=== PATIENT | male | born 1960 | race Hispanic/Latino ===

== ENCOUNTER 2018-06-17 16:48 | Inpatient (IN) | payer OTHER ==
[~2018-06-17] VITALS: Ht 172.7 cm; Wt 66.2 kg
--- OUTSIDE RECORDS SUMMARY | 2018-06-17 16:51 | XMS REPORT | Encounter Summary ---
Author Organization Unknown Address [address] [place] [address] Phone [phone] Care Team Providers Care Playground Director Name Role Phone Dr. Kiran Hernandez 3 [phone] Reason for Visit fatigue; shortness of breath; swelling/edema; sleep problems Instructions 1. Acute exacerbation of chronic congestive heart failure 2. Anasarca 3. Type II diabetes mellitus uncontrolled 4. Hypertensive disorder Discussion Note: None recorded. Patient educational handouts: No information available. Plan of Care Reminders Provider Appointments None recorded. Lab None recorded. Referral None recorded. Procedures None recorded. Surgeries None recorded. Imaging None recorded. Medications Name Start Date amlodipine 10 mg tablet Take 1 tablet every day by oral route. lisinopril 10 mg tablet Take 1 tablet every day by oral route. lisinopril 20 mg-hydrochlorothiazide 25 mg tablet Take 1 tablet every day by oral route. metoprolol succinate ER 25 mg tablet,extended release 24 hr Take 1 tablet every day by oral route. Medications Administered None recorded. Vitals Height Weight BMI Blood Pressure 5 ft 8.3 in 160.8 lbs 24.2 kg/m2 (1) 170/94 mm[Hg] (2) 186/104 mm[Hg] Lab Results None recorded. Allergies Code Code System Name Reaction Severity Status Onset NKDA Problems Name Status Onset Date Source Type II Diabetes Mellitus Uncontrolled Active 06/17/2018 Hypertensive Disorder Active 06/17/2018 Congestive Heart Failure Active 06/17/2018 History of Alcohol Abuse Active 06/17/2018 Procedures Date Name Performed by Amputation of Toe Information not available Vaccine List None recorded. Social History Smoking Status Former Smoker Past Encounters 06/17/2018 Acute Exacerbation of Chronic Congestive Heart Failure; Anasarca; Type II Diabetes Mellitus Uncontrolled; Hypertensive Disorder Kiran Garduno MD: [address] [place] [address], Ph. History of Present Illness Note:Coming to establish care. Hx of HTN, not taking meds since 1 year ago. Complaining of SOB sitting, with activity and lying down. Concomitantly, nocturnal cough, fatigue, LE edema, abdominal distention and lightheadedness. Hx of dm, not taking meds. Review of Systems Comprehensive General Adult ROS Reported By: Patient Constitutional: Constitutional: no fever Eyes: Eyes: no vision change Cardiovascular: Cardiovascular: no chest pain, no arm pain on exertion, no palpitations, shortness of breath when walking, shortness of breath when lying down, lightheadedness Respiratory: Respiratory: no wheezing, cough Gastrointestinal: Gastrointestinal: no abdominal pain, no nausea, no vomiting, no constipation, no diarrhea Musculoskeletal: Musculoskeletal: swelling in the extremities Neurologic: Neurologic: no loss of consciousness, no headaches Endocrine: Endocrine: fatigue Physical Exam General Adult Exam (male) Reported By: Patient Constitutional: General Appearance: ; Generalized pallor. Level of Distress: mild distress. Ambulation: ambulating normally Eyes: Lids and Conjunctivae: non-injected, no discharge. EOM: EOMI ENMT: Nose: no sinus tenderness. Lips, Teeth, and Gums: no mouth or lip ulcers. Oropharynx: moist mucous membranes Neck: Neck: supple, trachea midline. Thyroid: no enlargement, non-tender Lungs: Auscultation: decreased breath sounds Cardiovascular: Heart Auscultation: RRR, normal S1, normal S2, no murmurs, gallop. Neck vessels: no carotid bruits. Pulses including femoral / pedal: diminished Abdomen: Inspection and Palpation: soft, no tenderness, no guarding, distended Musculoskeletal:: Extremities: edema Neurologic: Gait and Station: normal gait
--- OUTSIDE RECORDS SUMMARY | 2018-06-17 16:51 | XMS REPORT | Clinical Summary ---
Author Author [facility] Organization [facility] Address Unknown Phone Unavailable Care Team Providers Care Psychiatric Technician Assistant Name Role Phone Eber Bryant MD PCP Allergies Comments Active Allergy Reactions Severity Noted Date No Known Drug Allergies 11/10/2015 Medications No known medications Active Problems Problem Noted Date Diabetic foot ulcer 09/24/2015 Chronic osteomyelitis of right foot 09/24/2015 Diabetes mellitus type II, controlled 09/24/2015 Cellulitis of foot without toes, right 09/24/2015 Immunizations Name Dates Previously Given Next Due Pneumococcal Conjugate 10/03/2015 13-Valent Family History Medical History Relation Name Comments Diabetes type II Brother Hypertension Brother Diabetes type II Mother Relation Name Status Comments Brother Mother Social History Date Tobacco Use Types Packs/Day Years Used Never Smoker Alcohol Use Drinks/Week oz/Week Comments Yes 3-4 Cans of 1.8 - 2.4 beer Sex Assigned at Date Recorded Not on file Industry Job Start Date Occupation Not on file Not on file Not on file Travel End Travel History Travel Start No recent travel history available. Last Filed Vital Signs Not on file Plan of Treatment Health Maintenance Due Date Last Done Comments DIABETIC RETINAL EYE EXAM 1960 DIABETIC FOOT EXAM 12/04/1969 COLON CANCER SCREENING 12/04/2009 SHINGLES VACCINES (1 of 12/04/2009 2) INFLUENZA VACCINE 11/28/2017 Results Not on fileafter 06/16/2017 Insurance Payer Benefit Subscriber ID Type Phone Address Plan / Group BCBS EXCHANGE BLUE xxxxxxxxxxxx Exchange ADVANTAGE HMO EXCH Liability Advance Directives Patient has advance care planning documents, and code status on file. For more i nformation, please contact: Keith Arteaga [address] [place] [address] Date Inactivated Comments Code Status Date Activated 10/03/2015 5:05 PM Full Code 09/24/2015 11:04 PM Code Status decision reached by: Patient
--- OUTSIDE RECORDS SUMMARY | 2018-06-17 16:51 | XMS REPORT | Clinical Summary ---
Author Author [facility] Organization [facility] Address Unknown Phone Unavailable Care Team Providers Care Electric Brain Wave Equipment Mechanic Name Role Phone Eber Bryant PCP Unavailable Allergies Not on File Medications Not on file Active Problems Not on file Social History Date Tobacco Use Types Packs/Day Years Used Never Assessed Sex Assigned at Date Recorded Not on file Industry Job Start Date Occupation Not on file Not on file Not on file Travel End Travel History Travel Start No recent travel history available. Last Filed Vital Signs Not on file Plan of Treatment Not on file Results Not on fileafter 06/16/2017 Insurance Payer Benefit Subscriber ID Type Phone Address Plan / Group BLUE CROSS/BLUE SHIELD BCBS ADV xxxxxxxxxxxx [phone] [address] [place] [address] EXCHANGE
[2018-06-17 19:12] LABS: BILIRUBIN,URINE NEGATIVE (NEGATIVE); CLARITY,URINE SL CLOUDY (CLEAR); COLOR,URINE YELLOW (YELLOW); KETONES,URINE NEGATIVE (NEGATIVE); LEUKOCYTE ESTERASE ,URINE NEGATIVE (NEGATIVE); NITRITE,URINE NEGATIVE (NEGATIVE); PROTEIN,URINE DIPSTICK 2+ (NEGATIVE); URINE UROBILINOGEN 0.2 mg/dL (0.2 - 1)
[2018-06-17 19:29] LABS: BACTERIA,URINE MODERATE /HPF; EPITHELIAL CELLS,URINE MODERATE /LPF
[2018-06-17 19:30] LABS: AMORPHOUS SEDIMENT,URINE MANY (FEW)
--- NOTE | 2018-06-17 20:44 | Diagnostic Imaging Report ---
EXAMINATION: CHEST SINGLE (PORTABLE) INDICATION: High blood sugar. COMPARISON: None FINDINGS: AP view TUBES and LINES: None. LUNGS: Lungs are moderately inflated. Bibasilar atelectasis and/or consolidation. There is perihilar interstitial opacities, consistent with interstitial edema. PLEURA: Moderate right and small left pleural effusion. HEART AND MEDIASTINUM: The cardiomediastinal silhouette is unremarkable. BONES AND SOFT TISSUES: No acute osseous lesion. Soft tissues are unremarkable. UPPER ABDOMEN: No free air under the diaphragm. IMPRESSION: Fluid overload with central pulmonary venous congestion and small bilateral pleural effusions, right greater than left. Bibasilar atelectasis and/or consolidation. Signed by: Dr. Alon Anderson M.D. on 06/17/2018 8:40 PM
[2018-06-17] MEDS ORDERED: FUROSEMIDE INJ 10 MG/ML 4 ML VIAL IV ONE (21:45)
[2018-06-17 22:08] LABS: BASOPHILS # (AUTO) 0.1 (0.0-0.1); EOSINOPHILS # (AUTO) 0.1 (0.0-0.4); EOSINOPHILS % 2.5 % (0.0-6.0); HEMATOCRIT 29.8 % (38.2-49.6); HEMOGLOBIN 9.6 g/dL (14.0-18.0); LYMPHOCYTES # (AUTO) 0.9 (1.0-3.2); MEAN CORPUSCULAR HEMOGLOBIN 28.8 pg (28-32); MEAN CORPUSCULAR HGB CONC 32.2 g/dL (31-35); MEAN CORPUSCULAR VOLUME 89.5 fL (81-99); MONOCYTES # (AUTO) 0.4 (0.2-0.8); MONOCYTES % 7.4 % (4.4-11.3); NEUTROPHILS # (AUTO) 3.7 (2.1-6.9); NEUTROPHILS % 71.7 % (38.7-80.0); PLATELET COUNT 174 x10e3/uL (140-360); RED BLOOD COUNT 3.33 x10e6/uL (4.3-5.7); RED CELL DISTRIBUTION WIDTH 14.8 % (11.7-14.4)
[2018-06-17 22:16] LABS: INR 0.96; PROTHROMBIN TIME 13.7 seconds (11.9-14.5)
[2018-06-17 22:17] LABS: PARTIAL THROMBOPLASTIN TIME 35.6 seconds (23.8-35.5)
[2018-06-17 22:24] LABS: ALBUMIN 2.8 g/dL (3.5-5.0); ALBUMIN/GLOBULIN RATIO 0.8 (0.8-2.0); ANION GAP 21.3 mmol/L (8-16); CREATININE, SERUM 9.78 mg/dL (0.72-1.25); POTASSIUM 4.3 mmol/L (3.5-5.1)
[2018-06-17 22:28] LABS: CALCIUM 6.8 mg/dL (8.4-10.2)
[2018-06-17] MEDS ORDERED: HYDRALAZINE HCL 20 MG/ML VIAL IV STA (22:29)
[2018-06-17 22:30] LABS: CREATINE KINASE MB 7.3 ng/mL (0-5.0)
[2018-06-17] MEDS ORDERED: FUROSEMIDE INJ 100 MG in SODIUM CHLORIDE 0.9% 100 ML 90 ML IV SCH (23:00)
[2018-06-17] MEDS ORDERED: ONDANSETRON HCL INJ 2MG/ML 2ML 2 MG/ML VIAL IV PRN (23:00)
[2018-06-17] MEDS ORDERED: DEXTROSE 50% SYRINGE 50 ML IV PRN (23:00)
--- OUTSIDE RECORDS SUMMARY | 2018-06-17 23:02 | XMS REPORT | Clinical Summary ---
Author Author [facility] Organization [facility] Address Unknown Phone Unavailable Care Team Providers Care Data Systems Analyst Name Role Phone Eber Bryant MD PCP [...] more i nformation, please contact: Keith Arteaga [address] [place] [address] Date Inactivated Comments Code Status Date Activated 10/03/2015 5:05 PM Full Code 09/24/2015 11:04 PM Code Status decision reached by: Patient
--- OUTSIDE RECORDS SUMMARY | 2018-06-17 23:02 | XMS REPORT | Clinical Summary ---
Author Author [facility] Organization [facility] Address Unknown Phone Unavailable Care Team Providers Care Youth Officer Name Role Phone Eber Bryant PCP Unavailable [...] Group BLUE CROSS/BLUE SHIELD BCBS ADV xxxxxxxxxxxx [phone] [address] [place] [address] EXCHANGE
--- OUTSIDE RECORDS SUMMARY | 2018-06-17 23:02 | XMS REPORT ---
Author Author [facility] Address Unknown Phone Unavailable Care Team Providers Care General Office Clerk Name Role Phone [place] FRIEND Unavailable Unavailable Problems This patient has no known problems. Allergies, Adverse Reactions, Alerts This patient has no known allergies or adverse reactions. Medications This patient has no known medications. Results Test Description Test Time Test Comments Text Results Atomic Results Result Comments CHEST SINGLE (PORTABLE) 2018-06-17 20:40:00 [facility] [address] [address] Patient Name: JOSHUA CACERES MR #: [id number] : 1960 Age/Sex: 57/M Req #: [id number] Adm Physician: Ordered by: DANYELLE ALVAREZ SEMICONDUCTOR PACKAGE SYMBOL STAMPER Report #: [id number] Location: ER Room/Bed: Procedure: [id number] DX/CHEST SINGLE (PORTABLE) Exam Date: 06/17/18 Exam Time: 2022 REPORT STATUS: Signed EXAMINATION: CHEST SINGLE (PORTABLE) INDICATI ON: High blood sugar. COMPARISON: None FINDINGS: AP view TUBES and LINES: None. LUNGS: Lungs are moderately inflated. Bibasilar atelectasis and/or consolidation. There is perihilar interstitial opacities, consistent with interstitial edema. PLEURA: Moderate right and small left pleural effusion. HEART AND MEDIASTINUM: The cardiomediastinal silhouette is unremarkable. BONES AND SOFT TISSUES: No acute osseous lesion. Soft tissues are unremarkable. UPPER ABDOMEN: No free air under the diaphragm. IMPRESSION: Fluid overload with central pulmonary venous congestion and small bilateral pleural effusions, right greater than left. Bibasilar atelectasis and/or consolidation. Signed by: Dr. Catrina Anderson M.D. on 06/17/2018 8:40 PM Dictated By: CATRINA ANDERSON MD 39 Transcribed By: LOREE on 06/17/182039 COPY TO: DANYELLE ALVAREZ SEMICONDUCTOR PACKAGE SYMBOL STAMPER
[2018-06-17] MEDS ORDERED: FUROSEMIDE INJ 10 MG/ML 2 ML VIAL ONE (23:12)
[2018-06-17] MEDS ORDERED: FUROSEMIDE INJ 10 MG/ML 4 ML VIAL ONE (23:12)
[2018-06-17] MEDS ORDERED: SODIUM CHLORIDE 0.9% 100 ML ONE (23:12)
[2018-06-18] MEDS ORDERED: no home meds (02:23)
[2018-06-18] MEDS: HYDRALAZINE HCL 20 MG/ML VIAL IV PRN ×2 (02:30→12:52)
[2018-06-18] MEDS ORDERED: FUROSEMIDE INJ 10 MG/ML 4 ML VIAL ONE (02:34)
[2018-06-18] MEDS ORDERED: SODIUM CHLORIDE 0.9% 100 ML ONE (02:34)
[2018-06-18] MEDS ORDERED: FUROSEMIDE INJ 10 MG/ML 2 ML VIAL ONE (02:34)
[2018-06-18 05:14] LABS: BASOPHILS % 0.7 % (0.0-1.0); EOSINOPHILS # (AUTO) 0.1 (0.0-0.4); HEMATOCRIT 26.9 % (38.2-49.6); HEMOGLOBIN 8.8 g/dL (14.0-18.0); LYMPHOCYTES # (AUTO) 0.5 (1.0-3.2); LYMPHOCYTES % 12.1 % (18.0-39.1); MEAN CORPUSCULAR HGB CONC 32.7 g/dL (31-35); MEAN CORPUSCULAR VOLUME 88.8 fL (81-99); MONOCYTES # (AUTO) 0.3 (0.2-0.8); MONOCYTES % 7.6 % (4.4-11.3); NEUTROPHILS # (AUTO) 3.5 (2.1-6.9); NEUTROPHILS % 77.4 % (38.7-80.0); PLATELET COUNT 161 x10e3/uL (140-360); RED BLOOD COUNT 3.03 x10e6/uL (4.3-5.7); RED CELL DISTRIBUTION WIDTH 14.4 % (11.7-14.4)
[2018-06-18 05:29] LABS: CALCIUM IONIZED 0.9 mmol/L (1.09-1.30)
[2018-06-18 05:47] LABS: ALBUMIN 2.5 g/dL (3.5-5.0); ALBUMIN/GLOBULIN RATIO 0.9 (0.8-2.0); ANION GAP 19.3 mmol/L (8-16); CREATININE, SERUM 9.75 mg/dL (0.72-1.25); POTASSIUM 4.3 mmol/L (3.5-5.1)
[2018-06-18 05:49] LABS: CALCIUM 6.6 mg/dL (8.4-10.2)
--- NOTE | 2018-06-18 06:48 | NUR ---
RECEIVED REPORT FROM OFF GOING NURSE. PATIENT IN ROOM IN BED, RESTING QUIETLY WITH EYES CLOSED. EASILY ARROUSED TO NAME. ESCALANTE IN PLACE DRAINING TO BEDSIDE CONTAINER. IV FLUIDS ORDERED. NO S/S OF ACUTE DISTRESS. NO C/O PAIN. PENDING ROOM ASSIGNEMNT. WILL CONTINUE TO MONITOR.
[2018-06-18] MEDS: INSULIN REGULAR, HUMAN 100 UNIT/1 ML 3ML VIAL SQ SCH ×4 (07:42→21:35)
[2018-06-18] MEDS: CLONIDINE HCL 0.1 MG TAB PO SCH ×3 (08:21→21:35)
--- NOTE | 2018-06-18 10:21 | NUR ---
consent for tunneled dialysis catheter signed and placed in chart. report called to receiving nurse for room 112. spoke with labor arbitrator hearing office nurse, they will be here to last picker patient for dialysis cath placement then transport to room 112.
[2018-06-18] MEDS: FUROSEMIDE INJ 100 MG in SODIUM CHLORIDE 0.9% 100 ML 90 ML IV SCH ×2 (10:39→15:34)
[2018-06-18] MEDS ORDERED: HEPARIN SOD (PORCINE) 1000 UNIT/ML 30ML ONE (11:16)
[2018-06-18] MEDS ORDERED: IOPAMIDOL 300MG/ML 50ML INFUS..BTL IV ONE (11:17)
[2018-06-18] MEDS ORDERED: SODIUM CHLORIDE 0.9% 500ML 500 ML ONE (11:17)
[2018-06-18] MEDS ORDERED: MIDAZOLAM HCL 2 MG/2 ML VIAL ONE (11:22)
[2018-06-18] MEDS ORDERED: FENTANYL CITRATE/PF 100MCG/2 ML INJ ONE (11:22)
--- NOTE | 2018-06-18 12:45 | NUR ---
Received patient from optical laboratory manager. Patient A/O X3, ukrainian speaking. Even respirations on RA. Bowel sounds active, skin intact. 2+ Pitting edema BLE. Echavarria in place with pale yellow urine. Right AC 20 gauge IV with Lasix drip 20 mls/hr. Patient is ambulatory with standby assist. Call light in reach, will continue to monitor.
[2018-06-18 12:57] VITALS: BP 167/85
[2018-06-18 12:59] VITALS: BP 167/85
[2018-06-18 13:04] VITALS: BP 167/85
--- NOTE | 2018-06-18 14:43 | Diagnostic Imaging Report ---
PROCEDURE: PLACEMENT OF RIGHT IJ TUNNELED HEMODIALYSIS CATHETER WITH ULTRASOUND AND FLUOROSCOPIC GUIDANCE INDICATION: Need for dialysis access. OPERATORS: Amber Mitchell MD RADIATION EXPOSURE: Fluoroscopy Time: 0.6 minutes Dose area product (DAP): 66.5 cGycm2 CONSENT: The patient was informed of the nature of the proposed procedure. The purposes, alternatives, risks, and benefits were explained and discussed. All questions were answered and written consent was obtained. ANESTHESIA: Moderate sedation. Continuous hemodynamic monitoring was performing by interventional nursing MEDICATIONS: 15 cc of 1% subcutaneous lidocaine 50 mcg IV Fentanyl and 1 mg IV Versed per nursing administration records. TECHNIQUE: The patient was brought to the angiography suite, and the right neck and upper chest were prepped and draped in standard sterile fashion. All elements of maximal sterile barrier technique were followed including cap and mask, sterile gown, sterile gloves, large sterile sheet, hand hygiene and 2% chlorhexidine for cutaneous antisepsis. Pre-procedure time-out confirmed the patient identity and the procedure to be performed. Ultrasound demonstrated that the right internal jugular was patent and compressible. Using standard sterile technique, 1 % lidocaine was administered subcutaneously for local anesthesia. Under continuous sonographic guidance, the right internal jugular vein was accessed using a 21 G micropuncture needle. Permanent ultrasound image was stored. The access needle was exchanged for a 5 Fr micropuncture sheath. An 0.035'' Amplatz wire was advanced into the IVC to secure access. The venotomy site was dilated. Appropriate measurements were made using the 7 Fr dilator. Attention was then turned towards the subcutaneous tunnel. After administration of 1% lidocaine subcutaneously for local anesthesia, a 16 Fr x 23 cm Hemosplit hemodialysis catheter was tunneled in an antegrade direction from skin exit site to venotomy site. The dilator was exchanged for the peel-away sheath under direct fluoroscopic visualization. The catheter was then advanced through the peel-away sheath into the superior vena cava. After confirming appropriate position with fluoroscopy the catheter tip in the proximal right atrium, the peel-away sheath was removed, and both lumens aspirated, check flushed, and terminally flushed with 2 cc each of heparin solution (1000 units/cc of heparin). The catheter was secured using 3-0 Ethilon pursestring suture at the catheter exit site and also 3-0 Ethilon sutures at the catheter hub. The venotomy site was closed with subcutaneous Vicryl suture, Dermabond, and steri-strips. Sterile dressings were applied. The patient tolerated the procedure well. FINDINGS: 1. Patent and compressible right IJV accessed with continuous ultrasound guidance. 2. Placement of 16 Fr x 23 cm tunneled right IJV hemodialysis catheter. 3. Post-procedure intraprocedural chest radiograph showed the catheter tip in the proximal right atrium, no kinks along course of catheter, and no pneumothorax. Catheter is ready for use. IMPRESSION: Placement of right IJ tunneled hemodialysis catheter. Catheter is ready for immediate use. Signed by: Dr. Amber Mitchell MD on 06/18/2018 2:40 PM
[2018-06-18 16:00] VITALS: BP 150/79
[2018-06-18 16:52] LABS: % IRON SATURATION 6 % (15-50); IRON 17 ug/dL (65-175); TOTAL IRON BINDING CAPACITY 309 ug/dL (261-478); TRANSFERRIN 221 mg/dL (174-364)
--- NOTE | 2018-06-18 17:46 | NUR ---
Patient left for CT.
[2018-06-18] MEDS: SODIUM BICARBONATE 650 MG TAB PO SCH (18:28)
[2018-06-18] MEDS: FUROSEMIDE 40 MG TAB PO SCH (18:28)
--- NOTE | 2018-06-18 18:28 | Diagnostic Imaging Report ---
EXAM: CT Chest WITHOUT contrast INDICATION: ^SOB/PLEURAL EFFUSION COMPARISON: Chest x-ray 06/17/2018. Tunneled dialysis catheter replacement 06/18/2018. TECHNIQUE: Chest was scanned utilizing a multidetector helical scanner from the lung apex through the level of the adrenal glands without administration of IV contrast. Absence of intravenous contrast decreases sensitivity for detection of lymphadenopathy and vascular pathology. Coronal and sagittal reformations were obtained. Routine protocol was performed. IV CONTRAST: None COMPLICATIONS: None RADIATION DOSE: Total DLP: 644.97 mGy*cm Estimated effective dose: (DLP x 0.014 x size factor) mSv CTDIvol has been reviewed. It is below the limits set by the Radiation Protocol Committee (RPC). FINDINGS: LINES/ TUBES: Right IJ dialysis catheter. LUNGS AND AIRWAYS: Bilateral lower lobe atelectasis. Mild involvement of the lingula and right middle lobe. Airways are normal. PLEURA: A large right and moderate left simple pleural effusions. HEART AND MEDIASTINUM: The thyroid gland is normal. No mediastinal, hilar or axillary lymphadenopathy. The heart is normal in size. There is no pericardial effusion. There are mild atherosclerotic calcifications in the aorta and coronary arteries. Mild air in the right atrium. UPPER ABDOMEN: The esophagus and stomach is distended with food products. Questionable gallstones. Otherwise, upper abdomen is unremarkable. BONES: The visualized bony thorax is within normal limits. SOFT TISSUES: Unremarkable. IMPRESSION: 1. Large right and moderate left pleural effusions with associated atelectasis. 2. Esophagus and stomach are distended with food products. 3. Mild air in the right atrium, likely related to recent line placement. Signed by: Dr. Alon Anderson M.D. on 06/18/2018 6:25 PM
[2018-06-18] MEDS: CEFTRIAXONE SOD 1 GM/NS 50 ML 50 ML IV SCH (18:51)
[2018-06-18 20:00] VITALS: BP 149/81
[2018-06-18 21:35] VITALS: BP 149/81
[2018-06-19] VITALS (7 sets, daily range): BP systolic 142–191; BP diastolic 70–92
--- NOTE | 2018-06-19 00:27 | Consultation ---
DATE OF CONSULTATION: 06/18/2018 HISTORY OF PRESENT ILLNESS: This is a 57-year-old gentleman who recently started seeing Dr. Hancock, sent in here because of worsening lower extremity swelling and abnormal kidney function. The patient has diabetes for at least 10 years or more. According to him, has a history of hypertension. Denies any history of BPH or kidney stone disease. He denies any drug allergies. Denies taking any regular pain medications. 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 He does not smoke or drink. He has a strong family history of diabetes. Here, laboratory test shows evidence of anemia, hemoglobin 8.8, potassium 4.3, bicarbonate 12, calcium 6.6, BNP more than 5000 with a bicarbonate of 12. Urinalysis shows dip stick positive protein, 11-20 rbc, 0 wbc. CURRENT MEDICATIONS: The patient is on ceftriaxone 1 g q.24 hours. He received Lasix injection, on clonidine 0.1 mg p.o. t.i.d. He is on hydralazine p.r.n. PHYSICAL EXAMINATION: GENERAL: Awake, alert, lying supine, in no apparent distress. VITAL SIGNS: Blood pressure 165/79, pulse rate 80, respiratory rate 14, and afebrile. HEAD AND NECK: Cornea clear. Mucosa moist. LUNGS: Decreased air entry in both bases with impaired percussion notes and scattered rales. HEART: S1 and S2 audible. Soft 2-3/6 ejection systolic murmur heard over left sternal border. EXTREMITIES: Lower extremity examination shows 2+ edema. IMPRESSION AND PLAN: Advance kidney failure, now end-stage renal disease, evidence of congestive heart failure, underlying diabetic hypertensive nephropathy status post tunneled dialysis catheter placement. Renal replacement therapy discussed with the patient. He agrees to start dialysis. Son is present at bedside. He agrees as well. Bedside nurse present at bedside. We will have a case management consult. We will start p.o. bicarbonate and Lasix. We will ultrafilter on dialysis. He has had severe hypocalcemia, we will obtain intact PTH levels, start Tums and Rocaltrol. The patient's blood test shows all the stigmata of chronic kidney disease. We will also obtain iron profile, hepatitis B, phosphorus level. Further recommendations to follow. MD MICAH Graff/BRIT /[id number]
--- NOTE | 2018-06-19 01:12 | History and Physical ---
CHIEF COMPLAINT: Pulmonary edema, end-stage renal disease, required dialysis and initiation of dialysis. HISTORY: This is a 57-year-old male with diabetes, chronic kidney disease now end stage, hypertension, and the patient also has peripheral vascular disease with a right fifth toe amputation previously, came in with pulmonary edema. Apparently, he stopped all his medications for quite sometime and now came in with increasing shortness of breath. The patient workup done in emergency room preliminarily, found that he has fluid overload with central venous pulmonary congestion and small bilateral effusion as well. The patient is admitted for further evaluation and consultation with Dr. Gerson Rivas for initiation of dialysis. His BUN and creatinine were 71 and 9.8 respectively. The patient also has low calcium level. His BNP is greater than 5000. PAST MEDICAL HISTORY: Diabetes type 2, hypertension, chronic kidney disease now end stage, and peripheral vascular disease. The patient is noncompliant. PAST SURGICAL HISTORY: As above. SOCIAL HISTORY: The patient does not smoke or use alcohol. No recreational drugs. ALLERGIES: NO KNOWN ALLERGIES. HOME MEDICATIONS: None. PHYSICAL EXAMINATION: VITAL SIGNS: Temperature is 98, blood pressure 167/85, pulse rate 73, and respirations 22. GENERAL: The patient HEENT: Normocephalic and atraumatic. Anicteric. NECK: Supple grossly. PULMONARY: Diminished breath sounds bilaterally with rales at the bases. CARDIOVASCULAR: S1 and S2. Regular rate and rhythm. ABDOMEN: Soft, nontender, and nondistended. EXTREMITIES: There is 1+ edema. NEUROLOGIC: No focal deficit. LABORATORY DATA: Sodium is 137, potassium 4.3, chloride 107, bicarb 13, BUN is 71, creatinine , glucose is 94, and calcium is 6.8. AST 10, ALT 13, and alkaline phosphatase 105. Troponin 0.065. BNP is greater than 5000. Albumin is 2.8. WBC is 5.1, hemoglobin is 8.8, hematocrit 26.9, and platelets are 161. Urinalysis, wbc's none, moderate bacteria, 2+ protein, 1+ blood, and negative leukocyte esterase. Coagulation, INR and PTT is 35.6. Chest x-ray, pulmonary edema, bilateral pleural effusion. IMPRESSION: 1. Bilateral pleural effusion with pulmonary edema and fluid overload secondary to end-stage renal disease. 2. End-stage renal disease with BUN and creatinine of 71 and respectively. The patient is also anemic. The patient will need dialysis. PLAN: Consultation with Dr. Gerson Rivas. Echocardiogram. We will consult for pleural effusion. The patient will require dialysis on this admission. We will also subsequently consult pillowcase turner for dialysis placement. MD HOWARD Silva/HAIL /[id number]
[2018-06-19 06:05] LABS: BASOPHILS % 0.7 % (0.0-1.0); EOSINOPHILS # (AUTO) 0.2 (0.0-0.4); EOSINOPHILS % 4.1 % (0.0-6.0); HEMOGLOBIN 7.7 g/dL (14.0-18.0); LYMPHOCYTES # (AUTO) 0.7 (1.0-3.2); LYMPHOCYTES % 15.6 % (18.0-39.1); MEAN CORPUSCULAR HEMOGLOBIN 28.8 pg (28-32); MEAN CORPUSCULAR HGB CONC 32.1 g/dL (31-35); MEAN CORPUSCULAR VOLUME 89.9 fL (81-99); MONOCYTES # (AUTO) 0.4 (0.2-0.8); MONOCYTES % 8.8 % (4.4-11.3); NEUTROPHILS # (AUTO) 3.1 (2.1-6.9); NEUTROPHILS % 70.3 % (38.7-80.0); PLATELET COUNT 144 x10e3/uL (140-360); RED BLOOD COUNT 2.67 x10e6/uL (4.3-5.7); RED CELL DISTRIBUTION WIDTH 14.8 % (11.7-14.4)
[2018-06-19] MEDS: FUROSEMIDE 40 MG TAB PO SCH ×2 (06:22→17:11)
[2018-06-19 06:30] LABS: INR 1.06; PROTHROMBIN TIME 14.8 seconds (11.9-14.5)
[2018-06-19 06:42] LABS: ALBUMIN 2.2 g/dL (3.5-5.0); ALBUMIN/GLOBULIN RATIO 0.9 (0.8-2.0); ANION GAP 17.6 mmol/L (8-16); CREATININE, SERUM 9.67 mg/dL (0.72-1.25); POTASSIUM 4.6 mmol/L (3.5-5.1)
[2018-06-19 06:57] LABS: CALCIUM 6.7 mg/dL (8.4-10.2)
--- NOTE | 2018-06-19 07:12 | Diagnostic Imaging Report ---
EXAMINATION: PA and lateral views of the chest. COMPARISON: CT chest 06/18/2018 CLINICAL HISTORY: Evaluate pleural effusions DISCUSSION: Interval decrease in now moderate right and small left pleural effusions relative to 06/18/2018. Stable position of right IJ tunneled hemodialysis catheter with the tip projecting over the upper right atrium. No new consolidations. No pneumothorax. Cardiomediastinal contour and pulmonary venous congestion are unchanged. No acute osseous abnormalities. IMPRESSION: Decreased pleural effusions relative to CT chest 06/18/2018. Persistent pulmonary venous congestion. Signed by: Dr. John Berrios M.D. on 06/19/2018 7:09 AM
--- NOTE | 2018-06-19 07:25 | NUR ---
CALLED [phone] VAHID ORTIZ, REPORTED PATIENT'S LOW CALCIUM, ANSWERING SERVICE STATED, "IF DOES CALL BACK IN 30 MINUTES TO CALL BACK."
[2018-06-19] MEDS: INSULIN REGULAR, HUMAN 100 UNIT/1 ML 3ML VIAL SQ SCH ×4 (07:30→21:13)
[2018-06-19] MEDS ORDERED: SODIUM CHLORIDE 0.9% 1000ML 2,000 ML ONE (07:32)
[2018-06-19] MEDS ORDERED: HEPARIN SOD (PORCINE) 1000 UNIT/ML SDV IV PRN (07:45)
[2018-06-19] MEDS ORDERED: SODIUM CHLORIDE 0.9% 1000ML 2,000 ML IV PRN (07:45)
[2018-06-19] MEDS ORDERED: MANNITOL 25% 12.5GM/50 ML VIAL IV PRN (08:15)
[2018-06-19] MEDS: CLONIDINE HCL 0.1 MG TAB PO SCH ×3 (10:06→21:12)
[2018-06-19] MEDS: SODIUM BICARBONATE 650 MG TAB PO SCH ×2 (10:06→17:11)
--- NOTE | 2018-06-19 12:36 | NUR ---
CASE MANAGEMENT ASSESSMENT Air Battle Manager to bedside to discuss plan of care with patient/family. CM/SW role and care transitions discussed. Anticipated discharge plan discussed along with duration of care. CM/SW discussed patients right to make decisions in care. CM/SW work hours given. Patient lives: alone Admit/Transfer: thru ED; sent from his PCP office Hospital/ER visits since last admit: states was last hospitalized 2 years ago POA/Emergency contact: Billie Portillo [phone] Current/Previous Home Health: none PCP/Follow-up Care: Dr. Kiran Hernandez - PCP; advised pt to follow up with MD within 7 days of discharge Current/Previous DME: none Medications (referring to index hospitalization or the first time you were in the hospital) a. Were changes made in your medications when you were in the hospital on [index hospitalization]? n/a b. Did you understand the changes? n/a c. Were you able to obtain your new medications right away? n/a d. Were you able to take your medications like the doctor wanted you to? n/a e. Did the hospital give you an accurate, easy to understand list of medications when you left? 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 Name and number was also written on the patients whiteboard. Patient verbalized understanding of discussion. CM will follow-up with ongoing discharge and transition of care needs.
--- NOTE | 2018-06-19 13:12 | NUR ---
PT SIGNED CHOICE FOR [facility] FILED IN CHART AND FAXING TO ADMISSION LINE.
--- NOTE | 2018-06-19 13:17 | NUR ---
NOTIFIED DR. FAUSTIN THAT PT HAS A PRELIMINARY ECHOCARDIOGRAM OF 35%, AND ASKED IF HE WANTED TO CONSULT ANYONE, HE STATED "NO".
--- NOTE | 2018-06-19 13:26 | NUR ---
SPOKE WITH ROXIE AT [facility], SHE IS HOLDING A CHAIR FOR PT. WILL SEND CONFIRMATION WHEN RUN BENEFITS.
--- NOTE | 2018-06-19 16:17 | Diagnostic Imaging Report ---
PROCEDURE: CHEST XRAY POST PROCEDURE COMPARISON: [facility], DX, CHEST 2 VIEWS, 06/19/2018, 6:29. INDICATIONS: POST THORACENTESIS FINDINGS: LUNGS: Bibasilar opacities likely secondary to atelectasis. PLEURA: Tiny right-sided apical pneumothorax. Significant decrease in the size of the right pleural effusion. There is a mild-moderate left pleural effusion. HEART & MEDIASTINUM: The heart is within normal size-limits. Acceptable position of the tunneled hemodialysis catheter. BONES & SOFT TISSUES: No acute findings. The patient's nurse, Tray Boyd was informed of these findings at the time of interpretation. CONCLUSION: 1. Significant decrease in size of the right pleural effusion; status post thoracentesis. 2. Tiny right apical pneumothorax; followup chest x-ray in 4 hours recommended. 3. Bibasilar opacities likely due to atelectasis. Mirza Foreman D.O. Dictated by: Mirza Foreman D.O. on 06/19/2018 at 16:29 Electronically approved by: Mirza Foreman D.O. on 06/19/2018 at 16:29
--- NOTE | 2018-06-19 16:28 | Diagnostic Imaging Report ---
PROCEDURE: ULTRASOUND GUIDED THORACENTESIS COMPARISON: None. INDICATIONS: Bilateral pleural effusions FINDINGS: After informed consent was obtained, the patient was placed in the sitting position and preliminary ultrasound of the posterior chest identified a safe route into the right pleural effusion. The overlying skin was prepped and draped in usual sterile fashion. Lidocaine 1% was used for local anesthesia. Under ultrasound guidance, a 5 Fr centesis needle was advanced into the pleural fluid and 1750 cc were aspirated. The patient tolerated the procedure well and there were no immediate post-procedural complications. A post-thoracentesis chest radiograph will be obtained. CONCLUSION: 1. Ultrasound-guided right thoracentesis with removal of 1750 cc of fluid. 2. Post thoracentesis chest x-ray has been ordered. 3. Specimen was sent to the laboratory for analysis. Mirza Foreman D.O. Dictated by: Mirza Foreman D.O. on 06/19/2018 at 16:40 Electronically approved by: Mirza Foreman D.O. on 06/19/2018 at 16:40
--- NOTE | 2018-06-19 16:46 | Diagnostic Imaging Report ---
Renal ultrasound dated 06/19/2018 at 3:57 PM History: Renal failure Discussion: Transverse and longitudinal images of the kidneys were obtained. There is no evidence of hydronephrosis, mass or renal calculus. The right kidney measures 9.2 x 4.1 x 4.2 cm. The right renal cortex measures 1.5 cm. The left kidney measures 9.4 x 4.9 x 4.2 cm. The left renal cortex measures 1.6 cm. There is normal renal echogenicity. The urinary bladder shows a Echavarria catheter in place. There is no evidence of free fluid. IMPRESSION: Small bilateral kidneys without evidence of hydronephrosis. Signed by: Dr. Mirza Foreman DO on 06/19/2018 4:42 PM
[2018-06-19] MEDS: CEFTRIAXONE SOD 1 GM/NS 50 ML 50 ML IV SCH (17:11)
--- NOTE | 2018-06-19 18:54 | Consultation ---
DATE OF CONSULTATION: 06/19/2018 Pulmonary consultation. REASON FOR CONSULTATION: Pleural effusion. HISTORY OF PRESENT ILLNESS: Mr. Hull is a 57-year-old male with a chronic kidney disease. Apparently, he has recently been diagnosed with end stage, had a line placed and has had his first dialysis today. He came in with increasing shortness of breath. He has some cough. He did have some problems originally lying supine, but no fevers or chills. He did have increasing lower extremity edema. Evaluation showed large right and mkeja-gi-mumtinwm left pleural effusions with pulmonary edema. He has had his first dialysis and feels okay. PAST MEDICAL HISTORY: Includes diabetes, hypertension, CKD 5/ESRD, peripheral vascular disease, and a history of noncompliance. PAST SURGICAL HISTORY: Includes right foot toe amputation. SOCIAL HISTORY: He does not smoke. He used to drink in the past. No drug use. ALLERGIES: NONE. MEDICATIONS: Apparently, he was not taking any medications at home. Current medications include sodium bicarbonate, clonidine, Lasix, Rocephin, hydralazine, insulin, and heparin. PHYSICAL EXAMINATION: VITAL SIGNS: He has been afebrile since he has been here. Pulse is in the 70s, oxygen saturation 95% with room air, blood pressure has been as high as 190/92, others have been in the 140s. GENERAL: This is a very pleasant man, awake, alert. HEENT: Head is normocephalic, atraumatic. Pupils are round and reactive. Mucous membranes are moist. NECK: Supple. CHEST: He has a right-sided dialysis catheter in the chest. It is clean, dry, and intact, not palpated. His chest has decreased breath sounds and dullness at the right base. No rales. HEART: Regular rate and rhythm. No murmurs, rubs, or gallops. ABDOMEN: Soft, nontender. EXTREMITIES: No cyanosis or clubbing. He does have 2 to 3+ edema. DATA: I reviewed his imaging. Original chest x-ray in the emergency department shows bilateral effusions and atelectasis, right greater than left. He had a CT of the chest also done, which showed bilateral pleural effusions, moderate to large on the right and moderate on the left. They are layering. I do not see any loculations. He has atelectasis. He has no pericardial effusion. The upper abdomen does not show any ascites. LABS: White count 5, hemoglobin and hematocrit of 9.6 and 29 with 174,000 platelets. His creatinine was 9.7 with a BUN of 77. Calcium 6.7, albumin is 2.2, phosphorus was 7.2. Coags are unremarkable. ASSESSMENT: 1. Pleural effusions. 2. Pulmonary edema, likely noncardiac. 3. Newly diagnosed end-stage renal disease, starting on dialysis. RECOMMENDATIONS AND PLAN: We will set him up for right-sided therapeutic thoracentesis. This will help basically speed up getting the fluid off his chest and relieve the atelectasis. If he does not spike fever, we can probably discontinue the antibiotics in 24-48 hours. MD KELY Chew/MODL /[id number]
--- NOTE | 2018-06-19 19:33 | NUR ---
ESCALANTE CATHETER REMOVED, PATIENT DENIED PAIN AFTER REMOVAL, NO SIGNS OF ACUTE DISTRESS.
[2018-06-19] MEDS ORDERED: LOSARTAN POTASSIUM 100 MG TAB PO SCH (21:00)
--- NOTE | 2018-06-19 21:16 | Diagnostic Imaging Report ---
EXAMINATION: CHEST XRAY POST PROCEDURE INDICATION: ^small pneumo apical; follow-up ^Y COMPARISON: 06/19/2018 FINDINGS: Stable right internal jugular dialysis catheter. TUBES and LINES: None. LUNGS: Lungs are well inflated. Central vascular congestion and mild interstitial edema. PLEURA: Small left pleural effusion, decreased from prior exam. No definite right apical pneumothorax. Mild right apical scarring. HEART AND MEDIASTINUM: The cardiac silhouette is borderline enlarged. BONES AND SOFT TISSUES: No acute osseous lesion. Soft tissues are unremarkable. UPPER ABDOMEN: No free air under the diaphragm. IMPRESSION: Central vascular congestion and mild interstitial edema. Small left pleural effusion, decreased from prior exam. No definite right apical pneumothorax visualized on current exam. Mild right apical scarring. Signed by: Dr. Bryant Wright MD on 06/19/2018 9:13 PM
--- NOTE | 2018-06-19 22:00 | NUR ---
PATIENT WAS ABLE TO VOID WITH 150ML OF PALE YELLOW URINE
[2018-06-20] VITALS (9 sets, daily range): BP systolic 166–195; BP diastolic 84–93
[2018-06-20] MEDS: FUROSEMIDE 40 MG TAB PO SCH ×2 (06:43→17:22)
[2018-06-20] MEDS ORDERED: DEXTROSE 50% SYRINGE 50 ML IV PRN (08:30)
--- NOTE | 2018-06-20 09:24 | NUR ---
[place] [facility] [place] THEY DO NOT ACCEPT THIS PT INSURANCE. CALLED [facility] [phone] AND SPOKE WITH TRISTEN. SHE STATES THEY [facility] IS SHOWING UP AN ACCEPTING PROVIDER. REFERENCE [id number]. CALLED AND SPOKE WITH ROXIE AT [facility] AND GAVE HER THIS INFORMATION, SHE WILL FOLLOW UP WITH HER COMPANY TO SEE WHAT CAN BE DONE TO ASSIST THE PT. UPDATED DR LAMAS.
[2018-06-20] MEDS: CLONIDINE HCL 0.1 MG TAB PO SCH ×2 (09:28→21:36)
[2018-06-20] MEDS: SODIUM BICARBONATE 650 MG TAB PO SCH ×2 (09:28→16:55)
[2018-06-20 09:52] LABS: BASOPHILS % 0.6 % (0.0-1.0); EOSINOPHILS # (AUTO) 0.2 (0.0-0.4); EOSINOPHILS % 3.2 % (0.0-6.0); HEMATOCRIT 24.6 % (38.2-49.6); HEMOGLOBIN 7.9 g/dL (14.0-18.0); LYMPHOCYTES # (AUTO) 0.8 (1.0-3.2); LYMPHOCYTES % 15.5 % (18.0-39.1); MEAN CORPUSCULAR HEMOGLOBIN 28.8 pg (28-32); MEAN CORPUSCULAR HGB CONC 32.1 g/dL (31-35); MEAN CORPUSCULAR VOLUME 89.8 fL (81-99); MONOCYTES # (AUTO) 0.4 (0.2-0.8); MONOCYTES % 8.8 % (4.4-11.3); NEUTROPHILS # (AUTO) 3.6 (2.1-6.9); NEUTROPHILS % 71.7 % (38.7-80.0); PLATELET COUNT 137 x10e3/uL (140-360); RED BLOOD COUNT 2.74 x10e6/uL (4.3-5.7); RED CELL DISTRIBUTION WIDTH 14.6 % (11.7-14.4)
[2018-06-20 10:12] LABS: ALBUMIN 2.2 g/dL (3.5-5.0); ALBUMIN/GLOBULIN RATIO 0.8 (0.8-2.0); CREATININE, SERUM 8.14 mg/dL (0.72-1.25)
[2018-06-20 10:13] LABS: CALCIUM 6.4 mg/dL (8.4-10.2)
--- NOTE | 2018-06-20 10:22 | NUR ---
CALLED [phone], SPOKE WITH MARK PÉREZ CRITICAL CALCIUM RESULT, REQUESTED ORDERS FROM DR. LAMAS. MARK STATED THAT SHE WOULD LET THE DOCTOR KNOW
[2018-06-20] MEDS ORDERED: SODIUM CHLORIDE 0.9% 250ML 500 ML IV PRN (10:30)
[2018-06-20] MEDS: INSULIN LISPRO 100 UNIT/1 ML 3ML VIAL SQ SCH ×3 (11:30→21:36)
[2018-06-20] MEDS ORDERED: CLONIDINE HCL 0.1 MG TAB PO SCH (15:00)
--- NOTE | 2018-06-20 15:30 | NUR ---
Nutrition Screen Note RD Recommendation for Physician: -Continue current diet as ordered -RD provided diet education related to ESRD on 06/20. Plan of Care: RD following, monitoring for tolerance and adequacy, diet education Nutrition reason for involvement: Diagnosis Primary Diagnose(s): 1. Pleural effusions. 2. Pulmonary edema, likely noncardiac. 3. Newly diagnosed end-stage renal disease, starting on dialysis. PMH: diabetes, hypertension, CKD 5/ESRD, peripheral vascular disease, and a history of noncompliance. Ht: 68in Wt: 169lb BMI: 25.7kg/m2 IBW: 154lb RD Assessment: (06/20) Chart reviewed. Labs and meds reviewed. 57yo M, who was admitted for SOB. Pt was newly diagnosed with ESRD and was receiving HD during my visit. Pt reported good appetite with 100% recorded meal intake. Pt denied any nausea or vomiting. LBM 06/19. No chewing or swallowing difficulty reported. 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 Will continue to monitor and follow. Current Diet: renal/ ADA diet Malnutrition Evaluation (06/20/2018) The patient does not meet criteria for a specified degree of malnutrition at this time. Will re-evaluate at follow-up as appropriate. Diet Education Needs Assessment: Diet education indicated, pt was agreeable with plan. Learner(s): pt Time spent: 30mins Barriers: No barriers identified. Cultural/Language Modifications: Pt speaks some Maldivian. Explained the handouts with simple Maldivian. Ukrainian version of handouts was given. Readiness: Pt eager to learn. Method: Handouts, explanation Topics: Renal diet (Na, K, Phos limitations) Understanding/Compliance: Expect good understanding/compliance from pt. Will benefit from reinforcement. All questions have been answered. Nutrition Care Level: low Signed: Melba Liz, MS, RD, LD
[2018-06-20] MEDS: IRON SUCROSE 100 MG in SODIUM CHLORIDE 0.9% 100 ML 100 ML IV SCH (15:36)
[2018-06-20] MEDS: EPOETIN ALFA 10000 UNIT/ML VIAL SC SCH (15:40)
[2018-06-20] MEDS: CEFTRIAXONE SOD 1 GM/NS 50 ML 50 ML IV SCH (16:54)
[2018-06-20] MEDS: LOSARTAN POTASSIUM 100 MG TAB PO SCH (21:36)
[2018-06-20] MEDS: CARVEDILOL 12.5 MG TAB PO SCH (21:36)
[2018-06-21] VITALS (7 sets, daily range): BP systolic 151–188; BP diastolic 72–99
--- NOTE | 2018-06-21 02:35 | Consultation ---
DATE OF CONSULTATION: 06/20/2018 Cardiology Consultation CONSULTING PHYSICIAN: Ankur Reyna MD, Interventional Cardiology. HISTORY OF PRESENT ILLNESS: Mr. Hull is a pleasant 57-year-old man with history of hypertension, diabetes mellitus, and peripheral vascular disease, who presents with a course of 2-3 weeks of progressive worsening shortness of breath, dyspnea on exertion, orthopnea, and leg edema bilaterally. He was found to have pulmonary edema and renal failure, and was declared end-stage renal disease, initiated on scheduled dialysis. His echocardiogram was significant for ventricular systolic dysfunction with LVEF 40%. He has reported improvement in symptoms since initiating his dialysis. We have been asked to evaluate for new diagnosis of heart failure. He denies any chest discomfort or syncope. Denies any palpitations. PAST MEDICAL HISTORY: Significant for diabetes mellitus, hypertension, ESRD, PVD, and prior history of noncompliance. PAST SURGICAL HISTORY: Right toe amputation. SOCIAL HISTORY: Former smoker. No alcohol. No drugs. ALLERGIES: NONE PER EMR. MEDICATIONS: Please see medication reconciliation form. FAMILY HISTORY: Noncontributory. PHYSICAL EXAMINATION: VITAL SIGNS: Temperature 96.3, heart rate 89, respiratory rate 18, blood pressure 195/93, and O2 sat 97% on room air. GENERAL: No acute distress, alert. NECK: JVD into lower third of neck. CHEST: With decreased breath sounds in bilateral bases. CARDIOVASCULAR: Regular rate and rhythm. Normal S1 and S2. Systolic ejection murmur 1/6. No S3, no S4. ABDOMEN: Soft and nontender. EXTREMITIES: Trace edema. MEDICATIONS: Cardiovascular medications were reviewed. 1. Clonidine 0.2 mg t.i.d. 2. Furosemide 40 mg p.o. b.i.d. 3. Cozaar mg at bedtime. 4. Hydralazine 20 mg q.4 hours p.r.n. LABORATORY STUDIES: White blood cells 4.9, hemoglobin 7.9, platelets 137. INR 1. Sodium 137, potassium 4, chloride 103, bicarbonate 21, BUN 59, creatinine 8.1, glucose 147, calcium 6.4. AST 10, ALT 7, troponin I 0.065, BNP more than 5000, total protein 5.1, albumin 2.2. Carotid doppler with no hemodynamically significant stenosis, mild plaque on 2D images, and antegrade vertebral flow. Chest CT with large right and moderate left pleural effusions associated with atelectasis, esophagus and stomach distended with food products in the right atrium associated possibly to recent catheter placement. Telemetry in sinus rhythm. EKG, sinus rhythm with left atrial enlargement, left axis deviation, nonspecific repolarization abnormalities, and prolonged QT. ASSESSMENT: 1. Acute on chronic systolic heart failure, new diagnosis. 2. Left ventricular hypertrophy. 3. End-stage renal disease. 4. Diabetes mellitus. 5. Hypertension. 6. Abnormal pedal pulses concerning for . RECOMMENDATIONS: 1. Continue volume optimization per nephrology's expertise. 2. Optimize antihypertensives with particular use of Carvedilol and losartan while weaning clonidine, given new diagnosis of heart failure. 3. I have discussed with Eber angiography and possible intravascular intervention as part of his workup and management for new diagnosis of heart failure. I thank Dr. Sen for the opportunity to participate in the care of Eber. Please feel free to call with any questions. We will follow closely. Ankur Reyna MD AFEscobar/MODL /[id number]
[2018-06-21] MEDS: FUROSEMIDE 40 MG TAB PO SCH ×2 (05:42→17:11)
[2018-06-21] MEDS: INSULIN LISPRO 100 UNIT/1 ML 3ML VIAL SQ SCH ×4 (07:30→21:00)
[2018-06-21] MEDS: CLONIDINE HCL 0.1 MG TAB PO SCH ×3 (09:00→21:38)
[2018-06-21] MEDS: SODIUM BICARBONATE 650 MG TAB PO SCH ×2 (09:00→17:11)
--- NOTE | 2018-06-21 09:00 | NUR ---
Holding some BP meds due to starting dialysis at this time and will monitor.
--- NOTE | 2018-06-21 09:42 | NUR ---
Patient alert and responsive, denies any pains and no resp distress, CTAB, no BLE edema, BP slightly elevated but starting dialysis at this time, also able to urinate and will monitor.
[2018-06-21] MEDS: CARVEDILOL 12.5 MG TAB PO SCH ×2 (12:12→21:37)
[2018-06-21] MEDS: HYDRALAZINE HCL 20 MG/ML VIAL IV PRN (12:12)
[2018-06-21] MEDS: LOSARTAN POTASSIUM 100 MG TAB PO SCH ×2 (12:13→21:37)
--- NOTE | 2018-06-21 12:14 | NUR ---
Patient alert and responsive, BP elevated with dialysis and medicated at this time with hydralazine PRN as ordered, will monitor
[2018-06-21] MEDS: IRON SUCROSE 100 MG in SODIUM CHLORIDE 0.9% 100 ML 100 ML IV SCH (14:30)
--- NOTE | 2018-06-21 14:33 | NUR ---
Patient completed dialysis at this time and extracted 3.1L and post BP 156/67, denies any pains, will monitor.
--- NOTE | 2018-06-21 16:26 | NUR ---
CALLED JOSE AND SPOKE WITH SAROJ ABOUT THIS REFERRAL, RESUBMITTED CLINICALS AGAIN AND LET KNOW THAT I GAVE THE INFORMATION FOR THE REFERENCE NUMBER FROM THE INSURANCE. SHE WILL CHECK INTO IT AND TRY TO EXPEDITE THIS PLACEMENT.
[2018-06-21] MEDS: CEFTRIAXONE SOD 1 GM/NS 50 ML 50 ML IV SCH (17:11)
--- NOTE | 2018-06-21 20:10 | NUR ---
PATIENT RESTING QUIETLY IN BED, NO ACUTE DISTRESS OBSERVED AND HE DENIES PAIN. ASSISTED WITH ADLS, URINAL AND CALL LIGHT WITHIN EASY REACH, INSTRUCTED TO CALL FOR ASSISTANCE NEEDED.
[2018-06-22] VITALS (7 sets, daily range): BP systolic 145–179; BP diastolic 66–90
--- NOTE | 2018-06-22 00:35 | NUR ---
PATIENT IS ASLEEP, HE'S EASY TO AROUSE. NO RESPIRATORY DISTRESS OBSERVED, HE DENIES PAIN. CALL LIGHT WITHIN EASY REACH, INSTRUCTED TO CALL FOR ASSISTANCE NEEDED.
--- NOTE | 2018-06-22 04:27 | NUR ---
PATIENT CONDITION STABLE WITHOUT RESPIRATORY DISTRESS, HE DENIES PAIN. CALL LIGHT WITHIN EASY REACH, INSTRUCTED TO CALL FOR ASSISTANCE NEEDED.
[2018-06-22] MEDS: FUROSEMIDE 40 MG TAB PO SCH ×2 (06:26→19:08)
[2018-06-22] MEDS: INSULIN LISPRO 100 UNIT/1 ML 3ML VIAL SQ SCH ×4 (07:30→20:59)
[2018-06-22] MEDS: SODIUM BICARBONATE 650 MG TAB PO SCH ×2 (08:15→17:07)
[2018-06-22] MEDS: LOSARTAN POTASSIUM 100 MG TAB PO SCH ×2 (08:15→21:04)
[2018-06-22] MEDS: CARVEDILOL 12.5 MG TAB PO SCH ×2 (08:15→17:07)
[2018-06-22] MEDS: HYDRALAZINE HCL 20 MG/ML VIAL IV PRN (08:16)
[2018-06-22] MEDS: CLONIDINE HCL 0.1 MG TAB PO SCH ×3 (08:16→21:04)
--- NOTE | 2018-06-22 08:37 | NUR ---
Received patient and alert and responsive, no resp distress, VSS, denies any pains lungs CTAB, no BLE edema, OOB and ambulates, tunneled cath in place and will monitor at this time, call light within reach.
--- NOTE | 2018-06-22 13:07 | Progress Note ---
DATE: 06/21/2018 Cardiology Progress Note SUBJECTIVE: Denies chest pain. Shortness of breath, improving. Undergoing dialysis today. OBJECTIVE: VITAL SIGNS: Temperature 97.2, heart rate 74, blood pressure 169/90, respiratory rate 16, and O2 saturation 98%. GENERAL: No acute distress. Alert and active. NECK: No JVD. CHEST: Clear to auscultation. CARDIOVASCULAR: Regular rate and rhythm. Normal S1 and S2. Systolic ejection murmur. ABDOMEN: Soft. EXTREMITIES: Trace edema. CARDIOVASCULAR MEDICATIONS: Carvedilol 12.5 mg every 12 hours, hydralazine 20 mg every 4 hours, clonidine 0.1 mg t.i.d., and losartan 50 mg every 12 hours. LABORATORY DATA: Studies reviewed. Potassium 4, bicarbonate 21, and sodium 137. White blood cells 4.9, hemoglobin 7.9, and platelets 137. Normal transaminases. ASSESSMENT: 1. [id number] systolic heart failure. 2. End-stage renal disease. 3. Uncontrolled hypertension. 4. Anemia. RECOMMENDATIONS: 1. Continue to adjust beta-vasquez and ARB as tolerated by blood pressure 2. I have discussed with the patient my recomendation for coronary invasive evaluation. The patient agrees to consider this possibly while in-house if still in-house next week, otherwise to arrange as outpatient. MD JOSE Jones/BRIT /[id number] MTDD
[2018-06-22] MEDS: IRON SUCROSE 100 MG in SODIUM CHLORIDE 0.9% 100 ML 100 ML IV SCH (14:30)
--- NOTE | 2018-06-22 14:58 | Progress Note ---
DATE: 06/22/2018 PULMONARY PROGRESS NOTE This is on behalf of Dr. Domínguez. SUBJECTIVE: The patient is a 57-year-old male, who was seen in the beginning due to shortness of breath secondary to pulmonary edema. He has a history of end-stage renal disease, diabetes, chronic kidney disease, hypertension, peripheral vascular disease, and right 5th toe amputation previously. Patient before coming in stopped the medications and got pulmonary edema. Currently feeling much better without any significant complaint. OBJECTIVE: GENERAL: He is alert and cooperative. VITAL SIGNS: He is afebrile. Pulse 895, respiratory rate 22, blood pressure 149/69, and pulse oximetry 96. HEENT: Normocephalic, atraumatic. He has color of the skin of pupil with chronic kidney problems. NECK: No tenderness. LUNGS: Decreased breath sounds and rales in the bases. HEART: No murmurs. ABDOMEN: Soft. EXTREMITIES: Pedal edema. LABS: In terms of the labs, the last lab that is reported is on the . The white cell count was 4.98, hemoglobin was 7.9, and platelets were normal. BUN on the was 71 and creatinine 9.8. IMPRESSION 1. Shortness of breath due to pulmonary edema. 2. Bilateral pleural effusion. 3. End-stage renal disease. 4. Diabetes mellitus. 5. Hypertension. RECOMMENDATIONS: Patient is on Rocephin 500 mg q.24 hours. Besides that, he is getting 3 times a week hemodialysis. Lung fiore, he looks more stable and he has improved since the time that he was admitted. Job#: [id number] TOLU VO
[2018-06-22] MEDS: EPOETIN ALFA 10000 UNIT/ML VIAL SC SCH ×2 (15:00→19:09)
--- NOTE | 2018-06-22 15:56 | NUR ---
Call from export freight manager and orders to increase carvedilol to 25mg BID, orders in place.
--- NOTE | 2018-06-22 19:00 | NUR ---
Report received and rounds completed, no complaints or concerns at this time. Lying in bed watching TV.
[2018-06-22] MEDS: CEFTRIAXONE SOD 1 GM/NS 50 ML 50 ML IV SCH (19:08)
--- NOTE | 2018-06-22 20:40 | NUR ---
PATIENT CONDITION STABLE WITHOUT RESPIRATORY DISTRESS, HE DENIES PAIN. CALL LIGHT WITHIN EASY REACH, INSTRUCTED TO CALL FOR ASSISTANCE IF NEEDED.
--- NOTE | 2018-06-22 20:41 | Progress Note ---
DATE: 06/22/2018 Cardiology Progress Note SUBJECTIVE: Continues to complain of some orthopnea, however, feeling better. Denies any chest pain or shortness of breath at rest. Status post dialysis yesterday. OBJECTIVE: VITAL SIGNS: Revealed temperature 98.5, heart rate 81, blood pressure 179/89, respiratory rate 16, O2 saturation 96%. GENERAL: In no acute distress. Alert. NECK: No JVD. CHEST: Clear to auscultation. CARDIOVASCULAR: Regular rate and rhythm. Normal S1 and S2. No S3 and no S4. ABDOMEN: Soft, nontender. EXTREMITIES: No edema. MEDICATIONS: Cardiovascular medications reviewed: 1. Carvedilol 12.5 mg every 12 hours. 2. Hydralazine 20 mg every 4 hours. 3. Clonidine 0.1 mg t.i.d. 4. Losartan 50 mg every 12 hours. LABORATORY DATA: Studies reviewed. Sodium 137, potassium 4, chloride 103, bicarbonate 21, BUN 59, creatinine 8.14, glucose 175. White blood cells 4.9, hemoglobin 7.9, and platelets 137. INR 1.06. AST 10, total bilirubin 0.4, ALT 7, alkaline phosphatase 89. ASSESSMENT: 1. Acute systolic heart failure, new diagnosis and angina pectoris. 2. End-stage renal disease. 3. Diabetes mellitus. 4. Hypertension. 5. Anemia. RECOMMENDATIONS: 1. Continue gradual up-titration of antihypertensives, particularly beta-vasquez and ARB to highest tolerated dose as part of optimal medical therapy management for his heart failure. 2. Anemia workup undergoing and advised. 3. Angiography and possible endovascular coronary intervention have been discussed with the patient and family members. If in-house early next week, we will arrange prior to hospital discharge. Otherwise, the patient has been advised to follow up in office to schedule as outpatient. Ankur Reyna MD AFEscobar/MODVik /[id number]
[2018-06-23] VITALS (9 sets, daily range): BP systolic 135–186; BP diastolic 70–91
--- NOTE | 2018-06-23 | NUR ---
Resting eyes closed, resp even and unlabored. Call light within reach.
[2018-06-23] MEDS: HYDRALAZINE HCL 20 MG/ML VIAL IV PRN (05:39)
[2018-06-23] MEDS: FUROSEMIDE 40 MG TAB PO SCH ×2 (05:39→17:18)
--- NOTE | 2018-06-23 07:05 | NUR ---
Walking rounds done and report received. Patient is resting in bed in NAD, denies any pain or discomfort at this time. Patient instructed to call for assistance as needed and verbalized understanding.
[2018-06-23] MEDS: INSULIN LISPRO 100 UNIT/1 ML 3ML VIAL SQ SCH ×4 (07:30→22:04)
[2018-06-23] MEDS: CLONIDINE HCL 0.1 MG TAB PO SCH ×3 (08:54→22:02)
[2018-06-23] MEDS: SODIUM BICARBONATE 650 MG TAB PO SCH ×2 (08:55→17:18)
[2018-06-23] MEDS: LOSARTAN POTASSIUM 100 MG TAB PO SCH ×2 (08:55→22:02)
[2018-06-23] MEDS: CARVEDILOL 12.5 MG TAB PO SCH ×2 (08:55→17:17)
[2018-06-23] MEDS: IRON SUCROSE 100 MG in SODIUM CHLORIDE 0.9% 100 ML 100 ML IV SCH (14:30)
--- NOTE | 2018-06-23 15:05 | NUR ---
Visit made by the Spiritual Care Department Pastoral Visitor, Jose Martin. PV provided pastoral presence, hospitality, and supportive listening. Pastoral Visitor informed pt/family of the scope of [employer] and availability. KAITY NIELSON P[facility] Spiritual Care Department O: [phone] Pager: [phone] ([phone] number calling from)
--- NOTE | 2018-06-23 15:56 | Progress Note ---
DATE: 06/23/2018 COVERING FOR: Dr. Domínguez. SUBJECTIVE: Patient is a 57-year-old male. Today, he is complaining of some shortness of breath and chest pain. PHYSICAL EXAMINATION VITAL SIGNS: He is afebrile, pulse 76, blood pressure 167/75, respiratory rate 18, oxygen saturation 98. HEENT: Atraumatic. NECK: No tenderness. LUNGS: There are rhonchi in the bases. HEART: No murmurs. ABDOMEN: Soft. EXTREMITIES: Bilateral pedal edema. LABS: BUN 59, creatinine 8.14, sugar 175. Hemoglobin 7.9. Rest of the labs unremarkable. IMPRESSION 1. Pulmonary edema. 2. Congestive heart failure 3. End-stage renal disease, on chronic hemodialysis. 4. Pleural effusion, status post right thoracentesis. 5. Hypertension. 6. Diabetes mellitus. RECOMMENDATION: To continue with the same medications. He is on Rocephin q.24 hours IV. He is on Coreg 25 mg b.i.d. and hydralazine 20 mg q.4. He is on clonidine 0.1 t.i.d., insulin lispro, and losartan 50 mg q.12. Job#: [id number] ARNOLD VO
[2018-06-23] MEDS: CEFTRIAXONE SOD 1 GM/NS 50 ML 50 ML IV SCH (17:17)
--- NOTE | 2018-06-23 20:40 | NUR ---
PATIENT IS STABLE WITHOUT RESPIRATORY DISTRESS, HE DENIES PAIN. DR DEUTSCH SAW THE PATIENT, HE DISCUSSED WITH HIM IN [place] THE PLAN FOR HEART CATHETERIZATION TOMORROW.
[2018-06-24] VITALS (7 sets, daily range): BP systolic 138–181; BP diastolic 67–90
--- NOTE | 2018-06-24 01:12 | NUR ---
WALKING ROUNDS MADE, PATIENT IS ASLEEP AND HE'S EASY TO AROUSE. NO RESPIRATORY DISTRESS OBSERVE, HE DENIES PAIN. CALL LIGHT WITHIN EASY REACH, HE'S REMINDER TO STAY NPO FOR HEART CATH IN THE MORNING.
[2018-06-24] MEDS: HYDRALAZINE HCL 20 MG/ML VIAL IV PRN (04:28)
--- NOTE | 2018-06-24 04:28 | NUR ---
PATIENT'S BLOOD PRESSURE IS 181/82, HEART RATE 79. HYDRALAZINE 20MG ADMINISTERED PER PROTOCOL, NO RESPIRATORY DISTRESS OBSERVED AND PATIENT DENIES PAIN.
[2018-06-24] MEDS: FUROSEMIDE 40 MG TAB PO SCH ×2 (06:00→17:27)
[2018-06-24 07:01] LABS: BASOPHILS % 0.8 % (0.0-1.0); EOSINOPHILS # (AUTO) 0.3 (0.0-0.4); EOSINOPHILS % 5.3 % (0.0-6.0); HEMOGLOBIN 8.1 g/dL (14.0-18.0); LYMPHOCYTES # (AUTO) 1.1 (1.0-3.2); LYMPHOCYTES % 21.1 % (18.0-39.1); MEAN CORPUSCULAR HEMOGLOBIN 28.7 pg (28-32); MEAN CORPUSCULAR HGB CONC 31.2 g/dL (31-35); MEAN CORPUSCULAR VOLUME 92.2 fL (81-99); MONOCYTES # (AUTO) 0.5 (0.2-0.8); MONOCYTES % 9.5 % (4.4-11.3); NEUTROPHILS # (AUTO) 3.3 (2.1-6.9); NEUTROPHILS % 63.1 % (38.7-80.0); PLATELET COUNT 155 x10e3/uL (140-360); RED BLOOD COUNT 2.82 x10e6/uL (4.3-5.7); RED CELL DISTRIBUTION WIDTH 14.2 % (11.7-14.4)
[2018-06-24 07:11] LABS: INR 0.95; PROTHROMBIN TIME 13.6 seconds (11.9-14.5)
[2018-06-24 07:12] LABS: PARTIAL THROMBOPLASTIN TIME 39.4 seconds (23.8-35.5)
--- NOTE | 2018-06-24 07:12 | Progress Note ---
DATE: 06/23/2018 Cardiology Progress Note SUBJECTIVE: No complaints other than orthopnea. OBJECTIVE: VITAL SIGNS: Temperature 96.4, heart rate 78, blood pressure 155/73, respiratory rate 18, O2 saturation 98%. GENERAL: No acute distress. Alert. NECK: No JVD. CHEST: Clear to auscultation. CARDIOVASCULAR: Regular rate and rhythm. Normal S1, S2. ABDOMEN: Soft. EXTREMITIES: Trace edema. CARDIOVASCULAR MEDICATIONS: 1. Carvedilol 25 mg every 12 hours. 2. Clonidine 0.1 mg t.i.d. 3. Furosemide 40 mg b.i.d. 4. Losartan 50 mg every 12 hours. LABORATORY DATA: Studies reviewed. Creatinine 8.1. Hemoglobin 7.9, white blood cells 4.9, platelets 133. ASSESSMENT: 1. Acute systolic heart failure. 2. Angina pectoris. 3. Hypertension. 4. End-stage renal disease. RECOMMENDATIONS: 1. Continue current cardiovascular medications. 2. Coronary angiography and possible revascularization advised early next week. MD JOSE Jones/BRIT /[id number]
[2018-06-24 07:20] LABS: ANION GAP 17.6 mmol/L (8-16); CREATININE, SERUM 6.68 mg/dL (0.72-1.25); POTASSIUM 4.6 mmol/L (3.5-5.1)
[2018-06-24 07:22] LABS: CALCIUM 6.9 mg/dL (8.4-10.2)
[2018-06-24] MEDS: INSULIN LISPRO 100 UNIT/1 ML 3ML VIAL SQ SCH ×4 (07:30→22:29)
--- NOTE | 2018-06-24 07:32 | NUR ---
CALLED AND SPOKE TO DR. FAUSTIN REGARDING CRITICAL CALCIUM LEVEL. STATES DO NOT CALL WITH CALCIUM LEVELS, PT IS DIALYSIS PT. NO NEW ORDERS RECEIVED.
[2018-06-24] MEDS ORDERED: LIDOCAINE HCL 1% LOCAL INJ 20 ML VIAL ONE (07:50)
[2018-06-24] MEDS ORDERED: HEPARIN SOD/SOD CHLORIDE 2,000 ML ONE (07:50)
[2018-06-24] MEDS ORDERED: IOPAMIDOL 370 MG/ML 200 ML INFUS..BTL INJ ONE (07:50)
[2018-06-24] MEDS: CLONIDINE HCL 0.1 MG TAB PO SCH ×3 (07:54→22:30)
[2018-06-24] MEDS: CARVEDILOL 12.5 MG TAB PO SCH ×2 (07:54→17:27)
[2018-06-24] MEDS: SODIUM BICARBONATE 650 MG TAB PO SCH ×2 (07:54→17:27)
[2018-06-24] MEDS: LOSARTAN POTASSIUM 100 MG TAB PO SCH ×2 (07:54→22:29)
--- NOTE | 2018-06-24 09:16 | NUR ---
PT TO FINAL EXPENSE AGENT AT THIS TIME VIA BED.
[2018-06-24] MEDS ORDERED: MIDAZOLAM HCL 2 MG/2 ML VIAL ONE (09:22)
[2018-06-24] MEDS ORDERED: FENTANYL CITRATE/PF 100MCG/2 ML INJ ONE (09:23)
[2018-06-24] MEDS ORDERED: SODIUM CHLORIDE 0.9% 1000ML 1,000 ML ONE (09:23)
--- NOTE | 2018-06-24 09:58 | NUR ---
SPOKE WITH JAMES AT [facility] DUE TO CONFLICTING INFORMATION ABOUT COVERAGE. HE STATES THEY HAVE RUN THE INCORRECT PLAN AND I WAS ABLE TO FAX HIM A COPY OF INSURANCE CARD TO [phone] HE STATES HE RECEIVED IT AND IS RUNNING THE INFORMATION AND WILL GET BACK WITH ME.
--- NOTE | 2018-06-24 10:37 | NUR ---
PT RETURNED FROM DATA PROCESSING OPERATOR VIA BED. AAOX3 NO COMPLAINTS. RIGHT GROIN SITE C/D/I SOFT TO TOUCH. INSTRUCTED PT HE WILL NEED TO REMAIN FLAT FOR 4 HOURS PER DATA PROCESSING OPERATOR NURSE. PT VERBALIZED UNDERSTANDING. CALL LIGHT WITHIN REACH. BED LOCKED AND IN LOWEST POSITION. BED ALARM ON. WILL CONTINUE TO MONITOR.
--- NOTE | 2018-06-24 12:58 | Progress Note ---
DATE: 06/24/2018 Cardiology Progress Note SUBJECTIVE: No complaints today. OBJECTIVE: VITAL SIGNS: Temperature 96.9, heart rate 81, respiratory rate 14, blood pressure 154/76, and O2 saturation 97%. GENERAL: No acute distress. Alert. NECK: JVD. CHEST: Clear to auscultation. CARDIOVASCULAR: Regular rate and rhythm. Normal S1, S2. No S3 or S4. ABDOMEN: Soft. EXTREMITIES: Trace edema. MEDICATIONS: Cardiovascular medications were reviewed: Hydralazine 20 mg q.4 hours IV p.r.n., carvedilol 25 mg b.i.d., losartan 50 mg b.i.d., Catapres 0.1 mg t.i.d., and furosemide 40 mg b.i.d. LABORATORY DATA: White blood cells 5.2, hemoglobin 8.1, platelets 155. INR 0.9. Sodium 138, potassium 4.6, chloride 98, bicarbonate 27, BUN 53, creatinine 6.6, glucose 99, calcium 6.9. Telemetry, in sinus rhythm. ASSESSMENT: 1. Acute systolic heart failure. 2. Unstable angina. 3. Hypertension. 4. End-stage renal disease. RECOMMENDATIONS: 1. Cardiac catheterization and possible endovascular intervention as scheduled for today. 2. Continue current cardiovascular medications. 3. Volume management per Nephrology. MD JOSE Jones/BRIT /[id number]
[2018-06-24] MEDS ORDERED: SODIUM CHLORIDE 0.9% 250ML 500 ML IV PRN (15:15)
[2018-06-24] MEDS ORDERED: ALBUMIN 25% 12.5GM 0.25 GM/ML BTL IV PRN (15:15)
[2018-06-24] MEDS ORDERED: HEPARIN SOD (PORCINE) 1000 UNIT/ML SDV IV PRN (15:15)
[2018-06-24] MEDS ORDERED: SODIUM CHLORIDE 0.9% 1000ML 2,000 ML IV PRN (15:15)
--- NOTE | 2018-06-24 15:37 | NUR ---
SPOKE WITH JOSE AND ALSO SPOKE WITH [facility] TO FIND FACILITIES IN NETWORK FOR DIALYSIS FOR THIS PATIENT DUE TO HIM HAVING A POLICY THAT [facility] DOES NOT ACCEPT. CHOICES ARE [facility], [facility] AND [facility]. ASKED DR ORTIZ TO DETERMINE BETTER REFERRAL FOR MD TO TAKE OVER CARE. HE WILL LET KNOW WHERE TO SEND CLINICALS. ALSO GAVE CHOICE LIST TO NURSE TO PROVIDE TO DOCTOR WHEN ARRIVES HERE FOR SELECTION CHOICES.
[2018-06-24] MEDS: IRON SUCROSE 100 MG in SODIUM CHLORIDE 0.9% 100 ML 100 ML IV SCH (17:27)
--- NOTE | 2018-06-24 17:27 | NUR ---
PT DIALYSIS COMPLETE 3L REMOVED. SCHEDULED VENOFER STARTED AT THIS TIME ORDERED.
--- NOTE | 2018-06-24 18:05 | Operative Report ---
DATE OF PROCEDURE: 06/24/2018 SURGEON: Ankur Reyna MD PROCEDURE INDICATION: Acute systolic heart failure and unstable angina on presentation, new diagnosis for heart failure. PROCEDURES PERFORMED: 1. Left heart catheterization. 2. Selective coronary angiography. 3. Right common femoral artery, 6-Serbian Angio-Seal closure. PROCEDURE COMPLICATIONS: None. ESTIMATED BLOOD LOSS: Less than 15 mL. PROCEDURE SUMMARY: After consent was obtained, the patient was prepped and draped in a sterile fashion. The right femoral site was locally infiltrated with 2% lidocaine. Access was obtained with micropuncture and a 6-Serbian sheath was placed. All catheters were railed into the proximal ascending aorta over a leading wire. After initial angiography performed with a JL4 6-Serbian and JR4 6-Serbian for selective engagement of the left main and the right coronary artery respectively as well as to cross the aortic valve for hemodynamic measurements, the following findings were noted: 1. Aortic pressure was 168/54. 2. LV pressure was 117/5 with end-diastolic pressure of 14. 3. No left ventriculogram was performed. 4. Left main is large in caliber with luminal irregularities giving an LAD and circumflex. 5. The LAD has luminal irregularities throughout giving 3 diagonals and multiple septal perforators. 6. Circumflex was dominant, giving 3 obtuse marginals and 4 left posterolateral branches and an LPDA. It has luminal irregularities in circumflex and branches. 7. The right coronary artery is nondominant with 2 RV marginals were small in caliber and terminates after the second RV marginal. Has luminal irregularities. CONCLUSION: 1. No evidence of obstructive coronary artery disease noted. 2. Luminal irregularities noted throughout the coronary tree. 3. Acute systolic heart failure and nonischemic cardiomyopathy. RECOMMENDATIONS: Continue medical aggressive therapy for CHF. Ankur Reyna MD AFV/MODL /[id number]
[2018-06-24] MEDS: CEFTRIAXONE SOD 1 GM/NS 50 ML 50 ML IV SCH (18:27)
--- NOTE | 2018-06-24 20:11 | NUR ---
PRESSURE DRESSING DRY AND INTACT TO THE RIGHT GROIN WITHOUT HEMATOMA OR BLEEDING, PATIENT DENIES PAIN, NO RESPIRATORY DISTRESS OBSERVED. CALL LIGHT WITHIN EASY REACH, INSTRUCTED TO CALL FOR ASSISTANCE NEEDED.
[2018-06-25] VITALS (7 sets, daily range): BP systolic 125–185; BP diastolic 61–95
--- NOTE | 2018-06-25 00:15 | NUR ---
PRESSURE DRESSING REMAINS DRY AND INTACT TO THE RIGHT GROIN WITHOUT BLEEDING OR HEMATOMA. PATIENT DENIES PAIN, NO RESPIRATORY DISTRESS OBSERVED.
--- NOTE | 2018-06-25 04:10 | NUR ---
PATIENT IS SOUNDLY ASLEEP, NO RESPIRATORY DISTRESS OBSERVED. BED ALARM ON, CALL LIGHT WITHIN EASY REACH.
[2018-06-25] MEDS: FUROSEMIDE 40 MG TAB PO SCH ×2 (06:16→17:08)
[2018-06-25] MEDS: INSULIN LISPRO 100 UNIT/1 ML 3ML VIAL SQ SCH ×4 (07:30→21:00)
[2018-06-25] MEDS: CLONIDINE HCL 0.1 MG TAB PO SCH (09:20)
[2018-06-25] MEDS: CARVEDILOL 12.5 MG TAB PO SCH ×2 (09:20→17:08)
[2018-06-25] MEDS: SODIUM BICARBONATE 650 MG TAB PO SCH ×2 (09:20→17:08)
[2018-06-25] MEDS: LOSARTAN POTASSIUM 100 MG TAB PO SCH ×2 (09:20→21:01)
[2018-06-25] MEDS: HYDRALAZINE HCL 20 MG/ML VIAL IV PRN (10:29)
[2018-06-25] MEDS: CLONIDINE HCL 0.2 MG TAB PO SCH ×2 (14:19→21:01)
[2018-06-25] MEDS: IRON SUCROSE 100 MG in SODIUM CHLORIDE 0.9% 100 ML 100 ML IV SCH (14:19)
[2018-06-25] MEDS: EPOETIN ALFA 10000 UNIT/ML VIAL SC SCH (14:19)
[2018-06-25] MEDS ORDERED: CLONIDINE HCL 0.1 MG TAB PO SCH (15:00)
[2018-06-25] MEDS: CEFTRIAXONE SOD 1 GM/NS 50 ML 50 ML IV SCH (17:08)
--- NOTE | 2018-06-25 19:07 | NUR ---
WALKING ROUNDS PERFORMED, RECEIVED PT LAYING SEMI FOWLERS IN BED, AAOX3, RR EVEN AND NON-LABORED, ON RA. NO S/SX OF DISTRESS NOTED. LEFT PT LAYING SEMI FOWLERS IN BED, BED IN LOW LOCKED POSITION, SIDE RAILS UPX2, CALL LIGHT AND PHONE WITHIN REACH.
--- NOTE | 2018-06-25 21:54 | Progress Note ---
DATE: 06/25/2018 SUBJECTIVE: Feels better today, orthopnea improving. No chest pain or shortness of breath. OBJECTIVE: VITAL SIGNS: Temperature 96.9, heart rate 68, blood pressure 125/61, respiratory rate 18, and O2 saturation 98%. GENERAL: No acute distress. Alert. NECK: No JVD. CHEST: Clear to auscultation. CARDIOVASCULAR: Regular rate and rhythm. Normal S1, S2. No S3 or S4. ABDOMEN: Soft. EXTREMITIES: No edema. MEDICATIONS: Cardiovascular medications reviewed: Ceftriaxone, iron sucrose, Carvedilol 25 mg b.i.d., losartan 50 mg t.i.d., hydralazine 10 mg q.4 hours p.r.n., clonidine 0.2 mg t.i.d., furosemide 40 mg b.i.d. LABORATORY DATA: Studies reviewed. Potassium 4.6, bicarbonate 27, creatinine 6.6, white blood cells 5.2, hemoglobin 8.1 and platelets 105. INR 0.9. AST 10, ALT 7. ASSESSMENT: 1. Nonischemic cardiomyopathy. 2. Acute systolic heart failure. 3. Hypertension. 4. Dyslipidemia. 5. End stage renal disease. 6. Anemia. RECOMMENDATIONS: 1. Continue current cardiovascular medications. 2. Outpatient followup in 4-6 weeks post discharge. MD JOSE Jones/BRIT /[id number]
[2018-06-26] VITALS (7 sets, daily range): BP systolic 135–181; BP diastolic 64–94
[2018-06-26] MEDS: FUROSEMIDE 40 MG TAB PO SCH ×2 (05:32→17:04)
[2018-06-26] MEDS: INSULIN LISPRO 100 UNIT/1 ML 3ML VIAL SQ SCH ×4 (07:30→21:00)
[2018-06-26 08:22] LABS: BASOPHILS % 0.7 % (0.0-1.0); EOSINOPHILS # (AUTO) 0.2 (0.0-0.4); EOSINOPHILS % 5.9 % (0.0-6.0); HEMOGLOBIN 7.5 g/dL (14.0-18.0); LYMPHOCYTES # (AUTO) 0.8 (1.0-3.2); LYMPHOCYTES % 26.2 % (18.0-39.1); MEAN CORPUSCULAR HEMOGLOBIN 29.1 pg (28-32); MEAN CORPUSCULAR HGB CONC 31.3 g/dL (31-35); MONOCYTES # (AUTO) 0.2 (0.2-0.8); MONOCYTES % 6.6 % (4.4-11.3); NEUTROPHILS # (AUTO) 1.7 (2.1-6.9); NEUTROPHILS % 60.3 % (38.7-80.0); PLATELET COUNT 132 x10e3/uL (140-360); RED BLOOD COUNT 2.58 x10e6/uL (4.3-5.7); RED CELL DISTRIBUTION WIDTH 14.8 % (11.7-14.4)
[2018-06-26 09:09] LABS: ALBUMIN 2.5 g/dL (3.5-5.0); ALBUMIN/GLOBULIN RATIO 0.8 (0.8-2.0); ANION GAP 15.5 mmol/L (8-16); CALCIUM 7.3 mg/dL (8.4-10.2); CREATININE, SERUM 5.24 mg/dL (0.72-1.25); POTASSIUM 4.5 mmol/L (3.5-5.1)
[2018-06-26] MEDS ORDERED: SODIUM CHLORIDE 0.9% 250ML 250 ML IV ONE (09:45)
--- NOTE | 2018-06-26 09:46 | NUR ---
SPOKE WITH MD ORTIZ REGARDING LOW BLOOD COUNT. NEW ORDERS RECEIVED TO GIVE ONE UNIT.
[2018-06-26] MEDS: LOSARTAN POTASSIUM 100 MG TAB PO SCH ×2 (12:02→23:05)
[2018-06-26] MEDS: CARVEDILOL 12.5 MG TAB PO SCH ×2 (12:02→17:04)
[2018-06-26] MEDS: CLONIDINE HCL 0.2 MG TAB PO SCH ×3 (12:02→22:00)
[2018-06-26] MEDS: SODIUM BICARBONATE 650 MG TAB PO SCH ×2 (12:02→17:04)
--- NOTE | 2018-06-26 12:03 | NUR ---
HD COMPLETE. REMOVE WERE 3.3 L. PT V..S READ 186/103 HR OF 78 GIVEN MORNING BP MEDS AT THIS TIME CONSENT FOR BLOOD SIGNED
--- NOTE | 2018-06-26 12:30 | NUR ---
unit of blood started, pt v/s taken . verified blood bag with rn pineda hassan at bedside. will monitor pt closely
--- NOTE | 2018-06-26 14:55 | NUR ---
UNIT OF BAG COMPLETE .PT IS AA0X3 IN NO S.S OF DISTRESS .WILL REDRAW CBC IN 4 HOURS PER PROTOCOL.
--- NOTE | 2018-06-26 15:18 | Progress Note ---
DATE: 06/26/2018 Cardiology Progress Note SUBJECTIVE: No new complaints. Denies chest pain or shortness of breath. OBJECTIVE: VITAL SIGNS: Temperature 96.6, heart rate 73, respiratory rate is 20, blood pressure 181/94, O2 saturation 98% on room air. GENERAL: No acute distress, alert. NECK: No JVD. CHEST: Clear to auscultation. CARDIOVASCULAR: Regular rate and rhythm. Normal S1 and S2. ABDOMEN: Soft. EXTREMITIES: Trace edema. MEDICATIONS: Cardiovascular medications reviewed. Clonidine 0.2 mg t.i.d., carvedilol 25 mg b.i.d., losartan 50 mg every 12 hours, furosemide 40 mg b.i.d., hydralazine p.r.n. STUDIES: White blood cells 2.8, hemoglobin 7.5, platelets 132. Sodium 138, potassium 4.5, chloride 100, bicarbonate 27, BUN 40, creatinine 5.2, glucose 117, calcium 7.3, AST 16, ALT 9, alkaline phosphatase 103, total bilirubin 0.4, total protein 5.6, albumin 2.5. Telemetry, in sinus rhythm. ASSESSMENT: 1. Nonischemic cardiomyopathy. 2. Acute systolic heart failure. 3. Hypertension. 4. Dyslipidemia. 5. End-stage renal disease. 6. Anemia. RECOMMENDATIONS: 1. Continue current cardiovascular medications. 2. Outpatient followup in 4 to 6 weeks upon discharge. 3. Dispo planning ongoing. The patient waiting for dialysis chair. 4. Dialysis planned for today. Volume management per Nephrology. MD JOSE Jones/BRIT /[id number]
[2018-06-26] MEDS: IRON SUCROSE 100 MG in SODIUM CHLORIDE 0.9% 100 ML 100 ML IV SCH (17:03)
[2018-06-26] MEDS: CEFTRIAXONE SOD 1 GM/NS 50 ML 50 ML IV SCH (18:20)
[2018-06-26 22:42] LABS: HEMATOCRIT 27.5 % (38.2-49.6); HEMOGLOBIN 8.8 g/dL (14.0-18.0)
[2018-06-27] VITALS (7 sets, daily range): BP systolic 143–189; BP diastolic 71–93
[2018-06-27] MEDS: HYDRALAZINE HCL 20 MG/ML VIAL IV PRN ×2 (00:45→12:41)
[2018-06-27] MEDS: FUROSEMIDE 40 MG TAB PO SCH ×2 (06:00→18:12)
[2018-06-27] MEDS: INSULIN LISPRO 100 UNIT/1 ML 3ML VIAL SQ SCH ×5 (07:30→20:58)
[2018-06-27] MEDS: CLONIDINE HCL 0.2 MG TAB PO SCH ×3 (09:10→21:30)
[2018-06-27] MEDS: LOSARTAN POTASSIUM 100 MG TAB PO SCH ×2 (09:16→20:58)
[2018-06-27] MEDS: CARVEDILOL 12.5 MG TAB PO SCH ×2 (09:16→18:12)
[2018-06-27] MEDS: SODIUM BICARBONATE 650 MG TAB PO SCH ×2 (09:16→18:12)
--- NOTE | 2018-06-27 13:11 | NUR ---
PT STATES HE CANNOT MAKE IT TO HIS DIALYSIS CHAIR AT 1400 . FAMILY CANNOT MAKE IT UNTIL 1600. PT HAS A DC ORDER PLACE BY MD FAUSTIN. NOTIFIED MD FAUSTIN REGARDING THIS AND CASE MANAGEMENT NURIA STATING IF PT CANNOT MAKE IT TO HIS APPOINTMENT TODAY HE WONT BE ABLE TO GET OUTPT HD UNTIL NEXT SUNDAY. MD FAUSTIN AWARE. DC HELD UNTIL SAT AFTER PT TREATMENT
[2018-06-27] MEDS: IRON SUCROSE 100 MG in SODIUM CHLORIDE 0.9% 100 ML 100 ML IV SCH (15:36)
--- NOTE | 2018-06-27 17:56 | NUR ---
Follow up Note RD Recommendation for Physician: - Continue current diet as ordered - RD provided diet education related to ESRD on 06/20. Plan of Care: RD following, monitoring for tolerance and adequacy, diet education Nutrition reason for involvement: Follow up Primary Diagnose(s): 1. Pleural effusions. 2. Pulmonary edema, likely noncardiac. 3. Newly diagnosed end-stage renal disease, starting on dialysis. PMH: diabetes, hypertension, CKD 5/ESRD, peripheral vascular disease, and a history of noncompliance. Ht: 68in Wt: 169lb; 152.56lb BMI: 25.7kg/m2 IBW: 154lb RD Assessment: (06/27) Pt was discussed during AM rounds. Last HD was on 06/26. Visited pt in the room. Pt reported good appetite with ~100% meal intake. No GI complains noted. Will continue to monitor and follow. (06/20) Chart reviewed. Labs and meds reviewed. 57yo M, who was admitted for SOB. Pt was newly diagnosed with ESRD and was receiving HD during my visit. Pt reported good appetite with 100% recorded meal intake. Pt denied any nausea or vomiting. LBM 06/19. No chewing or swallowing difficulty reported. Pt denied any weight loss DELINEATOR. Will continue to monitor and follow. Current Diet: renal/ ADA diet Malnutrition Evaluation (06/20/2018) The patient does not meet criteria for a specified degree of malnutrition at this time. Will re-evaluate at follow-up as appropriate. Diet Education Needs Assessment: Diet education indicated, pt was agreeable with plan. Learner(s): pt Time spent: 30mins Barriers: No barriers identified. Cultural/Language Modifications: Pt speaks some Sammarinese. Explained the handouts with simple Sammarinese. Tajik version of handouts was given. Readiness: Pt eager to learn. Method: Handouts, explanation Topics: Renal diet (Na, K, Phos limitations) Understanding/Compliance: Expect good understanding/compliance from pt. Will benefit from reinforcement. All questions have been answered. Nutrition Care Level: low Signed: Melba Liz, MS, RD, LD
[2018-06-28] VITALS (8 sets, daily range): BP systolic 145–194; BP diastolic 65–91
[2018-06-28] MEDS: FUROSEMIDE 40 MG TAB PO SCH ×2 (05:16→17:52)
--- NOTE | 2018-06-28 05:16 | Progress Note ---
DATE: 06/27/2018 Cardiology Progress Note SUBJECTIVE: Orthopnea, improving. Shortness of breath, improving. No chest pain. OBJECTIVE: VITAL SIGNS: Temperature 96 degrees, heart rate 68, blood pressure 143/73, respiratory rate 20, and O2 saturation 96%. GENERAL: In no acute distress. Alert. NECK: No JVD. No carotid bruit. CHEST: Clear to auscultation. CARDIOVASCULAR: Regular rate and rhythm. Normal S1, S2. ABDOMEN: Soft and nontender. EXTREMITIES: Trace edema. MEDICATIONS: Cardiovascular medications reviewed. Hydralazine 20 mg q.4 hours, carvedilol 25 mg every 12 hours, furosemide 40 mg b.i.d., heparin 5000 units p.r.n., losartan 50 mg every 12 hours, clonidine 0.2 mg t.i.d. LABORATORY DATA: Studies reviewed. Potassium 4.5, creatinine is 5.2, hemoglobin 8.8, white blood cells 2.8, and platelets 132. AST 16, ALT is 9. ASSESSMENT: 1. Acute systolic heart failure. 2. End-stage renal disease. 3. Anemia. 4. Hypertension. 5. Diabetes mellitus. RECOMMENDATIONS: 1. Nonischemic cardiomyopathy. Continue current cardiovascular medications. 2. Outpatient followup in 2 to 4 weeks post discharge. Ankur Reyna MD AFEscobar/HAIL /[id number]
[2018-06-28] MEDS: HYDRALAZINE HCL 20 MG/ML VIAL IV PRN ×2 (05:34→15:55)
[2018-06-28] MEDS: INSULIN LISPRO 100 UNIT/1 ML 3ML VIAL SQ SCH ×4 (08:20→21:00)
[2018-06-28] MEDS ORDERED: EPOETIN ALFA 10000 UNIT/ML VIAL SC ONE (09:15)
[2018-06-28] MEDS: LOSARTAN POTASSIUM 100 MG TAB PO SCH ×2 (09:15→21:05)
[2018-06-28] MEDS: SODIUM BICARBONATE 650 MG TAB PO SCH ×2 (09:15→17:52)
[2018-06-28] MEDS: CARVEDILOL 12.5 MG TAB PO SCH ×2 (09:20→17:52)
[2018-06-28] MEDS: CLONIDINE HCL 0.2 MG TAB PO SCH ×3 (10:50→21:05)
[2018-06-28] MEDS: IRON SUCROSE 100 MG in SODIUM CHLORIDE 0.9% 100 ML 100 ML IV SCH (14:30)
[2018-06-28] MEDS ORDERED: SODIUM CHLORIDE 0.9% 1000ML 2,000 ML IV PRN (15:15)
[2018-06-28] MEDS ORDERED: ALBUMIN 25% 12.5GM 0.25 GM/ML BTL IV PRN (15:15)
[2018-06-28] MEDS ORDERED: HEPARIN SOD (PORCINE) 1000 UNIT/ML SDV IV PRN (15:15)
[2018-06-28] MEDS ORDERED: SODIUM CHLORIDE 0.9% 250ML 500 ML IV PRN (15:15)
[2018-06-28] MEDS ORDERED: MANNITOL 25% 12.5GM/50 ML VIAL IV PRN (15:15)
[2018-06-28] MEDS ORDERED: HEPARIN SOD (PORCINE) 1000 UNIT/ML SDV IV ONE (15:45)
[2018-06-28] MEDS: CALCIUM ACETATE 667 MG GELCAP PO SCH ×2 (16:49→21:05)
--- NOTE | 2018-06-28 16:50 | NUR ---
Visit made by the Spiritual Care Department Pastoral Visitor, Jose Martin. PV provided pastoral presence, hospitality, and supportive listening. Pastoral Visitor informed pt/family of the scope of [employer] and availability. KAITY NIELSON Cheesemaker Helper Spiritual Care Department O: [phone] Pager: [phone] ([phone] number calling from)
--- NOTE | 2018-06-28 18:19 | Diagnostic Imaging Report ---
EXAMINATION: CHEST 2 VIEWS INDICATION: ^f/u pleural effusion ^[id number] ^[id number] COMPARISON: Chest radiograph 06/19/2018 FINDINGS: PA and lateral views TUBES and LINES: Right IJ central venous catheter with tips overlying the right atrium and unchanged. LUNGS: Lungs are well inflated. Subsegmental atelectasis in both lung bases are increased. Mild bilateral central pulmonary vascular congestion has decreased. PLEURA: Moderate right and a small left pleural effusion, increased. No pneumothorax. Small amount of fluid along the minor fissure. HEART AND MEDIASTINUM: The cardiomediastinal silhouette is unremarkable. BONES AND SOFT TISSUES: No acute osseous lesion. Soft tissues are unremarkable. UPPER ABDOMEN: No free air under the diaphragm. IMPRESSION: Worsening bilateral pleural effusions, moderate on the right and small on the left with increasing bibasilar atelectasis. Signed by: Dr. Erika Stark M.D. on 06/28/2018 6:16 PM
--- NOTE | 2018-06-28 18:49 | Progress Note ---
DATE: 06/28/2018 Cardiology Progress Note SUBJECTIVE: No complaints today. OBJECTIVE: VITAL SIGNS: Temperature 97 degrees, heart rate 73, blood pressure 145/65, respiratory rate 14, O2 saturation 93%. GENERAL: In no acute distress. Alert. NECK: No JVD. CHEST: Clear to auscultation. CARDIOVASCULAR: Regular rate and rhythm. Normal S1 and S2. No S3 or S4. ABDOMEN: Soft, nontender. EXTREMITIES: Trace edema. MEDICATIONS: Cardiovascular medications reviewed. Carvedilol 25 mg b.i.d., hydralazine p.r.n., furosemide 40 mg b.i.d., losartan 50 mg every 12 hours, and clonidine 0.2 mg t.i.d. LABORATORY DATA: Studies reviewed. Potassium 4.5, bicarbonate 27, BUN 40, creatinine 5.2. Hemoglobin 8.8, white blood cells 2.8, and platelets are 132. ASSESSMENT: 1. Anemia. 2. End-stage renal disease. 3. Hypertension. 4. Dyslipidemia. 5. Diabetes mellitus. RECOMMENDATIONS: Continue current cardiovascular medications. The patient is awaiting dialysis chair at this point. He has acute systolic heart failure related to nonischemic cardiomyopathy. Continue beta-vasquez and ARB. MD JOSE Jones/BRIT /[id number]
[2018-06-29] VITALS (8 sets, daily range): BP systolic 141–198; BP diastolic 65–92
[2018-06-29] MEDS: FUROSEMIDE 40 MG TAB PO SCH ×2 (05:51→18:00)
[2018-06-29] MEDS: INSULIN LISPRO 100 UNIT/1 ML 3ML VIAL SQ SCH ×4 (07:30→21:29)
[2018-06-29] MEDS: HYDRALAZINE HCL 20 MG/ML VIAL IV PRN ×3 (08:44→21:30)
[2018-06-29] MEDS: LOSARTAN POTASSIUM 100 MG TAB PO SCH ×2 (08:45→21:29)
[2018-06-29] MEDS: CALCIUM ACETATE 667 MG GELCAP PO SCH ×3 (08:45→21:29)
[2018-06-29] MEDS: CARVEDILOL 12.5 MG TAB PO SCH ×2 (08:45→17:00)
[2018-06-29] MEDS: CLONIDINE HCL 0.2 MG TAB PO SCH ×3 (08:45→21:29)
[2018-06-29] MEDS: SODIUM BICARBONATE 650 MG TAB PO SCH ×2 (08:45→17:00)
--- NOTE | 2018-06-29 09:37 | NUR ---
Rounds by attending and patient to discharge on Sunday after dialysis and also complete dialysis on Sunday and newly set up dialysis center , BP elevated and medicated as per orders, denies chest pains, will monitor
[2018-06-29] MEDS: IRON SUCROSE 100 MG in SODIUM CHLORIDE 0.9% 100 ML 100 ML IV SCH (14:30)
--- NOTE | 2018-06-29 22:30 | NUR ---
Received patient. Patient laying in bed with HOB slightly elevated. Patient denies of pain. No acute distress noted. Patient in stable condition, will continue to monitor.
[2018-06-30] VITALS (8 sets, daily range): BP systolic 125–185; BP diastolic 58–86
--- NOTE | 2018-06-30 01:55 | Progress Note ---
DATE: 06/29/2018 Cardiology Progress Note SUBJECTIVE: Noncompliance. PHYSICAL EXAMINATION: VITAL SIGNS: Temperature 96.2, heart rate 72, blood pressure 144/65, respiratory rate 18, O2 saturation 94%. GENERAL: No acute distress, alert. NECK: No JVD. CHEST: Clear to auscultation. CARDIOVASCULAR: Regular rate and rhythm. Normal S1 and S2. ABDOMEN: Soft, nontender. EXTREMITIES: Trace edema. MEDICATIONS: Cardiovascular medications were reviewed. Hydralazine, clonidine, furosemide, losartan, Carvedilol. LABORATORY DATA: Creatinine elevated (ESRD). Hemoglobin 8.8, platelets 132. ASSESSMENT: 1. Acute on chronic systolic heart failure. 2. End-stage renal disease. 3. Nonischemic cardiomyopathy. 4. Atherosclerotic vascular disease (ASCVD). 5. Hypertension. RECOMMENDATIONS: 1. Continue current cardiovascular medication. 2. Outpatient followup in 4-6 weeks upon discharge. MD JOSE Jones/BRIT /[id number]
[2018-06-30] MEDS: FUROSEMIDE 40 MG TAB PO SCH ×2 (06:04→08:52)
[2018-06-30] MEDS: HYDRALAZINE HCL 20 MG/ML VIAL IV PRN ×2 (06:07→12:22)
[2018-06-30] MEDS: INSULIN LISPRO 100 UNIT/1 ML 3ML VIAL SQ SCH ×4 (08:30→20:55)
[2018-06-30] MEDS ORDERED: NIFEDIPINE CR 30 MG TAB PO ONE (08:45)
[2018-06-30] MEDS ORDERED: LISINOPRIL 10 MG TAB PO ONE (08:45)
--- NOTE | 2018-06-30 08:52 | NUR ---
MD FAUSTIN INTO SEE PT, AWARE OF ELEVATED BP , ORDERS NOTED, MD FAUSTIN AWARE THAT PT HAD 6AM DOSE OF LASIX, ORDERS NOTED TO START NEW DAILY DOSE ON 07/01/18
[2018-06-30] MEDS: SODIUM BICARBONATE 650 MG TAB PO SCH ×2 (09:00→17:00)
[2018-06-30] MEDS: CALCIUM ACETATE 667 MG GELCAP PO SCH ×3 (09:00→20:44)
[2018-06-30] MEDS: METOPROLOL TARTRATE 50 MG TAB PO SCH ×2 (09:00→20:43)
--- NOTE | 2018-06-30 13:50 | NUR ---
Visit made by the Spiritual Care Department Pastoral Visitor, Litzy Martinez. PV provided pastoral presence, hospitality, and supportive listening. Pastoral Visitor informed pt/family of the scope of [employer] and availability. KAITY NIELSON Grants Officer Spiritual Care Department O: [phone] Pager: [phone] ([phone] number calling from)
[2018-07-01] VITALS: BP 141/65
[2018-07-01 04:00] VITALS: BP 137/65
[2018-07-01] MEDS ORDERED: NIFEDIPINE CR 30 MG TAB PO SCH (06:00)
[2018-07-01] MEDS ORDERED: LISINOPRIL 10 MG TAB PO SCH (06:00)
--- NOTE | 2018-07-01 07:15 | NUR ---
Received patient and walking rounds complete. Patient awake in bed at this time, no signs of distress. Call light in reach, will continue to monitor.
[2018-07-01] MEDS: INSULIN LISPRO 100 UNIT/1 ML 3ML VIAL SQ SCH ×3 (07:30→17:15)
[2018-07-01 07:45] VITALS: BP 133/61
[2018-07-01] MEDS: CALCIUM ACETATE 667 MG GELCAP PO SCH ×2 (08:40→14:57)
[2018-07-01] MEDS: METOPROLOL TARTRATE 50 MG TAB PO SCH (08:40)
[2018-07-01] MEDS: FUROSEMIDE 40 MG TAB PO SCH (08:40)
[2018-07-01] MEDS: SODIUM BICARBONATE 650 MG TAB PO SCH ×2 (08:40→17:15)
[2018-07-01 09:14] VITALS: BP 133/61
[2018-07-01] MEDS ORDERED: LASIX40 MG PO (09:28)
[2018-07-01] MEDS ORDERED: LISINOPRIL10 MG PO (09:28)
[2018-07-01] MEDS ORDERED: LOPRESSOR25 MG PO (09:29)
[2018-07-01] MEDS ORDERED: CALCIUM ACETAT667 M1 PO (09:31)
[2018-07-01] MEDS ORDERED: PROCARDIA XL60 MG PO (09:32)
--- NOTE | 2018-07-01 10:15 | NUR ---
Patient A/O X3, even respirations on RA. Bowel sounds active, skin intact, 2+ pitting edema BLE. Right 20 gauge IV in upper arm, SL. Patient voids in urinal. Ambulatory with assistance. Call light in reach, will continue to monitor.
[2018-07-01 12:09] VITALS: BP 114/56
--- NOTE | 2018-07-01 13:19 | Progress Note ---
DATE: 07/01/2018 Cardiology Progress Note SUBJECTIVE: No complaints today. Awaiting dialysis. OBJECTIVE: VITAL SIGNS: Temperature 96.9, heart rate 70, blood pressure 133/61, respiratory rate 16, O2 saturation 95%. BMI is 22.1. GENERAL: In no acute distress, alert. NECK: No JVD. CHEST: Clear to auscultation. CARDIOVASCULAR: Regular rate and rhythm. Normal S1 and S2. ABDOMEN: Soft, nontender. EXTREMITIES: No edema. MEDICATIONS: Cardiovascular medications reviewed. Furosemide 40 mg daily, lisinopril 10 mg daily, nifedipine 60 mg daily, and metoprolol tartrate 100 mg every 12 hours. LABORATORY DATA: Studies reviewed. Sodium 138, potassium 4.5, chloride 100, bicarbonate 27, BUN 45, creatinine 5.2, glucose 105. White blood cells 2.8, hemoglobin 8.8, platelets are 132. INR 0.9. AST 16, ALT 9, alkaline phosphatase 103, total bilirubin 0.4. ASSESSMENT: 1. End-stage renal disease. 2. Acute on chronic systolic heart failure. 3. Diabetes mellitus. 4. Hypertension. 5. Dyslipidemia. 6. Anemia. 7. Nonischemic cardiomyopathy status post coronary angiogram. RECOMMENDATIONS: 1. Continue current cardiovascular medications. 2. Upon discharge, follow up in the office in four weeks. MD JOSE Jones/BRIT /[id number]
--- NOTE | 2018-07-01 15:53 | NUR ---
SPOKE WITH ISIDRO AT [facility] AND LET HER KNOW PT IS GETTING DIALYSIS TODAY, SHE STATES HE CAN STILL GO TOMORROW FOR PAPERWORK AND WIRING TECHNICIAN FOR NEXT TREATMENT ON SUNDAY AT 2PM. PT READY TO DISCHARGE FROM CASE MANAGEMENT PERSPECTIVE.
[2018-07-01 16:10] VITALS: BP 143/69
[2018-07-01] MEDS ORDERED: SODIUM BICARBO650 MG PO (16:27)
--- NOTE | 2018-07-01 16:49 | Progress Note ---
DATE: 07/01/2018 SUBJECTIVE: Mr. Hull denies any complaints of shortness of breath, chest pain, or pleurisy. He is currently receiving dialysis. He is planned to discharge chair time for tomorrow. OBJECTIVE: VITAL SIGNS: He is afebrile. His blood pressure was 114/56, heart rate in the 60s. He is 95% on room air. He is breathing 16 to 18 times a minute. GENERAL APPEARANCE: This is a very pleasant male, on dialysis, not in any distress. HEENT: Head is normocephalic, atraumatic. Pupils are round and reactive. Mucous membranes are moist. CHEST: He has a tunneled dialysis catheter in his chest. His chest has mildly decreased breath sounds at the right base. A few crackles here and there. HEART: Regular rate and rhythm. No murmurs, rubs, or gallops. ABDOMEN: Soft and nontender. EXTREMITIES: Without cyanosis or clubbing. He does have some trace to 1+ edema. LABORATORY DATA: Glucose is 176 today and most recently hemoglobin and hematocrit were 8.8 and 27 on the . Last chest x-ray done on the showed some reaccumulation of the pleural fluids, right greater than left. ASSESSMENT: 1. Pleural effusions, transudative with some mild reaccumulation. 2. Newly diagnosed systolic heart failure. 3. New dialysis start for end-stage renal disease. RECOMMENDATIONS AND PLAN: I agree that he is stable for discharge. I have asked that he follow up in the office in the next few weeks. We will check his pleural effusion and if need be, we will repeat thoracentesis. If he gets short of breath acutely in the interim, it is recommended to him that he return to the hospital for evaluation. He expressed understanding. I gave him my card and directions to the office. MD KELY Chew/BRIT /[id number]
--- NOTE | 2018-07-01 18:46 | NUR ---
Removed patients IV. Catheter tip intact and pressure dressing applied. Patient discharged from facility. No signs of distress when leaving facility.
== END 2018-07-01 18:43 | disposition home or self-care (01) | DRG 286 ==
LOC: ER 16:48 → ERHOLD 22:58 → MED/SURG 06-18 11:55
PROVIDERS: ADMIT Internal Medicine; ATTEND Internal Medicine
PROC: 0JH63XZ Insertion of Tunneled Vascular Access Device into Chest Subcutaneous Tissue and Fascia, Percutaneous Approach (ICD-10-PCS; 2018-06-18)
PROC: 02HV33Z Insertion of Infusion Device into Superior Vena Cava, Percutaneous Approach (ICD-10-PCS; 2018-06-18)
PROC: 0W993ZX Drainage of Right Pleural Cavity, Percutaneous Approach, Diagnostic (ICD-10-PCS; 2018-06-19)
PROC: 5A1D70Z Performance of Urinary Filtration, Intermittent, Less than 6 Hours Per Day (ICD-10-PCS; 2018-06-19)
PROC: 5A1D70Z Performance of Urinary Filtration, Intermittent, Less than 6 Hours Per Day (ICD-10-PCS; 2018-06-20)
PROC: 5A1D70Z Performance of Urinary Filtration, Intermittent, Less than 6 Hours Per Day (ICD-10-PCS; 2018-06-21)
PROC: 4A023N7 Measurement of Cardiac Sampling and Pressure, Left Heart, Percutaneous Approach (ICD-10-PCS; principal; 2018-06-24)
PROC: B2111ZZ Fluoroscopy of Multiple Coronary Arteries using Low Osmolar Contrast (ICD-10-PCS; 2018-06-24)
PROC: B2151ZZ Fluoroscopy of Left Heart using Low Osmolar Contrast (ICD-10-PCS; 2018-06-24)
PROC: B3101ZZ Fluoroscopy of Thoracic Aorta using Low Osmolar Contrast (ICD-10-PCS; 2018-06-24)
PROC: 5A1D70Z Performance of Urinary Filtration, Intermittent, Less than 6 Hours Per Day (ICD-10-PCS; 2018-06-24)
PROC: 5A1D70Z Performance of Urinary Filtration, Intermittent, Less than 6 Hours Per Day (ICD-10-PCS; 2018-06-26)
PROC: 30243N1 Transfusion of Nonautologous Red Blood Cells into Central Vein, Percutaneous Approach (ICD-10-PCS; 2018-06-26)
PROC: 5A1D70Z Performance of Urinary Filtration, Intermittent, Less than 6 Hours Per Day (ICD-10-PCS; 2018-06-28)
DX: I13.2 Hypertensive heart and chronic kidney disease with heart failure and with stage 5 chronic kidney disease, or end stage renal disease (principal); N18.6 End stage renal disease; I50.23 Acute on chronic systolic (congestive) heart failure; J91.8 Pleural effusion in other conditions classified elsewhere; E11.22 Type 2 diabetes mellitus with diabetic chronic kidney disease; Z99.2 Dependence on renal dialysis; Z79.4 Long term (current) use of insulin; E11.51 Type 2 diabetes mellitus with diabetic peripheral angiopathy without gangrene; I25.10 Atherosclerotic heart disease of native coronary artery without angina pectoris; D63.1 Anemia in chronic kidney disease; Z91.14 Patient's other noncompliance with medication regimen; I25.119 Atherosclerotic heart disease of native coronary artery with unspecified angina pectoris; I42.9 Cardiomyopathy, unspecified; E78.5 Hyperlipidemia, unspecified; E83.51 Hypocalcemia; Z87.891 Personal history of nicotine dependence
CPT/HCPCS: 32555; 36415; 36558; 51700; 71045; 71046; 71250; 74470; 76770; 76942; 80048; 80053; 81001; 82330; 82550; 82553; 82728; 82945; 82948; 83540; 83615; 83880; 83986; 84100; 84157; 84466; 84484; 85014; 85018; 85025; 85610; 85730; 86704; 86705; 86706; 86803; 86850; 86900; 86920; 87070; 87205; 87340; 88112; 88305; 90962; 93005; 93306; 93458; 93880; 96365; 96372; 96376; 99285; C1769; J0360; J0696; J1644; J1756; J1940; J2001; J2150; J2250; J7030; J7040; J7050; P9016; Q4081; Q9967

== ENCOUNTER 2018-07-08 09:17 | Inpatient (IN) | payer OTHER ==
[~2018-07-08] VITALS: Ht 172.7 cm; Wt 64.0 kg
[~2018-07-08 09:17] MED LIST: CALCIUM ACETAT667 M1 PO; LASIX40 MG PO; LISINOPRIL10 MG PO; LOPRESSOR25 MG PO; PROCARDIA XL60 MG PO; SODIUM BICARBO650 MG PO; no home meds
--- OUTSIDE RECORDS SUMMARY | 2018-07-08 09:20 | XMS REPORT | Clinical Summary ---
Author Author INDIRA [facility] Organization [facility] Address Unknown Phone Unavailable Care Team Providers Care Commercial Relief Driver Name Role Phone Eber Bryant PCP Unavailable [...] Not on file Results Not on fileafter 07/07/2017 Insurance Payer Benefit Subscriber ID Type Phone Address Plan / Group BLUE CROSS/BLUE SHIELD BCBS ADV xxxxxxxxxxxx [phone] [id number] [place] [address] EXCHANGE
--- OUTSIDE RECORDS SUMMARY | 2018-07-08 09:20 | XMS REPORT | Clinical Summary ---
Author Author [facility] Organization [facility] Address Unknown Phone Unavailable Care Team Providers Care Solid Waste Facility Supervisor Name Role Phone Eber Bryant MD PCP [...] 12/04/1969 COLON CANCER SCREENING 12/04/2009 SHINGLES VACCINES (#1) 12/04/2009 INFLUENZA VACCINE 11/28/2017 Results Not on fileafter 07/07/2017 Insurance Payer Benefit Subscriber ID Type Phone Address Plan / Group BCBS EXCHANGE BLUE xxxxxxxxxxxx Exchange ADVANTAGE HMO EXCH Liability Advance Directives Patient has advance care planning documents, and code status on file. For more i nformation, please contact: Keith Arteaga [address] [place] [address] Date Inactivated Comments Code Status Date Activated 10/03/2015 5:05 PM Full Code 09/24/2015 11:04 PM Code Status decision reached by: Patient
[2018-07-08] MEDS ORDERED: SODIUM CHLORIDE 0.9% 500ML 500 ML IV ONE ×2 (09:45→11:45)
--- NOTE | 2018-07-08 09:45 | NUR ---
ОЛЕГ MD TO BEDSIDE AT THIS TIME.
--- NOTE | 2018-07-08 09:55 | NUR ---
RADIOLOGY AT BEDSIDE FOR CXR AT THIS TIME.
--- NOTE | 2018-07-08 10:15 | Diagnostic Imaging Report ---
EXAM: CHEST SINGLE (PORTABLE), AP Portable DATE: 07/08/2018 Time stamp on exam: 9:40 AM INDICATION: Shortness of breath with dizziness COMPARISON: 06/28/2018 FINDINGS: LINES/TUBES: Tunneled right IJ hemodialysis catheter in appropriate position. LUNGS: Mild pulmonary vascular congestion. PLEURA: Improvement in the left pleural effusion. Persistent right pleural effusion present. HEART AND MEDIASTINUM: Normal size and contour. BONES AND SOFT TISSUES: No acute findings. IMPRESSION: Mild pulmonary vascular congestion with persistent right pleural effusion and improved left pleural effusion Signed by: Dr. Mirza Foreman DO on 07/08/2018 10:11 AM
[2018-07-08 10:22] LABS: BASOPHILS # (AUTO) 0.1 (0.0-0.1); EOSINOPHILS # (AUTO) 0.3 (0.0-0.4); EOSINOPHILS % 5.9 % (0.0-6.0); LYMPHOCYTES # (AUTO) 1.2 (1.0-3.2); LYMPHOCYTES % 23.8 % (18.0-39.1); MEAN CORPUSCULAR HEMOGLOBIN 29.3 pg (28-32); MEAN CORPUSCULAR VOLUME 94.5 fL (81-99); MONOCYTES # (AUTO) 0.7 (0.2-0.8); MONOCYTES % 13.6 % (4.4-11.3); NEUTROPHILS # (AUTO) 2.8 (2.1-6.9); NEUTROPHILS % 54.5 % (38.7-80.0); PLATELET COUNT 119 x10e3/uL (140-360); RED BLOOD COUNT 3.07 x10e6/uL (4.3-5.7); RED CELL DISTRIBUTION WIDTH 16.2 % (11.7-14.4)
[2018-07-08 10:35] LABS: ALBUMIN 2.9 g/dL (3.5-5.0); ALBUMIN/GLOBULIN RATIO 0.8 (0.8-2.0); CALCIUM 7.9 mg/dL (8.4-10.2); CREATININE, SERUM 7.31 mg/dL (0.72-1.25)
[2018-07-08 10:41] LABS: CREATINE KINASE MB 1.1 ng/mL (0-5.0)
[2018-07-08] MEDS ORDERED: ASPIRIN 325 MG TAB PO ONE (12:00)
--- OUTSIDE RECORDS SUMMARY | 2018-07-08 12:01 | XMS REPORT | Clinical Summary ---
Author Author [facility] Organization [facility] Address Unknown Phone Unavailable Care Team Providers Care Night Shift Name Role Phone Eber Bryant PCP Unavailable [...] Group BLUE CROSS/BLUE SHIELD BCBS ADV xxxxxxxxxxxx [phone] [id number] [place] [address] EXCHANGE
--- OUTSIDE RECORDS SUMMARY | 2018-07-08 12:01 | XMS REPORT | Clinical Summary ---
Author Author [facility] Organization [facility] Address Unknown Phone Unavailable Care Team Providers Care Animal Husbandry Worker Name Role Phone Eber Bryant MD PCP [...] more i nformation, please contact: Keith Arteaga [address] [place] [address] Date Inactivated Comments Code Status Date Activated 10/03/2015 5:05 PM Full Code 09/24/2015 11:04 PM Code Status decision reached by: Patient
--- NOTE | 2018-07-08 16:00 | NUR ---
PARVEZ RIGGS PROVIDED FOR PATIENT AT THIS TIME FOR COMFORT.
--- NOTE | 2018-07-08 17:05 | NUR ---
Recvd patient from ER, AA0x3, denies any chestpain or SOB, not in any distress,
[2018-07-08 17:58] VITALS: BP 151/79
[2018-07-08] MEDS ORDERED: DEXTROSE 50% SYRINGE 50 ML IV PRN (18:00)
--- NOTE | 2018-07-08 18:24 | NUR ---
called [facility] dialysis to schedule tomorrow, spoke with person Mrs Barraza
[2018-07-08 18:26] VITALS: BP 151/79
--- NOTE | 2018-07-08 19:00 | NUR ---
received report from day nurse. patient is resting comfortably in bed. bed is in lowest position and call lundberg is within reach. will continue to help patient.
[2018-07-08 19:19] LABS: CREATINE KINASE MB 1.7 ng/mL (0-5.0)
[2018-07-08 20:00] VITALS: BP 154/81
[2018-07-08] MEDS: INSULIN REGULAR, HUMAN 100 UNIT/1 ML 3ML VIAL SQ SCH (21:00)
[2018-07-09] VITALS (7 sets, daily range): BP systolic 180–221; BP diastolic 80–105
[2018-07-09] MEDS: CALCIUM ACETATE 667 MG GELCAP PO SCH ×4 (00:45→21:52)
--- NOTE | 2018-07-09 01:00 | NUR ---
patients blood pressure is 184/88. TELEVISION NEWS REPORTER notified. received new order for hydralazine 10mg IV q3h for systolic pressure greater than 150. will continue to monitor patient.
[2018-07-09] MEDS ORDERED: HYDRALAZINE HCL 20 MG/ML VIAL IV PRN (01:12)
[2018-07-09] MEDS: HYDRALAZINE HCL 20 MG/ML VIAL IV PRN ×5 (01:28→19:53)
--- NOTE | 2018-07-09 04:15 | NUR ---
patient's blood pressure is 199/95. patient is agitated that he has not been able to sleep due to the noise of the air conditioning unit. will medicate with as needed blood pressure medication. will continue to monitor patient.
--- NOTE | 2018-07-09 04:38 | Consultation ---
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 There were some people, who helped him get back and currently in the hospital. Currently, awake, alert, asymptomatic. Due for dialysis tomorrow. Laboratory tests show hemoglobin of 9. Chemistry shows a potassium of 4, bicarb 28, creatinine 7.3. BNP level is more than 5000, but the patient appears to be in no respiratory distress. ALLERGIES: NO APPARENT DRUG ALLERGIES. SOCIAL HISTORY: The patient does not smoke or drink. FAMILY HISTORY: Significant for type 2 diabetes. PAST MEDICAL HISTORY: End-stage renal disease, type 2 diabetes, hypertension. CURRENT MEDICATIONS: Lisinopril 10 mg daily, calcium acetate with meals, nifedipine 60 mg daily, pantoprazole, insulin, sodium bicarbonate tablets. PHYSICAL EXAMINATION: GENERAL: Awake, alert, lying supine, in no apparent distress. VITAL SIGNS: Blood pressure 151/79, pulse rate 57, afebrile. HEAD AND NECK: Cornea clear. Oral mucosa moist. Neck veins flat. LUNGS: Decreased air entry, right base more than left. HEART: S1 and S2 audible. ABDOMEN: Otherwise soft and nontender. EXTREMITIES: Lower extremity examination shows no edema. IMPRESSION AND PLAN: Hypotensive episode, most likely orthostatic. I am going to hold his blood pressure pills. He has evidence of sinus bradycardia with prolonged QT interval. Cardiology has been consulted. The patient is not on beta blockers. I will arrange for dialysis. His dry weight will have to be adjusted. There may be volume removal component with his hypotensive episode. Please see orders. Discussed with the patient. Discussed with RN. MD MICAH Graff/MODL /[id number]
[2018-07-09 05:18] LABS: BASOPHILS # (AUTO) 0.1 (0.0-0.1); BASOPHILS % 1.1 % (0.0-1.0); EOSINOPHILS # (AUTO) 0.2 (0.0-0.4); EOSINOPHILS % 4.9 % (0.0-6.0); HEMOGLOBIN 8.6 g/dL (14.0-18.0); LYMPHOCYTES # (AUTO) 1.1 (1.0-3.2); LYMPHOCYTES % 23.7 % (18.0-39.1); MEAN CORPUSCULAR HEMOGLOBIN 29.6 pg (28-32); MEAN CORPUSCULAR HGB CONC 31.9 g/dL (31-35); MEAN CORPUSCULAR VOLUME 92.8 fL (81-99); MONOCYTES # (AUTO) 0.5 (0.2-0.8); MONOCYTES % 11.9 % (4.4-11.3); NEUTROPHILS # (AUTO) 2.6 (2.1-6.9); NEUTROPHILS % 58.2 % (38.7-80.0); PLATELET COUNT 116 x10e3/uL (140-360); RED BLOOD COUNT 2.91 x10e6/uL (4.3-5.7); RED CELL DISTRIBUTION WIDTH 16.1 % (11.7-14.4)
[2018-07-09 05:49] LABS: CREATINE KINASE MB 0.9 ng/mL (0-5.0)
[2018-07-09 06:16] LABS: FOLATE 6.9 ng/mL (7.0-15.4)
[2018-07-09 06:34] LABS: ANION GAP 16.4 mmol/L (8-16); CREATININE, SERUM 7.99 mg/dL (0.72-1.25); MAGNESIUM 1.9 MG/DL (1.3-2.1); PHOSPHORUS 5.3 MG/DL (2.3-4.7); POTASSIUM 4.4 mmol/L (3.5-5.1)
[2018-07-09 06:45] LABS: CALCIUM 6.9 mg/dL (8.4-10.2)
[2018-07-09 06:49] LABS: THYROID STIMULATING HORMONE 1.555 uIU/mL (0.350-4.940)
--- NOTE | 2018-07-09 07:02 | NUR ---
lab called with a critical value, patients calcium is 6.9. MD's answering service notified. awaiting call back from .
[2018-07-09] MEDS ORDERED: OMEPRAZOLE 20 MG CAP PO SCH (07:30)
[2018-07-09] MEDS: INSULIN REGULAR, HUMAN 100 UNIT/1 ML 3ML VIAL SQ SCH ×4 (07:30→22:19)
[2018-07-09] MEDS ORDERED: SODIUM CHLORIDE 0.9% 250ML 500 ML IV PRN (08:30)
[2018-07-09] MEDS ORDERED: HEPARIN SOD (PORCINE) 1000 UNIT/ML SDV IV PRN (08:30)
[2018-07-09] MEDS ORDERED: SODIUM CHLORIDE 0.9% 1000ML 2,000 ML IV PRN (08:30)
[2018-07-09] MEDS: SODIUM BICARBONATE 650 MG TAB PO SCH ×2 (09:00→17:22)
[2018-07-09] MEDS ORDERED: LISINOPRIL 10 MG TAB PO SCH (09:00)
[2018-07-09] MEDS ORDERED: NON-FORMULARY MEDICATION (Nifedipine (Procardia Xl) 60 MG) PO SCH (09:00)
[2018-07-09] MEDS ORDERED: NIFEDIPINE CR 30 MG TAB PO SCH (09:00)
--- NOTE | 2018-07-09 10:20 | NUR ---
patient is in dialysis, stable, elevation in BP, Yaneli TIE PULLER aware of it
[2018-07-09] MEDS: FOLIC ACID 1 MG TAB PO SCH (10:30)
[2018-07-09] MEDS ORDERED: ONDANSETRON HCL INJ 2MG/ML 2ML 2 MG/ML VIAL IV PRN (10:45)
[2018-07-09] MEDS ORDERED: ACETAMINOPHEN 325 MG TAB PO PRN (10:45)
[2018-07-09] MEDS: PANTOPRAZOLE SOD 40 MG TABEC PO SCH (14:46)
[2018-07-09] MEDS: LISINOPRIL 10 MG TAB PO SCH (14:52)
[2018-07-09] MEDS: METOPROLOL TARTRATE 25 MG TAB PO SCH (14:52)
--- NOTE | 2018-07-09 15:35 | Consultation ---
DATE OF CONSULTATION: 07/09/2018 Cardiology Consultation CONSULTING PHYSICIAN: Ankur Reyna M.D., Interventional Cardiology. REASON FOR CONSULTATION: Presyncope. HISTORY OF PRESENT ILLNESS: Mr. 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 He denies any associated chest pain, shortness of breath, headaches, or palpitations. He feels better currently, dialysis being initiated this morning. He has no other complaints at this time. ALLERGIES: NO KNOWN DRUG ALLERGIES. PAST MEDICAL HISTORY: As per HPI. SOCIAL HISTORY: No smoking, alcohol, or drugs. FAMILY HISTORY: Diabetes mellitus. REVIEW OF SYSTEMS: A 12 system review negative except for as noted above. HOME MEDICATIONS: Furosemide 40 mg daily, lisinopril 10 mg daily, metoprolol tartrate 100 mg b.i.d., nifedipine extended release 60 mg daily. PHYSICAL EXAMINATION: VITAL SIGNS: Temperature 96.7, heart rate 82, respiratory rate 18, blood pressure 193/96, O2 saturation 98%. On admission, initial blood pressure was 96/53, antihypertensives have been mostly held since. GENERAL: No acute distress, alert. NECK: No JVD. CHEST: Clear to auscultation. CARDIOVASCULAR: Regular rate and rhythm. Normal S1, S2. No S3, no S4. ABDOMEN: Soft, nontender. EXTREMITIES: Trace edema. CARDIOVASCULAR MEDICATIONS: Reviewed. CURRENT MEDICATIONS: Include hydralazine p.r.n. 10 mg IV 3 hours, lisinopril 10 mg daily, heparin 4000 p.r.n. STUDIES: Reviewed. White blood cells 12.4, hemoglobin 8.6, platelets 116. INR 0.9. Sodium 137, potassium 4.4, chloride 102, bicarbonate 23, BUN 51, creatinine 7.9, glucose 97. Troponin I -0.077, TSH 1.5. Telemetry, in sinus rhythm. ASSESSMENT: 1. Presyncope, hypotension related. 2. Chronic systolic heart failure. 3. End-stage renal disease. 4. Nonischemic cardiomyopathy. 5. Hypertension. 6. Diabetes mellitus. 7. Dyslipidemia. 8. Anemia. RECOMMENDATIONS: 1. Monitor H and H. Hemoglobin has remained stable when compared to lab values from previous visit. Either this is bleeding related. 2. Hypotension. I suspect this related to medications. We will gradually resume antihypertensives at lower dose and assess response. Follow management per Nephrology. MD JOSE Jones/MODVik /[id number]
--- NOTE | 2018-07-09 15:50 | NUR ---
rechecked BP manually 190/85, PRN BP med given
--- NOTE | 2018-07-09 19:00 | NUR ---
received report from day nurse. patient is resting in bed. bed is in lowest position and call lundberg is within reach. will continue to monitor patient.
--- NOTE | 2018-07-09 19:50 | NUR ---
patient's blood pressure is elevated, consulting physician has ordered new blood pressure medication for patient. will medicate patient and continue to monitor patient's blood pressure.
[2018-07-09] MEDS: NIFEDIPINE CR 30 MG TAB PO SCH (19:53)
--- NOTE | 2018-07-09 22:17 | NUR ---
patients blood pressure has been rechecked and found to be 199/80. will continue to monitor patients blood pressure.
[2018-07-10] VITALS (7 sets, daily range): BP systolic 116–171; BP diastolic 57–86
--- NOTE | 2018-07-10 | NUR ---
PATIENTS BLOOD PRESSURE HAS BEEN REASSESSED AND FOUND TO BE 155/72. WILL CONTINUE TO MONITOR PATIENT'S BLOOD PRESSURE.
--- NOTE | 2018-07-10 01:16 | NUR ---
PATIENT WAS NOTED TO BE EXTREMELY SWEATY AND LETHARGIC. BLOOD SUGAR WAS CHECKED AND FOUND TO BE 39. PATIENT WAS GIVEN 3 CUPS OF ORANGE JUICE, WELL MEDICATED WITH DEXTROSE 50%. WILL REASSESS SUGAR IN 15MINUTES.
--- NOTE | 2018-07-10 01:33 | NUR ---
PATIENT'S SUGAR HAS BEEN REASSESSED AND FOUND TO BE 147. PATIENT IS AWAKE AND TALKING. PATIENT HAS BEEN OFFERED A SANDWICH BUT IS DECLINING IT AT THIS TIME. WILL CONTINUE TO MONITOR PATIENT'S BLOOD SUGAR.
[2018-07-10 05:29] LABS: BASOPHILS # (AUTO) 0.1 (0.0-0.1); BASOPHILS % 1.7 % (0.0-1.0); EOSINOPHILS # (AUTO) 0.1 (0.0-0.4); EOSINOPHILS % 1.7 % (0.0-6.0); HEMATOCRIT 32.2 % (38.2-49.6); HEMOGLOBIN 10.2 g/dL (14.0-18.0); LYMPHOCYTES # (AUTO) 0.9 (1.0-3.2); LYMPHOCYTES % 17.3 % (18.0-39.1); MEAN CORPUSCULAR HEMOGLOBIN 29.9 pg (28-32); MEAN CORPUSCULAR HGB CONC 31.7 g/dL (31-35); MEAN CORPUSCULAR VOLUME 94.4 fL (81-99); MONOCYTES # (AUTO) 0.6 (0.2-0.8); MONOCYTES % 11.4 % (4.4-11.3); NEUTROPHILS # (AUTO) 3.5 (2.1-6.9); NEUTROPHILS % 67.5 % (38.7-80.0); PLATELET COUNT 127 x10e3/uL (140-360); RED BLOOD COUNT 3.41 x10e6/uL (4.3-5.7); RED CELL DISTRIBUTION WIDTH 16.3 % (11.7-14.4)
[2018-07-10 05:55] LABS: ANION GAP 14.3 mmol/L (8-16); CALCIUM 7.7 mg/dL (8.4-10.2); CREATININE, SERUM 5.41 mg/dL (0.72-1.25); POTASSIUM 4.3 mmol/L (3.5-5.1)
--- NOTE | 2018-07-10 07:15 | NUR ---
Walking rounds done. Patient is awake and alert x3 in NAD. He denies any pain at this time. Tele#[phone], SR@61. POC discussed. Patient was instructed to call for assistance and verbalized understanding. Bed in lowest position, locked, and call lundberg within reach.
--- NOTE | 2018-07-10 07:18 | NUR ---
report given to day nurse. patient is resting comfortably in bed. bed is in lowest position and call lundberg is within reach.
[2018-07-10] MEDS: INSULIN REGULAR, HUMAN 100 UNIT/1 ML 3ML VIAL SQ SCH ×4 (08:00→20:34)
[2018-07-10] MEDS: LOSARTAN POTASSIUM 100 MG TAB PO SCH ×2 (08:54→17:14)
[2018-07-10] MEDS: FOLIC ACID 1 MG TAB PO SCH (08:54)
[2018-07-10] MEDS: PANTOPRAZOLE SOD 40 MG TABEC PO SCH (08:54)
[2018-07-10] MEDS: LISINOPRIL 10 MG TAB PO SCH (08:55)
[2018-07-10] MEDS: SODIUM BICARBONATE 650 MG TAB PO SCH ×2 (08:55→17:14)
[2018-07-10] MEDS: CALCIUM ACETATE 667 MG GELCAP PO SCH ×3 (09:04→20:36)
[2018-07-10] MEDS: METOPROLOL TARTRATE 25 MG TAB PO SCH (12:59)
--- NOTE | 2018-07-10 16:53 | NUR ---
Dr. Rivas making rounds. Lilliam, Dialysis nurse notified of treatment needed for tomorrow.
[2018-07-10] MEDS: NIFEDIPINE CR 30 MG TAB PO SCH (20:36)
[2018-07-11] VITALS (10 sets, daily range): BP systolic 149–195; BP diastolic 70–97
[2018-07-11] MEDS: HYDRALAZINE HCL 20 MG/ML VIAL IV PRN (00:19)
--- NOTE | 2018-07-11 00:57 | Progress Note ---
DATE: 07/10/2018 Cardiology Progress Note SUBJECTIVE: No complaints today. Had lightheaded spells earlier this morning, however, no complaints. Otherwise, chest pain and shortness of breath free. OBJECTIVE: VITAL SIGNS: Temperature 97.4, heart rate 67, respiratory rate 16, blood pressure 169/82, O2 saturation 97% on room air. GENERAL: In no acute distress, alert. NECK: No JVD. CHEST: Clear to auscultation. CARDIOVASCULAR: Regular rate and rhythm. Normal S1, S2. Systolic ejection murmur. No S3. No S4. ABDOMEN: Soft, nontender. EXTREMITIES: No edema. CARDIOVASCULAR MEDICATIONS: Reviewed. Losartan 50 mg b.i.d., sodium bicarbonate 650 mg b.i.d., metoprolol tartrate 25 mg every 12 hours, lisinopril 10 mg daily, we will discontinue given the patient being on losartan too. Nifedipine extended release 60 mg daily. LABS: Studies reviewed. White blood cells 5.1, hemoglobin 10.2, platelets 127. Sodium 136, potassium 4.3, chloride 100, bicarbonate 26, BUN 33, creatinine 5.4, glucose 152, magnesium 2. BNP more than 5000. Telemetry so far has remained sinus rhythm with sinus bradycardia, episodes in the 50s. ASSESSMENT AND PLAN: 1. Syncope in the setting of hypotension, possibly orthostatic. 2. Sinus bradycardia with prolonged QT, suspect it is associated to the patient's home beta-vasquez use. 3. Continue telemetry while in-house. 4. Chronic systolic heart failure in the setting of nonischemic cardiomyopathy and recent coronary angiogram. Adjust dose of beta-vasquez and ARB or PRADEEP inhibitor upon discharge. 5. Further recommendations to follow upon discharge. The patient advised to follow up for outpatient telemetry monitoring. MD JOSE Jones/BRIT /[id number]
[2018-07-11 01:01] LABS: BASOPHILS # (AUTO) 0.1 (0.0-0.1); BASOPHILS % 1.7 % (0.0-1.0); EOSINOPHILS # (AUTO) 0.2 (0.0-0.4); EOSINOPHILS % 3.3 % (0.0-6.0); HEMATOCRIT 30.1 % (38.2-49.6); HEMOGLOBIN 9.6 g/dL (14.0-18.0); LYMPHOCYTES # (AUTO) 1.1 (1.0-3.2); LYMPHOCYTES % 19.6 % (18.0-39.1); MEAN CORPUSCULAR HEMOGLOBIN 29.9 pg (28-32); MEAN CORPUSCULAR HGB CONC 31.9 g/dL (31-35); MEAN CORPUSCULAR VOLUME 93.8 fL (81-99); MONOCYTES # (AUTO) 0.7 (0.2-0.8); MONOCYTES % 11.6 % (4.4-11.3); NEUTROPHILS # (AUTO) 3.7 (2.1-6.9); NEUTROPHILS % 63.6 % (38.7-80.0); PLATELET COUNT 134 x10e3/uL (140-360); RED BLOOD COUNT 3.21 x10e6/uL (4.3-5.7); RED CELL DISTRIBUTION WIDTH 16.5 % (11.7-14.4)
[2018-07-11 01:21] LABS: ANION GAP 18.1 mmol/L (8-16); CALCIUM 8.1 mg/dL (8.4-10.2); CREATININE, SERUM 6.35 mg/dL (0.72-1.25); POTASSIUM 5.1 mmol/L (3.5-5.1)
--- NOTE | 2018-07-11 07:00 | NUR ---
Walking rounds done and report given. Patient is awake and alertx3 without any complaints voiced. Tele#23, SR@71 POC discussed. Bed in lowest position, locked and call lundberg within reach.
[2018-07-11] MEDS: INSULIN REGULAR, HUMAN 100 UNIT/1 ML 3ML VIAL SQ SCH (07:30)
[2018-07-11] MEDS: PANTOPRAZOLE SOD 40 MG TABEC PO SCH (08:32)
[2018-07-11] MEDS: CALCIUM ACETATE 667 MG GELCAP PO SCH ×3 (09:00→21:24)
[2018-07-11] MEDS ORDERED: HYDRALAZINE HCL 25 MG TAB PO SCH (09:30)
--- NOTE | 2018-07-11 09:30 | NUR ---
Dialysis nurse in room starting dialysis treatment. POWER STATION OPERATORYaneli rounding and discussed plan to go home after dialysis if BP is controlled. New orders for Hydralazine and Lasix to be started after dialysis along with other AM meds that were held for treatment.
[2018-07-11] MEDS ORDERED: COZAAR100 MG PO (09:31)
[2018-07-11] MEDS ORDERED: LOPRESSOR25 MG PO (09:31)
[2018-07-11] MEDS ORDERED: FOLIC ACID1 MG PO (09:31)
[2018-07-11] MEDS ORDERED: NIFEDIPINE ER30 M1 PO (09:31)
[2018-07-11] MEDS ORDERED: HYDRALAZINE HCL25 MG PO (09:31)
--- NOTE | 2018-07-11 13:20 | NUR ---
Dialysis nurse completed treatment. Patient without any complaints. Call lundberg within reach.
[2018-07-11] MEDS: FUROSEMIDE INJ 10 MG/ML 4 ML VIAL IV SCH (13:45)
[2018-07-11] MEDS: SODIUM BICARBONATE 650 MG TAB PO SCH ×2 (13:45→16:41)
[2018-07-11] MEDS: LOSARTAN POTASSIUM 100 MG TAB PO SCH ×2 (13:45→16:41)
[2018-07-11] MEDS: FOLIC ACID 1 MG TAB PO SCH (13:45)
[2018-07-11] MEDS: HYDRALAZINE HCL 25 MG TAB PO SCH ×2 (14:00→21:24)
--- NOTE | 2018-07-11 15:43 | NUR ---
SOCIAL WORK INITIAL ASSESSMENT Rainbow Trout Farm Manager to bedside to discuss plan of care with patient/family. CM/SW role and care transitions discussed. Anticipated discharge plan discussed along with duration of care. CM/SW discussed patients right to make decisions in care. CM/SW work hours given. 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 Name and number was also written on the patients whiteboard. Patient verbalized understanding of discussion. CM will follow-up with ongoing discharge and transition of care needs.
[2018-07-11] MEDS: METOPROLOL TARTRATE 25 MG TAB PO SCH (16:43)
--- NOTE | 2018-07-11 17:55 | NUR ---
Notified Yaneli Borrego NP of elevated BP, received orders to give bedtime Nifedipine dose now, start Cardura 4mg PO daily tomorrow, and no discharge for today
[2018-07-11] MEDS: NIFEDIPINE CR 30 MG TAB PO SCH (18:02)
--- NOTE | 2018-07-11 20:20 | NUR ---
RECEIVED PATIENT AAOX3, BREATHING EVEN AND UNLABORED ON RA. DENIES ANY PAIN. UPDATED PATIENT TO PLAN OF CARE. NO NEEDS VOICED AT THIS TIME. BED LOCKED, AND IN LOWEST POSITION, CALL LIGHT WITHIN EASY REACH. WILL CONTINUE TO MONITOR THE PATIENT CLOSELY.
--- NOTE | 2018-07-11 20:30 | NUR ---
Gave face to face report to Lilliam VASQUEZ and transferred patient to room 110. Bedside report given.
[2018-07-12] VITALS (10 sets, daily range): BP systolic 117–190; BP diastolic 58–93
[2018-07-12] MEDS: HYDRALAZINE HCL 20 MG/ML VIAL IV PRN ×2 (00:47→16:55)
--- NOTE | 2018-07-12 03:04 | Progress Note ---
DATE: 07/11/2018 Cardiology Progress Note SUBJECTIVE: No complaints today. Denies recurrent lightheadedness. No chest pain or shortness of breath. OBJECTIVE: VITAL SIGNS: Temperature 96.7, heart rate 74, blood pressure 175/79, respiratory rate 18, and O2 saturation 96%. GENERAL: In no acute distress. Alert. NECK: No JVD. CHEST: Clear to auscultation. CARDIOVASCULAR: Regular rate and rhythm. Normal S1 and S2. ABDOMEN: Soft. EXTREMITIES: Trace edema. CARDIOVASCULAR MEDICATIONS: Reviewed. Losartan 50 mg b.i.d., nifedipine 60 mg at bedtime, furosemide 40 mg daily, metoprolol tartrate 25 mg every 12 hours, and hydralazine 25 mg b.i.d. being uptitrated to q.8 hours. LABORATORY DATA: Studies reviewed. Creatinine 6.3, potassium 5.1, bicarbonate 25, hemoglobin 9.6, white blood cells 5.7, platelets 134, AST 21, ALT 20, total bilirubin 0.5, alk phos 149. ASSESSMENT: 1. Syncope. 2. Prolonged QT. 3. End-stage renal disease. 4. Hypertension. 5. Chronic systolic heart failure. 6. Anemia. RECOMMENDATIONS: 1. Continue CV meds. 2. Followup as outpatient for aviation consultant, so far has remained in sinus rhythm and episodes of mild sinus bradycardia, asymptomatic throughout the hospital stay. MD JOSE Jones/HAIL /[id number]
[2018-07-12] MEDS: HYDRALAZINE HCL 25 MG TAB PO SCH ×3 (06:49→22:09)
[2018-07-12] MEDS: PANTOPRAZOLE SOD 40 MG TABEC PO SCH (08:30)
[2018-07-12] MEDS: DOXAZOSIN MESYLATE 2 MG TAB PO SCH ×2 (09:00→13:00)
[2018-07-12] MEDS ORDERED: CARDURA2 MG PO (10:04)
[2018-07-12] MEDS: FUROSEMIDE INJ 10 MG/ML 4 ML VIAL IV SCH (10:08)
[2018-07-12] MEDS: LOSARTAN POTASSIUM 100 MG TAB PO SCH ×2 (10:08→16:52)
[2018-07-12] MEDS: FOLIC ACID 1 MG TAB PO SCH (10:08)
[2018-07-12] MEDS: CALCIUM ACETATE 667 MG GELCAP PO SCH ×3 (10:08→22:09)
[2018-07-12] MEDS: SODIUM BICARBONATE 650 MG TAB PO SCH ×2 (10:08→16:52)
[2018-07-12] MEDS: METOPROLOL TARTRATE 25 MG TAB PO SCH (13:00)
--- NOTE | 2018-07-12 15:00 | Progress Note ---
DATE: Cardiology Progress Note SUBJECTIVE: No complaints today. Denies lightheadedness or shortness of breath. Denies chest pain or palpitations. OBJECTIVE: VITAL SIGNS: Temperature 96.9, heart rate 76, blood pressure 117/58, respiratory rate 18, O2 saturation 99%. GENERAL: In no acute distress, alert. NECK: No JVD. CHEST: Clear to auscultation. CARDIOVASCULAR: Regular rate and rhythm. Normal S1 and S2. Systolic ejection murmur 05/05. No S3, no S4. ABDOMEN: Soft, nontender. EXTREMITIES: No edema. Warm distal extremities. CARDIOVASCULAR MEDICATIONS: Reviewed. Losartan 50 mg b.i.d., nifedipine 60 mg at bedtime, furosemide 40 mg daily, metoprolol tartrate 25 mg every 12 hours, and hydralazine 25 mg every 8 hours. LABORATORY DATA: Studies reviewed. Sodium 139, potassium 5.1, chloride 101, bicarbonate 25, BUN 47, creatinine 6.3, glucose 109. White blood cells 5.7, hemoglobin 9.6, platelets 134. AST 21, ALT 20. ASSESSMENT: 1. A 57-year-old man presenting with syncope in the setting of hypotension, now with no recurrent symptoms after adjustment of medications. 2. Sinus bradycardia in the setting of beta-vasquez use, improved after decrease in dose. 3. Chronic systolic heart failure in the setting of nonischemic cardiomyopathy, status post recent coronary angiography at this institution. 4. Hypertension. 5. Anemia. 6. Dyslipidemia. RECOMMENDATIONS: 1. Continue current cardiovascular medications. 2. Discharge home okay from cardiac standpoint with outpatient followup for consideration of outpatient telemetry monitoring. MD JOSE Jones/BRIT /[id number]
--- NOTE | 2018-07-12 15:03 | NUR ---
SPOKE WITH KEVIN HYDROGRAPHICAL TECHNICAL OFFICER WITH MD HUFF, MADE AWARE OF CURRENT BP, ORDERS NOTED TO NOTIFY REFUGIO WHENEVER HE ROUNDS THAT BP IS NOT GOING DOWN, 1008 139/65, HR 76BPM 1200 153/78 HR 75BPM 1400 163/77 HR 77BPM
--- NOTE | 2018-07-12 16:52 | NUR ---
SPOKE WITH KEVIN SEO INTERN WITH MD HUFF, MADE AWARE OF CURRENT BP, MEDS GIVEN PER ORDER, PT SITTING IN BED, CALL LIGHT WITHIN REACH Addendum: 07/12/18 at 1653 by Obdulia Cali RN WILL NOTIFY MD HUFF UPON ROUNDING
--- NOTE | 2018-07-12 18:30 | NUR ---
VOICES NO NEEDS, NO CHANGE IN CONDITION, 168/79, 77HR, 97%, 20 RR, 96.9F
[2018-07-12] MEDS ORDERED: SOD POLYSTYRENE SULFONATE SUSP 15 GM/60 ML BTL PO ONE (19:00)
--- NOTE | 2018-07-12 19:15 | NUR ---
MD ORTIZ INTO SEE PT, DISCUSSED POC, FREIGHT CLAIM INVESTIGATOR TELEPHONED DIALYSIS , NOTIFIED OF NEED FOR DIALYSIS FOR AM PER DR ORTIZ
[2018-07-12] MEDS: NIFEDIPINE CR 30 MG TAB PO SCH (22:09)
[2018-07-13] VITALS (8 sets, daily range): BP systolic 130–185; BP diastolic 60–91
[2018-07-13] MEDS: HYDRALAZINE HCL 20 MG/ML VIAL IV PRN (00:55)
[2018-07-13 06:35] LABS: ANION GAP 14.8 mmol/L (8-16); CALCIUM 7.7 mg/dL (8.4-10.2); POTASSIUM 4.8 mmol/L (3.5-5.1)
[2018-07-13] MEDS: HYDRALAZINE HCL 25 MG TAB PO SCH ×3 (06:43→21:34)
[2018-07-13] MEDS: PANTOPRAZOLE SOD 40 MG TABEC PO SCH (07:30)
[2018-07-13] MEDS: DOXAZOSIN MESYLATE 2 MG TAB PO SCH ×2 (09:00→21:34)
[2018-07-13] MEDS: FUROSEMIDE INJ 10 MG/ML 4 ML VIAL IV SCH (09:00)
[2018-07-13] MEDS: CALCIUM ACETATE 667 MG GELCAP PO SCH ×3 (09:00→21:34)
[2018-07-13] MEDS: FOLIC ACID 1 MG TAB PO SCH (09:00)
[2018-07-13] MEDS: SODIUM BICARBONATE 650 MG TAB PO SCH ×2 (09:00→17:40)
[2018-07-13] MEDS: LOSARTAN POTASSIUM 100 MG TAB PO SCH ×2 (10:25→17:40)
--- NOTE | 2018-07-13 11:05 | NUR ---
Patient alert and responsive, no resp distress, LS diminished with upper lobe rales, VSS this morning and starting dialysis at this time, call light within reach, will monitor.
[2018-07-13] MEDS: METOPROLOL TARTRATE 25 MG TAB PO SCH (12:45)
--- NOTE | 2018-07-13 15:59 | NUR ---
Patient completed dialysis at this time and 2L extracted, BP elevated at 170/65 and PUBLIC HOUSING MANAGER for attending notified.
--- NOTE | 2018-07-13 18:52 | NUR ---
Call from BLANKET WASHER and orders to increase Cardura to BID, orders in place.
[2018-07-13] MEDS: NIFEDIPINE CR 30 MG TAB PO SCH (21:34)
[2018-07-14] VITALS: BP 187/88
--- NOTE | 2018-07-14 01:03 | Progress Note ---
DATE: 07/13/2018 Cardiology Progress Note SUBJECTIVE: No complaints today. Denies chest pain, lightheadedness, syncope, palpitations, or shortness of breath. OBJECTIVE: VITAL SIGNS: Temperature 96.8, heart rate 78, blood pressure 167/68, respiratory rate 20, O2 saturation 97%. GENERAL: In no acute distress, alert. NECK: No JVD. CHEST: Clear to auscultation. CARDIOVASCULAR: Regular rate and rhythm. Normal S1 and S2. ABDOMEN: Soft. EXTREMITIES: Trace edema. MEDICATIONS: Cardiovascular medications reviewed. Losartan 50 mg b.i.d., doxazosin 4 mg daily, nifedipine 60 mg at bedtime, hydralazine 10 mg q.3 hours p.r.n., furosemide 40 mg daily, metoprolol tartrate 25 mg every 12 hours, hydralazine 25 mg every 8 hours p.o. LABORATORY DATA: Studies reviewed. Potassium 4.8, bicarbonate 28, creatinine 6, hemoglobin 9.6, white blood cells 5.7, platelets of 134, AST 21, ALT 20. ASSESSMENT: 1. Presyncope in the setting of hypotension. 2. End-stage renal disease. 3. Nonischemic cardiomyopathy. 4. Chronic systolic heart failure. 5. Hypertension. RECOMMENDATIONS: 1. Monitor H and H. 2. Outpatient followup for consideration of telemetry monitoring, so far no events while in-house. 3. Undergoing hemodialysis today. Monitor blood pressure following completion of dialysis, holding parameters for antihypertensives advised. Ankur Reyna MD AFEscobar/MODL /[id number]
[2018-07-14 04:00] VITALS: BP 131/62
[2018-07-14] MEDS: HYDRALAZINE HCL 25 MG TAB PO SCH ×2 (05:58→14:00)
[2018-07-14] MEDS: PANTOPRAZOLE SOD 40 MG TABEC PO SCH (07:30)
[2018-07-14] MEDS ORDERED: CARDURA8 MG PO (07:31)
[2018-07-14 07:34] VITALS: BP 141/70
--- NOTE | 2018-07-14 07:59 | NUR ---
Received patient this morning and alert and responsive, BP 141/70, no resp distress, in bed and call light within reach, denies any pains, will monitor BP and possible discharge to home today if BP remains stable.
[2018-07-14] MEDS: FUROSEMIDE INJ 10 MG/ML 4 ML VIAL IV SCH (08:22)
[2018-07-14] MEDS: DOXAZOSIN MESYLATE 2 MG TAB PO SCH ×2 (08:24→16:32)
[2018-07-14] MEDS: SODIUM BICARBONATE 650 MG TAB PO SCH ×2 (08:24→16:33)
[2018-07-14] MEDS: LOSARTAN POTASSIUM 100 MG TAB PO SCH ×2 (08:24→16:33)
[2018-07-14] MEDS: FOLIC ACID 1 MG TAB PO SCH (08:24)
[2018-07-14] MEDS: CALCIUM ACETATE 667 MG GELCAP PO SCH ×2 (08:24→15:00)
[2018-07-14] MEDS: METOPROLOL TARTRATE 25 MG TAB PO SCH (12:45)
[2018-07-14 12:59] VITALS: BP 148/70
--- NOTE | 2018-07-14 14:30 | NUR ---
Visit made by the Spiritual Care Department Pastoral Visitor, Litzy Martinez. PV provided pastoral presence, hospitality, and supportive listening. Pastoral Visitor informed pt/family of the scope of Fitting Room Attendant Services and availability. KAITY NIELSON Filler Wiper Spiritual Care Department O: [phone] Pager: [phone] ([phone] number calling from)
[2018-07-14 16:30] VITALS: BP 161/75
--- NOTE | 2018-07-14 17:38 | NUR ---
Patient cleared by three knife trimmer and customs examiner for discharge and BP better, orders per attending practitioner to discharge patient. BP meds adjusted by attending, education provided on administration of medications at different times to avoid low BP and dizziness, to f/u with PCP and continue on dialysis outpatient on Tuesdays, , Sun. Provided prescriptions to patient and discharge summary. IV line removed and cath tip in place,dressing applied, right subclavian cath in place and no bleeding.
--- NOTE | 2018-07-14 18:00 | NUR ---
Patient waiting for his ride for home
--- NOTE | 2018-07-14 22:41 | Progress Note ---
DATE: Cardiology Progress Note SUBJECTIVE: No complaints today. The patient possibly being discharged later this afternoon. OBJECTIVE: VITAL SIGNS: Temperature 98.6, heart rate 70, blood pressure 161/75, respiratory rate 20, O2 saturation 96%. GENERAL: In no acute distress. Alert. NECK: No JVD. CHEST: Clear to auscultation. CARDIOVASCULAR: Regular rate and rhythm. Normal S1 and S2. No S3. No S4. ABDOMEN: Soft, nontender. EXTREMITIES: Trace edema. CARDIOVASCULAR MEDICATIONS: Reviewed: 1. Losartan 50 mg b.i.d. 2. Doxazosin 8 mg b.i.d. 3. Nifedipine 60 mg at bedtime. 4. Hydralazine p.r.n. 10 mg every 3 hours. 5. Metoprolol tartrate 25 mg every 12 hours. 6. Hydralazine 25 mg p.o. q.8 hours. LABORATORY DATA: Sodium 138, potassium 4.8, bicarbonate 28, creatinine 6, glucose 104. White blood cells 5.7, hemoglobin 9.6, platelets 134, AST 21, ALT 20. ASSESSMENT: 1. A 57-year-old man presenting with presyncopal symptoms in the setting of hypotension. 2. End-stage renal disease. 3. Hypertension. 4. Nonischemic cardiomyopathy. 5. Chronic systolic heart failure. 6. Diabetes mellitus. 7. Dyslipidemia. RECOMMENDATIONS: 1. Continue current cardiovascular medications. 2. Monitor H and H. 3. Outpatient followup for telemetry monitoring advised. MD JOSE Jones/BRIT /[id number]
--- NOTE | 2018-07-15 18:37 | Discharge Summary ---
ADMISSION DIAGNOSES: 1. Near syncope. 2. Hypertension with end-stage renal disease. 3. Type 2 diabetes with end-stage renal disease. 4. Anemia due to chronic kidney disease. 5. Chronic kidney disease. 6. Peripheral artery disease. 7. New end-stage renal disease. DISCHARGE DIAGNOSES: 1. Near syncope. 2. Hypertension with end-stage renal disease. 3. Type 2 diabetes with end-stage renal disease. 4. Anemia due to chronic kidney disease. 5. Chronic kidney disease. 6. Peripheral artery disease. 7. New end-stage renal disease. 8. Hyperkalemia. 9. Hypocalcemia. HISTORY: The patient has a history of hypertension, type 2 diabetes, end-stage renal disease, on dialysis Sunday, , and Sunday . PAST SURGICAL HISTORY: Amputation of left pinky toe, AV fistula access. FAMILY HISTORY: Diabetes and hypertension. SOCIAL HISTORY: The patient admits to occasional alcohol use and history of tobacco use. HOSPITAL COURSE: A 57-year-old male with end-stage renal, on dialysis x2 weeks, had his last dialysis 2 days ago, got in the car and was walking across the parking lot at the social security office when he nearly passed out. On admission, the patient had a chest x-ray that showed mild pulmonary vascular congestion with persistent right pleural effusion and improved left pleural effusion. Bilateral carotid Doppler negative. Echo with EF of 45% to 50%. Bilateral lower extremity arterial Doppler shows possible significant arterial stenosis on the left. The patient was resumed on dialysis per Nephrology. Cardiology was consulted due to a prolonged QT, so his beta-vasquez was changed per Cardiology recommendation. The patient was ready to discharge home, but his hypertension was uncontrolled after many days of changing the medications. The patient was discharged home with Cardura 8 mg b.i.d., folic acid, hydralazine 25 mg b.i.d., losartan 50 mg b.i.d., metoprolol 25 mg q.12h., and nifedipine 60 mg at bedtime. He will follow up with primary care in 1 to 2 weeks and Nephrology for dialysis as scheduled. Vital signs stable, the patient is afebrile. The patient understands discharge instructions and agrees to plan. SAIGE Armstrong/MODL /[id number]
== END 2018-07-14 18:21 | disposition home or self-care (01) | DRG 314 ==
LOC: ER 09:17 → ERHOLD 11:26 → IMCU 17:12 → OBSVTOIN 07-11 18:26 → MED/SURG 07-11 20:20
PROVIDERS: ADMIT Internal Medicine; ATTEND Internal Medicine
PROC: 5A1D70Z Performance of Urinary Filtration, Intermittent, Less than 6 Hours Per Day (ICD-10-PCS; principal; 2018-07-11)
PROC: 5A1D70Z Performance of Urinary Filtration, Intermittent, Less than 6 Hours Per Day (ICD-10-PCS; 2018-07-13)
DX: I95.9 Hypotension, unspecified (principal); N18.6 End stage renal disease; I13.2 Hypertensive heart and chronic kidney disease with heart failure and with stage 5 chronic kidney disease, or end stage renal disease; I42.9 Cardiomyopathy, unspecified; I50.22 Chronic systolic (congestive) heart failure; E11.22 Type 2 diabetes mellitus with diabetic chronic kidney disease; E11.65 Type 2 diabetes mellitus with hyperglycemia; Z99.2 Dependence on renal dialysis; Z79.4 Long term (current) use of insulin; D63.1 Anemia in chronic kidney disease; E11.51 Type 2 diabetes mellitus with diabetic peripheral angiopathy without gangrene; E83.39 Other disorders of phosphorus metabolism; I45.81 Long QT syndrome; R00.1 Bradycardia, unspecified; T46.1X5A Adverse effect of calcium-channel blockers, initial encounter; E87.5 Hyperkalemia; E83.51 Hypocalcemia
CPT/HCPCS: 36415; 71045; 80048; 80053; 82550; 82553; 82607; 82746; 82948; 83036; 83540; 83735; 83880; 84100; 84443; 84466; 84484; 85025; 86704; 86705; 86706; 87350; 93005; 93306; 93880; 93925; 97139; 99285; G0378; J0360; J1644; J1940; J7030; J7040; J7799

== ENCOUNTER 2018-09-27 14:25 | Inpatient (IN) | payer OTHER ==
[~2018-09-27] VITALS: Ht 182.9 cm; Wt 63.0 kg
[~2018-09-27 14:25] MED LIST changes: +CARDURA2 MG PO; +CARDURA8 MG PO; +COZAAR100 MG PO; +FOLIC ACID1 MG PO; +HYDRALAZINE HCL25 MG PO; +NIFEDIPINE ER30 M1 PO
[2018-09-27 15:59] LABS: BASOPHILS # (AUTO) 0.1 (0.0-0.1); BASOPHILS % 0.8 % (0.0-1.0); EOSINOPHILS # (AUTO) 0.3 (0.0-0.4); EOSINOPHILS % 4.5 % (0.0-6.0); HEMATOCRIT 37.2 % (38.2-49.6); HEMOGLOBIN 11.9 g/dL (14.0-18.0); LYMPHOCYTES # (AUTO) 1.1 (1.0-3.2); LYMPHOCYTES % 16.8 % (18.0-39.1); MEAN CORPUSCULAR HEMOGLOBIN 30.5 pg (28-32); MEAN CORPUSCULAR VOLUME 95.4 fL (81-99); MONOCYTES # (AUTO) 0.6 (0.2-0.8); MONOCYTES % 8.7 % (4.4-11.3); NEUTROPHILS # (AUTO) 4.6 (2.1-6.9); NEUTROPHILS % 68.7 % (38.7-80.0); PLATELET COUNT 123 x10e3/uL (140-360)
[2018-09-27 16:16] LABS: ALBUMIN 3.2 g/dL (3.5-5.0); ALBUMIN/GLOBULIN RATIO 0.9 (0.8-2.0); ANION GAP 18.5 mmol/L (8-16); CALCIUM 8.8 mg/dL (8.4-10.2); CREATININE, SERUM 9.18 mg/dL (0.72-1.25); POTASSIUM 4.5 mmol/L (3.5-5.1)
--- NOTE | 2018-09-27 16:29 | Diagnostic Imaging Report ---
EXAMINATION: PA and lateral views of the chest. COMPARISON: 07/08/2018 CLINICAL HISTORY: Sepsis DISCUSSION: Moderate right pleural effusion with right lower and middle lobe airspace disease likely atelectasis. Left lung is clear with a trace pleural effusion. Stable cardiomediastinal contour. Pulmonary vascular congestion described on the comparison study has resolved. No acute osseous abnormality. Right internal jugular tunneled hemodialysis catheter is stable. IMPRESSION: Moderate right and trace left pleural effusions. Right lower and middle lobe opacities likely passive atelectasis. Pulmonary venous congestion described on the prior has resolved. Signed by: Dr. John Berrios M.D. on 09/27/2018 4:26 PM
[2018-09-27] MEDS ORDERED: VANCOMYCIN 1GM/NS 250 ML 250 ML IV ONE (18:45)
[2018-09-27] MEDS ORDERED: SODIUM CHLORIDE FLUSH 10 ML SYR INJ PRN (18:45)
[2018-09-27] MEDS ORDERED: ONDANSETRON HCL INJ 2MG/ML 2ML 2 MG/ML VIAL IV PRN (18:45)
[2018-09-27] MEDS ORDERED: GENTAMICIN 120MG/NS 100ML 100 ML IV ONE (18:45)
[2018-09-27 19:16] LABS: CREATINE KINASE MB 2.6 ng/mL (0-5.0)
[2018-09-27] MEDS ORDERED: MINOXIDIL10 MG PO (20:09)
[2018-09-27] MEDS ORDERED: CRESTOR5 MG PO (20:12)
[2018-09-27] MEDS ORDERED: DEXTROSE 50% SYRINGE 50 ML IV PRN (20:30)
--- NOTE | 2018-09-27 20:30 | NUR ---
PT ARRIVED ON THE UNIT AT 2029. PT IS A&OX3. RESPIRATION IS EVEN AND UNLABORED, NO DISTRESS NOTED. PT ORIENTED TO THE ROOM, BED IN LOWEST POSITION, LOCKED, AND CALL LIGHT WITHIN REACH. ADMISSION AND ASSESSMENT COMPLETE. WILL CONTINUE TO MONITOR.
[2018-09-27 20:44] LABS: BILIRUBIN,URINE NEGATIVE (NEGATIVE); CLARITY,URINE CLEAR (CLEAR); COLOR,URINE YELLOW (YELLOW); KETONES,URINE NEGATIVE (NEGATIVE); LEUKOCYTE ESTERASE ,URINE NEGATIVE (NEGATIVE); NITRITE,URINE NEGATIVE (NEGATIVE); PROTEIN,URINE DIPSTICK NEGATIVE (NEGATIVE); URINE UROBILINOGEN 0.2 mg/dL (0.2 - 1)
[2018-09-27 20:53] VITALS: BP 134/74
[2018-09-27] MEDS: INSULIN REGULAR, HUMAN 100 UNIT/1 ML 3ML VIAL SQ SCH (22:34)
[2018-09-27 23:49] VITALS: BP 134/74
[2018-09-27 23:53] VITALS: BP 134/74
[2018-09-28] VITALS (8 sets, daily range): BP systolic 124–197; BP diastolic 65–103
[2018-09-28 03:12] LABS: CREATINE KINASE MB 1.8 ng/mL (0-5.0)
[2018-09-28 06:37] LABS: BASOPHILS # (AUTO) 0.1 (0.0-0.1); BASOPHILS % 0.9 % (0.0-1.0); EOSINOPHILS # (AUTO) 0.5 (0.0-0.4); HEMATOCRIT 31.8 % (38.2-49.6); HEMOGLOBIN 10.8 g/dL (14.0-18.0); LYMPHOCYTES # (AUTO) 1.7 (1.0-3.2); LYMPHOCYTES % 24.6 % (18.0-39.1); MEAN CORPUSCULAR HEMOGLOBIN 31.6 pg (28-32); MONOCYTES # (AUTO) 0.8 (0.2-0.8); MONOCYTES % 11.4 % (4.4-11.3); NEUTROPHILS # (AUTO) 3.8 (2.1-6.9); NEUTROPHILS % 55.5 % (38.7-80.0); PLATELET COUNT 121 x10e3/uL (140-360); RED BLOOD COUNT 3.42 x10e6/uL (4.3-5.7); RED CELL DISTRIBUTION WIDTH 14.3 % (11.7-14.4)
--- NOTE | 2018-09-28 06:45 | Diagnostic Imaging Report ---
EXAMINATION: CHEST SINGLE (PORTABLE) COMPARISON: Chest x-ray 09/27/2018 INDICATION: Weakness ^WEAKNESS DISCUSSION: Frontal view of the chest obtained at 0558 hours. HEART AND MEDIASTINUM: Stable mild cardiomegaly LINES: Dual lumen central venous catheter remains at the cavoatrial junction LUNGS: Increasing right basilar airspace opacities. Left lung is clear. Pulmonary venous prominence has developed PLEURA: Stable right pleural effusion. Tiny left pleural effusion. No pneumothorax BONES AND SOFT TISSUES: No focal osseous lesion. The soft tissues are normal. IMPRESSION: Mild vascular congestion. Increasing right basilar airspace opacity suggestive of pneumonia or atelectasis. Stable pleural effusions, right larger than left. Signed by: Dr. Wes Cruz MD on 09/28/2018 6:42 AM
[2018-09-28 06:51] LABS: ANION GAP 19.3 mmol/L (8-16); CALCIUM 8.1 mg/dL (8.4-10.2); CREATININE, SERUM 10.42 mg/dL (0.72-1.25); POTASSIUM 4.3 mmol/L (3.5-5.1)
--- NOTE | 2018-09-28 07:17 | NUR ---
PATIENT IN BED RESTING WITH NO S/S OF DISTRESS. RIGHT UPPER CHEST DIALYSIS CATHETER INTACT, HEALING WOUND TO RIGHT DORSAL PEDIS. BED IN LOWER POSITION, CALL LIGHT AT REACH.
[2018-09-28] MEDS: INSULIN REGULAR, HUMAN 100 UNIT/1 ML 3ML VIAL SQ SCH ×4 (07:30→21:35)
--- NOTE | 2018-09-28 08:13 | Consultation ---
DATE OF CONSULTATION: 09/28/2018 HISTORY OF PRESENT ILLNESS: Mr. Kurtis Velázquez is well known to me, 57-year-old gentleman with difficult to control hypertension, diabetes, diabetic kidney disease, and end-stage renal disease, who was found to have gram-negative rods growing in blood cultures subsequently read out adhered to the emergency room, received a gram of ceftriaxone yesterday. The patient did not get dialysis yesterday. Stated that he felt weak and fell. He is currently awake, alert, and oriented x3. Following commands. Denies shortness of breath, nausea, vomiting, or abdominal pain. Also denies any chills. ALLERGIES: NO APPARENT DRUG ALLERGIES. CURRENT MEDICATIONS: The patient received one dose of gentamicin, one dose of vancomycin, and is on insulin protocol. SOCIAL HISTORY: Does not smoke or drink. FAMILY HISTORY: Significant for hypertension and diabetes. LABORATORY DATA: Current labs; white count 6.8, hemoglobin 10.8, potassium 4.3 with a creatinine 10.4. Blood cultures have been drawn. Urine culture has not been sent. Infectious Disease has been consulted. PHYSICAL EXAMINATION: GENERAL: Awake, alert, lying supine, and in no apparent distress. VITAL SIGNS: Blood pressure 130/67, pulse rate 85, and afebrile. HEAD AND NECK: Cornea clear. Oral mucosa moist. Neck veins flat. LUNGS: Relatively clear. No rales. HEART: S1, S2 audible. ABDOMEN: Otherwise soft and nontender. EXTREMITIES: Lower extremity, no edema. Right IJ tunneled dialysis catheter exit site appears satisfactory. IMPRESSION: Bacteremia, source unclear. Possible urinary tract infection, possible catheter related. Apparently, Dr. Monroy was not consulted yesterday. I am going to write for a consult. I have spoken to him on the phone. Continue with antibiotics, underlying end-stage renal disease, hypertension, mild fluid overload, arrange for dialysis. Dialysis nurse called. Please see orders. MD MICAH Graff/BRIT /[id number]
[2018-09-28 08:34] LABS: CREATINE KINASE MB 1.7 ng/mL (0-5.0)
--- NOTE | 2018-09-28 09:48 | NUR ---
DR ORTIZ IN TO SEE PATIENT. NEW ORDER RECEIVED TO CALL JOSE TO SCHEDULE DIALYSIS TODAY. RUBINSENIUS CALLED AND MESSAGE LEFT TO ANSWERING STAFF.
--- NOTE | 2018-09-28 11:13 | NUR ---
PATIENT AMBULATED TO THE RESTROOM AND BACK TO BED, NO COMPLAIN VOICED. CALL LIGHT AT REACH.
--- NOTE | 2018-09-28 13:39 | NUR ---
Nutrition Screen Note RD Recommendation for Physician: Continue diet as ordered Plan of Care: RD following, monitoring for tolerance and adequacy Nutrition reason for involvement: Nutrition Risk Trigger - MST Primary Diagnose(s):weakness, dialysis line needs to be changed PMH: CKD stage 5 on HD, T2DM, HTN Ht:72 in Wt:141lb BMI:19.1 kg/m2 IBW:178lb RD Assessment: (09/28/2018) Chart reviewed. Labs and meds reviewed. Initial encounter with patient. Diet Hx: pt has no known food allergies. 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 Pt denies any difficulty chewing or swallowing nor has any nausea, vomiting, or diarrhea. Pt can feed himself. Current Diet: Renal diet Malnutrition Evaluation () The patient does not meet criteria for a specified degree of malnutrition at this time. Will re-evaluate at follow-up as appropriate. Diet Education Needs Assessment: Diet education not indicated. Nutrition Care Level: Low Signed: Arnoldo Ayala RD, LD, CNSC
--- NOTE | 2018-09-28 15:52 | NUR ---
PATIENT NOTED WITH BLOOD SUGAR OF 44. NO S/S OF HYPOGLYCEMIA NOTED. PATIENT ALERT AND VERBALLY RESPONSIVE, DENIED PAIN OR DISCOMFORT. ORANGE JUICE AND CRACKERS OFFERED AND WELL TOLERATED. BLOOD SUGAR RECHECKED AFTER 30 MINUTES WITH THE READING OF 65; THEN BLOOD SUGAR RECHECKED AFTER 1 HOUR WITH THE READING OF 127. WILL CLOSELY MONITOR.
--- NOTE | 2018-09-28 16:17 | NUR ---
H&P cc: bacteremia HPI: 57yoM, PCP , developed GNR bacteremia, sent to hospital. Pt does get dialysis. PMH: HTN, ESRD on HD, HLD, DM2 PSHx: HD access catheter Allergies; see emr Fh/SH; single; no cigs; occ etoh meds; see MAR ROS: no f/CP/sob/skin rash/headache/diarrhea/N/V/dizziness v/s; revd PE: tired appearing anicteric ns1s2 mod bs soft nt nd no e/t right chest HD catheter- nontender at site; no erythema presently skin dry A&Ox3; jacobsen n. mood labs/meds; revd' A/P: 57yoM Enterococcal cloacae Bacteremia Enterococcal infection Right PNA B/L pleural effusions- small ESRD - HD per nephro HTN HLD Mod Anemia PLAN IV abx HD per nephro f/u labs resume home meds Wilner Jaime MD, PhD.
[2018-09-28] MEDS: SODIUM BICARBONATE 650 MG TAB PO SCH (17:00)
[2018-09-28] MEDS: SIMVASTATIN 20 MG TAB PO SCH (17:00)
[2018-09-28] MEDS: HYDRALAZINE HCL 25 MG TAB PO SCH ×2 (17:00→18:26)
[2018-09-28] MEDS: LOSARTAN POTASSIUM 100 MG TAB PO SCH (17:00)
[2018-09-28 17:05] LABS: CHOL/HDL RATIO 3.4 (3.9-4.7)
[2018-09-28] MEDS ORDERED: SODIUM CHLORIDE 0.9% 1000ML 1,000 ML ONE (17:06)
[2018-09-28] MEDS ORDERED: LEVOFLOXACIN 500MG/D5W 100ML 100 ML IV SCH (17:15)
[2018-09-28] MEDS ORDERED: CEFEPIME 1GM/NS 0.9% 50 ML 50 ML IV SCH (17:15)
--- NOTE | 2018-09-28 18:27 | NUR ---
BED SIDE HEMODIALYSIS STARTED, PATIENT NOTED WITH B/P OF 196/101. SCHEDULE HYDRALAZINE GIVEN WILL CONTINUE TO MONITOR.
--- NOTE | 2018-09-28 18:58 | NUR ---
PT IS BED RECEIVING DIALYSIS. NO RESPIRATORY DISTRESS NOTED. BED IN THE LOWEST POSITION, LOCKED, AND CALL LIGHT WITHIN REACH. WILL CONTINUE TO MONITOR.
[2018-09-28] MEDS: CLONIDINE HCL 0.1 MG TAB PO PRN (19:37)
[2018-09-28] MEDS ORDERED: HEPARIN SOD (PORCINE) 1000 UNIT/ML SDV IV PRN (19:45)
--- NOTE | 2018-09-28 19:52 | NUR ---
PER DR Amrit ORTIZ GIVE PT LABETALOL 20MG IV ONE TIME DOSE DUE TO PT BP 201/100 HR84 DURING DIALYSIS. WILL CONTINUE TO MONITOR.
[2018-09-28] MEDS ORDERED: LABETALOL HCL 5 MG/ML 20ML VIAL IV NR (20:00)
[2018-09-28] MEDS ORDERED: SODIUM CHLORIDE 0.9% 250ML 250 ML ONE (21:19)
[2018-09-28] MEDS: CEFEPIME 1GM/NS 0.9% 50 ML 50 ML IV SCH (21:33)
[2018-09-28] MEDS: METOPROLOL TARTRATE 25 MG TAB PO SCH (21:33)
[2018-09-28] MEDS: NIFEDIPINE CR 30 MG TAB PO SCH (21:34)
[2018-09-28] MEDS: LEVOFLOXACIN 500MG/D5W 100ML 100 ML IV SCH (22:12)
[2018-09-29] VITALS (8 sets, daily range): BP systolic 114–175; BP diastolic 57–77
--- NOTE | 2018-09-29 00:26 | Consultation ---
DATE OF CONSULTATION: 09/28/2018 REASON FOR CONSULTATION: Sepsis. HISTORY OF PRESENT ILLNESS: This patient who is a 57-year-old [place] male, who has history of end-stage renal disease, on hemodialysis. The patient apparently went to his dialysis, where he had been having fever and chills. Blood cultures obtained and is growing gram-negative rods, so patient was called in to come to the hospital. The patient received a dose of gentamicin at dialysis. I was asked to see him, started on IV antibiotic. The patient is telling me since he came here he is feeling better, no complaints. The patient has history of diabetes mellitus, end-stage renal disease on hemodialysis, neuropathy. PAST SURGICAL HISTORY: IV access for dialysis. ALLERGIES: NKA. SOCIAL HISTORY: There is no smoking, drug abuse, or alcohol abuse. FAMILY HISTORY: Noncontributory. REVIEW OF SYSTEMS: GENERAL: He is feeling better now. HEENT: There is no headache, visual changes, hearing changes. GI: He has no nausea, no vomiting, no diarrhea. : There is no urgency or frequency. SKIN: There is no other rash. JOINTS: There is no erythema or edema. NEURO: There is no seizure activity or local weakness. PSYCH: There is no depression. A 14-point system reviewed, all negative. LABORATORY DATA: White count 6.6, hemoglobin 11. His sodium 140, potassium 4.3, creatinine 10.42. Liver enzyme within normal limit. Alkaline phosphatase is 185. His LDH 226. His blood cultures here are still pending. PHYSICAL EXAMINATION: GENERAL: He is currently alert and oriented, does not seem to be in acute distress. VITAL SIGNS: Stable, currently afebrile. HEENT: Normocephalic, not icteric. NECK: Supple. No JVD. No lymphadenopathy. No thyromegaly. CHEST: Clear bilateral. HEART: S1, S2. No S3, S4, or murmur. ABDOMEN: Soft. Bowel sounds present. No tenderness. No hepatosplenomegaly. EXTREMITIES: No edema. SKIN: There is no rash. JOINTS: There is no erythema or edema. IMPRESSION: 1. Gram-negative sepsis, source is unclear. It could be a line infection from his dialysis. It could be urinary tract infection or other. The patient at present time denies any other complaints. We will put him on cefepime and Levaquin. Recheck blood cultures. We will get cultures from the dialysis unit. We will obtain urine culture and sensitivity. Further recommendations to followup. 2. End-stage renal disease. 3. Other medical problems as above. Discussed with Dr. Reynoso. Discussed with the patient. Discussed with the nursing team. We will follow with you. Thank you for asking us to see this patient. MD DARIO Hernandez/BRIT /[id number]
--- NOTE | 2018-09-29 07:10 | NUR ---
PATIENT IN BED RESTING WITH EYES CLOSED, NO RESPIRATORY DISTRESS OBSERVED. RIGHT CHEST DIALYSIS CATHETER WITH DRESSING DRY AND INTACT. BED IN LOWER POSITION, CALL LIGHT AT REACH.
[2018-09-29] MEDS: INSULIN REGULAR, HUMAN 100 UNIT/1 ML 3ML VIAL SQ SCH ×4 (07:30→20:31)
[2018-09-29] MEDS: SODIUM BICARBONATE 650 MG TAB PO SCH ×2 (09:00→17:00)
[2018-09-29] MEDS: FUROSEMIDE 40 MG TAB PO SCH (09:00)
[2018-09-29] MEDS: HYDRALAZINE HCL 25 MG TAB PO SCH ×2 (09:00→17:00)
[2018-09-29] MEDS: LOSARTAN POTASSIUM 100 MG TAB PO SCH ×2 (09:00→17:00)
[2018-09-29] MEDS: SIMVASTATIN 20 MG TAB PO SCH ×2 (09:00→17:00)
[2018-09-29] MEDS: METOPROLOL TARTRATE 25 MG TAB PO SCH ×2 (09:00→20:28)
--- NOTE | 2018-09-29 11:10 | NUR ---
IM- progress note O/N no events ROS: no f/CP/sob/skin rash/headache/diarrhea/N/V/dizziness v/s; revd PE: tired appearing anicteric ns1s2 mod bs soft nt nd no e/t right chest HD catheter- nontender at site; no erythema presently skin dry A&Ox3; jacobsen n. mood labs/meds; revd' A/P: 57yoM Enterococcal cloacae Bacteremia Enterococcal infection Right PNA B/L pleural effusions- small ESRD - HD per nephro HTN HLD Mod Anemia PLAN IV abx HD per nephro f/u labs resume home meds 6/2 cont abx; Hba1c/LDL 6.0/52 Controlled; d/c planning Wilner Jaime MD, PhD.
--- NOTE | 2018-09-29 16:05 | NUR ---
PATIENT OUT OF BED TO CHAIR TALKING TO FAMILY MEMBER VISITING. DENIED PAIN OR DISCOMFORT. CALL LIGHT AT REACH.
--- NOTE | 2018-09-29 19:09 | NUR ---
PT IS RESTING IN BED. NO RESPIRATORY DISTRESS NOTED. BED IN THE LOWEST POSITION, LOCKED, AND CALL LIGHT WITHIN REACH. WILL CONTINUE TO MONITOR.
[2018-09-29] MEDS: CEFEPIME 1GM/NS 0.9% 50 ML 50 ML IV SCH (20:28)
[2018-09-29] MEDS: NIFEDIPINE CR 30 MG TAB PO SCH (20:29)
[2018-09-30] VITALS (8 sets, daily range): BP systolic 124–177; BP diastolic 61–80
--- NOTE | 2018-09-30 06:57 | NUR ---
IM- progress note O/N no events ROS: no f/CP/sob/skin rash/headache/diarrhea/N/V/dizziness v/s; revd PE: tired appearing anicteric ns1s2 mod bs soft nt nd no e/t right chest HD catheter- nontender at site; no erythema presently skin dry A&Ox3; jacobsen n. mood labs/meds; revd' A/P: 57yoM Enterococcal cloacae Bacteremia Enterococcal infection Right PNA B/L pleural effusions- small ESRD - HD per nephro HTN HLD Mod Anemia PLAN IV abx HD per nephro f/u labs resume home meds / cont abx; Hba1c/LDL 6.0/52 Controlled; d/c planning 09/30 BP improving? Wilner Jaime MD, PhD.
[2018-09-30] MEDS: INSULIN REGULAR, HUMAN 100 UNIT/1 ML 3ML VIAL SQ SCH ×4 (07:30→20:39)
[2018-09-30] MEDS: LOSARTAN POTASSIUM 100 MG TAB PO SCH ×2 (08:45→17:46)
[2018-09-30] MEDS: FUROSEMIDE 40 MG TAB PO SCH (08:45)
[2018-09-30] MEDS: METOPROLOL TARTRATE 25 MG TAB PO SCH ×2 (08:46→20:38)
[2018-09-30] MEDS: SODIUM BICARBONATE 650 MG TAB PO SCH ×2 (08:46→17:46)
[2018-09-30] MEDS: SIMVASTATIN 20 MG TAB PO SCH ×2 (08:46→17:46)
[2018-09-30] MEDS: HYDRALAZINE HCL 25 MG TAB PO SCH ×2 (09:00→17:57)
--- NOTE | 2018-09-30 19:00 | NUR ---
patient received awake, alert, lying quietly in bed. no c/o pain noted at this time. pm assessment complete. family noted at the bedside. patient/family instructed to call for assistance when needed.
--- NOTE | 2018-09-30 19:23 | NUR ---
Bedside change of shift report given to CHRISTINA Stiles. Pt is lying in bed in no acute distress noted. Hemodialysis completed per CHRISTINA Carroll he removed 3L of fluid today. HD site clean, dry, and intact. Pt is resting comfortably in bed, denies pain at this time.
[2018-09-30] MEDS: LEVOFLOXACIN 500MG/D5W 100ML 100 ML IV SCH (20:37)
[2018-09-30] MEDS: CEFEPIME 1GM/NS 0.9% 50 ML 50 ML IV SCH (20:38)
[2018-09-30] MEDS: NIFEDIPINE CR 30 MG TAB PO SCH (20:38)
[2018-10-01] VITALS (7 sets, daily range): BP systolic 138–180; BP diastolic 66–85
[2018-10-01] MEDS: LABETALOL HCL 5 MG/ML 20ML VIAL IV PRN (01:09)
--- NOTE | 2018-10-01 01:09 | NUR ---
patient medicated with labetalol 5mg ivp for bp 180/85 at this time.
[2018-10-01] MEDS: INSULIN REGULAR, HUMAN 100 UNIT/1 ML 3ML VIAL SQ SCH ×4 (07:30→20:56)
--- NOTE | 2018-10-01 07:30 | NUR ---
Received pt. AAOx3, no s/s of distress, on room air, IV wrist 18 gauge that is clean and intact. Side rails up x2, bed in lowest position, and call lundberg within reach.
[2018-10-01] MEDS ORDERED: HEPARIN SOD (PORCINE) 5,000 UNIT/ML VIAL ONE ×2 (08:06→08:11)
[2018-10-01] MEDS ORDERED: SODIUM CHLORIDE 0.9% 0 ML ONE (08:06)
--- NOTE | 2018-10-01 08:08 | NUR ---
IM- progress note O/N no events ROS: no f/CP/sob/skin rash/headache/diarrhea/N/V/dizziness v/s; revd PE: tired appearing anicteric ns1s2 mod bs soft nt nd no e/t right chest HD catheter- nontender at site; no erythema presently skin dry A&Ox3; jacobsen n. mood labs/meds; revd' A/P: 57yoM Enterococcal cloacae Bacteremia Enterococcal infection Right PNA B/L pleural effusions- small ESRD - HD per nephro HTN HLD Mod Anemia PLAN IV abx HD per nephro f/u labs resume home meds 09/29 cont abx; Hba1c/LDL 6.0/52 Controlled; d/c planning 09/30 BP improving? 10/01 f/u labs; adjust BP meds Wilner Jaime MD, PhD.
[2018-10-01 08:17] LABS: ALBUMIN/GLOBULIN RATIO 0.8 (0.8-2.0); ANION GAP 17.6 mmol/L (8-16); CALCIUM 8.1 mg/dL (8.4-10.2); CREATININE, SERUM 6.95 mg/dL (0.72-1.25)
[2018-10-01 08:19] LABS: POTASSIUM 5.6 mmol/L (3.5-5.1)
--- NOTE | 2018-10-01 08:30 | NUR ---
Anesthesiologist, Dr. Boyd, called for concern of K+level of 5.6. Dr. Boyd gave order to re-check K+ level stat. Dr. Boyd asked for Dr. Rivas's number to notify him.
--- NOTE | 2018-10-01 08:48 | NUR ---
Blood was drawn to re-check K+ level.
[2018-10-01] MEDS: METOPROLOL TARTRATE 50 MG TAB PO SCH ×2 (09:00→21:00)
[2018-10-01] MEDS: HYDRALAZINE HCL 25 MG TAB PO SCH ×2 (09:00→17:10)
[2018-10-01] MEDS: SIMVASTATIN 20 MG TAB PO SCH ×2 (09:00→17:10)
[2018-10-01] MEDS: SODIUM BICARBONATE 650 MG TAB PO SCH ×2 (09:00→17:10)
[2018-10-01] MEDS: LOSARTAN POTASSIUM 100 MG TAB PO SCH ×2 (09:00→17:10)
[2018-10-01] MEDS ORDERED: METOPROLOL TARTRATE 25 MG TAB PO SCH (09:00)
[2018-10-01] MEDS: FUROSEMIDE 40 MG TAB PO SCH (09:00)
--- NOTE | 2018-10-01 09:00 | NUR ---
Patient was taken down for fistula procedure. Consent has been signed by patient.
[2018-10-01] MEDS ORDERED: SODIUM CHLORIDE 0.9% 500ML 500 ML ONE (09:28)
[2018-10-01] MEDS ORDERED: SODIUM CHLORIDE 0.9% 100 ML ONE (10:01)
[2018-10-01] MEDS ORDERED: HYDROCODONE/APAP 5MG-325MG TAB PO PRN (10:45)
--- NOTE | 2018-10-01 11:31 | NUR ---
Vital signs are 143/78, 75 HR, 15 respirations, and o2 95 via room air.
--- NOTE | 2018-10-01 11:31 | NUR ---
Patient returned from OR from getting left fistula. Received report from Hector. [place] the thrill with finger and heard the bruit via auscultation over the left fistula. Dressing over fistula and clean and intact. Limb alert bracelet to left wrist. No s/s of distress and patient on room air. Left arm elevated on pillow. Bed in lowest position, side rails up x2, and call lundberg within reach. Notified patient to call for any assistance.
--- NOTE | 2018-10-01 13:20 | NUR ---
Patient is resting with eyes opened with no s/s of distress. Left arm is elevated with pillow. Side rails up x2, call lundberg within reach, and bed in lowest position.
[2018-10-01] MEDS ORDERED: SOD POLYSTYRENE SULFONATE SUSP 15 GM/60 ML BTL PO ONE (13:30)
--- NOTE | 2018-10-01 17:44 | Operative Report ---
DATE OF PROCEDURE: 10/01/2018 SURGEON: John Pires MD PREOPERATIVE DIAGNOSIS: End-stage renal disease. POSTOPERATIVE DIAGNOSIS: End-stage renal disease. PROCEDURE: Creation of left forearm primary arteriovenous fistula. LOCUM TENENS: None. ANESTHESIA: General. INDICATIONS AND FINDINGS: The patient is a 57-year-old male with end-stage renal disease, needs access for long-term hemodialysis. At surgery, there was adequate vein in the forearm, which was about 3 mm in diameter and good pulse in the radial artery. At the end of the procedure, there was palpable thrill over the fistula, palpable pulse in the radial artery distal to the fistula. TECHNIQUE: After adequate general anesthesia, the patient in supine position, the left arm was prepped and draped in sterile fashion with ChloraPrep solution. Transverse incision was made proximal and radial head over the area of cephalic vein and radial artery. Cephalic vein was dissected free proximally and distally. Side branches ligated with hemoclips. There was adequate caliber for fistula. More medially, incision was carried deep and the radial artery dissected free and controlled with vessel loop. The artery was adequate for fistula with a palpable pulse. The cephalic vein was divided distally, possible distal portion ligated. Hemoclips #3 Harman catheter was passed through the vein and passed easily without resistance. The vein was fashioned appropriately for fistula and the patient was given 5000 units of intravenous heparin. The radial artery was clamped proximally and distally. Arteriotomy was made. Anastomosis was made between the end of the vein and side of the artery. The running suture of 7-0 Prolene. Once flow was allowed through the fistula, there is a palpable pulse in the radial artery distal to the fistula, palpable thrill over the fistula. Hemostasis was seen to be adequate. The wound was then closed with 3-0 Vicryl subcutaneous tissue and wood for the skin. Sterile dressing was applied. The patient tolerated the procedure well. ESTIMATED BLOOD LOSS: 10 mL. There were no complications. All counts were correct. The patient was taken to the recovery room in satisfactory condition. There is a palpable thrill over the fistula. MD MEENA MazariegosG/HAIL /[id number]
[2018-10-01] MEDS ORDERED: ONDANSETRON HCL INJ 2MG/ML 2ML 2 MG/ML VIAL ONE (17:53)
[2018-10-01] MEDS ORDERED: PROPOFOL IV EMULSION 10 MG/ML 20 ML VIAL ONE (17:53)
[2018-10-01] MEDS ORDERED: GLYCOPYRROLATE INJ 1MG/ 5 ML SYR ONE (17:53)
[2018-10-01] MEDS ORDERED: SEVOFLURANE INHAL SOLN 250 ML PEN BTL ONE (17:53)
[2018-10-01] MEDS ORDERED: LIDOCAINE HCL 2% LOCAL INJ 5 ML SDV VIAL INJ ONE (17:53)
[2018-10-01] MEDS ORDERED: DEXAMETHASONE SOD PHOS INJ 4 MG/ML VIAL ONE (17:53)
[2018-10-01] MEDS ORDERED: PHENYLEPHRINE HCL 1% 10 MG/ML VIAL ONE (17:53)
--- NOTE | 2018-10-01 18:50 | NUR ---
Patient is resting with eyes opened with no s/s of distress. Left arm placed on top of pillow. Side rails up x2, call lundberg within reach, and bed in lowest position.
--- NOTE | 2018-10-01 19:00 | NUR ---
patient received awake, alert, lying quietly in bed. no c/o pain noted. dressing to left arm av fistula site c,d,i. pm assessment complete. patient instructed to call for assistance when needed.
[2018-10-01] MEDS ORDERED: FENTANYL CITRATE/PF 100MCG/2 ML INJ ONE (19:49)
--- NOTE | 2018-10-01 19:50 | Progress Note ---
DATE: 10/01/2018 SUBJECTIVE: Kurtis Borjas is doing well. There are no complaints. REVIEW OF SYSTEMS: HEENT: Negative. PULMONARY: Negative. CARDIAC: Negative. : Negative. GI: Negative. SKIN: There is no rash. All symptoms within normal limits. PHYSICAL EXAMINATION: GENERAL: He is currently alert, oriented, does not seem to be in acute distress. VITAL SIGNS: Stable, currently afebrile. HEENT: Normocephalic, not icteric. NECK: Supple. No JVD. No carotid. No thyromegaly. CHEST: Clear bilateral. HEART: S1, S2. No S3, S4, or murmur. ABDOMEN: Soft. Bowel sounds present. No tenderness. No hepatosplenomegaly. EXTREMITIES: No edema. SKIN: There is no rash. The case was discussed with Dr. Rivas, his surgery aide. IMPRESSION: This patient who had gram-negative sepsis present on admission. The patient cultures were reviewed from the [facility] facility and from his dialysis unit, the patient fortunately grew a enterobacter cloacae, which was sensitive to Cipro. The patient is doing well, overall his bacteremia has resolved. There is no complaint. The patient was treated with IV antibiotic here and did well. The patient had an echocardiogram, which is still pending. AV fistula was placed today. The patient can be discharged home. Cipro 250 mg p.o. b.i.d. for two more weeks. The patient here has been on cefepime and levofloxacin. Discussed with Dr. Rivas, discharge planning for tomorrow. MD DARIO Hernandez/BRIT /[id number]
[2018-10-01] MEDS: NIFEDIPINE CR 30 MG TAB PO SCH (21:00)
[2018-10-01] MEDS: CEFEPIME 1GM/NS 0.9% 50 ML 50 ML IV SCH (21:00)
[2018-10-02] VITALS (8 sets, daily range): BP systolic 125–194; BP diastolic 65–93
[2018-10-02] MEDS: CLONIDINE HCL 0.1 MG TAB PO PRN (01:30)
--- NOTE | 2018-10-02 01:30 | NUR ---
patient medicated with clonidine 0.1mg po for bp 175/84 at this time.
[2018-10-02] MEDS: LABETALOL HCL 5 MG/ML 20ML VIAL IV PRN (04:30)
--- NOTE | 2018-10-02 04:30 | NUR ---
bp 194/93 patient medicated with labetalol 5mg ivp at this time.
--- NOTE | 2018-10-02 06:52 | NUR ---
RECEIVED PATIENT RESTING IN BED. NO ACUTE DISTRESS NOTED, DENIES PAIN OR DISCOMFORT AT THIS TIME. CALL LIGHT WITHIN REACH. BED IN THE LOWEST POSITION.
[2018-10-02] MEDS: INSULIN REGULAR, HUMAN 100 UNIT/1 ML 3ML VIAL SQ SCH ×4 (08:30→20:24)
[2018-10-02] MEDS: METOPROLOL TARTRATE 50 MG TAB PO SCH ×2 (08:36→20:58)
[2018-10-02] MEDS: SIMVASTATIN 20 MG TAB PO SCH ×2 (08:36→16:31)
[2018-10-02] MEDS: FUROSEMIDE 40 MG TAB PO SCH (08:36)
[2018-10-02] MEDS: LOSARTAN POTASSIUM 100 MG TAB PO SCH ×2 (08:36→16:31)
[2018-10-02] MEDS: HYDRALAZINE HCL 25 MG TAB PO SCH ×2 (08:36→16:31)
[2018-10-02] MEDS: SODIUM BICARBONATE 650 MG TAB PO SCH ×2 (08:36→16:31)
[2018-10-02 08:38] LABS: BASOPHILS # (AUTO) 0.1 (0.0-0.1); BASOPHILS % 0.6 % (0.0-1.0); EOSINOPHILS # (AUTO) 0.3 (0.0-0.4); EOSINOPHILS % 2.9 % (0.0-6.0); HEMATOCRIT 35.1 % (38.2-49.6); HEMOGLOBIN 11.5 g/dL (14.0-18.0); LYMPHOCYTES # (AUTO) 1.8 (1.0-3.2); LYMPHOCYTES % 19.4 % (18.0-39.1); MEAN CORPUSCULAR HEMOGLOBIN 30.7 pg (28-32); MEAN CORPUSCULAR HGB CONC 32.8 g/dL (31-35); MEAN CORPUSCULAR VOLUME 93.9 fL (81-99); MONOCYTES # (AUTO) 0.8 (0.2-0.8); MONOCYTES % 8.9 % (4.4-11.3); NEUTROPHILS # (AUTO) 6.1 (2.1-6.9); NEUTROPHILS % 67.6 % (38.7-80.0); PLATELET COUNT 159 x10e3/uL (140-360); RED BLOOD COUNT 3.74 x10e6/uL (4.3-5.7); RED CELL DISTRIBUTION WIDTH 14.2 % (11.7-14.4)
[2018-10-02 09:01] LABS: ANION GAP 18.3 mmol/L (8-16); CALCIUM 7.9 mg/dL (8.4-10.2); CREATININE, SERUM 9.22 mg/dL (0.72-1.25); POTASSIUM 4.3 mmol/L (3.5-5.1)
[2018-10-02] MEDS ORDERED: SODIUM CHLORIDE 0.9% 1000ML 1,000 ML ONE (11:52)
--- NOTE | 2018-10-02 13:27 | NUR ---
DIALYSIS COMPLETED, PER DIALYSIS NURSE 2.5L OUT.
[2018-10-02] MEDS ORDERED: ONDANSETRON HCL 4 MG ORAL DISINTEGRATING TAB PO PRN (15:30)
--- NOTE | 2018-10-02 18:59 | NUR ---
REPORT GIVEN TO ONCOMING NURSE, WALKING ROUNDS DONE. PATIENT IS IN STABLE CONDITION, NO ACUTE DISTRESS NOTED. DENIES PAIN OR DISCOMFORT. CALL LIGHT WITHIN REACH. BED IN THE LOWEST POSITION.
--- NOTE | 2018-10-02 19:00 | NUR ---
patient received awake, alert, lying quietly in bed. no c/o pain noted. pm assessment complete. patient instructed to call for assistance when needed.
[2018-10-02] MEDS: LEVOFLOXACIN 500MG/D5W 100ML 100 ML IV SCH (20:57)
[2018-10-02] MEDS: NIFEDIPINE CR 30 MG TAB PO SCH (20:58)
[2018-10-02] MEDS: CEFEPIME 1GM/NS 0.9% 50 ML 50 ML IV SCH (20:58)
--- NOTE | 2018-10-02 22:00 | NUR ---
Dr. Jaime called with order to discharge patient tonight if patient agrees and if not he may discharge in am. patient refuses to discharge tonight. patient states, " tomorrow will be better. " Dr. Jaime and Jenny Waters supervisor pumping station made aware of this at this time.
--- NOTE | 2018-10-02 22:03 | NUR ---
IM- progress note O/N no events ROS: no f/CP/sob/skin rash/headache/diarrhea/N/V/dizziness v/s; revd PE: tired appearing anicteric ns1s2 mod bs soft nt nd no e/t right chest HD catheter- nontender at site; no erythema presently skin dry A&Ox3; jacobsen n. mood labs/meds; revd' A/P: 57yoM Enterococcal cloacae Bacteremia Enterococcal infection Right PNA B/L pleural effusions- small ESRD - HD per nephro HTN HLD Mod Anemia PLAN IV abx HD per nephro f/u labs resume home meds 09/29 cont abx; Hba1c/LDL 6.0/52 Controlled; d/c planning 09/30 BP improving? 10/01 f/u labs; adjust BP meds 10/02 check labs; control BP; s/p fistula placement; ADDENDUM: Echo Mild MR; LVEF normal; home on cipro 250 PO BID for 14 days; Wilner Jaime MD, PhD.
[2018-10-02] MEDS ORDERED: CIPRO500 MG PO (22:06)
[2018-10-03] VITALS: BP 193/88
[2018-10-03] MEDS: LABETALOL HCL 5 MG/ML 20ML VIAL IV PRN (00:30)
--- NOTE | 2018-10-03 00:30 | NUR ---
PATIENT MEDICATED WITH LABETALOL 5MG IVP FOR BP 193/88 AT THIS TIME.
[2018-10-03 04:00] VITALS: BP 158/75
[2018-10-03] MEDS: INSULIN REGULAR, HUMAN 100 UNIT/1 ML 3ML VIAL SQ SCH (07:30)
[2018-10-03 07:48] VITALS: BP 138/65
[2018-10-03 07:53] VITALS: BP 138/65
[2018-10-03] MEDS: METOPROLOL TARTRATE 50 MG TAB PO SCH (08:44)
[2018-10-03] MEDS: HYDRALAZINE HCL 25 MG TAB PO SCH (08:44)
[2018-10-03] MEDS: SIMVASTATIN 20 MG TAB PO SCH (08:44)
[2018-10-03] MEDS: LOSARTAN POTASSIUM 100 MG TAB PO SCH (08:44)
[2018-10-03] MEDS: FUROSEMIDE 40 MG TAB PO SCH (08:44)
[2018-10-03] MEDS: SODIUM BICARBONATE 650 MG TAB PO SCH (08:44)
--- NOTE | 2018-10-03 09:49 | NUR ---
RECEIVED DC ORDER FROM MD. PATIENT IS IN STABLE CONDITION. IV LINE TO RIGHT FA DCD WITH TIP INTACT, PRESSURE APPLIED TO SITE, NO BLEEDING NOTED. PATIENT DENIES PAIN OR DISCOMFORT. DISCHARGE TEACHING PROVIDED TO PATIENT, HE VERBALIZED UNDERSTANDING. DISCHARGE FOLDER WHICH INCLUDES DISCHARGE PAPERWORK/PRESCRIPTIONS AND PERSONAL ITEMS ON HAND. PATIENT ACCOMPANIED TO TAXI VIA WHEELCHAIR BY STAFF.
--- NOTE | 2018-10-03 11:05 | NUR ---
D/C summary: Enterococcal cloacae Bacteremia Enterococcal infection Right PNA B/L pleural effusions- small ESRD - HD per nephro HTN HLD Mod Anemia PLAN IV abx HD per nephro f/u labs resume home meds 09/29 cont abx; Hba1c/LDL 6.0/52 Controlled; d/c planning 09/30 BP improving? 10/01 f/u labs; adjust BP meds 10/02 check labs; control BP; s/p fistula placement; ADDENDUM: Echo Mild MR; LVEF normal; home on cipro 250 PO BID for 14 days; d/c home f/u pcp 1 week and nephrology and ID as directed stable d/c>35mins; Wilner Jaime MD, PhD.
--- NOTE | 2018-10-18 09:57 | Consultation ---
DATE OF CONSULTATION: 09/30/2018 HISTORY OF PRESENT ILLNESS: The patient is a 57-year-old male, admitted to the hospital, found to have end-stage renal disease. He has been started on hemodialysis, but will need long-term access for hemodialysis. Request is made for arteriovenous fistula. PAST MEDICAL HISTORY: Significant for end-stage renal disease, diabetes, not had previous surgery. FAMILY HISTORY: Noncontributory. SOCIAL HISTORY: The patient does not smoke cigarettes or drink alcohol. REVIEW OF SYSTEMS: As stated above, otherwise was negative. PHYSICAL EXAMINATION: GENERAL: The patient is awake and alert, in no distress. VITAL SIGNS: Normal. HEENT: Sclera is nonicteric. NECK: Supple with no masses. LUNGS: Equal breath sounds are clear bilaterally. CARDIAC: Regular rate and rhythm. ABDOMEN: Soft without tenderness. EXTREMITIES: There is an adequate cephalic vein in the left arm for fistula and radial pulses palpable. NEUROLOGIC: Grossly intact. ASSESSMENT: A 57-year-old male with end-stage renal disease, needs access for long-term hemodialysis and left arm arteriovenous fistula. Proposed surgery was explained to the patient including risks, benefits, and alternatives. He understands. He has had the opportunity to ask questions. Thank you for asking me to see Mr. Kurtis Borjas. MD LONG Mazariegos/BRIT /[id number]
== END 2018-10-03 09:49 | disposition home or self-care (01) | DRG 853 ==
LOC: ER 14:25 → ERHOLD 18:35 → MED/SURG3 20:41 → OBSVTOIN 09-28 06:57
PROVIDERS: ADMIT Internal Medicine; ATTEND Internal Medicine
PROC: 05BF0ZZ Excision of Left Cephalic Vein, Open Approach (ICD-10-PCS; 2018-10-01)
PROC: 031C09F Bypass Left Radial Artery to Lower Arm Vein with Autologous Venous Tissue, Open Approach (ICD-10-PCS; principal; 2018-10-01 09:39)
DX: A41.50 Gram-negative sepsis, unspecified (principal); N18.6 End stage renal disease; J18.9 Pneumonia, unspecified organism; I12.0 Hypertensive chronic kidney disease with stage 5 chronic kidney disease or end stage renal disease; E11.22 Type 2 diabetes mellitus with diabetic chronic kidney disease; Z99.2 Dependence on renal dialysis; Z79.4 Long term (current) use of insulin; E78.5 Hyperlipidemia, unspecified; D64.9 Anemia, unspecified
CPT/HCPCS: 36415; 71045; 71046; 80048; 80053; 80061; 81001; 82550; 82553; 82948; 83036; 84132; 84484; 85025; 86704; 86706; 87040; 87086; 87340; 90962; 93005; 93306; 99284; G0378; J0692; J1100; J1644; J1817; J1956; J2001; J2370; J2405; J3010; J7030; J7040; J7050

== ENCOUNTER 2019-03-24 15:49 | Emergency (ER) | payer MEDICARE, OTHER ==
[~2019-03-24] VITALS: Ht 203.2 cm; Wt 63.0 kg
[~2019-03-24 15:49] MED LIST changes: +CIPRO500 MG PO; +CRESTOR5 MG PO; +MINOXIDIL10 MG PO
--- OUTSIDE RECORDS SUMMARY | 2019-03-24 15:52 | XMS REPORT | Encounter Summary ---
Author Organization Unknown Address [address] [place] [address] Phone [phone] Care Team Providers Care Alternative Dispute Resolution Mediator Name Role Phone Dr. Kiran Hernandez 3 [phone] Harsh Christianson MD 111 [phone] Reason for Visit Hypertensive disorder; Bilateral foot pain Instructions 1. Fatigue 2. Hypertensive disorder losartan 100 mg tablet minoxidil 10 mg tablet 3. Type II diabetes mellitus uncontrolled diabetes tipo 2: instrucciones de cuidado - [type 2 diabetes: care instructions] rosuvastatin 5 mg tablet 4. Diabetic peripheral neuropathy gabapentin 100 mg capsule 5. Tinea pedis clotrimazole-betamethasone 1 %-0.05 % topical cream 6. End-stage renal disease calcium acetate 667 mg capsule Discussion Note: None recorded. Plan of Care Reminders Provider Appointments Est Patient 02/20/2019 10:00AM Kiran Garduno MD Lab None recorded. Referral None recorded. Procedures None recorded. Surgeries None recorded. Imaging None recorded. Medications Name Start Date Danielle Bates U-100 Insulin 100 unit/mL (3 mL) subcutaneous Inject 2 units every day by subcutaneous route as directed for 30 days. calcium acetate 667 mg capsule Take one capsule by mouth three times a day clotrimazole-betamethasone 1 %-0.05 % topical cream APPLY TO THE AFFECTED AND SURROUNDING AREAS OF SKIN BY TOPICAL ROUTE 2 TIMES PER DAY IN THE MORNING AND EVENING FOR 2 WEEKS folic acid 1 mg tablet Take 1 tablet every day by oral route for 90 days. gabapentin 100 mg capsule Take 1 capsule every day by oral route at bedtime for 30 days. losartan 100 mg tablet Take 0.5 tablets every day by oral route for 90 days. minoxidil 10 mg tablet Take 0.5 tablets every day by oral route as directed for 90 days. rosuvastatin 5 mg tablet Take 0.5 tablets every day by oral route as directed for 90 days. Medications Administered None recorded. Vitals Height Weight BMI Blood Pressure 5 ft 8.3 in 144.6 lbs 21.8 kg/m2 130/50 mm[Hg] Lab Results Date Name Specimen Result Interpretation Description Value Range Status Address 10/24/2018 CBC W/ Auto Diff Wbc 4.78 x10*3/L 4.23-9.07 x10*3/L Final [facility] Laboratory: [address] [place] Low Rbc 3.05 10*12/L 4.63-6.08 10*12/L Final [facility] Laboratory: [address] [place] Low Hemoglobin 9.40 g/dL 13.70-17.50 g/dL Final [facility] Laboratory: [address] [place] Low Hematocrit 29.8 % 40.1-51.0 % Final [facility] Laboratory: [address] [place] Mcv 97.7 fL 80.0-100.0 fL Final [facility] Laboratory: [address] [place] Mch 30.8 pg 25.7-32.2 pg Final [facility] Laboratory: [address] [facility] Mchc 31.5 g/dL 32.3-36.5 g/dL Final [facility] Laboratory: [address] [place] High RDW-SD 50.1 fL 35.1-43.9 fL Final [facility] Laboratory: [address] [place] Low Platelet Count 126.0 k/uL 163.0-337.0 k/uL Final [facility] Laboratory: [address] [facility] Mpv 13.4 fL 7.5-11.5 fL Final [facility] Laboratory: [address] [place] Neut% 58.9 % 34.0-67.9 % Final [facility] Laboratory: [address] [place] Low Lymph% 21.3 % 21.8-53.1 % Final [facility] [address] [facility]% 11.7 % 5.3-12.2 % Final [facility] [address] [facility] Eos% 7.5 % 0.8-7.0 % Final [facility] Laboratory: [address] Baso% 0.6 % 0.2-1.2 % Final [facility]: [address] Neut# 2.8 x10*3/L 1.8-5.4 x10*3/L Final [facility] Laboratory: [address] [place] Low Lymph# 1.0 x10*3/L 1.3-3.6 x10*3/L Final [facility] Laboratory: [address] [place] Mon# 0.6 x10*3/L 0.3-0.8 x10*3/L Final [facility] Laboratory: [address] Eos# 0.36 x10*3/L 0.04-0.54 x10*3/L Final [facility]: [address] [place] Baso# 0.03 x10*3/L 0.01-0.08 x10*3/L Final [facility]: [address] [place] 10/24/2018 TSH, Serum or Plasma Tsh 2.759 uIU/mL 0.350-4.940 uIU/mL Final [facility] Laboratory: [address] [place] Allergies Code Code System Name Reaction Severity Status Onset NKDA Problems Name Status Onset Date Source Type II Diabetes Mellitus Uncontrolled Active 06/17/2018 Hypertensive Disorder Active 06/17/2018 Congestive Heart Failure Active 06/17/2018 History of Alcohol Abuse Active 06/17/2018 Chronic Kidney Disease Active 07/31/2018 Dependence on Hemodialysis Active 07/31/2018 Pulmonary Edema Active End-stage Renal Disease Active Procedures Date Name Performed by 04/30/2018 Fistula Cannulation Set, Ea Information not available Amputation of Toe Information not available Vaccine List Vaccine Type pneumococcal polysaccharide PPV23 06/28/2018 Social History Tobacco Smoking Status Former Smoker Past Encounters 11/21/2018 Fatigue; Hypertensive Disorder; Type II Diabetes Mellitus Uncontrolled; Diabetic Peripheral Neuropathy; Tinea Pedis; End-stage Renal Disease Kiran Garduno MD: [address] [place] [address], Ph. 11/07/2018 Fatigue; Chronic Hypotension; Type II Diabetes Mellitus Uncontrolled; End-stage Renal Disease Kiran Garduno MD: [address] [place] [address], Ph. 10/24/2018 Fatigue; Hypertensive Disorder; Hyperlipidemia; Thrombocytopenic Disorder; Dependence on Hemodialysis; Decreased Thyroid Stimulating Hormone Level; End- stage Renal Disease Kiran Garduno MD: [address] [place] [address], Ph. History of Present Illness Note:F/u on fatigue/f/u on htn and dm. Feeling better. Generalized fatigue has improved progressively. However, he is complaining of weakness in the legs and sharp pains in the feet.<div>BPs at home 163/73, 179/70, 171/78, 163/73, 157/65, 168/63, 178/86.
<div>Glucose readings at home 60-178 fasting. 141-189, 2 hrs postprandial.</div><div><div></div></div></div> Review of Systems Comprehensive General Adult ROS Reported By: Patient Eyes: Eyes: no vision change Cardiovascular: Cardiovascular: no chest pain, no arm pain on exertion, no shortness of breath when walking, no shortness of breath when lying down, no palpitations, no lightheadedness Respiratory: Respiratory: no cough, no wheezing Gastrointestinal: Gastrointestinal: no abdominal pain, no nausea, no vomiting, no constipation, no diarrhea Musculoskeletal: Musculoskeletal: no swelling in the extremities Neurologic: Neurologic: no loss of consciousness, no headaches Physical Exam General Adult Exam (male) Reported By: Patient Constitutional: General Appearance: ; Generalized pallor. Level of Distress: NAD. Ambulation: ambulating normally Psychiatric: Insight: good judgement. Mental Status: active and alert, normal mood, normal affect. Orientation: to time, to place, to person. Memory: recent memory normal, remote memory normal Eyes: Lids and Conjunctivae: non-injected, no discharge Neck: Neck: supple, trachea midline Lungs: Respiratory effort: no dyspnea. Auscultation: breath sounds normal Cardiovascular: Heart Auscultation: RRR, normal S1, normal S2, no murmurs. Neck vessels: no carotid bruits Musculoskeletal:: Motor Strength and Tone: normal, normal tone Neurologic: Gait and Station: normal gait Skin: Inspection and palpation: ; HD catheter in R subclavian vein.AV fistula in L forearmErythematous, scaly/flaking lesions in the feet
--- OUTSIDE RECORDS SUMMARY | 2019-03-24 15:52 | XMS REPORT | Encounter Summary ---
Author Organization Unknown Address [address] [place] [address] Phone [phone] Care Team Providers Care Magnetic Tape Composer Operator Name Role Phone Dr. Kiran Hernandez 3 [phone] Reason for Visit diabetic foot exam; URI; lab follow-up Instructions 1. Type II diabetes mellitus uncontrolled diabetic ophthalmology referral - [facility] PLEASE CALL PATIENT AND SCHEDULE HER AN APPOINTMENT. PLEASE FAX NOTES TO [phone]. diabetes tipo 2: instrucciones de cuidado - [type 2 diabetes: care instructions] Basaglar KwikPen U-100 Insulin 100 unit/mL (3 mL) subcutaneous 2. Hyperlipidemia colesterol alto: instrucciones de cuidado - [high cholesterol: care instructions] rosuvastatin 5 mg tablet 3. Body mass index less than 20 4. Screening for disorder hepatitis C virus RNA, quant, PCR, serum or plasma 5. Screening for malignant neoplasm of colon fecal occult blood, stool 6. Dependence on hemodialysis due to end stage renal disease 7. Thrombocytopenic disorder hematology referral - [facility] PLEASE CALL PATIENT AND SCHEDULE HIM AN APPOINTMENT. PLEASE FAX NOTES TO [phone]. 8. Decreased thyroid stimulating hormone level T3, free, serum or plasma T4, free, serum thyroid peroxidase (tpo) Ab, serum 9. Upper respiratory infection Discussion Note: None recorded. Plan of Care Reminders Provider Appointments Est Patient 08/14/2018 2:30PM Kiran Garduno MD Lab Hepatitis C Virus RNA, Quant, PCR, Serum or Plasma 08/07/[address] [facility] Fecal Occult Blood, Stool 08/07/[address] [facility] T3, Free, Serum or Plasma 08/07/[address] [facility] T4, Free, Serum 08/07/[address] [facility] Thyroid Peroxidase (Tpo) Ab, Serum 08/07/[address] [facility] Referral Diabetic Ophthalmology Referral 08/07/2018 [facility] Hematology Referral 08/07/2018 Nikunj Ceballos III, MD Procedures None recorded. Surgeries None recorded. Imaging None recorded. Medications Name Start Date Danielle Bates U-100 Insulin 100 unit/mL (3 mL) subcutaneous Inject 10 units every day by subcutaneous route as directed for 30 days. calcium acetate 667 mg capsule Take one capsule by mouth three times a day folic acid 1 mg tablet Take 1 tablet every day by oral route. furosemide 40 mg tablet Take 1 tablet every day by oral route. hydralazine 25 mg tablet Take 1 tablet twice a day by oral route. losartan 100 mg tablet Take 1/2 tablet by mouth twice a day metoprolol tartrate 25 mg tablet Take 1 tablet twice a day by oral route. rosuvastatin 5 mg tablet Take 1 tablet every day by oral route as directed for 30 days. Medications Administered None recorded. Vitals Height Weight BMI Blood Pressure 5 ft 8.3 in 127 lbs 19.1 kg/m2 110/60 mm[Hg] Lab Results Date Name Specimen Result Interpretation Description Value Range Status Address 07/31/2018 CMP, Serum or Plasma High Glucose 196 mg/dL 65-99 mg/dL Final [facility] Laboratory: [address] High Urea Nitrogen (BUN) 45 mg/dL 7-25 mg/dL Final [facility] Laboratory: [address] High Creatinine 6.16 mg/dL 0.70-1.33 mg/dL Final [facility] Laboratory: [address] Low eGFR Non-afr. Beninese 9 mL/min/1.73m2 > or=60 mL/min/1.73m2 [address] [facility] Laboratory: [address] Low eGFR 11 mL/min/1.73m2 > or=60 mL/min/1.73m[address] [facility]: [address] Normal BUN/creatinine Ratio 7 (calc) 6-22 (calc) Final [facility] Laboratory: [address] Normal Sodium 141 mmol/L 135-146 mmol/L Final [facility] Laboratory: [address] Normal Potassium 4.7 mmol/L 3.5-5.3 mmol/L Final [facility] Laboratory: [address] Normal Chloride 98 mmol/L 98-110 mmol/L Final [facility] [address] [facility] Carbon Dioxide 29 mmol/L 20-32 mmol/L Final [facility] [address] [facility] [facility] Calcium 8.6 mg/dL 8.6-10.3 mg/dL Final [facility] Laboratory: [address] Normal Protein, Total 7.0 g/dL 6.1-8.1 g/dL Final [facility] Laboratory: [address] Normal Albumin 4.1 g/dL 3.6-5.1 g/dL Final [facility]: [address] Normal Globulin 2.9 g/dL (calc) 1.9-3.7 g/dL (calc) Final [facility]: [address] Normal Albumin/globulin Ratio 1.4 (calc) 1.0-2.5 (calc) Final [facility]: [address] Normal Bilirubin, Total 0.6 mg/dL 0.2-1.2 mg/dL Final [facility]: [address] High Alkaline Phosphatase 131 U/L 40-115 U/L Final [facility]: [address] Normal Ast 23 U/L 10-35 U/L Final [facility]: [address] Normal Alt 24 U/L 9-46 U/L Final [facility] [address] [facility] [facility] 07/[facility]/2018 Lipid Panel, Serum Normal Cholesterol, Total 183 mg/dL <200 mg/dL Final [facility]: [address] Normal HDL Cholesterol 51 mg/dL >40 mg/dL Final [facility]: [address] Normal Triglycerides 141 mg/dL <150 mg/dL Final [facility]: [address] High LDL-cholesterol 107 mg/dL (calc) Final [facility]: [address] Normal Chol/hdlc Ratio 3.6 (calc) <5.0 (calc) Final [facility]: [address] [place] High Non HDL Cholesterol 132 mg/dL (calc) <130 mg/dL (calc) Final [facility]: [address] [place] 07/31/2018 HbA1C (Hemoglobin a1C), Blood High Hemoglobin a1C 5.7 % of total HGB <5.7 % of total HGB Final [facility]: [address] [place] EAG (mg/dL) 117 (calc) Final [facility]: [address] [place] EAG (mmol/L) 6.5 (calc) Final [facility]: [address] [place] 07/31/2018 CBC W/ Auto Diff Normal White Blood Cell Count 6.8 thousand/uL 3.8-10.8 thousand/uL Final [facility]: [address] [place] Low Red Blood Cell Count 4.00 million/uL 4.20-5.80 million/uL Final [facility]: [address] [place] Low Hemoglobin 12.4 g/dL 13.2-17.1 g/dL Final [facility]: [address] [place] Low Hematocrit 37.6 % 38.5-50.0 % Final [facility]: [address] [place] Normal Mcv 94.0 fL 80.0-100.[address] [facility]: [address] [place] Normal Mch 31.0 pg 27.0-33.[address] [facility]: [address] [place] Normal Mchc 33.0 g/dL 32.0-36.0 g/dL Final [facility]: [address] [place] High Rdw 17.5 % 11.0-15.0 % Final [facility]: [address] [place] Low Platelet Count 88 thousand/uL 140-400 thousand/uL Final [facility]: [address] [place] High Mpv 13.2 fL 7.5-12.[address] [facility]: [address] [place] Normal Absolute Neutrophils 4556 cells/uL 4141-3164 cells/uL Final [facility]: [address], [place] Normal Absolute Lymphocytes 1027 cells/uL 850-3900 cells/uL Final [facility]: [address], [place] Normal Absolute Monocytes 707 cells/uL 200-950 cells/uL Final [facility]: [address] [place] Normal Absolute Eosinophils 428 cells/uL 15-500 cells/uL Final [facility]: [address], [place] Normal Absolute Basophils 82 cells/uL 0-200 cells/uL Final [facility]: [address] Normal Neutrophils 67 % Final [facility]: [address], [place] Normal Lymphocytes 15.1 % Final [facility]: [address], [place] Normal Monocytes 10.4 % Final [facility]: [address] [place] Normal Eosinophils 6.3 % Final [facility]: [address] [place] Normal Basophils 1.2 % Final [facility]: [address] [place] 07/31/2018 TSH, Serum or Plasma Low Tsh 0.16 mIU/L 0.40-4.50 mIU/L Final [facility]: [address], [place] Allergies Code Code System Name Reaction Severity Status Onset NKDA Problems Name Status Onset Date Source Type II Diabetes Mellitus Uncontrolled Active 06/17/2018 Hypertensive Disorder Active 06/17/2018 Congestive Heart Failure Active 06/17/2018 History of Alcohol Abuse Active 06/17/2018 Chronic Kidney Disease Active 07/31/2018 Dependence on Hemodialysis Active 07/31/2018 Procedures Date Name Performed by Amputation of Toe Information not available Vaccine List Vaccine Type pneumococcal polysaccharide PPV23 06/28/2018 Social History Smoking Status Former Smoker Past Encounters 08/07/2018 Type II Diabetes Mellitus Uncontrolled; Hyperlipidemia; Body Mass Index Less than 20; Screening for Disorder; Screening for Malignant Neoplasm of Colon; Dependence on Hemodialysis Due to End Stage Renal Disease; Thrombocytopenic Disorder; Decreased Thyroid Stimulating Hormone Level; Upper Respiratory Infection Kiran Garduno MD: [address] [place] [address], Ph. 07/31/2018 Upper Respiratory Infection; Type II Diabetes Mellitus Uncontrolled; Hypertensive Disorder; Chronic Kidney Disease; Dependence on Hemodialysis; Body Mass Index Less than 20 Kiran Garduno MD: [address] [place] [address], Ph. History of Present Illness Note:<div>F/u on URI. Pt completed a z a[place]. Dry cough and sore throat have decreased progressively. Denies fever, SOB, wheezing or chest pain.</div> Review of Systems:ROS as noted in the HPI Review of Systems None recorded. Physical Exam General Adult Exam (male) Reported By: Patient Constitutional: General Appearance: ; Generalized pallor. Level of Distress: NAD. Ambulation: ambulating normally Eyes: Lids and Conjunctivae: non-injected, no discharge ENMT: Ears: TMs clear. Nose: nares patent, no sinus tenderness, no nasal discharge. Lips, Teeth, and Gums: no mouth or lip ulcers. Oropharynx: moist mucous membranes, no erythema, no exudates, tonsils not enlarged Neck: Neck: supple, trachea midline. Lymph Nodes: no cervical LAD Lungs: Respiratory effort: no dyspnea. Auscultation: breath sounds normal Cardiovascular: Heart Auscultation: RRR, normal S1, normal S2, no murmurs. Neck vessels: no carotid bruits Musculoskeletal:: Motor Strength and Tone: normal, normal tone Neurologic: Gait and Station: normal gait
--- OUTSIDE RECORDS SUMMARY | 2019-03-24 15:52 | XMS REPORT | Encounter Summary ---
Author Organization Unknown Address [address] [place] [address] Phone [phone] Care Team Providers Care Court Usher Name Role Phone Dr. Kiran Hernandez 3 [phone] Reason for Visit cough Instructions 1. Upper respiratory infection Zithromax Z-Jose 250 mg tablet Tessalon Perles 100 mg capsule 2. Type II diabetes mellitus uncontrolled diabetes tipo 2: instrucciones de cuidado - [type 2 diabetes: care instructions] HbA1c (hemoglobin A1c), blood TSH, serum or plasma 3. Hypertensive disorder CMP, serum or plasma lipid panel, serum 4. Chronic kidney disease CBC w/ auto diff 5. Dependence on hemodialysis 6. Body mass index less than 20 Discussion Note: None recorded. Plan of Care Reminders Provider Appointments Est Patient 08/07/2018 11:15AM Kiran Garduno MD Return to Office on or around 08/07/2018 Kiran Garduno MD Lab HbA1C (Hemoglobin a1C), Blood 07/31/2018 [facility] CMP, Serum or Plasma 07/31/2018 [facility] Lipid Panel, Serum 07/31/2018 [facility] CBC W/ Auto Diff 07/31/2018 [facility] TSH, Serum or Plasma 07/31/2018 [facility] Referral None recorded. Procedures None recorded. Surgeries None recorded. Imaging None recorded. Medications Name Start Date calcium acetate 667 mg capsule Take one [...] tablet twice a day by oral route. Tessalon Perles 100 mg capsule Take 1 capsule 3 times a day by oral route as needed for 10 days. Zithromax Z-Jose 250 mg tablet TAKE 2 TABLETS (500 MG) BY ORAL ROUTE ONCE DAILY FOR 1 DAY THEN 1 TABLET (250 MG) BY ORAL ROUTE ONCE DAILY FOR 4 DAYS Medications Administered None recorded. Vitals Height Weight BMI Blood Pressure 5 ft 8.3 in 128.4 lbs 19.4 kg/m2 (1) 154/80 mm[Hg] (2) 150/72 mm[Hg] Lab Results None recorded. Allergies Code [...] History Smoking Status Former Smoker Past Encounters 07/31/2018 Upper Respiratory Infection; Type II Diabetes Mellitus Uncontrolled; Hypertensive Disorder; Chronic Kidney Disease; Dependence on Hemodialysis; Body Mass Index Less than 20 Kiran Garduno MD: [address] [place] [address], Ph. History of Present Illness Note:Complaining of dry cough since 4 days ago. Concomitantly, sore throat. Denies fever, SOB, wheezing or chest pain. Review of Systems:ROS as noted in the HPI Review of Systems None recorded. Physical Exam General Adult Exam (male) Reported By: Patient Constitutional: General Appearance: ; Generalized pallor. Level of Distress: NAD. Ambulation: ambulating normally Eyes: Lids and Conjunctivae: non-injected, no discharge. EOM: EOMI ENMT: Ears: TMs clear. Nose: no sinus tenderness, nares non-patent, nasal discharge--rhinorrhea, post nasal drip. Lips, Teeth, and Gums: no mouth or lip ulcers. Oropharynx: moist mucous membranes, no exudates, tonsils not enlarged, erythema Neck: Neck: supple, trachea midline. Lymph Nodes: cervical LAD. Thyroid: no enlargement, non-tender Lungs: Respiratory effort: no dyspnea. Auscultation: breath sounds normal Cardiovascular: Heart Auscultation: RRR, normal S1, normal S2, no murmurs. Neck vessels: no carotid bruits Musculoskeletal:: Motor Strength and Tone: normal, normal tone Neurologic: Gait and Station: normal gait
--- OUTSIDE RECORDS SUMMARY | 2019-03-24 15:52 | XMS REPORT | Encounter Summary ---
Author Organization Unknown Address [address] [place] [address] Phone [phone] Care Team Providers Care Endless Belt Finisher Name Role Phone Dr. Kiran Hernandez 3 [phone] Reason for Visit End-stage renal disease; lab follow-up Instructions 1. Fatigue 2. Chronic hypotension 3. Type II diabetes mellitus uncontrolled diabetes tipo 2: instrucciones de cuidado - [type 2 diabetes: care instructions] 4. End-stage renal disease calcium acetate 667 mg capsule Discussion Note: None recorded. Plan of Care Reminders Provider Appointments Est Patient 11/21/2018 11:00AM Kiran Garduno MD Lab None recorded. Referral None recorded. Procedures None recorded. Surgeries None recorded. Imaging None recorded. Medications Name Start Date Danielle Bates U-100 Insulin 100 unit/mL (3 mL) subcutaneous Inject 6 units every day by subcutaneous route as directed for 30 days. calcium acetate 667 mg capsule Take one capsule by mouth three times a day doxazosin 8 mg tablet Take 1 tablet every day by oral route for 90 days. folic acid 1 mg tablet Take 1 tablet every day by oral route for 90 days. losartan 100 mg tablet Take 0.5 tablets every day by oral route for 90 days. minoxidil 10 mg tablet Take 0.5 tablets twice a day by oral route for 90 days. nifedipine ER 90 mg tablet,extended release 24 hr Take 1 tablet every day by oral route for 90 days. rosuvastatin 5 mg tablet Take 0.5 tablets every day by oral route. True Metrix Glucose Test Strip Medications Administered None recorded. Vitals Height Weight BMI Blood Pressure 5 ft 8.3 in 147.2 lbs 22.2 kg/m2 (1) 96/48 mm[Hg] (2) 100/52 mm[Hg] Lab Results Date Name Specimen Result Interpretation Description Value Range Status Address 10/24/2018 CBC W/ Auto Diff Wbc 4.78 x10*3/L 4.23-9.07 x10*3/L Final [facility] Laboratory: [address] [place] Low Rbc 3.05 10*12/L 4.63-6.08 10*12/L Final [facility] Laboratory: [address] [place] Low Hemoglobin 9.40 g/dL 13.70-17.50 g/dL Final [facility] Laboratory: [address] [place] Low Hematocrit 29.8 % 40.1-51.0 % Final [facility] [address] [facility] Mcv 97.7 fL 80.0-100.0 fL Final [facility]: [address] [facility] Mch 30.8 pg 25.7-32.2 pg Final [facility] Laboratory: [address] [facility] Mchc 31.5 g/dL 32.3-36.5 g/dL Final [facility]: [address] [facility] RDW-SD 50.1 fL 35.1-43.9 fL Final [facility] [address] [facility] Count 126.0 k/uL 163.0-337.0 k/uL Final [facility] Laboratory: [address] [facility] Mpv 13.4 fL 7.5-11.5 fL Final [facility] [address] [facility] Neut% 58.9 % 34.0-67.9 % Final [facility]: [address] [place] Low Lymph% 21.3 % 21.8-53.1 % Final [facility] [address] [facility] Mon% 11.7 % 5.3-12.2 % Final [facility]: [address] [place] High Eos% 7.5 % 0.8-7.0 % Final [facility] [address] [facility] Baso% 0.6 % 0.2-1.2 % Final [facility]: [address] [facility] Neut# 2.8 x10*3/L 1.8-5.4 x10*3/L Final [facility]: [address] [place] Lymph# 1.0 x10*3/L 1.3-3.6 x10*3/L Final [facility]: [address] [place] Mon# 0.6 x10*3/L 0.3-0.8 x10*3/L Final [facility]: [address] [place] Eos# 0.36 x10*3/L 0.04-0.54 x10*3/L Final [facility]: [address] [place] Baso# 0.03 x10*3/L 0.01-0.08 x10*3/L Final [facility] Laboratory: [address] [place] 10/24/2018 TSH, Serum or Plasma Tsh 2.759 uIU/mL 0.350-4.940 uIU/mL Final [facility] Laboratory: [address] [place] Allergies Code Code System Name Reaction Severity [...] History Smoking Status Former Smoker Past Encounters 11/07/2018 Fatigue; Chronic Hypotension; Type II Diabetes Mellitus Uncontrolled; End-stage Renal Disease Kiran Garduno MD: [address] [place] [address], Ph. 10/24/2018 Fatigue; Hypertensive Disorder; Hyperlipidemia; Thrombocytopenic Disorder; Dependence on Hemodialysis; Decreased Thyroid Stimulating Hormone Level; End- stage Renal Disease Kiran Garduno MD: [address] [place] [address], Ph. 10/15/2018 Hypertensive Disorder; Fatigue; Type 2 Diabetes Mellitus Kiran Larissa Garduno MD: [address] [place] [address], Ph. History of Present Illness Note:F/u on fatigue and chills. Chills and sweating in the middle of the night resolved.<div>However, he is still feeling very fatigued. Pt has been applying insulin basaglar 6 units daily (decreased on last visit). Glucose readings at home 60-111. </div><div>BPs at dialysis center running very low. (doesn't remember the readings).</div><div></div> Review of Systems Comprehensive General Adult ROS Reported By: Patient Eyes: Eyes: no vision change Cardiovascular: Cardiovascular: no chest pain, no arm pain on exertion, no shortness of breath when walking, no shortness of breath when lying down, no palpitations Respiratory: Respiratory: no cough, no wheezing Gastrointestinal: [...] in R subclavian vein.AV fistula in L forearm
--- OUTSIDE RECORDS SUMMARY | 2019-03-24 15:52 | XMS REPORT | Encounter Summary ---
Author Organization Unknown Address [address] [place] [address] Phone [phone] Care Team Providers Care Construction Equipment Overhauler Name Role Phone Dr. Kiran Hernandez 3 [phone] Reason for Visit Hypertensive disorder Instructions 1. Hypertensive disorder losartan 100 mg tablet 2. Fatigue 3. Type 2 diabetes mellitus diabetic ophthalmology referral - [place] Speaking Please call patient and schedule him an appointment. Discussion Note: None recorded. Patient educational handouts: No information available. Plan of Care Reminders Provider Appointments Est Patient 10/22/2018 10:15AM Kiran Garduno MD Lab None recorded. Referral Diabetic Ophthalmology Referral 10/15/2018 [facility] Procedures None recorded. Surgeries None recorded. Imaging None recorded. Medications Name Start Date Danielle Bates U-100 Insulin 100 unit/mL (3 mL) subcutaneous Inject 10 units every day by subcutaneous route as directed for 30 days. calcium acetate 667 mg capsule Take one capsule by mouth three times a day ciprofloxacin 250 mg tablet Take 1 tablet every day by oral route for 14 days. doxazosin 8 mg tablet Take 1 tablet twice a day by oral route for 90 days. folic acid 1 mg tablet Take 1 tablet every day by oral route for 90 days. losartan 100 mg tablet Take 0.5 tablets every day by oral route for 90 days. minoxidil 10 mg tablet Take 0.5 tablets twice a day by oral route for 90 days. nifedipine ER 60 mg tablet,extended release Take 1 tablet every day by oral route for 90 days. nifedipine ER 90 mg tablet,extended release 24 hr Take 1 tablet every day by oral route for 90 days. rosuvastatin 5 mg tablet TAKE 1 TABLET BY MOUTH EVERY DAY Medications Administered None recorded. Vitals Height Weight BMI Blood Pressure 5 ft 8.3 in 151 lbs 22.8 kg/m2 118/58 mm[Hg] Lab Results None recorded. Allergies Code Code System Name Reaction Severity Status Onset NKDA Problems Name Status Onset Date Source Type II Diabetes Mellitus Uncontrolled Active 06/17/2018 Hypertensive Disorder Active 06/17/2018 Congestive Heart Failure Active 06/17/2018 History of Alcohol Abuse Active 06/17/2018 Chronic Kidney Disease Active 07/31/2018 Dependence on Hemodialysis Active 07/31/2018 Pulmonary Edema Active External End-stage Renal Disease Active External Procedures Date Name Performed by 04/30/2018 Fistula Cannulation Set, Ea Information not available Amputation of Toe Information not available Vaccine List Vaccine Type pneumococcal polysaccharide PPV23 06/28/2018 Social History Smoking Status Former Smoker Past Encounters 10/15/2018 Hypertensive Disorder; Fatigue; Type 2 Diabetes Mellitus Kiran Garduno MD: [address] [place] [address], Ph. History of Present Illness Note:F/u on chronic conditions. Hx of CKD on HD complaining of worsening fatigue, dizzy spells and numbness in the arms since 2 months ago approximately. Pt has been at the ER 3 times since last visit. Denies chest pain, sob, LE edema, palpitations. At the ER he was diagnosed with an infection in the HD catheter. Pt was d/c home with cipro. Review of Systems Comprehensive General Adult ROS [...] loss of consciousness, no headaches Endocrine: Endocrine: no fatigue Physical Exam General Adult Exam (male) Reported By: Patient Constitutional: General Appearance: ; Generalized pallor. Level of Distress: NAD. Ambulation: ambulating normally Eyes: Lids and Conjunctivae: non-injected, no discharge Neck: Neck: supple, trachea midline. Lymph Nodes: no cervical LAD. Thyroid: no enlargement, non-tender Lungs: [...]
--- OUTSIDE RECORDS SUMMARY | 2019-03-24 15:52 | XMS REPORT | Encounter Summary ---
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 Kiran Hernandez 3 [phone] Reason for Visit Hypertensive disorder Instructions 1. Hypertensive disorder losartan 100 mg tablet 2. Fatigue 3. Type 2 diabetes mellitus diabetic ophthalmology referral - [place] Speaking Please call patient and schedule him an appointment. Discussion Note: None recorded. Patient educational handouts: No information available. Plan of Care Reminders Provider Appointments Est Patient 10/22/2018 10:15AM Kiran Garduno MD Lab None recorded. Referral Diabetic Ophthalmology Referral 10/15/2018 [facility] Procedures None recorded. Surgeries None [...] 2 Diabetes Mellitus Kiran Garduno MD: [address] [place] [address], Ph. History of Present Illness Note:F/u on [...]
--- OUTSIDE RECORDS SUMMARY | 2019-03-24 15:52 | XMS REPORT | Encounter Summary ---
Author Organization Unknown Address [address] [place] [address] Phone [phone] Care Team Providers Care Bolt Sorter Name Role Phone Dr. Kiran Hernandez 3 [phone] Reason for Visit Hypertensive disorder; Type II diabetes mellitus uncontrolled; other - see typed reason Instructions 1. Fatigue 2. Hypertensive disorder losartan 100 mg tablet 3. Hyperlipidemia colesterol alto: instrucciones de cuidado - [high cholesterol: care instructions] 4. Thrombocytopenic disorder CBC w/ auto diff 5. Dependence on hemodialysis 6. Decreased thyroid stimulating hormone level TSH, serum or plasma 7. End-stage renal disease calcium acetate 667 mg capsule Discussion Note: None recorded. Plan of Care Reminders Provider Appointments Est Patient 11/07/2018 10:15AM Kiran Garduno MD Lab CBC W/ Auto Diff 10/24/2018 [facility] TSH, Serum or Plasma 10/24/2018 [facility] Referral None recorded. Procedures None recorded. [...] ft 8.3 in 151 lbs 22.8 kg/m2 124/54 mm[Hg] Lab Results None recorded. Allergies Code [...] History Smoking Status Former Smoker Past Encounters 10/24/2018 Fatigue; Hypertensive Disorder; Hyperlipidemia; Thrombocytopenic Disorder; Dependence on Hemodialysis; Decreased Thyroid Stimulating Hormone Level; End- stage Renal Disease Kiran Garduno MD: [address] [place] [address], Ph. 10/15/2018 Hypertensive Disorder; Fatigue; Type 2 Diabetes Mellitus Kiran Garduno MD: [address] [place] [address], Ph. History of Present Illness Note:F/u on chronic conditions. Still complaining of fatigue and dizzy spells. Wakes up in the middle of the night with chills and sweating, that gets better with a coke. Denies chest pain, sob or palpitations.<div>Hx of dm using basaglar 10 units daily. Not checking glucose readings at home.</div> Review of Systems Comprehensive General Adult ROS [...]
--- OUTSIDE RECORDS SUMMARY | 2019-03-24 15:52 | XMS REPORT | Encounter Summary ---
Author Organization Unknown Address [address] [place] [address] Phone [phone] Care Team Providers Care Office Clerk Routine Name Role Phone Dr. Kirna Hernandez 3 [phone] Reason for Visit lab follow-up Instructions 1. Hypertensive disorder losartan 100 mg tablet doxazosin 8 mg tablet hydralazine 25 mg tablet 2. Congestive heart failure furosemide 40 mg tablet 3. Anemia folic acid 1 mg tablet Discussion Note: None recorded. Patient educational handouts: No information available. Plan of Care Reminders Provider Appointments Est Patient 11/13/2018 9:00AM Kiran Garduno MD Lab None recorded. Referral [...] day by oral route for 90 days. furosemide 40 mg tablet Take 1 tablet every day by oral route for 90 days. hydralazine 25 mg tablet Take 1 tablet twice a day by oral route for 90 days. losartan 100 mg tablet Take 0.5 tablets every day by oral route for 90 days. metoprolol tartrate 25 mg tablet Take 1 tablet twice a day by oral route. rosuvastatin 5 mg tablet TAKE 1 TABLET BY MOUTH EVERY DAY Medications Administered None recorded. Vitals Height Weight BMI Blood Pressure 5 ft 8.3 in 132 lbs 19.9 kg/m2 134/64 mm[Hg] Lab Results Date Name Specimen Result Interpretation Description Value Range Status Address 08/07/2018 T3, Free, Serum or Plasma Normal T3, Free 2.8 pg/mL 2.3- 4.2 pg/mL [facility] Laboratory: [address] [place] [address] 08/07/2018 Hepatitis C Virus RNA, Quant, PCR, Serum or Plasma Normal Hepatitis C Antibody non-reactive non-reactive Final [facility]: [address] [place] [address] Normal Signal to Cut-off 0.04 <1.00 Final [facility]: [address] [place] [address] 08/07/2018 Thyroid Peroxidase (Tpo) Ab, Serum Normal Thyroid Peroxidase Antibodies <1 IU/mL <9 IU/mL Final [facility]: [address] [place] [address] 08/07/2018 T4, Free, Serum Normal T4, Free 1.7 NG/dL 0.8-1.8 NG/dL Final [facility] Laboratory: [address] [place] [address] 07/31/2018 CMP, Serum or Plasma High Glucose 196 mg/dL 65-99 mg/dL Final [facility]: [address] [place] [address] High Urea Nitrogen (BUN) 45 mg/dL 7-25 mg/dL Final [facility]: [address] [place] [address] High Creatinine 6.16 mg/dL 0.70-1.33 mg/dL Final [facility] Laboratory: [address] Low eGFR Non-afr. Danish 9 mL/min/1.73m2 > or=60 mL/min/1.73m2 Final [facility]: [address] Low eGFR 11 mL/min/1.73m2 > or=60 mL/min/1.73m2 Final [facility]: [address] Normal BUN/creatinine Ratio 7 (calc) 6-22 (calc) Final [facility]: [address] Normal Sodium 141 mmol/L 135-146 mmol/L Final [facility]: [address] Normal Potassium 4.7 mmol/L 3.5-5.3 mmol/L Final [facility]: [address] Normal Chloride 98 mmol/L 98-110 mmol/L Final [facility]: [address] Normal Carbon Dioxide 29 mmol/L 20-32 mmol/L Final [facility]: [address] Normal Calcium 8.6 mg/dL 8.6-10.3 mg/dL Final [facility]: [address] [place] Normal Protein, Total 7.0 g/dL 6.1-8.1 g/dL Final [facility]: [address] Normal Albumin 4.1 g/dL 3.6-5.1 g/dL Final [facility]: [address] Normal Globulin 2.9 g/dL (calc) 1.9-3.7 g/dL (calc) Final [facility]: [address] Normal Albumin/globulin Ratio 1.4 (calc) 1.0-2.5 (calc) Final [facility]: [address] Normal Bilirubin, Total 0.6 mg/dL 0.2-1.2 mg/dL Final [facility]: [address] High Alkaline Phosphatase 131 U/L 40-115 U/L Final [facility]: [address] Normal Ast 23 U/L 10-35 U/L Final [facility]: [address] Normal Alt 24 U/L 9-46 U/L Final [facility]: [address] 07/31/2018 Lipid Panel, Serum Normal Cholesterol, Total 183 mg/dL <200 mg/dL Final [facility]: [address] Normal HDL Cholesterol 51 mg/dL >40 mg/dL Final [facility]: [address] Normal Triglycerides 141 mg/dL <150 mg/dL Final [facility]: [address] High LDL-cholesterol 107 mg/dL (calc) Final [facility]: [address] Normal Chol/hdlc Ratio 3.6 (calc) <5.0 (calc) Final [facility]: [address] High Non HDL Cholesterol 132 mg/dL (calc) <130 mg/dL (calc) Final [facility]: [address] 07/31/2018 HbA1C (Hemoglobin a1C), Blood High Hemoglobin a1C 5.7 % of total HGB <5.7 % of total HGB Final [facility]: [address] EAG (mg/dL) 117 (calc) Final [facility]: [address] EAG (mmol/L) 6.5 (calc) Final [facility]: [address] [place] 07/31/2018 CBC W/ Auto Diff Normal White Blood Cell Count 6.8 thousand/uL 3.8-10.8 thousand/uL Final [facility]: [address] [place] Low Red Blood Cell Count 4.00 million/uL 4.20-5.80 million/uL Final [facility]: [address] [place] Low Hemoglobin 12.4 g/dL 13.2-17.1 g/dL Final [facility]: [address] [place] Low Hematocrit 37.6 % 38.5-50.0 % Final [facility]: [address] [place] Normal Mcv 94.0 fL 80.0-100.0 fL Final [facility]: [address] [place] Normal Mch 31.0 pg 27.0-33.0 pg Final [facility]: [address] [place] Normal Mchc 33.0 g/dL 32.0-36.0 g/dL Final [facility]: [address] [place] [address] 17.5 % 11.0-15.0 % Final [facility]: [address] [place] Low Platelet Count 88 thousand/uL 140-400 thousand/uL Final [facility]: [address] [place] High Mpv 13.2 fL 7.5-12.5 fL Final [facility]: [address] [place] Normal Absolute Neutrophils 4556 cells/uL 4925-9962 cells/uL Final [facility]: [address] [place] Normal Absolute Lymphocytes 1027 cells/uL 850-3900 cells/uL Final [facility]: [address] [place] Normal Absolute Monocytes 707 cells/uL 200-950 cells/uL Final [facility]: [address], [place] Normal Absolute Eosinophils 428 cells/uL 15-500 cells/uL Final [facility]: [address], [place] Normal Absolute Basophils 82 cells/uL 0-200 cells/uL Final [facility]: [address] Normal Neutrophils 67 % Final [facility]: [address] Normal Lymphocytes 15.1 % Final [facility]: [address] [place] Normal Monocytes 10.4 % Final [facility]: [address] Normal Eosinophils 6.3 % Final [facility]: [address] [place] Normal Basophils 1.2 % Final [facility]: [address] 07/31/2018 TSH, Serum or Plasma Low Tsh 0.16 mIU/L 0.40-4.50 mIU/L Final [facility]: [address] Allergies Code Code System Name Reaction Severity Status Onset NKDA Problems Name Status Onset Date Source Type II Diabetes Mellitus Uncontrolled Active 06/17/2018 Hypertensive Disorder Active 06/17/2018 Congestive Heart Failure Active 06/17/2018 History of Alcohol Abuse Active 06/17/2018 Chronic Kidney Disease Active 07/31/2018 Dependence on Hemodialysis Active 07/31/2018 Pulmonary Edema Active External End-stage Renal Disease Active External Procedures Date Name Performed by Amputation of Toe Information not available Vaccine List Vaccine Type pneumococcal polysaccharide PPV23 06/28/2018 Social History Smoking Status Former Smoker Past Encounters 08/14/2018 Hypertensive Disorder; Congestive Heart Failure; Anemia Kiran Garduno MD: [address] [place] [address], Ph. 08/07/2018 Type II Diabetes Mellitus Uncontrolled; Hyperlipidemia; Body Mass Index Less than 20; Screening for Disorder; Screening for Malignant Neoplasm of Colon; Dependence on Hemodialysis Due to End Stage Renal Disease; Thrombocytopenic Disorder; Decreased Thyroid Stimulating Hormone Level; Upper Respiratory Infection Kiran Garduno MD: [address] [place] [address], Ph. 07/31/2018 Upper Respiratory Infection; Type II Diabetes Mellitus Uncontrolled; Hypertensive Disorder; Chronic Kidney Disease; Dependence on Hemodialysis; Body Mass Index Less than 20 Kiran Garduno MD: [address] [place] [address], Ph. History of Present Illness Note:F/u on chronic conditions. Needs refills. Non compliant with meds (pt hasn't started using insulin or taking rosuvastatin yet.). Non compliant with diet or exercise. Not checking BPs at home. No side effects with meds. No new concerns. Review of Systems Comprehensive General Adult ROS [...] and Conjunctivae: non-injected, no discharge. EOM: EOMI Neck: Neck: supple, trachea midline. Lymph Nodes: no cervical LAD. Thyroid: no enlargement, non-tender Lungs: Respiratory effort: no dyspnea. Auscultation: breath sounds normal Cardiovascular: Heart Auscultation: RRR, normal S1, normal S2, no murmurs. Neck vessels: no carotid bruits Musculoskeletal:: Motor Strength and Tone: normal, normal tone Neurologic: Gait and Station: normal gait
--- OUTSIDE RECORDS SUMMARY | 2019-03-24 15:53 | XMS REPORT | Encounter Summary ---
Author Organization Unknown Address [address] [place] [id number] Phone [phone] Care Team Providers Care Layout Inspector Name Role Phone Dr. Kiran Hernandez 3 [phone] Harsh Christianson MD 111 [phone] Reason for Visit pre-op evaluation Instructions 1. Hypertensive disorder losartan 50 mg tablet 2. Pre-surgery evaluation CBC w/ auto diff electrocardiogram CMP, serum or plasma 3. Type II diabetes mellitus uncontrolled diabetes tipo 2: instrucciones de cuidado - [type 2 diabetes: care instructions] HbA1c (hemoglobin A1c), blood 4. Hyperlipidemia colesterol alto: instrucciones de cuidado - [high cholesterol: care instructions] lipid panel, serum Discussion Note: None recorded. Plan of Care Reminders Provider Appointments Est Patient 02/20/2019 10:00AM Kiran Garduno MD Lab CBC W/ Auto Diff 12/26/2018 [facility] CMP, Serum or Plasma 12/26/2018 [facility] Lipid Panel, Serum 12/26/2018 [facility] HbA1C (Hemoglobin a1C), Blood 12/26/2018 [facility] Referral None recorded. Procedures None recorded. Surgeries None recorded. Imaging Electrocardiogram 12/26/2018 [facility] ([facility] [place] Medications Name Start Date Danielle Bates U-100 [...] THE MORNING AND EVENING FOR 2 WEEKS doxazosin 8 mg tablet Take 1 tablet twice a day by oral route. folic acid 1 mg tablet Take 1 tablet every day by oral route for 90 days. furosemide 40 mg tablet lancets 33 gauge losartan 100 mg tablet Take 0.5 tablets every day by oral route for 90 days. losartan 50 mg tablet Take 1 tablet every day by oral route as directed for 90 days. minoxidil 10 mg tablet Take 0.5 tablets every day by oral route as directed for 30 days. rosuvastatin 5 mg tablet Take 0.5 tablets every day by oral route as directed for 90 days. True Metrix Glucose Test Strip use once daily in the morning Medications Administered None recorded. Vitals Height Weight BMI Blood Pressure 5 ft 8.3 in 147.4 lbs 22.2 kg/m2 124/54 mm[Hg] Lab Results Date Name Specimen Result Interpretation Description Value Range Status Address Electrocardiogram No observation recorded. [facility] ([facility]) [place]: [address] [place] [address] Allergies Code Code System Name Reaction Severity Status Onset NKDA Problems Name Status Onset Date Source Type II Diabetes Mellitus Uncontrolled Active 06/17/2018 Hypertensive Disorder Active 06/17/2018 Congestive Heart Failure Active 06/17/2018 History of Alcohol Abuse Active 06/17/2018 Chronic Kidney Disease Active 07/31/2018 Dependence on Hemodialysis Active 07/31/2018 Hyperlipidemia Active 12/26/2018 Pulmonary Edema Active End-stage Renal Disease Active Procedures Date Name Performed by 04/30/2018 Fistula Cannulation Set, Ea Information not available Amputation of Toe Information not available 12/26/2018 Electrocardiogram [facility] ([facility]) [address] [id number] (Work Place) Vaccine List Vaccine Type pneumococcal polysaccharide PPV23 06/28/2018 Social History Tobacco Smoking Status Former Smoker Past Encounters 12/26/2018 Hypertensive Disorder; Pre-surgery Evaluation; Type II Diabetes Mellitus Uncontrolled; Hyperlipidemia Kiran Garduno MD: [address] [place] [address], Ph. History of Present Illness Note:F/u on dm: glucose readings at home 100s.<div>F/u on htn: pt was still taking doxazosin. BPs at home: 116s/50s.</div><div>Needs clearance for cataract surgery.</div> Review of Systems Comprehensive General Adult ROS [...]
--- OUTSIDE RECORDS SUMMARY | 2019-03-24 15:53 | XMS REPORT | Encounter Summary ---
Author Organization Unknown Address [address] [place] [address] Phone [phone] Care Team Providers Care Freight Dispatcher Name Role Phone Dr. Kiran Hernandez 3 [phone] Harsh Christianson MD 111 [phone] Reason for Visit loss of appetite Instructions 1. Abnormal weight loss 2. Decrease in appetite 3. Type 2 diabetes mellitus 4. Benign essential hypertension 5. Thrombocytopenic disorder hematology referral - *Please call the patient and make an appointment* PLEASE SEND BACK CONSULT NOTES TO [phone] 6. Screening for malignant neoplasm of colon Discussion Note: None recorded. Patient educational handouts: No information available. Plan of Care Reminders Provider Appointments Return to Office on or around 05/31/2019 Kiran Garduno MD Lab None recorded. Referral Hematology Referral 02/25/2019 Tarik Aly MD Procedures None recorded. Surgeries None recorded. [...] for 90 days. furosemide 40 mg tablet gabapentin 100 mg capsule lancets 33 gauge losartan 50 mg tablet Take 1 tablet every day by oral route as directed for 90 days. minoxidil 10 mg tablet Take 1 tablet every day by oral route as directed for 30 days. moxifloxacin 0.5 % eye drops NOT USING RX YET nifedipine ER 60 mg tablet,extended release Take 1 tablet every day by oral route. prednisolone acetate 1 % eye drops,suspension NOT USING RX YET rosuvastatin 5 mg tablet Take 1 tablet every day by oral route as directed. True Metrix Glucose Test Strip use once daily in the morning Medications Administered None recorded. Vitals Height Weight BMI Blood Pressure 5 ft 8.3 in 136 lbs 20.5 kg/m2 130/60 mm[Hg] Results Lab Results None recorded. Allergies Code Code [...] Information not available Vaccine List Vaccine Type influenza, injectable, quadrivalent 02/11/2019 pneumococcal polysaccharide PPV23 06/28/2018 Social History Tobacco Smoking Status Former Smoker Past Encounters 02/25/2019 Abnormal Weight Loss; Decrease in Appetite; Type 2 Diabetes Mellitus; Benign Essential Hypertension; Thrombocytopenic Disorder; Screening for Malignant Neoplasm of Colon Kiran Garduno MD: [place] [address], Ph. History of Present Illness Note:Complaining of poor appetite and weight loss of 11 lbs since last visit. < div>Poor compliant with meds. Still applying insulin basaglar (he was instructed not to use it in 12/31/18). Glucose readings at home 99, 104, 138.</div><div>Pt re-started taking nifedipine (medication was d/c a few months ago).</div><div> BPs at home 108/49, 153/66, 136/57.</div><div>Hx of thrombocytopenia. Pt was referred to hematology. He hasn't scheduled an appointment yet.</div> Review of Systems Comprehensive General Adult ROS Reported By: Patient Constitutional: Constitutional: weight loss (11 lbs) Eyes: Eyes: no vision change Cardiovascular: Cardiovascular: [...] no murmurs. Neck vessels: no carotid bruits Abdomen: Inspection and Palpation: soft, non-distended, no tenderness, no guarding, no rebound tenderness, no masses. Liver: no hepatomegaly. Spleen: no splenomegaly Musculoskeletal:: Motor Strength and Tone: normal, normal tone. Joints, Bones, and Muscles: normal movement of all extremities. Extremities: no edema Neurologic: Gait and Station: normal gait. Cranial Nerves: grossly intact. Coordination and Cerebellum: no tremor
[2019-03-24 17:48] LABS: BASOPHILS # (AUTO) 0.1 (0.0-0.1); EOSINOPHILS # (AUTO) 0.2 (0.0-0.4); HEMATOCRIT 29.4 % (38.2-49.6); HEMOGLOBIN 9.7 g/dL (14.0-18.0); LYMPHOCYTES % 20.4 % (18.0-39.1); MEAN CORPUSCULAR HEMOGLOBIN 29.4 pg (28-32); MEAN CORPUSCULAR VOLUME 89.1 fL (81-99); MONOCYTES # (AUTO) 0.7 (0.2-0.8); MONOCYTES % 13.3 % (4.4-11.3); NEUTROPHILS # (AUTO) 3.1 (2.1-6.9); NEUTROPHILS % 61.1 % (38.7-80.0); PLATELET COUNT 241 x10e3/uL (140-360); RED CELL DISTRIBUTION WIDTH 13.4 % (11.7-14.4)
[2019-03-24 18:07] LABS: INR 0.92; PROTHROMBIN TIME 12.9 seconds (11.9-14.5)
[2019-03-24 18:09] LABS: ALBUMIN/GLOBULIN RATIO 0.6 (0.8-2.0); ANION GAP 14.3 mmol/L (8-16); CALCIUM 9.1 mg/dL (8.4-10.2); CREATININE, SERUM 3.34 mg/dL (0.72-1.25); POTASSIUM 3.3 mmol/L (3.5-5.1)
[2019-03-24 18:18] LABS: CREATINE KINASE MB 1.1 ng/mL (0-5.0)
[2019-03-24] MEDS ORDERED: HYDRALAZINE HCL 20 MG/ML VIAL IV ONE (18:41)
--- NOTE | 2019-03-24 18:48 | Diagnostic Imaging Report ---
EXAMINATION: CHEST SINGLE (NOT PORTABLE) INDICATION: ^ERMD ORDER ^[id number] ^[id number] ^Y COMPARISON: Chest radiograph 09/28/2018 FINDINGS: AP view TUBES and LINES: Interval removal of the right IJ hemodialysis catheter. LUNGS: Lungs are well inflated. Subsegmental atelectasis in the right lower lobe, increased. Mild bilateral interstitial edema, decreased. PLEURA: Moderate right-sided pleural effusion, new. No left pleural effusion. No pneumothorax. HEART AND MEDIASTINUM: Prominent cardiac silhouette but decreased since prior exam. BONES AND SOFT TISSUES: No acute osseous lesion. Soft tissues are unremarkable. UPPER ABDOMEN: No free air under the diaphragm. IMPRESSION: New moderate right pleural effusion with increased subsegmental atelectasis in the right lower lobe. Cannot exclude underlying pneumonia. Decreased size of the cardiac silhouette with a near resolution of the bilateral pulmonary edema. Signed by: Dr. Erika Stark M.D. on 03/24/2019 6:45 PM
--- NOTE | 2019-03-24 18:51 | NUR ---
hydralazine given for bp of 228/98
[2019-03-24 19:13] VITALS: BP 153/62
== END 2019-03-24 19:20 | disposition home or self-care (01) ==
LOC: ER 15:49
DX: R11.0 Nausea (principal); I12.0 Hypertensive chronic kidney disease with stage 5 chronic kidney disease or end stage renal disease; E11.22 Type 2 diabetes mellitus with diabetic chronic kidney disease; N18.6 End stage renal disease; Z99.2 Dependence on renal dialysis; E78.5 Hyperlipidemia, unspecified
CPT/HCPCS: 36415; 71045; 80053; 82550; 82553; 83880; 84484; 85025; 85610; 93005; 99284; J0360

== ENCOUNTER 2019-05-07 14:44 | Inpatient (IN) | payer MEDICARE, OTHER ==
[~2019-05-07] VITALS: Ht 167.6 cm; Wt 56.2 kg
[2019-05-07] MEDS: AZITHROMYCIN 500MG/NS 250 ML 250 ML IV SCH (04:00)
[2019-05-07 16:35] LABS: BASOPHILS % 0.6 % (0.0-1.0); EOSINOPHILS # (AUTO) 0.1 (0.0-0.4); EOSINOPHILS % 2.5 % (0.0-6.0); HEMATOCRIT 21.2 % (38.2-49.6); LYMPHOCYTES % 18.6 % (18.0-39.1); MEAN CORPUSCULAR HEMOGLOBIN 28.9 pg (28-32); MEAN CORPUSCULAR HGB CONC 32.1 g/dL (31-35); MEAN CORPUSCULAR VOLUME 90.2 fL (81-99); MONOCYTES # (AUTO) 0.5 (0.2-0.8); MONOCYTES % 10.2 % (4.4-11.3); NEUTROPHILS # (AUTO) 3.5 (2.1-6.9); NEUTROPHILS % 67.7 % (38.7-80.0); PLATELET COUNT 248 x10e3/uL (140-360); RED BLOOD COUNT 2.35 x10e6/uL (4.3-5.7); RED CELL DISTRIBUTION WIDTH 13.7 % (11.7-14.4)
[2019-05-07 16:40] LABS: HEMOGLOBIN 6.8 g/dL (14.0-18.0)
[2019-05-07 16:45] LABS: INR 0.91; PROTHROMBIN TIME 12.7 seconds (11.9-14.5)
[2019-05-07 16:46] LABS: PARTIAL THROMBOPLASTIN TIME 42.4 seconds (23.8-35.5)
[2019-05-07 16:55] LABS: ALBUMIN 2.7 g/dL (3.5-5.0); ALBUMIN/GLOBULIN RATIO 0.6 (0.8-2.0); ALKALINE PHOSPHATASE 93 IU/L (40-150); ANION GAP 14.1 mmol/L (8-16); BLOOD UREA NITROGEN 7 mg/dL (7-26); BUN/CREATININE RATIO 3 (6-25); CARBON DIOXIDE 32 mmol/L (22-29); CHLORIDE 97 mmol/L (98-107); CREATINE KINASE 61 IU/L (30-200); CREATININE, SERUM 2.14 mg/dL (0.72-1.25); EST GLOMERULAR FILTRATION RATE 32 ML/MIN (60-); GLUCOSE 72 mg/dL (74-118); POTASSIUM 3.1 mmol/L (3.5-5.1); SODIUM 140 mmol/L (136-145)
[2019-05-07 16:58] LABS: ALANINE AMINOTRANSFERASE < 6 IU/L (0-55)
--- NOTE | 2019-05-07 17:06 | NUR ---
blood drawn/verified and sent to lab for type and screen
[2019-05-07] MEDS ORDERED: HYDRALAZINE HCL 20 MG/ML VIAL IV ONE ×2 (17:23→18:33)
--- NOTE | 2019-05-07 17:45 | Diagnostic Imaging Report ---
Chest, PA and lateral. History: Cough, unresponsive to outpatient antibiotics. Comparison: 05/24/2018, 09/27/2018. Discussion: The heart is unchanged in size and configuration. There is a moderate to large right pleural effusion with associated compressive atelectasis of the right lower lung. There is no left pleural effusion. There is no pneumothorax. No acute osseous abnormalities. IMPRESSION: Moderate to large right pleural effusion which has slightly increased in size from prior examination. Signed by: Ricardo Addison MD on 05/07/2019 5:42 PM
--- NOTE | 2019-05-07 17:53 | NUR ---
blood consent completed and signed with patient
[2019-05-07] MEDS ORDERED: ONDANSETRON HCL INJ 2MG/ML 2ML 2 MG/ML VIAL IV PRN (18:30)
[2019-05-07] MEDS ORDERED: FUROSEMIDE INJ 10 MG/ML 4 ML VIAL IV ONE (18:45)
[2019-05-07] MEDS: CEFTRIAXONE SOD 1 GM/NS 50 ML 50 ML IV SCH (18:47)
--- NOTE | 2019-05-07 19:12 | NUR ---
report given to Vania PENA
[2019-05-07 21:10] VITALS: BP 191/65
[2019-05-07 23:00] VITALS: BP 192/83
--- NOTE | 2019-05-07 23:13 | NUR ---
Blood specimen sent to lab for analysis of cardiac enzymes.
--- NOTE | 2019-05-07 23:30 | NUR ---
Patient received via stretcher from ER. AAO x 3. Patient had no complaints of pain. Respirations even and non-labored. Admission history obtained. Initial physical assessment performed. Patient oriented to room, call light and plan of care. Fall precautions implemented. Patient instructed to call for assistance when needed. Call light within reach.
[2019-05-08] VITALS (8 sets, daily range): BP systolic 130–197; BP diastolic 63–86
--- NOTE | 2019-05-08 00:15 | NUR ---
Patient signed "Disclosure and Consent " form for upcoming blood transfusion.
[2019-05-08 00:28] LABS: CREATINE KINASE MB 0.7 ng/mL (0-5.0)
--- NOTE | 2019-05-08 00:36 | NUR ---
Dr. Sow paged to notify MD about patient's elevated blood pressure (192/83) with a HR of 84 and to obtain insulin sliding scale for patient. A message was left on his voice mail. Awaiting call back.
--- NOTE | 2019-05-08 00:55 | NUR ---
Dr. Sow called back with new orders: Hydralazine 10 mg Q3H PRN, low-dose Humalog and PT lab.
--- NOTE | 2019-05-08 01:00 | NUR ---
Patient informed about upcoming "Thoracentesis" procedure and NPO status after midnight. Patient verbalized understanding and voluntarily signed "Disclosure and Consent" form.
[2019-05-08] MEDS: HYDRALAZINE HCL 20 MG/ML VIAL IV PRN ×2 (01:37→05:52)
--- NOTE | 2019-05-08 02:35 | NUR ---
Dr. Lockhart here to see patient. New order received for "Stool for occult blood, and EGD procedure tomorrow after the patient undergoes Thoracentesis. Patient should be kept NPO for EGD procedure.
--- NOTE | 2019-05-08 03:48 | NUR ---
Patient signed "Disclosure and Consent" form for EGD procedure.
[2019-05-08] MEDS: AZITHROMYCIN 500MG/NS 250 ML 250 ML IV SCH (04:00)
[2019-05-08] MEDS ORDERED: SODIUM CHLORIDE 0.9% 250ML 250 ML ONE ×2 (04:01→20:14)
--- NOTE | 2019-05-08 05:47 | NUR ---
Dr. Rivas paged for "Routine Consult". Reason: ESRD. Awaiting call back.
[2019-05-08 05:57] LABS: ALBUMIN 2.4 g/dL (3.5-5.0); ALBUMIN/GLOBULIN RATIO 0.6 (0.8-2.0); ALKALINE PHOSPHATASE 88 IU/L (40-150); BUN/CREATININE RATIO 5 (6-25); CALCIUM 8.6 mg/dL (8.4-10.2); CARBON DIOXIDE 30 mmol/L (22-29); CHLORIDE 96 mmol/L (98-107); CHOL/HDL RATIO 4.9 (3.9-4.7); CHOLESTEROL 127 MD/DL (0-199); EST GLOMERULAR FILTRATION RATE 19 ML/MIN (60-); GLUCOSE 120 mg/dL (74-118); HDL CHOLESTEROL 26 MG/DL (40-60); LDL CHOLESTEROL 82 MG/DL (60-130); SODIUM 136 mmol/L (136-145); TRIGLYCERIDES 95 MG/DL (0-149)
--- NOTE | 2019-05-08 06:03 | History and Physical ---
PRIMARY CARE PHYSICIAN: Dr. Walter. BOTTLED BEVERAGE INSPECTOR: Dr. Rivas. CHIEF COMPLAINT: Generalized weakness and increased shortness of breath. HISTORY OF PRESENT ILLNESS: This is a 58-year-old male with past medical history of hypertension, ESRD on dialysis, diabetes, PVD with right 5th toe amputation, presented to the ER with complaints of generalized weakness, shortness of breath, and nonproductive cough that has progressively worsened over the past few days. He reports going to dialysis today and was instructed to come to the ER for further evaluation of his acute symptoms. PAST MEDICAL HISTORY: 1. Hypertension. 2. High cholesterol. 3. End-stage renal disease on dialysis. 4. Anemia of chronic disease. PAST SURGICAL HISTORY: Right 5th toe amputation. FAMILY MEDICAL HISTORY: Mother has diabetes. Father has heart disease. SOCIAL HISTORY: He denies any tobacco, alcohol, or illicit drug use. ALLERGIES: NO KNOWN DRUG ALLERGIES. REVIEW OF SYSTEMS: GENERAL: Shortness of breath and fatigue. HEENT: No head trauma. LUNGS: Shortness of breath and nonproductive cough. CARDIOVASCULAR: No chest pain. GI: No nausea or vomiting. NEURO: No dizziness. SKIN: Dry and intact. PHYSICAL EXAMINATION: VITAL SIGNS: Temperature 98.3, pulse 79, respirations 17, blood pressure 154/64, pulse ox 98% on room air. GENERAL: Fatigue. HEENT: Normocephalic, atraumatic. NECK: Supple. LUNGS: Decreased breath sounds and mild wheezing. CARDIOVASCULAR: Regular rate and rhythm. GI: Soft and nontender. NEUROLOGIC: Alert, awake, and oriented x3. MUSCULOSKELETAL: Moves all extremities. SKIN: Dry. PSYCH: Calm. LABORATORY DATA: WBC 5.11, hemoglobin 6.8, hematocrit 21.2, platelets 248. Sodium 140, potassium 3.1, chloride 97, CO2 32, creatinine 2.14, estimated GFR 32, glucose 72, AST 16, ALT less than 6, CK 61, troponin 0.037, albumin 2.7. PT 12.7, INR 0.91, APTT 42.4. Influenza negative. Blood cultures pending. IMAGING: Chest x-ray shows moderate to large right pleural effusion, which has slightly increased in size from prior examination. IMPRESSION: 1. Acute anemia. Hemoglobin 6.8. We will transfuse 2 units of blood. Repeat labs in the a.m. 2. Dyspnea due to moderate to large pleural effusion. IR has been consulted for therapeutic thoracentesis. Blood cultures have been sent. He started on Rocephin and azithromycin in the ER. We will continue. 3. Hypertension. We will continue home medication and hydralazine as needed. 4. End-stage renal disease. Dialysis per Nephrology. 5. High cholesterol. On statin. 6. Hypokalemia. Potassium 3.1. We will replace. 7. Deep vein thrombosis prophylaxis. No chemical anticoagulation due to anemia. PLAN: Transfuse 2 units of blood and IR for thoracentesis. Dictated by HIGINIO Dunn Heather Sow MD MY/MODL /[id number]
[2019-05-08 06:10] LABS: ALANINE AMINOTRANSFERASE < 6 IU/L (0-55)
[2019-05-08 06:11] LABS: BLOOD UREA NITROGEN 15 mg/dL (7-26); CREATININE, SERUM 3.28 mg/dL (0.72-1.25)
[2019-05-08 06:12] LABS: INR 0.92; PROTHROMBIN TIME 12.9 seconds (11.9-14.5)
[2019-05-08 06:24] LABS: CREATINE KINASE MB 0.5 ng/mL (0-5.0)
[2019-05-08 06:39] LABS: BASOPHILS % 0.7 % (0.0-1.0); EOSINOPHILS # (AUTO) 0.1 (0.0-0.4); EOSINOPHILS % 2.9 % (0.0-6.0); HEMATOCRIT 21.7 % (38.2-49.6); LYMPHOCYTES # (AUTO) 0.9 (1.0-3.2); LYMPHOCYTES % 22.1 % (18.0-39.1); MEAN CORPUSCULAR HEMOGLOBIN 28.8 pg (28-32); MEAN CORPUSCULAR HGB CONC 31.8 g/dL (31-35); MEAN CORPUSCULAR VOLUME 90.4 fL (81-99); MONOCYTES # (AUTO) 0.6 (0.2-0.8); MONOCYTES % 13.7 % (4.4-11.3); NEUTROPHILS # (AUTO) 2.5 (2.1-6.9); NEUTROPHILS % 60.4 % (38.7-80.0); PLATELET COUNT 228 x10e3/uL (140-360); RED CELL DISTRIBUTION WIDTH 13.5 % (11.7-14.4)
[2019-05-08 06:48] LABS: HEMOGLOBIN 6.9 g/dL (14.0-18.0)
[2019-05-08 07:05] LABS: % IRON SATURATION 24 % (15-50); IRON 35 ug/dL (65-175); TOTAL IRON BINDING CAPACITY 147 ug/dL (261-478); TRANSFERRIN 105 mg/dL (174-364)
--- NOTE | 2019-05-08 07:15 | NUR ---
Patient resting comfortably. Shift report given to oncoming nurse.
[2019-05-08] MEDS: INSULIN LISPRO 100 UNIT/1 ML 3ML VIAL SQ SCH ×4 (07:30→21:00)
[2019-05-08 07:31] LABS: FERRITIN > 2000.00 ng/mL (21.81-274.66)
--- NOTE | 2019-05-08 08:21 | NUR ---
spoke with [facility], for pt to receive dialysis.
[2019-05-08] MEDS ORDERED: CALCIUM ACETATE 667 MG GELCAP PO SCH (09:00)
[2019-05-08] MEDS: FUROSEMIDE 40 MG TAB PO SCH (09:00)
[2019-05-08] MEDS: HYDRALAZINE HCL 25 MG TAB PO SCH ×2 (09:00→20:39)
[2019-05-08] MEDS ORDERED: LOSARTAN POTASSIUM 100 MG TAB PO SCH (09:00)
[2019-05-08] MEDS ORDERED: SIMVASTATIN 20 MG TAB PO SCH (09:00)
[2019-05-08] MEDS: LOSARTAN POTASSIUM 25 MG TAB PO SCH ×2 (09:00→20:39)
[2019-05-08] MEDS: FOLIC ACID 1 MG TAB PO SCH (09:00)
[2019-05-08] MEDS: METOPROLOL TARTRATE 25 MG TAB PO SCH ×2 (09:00→22:00)
[2019-05-08] MEDS ORDERED: SODIUM BICARBONATE 650 MG TAB PO SCH (09:00)
--- NOTE | 2019-05-08 10:30 | NUR ---
PT TO RECEIVE BLOOD WITH DIALYSIS, PER DR ORTIZ
--- NOTE | 2019-05-08 10:37 | NUR ---
CONSENT SIGNED FOR HEMODIALYSIS AND TO RECEIVE BLOOD TRANSFUSION.
[2019-05-08] MEDS: SEVELAMER CARBONATE 800 MG TAB PO SCH ×2 (12:00→20:39)
[2019-05-08] MEDS ORDERED: SODIUM CHLORIDE 0.9% 1000ML 2,000 ML ONE (12:14)
[2019-05-08 16:30] LABS: CREATINE KINASE MB 0.3 ng/mL (0-5.0)
--- NOTE | 2019-05-08 17:30 | NUR ---
PT 1 ST UNIT OF BLOOD STARTED WITH DIALYSIS. PT TOLERATING WELL
[2019-05-08] MEDS ORDERED: SODIUM CHLORIDE 0.9% 500ML 500 ML ONE (18:05)
--- NOTE | 2019-05-08 18:30 | NUR ---
2ND UNIT OF BLOOD GIVEN. PT TOLERATED WELL.
--- NOTE | 2019-05-08 18:42 | Consultation ---
DATE OF CONSULTATION: 05/08/2019 HISTORY OF PRESENT ILLNESS: A 58-year-old gentleman, underlying history of end-stage renal disease, history of anemia, multiple comorbidities, who had progressive anemia and worsening shortness of breath, failure to thrive, poor appetite, as an outpatient recently had upper respiratory infection, was treated with Levaquin. The patient claims that has not completely resolved. He feels weak with poor appetite, nausea. He states his stools are dark, but denies any hematemesis or melena. He denies any fever or chills. He has worsening dyspnea on exertion. He has developed significant edema of his eyelids as well as has a puffy face on observation. ALLERGIES: HE HAS NO DRUG ALLERGIES. PAST MEDICAL HISTORY: As above plus history of diabetes and hypertension, history of congestive heart failure. CURRENT MEDICATIONS: Metoprolol 25 mg p.o. q.12, nifedipine 60 mg at bedtime, losartan 50 mg p.o. b.i.d., hydralazine 25 mg p.o. b.i.d. He is on folic acid 1 mg daily. He is on calcium acetate, PhosLo 1 one tablet p.o. t.i.d. with meals, which I am going to stop. He is on furosemide 40 mg daily. He is on Humalog insulin. SOCIAL HISTORY: Does not smoke or drink. FAMILY HISTORY: Significant for diabetes. PHYSICAL EXAMINATION: GENERAL: The patient is awake, alert, sitting up. VITAL SIGNS: Blood pressure 130/63, pulse rate 78, afebrile, oxygen saturation 97% on nasal cannula. HEAD AND NECK: Eyelids appear puffy. Neck veins are distended. JVD noted. LUNGS: Right-sided basilar rales with left impaired percussion note all the way up to mid lung field. HEART: S1, S2 audible. S3 gallop. ABDOMEN: Otherwise soft, nontender. No apparent visceromegaly. EXTREMITIES: Lower extremity examination, 1+ ankle edema. LABORATORY TESTS: Shows white count 4.1, hemoglobin 6.9, potassium 3, bicarb 30, serum creatinine 3.28. INR 0.92. LFTs noted. IMPRESSION AND PLAN: Anemia must rule out GI bleed. Iron deficiency anemia. His ferritin remains high, but last transferrin sats were low at the dialysis facility had significant left-sided pleural effusion, hypokalemic, hypertensive, fluid overload. GI is consulted. I will consult Pulmonary. Order thoracentesis, order dialysis, transfuse 2 units of packed RBC, fluid restriction, phosphorus binders. Discontinue bicarbonate tablets. Please see orders. MD MICAH Graff/HAIL /[id number]
--- NOTE | 2019-05-08 19:02 | Progress Note ---
DATE: 05/08/2019 ORACLE BUSINESS INTELLIGENCE DEVELOPER: Dr. Rivas with Nephrology. CHIEF COMPLAINT: Generalized weakness and increased shortness of breath. SUBJECTIVE: The patient was seen in the room, preparing to have hemodialysis. He denies any chest pain or cough. He is pending for 2 units of PRBC transfusion during dialysis. PHYSICAL EXAMINATION: VITAL SIGNS: Temperature 98.6, pulse is 81, respirations 16, blood pressure 174/82, pulse ox 97% on room air. GENERAL: No acute distress. HEENT: Normocephalic, atraumatic. NECK: Supple. LUNGS: Decreased breath sounds with mild wheezing. CARDIOVASCULAR: Regular rate and rhythm. GI: Soft and nontender. NEUROLOGIC: Alert, awake and oriented x3. MUSCULOSKELETAL: Moves all extremities. SKIN: Dry. PSYCH: Calm. LABORATORY DATA: WBC 4.17, hemoglobin 6.9, hematocrit 21.7, platelets 228. Sodium 136, potassium 3.0, creatinine 3.28, BUN is 15. Iron 35, ferritin greater than 2000. AST and ALT within normal limits. CK 45. Troponin x3 negative. Triglycerides 95, LDL 82, HDL 26. Vitamin B12 326. Influenza A and B negative. IMAGING DATA: As of yesterday showed moderate to large right pleural effusion, which has slightly increased since the last examination. IMPRESSION: 1. Acute anemia. Hemoglobin 6.9. We will transfuse 2 units of packed red blood cell with dialysis today. 2. Dyspnea due to [id number] pleural effusion. IR has been consulted for therapeutic thoracentesis. Due to dialysis, it is rescheduled for tomorrow. We will continue on Rocephin and azithromycin. 3. Low-grade fever. Blood culture is pending. We will continue on IV antibiotics. We will await on final blood culture results. 4. Hypertension. We will continue home medications and hydralazine as needed. 5. End-stage renal disease on dialysis. Defer to Nephrology. 6. Hypokalemia, hemodialysis today. 7. Iron deficiency anemia. 8. High cholesterol. Continue on statin. 9. Deep vein thrombosis prophylaxis. No chemical anticoagulation due to anemia and thoracentesis tomorrow. PLAN: Plan is HD today with transfusion of 2 units of PRBC. IR for thoracentesis tomorrow. Dictated by HIGINIO Dunn Yiching MD RENEE Tam/BRTI /[id number]
--- NOTE | 2019-05-08 19:37 | NUR ---
BLOOD FINISHED PT ALERT RESP EVEN AND UNLABORED, CALL LIGHT IN REACH
--- NOTE | 2019-05-08 19:38 | NUR ---
Patient received undergoing hemodialysis. AAO x 3. No acute distress noted. Call light within reach.
[2019-05-08] MEDS: CEFTRIAXONE SOD 1 GM/NS 50 ML 50 ML IV SCH (20:39)
[2019-05-08] MEDS: NIFEDIPINE CR 30 MG TAB PO SCH (22:00)
[2019-05-09] VITALS (8 sets, daily range): BP systolic 127–183; BP diastolic 56–83
[2019-05-09] MEDS: HYDRALAZINE HCL 20 MG/ML VIAL IV PRN ×2 (01:45→20:25)
--- NOTE | 2019-05-09 02:35 | NUR ---
Patient complained of pain to lower back (12/07). Dr. Sow notified and made aware of patient's NPO status. New order received for Tylenol 650 mg PO Q6H PRN. stated it was OK despite NPO status.
--- NOTE | 2019-05-09 03:00 | Consultation ---
DATE OF CONSULTATION: Pulmonary Consultation REASON FOR CONSULT: Pleural effusion. HISTORY OF PRESENT ILLNESS: Mr. Kurtis Borjas is a 58-year-old male, who was admitted under Dr. Sow's service with complaints of shortness of breath, fluid overload. The patient is getting hemodialysis. Mr. Kurtis Borjas is a 58-year-old male, who presented to the emergency room with shortness of breath, increasing weakness. He has history of end-stage renal disease, on hemodialysis, diabetes, peripheral arterial disease. He reports that shortness of breath and cough was progressively getting worse. He reports going to dialysis today, but he was instructed to come to the emergency room. He reports the shortness of breath was constant. He is getting hemodialysis. REVIEW OF SYSTEMS: GENERAL: Denies any fever or chills. HEAD: Denies any head trauma. ENT: Denies any earaches. CVS: Denies any chest pain. RESPIRATORY: Shortness of breath. The rest of the review of systems are negative except as in HPI. PAST MEDICAL HISTORY: Hypertension, hyperlipidemia, end-stage renal disease. PAST SURGICAL HISTORY: Right 5th toe amputation. FAMILY AND SOCIAL HISTORY: He does not smoke, does not drink. PHYSICAL EXAMINATION: VITAL SIGNS: Temperature 98.6, pulse of 81, blood pressure 174/82. CHEST: Clear. Decreased air entry on the right side. HEART: S1, S2 audible. ABDOMEN: Soft. EXTREMITIES: No pedal edema. NEUROLOGIC: Awake, alert. LABORATORY DATA: Reviewed. Hemoglobin 6.9. Chemistry, reviewed. Chest x-ray, reviewed. ASSESSMENT: Mr. Kurtis Borjas is a 58-year-old male with end-stage renal disease with large effusion. Current problem: 1. Large pleural effusion. 2. End-stage renal disease. 3. Hypertension. 4. Anemia. 5. Possibility of pneumonia. PLAN: 1. Agree with IV antibiotics. 2. Thoracentesis by IR. 3. Oxygen as needed to keep the O2 saturation more than or equal to 92%. 4. Hemodialysis per Nephrology recommendation. Thank you for this consult. MD SHAMAR Carrillo/BRIT /[id number]
[2019-05-09] MEDS: ACETAMINOPHEN 325 MG TAB PO PRN ×2 (03:01→14:30)
[2019-05-09] MEDS: AZITHROMYCIN 500MG/NS 250 ML 250 ML IV SCH (04:07)
[2019-05-09 05:53] LABS: BASOPHILS % 0.6 % (0.0-1.0); EOSINOPHILS # (AUTO) 0.2 (0.0-0.4); EOSINOPHILS % 3.2 % (0.0-6.0); HEMATOCRIT 25.9 % (38.2-49.6); HEMOGLOBIN 8.4 g/dL (14.0-18.0); LYMPHOCYTES % 19.4 % (18.0-39.1); MEAN CORPUSCULAR HEMOGLOBIN 29.2 pg (28-32); MEAN CORPUSCULAR HGB CONC 32.4 g/dL (31-35); MEAN CORPUSCULAR VOLUME 89.9 fL (81-99); MONOCYTES # (AUTO) 0.6 (0.2-0.8); NEUTROPHILS # (AUTO) 3.4 (2.1-6.9); NEUTROPHILS % 64.6 % (38.7-80.0); PLATELET COUNT 199 x10e3/uL (140-360); RED BLOOD COUNT 2.88 x10e6/uL (4.3-5.7); RED CELL DISTRIBUTION WIDTH 14.2 % (11.7-14.4)
[2019-05-09 06:15] LABS: ANION GAP 15.9 mmol/L (8-16); CALCIUM 8.3 mg/dL (8.4-10.2); CREATININE, SERUM 3.47 mg/dL (0.72-1.25)
[2019-05-09 06:21] LABS: POTASSIUM 2.9 mmol/L (3.5-5.1)
--- NOTE | 2019-05-09 06:25 | NUR ---
Dr. Ashli Sow notified of critical potassium level of 2.9. Dr. Sow stated that Dr. Rivas prefers to give orders for potassium replacement. Will page Dr. Rivas.
--- NOTE | 2019-05-09 06:26 | NUR ---
Lamination Machine Operator reported critical potassium level of 2.9. Dr. Amrit Rivas paged. Awaiting call back.
--- NOTE | 2019-05-09 07:00 | NUR ---
Walking rounds done. Patient resting comfortably. Shift report given to oncoming nurse regarding patient's status.
[2019-05-09] MEDS: INSULIN LISPRO 100 UNIT/1 ML 3ML VIAL SQ SCH ×4 (07:30→21:00)
[2019-05-09] MEDS ORDERED: POTASSIUM CHLORIDE 20MEQ/100ML 100 ML IV ONE (08:00)
[2019-05-09] MEDS: IRON SUCROSE 100 MG in SODIUM CHLORIDE 0.9% 100 ML 100 ML IV SCH (08:00)
[2019-05-09] MEDS: SEVELAMER CARBONATE 800 MG TAB PO SCH ×3 (08:00→17:00)
[2019-05-09] MEDS: CYANOCOBALAMIN INJ 1,000 MCG/ML VIAL IM SCH (08:00)
[2019-05-09] MEDS ORDERED: SODIUM CHLORIDE 0.9% 250ML 250 ML ONE (08:20)
[2019-05-09] MEDS: LOSARTAN POTASSIUM 25 MG TAB PO SCH ×2 (09:00→17:00)
[2019-05-09] MEDS: METOPROLOL TARTRATE 25 MG TAB PO SCH ×2 (09:00→21:00)
[2019-05-09] MEDS: HYDRALAZINE HCL 25 MG TAB PO SCH ×2 (09:00→17:00)
--- NOTE | 2019-05-09 09:37 | NUR ---
Per HD to be done on 05/10/19 instead of today. Spoke with Mary with [facility].
--- NOTE | 2019-05-09 13:32 | Diagnostic Imaging Report ---
EXAMINATION: CHEST SINGLE (NOT PORTABLE) INDICATION: Postoperative COMPARISON: Chest radiograph 05/07/2019 FINDINGS: LINES/TUBES:EKG leads overlie the chest. LUNGS:The left lung is well inflated. The right lung is moderately inflated. Patchy opacities at the right lung base silhouetting the right hemidiaphragm. PLEURA:Moderate right pleural effusion. No pneumothorax status post thoracentesis. MEDIASTINUM:The cardiomediastinal silhouette appears unchanged in size and shape. BONES/SOFT TISSUES:No acute osseous injury. ABDOMEN:No free air under the diaphragm. IMPRESSION: No pneumothorax status post right or centesis. Residual moderate right pleural effusion. Patchy opacity at the right lung base, likely associated subsegmental atelectasis. Signed by: Chandrakant Leija MD on 05/09/2019 1:29 PM
[2019-05-09 15:05] LABS: LYMPHOCYTES,BODY FLUID 87 %; MONO/MACROPHG,BODY FLUID 5 %; NEUTROPHILS,BODY FLUID 4 %
[2019-05-09 15:10] LABS: RBC,BODY FLUID 66825 cells/uL; WBC,BODY FLUID 1210 cells/uL
[2019-05-09 15:11] LABS: BODY FLUID APPEARANCE CLOUDY; BODY FLUID COLOR RED; BODY FLUID TYPE P; OTHER CELLS,BODY FLUID 4 %
--- NOTE | 2019-05-09 15:58 | Diagnostic Imaging Report ---
PROCEDURE: Ultrasound-guided thoracentesis Procedural Personnel Attending physician(s): Chandrakant Leija MD Fellow physician(s): None Resident physician(s): None Advanced practice provider(s): None Pre-procedure diagnosis: Pleural effusion Post-procedure diagnosis: Same Indication: Pleural effusion with pain or pressure symptoms Additional clinical history: None Complications: No immediate complications. IMPRESSION: Ultrasound-guided thoracentesis with drainage of 1200 mL of dark warren fluid. Plan: Resume care by clinical team. PROCEDURE SUMMARY: - Limited thoracic ultrasound - Ultrasound-guided thoracentesis - Additional procedure(s): None PROCEDURE DETAILS: Pre-procedure Consent: Informed consent for the procedure including risks, benefits and alternatives was obtained and time-out was performed prior to the procedure. Preparation: The site was prepared and draped using maximal sterile barrier technique including cutaneous antisepsis. Anesthesia/sedation Level of anesthesia/sedation: No sedation Limited thoracic ultrasound Limited thoracic ultrasound was performed using a curved transducer. A safe window for thoracentesis was identified. Left hemithorax findings: Trace pleural effusion, insufficient for safe thoracentesis Right hemithorax findings: Moderate pleural effusion Thoracentesis Local anesthesia was administered. The pleural space was accessed under real-time ultrasound guidance and fluid return confirmed position. The fluid was drained. The catheter was removed, and a sterile bandage was applied. Catheter placed: 5F Yueh Post-drainage hemithorax findings: Small pleural effusion Additional Details Additional description of procedure: None Equipment details: None Specimens removed: Pleural fluid Estimated blood loss (mL): Less than 10 Standardized report: [id number] Attestation Signer name: Chandrakant Leija MD I attest that I was present for the entire procedure. I reviewed the stored images and agree with the report as written. Signed by: Chandrakant Leija MD on 05/09/2019 3:54 PM
[2019-05-09] MEDS ORDERED: PANTOPRAZOLE 40 MG 10ML VIAL ONE (16:14)
[2019-05-09] MEDS ORDERED: PANTOPRAZOLE 40 MG 10ML VIAL IV NR (16:15)
--- NOTE | 2019-05-09 16:37 | NUR ---
Nutrition Intervention Note RD Recommendation(s) for Physician: -Recommend advancing to renal diet when medically appropriate -When diet advances, recommend providing pt with Nepro for added nutrition Plan of Care: RD following, monitoring for tolerance and adequacy Nutrition reason for involvement: Nutrition Risk Trigger MST 2 RD Assessment (05/09/2019) Chart reviewed. Labs and meds reviewed. Pt is a 58 year old male admitted with anemia, ESRD, pleural effusion, and pneumonia. Pt is currently NPO. Pt was unable to quantify PO intake amount prior to admission at time of visit. Pt mentioned he had lost weight and used to weigh 150 lbs 2 months ago. Pt currently has a weight of 139 lbs in chart. If accurate, this would be a 7% wt loss in 2 months significant weight loss. No N/V or chewing/swallowing issues noted. Recommend Nepro for added nutrition when diet advances. Will continue to monitor. Principal Problems/Diagnoses: anemia, ESRD, pleural effusion, and pneumonia PMH: HTN, high cholesterol, ESRD, anemia of chronic disease GI: flat, soft, non-tender Skin: no pressure ulcers noted Labs: (05/09/19) K 2.9, Creat 3.47, iron 35 Meds: (05/09/19) vitamin b12, IV iron, azithromycin, renvela, insulin, losartan, metroprolol, lasix, folic acid, zofran Ht: 72 in (per pt) Wt:139 lb BMI: 18.8 kg/m2 IBW: 178 lb Malnutrition Evaluation (05/09/2019) The patient does not meet criteria for a specified degree of malnutrition at this time. Will re-evaluate at follow-up as appropriate. Energy intake: Unknown Weight loss: 7% weight loss in 2 months Fat loss: no loss identified Muscle loss: Moderate lower extremities Supporting Evidence: Fluid accumulation: no accumulation identified per MD note Functional Status: unable to evaluate Nutrition Prescription (Diet Order): NPO Estimated Nutritional Needs: 2634-3616 calories/day (30-35 kcal/kg CBW) 76-95 g protein/day (1.2-1.5 g pro/kg CBW) Diet Adequacy: Pt is NPO Tolerance: N/A. Pt is NPO Diet Education Needs Assessment: Diet education not indicated, patient on temporary/transition diet. Nutrition Care Level: moderate Nutrition Diagnosis: Unintended weight loss related to predicted h/o inadequate energy intake related to 7% weight loss in 2 months. Goal: Patient will meet 75-100% of estimated needs by follow up Progress: N/A Interventions: -mineral (Phos, K, Na) modified diet, Commercial beverage Monitoring/Evaluation: -Total energy intake, Total protein intake, Modified diet, Liquid supplement, Weight change Signed: Carmella Christopher RD, LD
[2019-05-09] MEDS: FUROSEMIDE 40 MG TAB PO SCH (16:59)
[2019-05-09] MEDS: FOLIC ACID 1 MG TAB PO SCH (16:59)
[2019-05-09] MEDS: CEFTRIAXONE SOD 1 GM/NS 50 ML 50 ML IV SCH (17:00)
[2019-05-09] MEDS ORDERED: PROPOFOL IV EMULSION 10 MG/ML 50 ML VIAL ONE (17:13)
--- NOTE | 2019-05-09 19:23 | NUR ---
Walking rounds done. No s/s of acute distress noted.
[2019-05-09] MEDS: PANTOPRAZOLE 40 MG 10ML VIAL IV SCH (20:35)
[2019-05-09] MEDS: NIFEDIPINE CR 30 MG TAB PO SCH (21:00)
[2019-05-09] MEDS ORDERED: CRESTOR 10MG PO SCH (21:00)
[2019-05-09] MEDS: CRESTOR 10MG PO SCH (21:51)
--- NOTE | 2019-05-09 23:13 | Operative Report ---
DATE OF PROCEDURE: 05/09/2019 SURGEON: Dennis Lockhart MD PROCEDURE: EGD with biopsies. INDICATION FOR PROCEDURE: Iron deficiency anemia, early satiety, weight loss. MEDICATIONS: The patient was done under MAC, please see anesthesiologist's note. PROCEDURE IN DETAIL: With the patient in left lateral decubitus position, a flexible fiberoptic Olympus gastroscope was introduced into the esophagus under direct visualization without any difficulty. The esophagus appeared to be within normal limits. The scope was then advanced with ease into the stomach and the mucosa overlying the body was somewhat raised and nodular and the rugal folds were generous. Multiple random biopsies were obtained. The antrum revealed some patchy erythema, [id number] edema, biopsies were obtained and sent to stain for H pylori. Pylorus was of normal contour and shape, was intubated with ease and the scope was advanced all the way to the second portion of the duodenum. Biopsies were obtained from the proximal second portion and duodenal bulb to rule out sprue. The scope was then withdrawn back into the stomach and retroflexed mucosa overlying the fundus and cardia grossly appeared to be within normal limits. The scope was then straightened out, it was subsequently withdrawn, patient tolerated procedure well. IMPRESSION: 1. Normal esophagus. 2. Gastric body, mucosa raised somewhat nodular with prominent, friable rugal fold, multiple biopsies obtained. 3. Gastritis, antrum, biopsied. Biopsies sent to stain for H pylori. 4. Rule out sprue. PLAN: Follow up histology. Start Protonix 40 mg IV b.i.d. The patient might benefit from a CT scan of the abdomen, attention stomach to rule out linitis plastica. Dennis Lockhart MD [facility]/MODL /[id number] cc: MD Gerson Trevizo MD Atilio A Serrano, MD
--- NOTE | 2019-05-09 23:13 | Progress Note ---
DATE: SUBJECTIVE: The patient is breathing well, scheduled for thoracentesis. He is denying any complaints of chest pain. PHYSICAL EXAMINATION: VITAL SIGNS: Temperature 97.5, pulse of 73, blood pressure 134/56, respiratory rate of 18. CHEST: Clear to auscultation bilaterally. Decreased air entry on the right side. HEART: S1 and S2 audible. ABDOMEN: Soft. EXTREMITIES: No pedal edema. NEUROLOGIC: Awake and alert. LABORATORY DATA: Sodium 137, potassium 2.9, white count of 5.2. ASSESSMENT/PLAN: Mr. Kurtis Borjas is a 58-year-old male with pleural effusion. He has a thoracentesis scheduled. We will review the pleural fluid analysis. Continue IV antibiotics for possibility of pneumonia. Oxygen as needed to keep the O2 saturation more than or equal to 92%. Hemodialysis per Nephrology recommendation. MD SHAMAR Carrillo/BRIT /[id number]
--- NOTE | 2019-05-09 23:44 | Progress Note ---
DATE: 05/09/2019 CONSULTANTS: 1. Dr. Rivas with Nephrology. 2. Dr. Fraire with Pulmonary. 3. Dr. Lockhart with GI. CHIEF COMPLAINT: Generalized weakness, shortness of breath and fluid overload. SUBJECTIVE: The patient was seen status post thoracentesis this morning. He reports feeling better. He reports pain at thoracentesis site. Otherwise no chest pain, shortness of breath. PHYSICAL EXAMINATION: VITAL SIGNS: Temperature 98.0, pulse is 76, respirations 16, blood pressure 177/80, pulse ox 97% on room air. GENERAL: No acute distress. HEENT: Normocephalic, atraumatic. NECK: Supple. LUNGS: Decreased breath sounds. CARDIOVASCULAR: Regular rate and rhythm. GI: Soft and nontender. NEUROLOGIC: Alert, awake, and oriented x3. MUSCULOSKELETAL: Moves all extremities. SKIN: Dry. PSYCH: Calm. LABORATORY DATA: WBC 5.26, RBC 2.88, hemoglobin 8.4, hematocrit 25.9, and platelets 199. Sodium 137, potassium 2.9, creatinine 3.47, estimated GFR 18, blood glucose is 93, calcium is 8.3, iron 35. IMAGING: Chest x-ray shows no pneumothorax, status post thoracentesis, residual moderate right pleural effusion and patchy opacity at the right lung base, likely associated with subsegmental atelectasis. ASSESSMENT: 1. Anemia. Status post 2 units of PRBCs. Hemoglobin is stable at 8. We will continue to monitor and transfuse if less than 7. GI has also been consulted. 2. Dyspnea due to moderate to large pleural effusion. Status post ultrasound-guided thoracentesis per IR today. Removed 1200 mL. We will continue with empiric antibiotics and dialysis. Pulmonary on the case. 3. Low-grade fever. Blood cultures negative so far. We will continue with IV antibiotics. 4. Hypertension. We will resume home medication and hydralazine as needed. 5. End-stage renal disease on dialysis Sunday, Sunday, Sunday. Defer to Nephrology. 6. Hypokalemia. Replace and recheck. 7. Iron deficiency anemia. 8. High cholesterol, on statin. 9. Deep vein thrombosis prophylaxis. No chemical anticoagulation due to anemia. PLAN: Continue with current treatment, status post thoracentesis today, repeat chest x-ray, no pneumothorax. GI has been consulted for further anemia workup. Dictated by Ambar Moise, ANP MD RENEE Trevizo/BRIT /[id number]
[2019-05-10] VITALS (9 sets, daily range): BP systolic 117–193; BP diastolic 55–83
[2019-05-10] MEDS: HYDRALAZINE HCL 20 MG/ML VIAL IV PRN (00:51)
[2019-05-10] MEDS: AZITHROMYCIN 500MG/NS 250 ML 250 ML IV SCH (04:17)
[2019-05-10] MEDS: IRON SUCROSE 100 MG in SODIUM CHLORIDE 0.9% 100 ML 100 ML IV SCH (05:20)
[2019-05-10 05:55] LABS: BASOPHILS # (AUTO) 0.1 (0.0-0.1); BASOPHILS % 0.9 % (0.0-1.0); EOSINOPHILS # (AUTO) 0.2 (0.0-0.4); EOSINOPHILS % 3.2 % (0.0-6.0); HEMATOCRIT 25.8 % (38.2-49.6); HEMOGLOBIN 8.3 g/dL (14.0-18.0); LYMPHOCYTES # (AUTO) 0.9 (1.0-3.2); LYMPHOCYTES % 15.5 % (18.0-39.1); MEAN CORPUSCULAR HEMOGLOBIN 28.9 pg (28-32); MEAN CORPUSCULAR HGB CONC 32.2 g/dL (31-35); MEAN CORPUSCULAR VOLUME 89.9 fL (81-99); MONOCYTES # (AUTO) 0.6 (0.2-0.8); MONOCYTES % 11.1 % (4.4-11.3); NEUTROPHILS # (AUTO) 3.9 (2.1-6.9); NEUTROPHILS % 69.1 % (38.7-80.0); PLATELET COUNT 197 x10e3/uL (140-360); RED BLOOD COUNT 2.87 x10e6/uL (4.3-5.7); RED CELL DISTRIBUTION WIDTH 13.9 % (11.7-14.4)
[2019-05-10 06:13] LABS: ANION GAP 16.1 mmol/L (8-16); CALCIUM 7.9 mg/dL (8.4-10.2); CREATININE, SERUM 5.14 mg/dL (0.72-1.25); POTASSIUM 3.1 mmol/L (3.5-5.1)
[2019-05-10] MEDS: INSULIN LISPRO 100 UNIT/1 ML 3ML VIAL SQ SCH ×4 (07:30→21:00)
[2019-05-10] MEDS: CRESTOR 10MG PO SCH ×2 (08:00→21:24)
[2019-05-10] MEDS: SEVELAMER CARBONATE 800 MG TAB PO SCH ×3 (08:00→17:59)
[2019-05-10] MEDS: FUROSEMIDE 40 MG TAB PO SCH (08:00)
[2019-05-10] MEDS: FOLIC ACID 1 MG TAB PO SCH (08:00)
[2019-05-10] MEDS: CYANOCOBALAMIN INJ 1,000 MCG/ML VIAL IM SCH (08:00)
[2019-05-10] MEDS: PANTOPRAZOLE 40 MG 10ML VIAL IV SCH ×2 (08:00→21:24)
[2019-05-10] MEDS: METOPROLOL TARTRATE 25 MG TAB PO SCH ×2 (08:41→21:24)
[2019-05-10] MEDS: HYDRALAZINE HCL 25 MG TAB PO SCH ×2 (08:41→17:58)
[2019-05-10] MEDS: LOSARTAN POTASSIUM 25 MG TAB PO SCH ×2 (08:41→17:59)
--- NOTE | 2019-05-10 13:56 | Progress Note ---
DATE: 05/10/2019 SUBJECTIVE: Had his pleural tap. Dyspnea is better. There is still some discomfort from there. Additionally, noted that gastric body was nodular and has been biopsied. His appetite continues to be depressed. There is concern for malignancy due to recent weight loss also as well as TB now that the thoracentesis fluid is predominantly lymphocytic. PHYSICAL EXAMINATION: GENERAL: Sitting up, no distress, but does appear thinly built. VITAL SIGNS: Temperature 97.7, pulse 80, blood pressure 146/55. CHEST: Diminished breath sounds in the right base. EXTREMITIES: No edema. Access is patent. ASSESSMENT: 1. End-stage renal disease, fluid overload, unexplained weight loss at this time. 2. Hypertension. PLAN: Hemodialysis today. Please see my orders for details. We will try to remove 2 to 3 L of fluid due to his tendency to retain it and hopefully his blood pressure will tolerate the said UF. Await full results of the biopsies as well as pleural fluid cytologies and cultures. MD CE MezaK/MODL /[id number]
--- NOTE | 2019-05-10 14:56 | Progress Note ---
DATE: 05/10/2019 CONSULTANTS: 1. Dr. Rivas with Nephrology. 2. Dr. Fraire with Pulmonary. 3. Dr. Lockhart with GI. CHIEF COMPLAINT: Generalized weakness and shortness of breath with fluid overload. SUBJECTIVE: The patient was seen, getting ready for bedside dialysis. He reports feeling and breathing better post thoracentesis. He reports still with poor appetite and unable to eat much. He denies any chest pain or shortness of breath. PHYSICAL EXAMINATION: VITAL SIGNS: Temperature 97.7, pulse is 73, respirations 18, blood pressure 146/55, and pulse ox is 94% on room air. GENERAL: No acute distress. HEENT: Normocephalic and atraumatic. NECK: Supple. LUNGS: Decreased breath sounds. CARDIOVASCULAR: Regular rate and rhythm. GI: Soft and nontender. NEUROLOGIC: Alert, awake, and oriented x3. MUSCULOSKELETAL: Moves all extremities. SKIN: Dry. PSYCH: Calm. LABORATORY DATA: WBC 5.66, hemoglobin 8.3, and hematocrit 25.8. Sodium 140, potassium 3.1, anion gap is 16.1, creatinine is 5.14, estimated GFR is 12, and calcium is 7.9. MICROBIOLOGY: Negative so far. IMPRESSION: 1. Dyspnea due to fluid overload and moderate to large pleural effusion. Status post thoracentesis, removed 1200 mL. Shortness of breath improved. Continue empiric antibiotics and dialysis. Pulmonary has been consulted. 2. Anemia, likely of chronic disease. Status post 2 units of PRBC. Hemoglobin is stable at 8.3. We will continue to monitor closely. 3. Low-grade fever. Blood culture is negative so far. Pleural fluid is pending. We will continue with IV antibiotics. 4. Poor appetite and dysphagia. GI has been consulted. 5. Hypertension. We will continue with home medication and add hydralazine as needed. 6. End-stage renal disease, on dialysis. Defer to Nephrology. 7. Hypokalemia. Replace and recheck. 8. Iron deficiency anemia. Continue with iron supplements. 9. High cholesterol. Continue statin. 10. Deep vein thrombosis prophylaxis. No chemical anticoagulation due to anemia. Dictated by Ambar Moise, HIGINIO Heather Sow MD MY/MODL /[id number]
[2019-05-10] MEDS: CEFTRIAXONE SOD 1 GM/NS 50 ML 50 ML IV SCH (17:59)
--- NOTE | 2019-05-10 19:10 | NUR ---
Patient received lying in bed. AAO x 3. No complaints of pain. Respirations even and non-labored . Bed locked and in lowest position. Bed rails up x 2. Patient instructed to call for assistance when needed. Call light within reach.
[2019-05-10] MEDS: NIFEDIPINE CR 30 MG TAB PO SCH (21:25)
[2019-05-11] VITALS (8 sets, daily range): BP systolic 146–191; BP diastolic 65–91
--- NOTE | 2019-05-11 01:14 | NUR ---
Dr. Faheem Lockhart here to see patient. New order received for CT of the abdomen with oral contrast.
[2019-05-11] MEDS: AZITHROMYCIN 500MG/NS 250 ML 250 ML IV SCH (04:30)
[2019-05-11] MEDS: IRON SUCROSE 100 MG in SODIUM CHLORIDE 0.9% 100 ML 100 ML IV SCH (05:00)
--- NOTE | 2019-05-11 06:55 | NUR ---
Walking rounds done. Shift report given to oncoming nurse.
[2019-05-11] MEDS ORDERED: DIATRIZOATE MEGL/DIATRIZOA SOD 30 ML BTL PO ONE (07:03)
[2019-05-11] MEDS: INSULIN LISPRO 100 UNIT/1 ML 3ML VIAL SQ SCH ×4 (07:30→21:00)
--- NOTE | 2019-05-11 09:33 | Diagnostic Imaging Report ---
CT Abdomen And Pelvis Without IV Contrast INDICATION: Weight loss TECHNIQUE: 5 mm collimation axial images obtained from the diaphragm to the level of the pubic symphysis without nonionic intravenous contrast. Oral contrast was administered. RADIATION DOSE: Total DLP: 201.1 mGy*cm Estimated effective dose: (DLP x 0.015 x size factor) mSv CTDIvol has been reviewed. It is below the limits set by the Radiation Protocol Committee (RPC). Dose reduction techniques used: Automated exposure control, adjustment of the mAs and/or kVp according to patient size, standardized low-dose protocol, and/or iterative reconstruction technique. COMPARISON: CT chest 06/18/2018. ABDOMEN FINDINGS: Lung Bases: Loculated right pleural effusion is redemonstrated measuring 5 cm in transverse dimension and extending anteriorly. Rounded atelectasis of the lower lobe and possibly middle lobe are present. Posterior layering left pleural effusion measures 3.4 cm. The heart is enlarged. The esophagus is collapsed.. Liver: Normal in attenuation without mass. Intrahepatic veins are prominent suggestive of right heart failure. Gallbladder: Present and mildly contracted. No gallstones. No ductal dilatation. Pancreas: Normal attenuation without mass. Spleen: Normal in attenuation and size without mass . Adrenal Glands: No evidence for mass. Kidneys: Right Kidney: Diminutive. No cortical mass or hydronephrosis. Left Kidney: Diminutive. No cortical mass or hydronephrosis. Lymph Nodes: No enlarged abdominal or periaortic lymph nodes. Aorta: Normal in diameter. Diffuse arterial calcifications. PELVIS FINDINGS: Bowel: Stomach: Collapsed but otherwise normal. Small Bowel: Enteric contrast throughout. No mural thickening or dilatation. Large Bowel: Unopacified. Mild to moderate stool burden. No mural thickening or pericolonic inflammation. A few scattered diverticula are present. Appendix: Normal. Bladder: Underdistended. Lymph Nodes: No enlarged mesenteric, pelvic, or internal lymph nodes. Peritoneum/retroperitoneum: Mild peritoneal edema. No loculated fluid collection. Bones: No focal osseous lesions. Soft tissues: Mild subcutaneous edema. IMPRESSION: 1. Loculated right pleural effusion with round atelectasis of the adjacent lung. Posterior layering left pleural effusion. 2. Findings of end-stage renal disease. Cardiomegaly and right heart failure. 3. No evidence for bowel obstruction or inflammation. 4. No mass or lymphadenopathy in the abdomen or pelvis to explain weight loss. 5. Mild peritoneal edema and subcutaneous edema. Signed by: Dr. Wes Cruz MD on 05/11/2019 9:30 AM
[2019-05-11] MEDS: METOPROLOL TARTRATE 25 MG TAB PO SCH ×2 (09:54→21:03)
[2019-05-11] MEDS: FUROSEMIDE 40 MG TAB PO SCH (09:54)
[2019-05-11] MEDS: SEVELAMER CARBONATE 800 MG TAB PO SCH ×3 (09:54→16:58)
[2019-05-11] MEDS: LOSARTAN POTASSIUM 25 MG TAB PO SCH ×2 (09:54→16:58)
[2019-05-11] MEDS: CYANOCOBALAMIN INJ 1,000 MCG/ML VIAL IM SCH (09:54)
[2019-05-11] MEDS: CRESTOR 10MG PO SCH ×2 (09:54→21:02)
[2019-05-11] MEDS: HYDRALAZINE HCL 25 MG TAB PO SCH ×2 (09:54→16:58)
[2019-05-11] MEDS: PANTOPRAZOLE 40 MG 10ML VIAL IV SCH ×2 (09:54→21:02)
[2019-05-11] MEDS: FOLIC ACID 1 MG TAB PO SCH (09:54)
--- NOTE | 2019-05-11 16:05 | NUR ---
Visit made by the Spiritual Care Department Pastoral Visitor, Jose Martin. PV provided pastoral presence, communion, hospitality, and supportive listening. Pastoral Visitor informed pt/family of the scope of [employer] and availability. [facility] O: [phone] Pager: [phone] ([phone] number calling from) Addendum: 05/12/19 at 0921 by Nas Perea CHAP CORRECTION: Pt stated he did not want communion so pastoral visitor did not provide. [facility] O: [phone] Pager: [phone] ([phone] number calling from)
--- NOTE | 2019-05-11 16:41 | Progress Note ---
DATE: 05/11/2019 CONSULTANTS: 1. Dr. Rivas with Nephrology. 2. Dr. Fraire with Pulmonary. 3. Dr. Lockhart with GI. CHIEF COMPLAINT: Generalized weakness and shortness of breath with fluid overload. SUBJECTIVE: The patient is seen resting in bed with no acute distress. Still complaining of poor appetite. Shortness of breath is improved. He denies any chest pain, shortness of breath, fever, chills. PHYSICAL EXAMINATION: VITAL SIGNS: Temperature 97.4, pulse is 79, respirations 18, blood pressure 152/72, pulse ox is 96% on room air. GENERAL: No acute distress. HEENT: Normocephalic, atraumatic. NECK: Supple. LUNGS: With decreased breath sounds. CARDIOVASCULAR: Regular rate and rhythm. GI: Soft and nontender. NEUROLOGIC: Alert, awake, and oriented x2. MUSCULOSKELETAL: Moves all extremities. SKIN: Dry. PSYCH: Calm. LABORATORY DATA: CT abdomen and pelvis shows loculated right pleural effusion with round atelectasis of the chest and lungs. No evidence of bowel obstruction or inflammation. No mass or lymphadenopathy. Mild peritoneal edema and subcutaneous edema noted. IMPRESSION AND PLAN: 1. Dyspnea due to fluid overload and moderate to large pleural effusion, but improved status post thoracentesis removed 1200 mL. Continue with empiric antibiotics and dialysis. Pulmonary has been consulted. 2. Anemia likely of chronic disease. Status post 2 units of PRBC. Hemoglobin is stable. We will continue to monitor and transfuse as needed. 3. Low-grade fever. Blood cultures negative so far. We will continue to monitor closely. 4. Poor appetite and dysphagia. GI has been consulted. CT abdomen noted. 5. Hypertension. We will continue with home medication and hydralazine as needed. 6. End-stage renal disease. On dialysis. We will defer to Nephrology. 7. Hypokalemia. Replace. 8. Iron deficiency anemia. Continue with iron supplement. 9. High cholesterol. Continue statin. 10. Deep vein thrombosis prophylaxis. No chemical anticoagulation due to anemia. Disposition and discharge home once cleared by all consultants. Dictated by HIGINIO Dunn Belenching Naseem Sow MD MY/MODL /[id number]
[2019-05-11] MEDS: CEFTRIAXONE SOD 1 GM/NS 50 ML 50 ML IV SCH (17:10)
--- NOTE | 2019-05-11 20:21 | NUR ---
RCD PT IN BED AOX3 PT IS ALERT AND ORIENTED X3 RT FOOT 5 THE DISTAL TOE IS AMPUTATED .TELE #26 SR .LEFT FA AV FISTULA FOR DIALYSIS . ON BED BED LOW AND LOCKED CALL LIGHT IN REACH.CALL LIGHT WITH IN REACH .CONTINUE TO MONITOR
[2019-05-11] MEDS: NIFEDIPINE CR 30 MG TAB PO SCH (21:03)
[2019-05-12] VITALS (8 sets, daily range): BP systolic 108–192; BP diastolic 53–86
[2019-05-12] MEDS: HYDRALAZINE HCL 20 MG/ML VIAL IV PRN (01:54)
[2019-05-12] MEDS: AZITHROMYCIN 500MG/NS 250 ML 250 ML IV SCH (04:00)
[2019-05-12] MEDS: IRON SUCROSE 100 MG in SODIUM CHLORIDE 0.9% 100 ML 100 ML IV SCH (05:00)
[2019-05-12 05:34] LABS: BASOPHILS # (AUTO) 0.1 (0.0-0.1); BASOPHILS % 1.1 % (0.0-1.0); EOSINOPHILS # (AUTO) 0.2 (0.0-0.4); EOSINOPHILS % 2.9 % (0.0-6.0); HEMATOCRIT 30.3 % (38.2-49.6); HEMOGLOBIN 9.7 g/dL (14.0-18.0); LYMPHOCYTES # (AUTO) 1.3 (1.0-3.2); LYMPHOCYTES % 17.8 % (18.0-39.1); MEAN CORPUSCULAR HEMOGLOBIN 28.5 pg (28-32); MEAN CORPUSCULAR VOLUME 89.1 fL (81-99); MONOCYTES # (AUTO) 0.8 (0.2-0.8); MONOCYTES % 10.9 % (4.4-11.3); NEUTROPHILS # (AUTO) 5.1 (2.1-6.9); PLATELET COUNT 242 x10e3/uL (140-360); RED CELL DISTRIBUTION WIDTH 13.4 % (11.7-14.4)
--- NOTE | 2019-05-12 05:52 | NUR ---
PT DENIES PAIN AND B/P HIGH GIVEN HYDRALAZINE IV X2 .CONTINUE TO MONITOR .CALL LIGHT WITH IN REACH
[2019-05-12 05:57] LABS: ANION GAP 16.5 mmol/L (8-16); CREATININE, SERUM 5.15 mg/dL (0.72-1.25); POTASSIUM 3.5 mmol/L (3.5-5.1)
[2019-05-12] MEDS ORDERED: SODIUM CHLORIDE 0.9% 250ML 250 ML ONE (07:08)
[2019-05-12] MEDS: INSULIN LISPRO 100 UNIT/1 ML 3ML VIAL SQ SCH ×4 (07:30→21:00)
--- NOTE | 2019-05-12 07:33 | NUR ---
BEDSIDE REPORT GIVEN TO THE ONCOMING NURSE
[2019-05-12] MEDS: SEVELAMER CARBONATE 800 MG TAB PO SCH ×3 (08:00→18:11)
[2019-05-12] MEDS ORDERED: SODIUM CHLORIDE 0.9% 1000ML 2,000 ML ONE (08:49)
[2019-05-12] MEDS: PANTOPRAZOLE 40 MG 10ML VIAL IV SCH ×2 (09:00→18:11)
[2019-05-12] MEDS: CRESTOR 10MG PO SCH ×2 (09:00→21:59)
[2019-05-12] MEDS: HYDRALAZINE HCL 25 MG TAB PO SCH ×2 (09:00→18:11)
[2019-05-12] MEDS: LOSARTAN POTASSIUM 25 MG TAB PO SCH ×2 (09:00→18:11)
[2019-05-12] MEDS: METOPROLOL TARTRATE 25 MG TAB PO SCH ×2 (09:00→22:00)
[2019-05-12 09:53] LABS: BASOPHILS # (AUTO) 0.1 (0.0-0.1); BASOPHILS % 0.8 % (0.0-1.0); EOSINOPHILS # (AUTO) 0.1 (0.0-0.4); EOSINOPHILS % 1.8 % (0.0-6.0); HEMATOCRIT 27.2 % (38.2-49.6); LYMPHOCYTES # (AUTO) 1.1 (1.0-3.2); MEAN CORPUSCULAR HEMOGLOBIN 28.8 pg (28-32); MEAN CORPUSCULAR HGB CONC 33.1 g/dL (31-35); MEAN CORPUSCULAR VOLUME 87.2 fL (81-99); MONOCYTES # (AUTO) 0.7 (0.2-0.8); MONOCYTES % 10.4 % (4.4-11.3); NEUTROPHILS # (AUTO) 4.6 (2.1-6.9); NEUTROPHILS % 69.8 % (38.7-80.0); PLATELET COUNT 230 x10e3/uL (140-360); RED BLOOD COUNT 3.12 x10e6/uL (4.3-5.7); RED CELL DISTRIBUTION WIDTH 13.3 % (11.7-14.4)
[2019-05-12 10:15] LABS: ANION GAP 16.3 mmol/L (8-16); CALCIUM 7.9 mg/dL (8.4-10.2); CREATININE, SERUM 5.23 mg/dL (0.72-1.25); POTASSIUM 3.3 mmol/L (3.5-5.1)
[2019-05-12] MEDS ORDERED: ALBUMIN 25% 12.5GM 0.25 GM/ML BTL IV PRN (13:15)
[2019-05-12] MEDS ORDERED: SODIUM CHLORIDE 0.9% 1000ML 2,000 ML IV PRN (13:15)
[2019-05-12] MEDS ORDERED: SODIUM CHLORIDE 0.9% 250ML 500 ML IV PRN (13:15)
--- NOTE | 2019-05-12 13:50 | NUR ---
Dialysis nurse reported 2 liters removed.
--- NOTE | 2019-05-12 14:06 | NUR ---
Patient left the floor to have Hida scan and thoracentesis.
[2019-05-12] MEDS ORDERED: MORPHINE SULFATE 2 MG/ML SYR 1ML IV STA (15:24)
[2019-05-12] MEDS ORDERED: MORPHINE SULFATE 2 MG/ML SYR 1ML IV ONE (15:30)
--- NOTE | 2019-05-12 15:39 | NUR ---
Radiologist Ivy Arenas called and gave orders for pt to receive Morphine 2mg IVP x1 dose to use during HIDA scan.
--- NOTE | 2019-05-12 16:13 | NUR ---
[facility] is at bedside doing left thoracentesis.
--- NOTE | 2019-05-12 17:18 | Diagnostic Imaging Report ---
PROCEDURE: Ultrasound-guided thoracentesis Procedural Personnel Attending physician(s): Chandrakant Leija MD Fellow physician(s): None Resident physician(s): None Advanced practice provider(s): None Pre-procedure diagnosis: Pleural effusion Post-procedure diagnosis: Same Indication: Pleural effusion with pain or pressure symptoms Additional clinical history: None Complications: No immediate complications. IMPRESSION: Ultrasound-guided thoracentesis with drainage of 700 mL of dark warren fluid. Plan: Resume care by clinical team. PROCEDURE SUMMARY: - Limited thoracic ultrasound - Ultrasound-guided thoracentesis - Additional procedure(s): None PROCEDURE DETAILS: Pre-procedure Consent: Informed consent for the procedure including risks, benefits and alternatives was obtained and time-out was performed prior to the procedure. Preparation: The site was prepared and draped using maximal sterile barrier technique including cutaneous antisepsis. Anesthesia/sedation Level of anesthesia/sedation: No sedation Limited thoracic ultrasound Limited thoracic ultrasound was performed using a curved transducer. A safe window for thoracentesis was identified. Left hemithorax findings: Trace pleural effusion, insufficient for safe thoracentesis Right hemithorax findings: Moderate pleural effusion with multiple loculations and pleural thickening. Thoracentesis Local anesthesia was administered. The pleural space was accessed under real-time ultrasound guidance and fluid return confirmed position. The fluid was drained. The catheter was removed, and a sterile bandage was applied. Catheter placed: 5F Kwaku Post-drainage hemithorax findings: No visible pleural effusion, remnant loculations and pleural thickening. Additional Details Additional description of procedure: None Equipment details: None Specimens removed: Pleural fluid Estimated blood loss (mL): Less than 10 Standardized report: [email or web address]_v3 Attestation Signer name: Chandrakant Leija MD I attest that I was present for the entire procedure. I reviewed the stored images and agree with the report as written. Signed by: Chandrakant Leija MD on 05/12/2019 5:15 PM
[2019-05-12] MEDS: CEFTRIAXONE SOD 1 GM/NS 50 ML 50 ML IV SCH (18:11)
[2019-05-12] MEDS: FUROSEMIDE 40 MG TAB PO SCH (18:11)
[2019-05-12] MEDS: CYANOCOBALAMIN INJ 1,000 MCG/ML VIAL IM SCH (18:11)
[2019-05-12] MEDS: FOLIC ACID 1 MG TAB PO SCH (18:11)
--- NOTE | 2019-05-12 18:39 | Diagnostic Imaging Report ---
EXAMINATION: CHEST SINGLE (PORTABLE) INDICATION: Anemia. Postthoracentesis ^s/p thoracentesis COMPARISON: CT scan May 11, 2019 FINDINGS: TUBES and LINES: None. LUNGS: Moderate size right pleural effusion with associated atelectasis. Left lung clear. PLEURA: No pneumothorax. HEART AND MEDIASTINUM: The cardiomediastinal silhouette is unremarkable. BONES AND SOFT TISSUES: No acute osseous lesion. Soft tissues are unremarkable. UPPER ABDOMEN: No free air under the diaphragm. IMPRESSION: Moderate size right pleural effusion with associated atelectasis. Left lung clear Signed by: Dr. Oscar Silva M.D. on 05/12/2019 6:33 PM
--- NOTE | 2019-05-12 19:48 | NUR ---
Verified that the lab still has fluid from thoracentesis from 05/09/2019. Dr Fraire wants cytology done on this fluid. Notified car shifter nurse. hourly shift to fill out appropriate order and take to lab
--- NOTE | 2019-05-12 20:40 | NUR ---
SPOKE TO SOUNDSCRIBER MECHANIC ADALBERTO. FLUID FROM THORACENTESIS ON 05/09/2019 WAS SENT OUT FOR CYTOLOGY. AWAITING FOR RESULT TO COME BACK
[2019-05-12] MEDS: NIFEDIPINE CR 30 MG TAB PO SCH (22:00)
--- NOTE | 2019-05-12 23:57 | Progress Note ---
DATE: 05/12/2019 A 58-year-old male. CONSULTANTS: 1. Dr. Rivas with Nephrology. 2. Dr. Lockhart with GI. CHIEF COMPLAINT: Anemia and shortness of breath due to fluid overload. SUBJECTIVE: The patient with improved shortness of breath and edema. Going for HIDA scan and thoracentesis. No chest pain, shortness of breath, fever, or chills. OBJECTIVE: GENERAL: No acute distress. HEENT: Normocephalic, atraumatic. LUNGS: Decreased breath sounds. CARDIOVASCULAR: Regular rate and rhythm. ABDOMEN: Soft and nontender. NEURO: Alert, awake, oriented x3. MUSCULOSKELETAL: Moves all extremities. No edema noted. PSYCH: Calm. SKIN: Dry and intact. LABORATORY DATA: Sodium 135, potassium 3.3, creatinine 5.23. IMAGING: HIDA scan pending. IMPRESSION: 1. Fluid overload with pleural effusion. Status post thoracentesis removed 1200 mL. Going for another thoracentesis to the right side. 2. Anemia, status post transfusion of 2 units of PRBC with dialysis. Hemoglobin is stable. We will continue to monitor. 3. End-stage renal disease, on dialysis. Nephrology on case. 4. Hypertension. Resume home medication. 5. High cholesterol. Resume statin. 6. Abdominal pain with poor p.o. intake. CT abdomen noted. GI on the case. HIDA scan pending. 7. Hypokalemia and hyponatremia. We will replace. 8. Deep venous thrombosis prophylaxis. SCDs. No anticoagulation due to anemia. Dictated by HIGINIO Dunn Heather Sow MD MY/MODL /[id number]
[2019-05-13] VITALS (8 sets, daily range): BP systolic 144–190; BP diastolic 66–84
[2019-05-13] MEDS: HYDRALAZINE HCL 20 MG/ML VIAL IV PRN (00:32)
[2019-05-13] MEDS: AZITHROMYCIN 500MG/NS 250 ML 250 ML IV SCH (04:34)
[2019-05-13] MEDS: IRON SUCROSE 100 MG in SODIUM CHLORIDE 0.9% 100 ML 100 ML IV SCH (06:15)
[2019-05-13] MEDS: INSULIN LISPRO 100 UNIT/1 ML 3ML VIAL SQ SCH ×4 (07:30→20:58)
[2019-05-13] MEDS: CRESTOR 10MG PO SCH ×2 (09:06→20:37)
[2019-05-13] MEDS: CYANOCOBALAMIN INJ 1,000 MCG/ML VIAL IM SCH (09:06)
[2019-05-13] MEDS: SEVELAMER CARBONATE 800 MG TAB PO SCH ×3 (09:06→16:53)
[2019-05-13] MEDS: FUROSEMIDE 40 MG TAB PO SCH (09:06)
[2019-05-13] MEDS: PANTOPRAZOLE 40 MG 10ML VIAL IV SCH ×2 (09:06→20:37)
[2019-05-13] MEDS: SUCRALFATE 1 GM TAB PO SCH ×4 (09:07→20:37)
[2019-05-13] MEDS: FOLIC ACID 1 MG TAB PO SCH (09:07)
[2019-05-13] MEDS: LOSARTAN POTASSIUM 25 MG TAB PO SCH ×2 (09:19→16:53)
[2019-05-13] MEDS: METOPROLOL TARTRATE 25 MG TAB PO SCH ×2 (09:19→20:38)
[2019-05-13] MEDS: HYDRALAZINE HCL 25 MG TAB PO SCH ×2 (09:19→16:53)
--- NOTE | 2019-05-13 09:26 | Diagnostic Imaging Report ---
EXAM: CT Chest WITHOUT intravenous contrast 05/12/2019 7:42 PM INDICATION: Common gated pleural effusion COMPARISON: Chest radiograph 05/12/2019, thoracentesis 05/12/2019 TECHNIQUE: Chest was scanned utilizing a multidetector helical scanner from the lung apex through the level of the adrenal glands without administration of IV contrast. Coronal and sagittal reformations were obtained. Routine protocol was performed. IV CONTRAST: None RADIATION DOSE: Total DLP: 446.2 mGy*cm. Dose modulation, iterative reconstruction, and/or weight based adjustment of the mA/kV was utilized to reduce the radiation dose to as low as reasonably achievable. COMPLICATIONS: None FINDINGS: LINES/ TUBES: None. LUNGS AND AIRWAYS: The central airways are patent. Mild biapical pleural parenchymal thickening/scarring. Right middle lobe, right lower lobe, and posterior left lower lobe subsegmental atelectasis. Ovoid consolidation at the posterior right lower lobe adjacent to the thickened right pleura more likely represents round atelectasis than focal pneumonia. No suspicious pulmonary nodule. PLEURA: Partially loculated moderate right pleural effusion with associated right pleural thickening. Scattered small foci of air within the pleural cavity may be postprocedural related to recent thoracentesis. However, some of this air is not antidependent, thus suggesting the complex and loculated nature of the pleural effusion. Trace simple appearing left pleural effusion without significant associated pleural thickening. HEART AND MEDIASTINUM: No supraclavicular, mediastinal, or hilar lymphadenopathy. No axillary, subpectoral, or internal mammary lymphadenopathy. Mild multichamber cardiomegaly. No pericardial effusion. Scattered atherosclerotic calcifications involve the coronary arteries, aorta, and proximal great vessels. There is dilation of the entirety of the esophagus which is filled with ingested material and contains an air-fluid level at the level of the aortic arch. UPPER ABDOMEN: Limited non-contrast views of the upper abdomen show no abnormality within the partially visualized liver, spleen, pancreas, or left adrenal and upper kidney. BONES: No acute osseous injury. No suspicious lytic or blastic lesions. SOFT TISSUES: Unremarkable. IMPRESSION: Partially loculated moderate right pleural effusion with associated right pleural thickening. Small scattered foci of air may be postprocedural. Trace simple appearing left pleural effusion without significant associated pleural thickening. Consolidation at the posterior right lower lobe adjacent to the abnormal pleura more likely represents round atelectasis than focal pneumonia. Dilation of the entire esophagus which is filled with ingested material distally and contains an air-fluid level more proximally at the level of the aortic arch. This may predispose the patient for aspiration. Signed by: Chandrakant Leija MD on 05/13/2019 9:23 AM
--- NOTE | 2019-05-13 14:06 | Diagnostic Imaging Report ---
EXAM: HIDA Scan with Morphine Challenge INDICATION: Abdominal pain Report: Following the administration of 5.4 mCi of Tc-99m mebrofenin, dynamic images of the abdomen in the anterior projection were obtained through 60 minutes. Morphine sulfate 2 mg was administered intravenously and additional images were obtained through 30 minutes. Perfusion of the liver is normal. Extraction of tracer from the blood pool by the liver parenchyma is normal. Tracer appears promptly with in the biliary tract. Tracer is seen in the small bowel by 18 minutes post injection of the tracer. The gallbladder does not fill during the initial 60 minutes of imaging but does fill promptly following administration of morphine. Impression: 1. Filling of the gallbladder excludes acute cystic duct obstruction/acute cholecystitis. 2. Delayed filling of the gallbladder beyond 60 minutes post injection of the tracer may indicate chronic cholecystitis. Signed by: Dr. Ivy Arenas M.D. on 05/13/2019 2:03 PM
[2019-05-13] MEDS: CEFTRIAXONE SOD 1 GM/NS 50 ML 50 ML IV SCH (17:15)
--- NOTE | 2019-05-13 17:21 | Progress Note ---
DATE: 05/13/2019 A 58-year-old male. CONSULTANTS: 1. Dr. Rivas with Nephrology. 2. Dr. Fraire with Pulmonary. 3. Dr. Lockhart with GI. 4. Dr. Freeman with CV surgeon. CHIEF COMPLAINT: Generalized weakness and shortness of breath with fluid overload. SUBJECTIVE: The patient is seen in bed with no acute distress. Reports feeling better overall, but appetite remains poor. He denies any chest pain, shortness of breath, or fever or chills. PHYSICAL EXAMINATION: VITAL SIGNS: Temperature 99.1, pulse is 72, respirations 15, blood pressure 150/73, pulse ox 98% on room air. GENERAL: No acute distress. HEENT: Normocephalic, atraumatic. NECK: Supple. LUNGS: With decreased breath sounds. CARDIOVASCULAR: Regular rate and rhythm. GI: Soft and nontender. NEUROLOGIC: Alert, awake, and oriented x3. MUSCULOSKELETAL: Moves all extremities. SKIN: Dry. PSYCH: Calm. IMAGING: HIDA scan showed filling of the gallbladder, acute cystic duct obstruction/cholecystitis, delayed injection time which indicate chronic cholecystitis. Chest x-ray shows moderate-size right pleural effusion with associated atelectasis. CT chest shows partial loculated moderate right pleural effusion with associated pleural thickening, consolidation at the posterior right lower lobe adjacent to the abnormal pleural more likely round atelectasis and focal pneumonia. IMPRESSION AND PLAN: 1. Dyspnea due to fluid overload and pleural effusion. Thoracentesis on the left side removed, 1200 mL. Still with right pleural effusion present per imaging. Continue empiric antibiotics and dialysis. Pulmonary has been consulted. CT noted. CV surgeon consulted for VATS. 2. Anemia of likely chronic diseases. Status post 2 units of PRBCs. Hemoglobin is stable. We will continue to monitor. 3. Low-grade fever. Blood cultures negative so far. We will continue to monitor closely on antibiotics. 4. Poor appetite and dysphagia. HIDA scan shows chronic cholecystitis. GI has been consulted. 5. Hypertension. We will continue on home medication and hydralazine as needed. 6. End-stage renal disease. On dialysis. We will defer to Nephrology. 7. Hypokalemia. Replace. 8. Iron deficiency anemia. Continue iron supplements. 9. High cholesterol. Continue on statin. 10. Deep venous thrombosis prophylaxis. No chemical anticoagulation due to anemia. PLAN: Plan is to continue with current medication, CV surgeon has been consulted for possible VATS. Dictated by HIGINIO Dunn MD RENEE Trevizo/MODL /[id number]
[2019-05-13] MEDS: NIFEDIPINE CR 30 MG TAB PO SCH (20:38)
[2019-05-13] MEDS ORDERED: METOCLOPRAMIDE HCL 10 MG/2ML VIAL IV ONE (22:15)
[2019-05-14] VITALS (8 sets, daily range): BP systolic 119–184; BP diastolic 56–90
--- NOTE | 2019-05-14 03:53 | Consultation ---
DATE OF CONSULTATION: 05/13/2019 REASON FOR CONSULT: Loculated right pleural effusion, end-stage renal failure; requested by Dr. Gerson Rivas. C Java Developer is Dr. Naseem Sow. Feather Renovator is Dr. Faheem Fraire. HISTORY: I saw and evaluated the patient on May 13, 2019. He is a 58-year-old man with end-stage renal failure on dialysis, who was admitted with worsening dyspnea, failure to thrive and poor appetite. He has been on dialysis for many years. Evaluation has revealed a substantial loculated right pleural effusion. Thoracentesis was performed, but pleural effusion persists. His subjective malaise continues. He has been tolerating dialysis. Surgical drainage of the pleural effusion is now recommended. No fevers or chills. No clear history of any myocardial infarction or stroke. PAST MEDICAL HISTORY: Positive diabetes, hypertension, history of CHF, end-stage renal failure, dialysis, anemia. MEDICATIONS: Include: 1. Metoprolol. 2. Nifedipine. 3. Losartan. 4. Hydralazine. 5. PhosLo. 6. Lasix. SOCIAL HISTORY: Negative for smoking or alcohol. FAMILY HISTORY: Positive for diabetes. Negative for early coronary artery disease. ALLERGIES: NONE KNOWN. REVIEW OF SYSTEMS: GENERAL: Positive for fatigue and malaise. NEUROLOGIC: Negative for focal weakness in extremities or dysarthria. HEENT: Negative for decreased vision or decreased hearing. CARDIAC: Negative for chest pain, palpitations. PULMONARY: Positive for shortness of breath and wheezing. Positive for productive cough as above. GI: Negative for change in bowel habits, diarrhea, or constipation. : Negative for hematuria or dysuria. ENDOCRINE: Negative for polyuria, polydipsia. VASCULAR: Negative for claudication. SKIN: Negative for rashes or itching. HEMATOLOGIC: Negative for clotting or bleeding. Positive for anemia. INFECTIOUS: Negative for fevers or chills. PSYCHIATRIC: Negative for depression. PHYSICAL EXAMINATION: GENERAL: Thin man sitting up in bed, in no apparent distress. VITAL SIGNS: Blood pressure 130/65, pulse 75 and regular, respirations 16 and unlabored, temperature 99.1. NECK: Supple, nontender. No JVD. CARDIAC: Shows a regular rate and rhythm. There is normal S1, S2. There is no S3, S4, rub, or murmur. LUNGS: Decreased breath sounds on the right without rhonchi. The left lung is clear to auscultation and percussion. ABDOMEN: Scaphoid, benign. Good bowel sounds. No hepatosplenomegaly. BACK: No CVA tenderness. No muscular spasm. EXTREMITIES: No cyanosis, clubbing or edema. VASCULAR: Carotids, radials, femorals 2+/2+ bilaterally. No carotid bruits. SKIN: No rashes or nonhealing ulcers. MUSCULOSKELETAL: Full range of motion at all joints. No joint swelling. NEUROLOGIC: Cranial nerves II through XII intact. Sensation intact to light touch and pinprick bilaterally. Strength 5/5 in all extremities. LYMPHATICS: Negative for cervical, clavicular, femoral adenopathy. LABORATORY: CT scan and chest x-ray are reviewed. Both show a loculated right pleural effusion, which is mostly at the right base, but there is also some loculated fluid at the apex of the right lung. Sodium was 135, potassium 3.3, BUN 33, creatinine 5.23. INR is 0.92 with PT 12.9 and PTT 43.9. White count 6.52 with hemoglobin 9.0, hematocrit 27.2, platelet count 230,000. IMPRESSION: Recalcitrant right pleural effusion in a patient with end-stage renal failure and a history of heart failure. I agree with surgical drainage. Thoracoscopy or open drainage will be arranged. I described the operation and its risks including , bleeding, infection, heart attack, stroke, pneumonia, prolonged ICU stay, mechanical ventilation, persistent chest tube drainage, recurrence of the infection, amputation, etc. with the patient. He stated that he understood, no further question, wanted to proceed. I will discuss timing of the surgery with the patient's other physicians. Thank you very much for asking me to see this nice man. MD MELVIN Estrada/BRIT /[id number]
[2019-05-14] MEDS: AZITHROMYCIN 500MG/NS 250 ML 250 ML IV SCH (03:55)
[2019-05-14] MEDS: IRON SUCROSE 100 MG in SODIUM CHLORIDE 0.9% 100 ML 100 ML IV SCH (05:20)
[2019-05-14] MEDS: METOCLOPRAMIDE HCL 10 MG/2ML VIAL IV SCH ×3 (05:20→18:05)
[2019-05-14] MEDS: SEVELAMER CARBONATE 800 MG TAB PO SCH ×3 (07:27→16:44)
[2019-05-14] MEDS: SUCRALFATE 1 GM TAB PO SCH ×4 (07:27→21:00)
[2019-05-14] MEDS: INSULIN LISPRO 100 UNIT/1 ML 3ML VIAL SQ SCH ×4 (07:30→21:00)
[2019-05-14] MEDS: PANTOPRAZOLE 40 MG 10ML VIAL IV SCH ×2 (09:26→21:00)
[2019-05-14] MEDS: LOSARTAN POTASSIUM 25 MG TAB PO SCH ×2 (09:26→16:44)
[2019-05-14] MEDS: CYANOCOBALAMIN INJ 1,000 MCG/ML VIAL IM SCH (09:26)
[2019-05-14] MEDS: HYDRALAZINE HCL 25 MG TAB PO SCH ×2 (09:26→16:44)
[2019-05-14] MEDS: FUROSEMIDE 40 MG TAB PO SCH (09:27)
[2019-05-14] MEDS: METOPROLOL TARTRATE 25 MG TAB PO SCH ×2 (09:27→21:00)
[2019-05-14] MEDS: FOLIC ACID 1 MG TAB PO SCH (09:27)
[2019-05-14] MEDS: CRESTOR 10MG PO SCH ×2 (09:27→21:00)
--- NOTE | 2019-05-14 12:34 | NUR ---
Nutrition Intervention Note RD Recommendation(s) for Physician: -Continue current diet per MD. -Nepro supplement 6 x per day per MD. Plan of Care: RD following, monitoring for tolerance and adequacy. Nepro 6 x per day Nutrition reason for involvement: follow up/consult RD Assessment 05/14: Follow up/consult: Pt was seen finishing his breakfast, he consumed 100% of his breakfast and stated that he could even eat some more. Received consult from MD, MD wanted the pt to consume Nepro supplement twice at each meal, this order was placed within [employer]. Pt denied N/V/C/D/ chewing or swallowing issues at this time. Thoracoscopy or open drainage will be arranged per MD. Will continue to monitor. (05/09/2019) Chart reviewed. Labs and meds reviewed. Pt is a 58 year old male admitted with anemia, ESRD, pleural effusion, and pneumonia. Pt is currently NPO. Pt was unable to quantify PO intake amount prior to admission at time of visit. Pt mentioned he had lost weight and used to weigh 150 lbs 2 months ago. Pt currently has a weight of 139 lbs in chart. If accurate, this would be a 7% wt loss in 2 months significant weight loss. No N/V or chewing/swallowing issues noted. Recommend Nepro for added nutrition when diet advances. Will continue to monitor. Principal Problems/Diagnoses: anemia, ESRD, pleural effusion, and pneumonia PMH: HTN, high cholesterol, ESRD, anemia of chronic disease GI: flat, soft, non-tender Skin: no pressure ulcers noted Labs: 05/14: POC GM: 127 (05/09/19) K 2.9, Creat 3.47, iron 35 Meds: (05/09/19) vitamin b12, IV iron, azithromycin, renvela, insulin, losartan, metroprolol, lasix, folic acid, zofran Ht: 72 in (per pt) Wt:139 lb 05/14: 137 lbs BMI: 18.8 kg/m2 IBW: 178 lb Malnutrition Evaluation (05/09/2019) The patient does not meet criteria for a specified degree of malnutrition at this time. Will re-evaluate at follow-up as appropriate. Energy intake: Unknown Weight loss: 7% weight loss in 2 months Fat loss: no loss identified Muscle loss: Moderate lower extremities Supporting Evidence: Fluid accumulation: no accumulation identified per MD note Functional Status: unable to evaluate Nutrition Prescription (Diet Order): NPO Estimated Nutritional Needs: 5531-1689 calories/day (30-35 kcal/kg CBW) 76-95 g protein/day (1.2-1.5 g pro/kg CBW) Diet Adequacy: Renal diet Tolerance: tolerating diet Diet Education Needs Assessment: Diet education not indicated, patient on temporary/transition diet. Nutrition Care Level: moderate Nutrition Diagnosis: Unintended weight loss related to predicted h/o inadequate energy intake related to 7% weight loss in 2 months. Goal: Patient will meet 75-100% of estimated needs by follow up Progress: progressing Interventions: -mineral (Phos, K, Na) modified diet, Commercial beverage Monitoring/Evaluation: -Total energy intake, Total protein intake, Modified diet, Liquid supplement, Weight change Signed: Lilliam Hess RD, LD
[2019-05-14] MEDS: CEFTRIAXONE SOD 1 GM/NS 50 ML 50 ML IV SCH (18:06)
--- NOTE | 2019-05-14 18:11 | Progress Note ---
DATE: 05/14/2019 CONSULTANTS: 1. Dr. Rivas with Nephrology. 2. Dr. Fraire with Pulmonary. 3. Dr. Lockhart with GI. 4. Dr. Freeman with CV surgeon. CHIEF COMPLAINT: Generalized weakness and shortness of breath with fluid overload. SUBJECTIVE: Resting in bed with no acute distress. Reports still with poor appetite, we will change diet to GI soft as he is unable to chew on the meat. He denies any chest pain, shortness of breath, fever, or chills. PHYSICAL EXAMINATION: VITAL SIGNS: Temperature 98.6, pulse is 59, blood pressure 119/56, pulse ox 98% on room air. GENERAL: No acute distress. HEENT: Normocephalic, atraumatic. NECK: Supple. LUNGS: With decreased breath sounds. CARDIOVASCULAR: Regular rate and rhythm. GI: Soft and nontender. NEUROLOGIC: Alert, awake, and oriented x3. MUSCULOSKELETAL: Moves all extremities. SKIN: Dry. IMPRESSION AND PLAN: 1. Dyspnea due to fluid overload and pleural effusion. Status post thoracentesis in the left side, removed 1200 mL. Pulmonary has been consulted and CT noted. CV surgeon consulted for VATS, possibly tomorrow. 2. Anemia of chronic diseases. Status post 2 units of PRBCs. Hemoglobin is stable. We will continue to monitor. 3. Poor appetite and dysphagia. HIDA scan shows chronic cholecystitis. GI has been consulted. Reglan is started. 4. Hypertension. We will continue on home medications and add hydralazine as needed. 5. End-stage renal disease. On dialysis Sunday, Sunday, Sunday. Nephrology on the case. 6. Hypokalemia. Replace. 7. Iron deficiency anemia. Continue with Venofer. 8. High cholesterol. On statin. 9. Deep vein thrombosis prophylaxis. No chemical anticoagulation due to anemia. Plan is for a VATS, possibly tomorrow. Dictated by HIGINIO Dunn Heather Sow MD MY/MODL /[id number] Seen and examined on 05/14/2019. Agree with the findings and plan as documented by HIGINIO Moise. GILDA
[2019-05-14] MEDS: NIFEDIPINE CR 30 MG TAB PO SCH (21:00)
[2019-05-15] VITALS (8 sets, daily range): BP systolic 151–188; BP diastolic 78–93
[2019-05-15] MEDS: AZITHROMYCIN 500MG/NS 250 ML 250 ML IV SCH (04:12)
[2019-05-15] MEDS: ACETAMINOPHEN 325 MG TAB PO PRN (04:42)
[2019-05-15 05:42] LABS: BASOPHILS # (AUTO) 0.1 (0.0-0.1); BASOPHILS % 1.3 % (0.0-1.0); EOSINOPHILS # (AUTO) 0.3 (0.0-0.4); EOSINOPHILS % 5.4 % (0.0-6.0); HEMOGLOBIN 9.1 g/dL (14.0-18.0); LYMPHOCYTES # (AUTO) 1.2 (1.0-3.2); LYMPHOCYTES % 25.7 % (18.0-39.1); MEAN CORPUSCULAR HEMOGLOBIN 28.5 pg (28-32); MEAN CORPUSCULAR HGB CONC 32.5 g/dL (31-35); MEAN CORPUSCULAR VOLUME 87.8 fL (81-99); MONOCYTES # (AUTO) 0.6 (0.2-0.8); MONOCYTES % 13.2 % (4.4-11.3); NEUTROPHILS # (AUTO) 2.5 (2.1-6.9); NEUTROPHILS % 54.2 % (38.7-80.0); PLATELET COUNT 220 x10e3/uL (140-360); RED BLOOD COUNT 3.19 x10e6/uL (4.3-5.7); RED CELL DISTRIBUTION WIDTH 13.1 % (11.7-14.4)
[2019-05-15 05:48] LABS: INR 0.92; PROTHROMBIN TIME 12.8 seconds (11.9-14.5)
[2019-05-15 05:49] LABS: PARTIAL THROMBOPLASTIN TIME 41.9 seconds (23.8-35.5)
--- NOTE | 2019-05-15 05:52 | Diagnostic Imaging Report ---
Examination: Single AP view of the chest. COMPARISON: CT chest 05/12/2019 INDICATION: Pleural effusion IMPRESSION: 1. Lines and Tubes: None 2. Lungs are well-inflated. No significant interval change in right-sided pleural effusion which is partly loculated, as well as right lower lobe consolidation likely representing round atelectasis or pneumonia. Left lung is grossly clear. 3. Cardiomediastinal silhouette is normal. Pulmonary vasculature is normal. 4. No acute bony abnormalities. Signed by: Dr. Tod Prasad M.D. on 05/15/2019 5:50 AM
[2019-05-15 05:53] LABS: CALCIUM 8.3 mg/dL (8.4-10.2); CREATININE, SERUM 3.6 mg/dL (0.72-1.25)
[2019-05-15] MEDS: METOCLOPRAMIDE HCL 10 MG/2ML VIAL IV SCH ×4 (06:20→21:10)
[2019-05-15] MEDS: IRON SUCROSE 100 MG in SODIUM CHLORIDE 0.9% 100 ML 100 ML IV SCH (06:20)
[2019-05-15] MEDS: SUCRALFATE 1 GM TAB PO SCH ×4 (07:19→21:00)
[2019-05-15] MEDS: SEVELAMER CARBONATE 800 MG TAB PO SCH ×3 (07:20→16:26)
[2019-05-15] MEDS: INSULIN LISPRO 100 UNIT/1 ML 3ML VIAL SQ SCH ×4 (07:30→21:00)
[2019-05-15] MEDS: CYANOCOBALAMIN INJ 1,000 MCG/ML VIAL IM SCH (08:30)
[2019-05-15] MEDS: PANTOPRAZOLE 40 MG 10ML VIAL IV SCH ×2 (08:30→21:10)
[2019-05-15] MEDS: HYDRALAZINE HCL 25 MG TAB PO SCH ×2 (08:31→16:25)
[2019-05-15] MEDS: LOSARTAN POTASSIUM 25 MG TAB PO SCH ×2 (08:31→16:25)
[2019-05-15] MEDS: METOPROLOL TARTRATE 25 MG TAB PO SCH ×2 (08:31→21:00)
[2019-05-15] MEDS: CRESTOR 10MG PO SCH ×2 (08:31→21:00)
[2019-05-15] MEDS: FUROSEMIDE 40 MG TAB PO SCH (08:31)
[2019-05-15] MEDS: FOLIC ACID 1 MG TAB PO SCH (08:31)
[2019-05-15] MEDS ORDERED: HEPARIN SOD/SOD CHLORIDE 1,000 ML ONE (10:23)
--- NOTE | 2019-05-15 14:00 | NUR ---
patient to OR at this time. shower provided prior to departure.
[2019-05-15] MEDS ORDERED: CEFTRIAXONE SOD 1 GM VIAL ONE (14:10)
[2019-05-15] MEDS ORDERED: DEXAMETHASONE SOD PHOS INJ 4 MG/ML VIAL ONE (14:10)
[2019-05-15] MEDS ORDERED: ROCURONIUM BROMIDE 10 MG/ML 5ML VIAL ONE (14:10)
[2019-05-15] MEDS ORDERED: PROPOFOL IV EMULSION 10 MG/ML 20 ML VIAL ONE (14:10)
[2019-05-15] MEDS ORDERED: ONDANSETRON HCL INJ 2MG/ML 2ML 2 MG/ML VIAL ONE (14:10)
[2019-05-15] MEDS ORDERED: NEOSTIGMINE 1 MG/ML 10ML VIAL ONE (14:10)
[2019-05-15] MEDS ORDERED: SEVOFLURANE INHAL SOLN 250 ML PEN BTL ONE (14:10)
[2019-05-15] MEDS ORDERED: GLYCOPYRROLATE INJ 0.2 MG/ML VIAL ONE (14:10)
[2019-05-15] MEDS ORDERED: LIDOCAINE HCL 2% LOCAL INJ 5 ML SDV VIAL INJ ONE (14:10)
--- NOTE | 2019-05-15 14:41 | Progress Note ---
DATE: 05/15/2019 CONSULTANTS: 1. Dr. Rivas with Nephrology. 2. Dr. Fraire with Pulmonary. 3. Dr. Lockhart with GI. 4. Dr. Freeman with CV surgeon. CHIEF COMPLAINT: Generalized weakness and shortness of breath due to fluid overload. SUBJECTIVE: Resting in bed with no acute distress. He denies any chest pain, shortness of breath, fever, chills, or cough. He is n.p.o. for VATS later today. PHYSICAL EXAMINATION: VITAL SIGNS: Temperature 96.7, pulse is 56, respirations 20, blood pressure 187/93, and pulse ox is 99% on room air. GENERAL: No acute distress. HEENT: Normocephalic and atraumatic. NECK: Supple. LUNGS: With decreased breath sounds. CARDIOVASCULAR: Regular rate and rhythm. GI: Soft and nontender. NEUROLOGIC: Alert, awake, and oriented x3. MUSCULOSKELETAL: Moves all extremities. SKIN: Dry. LABORATORY DATA: WBC 4.63, hemoglobin is 9.1, hematocrit 28.0, and platelets 220. Sodium 138, potassium 4.0, BUN is 15, creatinine 3.60, estimated GFR is 17, and calcium is 8.3. PT 12.8, INR 0.92, and APTT 41.9. IMPRESSION: 1. Dyspnea due to fluid overload and pleural effusion. Status post thoracentesis in the left side removing 1200 mL. Pulmonary and CV surgeon consulted for VATS later today. 2. Anemia of chronic diseases. Status post 2 units of PRBC. Hemoglobin is stable at 9. We will continue to monitor closely. 3. Hypertension. We will continue with home medication and add hydralazine IV as needed. 4. End-stage renal disease. On dialysis Sunday, Sunday, Fridays per Nephrology. 5. Hypokalemia, replaced. 6. Iron deficiency anemia. Continue with supplements. 7. High cholesterol. On statin. 8. Poor appetite and dysphagia. HIDA scan showed chronic cholecystitis. GI has been consulted. Reglan started. 9. Deep vein thrombosis prophylaxis. No chemical anticoagulation due to anemia and surgical procedures. 10. Right foot callus. We will consult Podiatry for evaluation. Dictated by HIGINIO Dunn Yiching MD RENEE Tam/BRIT /[id number]
[2019-05-15] MEDS ORDERED: BACITRACIN 50,000 UNIT VIAL ONE (15:07)
[2019-05-15] MEDS ORDERED: BUPIVACAINE HCL 0.5% INJ 30 ML VIAL INJ ONE (15:07)
[2019-05-15] MEDS ORDERED: FENTANYL CITRATE/PF 100MCG/2 ML INJ ONE ×2 (16:21→19:39)
[2019-05-15] MEDS: CEFTRIAXONE SOD 1 GM/NS 50 ML 50 ML IV SCH (18:15)
--- NOTE | 2019-05-15 19:49 | Diagnostic Imaging Report ---
EXAMINATION: CHEST SINGLE (PORTABLE) INDICATION: Shortness of breath ^CHEST TUBE AND CENTRAL LINE PLACEMENT ^[id number] ^[id number] ^Y COMPARISON: 05/15/2019 at 5:26 AM FINDINGS: TUBES and LINES: Right chest tube with distal tip over the right upper central thorax. Right-sided internal jugular central venous catheter with distal tip over the right atrial/vena cava junction. LUNGS: Likely scarring/atelectasis at the lung bases. PLEURA: Resolution of the previously seen right pleural effusion. There is a small right pneumothorax. Small left pleural effusion. HEART AND MEDIASTINUM: The cardiomediastinal silhouette is unremarkable. BONES AND SOFT TISSUES: No acute osseous lesion. Soft tissues are unremarkable. UPPER ABDOMEN: No free air under the diaphragm. IMPRESSION: Resolution of the previously seen right pleural effusion. There is a small right pneumothorax. Small left pleural effusion. Right chest tube with distal tip over the right upper central thorax. Right-sided internal jugular central venous catheter with distal tip over the right atrial/vena cava junction. Signed by: Dr. Oscar Silva M.D. on 05/15/2019 7:48 PM
[2019-05-15] MEDS ORDERED: DEXTROSE 5%/0.45% SOD CHL 1,000 ML IV ONE (20:15)
--- NOTE | 2019-05-15 20:15 | NUR ---
Report received from Pablo, INFORMATION TECHNOLOGY ASSISTANT. Pt resting at this time, no complaints. Verified with INFORMATION TECHNOLOGY ASSISTANT that chest tube had continuous bubbling, RN stated yes and that Dr. Freeman was aware.
--- NOTE | 2019-05-15 20:15 | NUR ---
Chest tube output documented was present upon arrival to ICU. Addendum: 05/16/19 at 0250 by Mino Jett RN Amended: Links added.
[2019-05-15] MEDS: HYDRALAZINE HCL 20 MG/ML VIAL IV PRN (20:55)
[2019-05-15] MEDS: NIFEDIPINE CR 30 MG TAB PO SCH (21:00)
[2019-05-15] MEDS: DOCUSATE SODIUM 100 MG CAP PO SCH (21:00)
[2019-05-15 21:06] LABS: BASOPHILS # (AUTO) 0.1 (0.0-0.1); EOSINOPHILS # (AUTO) 0.1 (0.0-0.4); EOSINOPHILS % 2.1 % (0.0-6.0); HEMATOCRIT 27.9 % (38.2-49.6); HEMOGLOBIN 9.1 g/dL (14.0-18.0); LYMPHOCYTES # (AUTO) 0.7 (1.0-3.2); LYMPHOCYTES % 13.5 % (18.0-39.1); MEAN CORPUSCULAR HEMOGLOBIN 28.7 pg (28-32); MEAN CORPUSCULAR HGB CONC 32.6 g/dL (31-35); MONOCYTES # (AUTO) 0.3 (0.2-0.8); MONOCYTES % 5.4 % (4.4-11.3); NEUTROPHILS # (AUTO) 4.1 (2.1-6.9); NEUTROPHILS % 77.8 % (38.7-80.0); PLATELET COUNT 222 x10e3/uL (140-360); RED BLOOD COUNT 3.17 x10e6/uL (4.3-5.7); RED CELL DISTRIBUTION WIDTH 13.2 % (11.7-14.4)
[2019-05-15 21:19] LABS: BODY FLUID APPEARANCE CLOUDY; BODY FLUID COLOR RED; BODY FLUID TYPE PLEURAL
[2019-05-15 21:27] LABS: CALCIUM 7.9 mg/dL (8.4-10.2); CREATININE, SERUM 4.33 mg/dL (0.72-1.25)
[2019-05-15] MEDS: MORPHINE SULFATE 2 MG/ML SYR 1ML IV PRN (21:50)
[2019-05-15 21:56] LABS: RBC,BODY FLUID 24420 cells/uL; WBC,BODY FLUID 385 cells/uL
[2019-05-15 22:04] LABS: LYMPHOCYTES,BODY FLUID 63 %; MONO/MACROPHG,BODY FLUID 35 %; NEUTROPHILS,BODY FLUID 1 %
[2019-05-15 22:05] LABS: OTHER CELLS,BODY FLUID 1 %
[2019-05-16] VITALS (21 sets, daily range): BP systolic 116–168; BP diastolic 60–81
[2019-05-16] MEDS: METOCLOPRAMIDE HCL 10 MG/2ML VIAL IV SCH ×4 (00:20→18:33)
[2019-05-16] MEDS: MORPHINE SULFATE 2 MG/ML SYR 1ML IV PRN ×4 (00:45→18:30)
--- NOTE | 2019-05-16 01:19 | Operative Report ---
DATE OF PROCEDURE: 05/15/2019 SURGEON: Kameron Freeman MD PREOPERATIVE DIAGNOSES: End-stage renal failure, loculated right pleural effusion. POSTOPERATIVE DIAGNOSES: End-stage renal failure, loculated right pleural effusion. OPERATIVE PROCEDURES: 1. Flexible bronchoscopy with cultures. 2. Right thoracoscopy. 3. Thoracoscopic drainage of loculated right pleural effusion. 4. Right thoracotomy. 5. Full decortication of right lung. 6. Right pleural biopsy. 7. Multilevel intercostal nerve block. BATTERY CONTAINER INSPECTOR: Nursing staff. ANESTHESIA: General endotracheal with a double-lumen endotracheal tube. INDICATIONS: This is a 58-year-old man, who has end-stage renal failure and was admitted with dyspnea. He has a large loculated right pleural effusion. Thoracentesis did not result in resolution. Surgical drainage was recommended. Prior to the procedure, I tried and the nursing staff tried multiple occasions to reach his , Billie Portillo. The number listed on the chart [phone] went to an answering machine. Two other numbers he gave us went to other people, who were not Ms. Portillo. Prior to surgery, I described the operation to the patient. I told him that the risks of surgery would include , bleeding, infection, heart attack, stroke, pneumonia, prolonged ICU stay, mechanical ventilation, tracheostomy, prolonged intubation, recurrence of the effusion, recurrence of the infection, the possibility of malignancy, etc. The patient stated that he understood, no further questions, and wanted to proceed. FINDINGS: Large right loculated pleural effusion that was drained completely. Cultures sent for anaerobic, aerobic, fungal, and AFB cultures. Pleural biopsy was sent for the same cultures as well as pathology. Pleural effusion was also sent for cytologic analysis. Lung decortication was uneventful. Lung expanded nicely. Multilevel intercostal nerve block was performed as well. DESCRIPTION OF PROCEDURE: The patient was taken to operative room on May 15, 2019, and placed supine upon the operating room table. General endotracheal anesthesia was smoothly induced with a double-lumen endotracheal tube. Flexible bronchoscopic examination was carried out through the tracheal and bronchial lumens of the tube. There were some secretions in the right tracheobronchial tree that were irrigated and sent for multiple cultures as above. No endobronchial lesions were identified. The patient was placed with the right side up. The right chest was sterilely prepped and draped in the usual fashion using alcohol prewash and Betadine scrub and solution. Time-out had been performed before the flexible bronchoscopic examination. A Thoracoport was inserted along the line of a right lateral thoracotomy. The cavity of the pleural effusion was entered. The pleural effusion was drained and sent for analysis as above. Decortication was initiated, but the cortical peel was quite thick and not amenable to a thoracoscopic procedure. Right lateral thoracotomy was performed. Chest was entered. Full decortication of the right lung was carried out. The pleural cavity was decorticated in the area of the loculated effusion debrided. There was good hemostasis. A telephone service representative section of the thickened pleura was sent for pathologic analysis and cultures as noted above. Multilevel intercostal nerve block was then carried out for four ribs above and below the incision. Local anesthesia was also infiltrated into the wound. The lung inflated well after decortication. There was good hemostasis and minimal air leak. Two chest tubes were inserted through separate stab wound incision. The chest was closed using #2 pericostal sutures and absorbable sutures for muscle layers and skin. Sterile dressings were applied. Sponge, instrument, and needle counts were correct prior to and after wound closure. Independent search of the operative field by both operating surgeon and nurse revealed no retained instruments or sponges. The patient tolerated the procedure well and was taken to the recovery area in stable condition. MD MONTSE EstradaL/MODL /[id number]
[2019-05-16] MEDS: HYDRALAZINE HCL 20 MG/ML VIAL IV PRN (01:53)
[2019-05-16] MEDS: METOPROLOL TARTRATE 25 MG TAB PO SCH ×3 (03:00→21:38)
[2019-05-16] MEDS: NIFEDIPINE CR 30 MG TAB PO SCH ×2 (03:00→21:38)
[2019-05-16] MEDS: HYDRALAZINE HCL 25 MG TAB PO SCH ×2 (03:00→18:33)
[2019-05-16] MEDS: AZITHROMYCIN 500MG/NS 250 ML 250 ML IV SCH (03:35)
[2019-05-16] MEDS: IRON SUCROSE 100 MG in SODIUM CHLORIDE 0.9% 100 ML 100 ML IV SCH (05:06)
[2019-05-16 05:07] LABS: BASOPHILS % 0.1 % (0.0-1.0); EOSINOPHILS # (AUTO) 0.1 (0.0-0.4); EOSINOPHILS % 1.7 % (0.0-6.0); HEMATOCRIT 25.7 % (38.2-49.6); HEMOGLOBIN 8.3 g/dL (14.0-18.0); LYMPHOCYTES # (AUTO) 0.5 (1.0-3.2); LYMPHOCYTES % 6.6 % (18.0-39.1); MEAN CORPUSCULAR HEMOGLOBIN 28.2 pg (28-32); MEAN CORPUSCULAR HGB CONC 32.3 g/dL (31-35); MEAN CORPUSCULAR VOLUME 87.4 fL (81-99); MONOCYTES # (AUTO) 0.4 (0.2-0.8); NEUTROPHILS # (AUTO) 6.1 (2.1-6.9); NEUTROPHILS % 85.2 % (38.7-80.0); PLATELET COUNT 196 x10e3/uL (140-360); RED BLOOD COUNT 2.94 x10e6/uL (4.3-5.7); RED CELL DISTRIBUTION WIDTH 13.2 % (11.7-14.4)
[2019-05-16 05:34] LABS: ANION GAP 16.5 mmol/L (8-16); CALCIUM 7.9 mg/dL (8.4-10.2); CREATININE, SERUM 4.84 mg/dL (0.72-1.25); POTASSIUM 4.5 mmol/L (3.5-5.1)
--- NOTE | 2019-05-16 07:12 | Diagnostic Imaging Report ---
Examination: Single AP view of the chest. COMPARISON: AP chest 05/15/2019 INDICATION: Anemia, chest tube IMPRESSION: 1. Lines and Tubes: Stable right chest tube with distal tip projecting over the right medial apex. Stable right IJ central venous line with distal tip projecting in the proximal SVC. 2. Interval worsening of right pneumothorax, with maximal air gap of 19 mm (previously 9 mm). Unable to assess left pleural effusion as the left costophrenic angle is not included in the image. 3. Stable cardiomediastinal silhouette. Pulmonary vasculature is normal. 4. No acute bony abnormalities. Signed by: Dr. Tod Prasad M.D. on 05/16/2019 7:11 AM
[2019-05-16] MEDS: SUCRALFATE 1 GM TAB PO SCH ×4 (07:30→21:38)
[2019-05-16] MEDS: INSULIN LISPRO 100 UNIT/1 ML 3ML VIAL SQ SCH ×4 (07:30→21:00)
[2019-05-16] MEDS: SEVELAMER CARBONATE 800 MG TAB PO SCH ×3 (08:00→18:33)
[2019-05-16] MEDS: LOSARTAN POTASSIUM 25 MG TAB PO SCH ×2 (09:00→18:33)
[2019-05-16] MEDS: FOLIC ACID 1 MG TAB PO SCH (09:00)
[2019-05-16] MEDS: FUROSEMIDE 40 MG TAB PO SCH (09:00)
[2019-05-16] MEDS: CRESTOR 10MG PO SCH ×2 (09:00→21:38)
[2019-05-16] MEDS: DOCUSATE SODIUM 100 MG CAP PO SCH ×3 (09:00→21:38)
[2019-05-16 09:13] LABS: EOSINOPHILS % (MANUAL) 3 % (0-7); LYMPHOCYTES % (MANUAL) 4 % (19-48); MONOCYTES % (MANUAL) 5 % (3.4-9.0); NEUTROPHILS % (MANUAL) 88 % (40-74)
[2019-05-16 09:14] LABS: PLATELET ESTIMATE ADEQUATE; PLATELET MORPHOLOGY COMMENT NORMAL; RBC MORPHOLOGY COMMENT NORMAL
[2019-05-16] MEDS: PANTOPRAZOLE 40 MG 10ML VIAL IV SCH ×2 (10:00→21:38)
[2019-05-16] MEDS: CYANOCOBALAMIN INJ 1,000 MCG/ML VIAL IM SCH (10:00)
--- NOTE | 2019-05-16 12:56 | NUR ---
Nutrition Intervention Note RD Recommendation(s) for Physician: -ADAT to renal per MD. -Nepro supplement 6 x per day per MD when diet is advanced. Plan of Care: RD following, monitoring for tolerance and adequacy. Nepro 6 x per day when diet is advanced. Nutrition reason for involvement: follow up RD Assessment 05/16: Follow up: Pt was seen resting within the ICU. The pt had surgery performed yesterday, currently on clears. Spoke about pt in rounds, pt will receive dialysis today and wound debridement tmrw. Will continue to monitor. 05/14: Follow up/consult: Pt was seen finishing his breakfast, he consumed 100% of his breakfast and stated that he could even eat some more. Received consult from MD, wanted the pt to consume Nepro supplement twice at each meal, this order was placed within Personally. Pt denied N/V/C/D/ chewing or swallowing issues at this time. Thoracoscopy or open drainage will be arranged per MD. Will continue to monitor. (05/09/2019) Chart reviewed. Labs and meds reviewed. Pt is a 58 year old male admitted with anemia, ESRD, pleural effusion, and pneumonia. Pt is currently NPO. Pt was unable to quantify PO intake amount prior to admission at time of visit. Pt mentioned he had lost weight and used to weigh 150 lbs 2 months ago. Pt currently has a weight of 139 lbs in chart. If accurate, this would be a 7% wt loss in 2 months significant weight loss. No N/V or chewing/swallowing issues noted. Recommend Nepro for added nutrition when diet advances. Will continue to monitor. Principal Problems/Diagnoses: anemia, ESRD, pleural effusion, and pneumonia PMH: HTN, high cholesterol, ESRD, anemia of chronic disease GI: flat,round, non-tender LBM: 05/12 Skin: wound on chest and foot Labs: 05/16: Creat 4.84, Gluc 132, Ca 7.9 05/14: POC GM: 127 (05/09/19) K 2.9, Creat 3.47, iron 35 Meds: vitamin b12, IV iron, azithromycin, renvela, insulin, losartan, metroprolol, lasix, folic acid, zofran Ht: 72 in (per pt) Wt:139 lb 05/14: 137 lbs BMI: 18.8 kg/m2 IBW: 178 lb Malnutrition Evaluation (05/09/2019) The patient does not meet criteria for a specified degree of malnutrition at this time. Will re-evaluate at follow-up as appropriate. Energy intake: Unknown Weight loss: 7% weight loss in 2 months Fat loss: no loss identified Muscle loss: Moderate lower extremities Supporting Evidence: Fluid accumulation: no accumulation identified per MD note Functional Status: unable to evaluate Nutrition Prescription (Diet Order): NPO Estimated Nutritional Needs: 6915-6495 calories/day (30-35 kcal/kg CBW) 76-95 g protein/day (1.2-1.5 g pro/kg CBW) Diet Adequacy: clear liquids Tolerance: tolerating diet Diet Education Needs Assessment: Diet education not indicated, patient on temporary/transition diet. Nutrition Care Level: moderate Nutrition Diagnosis: Unintended weight loss related to predicted h/o inadequate energy intake related to 7% weight loss in 2 months. Goal: Patient will meet 75-100% of estimated needs by follow up Progress: progressing Interventions: -mineral (Phos, K, Na) modified diet, Commercial beverage Monitoring/Evaluation: -Total energy intake, Total protein intake, Modified diet, Liquid supplement, Weight change Signed: Lilliam Hess RD, LD
--- NOTE | 2019-05-16 13:21 | Consultation ---
DATE OF CONSULTATION: REASON FOR CONSULTATION: Grade 2 ulceration to the plantar aspect right foot, causing pain upon ambulation. HISTORY OF PRESENT ILLNESS: This is a 58-year-old male, who was seen at ICU after the patient having a couple chest tubes put in secondary to pleural effusion, who has a history of diabetes, hypertension, congestive heart failure, and end-stage renal disease, who relates he has had this lesion for several months now. He is not able to walk comfortably. He is denying any history of fever, chills, nausea, or vomiting at this time. PAST MEDICAL HISTORY: As described above. SOCIAL HISTORY: Denies any smoking, drinking, or recreational drug use. Lives alone. Has one kid. 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 CURRENT MEDICATIONS: Note listed in chart. FAMILY HISTORY: Remarkable for diabetes. ALLERGIES: THE PATIENT DENIES. REVIEW OF SYSTEMS: CARDIAC: Denies any palpitations or arrhythmias. RESPIRATORY: Does relate some shortness of breath. GASTROINTESTINAL: Denies any abdominal pain. PHYSICAL EXAMINATION: VITAL SIGNS: Afebrile, pulse rate 78, respiration 20, blood pressure 155/73, and O2 saturation 100%. Podiatric physical examination reveals the following: VASCULATURE: Pedal pulses of both the DP and PT are palpable. CFT to all toes less than 3 seconds. NEUROLOGICAL: Reveals some decreased and protective sensation when utilizing [place] 5.07 monofilament wire. MUSCULOSKELETAL: Reveals muscle mass to be symmetrical. Muscle strength to be 4/5 to all muscle groups. DERMATOLOGICAL: Reveals a grade 2 ulceration measuring 2 to 2.5 cm in diameter plantar aspect right foot, painful with hyperkeratotic lesion noted down to subcutaneous tissue. LABORATORY DATA: Labs noted; has a white blood cell count of 7.12, hemoglobin 8.3, hematocrit 25.7 with a platelet count of 196. Has an INR of 0.92. ASSESSMENT: Grade 2 ulceration with diabetic neuropathy. PLAN: We will start applying Bactroban ointment to the ulceration site. Ulceration will be debrided sometime this weekend. Continue offloading. We will continue to follow. YULI Sutton/BRIT /[id number]
--- NOTE | 2019-05-16 18:25 | Progress Note ---
DATE: 05/16/2019 CONSULTANTS: 1. Dr. Rivas with Nephrology. 2. Dr. Fraire with pulmonary.. 3. Dr. Lockhart with GI. 4. Dr. Freeman with CV surgeon. 5. Dr. Amin with Podiatry. CHIEF COMPLAINT: Generalized weakness and shortness of breath due to recurrent fluid overload and pulmonary effusion. SUBJECTIVE: Resting in bed with no acute distress. Admitted to the ICU post VATS yesterday. Chest tube to the right side x2, draining serosanguineous. He reports pain at the site. He denies any chest pain, shortness of breath, fever, or chills. PHYSICAL EXAMINATION: VITAL SIGNS: Temperature 97.8, pulse is 66, respirations 12, blood pressure 154/72, and pulse ox is 100% on nasal cannula. GENERAL: No acute distress. HEENT: Normocephalic and atraumatic. NECK: Supple. LUNGS: With decreased breath sounds. CARDIOVASCULAR: Regular rate and rhythm. GI: Soft and nontender. NEUROLOGIC: Alert, awake, and oriented x3. MUSCULOSKELETAL: Moves all extremities. SKIN: Dry. LABORATORY DATA: WBC 7.12, hemoglobin is 8.3, hematocrit is 25.7, and platelet is 196. Sodium 138, potassium 4.5, BUN is 24, creatinine is 4.84, estimated GFR is 12 , glucose 132, and calcium is 7.9. IMPRESSION: 1. Dyspnea due to fluid overload and pleural effusion. Status post thoracentesis to the left lung and video-assisted thoracoscopic surgery to the right lung per CV surgeon. Continue to monitor in ICU with chest tube x2 to the right side. 2. Anemia of chronic diseases. Status post 2 units of PRBCs. Hemoglobin is stable at 8. We will continue to monitor closely. 3. Hypertension. Continue on home medication and hydralazine. 4. End-stage renal disease. On dialysis per Nephrology. 5. Hypokalemia, replaced. 6. Iron deficiency anemia. Continue with supplement. 7. High cholesterol, on statin. 8. Poor appetite and dysphagia. HIDA showed chronic cholecystitis. GI has been consulted. Reglan for motility. 9. Right foot diabetic foot ulcer. Podiatry has been consulted. Plans debridement at bedside soon. 10. Deep vein thrombosis prophylaxis. No chemical anticoagulation due to anemia and surgical procedures. Dictated by Ambar Moise, HIGINIO Heather Sow MD MY/MODL /[id number] Seen and examined on 05/16/2019. Agree with the findings and plan as documented by HIGINIO Moise. RONNIED
[2019-05-16] MEDS: CEFTRIAXONE SOD 1 GM/NS 50 ML 50 ML IV SCH (18:33)
--- NOTE | 2019-05-16 19:31 | NUR ---
Touched base with Dr. Freeman regarding constant bubbling in one chest tube and worsening right pneumothorax on the right lung per radiology. Said that was ok and ordered to keep chest tubes to suction and have chest xray in AM.
[2019-05-17] VITALS (18 sets, daily range): BP systolic 119–179; BP diastolic 64–77
[2019-05-17] MEDS: METOCLOPRAMIDE HCL 10 MG/2ML VIAL IV SCH ×4 (00:04→17:07)
[2019-05-17] MEDS: AZITHROMYCIN 500MG/NS 250 ML 250 ML IV SCH (04:04)
[2019-05-17] MEDS: MORPHINE SULFATE 2 MG/ML SYR 1ML IV PRN (04:21)
[2019-05-17] MEDS: IRON SUCROSE 100 MG in SODIUM CHLORIDE 0.9% 100 ML 100 ML IV SCH (05:02)
[2019-05-17 05:32] LABS: BASOPHILS % 0.6 % (0.0-1.0); EOSINOPHILS # (AUTO) 0.1 (0.0-0.4); EOSINOPHILS % 0.9 % (0.0-6.0); HEMATOCRIT 24.6 % (38.2-49.6); HEMOGLOBIN 7.9 g/dL (14.0-18.0); LYMPHOCYTES # (AUTO) 0.8 (1.0-3.2); LYMPHOCYTES % 11.7 % (18.0-39.1); MEAN CORPUSCULAR HEMOGLOBIN 28.5 pg (28-32); MEAN CORPUSCULAR HGB CONC 32.1 g/dL (31-35); MEAN CORPUSCULAR VOLUME 88.8 fL (81-99); MONOCYTES # (AUTO) 0.8 (0.2-0.8); MONOCYTES % 12.5 % (4.4-11.3); NEUTROPHILS # (AUTO) 4.7 (2.1-6.9); NEUTROPHILS % 73.8 % (38.7-80.0); PLATELET COUNT 211 x10e3/uL (140-360); RED BLOOD COUNT 2.77 x10e6/uL (4.3-5.7); RED CELL DISTRIBUTION WIDTH 13.5 % (11.7-14.4)
[2019-05-17 06:05] LABS: ANION GAP 15.1 mmol/L (8-16); CALCIUM 8.6 mg/dL (8.4-10.2); CREATININE, SERUM 3.25 mg/dL (0.72-1.25); MAGNESIUM 1.8 MG/DL (1.3-2.1); PHOSPHORUS 3.4 MG/DL (2.3-4.7); POTASSIUM 4.1 mmol/L (3.5-5.1)
--- NOTE | 2019-05-17 06:41 | Diagnostic Imaging Report ---
EXAMINATION: CHEST SINGLE (PORTABLE) INDICATION: ^two chest tubes ^[id number] ^0520 COMPARISON: 05/16/2019 FINDINGS: AP view TUBES and LINES: Stable right IJ central line and right chest tubes. LUNGS: Lungs are well inflated. Right lung airspace opacities, slightly decreased from prior exam. PLEURA: Right apical pneumothorax. Small bilateral pleural effusions, left greater than right. HEART AND MEDIASTINUM: The cardiomediastinal silhouette is unremarkable. BONES AND SOFT TISSUES: No acute osseous lesion. Soft tissues are unremarkable. UPPER ABDOMEN: No free air under the diaphragm. IMPRESSION: Unchanged right apical pneumothorax. Right lung airspace opacities, mildly decreased from prior exam. Small bilateral pleural effusions, left greater than right. Underlying pneumonia cannot be excluded. Signed by: Dr. Bryant Wright MD on 05/17/2019 6:38 AM
[2019-05-17] MEDS: INSULIN LISPRO 100 UNIT/1 ML 3ML VIAL SQ SCH ×4 (07:30→21:00)
[2019-05-17] MEDS: SUCRALFATE 1 GM TAB PO SCH ×4 (08:13→21:17)
[2019-05-17] MEDS: SEVELAMER CARBONATE 800 MG TAB PO SCH ×3 (08:14→16:46)
[2019-05-17] MEDS: PANTOPRAZOLE 40 MG 10ML VIAL IV SCH ×2 (09:30→21:17)
[2019-05-17] MEDS: CYANOCOBALAMIN INJ 1,000 MCG/ML VIAL IM SCH (09:30)
[2019-05-17] MEDS: HYDRALAZINE HCL 25 MG TAB PO SCH ×2 (09:30→17:02)
[2019-05-17] MEDS: DOCUSATE SODIUM 100 MG CAP PO SCH ×3 (09:30→21:17)
[2019-05-17] MEDS: LOSARTAN POTASSIUM 25 MG TAB PO SCH ×2 (09:31→17:07)
[2019-05-17] MEDS: CRESTOR 10MG PO SCH ×2 (09:31→21:17)
[2019-05-17] MEDS: FOLIC ACID 1 MG TAB PO SCH (09:31)
[2019-05-17] MEDS: MUPIROCIN 2% OINT 22 GM TUBE TOP SCH ×2 (09:32→17:07)
[2019-05-17] MEDS: METOPROLOL TARTRATE 25 MG TAB PO SCH ×2 (09:32→21:17)
[2019-05-17] MEDS: FUROSEMIDE 40 MG TAB PO SCH (09:32)
--- NOTE | 2019-05-17 14:09 | Progress Note ---
DATE: 05/17/2019 Internal Medicine Progress Note This is covering for Dr. Naseem Sow. SUBJECTIVE: Mr. uKrtis Borjas is on room air FiO2. He has two chest tubes in place in the right hemithorax. No significant air leak noted. He is eating well per nursing. Admitted into the ICU at this time. REVIEW OF SYSTEMS: No headaches, no bleeding. OBJECTIVE: VITAL SIGNS: Afebrile, vital signs noted, reviewed per the chart record. GENERAL: In no acute distress, alert, calm, but weak. HEENT: Normocephalic, atraumatic. NECK: Supple, throat midline. LUNGS: Bilateral air entry, decreased breath sounds at bases, decreased effort. CARDIOVASCULAR: S1, S2. No murmurs, rubs, or gallops. ABDOMINAL: Soft, nontender. EXTREMITIES: No clubbing. No cyanosis. There is only ankle foot edema. INTEGUMENT: No rash. No purpura. LABORATORY DATA: 6 white count, 25 hematocrit, 211 platelets. 4.1 potassium, 28 bicarbonate, 15 BUN, creatinine 3.3. IMPRESSION AND PLAN: 1. Right foot ulcer. 2. Diabetic neuropathy. 3. Fluid overload. 4. Pleural effusions. 5. Anemia of chronic disease. 6. Hypertension. 7. End-stage renal disease. 8. Hyperlipidemia. Maintain chest tubes in postoperative care per surgeon. Antibiotics, continue for short term. Continue to get negative fluid balance as tolerated by Nephrology. Continue maximizing diet. We will follow along closely. DVT prophylaxis MD AMPARO Babb/MODL /[id number]
--- NOTE | 2019-05-17 15:12 | NUR ---
Report called to Anabell VASQUEZ. Transferred to room 103. No current complications noted.
--- NOTE | 2019-05-17 16:44 | Progress Note ---
DATE: SUBJECTIVE: The patient is feeling better, who relates he is breathing better and decreased discomfort and burning to both lower extremities. Denies any history of fever, chills, nausea, or vomiting. OBJECTIVE: VITAL SIGNS: Afebrile. Pulse rate 79, respirations 20, blood pressure 161/77, and O2 saturation at 100%. LABORATORY DATA: Noted. He has a white blood cell count of 6.39, hemoglobin 7.9. Ulceration to the right foot is stable for now. Positive periwound cellulitis with the ulcer measuring 2-2.5 cm in diameter plantar aspect right foot. Pedal pulses are palpable. ASSESSMENT: Grade 2 ulcer with diabetic neuropathy. PLAN: We will continue Bactroban ointment. Ulceration will be debrided tomorrow at bedside. Continue offloading. We will continue to follow. YULI Sutton/BRIT /[id number]
[2019-05-17] MEDS: CEFTRIAXONE SOD 1 GM/NS 50 ML 50 ML IV SCH (17:09)
--- NOTE | 2019-05-17 19:00 | NUR ---
Report received from Ashley Franks RN. Care plan reviewed, no family present. Pt reports no pain or discomfort at this time.
--- NOTE | 2019-05-17 21:00 | NUR ---
Report given to Karyn Perez RN.
[2019-05-17] MEDS: NIFEDIPINE CR 30 MG TAB PO SCH (21:17)
--- NOTE | 2019-05-17 21:25 | NUR ---
patient took scheduled meds , tolerated well, no distress noted, denied any discomfort. patient made 30 cc urine output.
--- NOTE | 2019-05-17 23:10 | Progress Note ---
DATE: 05/17/2019 SUBJECTIVE: Doing well after drainage loculated pleural effusion and decortication. Minimal air leak in chest tube. Wound is clean and dry. Sinus rhythm. Chest x-ray shows fully expanded lung and appropriately placed chest tubes. Tolerating p.o. Tolerating dialysis. IMPRESSION: Doing well. PLAN: Continue chest tube drainage over the next 24-48 hours. MD MELVIN Estrada/BRIT /[id number]
[2019-05-18] VITALS (12 sets, daily range): BP systolic 97–169; BP diastolic 52–70
[2019-05-18] MEDS: MORPHINE SULFATE 2 MG/ML SYR 1ML IV PRN (00:18)
[2019-05-18] MEDS: METOCLOPRAMIDE HCL 10 MG/2ML VIAL IV SCH ×5 (00:18→23:43)
[2019-05-18] MEDS: IRON SUCROSE 100 MG in SODIUM CHLORIDE 0.9% 100 ML 100 ML IV SCH (04:18)
[2019-05-18] MEDS: AZITHROMYCIN 500MG/NS 250 ML 250 ML IV SCH (04:23)
[2019-05-18] MEDS: INSULIN LISPRO 100 UNIT/1 ML 3ML VIAL SQ SCH ×4 (07:30→20:04)
[2019-05-18] MEDS: SUCRALFATE 1 GM TAB PO SCH ×4 (08:05→20:00)
[2019-05-18] MEDS: SEVELAMER CARBONATE 800 MG TAB PO SCH ×3 (08:06→18:40)
[2019-05-18] MEDS: HYDRALAZINE HCL 25 MG TAB PO SCH ×2 (09:00→17:00)
[2019-05-18] MEDS: FUROSEMIDE 40 MG TAB PO SCH (09:00)
[2019-05-18] MEDS: LOSARTAN POTASSIUM 25 MG TAB PO SCH ×2 (09:00→17:00)
[2019-05-18] MEDS: METOPROLOL TARTRATE 25 MG TAB PO SCH ×2 (09:00→20:04)
[2019-05-18] MEDS: PANTOPRAZOLE 40 MG 10ML VIAL IV SCH ×2 (09:38→20:00)
[2019-05-18] MEDS: CYANOCOBALAMIN INJ 1,000 MCG/ML VIAL IM SCH (09:38)
[2019-05-18] MEDS: DOCUSATE SODIUM 100 MG CAP PO SCH ×3 (09:39→20:01)
[2019-05-18] MEDS: CRESTOR 10MG PO SCH ×2 (09:39→20:01)
[2019-05-18] MEDS: FOLIC ACID 1 MG TAB PO SCH (09:39)
[2019-05-18] MEDS: MUPIROCIN 2% OINT 22 GM TUBE TOP SCH ×2 (09:39→18:40)
--- NOTE | 2019-05-18 13:19 | NUR ---
Internal Medicine Progress Note This is covering for Dr. Naseem Sow. DATE: 05/18/2019 SUBJECTIVE: RA Fio2 CHEST tubes x [address] (+) air leak in bed REVIEW OF SYSTEMS: No headaches, no bleeding. OBJECTIVE: VITAL SIGNS: vital signs noted, reviewed per the chart record. GENERAL: no acute distress, alert, calm, but weak. HEENT: Normocephalic, atraumatic. NECK: Supple, throat midline. LUNGS: Bilateral air entry, decreased breath sounds at bases, decreased effort. CARDIOVASCULAR: S1, S2. No murmurs, rubs, or gallops. ABDOMINAL: Soft, nontender. EXTREMITIES: No clubbing. No cyanosis. small ankle/foot edema. INTEGUMENT: No rash. No purpura. LABORATORY DATA: no new updates IMPRESSION AND PLAN: 1. Right foot ulcer. 2. Diabetic neuropathy. 3. Fluid overload. 4. Pleural effusions. 5. Anemia of chronic disease. 6. Hypertension. 7. End-stage renal disease. 8. Hyperlipidemia. Maintain chest tubes in postoperative care per surgeon. +air leak noted 05/18/19 Antibiotics Negative fluid balance as tolerated by Nephrology. Maximizing diet, not eating a lot so far DVT prophylaxis
--- NOTE | 2019-05-18 14:30 | NUR ---
Visit made by the Spiritual Care Department Pastoral Visitor, Jose Martin. PV provided pastoral presence, prayer, communion, and supportive listening. Pastoral Visitor informed pt/family of the scope of [employer] and availability. KAITY NIELSON Hay Baler Spiritual Care Department O: [phone] Pager: [phone] ([phone] calling from)
--- NOTE | 2019-05-18 14:32 | Progress Note ---
DATE: 05/18/2019 SUBJECTIVE: The patient seen at bedside, doing better, denying any history of fever, chills, nausea, or vomiting. OBJECTIVE: VITAL SIGNS: Afebrile, pulse rate 69, respirations 16, blood pressure 110/58, O2 saturation 100%. LABORATORY DATA: Noted with a white blood cell count of 6.3, hemoglobin 7.9. Ulceration of right foot 2 to 2.5 cm in diameter with necrosis noted down the subcutaneous tissue, hyperkeratotic lesion more than half a cm in width. Pedal pulses are palpable, but diminished. ASSESSMENT: Diabetic neuropathy with a grade 2 ulceration, cellulitis, right foot. PLAN: Under no anesthesia secondary to his peripheral neuropathy, sharp excisional debridement of the ulcer was carried down to subcu devitalized tissue, sharply excised until good viable bleeding tissue was achieved. Sterile dressing was applied. We will continue to apply Bactroban ointment followed by diluted wet-to-dry Betadine. Continue offloading. We will continue to follow. YULI Sutton/BRIT /[id number]
[2019-05-18 15:25] LABS: % IRON SATURATION 67 % (15-50); IRON 83 ug/dL (65-175); TOTAL IRON BINDING CAPACITY 123 ug/dL (261-478); TRANSFERRIN 88 mg/dL (174-364)
--- NOTE | 2019-05-18 18:30 | NUR ---
Transfer to room 290. Report called to Lisa VASQUEZ. No complications noted.
[2019-05-18] MEDS: NIFEDIPINE CR 30 MG TAB PO SCH (20:04)
--- NOTE | 2019-05-18 20:16 | NUR ---
PATIENT IN BED, NO DISTRESS NOTED AT THIS TIME, DENIED ANY PAIN OR DISCOMFORT. RIGHT CHEST TUBES INTACT, MEDICINES SCHEDULED GIVEN PATIENT TOLERATED WELL. WILL CONTINUE TO MONITOR.
[2019-05-19] VITALS (7 sets, daily range): BP systolic 114–167; BP diastolic 58–75
[2019-05-19] MEDS: IRON SUCROSE 100 MG in SODIUM CHLORIDE 0.9% 100 ML 100 ML IV SCH (04:49)
[2019-05-19] MEDS: METOCLOPRAMIDE HCL 10 MG/2ML VIAL IV SCH ×4 (05:43→23:37)
[2019-05-19 05:48] LABS: INR 0.99; PROTHROMBIN TIME 13.6 seconds (11.9-14.5)
[2019-05-19 05:54] LABS: ANION GAP 14.3 mmol/L (8-16); CALCIUM 8.3 mg/dL (8.4-10.2); CREATININE, SERUM 6.37 mg/dL (0.72-1.25); POTASSIUM 4.3 mmol/L (3.5-5.1)
[2019-05-19 06:07] LABS: BASOPHILS # (AUTO) 0.1 (0.0-0.1); EOSINOPHILS # (AUTO) 0.3 (0.0-0.4); EOSINOPHILS % 4.7 % (0.0-6.0); HEMATOCRIT 22.1 % (38.2-49.6); LYMPHOCYTES # (AUTO) 1.1 (1.0-3.2); MEAN CORPUSCULAR HEMOGLOBIN 28.5 pg (28-32); MEAN CORPUSCULAR HGB CONC 32.1 g/dL (31-35); MEAN CORPUSCULAR VOLUME 88.8 fL (81-99); MONOCYTES # (AUTO) 0.5 (0.2-0.8); MONOCYTES % 9.4 % (4.4-11.3); NEUTROPHILS # (AUTO) 3.8 (2.1-6.9); NEUTROPHILS % 65.6 % (38.7-80.0); PLATELET COUNT 196 x10e3/uL (140-360); RED BLOOD COUNT 2.49 x10e6/uL (4.3-5.7); RED CELL DISTRIBUTION WIDTH 13.2 % (11.7-14.4)
[2019-05-19 06:10] LABS: HEMOGLOBIN 7.1 g/dL (14.0-18.0)
[2019-05-19] MEDS: INSULIN LISPRO 100 UNIT/1 ML 3ML VIAL SQ SCH ×4 (07:30→20:20)
--- NOTE | 2019-05-19 07:59 | Diagnostic Imaging Report ---
EXAMINATION: CHEST SINGLE (PORTABLE) INDICATION: Intubated. COMPARISON: 05/17/2019 FINDINGS: AP view TUBES and LINES: Stable right IJ central line and right chest tubes. LUNGS: Lungs are well inflated. Right middle lobe collapse. PLEURA: Small right-sided pneumothorax has increased, particularly in the lung base. Small bilateral pleural effusions, left greater than right. HEART AND MEDIASTINUM: The cardiomediastinal silhouette is mildly enlarged. BONES AND SOFT TISSUES: No acute osseous lesion. Soft tissues are unremarkable. UPPER ABDOMEN: No free air under the diaphragm. IMPRESSION: Mild interval increase in volume of right pneumothorax. Signed by: Dr. Lui Vidal M.D. on 05/19/2019 7:57 AM
[2019-05-19] MEDS: METOPROLOL TARTRATE 25 MG TAB PO SCH ×2 (09:50→20:14)
[2019-05-19] MEDS: HYDRALAZINE HCL 25 MG TAB PO SCH ×2 (09:50→16:33)
[2019-05-19] MEDS: FUROSEMIDE 40 MG TAB PO SCH (09:50)
[2019-05-19] MEDS: DOCUSATE SODIUM 100 MG CAP PO SCH ×3 (09:50→20:13)
[2019-05-19] MEDS: SEVELAMER CARBONATE 800 MG TAB PO SCH ×3 (09:50→16:33)
[2019-05-19] MEDS: FOLIC ACID 1 MG TAB PO SCH (09:50)
[2019-05-19] MEDS: MUPIROCIN 2% OINT 22 GM TUBE TOP SCH ×2 (09:50→16:33)
[2019-05-19] MEDS: LOSARTAN POTASSIUM 25 MG TAB PO SCH ×2 (09:50→16:33)
[2019-05-19] MEDS: PANTOPRAZOLE 40 MG 10ML VIAL IV SCH ×2 (09:50→20:13)
[2019-05-19] MEDS: SUCRALFATE 1 GM TAB PO SCH ×4 (09:50→20:13)
[2019-05-19] MEDS: CRESTOR 10MG PO SCH ×2 (09:50→20:13)
[2019-05-19] MEDS: CYANOCOBALAMIN INJ 1,000 MCG/ML VIAL IM SCH (09:50)
[2019-05-19] MEDS ORDERED: ACETYLCYSTEINE 20% INHAL SOLN 30 ML VIAL PO SCH (10:30)
--- NOTE | 2019-05-19 11:59 | Diagnostic Imaging Report ---
EXAMINATION: CHEST SINGLE (PORTABLE) INDICATION: Chest tube placement COMPARISON: Chest radiograph 05/19/2019 FINDINGS: LINES/TUBES:Right apical and basilar chest tubes unchanged. Right IJ central venous catheter unchanged. EKG leads overlie the chest. LUNGS/PLEURA:The left lung is well inflated. The right lung volumes are low. Unchanged right basilar opacities. Slightly decreased size of right basilar pneumothorax, now measuring up to 3.7 cm compared to 4.6 cm previously. MEDIASTINUM:The cardiomediastinal silhouette appears unchanged in size and shape. BONES/SOFT TISSUES:No acute osseous injury. ABDOMEN:No free air under the diaphragm. IMPRESSION: Slight interval decrease in size of right basilar pneumothorax, now measuring up to 3.7 cm. Otherwise, no significant interval change. Signed by: Chandrakant Leija MD on 05/19/2019 11:57 AM
[2019-05-19] MEDS: ACETYLCYSTEINE 20% INHAL SOLN 30 ML VIAL INH SCH ×2 (13:26→19:35)
[2019-05-19] MEDS: ALBUTEROL SULF 0.083% NEB SOLN 3 ML NEB NEB SCH ×2 (13:26→19:35)
[2019-05-19] MEDS: NIFEDIPINE CR 30 MG TAB PO SCH (20:14)
[2019-05-20] VITALS (8 sets, daily range): BP systolic 128–166; BP diastolic 60–68
[2019-05-20] MEDS: ALBUTEROL SULF 0.083% NEB SOLN 3 ML NEB NEB SCH ×4 (01:02→19:23)
--- NOTE | 2019-05-20 01:31 | Progress Note ---
DATE: 05/19/2019 SUBJECTIVE: The patient at bedside, doing somewhat better. Decreased pain to the right lower extremity. Denies any history of fever, chills, nausea, or vomiting. OBJECTIVE: VITAL SIGNS: Afebrile. Pulse rate 76, respirations 12, blood pressure 120/61, O2 saturation 100%. LABORATORY DATA: Labs show white blood cell count of 5.74, hemoglobin 7.1, hematocrit 22.1 with a platelet count of 196. Ulceration, plantar aspect right foot looking better, less than 1.5 cm in diameter with necrosis noted down the subcutaneous tissue, healing with some granulation tissue noted present. Pedal pulses are diminished. ASSESSMENT: Diabetic neuropathy with a grade 2 ulcer healing with periwound cellulitis. PLAN: We will continue Bactroban ointment to the affected area. Continue offloading. We will continue to follow. YULI Sutton/BRIT /[id number]
--- NOTE | 2019-05-20 01:38 | NUR ---
Internal Medicine Progress Note This is covering for Dr. Naseem Sow. DATE: 05/19/2019 SUBJECTIVE: RA Fio2, 100% sat CHEST tubes x 2 (+) air leak continued patient ate well REVIEW OF SYSTEMS: No headaches, no bleeding. OBJECTIVE: VITAL SIGNS: vital signs noted, reviewed per the chart record. GENERAL: no acute distress, alert, calm, but weak. HEENT: Normocephalic, atraumatic. NECK: Supple, throat midline. LUNGS: Bilateral air entry, decreased breath sounds at bases, decreased effort. CARDIOVASCULAR: S1, S2. No murmurs, rubs, or gallops. ABDOMINAL: Soft, nontender. EXTREMITIES: No clubbing. No cyanosis. small ankle/foot edema. INTEGUMENT: No rash. No purpura. LABORATORY DATA: no new updates IMPRESSION AND PLAN: 1. Right foot ulcer. 2. Diabetic neuropathy. 3. Fluid overload. 4. Pleural effusions. 5. Anemia of chronic disease. 6. Hypertension. 7. End-stage renal disease. 8. Hyperlipidemia. Maintain chest tubes in postoperative care per surgeon. +air leak noted 05/19/19 Antibiotics Negative fluid balance as tolerated by Nephrology. Maximizing diet, better
[2019-05-20] MEDS: METOCLOPRAMIDE HCL 10 MG/2ML VIAL IV SCH ×3 (05:16→18:34)
[2019-05-20 06:15] LABS: BASOPHILS % 0.6 % (0.0-1.0); EOSINOPHILS # (AUTO) 0.1 (0.0-0.4); EOSINOPHILS % 2.2 % (0.0-6.0); LYMPHOCYTES # (AUTO) 0.9 (1.0-3.2); LYMPHOCYTES % 13.9 % (18.0-39.1); MEAN CORPUSCULAR HEMOGLOBIN 29.1 pg (28-32); MEAN CORPUSCULAR HGB CONC 32.8 g/dL (31-35); MEAN CORPUSCULAR VOLUME 88.7 fL (81-99); MONOCYTES # (AUTO) 0.7 (0.2-0.8); MONOCYTES % 11.8 % (4.4-11.3); NEUTROPHILS # (AUTO) 4.5 (2.1-6.9); NEUTROPHILS % 71.2 % (38.7-80.0); PLATELET COUNT 190 x10e3/uL (140-360); RED CELL DISTRIBUTION WIDTH 13.4 % (11.7-14.4)
[2019-05-20 06:18] LABS: HEMATOCRIT 20.4 % (38.2-49.6); HEMOGLOBIN 6.7 g/dL (14.0-18.0)
[2019-05-20 06:37] LABS: ANION GAP 16.3 mmol/L (8-16); CALCIUM 8.3 mg/dL (8.4-10.2); CREATININE, SERUM 8.08 mg/dL (0.72-1.25); POTASSIUM 4.3 mmol/L (3.5-5.1)
[2019-05-20] MEDS: ACETYLCYSTEINE 20% INHAL SOLN 30 ML VIAL INH SCH ×2 (07:05→19:23)
[2019-05-20] MEDS ORDERED: SODIUM CHLORIDE 0.9% 250ML 250 ML IV ONE (07:30)
[2019-05-20] MEDS: INSULIN LISPRO 100 UNIT/1 ML 3ML VIAL SQ SCH ×4 (07:30→21:00)
[2019-05-20] MEDS: FUROSEMIDE 40 MG TAB PO SCH (09:00)
[2019-05-20] MEDS: CRESTOR 10MG PO SCH (09:00)
[2019-05-20] MEDS: METOPROLOL TARTRATE 25 MG TAB PO SCH (09:00)
[2019-05-20] MEDS: LOSARTAN POTASSIUM 25 MG TAB PO SCH ×2 (09:00→17:00)
[2019-05-20] MEDS: HYDRALAZINE HCL 25 MG TAB PO SCH ×2 (09:00→17:00)
[2019-05-20] MEDS: SUCRALFATE 1 GM TAB PO SCH ×3 (09:12→18:34)
[2019-05-20] MEDS: SEVELAMER CARBONATE 800 MG TAB PO SCH ×3 (09:12→18:34)
[2019-05-20] MEDS: DOCUSATE SODIUM 100 MG CAP PO SCH ×3 (09:12→21:00)
[2019-05-20] MEDS: PANTOPRAZOLE 40 MG 10ML VIAL IV SCH (09:12)
[2019-05-20] MEDS: CYANOCOBALAMIN INJ 1,000 MCG/ML VIAL IM SCH (09:12)
[2019-05-20] MEDS: MUPIROCIN 2% OINT 22 GM TUBE TOP SCH ×2 (09:13→18:30)
[2019-05-20] MEDS: FOLIC ACID 1 MG TAB PO SCH (09:13)
--- NOTE | 2019-05-20 10:57 | NUR ---
Visit made by [employer]. [employer] provided pastoral presence, hospitality, and supportive listening. [employer] informed pt/family of the scope of [employer] and availability. [facility] O: [phone]
--- NOTE | 2019-05-20 11:03 | Progress Note ---
DATE: 05/20/2019 SUBJECTIVE: The patient is seen at bedside, doing better, eating with no distress. Denies any history of fever, chills, nausea, or vomiting. Decreased pain to the right lower extremity. OBJECTIVE: VITAL SIGNS: Afebrile, pulse rate 88, respirations 18, blood pressure 156/60, and O2 saturation 100%. EXTREMITIES: Ulceration to right lower extremity continues to improve. Periwound cellulitis present, less than 1.5 cm in diameter with granulation tissue noted. No bone or tendon exposed. LABORATORY DATA: Labs noted. Hemoglobin low at 6.7 with a white blood cell count of 6.26. ASSESSMENT: Grade 2 ulcer healing with peripheral neuropathy, metatarsalgia with periwound cellulitis. PLAN: Continue Bactroban ointment. Continue offloading. Okay for physical therapy with the surgical shoe. We will continue to follow. YULI Sutton/BRIT /[id number]
--- NOTE | 2019-05-20 11:45 | NUR ---
CHRISTINA Foley HS here dispensing surgical shoe to patient.
--- NOTE | 2019-05-20 12:23 | NUR ---
pt starting dialysis. will recvd 2 units PRBC
--- NOTE | 2019-05-20 12:39 | NUR ---
Reached out to Dr. Pruitt about DC plan, PT recommending SNF vs Inpt rehab, asked him if he would look at it tmrw. states the patient is not ready for dc too soon, his lungs are still healing.
[2019-05-20] MEDS ORDERED: LIDOCAINE HCL 1% LOCAL INJ 20 ML VIAL ONE (16:53)
[2019-05-20] MEDS ORDERED: HEPARIN SOD (PORCINE) 1000 UNIT/ML SDV IV NR (17:45)
--- NOTE | 2019-05-20 18:09 | Diagnostic Imaging Report ---
PROCEDURE: Non-tunneled central venous catheter placement Procedural Personnel Attending physician(s): Chandrakant Leija MD Fellow physician(s): None Resident physician(s): None Advanced practice provider(s): None Pre-procedure diagnosis: Chronic kidney disease Post-procedure diagnosis: Same Indication: Performance of hemodialysis Additional clinical history: LUE fistula clotted, needs dialysis access Complications: No immediate complications. IMPRESSION: Insertion of left-sided non-tunneled triple-lumen temporary dialysis catheter. Plan: Chest radiograph prior to use. PROCEDURE SUMMARY: - Venous access with ultrasound guidance - Non-tunneled central venous catheter insertion with fluoroscopic guidance - Additional procedure(s): None PROCEDURE DETAILS: Pre-procedure Consent: Informed consent for the procedure including risks, benefits and alternatives was obtained and time-out was performed prior to the procedure. Preparation (MIPS): The site was prepared and draped using all elements of maximal sterile barrier technique including sterile gloves, sterile gown, cap, mask, large sterile sheet, sterile ultrasound probe cover, hand hygiene and cutaneous antisepsis with 2% chlorhexidine. Medical reason for site preparation exception (MIPS): Not applicable Anesthesia/sedation Level of anesthesia/sedation: No sedation Access Local anesthesia was administered. The vessel was sonographically evaluated and determined to be patent. Real time ultrasound was used to visualize needle entry into the vessel and a permanent image was stored. Vein accessed: Internal jugular vein Access technique: Micropuncture set with 21 gauge needle Catheter placement The access site was dilated and the catheter was placed into the vein over a wire. A sterile dressing was applied. Catheter placed: Bard Trialysis Catheter size ([place]): 13 Catheter length (cm): 20 Catheter flush: Heparin (1000 units/mL) Catheter securement technique: Non-absorbable suture Contrast Contrast agent: None Radiation Dose None. Ultrasound only. Additional Details Additional description of procedure: None Equipment details: None Specimens removed: None Estimated blood loss (mL): Less than 10 Standardized report: [email or web address] Attestation Signer name: Chandrakant Leija MD I attest that I was present for the entire procedure. I reviewed the stored images and agree with the report as written. Signed by: Chandrakant Leija MD on 05/20/2019 6:06 PM
--- NOTE | 2019-05-20 18:29 | Diagnostic Imaging Report ---
EXAMINATION: CHEST 2 VIEWS INDICATION: Pneumothorax ^ptx ^[id number] ^[id number] COMPARISON: Chest x-ray 05/19/2019 FINDINGS: PA and lateral views TUBES and LINES: Right IJ catheter terminates in the SVC. Dual lumen central venous catheter terminates at the cavoatrial junction. Right chest tube is stable in position in the medial upper chest. Right basilar chest tube is stable in position. LUNGS/PLEURA: Right basilar pneumothorax measures 7 cm in craniocaudal dimension (previously, 3.7 cm). Medial pneumothorax in the upper right chest is stable. Patchy airspace opacities in the right lung are stable. The lungs are diffusely hyperinflated at baseline. There are small bilateral pleural effusions. HEART AND MEDIASTINUM: Stable. BONES AND SOFT TISSUES: Stable UPPER ABDOMEN: Unremarkable. IMPRESSION: Stable support devices. Enlarging right basilar pneumothorax. Medial pneumothorax in the upper chest is similar. Stable airspace opacities in the right lung. Small bilateral pleural effusions are similar. Signed by: Dr. Wes Cruz MD on 05/20/2019 6:26 PM
--- NOTE | 2019-05-20 18:40 | NUR ---
dialysis was unable to access graft. pt had temp tri catheter placed and will go to IR tomorrow to possibly removed clotting. pt is to recv the 2 units with dialysis and has iron at end pending also. should begin dialysis shortly.
[2019-05-20] MEDS: IRON SUCROSE 100 MG in SODIUM CHLORIDE 0.9% 100 ML 100 ML IV SCH (23:16)
[2019-05-20] MEDS ORDERED: HEPARIN SOD (PORCINE) 1000 UNIT/ML SDV IV ONE (23:45)
[2019-05-21] VITALS (8 sets, daily range): BP systolic 138–161; BP diastolic 65–75
[2019-05-21] MEDS: ALBUTEROL SULF 0.083% NEB SOLN 3 ML NEB NEB SCH ×4 (01:15→20:00)
[2019-05-21] MEDS: CRESTOR 10MG PO SCH ×3 (01:21→21:14)
[2019-05-21] MEDS: METOPROLOL TARTRATE 25 MG TAB PO SCH ×3 (01:23→21:15)
[2019-05-21] MEDS: NIFEDIPINE CR 30 MG TAB PO SCH ×2 (01:23→21:15)
[2019-05-21] MEDS: SUCRALFATE 1 GM TAB PO SCH ×6 (01:24→21:14)
[2019-05-21] MEDS: METOCLOPRAMIDE HCL 10 MG/2ML VIAL IV SCH ×5 (01:24→23:29)
[2019-05-21] MEDS: PANTOPRAZOLE 40 MG 10ML VIAL IV SCH ×2 (01:24→09:00)
--- NOTE | 2019-05-21 05:01 | NUR ---
Internal Medicine Progress Note This is covering for Dr. Naseem Sow. DATE: 05/20/2019 SUBJECTIVE: RA Fio2, 100% sat CHEST tubes x 2 (+) air leak continued CXR with increasing PTX REVIEW OF SYSTEMS: No headaches, no bleeding. OBJECTIVE: VITAL SIGNS: vital signs noted, reviewed per the chart record. GENERAL: no acute distress, alert, calm, but weak. HEENT: Normocephalic, atraumatic. NECK: Supple, throat midline. LUNGS: Bilateral air entry, decreased breath sounds at bases, decreased effort. CARDIOVASCULAR: S1, S2. No murmurs, rubs, or gallops. ABDOMINAL: Soft, nontender. EXTREMITIES: No clubbing. No cyanosis. small ankle/foot edema. INTEGUMENT: No rash. No purpura. LABORATORY DATA: no new updates IMPRESSION AND PLAN: 1. Right foot ulcer. 2. Diabetic neuropathy. 3. Fluid overload. 4. Pleural effusions. 5. Anemia of chronic disease. 6. Hypertension. 7. End-stage renal disease. 8. Hyperlipidemia. Maintain chest tubes in, postoperative care per surgeon. +air leak noted 05/20/19 Pneumothorax care per designated Antibiotics Negative fluid balance as tolerated by Nephrology. Anemia noted, for treatment Maximizing diet, better
[2019-05-21] MEDS: IRON SUCROSE 100 MG in SODIUM CHLORIDE 0.9% 100 ML 100 ML IV SCH (06:26)
[2019-05-21] MEDS: ACETYLCYSTEINE 20% INHAL SOLN 30 ML VIAL INH SCH ×2 (07:05→20:00)
[2019-05-21] MEDS: INSULIN LISPRO 100 UNIT/1 ML 3ML VIAL SQ SCH ×5 (07:30→21:00)
[2019-05-21] MEDS: SEVELAMER CARBONATE 800 MG TAB PO SCH ×3 (08:00→17:00)
[2019-05-21 08:12] LABS: BASOPHILS % 0.6 % (0.0-1.0); EOSINOPHILS # (AUTO) 0.2 (0.0-0.4); EOSINOPHILS % 3.5 % (0.0-6.0); HEMATOCRIT 28.5 % (38.2-49.6); HEMOGLOBIN 9.5 g/dL (14.0-18.0); LYMPHOCYTES # (AUTO) 1.1 (1.0-3.2); LYMPHOCYTES % 16.1 % (18.0-39.1); MEAN CORPUSCULAR HEMOGLOBIN 28.4 pg (28-32); MEAN CORPUSCULAR HGB CONC 33.3 g/dL (31-35); MONOCYTES # (AUTO) 0.9 (0.2-0.8); MONOCYTES % 13.2 % (4.4-11.3); NEUTROPHILS # (AUTO) 4.4 (2.1-6.9); NEUTROPHILS % 66.4 % (38.7-80.0); PLATELET COUNT 170 x10e3/uL (140-360); RED BLOOD COUNT 3.34 x10e6/uL (4.3-5.7); RED CELL DISTRIBUTION WIDTH 14.6 % (11.7-14.4)
[2019-05-21 08:26] LABS: MEAN CORPUSCULAR VOLUME 85.3 fL (81-99)
[2019-05-21] MEDS ORDERED: AMOXICILLIN 250 MG CAP PO ONE ×2 (08:30→13:15)
[2019-05-21 08:32] LABS: ANION GAP 15.8 mmol/L (8-16); CALCIUM 8.6 mg/dL (8.4-10.2); CREATININE, SERUM 3.84 mg/dL (0.72-1.25); POTASSIUM 3.8 mmol/L (3.5-5.1)
[2019-05-21] MEDS: HYDRALAZINE HCL 25 MG TAB PO SCH ×2 (09:00→17:13)
[2019-05-21] MEDS: DOCUSATE SODIUM 100 MG CAP PO SCH ×3 (09:00→21:00)
[2019-05-21] MEDS: LOSARTAN POTASSIUM 25 MG TAB PO SCH ×2 (09:00→17:13)
[2019-05-21] MEDS: MUPIROCIN 2% OINT 22 GM TUBE TOP SCH ×2 (09:00→19:41)
[2019-05-21] MEDS ORDERED: HEPARIN SOD (PORCINE) 1000 UNIT/ML SDV IV PRN (12:00)
[2019-05-21] MEDS ORDERED: PANTOPRAZOLE SOD 40 MG TABEC PO ONE (13:15)
[2019-05-21] MEDS ORDERED: CLARITHROMYCIN 500 MG TAB PO ONE (13:15)
--- NOTE | 2019-05-21 14:01 | Progress Note ---
DATE: 05/21/2019 SUBJECTIVE: The patient is seen at bedside, getting dialyzed, having minimal appetite. Denies any history of fever or chills. OBJECTIVE: VITAL SIGNS: Afebrile, pulse rate 92, respirations 16, blood pressure 151/71, and O2 saturation 99%. EXTREMITIES: Ulceration right lower extremity continues to improve, now down to dermis. Some granulation tissue noted. Periwound cellulitis present, less than 1.5 cm in diameter. LABORATORY DATA: Labs show a white blood cell count of 6.5, hemoglobin going up to 9.5, hematocrit 28.5 with a platelet count of 170. ASSESSMENT: Grade 2/1 ulceration, right foot with cellulitis. PLAN: Continue Bactroban ointment to affected area. Continue physical therapy. Continue offloading. We will continue to follow. YULI Sutton/BRIT /[id number]
--- NOTE | 2019-05-21 14:28 | Diagnostic Imaging Report ---
Chest, 1 view, 05/21/2019. History: The thorax. Comparison: 05/19/2019. Findings: The cardiomediastinal silhouette and pulmonary vasculature are within normal limits for a portable exam. 2 right-sided chest tubes are present. Right pneumothorax visualized at the apex and lung base is unchanged in appearance. There are opacities are present lung bases. Right IJ central line and left IJ dialysis catheter are present terminating near the cavoatrial junction. There are no acute osseous or soft tissue abnormalities. Impression: Stable right pneumothorax. Interval placement of left IJ nontunneled dialysis catheter. Signed by: Alex Garcia on 05/21/2019 2:25 PM
[2019-05-21] MEDS: FUROSEMIDE 40 MG TAB PO SCH (17:13)
[2019-05-21] MEDS: CYANOCOBALAMIN INJ 1,000 MCG/ML VIAL IM SCH (17:14)
[2019-05-21] MEDS: FOLIC ACID 1 MG TAB PO SCH (17:14)
--- NOTE | 2019-05-21 17:23 | NUR ---
Nutrition Intervention Note RD Recommendation(s) for Physician: -Continue current diet per MD -Nepro supplement 6 x per day per MD- mixed hernandez flavor when available -Consider an appetite stimulant Pt meets criteria for severe protein calorie malnutrition Plan of Care: RD following, monitoring for tolerance and adequacy. ONS. Nutrition reason for involvement: follow up RD Assessment 05/21: Pt seen for follow up. Pt s/p HD tx today, has chest tube in place 2/2 post operative pneumothorax. Pt with fair intake and poor appetite, 50-75% of meals per FS. Pt with 0% intake of lunch tray at time of visit, states he did not like the meal today and that he does not like vanilla flavored Nepro. Spoke with prepared foods production team member, plan to obtain mixed hernandez Nepro per pt preference. Encouraged po intake of meals and supplements, pt verbalized understanding. Pt denies GI distress. Pt discussed during am rounds and discussed with RN. Chart reviewed. Will continue to monitor. 05/16: Follow up: Pt was seen resting within the ICU. The pt had surgery performed yesterday, currently on clears. Spoke about pt in rounds, pt will receive dialysis today and wound debridement tmrw. Will continue to monitor. 05/14: Follow up/consult: Pt was seen finishing his breakfast, he consumed 100% of his breakfast and stated that he could even eat some more. Received consult from MD, wanted the pt to consume Nepro supplement twice at each meal, this order was placed within [employer]. Pt denied N/V/C/D/ chewing or swallowing issues at this time. Thoracoscopy or open drainage will be arranged per MD. Will continue to monitor. (05/09/2019) Chart reviewed. Labs and meds reviewed. Pt is a 58 year old male admitted with anemia, ESRD, pleural effusion, and pneumonia. Pt is currently NPO. Pt was unable to quantify PO intake amount prior to admission at time of visit. Pt mentioned he had lost weight and used to weigh 150 lbs 2 months ago. Pt currently has a weight of 139 lbs in chart. If accurate, this would be a 7% wt loss in 2 months significant weight loss. No N/V or chewing/swallowing issues noted. Recommend Nepro for added nutrition when diet advances. Will continue to monitor. Principal Problems/Diagnoses: anemia, ESRD, pleural effusion, and pneumonia PMH: HTN, high cholesterol, ESRD, anemia of chronic disease GI: flat,round, non-tender LBM: 05/21 Skin: wound on chest and foot Labs: 05/21: Cr 3.84 Meds: vitamin B12, folic acid, lasix, carafate, reglan, morphine, colace, zofran Ht: 72 in (per pt) Wt:139 lb 05/14: 137 lbs BMI: 18.8 kg/m2 IBW: 178 lb Malnutrition Evaluation (05/19/2019) Patient meets criteria for moderate protein calorie malnutrition. Energy intake: <75% for > 7 days Weight loss: 7% weight loss in 2 months Fat loss: moderate, hollowing of eyes Muscle loss: Moderate lower extremities Supporting Evidence: Fluid accumulation: no accumulation identified per MD note Functional Status: unable to evaluate Nutrition Prescription (Diet Order): 1800 ADA, Renal Estimated Nutritional Needs: 2047-1225 calories/day (30-35 kcal/kg CBW) 76-95 g protein/day (1.2-1.5 g pro/kg CBW) Diet Adequacy: not meeting kcal needs, not meeting protein needs Tolerance: tolerating diet Diet Education Needs Assessment: Diet education not indicated, patient on temporary/transition diet. Nutrition Care Level: moderate Nutrition Diagnosis: Unintended weight loss related to predicted h/o inadequate energy intake related to 7% weight loss in 2 months. Goal: Patient will meet 75-100% of estimated needs by follow up Progress: progressing Interventions: -mineral (Phos, K, Na) modified diet, Commercial beverage Monitoring/Evaluation: -Total energy intake, Total protein intake, Modified diet, Liquid supplement, Weight change Signed: Nancy Tellez RD, LD, [facility]
[2019-05-21] MEDS: HYDRALAZINE HCL 20 MG/ML VIAL IV PRN (18:44)
--- NOTE | 2019-05-21 19:46 | NUR ---
DAY SHIFT RN MIKA MISTAKENLY CHARTED SEPSIS SCREENING @ 2170 UNDER FELIZ DOZIER'S LOGIN ID.
[2019-05-21] MEDS: DEXTROSE 50% SYRINGE 50 ML IV PRN (21:02)
--- NOTE | 2019-05-21 21:04 | NUR ---
called and left a message to dr Sow, patient blood sugar eariler was 30, and lethargic, gave dex 50% IV and re check blood sugar and its 220. awaiting MD to call back if any further order.
[2019-05-21] MEDS: AMOXICILLIN 250 MG CAP PO SCH (21:13)
[2019-05-21] MEDS: PANTOPRAZOLE SOD 40 MG TABEC PO SCH (21:15)
[2019-05-21] MEDS: CLARITHROMYCIN 500 MG TAB PO SCH (21:39)
--- NOTE | 2019-05-21 22:52 | NUR ---
dr Pruitt covering dr Sow, and he is aware about patient was having episode of low blood sugar. no order obtained. patient is stable now.
[2019-05-21] MEDS: MORPHINE SULFATE 2 MG/ML SYR 1ML IV PRN (23:29)
[2019-05-22] VITALS (11 sets, daily range): BP systolic 114–133; BP diastolic 53–70
--- NOTE | 2019-05-22 00:45 | NUR ---
Internal Medicine Progress Note PCP: [facility]: covering for Dr. Naseem Sow. DATE: 05/21/2019 SUBJECTIVE: CHEST tubes x 2 (+) air leak continued not eating much glucose levels to 30, s/p D50 iv REVIEW OF SYSTEMS: No headaches, no bleeding. OBJECTIVE: VITAL SIGNS: vital signs noted, reviewed per the chart record. GENERAL: no acute distress, alert, calm, but weak. HEENT: Normocephalic, atraumatic. NECK: Supple, throat midline. LUNGS: Bilateral air entry, decreased breath sounds at bases, decreased effort. CARDIOVASCULAR: S1, S2. No murmurs, rubs, or gallops. ABDOMINAL: Soft, nontender. EXTREMITIES: No clubbing. No cyanosis. small ankle/foot edema. INTEGUMENT: No rash. No purpura. LABORATORY DATA: k 3.8, cr 3.84, 7 wbc, hct 29, plt 170 IMPRESSION AND PLAN: 1. Right foot ulcer. 2. Diabetic neuropathy. 3. Fluid overload. 4. Pleural effusions. 5. Anemia of chronic disease. 6. Hypertension. 7. End-stage renal disease. 8. Hyperlipidemia. Maintain chest tubes in, postoperative care per surgeon. +air leak noted Pneumothorax care per designated Antibiotics ongoing Negative fluid balance as tolerated by Nephrology. Anemia noted, for treatment Maximizing diet, better
[2019-05-22] MEDS: ALBUTEROL SULF 0.083% NEB SOLN 3 ML NEB NEB SCH ×4 (01:00→20:15)
[2019-05-22] MEDS: IRON SUCROSE 100 MG in SODIUM CHLORIDE 0.9% 100 ML 100 ML IV SCH (04:58)
[2019-05-22] MEDS: METOCLOPRAMIDE HCL 10 MG/2ML VIAL IV SCH ×3 (06:00→17:57)
[2019-05-22] MEDS: MORPHINE SULFATE 2 MG/ML SYR 1ML IV PRN (06:34)
[2019-05-22] MEDS: SUCRALFATE 1 GM TAB PO SCH ×4 (07:30→20:41)
[2019-05-22] MEDS: INSULIN LISPRO 100 UNIT/1 ML 3ML VIAL SQ SCH ×4 (07:30→20:18)
[2019-05-22] MEDS: SEVELAMER CARBONATE 800 MG TAB PO SCH ×3 (08:00→17:57)
[2019-05-22] MEDS: FUROSEMIDE 40 MG TAB PO SCH (09:00)
[2019-05-22] MEDS: DOCUSATE SODIUM 100 MG CAP PO SCH ×3 (09:00→20:43)
[2019-05-22] MEDS: CRESTOR 10MG PO SCH ×2 (09:00→20:42)
[2019-05-22] MEDS: FOLIC ACID 1 MG TAB PO SCH (09:00)
[2019-05-22] MEDS: METOPROLOL TARTRATE 25 MG TAB PO SCH ×2 (09:00→20:42)
[2019-05-22] MEDS: HYDRALAZINE HCL 25 MG TAB PO SCH ×2 (09:00→17:52)
[2019-05-22] MEDS: LOSARTAN POTASSIUM 25 MG TAB PO SCH ×2 (09:00→17:00)
[2019-05-22] MEDS ORDERED: SODIUM CHLORIDE 0.9% 500ML 500 ML ONE (09:37)
[2019-05-22] MEDS ORDERED: LIDOCAINE HCL 1% LOCAL INJ 20 ML VIAL ONE (09:37)
[2019-05-22] MEDS ORDERED: IOPAMIDOL 300MG/ML 100 ML INFUS..BTL IV ONE (09:39)
[2019-05-22] MEDS: MUPIROCIN 2% OINT 22 GM TUBE TOP SCH ×2 (09:51→17:53)
[2019-05-22] MEDS: CYANOCOBALAMIN INJ 1,000 MCG/ML VIAL IM SCH (09:51)
[2019-05-22] MEDS: PANTOPRAZOLE SOD 40 MG TABEC PO SCH ×2 (09:51→20:42)
--- NOTE | 2019-05-22 11:00 | NUR ---
Chest tubes to water seal per Dr Freeman. Slight bubbling is remaining intermittent.
[2019-05-22] MEDS ORDERED: MIDAZOLAM HCL 2 MG/2 ML VIAL ONE (11:42)
[2019-05-22] MEDS ORDERED: FENTANYL CITRATE/PF 100MCG/2 ML INJ ONE (11:42)
--- NOTE | 2019-05-22 12:10 | NUR ---
Consult for Dr Urrutia called to Dr Urrutia's office, message left. Addendum: 05/22/19 at 1855 by Miroslava Yates RN Consult was not called to Dr Urrutia, this document was entered on wrong patient.
[2019-05-22] MEDS ORDERED: HEPARIN SOD (PORCINE) 1000 UNIT/ML 30ML ONE (12:18)
[2019-05-22] MEDS ORDERED: ALTEPLASE RECOMBINANT 2 MG/2 ML VIAL ONE (12:47)
[2019-05-22] MEDS: ACETYLCYSTEINE 20% INHAL SOLN 30 ML VIAL INH SCH ×2 (13:23→20:15)
--- NOTE | 2019-05-22 13:43 | Diagnostic Imaging Report ---
Chest, 2 views. Clinical history: Evaluate prior to removal of chest tube. Comparison study: May 20, 2019. Findings: The cardiacs foot is unremarkable. 2 right-sided chest tubes are seen in place with some cystic lucency in the right lung base, possibly large blebs versus air within a hydropneumothorax. No apical pneumothorax is seen. The left lung is clear. The support lines and tubes remain in place. Degenerative changes are seen. Impression: Cystic lucency in the right lung base, either blebs within the lung or gas within a hydropneumothorax. The appearance is stable from previous. Signed by: Boom Valderrama MD on 05/22/2019 1:41 PM
[2019-05-22] MEDS: AMOXICILLIN 250 MG CAP PO SCH ×2 (14:32→20:41)
[2019-05-22] MEDS: CLARITHROMYCIN 500 MG TAB PO SCH ×2 (14:32→22:10)
--- NOTE | 2019-05-22 15:26 | Progress Note ---
DATE: 05/22/2019 SUBJECTIVE: The patient is seen at bedside, doing somewhat better. Decreased discomfort to the right lower extremity. Denies any history of fever or chills. OBJECTIVE: VITAL SIGNS: Afebrile, pulse rate 84, respirations 20, blood pressure 117/61, and O2 saturation 99%. EXTREMITIES: Ulceration to the right foot continues to improve down to dermis, less than 1.5 cm in diameter. Periwound cellulitis present, a lot less pain. Pedal pulses palpable, but diminished. LABORATORY DATA: Labs noted. ASSESSMENT: Peripheral neuropathy, grade 1 ulceration, healing with cellulitis. PLAN: Continue Bactroban ointment. Continue offloading. Okay to start weightbearing with the aid of a surgical shoe. We will continue to follow. YULI Sutton/BRIT /[id number]
--- NOTE | 2019-05-22 15:30 | NUR ---
Dr Freeman in with pt. Orders to resume suction to chest tubes at neg 20 cm and chest xray QAM.
--- NOTE | 2019-05-22 15:51 | NUR ---
CALL TO [facility] WITH DR CAZARES TO ASK FOR LTAC EVAL
--- NOTE | 2019-05-22 17:16 | Diagnostic Imaging Report ---
AV fistula declot, 05/22/2019. History: ESRD, clotted AV fistula. Comparison: None available. [employer] Operations Engineer: Dr. Garcia. Medication: 5 cc of 1% lidocaine without epinephrine. Conscious sedation: None. EBL: <5 cc. Fluoro time: 9.2 min. Fluoroscopy dose (DAP): 155.5 cGy-cm2. Specimen: None. Technique: After informed consent and timeout procedure, the access site was prepped and draped with the standard maximal sterile barrier technique. The skin was anesthetized with lidocaine. The left forearm fistula was accessed using a micropuncture set towards the venous outflow. A 4 Moldovan sheath was placed for multiple contrast runs of the left arm and central venous system. A 0.035-in. wire was advanced through the micropuncture sheath into the vein. A 6 Moldovan sheath was placed. The patient was given 5000 units of heparin intravenously. A Trerotola device was used for mechanical thrombectomy with simultaneous infusion within the fistula of 2 mg of TPA. Second access was obtained within the fistula towards the arterial venous anastomosis, with a second 6 Moldovan sheath placed. The anastomosis was crossed with a Kumpe catheter and Glidewire. The anastomosis was then angioplastied using a 6 mm x 4 cm balloon. Follow-up DSA run was performed. Both sheaths were removed and hemostasis was obtained with resorbable pursestring suture. Dressing was applied. The patient tolerated the procedure well without evidence of complication. Findings: 1. Thrombus was present within the fistula from the anastomosis to the mid forearm. No outflow or central venous stenosis was identified. Left IJ temporary dialysis catheter is noted. Clot was successfully cleared from the fistula using combination of mechanical and chemical thrombolysis as described above. 2. Focal 60 % stenosis of the arterial venous anastomosis was identified and treated with angioplasty, with good angiographic result. IMPRESSION: Successful left forearm AV fistula declot using fluoroscopic guidance guidance. Signed by: Alex Garcia on 05/22/2019 5:13 PM
--- NOTE | 2019-05-22 17:35 | Progress Note ---
DATE: 05/22/2019 CONSULTANTS: 1. Dr. Rivas with Nephrology. 2. Dr. Fraire with Pulmonary. 3. Dr. Lockhart with GI. 4. Dr. Freeman with CV surgeon. 5. Dr. Amin with Podiatry. CHIEF COMPLAINT: Generalized weakness and shortness of breath due to recurrent fluid overload and pulmonary effusion. SUBJECTIVE: The patient was seen in the room, status post AV fistula revision/declotting per CV surgeon. He denies any chest pain, no bleeding noted from the AV fistula site. He denies any shortness of breath, chest pain, or fever. PHYSICAL EXAMINATION: VITAL SIGNS: Temperature 98.7, pulse is 85, respirations 20, blood pressure 114/55, and pulse ox is 99% on room air. GENERAL: No acute distress. HEENT: Normocephalic and atraumatic. NECK: Supple. LUNGS: With decreased breath sounds. CARDIOVASCULAR: Regular rate and rhythm. GI: Soft and nontender. NEUROLOGIC: Alert, awake, and oriented x3. MUSCULOSKELETAL: Moves all extremities. SKIN: Dry. IMAGING: Chest x-ray shows cystic lucency in the right lung base, either blebs within the lung or gas within the hydropneumothorax. The appearance is stable from previous. IMPRESSION: 1. Dyspnea due to recurrent pleural effusion. Status post thoracentesis and VATS per CV surgeon. Chest tube in place. 2. Anemia of chronic diseases. Status post 4 units of PRBCs. Hemoglobin is stable. 3. Hypertension. Continue on home medication. Hydralazine as needed. 4. End stage renal disease. On dialysis on Sunday, Sunday, and Sunday per Nephrology. 5. Hypokalemia, replaced. 6. Iron deficiency anemia. Continue with supplements. 7. High cholesterol. On statin. 8. Poor appetite and dysphagia. Defer to GI. 9. Right foot diabetic ulcer. Status post bedside debridement. Offloading and wound care at bedside. 10. Deep vein thrombosis prophylaxis. No chemical anticoagulation due to anemia and surgical procedures. PLAN: To continue current treatment. Chest tube is still in place. Further recommendations per Pulmonary and CV surgeon. Dictated by HIGINIO Dunn Heather Sow MD MY/MODL /[id number] Seen and examined on 05/22/2019. Agree with the findings and plan as documented by HIGINIO Moise. GILDA
[2019-05-22] MEDS: NIFEDIPINE CR 30 MG TAB PO SCH (20:42)
[2019-05-22] MEDS: ACETAMINOPHEN 325 MG TAB PO PRN (20:43)
--- NOTE | 2019-05-22 22:23 | Progress Note ---
DATE: CONSULT REASON: Loculated pleural effusion, now status post decortication. SUBJECTIVE: Feeling well. Ambulating. PHYSICAL EXAMINATION: CARDIAC: Shows regular rate and rhythm. LUNGS: Breath sounds are full on the left, but somewhat diminished on the right. The Pleur-Evac has a small air leak. It is on water-seal at present. ABDOMEN: Benign. LABORATORY DATA: Chest x-ray, PA and lateral, reviewed with Radiology. There may be a loculated pneumothorax at the right base. IMPRESSION: Possible loculated pneumothorax at the right base, which is not symptomatic. PLAN: We will continue suction for now with daily chest x-ray. MD MELVIN Estrada/BRIT /[id number]
[2019-05-23] VITALS (9 sets, daily range): BP systolic 85–131; BP diastolic 47–59
[2019-05-23] MEDS: METOCLOPRAMIDE HCL 10 MG/2ML VIAL IV SCH ×4 (00:05→16:37)
[2019-05-23] MEDS: ALBUTEROL SULF 0.083% NEB SOLN 3 ML NEB NEB SCH ×4 (01:15→20:00)
[2019-05-23] MEDS: ACETAMINOPHEN 325 MG TAB PO PRN ×4 (05:20→23:05)
[2019-05-23] MEDS: IRON SUCROSE 100 MG in SODIUM CHLORIDE 0.9% 100 ML 100 ML IV SCH (05:20)
[2019-05-23 05:56] LABS: ANION GAP 13.7 mmol/L (8-16); CALCIUM 8.3 mg/dL (8.4-10.2); CREATININE, SERUM 4.56 mg/dL (0.72-1.25); PHOSPHORUS 1.7 MG/DL (2.3-4.7); POTASSIUM 4.7 mmol/L (3.5-5.1)
[2019-05-23] MEDS: ACETYLCYSTEINE 20% INHAL SOLN 30 ML VIAL INH SCH ×2 (06:56→20:00)
[2019-05-23] MEDS: INSULIN LISPRO 100 UNIT/1 ML 3ML VIAL SQ SCH ×4 (07:30→21:00)
[2019-05-23] MEDS: SEVELAMER CARBONATE 800 MG TAB PO SCH ×3 (07:35→16:27)
[2019-05-23] MEDS: SUCRALFATE 1 GM TAB PO SCH ×4 (07:35→21:00)
[2019-05-23] MEDS ORDERED: ONDANSETRON HCL 4 MG ORAL DISINTEGRATING TAB PO PRN (08:15)
[2019-05-23] MEDS: CYANOCOBALAMIN INJ 1,000 MCG/ML VIAL IM SCH (08:49)
[2019-05-23] MEDS: DOCUSATE SODIUM 100 MG CAP PO SCH ×3 (08:49→21:00)
[2019-05-23] MEDS: AMOXICILLIN 250 MG CAP PO SCH ×2 (08:49→21:00)
[2019-05-23] MEDS: CLARITHROMYCIN 500 MG TAB PO SCH ×2 (08:49→21:00)
--- NOTE | 2019-05-23 08:49 | Diagnostic Imaging Report ---
Chest, 1 view, 05/23/2019. History: Chest tube, pneumothorax. Comparison: 05/22/2019. Findings: The cardiomediastinal silhouette and pulmonary vasculature are within normal limits for a portable exam. 2 right-sided chest tubes remain in place with pneumothorax visible at the right apex and lung base laterally, unchanged in appearance. Bibasilar opacities are noted. Bilateral IJ catheters are unchanged in position. There are no acute osseous or soft tissue abnormalities. Impression: No significant change in right pneumothorax. Signed by: Alex Garcia on 05/23/2019 8:46 AM
[2019-05-23] MEDS: FUROSEMIDE 40 MG TAB PO SCH (08:50)
[2019-05-23] MEDS: CRESTOR 10MG PO SCH ×2 (08:50→21:00)
[2019-05-23] MEDS: PANTOPRAZOLE SOD 40 MG TABEC PO SCH ×2 (08:50→21:00)
[2019-05-23] MEDS: MUPIROCIN 2% OINT 22 GM TUBE TOP SCH ×2 (08:50→17:35)
[2019-05-23] MEDS: FOLIC ACID 1 MG TAB PO SCH (08:50)
[2019-05-23] MEDS: LOSARTAN POTASSIUM 25 MG TAB PO SCH ×2 (09:00→16:25)
[2019-05-23] MEDS: METOPROLOL TARTRATE 25 MG TAB PO SCH ×2 (09:00→21:00)
[2019-05-23] MEDS: HYDRALAZINE HCL 25 MG TAB PO SCH ×2 (09:00→16:25)
--- NOTE | 2019-05-23 11:59 | Progress Note ---
DATE: 05/23/2019 CONSULTANTS: 1. Dr. Rivas with Nephrology. 2. Dr. Fraire with Pulmonary. 3. Dr. Lockhart with GI. 4. Dr. Freeman with CV surgeon. 5. Dr. Amin with Podiatry. CHIEF COMPLAINT: Generalized weakness and shortness of breath due to recurrent fluid overload/pulmonary effusion. SUBJECTIVE: The patient was seen in his room while HD in progress. He is resting with no acute distress. Denies any shortness of breath, chest pain, fever. Chest tube still in place with suction. PHYSICAL EXAMINATION: VITAL SIGNS: Temperature is 99.1, pulse is 87, respirations 20, blood pressure 85/54, pulse ox is 99% on room air. GENERAL: No acute distress, fatigue and malnourished. HEENT: Normocephalic and atraumatic. NECK: Supple. LUNGS: With decreased breath sounds. CARDIOVASCULAR: Regular rate and rhythm. GI: Soft and nontender. NEUROLOGIC: Alert, awake, and oriented x3. MUSCULOSKELETAL: Moves all extremities. SKIN: Dry. LABORATORY DATA: Sodium 132, potassium 4.7, BUN is 26, creatinine is 4.56, GFR is 13, calcium is 8.3, phosphorus is 1.7. IMAGING DATA: Chest x-ray shows nonsignificant change in the right pneumothorax. IMPRESSION: 1. Dyspnea due to recurrent pleural effusion. Status post thoracentesis to the left lung and VATS per CV surgeon. Chest tube still in place, draining. 2. Anemia of chronic diseases. Status post 4 units of PRBCs transfusion. Hemoglobin is stable. We will continue to monitor closely. 3. Hypertension. Continue home medication. Hydralazine as needed. 4. End-stage renal disease. On dialysis Sunday, Sunday, Sunday per other Nephrology. 5. Hypokalemia. Replaced. 6. Iron deficiency anemia. Continue supplements. 7. High cholesterol. On statin. 8. Poor appetite and dysphagia. Defer to GI, status post esophagogastroduodenoscopy. HIDA scan shows chronic cholecystitis. 9. Right foot diabetic ulcer. Status post bedside debridement. Offloading and wound care at bedside. 10. Low protein malnutrition. Increase p.o. protein intake. Nutrition on the case. 11. Deep vein thrombosis prophylaxis. No chemical anticoagulation due to anemia. PLAN: Continue current treatment. Chest tube is still draining and in place. We will discuss with consultants regarding plan of care. Dictated by Ambar Moise, HIGINIO MD RENEE Trevizo/HAIL /[id number]
--- NOTE | 2019-05-23 14:42 | NUR ---
PATIENT OUT OF BED TO CHAIR.
--- NOTE | 2019-05-23 15:01 | Progress Note ---
DATE: 05/23/2019 SUBJECTIVE: The patient is seen at bedside, doing somewhat better. Still not able to stand on his own secondary to the muscle weakness. He is denying any history of fever, chills, nausea, or vomiting. OBJECTIVE: VITAL SIGNS: Afebrile, pulse rate 87, respirations 20, blood pressure 185/54, and O2 saturation 99%. EXTREMITIES: Ulceration to the right foot continues to improve down to dermis. Periwound cellulitis present, less than 1.5 cm in diameter. Pedal pulses palpable. Skin temperature warm to touch. Pulses are little bit diminished. ASSESSMENT: Grade 1/2 ulceration, right foot with diabetic neuropathy and end-stage renal disease. PLAN: We will continue Bactroban ointment. Continue range of motion exercises. Can start weightbearing with the aid of surgical shoe. He is feeling better. YULI Sutton/BRIT /[id number]
--- NOTE | 2019-05-23 17:41 | NUR ---
Nutrition Intervention Note RD Recommendation(s) for Physician: -Continue current diet per MD -Encourage PO intake and provide Glucerna nutrition supplements with meals Pt meets criteria for severe protein calorie malnutrition Plan of Care: RD following, monitoring for tolerance and adequacy. Nutrition Supplement Nutrition reason for involvement: MD consult, follow up RD Assessment 05/23: RD received consult for nutrition assessment. Per RN, pt is eating well today and consumed 100% of his breakfast and lunch with nutrition supplements. No N/V per RN. Pt has various weights in chart. On 05/17, pt weighed 136 lbs, 121 lbs on 05/18 and 110 lbs on 05/22. Of note, pt is receiving lasix per medications in chart. Will continue to monitor. 05/21: Pt seen for follow up. Pt s/p HD tx today, has chest tube in place 2/2 post operative pneumothorax. Pt with fair intake and poor appetite, 50-75% of meals per FS. Pt with 0% intake of lunch tray at time of visit, states he did not like the meal today and that he does not like vanilla flavored Nepro. Spoke with natural foods clerk, plan to obtain mixed hernandez Nepro per pt preference. Encouraged po intake of meals and supplements, pt verbalized understanding. Pt denies GI distress. Pt discussed during am rounds and discussed with RN. Chart reviewed. Will continue to monitor. 05/16: Follow up: Pt was seen resting within the ICU. The pt had surgery performed yesterday, currently on clears. Spoke about pt in rounds, pt will receive dialysis today and wound debridement tmrw. Will continue to monitor. 05/14: Follow up/consult: Pt was seen finishing his breakfast, he consumed 100% of his breakfast and stated that he could even eat some more. Received consult from MD, wanted the pt to consume Nepro supplement twice at each meal, this order was placed within [facility]. Pt denied N/V/C/D/ chewing or swallowing issues at this time. Thoracoscopy or open drainage will be arranged per MD. Will continue to monitor. (05/09/2019) Chart reviewed. Labs and meds reviewed. Pt is a 58 year old male admitted with anemia, ESRD, pleural effusion, and pneumonia. Pt is currently NPO. Pt was unable to quantify PO intake amount prior to admission at time of visit. Pt mentioned he had lost weight and used to weigh 150 lbs 2 months ago. Pt currently has a weight of 139 lbs in chart. If accurate, this would be a 7% wt loss in 2 months significant weight loss. No N/V or chewing/swallowing issues noted. Recommend Nepro for added nutrition when diet advances. Will continue to monitor. Principal Problems/Diagnoses: anemia, ESRD, pleural effusion, and pneumonia PMH: HTN, high cholesterol, ESRD, anemia of chronic disease GI: flat,round, non-tender last recorded BM 05/23 Skin: wound on chest and foot Labs: 05/23: Na 132, Creat 4.56, Ca 8.3, Phos 1.7 05/21: Cr 3.84 Meds: reglan, insulin, renvela, colace, protonix, lasix, folic acid, vitamin B12, IV iron, metroprolol, zofran, NaCl Ht: 72 in (per pt) Wt: 110 lbs (05/22) 121 lbs (05/18) 136 lbs (05/17), 137 lbs (05/14) 139 lbs (05/07) Of note, pt is receiving lasix per medications in chart BMI: 14.9 kg/m2 IBW: 178 lb Malnutrition Evaluation (05/23/2019) Patient meets criteria for severe protein calorie malnutrition. Energy intake: Adequate PO intake reported today. Pt was previously consuming <75% of meals for > 7 days Weight loss: 7% weight loss in 2 months Fat loss: moderate, hollowing of eyes Muscle loss: Moderate lower extremities Supporting Evidence: Fluid accumulation: no accumulation identified per MD note Functional Status: unable to evaluate Nutrition Prescription (Diet Order): 1800 ADA, Renal Estimated Nutritional Needs: 9075-2683 calories/day (30-35 kcal/kg CBW) 60-75 g protein/day (1.2-1.5 g pro/kg CBW) Diet Adequacy: Pt ate 100% of breakfast and lunch today per RN Tolerance: tolerating diet Diet Education Needs Assessment: Diet education not indicated Nutrition Care Level: moderate Nutrition Diagnosis: Severe protein kcal malnutrition related to chronic illness as evidenced by 7% weight loss in 2 months, moderate muscle and fat depletion, and pt previously consuming <75% of meals of > 7 days. Goal: Patient will meet 75-100% of estimated needs by follow up Progress: progressing (pt consumed 100% of meals today per RN) Interventions: -mineral (Phos, K, Na), carbohydrate - modified diet, Commercial beverage Monitoring/Evaluation: -Total energy intake, Total protein intake, Modified diet, Liquid supplement, Weight change Signed: Carmella Christopher RD, LD
--- NOTE | 2019-05-23 19:30 | NUR ---
patient received awake, alert, lying quietly in bed. vss. no c/o pain noted. right chest tubes remain to 20 cm suction per orders. lrg loose/brown bm noted at this time. skin care provided. pm assessment complete. pm assessment complete. patient instructed to call for assistance when needed.
[2019-05-23] MEDS: NIFEDIPINE CR 30 MG TAB PO SCH (21:00)
[2019-05-24] VITALS (8 sets, daily range): BP systolic 112–165; BP diastolic 41–72
[2019-05-24] MEDS: ALBUTEROL SULF 0.083% NEB SOLN 3 ML NEB NEB SCH ×4 (01:00→19:12)
--- NOTE | 2019-05-24 03:59 | NUR ---
lrg loose bm noted. bath and skin care provided. no further c/o pain noted throughout the night. respirations even and unlabored. right chest tubes remain to 20 cm suction with minimal output noted.
[2019-05-24] MEDS: IRON SUCROSE 100 MG in SODIUM CHLORIDE 0.9% 100 ML 100 ML IV SCH (04:06)
[2019-05-24] MEDS: METOCLOPRAMIDE HCL 10 MG/2ML VIAL IV SCH ×4 (05:20→17:17)
--- NOTE | 2019-05-24 07:00 | NUR ---
RECEIVED BEDSIDE REPORT FROM MOWER SHARPENER RN FARHAT. PT DENIES NEEDS AT THIS TIME.
[2019-05-24] MEDS: INSULIN LISPRO 100 UNIT/1 ML 3ML VIAL SQ SCH ×4 (07:30→21:08)
[2019-05-24] MEDS: ACETYLCYSTEINE 20% INHAL SOLN 30 ML VIAL INH SCH ×2 (08:07→19:27)
[2019-05-24] MEDS: CYANOCOBALAMIN INJ 1,000 MCG/ML VIAL IM SCH (08:42)
[2019-05-24] MEDS: SUCRALFATE 1 GM TAB PO SCH ×4 (08:42→20:41)
[2019-05-24] MEDS: SEVELAMER CARBONATE 800 MG TAB PO SCH ×3 (08:42→17:17)
[2019-05-24] MEDS: CRESTOR 10MG PO SCH ×2 (08:44→20:41)
[2019-05-24] MEDS: LOSARTAN POTASSIUM 25 MG TAB PO SCH ×2 (08:44→17:17)
[2019-05-24] MEDS: HYDRALAZINE HCL 25 MG TAB PO SCH ×2 (08:44→17:16)
[2019-05-24] MEDS: DOCUSATE SODIUM 100 MG CAP PO SCH ×3 (08:44→20:41)
[2019-05-24] MEDS: CLARITHROMYCIN 500 MG TAB PO SCH ×2 (08:44→20:41)
[2019-05-24] MEDS: FOLIC ACID 1 MG TAB PO SCH (08:44)
[2019-05-24] MEDS: FUROSEMIDE 40 MG TAB PO SCH (08:45)
[2019-05-24] MEDS: METOPROLOL TARTRATE 25 MG TAB PO SCH ×2 (08:45→20:41)
[2019-05-24] MEDS: PANTOPRAZOLE SOD 40 MG TABEC PO SCH ×2 (08:45→20:41)
[2019-05-24] MEDS: AMOXICILLIN 250 MG CAP PO SCH ×2 (08:46→20:41)
--- NOTE | 2019-05-24 08:49 | Diagnostic Imaging Report ---
Chest, 1 view, 05/24/2019. History: Follow-up status post decortication. Chest tubes. Comparison: 05/22/2019. Findings: The cardiomediastinal silhouette and pulmonary vasculature are within normal limits for a portable exam. 2 right-sided chest tubes remain in place with pneumothorax visible at the right lung base, apparently loculated, with pleural line less conspicuous in the right apex unchanged in appearance. Increased patchy density in the right lower lobe. Bilateral IJ catheters are unchanged in position. There are no acute osseous or soft tissue abnormalities. Impression: Allowing for technical differences, significant change in a left for technical differences, right apical pneumothorax appears decreased but not resolved. No change in loculated right lower hemithorax. Increased density in the right lower lobe may represent developing superimposed infection, or evolving pulmonary contusion/atelectasis. Signed by: Dr. Lui Vidal M.D. on 05/24/2019 8:46 AM
--- NOTE | 2019-05-24 15:30 | Progress Note ---
DATE: 05/24/2019 CONSULTANTS: 1. Dr. Rivas with Nephrology. 2. Dr. Fraire with Pulmonary. 3. Dr. Lockhart with GI. 4. Dr. Freeman with CV surgeon. 5. Dr. Amin with Podiatry. CHIEF COMPLAINT: Generalized weakness and recurrent shortness of breath due to fluid overload. SUBJECTIVE: The patient is seen in the room with no acute distress. Chest tube still in place to let wall suction. He denies any chest pain, shortness of breath, fever, chills, cough. PHYSICAL EXAMINATION: VITAL SIGNS: Temperature 97.8, pulse is 86, respirations 20, blood pressure 112/58, pulse ox is 100% on room air. GENERAL: Fatigue and well nourished. HEENT: Normocephalic, atraumatic. NECK: Supple. LUNGS: With decreased breath sounds. Chest tube x2 to the right side. CARDIOVASCULAR: Regular rate and rhythm. GI: Soft and nontender. NEUROLOGIC: Alert, awake, and oriented x3. MUSCULOSKELETAL: Moves all extremities. SKIN: Dry. LABORATORY DATA: Sodium 132, potassium 4.7, creatinine 4.56, estimated GFR is 13, phosphorus is 1.7. Chest x-ray shows right apical pneumothorax appears decreased but not resolved. No change in loculated right lower hemithorax. Increased density in the right lower lobe may represent developing superimposed infection or evolving pulmonary contusion or atelectasis. IMPRESSION: 1. Dyspnea due to recurrent pleural effusion. Status post thoracentesis to the left lung and VATS to the right. CV surgeon with chest tube in place, draining. Pulmonary has been consulted. 2. Anemia of chronic disease. Status post 4 units of PRBCs transfusion. Hemoglobin is stable. We will continue to monitor closely and transfuse as needed. 3. Hypertension. Continue home medication. 4. End-stage renal disease. Dialysis Sunday, Sunday, Sunday per Nephrology. 5. Hypokalemia replaced. 6. Iron deficiency. Continue supplements. 7. High cholesterol on statin. 8. Poor appetite and dysphagia. Defer to GI. HIDA scan showed chronic cholecystitis. On Reglan. 9. Right foot ulcer status post bedside debridement. Wound care daily. 10. Low protein malnutrition. Increase p.o. protein intake. Nutrition is on the case. 11. Debility. We will consult PT to evaluate and treat. 12. Deep vein thrombosis prophylaxis. No chemical anticoagulation due to anemia. PLAN: Continue current treatment. He is on amoxicillin and Biaxin. CT to evaluate. CT planned in 1 to 2 days. Dictated by HIGINIO Dunn Heather Sow MD MY/MODL /[id number]
[2019-05-24] MEDS: ACETAMINOPHEN 325 MG TAB PO PRN (20:41)
[2019-05-24] MEDS: NIFEDIPINE CR 30 MG TAB PO SCH (20:41)
[2019-05-25] VITALS (8 sets, daily range): BP systolic 98–127; BP diastolic 50–58
[2019-05-25] MEDS: METOCLOPRAMIDE HCL 10 MG/2ML VIAL IV SCH ×5 (00:03→23:53)
[2019-05-25 05:14] LABS: BASOPHILS # (AUTO) 0.1 (0.0-0.1); BASOPHILS % 0.8 % (0.0-1.0); EOSINOPHILS # (AUTO) 0.3 (0.0-0.4); EOSINOPHILS % 3.3 % (0.0-6.0); HEMATOCRIT 24.4 % (38.2-49.6); LYMPHOCYTES # (AUTO) 1.5 (1.0-3.2); LYMPHOCYTES % 14.7 % (18.0-39.1); MEAN CORPUSCULAR HEMOGLOBIN 28.4 pg (28-32); MEAN CORPUSCULAR HGB CONC 32.8 g/dL (31-35); MEAN CORPUSCULAR VOLUME 86.5 fL (81-99); MONOCYTES # (AUTO) 1.1 (0.2-0.8); MONOCYTES % 10.4 % (4.4-11.3); NEUTROPHILS # (AUTO) 7.1 (2.1-6.9); NEUTROPHILS % 70.3 % (38.7-80.0); PLATELET COUNT 132 x10e3/uL (140-360); RED BLOOD COUNT 2.82 x10e6/uL (4.3-5.7); RED CELL DISTRIBUTION WIDTH 14.3 % (11.7-14.4)
[2019-05-25 05:42] LABS: ANION GAP 17.2 mmol/L (8-16); CALCIUM 7.9 mg/dL (8.4-10.2); CREATININE, SERUM 4.92 mg/dL (0.72-1.25); POTASSIUM 4.2 mmol/L (3.5-5.1)
[2019-05-25] MEDS: IRON SUCROSE 100 MG in SODIUM CHLORIDE 0.9% 100 ML 100 ML IV SCH (06:00)
[2019-05-25] MEDS: INSULIN LISPRO 100 UNIT/1 ML 3ML VIAL SQ SCH ×4 (07:10→20:49)
[2019-05-25] MEDS: ACETYLCYSTEINE 20% INHAL SOLN 30 ML VIAL INH SCH ×2 (07:17→19:10)
[2019-05-25] MEDS: ALBUTEROL SULF 0.083% NEB SOLN 3 ML NEB NEB SCH ×4 (07:17→19:00)
[2019-05-25] MEDS: SUCRALFATE 1 GM TAB PO SCH ×4 (07:43→20:47)
[2019-05-25] MEDS: SEVELAMER CARBONATE 800 MG TAB PO SCH ×3 (07:43→16:25)
[2019-05-25] MEDS: CYANOCOBALAMIN INJ 1,000 MCG/ML VIAL IM SCH (08:14)
[2019-05-25] MEDS: AMOXICILLIN 250 MG CAP PO SCH ×2 (08:14→20:46)
[2019-05-25] MEDS: LOSARTAN POTASSIUM 25 MG TAB PO SCH ×2 (08:15→16:22)
[2019-05-25] MEDS: METOPROLOL TARTRATE 25 MG TAB PO SCH ×2 (08:15→20:47)
[2019-05-25] MEDS: CLARITHROMYCIN 500 MG TAB PO SCH ×2 (08:15→20:47)
[2019-05-25] MEDS: FOLIC ACID 1 MG TAB PO SCH (08:15)
[2019-05-25] MEDS: HYDRALAZINE HCL 25 MG TAB PO SCH ×2 (08:15→16:22)
[2019-05-25] MEDS: CRESTOR 10MG PO SCH ×2 (08:15→20:47)
[2019-05-25] MEDS: PANTOPRAZOLE SOD 40 MG TABEC PO SCH ×2 (08:15→20:47)
[2019-05-25] MEDS: FUROSEMIDE 40 MG TAB PO SCH (08:15)
--- NOTE | 2019-05-25 09:35 | NUR ---
Dr. Fraire spoke to Dr. Freeman by phone while on unit to address patients current chest tubes and to notify Dr. Freeman right medial chest tube still with a current leak, Dr. Fraire states "per Dr. Freeman that patient to have a CT chest in AM and MD to reevaluate for possible removal of chest tubes". Will continue to monitor
--- NOTE | 2019-05-25 09:44 | Diagnostic Imaging Report ---
EXAMINATION: CHEST SINGLE (PORTABLE) INDICATION: Follow up s/p decortication, chest tubes COMPARISON: Chest radiograph 05/24/2019. FINDINGS: TUBES and LINES: Unchanged right upper and lower chest tubes. Left IJ hemodialysis catheter and right IJ central venous catheter terminate at the cavoatrial junction. LUNGS: Mild interstitial opacities, right greater than left. Patchy opacities in the right lower lung. No new consolidation. PLEURA: Slightly increased moderate right apical pneumothorax, measuring up to 1.8 cm and unchanged loculated right basilar pneumothorax. HEART AND MEDIASTINUM: The cardiomediastinal silhouette is unremarkable. BONES AND SOFT TISSUES: No acute osseous abnormality. UPPER ABDOMEN: No free air under the diaphragm. IMPRESSION: Right-sided chest tubes with moderate right pneumothorax, unchanged at the base, and slightly increased at the apex. Opacities in the right lower lung, which may represent atelectasis, contusion, or pneumonia in the appropriate clinical setting. Signed by: Dr. Amber Mitchell MD on 05/25/2019 9:42 AM
[2019-05-25 12:43] LABS: PLATELET MORPHOLOGY COMMENT FEW LARGE
--- NOTE | 2019-05-25 12:49 | Progress Note ---
DATE: 05/25/2019 CONSULTANTS: 1. Dr. Rivas with Nephrology. 2. Dr. Fraire with Pulmonary. 3. Dr. Lockhart with GI. 4. Dr. Freeman with CV surgeon. 5. Dr. Amin with Podiatry. CHIEF COMPLAINT: Generalized weakness and recurrent shortness of breath due to fluid overload. SUBJECTIVE: The patient is resting in bed with no acute distress. Chest tube draining some, continues to wall suction. He denies any chest pain, shortness of breath, fever, chills, or cough. PHYSICAL EXAMINATION: VITAL SIGNS: Temperature 98.0, pulse is 83, respirations 14, blood pressure 116/58, and pulse ox is 100% on room air. GENERAL: Fatigue and malnourished. HEENT: Normocephalic and atraumatic. NECK: Supple. LUNGS: Decreased breath sounds. Chest tube x2 to the right side. CARDIOVASCULAR: Regular rate and rhythm. GI: Soft and nontender. NEUROLOGIC: Alert, awake, and oriented x3. MUSCULOSKELETAL: Moves all extremities. SKIN: Dry. LABORATORY DATA: WBC 10.14, hemoglobin 8.0, hematocrit . Sodium 134, potassium 4.2, BUN is 30, creatinine 4.92, and calcium 7.9. Chest x-ray with no changes. IMPRESSION: 1. Dyspnea due to recurrent pleural effusion. Status post thoracentesis to the left lung and VATS to the right side. CV surgeon has been consulted. Chest tube in place to the right side, draining. Pulmonary on the case. 2. Anemia of chronic disease. Status post 4 units of PRBC transfusion. Hemoglobin is stable at 8. We will continue to monitor. 3. Hypertension. Continue home medication. 4. End-stage renal disease. On dialysis, Sunday, Sunday, and Sunday per Nephrology. 5. Iron deficiency anemia. Continue supplements. 6. High cholesterol. On statin. 7. Poor appetite and dysphagia. Defer to GI. HIDA scan showed chronic cholecystitis, on Reglan. 8. Right foot diabetic ulcer. Status post bedside debridement. Wound care per Podiatry. 9. Low protein malnutrition. Increase p.o. protein intake. Nutrition on the case. 10. Debility. PT/OT to evaluate and treat. 11. Deep vein thrombosis prophylaxis. No chemical anticoagulation due to anemia. PLAN: To continue current treatment. CT chest plan tomorrow for evaluation of his pneumothorax/pleural effusion. Continue amoxicillin, Biaxin, and chest tube evaluation. Dictated by HIGINIO Dunn Heather Sow MD MY/MODL /[id number]
--- NOTE | 2019-05-25 14:05 | NUR ---
patient diaphoretic and clammy, blood sugar checked was 69, offered apple juice, will recheck blood sugar and continue to monitor.
[2019-05-25] MEDS: DEXTROSE 50% SYRINGE 50 ML IV PRN (14:24)
--- NOTE | 2019-05-25 14:25 | NUR ---
patients blood sugar did not improve and sugar again rechecked and was 50, 1 amp D 50 given, will recheck blood sugar and continue to monitor
--- NOTE | 2019-05-25 14:50 | NUR ---
blood sugar rechecked was 164. will continue to monitor
--- NOTE | 2019-05-25 15:05 | NUR ---
Visit made by the Spiritual Care Department Pastoral Visitor, Jose Martin. PV provided pastoral presence, prayer, communion, hospitality, and supportive listening. Pastoral Visitor informed pt/family of the scope of [employer] and availability. [employer] Instructor Spiritual Care Department O: [phone] Pager: [phone] ([phone] number calling from)
--- NOTE | 2019-05-25 18:49 | Progress Note ---
DATE: 05/24/2019 SUBJECTIVE: The patient is seen at bedside, resting in no distress. Denying any history of fever, chills, nausea, or vomiting. OBJECTIVE: VITAL SIGNS: Afebrile. Vital signs stable. EXTREMITIES: Ulceration to the right foot continues to improve, less than 1.5 cm in diameter. Some superficial necrosis noted down the dermis. Periwound cellulitis present with decreased circulatory status in both the DP and PT. The CFT to all toes less than 5 seconds. ASSESSMENT: Diabetic neuropathy with a grade 2 ulceration with periwound cellulitis. PLAN: Continue Bactroban ointment. Continue offloading. Weightbearing strictly with the aid of the surgical shoe. We will continue to follow. YULI Sutton/HAIL /[id number]
--- NOTE | 2019-05-25 18:54 | Consultation ---
DATE OF CONSULTATION: 05/25/2019 SUBJECTIVE: The patient at bedside, sleeping, in no distress. OBJECTIVE: VITAL SIGNS: Afebrile. Vital signs are stable with a pulse rate of 76, respirations 23, blood pressure 99/50, and O2 saturation 100%. EXTREMITIES: Ulceration of right foot, improving. Positive edema noted on the state. Positive eczema with pedal pulses diminished. LABORATORY DATA: Labs show a white blood cell count of 10.14, hemoglobin 8.0, hematocrit 24.4 with a platelet count of 132. ASSESSMENT: Peripheral arterial disease, diabetic neuropathy with a grade 2 ulceration with neuropathy. PLAN: Continue applying Bactroban ointment. Continue offloading. Strictly surgical shoe upon weightbearing. We will continue to follow. Continue IV antibiotics. YULI Sutton/BRIT /[id number]
[2019-05-25] MEDS: NIFEDIPINE CR 30 MG TAB PO SCH (21:00)
[2019-05-25] MEDS: ACETAMINOPHEN 325 MG TAB PO PRN (23:53)
[2019-05-26] MEDS: ALBUTEROL SULF 0.083% NEB SOLN 3 ML NEB NEB SCH ×4 (00:32→19:51)
[2019-05-26 03:27] VITALS: BP 118/77
[2019-05-26] MEDS: METOCLOPRAMIDE HCL 10 MG/2ML VIAL IV SCH ×3 (05:15→17:27)
[2019-05-26] MEDS: IRON SUCROSE 100 MG in SODIUM CHLORIDE 0.9% 100 ML 100 ML IV SCH (05:15)
[2019-05-26] MEDS: ACETYLCYSTEINE 20% INHAL SOLN 30 ML VIAL INH SCH ×2 (07:10→19:51)
[2019-05-26] MEDS: INSULIN LISPRO 100 UNIT/1 ML 3ML VIAL SQ SCH ×4 (07:30→19:40)
[2019-05-26 08:00] VITALS: BP 141/57
[2019-05-26] MEDS: LOSARTAN POTASSIUM 25 MG TAB PO SCH ×2 (09:00→17:27)
[2019-05-26] MEDS: METOPROLOL TARTRATE 25 MG TAB PO SCH ×2 (09:00→20:46)
[2019-05-26] MEDS: CRESTOR 10MG PO SCH ×2 (09:00→20:46)
[2019-05-26] MEDS: HYDRALAZINE HCL 25 MG TAB PO SCH ×2 (09:00→14:54)
[2019-05-26] MEDS: SUCRALFATE 1 GM TAB PO SCH ×4 (09:11→20:46)
--- NOTE | 2019-05-26 09:16 | Diagnostic Imaging Report ---
EXAMINATION: CHEST SINGLE (PORTABLE) INDICATION: Pneumothorax COMPARISON: Chest radiograph 05/25/2019 FINDINGS: LINES/TUBES:Right chest tubes, right and left IJ central venous catheters appear unchanged. EKG leads overlie the chest. LUNGS:No new focal consolidation or pulmonary edema. PLEURA:Slight interval decrease in size of right apical pneumothorax, measuring up to 18 mm maximal thickness. MEDIASTINUM:The cardiomediastinal silhouette appears unchanged in size and shape. BONES/SOFT TISSUES:No acute osseous injury. ABDOMEN:No free air under the diaphragm. IMPRESSION: Slight interval decrease of right apical pneumothorax. Support lines and tubes unchanged. No new focal consolidation. Signed by: Chandrakant Leija MD on 05/26/2019 9:14 AM
[2019-05-26 09:26] VITALS: BP 141/57
[2019-05-26] MEDS: SEVELAMER CARBONATE 800 MG TAB PO SCH ×3 (09:54→17:27)
[2019-05-26] MEDS: CYANOCOBALAMIN INJ 1,000 MCG/ML VIAL IM SCH (09:54)
--- NOTE | 2019-05-26 09:55 | Diagnostic Imaging Report ---
EXAM: CT Chest WITHOUT intravenous contrast 05/26/2019 7:00 AM INDICATION: Pneumothorax COMPARISON: Chest radiograph 05/15/2019 TECHNIQUE: Chest was scanned utilizing a multidetector helical scanner from the lung apex through the level of the adrenal glands without administration of IV contrast. Coronal and sagittal reformations were obtained. Routine protocol was performed. IV CONTRAST: None RADIATION DOSE: Total DLP: 481.4 mGy*cm. Dose modulation, iterative reconstruction, and/or weight based adjustment of the mA/kV was utilized to reduce the radiation dose to as low as reasonably achievable. COMPLICATIONS: None FINDINGS: LINES/ TUBES: Right IJ central venous catheter terminates at the superior vena cava. Right basilar and right apical chest tubes in place. LUNGS AND AIRWAYS: The central airways are patent. Bilateral dependent lower lobe subsegmental atelectasis right greater than left. No new focal consolidation. Lower lobe predominant smooth interlobular septal thickening consistent with interstitial pulmonary edema. PLEURA: Moderate right hydropneumothorax with multiple foci of loculated anterior dependent air within the basilar pleural fluid. Small left pleural effusion. HEART AND MEDIASTINUM: The thyroid gland is normal. No supraclavicular lymphadenopathy. Scattered prominent axillary and mediastinal lymph nodes not meeting size criteria for lymphadenopathy. No definite hilar lymphadenopathy, difficult to assess in the absence of IV contrast. The heart is enlarged. No pericardial effusion. Atherosclerotic calcifications involve the aorta, coronary arteries, and proximal great vessels. UPPER ABDOMEN: Limited non-contrast views of the upper abdomen show no acute abnormality. BONES: Acute minimally displaced anterolateral right third rib fracture, mildly displaced acute lateral right sixth rib fracture, and nondisplaced lateral right seventh rib fracture. SOFT TISSUES: Diffuse subcutaneous soft tissue edema. IMPRESSION: Moderate right hydropneumothorax. Right apical and basilar chest tubes in place. Acute fractures involving the right third, sixth, and seventh ribs. Pulmonary interstitial edema. No new consolidation. The above findings were discussed with Gali VASQUEZ on 05/26/2019 9:39 AM, who responded indicating that the communication was understood. Signed by: Chandrakant Leija MD on 05/26/2019 9:53 AM
[2019-05-26] MEDS: PANTOPRAZOLE SOD 40 MG TABEC PO SCH ×2 (09:57→20:47)
[2019-05-26] MEDS: CLARITHROMYCIN 500 MG TAB PO SCH ×2 (09:57→20:46)
[2019-05-26] MEDS: FOLIC ACID 1 MG TAB PO SCH (09:58)
[2019-05-26] MEDS: AMOXICILLIN 250 MG CAP PO SCH ×2 (10:12→20:46)
[2019-05-26 11:00] VITALS: BP 150/75
--- NOTE | 2019-05-26 11:37 | Progress Note ---
DATE: 05/26/2019 CONSULTANTS: 1. Dr. Rivas with Nephrology. 2. Dr. Fraire with Pulmonary. 3. Dr. Lockhart with GI. 4. Dr. Freeman with CV surgeon. 5. Dr. Amin with Podiatry. CHIEF COMPLAINT: Generalized weakness and recurrent shortness of breath due to fluid overload. SUBJECTIVE: The patient was seen resting in bed while HD in progress. Chest tube still in place and draining. Chest x-ray this morning done. He denies any chest pain, shortness breath, fever, chills, or cough. PHYSICAL EXAMINATION: VITAL SIGNS: Temperature 98.2, pulse is 91, respirations 17, blood pressure 141/57, and pulse ox 100% on room air. GENERAL: Fatigued, malnourished. HEENT: Normocephalic and atraumatic. NECK: Supple. LUNGS: Decreased breath sounds. Chest tube in place to the right side. CARDIOVASCULAR: Regular rate and rhythm. GI: Soft and nontender. NEUROLOGIC: Alert, awake, and oriented x3. MUSCULOSKELETAL: Moves all extremities. IMAGING: Chest x-ray shows slight interval decrease at the right apical pneumothorax. Support lines and tubes unchanged. No new focal consolidation. CT chest is pending. IMPRESSION: 1. Dyspnea due to recurrent pleural effusion. Status post thoracentesis to the left lung and VATS to the right side. CV surgeon has been consulted. Chest tube in place and draining. Pulmonary on the case. Chest x-ray with slight interval change in pneumothorax. CT chest is pending. 2. Anemia of chronic disease. Status post 4 units of PRBC transfusion. Hemoglobin is stable at 8. We will continue to monitor. 3. Hypertension. Continue home medications. 4. End-stage renal disease. On dialysis, Sunday, Sunday, and Sunday per Nephrology. 5. Iron deficiency anemia. Continue supplement. 6. High cholesterol. On statin. 7. Poor appetite and dysphagia. Defer to GI. HIDA scan shows chronic cholecystitis. On Reglan, also on amoxicillin and Biaxin. 8. Right foot diabetic ulcer. Status post bedside debridement. Podiatry on the case. 9. Low protein malnutrition. Increase p.o. protein intake. 10. Debility. PT/OT to evaluate and treat. 11. Deep vein thrombosis prophylaxis. No chemical anticoagulation due to anemia. PLAN: To continue current treatment. CT chest pending. Further recommendations per CV surgeon and Pulmonary. Dictated by HIGINIO Dunn Heather Sow MD MY/MODL /[id number]
[2019-05-26] MEDS: FUROSEMIDE 40 MG TAB PO SCH (14:51)
--- NOTE | 2019-05-26 16:23 | Progress Note ---
DATE: 05/26/2019 SUBJECTIVE: The patient at bedside, getting dialyzed, doing better. Decreased discomfort to the right extremity. Denying history of fever, chills, nausea, or vomiting. OBJECTIVE: VITAL SIGNS: Afebrile, pulse rate 87, respirations 17, blood pressure 118/77, O2 saturation 100%. EXTREMITIES: Ulceration to the right lower extremity continues to improve, less than 1.5 cm diameter. Positive periwound cellulitis present. No drainage. Ulceration down to dermis. No tendon or bone exposed. ASSESSMENT: Grade 2 ulcer, right foot, diabetic neuropathy with decreased circulatory status. PLAN: Continue applying Bactroban ointment. Continue offloading. The patient when feeling smarter can weightbear with the aid of a surgical shoe. We will continue to follow. YULI Sutton/BRIT /[id number]
[2019-05-26 17:30] VITALS: BP 151/72
[2019-05-26 19:34] VITALS: BP 142/63
--- NOTE | 2019-05-26 19:41 | NUR ---
called dr Sow phone, spoke to Ita( covering dr Sow) pt blood sugar was 29, gave dex 50% IV, and re checked blood sugar again, its 157 now. no farther order from Ita.
[2019-05-26] MEDS: NIFEDIPINE CR 30 MG TAB PO SCH (20:46)
--- NOTE | 2019-05-26 21:05 | NUR ---
dr perez came and saw patient in the room, ordered to reinforce tape to right chest tube also CXR in am.
[2019-05-26] MEDS: ACETAMINOPHEN 325 MG TAB PO PRN (21:51)
[2019-05-27] VITALS (11 sets, daily range): BP systolic 82–152; BP diastolic 47–64
[2019-05-27] MEDS: METOCLOPRAMIDE HCL 10 MG/2ML VIAL IV SCH ×5 (00:04→23:15)
[2019-05-27] MEDS: ALBUTEROL SULF 0.083% NEB SOLN 3 ML NEB NEB SCH ×4 (00:12→19:40)
--- NOTE | 2019-05-27 03:03 | NUR ---
dr Brayan Lockhart came and saw patient in room. he ordered labs in AM . patient stable, bed alarm is on. will continue to monitor.
--- NOTE | 2019-05-27 03:25 | Progress Note ---
DATE: 05/26/2019 CONSULT REASON: Loculated pleural effusion, now status post decortication with chest tube placement. SUBJECTIVE: Feeling well. Ambulating. PHYSICAL EXAMINATION: CARDIAC: Regular rate and rhythm. Normal S1 and S2. LUNGS: Breath sounds are full on the left, but diminished on the right with some wheezes. Chest tube suction is audible. There is no visible air leak in the Pleur-evac today. Presently, it is on suction. ABDOMEN: Benign. EXTREMITIES: No cyanosis, clubbing, or edema. NEUROLOGICAL: Alert and oriented x3. LABORATORY DATA: Chest x-ray and CT scan are reviewed. Chest tubes are well positioned in a mild to moderate hydropneumothorax. There does not appear to be any intrinsic pulmonary lesion. There are several fractured ribs compatible with his surgical operation. IMPRESSION: Loculated hydropneumothorax of the right lung with appropriately positioned chest tube. The Pleur-Evac no longer has any air leak. Tomorrow, we will attempt a trial of water-seal drainage and check a chest x-ray. Kameron Freeman MD GVL/MODL /[id number]
[2019-05-27] MEDS: IRON SUCROSE 100 MG in SODIUM CHLORIDE 0.9% 100 ML 100 ML IV SCH (04:25)
[2019-05-27] MEDS: ACETAMINOPHEN 325 MG TAB PO PRN ×2 (05:14→20:48)
[2019-05-27 05:40] LABS: BASOPHILS # (AUTO) 0.1 (0.0-0.1); BASOPHILS % 0.8 % (0.0-1.0); EOSINOPHILS # (AUTO) 0.3 (0.0-0.4); EOSINOPHILS % 3.1 % (0.0-6.0); HEMATOCRIT 22.9 % (38.2-49.6); HEMOGLOBIN 7.5 g/dL (14.0-18.0); LYMPHOCYTES # (AUTO) 1.1 (1.0-3.2); LYMPHOCYTES % 11.9 % (18.0-39.1); MEAN CORPUSCULAR HEMOGLOBIN 28.5 pg (28-32); MEAN CORPUSCULAR HGB CONC 32.8 g/dL (31-35); MEAN CORPUSCULAR VOLUME 87.1 fL (81-99); MONOCYTES % 10.3 % (4.4-11.3); NEUTROPHILS # (AUTO) 6.8 (2.1-6.9); NEUTROPHILS % 73.6 % (38.7-80.0); PLATELET COUNT 130 x10e3/uL (140-360); RED BLOOD COUNT 2.63 x10e6/uL (4.3-5.7); RED CELL DISTRIBUTION WIDTH 14.4 % (11.7-14.4); RETICULOCYTE % 1.6 % (0.8-2.2)
--- NOTE | 2019-05-27 05:55 | Diagnostic Imaging Report ---
EXAMINATION: CHEST SINGLE (PORTABLE) COMPARISON: Chest x-ray and CT chest 05/26/2019 INDICATION: ^Follow up s/p decortication, chest tubes ^20190527 ^0500 ^Y DISCUSSION: Frontal view of the chest obtained at 0522 hours. HEART AND MEDIASTINUM: The heart is top normal in size, stable LINES: Right IJ catheter terminates in the SVC. Two right chest tubes are stable in position. Dual lumen central venous catheter has been removed. LUNGS/PLEURA: Right apical pneumothorax measures 2.5 cm (by CT, 2.4 cm). Lateral right pleural thickening is stable. Hydropneumothorax in the base of the right chest is stable. Trace left pleural effusion. BONES AND SOFT TISSUES: No focal osseous lesion. The soft tissues are normal. IMPRESSION: No change in right apical pneumothorax. Right basilar hydropneumothorax is stable. Trace left pleural effusion. No new findings in the left chest. Signed by: Dr. Wes Cruz MD on 05/27/2019 5:52 AM
[2019-05-27 05:58] LABS: ANION GAP 13.4 mmol/L (8-16); CREATININE, SERUM 3.95 mg/dL (0.72-1.25); POTASSIUM 4.4 mmol/L (3.5-5.1)
[2019-05-27] MEDS: ACETYLCYSTEINE 20% INHAL SOLN 30 ML VIAL INH SCH ×2 (06:59→19:40)
[2019-05-27] MEDS: INSULIN LISPRO 100 UNIT/1 ML 3ML VIAL SQ SCH ×3 (07:30→17:32)
[2019-05-27] MEDS: SUCRALFATE 1 GM TAB PO SCH ×5 (08:58→20:48)
[2019-05-27] MEDS: SEVELAMER CARBONATE 800 MG TAB PO SCH ×3 (08:58→17:15)
[2019-05-27] MEDS: CYANOCOBALAMIN INJ 1,000 MCG/ML VIAL IM SCH (09:05)
[2019-05-27] MEDS: AMOXICILLIN 250 MG CAP PO SCH ×2 (09:55→20:48)
[2019-05-27] MEDS: CLARITHROMYCIN 500 MG TAB PO SCH ×2 (09:55→20:48)
[2019-05-27] MEDS: PANTOPRAZOLE SOD 40 MG TABEC PO SCH ×2 (09:56→20:48)
[2019-05-27] MEDS: FUROSEMIDE 40 MG TAB PO SCH (09:56)
[2019-05-27] MEDS: CRESTOR 10MG PO SCH ×2 (09:56→20:48)
[2019-05-27] MEDS: HYDRALAZINE HCL 25 MG TAB PO SCH ×2 (09:57→17:00)
[2019-05-27] MEDS: METOPROLOL TARTRATE 25 MG TAB PO SCH ×2 (09:58→20:48)
[2019-05-27] MEDS: LOSARTAN POTASSIUM 25 MG TAB PO SCH ×2 (09:58→17:00)
[2019-05-27] MEDS: FOLIC ACID 1 MG TAB PO SCH (10:00)
--- NOTE | 2019-05-27 11:26 | Progress Note ---
DATE: 05/27/2019 SUBJECTIVE: The patient is seen at bedside, doing somewhat better. Still weak. He is not able to put any weight on his foot. OBJECTIVE: VITAL SIGNS: Afebrile, pulse rate is 96, respirations 24, blood pressure 152/63, and O2 saturation 100%. EXTREMITIES: Ulceration right lower extremity continues to improve. Some swelling noted. Decreased circulatory status. Skin temperature warm and cool to touch. Ulcer less than 1.5 cm in diameter. LABORATORY DATA: Labs show white blood cell count of 9.23. ASSESSMENT: Grade 2 ulcer right foot, diabetic neuropathy, decreased circulatory status with edema. PLAN: Continue current medications such as Bactroban followed by light dry dressing. Continue offloading. We will continue to follow. YULI Sutton/BRIT /[id number]
--- NOTE | 2019-05-27 12:48 | NUR ---
Nutrition Intervention Note RD Recommendation(s) for Physician: -Continue current diet per MD -Continue Glucerna Shake with meals - Recommend Renal MVI once daily for adequacy Pt meets criteria for severe protein calorie malnutrition Plan of Care: RD following, monitoring for tolerance and adequacy. Nutrition Supplement Nutrition reason for involvement: follow up RD Assessment 05/27: Pt seen for follow up. Pt appetite and intake have significantly improved, pt consistently eating 75-100% of meals currently. Pt reports that he is not drinking Glucerna Shake 2/2 causing loose stool or immediate BM after drinking. Pt decline any additional supplementation 2/2 flavor preference for strawberry only. Pt denies any GI distress. Pt with no questions or concerns at time of visit. Pt discussed during am rounds. Will continue to monitor. 05/23: RD received consult for nutrition assessment. Per RN, pt is eating well today and consumed 100% of his breakfast and lunch with nutrition supplements. No N/V per RN. Pt has various weights in chart. On 05/17, pt weighed 136 lbs, 121 lbs on 05/18 and 110 lbs on 05/22. Of note, pt is receiving lasix per medications in chart. Will continue to monitor. 05/21: Pt seen for follow up. Pt s/p HD tx today, has chest tube in place 2/2 post operative pneumothorax. Pt with fair intake and poor appetite, 50-75% of meals per FS. Pt with 0% intake of lunch tray at time of visit, states he did not like the meal today and that he does not like vanilla flavored Nepro. Spoke with fast food delivery driver, plan to obtain mixed hernandez Nepro per pt preference. Encouraged po intake of meals and supplements, pt verbalized understanding. Pt denies GI distress. Pt discussed during am rounds and discussed with RN. Chart reviewed. Will continue to monitor. 05/16: Follow up: Pt was seen resting within the ICU. The pt had surgery performed yesterday, currently on clears. Spoke about pt in rounds, pt will receive dialysis today and wound debridement tmrw. Will continue to monitor. 05/14: Follow up/consult: Pt was seen finishing his breakfast, he consumed 100% of his breakfast and stated that he could even eat some more. Received consult from , wanted the pt to consume Nepro supplement twice at each meal, this order was placed within [employer]. Pt denied N/V/C/D/ chewing or swallowing issues at this time. Thoracoscopy or open drainage will be arranged per MD. Will continue to monitor. (05/09/2019) Chart reviewed. Labs and meds reviewed. Pt is a 58 year old male admitted with anemia, ESRD, pleural effusion, and pneumonia. Pt is currently NPO. Pt was unable to quantify PO intake amount prior to admission at time of visit. Pt mentioned he had lost weight and used to weigh 150 lbs 2 months ago. Pt currently has a weight of 139 lbs in chart. If accurate, this would be a 7% wt loss in 2 months significant weight loss. No N/V or chewing/swallowing issues noted. Recommend Nepro for added nutrition when diet advances. Will continue to monitor. Principal Problems/Diagnoses: anemia, ESRD, pleural effusion, and pneumonia PMH: HTN, high cholesterol, ESRD, anemia of chronic disease GI: flat,round, non-tender last recorded BM 05/27 Skin: wound on chest and foot Labs: 05/27: Na 132, K 4.4, BUN 20, Cr 3.95, Gluc 82, POC Gluc 152-191 Meds: protonix, insulin, dilaudid, zofran IVF: NS at 100 ml/hr Ht: 72 in (per pt) Wt: 110 lbs (05/22) 121 lbs (05/18) 136 lbs (05/17), 137 lbs (05/14) 139 lbs (05/07) Of note, pt is receiving lasix per medications in chart (05/23) BMI: 14.9 kg/m2 IBW: 178 lb Malnutrition Evaluation (05/23/2019) Patient meets criteria for severe protein calorie malnutrition. Energy intake: Adequate PO intake reported today. Pt was previously consuming <75% of meals for > 7 days Weight loss: 7% weight loss in 2 months Fat loss: moderate, hollowing of eyes Muscle loss: Moderate lower extremities Supporting Evidence: Fluid accumulation: no accumulation identified per MD note Functional Status: unable to evaluate Nutrition Prescription (Diet Order): 1800 ADA, Renal Estimated Nutritional Needs: 0591-5655 calories/day (30-35 kcal/kg CBW) 60-75 g protein/day (1.2-1.5 g pro/kg CBW) Diet Adequacy: meeting kcal needs, meeting protein needs Tolerance: tolerating diet Diet Education Needs Assessment: Diet education not indicated Nutrition Care Level: moderate Nutrition Diagnosis: Severe protein kcal malnutrition related to chronic illness as evidenced by 7% weight loss in 2 months, moderate muscle and fat depletion, and pt previously consuming <75% of meals of > 7 days. Goal: Patient will meet 75-100% of estimated needs by follow up Progress: progressing- pt eating 75-100% of meals daily Interventions: -mineral (Phos, K, Na), carbohydrate - modified diet, Commercial beverage Monitoring/Evaluation: -Total energy intake, Total protein intake, Modified diet, Liquid supplement, Weight change Signed: Nancy Tellez RD, LD, [facility]
--- NOTE | 2019-05-27 19:00 | NUR ---
Rapid called at shift change patient reported he felt weak patient was diaphoretic was alert gave him Glucerna to drink, and called a rapid. Glucose was checked with accu-check was 32. Addendum: 05/27/19 at 2039 by Marla King RN Patient was given D50% during the rapid response, notified attending.
--- NOTE | 2019-05-27 19:05 | NUR ---
LEFT VM FOR REGARDING RAPID RESPONSE AWAITING CALL BACK
[2019-05-27] MEDS: DEXTROSE 50% SYRINGE 50 ML IV PRN (19:09)
--- NOTE | 2019-05-27 19:45 | NUR ---
Dr. Sow's TRANSIT SPECIALIST returned call received orders to discontinue the sliding scale, and continue with blood sugar checks q 4hours, and keep Dextrose 50% in the PRN orders.
[2019-05-27] MEDS: NIFEDIPINE CR 30 MG TAB PO SCH (20:50)
--- NOTE | 2019-05-27 22:34 | Progress Note ---
DATE: 05/27/2019 CONSULTANTS: 1. Dr. Rivas with nephrology. 2. Dr. Fraire with Pulmonary. 3. Dr. Lockhart with GI. 4. Dr. Freeman with CV surgeon. 5. Dr. Amin with Podiatry. CHIEF COMPLAINT: Generalized weakness and recurrent shortness of breath due to pleural effusion. SUBJECTIVE: The patient is seen sitting up in a chair with mild shortness of breath. He denies any chest pain, fever, chills, cough. Reports appetite a little bit better today. OBJECTIVE: VITAL SIGNS: Temperature 98.0, pulse is 70, respirations 23, blood pressure 86/47, pulse ox is 96% on room air. GENERAL: Chronically ill-appearing, fatigued, and malnourished. HEENT: Normocephalic, atraumatic. NECK: Supple. LUNGS: Decreased breath sounds. Chest tube still in place. CARDIOVASCULAR: Regular rate and rhythm. GI: Soft and nontender. NEUROLOGIC: Alert, awake, and oriented x3. MUSCULOSKELETAL: Moves all extremities. IMAGING: Chest x-ray shows no change in right apical pneumothorax. Right basilar hydropneumothorax is stable. Trace left pleural effusion. No new findings in the left chest. LABORATORY DATA: WBC 9.23, hemoglobin 7.5, hematocrit 22.9, platelet 130. Sodium 132, potassium 4.4, CO2 28, BUN is 20, creatinine 3.95, estimated GFR is 16, calcium 8.0. IMPRESSION: 1. Dyspnea due to recurrent pleural effusion. Status post thoracentesis and VATS. CV surgeon on the case. Chest tube in place and draining. Pulmonary also on the case. Chest x-ray with not much change. 2. Anemia of chronic diseases. Status post transfusion of 4 units of PRBCs. Hemoglobin is stable at 7.5. We will continue to monitor closely. 3. Hypertension. Continue home medication, now hypotensive. 4. End-stage renal disease. On dialysis Sunday, Sunday, Sunday per Nephrology. 5. Iron deficiency anemia. Continue supplements. 6. High cholesterol. On statin. 7. Poor appetite and dysphagia. Defer to GI. 8. Right foot diabetic ulcer. Status post bedside debridement of right foot. Tray Filler on the case. 9. Low protein malnutrition. Increase p.o. protein intake. Assistant Track Coach on the case. 10. Debility. PT, OT to evaluate and treat. 11. Deep vein thrombosis prophylaxis. No chemical anticoagulation due to anemia. PLAN: To continue current treatment. Further recommendations per CV surgeon and Pulmonary regarding discharge plans. Dictated by HIGINIO Dunn Belenching Naseem Sow MD MY/MODL /[id number]
--- NOTE | 2019-05-27 22:57 | NUR ---
patient resting in bed, eyes closed, no s/s of acute distress, skin warm to touch,bed alarm is on, will continue to monitor.
[2019-05-28] VITALS (8 sets, daily range): BP systolic 125–159; BP diastolic 54–76
[2019-05-28] MEDS: ALBUTEROL SULF 0.083% NEB SOLN 3 ML NEB NEB SCH ×4 (01:10→19:40)
--- NOTE | 2019-05-28 02:15 | NUR ---
patient called, he wanted to use urinal, he urinated 50cc. dressing to right chest reinforced, no distress noted, will continue to monitor.
[2019-05-28] MEDS: IRON SUCROSE 100 MG in SODIUM CHLORIDE 0.9% 100 ML 100 ML IV SCH (04:28)
[2019-05-28 06:01] LABS: MAGNESIUM 2.1 MG/DL (1.3-2.1); PHOSPHORUS 1.1 MG/DL (2.3-4.7)
--- NOTE | 2019-05-28 06:10 | Diagnostic Imaging Report ---
EXAMINATION: CHEST SINGLE (PORTABLE) COMPARISON: Chest x-ray 05/27/2019, chest x-ray 05/26/2019 INDICATION: ^Follow up s/p decortication, chest tubes ^Y DISCUSSION: Frontal view of the chest obtained at 0534 hours. HEART AND MEDIASTINUM: Stable cardiomegaly LINES: 2 chest tubes in the right hemithorax are stable in position. Right IJ catheter terminates in the SVC LUNGS/PLEURA: Right apical pneumothorax measures 2.4 cm (previously, 2.5 cm). Loculated hydropneumothorax in the right lung base is similar. Mild left basilar atelectasis. BONES AND SOFT TISSUES: Stable. IMPRESSION: No change in right apical pneumothorax or loculated right basilar hydropneumothorax. Stable line and tubes. No new findings. Signed by: Dr. Wes Cruz MD on 05/28/2019 6:06 AM
[2019-05-28 06:24] LABS: ANION GAP 13.8 mmol/L (8-16); CALCIUM 7.8 mg/dL (8.4-10.2); CREATININE, SERUM 5.21 mg/dL (0.72-1.25); POTASSIUM 4.8 mmol/L (3.5-5.1)
[2019-05-28] MEDS: METOCLOPRAMIDE HCL 10 MG/2ML VIAL IV SCH ×4 (06:37→23:30)
[2019-05-28] MEDS: ACETYLCYSTEINE 20% INHAL SOLN 30 ML VIAL INH SCH ×2 (06:40→19:40)
[2019-05-28] MEDS: CYANOCOBALAMIN INJ 1,000 MCG/ML VIAL IM SCH (08:21)
[2019-05-28] MEDS: AMOXICILLIN 250 MG CAP PO SCH (08:21)
[2019-05-28] MEDS: HYDRALAZINE HCL 25 MG TAB PO SCH ×2 (08:21→17:15)
[2019-05-28] MEDS: SUCRALFATE 1 GM TAB PO SCH ×4 (08:21→20:35)
[2019-05-28] MEDS: SEVELAMER CARBONATE 800 MG TAB PO SCH ×3 (08:21→17:15)
[2019-05-28] MEDS: CLARITHROMYCIN 500 MG TAB PO SCH ×2 (08:21→20:35)
[2019-05-28] MEDS: LOSARTAN POTASSIUM 25 MG TAB PO SCH ×2 (08:22→17:15)
[2019-05-28] MEDS: METOPROLOL TARTRATE 25 MG TAB PO SCH ×2 (08:22→20:35)
[2019-05-28] MEDS: CRESTOR 10MG PO SCH ×2 (08:22→20:35)
[2019-05-28] MEDS: FOLIC ACID 1 MG TAB PO SCH (08:22)
[2019-05-28] MEDS: FUROSEMIDE 40 MG TAB PO SCH (08:22)
[2019-05-28] MEDS: PANTOPRAZOLE SOD 40 MG TABEC PO SCH ×2 (08:22→20:35)
--- NOTE | 2019-05-28 10:19 | NUR ---
clarified with Dr. Freeman regarding water seal and orders received to place chest tubes on water seal drainage and repeat chest x ray in 4 hours
[2019-05-28] MEDS ORDERED: DEXTROSE 10% 1,000 ML IV ONE (14:00)
--- NOTE | 2019-05-28 14:03 | Progress Note ---
DATE: 05/28/2019 SUBJECTIVE: The patient is seen at bedside, doing better. Does relate he was feeling somewhat out of it last couple days secondary to a drop in his blood glucose. He still not able to get on his feet. OBJECTIVE: VITAL SIGNS: Afebrile, pulse rate 85, respirations 20, blood pressure 125/67, and O2 saturation 99%. EXTREMITIES: Ulceration to the right lower extremity is improving. There is decreased edema. Skin temperature warm and cool to touch. Ulcer less than 1.5 cm in diameter with no drainage. ASSESSMENT: Grade 2 ulcer diabetic neuropathy with periwound cellulitis. PLAN: Continue applying Bactroban ointment to the affected area. The patient is okay to stand and do physical therapy with the aid of the surgical shoe. We will continue to follow. YULI Sutton/BRIT /[id number]
--- NOTE | 2019-05-28 15:10 | Diagnostic Imaging Report ---
EXAMINATION: CHEST SINGLE (PORTABLE) COMPARISON: Chest radiograph 05/28/2019 at 9:[address] chest 05/26/2019. INDICATION: Chest tube. DISCUSSION: LINES: Two chest tubes in the right hemithorax are stable in position. Right IJ catheter terminates in the SVC LUNGS/PLEURA: Right apical pneumothorax measures 2.4 cm, unchanged. Loculated hydropneumothorax in the right lung base is similar. Unchanged small left pleural effusion. Mild left basilar opacity, likely atelectasis. No new consolidation. Central vascular congestion with mild interstitial opacities. HEART AND MEDIASTINUM: Stable cardiomegaly BONES AND SOFT TISSUES: Stable. IMPRESSION: Unchanged right apical pneumothorax and loculated right basilar hydropneumothorax with stable right-sided chest tubes. Small left pleural effusion with associated atelectasis. Central vascular congestion. Signed by: Dr. Amber Mitchell MD on 05/28/2019 3:08 PM
--- NOTE | 2019-05-28 16:13 | Progress Note ---
DATE: 05/28/2019 CONSULTANTS: 1. Dr. Rivas with Nephrology. 2. Dr. Fraire with Pulmonary. 3. Dr. Lockhart with GI. 4. Dr. Freeman with CV surgeon. 5. Dr. Amin with Podiatry. CHIEF COMPLAINT: Generalized weakness and shortness of breath due to fluid overload. SUBJECTIVE: The patient is seen resting in bed while HD in progress. He denies any chest pain, shortness of breath, fever, chills, or cough. He is reported to have episodes of hypoglycemia the day before the last night. Insulin coverage discontinued. We will continue to monitor blood sugars closely. OBJECTIVE: VITAL SIGNS: Temperature 97.9, pulse is 98, respirations 18, blood pressure 150/76, and pulse ox is 96% on 2 L of oxygen. GENERAL: Fatigued and malnourished with generalized weakness. HEENT: Normocephalic and atraumatic. NECK: Supple. LUNGS: Decreased breath sounds. Chest tube in place. CARDIOVASCULAR: Regular rate and rhythm. GI: Soft and nontender. NEUROLOGIC: Alert, awake, and oriented x3. MUSCULOSKELETAL: Moves all extremities. Very weak. PSYCH: Calm. LABORATORY DATA: Sodium 127, potassium 4.8, carbon dioxide 26, BUN 35, creatinine 5.21, estimated GFR 11, glucose 98, phosphorus 1.1, and magnesium 2.1. IMAGING: Chest x-ray shows no change in right apical pneumothorax or loculated right basilar hydropneumothorax no new findings. IMPRESSION: 1. Dyspnea due to recurrent pleural effusion. Status post thoracentesis and VATS per CV surgeon. Chest tube in place, draining changing to water-seal. Pulmonary also on the case. 2. Anemia of chronic diseases and iron deficiency. Status post transfusion of 4 units of PRBCs total. Hemoglobin is 7.5. We will continue to monitor. 3. Hypertension. Continue current medication. 4. End-stage renal disease. On dialysis Sunday, Sunday, Sunday per Nephrology. 5. High cholesterol. On statin. 6. Poor appetite and dysphagia. Defer to GI. 7. Episodes of hypoglycemia. Discontinued insulin coverage and checking blood sugar regularly and treating with D50 as needed. 8. Right foot diabetic ulcer. Status post bedside debridement, right foot per Podiatry. Wound care per Podiatry. 9. Low protein malnutrition. Increase p.o. protein intake and encourage p.o. 10. Debility. PT/OT to evaluate and treat. 11. Deep vein thrombosis. No chemical anticoagulation due to anemia. PLAN: Continue current treatment. Chest tube to water seal. Plan per CV surgeon. Dictated by HIGINIO Dunn Heather Sow MD MY/MODL /[id number]
[2019-05-28] MEDS: NIFEDIPINE CR 30 MG TAB PO SCH (20:35)
[2019-05-29] VITALS (10 sets, daily range): BP systolic 84–159; BP diastolic 46–72
[2019-05-29] MEDS: ALBUTEROL SULF 0.083% NEB SOLN 3 ML NEB NEB SCH ×4 (01:20→19:25)
[2019-05-29] MEDS: IRON SUCROSE 100 MG in SODIUM CHLORIDE 0.9% 100 ML 100 ML IV SCH (05:12)
--- NOTE | 2019-05-29 06:09 | Diagnostic Imaging Report ---
EXAMINATION: CHEST SINGLE (PORTABLE) COMPARISON: CTA chest 05/26/2019, chest x-ray 05/28/2019 INDICATION: ^Follow up s/p decortication, chest tubes ^20190529 ^15 ^Y DISCUSSION: Frontal view of the chest obtained at 0538 hours. HEART AND MEDIASTINUM: Stable cardiomegaly LINES: Right IJ catheter terminates in the SVC. Right apical and basilar chest tubes are stable. LUNGS: Right apical pleural thickening is increasing suggestive of hydropneumothorax. Loculated hydropneumothorax in the right lung base is similar.. Increasing retrocardiac airspace disease. PLEURA: Small left pleural effusion. BONES AND SOFT TISSUES: No focal osseous lesion. The soft tissues are normal. IMPRESSION: Increasing fluid in the right lung apex is suggestive of hydropneumothorax. Stable right basilar hydropneumothorax. Increasing retrocardiac airspace disease suggestive of atelectasis. Small left pleural effusion. Stable support devices. Signed by: Dr. Wes Cruz MD on 05/29/2019 6:06 AM
[2019-05-29] MEDS: METOCLOPRAMIDE HCL 10 MG/2ML VIAL IV SCH ×3 (06:23→17:34)
[2019-05-29 06:55] LABS: BASOPHILS # (AUTO) 0.1 (0.0-0.1); BASOPHILS % 0.7 % (0.0-1.0); EOSINOPHILS # (AUTO) 0.2 (0.0-0.4); EOSINOPHILS % 2.6 % (0.0-6.0); HEMATOCRIT 22.2 % (38.2-49.6); LYMPHOCYTES # (AUTO) 1.2 (1.0-3.2); LYMPHOCYTES % 12.6 % (18.0-39.1); MEAN CORPUSCULAR HGB CONC 31.5 g/dL (31-35); MEAN CORPUSCULAR VOLUME 88.8 fL (81-99); MONOCYTES # (AUTO) 1.3 (0.2-0.8); MONOCYTES % 13.7 % (4.4-11.3); NEUTROPHILS # (AUTO) 6.4 (2.1-6.9); PLATELET COUNT 160 x10e3/uL (140-360); RED CELL DISTRIBUTION WIDTH 14.7 % (11.7-14.4)
[2019-05-29] MEDS: ACETYLCYSTEINE 20% INHAL SOLN 30 ML VIAL INH SCH ×2 (07:13→19:25)
[2019-05-29 07:14] LABS: ANION GAP 12.6 mmol/L (8-16); CALCIUM 7.9 mg/dL (8.4-10.2); CREATININE, SERUM 3.45 mg/dL (0.72-1.25); MAGNESIUM 1.9 MG/DL (1.3-2.1); PHOSPHORUS 1.1 MG/DL (2.3-4.7); POTASSIUM 4.6 mmol/L (3.5-5.1)
[2019-05-29] MEDS: FOLIC ACID 1 MG TAB PO SCH (08:29)
[2019-05-29] MEDS: FUROSEMIDE 40 MG TAB PO SCH (08:29)
[2019-05-29] MEDS: SEVELAMER CARBONATE 800 MG TAB PO SCH ×3 (08:29→17:10)
[2019-05-29] MEDS: CLARITHROMYCIN 500 MG TAB PO SCH ×2 (08:29→21:36)
[2019-05-29] MEDS: PANTOPRAZOLE SOD 40 MG TABEC PO SCH ×2 (08:29→21:36)
[2019-05-29] MEDS: CYANOCOBALAMIN INJ 1,000 MCG/ML VIAL IM SCH (08:29)
[2019-05-29] MEDS: CRESTOR 10MG PO SCH ×2 (08:29→21:36)
[2019-05-29] MEDS: SUCRALFATE 1 GM TAB PO SCH ×4 (08:29→21:36)
[2019-05-29] MEDS: METOPROLOL TARTRATE 25 MG TAB PO SCH ×2 (08:30→21:00)
[2019-05-29] MEDS: LOSARTAN POTASSIUM 25 MG TAB PO SCH (09:00)
[2019-05-29] MEDS: HYDRALAZINE HCL 25 MG TAB PO SCH (09:00)
--- NOTE | 2019-05-29 13:30 | NUR ---
received call from Dr. Freeman, regarding chest x ray results and orders received to place Heimlich valve at bedside.
--- NOTE | 2019-05-29 14:55 | NUR ---
informed dr ontiveros regarding patients low bp, orders received and entered. will continue to monitor
--- NOTE | 2019-05-29 15:39 | Progress Note ---
DATE: 05/29/2019 SUBJECTIVE: The patient is doing somewhat better, feeling better. He has decreased anxiety. Having itching to both lower extremities. He has some burning sensation to the forefoot, aspect of both feet. Denies any history of fever, chills, nausea, or vomiting. OBJECTIVE: VITAL SIGNS: Afebrile, pulse rate 91, respirations 25, blood pressure 108/54, and O2 saturation 99%. EXTREMITIES: Ulceration right foot continues to improve. Has severe eczema to both lower extremities. Skin temperature warm and cool to touch with some burning sensation to the forefoot, aspect of both feet. LABORATORY DATA: Labs show white blood cell count of 9.18, hemoglobin 7.0, hematocrit 22.2 with a platelet count of 160. ASSESSMENT: Diabetic neuropathy, grade 2 ulcer healing, less than 1.5 cm in diameter with eczema, dermatitis. PLAN: We will start applying an AmLactin 12% lotion b.i.d. to both feet and legs. Continue Bactroban ointment to the right foot lesion. Proper diabetic management. We will continue to follow. Offloading. YULI Sutton/BRIT /[id number]
--- NOTE | 2019-05-29 15:49 | Progress Note ---
DATE: 05/29/2019 CHIEF COMPLAINT: Generalized weakness with shortness of breath due to pleural effusion, recurrent. SUBJECTIVE: The patient is resting in bed with no acute complaints overnight. No chest pain. He is reported to have low blood pressure today, we will hold BP medications for now. OBJECTIVE: VITAL SIGNS: Temperature is 97.3, pulse is 79, respirations 14, blood pressure 84/63, and pulse ox is 99% on 2 L oxygen. GENERAL: Chronically ill-appearing, well-nourished with generalized weakness. HEENT: Normocephalic and atraumatic. NECK: Supple. LUNGS: With decreased breath sounds. Chest tube in place to the right side x2. CARDIOVASCULAR: Regular rate and rhythm. GI: Soft and nontender. NEUROLOGIC: Alert, awake, and oriented x3. MUSCULOSKELETAL: Moves all extremities, very weak. PSYCH: Calm. LABORATORY DATA: WBC 9.18, hemoglobin 7.0, hematocrit 22.2, and platelet 160. Sodium 130, potassium 4.6, CO2 27, creatinine 3.45, estimated GFR 18, phosphorus 1.1, magnesium 1.9, and calcium 7.9. IMAGING: Chest x-ray shows increasing fluid in the right lung apex and is suggestive of hydropneumothorax, stable right basilar hydropneumothorax. IMPRESSION: 1. Dyspnea due to recurrent pleural effusions. Status post thoracentesis and VATS to the right per CV surgeon. Chest tube is in place. Chest x-ray this morning with increasing hydropneumothorax. Pulmonary on the case. 2. Anemia of chronic diseases and iron deficiency. Status post transfusion of 4 units of PRBC. Hemoglobin is 7.0 today. We may need further transfusion if hemoglobin is less than 7. 3. Hypertension, now hypotensive. We will put parameters for blood pressure medications. 4. End-stage renal disease. On dialysis, Sunday, Sunday, and Sunday per Nephrology. 5. Hyponatremia. Improving some. We will defer to Nephrology. 6. High cholesterol. On statin. 7. Poor appetite and dysphagia. Defer to GI. 8. Episodes of hypoglycemia. Likely due to poor p.o. intake. Discontinue sliding scale insulin coverage. Received 1 L of D10 IV fluid at 40 mL per Nephrology recommendations. 9. Right foot diabetic ulcer. Status post bedside debridement. Wound care per Podiatry. 10. Severe protein malnutrition. Increase p.o. protein intake and java j2ee architect on the case. 11. Increased debility. PT/OT to evaluate and treat. We will also require placement upon discharge. 12. Deep vein thrombosis prophylaxis. No chemical anticoagulation due to anemia. PLAN: To continue current treatment. CV surgeon will re-evaluate chest tube today. Dictated by HIGINIO Dunn Heather Sow MD MY/MODL /[id number]
[2019-05-29] MEDS: AMMONIUM LACTATE 12% LOTION 225GM BTL TOP SCH (17:10)
--- NOTE | 2019-05-29 19:26 | NUR ---
Dr. Freeman rounding at bedside. R lateral CT removed at bedside by Dr. Freeman, Lanceimlich drainage valve placed on right CT. Mild drainage seeping from under dressing, Dr. Freeman at bedside & aware. Pt states he is comfortable, reports mild pain while coughing. CXR okay according to Dr. Freeman. Dressing C/D/I, will continue to monitor drainage and repeat CXR.
--- NOTE | 2019-05-29 19:41 | Diagnostic Imaging Report ---
INDICATION: Chest tube replaced COMPARISON: CT on May 26, 2019 and chest x-ray on 05/29/2019 DISCUSSION: None IMPRESSION: 1. Right chest tube overlying the right upper lung and right IJ catheter with tip overlying the SVC. 2. Improved aeration of the lung. Opacity at the right lung base with lucency likely related to loculated hydropneumothorax. Signed by: Dr. Naseem Mckinley M.D. on 05/29/2019 7:38 PM
[2019-05-29] MEDS: NIFEDIPINE CR 30 MG TAB PO SCH (21:00)
[2019-05-30] MEDS: METOCLOPRAMIDE HCL 10 MG/2ML VIAL IV SCH ×4 (00:28→17:10)
[2019-05-30] MEDS: ALBUTEROL SULF 0.083% NEB SOLN 3 ML NEB NEB SCH ×5 (00:40→19:24)
--- NOTE | 2019-05-30 02:27 | Progress Note ---
DATE: 05/29/2019 CONSULT REASON: Loculated pleural effusion, now status post decortication with chest tube placement. SUBJECTIVE: Sitting up in bed. Feeling well. Chest tubes do not have any air leak. PHYSICAL EXAMINATION: CARDIAC: Regular rate and rhythm. Normal S1 and S2. No murmur. LUNGS: Breath sounds are full on the left, but diminished somewhat on the right. Pleur-Evac's are on water-seal. One of them does not have any variation with respiration. The other Pleur-Evac does have variation with respiration. The pleural effusion seems to be draining around one of the tubes. Drainage into the tubes is serous, but minimal. ABDOMEN: Benign. EXTREMITIES: No cyanosis, clubbing, or edema. NEUROLOGIC: Alert and oriented x3. LABORATORY DATA: Chest x-rays are reviewed. Right lung expansion is not complete, but has been fairly stable over the last several days. There is a report of increasing air pocket, but this does not appear marked on the serial films. PROCEDURE: Chest tube that did not have respiratory variation was removed. Other chest tube was placed to Heimlich tube drainage. Chest x-ray after these changes showed stable right lung. IMPRESSION: Loculated hydropneumothorax of the right lung. One chest tube removed and the other placed to a Heimlich valve. Postprocedure chest x-ray okay. We will repeat chest x-ray in a.m. MD MELVIN Estrada/HAIL /[id number]
[2019-05-30 04:06] VITALS: BP 128/60
[2019-05-30] MEDS: IRON SUCROSE 100 MG in SODIUM CHLORIDE 0.9% 100 ML 100 ML IV SCH (05:30)
[2019-05-30 05:47] LABS: BASOPHILS % 0.4 % (0.0-1.0); EOSINOPHILS # (AUTO) 0.2 (0.0-0.4); EOSINOPHILS % 3.1 % (0.0-6.0); LYMPHOCYTES # (AUTO) 0.9 (1.0-3.2); LYMPHOCYTES % 11.9 % (18.0-39.1); MEAN CORPUSCULAR HEMOGLOBIN 28.4 pg (28-32); MEAN CORPUSCULAR HGB CONC 32.2 g/dL (31-35); MEAN CORPUSCULAR VOLUME 88.4 fL (81-99); MONOCYTES % 13.2 % (4.4-11.3); NEUTROPHILS # (AUTO) 5.4 (2.1-6.9); NEUTROPHILS % 70.9 % (38.7-80.0); PLATELET COUNT 153 x10e3/uL (140-360); RED BLOOD COUNT 2.32 x10e6/uL (4.3-5.7); RED CELL DISTRIBUTION WIDTH 14.6 % (11.7-14.4)
[2019-05-30 05:52] LABS: HEMATOCRIT 20.5 % (38.2-49.6); HEMOGLOBIN 6.6 g/dL (14.0-18.0)
[2019-05-30 06:26] LABS: ANION GAP 13.5 mmol/L (8-16); CALCIUM 7.9 mg/dL (8.4-10.2); CREATININE, SERUM 4.78 mg/dL (0.72-1.25); POTASSIUM 4.5 mmol/L (3.5-5.1)
--- NOTE | 2019-05-30 06:49 | Diagnostic Imaging Report ---
EXAMINATION: CHEST SINGLE (PORTABLE) COMPARISON: Chest x-rayS 05/29/2019 INDICATION: Chest tube removal ^chest tube ^[id number] ^0510 DISCUSSION: Frontal view of the chest obtained at 0521 hours. HEART AND MEDIASTINUM: Stable cardiomegaly LINES: Right IJ catheter stable in position. Right basilar chest tube has been removed. Right apical chest tube is stable in position LUNGS/PLEURA: Right apical hydropneumothorax is stable. Loculated right basilar pneumothorax is increasing in the amount of fluid. Retrocardiac airspace opacity is similar. BONES AND SOFT TISSUES: No focal osseous lesion. The soft tissues are normal. IMPRESSION: No change in right apical hydropneumothorax. Increasing amount of fluid in loculated left hydropneumothorax. Stable retrocardiac opacity, likely atelectasis and small pleural effusion. Signed by: Dr. Wes Cruz MD on 05/30/2019 6:45 AM
[2019-05-30] MEDS: ACETYLCYSTEINE 20% INHAL SOLN 30 ML VIAL INH SCH ×2 (07:33→19:00)
[2019-05-30 08:00] VITALS: BP 144/64
[2019-05-30] MEDS: SUCRALFATE 1 GM TAB PO SCH ×4 (08:06→20:09)
[2019-05-30] MEDS: SEVELAMER CARBONATE 800 MG TAB PO SCH ×3 (08:06→16:40)
[2019-05-30] MEDS: FOLIC ACID 1 MG TAB PO SCH (08:06)
[2019-05-30] MEDS: METOPROLOL TARTRATE 25 MG TAB PO SCH ×2 (08:06→20:09)
[2019-05-30] MEDS: CLARITHROMYCIN 500 MG TAB PO SCH ×2 (08:06→20:09)
[2019-05-30] MEDS: CYANOCOBALAMIN INJ 1,000 MCG/ML VIAL IM SCH (08:06)
[2019-05-30] MEDS: CRESTOR 10MG PO SCH ×2 (08:06→20:09)
[2019-05-30] MEDS: AMMONIUM LACTATE 12% LOTION 225GM BTL TOP SCH ×2 (08:06→16:40)
[2019-05-30] MEDS: PANTOPRAZOLE SOD 40 MG TABEC PO SCH ×2 (08:06→20:09)
[2019-05-30] MEDS ORDERED: SODIUM CHLORIDE 0.9% 250ML 250 ML IV ONE (09:30)
[2019-05-30 12:00] VITALS: BP 155/70
--- NOTE | 2019-05-30 12:24 | Progress Note ---
DATE: 05/30/2019 SUBJECTIVE: The patient is seen at bedside, feeling a little bit stronger. Able to walk little bit with physical therapy. Decreased pain and burning to both lower extremities. Complaining of itching. OBJECTIVE: VITAL SIGNS: Afebrile. Vital signs stable with a pulse rate of 100, respiration rate 26, blood pressure 144/64, and O2 saturation 100%. EXTREMITIES: Ulceration healing slowly, but healing. Less than 1.5 cm in diameter with necrosis noted down to the dermis. Eczema, cellulitis, and excoriations noted to both feet with skin temperature between cold and warm to touch. LABORATORY DATA: Labs show a white blood cell count of 7.6 and hemoglobin 6.6. ASSESSMENT: Peripheral arterial disease, diabetic neuropathy with a grade 2 ulceration. PLAN: Continue Bactroban. Continue AmLactin 12%. Continue physical therapy with the aid of a surgical shoe. We will continue to follow. YULI Sutton/BRIT /[id number]
[2019-05-30 13:58] VITALS: BP 155/70
[2019-05-30 16:00] VITALS: BP 165/70
--- NOTE | 2019-05-30 16:45 | NUR ---
CENTRAL LINE DISCONTINUED AT THIS TIME TIP INTACT. PRESSURE DRESSING APPLIED WILL MONITOR CLOSELY
--- NOTE | 2019-05-30 19:41 | Progress Note ---
DATE: 05/30/2019 CHIEF COMPLAINT: Generalized weakness with shortness of breath and pleural effusion. SUBJECTIVE: Heimlich valve placed, status post dialysis this morning. Transfused 2 units of PRBCs for hemoglobin of 6.6. Generalized weakness, denies any chest pain or fever. OBJECTIVE: VITAL SIGNS: Temperature 98.6, pulse is 97, respirations 20, blood pressure is 155/70, pulse ox is 100% on room air. GENERAL: Chronically ill-appearing, mild nourished, and generalized weakness. HEENT: Normocephalic, atraumatic. NECK: Supple. LUNGS: With decreased breath sounds, right side. Heimlich valve in place. CARDIOVASCULAR: Regular rate and rhythm. GI: Soft and nontender. NEUROLOGIC: Alert, awake, oriented x3. MUSCULOSKELETAL: Moves all extremities, but very weak and fragile. PSYCH: Calm. LABORATORY DATA: WBC 7.65, hemoglobin 6.6, hematocrit 20.5, and platelets 153. Sodium 130, potassium 4.5, carbon dioxide 25. BUN is 32, creatinine 4.78. Estimated GFR is 13.5, calcium is 7.9, phosphorus is 1.0. IMAGING: Chest x-ray with no change and right apical hydropneumothorax, increasing amount of fluid, and loculated left hydropneumothorax. Stable cardiac opacity, likely atelectasis and small pleural effusion. IMPRESSION: 1. Dyspnea due to recurrent pleural effusions. Status post thoracentesis of the left lung and decortication to the right side per CV surgeon and chest tube changed without Heimlich valve. Chest x-ray stable. Pulmonary on the case. 2. Anemia of chronic diseases and iron deficiency anemia. Status post a total of 7 units of PRBCs. Hemoglobin this morning is 6.6. 3. Hypertension, now hypotensive. We will monitor blood pressure closely and treat as needed. 4. End-stage renal disease. On dialysis Sunday, Sunday, Sunday per Nephrology. 5. Hyponatremia. Improving some. Sodium is 130. Defer to Nephrology. 6. High cholesterol. On statin. 7. Poor appetite and dysphagia. Defer to GI. 8. Hypoglycemia. Now stable. Encourage p.o. intake. 9. Right foot diabetic ulcer. Status post debridement per Podiatry. 10. Severe protein nutrition. Increase p.o. protein intake. 11. Increased debility. PT, OT, and may need SNF placement. 12. Deep venous thrombosis prophylaxis. No chemical anticoagulation due to anemia. PLAN: To continue current treatment. Once cleared by consultants, may consider SNF versus LTAC. Dictated by HIGINIO Dunn Belenching Naseem Sow MD MY/MODL /[id number]
[2019-05-30 19:43] VITALS: BP 167/76
[2019-05-30] MEDS: NIFEDIPINE CR 30 MG TAB PO SCH (20:09)
[2019-05-30] MEDS: ACETAMINOPHEN 325 MG TAB PO PRN (20:10)
--- NOTE | 2019-05-30 20:31 | NUR ---
cleaned the patient, change the linens, he able to move to recliner without any difficulty. vitals signs checked, meds scheduled and PRN was given. patient is talking on the phone at this time, no distress noted , denied any discomfort, call light within reach, will continue to monitor.
--- NOTE | 2019-05-30 22:55 | NUR ---
patient back to bed from sitting in recliner, tolerated well, diaper changed, no distress noted denied any discomfort, will continue to monitor.
[2019-05-31] VITALS (9 sets, daily range): BP systolic 96–156; BP diastolic 51–73
[2019-05-31] MEDS: METOCLOPRAMIDE HCL 10 MG/2ML VIAL IV SCH ×5 (00:05→23:43)
[2019-05-31] MEDS: ALBUTEROL SULF 0.083% NEB SOLN 3 ML NEB NEB SCH ×4 (02:27→19:08)
--- NOTE | 2019-05-31 03:57 | NUR ---
dr Brayan Lockhart came and checked patient in the room, orders received and carried out.
[2019-05-31] MEDS ORDERED: DIPHENHYDRAMINE HCL 25 MG CAP PO ONE (04:00)
[2019-05-31] MEDS: IRON SUCROSE 100 MG in SODIUM CHLORIDE 0.9% 100 ML 100 ML IV SCH (04:26)
[2019-05-31 05:30] LABS: BASOPHILS # (AUTO) 0.1 (0.0-0.1); BASOPHILS % 1.1 % (0.0-1.0); EOSINOPHILS # (AUTO) 0.3 (0.0-0.4); EOSINOPHILS % 3.6 % (0.0-6.0); HEMATOCRIT 30.8 % (38.2-49.6); LYMPHOCYTES # (AUTO) 1.2 (1.0-3.2); LYMPHOCYTES % 14.3 % (18.0-39.1); MEAN CORPUSCULAR HEMOGLOBIN 28.4 pg (28-32); MEAN CORPUSCULAR HGB CONC 32.5 g/dL (31-35); MEAN CORPUSCULAR VOLUME 87.5 fL (81-99); MONOCYTES # (AUTO) 1.1 (0.2-0.8); MONOCYTES % 13.8 % (4.4-11.3); NEUTROPHILS # (AUTO) 5.5 (2.1-6.9); PLATELET COUNT 152 x10e3/uL (140-360); RED BLOOD COUNT 3.52 x10e6/uL (4.3-5.7); RED CELL DISTRIBUTION WIDTH 14.3 % (11.7-14.4)
[2019-05-31 06:00] LABS: ALBUMIN 2.3 g/dL (3.5-5.0); ALBUMIN/GLOBULIN RATIO 0.6 (0.8-2.0); ANION GAP 15.1 mmol/L (8-16); CALCIUM 8.2 mg/dL (8.4-10.2); CREATININE, SERUM 3.01 mg/dL (0.72-1.25); POTASSIUM 4.1 mmol/L (3.5-5.1)
[2019-05-31] MEDS: ACETYLCYSTEINE 20% INHAL SOLN 30 ML VIAL INH SCH ×2 (07:00→19:08)
--- NOTE | 2019-05-31 07:00 | NUR ---
Handoff report from overnight stocker nurse, in room patient is awake alert and oriented x3, denies pain, patient with thoracic tube drain in place draining scant serous sanguinous with dressing in place. Instructed to use call light when needing assistance.
[2019-05-31] MEDS: SEVELAMER CARBONATE 800 MG TAB PO SCH ×3 (08:06→18:21)
[2019-05-31] MEDS: SUCRALFATE 1 GM TAB PO SCH ×4 (08:06→20:54)
[2019-05-31] MEDS: CYANOCOBALAMIN INJ 1,000 MCG/ML VIAL IM SCH (08:24)
[2019-05-31] MEDS: CLARITHROMYCIN 500 MG TAB PO SCH ×2 (09:48→20:54)
[2019-05-31] MEDS: FOLIC ACID 1 MG TAB PO SCH (09:48)
[2019-05-31] MEDS: CRESTOR 10MG PO SCH ×2 (09:48→20:54)
[2019-05-31] MEDS: PANTOPRAZOLE SOD 40 MG TABEC PO SCH ×2 (09:48→20:54)
[2019-05-31] MEDS: AMMONIUM LACTATE 12% LOTION 225GM BTL TOP SCH ×2 (09:49→18:26)
--- NOTE | 2019-05-31 09:55 | NUR ---
Earnest held and returned to [facility]
[2019-05-31] MEDS: METOPROLOL TARTRATE 25 MG TAB PO SCH ×2 (09:57→20:58)
--- NOTE | 2019-05-31 15:34 | Progress Note ---
DATE: 05/31/2019 CHIEF COMPLAINT: Generalized weakness with shortness of breath due to pleural effusion. SUBJECTIVE: Heimlich valve in place, shortness of breath is improving. Appetite also improving. No fever, generalized weakness, was up to chair with nursing staff this morning. No chest pain, no fever, no nausea or vomiting. OBJECTIVE: VITAL SIGNS: Temperature 98.6, pulse is 81, respirations 19, blood pressure 104/65, pulse ox is 97% on room air. GENERAL: Chronically ill-appearing, with generalized weakness. HEENT: Normocephalic, atraumatic. NECK: Supple. LUNGS: With decreased breath sounds. Right side Heimlich valve in place. CARDIOVASCULAR: Regular rate and rhythm. GI: Soft and nontender. NEUROLOGIC: Alert, awake and oriented x3. MUSCULOSKELETAL: Moves all extremities, but very weak. PSYCH: Calm. LABORATORY DATA: WBC 8.26, hemoglobin 10.0, hematocrit 30.8. Sodium 135, potassium 4.1, CO2 27, creatinine 3.01, glucose 85, AST 25, ALT 20, total protein 6.3. IMPRESSION: 1. Dyspnea with recurrent pleural effusions. Status post thoracentesis to the left lung and decortication to the right per CV surgeon. Chest tube is removed and Heimlich valve in place. Chest x-ray stable. Pulmonary on the case. 2. Anemia of chronic diseases and iron deficiency anemia. Status post total of 7 units of PRBC. Hemoglobin is at 10. We will continue to monitor and transfuse if needed. 3. Hypertension, now hypotensive. Parameters in place for blood pressure medications. 4. End-stage renal disease. On dialysis Sunday, Sunday, Sunday per Nephrology. 5. Hyponatremia. Improving some. Defer to Nephrology. 6. High cholesterol. On statin. 7. Poor appetite and dysphagia. GI on the case. Improving appetite. 8. Hypoglycemia. Now stable. Encourage p.o. intake and DC sliding scale insulin. 9. Right foot diabetic ulcer. Status post debridement per Podiatry. Wound care per Podiatry. 10. Severe protein malnutrition. Increase p.o. protein intake. 11. Increased debility. PT, OT, and may need placement for further rehabilitation. 12. Deep vein thrombosis prophylaxis. No chemical anticoagulation due to anemia. PLAN: Continue current treatment. Recheck iron level. Once cleared by consultants, we will plan on discharge to SNF versus LTAC. Dictated by Ambar Moise, ANP MD RENEE Trevizo/HAIL /[id number]
--- NOTE | 2019-05-31 18:50 | Progress Note ---
DATE: 05/31/2019 CONSULT REASON: Loculated pleural effusion. SUBJECTIVE: Sitting up in bed. Feeling well. Remaining chest tube in place with Heimlich valve. PHYSICAL EXAMINATION: CARDIAC: Regular rate and rhythm. Normal S1, S2. No murmurs. LUNGS: Breath sounds are full on the left, but diminished somewhat on the right. One chest tube is still in place with Heimlich valve. No discernible air leak. Dressing on the old chest tube site is dry. ABDOMEN: Benign. No masses. EXTREMITIES: No cyanosis, clubbing, or edema. NEUROLOGIC: Alert and oriented x3. LABORATORIES AND IMAGING: Chest x-ray is reviewed. The lung is more expanded than previously with possible loculated pneumothorax at the apex and at the base on the right. IMPRESSION: Doing well with Heimlich valve. MD MELVIN Estrada/HAIL /[id number]
--- NOTE | 2019-05-31 18:55 | Progress Note ---
DATE: 05/31/2019 SUBJECTIVE: The patient at bedside, doing somewhat better, sitting out of his bed, able to put a little weight on his right foot. OBJECTIVE: VITAL SIGNS: Afebrile, pulse rate 81, respiration 19, blood pressure 104/65, and O2 saturation 97%. LABORATORY DATA: Labs show white blood cell count of 8.27. Ulceration continues to improved. Positive edema and eczema to both lower extremities. Pedal pulses palpable. Skin temperature being warm and cool to touch. ASSESSMENT: Diabetic neuropathy, grade 2 ulcer healing slowly with eczema, dermatitis. PLAN: Continue applying the AmLactin 12% lotion b.i.d. to both legs and feet. Continue Bactroban ointment. Continue surgical shoe when weightbearing. We will continue to follow. YULI Sutton/BRIT /[id number]
--- NOTE | 2019-05-31 20:02 | NUR ---
Patient is progressing well at CGA level and may go home with 24 hr supervision and home health PT services if functional ability is the sole basis for D/C planning. Addendum: 05/31/19 at 2004 by Rene Crowley PT Amended: Links added.
[2019-05-31] MEDS: NIFEDIPINE CR 30 MG TAB PO SCH (20:58)
[2019-06-01] VITALS (11 sets, daily range): BP systolic 81–113; BP diastolic 45–64
[2019-06-01] MEDS: ALBUTEROL SULF 0.083% NEB SOLN 3 ML NEB NEB SCH ×4 (00:06→20:10)
[2019-06-01] MEDS: ZOLPIDEM TARTRATE 5 MG TAB PO PRN ×2 (02:41→23:29)
[2019-06-01] MEDS: METOCLOPRAMIDE HCL 10 MG/2ML VIAL IV SCH ×3 (06:00→17:35)
[2019-06-01] MEDS: ACETYLCYSTEINE 20% INHAL SOLN 30 ML VIAL INH SCH ×2 (07:00→20:10)
--- NOTE | 2019-06-01 08:11 | Diagnostic Imaging Report ---
EXAMINATION: CHEST 2 VIEWS COMPARISON: Chest x-rayS 05/30/2019 INDICATION:f/u DISCUSSION: HEART AND MEDIASTINUM: Stable cardiomegaly LINES: Right IJ catheter has been removed. Right apical chest tube is stable in position LUNGS/PLEURA: Right apical hydropneumothorax is stable. Loculated right basilar pneumothorax is increasing in the amount of fluid. Left basilar opacity likely due to combination of effusion and atelectasis has increased. BONES AND SOFT TISSUES: No focal osseous lesion. The soft tissues are normal. IMPRESSION: 1. No change in right apical hydropneumothorax. 2. Increasing amount of fluid in loculated left hydropneumothorax. 3. Left basilar opacity has increased likely due to combination of effusion and atelectasis. Signed by: Reza Resendez MD on 06/01/2019 8:09 AM
[2019-06-01] MEDS: SEVELAMER CARBONATE 800 MG TAB PO SCH ×3 (08:42→17:35)
[2019-06-01] MEDS: SUCRALFATE 1 GM TAB PO SCH ×4 (08:42→20:55)
[2019-06-01] MEDS: CRESTOR 10MG PO SCH ×2 (08:42→20:55)
[2019-06-01] MEDS: FOLIC ACID 1 MG TAB PO SCH (08:42)
[2019-06-01] MEDS: CYANOCOBALAMIN INJ 1,000 MCG/ML VIAL IM SCH (08:42)
[2019-06-01] MEDS: CLARITHROMYCIN 500 MG TAB PO SCH ×2 (08:42→20:55)
[2019-06-01] MEDS: PANTOPRAZOLE SOD 40 MG TABEC PO SCH ×2 (08:43→20:56)
[2019-06-01] MEDS: AMMONIUM LACTATE 12% LOTION 225GM BTL TOP SCH ×2 (08:43→17:35)
[2019-06-01] MEDS: METOPROLOL TARTRATE 25 MG TAB PO SCH ×2 (08:43→20:02)
[2019-06-01] MEDS ORDERED: SODIUM CHLORIDE 0.9% 500ML 500 ML IV ONE (13:15)
--- NOTE | 2019-06-01 13:18 | NUR ---
Pt with low bp and not feeling good. BP 85/61 HR 68. Called and spoke with [facility] for Dr Sow, orders for IV fluids x1 and monitor.
--- NOTE | 2019-06-01 14:23 | Progress Note ---
DATE: 06/01/2019 SUBJECTIVE: The patient is seen at bedside, not in good spirits somewhat depressed on this date, feeling weak. OBJECTIVE: VITAL SIGNS: Afebrile, pulse rate 60, respiration 14, blood pressure 104/57, O2 saturation 100%. EXTREMITIES: Ulceration to the right lower extremity improving. Skin temperature warm and cool to touch on this date from the midtarsal joint distally. Ulceration less than 1.5 cm in diameter, superficial necrosis noted. Eczema to both lower extremities with dermatitis in both feet. ASSESSMENT: 1. Eczema. 2. Dermatitis. 3. Diabetic neuropathy with a grade 2 ulceration, healing slowly. PLAN: Continue Bactroban ointment. Continue AmLactin 12% lotion. Continue range of motion exercise weightbearing with the surgical shoe. We will continue to follow. YULI Sutton/BRIT /[id number]
--- NOTE | 2019-06-01 14:35 | NUR ---
Visit made by the Spiritual Care Department Pastoral Visitor, Jose Martin. PV provided pastoral presence, hospitality, communion, prayer, and supportive listening. Pastoral Visitor reminded pt/family of the scope of [facility] and availability. [facility] [employer] Spiritual Care Department O: [phone] Pager: [phone] ([phone] number calling from)
--- NOTE | 2019-06-01 16:00 | Diagnostic Imaging Report ---
EXAMINATION: CHEST SINGLE (PORTABLE) COMPARISON: Chest x-ray performed earlier same day INDICATION: ^sob ^[id number] ^1530 DISCUSSION: HEART AND MEDIASTINUM: Stable cardiomegaly LINES: Right apical chest tube is stable in position LUNGS/PLEURA: Right apical hydropneumothorax is stable. Loculated right basilar pneumothorax has improved. Increased right basilar opacity which could be due to increasing atelectasis. Left basilar opacity likely due to combination of effusion and atelectasis is unchanged. BONES AND SOFT TISSUES: No focal osseous lesion. The soft tissues are normal. IMPRESSION: 1. No change in right apical hydropneumothorax. 2. Improved loculated right pneumothorax. 3. Increased right basilar opacity likely due to worsening atelectasis. 4. Stable left basilar opacity has increased likely due to combination of effusion and atelectasis. Signed by: Reza Resendez MD on 06/01/2019 3:58 PM
--- NOTE | 2019-06-01 16:43 | Progress Note ---
DATE: 06/01/2019 CHIEF COMPLAINT: Generalized weakness associated with shortness of breath with recurrent pleural effusion. SUBJECTIVE: The patient was seen resting in bed, appears to be more weak. He reports feeling lightheaded and weak. Blood pressure was noted to be systolic 82/54. Getting IV fluids to help with blood pressure. Blood sugar is 117. He is afebrile, he denies any chest pain, nausea, or vomiting. OBJECTIVE: VITAL SIGNS: Temperature is 98.8, pulse is 60, respirations 14, blood pressure 87/54, and pulse ox is 100% on room air. GENERAL: Chronically ill-appearing, weak, fatigue. HEENT: Normocephalic and atraumatic. NECK: Supple. LUNGS: Decreased breath sound right side Heimlich valve in place. CARDIOVASCULAR: Regular rate and rhythm. GI: Soft and nontender. NEUROLOGIC: Alert, awake, and oriented x3. MUSCULOSKELETAL: Moves all extremities, but weak. PSYCH: Calm. ASSESSMENT: 1. Dyspnea with recurrent pleural effusions. Status post thoracentesis to the left side and decortication to the right per CV surgeon. Chest tube removed and Heimlich valve in place. Chest x-ray stable. Pulmonary and CV surgeon on the case. 2. Anemia of chronic disease and iron deficiency anemia. Status post transfusion. Hemoglobin is stable. We will continue to monitor H and P as needed. 3. Hypertension. Now hypotensive. Parameters in place. We will give half a liter of NS for extreme low blood pressure and feeling of dizziness. 4. End-stage renal disease. On dialysis Sunday, Sunday, Sunday per Nephrology. 5. Hyponatremia. Improving some. We will continue to monitor closely. 6. High cholesterol. On statin. 7. Poor appetite and dysphagia. GI on the case. Improving appetite. 8. Hypoglycemia. Now stable. We will continue to encourage p.o. intake and discontinue insulin sliding scale. 9. Right foot diabetic ulcer. Status post debridement per Podiatry. Wound care per Podiatry. 10. Severe protein malnutrition. Increase p.o. intake and encourage frequent meals. 11. Increased debility. Continue with PT, OT. We will consult Case Management for placement. 12. Deep vein thrombosis prophylaxis. No chemical anticoagulation due to anemia. PLAN: Continue current treatment, very weak today with hypotension. We will give half a liter of NS at 125 and monitor blood pressure closely. Once cleared by consultants, we can plan on placing the patient to SNF. Dictated by HIGINIO Dunn MD RENEE Trevizo/BRIT /[id number]
--- NOTE | 2019-06-01 19:00 | NUR ---
Report received from Ashley Yates RN. Pt received resting in bed with eyes open, AAOx4, pt reports no pain or discomfort at this time, pt on room air with no signs of distress noted SPO2 is 100%. Care plan reviewed.
[2019-06-01] MEDS: NIFEDIPINE CR 30 MG TAB PO SCH (20:02)
--- NOTE | 2019-06-01 20:55 | NUR ---
PM medication given at this time except BP/HR medications held (refer to [facility]) due to lower BP and this was explained to the pt. All medications given were named, explained purpose and desired effect, and side effects to the pt and his family member at the bedside.
[2019-06-02] VITALS (8 sets, daily range): BP systolic 114–158; BP diastolic 62–76
[2019-06-02] MEDS: METOCLOPRAMIDE HCL 10 MG/2ML VIAL IV SCH ×5 (00:01→23:49)
[2019-06-02] MEDS: ALBUTEROL SULF 0.083% NEB SOLN 3 ML NEB NEB SCH ×4 (00:04→20:20)
--- NOTE | 2019-06-02 01:26 | NUR ---
Dr. Faheem Lockhart present at this time and assessing the pt. Notified him of pts BM today, that BP meds where held tonight, and that the pt did received his Ambien before midnight (refer to [facility]).
--- NOTE | 2019-06-02 02:20 | NUR ---
Pt request sink light to be turned off at this time. Pt instructed to please use call light if he needs anything. Pt reports no pain or discomfort at this time. No signs of distress noted.
--- NOTE | 2019-06-02 05:33 | NUR ---
Morning dose of reglan administered at this time. Medication named and purpose with desired effects explained.
[2019-06-02 06:01] LABS: BASOPHILS # (AUTO) 0.1 (0.0-0.1); EOSINOPHILS # (AUTO) 0.3 (0.0-0.4); HEMATOCRIT 26.5 % (38.2-49.6); HEMOGLOBIN 8.9 g/dL (14.0-18.0); LYMPHOCYTES # (AUTO) 1.1 (1.0-3.2); LYMPHOCYTES % 15.7 % (18.0-39.1); MEAN CORPUSCULAR HEMOGLOBIN 28.6 pg (28-32); MEAN CORPUSCULAR HGB CONC 33.6 g/dL (31-35); MEAN CORPUSCULAR VOLUME 85.2 fL (81-99); MONOCYTES % 13.8 % (4.4-11.3); NEUTROPHILS # (AUTO) 4.6 (2.1-6.9); NEUTROPHILS % 65.1 % (38.7-80.0); PLATELET COUNT 150 x10e3/uL (140-360); RED BLOOD COUNT 3.11 x10e6/uL (4.3-5.7); RED CELL DISTRIBUTION WIDTH 14.1 % (11.7-14.4)
[2019-06-02 06:26] LABS: ANION GAP 16.9 mmol/L (8-16); CALCIUM 7.9 mg/dL (8.4-10.2); CREATININE, SERUM 5.56 mg/dL (0.72-1.25); POTASSIUM 4.9 mmol/L (3.5-5.1)
[2019-06-02 06:37] LABS: % IRON SATURATION 75 % (15-50); IRON 104 ug/dL (65-175); TOTAL IRON BINDING CAPACITY 139 ug/dL (261-478); TRANSFERRIN 99 mg/dL (174-364)
[2019-06-02] MEDS: ACETYLCYSTEINE 20% INHAL SOLN 30 ML VIAL INH SCH ×2 (06:47→19:00)
[2019-06-02] MEDS: SUCRALFATE 1 GM TAB PO SCH ×4 (07:46→20:38)
[2019-06-02] MEDS: SEVELAMER CARBONATE 800 MG TAB PO SCH ×3 (07:47→16:54)
[2019-06-02] MEDS: CLARITHROMYCIN 500 MG TAB PO SCH ×2 (08:01→20:38)
[2019-06-02] MEDS: CRESTOR 10MG PO SCH ×2 (08:01→20:38)
[2019-06-02] MEDS: METOPROLOL TARTRATE 25 MG TAB PO SCH ×2 (08:01→20:39)
[2019-06-02] MEDS: FOLIC ACID 1 MG TAB PO SCH (08:01)
[2019-06-02] MEDS: PANTOPRAZOLE SOD 40 MG TABEC PO SCH ×2 (08:01→20:40)
[2019-06-02] MEDS: AMMONIUM LACTATE 12% LOTION 225GM BTL TOP SCH ×2 (08:57→16:03)
[2019-06-02] MEDS: CYANOCOBALAMIN INJ 1,000 MCG/ML VIAL IM SCH (08:57)
--- NOTE | 2019-06-02 12:07 | Progress Note ---
DATE: 06/02/2019 CHIEF COMPLAINT: Generalized weakness associated with shortness of breath due to recurrent pleural effusion. SUBJECTIVE: The patient is resting with no acute distress. He reports feeling a little bit better today. Blood pressure is improved to 140s. We will continue to monitor. Reports no chest pain, nausea, or vomiting. He is tolerating diet. OBJECTIVE: VITAL SIGNS: Temperature is 98.1, pulse is 100, blood pressure 148/62, and pulse ox is 95% on room air. GENERAL: Chronically ill-appearing, weak. HEENT: Normocephalic and atraumatic. NECK: Supple. LUNGS: Decreased breath sounds, right side Heimlich valve in place. CARDIOVASCULAR: Regular rate and rhythm. GI: Soft and nontender. NEUROLOGIC: Alert, awake, and oriented x3. MUSCULOSKELETAL: Moves all extremities, but week. PSYCH: Calm. LABORATORY DATA: WBC 7.08, hemoglobin 8.9, hematocrit 26.5, and platelet 150. Sodium 129, potassium 4.9, BUN is 46, creatinine 5.56, iron 104. IMPRESSION: 1. Dyspnea with recurrent pleural effusions. Status post thoracentesis and decortication per CV surgeon. Chest tube changed to Heimlich valve. Chest x-ray stable. Pulmonary and CV on the case. 2. Anemia of chronic disease and iron deficiency anemia. Status post transfusion of PRBC total of 7. Hemoglobin is 8.9 today. We will continue to monitor. 3. Hypertension. We will decrease metoprolol to 12.5 mg and nifedipine to 30 mg at bedtime for episodes of hypotension. 4. End-stage renal disease. On dialysis, Sunday, Sunday, and Sunday per Nephrology. 5. Hyponatremia. Sodium is 129 today. We will defer to Nephrology. 6. High cholesterol. On statin. 7. Poor appetite and dysphagia. GI on the case. Appetite is much improved. 8. Hypoglycemia. Likely due to poor p.o. intake. Now stable. 9. Right foot diabetic ulcer. Status post debridement per Podiatry. Wound care per Podiatry. 10. Severe protein malnutrition. Increase p.o. intake and encourage frequent high-protein meals. 11. Increased debility. Continue with PT/OT. We will plan on discharge to SNF versus acute rehab. 12. Deep vein thrombosis prophylaxis. No chemical anticoagulation due to anemia. PLAN: To continue current treatment, PT/OT, once cleared by consultants. May proceed with placing to acute rehab unit. Dictated by Ambar Moise, ANP Heather Sow MD MY/MODL /[id number]
--- NOTE | 2019-06-02 12:33 | NUR ---
Nutrition Intervention Note RD Recommendation(s) for Physician: -Recommend removing Phos restriction from current diet 2/2 hypophosphatemia -Continue Glucerna Shake with meals -Recommend Renal MVI once daily for adequacy -Recommend discontinuing Phos binder for now 2/2 hypophosphatemia -Check Phos daily and replace as needed Pt meets criteria for severe protein calorie malnutrition Plan of Care: RD following, monitoring for tolerance and adequacy. Nutrition Supplement Nutrition reason for involvement: follow up RD Assessment 06/02: Pt seen for f/u, sleeping at time of visit. Pt currently eating 50-100% of meals and drinking Glucerna shakes. No GI distress per RN. Plan for HD today. Pt discussed during am rounds- plan for SNF evaluation, pt very deconditioned. Current diet and supplement remain appropriate. Hypophosphatemia noted, pt currently on PO4 binder. Will continue to monitor. 05/27: Pt seen for follow up. Pt appetite and intake have significantly improved, pt consistently eating 75-100% of meals currently. Pt reports that he is not drinking Glucerna Shake 2/2 causing loose stool or immediate BM after drinking. Pt decline any additional supplementation 2/2 flavor preference for strawberry only. Pt denies any GI distress. Pt with no questions or concerns at time of visit. Pt discussed during am rounds. Will continue to monitor. 05/23: RD received consult for nutrition assessment. Per RN, pt is eating well today and consumed 100% of his breakfast and lunch with nutrition supplements. No N/V per RN. Pt has various weights in chart. On 05/17, pt weighed 136 lbs, 121 lbs on 05/18 and 110 lbs on 05/22. Of note, pt is receiving lasix per medications in chart. Will continue to monitor. 05/21: Pt seen for follow up. Pt s/p HD tx today, has chest tube in place 2/2 post operative pneumothorax. Pt with fair intake and poor appetite, 50-75% of meals per FS. Pt with 0% intake of lunch tray at time of visit, states he did not like the meal today and that he does not like vanilla flavored Nepro. Spoke with seafood farmer, plan to obtain mixed hernandez Nepro per pt preference. Encouraged po intake of meals and supplements, pt verbalized understanding. Pt denies GI distress. Pt discussed during am rounds and discussed with RN. Chart reviewed. Will continue to monitor. 05/16: Follow up: Pt was seen resting within the ICU. The pt had surgery performed yesterday, currently on clears. Spoke about pt in rounds, pt will receive dialysis today and wound debridement tmrw. Will continue to monitor. 05/14: Follow up/consult: Pt was seen finishing his breakfast, he consumed 100% of his breakfast and stated that he could even eat some more. Received consult from MD, MD wanted the pt to consume Nepro supplement twice at each meal, this order was placed within [employer]. Pt denied N/V/C/D/ chewing or swallowing issues at this time. Thoracoscopy or open drainage will be arranged per MD. Will continue to monitor. (05/09/2019) Chart reviewed. Labs and meds reviewed. Pt is a 58 year old male admitted with anemia, ESRD, pleural effusion, and pneumonia. Pt is currently NPO. Pt was unable to quantify PO intake amount prior to admission at time of visit. Pt mentioned he had lost weight and used to weigh 150 lbs 2 months ago. Pt currently has a weight of 139 lbs in chart. If accurate, this would be a 7% wt loss in 2 months significant weight loss. No N/V or chewing/swallowing issues noted. Recommend Nepro for added nutrition when diet advances. Will continue to monitor. Principal Problems/Diagnoses: anemia, ESRD, pleural effusion, and pneumonia PMH: HTN, high cholesterol, ESRD, anemia of chronic disease GI: LBM / Skin: chest tube site and foot wound Labs: 06/02: Na 129, BUN 46, Cr 5.56 05/30: Phos 1 Meds: vitamin B12, protonix, crestor, folic acid, renvela, dilaudid, zofran Ht: 72 in (per pt) Wt: 110 lbs (05/22) 121 lbs (05/18) 136 lbs (05/17), 137 lbs (05/14) 139 lbs (05/07) Of note, pt is receiving lasix per medications in chart (05/23) BMI: 14.9 kg/m2 IBW: 178 lb Malnutrition Evaluation (05/23/2019) Patient meets criteria for severe protein calorie malnutrition. Energy intake: Adequate PO intake reported today. Pt was previously consuming <75% of meals for > 7 days Weight loss: 7% weight loss in 2 months Fat loss: moderate, hollowing of eyes Muscle loss: Moderate lower extremities Supporting Evidence: Fluid accumulation: no accumulation identified per MD note Functional Status: unable to evaluate Nutrition Prescription (Diet Order): 1800 ADA, Renal Estimated Nutritional Needs: 5209-7294 calories/day (30-35 kcal/kg CBW) 60-75 g protein/day (1.2-1.5 g pro/kg CBW) Diet Adequacy: meeting kcal needs, meeting protein needs Tolerance: tolerating diet Diet Education Needs Assessment: Diet education not indicated Nutrition Care Level: moderate Nutrition Diagnosis: Severe protein kcal malnutrition related to chronic illness as evidenced by 7% weight loss in 2 months, moderate muscle and fat depletion, and pt previously consuming <75% of meals of > 7 days. Goal: Patient will meet 75-100% of estimated needs by follow up Progress: progressing- pt eating 75-100% of meals daily Interventions: -mineral (Phos, K, Na), carbohydrate - modified diet, Commercial beverage Monitoring/Evaluation: -Total energy intake, Total protein intake, Modified diet, Liquid supplement, Weight change Signed: Nancy Tellez RD, LD, [facility]
--- NOTE | 2019-06-02 16:40 | NUR ---
ORDERS FOR DR MALIN [facility] SIGNED AND ON CHART CRYSTAL WITH [facility] NOTIFIED OF CONSULT CLINICALS FAXED TO [phone]; CONFIRMATION REC'D
--- NOTE | 2019-06-02 18:09 | NUR ---
Dr. Rivas paged with AM lab results. ordered consult for Dr. Doran. Pt ambulated in hallway with walker with physical therapy. Foam dressing changed to saccum. Dialysis at bedside, 1700 Meds held for dialysis. Will continue to monitor the patient.
[2019-06-02] MEDS: NIFEDIPINE CR 30 MG TAB PO SCH (20:40)
[2019-06-02] MEDS: ZOLPIDEM TARTRATE 5 MG TAB PO PRN (23:51)
[2019-06-03] VITALS (8 sets, daily range): BP systolic 92–161; BP diastolic 55–71
--- NOTE | 2019-06-03 00:01 | Progress Note ---
DATE: 06/02/2019 SUBJECTIVE: The patient is at bedside, getting dialyzed, in no distress. OBJECTIVE: VITAL SIGNS: Afebrile. Pulse rate 93, respirations 16, blood pressure 145/70, and O2 saturation 98%. EXTREMITIES: Ulceration plantar aspect right foot continues to improve. Positive eczema. Skin temperature cool to touch on this date with pedal pulses palpable, but somewhat diminished to both the DP and PT. Eczema noted from the knees distally with excoriations bilaterally. LABORATORY DATA: White blood cell count of 7.08. ASSESSMENT: Dermatitis, diabetic neuropathy grade 2 ulceration measuring 1.5 cm in diameter or less with some pain upon palpation. PLAN: Continue applying Bactroban ointment. Continue AmLactin 12%. Continue offloading. Continue physical therapy with surgical shoe. We will continue to follow. YULI Sutton/BRIT /[id number]
[2019-06-03] MEDS: ALBUTEROL SULF 0.083% NEB SOLN 3 ML NEB NEB SCH ×4 (00:39→19:35)
--- NOTE | 2019-06-03 00:51 | Consultation ---
DATE OF CONSULTATION: 06/02/2019 REASON FOR CONSULTATION: 1. Debility secondary to loculated right pleural effusion. 2. End-stage renal disease, on hemodialysis. 3. Debilitation overall. HISTORY: A 58-year-old Latin male, who has end-stage renal disease on hemodialysis, who came into the hospital with loculated right pleural effusion, underwent thoracocentesis, but the effusion persists, came in originally on 05/07/2019. He has had a very lian course and very ill. He underwent a further surgical drainage. He is now on a regular unit. I am being asked to evaluate for rehab needs. PAST MEDICAL HISTORY: Includes diabetes, hypertension, CHF, end-stage renal disease on hemodialysis, and anemia. SOCIAL HISTORY: Lives with a friend in a one-caio home. States he was fairly ambulatory though cannot quantify for me. FAMILY HISTORY: Positive for diabetes. ALLERGIES: NONE. HABITS: Nonsmoker, nondrinker. CONSTITUTIONAL REVIEW OF SYSTEMS: An 11-point review of systems as per the patient, except for fatigue and malaise. He denies. FAMILY HISTORY: Denies. Therapy fiore, he had only one therapy session that was two days ago and at that point, he was contact guard assist with gait transfers, even though he has somebody it would be able to help. LABORATORY STUDIES: White cell count 7.08, hemoglobin is 8.9, hematocrit 26.5, platelets of 150. His hemoglobin has been fluctuating. Sodium 129, potassium 4.9, BUN 46, creatinine 5.56. His most recent chest x-ray was two days ago, which showed . PHYSICAL EXAMINATION: GENERAL: Currently, he is receiving hemodialysis. EYES: Gaze is conjugate. He does look very weak, very tired. HEART: Regular. LUNGS: Diminished breath sounds. ABDOMEN: Nondistended. EXTREMITIES: Functional range of motion. Upper extremities did not test his left arm secondary to his line being placed for his hemodialysis. He had functional range of motion. 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 In the lower extremities, 4/5 strength. IMPRESSION: 1. Debilitation. 2. End-stage renal disease, on hemodialysis. 3. The patient with right pleural effusion, persistent. 4. Diabetic neuropathy. 5. Fluid overload. 6. Hypertension. 7. Anemia of chronic disease. 8. Hyperlipidemia. PLAN: Therapies have been initiated. We will check with the insurance about inpatient rehab. Overall, he is doing better, but not quite yet able to go home by himself. Thank you once again for allowing me to participate in the care of this very interesting patient. Sy Doran DO RPL/MODL /[id number]
[2019-06-03] MEDS: METOCLOPRAMIDE HCL 10 MG/2ML VIAL IV SCH ×4 (05:31→23:01)
[2019-06-03] MEDS: ACETYLCYSTEINE 20% INHAL SOLN 30 ML VIAL INH SCH ×2 (07:53→19:35)
[2019-06-03] MEDS: CYANOCOBALAMIN INJ 1,000 MCG/ML VIAL IM SCH (08:27)
[2019-06-03] MEDS: CLARITHROMYCIN 500 MG TAB PO SCH ×2 (08:27→20:10)
[2019-06-03] MEDS: SEVELAMER CARBONATE 800 MG TAB PO SCH ×3 (08:27→17:12)
[2019-06-03] MEDS: SUCRALFATE 1 GM TAB PO SCH ×4 (08:27→20:10)
[2019-06-03] MEDS: FOLIC ACID 1 MG TAB PO SCH (08:27)
[2019-06-03] MEDS: CRESTOR 10MG PO SCH ×2 (08:27→20:10)
[2019-06-03] MEDS: AMMONIUM LACTATE 12% LOTION 225GM BTL TOP SCH ×2 (08:27→17:12)
[2019-06-03] MEDS: PANTOPRAZOLE SOD 40 MG TABEC PO SCH ×2 (08:27→20:10)
[2019-06-03] MEDS: METOPROLOL TARTRATE 25 MG TAB PO SCH ×2 (08:28→20:10)
--- NOTE | 2019-06-03 11:22 | Progress Note ---
DATE: 06/03/2019 CHIEF COMPLAINT: Generalized weakness, shortness of breath due to recurrent pleural effusions. SUBJECTIVE: The patient is resting in bed, BP improved, much more alert and awake. He denies any nausea, vomiting, chest pain, shortness of breath. OBJECTIVE: VITAL SIGNS: Temperature 98.2, pulse is 90, blood pressure 123/55, pulse ox is 96% on room air. GENERAL: Chronically ill appearing, weak. HEENT: Normocephalic, atraumatic. NECK: Supple. LUNGS: Decreased breath sounds. Right side Heimlich valve placed. CARDIOVASCULAR: Regular rate and rhythm. GI: Soft and nontender. NEUROLOGIC: Alert, awake, and oriented x3. MUSCULOSKELETAL: Moves all extremities though weak. PSYCH: Calm. LABORATORY DATA: Sodium 129. IMPRESSION: 1. Dyspnea with recurrent pleural effusions. Status post thoracentesis and decortication. CV surgeon. Chest tube changed to Heimlich valve. Chest x-ray stable, CV surgeon and Pulmonary following. 2. Anemia of chronic disease and iron deficiency anemia. Status post transfusion of PRBCs. Hemoglobin is stable. We will continue to monitor closely. 3. Hypertension. We will continue with current dose of metoprolol and nifedipine at bedtime. Parameters in place for low BP. 4. End-stage renal disease. On dialysis Sunday, Sunday, Sunday per Nephrology. 5. Hyponatremia. Sodium is 129. We will defer to Nephrology. 6. High cholesterol. On statin. 7. Poor appetite and dysphagia. GI on the case. Appetite is improved. 8. Hypoglycemia. Likely due to poor p.o. intake. Now improved. 9. Right foot diabetic ulcer. Status post debridement by Podiatry. Wound care daily. 10. Severe protein malnutrition. Increase p.o. intake. Encourage frequent meals. 11. Increased debility. Continue with PT, OT. Acute rehab eval pending. 12. Deep vein thrombosis prophylaxis. No chemical anticoagulation due to anemia. PLAN: Continue current treatment, to acute rehab once approved. Dictated by HIGINIO Dunn Belenching Naseem Sow MD MY/MODL /[id number]
--- NOTE | 2019-06-03 11:49 | NUR ---
REC'D CALL FROM ALVARO AT [facility] STATING THEY HAVE DENIED PT FOR ACUTE REHAB HE IS TOO HIGH FUNCTIONING ORDERS FOR SNF GARRICK ROTH SPOKE WITH DR JUAN HE IS OK WITH PT TRANSFERING TO SNF/REHAB WITH F/U IN HIS OFFICE IN 2 WEEKS ADRIEN AWARE OF PLAN
--- NOTE | 2019-06-03 17:24 | NUR ---
CALLED AND SPOKE WITH EX KAI CAPPS, LET HER KNOW PT WAS DENIED FOR LTAC, AND THERE IS A SNF ORDER, SHE GAVE VERBAL CONSENT VIA PHONE FOR [facility], COMPLETED PASRR AND FAXED CLINICALS TO [facility] [phone]. PT WILL BE READY FOR TRANSFER TOMORROW, COMPLETED RTF AND EDUCATED ON IMM LETTER AND RIGHTS A MEDICARE PT, WILL FILE COPIES IN CHART
[2019-06-03] MEDS: ZOLPIDEM TARTRATE 5 MG TAB PO PRN (20:10)
[2019-06-03] MEDS: NIFEDIPINE CR 30 MG TAB PO SCH (20:10)
[2019-06-04] VITALS (8 sets, daily range): BP systolic 105–143; BP diastolic 55–65
[2019-06-04] MEDS: ALBUTEROL SULF 0.083% NEB SOLN 3 ML NEB NEB SCH ×3 (01:05→13:00)
[2019-06-04] MEDS: METOCLOPRAMIDE HCL 10 MG/2ML VIAL IV SCH ×3 (04:46→18:10)
[2019-06-04 05:32] LABS: BASOPHILS # (AUTO) 0.1 (0.0-0.1); BASOPHILS % 1.1 % (0.0-1.0); EOSINOPHILS # (AUTO) 0.3 (0.0-0.4); EOSINOPHILS % 3.6 % (0.0-6.0); HEMATOCRIT 27.8 % (38.2-49.6); HEMOGLOBIN 9.7 g/dL (14.0-18.0); LYMPHOCYTES # (AUTO) 0.9 (1.0-3.2); LYMPHOCYTES % 12.6 % (18.0-39.1); MEAN CORPUSCULAR HEMOGLOBIN 29.5 pg (28-32); MEAN CORPUSCULAR HGB CONC 34.9 g/dL (31-35); MEAN CORPUSCULAR VOLUME 84.5 fL (81-99); MONOCYTES # (AUTO) 1.1 (0.2-0.8); MONOCYTES % 14.2 % (4.4-11.3); NEUTROPHILS # (AUTO) 5.1 (2.1-6.9); NEUTROPHILS % 68.2 % (38.7-80.0); PLATELET COUNT 136 x10e3/uL (140-360); RED BLOOD COUNT 3.29 x10e6/uL (4.3-5.7); RED CELL DISTRIBUTION WIDTH 13.7 % (11.7-14.4)
[2019-06-04 05:54] LABS: ANION GAP 16.9 mmol/L (8-16); CALCIUM 7.8 mg/dL (8.4-10.2); CREATININE, SERUM 5.83 mg/dL (0.72-1.25); POTASSIUM 3.9 mmol/L (3.5-5.1)
[2019-06-04] MEDS: ACETYLCYSTEINE 20% INHAL SOLN 30 ML VIAL INH SCH (07:05)
[2019-06-04] MEDS: SUCRALFATE 1 GM TAB PO SCH ×4 (09:19→20:24)
[2019-06-04] MEDS: CYANOCOBALAMIN INJ 1,000 MCG/ML VIAL IM SCH (09:20)
[2019-06-04] MEDS: AMMONIUM LACTATE 12% LOTION 225GM BTL TOP SCH ×2 (09:20→18:10)
[2019-06-04] MEDS: FOLIC ACID 1 MG TAB PO SCH (09:20)
[2019-06-04] MEDS: SEVELAMER CARBONATE 800 MG TAB PO SCH ×3 (09:20→18:10)
[2019-06-04] MEDS: PANTOPRAZOLE SOD 40 MG TABEC PO SCH ×2 (09:20→20:24)
[2019-06-04] MEDS: CRESTOR 10MG PO SCH ×2 (09:20→20:24)
[2019-06-04] MEDS: CLARITHROMYCIN 500 MG TAB PO SCH ×2 (09:20→20:24)
[2019-06-04] MEDS: METOPROLOL TARTRATE 25 MG TAB PO SCH ×2 (09:20→20:24)
--- NOTE | 2019-06-04 13:24 | NUR ---
SHELTER FACILITY DISCHARGE INFORMATION PATIENT HAS BEEN ACCEPTED TO: NAME: [facility] ADDRESS:[id number] MD:GENNA ROOM:113 NURSE CALL REPORT TO: [phone] IMM SIGNED AND OBTAINED (if applicable): YES THE FOLLOWING DOCUMENTS MUST ACCOMPANY PATIENT FOR TRANSFER: COPIED CHART:PACKET
[2019-06-04] MEDS ORDERED: CARAFATE1 GM PO (14:25)
[2019-06-04] MEDS ORDERED: ALBUMIN IV (14:25)
[2019-06-04] MEDS ORDERED: NIFEDIPINE ER30 M1 PO (14:25)
--- NOTE | 2019-06-04 14:28 | Diagnostic Imaging Report ---
Chest, 1 view, 06/04/2019. History: Pleural effusion. Comparison: 06/01/2019. Findings: The cardiomediastinal silhouette and pulmonary vasculature are prominent. Right chest tube is unchanged in position. There is no visible pneumothorax. Bibasilar opacities are unchanged. There are no acute osseous or soft tissue abnormalities. Impression: Bibasilar opacities without significant change. Signed by: Alex Garcia on 06/04/2019 2:25 PM
--- NOTE | 2019-06-04 15:54 | NUR ---
Report called to [phone] to [facility] for room 113 [facility] [address] [place] Community Recreation Coordinator made aware.
--- NOTE | 2019-06-04 16:28 | NUR ---
WILL HAVE TO HOLD DISCHARGE UNTIL TOMORROW, FACILITY WAS TOLD HAS TO HAVE INHOUSE DIALYSIS BECAUSE OF TUBE BY NURSE CALLING REPORT. FACILITY WILL HAVE TO GET AUTH FOR THE IN HOUSE AND WE NEED TO HOLD DISCHARGE UNTIL MORNING WHEN CAN GET THE AUTH AND SEND OR VERIFY THAT PT CAN GO TO SN. PT WILL DISCHARGE IN AM.
--- NOTE | 2019-06-04 16:35 | NUR ---
CALLED ALVARO AT [facility] [place] [place] SHE STATES HE IS SET UP FOR [facility] AT 10AM M, W AND SUNDAY, DOES NOT NEED IN HOUSE DIALYSIS, FABIOLA NURSE NOTIFIED TO CONTINUE WITH THE DISCHARGE AFTER GETTING ALL PARTIES ON PHONE AT ONCE TO MAKE CERTAIN THERE IS NO CONFUSION WITH THIS DISCHARGE AND THEY ARE TO PROCEED AT THIS TIME.
[2019-06-04] MEDS ORDERED: MUPIROCIN 2% OINT 22 GM TUBE TOP SCH (17:00)
--- NOTE | 2019-06-04 19:00 | Progress Note ---
DATE: 06/03/2019 SUBJECTIVE: The patient is seen at bedside, no distress. OBJECTIVE: VITAL SIGNS: Stable. EXTREMITIES: The patient's right lower extremity continues to improve. Eczema to both lower extremities. Ulcerations healing nicely, less than 1 cm in diameter sub 1st and sub 5th metatarsophalangeal joints, right foot. Severe eczema excoriations noted to both lower extremities with pedal pulses diminished. ASSESSMENT: Diabetic neuropathy with grade 1 lesions x2 with eczema dermatitis. PLAN: Continue Bactroban ointment. Continue Lac-Hydrin 12% lotion. Continue offloading and physical therapy with the aid of the surgical shoe. We will continue to follow. YULI Sutton/BRIT /[id number]
--- NOTE | 2019-06-04 19:05 | Progress Note ---
DATE: 06/04/2019 SUBJECTIVE: The patient is seen at bedside, getting dialyzed, doing well. No distress. OBJECTIVE: VITAL SIGNS: Afebrile, pulse rate 75, respirations 19, blood pressure 105/55, and O2 saturation 100%. EXTREMITIES: Ulcerations healing down to dermis, measuring 1 cm in diameter. Positive eczema to both lower extremities. Skin temperature warm to touch on this date with pedal pulses diminished. LABORATORY DATA: Labs show a white blood cell count of 7.4, hemoglobin 9.7, hematocrit 27.8 with a platelet count of 136. ASSESSMENT: Diabetic neuropathy, multiple grade 1 ulcers with eczema and dermatitis. PLAN: Continue AmLactin 12% lotion. Continue Bactroban ointment. Continue offloading when in bed. Continue physical therapy with the aid of the surgical shoe. The patient will be transferred to [facility] on this date. YULI Sutton/BRIT /[id number]
--- NOTE | 2019-06-04 19:45 | NUR ---
patient is awake alert oriented, no distress noted, denied any discomfort. he is waiting for the ambulance, ready to be transferred to another facility.vitals checked,
[2019-06-04] MEDS: NIFEDIPINE CR 30 MG TAB PO SCH (20:24)
--- NOTE | 2019-06-04 20:55 | NUR ---
patient is discharged now to [facility], reports was given by day shift nurse letitia meraz to the facility.
--- NOTE | 2019-06-05 06:27 | Discharge Summary ---
PCP: Dr. Walter. API PRODUCT MANAGER: Dr. Rivas. FINAL DIAGNOSES: 1. Dyspnea with recurrent pleural effusion. 2. Anemia of chronic diseases and iron deficiency anemia. 3. Hypertension. 4. End-stage renal disease. 5. Hyponatremia. 6. High cholesterol. 7. Poor appetite with dysphagia. 8. Right foot diabetic ulcer. 9. Severe protein malnutrition. 10. Increased debility. 11. Positive Helicobacter pylori. CONSULTANTS: 1. Dr. Rivas with Nephrology. 2. Dr. Freeman with CV surgeon. 3. Dr. Fraire with Pulmonary. 4. Dr. Lockhart with GI. 5. Dr. Amin with Podiatry. PROCEDURES: 1. Left lung thoracentesis. 2. Decortication of the right lung with chest tube in place, then replaced with Heimlich valve. 3. Debridement of the right foot. HISTORY: Per HPI. HOSPITAL COURSE: This is a 58-year-old male with past medical history of hypertension, HLD, diabetes, and anemia and ESRD on dialysis Sunday, Sunday, Sunday, presented to the ER with complaints of increased shortness of breath. He was noted to have pleural effusion loculated on bilateral. IR was consulted and performed thoracentesis to the left lung. He continued to have dyspnea. CV surgeon was consulted and decortication was done to the right side with chest tube in place. Chest tube continue to drain significant amount with recurrent pleural effusion. Chest x-ray noted and CV surgeon recommended a change out to Heimlich valve for prolonged use. He has been noted to have anemia of chronic disease and requiring about 7 units of PRBCs during his stay. He also has diabetic foot ulcer, song plugger was consulted and performed a bedside debridement. He complained of nausea, vomiting, dysphagia with severe protein malnutrition. GI and Nutrition is consulted. He underwent EGD, which showed normal esophagus, showed gastritis and he was started on Protonix and for H pylori as well, biopsies taken for H pylori. It was positive for H pylori, so was started on Biaxin and amoxicillin. He continue to eat well. Today, he remains stable, will discharge to [facility] for further rehabilitation before returning home due to his increased debility. PHYSICAL EXAMINATION: VITAL SIGNS: Temperature 99.0, pulse is 75, respirations 19, blood pressure 105/55, pulse ox is 100% on room air. GENERAL: Fatigue, chronically ill appearing. HEENT: Normocephalic, atraumatic. NECK: Supple. LUNGS: Decreased breath sounds right side Heimlich valve in place. CARDIOVASCULAR: Regular rate and rhythm. GI: Soft and nontender. NEUROLOGIC: Alert, awake, and oriented x3. MUSCULOSKELETAL: Moves all extremities. PSYCH: Calm. CONDITION AT DISCHARGE: Stable and improved. DISCHARGE MEDICATIONS: Please see medication reconciliation list. Continued all current medications. FOLLOWUP: Follow up with PCP and Nephrology per appointment. TIME SPENT: Total discharge time is 35 minutes. Dictated by HIGINIO Dunn Heather Sow MD MY/MODL /[id number] cc: Dr. Walter
== END 2019-06-04 20:58 | DRG 163 ==
LOC: ER 14:44 → ERHOLD 18:27 → MED/SURG2 22:35 → ICU 05-15 19:39 → IMCU 05-19 07:03
PROVIDERS: ADMIT Internal Medicine; ATTEND Internal Medicine
PROC: 5A1D70Z Performance of Urinary Filtration, Intermittent, Less than 6 Hours Per Day (ICD-10-PCS; 2019-05-08)
PROC: 30233N1 Transfusion of Nonautologous Red Blood Cells into Peripheral Vein, Percutaneous Approach (ICD-10-PCS; 2019-05-08)
PROC: 0W9930Z Drainage of Right Pleural Cavity with Drainage Device, Percutaneous Approach (ICD-10-PCS; 2019-05-09)
PROC: 0DB68ZX Excision of Stomach, Via Natural or Artificial Opening Endoscopic, Diagnostic (ICD-10-PCS; 2019-05-09)
PROC: 0DB78ZX Excision of Stomach, Pylorus, Via Natural or Artificial Opening Endoscopic, Diagnostic (ICD-10-PCS; 2019-05-09)
PROC: 5A1D70Z Performance of Urinary Filtration, Intermittent, Less than 6 Hours Per Day (ICD-10-PCS; 2019-05-12)
PROC: 5A1D70Z Performance of Urinary Filtration, Intermittent, Less than 6 Hours Per Day (ICD-10-PCS; 2019-05-14)
PROC: 0BB Respiratory System, Excision (ICD-10-PCS; 2019-05-15)
PROC: 0B9 Respiratory System, Drainage (ICD-10-PCS; 2019-05-15)
PROC: 0BNK0ZZ Release Right Lung, Open Approach (ICD-10-PCS; 2019-05-15)
PROC: 0JBQ0ZZ Excision of Right Foot Subcutaneous Tissue and Fascia, Open Approach (ICD-10-PCS; 2019-05-18)
PROC: 02HV33Z Insertion of Infusion Device into Superior Vena Cava, Percutaneous Approach (ICD-10-PCS; 2019-05-20)
PROC: B548ZZA Ultrasonography of Superior Vena Cava, Guidance (ICD-10-PCS; 2019-05-20)
PROC: 5A1D70Z Performance of Urinary Filtration, Intermittent, Less than 6 Hours Per Day (ICD-10-PCS; 2019-05-20)
PROC: 5A1D70Z Performance of Urinary Filtration, Intermittent, Less than 6 Hours Per Day (ICD-10-PCS; 2019-05-21)
PROC: 5A1D70Z Performance of Urinary Filtration, Intermittent, Less than 6 Hours Per Day (ICD-10-PCS; 2019-05-23)
PROC: 5A1D70Z Performance of Urinary Filtration, Intermittent, Less than 6 Hours Per Day (ICD-10-PCS; 2019-05-26)
PROC: 5A1D70Z Performance of Urinary Filtration, Intermittent, Less than 6 Hours Per Day (ICD-10-PCS; 2019-05-28)
PROC: 5A1D70Z Performance of Urinary Filtration, Intermittent, Less than 6 Hours Per Day (ICD-10-PCS; 2019-05-30)
PROC: 5A1D70Z Performance of Urinary Filtration, Intermittent, Less than 6 Hours Per Day (ICD-10-PCS; 2019-06-02)
PROC: 5A1D70Z Performance of Urinary Filtration, Intermittent, Less than 6 Hours Per Day (ICD-10-PCS; principal; 2019-06-04)
DX: J15.9 Unspecified bacterial pneumonia (principal); N18.6 End stage renal disease; J96.90 Respiratory failure, unspecified, unspecified whether with hypoxia or hypercapnia; E43 Unspecified severe protein-calorie malnutrition; J91.8 Pleural effusion in other conditions classified elsewhere; E87.1 Hypo-osmolality and hyponatremia; I13.2 Hypertensive heart and chronic kidney disease with heart failure and with stage 5 chronic kidney disease, or end stage renal disease; Z68.1 Body mass index [BMI] 19.9 or less, adult; L97.412 Non-pressure chronic ulcer of right heel and midfoot with fat layer exposed; L03.115 Cellulitis of right lower limb; T82.510A Breakdown (mechanical) of surgically created arteriovenous fistula, initial encounter; J94.2 Hemothorax; Z99.2 Dependence on renal dialysis; E87.6 Hypokalemia; E11.22 Type 2 diabetes mellitus with diabetic chronic kidney disease; I50.9 Heart failure, unspecified; E78.5 Hyperlipidemia, unspecified; Z89.421 Acquired absence of other right toe(s); Z82.49 Family history of ischemic heart disease and other diseases of the circulatory system; D63.1 Anemia in chronic kidney disease; Z83.3 Family history of diabetes mellitus; K29.70 Gastritis, unspecified, without bleeding; K31.89 Other diseases of stomach and duodenum; D50.9 Iron deficiency anemia, unspecified; E11.42 Type 2 diabetes mellitus with diabetic polyneuropathy; E11.621 Type 2 diabetes mellitus with foot ulcer; R53.81 Other malaise; K81.1 Chronic cholecystitis; R13.10 Dysphagia, unspecified; L84 Corns and callosities; M77.41 Metatarsalgia, right foot; E11.649 Type 2 diabetes mellitus with hypoglycemia without coma; L30.8 Other specified dermatitis; B96.81 Helicobacter pylori [H. pylori] as the cause of diseases classified elsewhere
CPT/HCPCS: 32555; 36415; 36556; 36593; 43239; 71045; 71046; 71250; 74176; 74470; 76937; 77001; 77002; 78226; 80048; 80053; 80061; 82232; 82270; 82550; 82553; 82607; 82728; 82746; 82945; 82947; 82948; 83540; 83615; 83735; 84100; 84157; 84466; 84484; 85025; 85045; 85610; 85730; 86704; 86706; 86850; 86900; 86920; 87040; 87070; 87071; 87075; 87102; 87116; 87205; 87206; 87340; 87400; 88112; 88305; 88312; 88342; 89051; 90962; 93005; 93306; 94640; 94667; 94668; 96372; 97139; 99284; A9537; C1769; J0360; J0456; J0696; J1100; J1644; J1756; J2001; J2250; J2270; J2405; J2710; J2765; J2997; J3010; J3420; J3480; J7030; J7040; J7050; J7799; P9016; Q9967

== ENCOUNTER 2019-07-06 13:42 | Inpatient (IN) | payer MEDICARE, OTHER ==
[~2019-07-06] VITALS: Ht 182.9 cm; Wt 56.2 kg
[~2019-07-06 13:42] MED LIST changes: +ALBUMIN IV; +CARAFATE1 GM PO
[2019-07-06] MEDS ORDERED: HYDRALAZINE HCL 20 MG/ML VIAL IV ONE (14:32)
[2019-07-06 14:43] LABS: BASOPHILS # (AUTO) 0.1 (0.0-0.1); BASOPHILS % 1.1 % (0.0-1.0); EOSINOPHILS # (AUTO) 0.3 (0.0-0.4); HEMATOCRIT 22.4 % (38.2-49.6); HEMOGLOBIN 7.2 g/dL (14.0-18.0); LYMPHOCYTES # (AUTO) 0.9 (1.0-3.2); LYMPHOCYTES % 17.8 % (18.0-39.1); MEAN CORPUSCULAR HEMOGLOBIN 28.1 pg (28-32); MEAN CORPUSCULAR HGB CONC 32.1 g/dL (31-35); MEAN CORPUSCULAR VOLUME 87.5 fL (81-99); MONOCYTES # (AUTO) 0.5 (0.2-0.8); MONOCYTES % 8.7 % (4.4-11.3); NEUTROPHILS # (AUTO) 3.5 (2.1-6.9); PLATELET COUNT 265 x10e3/uL (140-360); RED BLOOD COUNT 2.56 x10e6/uL (4.3-5.7); RED CELL DISTRIBUTION WIDTH 17.3 % (11.7-14.4)
[2019-07-06 15:12] LABS: INR 1.05; PROTHROMBIN TIME 14.4 seconds (11.9-14.5)
[2019-07-06 15:13] LABS: ALBUMIN 1.9 g/dL (3.5-5.0); ALBUMIN/GLOBULIN RATIO 0.5 (0.8-2.0); ANION GAP 6.8 mmol/L (8-16); CALCIUM 8.5 mg/dL (8.4-10.2); CREATININE, SERUM 3.11 mg/dL (0.72-1.25)
[2019-07-06 15:17] LABS: POTASSIUM 2.8 mmol/L (3.5-5.1)
[2019-07-06] MEDS ORDERED: POTASSIUM CHLORIDE 20 MEQ TAB CR PO ONE (15:17)
[2019-07-06 15:21] LABS: CREATINE KINASE MB 1.4 ng/mL (0-5.0)
[2019-07-06 15:23] LABS: PARTIAL THROMBOPLASTIN TIME 49.7 seconds (23.8-35.5)
[2019-07-06] MEDS ORDERED: NICARDIPINE HCL SOLN 20 MG in SODIUM CHLORIDE 0.9% 250ML 200 ML IV ONE (15:49)
[2019-07-06] MEDS ORDERED: NICARDIPINE 20MG/200ML PREMIX 200 ML IV PRN (16:00)
--- NOTE | 2019-07-06 16:42 | Diagnostic Imaging Report ---
EXAMINATION: CHEST SINGLE (PORTABLE) INDICATION: Sick, weak. COMPARISON: Chest radiograph 06/04/2019. FINDINGS: TUBES and LINES: Interval removal of right-sided chest tube. LUNGS/PLEURA: There are moderate bilateral pleural effusions with consolidative opacities in the mid and lower lung zones. Perihilar and interstitial opacities. No large pneumothorax. Ill-defined lucencies at the right lung base, unchanged, may represent loculated hydropneumothorax. HEART AND MEDIASTINUM: The cardiomediastinal silhouette is unremarkable. BONES AND SOFT TISSUES: No acute osseous lesion. Soft tissues are unremarkable. UPPER ABDOMEN: No free air under the diaphragm. IMPRESSION: Findings of pulmonary edema, moderate bilateral pleural effusions and lower lung zone opacities, which may represent atelectasis or pneumonia in the appropriate clinical setting. Interval removal of right-sided chest tube. No large pneumothorax. Ill-defined lucencies at the right lung base, unchanged, may represent loculated hydropneumothorax. Signed by: Dr. Amber Mitchell MD on 07/06/2019 4:39 PM
[2019-07-06] MEDS ORDERED: NICARDIPINE 20MG/200ML PREMIX 200 ML IV ONE (16:45)
--- NOTE | 2019-07-06 17:18 | NUR ---
PER ER MD, CARDENE STOPPED AT THIS TIME DUE TO POSITIVE BP RESPONSE. BP CURRENTLY 151/68 AFTER 17 MINUTES OF BEING ON CARDENE GTT. WILL CONTINUE TO MONITOR CLOSELY.
[2019-07-06] MEDS ORDERED: NICARDIPINE HCL 20 MG PO ONE (18:26)
--- NOTE | 2019-07-06 18:40 | NUR ---
RECEIVED NOTIFICATION FROM PHARMACY THAT PHARMACY DOES NOT CARRYT CARDENE PO. NOTIFIED ER MD. PER ER MD, LOPRESSOR IVP WILL BE ORDERED TO MANAGE BP. PENDING MD ORDERS. WILL CONTINUE TO MONITOR CLOSELY.
[2019-07-06] MEDS: METOPROLOL TARTRATE INJ 1 MG/ML VIAL IV PRN (20:14)
[2019-07-06] MEDS ORDERED: POTASSIUM CHLORIDE 20 MEQ TAB CR PO STA (21:53)
--- NOTE | 2019-07-06 21:56 | NUR ---
dr watson spoken to on phone regarding hypertension, new orders obtained
[2019-07-06] MEDS ORDERED: CLONIDINE HCL 0.2 MG TAB PO PRN (22:00)
[2019-07-06] MEDS ORDERED: NIFEDIPINE CR 30 MG TAB PO SCH (22:00)
--- NOTE | 2019-07-07 00:47 | NUR ---
DR CAZARES AND THIS NURSE HAD A CONVERSATION REGARDING CONTINUED ELEVATED PRESSURE DESPITE INTERVENTIONS FROM EARLIER THIS SHIFT, THE DECISION WAS MADE TO START CARDENE DRIP AGAIN. CLOSE OBSERVATION WILL BE MADE
[2019-07-07] MEDS: NICARDIPINE 20MG/200ML PREMIX 200 ML IV PRN ×2 (00:56→07:27)
[2019-07-07 04:49] LABS: BASOPHILS # (AUTO) 0.1 (0.0-0.1); BASOPHILS % 0.9 % (0.0-1.0); EOSINOPHILS # (AUTO) 0.3 (0.0-0.4); EOSINOPHILS % 5.6 % (0.0-6.0); HEMATOCRIT 28.6 % (38.2-49.6); HEMOGLOBIN 9.2 g/dL (14.0-18.0); LYMPHOCYTES % 17.7 % (18.0-39.1); MEAN CORPUSCULAR HEMOGLOBIN 27.8 pg (28-32); MEAN CORPUSCULAR HGB CONC 32.2 g/dL (31-35); MEAN CORPUSCULAR VOLUME 86.4 fL (81-99); MONOCYTES # (AUTO) 0.5 (0.2-0.8); MONOCYTES % 8.1 % (4.4-11.3); NEUTROPHILS # (AUTO) 3.7 (2.1-6.9); NEUTROPHILS % 67.5 % (38.7-80.0); PLATELET COUNT 314 x10e3/uL (140-360); RED BLOOD COUNT 3.31 x10e6/uL (4.3-5.7); RED CELL DISTRIBUTION WIDTH 17.9 % (11.7-14.4)
[2019-07-07 05:09] LABS: ANION GAP 9.4 mmol/L (8-16); CALCIUM 8.6 mg/dL (8.4-10.2); CREATININE, SERUM 3.93 mg/dL (0.72-1.25); MAGNESIUM 1.9 MG/DL (1.3-2.1); POTASSIUM 3.4 mmol/L (3.5-5.1)
--- NOTE | 2019-07-07 07:05 | NUR ---
dr weston lacey- answering service for consult. nereida-phone rep took message
--- NOTE | 2019-07-07 07:09 | NUR ---
report given to jameson meraz
--- NOTE | 2019-07-07 07:15 | NUR ---
Nursing report received from Rubén VASQUEZ.
[2019-07-07 07:19] LABS: CREATINE KINASE MB 1.8 ng/mL (0-5.0)
[2019-07-07] MEDS ORDERED: METOPROLOL SUCCINATE 25 MG TAB XL PO SCH (09:00)
--- NOTE | 2019-07-07 09:34 | NUR ---
Patient awake, breakfast tray set up and patient now sitting supine and eating breakfast.
[2019-07-07] MEDS: NIFEDIPINE CR 30 MG TAB PO SCH ×2 (09:59→12:25)
--- NOTE | 2019-07-07 10:05 | NUR ---
Spoke with jeremiah Lozano to call [facility] for dialysis initiation for today. Dialysis days M,W,F
--- NOTE | 2019-07-07 11:01 | NUR ---
Patient transferred to inpatient bed, linens changed, diaper changed. Patient had small BM. No skin breakdown noted.
--- NOTE | 2019-07-07 11:49 | NUR ---
Cardene gtt stopped per Dr. Sow, will give po Nicardipene and monitor. analytics intern present.
[2019-07-07] MEDS ORDERED: SODIUM CHLORIDE 0.9% 1000ML 1,000 ML ONE (12:25)
--- NOTE | 2019-07-07 16:20 | NUR ---
Vital signs remain within normal parameters without cardene gtt at this time. Dialysis ongoing.
--- NOTE | 2019-07-07 18:47 | History and Physical ---
CHIEF COMPLAINT: Elevated blood pressure. HISTORY OF PRESENT ILLNESS: This is a patient who was discharged by me about a month ago to [facility]. At that time, the patient had recurrent pleural effusion, subsequently underwent VATS. Also during that hospitalization, EGD was done which showed gastritis with positive H pylori which was treated. The patient returned still complaining of abdominal pain and early satiety. He has lost a lot of weight. At the [facility], the patient takes nifedipine 30 mg at bedtime. The patient was sent over yesterday with persistent systolic blood pressure greater than 200s. The patient denies chest pain. No shortness of breath. No nausea or vomiting. He just feels weak. In emergency room, IV metoprolol, IV hydralazine, p.o. clonidine, and p.o. nifedipine were tried. Unfortunately, his blood pressure continued to be in the 200 range. Therefore, subsequently the patient was put on Cardene drip and finally that brought his blood pressure down. PAST MEDICAL AND SURGICAL HISTORY: 1. End-stage renal disease. 2. Hypertension. 3. Hypercholesterolemia. 4. Anemia of chronic disease. 5. Right 5th toe amputation. 6. Recent VATS for loculated pleural effusion. MEDICATIONS: Please see medication reconciliation form. ALLERGIES: NONE. SOCIAL HISTORY: Does not smoke. FAMILY HISTORY: Diabetes. REVIEW OF SYSTEMS: A 10-point review of system obtained and nothing else is significant other than what is stated in HPI. PHYSICAL EXAMINATION: VITAL SIGNS: On exam, initial systolic blood pressure in the 200s, currently 125/58, pulse 71, respiratory rate 24, temperature 97.9. GENERAL: No acute distress. SKIN: No rash. HEENT: Anicteric. Oropharynx is clear. NECK: Supple. LUNGS: Decreased breath sounds at the bases. HEART: Regular rate and rhythm. Normal S1, S2. GI: Abdomen is soft. Epigastric mild tenderness to palpation. No rebound. : Deferred. EXTREMITIES: No edema. NEUROLOGIC: Alert and oriented x3. Cranial nerves II through XII grossly intact. PSYCHIATRIC: No hallucination. MUSCULOSKELETAL: Painless range of motion. LABORATORY DATA: White count 5, hemoglobin on admission was 7.2, repeat was 9.2, and platelet count 265. Repeat 314. INR 1.05. PTT 49.7. BUN 44 and creatinine 3.93. Troponins are negative x2. Chest x-ray unchanged, moderate bilateral pleural effusion. ASSESSMENT AND PLAN: 1. Malignant hypertension. We will continue Cardene drip. The patient will go to the ICU. I will go ahead and start nifedipine 60 mg twice a day to try to wean him off Cardene drip. He will also have clonidine as needed. 2. Abdominal pain, early satiety, and weight loss. We will re-consult GI. We will start him on Protonix twice a day. 3. End-stage renal disease. We will consult Nephrology for dialysis. 4. Chronic bilateral pleural effusion. We will consult Pulmonary. We will also repeat a chest x-ray after dialysis. 5. Gastrointestinal and deep venous thrombosis prophylaxis. Protonix and no chemical deep venous thrombosis prophylaxis due to anemia. MD HOSEA Trevizo/BRIT /[id number]
[2019-07-07 19:45] LABS: CREATINE KINASE MB 2.3 ng/mL (0-5.0)
--- NOTE | 2019-07-07 20:02 | Consultation ---
DATE OF CONSULTATION: 07/07/2019 Pulmonary Consultation REASON FOR CONSULT: Shortness of breath. HISTORY OF PRESENT ILLNESS: Mr. Kurtis Borjas is a 58-year-old male, who was well known to me from previous admission. The patient was at [facility], where he was getting rehabilitation. He was discharged from the hospital last time with right-sided chest tube and Heimlich valve, as the patient had persistent air leak, which resolved and he said that [facility]. Freeman and underwent the chest tube removal. Now, the patient is doing well, breathing well, but he is very weak. I am unsure whether why he was sent to the hospital from [facility] [place] with the current documentation available. REVIEW OF SYSTEMS: GENERAL: Denies any fever or chills. HEAD: Denies any head trauma. ENT: Denies any earache. CVS: Denies any chest pain. RESPIRATORY: Shortness of breath. The rest of the review of systems are negative except as in HPI. PAST MEDICAL HISTORY: End-stage renal disease, hypertension, hyperlipidemia, previous history of loculated pleural effusion, status post decortication of the right lung during last admission early in May of 2019. SOCIAL HISTORY: He does not smoke, does not drink. PHYSICAL EXAMINATION: VITAL SIGNS: Temperature afebrile, T-max of 100.3, blood pressure 125/58, and respiratory rate of 18. His blood pressure was on the higher side. He has been started on Cardene drip. HEENT: Head is atraumatic and normocephalic. NECK: Supple. CHEST: Clear to auscultation bilaterally. Decreased in the bases. HEART: S1 and S2 audible. ABDOMEN: Soft and nontender. EXTREMITIES: No pedal edema. NEUROLOGICAL: He is awake and alert. LABORATORY DATA: Reviewed. Chest x-ray showing bilateral effusions, small effusion. Chest tube has been removed. He has a dressing on the right side of the chest. The lung is trapped and possibly has not opened completely. ASSESSMENT/PLAN: A 58-year-old male was sent for hypertensive emergency. The patient is getting IV nicardipine infusion. Current problems: 1. End-stage renal disease. 2. Uncontrolled hypertension. 3. Chest x-ray finding of hydropneumothorax. I think the patient's lungs trapped and is not going to open up and hence it is showing air in the chest cavity. PLAN: At this point, I do not think so that we need any intervention for the hydropneumothorax. He probably will have this small amount of fluid and air because of his trapped lung. Continue nicardipine infusion and management of blood pressure and end-stage renal disease per Nephrology. Continue plan per Nephrology. Oxygen as needed to keep the O2 saturation more than or equal to 92%. MD SHAMAR Carrillo/BRIT /[id number]
[2019-07-07] MEDS ORDERED: ATORVASTATIN 20 MG TAB PO SCH (21:00)
--- NOTE | 2019-07-07 22:37 | Consultation ---
DATE OF CONSULTATION: 07/07/2019 HISTORY OF PRESENT ILLNESS: A 58-year-old gentleman, who presented to the hospital with malignant hypertension, started on Cardene drip, was refractory to other measures. Currently lying supine, in no apparent distress. Renal was consulted for management of underlying kidney failure. LABORATORY TESTS: Hemoglobin 9.2. Has a potassium 3.4, creatinine 3.9. ALLERGIES: HE DENIES ANY DRUG ALLERGIES. REVIEW OF SYSTEMS: Currently denies any headache, blurred vision, chest pain, shortness of breath, nausea, vomiting. CURRENT MEDICATIONS: The patient was started on nicardipine drip, Atorvastatin 40 mg at bedtime, clonidine p.r.n., metoprolol IV p.r.n., nifedipine 60 mg IV q.12, received one time dose of potassium this morning along with pantoprazole. SOCIAL HISTORY: The patient does not smoke or drink. He is . FAMILY HISTORY: Significant for hypertension. PAST MEDICAL HISTORY: Recent video-assisted thoracotomy with chest tube insertion, status post removal about a week ago, history of hypertension, end-stage renal disease, poorly controlled hypertension, which is kind of very labile. It remains controlled for several days and then suddenly it will rise. Nevertheless, he is almost aneuric, does not make any urine. PHYSICAL EXAMINATION: GENERAL: Awake, alert, and oriented x3, lying supine, in no apparent distress. VITAL SIGNS: Blood pressure 116/64, pulse rate 71, afebrile. Oxygen saturation 100%. HEAD AND NECK: Cornea clear. Oral mucosa moist. Neck veins flat. LUNGS: Decreased air entry in both bases with impaired percussion noted. Occasional rales. HEART: S1, S2 audible. ABDOMEN: No rubs or gallop. Abdomen is otherwise soft, nontender. No apparent visceromegaly. EXTREMITY: Lower extremity, no edema. IMPRESSION AND PLAN: Hypokalemia, end-stage renal disease, accelerated hypertension. No evidence of any overt congestive heart failure. Plan on hemodialysis, fluid restriction, salt restriction. Agree with pulmonary evaluation. Chest x-ray noted. Please see orders. MD MICAH Graff/BRIT /[id number]
--- NOTE | 2019-07-07 23:30 | NUR ---
PT RESTING IN ROOM WITH EYES CLOSED AND NO S/S DISTRESS NOTED; REMAINS ATTACHED TO BS / [employer]GRAM [employer]OCIATE
--- NOTE | 2019-07-08 03:00 | NUR ---
PTS V/S/S, RESP ARE EVEN AND UNLABORED, O2 SAT RA 98%, PT DENIES ANY NEEDS OR CONCERNS AT THIS TIME
[2019-07-08 07:19] LABS: BASOPHILS % 0.7 % (0.0-1.0); EOSINOPHILS # (AUTO) 0.3 (0.0-0.4); EOSINOPHILS % 5.7 % (0.0-6.0); HEMATOCRIT 24.3 % (38.2-49.6); HEMOGLOBIN 7.9 g/dL (14.0-18.0); LYMPHOCYTES # (AUTO) 0.9 (1.0-3.2); LYMPHOCYTES % 16.2 % (18.0-39.1); MEAN CORPUSCULAR HEMOGLOBIN 28.1 pg (28-32); MEAN CORPUSCULAR HGB CONC 32.5 g/dL (31-35); MEAN CORPUSCULAR VOLUME 86.5 fL (81-99); MONOCYTES # (AUTO) 0.5 (0.2-0.8); MONOCYTES % 9.4 % (4.4-11.3); NEUTROPHILS # (AUTO) 3.7 (2.1-6.9); NEUTROPHILS % 67.8 % (38.7-80.0); PLATELET COUNT 257 x10e3/uL (140-360); RED BLOOD COUNT 2.81 x10e6/uL (4.3-5.7); RED CELL DISTRIBUTION WIDTH 18.5 % (11.7-14.4)
[2019-07-08 07:42] LABS: ANION GAP 11.5 mmol/L (8-16); CALCIUM 8.1 mg/dL (8.4-10.2); CREATININE, SERUM 2.86 mg/dL (0.72-1.25); POTASSIUM 3.5 mmol/L (3.5-5.1)
--- NOTE | 2019-07-08 07:47 | Diagnostic Imaging Report ---
EXAMINATION: CHEST SINGLE (PORTABLE) INDICATION: Pleural effusion. COMPARISON: Chest radiograph 07/06/2019. FINDINGS: TUBES and LINES: None. LUNGS/PLEURA: There are moderate bilateral pleural effusions with consolidative opacities in the mid and lower lung zones. Perihilar and interstitial opacities. No large pneumothorax. Ill-defined lucencies at the right lung base, unchanged, may represent loculated hydropneumothorax. HEART AND MEDIASTINUM: The cardiomediastinal silhouette is unremarkable. BONES AND SOFT TISSUES: No acute osseous lesion. Soft tissues are unremarkable. UPPER ABDOMEN: No free air under the diaphragm. IMPRESSION: Findings of pulmonary edema, moderate bilateral pleural effusions and lower lung zone opacities, which may represent atelectasis or pneumonia in the appropriate clinical setting. Unchanged lucencies at the right lung base may represent loculated hydropneumothorax. Signed by: Dr. Amber Mitchell MD on 07/08/2019 7:45 AM
--- NOTE | 2019-07-08 08:15 | NUR ---
Pt lying in bed comfortably. RR even and unlabored. NAD noted at the present time.Pt remains on NIBP, pulse ox, and cardiac monitoring. Bed locked in lowest position. Call light remains in reach. Will continue to monitor.
[2019-07-08] MEDS: PANTOPRAZOLE SOD 40 MG TABEC PO SCH ×3 (08:55→17:03)
[2019-07-08] MEDS: NIFEDIPINE CR 30 MG TAB PO SCH ×2 (08:56→22:09)
--- NOTE | 2019-07-08 09:00 | NUR ---
Pt urinated in diaper, incontinence care provided. No sacral wounds noted.
--- NOTE | 2019-07-08 10:36 | NUR ---
Report and care hand off given to CHRISTINA Dash. Pt updated on POC.
--- NOTE | 2019-07-08 14:15 | NUR ---
Pt received from ER at this time. Pt is aozx4 and able to verbalize needs, but mostly Finnish speaking. Pt denies any pain at this time. Breaths are even and unlabored. Left forearm fistula is positive for bruit and thrill. Pt has IVF to right upper ext and patent.
[2019-07-08 14:30] VITALS: BP 160/74
--- NOTE | 2019-07-08 14:37 | NUR ---
FAXED CLINICALS TO [facility] FOR POSSIBLE RETURN TOMORROW.
[2019-07-08 14:44] VITALS: BP 160/74
[2019-07-08 16:05] VITALS: BP 147/70
[2019-07-08 20:00] VITALS: BP 165/79
[2019-07-08 20:44] VITALS: BP 165/79
[2019-07-09] VITALS (10 sets, daily range): BP systolic 130–222; BP diastolic 60–109
[2019-07-09] MEDS: CLONIDINE HCL 0.3 MG TAB PO PRN (00:15)
[2019-07-09] MEDS: PANTOPRAZOLE SOD 40 MG TABEC PO SCH (07:30)
[2019-07-09] MEDS: METOPROLOL TARTRATE INJ 1 MG/ML VIAL IV PRN (08:53)
--- NOTE | 2019-07-09 09:45 | NUR ---
INFORMED DR. CAZARES OF SIRS ALERT ON PATIENT THIS MORNING- NO NEW ORDERS GIVEN AT THIS TIME. PATIENT ON IV FLUID AND REMAINS IN STABLE CONDITION WITH NO S/S RESPIRATORY DISTRESS. NO PAIN VOICED. CALL LIGHT IS WITHIN REACH, PATIENT INSTRUCTED TO CALL FOR ASSISTANCE NEEDED. Addendum: 07/09/19 at 1945 by Jennifer Casey RN CORRECTION: PATIENT NOT ON IV FLUID
--- NOTE | 2019-07-09 09:46 | NUR ---
DR. CAZARES ALSO INFORMED PATIENT IS NPO AND HIS BP IS ELEVATED AT THIS TIME 182/94- ORDER OKAY TO ADMINISTER 0900 PROCARDIA MEDICATION. PRN IV MED FOR BP WAS ALREADY ADMINISTERED TO PATIENT
[2019-07-09] MEDS: NIFEDIPINE CR 30 MG TAB PO SCH ×2 (10:06→21:00)
[2019-07-09] MEDS ORDERED: SODIUM CHLORIDE 0.9% 500ML 500 ML ONE (10:31)
[2019-07-09] MEDS ORDERED: PANTOPRAZOLE 40 MG 10ML VIAL IV ONE (12:00)
[2019-07-09] MEDS ORDERED: PANTOPRAZOL 40MG/SOD CHL 0.9% 50 ML IV SCH (12:00)
--- NOTE | 2019-07-09 12:12 | Operative Report ---
DATE OF PROCEDURE: 07/09/2019 SURGEON: Dennis Lockhart MD PROCEDURES: EGD with esophageal brushings and gastric biopsies. INDICATIONS FOR PROCEDURE: Early satiety, weight loss. MEDICATIONS: The patient was done under MAC, please see anesthesiologist's note. PROCEDURE IN DETAIL: With the patient in the left lateral decubitus position, a flexible fiberoptic Olympus gastroscope was introduced into the esophagus under direct visualization without any difficulty. There was some diffuse yellowish grayish plaques suspicious for Treva esophagitis pretty much throughout the esophagus and brushings were obtained. The scope was then advanced with ease into the stomach. Mucosa overlying the antrum and the body revealed some diffuse erythema and moderate to marked edema, and biopsies were obtained and sent to stain for H. pylori. Pylorus was of normal contour and shape, was intubated with ease and the scope was advanced all the way to the second portion of the duodenum. The scope was then withdrawn slowly and mucosa overlying the proximal second portion and duodenal bulb appeared to be within normal limits. The scope was then withdrawn back into the stomach and retroflexed, mucosa overlying the fundus and the cardia otherwise grossly appeared to be within normal limits. The scope was then straightened out, it was subsequently withdrawn, and the patient tolerated the procedure well. IMPRESSION: 1. Rule out Treva esophagitis. 2. Gastritis, biopsied, biopsies sent to stain for Helicobacter pylori. PLAN: Follow up histology. Follow up cytology. Initiate Diflucan 200 mg IV daily. Maximize current anti-PUD therapy. Dennis Lockhart MD [facility] CITYV[place] /[id number] cc: Heather Sow MD
[2019-07-09] MEDS: SUCRALFATE 1 GM TAB PO SCH ×3 (12:20→21:00)
[2019-07-09] MEDS: FLUCONAZOLE 200 MG/100 ML 100 ML IV SCH (12:20)
[2019-07-09] MEDS ORDERED: SODIUM CHLORIDE 0.9% 250ML 250 ML ONE (12:22)
[2019-07-09] MEDS ORDERED: PROPOFOL IV EMULSION 10 MG/ML 20 ML VIAL ONE (12:39)
[2019-07-09] MEDS ORDERED: CARVEDILOL 3.125 MG TAB PO SCH (12:45)
[2019-07-09] MEDS ORDERED: SODIUM CHLORIDE 0.9% 1000ML 2,000 ML ONE (13:11)
--- NOTE | 2019-07-09 13:21 | NUR ---
Nutrition Intervention Note RD Recommendation(s) for Physician: -Continue current diet per MD. -Recommend appetite stimulant per MD if medically feasible. -Recommend ONS BID to provide the pt with additional calories and protein. -Recommend checking phos level. -Pt meets criteria for MODERATE protein calorie malnutrition. Plan of Care: RD following, monitoring for tolerance and adequacy. Ensure Compact BID. Nutrition reason for involvement: (MST-4) RD Assessment 07/08: 58 YOM admitted for hypertensive urgency with PMH listed below. The pt was seen resting in the dark. Pt reported that his appetite was somewhat poor right now but he has denied any recent weight loss. The pt also denied N/V/C/D/chewing or swallowing issues as well as any food allergies. Recommended ONS d/t pts appetite being poor. Pt is from [facility]. Pt was recently d/c here in Apr, he was evaluated as severe protein calorie malnutrition at that time. Pt was 139 lbs on 05/07, pt is currently 124 lbs suggesting a 12 % weight loss within 2 months which is significant. Pt was 110 lbs in 05/22 which does suggest weight gain. Weight fluctuations could be related to fluid accumulation. Will continue to monitor. Principal Problems/Diagnoses: Hypertensive urgency, malignant PMH: 1. End-stage renal disease. 2. Hypertension. 3. Hypercholesterolemia. 4. Anemia of chronic disease. 5. Right 5th toe amputation. 6. Recent VATS for loculated pleural effusion. GI: LBM: 06/03 Skin: several wounds recorded per EMR, no pressure ulcers recorded Labs: 07/08: POC GM: 89-117 Meds: pantoprazole sodium, catapres, carafate Ht: 72 in Wt: 124 lbs BMI: 16.8 kg/m^2 IBW:178 lbs Malnutrition Evaluation (07/08) The patient meets criteria for unspecified MODERATE protein-calorie malnutrition. Energy intake: <50% of estimated energy requirements for >1 month (pt reports poor appetite) Weight loss: >7.5% in 3 months (Chronic) pt had a 12% weight loss within 2 months. Fat loss: Moderate-eyes Muscle loss: Moderate-scientologist Supporting Evidence: Fluid accumulation: unable to evaluate Functional Status:unable to evaluate Nutrition Prescription (Diet Order): cardiac diet Estimated Nutritional Needs: Calories: 1690-1968kcal/day (30-35 kcal/kg/day) Weight used : CBW Protein : 67-84protein/day (1.2-1.5 gram/kg/day ) Weight used: Diet Adequacy: (Not meeting calorie needs, Not meeting protein needs) Diet Education Needs Assessment: Diet education indicated, but patient not appropriate for education at this time. Nutrition Care Level: mod Nutrition Diagnosis: chronic protein calorie malnutrition related to medical condition as evidenced by the pt having a 12% weight loss within 2 months and reports of poor intake. Goal: Patient will meet 75-100% of estimated needs by follow up Progress: (N/A) Interventions: -( fat, cholesterol (mineral sodium, phos, K)-modified diet, Commercial beverage, Prescription medications, Survival information, Collaboration with other providers Monitoring/Evaluation: -Total energy intake, Total protein intake, Prescription medication, Modified diet, Liquid supplement, Weight change, Signed: Lilliam Hess RD, RADHAMES Addendum: 07/09/19 at 1633 by Lilliam Hess DIET Per past nutrition notes- pt likes to consume the Glucerna supplement (strawberry)- will recommend for the pt, if K and phos become high, will recommend to switch to nepro.
--- NOTE | 2019-07-09 14:02 | NUR ---
PATIENT CONTINUING TO RECEIVE DIALYSIS AT THIS TIME.
[2019-07-09] MEDS ORDERED: SODIUM CHLORIDE 0.9% 250ML 250 ML IV SCH (15:30)
[2019-07-09] MEDS: CARVEDILOL 3.125 MG TAB PO SCH (18:16)
[2019-07-09] MEDS: PANTOPRAZOL 40MG/SOD CHL 0.9% 50 ML IV SCH ×2 (19:08→23:30)
--- NOTE | 2019-07-09 19:33 | NUR ---
PATIENT IN STABLE CONDITION WITH NO S/S RESPIRATORY DISTRESS- NO PAIN VOICED. TELEMETRY APPLIED. PATIENT HAD 2 LITERS REMOVED FROM DIALYSIS TODAY. PLAN FROM DR. ORTIZ IS FOR PATIENT TO RECEIVE 1 UNIT OF PRBC ON SUNDAY WITH HIS DIALYSIS. CALL LIGHT IS WITHIN REACH, PATIENT INSTRUCTED TO CALL FOR ASSISTANCE NEEDED. BEDSIDE SHIFT REPORT GIVEN TO ONCOMING NURSE.
--- NOTE | 2019-07-09 19:52 | NUR ---
RECEIVED PT IN BED AOX3 EATING ,DENIES PAIN .EGD SHOWS HAIDER IN ESOPHAGUS ,AND GASTRITIS .CALL LIGHT WITH IN REACH .CONTINUE TO MONITOR
[2019-07-10] VITALS (8 sets, daily range): BP systolic 109–160; BP diastolic 59–75
[2019-07-10 05:57] LABS: BASOPHILS # (AUTO) 0.1 (0.0-0.1); BASOPHILS % 0.9 % (0.0-1.0); EOSINOPHILS # (AUTO) 0.2 (0.0-0.4); EOSINOPHILS % 3.9 % (0.0-6.0); HEMATOCRIT 21.7 % (38.2-49.6); LYMPHOCYTES # (AUTO) 0.9 (1.0-3.2); LYMPHOCYTES % 16.5 % (18.0-39.1); MEAN CORPUSCULAR HEMOGLOBIN 28.4 pg (28-32); MEAN CORPUSCULAR HGB CONC 31.8 g/dL (31-35); MEAN CORPUSCULAR VOLUME 89.3 fL (81-99); MONOCYTES # (AUTO) 0.5 (0.2-0.8); MONOCYTES % 8.4 % (4.4-11.3); NEUTROPHILS # (AUTO) 3.9 (2.1-6.9); NEUTROPHILS % 69.9 % (38.7-80.0); PLATELET COUNT 235 x10e3/uL (140-360); RED BLOOD COUNT 2.43 x10e6/uL (4.3-5.7); RED CELL DISTRIBUTION WIDTH 19.3 % (11.7-14.4)
[2019-07-10 06:15] LABS: CALCIUM 8.2 mg/dL (8.4-10.2); CREATININE, SERUM 2.46 mg/dL (0.72-1.25)
[2019-07-10 06:27] LABS: HEMOGLOBIN 6.9 g/dL (14.0-18.0)
--- NOTE | 2019-07-10 07:10 | NUR ---
PATIENT IN STABLE CONDITION WITH NO S/S RESPIRATORY DISTRESS. NO PAIN VOICED BY PATIENT. IV PROTONIX INFUSING. PATIENT NOTED WITH BM DURING SHIFT CHANGE- DIAPER CHANGED. BED ALARM APPLIED. CALL LIGHT IS WITHIN REACH, PATIENT INSTRUCTED TO CALL FOR ASSISTANCE NEEDED.
--- NOTE | 2019-07-10 07:14 | NUR ---
Hgb IS 6.[address] CAZARES AND TOLD DR ORTIZ ORDERED 1 UNIT OF BLOOD DURING THE DIALYSIS . DR CAZARES SAID OK NO ORDER GIVEN BY DR CAZARES BEDSIDE REPORT GIVEN TO THE ONCOMING NURSE
[2019-07-10] MEDS: PANTOPRAZOL 40MG/SOD CHL 0.9% 50 ML IV SCH ×4 (07:19→18:00)
[2019-07-10] MEDS: SUCRALFATE 1 GM TAB PO SCH ×4 (07:54→21:00)
[2019-07-10] MEDS: NIFEDIPINE CR 30 MG TAB PO SCH ×2 (07:54→21:00)
[2019-07-10] MEDS: CARVEDILOL 3.125 MG TAB PO SCH ×2 (07:54→17:52)
[2019-07-10] MEDS: FLUCONAZOLE 200 MG/100 ML 100 ML IV SCH (11:02)
--- NOTE | 2019-07-10 19:37 | NUR ---
PATIENT IN STABLE CONDITION WITH NO S/S RESPIRATORY DISTRESS. NO PAIN VOICED. IV PROTONIX INFUSING. VISITOR PRESENT IN ROOM. CALL LIGHT IS WITHIN REACH, PATIENT INSTRUCTED TO CALL FOR ASSISTANCE NEEDED. BEDSIDE SHIFT REPORT GIVEN TO ONCOMING NURSE.
--- NOTE | 2019-07-10 19:44 | NUR ---
RECEIVED PT IN BED AOX3.PROTONIX IV IS INFUSING .DENIES PAIN.CALL LIGHT WITH IN REACH .CONTINUE TO MONITOR
[2019-07-11] VITALS (8 sets, daily range): BP systolic 114–228; BP diastolic 56–109
[2019-07-11] MEDS: PANTOPRAZOL 40MG/SOD CHL 0.9% 50 ML IV SCH ×5 (01:28→20:17)
--- NOTE | 2019-07-11 06:15 | NUR ---
PT RESTING AND DENIES PAIN ,PROTONIX IS INFUSING ,CALL LIGHT WITH IN REACH .CONTINUE TO MONITOR
[2019-07-11 06:18] LABS: BASOPHILS % 0.6 % (0.0-1.0); EOSINOPHILS # (AUTO) 0.3 (0.0-0.4); EOSINOPHILS % 5.3 % (0.0-6.0); LYMPHOCYTES # (AUTO) 1.1 (1.0-3.2); LYMPHOCYTES % 18.2 % (18.0-39.1); MEAN CORPUSCULAR HEMOGLOBIN 28.7 pg (28-32); MEAN CORPUSCULAR HGB CONC 31.2 g/dL (31-35); MEAN CORPUSCULAR VOLUME 91.9 fL (81-99); MONOCYTES # (AUTO) 0.5 (0.2-0.8); MONOCYTES % 8.3 % (4.4-11.3); NEUTROPHILS # (AUTO) 4.2 (2.1-6.9); NEUTROPHILS % 67.4 % (38.7-80.0); PLATELET COUNT 193 x10e3/uL (140-360); RED BLOOD COUNT 2.23 x10e6/uL (4.3-5.7); RED CELL DISTRIBUTION WIDTH 19.1 % (11.7-14.4)
[2019-07-11 06:23] LABS: HEMOGLOBIN 6.4 g/dL (14.0-18.0)
[2019-07-11 06:24] LABS: HEMATOCRIT 20.5 % (38.2-49.6)
[2019-07-11 06:35] LABS: ANION GAP 12.1 mmol/L (8-16); CALCIUM 8.1 mg/dL (8.4-10.2); CREATININE, SERUM 3.71 mg/dL (0.72-1.25); POTASSIUM 4.1 mmol/L (3.5-5.1)
--- NOTE | 2019-07-11 07:05 | NUR ---
PATIENT IN STABLE CONDITION WITH NO S/S RESPIRATORY DISTRESS. TELEMETRY APPLIED. NO PAIN VOICED. DIAPER APPLIED. BED ALARM APPLIED. CALL LIGHT IS WITHIN REACH, PATIENT INSTRUCTED TO CALL FOR ASSISTANCE NEEDED.
--- NOTE | 2019-07-11 07:12 | NUR ---
BEDSIDE REPORT GIVEN TO THE ONCOMING NURSE
[2019-07-11] MEDS: SUCRALFATE 1 GM TAB PO SCH ×4 (07:54→20:17)
[2019-07-11] MEDS: NIFEDIPINE CR 30 MG TAB PO SCH ×2 (08:28→20:17)
[2019-07-11] MEDS: CARVEDILOL 3.125 MG TAB PO SCH ×2 (08:28→16:00)
[2019-07-11] MEDS ORDERED: MAGNESIUM HYDROXIDE 30 ML UDC PO PRN (09:15)
[2019-07-11] MEDS ORDERED: DOCUSATE SODIUM 100 MG CAP PO SCH (09:50)
--- NOTE | 2019-07-11 10:21 | NUR ---
PENITENTIARY FACILITY DISCHARGE INFORMATION PATIENT HAS BEEN ACCEPTED TO: [facility] NAME:[facility] ADDRESS:[id number] [facility] ACCEPTING FRONT OF HOUSE MANAGER:ROGERS MYERS MD:DILLAN Robles NURSE CALL REPORT TO: [phone] IMM SIGNED AND OBTAINED (if applicable): IMM THE FOLLOWING DOCUMENTS MUST ACCOMPANY PATIENT FOR TRANSFER: COPIED CHART:PACKET
--- NOTE | 2019-07-11 11:18 | NUR ---
CALL PLACED OUT TO DR. ORTIZ REGARDING TODAY'S HGB OF 6.4- AWAITING CALLBACK
--- NOTE | 2019-07-11 14:10 | Diagnostic Imaging Report ---
Exam: KUB - 2 views Indication: Constipation Comparison: <None.> Findings: Nonobstructive bowel gas pattern. Increased stool burden in the rectum and sigmoid colon, consistent with constipation. No free air. No acute osseous injury. Impression: Increased stool burden in the rectum and sigmoid colon, compatible with constipation. Signed by: Chandrakant Leija MD on 07/11/2019 2:07 PM
[2019-07-11] MEDS ORDERED: SODIUM CHLORIDE 0.9% 250ML 250 ML IV ONE (15:00)
[2019-07-11] MEDS ORDERED: SODIUM CHLORIDE 0.9% 250ML 250 ML ONE (17:08)
--- NOTE | 2019-07-11 17:19 | NUR ---
SECOND UNIT OF PRBC VERIFIED BY TWO RN'S AND WILL BE ADMINISTERED AGAIN DURING DIALYSIS.
--- NOTE | 2019-07-11 19:21 | NUR ---
PATIENT IN STABLE CONDITION WITH NO S/S RESPIRATORY DISTRESS. NO PAIN VOICED. PATIENT IS RECEIVING DIALYSIS AT THIS TIME. NIGHT NURSE INFORMED OF LACTULOSE ORDER, TO RESTART IV PROTONIX DRIP, ADMINISTER THE PATIENT'S ANTIBIOTIC POST DIALYSIS. PRESENT IN ROOM. CALL LIGHT IS WITHIN REACH, PATIENT INSTRUCTED TO CALL FOR ASSISTANCE NEEDED. BEDSIDE SHIFT REPORT GIVEN TO ONCOMING NURSE.
--- NOTE | 2019-07-11 19:45 | NUR ---
DIALYSIS COMPLETED.1.8 LITRE REMOVED.STABLE CONDITION.HAD DINNER.
[2019-07-11] MEDS ORDERED: LACTULOSE SYRUP 20 GM/30 ML UDC PO SCH (20:00)
[2019-07-11] MEDS: FLUCONAZOLE 200 MG/100 ML 100 ML IV SCH (20:16)
--- NOTE | 2019-07-11 22:00 | NUR ---
AAOX3.ASSESSMENT DONE.NO RESP.DISTRESS.BED LOCKED AND IN LOWEST POSITION.PHONE AND CALL LIGHT WITHIN REACH.INSTRUCTED TO CALL FOR ASSISTANCE NEEDED.BED ALARM ON.REPOSITIONED.STABLE CONDITION.NO PAIN VOICED.
[2019-07-12] VITALS (9 sets, daily range): BP systolic 114–198; BP diastolic 58–87
[2019-07-12] MEDS: CLONIDINE HCL 0.3 MG TAB PO PRN (00:22)
[2019-07-12] MEDS: PANTOPRAZOL 40MG/SOD CHL 0.9% 50 ML IV SCH ×5 (01:25→20:13)
[2019-07-12] MEDS: METOPROLOL TARTRATE INJ 1 MG/ML VIAL IV PRN (06:05)
--- NOTE | 2019-07-12 06:06 | NUR ---
BP NOTED 187/78 MMOF HG.METOPROLOL 5MG IV GIVEN.KEEP MONITOR THE PATIENT.
--- NOTE | 2019-07-12 06:39 | NUR ---
CHECKED BP AND NOTED 170/80 MMOF HG.
[2019-07-12 06:51] LABS: BASOPHILS # (AUTO) 0.1 (0.0-0.1); BASOPHILS % 1.3 % (0.0-1.0); EOSINOPHILS # (AUTO) 0.3 (0.0-0.4); EOSINOPHILS % 4.7 % (0.0-6.0); LYMPHOCYTES # (AUTO) 1.4 (1.0-3.2); LYMPHOCYTES % 23.6 % (18.0-39.1); MEAN CORPUSCULAR HEMOGLOBIN 28.4 pg (28-32); MEAN CORPUSCULAR HGB CONC 32.3 g/dL (31-35); MEAN CORPUSCULAR VOLUME 88.1 fL (81-99); MONOCYTES # (AUTO) 0.5 (0.2-0.8); MONOCYTES % 9.1 % (4.4-11.3); NEUTROPHILS # (AUTO) 3.6 (2.1-6.9); NEUTROPHILS % 61.1 % (38.7-80.0); PLATELET COUNT 237 x10e3/uL (140-360); RED BLOOD COUNT 3.52 x10e6/uL (4.3-5.7); RED CELL DISTRIBUTION WIDTH 18.6 % (11.7-14.4)
--- NOTE | 2019-07-12 07:00 | NUR ---
BED SIDE SHIFT REPORT GIVEN TO ONCOMING RN.STABLE CONDITION.
--- NOTE | 2019-07-12 07:00 | NUR ---
received bedside report. pt is alert resting in bed, no s/s of distress. call light within reach and instructed pt to call RN for help
[2019-07-12 07:16] LABS: ANION GAP 8.9 mmol/L (8-16); CALCIUM 8.8 mg/dL (8.4-10.2); CREATININE, SERUM 2.49 mg/dL (0.72-1.25); POTASSIUM 3.9 mmol/L (3.5-5.1)
[2019-07-12] MEDS: SUCRALFATE 1 GM TAB PO SCH ×4 (08:54→21:16)
[2019-07-12] MEDS: CARVEDILOL 3.125 MG TAB PO SCH (08:55)
[2019-07-12] MEDS: NIFEDIPINE CR 30 MG TAB PO SCH ×2 (08:55→21:16)
[2019-07-12] MEDS: FLUCONAZOLE 200 MG/100 ML 100 ML IV SCH (11:22)
[2019-07-12] MEDS: CARVEDILOL 12.5 MG TAB PO SCH (17:00)
[2019-07-13] VITALS (8 sets, daily range): BP systolic 127–162; BP diastolic 61–76
--- NOTE | 2019-07-13 00:45 | NUR ---
Resting comfortably in the bed.stable condition.no pain voiced v/s stable.
[2019-07-13] MEDS: PANTOPRAZOL 40MG/SOD CHL 0.9% 50 ML IV SCH ×5 (01:11→21:30)
--- NOTE | 2019-07-13 06:59 | NUR ---
BED SIDE SHIFT REPORT GIVEN TO ONCOMING RN.STABLE CONDITION.
--- NOTE | 2019-07-13 07:00 | NUR ---
received bedside report. pt is sleeping, no s/s of distress. call light within reach and bed safety in place
[2019-07-13] MEDS: NIFEDIPINE CR 30 MG TAB PO SCH ×2 (08:43→21:28)
[2019-07-13] MEDS: SUCRALFATE 1 GM TAB PO SCH ×4 (08:43→21:28)
[2019-07-13] MEDS: CARVEDILOL 12.5 MG TAB PO SCH ×2 (08:43→17:00)
[2019-07-13] MEDS: FLUCONAZOLE 200 MG/100 ML 100 ML IV SCH (11:00)
--- NOTE | 2019-07-13 19:05 | NUR ---
Patient visited in room during nursing rounds. Patient alert and oriented x3. No distress or discomfort noted. Monitoring BP closely. Pt on Protonix drip at 10ml/hr. EZIO fistula present. Call lundberg within reach. Will monitor pt closely.
[2019-07-14] VITALS (7 sets, daily range): BP systolic 139–179; BP diastolic 63–81
[2019-07-14] MEDS: PANTOPRAZOL 40MG/SOD CHL 0.9% 50 ML IV SCH ×3 (02:36→12:00)
--- NOTE | 2019-07-14 03:55 | NUR ---
Dr. Dennis Lockhart came and visited pt in room. MD talked to patient and aware of pt condition. MD ordered Dietary consult and x1 dose of Dulcolax 20mg PO.
[2019-07-14] MEDS ORDERED: BISACODYL 5 MG TAB EC PO ONE (04:15)
--- NOTE | 2019-07-14 07:10 | NUR ---
PATIENT IS ALERT AND IN STABLE CONDITION WITH NO S/S RESPIRATORY DISTRESS. NO PAIN VOICED. TELEMETRY APPLIED. BED ALARM APPLIED. PATIENT IS DUE TO HAVE DIALYSIS TODAY. CALL LIGHT IS WITHIN REACH, PATIENT INSTRUCTED TO CALL FOR ASSISTANCE NEEDED.
[2019-07-14] MEDS: CARVEDILOL 12.5 MG TAB PO SCH ×2 (08:00→16:52)
[2019-07-14] MEDS: SUCRALFATE 1 GM TAB PO SCH ×3 (08:24→16:51)
[2019-07-14] MEDS: NIFEDIPINE CR 30 MG TAB PO SCH (08:24)
--- NOTE | 2019-07-14 09:49 | NUR ---
SPOKE WITH FACILITY, PT AUTH IS STILL GOOD CAN RETURN TODAY
[2019-07-14] MEDS ORDERED: SODIUM CHLORIDE 0.9% 1000ML 1,000 ML ONE (10:16)
--- NOTE | 2019-07-14 11:42 | NUR ---
EDUCATED ABOUT IMM, SIGNED, FILED IN CHART, WITH COPY LEFT WITH FAMILY AT BEDSIDE.
--- NOTE | 2019-07-14 11:45 | NUR ---
Nutrition Intervention Note RD Recommendation(s) for Physician: -Continue current diet per MD, consider renal diet pending lab trends. -Recommend appetite stimulant per MD if medically feasible. -Recommend ONS BID to provide the pt with additional calories and protein. -Continue bowel regimen per MD. -Recommend checking phos level. -Pt meets criteria for MODERATE protein calorie malnutrition. Plan of Care: RD following, monitoring for tolerance and adequacy. Nepro BID. Nutrition reason for involvement: (follow up/ MD consult) RD Assessment 07/13: MD consult/follow up: Pt was seen resting in bed, getting ready to consume breakfast. Received consult from MD, reason is unknown (no text available in the consult), asked the nurse and she was not told why, could possibly be related to constipation. LBM: 07/13. Pt was given dulcolax. The pt reported a good appetite, he has been consuming 25-100% of his meals per FS. Pt reported he likes to consume the soups, but reported his meat is sometimes dry, will record this within HT. Pt was open to receiving nepro BID as well and open to receiving education regarding constipation and ESRD MNT. Per nurse, the pt has been eating well. Pt had no other questions or concerns. Possible d/c today. Will continue to monitor. 07/08: 58 YOM admitted for hypertensive urgency with PMH listed below. The pt was seen resting in the dark. Pt reported that his appetite was somewhat poor right now but he has denied any recent weight loss. The pt also denied N/V/C/D/chewing or swallowing issues as well as any food allergies. Recommended ONS d/t pts appetite being poor. Pt is from [facility]. Pt was recently d/c here in Apr, he was evaluated as severe protein calorie malnutrition at that time. Pt was 139 lbs on 05/07, pt is currently 124 lbs suggesting a 12 % weight loss within 2 months which is significant. Pt was 110 lbs in 05/22 which does suggest weight gain. Weight fluctuations could be related to fluid accumulation. Will continue to monitor. Principal Problems/Diagnoses: Hypertensive urgency, malignant PMH: 1. End-stage renal disease. 2. Hypertension. 3. Hypercholesterolemia. 4. Anemia of chronic disease. 5. Right 5th toe amputation. 6. Recent VATS for loculated pleural effusion. GI: LBM: 06/28, abd: soft, round Skin: several wounds recorded per EMR, no pressure ulcers recorded Labs: 07/13: reviewed 07/08: POC GM: 89-117 Meds: pantoprazole sodium, catapres, carafate, duloclax given Ht: 72 in Wt: 124 lbs BMI: 16.8 kg/m^2 IBW: 178 lbs Malnutrition Evaluation (07/08) The patient meets criteria for unspecified MODERATE protein-calorie malnutrition. Energy intake: <50% of estimated energy requirements for >1 month (pt reports poor appetite) Weight loss: >7.5% in 3 months (Chronic) pt had a 12% weight loss within 2 months. Fat loss: Moderate-eyes Muscle loss: Moderate-congregational Supporting Evidence: Fluid accumulation: unable to evaluate Functional Status:unable to evaluate Nutrition Prescription (Diet Order): cardiac diet Estimated Nutritional Needs: Calories: 3357-0999 kcal/day (30-35 kcal/kg/day) Weight used : CBW Protein : 67-84 protein/day (1.2-1.5 gram/kg/day ) Weight used: Diet Adequacy: meeting calorie needs, meeting protein needs Diet Education Needs Assessment: Diet education indicated, pt accepted. Nutrition Care Level: mod Nutrition Diagnosis: chronic protein calorie malnutrition related to medical condition as evidenced by the pt having a 12% weight loss within 2 months and reports of poor intake. Goal: Patient will meet 75-100% of estimated needs by follow up Progress: progressing Interventions: -( fat, cholesterol (mineral sodium, phos, K)-modified diet, Commercial beverage, Prescription medications, Survival information, Collaboration with other providers Monitoring/Evaluation: -Total energy intake, Total protein intake, Prescription medication, Modified diet, Liquid supplement, Weight change, Signed: Lilliam Hess RD, LD Nutrition Education Learner(s): pt Barriers: No barriers identified. Cultural/Language Modifications: No cultural/language modifications noted Readiness: acceptance Method: discussion, handout Topics: Renal MNT during dialysis, constipation tips Understanding/Compliance: Expect poor to fair understanding/compliance from pt.
[2019-07-14] MEDS: FLUCONAZOLE 200 MG/100 ML 100 ML IV SCH (14:32)
[2019-07-14] MEDS ORDERED: PANTOPRAZOLE SOD 40 MG TABEC PO SCH (16:30)
--- NOTE | 2019-07-14 17:25 | NUR ---
[facility] SPOKE WITH MICK RN AT 0829. PATIENT GOING TO ROOM 113
--- NOTE | 2019-07-14 18:11 | Discharge Summary ---
FINAL DIAGNOSIS: Hypertensive emergency. SECONDARY DIAGNOSES: 1. Treva esophagitis. 2. Severe gastritis. 3. Chronic blood loss anemia, status post 2 units of blood. 4. Chronic bilateral pleural effusion. CONSULTANTS: 1. Dr. Lockhart, GI. 2. Dr. Fraire, Pulmonary. 3. Dr. Rivas, Renal. PROCEDURES/STUDIES PERFORMED: EGD. HISTORY: Per H and P. HOSPITAL COURSE: Initially, the patient came in with hypertensive emergency. The patient was on Cardene drip after we restarted him on nifedipine XL 60 mg twice a day. We were able to wean him off the Cardene drip. The patient has been losing weight, not eating. Therefore, EGD was performed, which showed Treva esophagitis and severe gastritis. The patient was put on Protonix drip and also IV fluconazole. Now, it is finally getting better now. The patient is eating better. We will go ahead and switch fluconazole to oral and also switch his Protonix to oral b.i.d. As far as the bilateral pleural effusion, the patient had recent VATS. Since the patient is stable, nothing was done on this. The patient was evaluated by Pulmonology. The patient was seen and examined today. It took 32 minutes to discharge this patient. CONDITION ON DISCHARGE: Improved. DISCHARGE MEDICATIONS: Please see medication reconciliation form. MD HOSEA Trevizo/BRIT /[id number]
--- NOTE | 2019-07-14 19:06 | NUR ---
PATIENT TRANSFER TO [facility] RESORT ROOM 113. PATIENT OFF THE UNIT AT 1840 PER STRETCHER ACCOMPANIED BY 2-PERSON EMS SERVICE. PATIENT IN STABLE CONDITION WITH NO S/S RESPIRATORY DISTRESS. NO PAIN VOICED. IV REMOVED TO THE RIGHT UPPER ARM WITH TIP INTACT. TRANSFER PACKET GIVEN TO EMS SERVICE. ALL PERSONAL ITEMS WERE TAKEN WITH THE PATIENT AND EMS SERVICE.
[2019-07-15] MEDS ORDERED: FLUCONAZOLE 100 MG TAB PO SCH (09:00)
== END 2019-07-14 19:04 | DRG 304 ==
LOC: ER 13:42 → ERHOLD 15:53 → MED/SURG3 07-08 13:50
PROVIDERS: ADMIT Internal Medicine; ATTEND Internal Medicine
PROC: 5A1D70Z Performance of Urinary Filtration, Intermittent, Less than 6 Hours Per Day (ICD-10-PCS; 2019-07-07)
PROC: 0DB78ZX Excision of Stomach, Pylorus, Via Natural or Artificial Opening Endoscopic, Diagnostic (ICD-10-PCS; 2019-07-09)
PROC: 0DD58ZX Extraction of Esophagus, Via Natural or Artificial Opening Endoscopic, Diagnostic (ICD-10-PCS; 2019-07-09)
PROC: 30243N1 Transfusion of Nonautologous Red Blood Cells into Central Vein, Percutaneous Approach (ICD-10-PCS; principal; 2019-07-11)
DX: I16.1 Hypertensive emergency (principal); N18.6 End stage renal disease; J94.8 Other specified pleural conditions; Z68.1 Body mass index [BMI] 19.9 or less, adult; B37.81 Candidal esophagitis; J94.2 Hemothorax; E87.6 Hypokalemia; R63.6 Underweight; K29.70 Gastritis, unspecified, without bleeding; D50.0 Iron deficiency anemia secondary to blood loss (chronic); I12.0 Hypertensive chronic kidney disease with stage 5 chronic kidney disease or end stage renal disease; Z99.2 Dependence on renal dialysis; R62.7 Adult failure to thrive; D63.8 Anemia in other chronic diseases classified elsewhere; Z89.421 Acquired absence of other right toe(s)
CPT/HCPCS: 36415; 43235; 43239; 71045; 74018; 80048; 80053; 82550; 82553; 82948; 83540; 83735; 83921; 84132; 84466; 84484; 85025; 85610; 85730; 86850; 86900; 86920; 87106; 87205; 88104; 88112; 88305; 88312; 93005; 97139; 99284; J0360; J1450; J7030; J7040; J7050; P9016

== ENCOUNTER 2019-07-24 08:27 | Inpatient (IN) | payer MEDICARE, OTHER ==
[~2019-07-24] VITALS: Ht 162.6 cm; Wt 51.7 kg
[2019-07-24] MEDS ORDERED: SODIUM CHLORIDE 0.9% 1000ML 1,000 ML IV ONE (08:30)
[2019-07-24 09:09] LABS: BASOPHILS # (AUTO) 0.1 (0.0-0.1); BASOPHILS % 1.1 % (0.0-1.0); EOSINOPHILS # (AUTO) 0.3 (0.0-0.4); EOSINOPHILS % 5.1 % (0.0-6.0); HEMATOCRIT 29.8 % (38.2-49.6); HEMOGLOBIN 9.7 g/dL (14.0-18.0); LYMPHOCYTES # (AUTO) 1.3 (1.0-3.2); LYMPHOCYTES % 25.3 % (18.0-39.1); MEAN CORPUSCULAR HEMOGLOBIN 28.9 pg (28-32); MEAN CORPUSCULAR HGB CONC 32.6 g/dL (31-35); MEAN CORPUSCULAR VOLUME 88.7 fL (81-99); MONOCYTES # (AUTO) 0.5 (0.2-0.8); MONOCYTES % 9.9 % (4.4-11.3); NEUTROPHILS # (AUTO) 3.1 (2.1-6.9); NEUTROPHILS % 58.4 % (38.7-80.0); PLATELET COUNT 213 x10e3/uL (140-360); RED BLOOD COUNT 3.36 x10e6/uL (4.3-5.7); RED CELL DISTRIBUTION WIDTH 17.8 % (11.7-14.4)
[2019-07-24 09:30] LABS: ALBUMIN 2.2 g/dL (3.5-5.0); ALBUMIN/GLOBULIN RATIO 0.5 (0.8-2.0); ANION GAP 9.7 mmol/L (8-16); CALCIUM 8.1 mg/dL (8.4-10.2); CREATININE, SERUM 2.79 mg/dL (0.72-1.25); MAGNESIUM 1.8 MG/DL (1.3-2.1); PHOSPHORUS 1.2 MG/DL (2.3-4.7)
[2019-07-24 09:35] LABS: POTASSIUM 2.7 mmol/L (3.5-5.1)
[2019-07-24 09:36] LABS: CLARITY,URINE CLEAR (CLEAR); COLOR,URINE YELLOW (YELLOW); KETONES,URINE NEGATIVE (NEGATIVE); LEUKOCYTE ESTERASE ,URINE NEGATIVE (NEGATIVE); NITRITE,URINE NEGATIVE (NEGATIVE); PROTEIN,URINE DIPSTICK >=300 (NEGATIVE)
[2019-07-24 09:37] LABS: BILIRUBIN,URINE NEGATIVE (NEGATIVE); URINE UROBILINOGEN 0.2 mg/dL (0.2 - 1)
[2019-07-24 09:39] LABS: INFLUENZAE A&B ANTIGEN (RAPID) NEGATIVE (NEGATIVE)
[2019-07-24 09:47] LABS: BACTERIA,URINE MODERATE /HPF; CALCIUM OXALATE CRYSTALS,UR RARE (FEW); EPITHELIAL CELLS,URINE MODERATE /LPF
[2019-07-24 09:47] LABS: STREPTOCOCCUS GRP A ANTIGEN NEGATIVE (NEGATIVE)
--- NOTE | 2019-07-24 10:38 | Diagnostic Imaging Report ---
Chest, 1 view, 07/24/2019. History: Cough, fever. Comparison: 07/08/2019. Findings: The cardiomediastinal silhouette and pulmonary vasculature are prominent with hazy bilateral perihilar and bibasilar opacities. There is blunting of the costophrenic sulci bilaterally with widening of the right pleural margin. There are no acute osseous or soft tissue abnormalities. Impression: Findings suggestive of CHF with bibasilar atelectasis and effusions, right greater than left. Superimposed pneumonia cannot be excluded. Signed by: Alex Garcia on 07/24/2019 10:35 AM
[2019-07-24] MEDS ORDERED: POTASSIUM CHLORIDE 20MEQ/15ML UDC PO ONE (11:15)
--- NOTE | 2019-07-24 11:48 | NUR ---
Spoke with Perri from [facility] regarding patients dentures being that he is being admitted into the hospital. Patient states that he is unable to chew without his dentures. Was told by Perri that she would arrange to get patients dentures brought over to facility.
--- NOTE | 2019-07-24 11:50 | NUR ---
unable to verify home meds
--- NOTE | 2019-07-24 13:43 | NUR ---
unable to transport patient at the moment because Dr. Monroy has to see patient prior to transport to see if patient should go to inpatient or observation unit.
--- NOTE | 2019-07-24 14:00 | NUR ---
report given to Cherelle VASQUEZ
--- NOTE | 2019-07-24 15:27 | NUR ---
dictaed [id number]
[2019-07-24] MEDS ORDERED: SODIUM PHOSPHATE 3 MMOL/ML INJ IV ONE (15:30)
[2019-07-24] MEDS ORDERED: VANCOMYCIN 1GM/NS 250 ML 250 ML IV PRN (16:00)
[2019-07-24] MEDS ORDERED: SODIUM PHOSPHATE 10 MMOL in SODIUM CHLORIDE 0.9% 250ML 250 ML IV SCH (16:00)
[2019-07-24] MEDS ORDERED: VANCOMYCIN 1GM/NS 250 ML 250 ML IV SCH (16:00)
[2019-07-24] MEDS ORDERED: CEFEPIME HCL 1 GM VIAL IV SCH (17:00)
--- NOTE | 2019-07-24 18:15 | NUR ---
pt arrived to unit resp even and unlabored at this time no distress noted no shortness of breath indicated, pt on droplet isolation, pt oriented to room and call light, bed rail up x2 bed in lowest position, will cont to monitor.
[2019-07-24 19:00] VITALS: BP 185/98
--- NOTE | 2019-07-24 19:03 | NUR ---
BEDSIDE REPORT RECEIVED FROM DAY RN. PT IS ALERT AND ORIENTED X3. RESPIRATIONS EVEN AND UNLABORED. REMAINS ON RA. AFEBRILE. NO COUGH NOTED. ON TELE SR. LEFT AV FISTULA INTACT- THRILL AND BRUITT PRESENT. INCONTINENT OF BLADDER. PT REPORTS DIALYSIS SUN, SUN, SUNDAY. CALL LIGHT WITHIN REACH. BED IN LOW POSITION. PT DENIES PAIN. PT ON BEDREST- UNABLE TO WALK. PHONE AND DENTURES LEFT AT RESORT. FAMILY NOTIFIED OF PHONE AND DENTURES LEFT AT SNF.
--- NOTE | 2019-07-24 19:36 | Consultation ---
DATE OF CONSULTATION: REASON FOR CONSULTATION: Fever, chills, pneumonia. HISTORY OF PRESENT ILLNESS: This patient, who is from a halfway. He was transferred to us with fever. The patient apparently has been also having some shortness of breath. The patient was sent to the emergency room. I was contacted to see him. The patient, who does not really provide any meaningful information. History was taken mainly from the chart. This patient was recently in the hospital in June. He has history of hypertension, history of video-assisted thoracotomy with chest tube insertion, status post removal recently, hypertension, end-stage renal disease on hemodialysis, and congestive heart failure. The patient had as mentioned above, decortication of the right lung, was here in June and May. The patient was debilitated, not a good source of information, taken mainly from the chart. He was brought here because the halfway they noted he had fever and shortness of breath, so he was sent to the emergency room. In the emergency room, he was evaluated. Since he gets here, his vitals are stable. He is alert and comfortable, but does not have any complaints. There is no fever reported so far by the time I saw him in the emergency room. I was contacted to see him urgently. REVIEW OF SYSTEMS: Could not be obtained, but it seems that the patient is just weak and he had some shortness of breath and cough. LABORATORY DATA: His white count 5.26 and hemoglobin 9.7. Sodium 141, potassium 2.7, and creatinine 2.79. Influenza is negative. Marroquin PCR was sent since we are in the amid of COVID-19 outbreak. His chest x-ray was consistent with congestive heart failure and may be right effusion, possibility of pneumonia cannot be ruled out. PHYSICAL EXAMINATION: GENERAL: He is comfortable. Does not seem to be in acute distress. VITAL SIGNS: Stable, currently afebrile little bit. HEENT: He is not icteric. NECK: Supple. CHEST: Few crackles at the bases. COR: S1 and S2. No S3, S4, or murmur. ABDOMEN: Soft. IMPRESSION: 1. I think the patient have concerns about pneumonia aspiration/healthcare-associated with fqtwj-la-bjfhbey congestive heart failure, while he would benefit from diuresis and maximizing his fluid status. I would recommend the patient cefepime and vancomycin, swallow evaluation, adjust for his kidney function. 2. End-stage renal disease. 3. Debility. 4. We will follow with you. MD DARIO Hernandez/BRIT /[id number]
[2019-07-24 20:38] VITALS: BP 185/98
[2019-07-24 21:00] VITALS: BP 185/98
[2019-07-24] MEDS ORDERED: NIFEDIPINE CR 30 MG TAB PO SCH (21:00)
--- NOTE | 2019-07-24 22:52 | Consultation ---
DATE OF CONSULTATION: 07/24/2019 Pulmonary Medicine Consult REASON FOR REFERRAL: Coronavirus exposure. HISTORY OF PRESENT ILLNESS: Mr. Kurtis Borjas is a 58-year-old gentleman with concern for coronavirus exposure. The [facility] in [facility]. The patient gets dialysis 3 times a week. The patient denies any knowledge of any fevers. No known sick contacts and no known coronavirus contacts that he knows about. He states his custodial is locked out and there are no visitors on his behalf. The patient claims he does not know why he was sent to the emergency room, but he presents. The patient also has no fevers. He is submitted to coronavirus status and he is admitted. PAST MEDICAL HISTORY: Hypertension, VATS with chest tube insertion, hypertension, end-stage renal disease on dialysis, CHF with no echo on file. MEDICATIONS: Medication list reviewed per the chart record. ALLERGIES: NO KNOWN DRUG ALLERGIES. SOCIAL HISTORY: No smoking. No drinking. No drugs. FAMILY HISTORY: Noncontributory. REVIEW OF SYSTEMS: GENERAL: No weight changes. OPHTHALMOLOGIC: No double vision. ENT: No mouth ulcers. ENDOCRINE: No known thyroid disease. PULMONARY: No asthma. CARDIAC: No heart attack recent. GI: No constipation. : No blood in urine. DERMATOLOGIC: No rash. NEUROLOGIC: No seizures. PSYCHIATRIC: The patient denies any active dysthymia or depression. OBJECTIVE: VITAL SIGNS: Currently afebrile, vital signs noted, reviewed per the chart record. Blood pressure is slightly high in 170s to 180s. GENERAL: In no acute distress. Alert and calm. HEENT: Normocephalic, atraumatic. NECK: Supple. Throat midline. LUNGS: Bilateral air entry, decreased breath sounds. CARDIOVASCULAR: S1, S2. No murmurs, rubs, or gallops. ABDOMEN: Soft, nontender. EXTREMITIES: No clubbing. No cyanosis. There is no edema. His legs give way too. INTEGUMENT: No rash. No purpura. LABORATORY DATA: White count 5, 30 hematocrit, and 213 platelets. Potassium 2.7, 32 carbon oxide, 27 BUN, 2.8 creatinine. Albumin is 2.2, total protein 6.3. Chest x-ray with bilateral fluid overload appearance with suspected effusions. IMPRESSION AND PLAN: 1. Abnormal chest radiography, consistent with fluid overload. 2. Bilateral pleural effusions. 3. History of environmental exposures from nursing facility in dialysis and community presence of COVID-19 novel coronavirus. 4. History of end-stage renal disease, on dialysis. 5. Rvvew-ma-pycrccw congestive heart failure, ejection fraction unknown. 6. History of hypertension. 7. Debility, weakness. 8. History of video-assisted thoracoscopic surgery. Check ultrasound of chest. Consider thoracentesis as needed. Dialysis may be helpful. Coronavirus is just now checked and we will follow up the results. Influenza assay already came back negative. Thank you very much for this consult. Please call for questions. MD AMPARO Babb/MODL /[id number]
[2019-07-24] MEDS ORDERED: SODIUM CHLORIDE 0.9% 250ML 250 ML ONE (23:47)
[2019-07-25] VITALS (7 sets, daily range): BP systolic 156–220; BP diastolic 78–126
--- NOTE | 2019-07-25 00:13 | NUR ---
B/P ELEVATED 220/126. PROCARDIA GIVEN ORDERED. WILL MONITOR AND GIVE PRN B/P MED NEEDED.
[2019-07-25] MEDS: CEFEPIME 1GM/NS 0.9% 50 ML 50 ML IV SCH ×2 (02:04→17:24)
[2019-07-25] MEDS: HYDRALAZINE HCL 20 MG/ML VIAL IV PRN ×2 (02:26→22:00)
--- NOTE | 2019-07-25 02:26 | NUR ---
B/P ELEVATED 224/110. APRESOLINE GIVEN IV. WILL MONITOR FOR RESPONSE.
[2019-07-25] MEDS ORDERED: NIFEDIPINE CR 30 MG TAB PO ONE (04:30)
[2019-07-25] MEDS ORDERED: CLONIDINE HCL 0.1 MG TAB PO ONE (04:30)
--- NOTE | 2019-07-25 04:30 | NUR ---
B/P 220/[address] VAIL CALLED. NEW ORDERS RECEIVED. CLONIDINE 0.1 MG GIVEN AND PROCARDIA XL 30 MG GIVEN NOW. NEW B/P MED ORDERS RECEIVED.WILL MONITOR B/P. DR ORTIZ CONSULTED FOR DIALYSIS.
[2019-07-25] MEDS ORDERED: NIFEDIPINE CR 30 MG TAB ONE (04:35)
[2019-07-25] MEDS ORDERED: CLONIDINE HCL 0.1 MG TAB ONE (04:36)
[2019-07-25 05:30] LABS: BASOPHILS # (AUTO) 0.1 (0.0-0.1); BASOPHILS % 1.1 % (0.0-1.0); EOSINOPHILS # (AUTO) 0.3 (0.0-0.4); EOSINOPHILS % 4.8 % (0.0-6.0); HEMATOCRIT 31.6 % (38.2-49.6); HEMOGLOBIN 10.1 g/dL (14.0-18.0); LYMPHOCYTES # (AUTO) 1.5 (1.0-3.2); LYMPHOCYTES % 28.9 % (18.0-39.1); MEAN CORPUSCULAR HEMOGLOBIN 28.5 pg (28-32); MONOCYTES # (AUTO) 0.4 (0.2-0.8); MONOCYTES % 7.6 % (4.4-11.3); NEUTROPHILS % 57.2 % (38.7-80.0); PLATELET COUNT 211 x10e3/uL (140-360); RED BLOOD COUNT 3.55 x10e6/uL (4.3-5.7); RED CELL DISTRIBUTION WIDTH 17.7 % (11.7-14.4)
--- NOTE | 2019-07-25 05:30 | NUR ---
B/P 192/89 HR 88 AFTER NEW B/P MEDS GIVEN. WILL CONTINUE TO MONITOR VS .
[2019-07-25 05:55] LABS: ALBUMIN 2.1 g/dL (3.5-5.0); ALBUMIN/GLOBULIN RATIO 0.5 (0.8-2.0); ANION GAP 11.7 mmol/L (8-16); CALCIUM 8.2 mg/dL (8.4-10.2); CREATININE, SERUM 3.53 mg/dL (0.72-1.25); MAGNESIUM 1.8 MG/DL (1.3-2.1); PHOSPHORUS 1.9 MG/DL (2.3-4.7); POTASSIUM 3.7 mmol/L (3.5-5.1)
[2019-07-25] MEDS ORDERED: NIFEDIPINE CR 30 MG TAB PO SCH (09:00)
[2019-07-25] MEDS: CLONIDINE HCL 0.1 MG TAB PO SCH ×3 (09:00→21:45)
--- NOTE | 2019-07-25 09:03 | Consultation ---
DATE OF CONSULTATION: 07/25/2019 REQUESTING PHYSICIAN: Pro Lockhart MD REASON FOR CONSULTATION: ESRD. Thank for allowing us to participate in Mr. Hull's care. HISTORY OF PRESENT ILLNESS: This is a 58-year-old male, who was transferred from a halfway with fever. He has been there for deconditioning. Beyond that, he is unable to say much. He denies any dyspnea, although the chest x-ray admission was showing some fluid overload. He is status post recent video-assisted thoracotomy with chest tube insertion and subsequent removal due to a pleural effusion, which was lymphocytic. He remains weak. He says his appetite is somewhat better. Beyond that, no issues, but there was some concern that there may have been some coronavirus in the halfway, although he is not entirely certain. I am not sure if he is mixing that up with the news he is seeing on TV. At this point, there are no fevers per staff. He was not hypotensive. He was not dyspneic. He was not actively coughing. The coronavirus PCR is pending due to the COVID-19 pandemic in the year 2019. SOCIAL HISTORY: Lives at a halfway. There is prior history of smoking, currently none. FAMILY HISTORY: He is not sure of any kidney problems. PAST MEDICAL HISTORY: 1. ESRD. 2. Fluid overload. 3. Recent thoracotomy. 4. Prior history of hypertension, although more recently he has been running hypotensive. 5. Presumably, he has some malnutrition. 6. Debility. HOME MEDICATIONS: Please see list. REVIEW OF SYSTEMS: VITAL SIGNS: Reportedly fever, although last temperature here is 98.5, 3 times in a row. CONSTITUTIONAL: Generalized weakness. NEURO: Generalized weakness. MUSCULOSKELETAL: Occasional arthralgias. RESPIRATORY: He is denying dyspnea. Rest of review is negative. PHYSICAL EXAMINATION: VITAL SIGNS: 98.6, pulse 88, blood pressure is 220/111. HEENT: Atraumatic. NECK: Unable to see any distended neck veins. CHEST: Decreased sounds at the bases. EXTREMITIES: No definite edema. ABDOMEN: Benign. Liver palpable at the right costal margin. NEURO: Appears to be alert. He gently appropriate when he speaks, but also has trouble recollecting recent events. LABORATORY DATA: COVID-19 PCR is pending. Hemoglobin is 10, K is 3.7, creatinine 3.5, BUN 38, phosphorus is quite low at 1.9, calcium of 8.2. ASSESSMENT: 1. End-stage renal disease, hypophosphatemia, minimal hypocalcemia, but the albumin is also only 2.1, so the corrected I suspect is reasonable. 2. Hypokalemia is better. 3. End-stage renal disease with fluid overload. See chest x-ray finding. PLAN: Hemodialysis today per regular schedule. We will follow along. Keep salt and water restricted. Await full microbiological studies. Sincerely, Chapito Mitchell. MD CRICKET Meza/BRIT /[id number]
--- NOTE | 2019-07-25 09:50 | Diagnostic Imaging Report ---
EXAMINATION: CHEST SINGLE (PORTABLE) INDICATION: Pleural effusion COMPARISON: Numerous prior chest radiographs, most recently 07/24/2019 FINDINGS: LINES/TUBES:EKG leads overlie the chest. LUNGS:The lungs are moderately inflated. Patchy bibasilar opacities right greater than left. PLEURA: Bilateral pleural effusions, waxing and waning compared to most recent prior chest radiographs. No pneumothorax. MEDIASTINUM:The cardiomediastinal silhouette appears unchanged in size and shape. BONES/SOFT TISSUES:No acute osseous injury. ABDOMEN:No free air under the diaphragm. IMPRESSION: Waxing and waning right greater than left pleural effusion, not significant changed compared to multiple prior chest radiographs. Right greater than left bibasilar patchy opacities, more likely subsegmental atelectasis than superimposed aspiration or pneumonia. Signed by: Chandrakant Leija MD on 07/25/2019 9:47 AM
[2019-07-25] MEDS: LOSARTAN POTASSIUM 100 MG TAB PO SCH (09:56)
[2019-07-25] MEDS ORDERED: SODIUM CHLORIDE 0.9% 1000ML 2,000 ML ONE (11:46)
--- NOTE | 2019-07-25 13:26 | NUR ---
WOUND CARE SCREENING PUP CONSULTATION. 58 YO MALE ADMITTED TO [facility] WITH DX OF UNSPECIFIED FEVER JOAN 13 PUP MODERATE STATUS AND INTERVENTIONS AND MATTRESS LABS: WBC-5.21 HGB_10.1 GLUCOSE-94 MICRO: SUTTON VIRUS PCR-PENDING GROUP A STREP SCREEN- NEGATIVE INFLUENZA TYPES A, B, AG- NEGATIVE BLOOD CULTURE - PENDING IMAGING: CHEST X-RAY IMPRESSION REPORT; WAXING AND WANING RIGHT GREATER THAN LEFT PLEURAL EFFUSION NOT SIGNIFICANT CHANGE COMPARED TO MULTIPLE PRIOR CHEST RADIOGRAPHS. RIGHT GREATER THAN LEFT BIBASILAR PATCHY OPACITIES, MORE LIKELY SUBSEGMENTAL ATELECTASIS THAN SUPERIMPOSED ASPIRATION OR PNEUMONIA. SKIN ASSESSMENT COMPLETE, NO PRESSURE AREAS, ULCERS, WOUNDS OR SKIN DISRUPTION NOTED. RECOMMENDATIONS: NURSING TO CONTINUE TO MAINTAIN MODERATE PUP STATUS AND INTERVENTIONS AND REGULAR VISCO MATTRESS NURSING TO CONTINUE TO ASSIST PATIENT OUT OF BED FOR MEALS AND MUCH TOLERATED NURSING TO CONTINUE TO ASSIST PATIENT NEEDED WITH MEALS AND NUTRITIONAL SUPPLEMENTS TO ENSURE PROPER REQUIREMENTS FOR HEALING NURSING TO CONTINUE TO OFFLOAD FEET AND HEELS NEEDED WITH PILLOW SUSPENSION WHEN IN BED Addendum: 07/25/19 at 1338 by Estela Orellana RN Amended: Links added.
--- NOTE | 2019-07-25 14:40 | NUR ---
Pulmonary Medicine DATE 07/25/2019 SUBJECTIVE: No worsening cited Mostly denies dyspnea at rest US tech noted the chest US may not be necessary, deferred REVIEW OF SYSTEMS: no bleeding, no rash OBJECTIVE: VITAL SIGNS: vital signs noted, reviewed per the chart GENERAL: no acute distress. Alert and calm. HEENT: Normocephalic, atraumatic. NECK: Supple. Throat midline. LUNGS: Bilateral air entry, decreased breath sounds. CARDIOVASCULAR: S1, S2. No murmurs, rubs, or gallops. ABDOMEN: Soft, nontender. EXTREMITIES: No clubbing. No cyanosis. no edema. Legs emaciated INTEGUMENT: No rash. No purpura. LABORATORY DATA: k 3.7, bun 38, cr 3.53, wbc 5.3, plt 211, hct 32. IMPRESSION AND PLAN: 1. Abnormal chest radiography, consistent with fluid overload. 2. Bilateral pleural effusions. 3. Hx environmental exposures from [facility] + dialysis + community presence of COVID-19 4. History of end-stage renal disease, on dialysis. 5. Pegdu-eb-rpzenns congestive heart failure, ejection fraction unknown. 6. History of hypertension. 7. Debility, weakness. 8. History of video-assisted thoracoscopic surgery. Ultrasound of chest deferred, go straight to thoracentesis evaluation per designated Dialysis for negative fluid balance. Coronavirus assay follow up Influenza assay already came back negative. Dr Fraire will see patient tomorrow Thank you very much for this consult. Please call for questions.
[2019-07-25] MEDS: NIFEDIPINE CR 30 MG TAB PO SCH (17:24)
[2019-07-25] MEDS ORDERED: SODIUM CHLORIDE 0.9% 50ML 50 ML ONE (17:34)
--- NOTE | 2019-07-25 20:54 | NUR ---
SPOKE TO AL ABOUT VANC RANDOM. HE SAID TO GIVE ANOTHER DOSE OF VANCOMYCIN AFTER HD
[2019-07-26] VITALS (9 sets, daily range): BP systolic 175–199; BP diastolic 84–97
[2019-07-26] MEDS: HYDRALAZINE HCL 20 MG/ML VIAL IV PRN ×3 (05:22→21:50)
--- NOTE | 2019-07-26 08:16 | Consultation ---
DATE OF CONSULTATION: Pulmonary Consultation REASON FOR CONSULT: Shortness of breath. HISTORY OF PRESENT ILLNESS: Mr. Kurtis Borjas is a 58-year-old male, well known to me from previous visit. The patient was in the hospital in May and underwent VATS for chronic loculated pleural effusion, and that did not show any evidence of malignancy. The patient has end-stage renal disease, came in with shortness of breath and possibility of COVID exposure. The patient underwent chest x-ray, which showed right greater than left pleural effusion and these effusions have been chronic. He has end-stage renal disease and is on hemodialysis. Currently, he denies any complaints of chest pain or shortness of breath. He has been afebrile. Infectious Disease is following the patient and the patient is on antibiotics. REVIEW OF SYSTEMS: GENERAL: Denies any fever or chills. HEAD: Denies any head trauma. ENT: Denies any earaches. CVS: Denies any chest pain. RESPIRATORY: Denies any shortness of breath. The rest of the review of systems are negative except as in HPI. PAST MEDICAL HISTORY: End-stage renal disease, chronic loculated pleural effusions, and recent VATS and decortication, which was done on the right side. FAMILY AND SOCIAL HISTORY: He does not smoke and does not drink. PHYSICAL EXAMINATION: VITAL SIGNS: Temperature 97.8, pulse of 82, and blood pressure 183/89. CHEST: Clear to auscultation bilaterally. Decreased air entry on the right side. HEART: S1-S2 audible. ABDOMEN: Soft. EXTREMITIES: No pedal edema. NEUROLOGIC: Awake and alert. LABORATORY DATA: Reviewed. ASSESSMENT/PLAN: Chronic right-sided pleural effusion status post VATS. The patient has trapped lung and unlikely the appearance will change. Continue hemodialysis per Nephrology recommendations. At this point, I do not think so there is any need for thoracentesis. Thank you for this consult. MD SHAMAR Carrillo/BRIT /[id number]
[2019-07-26] MEDS: CLONIDINE HCL 0.1 MG TAB PO SCH ×3 (10:01→21:50)
[2019-07-26] MEDS: LOSARTAN POTASSIUM 100 MG TAB PO SCH (10:01)
[2019-07-26] MEDS: NIFEDIPINE CR 30 MG TAB PO SCH ×2 (10:01→16:40)
--- NOTE | 2019-07-26 12:21 | Progress Note ---
DATE: 07/26/2019 CHIEF COMPLAINT/HISTORY OF PRESENT ILLNESS: This is a 58-year-old man, whose primary treating diagnosis is bilateral pneumonia. During this hospitalization, the patient had an influenza type A and B antigen screen performed. It was negative. He also underwent a coronavirus PCR test which was also negative. The patient states he feels much better today. He underwent hemodialysis yesterday, which he tolerated quite well. REVIEW OF SYSTEMS: As per HPI. PHYSICAL EXAMINATION: GENERAL: He is awake, alert and fully oriented, in no obvious distress. He does appear to be chronically ill. VITAL SIGNS: Height 5 feet 4 inches, weight 100 pounds, BMI 17, blood pressure 178/88, pulse 84, temperature 98.7, and oxygen saturation 98% on room air. INTEGUMENT: Skin is warm and dry. Skin is obvious pallor as well as a dusky hue. No jaundice or diaphoresis appreciated. HEENT: Anicteric sclerae. Moist mucous membranes. NECK: Supple. CARDIOVASCULAR: Distant heart sounds. Regular rate and rhythm with a S3 gallop. LUNGS: Diminished breath sounds in the bases. ABDOMEN: Benign. EXTREMITIES: No edema, but he has obvious muscle wasting in his extremities NEUROLOGIC: Intact. DIAGNOSES: 1. Bilateral pneumonia. 2. End-stage renal disease. 3. Acute on chronic systolic/diastolic congestive heart failure. 4. Hypertensive heart disease. 5. Anemia secondary to chronic kidney disease/chronic disease. 6. Underweight, BMI 17. 7. Severe protein calorie malnutrition. PLAN: 1. Order chest x-ray for the morning. 2. Continue intravenous antibiotics for patient's pneumonia. 3. Hemodialysis as per Nephrology. 4. We will check a B-type natriuretic peptide level to assess for intravascular volume overload. 5. We will continue losartan and nifedipine for blood pressure control and for treatment of congestive heart failure. I spent 30 minutes in the care of this patient. MD CHRISTIANO Fernández/BRIT /[id number] MTDChuck
[2019-07-26] MEDS: CEFEPIME 1GM/NS 0.9% 50 ML 50 ML IV SCH (18:01)
--- NOTE | 2019-07-26 18:48 | Progress Note ---
DATE: 08/26/2019 HISTORY OF PRESENT ILLNESS: The patient is stable. No new complaints. REVIEW OF SYSTEMS: Otherwise, he is just weak. He has no fever since admission. His COVID-19 came back negative. PHYSICAL EXAMINATION: GENERAL: He is noncommunicative. VITAL SIGNS: Stable, currently afebrile. HEENT: Not icteric. NECK: Supple. CHEST: Clear. HEART: Soft. IMPRESSION: 1. Aspiration pneumonia, clinically stable, to be discharged home to skilled care facility. 2. End-stage renal disease. 3. Acute on chronic congestive heart failure. 4. Anemia of chronic disease, stable. 5. From infectious disease point of view, to finish 5 days of antibiotics and switch to oral Ceftin and Flagyl. MD DARIO Hernandez/BRIT /[id number]
[2019-07-27] VITALS (8 sets, daily range): BP systolic 149–228; BP diastolic 75–114
[2019-07-27] MEDS: HYDRALAZINE HCL 20 MG/ML VIAL IV PRN ×2 (01:55→06:05)
[2019-07-27 05:55] LABS: BASOPHILS # (AUTO) 0.1 (0.0-0.1); BASOPHILS % 1.3 % (0.0-1.0); EOSINOPHILS # (AUTO) 0.2 (0.0-0.4); EOSINOPHILS % 4.7 % (0.0-6.0); HEMATOCRIT 31.6 % (38.2-49.6); LYMPHOCYTES # (AUTO) 1.1 (1.0-3.2); LYMPHOCYTES % 28.5 % (18.0-39.1); MEAN CORPUSCULAR HEMOGLOBIN 28.3 pg (28-32); MEAN CORPUSCULAR HGB CONC 31.6 g/dL (31-35); MEAN CORPUSCULAR VOLUME 89.5 fL (81-99); MONOCYTES # (AUTO) 0.4 (0.2-0.8); MONOCYTES % 11.2 % (4.4-11.3); NEUTROPHILS # (AUTO) 2.1 (2.1-6.9); PLATELET COUNT 208 x10e3/uL (140-360); RED BLOOD COUNT 3.53 x10e6/uL (4.3-5.7); RED CELL DISTRIBUTION WIDTH 17.2 % (11.7-14.4)
[2019-07-27 06:16] LABS: ALBUMIN 2.1 g/dL (3.5-5.0); ALBUMIN/GLOBULIN RATIO 0.5 (0.8-2.0); ANION GAP 11.8 mmol/L (8-16); CALCIUM 8.6 mg/dL (8.4-10.2); CREATININE, SERUM 3.85 mg/dL (0.72-1.25); POTASSIUM 3.8 mmol/L (3.5-5.1)
--- NOTE | 2019-07-27 08:30 | NUR ---
Manual BP check 220/90. Dr. Mitchell notified. Will give AM scheduled BP meds and continue to monitor.
[2019-07-27] MEDS: CLONIDINE HCL 0.1 MG TAB PO SCH ×3 (08:37→21:00)
[2019-07-27] MEDS: LOSARTAN POTASSIUM 100 MG TAB PO SCH (08:37)
[2019-07-27] MEDS: NIFEDIPINE CR 30 MG TAB PO SCH ×2 (08:37→17:37)
--- NOTE | 2019-07-27 09:28 | Diagnostic Imaging Report ---
EXAMINATION: CHEST SINGLE (PORTABLE) INDICATION: Pleural effusion COMPARISON: Numerous prior chest radiographs, most recently 07/24/2019 FINDINGS: LINES/TUBES:EKG leads overlie the chest. LUNGS: Patchy bibasilar opacities right greater than left. Right apical opacity. Bilateral pulmonary venous congestion. PLEURA: Bilateral pleural effusions.No pneumothorax. MEDIASTINUM:The cardiomediastinal silhouette appears unchanged in size and shape. BONES/SOFT TISSUES:No acute osseous injury. ABDOMEN:No free air under the diaphragm. IMPRESSION: No interval change. Bilateral pulmonary venous congestion, bibasilar patchy density and bilateral pleural effusions. Signed by: Dr. Lui Vidal M.D. on 07/27/2019 9:23 AM
--- NOTE | 2019-07-27 10:35 | NUR ---
Manual BP recheck 220/90. Dr. Mitchell is here making rounds, he was notified of repeat bp check and BNP result from this am. New orders were received. renal paged as well. Waiting building components designer back.
[2019-07-27] MEDS: METOPROLOL SUCCINATE 25 MG TAB XL PO SCH (10:54)
[2019-07-27] MEDS ORDERED: CLONIDINE HCL 0.1 MG TAB PO ONE (11:30)
--- NOTE | 2019-07-27 11:40 | Progress Note ---
DATE: 07/27/2019 CHIEF COMPLAINT/HISTORY OF PRESENT ILLNESS: This is a 58-year-old man, whose primary treating diagnosis is bilateral pneumonia. He also has end-stage renal disease. Furthermore, he has been diagnosed with acute on chronic systolic/diastolic congestive heart failure. Blood work today revealed white blood cell count of 3800 with 54% segmenters. Hemoglobin is 10 g/dL. The patient's BUN and creatinine today are 35 and 3.85 respectively. The patient's B-type natriuretic peptide level is 9563. The patient had a chest x-ray done today that revealed bilateral pulmonary venous congestion as well as bibasilar patchy densities and bilateral pleural effusions. The patient denies any shortness of breath. REVIEW OF SYSTEMS: As per HPI. PHYSICAL EXAMINATION: GENERAL: He is awake, alert and fully oriented. He is in no distress. VITAL SIGNS: Blood pressure 220/90, heart rate 88, respiratory rate is 18, temperature is 96.3, and oxygen saturation 99% room air. Height 5 feet 4 inches, weight 100 pounds, BMI 17. INTEGUMENT: Skin is warm and dry. The patient has no skin breakdown or ulcerations. The patient has obvious pallor as well as a dusky hue. No jaundice or diaphoresis appreciated. HEENT: Anicteric sclerae with moist mucous membranes. NECK: Supple. CARDIOVASCULAR: Distant heart sounds. Regular rate and rhythm with an S3 gallop. LUNGS: Diminished breath sounds at the bases. ABDOMEN: Benign. EXTREMITIES: No edema or deformity, but he has obvious muscle wasting in his extremities. NEUROLOGIC: Intact. ]DIAGNOSES: 1. Acute on chronic systolic/diastolic congestive heart failure. 2. Hypertensive urgency. 3. Bilateral pneumonia. 4. End-stage renal disease. 5. Underweight, BMI 17. 6. Anemia secondary to chronic kidney disease/chronic disease. 7. Severe protein calorie malnutrition. PLAN: 1. We will increase losartan from 50 mg to 100 mg daily. 2. Add metoprolol succinate 25 mg daily to lower his blood pressure and treat his congestive heart failure. 3. Continue intravenous antibiotics for his pneumonia. 4. The patient may benefit from next hemodialysis session today. 5. We will continue nifedipine for blood pressure control. I spent 30 minutes in the care of this patient. MD CHRISTIANO Fernández/HAIL /[id number] GILDA
--- NOTE | 2019-07-27 15:07 | NUR ---
Dr. Urrutia notified of BP 220/105 after patient receiving several blood pressure medications. New orders received.
[2019-07-27] MEDS ORDERED: FUROSEMIDE INJ 10 MG/ML 4 ML VIAL IV ONE (15:15)
[2019-07-27] MEDS ORDERED: MINOXIDIL 2.5 MG TAB PO ONE (15:15)
[2019-07-27] MEDS: CEFEPIME 1GM/NS 0.9% 50 ML 50 ML IV SCH (17:37)
--- NOTE | 2019-07-27 19:20 | NUR ---
BS nursing shift report with morning nurse. Pt alert to name, lying in bed HOB 30 degrees. Denies pain at this time. Call light within reach. Bed low and locked.
[2019-07-28] VITALS (8 sets, daily range): BP systolic 142–222; BP diastolic 67–99
[2019-07-28] MEDS: HYDRALAZINE HCL 20 MG/ML VIAL IV PRN ×2 (05:06→16:54)
[2019-07-28 05:40] LABS: BASOPHILS % 1.1 % (0.0-1.0); EOSINOPHILS # (AUTO) 0.2 (0.0-0.4); EOSINOPHILS % 5.9 % (0.0-6.0); HEMATOCRIT 31.7 % (38.2-49.6); HEMOGLOBIN 10.1 g/dL (14.0-18.0); LYMPHOCYTES % 27.7 % (18.0-39.1); MEAN CORPUSCULAR HEMOGLOBIN 28.4 pg (28-32); MEAN CORPUSCULAR HGB CONC 31.9 g/dL (31-35); MONOCYTES # (AUTO) 0.5 (0.2-0.8); MONOCYTES % 12.6 % (4.4-11.3); NEUTROPHILS # (AUTO) 1.9 (2.1-6.9); NEUTROPHILS % 52.2 % (38.7-80.0); PLATELET COUNT 208 x10e3/uL (140-360); RED BLOOD COUNT 3.56 x10e6/uL (4.3-5.7); RED CELL DISTRIBUTION WIDTH 16.2 % (11.7-14.4)
[2019-07-28 06:05] LABS: ANION GAP 12.1 mmol/L (8-16); CALCIUM 8.4 mg/dL (8.4-10.2); CREATININE, SERUM 4.87 mg/dL (0.72-1.25); POTASSIUM 4.1 mmol/L (3.5-5.1)
--- NOTE | 2019-07-28 07:00 | NUR ---
BEDSIDE SHIFT REPORT RECEIVED FROM AIRPORT CLERK RN. PT DENIES NEEDS AT THIS TIME.
--- NOTE | 2019-07-28 07:00 | NUR ---
BEDSIDE SHIFT REPORT RECEIVED FROM TOBACCO CUTTER RN. PT DENIES NEEDS AT THIS TIME.
--- NOTE | 2019-07-28 07:08 | NUR ---
Nursing report given to morning nurse. Pt lying in bed, no acute distress noted.
[2019-07-28] MEDS: NIFEDIPINE CR 30 MG TAB PO SCH ×2 (09:00→16:54)
[2019-07-28] MEDS: CLONIDINE HCL 0.1 MG TAB PO SCH ×3 (09:00→20:51)
[2019-07-28] MEDS: LOSARTAN POTASSIUM 100 MG TAB PO SCH (09:00)
[2019-07-28] MEDS: METOPROLOL SUCCINATE 25 MG TAB XL PO SCH (09:00)
--- NOTE | 2019-07-28 12:58 | NUR ---
[id number] late ent 07/27/2019
--- NOTE | 2019-07-28 13:30 | Progress Note ---
DATE: 07/27/2019 SUBJECTIVE: Mr. Hull was seen, examined on July 26. He is doing well. REVIEW OF SYSTEMS: There is nothing new. This is a 58-year-old male, who [facility] with fever. He was found to have aspiration pneumonia. The patient has a history of end-stage renal disease, on hemodialysis, congestive heart failure. His review of systems otherwise unremarkable. PHYSICAL EXAMINATION: GENERAL: He is currently alert. VITAL STABLE: Currently afebrile. HEENT: Not icteric. NECK: Supple. CHEST: Few rhonchi, bilateral coarse. ABDOMEN: Soft. Bowel sounds present. No tenderness. EXTREMITIES: No edema. SKIN: No rash. IMPRESSION: 1. Aspiration pneumonia. 2. Finish five days of antibiotic. 3. Fever, resolved. 4. End-stage renal disease. 5. We will follow with you. MD DARIO Hernandez/BRIT /[id number]
--- NOTE | 2019-07-28 14:25 | NUR ---
PER REQUEST FAXED CLINICALS TO [facility] TO RETURN TO FACILITY WHEN READY FOR DISCHARGE. PUT COVID ASSESSMENT ON FORM FOR MD SIGNATURE. WILL FAX WHEN GET IT COMPLETED.
--- NOTE | 2019-07-28 14:28 | NUR ---
COMPLETED RTF AND PUT WITH PACKET
--- NOTE | 2019-07-28 15:31 | Diagnostic Imaging Report ---
EXAMINATION: CHEST XRAY POST PROCEDURE INDICATION: Post procedure COMPARISON: Chest radiograph 07/06/2019 FINDINGS: LINES/TUBES:None LUNGS:The left lung is well-inflated. The right lung is moderately inflated. Patchy right greater than left bibasilar opacities. PLEURA:Small left pleural effusion. Moderate circumferential right pleural effusion. No pneumothorax status post left thoracentesis. MEDIASTINUM:The cardiomediastinal silhouette appears unchanged in size and shape. BONES/SOFT TISSUES:No acute osseous injury. ABDOMEN:No free air under the diaphragm. IMPRESSION: No pneumothorax status post left thoracentesis. Small residual left pleural effusion. Moderate circumferential right pleural effusion. Right greater than left bibasilar opacities, most likely subsegmental atelectasis. Signed by: Chandrakant Leija MD on 07/28/2019 3:27 PM
[2019-07-28 16:09] LABS: BODY FLUID COLOR YELLOW
[2019-07-28 16:10] LABS: BODY FLUID APPEARANCE SL.CLOUDY; BODY FLUID TYPE PLEURAL
--- NOTE | 2019-07-28 16:20 | NUR ---
OBTAINED SIGNATURES FROM DR VAIL ON COVID ASSESSMENT FORM AND FAXED TO [facility].
--- NOTE | 2019-07-28 16:31 | Diagnostic Imaging Report ---
PROCEDURE: Ultrasound-guided thoracentesis Procedural Personnel Attending physician(s): Chandrakant Leija MD Fellow physician(s): None Resident physician(s): None Advanced practice provider(s): None Pre-procedure diagnosis: Pleural effusion Post-procedure diagnosis: Same Indication: Pleural effusion with compromised respiration Additional clinical history: None Complications: No immediate complications. IMPRESSION: Ultrasound-guided thoracentesis with drainage of 1200 mL of warren fluid. Plan: Resume care by clinical team. PROCEDURE SUMMARY: - Limited thoracic ultrasound - Ultrasound-guided thoracentesis - Additional procedure(s): None PROCEDURE DETAILS: Pre-procedure Consent: Informed consent for the procedure including risks, benefits and alternatives was obtained and time-out was performed prior to the procedure. Preparation: The site was prepared and draped using maximal sterile barrier technique including cutaneous antisepsis. Anesthesia/sedation Level of anesthesia/sedation: No sedation Limited thoracic ultrasound Limited thoracic ultrasound was performed using a curved transducer. A safe window for thoracentesis was identified. Left hemithorax findings: Large pleural effusion Right hemithorax findings: Not investigated. Thoracentesis Local anesthesia was administered. The pleural space was accessed under real-time ultrasound guidance and fluid return confirmed position. The fluid was drained. The catheter was removed, and a sterile bandage was applied. Catheter placed: 5F Diamondeh Post-drainage hemithorax findings: Trace effusion. Additional Details Additional description of procedure: None Equipment details: None Specimens removed: Pleural fluid Estimated blood loss (mL): Less than 10 Standardized report: SIR_Thoracentesis_v3 Attestation Signer name: Chandrakant Leija MD I attest that I was present for the entire procedure. I reviewed the stored images and agree with the report as written. Signed by: Chandrakant Leija MD on 07/28/2019 4:28 PM
[2019-07-28 16:58] LABS: RBC,BODY FLUID 8 cells/uL; WBC,BODY FLUID 45 cells/uL
[2019-07-28] MEDS ORDERED: CEFEPIME 1GM/NS 0.9% 50 ML 50 ML IV SCH (17:00)
[2019-07-28] MEDS ORDERED: VANCOMYCIN 1GM/NS 250 ML 250 ML IV SCH (18:00)
--- NOTE | 2019-07-28 19:00 | NUR ---
BEDSIDE REPORT RECEIVED FROM DAY RN. PT IS ALERT AND ORIENTED X3.22 G SL IN RT AC. LEFT AV FISTULA GOOD BRUIT AND THRILL PRESENT. PT RESTING IN SEMI- FOWLERS POSITION WATCHING TV AND USING HIS PHONE. RESPIRATIONS ARE EVEN AND UNLABORED. CALL LIGHT WITHIN REACH. BED IN LOW POSITION. PT TURNED. PT HAVING SNACKS FAMILY BROUGHT HIM FROM HOME. DENIES PAIN. WILL MONITOR B/P.
[2019-07-28 22:29] LABS: LYMPHOCYTES,BODY FLUID 72 %; MONO/MACROPHG,BODY FLUID 18 %; NEUTROPHILS,BODY FLUID 10 %
--- NOTE | 2019-07-28 22:32 | NUR ---
CATAPRESS GIVEN SCHEDULED. B/P REMAINS ELEVATED- 200/100. HYDRALAZINE GIVEN B/P DECREASE TO 190/90.WILL CONTINUE TO MONITOR.
[2019-07-29 01:34] VITALS: BP_SYST 148
--- NOTE | 2019-07-29 07:00 | NUR ---
BEDSIDE SHIFT REPORT RECEIVED FROM AFTER SCHOOL COORDINATOR RN. PT DENIES NEEDS AT THIS TIME.
[2019-07-29 07:18] VITALS: BP 167/72
[2019-07-29 08:02] VITALS: BP 168/79
[2019-07-29] MEDS: CLONIDINE HCL 0.1 MG TAB PO SCH (09:31)
[2019-07-29] MEDS: LOSARTAN POTASSIUM 100 MG TAB PO SCH (09:31)
[2019-07-29] MEDS: METOPROLOL SUCCINATE 25 MG TAB XL PO SCH (09:32)
[2019-07-29] MEDS: NIFEDIPINE CR 30 MG TAB PO SCH (09:32)
[2019-07-29 09:35] VITALS: BP 168/79
--- NOTE | 2019-07-29 10:34 | NUR ---
SNF FACILITY DISCHARGE INFORMATION PATIENT HAS BEEN ACCEPTED TO: [facility] NAME:[facility] ADDRESS:[id number] [facility] ACCEPTING STATISTICAL REPORTING ANALYST: ROGERS MYERS MD:GENNA ROOM:[id number] NURSE CALL REPORT TO: [phone] IMM SIGNED AND OBTAINED (if applicable): IMM THE FOLLOWING DOCUMENTS MUST ACCOMPANY PATIENT FOR TRANSFER: COPIED CHART: PACKET
--- NOTE | 2019-07-29 10:38 | NUR ---
GAVE NURSE IMM TO GET SIGNATURE AND LEAVE COPY IN ROOM.
--- NOTE | 2019-07-29 11:38 | NUR ---
REPORT CALLED TO MEDICAL GONZALO MONTES RN
[2019-07-29 12:25] VITALS: BP 195/85
--- NOTE | 2019-09-09 00:01 | Discharge Summary ---
CHIEF COMPLAINT: Persistent cough with fever. FINAL DIAGNOSES: 1. End-stage renal disease. 2. Aspiration pneumonia. 3. Pleural effusion. 4. Congestive heart failure. 5. Anemia. DISPOSITION: SNF placement [facility]. HOSPITAL COURSE: A 58-year-old male with known history of end-stage renal disease, diabetes type 2, hypertension, chronic systolic congestive heart failure. The patient was brought to the ER with a 1-day history of increased cough and having temp of a 100.8. No other complaints. We evaluated and reviewed in the emergency room and following review of data, admission was made regarding end-stage renal disease, diabetes type 2, short of breath, cough, fever, peripheral vascular disease, acute over chronic congestive heart failure. With admission, we will be addressing dialysis issues. snf medications will continue. Requesting Infectious Disease follow up and Nephrology follow up. With admission to the facility, Pulmonary was asked to follow. Due to issues of shortness of breath, the patient was being seen by Dr. Fraire. Following his evaluation, impression was made of chronic right-sided pleural effusion, status post VATS. The patient has trapped lung and unlikely the appearance will change. Continue dialysis per Nephrology. At this point, there is no need for thoracentesis. Seen by Dr. Mitchell in the followup regarding dialysis management. His impression of end-stage renal disease, hypophosphatemia, minimal hypocalcemia. Albumin is also only 2.1. Improvement is noted to the hypokalemia. End-stage renal disease with fluid overload. The patient will begin dialysis program, maintaining his current schedule for peak salt and water restriction. Also being seen by Infectious Disease, Dr. Monroy with issues of fever and chills, findings of pneumonia. His impression was concerns for pneumonia aspiration/healthcare associated with acute on chronic congestive heart failure. Recommend cefepime and vancomycin, swallow evaluation, and adjust antibiotics for kidney function. Also being seen by Dr. Pruitt in relation to coronavirus exposure possibility. With Dr. Pruitt's review, his impression was abnormal chest x-ray consistent with fluid overload, bilateral pleural effusions, history of environmental exposures from nursing facility, in the dialysis community where there is presence of COVID-19. History of end-stage renal disease on dialysis, acute on chronic diastolic heart failure, ejection fraction up now. History of hypertension, debility, weakness, consider thoracentesis as needed. We will run a coronavirus study, wait for results. Current influenza A and B studies returned, they were negative. In the emergency room, the patient was placed on the Med-Surg floor, was on a renal diet, was set up for his dialysis procedure, was started on vancomycin and cefepime as well as p.o. vancomycin. His medications from the SNF facility were continuing. He was being reviewed by consultants as the stay progressed. He was remaining afebrile. Further vital signs are being watched. Laboratory studies were being made accordingly. The patient's progress was stable. No distress. Cefepime is now being added to his antibiotic protocol along with Flagyl. This will be started once the IV antibiotics have completed the course. The patient was being directed to be transferred back to the [facility]. The patient recovered well and was able to be transferred back in stable condition. IMAGING: Initial chest x-ray shows findings suggestive of congestive heart failure, bibasilar atelectasis and effusions, right greater than left. Superimposed pneumonia cannot be excluded. Continued chest x-rays were monitored. The followup study shows waxing and waning right greater than left pleural effusion, not significant. Right greater than left bibasilar patchy opacity or likely subsegmental atelectasis than superimposed aspiration or pneumonia. With concern for the pleural effusions, chest x-rays were continued. Findings were still revealing bilateral pleural effusion, underwent a left thoracentesis. Post chest x-ray was showing no pneumothorax. Small residual left pleural effusion, moderate circumferential right pleural effusion. Laboratory studies were showing culture, which revealed negative blood, negative throat, negative fluid from the thoracentesis. LABORATORY STUDIES: CBC showing normal white blood cell count, H and H 9.7 and 29.8 with a white cell count trended down to a final study of 3700, final H and H was 10.1 and 31.7, platelets remained stable. SEROLOGY STUDIES: Showing negative influenza A and B. Negative coronavirus. Urinalysis shows 11-20 rbc's by high-power field, 11-20 wbc's by high-power field, moderate amount of bacteria. CHEMISTRY STUDIES: Initial panel reveals a potassium of 2.7, BUN 27, creatinine 2.79, glucose 100. Followup potassiums is at 3.7, glucose levels were high at 256. BNP was elevated at 9563.2. Final electrolytes were normal. Final BUN 44, creatinine 4.87. Final glucose 191. The patient was transferred back to the [facility] for continuation of care. I will be monitoring and managing the patient's condition at facility to be maintained at current diet. He will continue on p.o. antibiotics per Dr. Monroy's order. I will be evaluating the patient daily. Staff will be contacting me in my office as needed. Dictated by AIDE Lance Colt Lockhart MD CC/MODL /[id number]
== END 2019-07-29 14:01 | DRG 177 ==
LOC: ER 08:27 → ERHOLD 10:35 → MED/SURG2 17:57 → OBSVTOIN 07-26 11:58
PROC: 5A1D70Z Performance of Urinary Filtration, Intermittent, Less than 6 Hours Per Day (ICD-10-PCS; principal; 2019-07-25)
PROC: 0W9B3ZZ Drainage of Left Pleural Cavity, Percutaneous Approach (ICD-10-PCS; 2019-07-28)
DX: J69.0 Pneumonitis due to inhalation of food and vomit (principal); N18.6 End stage renal disease; E43 Unspecified severe protein-calorie malnutrition; I50.43 Acute on chronic combined systolic (congestive) and diastolic (congestive) heart failure; Z68.1 Body mass index [BMI] 19.9 or less, adult; J90 Pleural effusion, not elsewhere classified; I13.2 Hypertensive heart and chronic kidney disease with heart failure and with stage 5 chronic kidney disease, or end stage renal disease; Z99.2 Dependence on renal dialysis; Z20.828 Contact with and (suspected) exposure to other viral communicable diseases; D63.8 Anemia in other chronic diseases classified elsewhere; D63.1 Anemia in chronic kidney disease
CPT/HCPCS: 32555; 36415; 71045; 80048; 80053; 80202; 81001; 82948; 83518; 83735; 83880; 84100; 85025; 87040; 87070; 87205; 87400; 87635; 88305; 89051; 90962; 93306; 99251; 99285; G0378; J0360; J0692; J1940; J3370; J7030; J7050

== ENCOUNTER 2019-08-12 21:33 | Inpatient (IN) | payer MEDICARE, OTHER ==
[~2019-08-12] VITALS: Ht 160 cm; Wt 53.8 kg
[2019-08-12] MEDS ORDERED: HYDRALAZINE HCL 20 MG/ML VIAL IV STA (21:48)
[2019-08-12 21:51] LABS: BASOPHILS # (AUTO) 0.1 (0.0-0.1); BASOPHILS % 0.7 % (0.0-1.0); EOSINOPHILS # (AUTO) 0.1 (0.0-0.4); EOSINOPHILS % 1.8 % (0.0-6.0); HEMATOCRIT 32.4 % (38.2-49.6); HEMOGLOBIN 10.6 g/dL (14.0-18.0); LYMPHOCYTES # (AUTO) 1.4 (1.0-3.2); MEAN CORPUSCULAR HEMOGLOBIN 29.6 pg (28-32); MEAN CORPUSCULAR HGB CONC 32.7 g/dL (31-35); MEAN CORPUSCULAR VOLUME 90.5 fL (81-99); MONOCYTES # (AUTO) 0.6 (0.2-0.8); MONOCYTES % 7.8 % (4.4-11.3); NEUTROPHILS % 70.4 % (38.7-80.0); PLATELET COUNT 246 x10e3/uL (140-360); RED BLOOD COUNT 3.58 x10e6/uL (4.3-5.7)
[2019-08-12 22:10] LABS: ALBUMIN 2.4 g/dL (3.5-5.0); ALBUMIN/GLOBULIN RATIO 0.5 (0.8-2.0); ANION GAP 17.7 mmol/L (8-16); CALCIUM 8.7 mg/dL (8.4-10.2); CREATININE, SERUM 3.86 mg/dL (0.72-1.25); POTASSIUM 4.7 mmol/L (3.5-5.1)
[2019-08-12 22:16] LABS: CREATINE KINASE MB 2.1 ng/mL (0-5.0)
[2019-08-12] MEDS ORDERED: CLONIDINE HCL 0.2 MG TAB PO ONE (22:45)
--- NOTE | 2019-08-12 23:09 | Diagnostic Imaging Report ---
EXAMINATION: CHEST SINGLE (PORTABLE) INDICATION: Short of breath COMPARISON: Chest x-ray 07/28/2019 FINDINGS: TUBES and LINES: None. LUNGS: Normal lung volumes. Mid/lower lung haziness. Prominence of interstitial lung markings. PLEURA: Similar size and appearance of the air and fluid containing small right loculated pleural effusion. Small left pleural effusion. HEART AND MEDIASTINUM: Cardiac size is moderately enlarged. BONES AND SOFT TISSUES: No acute osseous lesion. Soft tissues are unremarkable. UPPER ABDOMEN: No free air under the diaphragm. IMPRESSION: Moderate cardiomegaly, pulmonary edema, and small bilateral pleural effusions. Similar size and appearance of the air and fluid containing small right loculated pleural effusion. Signed by: Elvis Wood DO on 08/12/2019 11:05 PM
[2019-08-12] MEDS ORDERED: FUROSEMIDE INJ 10 MG/ML 4 ML VIAL IV ONE (23:15)
[2019-08-12] MEDS ORDERED: LIDOCAINE PATCH TOP (23:41)
[2019-08-12] MEDS ORDERED: TYLENOL WITH C1 EACH PO (23:41)
[2019-08-12] MEDS ORDERED: LOSARTAN POTAS100 MG PO (23:41)
[2019-08-12] MEDS ORDERED: CLONIDINE HCL0.1 MG PO (23:41)
[2019-08-12] MEDS ORDERED: PROCARDIA XL30 MG PO (23:43)
[2019-08-12] MEDS ORDERED: MEGESTROL400 MG/10 PO (23:43)
[2019-08-12] MEDS ORDERED: METOPROLOL SUCC50 MG PO (23:43)
[2019-08-12] MEDS ORDERED: ULTRAM 50MG50 MG PO (23:43)
[2019-08-12] MEDS ORDERED: TIZANIDINE HCL4 MG PO (23:43)
[2019-08-12] MEDS ORDERED: NICARDIPINE HCL SOLN 20 MG in SODIUM CHLORIDE 0.9% 250ML 200 ML IV PRN (23:45)
[2019-08-12] MEDS ORDERED: NICARDIPINE 20MG/200ML PREMIX 200 ML ONE (23:55)
[2019-08-13] VITALS (19 sets, daily range): BP systolic 122–206; BP diastolic 47–99
[2019-08-13] MEDS ORDERED: ONDANSETRON HCL INJ 2MG/ML 2ML 2 MG/ML VIAL IV PRN (00:15)
[2019-08-13] MEDS ORDERED: SODIUM CHLORIDE FLUSH 10 ML SYR INJ PRN (00:15)
[2019-08-13] MEDS ORDERED: HYDROCODONE/APAP 7.5MG-325MG 1 EA TAB PO PRN (00:15)
[2019-08-13] MEDS ORDERED: NICARDIPINE 20MG/200ML PREMIX 200 ML IV PRN (00:15)
[2019-08-13] MEDS ORDERED: SODIUM CHLORIDE 0.9% 1000ML 2,000 ML IV PRN (01:30)
[2019-08-13] MEDS ORDERED: SODIUM CHLORIDE 0.9% 1000ML 2,000 ML ONE (04:09)
[2019-08-13] MEDS: INSULIN REGULAR, HUMAN 100 UNIT/1 ML 3ML VIAL SQ SCH ×4 (07:30→21:25)
[2019-08-13 15:00] LABS: CREATINE KINASE MB 2.3 ng/mL (0-5.0)
[2019-08-13] MEDS ORDERED: SODIUM CHLORIDE 0.9% 250ML 500 ML IV PRN (16:15)
[2019-08-13] MEDS ORDERED: ALBUMIN 25% 12.5GM 0.25 GM/ML BTL IV PRN (16:15)
[2019-08-13] MEDS ORDERED: TRAMADOL HCL 50 MG TAB PO PRN (20:15)
[2019-08-13] MEDS ORDERED: ACETAMINOPHEN/CODEINE 300MG - 30MG TAB PO PRN (20:15)
--- NOTE | 2019-08-13 20:35 | Consultation ---
DATE OF CONSULTATION: Critical Care Consultation REASON FOR CONSULT: Shortness of breath and fever. HISTORY OF PRESENT ILLNESS: Mr. Kurtis Borjas is a 58-year-old male well known to me from [facility]. The patient has history of end-stage renal disease and hypertension. He came in from the [facility] with complaints of shortness of breath and low oxygen saturation. It was gradual in onset. He was having fever as well, so they decided to transfer the patient to the emergency room. He reports that he is having some chest discomfort, rdep-ue-[id number] in intensity, not radiating anywhere, also associated with shortness of breath, which is mhyo-lm-bxdmcmbi. It is better now. In the emergency room, the patient received nicardipine infusion because of the high blood pressure and received hemodialysis. Blood pressure is now stable, still on the nicardipine infusion. REVIEW OF SYSTEMS: GENERAL: Denies any fever or chills. HEAD: Denies any head trauma. ENT: Denies any earaches. CVS: Chest discomfort and shortness of breath. RESPIRATORY: Shortness of breath. The rest of the review of systems are negative except as in HPI. PAST MEDICAL HISTORY: In May of 2019, the patient had decortication because of loculated pleural effusion. He had a chest tube for quite some time and then it was removed. The patient improved. Also, history of anemia of chronic disease, end-stage renal disease, protein-calorie malnutrition, and debility. SOCIAL HISTORY: He does not smoke. Does not drink. PHYSICAL EXAMINATION: VITAL SIGNS: Temperature 98, pulse of 74, blood pressure 135/76, respiratory rate of 18, and O2 saturation on 3 L nasal cannula 99%. HEENT: Head is atraumatic and normocephalic. NECK: Supple. CHEST: No wheezing. No crackles. HEART: S1 and S2 audible. ABDOMEN: Soft. EXTREMITIES: No pedal edema. NEUROLOGIC: Awake and alert. LABORATORY DATA: White count of 7000, hemoglobin 10.6, and platelets 246. Chemistry is reviewed. Chest x-ray appears to be unchanged. ASSESSMENT/PLAN: Mr. Kurtis Borjas is a 58-year-old male came in with hypertensive emergency, has end-stage renal disease, history of loculated pleural effusion. PLAN: Hemodialysis per Nephrology recommendation. Wean the nicardipine drip off. The patient can be transferred out of ICU. Can be transferred to [facility] once the patient's blood pressure is stable. Thank you for this consult. Critical care time spent 50 minutes. MD SHAMAR Carrillo/BRIT /[id number]
[2019-08-13] MEDS ORDERED: CLONIDINE HCL 0.1 MG TAB PO SCH (20:40)
[2019-08-13] MEDS: TIZANIDINE HCL 4 MG TAB PO SCH (21:29)
[2019-08-13] MEDS ORDERED: METOPROLOL TARTRATE INJ 1 MG/ML VIAL ONE (22:28)
[2019-08-13] MEDS ORDERED: METOPROLOL SUCCINATE 50 MG TAB XL PO ONE (22:30)
[2019-08-13] MEDS: NIFEDIPINE CR 30 MG TAB PO SCH (22:32)
[2019-08-13] MEDS ORDERED: LOSARTAN POTASSIUM 100 MG TAB PO ONE (23:45)
[2019-08-14] VITALS (30 sets, daily range): BP systolic 129–208; BP diastolic 60–146
[2019-08-14] MEDS: DEXTROSE 50% SYRINGE 50 ML IV PRN (00:03)
[2019-08-14] MEDS ORDERED: DILTIAZEM HCL 100 ML IV SCH (00:15)
[2019-08-14] MEDS: NICARDIPINE 20MG/200ML PREMIX 200 ML IV SCH ×2 (00:54→10:11)
--- NOTE | 2019-08-14 00:58 | Diagnostic Imaging Report ---
CT BRAIN WO HISTORY: Altered mental status COMPARISON: None. Technique: Noncontrast axial scans were obtained from skull base to the vertex. Coronal and sagittal reconstructions obtained from the axial data. One or more of the following dose reduction techniques were used: Automated exposure control, adjustment of the mA and/or kV according to patient size, and/or utilization of iterative reconstruction technique. Beam hardening artifacts obscure some details. DISCUSSION: Scalp/Skull: Unremarkable. Brain sulci: Mildly prominent. Ventricles: Compensatory dilatation. Extra-axial spaces: No masses or fluid collections. Carotid and vertebral artery calcifications are present. Parenchyma: Mild to moderate bilateral deep white matter hypodensity is likely chronic microvascular ischemic change. Old lacunar infarcts are seen in the medial left thalamus and left llanos radiata. Small focal hypodensities in the right striatocapsular region and medial right thalamus may be due to age indeterminate lacunar infarcts. Otherwise, no masses, hemorrhage, or large vascular territory acute infarct. Dural sinuses: No abnormal densities. Sellar/Suprasellar region: Intact. Skull base: Intact. Incidental findings: Trace left mastoid effusion. Bilateral ocular lens replacement. Minimal bilateral frontonasal recess mucosal thickening. IMPRESSION: 1. Small focal hypodensities in the right striatocapsular region and medial right thalamus may be due to age indeterminate lacunar infarcts. 2. Otherwise, no acute intracranial abnormalities. 3. Mild to moderate supratentorial chronic microvascular ischemic change. 4. Old left thalamic and left llanos radiata lacunar infarcts. 5. Mild generalized cerebral volume loss. Signed by: Dr. Robert Leblanc M.D. on 08/14/2019 12:55 AM
[2019-08-14 05:54] LABS: BASOPHILS # (AUTO) 0.1 (0.0-0.1); EOSINOPHILS # (AUTO) 0.1 (0.0-0.4); EOSINOPHILS % 1.9 % (0.0-6.0); HEMATOCRIT 33.4 % (38.2-49.6); HEMOGLOBIN 10.4 g/dL (14.0-18.0); LYMPHOCYTES % 16.3 % (18.0-39.1); MEAN CORPUSCULAR HEMOGLOBIN 28.6 pg (28-32); MEAN CORPUSCULAR HGB CONC 31.1 g/dL (31-35); MEAN CORPUSCULAR VOLUME 91.8 fL (81-99); MONOCYTES # (AUTO) 0.6 (0.2-0.8); MONOCYTES % 9.4 % (4.4-11.3); NEUTROPHILS # (AUTO) 4.4 (2.1-6.9); NEUTROPHILS % 71.1 % (38.7-80.0); PLATELET COUNT 253 x10e3/uL (140-360); RED BLOOD COUNT 3.64 x10e6/uL (4.3-5.7); RED CELL DISTRIBUTION WIDTH 14.7 % (11.7-14.4)
[2019-08-14 05:58] LABS: ALBUMIN 2.5 g/dL (3.5-5.0); ALBUMIN/GLOBULIN RATIO 0.5 (0.8-2.0); ANION GAP 15.6 mmol/L (8-16); CALCIUM 9.6 mg/dL (8.4-10.2); CREATININE, SERUM 3.35 mg/dL (0.72-1.25); POTASSIUM 4.6 mmol/L (3.5-5.1)
[2019-08-14] MEDS: INSULIN REGULAR, HUMAN 100 UNIT/1 ML 3ML VIAL SQ SCH ×4 (07:30→21:00)
[2019-08-14] MEDS: MEGACE 400MG/ 10ML CUP PO SCH (09:42)
[2019-08-14] MEDS: LIDOCAINE 4% PATCH TP SCH (09:42)
[2019-08-14] MEDS: CLONIDINE HCL 0.1 MG TAB PO SCH ×3 (09:42→21:30)
[2019-08-14] MEDS: LOSARTAN POTASSIUM 100 MG TAB PO SCH (09:47)
[2019-08-14] MEDS: NIFEDIPINE CR 30 MG TAB PO SCH ×2 (09:47→21:30)
[2019-08-14] MEDS: METOPROLOL SUCCINATE 50 MG TAB XL PO SCH (10:11)
[2019-08-14] MEDS: TIZANIDINE HCL 4 MG TAB PO SCH (21:30)
[2019-08-15] VITALS (21 sets, daily range): BP systolic 124–186; BP diastolic 59–84
[2019-08-15 05:53] LABS: ANION GAP 15.3 mmol/L (8-16); CALCIUM 9.1 mg/dL (8.4-10.2); CREATININE, SERUM 2.98 mg/dL (0.72-1.25); POTASSIUM 4.3 mmol/L (3.5-5.1)
[2019-08-15] MEDS: INSULIN REGULAR, HUMAN 100 UNIT/1 ML 3ML VIAL SQ SCH ×4 (07:30→21:00)
[2019-08-15] MEDS: LOSARTAN POTASSIUM 100 MG TAB PO SCH (08:22)
[2019-08-15] MEDS: CLONIDINE HCL 0.1 MG TAB PO SCH ×3 (08:22→21:44)
[2019-08-15] MEDS: NIFEDIPINE CR 30 MG TAB PO SCH ×2 (08:22→17:39)
[2019-08-15] MEDS: MEGACE 400MG/ 10ML CUP PO SCH (08:22)
[2019-08-15] MEDS: METOPROLOL SUCCINATE 50 MG TAB XL PO SCH (08:23)
[2019-08-15] MEDS: LIDOCAINE 4% PATCH TP SCH (08:23)
[2019-08-15] MEDS: TIZANIDINE HCL 4 MG TAB PO SCH (21:44)
[2019-08-15] MEDS ORDERED: INSULIN REGULAR, HUMAN 100 UNIT/1 ML 3ML VIAL SQ ONE (22:15)
[2019-08-16] VITALS (17 sets, daily range): BP systolic 139–212; BP diastolic 70–100
[2019-08-16] MEDS: DEXTROSE 50% SYRINGE 50 ML IV PRN (04:45)
[2019-08-16 05:24] LABS: BASOPHILS # (AUTO) 0.1 (0.0-0.1); BASOPHILS % 1.2 % (0.0-1.0); EOSINOPHILS # (AUTO) 0.2 (0.0-0.4); EOSINOPHILS % 3.2 % (0.0-6.0); HEMATOCRIT 30.6 % (38.2-49.6); HEMOGLOBIN 9.8 g/dL (14.0-18.0); LYMPHOCYTES % 16.2 % (18.0-39.1); MEAN CORPUSCULAR HEMOGLOBIN 29.2 pg (28-32); MEAN CORPUSCULAR VOLUME 91.1 fL (81-99); MONOCYTES # (AUTO) 0.7 (0.2-0.8); MONOCYTES % 12.1 % (4.4-11.3); PLATELET COUNT 209 x10e3/uL (140-360); RED BLOOD COUNT 3.36 x10e6/uL (4.3-5.7); RED CELL DISTRIBUTION WIDTH 14.4 % (11.7-14.4)
[2019-08-16 05:51] LABS: ALBUMIN 2.6 g/dL (3.5-5.0); ALBUMIN/GLOBULIN RATIO 0.5 (0.8-2.0); CALCIUM 9.5 mg/dL (8.4-10.2); CREATININE, SERUM 2.95 mg/dL (0.72-1.25); MAGNESIUM 2.1 MG/DL (1.3-2.1); PHOSPHORUS 3.6 MG/DL (2.3-4.7)
[2019-08-16] MEDS ORDERED: HYDRALAZINE HCL 20 MG/ML VIAL IV STA ×2 (06:26→08:00)
[2019-08-16] MEDS ORDERED: FUROSEMIDE INJ 10 MG/ML 4 ML VIAL IV ONE (06:45)
[2019-08-16] MEDS: INSULIN REGULAR, HUMAN 100 UNIT/1 ML 3ML VIAL SQ SCH ×3 (07:30→16:30)
[2019-08-16] MEDS ORDERED: DEXTROSE 50% SYRINGE 50 ML IV ONE (07:45)
--- NOTE | 2019-08-16 07:48 | Diagnostic Imaging Report ---
EXAMINATION: CHEST SINGLE (PORTABLE) INDICATION: Rapid response, altered mental status. COMPARISON: Chest radiograph 07/25/2019. FINDINGS: TUBES and LINES: Interval placement of left arm PICC which terminates at the cavoatrial junction. LUNGS: Normal lung volumes. There is perihilar fullness and indistinctness of the pulmonary vasculature, decreased from the prior study. There are hazy/patchy opacities in the bilateral mid and lower lungs, left greater than right; decreased on the right. PLEURA: Moderate left and small right pleural effusions. Loculated component at the right lung apex. No pneumothorax. HEART AND MEDIASTINUM: Cardiac size is moderately enlarged. BONES AND SOFT TISSUES: No acute osseous lesion. Soft tissues are unremarkable. UPPER ABDOMEN: No free air under the diaphragm. IMPRESSION: Moderate cardiomegaly and decreased pulmonary edema. Moderate left pleural effusion. Small loculated right pleural effusion. Lower lung zone opacities, likely atelectasis. Superimposed infection is possible appropriate clinical setting. Signed by: Dr. Amber Mitchell MD on 08/16/2019 7:44 AM
--- NOTE | 2019-08-16 07:57 | Diagnostic Imaging Report ---
Exam: Head CT without contrast History: Change in mental status. Comparison studies: Head CT 08/13/2017 Technique: Axial images were obtained from the skull base to the vertex. Coronal and sagittal images reconstructed from the axial data. Dose modulation, iterative reconstruction, and/or weight based adjustment of the mA/kV was utilized to reduce the radiation dose to as low as reasonably achievable. Radiation dose: Total DLP: 1302 mGy*cm. Estimated effective dose: DLP x 0.015 Intravenous contrast: None Findings: Exam is limited by artifacts related to patient motion. Scalp: No abnormalities. Bones: No fractures, blastic or lytic lesions. Brain sulci: Mildly prominent Ventricles: Mild compensatory dilatation. No hydrocephalus. Extra-axial spaces: No masses, no fluid collection. Parenchyma: A few scattered hypodensities in the supratentorial white matter are nonspecific but are most compatible with chronic microvascular ischemic changes. Chronic lacunar infarcts present in the bilateral thalami,, centered in the left llanos radiata extends to the body of the caudate nucleus and superior margin of the left lentiform nucleus and in near the junction of the right llanos radiata and anterior limb of the right internal capsule. No mass, acute hemorrhage or acute cortical insult. Sellar/suprasellar region: No abnormalities. Craniocervical junction: Patent foramen magnum. No Chiari one malformation. Incidental findings: Bilateral intraocular lens replacements. Atherosclerotic calcifications in the carotid siphons and intradural vertebral arteries. IMPRESSION: Exam limited by artifacts related to patient motion. No gross acute intracranial abnormalities. Chronic findings: 1. Mild generalized parenchymal volume loss. 2. Mild chronic microvascular ischemic changes and chronic lacunar infarcts as described. Signed by: Dr. John Padilla M.D. on 08/16/2019 7:54 AM
[2019-08-16] MEDS ORDERED: LORAZEPAM INJ 2 MG/ML VIAL ONE (08:05)
[2019-08-16] MEDS ORDERED: HYDRALAZINE HCL 20 MG/ML VIAL ONE (08:08)
[2019-08-16] MEDS ORDERED: LORAZEPAM INJ 2 MG/ML VIAL IV NR (08:15)
[2019-08-16] MEDS ORDERED: FUROSEMIDE INJ 10 MG/ML 4 ML VIAL IV NR (08:15)
[2019-08-16 08:17] LABS: BASOPHILS # (AUTO) 0.1 (0.0-0.1); BASOPHILS % 0.8 % (0.0-1.0); EOSINOPHILS # (AUTO) 0.1 (0.0-0.4); EOSINOPHILS % 0.9 % (0.0-6.0); HEMATOCRIT 33.4 % (38.2-49.6); HEMOGLOBIN 10.4 g/dL (14.0-18.0); LYMPHOCYTES % 10.2 % (18.0-39.1); MEAN CORPUSCULAR HEMOGLOBIN 28.7 pg (28-32); MEAN CORPUSCULAR HGB CONC 31.1 g/dL (31-35); MEAN CORPUSCULAR VOLUME 92.3 fL (81-99); MONOCYTES # (AUTO) 0.7 (0.2-0.8); MONOCYTES % 7.1 % (4.4-11.3); NEUTROPHILS # (AUTO) 8.3 (2.1-6.9); NEUTROPHILS % 80.7 % (38.7-80.0); PLATELET COUNT 245 x10e3/uL (140-360); RED BLOOD COUNT 3.62 x10e6/uL (4.3-5.7); RED CELL DISTRIBUTION WIDTH 14.3 % (11.7-14.4)
[2019-08-16] MEDS ORDERED: FUROSEMIDE INJ 10 MG/ML 4 ML VIAL ONE (08:25)
[2019-08-16] MEDS ORDERED: VANCOMYCIN 1GM/NS 250 ML 250 ML IV ONE ×2 (08:30→09:00)
[2019-08-16] MEDS ORDERED: MEROPENEM 500MG/ NS 50ML 50 ML IV SCH ×2 (08:30→10:00)
[2019-08-16 08:37] LABS: ALBUMIN 2.9 g/dL (3.5-5.0); ALBUMIN/GLOBULIN RATIO 0.5 (0.8-2.0); ANION GAP 19.1 mmol/L (8-16); CALCIUM 9.9 mg/dL (8.4-10.2); CREATININE, SERUM 3.13 mg/dL (0.72-1.25); POTASSIUM 5.1 mmol/L (3.5-5.1)
[2019-08-16 08:54] LABS: ABG HCO3 31 mmol/L (22-26); ABG PCO2 48 mmHg (35-45); ABG PH 7.42 (7.35-7.45)
[2019-08-16] MEDS: MEGACE 400MG/ 10ML CUP PO SCH (09:00)
[2019-08-16] MEDS: METOPROLOL SUCCINATE 50 MG TAB XL PO SCH (09:00)
[2019-08-16] MEDS: CLONIDINE HCL 0.1 MG TAB PO SCH ×3 (09:00→21:55)
[2019-08-16] MEDS: NIFEDIPINE CR 30 MG TAB PO SCH ×2 (09:00→17:00)
[2019-08-16] MEDS: LOSARTAN POTASSIUM 100 MG TAB PO SCH (09:00)
--- NOTE | 2019-08-16 09:05 | Progress Note ---
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 The patient apparently was dialyzed yesterday. The patient was transferred out of Intensive Care Unit yesterday, but overnight had altered mentation as well as elevated blood pressure. STAT CT of the head without contrast was unremarkable. The patient underwent a chest film this morning that did reveal moderate cardiomegaly as well as moderate left perfusion and bilateral lower lung zone opacities. Blood work today revealed white blood cell count 10,200 with 80% segmented neutrophils. Yesterday, his white blood cell count was 6200 with 71% segmented neutrophils. The patient's hemoglobin today is 10.4 g/dL. REVIEW OF SYSTEMS: As per HPI. PHYSICAL EXAMINATION: GENERAL: He is lethargic, nonverbal, and does not appear to be in any obvious respiratory distress. VITAL SIGNS: Blood pressure is 188/120, pulse 72, respiratory rate 18, temperature 98.5, and oxygen saturation is 99% on 3 L oxygen. BMI is 21. INTEGUMENT: Skin is warm and dry. No pallor. No jaundice or diaphoresis. HEENT: Anicteric sclerae. Moist mucous membranes. NECK: Supple. No evidence of jugular venous distention. CARDIOVASCULAR: Tachycardic rate. Regular rate and rhythm. The patient has an S3 and S4 gallop. LUNGS: The patient has rhonchi and crackles bilaterally. ABDOMEN: Benign. EXTREMITIES: No edema or deformity. NEUROLOGIC: Intact. DIAGNOSES: 1. Altered mentation likely secondary to metabolic encephalopathy. 2. Bilateral pneumonia, likely gram-negative edgar. 3. Deqmv-yl-zqghipl diastolic heart failure. 4. Hypertensive urgency. 5. End-stage renal disease. PLAN: 1. Transfer to Intensive Care Unit. 2. Blood cultures. 3. Check lactic acid level. 4. Start intravenous antibiotics. 5. Check B-type natriuretic peptide level. 6. I discussed the case with the cash processing specialist. He agreed with transferring to Intensive Care Unit. 7. The patient will likely benefit from repeat hemodialysis today. 8. I spent 35 minutes in the care of this patient. MD CHRISTIANO Fernández/BRIT /[id number] MTDChuck
[2019-08-16] MEDS: HYDRALAZINE HCL 20 MG/ML VIAL IV PRN (09:16)
[2019-08-16] MEDS ORDERED: SODIUM CHLORIDE 0.9% 250ML 250 ML ONE (09:33)
[2019-08-16] MEDS: LIDOCAINE 4% PATCH TP SCH (10:30)
[2019-08-16] MEDS ORDERED: DEXTROSE 10% 1,000 ML IV PRN (13:00)
[2019-08-16] MEDS: TIZANIDINE HCL 4 MG TAB PO SCH (21:00)
[2019-08-17] VITALS (32 sets, daily range): BP systolic 153–212; BP diastolic 53–110
[2019-08-17] MEDS: HYDRALAZINE HCL 20 MG/ML VIAL IV PRN ×4 (01:37→17:09)
[2019-08-17 06:15] LABS: BASOPHILS # (AUTO) 0.1 (0.0-0.1); BASOPHILS % 0.8 % (0.0-1.0); EOSINOPHILS # (AUTO) 0.1 (0.0-0.4); EOSINOPHILS % 1.3 % (0.0-6.0); HEMATOCRIT 28.3 % (38.2-49.6); LYMPHOCYTES # (AUTO) 1.3 (1.0-3.2); LYMPHOCYTES % 13.4 % (18.0-39.1); MEAN CORPUSCULAR HGB CONC 31.8 g/dL (31-35); MEAN CORPUSCULAR VOLUME 91.3 fL (81-99); MONOCYTES # (AUTO) 0.8 (0.2-0.8); MONOCYTES % 8.2 % (4.4-11.3); NEUTROPHILS # (AUTO) 7.3 (2.1-6.9); PLATELET COUNT 227 x10e3/uL (140-360)
[2019-08-17 06:42] LABS: ALBUMIN 2.5 g/dL (3.5-5.0); ALBUMIN/GLOBULIN RATIO 0.6 (0.8-2.0); ANION GAP 16.3 mmol/L (8-16); CALCIUM 9.4 mg/dL (8.4-10.2); CREATININE, SERUM 4.36 mg/dL (0.72-1.25); MAGNESIUM 2.2 MG/DL (1.3-2.1); PHOSPHORUS 5.4 MG/DL (2.3-4.7); POTASSIUM 5.3 mmol/L (3.5-5.1)
[2019-08-17] MEDS: MEROPENEM 500MG/ NS 50ML 50 ML IV SCH (07:00)
[2019-08-17] MEDS: INSULIN REGULAR, HUMAN 100 UNIT/1 ML 3ML VIAL SQ SCH ×3 (07:30→15:36)
[2019-08-17] MEDS ORDERED: SOD POLYSTYRENE SULFONATE SUSP 15 GM/60 ML BTL PO NR (08:15)
[2019-08-17] MEDS ORDERED: SOD POLYSTYRENE SULFONATE SUSP 15 GM/60 ML BTL ONE (08:33)
[2019-08-17] MEDS: MEGACE 400MG/ 10ML CUP PO SCH (08:36)
[2019-08-17] MEDS: NIFEDIPINE CR 30 MG TAB PO SCH ×2 (08:36→16:50)
[2019-08-17] MEDS: CLONIDINE HCL 0.1 MG TAB PO SCH ×3 (08:36→21:40)
[2019-08-17] MEDS: LOSARTAN POTASSIUM 100 MG TAB PO SCH (08:36)
[2019-08-17] MEDS: METOPROLOL SUCCINATE 50 MG TAB XL PO SCH ×2 (08:37→16:50)
[2019-08-17] MEDS: LIDOCAINE 4% PATCH TP SCH (08:37)
--- NOTE | 2019-08-17 08:48 | Diagnostic Imaging Report ---
EXAMINATION: CHEST SINGLE (PORTABLE) INDICATION: CHF. ESRD on dialysis. COMPARISON: Chest radiograph 08/16/2019. FINDINGS: TUBES and LINES: Interval placement of left arm PICC which terminates at the cavoatrial junction. LUNGS: Bilateral pulmonary venous congestion. There is patchy density in the bilateral mid and lower lungs, left greater than right; decreased on the right suggesting asymmetric edema, however superimposed infection cannot be excluded in the proper clinical setting. PLEURA: Moderate bilateral pleural effusions. Loculated component at the right lung apex. No pneumothorax. HEART AND MEDIASTINUM: Cardiac size is moderately enlarged. BONES AND SOFT TISSUES: No acute osseous lesion. UPPER ABDOMEN: No free air under the diaphragm. IMPRESSION: No significant interval change. Findings consistent with decompensated CHF associated with bilateral moderate pleural effusions. Signed by: Dr. Lui Vidal M.D. on 08/17/2019 8:44 AM
--- NOTE | 2019-08-17 09:59 | Progress Note ---
DATE: 08/17/2019 CHIEF COMPLAINT/HISTORY OF PRESENT ILLNESS: This is a 58-year-old man, whose primary treating diagnosis is mgtkn-uh-jdfkgtz diastolic congestive heart failure. The patient was transferred to the intensive care unit yesterday because of altered mentation. The patient also has history of end-stage renal disease. The patient states today he feels much better. He also states that he is a full resuscitation status. The patient underwent an echocardiogram in May 2018, which revealed a left ventricular ejection fraction of 40% to 45%, as well as diastolic filling pattern indicating impaired relaxation. The patient underwent a heart left heart catheterization on June 24, 2018, that did not reveal any evidence of obstructive coronary artery disease, but he was diagnosed with acute systolic heart failure, nonischemic cardiomyopathy. The patient underwent a chest x-ray today, August 17, 2019, which revealed findings consistent with decompensated congestive heart failure as well as bilateral moderate pleural effusions. Today's B-type natriuretic peptide level was elevated at 8540. The patient's BUN and creatinine today was 68 and 4.36 respectively. Potassium today is 5.3. The patient's white blood cell count today is 9600 with 76% segmenters. Hemoglobin 9 g/dL. REVIEW OF SYSTEMS: As per HPI. PHYSICAL EXAMINATION: GENERAL: He is awake, alert and fully oriented. No distress. VITAL SIGNS: Blood pressure is 170/90, pulse is 90, respiratory rate 22, oxygen saturation 100% on 2 L oxygen, temp 99.4. BMI is 21. INTEGUMENT: Skin is warm and dry. Slight pallor. No jaundice or diaphoresis. No wounds or ulcerations appreciated. HEENT: : Anicteric sclerae. Moist mucous membranes. NECK: Supple. CARDIOVASCULAR: Distant heart sounds. Regular rate and rhythm with an S3 and S4 gallop. LUNGS: The patient has crackles in the bilateral lungs angelo. ABDOMEN: Soft. EXTREMITIES: No edema or deformity. NEUROLOGIC: No focal deficits. DIAGNOSES: 1. Wygko-qi-vuilgwz systolic/diastolic congestive heart failure. 2. Nonischemic cardiomyopathy. 3. End-stage renal disease. 4. Hypertensive encephalopathy, resolved. 5. Anemia secondary to chronic kidney disease. 6. Bilateral pneumonia likely Gram-negative edgar. PLAN: 1. Continue intravenous meropenem and vancomycin for likely Gram-negative pneumonia. 2. Blood pressure control. 3. Increase metoprolol succinate 50 mg daily twice a day. 4. Agree with Kayexalate as ordered by Nephrology for the patient's hyperkalemia. 5. I spoke at length with the patient and he states he is a full code status. 6. The patient will likely benefit from repeat hemodialysis either today or tomorrow. 7. Follow blood cultures. 8. Continue supportive care. I spent 40 minutes in the care of this intensive care unit patient. MD CHRISTIANO Fernández/BRIT /[id number] MTDChuck
--- NOTE | 2019-08-17 18:51 | Consultation ---
DATE OF CONSULTATION: 08/17/2019 Cardiology Consultation CONSULTING PHYSICIAN: Ankur Reyna M.D., Interventional Cardiology REASON FOR CONSULTATION: Hypertensive emergency. HISTORY OF PRESENT ILLNESS: Mr. 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 He presents with worsening hypertension, abnormal chest x-ray, pleural effusions, cardiomegaly and diffuse pulmonary infiltrates concerning for underlying edema. His BNP was 8540. His serial troponins have been 0.13 and 0.12. Initially, severely hypotensive, now with partial improvement. Yesterday, he was reportedly had episode of hypoglycemia after seizure-like activity, resulting in benzodiazepine administration, for which the patient resulted in somnolence afterward. Today, he is awake. Denies any chest pain or active shortness of breath, however, does not recall significant events from yesterday. He is somewhat confused. REVIEW OF SYSTEMS: Twelve-system review negative except for as noted above. PAST MEDICAL HISTORY: As per HPI. SOCIAL HISTORY: Negative for smoking, alcohol, or drugs. FAMILY HISTORY: Noncontributory. PHYSICAL EXAMINATION: VITAL SIGNS: Temperature 99.4, heart rate 83, blood pressure 168/74, respiratory rate 18, and O2 saturation 100%. GENERAL: In no acute distress. Alert. Cachectic, emaciated, chronically ill appearing. NECK: JV distended. CHEST: Clear to auscultation. CARDIOVASCULAR: Regular rate and rhythm. Normal S1, S2. No S3 or S4. ABDOMEN: Soft. Bowel sounds present. EXTREMITIES: No edema. CARDIOVASCULAR MEDICATIONS: Reviewed, 1. Metoprolol succinate 50 mg b.i.d. 2. Clonidine 0.1 mg b.i.d. 3. Hydralazine 10 mg every 4 hours. 4. Nifedipine 30 mg b.i.d. STUDIES: Reviewed. Sodium 138, potassium 4.7, chloride 99, bicarbonate 28, BUN 68, creatinine 4.3, glucose 116. White blood cells 9.6, hemoglobin 9, and platelets 227. AST 15, ALT 14, alkaline phosphatase 105. ASSESSMENT: A 58-year-old man with ndjby-ep-vtagvnu mixed systolic and diastolic heart failure in the setting of hypertensive emergency, presents with pulmonary infiltrates and pulmonary edema. Differential includes gram-negative pneumonia. The patient has end-stage renal disease, anemic, diabetes, hypertension, cerebrovascular disease. RECOMMENDATIONS: The patient will be receiving Kayexalate today for high K, given the patient having end-stage renal disease. For now, beta-vasquez and ARBs regimen in addition to this additional antihypertensive, regimen includes nifedipine, clonidine, and p.r.n. hydralazine. Monitor response. Further optimization of medications according to clinical course. Thank you for the opportunity to participate in the care of this patient. MD ToddV/MODL /[id number] MTDD
[2019-08-17] MEDS: TIZANIDINE HCL 4 MG TAB PO SCH (21:40)
--- NOTE | 2019-08-17 21:55 | Progress Note ---
DATE: SUBJECTIVE: The patient is more awake and alert, was transferred to ICU for hypoglycemia. REVIEW OF SYSTEMS: Currently denying any complaints of chest pain. No shortness of breath. Review of systems negative except as in HPI. PHYSICAL EXAMINATION: VITAL SIGNS: Temperature 99.4, pulse of 87, and blood pressure 169/75. CHEST: Clear. Crackles on the bases. HEART: S1 and S2 audible. Generally cachectic weak male. ABDOMEN: Soft and nontender. EXTREMITIES: No pedal edema. LABORATORY DATA: Reviewed. ASSESSMENT AND PLAN: 1. Chronic history for decortication, chronic pleural effusion with scarring on the lung. 2. End-stage renal disease. 3. Recent hypoglycemia was transferred to ICU, now better possibility of seizure. PLAN: Continue the patient on current treatment antibiotic. The patient is currently stable, in no distress. Blood pressure, on antihypertensive medication per Nephrology recommendations. MD SHAMAR Carrillo/BRIT /[id number]
[2019-08-18] VITALS (26 sets, daily range): BP systolic 85–196; BP diastolic 42–148
[2019-08-18 05:06] LABS: BASOPHILS % 0.3 % (0.0-1.0); EOSINOPHILS # (AUTO) 0.2 (0.0-0.4); EOSINOPHILS % 3.2 % (0.0-6.0); HEMATOCRIT 27.8 % (38.2-49.6); HEMOGLOBIN 8.8 g/dL (14.0-18.0); LYMPHOCYTES # (AUTO) 0.7 (1.0-3.2); LYMPHOCYTES % 10.5 % (18.0-39.1); MEAN CORPUSCULAR HGB CONC 31.7 g/dL (31-35); MEAN CORPUSCULAR VOLUME 91.7 fL (81-99); MONOCYTES # (AUTO) 0.6 (0.2-0.8); MONOCYTES % 9.2 % (4.4-11.3); NEUTROPHILS # (AUTO) 5.2 (2.1-6.9); NEUTROPHILS % 76.5 % (38.7-80.0); PLATELET COUNT 213 x10e3/uL (140-360); RED BLOOD COUNT 3.03 x10e6/uL (4.3-5.7); RED CELL DISTRIBUTION WIDTH 14.9 % (11.7-14.4)
[2019-08-18 05:29] LABS: ALBUMIN 2.5 g/dL (3.5-5.0); ALBUMIN/GLOBULIN RATIO 0.6 (0.8-2.0); ANION GAP 18.7 mmol/L (8-16); CALCIUM 9.2 mg/dL (8.4-10.2); CREATININE, SERUM 5.56 mg/dL (0.72-1.25); MAGNESIUM 2.3 MG/DL (1.3-2.1); PHOSPHORUS 6.5 MG/DL (2.3-4.7); POTASSIUM 4.7 mmol/L (3.5-5.1)
[2019-08-18] MEDS: MEROPENEM 500MG/ NS 50ML 50 ML IV SCH (06:40)
[2019-08-18] MEDS: INSULIN REGULAR, HUMAN 100 UNIT/1 ML 3ML VIAL SQ SCH ×3 (07:30→16:30)
--- NOTE | 2019-08-18 08:48 | Diagnostic Imaging Report ---
History: Pneumonia, urinary tract infection, CHF Comparison: 08/17/2019 Findings: There are small bilateral pleural effusions. There is airspace consolidation at the right lung base which may just be compressive atelectasis although underlying pneumonia cannot be excluded. There is mild vascular congestion. These findings are all similar to the prior study. No pneumothorax is identified. The heart shadow is partially obscured. The thoracic aorta is mildly tortuous. Degenerative changes are present in the spine. Impression: 1. Findings suggestive of congestive heart failure, similar in appearance. 2. Right lower lobe atelectasis versus pneumonia, unchanged. Signed by: John Villeda MD on 08/18/2019 8:45 AM
[2019-08-18] MEDS: NIFEDIPINE CR 30 MG TAB PO SCH ×2 (09:00→17:41)
[2019-08-18] MEDS: CLONIDINE HCL 0.1 MG TAB PO SCH ×3 (09:00→20:51)
[2019-08-18] MEDS: LOSARTAN POTASSIUM 100 MG TAB PO SCH (09:00)
[2019-08-18] MEDS: METOPROLOL SUCCINATE 50 MG TAB XL PO SCH ×2 (09:00→17:41)
--- NOTE | 2019-08-18 12:12 | Progress Note ---
DATE: 08/18/2019 Cardiology Progress Note SUBJECTIVE: No complaints today. Denies chest pain or shortness of breath. Blood pressure better controlled. The patient is scheduled for dialysis later this morning. OBJECTIVE: VITAL SIGNS: Temperature 98 degrees, heart rate 84, blood pressure 140 to 170s/60s to 80s, respiratory rate 19, O2 saturation 100%. GENERAL: In no acute distress. Alert. NECK: No JVD. CHEST: Decreased breath sounds in bilateral bases. CARDIOVASCULAR: Regular rate and rhythm. Normal S1 and S2. ABDOMEN: Soft. Bowel sounds positive. EXTREMITIES: No edema. CARDIOVASCULAR MEDICATIONS: Reviewed. Metoprolol succinate 50 mg b.i.d., clonidine 0.1 mg t.i.d., hydralazine 10 mg every 4 hours, losartan 100 mg daily, nifedipine 30 mg b.i.d. LABORATORY STUDIES: Sodium 138, potassium 4.7, chloride 97, bicarbonate 27, BUN 94, creatinine 5.5, glucose 253. White blood cell 6.7, hemoglobin 8.8, platelets 213. ASSESSMENT AND PLAN: A 58-year-old man with acute on chronic mixed systolic and diastolic heart failure, hypertensive emergency, pulmonary edema, end-stage renal disease. RECOMMENDATIONS: Continue current cardiovascular medications. Await volume optimization with dialysis today. Further adjustments on antihypertensives following dialysis as needed. MD JOSE Jones/BRIT /[id number]
[2019-08-18] MEDS: MEGACE 400MG/ 10ML CUP PO SCH (14:02)
[2019-08-18] MEDS: LIDOCAINE 4% PATCH TP SCH (14:02)
[2019-08-18] MEDS: VANCOMYCIN 1GM/NS 250 ML 250 ML IV SCH (18:01)
[2019-08-18] MEDS: TIZANIDINE HCL 4 MG TAB PO SCH (20:51)
[2019-08-18] MEDS: HYDRALAZINE HCL 20 MG/ML VIAL IV PRN (23:19)
[2019-08-19] VITALS (21 sets, daily range): BP systolic 115–199; BP diastolic 58–98
[2019-08-19 05:17] LABS: BASOPHILS % 0.7 % (0.0-1.0); EOSINOPHILS # (AUTO) 0.4 (0.0-0.4); EOSINOPHILS % 7.2 % (0.0-6.0); HEMATOCRIT 28.7 % (38.2-49.6); HEMOGLOBIN 9.2 g/dL (14.0-18.0); LYMPHOCYTES % 16.4 % (18.0-39.1); MEAN CORPUSCULAR HEMOGLOBIN 28.9 pg (28-32); MEAN CORPUSCULAR HGB CONC 32.1 g/dL (31-35); MEAN CORPUSCULAR VOLUME 90.3 fL (81-99); MONOCYTES # (AUTO) 0.7 (0.2-0.8); MONOCYTES % 10.6 % (4.4-11.3); NEUTROPHILS % 64.8 % (38.7-80.0); PLATELET COUNT 205 x10e3/uL (140-360); RED BLOOD COUNT 3.18 x10e6/uL (4.3-5.7); RED CELL DISTRIBUTION WIDTH 14.6 % (11.7-14.4)
[2019-08-19 05:30] LABS: ALBUMIN 2.4 g/dL (3.5-5.0); ALBUMIN/GLOBULIN RATIO 0.5 (0.8-2.0); ANION GAP 11.5 mmol/L (8-16); CALCIUM 8.9 mg/dL (8.4-10.2); CREATININE, SERUM 3.92 mg/dL (0.72-1.25); PHOSPHORUS 4.9 MG/DL (2.3-4.7); POTASSIUM 4.5 mmol/L (3.5-5.1)
[2019-08-19] MEDS: MEROPENEM 500MG/ NS 50ML 50 ML IV SCH (05:30)
[2019-08-19] MEDS: HYDRALAZINE HCL 20 MG/ML VIAL IV PRN (05:31)
[2019-08-19] MEDS: INSULIN REGULAR, HUMAN 100 UNIT/1 ML 3ML VIAL SQ SCH ×3 (07:18→16:30)
[2019-08-19] MEDS: CLONIDINE HCL 0.1 MG TAB PO SCH ×3 (07:19→22:09)
[2019-08-19] MEDS: NIFEDIPINE CR 30 MG TAB PO SCH ×2 (08:15→16:54)
[2019-08-19] MEDS: METOPROLOL SUCCINATE 50 MG TAB XL PO SCH ×2 (08:15→21:30)
[2019-08-19] MEDS: LIDOCAINE 4% PATCH TP SCH (08:15)
[2019-08-19] MEDS: LOSARTAN POTASSIUM 100 MG TAB PO SCH (08:15)
[2019-08-19] MEDS: MEGACE 400MG/ 10ML CUP PO SCH (08:25)
[2019-08-19] MEDS ORDERED: OXAZEPAM 10 MG CAP PO PRN (09:00)
--- NOTE | 2019-08-19 12:52 | Progress Note ---
DATE: 08/19/2019 Cardiology Progress Note SUBJECTIVE: Denies any chest pain or shortness of breath. OBJECTIVE: VITAL SIGNS: Temperature 99.3, heart rate 75 on telemetry in sinus rhythm, blood pressure 151/61, respiratory rate 14, O2 saturation 100%. GENERAL: No acute distress, alert. NECK: No JVD. CHEST: Decreased breath sounds in bilateral bases. CARDIOVASCULAR: Regular rate and rhythm. Normal S1 and S2. No S3 or S4. ABDOMEN: Soft. Bowel sounds positive. EXTREMITIES: No edema. CARDIOVASCULAR MEDICATIONS: Reviewed. Metoprolol succinate 50 mg b.i.d., clonidine 0.1 mg t.i.d., hydralazine 20 mg every 4 hours p.r.n., losartan 100 mg daily, nifedipine 30 mg b.i.d. STUDIES: Reviewed. Sodium 137, potassium 4.5, bicarbonate 29, creatinine 3.9, glucose 143. White blood cell 6.1, hemoglobin 9.2, and platelets 205. ASSESSMENT AND PLAN: A 58-year-old man with hypertensive emergency, aiaxl-es-agfqmbo mixed systolic and diastolic heart failure, end-stage renal disease, and anemia. Recommend up titrate metoprolol to 100 mg b.i.d. Continue rest of cardiovascular medications. Ankur Reyan MD AFEscobar/MODL /[id number]
[2019-08-19] MEDS: TIZANIDINE HCL 4 MG TAB PO SCH (22:10)
[2019-08-20] VITALS: BP 158/75
[2019-08-20 04:00] VITALS: BP 148/67
[2019-08-20] MEDS: MEROPENEM 500MG/ NS 50ML 50 ML IV SCH (06:06)
[2019-08-20 07:53] VITALS: BP 168/81
[2019-08-20 08:21] VITALS: BP 168/81
[2019-08-20] MEDS: LOSARTAN POTASSIUM 100 MG TAB PO SCH (08:38)
[2019-08-20] MEDS: NIFEDIPINE CR 30 MG TAB PO SCH ×2 (08:38→16:42)
[2019-08-20] MEDS: CLONIDINE HCL 0.1 MG TAB PO SCH ×2 (08:38→14:55)
[2019-08-20] MEDS: LIDOCAINE 4% PATCH TP SCH (08:39)
[2019-08-20] MEDS: METOPROLOL SUCCINATE 50 MG TAB XL PO SCH (08:39)
[2019-08-20] MEDS: INSULIN REGULAR, HUMAN 100 UNIT/1 ML 3ML VIAL SQ SCH ×3 (11:14→16:47)
[2019-08-20] MEDS: MEGACE 400MG/ 10ML CUP PO SCH (11:16)
[2019-08-20 11:59] VITALS: BP 176/81
--- NOTE | 2019-08-20 12:00 | Progress Note ---
DATE: 08/20/2019 Cardiology Progress Note SUBJECTIVE: Denies any chest pain or shortness of breath. OBJECTIVE: VITAL SIGNS: Temperature 98.3, heart rate 86, blood pressure 168/81, respiratory rate 19, and O2 saturation 97%. GENERAL: In no acute distress, alert. NECK: No JVD. CHEST: Clear to auscultation. CARDIOVASCULAR: Regular rate and rhythm. Normal S1, S2. ABDOMEN: Soft. Bowel sounds positive. EXTREMITIES: No edema. Undergoing dialysis today. CARDIOVASCULAR MEDICATIONS: Reviewed, are: 1. Metoprolol succinate 100 mg every 12 hours. 2. Clonidine 0.1 mg b.i.d. 3. Nifedipine 30 mg b.i.d. 4. Losartan 100 mg daily. STUDIES: Reviewed. Sodium 137, potassium 4.5, chloride 101, bicarbonate 29, BUN 54, creatinine 3.9, and glucose 143. White blood cells 6.1, hemoglobin 9.2, and platelets 205. AST 31 and ALT 34. ASSESSMENT AND PLAN: A 58-year-old man with anemia, end-stage renal disease, gjfyj-xe-vwzndgi mixed systolic and diastolic heart failure, hypertension, diabetes. Recommend to continue current cardiovascular medications. Blood pressure optimization. Ankur Reyna MD AFEscobar/MODVik /[id number]
[2019-08-20] MEDS: VANCOMYCIN 1GM/NS 250 ML 250 ML IV SCH (14:55)
[2019-08-20 17:19] VITALS: BP 142/71
== END 2019-08-20 17:37 | DRG 291 ==
LOC: ER 21:33 → ERHOLD 08-13 00:11 → ICU 08-13 01:12 → MED/SURG 08-13 15:04 → ICU 08-14 00:44 → MED/SURG 08-15 21:21 → ICU 08-16 08:39 → MED/SURG2 08-19 15:17
PROC: 5A1D70Z Performance of Urinary Filtration, Intermittent, Less than 6 Hours Per Day (ICD-10-PCS; principal; 2019-08-13)
DX: I13.2 Hypertensive heart and chronic kidney disease with heart failure and with stage 5 chronic kidney disease, or end stage renal disease (principal); N18.6 End stage renal disease; I50.43 Acute on chronic combined systolic (congestive) and diastolic (congestive) heart failure; G93.41 Metabolic encephalopathy; J15.6 Pneumonia due to other Gram-negative bacteria; I16.1 Hypertensive emergency; E11.22 Type 2 diabetes mellitus with diabetic chronic kidney disease; Z99.2 Dependence on renal dialysis; Z79.4 Long term (current) use of insulin; I25.10 Atherosclerotic heart disease of native coronary artery without angina pectoris; Z86.73 Personal history of transient ischemic attack (TIA), and cerebral infarction without residual deficits; I95.9 Hypotension, unspecified; D64.9 Anemia, unspecified; E11.649 Type 2 diabetes mellitus with hypoglycemia without coma; I42.8 Other cardiomyopathies; D63.1 Anemia in chronic kidney disease
CPT/HCPCS: 36415; 36600; 70450; 71045; 80048; 80053; 82140; 82550; 82553; 82805; 82948; 83605; 83735; 83880; 84100; 84132; 84484; 85025; 86704; 86705; 86706; 87040; 87340; 87350; 90962; 93005; 96374; 97139; 99251; 99285; J0360; J1817; J1940; J2060; J3370; J7030; J7050; J7799

== ENCOUNTER 2019-09-24 00:58 | Inpatient (IN) | payer MEDICARE, OTHER ==
[~2019-09-24] VITALS: Ht 160 cm; Wt 53.5 kg
[~2019-09-24 00:58] MED LIST changes: +CLONIDINE HCL0.1 MG PO; +LIDOCAINE PATCH TOP; +LOSARTAN POTAS100 MG PO; +MEGESTROL400 MG/10 PO; +METOPROLOL SUCC50 MG PO; +PROCARDIA XL30 MG PO; +TIZANIDINE HCL4 MG PO; +TYLENOL WITH C1 EACH PO; +ULTRAM 50MG50 MG PO
--- OUTSIDE RECORDS SUMMARY | 2019-09-24 01:01 | XMS REPORT | Clinical Summary ---
Author Author [facility] Organization [facility] Address Unknown Phone Unavailable Care Team Providers Care Home Care Physical Therapist Name Role Phone Eber Bryant MD PCP Allergies Comments Active Allergy Reactions Severity Noted Date No Known Drug Allergies 11/10/2015 Medications No known medications Active Problems Problem Noted Date Diabetic foot ulcer 09/24/2015 Chronic osteomyelitis of right foot 09/24/2015 Diabetes mellitus type II, controlled 09/24/2015 Cellulitis of foot without toes, right 09/24/2015 Immunizations Name Administration Dates Next Due Pneumococcal Conjugate 10/03/2015 13-Valent Family History Medical History Relation Name Comments Diabetes type II Brother Hypertension Brother Diabetes type II Mother Relation Name Status Comments Brother Mother Social History Date Tobacco Use Types Packs/Day Years Used Never Smoker Drinks/Week oz/Week Comments Alcohol Use 3-4 Cans of beer 3.0 - 4.0 Yes Sex Assigned at Date Recorded Not on file Industry Job Start Date Occupation Not on file Not on file Not on file Travel End Travel History Travel Start No recent travel history available. Last Filed Vital Signs Not on file Plan of Treatment Health Maintenance Due Date Last Done Comments DIABETIC RETINAL EYE EXAM 1960 DIABETIC FOOT EXAM 12/04/1969 COLONOSCOPY SCREENING 12/04/2009 SHINGLES VACCINES (#1) 12/04/2009 INFLUENZA VACCINE 11/29/2019 Results Not on fileafter 09/23/2018 Insurance Type Payer Benefit Subscriber ID Effective Phone Address Plan / Dates Group Exchange BCBS EXCHANGE BLUE xxxxxxxxxxxx 2015-P ADVANTAGE resent HMO EXCH [id number] [place] (Home) [place] [id number] [address] Self 1960 [id number] Libert[employer] (Home) [place] [id number] Liability Advance Directives For more information, please contact: [phone] Patient Plant Facilities Technician Explanation Type Date Recorded Advance Directives, Living Will and Medical Power of Wool Broker Date Inactivated Comments Code Status Date Activated 10/03/2015 5:05 PM Full Code 09/24/2015 11:04 PM Code Status decision reached by: Patient
--- OUTSIDE RECORDS SUMMARY | 2019-09-24 01:01 | XMS REPORT | Clinical Summary ---
Author Author [facility] Address Unknown Phone Unavailable Care Team Providers Care Technical Services Coordinator Name Role Phone PCP Unavailable Allergies No Known Allergies Medications End Date Status Medication Sig Dispensed Refills Start Date Active losartan (COZAAR) 100 MG Take 100 mg 0 tabletIndications: 1/2 by mouth tab daily. Active rosuvastatin (CRESTOR) 5 Take 5 mg by 0 MG tabletIndications: Pt mouth daily. taking 1/2 tab daily Active calcium acetate (PHOSLO) Take 667 mg 0 667 mg capsule by mouth 3 (three) times daily with meals. Active minoxidil (LONITEN) 10 MG Take 10 mg by 0 tablet mouth daily. Active folic acid (FOLVITE) 1 MG Take 1 mg by 0 tablet mouth daily. Active doxazosin (CARDURA) 8 MG Take 8 mg by 0 tablet mouth nightly. Active furosemide (LASIX) 40 MG Take 40 mg by 0 tablet mouth 2 (two) times daily. Active gabapentin (NEURONTIN) Take 100 mg 0 100 MG capsule by mouth 3 (three) times daily. Active Problems Not on file Encounters Care Team Description Date Type Specialty Sim, Na Y 08/05/2019 Documentation Transplant Kameron Freeman MD Surgical follow-up care (Primary Dx) 07/01/2019 Office Visit Cardiology Kameron Freeman MD Surgical follow-up care 07/01/2019 Hospital Radiology Encounter Jeanne Mishra Pleural effusion 07/01/2019 Orders Only Radiology Ron Lamb PA Pleural effusion (Primary Dx) 07/01/2019 Orders Only Intensive Care Kameron Freeman MD Surgical follow-up care (Primary Dx) 06/25/2019 Office Visit Cardiology Mireille Timmons MD Yao, September, MD Pre-transplant evaluation for chronic ki dney disease (Primary Dx) 03/06/2019 Evaluation Transplant Mireille Timmons MD 03/06/2019 Follow-Up Transplant Mireille Timmons MD 03/06/2019 Evaluation Transplant Mireille Timmons MD 03/06/2019 Follow-Up Transplant Mireille Timmons MD Diabetes mellitus of other type with com plication, unspecified whether terminal superintendent insulin use; Anemia of renal disease; Hypertensive renal disease; Pre-transplant evaluation for chronic kidney disease 03/06/2019 Hospital Radiology Encounter Mireille Timmons MD Diabetes mellitus of other type with com plication, unspecified whether longterm insulin use; Anemia of renal disease; Hypertensive renal disease; Pre-transplant evaluation for chronic kidney disease 03/06/2019 Hospital Cardiology Encounter Mireille Timmons MD Diabetes mellitus of other type with com plication, unspecified whether longterm insulin use; Anemia of renal disease; Hypertensive renal disease; Pre-transplant evaluation for chronic kidney disease 03/06/2019 Hospital Cardiology Encounter Mireille Timmons MD Diabetes mellitus of other type with com plication, unspecified whether longterm insulin use; Anemia of renal disease; Hypertensive renal disease; Pre-transplant evaluation for chronic kidney disease 03/06/2019 Orders Only Mireille Harris MD 03/06/2019 Outside Orders Patti Huerta RN Anemia of renal disease (Primary Dx); Hypertensive renal disease; Pre-transplant evaluation for chronic kidney disease 03/05/2019 Orders Only Transplant Mireille Timmons MD Diabetes mellitus of other type with com plication, unspecified whether terminal superintendent insulin use (HCC); Anemia of renal disease; Hypertensive renal disease; Pre-transplant evaluation for chronic kidney disease 12/17/2018 Hospital Encounter Mireille Timmons MD Diabetes mellitus of other type with com plication, unspecified whether terminal superintendent insulin use (HCC); Anemia of renal disease; Hypertensive renal disease; Pre-transplant evaluation for chronic kidney disease 12/17/2018 Orders Only Mireille Harris MD Labrador, Florencia P, RN Diabetes mellitus of other type with com plication, unspecified whether terminal superintendent insulin use (HCC) (Primary Dx); Anemia of renal disease; Hypertensive renal disease; Pre-transplant evaluation for chronic kidney disease 12/17/2018 Office Visit Transplant Mireille Timmons MD 12/17/2018 Outside Orders Linsey Pryor 10/29/2018 Documentation Transplant Linsey Pryor Appointment (Called patient's to sc hedule 's day one renal txp eval appt. No answer. Left detailed voicemail msg and call back number. Vmail msg stated to leave a msg for Taras. May be wrong number) 10/29/2018 Telephone Transplant Linsey Pryor Appointment (Called patient's son to pas s on msg to father regarding scheduling dinesh his day one renal txp eval appt. Son not accepting calls at this time. No way to leave voicemail msg and call back number. ) 10/29/2018 Telephone Transplant Linsey Pryor Appointment (Called patient to schedule day one renal txp eval appt. No asnwer. Third attempt to reach. Left detailed voicemail message and call back number in Romanian.) 10/29/2018 Telephone Transplant Linsey Pryor 09/30/2018 Documentation Transplant Linsey Pryor 09/30/2018 Documentation Transplant after 09/23/2018 Social History Date Tobacco Use Types Packs/Day Years Used Never Smoker Sex Assigned at Date Recorded Not on file Industry Job Start Date Occupation Not on file Not on file Not on file Travel End Travel History Travel Start No recent travel history available. Last Filed Vital Signs Time Taken Vital Sign Reading 06/25/2019 4:25 PM EMERGENCY ROOM PHYSICIAN Blood Pressure 178/87 06/25/2019 4:25 PM EMERGENCY ROOM PHYSICIAN Pulse 75 03/06/2019 12:43 PM EMERGENCY ROOM PHYSICIAN Temperature 36.9 C (98.5 F) 03/06/2019 12:43 PM EMERGENCY ROOM PHYSICIAN Respiratory Rate 16 - Oxygen Saturation - - Inhaled Oxygen - Concentration 03/06/2019 12:43 PM EMERGENCY ROOM PHYSICIAN Weight 59.2 kg (130 lb 8 oz) 03/06/2019 12:43 PM EMERGENCY ROOM PHYSICIAN Height 174 cm (5' 8.5") 03/06/2019 12:43 PM EMERGENCY ROOM PHYSICIAN Body Mass Index 19.55 Plan of Treatment Health Maintenance Due Date Last Done Comments COLON CANCER SCREENING 1960 COLONOSCOPY DIABETIC EYE EXAM 12/04/1969 DIABETIC FOOT EXAM 12/04/1969 HEMOGLOBIN A1C 06/19/2019 12/17/2018 PNEUMOCOCCAL VACCINE 2-64 Completed 06/28/2018, 10/03/2015 YEARS AT RISK INFLUENZA VACCINE Completed 02/11/2019 Procedures Comments Procedure Name Priority Date/Time Associated Diag nosis XR CHEST 2 VIEWS Routine 07/01/2019 Pleural effus ion 1:23 PM EMERGENCY ROOM PHYSICIAN XR CHEST 2 VIEWS STAT 07/01/2019 Surgical foll ow-up care 11:56 AM EMERGENCY ROOM PHYSICIAN TRANSFUSION SERVICE 03/07/2019 REPORT - SCAN 5:54 PM EMERGENCY ROOM PHYSICIAN PERIPHERAL VASCULAR 03/06/2019 REPORT - SCAN 9:24 PM EMERGENCY ROOM PHYSICIAN US ABDOMEN COMPLETE Routine 03/06/2019 Diabetes m ellitus of 11:40 AM EMERGENCY ROOM PHYSICIAN other type with complication, unspecified whether terminal superintendent insulin use Anemia of renal disease Hypertensive renal disease Pre-transplant evaluation for chronic kidney disease STRESS ECHO WITH CONTRAST Routine 03/06/2019 Diab etes mellitus of & TRACING 8:58 AM EMERGENCY ROOM PHYSICIAN other type with complication, unspecified whether terminal superintendent insulin use Anemia of renal disease Hypertensive renal disease Pre-transplant evaluation for chronic kidney disease ECG 12-LEAD Routine 03/06/2019 Diabetes mellit us of 7:30 AM EMERGENCY ROOM PHYSICIAN other type with complication, unspecified whether terminal superintendent insulin use Anemia of renal disease Hypertensive renal disease Pre-transplant evaluation for chronic kidney disease BLOOD TYPING, AUTOMATED Routine 03/06/2019 Diabet es mellitus of 6:58 AM EMERGENCY ROOM PHYSICIAN other type with complication, unspecified whether longterm insulin use Anemia of renal disease Hypertensive renal disease Pre-transplant evaluation for chronic kidney disease PSA Routine 03/06/2019 Anemia of renal disease 6:58 AM EMERGENCY ROOM PHYSICIAN Hypertensive renal disease Pre-transplant evaluation for chronic kidney disease LIPID PANEL Routine 03/06/2019 Diabetes mellit us of 6:58 AM EMERGENCY ROOM PHYSICIAN other type with complication, unspecified whether terminal superintendent insulin use Anemia of renal disease Hypertensive renal disease Pre-transplant evaluation for chronic kidney disease TRANSFUSION SERVICE 12/18/2018 REPORT - SCAN 6:04 PM CDT XR CHEST 2 VIEWS Routine 12/17/2018 Diabetes paramjit itus of 12:09 PM CDT other type with complication, unspecified whether longterm insulin use (HCC) Anemia of renal disease Hypertensive renal disease Pre-transplant evaluation for chronic kidney disease T SPOT TB Routine 12/17/2018 Diabetes mellit us of 11:23 AM CDT other type with complication, unspecified whether longterm insulin use (HCC) Anemia of renal disease Hypertensive renal disease Pre-transplant evaluation for chronic kidney disease HLA TYPING CI Routine 12/17/2018 Diabetes mellit us of 11:23 AM CDT other type with complication, unspecified whether longterm insulin use (HCC) Anemia of renal disease Hypertensive renal disease Pre-transplant evaluation for chronic kidney disease HLA TYPING CII Routine 12/17/2018 Diabetes mellit us of 11:23 AM CDT other type with complication, unspecified whether longterm insulin use (HCC) Anemia of renal disease Hypertensive renal disease Pre-transplant evaluation for chronic kidney disease CBC W/PLT COUNT & AUTO Routine 12/17/2018 Diabete s mellitus of DIFFERENTIAL 11:22 AM CDT other type with complication, unspecified whether longterm insulin use (HCC) Anemia of renal disease Hypertensive renal disease Pre-transplant evaluation for chronic kidney disease DIRECT AHG (BETO)/DIRECT Routine 12/17/2018 Diabet es mellitus of ROBB 11:22 AM CDT other type with complication, unspecified whether longterm insulin use (HCC) Anemia of renal disease Hypertensive renal disease Pre-transplant evaluation for chronic kidney disease TYPE AND SCREEN, Routine 12/17/2018 Diabetes paramjit itus of AUTOMATED 11:22 AM CDT other type with complication, unspecified whether terminal superintendent insulin use (HCC) Anemia of renal disease Hypertensive renal disease Pre-transplant evaluation for chronic kidney disease AB SPECIFICITY CLASS II Routine 12/17/2018 Diabet es mellitus of 11:22 AM CDT other type with complication, unspecified whether longterm insulin use (HCC) Anemia of renal disease Hypertensive renal disease Pre-transplant evaluation for chronic kidney disease FLOW PRA CLASS II WITH Routine 12/17/2018 Diabete s mellitus of REFLEX TO ANTIBODY 11:22 AM CDT other type with SPECIFICITY complication, unspecified whether terminal superintendent insulin use (HCC) Anemia of renal disease Hypertensive renal disease Pre-transplant evaluation for chronic kidney disease HEMOGLOBIN A1C Routine 12/17/2018 Diabetes mellit us of 11:22 AM CDT other type with complication, unspecified whether terminal superintendent insulin use (HCC) Anemia of renal disease Hypertensive renal disease Pre-transplant evaluation for chronic kidney disease VARICELLA ZOSTER Routine 12/17/2018 Diabetes paramjit itus of ANTIBODY, IGG 11:22 AM CDT other type with complication, unspecified whether terminal superintendent insulin use (HCC) Anemia of renal disease Hypertensive renal disease Pre-transplant evaluation for chronic kidney disease URIC ACID Routine 12/17/2018 Diabetes mellit us of 11:22 AM CDT other type with complication, unspecified whether terminal superintendent insulin use (HCC) Anemia of renal disease Hypertensive renal disease Pre-transplant evaluation for chronic kidney disease RPR Routine 12/17/2018 Diabetes mellit us of 11:22 AM CDT other type with complication, unspecified whether longterm insulin use (HCC) Anemia of renal disease Hypertensive renal disease Pre-transplant evaluation for chronic kidney disease PT/APTT Routine 12/17/2018 Diabetes mellit us of 11:22 AM CDT other type with complication, unspecified whether longterm insulin use (HCC) Anemia of renal disease Hypertensive renal disease Pre-transplant evaluation for chronic kidney disease PTH, INTACT Routine 12/17/2018 Diabetes mellit us of 11:22 AM CDT other type with complication, unspecified whether longterm insulin use (HCC) Anemia of renal disease Hypertensive renal disease Pre-transplant evaluation for chronic kidney disease PHOSPHORUS Routine 12/17/2018 Diabetes mellit us of 11:22 AM CDT other type with complication, unspecified whether longterm insulin use (HCC) Anemia of renal disease Hypertensive renal disease Pre-transplant evaluation for chronic kidney disease LACTATE DEHYDROGENASE Routine 12/17/2018 Diabetes mellitus of (LDH) 11:22 AM CDT other type with complication, unspecified whether terminal superintendent insulin use (HCC) Anemia of renal disease Hypertensive renal disease Pre-transplant evaluation for chronic kidney disease HIV-1 ANTIGEN WITH Routine 12/17/2018 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 11:22 AM CDT other type with complication, unspecified whether longterm insulin use (HCC) Anemia of renal disease Hypertensive renal disease Pre-transplant evaluation for chronic kidney disease HEPATITIS C ANTIBODY Routine 12/17/2018 Diabetes mellitus of 11:22 AM CDT other type with complication, unspecified whether terminal superintendent insulin use (HCC) Anemia of renal disease Hypertensive renal disease Pre-transplant evaluation for chronic kidney disease HEPATITIS B CORE Routine 12/17/2018 Diabetes paramjit itus of ANTIBODY, IGM 11:22 AM CDT other type with complication, unspecified whether terminal superintendent insulin use (HCC) Anemia of renal disease Hypertensive renal disease Pre-transplant evaluation for chronic kidney disease HEPATITIS B SURFACE Routine 12/17/2018 Diabetes m ellitus of ANTIGEN 11:22 AM CDT other type with complication, unspecified whether terminal superintendent insulin use (HCC) Anemia of renal disease Hypertensive renal disease Pre-transplant evaluation for chronic kidney disease HEPATITIS B SURFACE Routine 12/17/2018 Diabetes m ellitus of ANTIBODY 11:22 AM CDT other type with complication, unspecified whether terminal superintendent insulin use (HCC) Anemia of renal disease Hypertensive renal disease Pre-transplant evaluation for chronic kidney disease GAMMA GLUTAMYL Routine 12/17/2018 Diabetes mellit us of TRANSFERASE (GGT) 11:22 AM CDT other type with complication, unspecified whether longterm insulin use (HCC) Anemia of renal disease Hypertensive renal disease Pre-transplant evaluation for chronic kidney disease EBV ANTIBODY, IGM Routine 12/17/2018 Diabetes tyler litus of 11:22 AM CDT other type with complication, unspecified whether longterm insulin use (HCC) Anemia of renal disease Hypertensive renal disease Pre-transplant evaluation for chronic kidney disease EBV ANTIBODY, IGG Routine 12/17/2018 Diabetes tyler litus of 11:22 AM CDT other type with complication, unspecified whether longterm insulin use (HCC) Anemia of renal disease Hypertensive renal disease Pre-transplant evaluation for chronic kidney disease COMPREHENSIVE METABOLIC Routine 12/17/2018 Diabet es mellitus of PANEL 11:22 AM CDT other type with complication, unspecified whether terminal superintendent insulin use (HCC) Anemia of renal disease Hypertensive renal disease Pre-transplant evaluation for chronic kidney disease CYTOMEGALOVIRUS ANTIBODY, Routine 12/17/2018 Diab etes mellitus of IGM 11:22 AM CDT other type with complication, unspecified whether longterm insulin use (HCC) Anemia of renal disease Hypertensive renal disease Pre-transplant evaluation for chronic kidney disease CYTOMEGALOVIRUS ANTIBODY, Routine 12/17/2018 Diab etes mellitus of IGG 11:22 AM CDT other type with complication, unspecified whether terminal superintendent insulin use (HCC) Anemia of renal disease Hypertensive renal disease Pre-transplant evaluation for chronic kidney disease CBC W/PLT COUNT & AUTO Routine 12/17/2018 Diabete s mellitus of DIFFERENTIAL 11:22 AM CDT other type with complication, unspecified whether terminal superintendent insulin use (HCC) Anemia of renal disease Hypertensive renal disease Pre-transplant evaluation for chronic kidney disease FLOW PRA CLASS I WITH Routine 12/17/2018 Diabetes mellitus of REFLEX TO ANTIBODY 11:22 AM CDT other type with SPECIFICITY complication, unspecified whether longterm insulin use (HCC) Anemia of renal disease Hypertensive renal disease Pre-transplant evaluation for chronic kidney disease URINE CULTURE Routine 12/17/2018 Diabetes mellit us of 11:15 AM CDT other type with complication, unspecified whether terminal superintendent insulin use (HCC) Anemia of renal disease Hypertensive renal disease Pre-transplant evaluation for chronic kidney disease after 09/23/2018 Results * XR chest 2 views (07/01/2019 1:23 PM EMERGENCY ROOM PHYSICIAN) Only the most recent of 3 results within the time period is included. Specimen Narrative Performed At FINAL REPORT [facility] INDICATION: removed chest tube COMPARISON: Earlier same day TECHNIQUE: Frontal and lateral views of the chest. FINDINGS: Lungs and pleura: Right greater than le ft effusion and adjacent compressive atelectasis, not significan tly changed Heart and mediastinum: Normal heart siz e. Unremarkable mediastinal contours. Osseous structures: No acute abnormalit y. Additional findings: None. Signed: Briana Black MD Report Verified Date/Time: 0 13:56:42 Reading Location: [facility] Radiolo gy Reading Room Procedure Note Interface, External Ris In - 07/01/2019 1:58 PM EMERGENCY ROOM PHYSICIAN FINAL REPORT INDICATION: removed chest tube COMPARISON: Earlier same day TECHNIQUE: Frontal and lateral views of the chest. FINDINGS: Lungs and pleura: Right greater than left effusion and adjacent compressive atelectasis, not significantly changed Heart and mediastinum: Normal heart size. Unremarkable mediastinal contours. Osseous structures: No acute abnormality. Additional findings: None. Signed: Briana Black MD Report Verified Date/Time: 07/01/2019 13:56:42 Reading Location: [facility] Radiology Reading Room Performing Organization Address City/State/Zipcode Ph one Number [employer] RIS * TRANSFUSION SERVICE REPORT - SCAN (03/07/2019 5:54 PM EMERGENCY ROOM PHYSICIAN) Only the most recent of 2 results within the time period is included. Narrative Performed At This result has an attachment that is n ot available. * PERIPHERAL VASCULAR REPORT - SCAN (03/06/2019 9:24 PM EMERGENCY ROOM PHYSICIAN) Narrative Performed At This result has an attachment that is n ot available. * US abdomen complete (03/06/2019 11:40 AM EMERGENCY ROOM PHYSICIAN) Specimen Narrative Performed At FINAL REPORT [employer] TECHNIQUE: Grayscale ultrasound of the abdomen. INDICATION: 58-year-old man for renal t ransplant evaluation. COMPARISON: None. FINDINGS: MIDLINE VASCULATURE: The visualized inf erior vena cava is patent. Portal vein is patent. The maximum visu alized aortic diameter is 1.8 cm. LIVER: The liver is normal in size and echogenicity with smooth contour. No focal lesions. BILIARY: Gallbladder: Shadowing stone in the gal lbladder. No gallbladder wall thickening, pericholecystic fluid, or d istention. Negative sonographic Ventura sign. Common bile duct measures 0.3 cm, withi n normal limits. No intrahepatic biliary ductal dilatation. PANCREAS: Visualized portions of the pa ncreas are unremarkable. SPLEEN: No splenomegaly. PERITONEUM: No free fluid. KIDNEYS: Both kidneys are mildly echoge clement. The right kidney measures 7.9 x 3.8 x 4.3 cm with cortical thickn ess of 1.1 cm. The left kidney measures 8.7 x 5.1 x 3.9 cm with cortic al thickness of 1.4 cm. No hydronephrosis. No sonographically evid ent renal mass or cyst. OTHER FINDINGS: Right pleural effusion. IMPRESSION: Mildly echogenic kidneys, suggestive of medical renal disease. No renal mass or cyst. Cholelithiasis. Signed: Fausto Eddy MD Report Verified Date/Time: 9 13:29:38 Reading Location: [address] Radiolo gy Reading Room Procedure Note Interface, External Ris In - 03/06/2019 1:31 PM EMERGENCY ROOM PHYSICIAN FINAL REPORT TECHNIQUE: Grayscale ultrasound of the abdomen. INDICATION: 58-year-old man for renal transplant evaluation. COMPARISON: None. FINDINGS: MIDLINE VASCULATURE: The visualized inferior vena cava is patent. Portal vein is patent. The maximum visualized aortic diameter is 1.8 cm. LIVER: The liver is normal in size and echogenicity with smooth contour. No focal lesions. BILIARY: Gallbladder: Shadowing stone in the gallbladder. No gallbladder wall thickening, pericholecystic fluid, or distention. Negative sonographic Ventura sign. Common bile duct measures 0.3 cm, within normal limits. No intrahepatic biliary ductal dilatation. PANCREAS: Visualized portions of the pancreas are unremarkable. SPLEEN: No splenomegaly. PERITONEUM: No free fluid. KIDNEYS: Both kidneys are mildly echogenic. The right kidney measures 7.9 x 3.8 x 4.3 cm with cortical thickne ss of 1.1 cm. The left kidney measures 8.7 x 5.1 x 3.9 cm with cortical thickness of 1.4 cm. No hydronephrosis. No sonographically evident renal mass or cyst. OTHER FINDINGS: Right pleural effusion. IMPRESSION: Mildly echogenic kidneys, suggestive of medical renal disease. No renal mass or cyst. Cholelithiasis. Signed: Fausto Eddy MD Report Verified Date/Time: 03/06/2019 13:29:38 Reading Location: [address] Radiology Reading Room Performing Organization Address City/State/Zipcode Ph one Number [employer] RIS * STRESS ECHO With Contrast & Tracing (03/06/2019 8:58 AM EMERGENCY ROOM PHYSICIAN) Ejection Fraction Est EF of >70% [facility] ECHO [facility]ART[facility] Specimen Narrative Performed At Stress Echocardiography Report [facility] Demographics [facility] Patient Name JOSHUA HULL Date of Study03/06/2019 [id number] Gender Male Visit Number [id number] Race Unknown [id number] Room NumberOP Number Date of Birth1960 Referring PhysicianTimbutch Marcus Age58 year(s) SonographConstantino Moreira RDCS Interpreting Kirby olson MD Physician Fellow Bryant Da Silva Procedure Type of Study Stress procedure:STRESS E CHO/TMT W/DOP&TRAC (Routine) Indications:Renal transplant evaluation . Clinical History CKD, DM Height: 72 inches Weight: 66.22 kg (146 lbs) BSA: 1.86 m^2 BMI: 19.8 kg/m^2 HR: 84 bpm BP: 179/81 mmHg Rest ECG NSR, normal axis, poor R wave progressi on, non-specific T wave changes. Stress Peak HR: 146 bpm HR BP Product: [id number] Peak BP: 210/93 mmHg Predicted HR: 161 bpm % of predicted HR: 91 Stress Interpretation Echocardiogram: Resting echocardiogram showed normal LV systolic function, estimated LVEF of 55%. Normal wall chico on. At peak stress, the echocardiogram showed appropriate LV au gmentation. Estimated LVEF of >70%. No wall motion abnormalities. Results Global LVEF (rest): Normal (LVEF >50%) Global LVEF (stress): Appears preserved ECG No significant ischemic changes. Arrhythmias None Symptoms None Summary Indications: pre surgical evaluation fo r organ transplantation Procedure done: Dobutamine stress echoc ardiogram. Complications: None Medications: Dobutamine infusion with p eak rate of 20 mcg/kg/min. ECG: The patient underwent dobutamine s tress echocardiogram. The resting heart rate was 81 bpm. Resting electroc ardiogram showed normal sinus rhythm with poor R wave progression and non-specific T wave changes. The heart rate increased to 146 bpm which c orresponded to 90% maximum predicted heart rate. There were no isc hemic ECG changes noted. There were no arrhythmias noted. The blood pressur e at baseline was 179/81 mm Hg and was 195/83 at peak stress. The patient did not develop any significant symptoms. Echocardiogram: Resting echocardiogram showed normal LV systolic function, estimated LVEF of 55%. Normal wall chico on. At peak stress, the echocardiogram showed appropriate LV au gmentation. Estimated LVEF of >70%. No wall motion abnormalities. Conclusion: Negative Dobutamine stress echocardiogram. No ischemic ECG or echocardiographic changes at a diagnost ic level of stress. Previous Study No previous study for comparison. Signature Findings Rhythm/BPRe gular sinus rhythm during the exam. Left Ventricle The LV e ndocardium is adequately visualized. The left ventricle is chamber size (by vol index) is normal (male - LVED vol - 34-74ml/m2). Mild concentric LV hypertrophy. All of the LV segments contract normally . LVEF by Garcia's method of disk assessment is normal (55-60%) . Grade 1 diastolic dysfunction (impaired relaxation and low-normal LA pressure). Left AtriumNorm al size left atrium. Right VentricleNormal r ight ventricle structure and function. Right Atrium Normal right atrium. Atrial SeptumNormal interatrial septum by available views. Aortic Valve Normal AoV structure and function by limited views and Doppler. Mitral Valve Normal MV structure and function by available views and Doppler. Tricuspid ValveTrace TR . Unable to estimate PA systolic pressure due to inadequacy of TR signal. Pulmonic Valve Normal P V structure and function by limited views and Doppler. Aorta Aortic root size (SInus of Valsalva diameter) is normal . The aortic sinotubular junction appears normal . PericardiumTrac e anterior pericardial effusion is present. IVC/SVC/PA/PV/PleuralAscites is pre sent. The estimated RA pressure by IVC dynamics 0-5mmHg . Chambers/Structures Left Atrium LA Volume: 64.1 ml LA Area: 19.31 cm^2 LA Vol. Index: 34 ml/m^2 Left Ventricle LVIDd: 4.56 cm LVIDs: 2.87 cm LV Septum Diastolic: 1.23 cm LV PW Diastolic: 1.17 cm LV FS: 37.1 % LVEDV Garcia's:95.85 ml LVESV Garcia's:37.77 ml LVEDVI: 52 ml/m^2 LVEF Garcia's: 60.6 % LVESVI: 20 ml/m^2 LVOT Diameter: 2.09 cm Aorta Ao Root S of Carey.: 3.17 cm Doppler/Quantitative Measurements Mitral Valve MV Peak E-Wave: 1.04 m/s MV Peak A-Wave: 0.99 m/s E/A Ratio: 1.04 Mean Velocity: 0.77 m/s Peak Gradient: 4.3 mmHg Mean Gradient: 2.57 mmHg Deceleration Time: 142.3 msec Area (continuity): 3.23 cm^2 MV VTI: 25.26 cm MV Chandler. Peak: 0.98 m/s Tissue Doppler E' Septal Velocity: 0.05 m/s A' Septal Velocity: 0.1 m/s E' Lateral Velocity: 0.08 m/s A' Lateral Velocity: 0.18 m/s E/E': 20.54 Aortic Valve Peak Velocity: 1.48 m/s Mean Velocity: 1.09 m/s Peak Gradient: 8.78 mmHg Mean Gradient: 5.07 mmHg AV Area (continuity): 2.51 cm^2 AV VTI: 32.42 cm AV DVI: 0.73 LVOT Peak Velocity: 1.02 m/s Peak Gradient: 4.18 mmHg Mean Velocity: 0.77 m/s Mean Gradient: 2.59 mmHg LVOT Diameter: 2.09 cm LVOT VTI: 23.77 cm LVOT Area: 3.43 cm^2 LVOT SV:81.51 ml LVOT CO: 6.85 l/min LVOT CI: 3.68 l/min/m^2 Procedure Note Interface, External Ris In - 03/06/2019 10:37 AM EMERGENCY ROOM PHYSICIAN Stress Echocardiography Report Demographics Patient Name JOSHUA HULL Date of Study 03/06/2019 Gender Male Visit Number [id number] Race Unknown Room Number OP Number Date of 1960 Referring Physician Iain Marcus Age 58 year(s) Hearing Screen Coordinator Andrew Moreira RDCS Interpreting Kirby Prakash MD Physician Fellow Bryant Da Silva Procedure Type of Study Stress procedure:STRESS ECHO/TMT W/DOP&TRAC (Routine) Indications:Renal transplant evaluation . Clinical History CKD, DM Height: 72 inches Weight: 66.22 kg (146 lbs) BSA: 1.86 m^2 BMI: 19.8 kg/m^2 HR: 84 bpm BP: 179/81 mmHg Rest ECG NSR, normal axis, poor R wave progression, non-specific T wave changes. Stress Peak HR: 146 bpm HR BP Product: [id number] Peak BP: 210/93 mmHg Predicted HR: 161 bpm % of predicted HR: 91 Stress Interpretation Echocardiogram: Resting echocardiogram showed normal LV systolic function, estimated LVEF of 55%. Normal wall motion. At peak stress, the echocardiogram showed appropriate LV augmentation. Estimated LVEF of >70%. No wall motion abnormalities. Results Global LVEF (rest): Normal (LVEF >50%) Global LVEF (stress): Appears preserved ECG No significant ischemic changes. Arrhythmias None Symptoms None Summary Indications: pre surgical evaluation for organ transplantation Procedure done: Dobutamine stress echocardiogram. Complications: None Medications: Dobutamine infusion with peak rate of 20 mcg/kg/min. ECG: The patient underwent dobutamine stress echocardiogram. The resting heart rate was 81 bpm. Resting electrocardiogram showed normal sinus rhythm with poor R wave progression and non-specific T wave changes. The heart rate increased to 146 bpm which corresponded to 90% maximum predicted heart rate. There were no ischemic ECG changes noted. There were no arrhythmias noted. The blood pressure at baseline was 179/81 mm Hg and was 195/83 at peak stress. The patient did not develop any significant symptoms. Echocardiogram: Resting echocardiogram showed normal LV systolic function, estimated LVEF of 55%. Normal wall motion. At peak stress, the echocardiogram showed appropriate LV augmentation. Estimated LVEF of >70%. No wall motion abnormalities. Conclusion: Negative Dobutamine stress echocardiogram. No ischemic ECG or echocardiographic changes at a diagnostic level of stress. Previous Study No previous study for comparison. Signature Findings Rhythm/BP Regular sinus rhythm during the exam. Left Ventricle The LV endocardium is adequately visualized. The left ventricle is chamber size (by vol index) is normal (male - LVED vol - 34-74ml/m2). Mild concentric LV hypertrophy. All of the LV segments contract normally . LVEF by Garcia's method of disk assessment is normal (55-60%) . Grade 1 diastolic dysfunction (impaired relaxation and low-normal LA pressure). Left Atrium Normal size left atrium. Right Ventricle Normal right ventricle structure and function. Right Atrium Normal right atrium. Atrial Septum Normal interatrial septum by available views. Aortic Valve Normal AoV structure and function by limited views and Doppler. Mitral Valve Normal MV structure and function by available views and Doppler. Tricuspid Valve Trace TR. Unable to estimate PA systolic pressure due to inadequacy of TR signal. Pulmonic Valve Normal PV structure and function by limited views and Doppler. Aorta Aortic root size (SInus of Valsalva diameter) is normal . The aortic sinotubular junction appears normal . Pericardium Trace anterior pericardial effusion is present. IVC/SVC/PA/PV/Pleural Ascites is present. The estimated RA pressure by IVC dynamics 0-5mmHg . Chambers/Structures Left Atrium LA Volume: 64.1 ml LA Area: 19.31 cm^2 LA Vol. Index: 34 ml/m^2 Left Ventricle LVIDd: 4.56 cm LVIDs: 2.87 cm LV Septum Diastolic: 1.23 cm LV PW Diastolic: 1.17 cm LV FS: 37.1 % LVEDV Garcia's:95.85 ml LVESV Garcia's:37.77 ml LVEDVI: 52 ml/m^2 LVEF Garcia's: 60.6 % LVESVI: 20 ml/m^2 LVOT Diameter: 2.09 cm Aorta Ao Root S of Carey.: 3.17 cm Doppler/Quantitative Measurements Mitral Valve MV Peak E-Wave: 1.04 m/s MV Peak A-Wave: 0.99 m/s E/A Ratio: 1.04 Mean Velocity: 0.77 m/s Peak Gradient: 4.3 mmHg Mean Gradient: 2.57 mmHg Deceleration Time: 142.3 msec Area (continuity): 3.23 cm^2 MV VTI: 25.26 cm MV Chandler. Peak: 0.98 m/s Tissue Doppler E' Septal Velocity: 0.05 m/s A' Septal Velocity: 0.1 m/s E' Lateral Velocity: 0.08 m/s A' Lateral Velocity: 0.18 m/s E/E': 20.54 Aortic Valve Peak Velocity: 1.48 m/s Mean Velocity: 1.09 m/s Peak Gradient: 8.78 mmHg Mean Gradient: 5.07 mmHg AV Area (continuity): 2.51 cm^2 AV VTI: 32.42 cm AV DVI: 0.73 LVOT Peak Velocity: 1.02 m/s Peak Gradient: 4.18 mmHg Mean Velocity: 0.77 m/s Mean Gradient: 2.59 mmHg LVOT Diameter: 2.09 cm LVOT VTI: 23.77 cm LVOT Area: 3.43 cm^2 LVOT SV:81.51 ml LVOT CO: 6.85 l/min LVOT CI: 3.68 l/min/m^2 Performing Organization Address City/State/Zipcode Ph one Number [facility] MKCKESSON CPA * ECG 12 lead (03/06/2019 7:30 AM EMERGENCY ROOM PHYSICIAN) Specimen Narrative Performed At Ventricular Rate 88 BPM [place] Atrial Rate 88 BPM P-R Interval 188 ms QRS Duration 90 ms Q-T Interval 400 ms QTC Calculation(Bazett) 484 ms P Kimball 80 degrees R Kimball 81 degrees T Kimball 103 degrees Normal sinus rhythm Nonspecific T wave abnormality Prolonged QT Abnormal ECG No previous ECGs available Confirmed by MD Millan Roberto ([id number]) on 03/06/2019 2:35:16 PM Procedure Note Interface, External Ris In - 03/06/2019 2:35 PM EMERGENCY ROOM PHYSICIAN Ventricular Rate 88 BPM Atrial Rate 88 BPM P-R Interval 188 ms QRS Duration 90 ms Q-T Interval 400 ms QTC Calculation(Bazett) 484 ms P Kimball 80 degrees R Kimball 81 degrees T Kimball 103 degrees Normal sinus rhythm Nonspecific T wave abnormality Prolonged QT Abnormal ECG No previous ECGs available Confirmed by MD Millan Roberto ([id number]) on 03/06/2019 2:35:16 PM Performing Organization Address City/[facility] Ph one Number [facility] * Blood typing, automated (03/06/2019 6:58 AM EMERGENCY ROOM PHYSICIAN) ABO/RH AUTOMATED (BEAKER) O POSITIVE [facility] Specimen Blood Performing Organization Address [facility] Ph one Number [address] [address] [facility] C[facility] * PSA (03/06/2019 6:58 AM EMERGENCY ROOM PHYSICIAN) PSA 0.6 0.0 - 4.0 ng/mL [facility] Specimen Blood Performing Organization Address [facility] Ph one Number [address] [address] MEDICAL CENTER * Lipid panel (03/06/2019 6:58 AM EMERGENCY ROOM PHYSICIAN) Triglycerides 85 mg/dL [facility] Cholesterol 120 mg/dL [facility] HDL 39 mg/dL [facility] LDL Calculated 64 mg/dL [facility] Specimen Blood Narrative Performed At Triglyceride Reference Range: [facility] Low Risk <150 [facility] [id number] High Risk 200-499 Very High Risk>=500 Cholesterol Reference Range: Low Risk <200 [id number] High Risk>240 HDL Cholesterol Reference Range: Low Risk >=60 High Risk <40 LDL Cholesterol Reference Range: Optimal<100 Near [id number] [id number] Zffy499-843 Very High >=190 Performing Organization Address [facility] one Number [facility] [address] [place], [place] [address] [facility] * HLA TYPING CII (12/17/2018 11:23 AM CDT) HLA-DR AG1 [address] [facility] HLA-DR AG2 [address] [facility] HLA-DR AG3-[address] [facility] HLA-DQA1 AG 1-[address] [facility] HLA-DQA1 AG 1-[address] [facility] HLA-DQB1 AG 1-[address] [facility] HLA-DQB1 AG 1-[address] [facility] HLA-DPA1 AG 1-[address] [facility] HLA-DPA1 AG 1-[address] [facility] HLA-DPB1 AG 1-1 04:[address] [facility] HLA-DPB1 AG 1-[address] 105:[address] [facility] Specimen Blood Narrative Performed At Disclaimer: [facility] This test was developed and its perform ance characteristics determined by the [facility] Laboratory. It has not been cleared or approved by the U.S. Food and Drug Administration. The FDA has determined that such clearance or approval is not necessary. This test is used for clinic al purposes. It should not be regarded as investigational or for research. [facility] is certified under the Clinical Laboratory Improvement Amendments of 19 88 (CLIA-88) as qualified to perform high complexity clinical laboratory testing. Performing Organization Address City/[facility] one Number [facility] ONE [facility] [place], MS: [id number], [place] [address] CLIA#[id number] CAP#[id number] UNOS#[id number] * HLA TYPING CI (12/17/2018 11:23 AM CDT) HLA-A AG1 [address] [facility] HLA-A AG2 [address] [facility] HLA-B AG1 [address] [facility] HLA-B AG2 [address] [facility] HLA-C AG1 [address] [facility] HLA-C AG2 [address] [facility] HLA-B BW1 [address] [facility] HLA-B BW2 [address] [facility] Specimen Blood Narrative Performed At Disclaimer: [facility] This test was developed and its perform ance characteristics determined by the [facility]. It has not been cleared or approved by the U.S. Food and Drug Administration. The FDA has determined that such clearance or approval is not necessary. This test is used for clinic al purposes. It should not be regarded as investigational or for research. This l aboratory is certified under the Clinical Laboratory Improvement Amendments of 19 (CLIA-88) as qualified to perform high complexity clinical laboratory testing. Performing Organization Address City/[facility] Ph one Number [facility] ONE Sathya Dorman, MS: [id number], [place] [address] CLIA#[id number] CAP#[id number] UNOS#[id number] * T Spot TB (12/17/2018 11:23 AM CDT) T-Spot TB Negative [facility] Neg Ctrl Spot Count 0 [facility] Panel A Spot 0 [facility] Panel B Spot 0 [facility] Pos Ctrl Spot Ct 0 [facility] Scan Result [facility] Specimen Blood Narrative Performed At This result has an attachment that is n ot available. Performing Organization Address City/[facility] one Number [facility] [address] [place] [address] LABORATORIES 100 * FLOW PRA CLASS II WITH REFLEX TO ANTIBODY SPECIFICITY (12/17/2018 11:22 AM CDT) Flow Class II Percent [address] [facility] NG Positive Specimen Blood Narrative Performed At Disclaimer: [facility] This test was developed and its perform ance characteristics determined by the [facility]. It has not been cleared or approved by the U.S. Food and Drug Administration. The FDA has determined that such clearance or approval is not necessary. This test is used for clinic al purposes. It should not be regarded as investigational or for research. This l aboratory is certified under the Clinical Laboratory Improvement Amendments of 19 (CLIA-88) as qualified to perform high complexity clinical laboratory testing. Performing Organization Address City/[facility] Ph one Number [facility] ONE Sathya Dorman, MS: [id number], [place] [address] CLIA#[id number] CAP#[id number] UNOS#[id number] * FLOW PRA CLASS I WITH REFLEX TO ANTIBODY SPECIFICITY (12/17/2018 11:22 AM CDT) Flow Class I Percent [address] [facility] G Positive Specimen Blood Narrative Performed At Disclaimer: [facility] This test was developed and its perform ance characteristics determined by the [facility]. It has not been cleared or approved by the U.S. Food and Drug Administration. The FDA has determined that such clearance or approval is not necessary. This test is used for clinic al purposes. It should not be regarded as investigational or for research. This l aboratory is certified under the Clinical Laboratory Improvement Amendments of 19 (CLIA-88) as qualified to perform high complexity clinical laboratory testing. Performing Organization Address [facility] one Number [facility] ONE Sathya Dorman, MS: [id number], [place] [address] CLIA#[id number] CAP#[id number] UNOS#[id number] * AB SPECIFICITY CLASS II (12/17/2018 11:22 AM CDT) AB Specificity Class II NO CLASS II ANTIBODY DETECTED [facility] TEST[facility] WITH MFIs > 4000 Specimen Blood Narrative Performed At Disclaimer: [facility] This test was developed and its perform ance characteristics determined by the [facility]. It has not been cleared or approved by the U.S. Food and Drug Administration. The FDA has determined that such clearance or approval is not necessary. This test is used for clinic al purposes. It should not be regarded as investigational or for research. This l aboratory is certified under the Clinical Laboratory Improvement Amendments of 19 88 (CLIA-88) as qualified to perform high complexity clinical laboratory testing. Performing Organization Address [facility] one Number [facility] ONE Sathya Dorman, MS: [id number], [place] [address] CLIA#[id number] CAP#[id number] UNOS#[id number] * Type and Screen, Automated (12/17/2018 11:22 AM CDT) ABO/RH AUTOMATED (BEAKER) O POSITIVE [facility] Ab Scrn NEGATIVE [facility] Specimen Blood Performing Organization Address [facility] one Number [address] [address] [facility] * PT/aPTT (12/17/2018 11:22 AM CDT) Protime 14.0 11.9 - 14.2 seconds [facility] INR 1.1 <=5.9 [facility] PTT 34.9 22.5 - 36.0 seconds [facility] Specimen Blood Narrative Performed At Effective 09/25/2018: PT Reference Range Change [facility] New: 11.9-14.2Previous: 11.7-14.7 [facility] MEDICAL CE NTER RECOMMENDED COUMADIN/WARFARIN INR THERA PY RANGES STANDARD DOSE: 2.0-3.0Includes: PRO PHYLAXIS for venous thrombosis, systemic embolization; TREATMENT for venous thro mbosis and/or pulmonary embolus. HIGH RISK: Target INR is 2.5-3.5 for pa tients wiht mechanical heart valves. Performing Organization Address City/[facility] Ph one Number [address] [address] [facility] * HIV-1 Antigen with HIV-1/2 Antibody (12/17/2018 11:22 AM CDT) HIV-1 Antigen with HIV Nonreactive Nonreactive [facility] 1&2 Antibody [facility] Specimen Blood Performing Organization Address City/State[facility] Ph one Number [address] [address] [facility] * CBC with platelet count + automated diff (12/17/2018 11:22 AM CDT) WBC 5.5 3.5 - 10.5 K/L [facility] RBC 3.93 (L) 4.63 - 6.08 M/L [facility] Hemoglobin 12.0 (L) 13.7 - 17.5 GM/DL [facility] Hematocrit 37.8 (L) 40.1 - 51.0 % [facility] MCV 96.2 (H) 79.0 - 92.2 fL [facility] MCH 30.5 25.7 - 32.2 pg [facility] MCHC 31.7 (L) 32.3 - 36.5 GM/DL [facility] RDW 14.7 (H) 11.6 - 14.4 % [facility] Platelets 108 (L) 150 - 450 K/CU MM [facility] MPV 12.7 (H) 9.4 - 12.4 fL [facility] nRBC 0 0 - 0 /100 WBC [facility] % Neutros 58 % [facility] % Lymphs 20 % [facility] % Monos 11 % [facility] % Eos 10 % [facility] % Baso 1 % [facility] # Neutros 3.18 1.78 - 5.38 K/L [facility] # Lymphs 1.12 (L) 1.32 - 3.57 K/L [facility] # Monos 0.61 0.30 - 0.82 K/L [facility] # Eos 0.53 0.04 - 0.54 K/L [facility] # Baso 0.06 0.01 - 0.08 K/L [facility] Immature 0 0 - 1 % [facility] Granulocytes-Relative [facility] Specimen Blood Performing Organization Address City/State/Zipcode Ph one Number [facility] [address] [facility], [place] [address] MEDICAL CENTER * Hepatitis C Antibody (12/17/2018 11:22 AM CDT) Hepatitis C Ab Nonreactive Nonreactive [facility] Specimen Blood Performing Organization Address [facility] one Number [address] [phone] [place] [address] * Cytomegalovirus antibody, IgM (12/17/2018 11:22 AM CDT) CMV IGM Negative Negative, Equivocal [facility] Specimen Blood Narrative Performed At CMV IgM Result Interpretation: [facility] </= 0.8 Al Negative [facility] 0.9-1.0 Al Equivocal >/= 1.1 Al Positive Performing Organization Address [facility] one [address] * Hepatitis B core antibody, IgM (12/17/2018 11:22 AM CDT) Hep B C IgM Nonreactive Nonreactive [facility] Specimen Blood Performing Organization Address [facility] one [place] [address] [address] [phone] [place] [address] * EBV-VCA antibody, IgM (12/17/2018 11:22 AM CDT) MICHEAL PANDYA VIRAL CAPSID Negative Negative, Equivocal [facility] ANTIGEN IGM [facility] Specimen Blood Narrative Performed At Micheal Pandya Viral Capsid Antigen IgM Result Interpre tation: [facility] </= 0.8 Al Negative [facility] 0.9-1.0 Al Equivocal >/= 1.1 Al Positive Performing Organization Address [facility] one [place] [address] 0 [phone] [place] [address] * EBV-VCA antibody, IgG (12/17/2018 11:22 AM CDT) MICHEAL PANDYA VIRAL CAPSID Positive (A) Negative, Equivocal [facility] ANTIGEN IGG [facility] Specimen Blood Narrative Performed At Micheal Pandya Viral Capsid Antigen IgG Result Interpre tation: [facility] </= 0.8 Al Negative [facility] 0.9-1.0 Al Equivocal >/= 1.1 Al Positive Performing Organization Address [facility] one Number [address] [address] [facility] * RPR (12/17/2018 11:22 AM CDT) RPR Nonreactive Nonreactive [facility] Specimen Blood Performing Organization Address [facility] one [address] [address] [facility] * Hepatitis B surface antibody (12/17/2018 11:22 AM CDT) Hep B S Ab <8.0 <8.0 mIU/mL [facility] Specimen Blood Performing Organization Address [facility] one Number [address] [address] [facility] * Hepatitis B surface antigen (12/17/2018 11:22 AM CDT) HBsAg Screen Nonreactive Nonreactive [facility] Specimen Blood Performing Organization Address [facility] one [address] [address] [facility] * Cytomegalovirus antibody, IgG (12/17/2018 11:22 AM CDT) CYTOMEGALOVIRUS, IGG Positive (A) Negative, Equivocal [facility] Specimen Blood Narrative Performed At CMV IgG Result Interpretation: [facility] </= 0.8 Al Negative [facility] 0.9-1.0 Al Equivocal >/=1.1 AlPositive Performing Organization Address [facility] one Number [address] [address] [facility]ENTER * Direct [facility]HG (BETO)/Direct Robb (12/17/2018 11:22 AM CDT) Direct [facility]HG-IGG NEGATIVE [facility] Direct AHG-C3B, C3D NEGATVIE [facility] Specimen Blood Performing Organization Address [facility] one Number [address] [address] [phone] [facility] * Varicella Zoster Antibody, IgG (12/17/2018 11:22 AM CDT) Varicella IgG 4.9 [facility] Specimen Blood Narrative Performed At VARICELLA ZOSTER RESULT INTERPRETATIONS: [facility] <=0.8 AlNo nreactive:Presumed non-immune to VZV [facility] 0.9-1.0 AlEqui vocal >=1.1 AlRe active:Presumed immune to VZV Performing Organization Address [facility] one Number [phone] [place] [address] * Uric Acid (12/17/2018 11:22 AM CDT) Uric Acid 4.6 2.6 - 7.2 mg/dL [facility] Specimen Blood Performing Organization Address [facility] one Number [address] [phone] [place] [address] * Phosphorus (12/17/2018 11:22 AM CDT) Phosphorus 4.8 (H) 2.3 - 4.7 mg/dL [facility] Specimen Blood Performing Organization Address [facility] Ph one Number [address] [address] [facility] * PTH, Intact (12/17/2018 11:22 AM CDT) PTH 236.2 (H) 8.5 - 72.5 pg/mL [facility] Specimen Blood Performing Organization Address City/[facility]/Zipcode Ph one Number [address] [facility] * Lactate Dehydrogenase (LDH) (12/17/2018 11:22 AM CDT) LDH 263 (H) 125 - 220 U/L [facility] Specimen Blood Performing Organization Address City/[facility] Ph one Number [address] [facility] * Hemoglobin A1c (12/17/2018 11:22 AM CDT) Hemoglobin A1C 5.3 4.3 - 6.1 % [facility] Specimen Blood Performing Organization Address [facility] Ph one Number [address] [facility] * Gamma Glutamyl Transferase (GGT) (12/17/2018 11:22 AM CDT) GGT 47 9 - 64 U/L [facility] Specimen Blood Performing Organization Address [facility] Ph one [place] [address] [facility] * Comprehensive metabolic panel (12/17/2018 11:22 AM CDT) Protein, Total 8.3 6.0 - 8.3 gm/dL [facility] Albumin 4.5 3.5 - 5.0 g/dL [facility] Alkaline Phosphatase 122 40 - 150 U/L [facility] Total Bilirubin 0.7 0.2 - 1.2 mg/dL [facility] Sodium 139 136 - 145 meq/L [facility] Potassium 4.9 3.5 - 5.1 meq/L [facility] Chloride 102 98 - 107 meq/L [facility] CO2 25 22 - 29 meq/L [facility] BUN 43 (H) 7 - 21 mg/dL [facility] Creatinine 8.15 (H) 0.57 - 1.25 mg/dL [facility] Glucose 79 70 - 105 mg/dL [facility] Calcium 9.5 8.4 - 10.2 mg/dL [facility] AST 21 5 - 34 U/L [facility] ALT 19 6 - 55 U/L [facility] EGFR 7Comment: ESTIMATED GFR IS NOT mL/min/1.73 sq m [facility] ACCURATE CREATININE [facility] CLEARANCE IN PREDICTING GLOMERULAR FILTRATION RATE. ESTIMATED GFR IS NOT APPLICABLE FOR DIALYSIS PATIENTS. Specimen Blood Performing Organization Address City/[facility] Ph one Number [address] [facility] * Urine Culture (12/17/2018 11:15 AM CDT) Result 40-49,000 col/mL skin marisol [facility] Specimen Urine Performing Organization Address [facility] Ph one Number [facility] [address] [place] [address] [phone] [facility] after 09/23/2018 Insurance Payer Benefit Subscriber ID Type Phone Address Plan / Group MEDICARE MEDICARE A xxxxxxxxxxx Medicare B [employer] LIFESOURCE CIGNA xxxxxxxxxxx Transplant TRANSPLANT LIFESOURCE s TRANSPLANT MEDICAID [place]ID xxxxxxxxx [place] [phone]
--- OUTSIDE RECORDS SUMMARY | 2019-09-24 01:02 | XMS REPORT ---
Author Author [facility] Organization [facility] t Address [address] [place] [address] Phone Unavailable Support Name Relationship Address Phone JOSHUA [place], [place] [address] [address] [place], [place] [address] JOSHUA CACERES PRS [address] [place] [address] KAI CAPPS [place] [address] GÉNESIS KAI PRS [address] [place] [address] NO, FAMILY Caregiver Unknown Unavailable NO, PCP Caregiver Unknown Unavailable PHUC NARAYAN, [place] BAH Caregiver [address] [place] [address] Unavailable DILLAN FAUSTIN MD Caregiver [address] [place] [address] KAI CAPPS Next Of Kin [address] [place] [address] REFUGIO NARAYAN, TING Caregiver [address] [facility] [address] [place], [place] [id number] Escobar NOVOA MD Caregiver [address] [place] [address] Unavailable Rubi VILLA MD Caregiver [address] [place] [address] Unavailable PETRA GRIMALDO MD Caregiver [address] [place] [address] Unavailable ORQUIDEA NARAYAN, HUNTER Caregiver [address] [facility] [address] [place] [address] DAISY Youngblood, [place] LOPEZKIRAN Caregiver [address] [place] [address] SAGE NARAYAN, [place] WEST Caregiver [address] [address] [place] [address] PHUC NARAYAN, [place] NIURKA Caregiver [address] [place] [address] SOUMYA VEGA DO Caregiver [address] [place] [address] Rodney GARCIA MD Caregiver [address] [place] [address] SUNG VAIL MD Caregiver [address] [place] [address] Vik HOOPER MD Caregiver [address] [place] [address] JOSHUA CACERES PRS [address] [place] [address] KAI CAPPS PRS [address] [place] [address] Lisy Capps ECON Unknown [phone] Douglas Capps ECON Unknown Care Team Providers Care Alteration Specialist Name Role Phone SUNG VAIL MD PCP SUNG VAIL Attphys Unavailable [place] CAZARES Attphys Unavailable HUNTER HEARD Attphys Unavailable TIMPETRONA SCaleb MARIIA Attphys Unavailable PETRA GRIMALDO Attphys Unavailable Escobar NOVOA Attphys Unavailable DILLAN FAUSTIN Attphys Unavailable SUNG VAIL Admphys Unavailable [place] CAZARES Admphys Unavailable DILLAN, PETRA Admphys Unavailable FAUSTINDILLAN Admphys Unavailable Payers Payer Name Policy Type Policy Number Effective Date Expiration Date Rosendo tripathi [facility] Plus [id number] 2018 00:00:00 [facility] [id number] 2018 00:00:00 [facility] Plus [id number] 2018 00:00:00 [facility] Medicare A & B [id number] 2018 00:00:00 [facility] Plus [id number] 2018 00:00:00 [facility] Medicare A & B [id number] 2018 00:00:00 [facility] Plus [id number] 2018 00:00:00 [facility] Medicare A & B [id number] 2018 00:00:00 [facility] Plus [id number] 2018 00:00:00 [facility] Medicare A & B [id number] 2018 00:00:00 [facility] [id number] 2018 00:00: 00 [facility] [id number] 2018 00:00: 00 [facility] [id number] 2018 00:00: 00 [facility] Problems Condition Name Condition Details Condition Category Status Onset Date Resolution Date Last Treatment Date Treating Clinician Comments Source Hyperlipidemia Hyperlipidemia Problem Active 2018-12-26 00:00:00 [facility] Chronic kidney disease Chronic Kidney Disease Problem Active 2018-07-31 00:00:00 [facility] Dependence on hemodialysis Dependence on Hemodialysis Problem Active 2018-07-31 00:00:00 [facility] Type II diabetes mellitus uncontrolled Type II Diabetes Val itus Uncontrolled Problem Active 2018-06-17 00:00:00 [facility] Hypertensive disorder Hypertensive Disorder Problem Active 201 12-30-17 00:00:00 [facility] ractice Congestive heart failure Congestive Heart Failure Problem Acti ve 2018-06-17 00:00:00 [facility] History of alcohol abuse History of Alcohol Abuse Problem Acti ve 2018-06-17 00:00:00 [facility] Diabetic foot ulcer Diabetic foot ulcer Disease Active 2015-09-24 00:00 :00 Keith Anabaptist Chronic osteomyelitis of right foot Chronic osteomyelitis of rig ht foot Disease Active 2015-09-24 00:00:00 Ambika best Anabaptist Diabetes mellitus type II, controlled Diabetes mellitus type II, controlled Disease Active 2015-09-24 00:00:00 Keith Arteaga Cellulitis of foot without toes, right Cellulitis of foot wi thout toes, right Disease Active 2015-09-24 00:00:00 Keith Arteaga Pulmonary edema Pulmonary Edema Problem Active [facility] End-stage renal disease End-stage Renal Disease Problem Active [facility] Anemia Anemia Problem Active [facility] End stage renal failure on dialysis ESRD (end stage renal di sease) on dialysis Problem Active [facility] Pleural effusion Pleural effusion Problem Active [facility] Pneumonia Pneumonia Problem Active [facility] Hypertensive urgency Hypertensive urgency Problem Active [facility] FEVER, UNSPECIFIED Problem Active [facility] Malignant hypertensive urgency Hypertensive urgency, malignant Proble m Active [facility] Hypervolemia Volume overload Problem Active [facility] Allergies, Adverse Reactions, Alerts Allergy Name Allergy Type Status Severity Reaction(s) Onset Date Inacti ve Date Treating Clinician Comments Source No Known Allergies DA Active U 2019-08-23 00:00:00 [facility] No Known Allergies DA Active U 2018-09-19 00:00:00 [facility] Family History Family Member Diagnosis Comments Start Date Stop Date Source Natural brother Diabetes type II Jose Eduardo Arteaga Natural brother Hypertension Keith Arteaga Natural mother Diabetes type II Freddie felipe Anabaptist Social History Social Habit Start Date Stop Date Quantity Comments Source Sex Assigned At Jose Eduardo Arteaga Alcohol intake 2015-11-10 00:00:00 2015-11-10 00:00:00 Current drinker of alcohol (finding) Keith Arteaga Smoking Status Start Date Stop Date Source Former Smoker [facility] Never smoker Keith Iverson t Medications Ordered Medication Name Filled Medication Name Start Date Stop Da te Current Medication? Ordering Clinician Indication Dosage Frequency Signature (SIG) Comments Components Source Albumin 25% 12.5GM 50ML 0.25 Gm/Ml Inj, 25 Gm Intraven Albumin 25% 12.5GM 50ML 0.25 Gm/Ml Inj, 25 Gm Intraven 2019-06-04 00:00:00 2019-08-12 00:00:00 No Ambar Yitbarek Dog Barber 25 As Needed as needed for Bp Support Dur ing Dialysis [facility] Nifedipine (Nifedipine Er) 30 Mg Tab.er.24, 30 Mg Oral Nifedipine (Nifedipine Er) 30 Mg Tab.er.24, 30 Mg Oral 2019-06-04 00:00:00 2019-08-12 00:00:00 Winnie Cabral Dog Barber 30 Bedtime [facility] Sucralfate (Carafate) 1 Gm Tablet, 1 Gm Oral Sucralfat e (Carafate) 1 Gm Tablet, 1 Gm Oral 2019-06-04 00:00:00 2019-08-12 00:00:00 Winnie Cabral Np 1 Before Meals And At Bedtime [facility] Ciprofloxacin Hcl (Cipro) 500 Mg Tablet, 250 Mg Oral C iprofloxacin Hcl (Cipro) 500 Mg Tablet, 250 Mg Oral 2018-10-02 00:00:00 2019-06-04 00:00:00 Winnie Grimaldo Md 250 Every 12 Hours [facility] Doxazosin Mesylate (Cardura) 8 Mg Tablet, 8 Mg Oral Do xazosin Mesylate (Cardura) 8 Mg Tablet, 8 Mg Oral 2018-07-14 00:00:00 2019-06-04 00:00:00 Winnie Borrego Np 8 Twice A Day [facility] Folic Acid 1 Mg Tablet, 1 Mg Oral Folic Acid 1 Mg Tablet, 1 Mg Oral 2018-07-11 00:00:00 2019-08-12 00:00:00 Winnie Borrego Np 1 Daily [facility] Hydralazine Hcl 25 Mg Tab, 25 Mg Oral Hydralazine Hcl 25 Mg Tab, 25 Mg Oral 2018-07-11 00:00:00 2019-06-04 00:00:00 Winnie Borrego Np 25 Twice A Day [facility] Losartan Potassium (Cozaar) 100 Mg Tablet, 50 Mg Oral Losartan Potassium (Cozaar) 100 Mg Tablet, 50 Mg Oral 2018-07-11 00:00:00 2019-06-04 00:00:00 Winnie Borrego Np 50 Twice A Day [facility] Metoprolol Tartrate (Lopressor) 25 Mg Tab, 25 Mg Oral Metoprolol Tartrate (Lopressor) 25 Mg Tab, 25 Mg Oral 2018-07-11 00:00:00 2019-06-04 00:00:00 No Yaneli Borrego Dog Barber 25 Every 12 Hours [facility] Nifedipine (Nifedipine Er) 30 Mg Tab.er.24, 60 Mg Oral Nifedipine (Nifedipine Er) 30 Mg Tab.er.24, 60 Mg Oral 2018-07-11 00:00:2019-06-04 00:00:00 No Yaneli Borrego Dog Barber 60 Bedtime [facility] Basaglar KwikPen U-100 Insulin 100 unit/ mL (3 mL) subcutaneous Inject 2 units every day by subcutaneous route as directed for 30 days. Basaglar KwikPen U-100 Insulin 100 unit/mL (3 mL) subcutaneous Inject 2 units every day by subcutaneous route as directed for 30 days. No Basaglar KwikPen U-100 Insulin 100 unit/mL (3 mL) subcutaneous Inject 2 units every day by subcutaneous route as directed for 30 days. [facility] calcium acetate 667 mg capsule Take one capsule by sarah th three times a day calcium acetate 667 mg capsule Take one capsule by mouth three times a day No calcium acetate 667 mg capsule Take one capsule by mouth three times a [facility] 1 mg tablet Take 1 tablet every day by oral route for 90 days. folic acid 1 mg tablet Take 1 tablet every day by oral route for 90 days. No folic acid 1 mg tablet Take 1 tablet every day by oral route for 90 days. [facility] furosemide 40 mg tablet furosemide 40 mg tablet No furosemide [address] [facility] mg capsule gabapentin 100 mg capsule No gabapentin [address] [facility]ets 33 gauge lancets 33 gauge No lancet s 33 gauge [facility] losartan 50 mg tablet Take 1 tablet ever y day by oral route as directed for 90 days. losartan 50 mg tablet Take 1 tablet ever y day by oral route as directed for 90 days. No losartan 50 mg tablet Take 1 tablet every day by oral route as directed for 90 days. [facility] minoxidil 10 mg tablet Take 1 tablet pascual day by oral route as directed for 30 days. minoxidil 10 mg tablet Take 1 tablet pascual ry day by oral route as directed for 30 days. No 1 Q1D minoxidil 1 0 mg tablet Take 1 tablet every day by oral route as directed for 30 days. [facility] moxifloxacin 0.5 % eye drops NOT USING RX YET moxiflox acin 0.5 % eye drops NOT USING RX YET No moxifloxacin 0.5 % eye dr ops NOT USING RX YET [facility] nifedipine ER 60 mg tablet,extended rele ase Take 1 tablet every day by oral route. nifedipine ER 60 mg tablet,extended rele ase Take 1 tablet every day by oral route. No 1 Q1D nifedipine E R 60 mg tablet,extended release Take 1 tablet every day by oral route. [facility] prednisolone acetate 1 % eye drops,suspension NOT USIN G RX YET prednisolone acetate 1 % eye drops,suspension NOT USING RX YET No prednisolone acetate 1 % eye drops,suspension NOT USING RX YET [facility] rosuvastatin 5 mg tablet Take 1 tablet every day by or al route as directed. rosuvastatin 5 mg tablet Take 1 tablet every day by oral route as directed. No 1 Q1D rosuvastatin 5 mg tablet Take 1 tablet every day by oral route as directed. [facility] True Metrix Glucose Test Strip use once daily in the m orning True Metrix Glucose Test Strip use once daily in the morning No True Metrix Glucose Test Strip use once daily in the morning [facility] Acetaminophen With Codeine (Tylenol With Codeine #3 Ta blet) 1 Each Tablet Acetaminophen With Codeine (Tylenol With Codeine #3 Tablet) 1 Each Tablet Yes 300 Every 6 Hours as needed for Moderate Rai n (4-6) [facility] Clonidine Hcl 0.1 Mg Tablet Clonidine Hcl 0.1 Mg Tablet Yes 1 Three Times A Day [facility] Lidocaine Patch Lidocaine Patch Yes 4 Daily [facility] Losartan Potassium 100 Mg Tablet Losartan Potassium 100 Mg Tablet Yes 100 Daily [facility] Megestrol Acetate 400 Mg/10 Ml Oral.susp Megestrol Demetrius kline 400 Mg/10 Ml Oral.susp Yes 400 Daily [facility] Metoprolol Succinate 50 Mg Tab.er.24h Metoprolol Succinate 50 Mg Ta b.er.24h Yes 50 Daily [facility] Nifedipine (Procardia Xl) 30 Mg Tab.er.24 Nifedipine ( Procardia Xl) 30 Mg Tab.er.24 Yes 30 Twice A Day [facility] Tizanidine Hcl 4 Mg Tablet Tizanidine Hcl 4 Mg Tablet Yes 4 Bedtime [facility] Tramadol Hcl (Ultram 50MG*) 50 Mg Tab Tramadol Hcl (Ultram 50MG*) 5 0 Mg Tab Yes 50 Every 8 Hours as needed for Moderate Rai n (4-6) [facility] Calcium Acetate 667 Mg Capsule, 667 Mg Oral Calcium Ac etate 667 Mg Capsule, 667 Mg Oral 2019-08-12 00:00:00 No 667 Three Times A Da y [facility] Rosuvastatin Calcium (Crestor) 5 Mg Tablet, 5 Mg Oral Rosuvastatin Calcium (Crestor) 5 Mg Tablet, 5 Mg Oral 2019-08-12 00:00:00 No 5 Twice A Day [facility] Sodium Bicarbonate 650 Mg Tablet, 650 Mg Oral Sodium B icarbonate 650 Mg Tablet, 650 Mg Oral 2019-08-12 00:00:00 No 650 Twice A Day [facility] Furosemide (Lasix) 40 Mg Tablet, 40 Mg Oral Furosemide (Lasix) 40 Mg Tablet, 40 Mg Oral 2019-06-04 00:00:00 No 40 Daily [facility] Minoxidil 10 Mg Tablet, 10 Mg Oral Minoxidil 10 Mg Tablet, 10 Mg Oral 2019-06-04 00:00:00 No 10 Daily [facility] Lisinopril 10 Mg Tablet, 10 Mg Oral Lisinopril 10 Mg Tablet, 10 Mg Oral 2018-07-11 00:00:00 No 10 Daily [facility] Metoprolol Tartrate (Lopressor) 25 Mg Tab, 100 Mg Oral Metoprolol Tartrate (Lopressor) 25 Mg Tab, 100 Mg Oral 2018-07-11 00:00:00 No 100 Twice A Day [facility] Nifedipine (Procardia Xl) 60 Mg Tab.er.24, 60 Mg Oral Nifedipine (Procardia Xl) 60 Mg Tab.er.24, 60 Mg Oral 2018-07-11 00:00:00 No 60 Daily [facility] Immunizations Ordered Immunization Name Filled Immunization Name Date Status Comments Source influenza, injectable, quadrivalent influenza, injectable, q uadrivalent 2019-02-11 00:00:00 Completed [facility] ice pneumococcal polysaccharide PPV23 pneumococcal polysaccharid e PPV23 2018-06-28 00:00:00 Completed [facility] ice Pneumococcal Conjugate 13-Valent 2015-10-03 00:00:00 Compl eted Keith [facility]ab[facility]ist Vital Signs Vital Name Observation Time Observation Value Comments Source BP Diastolic 2019-02-25 00:00:00 60 mm[Hg] [facility] Height 2019-02-25 00:00:00 68.3 [in_i] [facility] BMI (Body Mass Index) 2019-02-25 00:00:00 20.5 kg/m2 [facility] BP Systolic 2019-02-25 00:00:00 130 mm[Hg] [facility] Body Weight 2019-02-25 00:00:00 136 [lb_av] [facility] BP Diastolic 2018-12-26 00:00:00 54 mm[Hg] [facility] Height 2018-12-26 00:00:00 68.3 [in_i] [facility] BMI (Body Mass Index) 2018-12-26 00:00:00 22.2 kg/m2 [facility] BP Systolic 2018-12-26 00:00:00 124 mm[Hg] [facility] Body Weight 2018-12-26 00:00:00 147.4 [lb_av] [facility] BP Diastolic 2018-11-21 00:00:00 50 mm[Hg] [facility] Height 2018-11-21 00:00:00 68.3 [in_i] [facility] BMI (Body Mass Index) 2018-11-21 00:00:00 21.8 kg/m2 [facility] BP Systolic 2018-11-21 00:00:00 130 mm[Hg] [facility] Body Weight 2018-11-21 00:00:00 144.6 [lb_av] [facility] BP Diastolic 2018-11-07 00:00:00 48 mm[Hg] [facility] Height 2018-11-07 00:00:00 68.3 [in_i] [facility] BMI (Body Mass Index) 2018-11-07 00:00:00 22.2 kg/m2 [facility] BP Systolic 2018-11-07 00:00:00 96 mm[Hg] [facility] Body Weight 2018-11-07 00:00:00 147.2 [lb_av] [facility] BP Diastolic 2018-10-24 00:00:00 54 mm[Hg] [facility] Height 2018-10-24 00:00:00 68.3 [in_i] [facility] BMI (Body Mass Index) 2018-10-24 00:00:00 22.8 kg/m2 [facility] BP Systolic 2018-10-24 00:00:00 124 mm[Hg] [facility] Body Weight 2018-10-24 00:00:00 151 [lb_av] [facility] BP Diastolic 2018-10-15 00:00:00 58 mm[Hg] [facility] Height 2018-10-15 00:00:00 68.3 [in_i] [facility] BMI (Body Mass Index) 2018-10-15 00:00:00 22.8 kg/m2 [facility] BP Systolic 2018-10-15 00:00:00 118 mm[Hg] [facility] Body Weight 2018-10-15 00:00:00 151 [lb_av] [facility] BP Diastolic 2018-08-14 00:00:00 64 mm[Hg] [facility] Height 2018-08-14 00:00:00 68.3 [in_i] [facility] BMI (Body Mass Index) 2018-08-14 00:00:00 19.9 kg/m2 [facility] BP Systolic 2018-08-14 00:00:00 134 mm[Hg] [facility] Body Weight 2018-08-14 00:00:00 132 [lb_av] [facility] BP Diastolic 2018-08-07 00:00:00 60 mm[Hg] [facility] Height 2018-08-07 00:00:00 68.3 [in_i] [facility] BMI (Body Mass Index) 2018-08-07 00:00:00 19.1 kg/m2 [facility] BP Systolic 2018-08-07 00:00:00 110 mm[Hg] [facility] Body Weight 2018-08-07 00:00:00 127 [lb_av] [facility] BP Diastolic 2018-07-31 00:00:00 80 mm[Hg] [facility] Height 2018-07-31 00:00:00 68.3 [in_i] [facility] BMI (Body Mass Index) 2018-07-31 00:00:00 19.4 kg/m2 [facility] BP Systolic 2018-07-31 00:00:00 154 mm[Hg] [facility] Body Weight 2018-07-31 00:00:00 128.4 [lb_av] [facility] BP Diastolic 2018-06-17 00:00:00 94 mm[Hg] [facility] Height 2018-06-17 00:00:00 68.3 [in_i] [facility] BMI (Body Mass Index) 2018-06-17 00:00:00 24.2 kg/m2 [facility] BP Systolic 2018-06-17 00:00:00 170 mm[Hg] [facility] Body Weight 2018-06-17 00:00:00 160.8 [lb_av] [facility] Procedures Procedure Date / Time Performed Performing Clinician [facility] e Computed tomography of brain without radiopaque contrast 202 00:00:00 GERMAIN ARNETT [facility] Computed tomography of brain without radiopaque contrast 202 00:00:00 SHELLY HOOPER [facility] Thoracentesis with ultrasound guidance 2019-07-28 00:00:00 MARILIN PELAEZ [facility] DRAINAGE OF LEFT PLEURAL CAVITY, PERCUTANEOUS APPROACH 07-27 00:00:00 KEVIN BANDA [facility] PERFORMANCE OF URINARY FILTRATION, <6 HRS/DAY 2019-07-25 00:00:0 0 KIMANI MENON [facility] TRANSFUSE NONAUT RED BLOOD CELLS IN CENTRAL VEIN, PERC 07-10 00:00:00 GERSON ORTIZ [facility] EXCISION OF STOMACH, PYLORUS, ENDO, DIAGN 2019-07-09 00:00:00 SHAGUFTA MAN REGGIE [facility] EXTRACTION OF ESOPHAGUS, ENDO, DIAGN 2019-07-09 00:00:00 GENNA REGGIE [facility] PERFORMANCE OF URINARY FILTRATION, <6 HRS/DAY 2019-07-07 00:00:0 0 [facility] PERFORMANCE OF URINARY FILTRATION, <6 HRS/DAY 2019-06-04 00:00:0 0 [facility] PERFORMANCE OF URINARY FILTRATION, <6 HRS/DAY 2019-06-02 00:00:0 [facility], two views 2019-06-01 00:00:00 KEN SCOTT [facility] PERFORMANCE OF URINARY FILTRATION, <6 HRS/DAY 2019-05-30 00:00:0 0 [facility] PERFORMANCE OF URINARY FILTRATION, <6 HRS/DAY 2019-05-28 00:00:0 0 [facility] Computed tomography of chest without contrast 2019-05-26 00: 00[facility] [facility] PERFORMANCE OF URINARY FILTRATION, <6 HRS/DAY 2019-05-26 00:00:0 0 [facility] PERFORMANCE OF URINARY FILTRATION, <6 HRS/DAY 2019-05-23 00:00:0 0 [facility] X-ray of chest, two views 2019-05-22 00:00:00 OZZY [facility] PERFORMANCE OF URINARY FILTRATION, <6 HRS/DAY 2019-05-21 00:00:0 0 [facility] X-ray of chest, two views 2019-05-20 00:00:00 KEN SCOTT CH [facility] Ultrasound guidance for vascular access 2019-05-20 00:00:00 ORTIZ [facility] INSERTION OF INFUSION DEV INTO SUP VENA CAVA, PERC APPROACH 2019-05-20 00:00:00 SOLO [facility] ULTRASONOGRAPHY OF SUPERIOR VENA CAVA, GUIDANCE 2019-05-20 00:00 :00 SOLO [facility] PERFORMANCE OF URINARY FILTRATION, <6 HRS/DAY 2019-05-20 00:00:0 0 [facility] EXCISION OF R FOOT SUBCU/FASCIA, OPEN APPROACH 2019-05-18 00:00: 00 CORRYFIGUEROAMOLIAN [facility] EXCISION OF RIGHT PLEURA, ENDO, DIAGN 2019-05-15 [facility] WITH DRAINAGE DEVICE, ENDO 00:00:[address] [facility] RELEASE RIGHT LUNG, OPEN APPROACH 2019-05-15 00:00:00 [facility] PERFORMANCE OF URINARY FILTRATION, <6 HRS/DAY 2019-05-14 00:00:0 0 [facility] Thoracentesis with ultrasound guidance 2019-05-12 00:00:00 [facility] Computed tomography of chest without contrast 2019-05-12 00: 00:00 EDIN FARIRE [facility] PERFORMANCE OF URINARY FILTRATION, <6 HRS/DAY 2019-05-12 00:00:0 [address] [facility] [address] of abdomen and pelvis without contrast 2019-05-11 00:00:00 SHAGUFTA MAN [facility] Thoracentesis with ultrasound guidance 2019-05-09 00:00:00 NIURKA FRIEND [facility] X-ray of chest, single view 2019-05-09 00:00:00 BRETT CAZARES [facility] DRAINAGE OF R PLEURAL CAV WITH DRAIN DEV, PERC APPROACH 2019 00:00:00 [facility] EXCISION OF STOMACH, ENDO, DIAGN 2019-05-09 00:00:00 BRENTON VAIL [facility] EXCISION OF STOMACH, PYLORUS, ENDO, DIAGN 2019-05-09 00:00:00 EAGLE DONOVAN [facility] PERFORMANCE OF URINARY FILTRATION, <6 HRS/DAY 2019-05-08 00:00:0 0 GERSON ORTIZ [facility] TRANSFUSE NONAUT RED BLOOD CELLS IN PERIPH VEIN, PERC 05-08 00:00:00 NIURKA FRIEND [facility] X-ray of chest, two views 2019-05-07 00:00:00 NIURKA FRIEND CH I [facility] X-ray of chest, single view 2019-03-24 00:00:00 HUNTER HEARD [facility] electrocardiogram 2018-12-26 00:00:[address] [facility] Fistula Cannulation Set, Ea 2018-04-30 00:00:00 [facility] Amputation of [facility]e [facility] Plan [facility] Care Planned Activity Planned Date Details Comments Source Future Scheduled Test 2019-11-29 00:00:00 INFLUENZA VACCINE [code = INFLUENZA VACCINE] [facility] Future Scheduled Test 2009-12-04 00:00:00 COLONOSCOPY SCREEN ING [code = COLONOSCOPY SCREENING] [facility] Future Scheduled Test 2009-12-04 00:00:00 SHINGLES VACCINES (#1) [code = SHINGLES VACCINES (#1)] [facility] Future Scheduled Test 1969-12-04 00:00:00 DIABETIC FOOT EXAM [code = DIABETIC FOOT EXAM] [facility] Future Scheduled Test 1960 00:00:00 DIABETIC RETINAL E YE EXAM [code = DIABETIC RETINAL EYE EXAM] [facility] Encounters Start Date/Time End Date/Time Encounter Type Admission Type Attendi [facility] Facility Care Department Encounter ID Source 2019-08-13 00:11:00 2019-08-20 17:37:00 Discharged Inpatient 1 AYAKA VAILAUGUST [facility] [id number] [facility] 2019-07-26 11:58:00 2019-07-29 14:01:00 Discharged Inpatient 1 [facility] [id number] [facility] 2019-07-06 15:53:00 2019-07-14 19:04:00 Discharged Inpatient 1 BRETT CAZARES [facility] [id number] [facility] 2019-05-07 18:27:00 2019-06-04 20:58:00 Discharged Inpatient 1 BRETT CAZARES [facility] [id number] [facility] 2019-03-24 15:49:00 2019-03-24 19:20:00 Departed Emergency Room 1 HUNTER HEARD [facility] [id number] [facility] 2019-02-25 00:00:00 2019-02-25 00:00:00 Kiran milton MD: [place] [address], Ph. [facility] [id number] [facility] 2018-12-26 00:00:00 2018-12-26 00:00:00 Kiran milton MD: [place] [address], Ph. [facility] [id number] [facility] 2018-11-21 00:00:00 2018-11-21 00:00:00 Kiran milton MD: [place] [address], Ph. [facility] [id number] [facility] 2018-11-07 00:00:00 2018-11-07 00:00:00 Kiran milton MD: [place] [address], Ph. [facility] [id number] [facility] 2018-10-24 00:00:00 2018-10-24 00:00:00 Kiran milton MD: [place] [address], Ph. [facility] - [facility] [id number] [facility] 2018-10-15 00:00:00 2018-10-15 00:00:00 Kiran milton MD: [address] [place] [address], Ph. [facility] - [facility] [id number] [facility] 2018-09-28 06:57:00 2018-10-03 09:49:00 Discharged Inpatient 1 PETRA GRIMALDO [facility] [id number] [facility] 2018-08-14 00:00:00 2018-08-14 00:00:00 Kiran milton MD: [address] [place] [address], Ph. [facility] [id number] [facility] 2018-08-07 00:00:00 2018-08-07 00:00:00 Kiran milton MD: [address] [place] [address], Ph. [facility] - [facility] [id number] [facility] 2018-07-31 00:00:00 2018-07-31 00:00:00 Kiran milton MD: [address] [place] [address], Ph. [facility] [id number] [facility] 2018-07-11 18:26:00 2018-07-14 18:21:00 Discharged Inpatient 1 AISHA NOVOA [facility] [id number] [facility] 2018-06-17 22:58:00 2018-07-01 18:43:00 Discharged Inpatient 1 DILLAN FAUSTIN [facility] [id number] [facility] 2018-06-17 00:00:00 2018-06-17 00:00:00 Kiran milton MD: [address] [place] [address], Ph. [facility] - [facility] [id number] [facility] Results Test Description Test Time Test Comments Results Result Comments Source GLUBED 2019-08-31 07:56:00 Test Item GLUBED (test code = GLUBED) 219 mg/dL 74-106 H Performed by certified pearl glue operator at [facility] [id number] 20:49:00* Test Item Value Reference Range Interpretation Comments GLUBED (test code = GLUBED) 131 mg/dL 74-106 H [facility] [id number] 17:25:00* Test Item Value Reference Range Interpretation Comments GLUBED (test code = GLUBED) 268 mg/dL 74-106 H Performed by certified pearl glue operator at [facility] [id number] 12:12:00* Test Item Value Reference Range Interpretation Comments GLUBED (test code = GLUBED) 192 mg/dL 74-106 H [facility]l [facility] [id number] 08:05:00* Test Item Value Reference Range Interpretation Comments GLUBED (test code = GLUBED) 136 mg/dL 74-106 H [facility]l [facility] [id number] 20:46:00* Test Item Value Reference Range Interpretation Comments GLUBED (test code = GLUBED) 290 mg/dL 74-106 H Performed by certified pearl glue operator at [facility] [id number] 16:35:00* Test Item Value Reference Range Interpretation Comments GLUBED (test code = GLUBED) 176 mg/dL 74-106 H [facility]l [facility] [id number] 15:48:00* Test Item Value Reference Range Interpretation Comments VANCOMYCIN (test code = VANCO) 14.6 UG/ML 5.0-45.0 N [id number] 08:20:00* Test Item Value Reference Range Interpretation Comments GLUBED (test code = GLUBED) 197 mg/dL 74-106 H [facility]l [facility] BASIC METABOLIC [id number] 06:12:00* Test Item Value Reference Range Interpretation Comments SODIUM (test code = NA) 138 mmol/L 136-145 N POTASSIUM (test code = K) 4.8 mmol/L 3.5-5.1 N CHLORIDE (test code = CL) 97.0 mmol/L 98-107 L CARBON DIOXIDE (test code = CO2) 25.0 mmol/L 21-32 N ANION GAP (test code = GAP) 20.8 10-20 H GLUCOSE (test code = GLU) 116 mg/dL 74-106 H BLOOD UREA NITROGEN (test code = BUN) 97 mg/dL 7-18 H GLOMERULAR FILTRATION RATE (test code = GFR) 10 mL/min >=60 Estimated GFR by using Modified MDRD formula.Chronic kidney disease is defined as either kidney damageor GFR <60 mL/min/1.73 m2 for >3 months. CREATININE (test code = CREAT) 5.70 mg/dL 0.7-1.3 H BUN/CREATININE RATIO (test code = BUN/CREA) 17.0 10-20 N CALCIUM (test code = CA) 8.3 mg/dL 8.5-10.1 L [id number] 05:55:00* Test Item Value Reference Range Interpretation Comments VANCOMYCIN (test code = VANCO) 24.8 UG/ML 5.0-45.0 N CBC W/AUTO [id number] 05:22:00* Test Item Value Reference Range Interpretation Comments WHITE BLOOD CELL (test code = WBC) 12.3 K/mm3 4.5-12.5 N RED BLOOD CELL (test code = RBC) 3.22 mill/mm3 4.0-5.8 L HEMOGLOBIN (test code = HGB) 9.2 gram/dL 13.0-17.5 L HEMATOCRIT (test code = HCT) 29.3 % 42.0-52.0 L MEAN CELL VOLUME (test code = MCV) 91.0 fL 80-98 N MEAN CELL HGB (test code = MCH) 28.6 picogram 27.0-33.0 N MEAN CELL HGB CONCETRATION (test code = MCHC) 31.4 gram/dL 33.0-36. 0 L RED CELL DISTRIBUTION WIDTH (test code = RDW) 17.6 % 11.6-16. 2 H RED CELL DISTRIBUTION WIDTH SD (test code = RDW-SD) 59.1 fL 37 .0-51.0 H PLATELET COUNT (test code = PLT) 286 K/mm3 150-450 N MEAN PLATELET VOLUME (test code = MPV) 11.4 fL 6.7-11.0 H NEUTROPHIL % (test code = NT%) 76.1 % 39.0-69.0 H IMMATURE GRANULOCYTE % (test code = IG%) 0.3 % 0.0-5.0 N LYMPHOCYTE % (test code = LY%) 7.3 % 25.0-55.0 L MONOCYTE % (test code = MO%) 5.5 % 0.0-10.0 N EOSINOPHIL % (test code = EO%) 10.1 % 0.0-5.0 H BASOPHIL % (test code = BA%) 0.7 % 0.0-1.0 N NUCLEATED RBC % (test code = NRBC%) 0.0 % 0-0 N NEUTROPHIL # (test code = NT#) 9.35 K/mm3 1.8-7.7 H IMMATURE GRANULOCYTE # (test code = IG#) 0.04 x10 3/uL 0-0.03 H LYMPHOCYTE # (test code = LY#) 0.90 K/mm3 1.0-5.0 L MONOCYTE # (test code = MO#) 0.68 K/mm3 0-0.8 N EOSINOPHIL # (test code = EO#) 1.24 K/mm3 0.0-0.5 H BASOPHIL # (test code = BA#) 0.08 K/mm3 0.0-0.2 N NUCLEATED RBC # (test code = NRBC#) 0.00 K/mm3 0.0-0.1 N MANUAL DIFF REQUIRED (test code = MDIFF) NO [id number] 21:41:00* Test Item Value Reference Range Interpretation Comments GLUBED (test code = GLUBED) 319 mg/dL 74-106 H Performed by certified pearl glue operator at [facility] PLEURAL [id number] 17:03:00 RUN DATE: 08/28/19 [facility] PAGE 1 RUN TIME: 1703 Specimen Inqui ry RUN USER: INTERFACE PATIENT: JOSHUA CACERES ACCT #: [id number] [facility] #: [id number] AGE/SX: 58/M ROOM: [facility] RE08/23/19REG DR: Sung Vail MD : 58 BED: A DIS: STATUS: ADM IN TLOC: SPEC #: [id number] RECD: 08/26/19 STATUS: SHIRA REQ #: [id number] MARY: 08/26/19- SUBM DR: Sung Vail MD ENTERED: 08/26/19 SP TYPE: PLEURAL FL OTHR DR: Winnie Shauna benjy or Family Physician Kiran Lizama MD, Muhammad MD Khan,Gerson Meier MD, MDORDERED: GROSS COPIES TO: No Primary [place] [address] [place] [address] [email or web address] Edin Fraire MD [address] [place] [address] Sung Vail MD [address] [facility] [address] [place] [address] Hodan Ortiz MD [address] [facility] [address] [place] [address] Gerson Ortiz MD [address] [address] PROCEDURES: GROSS (08/28/19-134) TISSUES: PLEURAL FLUID, NOS CONTINUED ON NEXT PAGE RUN DATE: 08/28/19 [facility] - [facility] PAGE 2 RUN TIME: 1703 Specimen Inquiry RUN USER: INTERFACE SPEC #: [id number] PATIENT : JOSHUA CACERESE #[id number] (Continued) CLINICAL HISTORY COLLECTION DATE: 08/26/19 PLEURAL EFFUSION FIN AL DIAGNOSIS Left pleural fluid, thoracentesis: NEGATIVE FOR MALIGNANC Y INCREASED MACROPHAGES, FEW MIXED INFLAMMATORY CELLS, RED BLOOD CELLS RRB/keerthi D 43589, 05844 MACROSCOPIC The specimen is designated as "left pleural fluid". It consists of 7 cc of yellow fluid for concentration and evaluation. GROSS PERFORMED AT [facility] [address] [place] [address] [phone] MICROSCOPIC Two smear slides, a cytospin an d cell block are prepared from the fluid. All of the stains, including any co ntrols performed, stain appropriately. MICROSCOPIC PERFORMED AT [facility] [address] [place] [address] [phone] PERFORMING SITE Diagnosis performed at: [facility] [address] [facility] [place] [address] CONTINUED ON NEXT PAGE RUN DATE: [facility] - [facility] PAGE 3 R UN TIME: 1703 Specimen Inquiry RUN USER: INTERFACE ----- -------SPEC #: [id number] PATIENT: JOSHUA CACERES #[id number] (Continued) Signed SIGNATURE ON FILE Galdino Mruo MD 08/28/19 1703 END OF REPORT [id number] 16:03:00* Test Item Value Reference Range Interpretation Comments GLUBED (test code = GLUBED) 106 mg/dL 74-106 N [facility] [id number] 12:02:00* Test Item Value Reference Range Interpretation Comments GLUBED (test code = GLUBED) 285 mg/dL 74-106 H [facility] certified pearl glue [facility] [id number] 08:07:00* Test Item Value Reference Range Interpretation Comments GLUBED (test code = GLUBED) 122 mg/dL 74-106 H [facility] by certified pearl glue [facility] CBC W/AUTO [id number] 05:43:00* Test Item Value Reference Range Interpretation Comments WHITE BLOOD CELL (test code = WBC) 11.4 K/mm3 4.5-12.5 N RED BLOOD CELL (test code = RBC) 3.47 mill/mm3 4.0-5.8 L HEMOGLOBIN (test code = HGB) 9.9 gram/dL 13.0-17.5 L HEMATOCRIT (test code = HCT) 30.8 % 42.0-52.0 L MEAN CELL VOLUME (test code = MCV) 88.8 fL 80-98 N MEAN CELL HGB (test code = MCH) 28.5 picogram 27.0-33.0 N MEAN CELL HGB CONCETRATION (test code = MCHC) 32.1 gram/dL 33.0-36. 0 L RED CELL DISTRIBUTION WIDTH (test code = RDW) 17.7 % 11.6-16. 2 H RED CELL DISTRIBUTION WIDTH SD (test code = RDW-SD) 58.5 fL 37 .0-51.0 H PLATELET COUNT (test code = PLT) 245 K/mm3 150-450 N MEAN PLATELET VOLUME (test code = MPV) 11.2 fL 6.7-11.0 H NEUTROPHIL % (test code = NT%) 73.5 % 39.0-69.0 H IMMATURE GRANULOCYTE % (test code = IG%) 0.4 % 0.0-5.0 N LYMPHOCYTE % (test code = LY%) 8.0 % 25.0-55.0 L MONOCYTE % (test code = MO%) 9.6 % 0.0-10.0 N EOSINOPHIL % (test code = EO%) 7.6 % 0.0-5.0 H BASOPHIL % (test code = BA%) 0.9 % 0.0-1.0 N NUCLEATED RBC % (test code = NRBC%) 0.0 % 0-0 N NEUTROPHIL # (test code = NT#) 8.34 K/mm3 1.8-7.7 H IMMATURE GRANULOCYTE # (test code = IG#) 0.05 x10 3/uL 0-0.03 H LYMPHOCYTE # (test code = LY#) 0.91 K/mm3 1.0-5.0 L MONOCYTE # (test code = MO#) 1.09 K/mm3 0-0.8 H EOSINOPHIL # (test code = EO#) 0.86 K/mm3 0.0-0.5 H BASOPHIL # (test code = BA#) 0.10 K/mm3 0.0-0.2 N NUCLEATED RBC # (test code = NRBC#) 0.00 K/mm3 0.0-0.1 N MANUAL DIFF REQUIRED (test code = MDIFF) NO [id number] 20:25:00* Test Item Value Reference Range Interpretation Comments GLUBED (test code = GLUBED) 195 mg/dL 74-106 H [facility]l [facility] [id number] 15:52:00* Test Item Value Reference Range Interpretation Comments GLUBED (test code = GLUBED) 141 mg/dL 74-106 H Performed by certified pearl glue operator at [facility] - SP THORACENTESIS [id number] 12:47:00 Name: JOSHUA CACERES [facility] : 1960 Age/S: 58 / M [address] Unit #: [id number] Loc: [place] Age[place] [address] Phys: Sung Vail MD Acct: [id number] Dis Date: Status: ADM IN PHONE #: [phone] Exam Date: 08/26/2019 1427 FAX #: [phone] Reason: / EXAMS: CPT CODE: [id number] SP THORACENTESIS W/IMAG [id number] Fluoro Time: DAP (Gy m2): Air Kerma (mGy): EXAM: Ultrasound-guided thoracentesis; INFORMATION: End-stage renal disease; shortness of breath; pleural effusions; TECHNIQUE AND FINDINGS: After obtaining informed consent, the patient was placed in upright sitting position. Ultrasound of the chest showed a large left pleural effusion and consolidation of the left lower lobe. The patient's skin in the left posterior inferior chest region was prepped and draped in the usual sterile fashion. Xylocaine was administered and using sonographic guidance an 8 Kosovan pigtail catheter was inserted into the left pleural cavity. 1.3 L of clear yellowish pleural fluid were drained and samples were sent to the lab. The drainage catheter was then removed. No apparent complications. IMPRESSION: Successful ultrasound-guided large-volume left-sided thorac entesis. Location code: [facility] [place] ctronically Signed by Rylie Rey on 2019 at 1247 Reported and signed by: Vic Rey M.D. CC: Kiran Lizama MD; Sung Vail MD Technologist: KEN NICOLAS [employer]WORK ENGINEER Trnscb Date/Time: 08/27/2019 (4827) CarlieW Orig Print D/T: S: 08/27/2019 (1100) PAGE 1 Signed Report LIPID PROFILE (CORONARY RISK)2019-08-27 12:21:00* Test Item Value Reference Range Interpretation Comments TRIGLYCERIDES (test code = TRIG) 32 mg/dL 20-150 N CHOLESTEROL (test code = CHOL) 99 mg/dL 0-200 N CHOLESTEROL/HDL RATIO (test code = CHOLHDL) 1.0 RATIO 0-4.9 N RISK ASSOCIATED WITH CHOL/HDL RATIOS: Risk Male Female1/2 AVERAGE 3.43 3.27AVERAGE 4.97 4.442X AVERAGE 9.55 7.053X AVERAGE 23.39 11.04 REFERENCE VALUE IS RELATED TO RISK LEVELS ASRECOMMENDED BY THE SILVIA. HEART, LUNG, AND BLOOD INST. HDL CHOLESTEROL (test code = HDL) 56 mg/dL 40-60 N LIPOPROTEIN LDL (test code = LDL) 35 mg/dL 100-129 L Reference Interval: mg/dL mmol/L Optimal <100 <2.6Near/above optimal 100-129 2.6- 3.3Borderline High 130-159 3.4-4.1High 160-189 4.1-4.9Very High >=190 >=4.9========= This LDL result is a direct measurement.========= SPECIMEN COMMENTS: add to labsTHYROID STIMULATING [id number] 12:21:00* Test Item Value Reference Range Interpretation Comments THYROID STIMULATING HORMONE (test code = TSH) 1.220 uIU/mL 0.36-3.7 4 N TSH REFERENCE RANGES: EUTHYROID: 0.35 - 4.3 mIU/mL HYPO : > 5.5 mIU/mL HYPER : < 0.35 mIU/mL SPECIMEN COMMENTS: add to labsPLEURAL FLD CELL [id number] 08:45:00* Test Item Value Reference Range Interpretation Comments FLUID WBC AUTO (test code = WBCFLA) 301 cells/uL FLUID RBC AUTO (test code = RBCFLA) 1000 cells/uL FLUID TOTAL CELLS (test code = TCFL) 399 cells/uL >0 Fluid WBC RBC PMN% MN%Type cells/uL cells/uL CSF (0-5) n/a (2+/-4) (90+/-20)Peritoneal n/a n/a n/a n/aPleural n/a n/a n/a n/aSynovial <200 n/a <25% <75% CSF (0-30) n/a (4+/-4) (90+/-20) PLEURAL FLD COLOR (test code = COLPL) YELLOW PLEURAL FLD APPEARANCE (test code = APPPL) HAZY PLEURAL FLD POLY (test code = POLYPL) 5.0 % PLEURAL FLD LYMPHOCYTE (test code = LYMPHPL) 33.0 % PLEURAL FLD EOSINOPHIL (test code = EOSPL) 3.0 % PLEURAL FLD BASOPHIL (test code = BASOPL) 2.0 % PLEURAL FLD MACROPHAGE (test code = MACPL) 57.0 % TOTAL CELLS COUNTED ON DIFF (test code = TOTCELLFL) 100 cells REVIEWED BY (test code = REVIEW) GALDINO PÉREZ PATHOLOGIST REVIEWED BY GALDINO HEDRICK M.D.08/27/19 SPECIMEN COMMENTS: LEFT PLEURAL FLUIDPLEURAL FLD [id number] 08:45:00* Test Item Value Reference Range Interpretation Comments PLEURAL FLD PH (test code = PHPL) 7.0 SPECIMEN COMMENTS: LEFT PLEURAL FLUIDPLEURAL FLD [id number] 08:45:00* Test Item Value Reference Range Interpretation Comments PLEURAL FLD GLUCOSE (test code = GLUPL) 157 MG/DL SPECIMEN COMMENTS: LEFT PLEURAL FLUIDPLEURAL FLD TOTAL [id number] 08:45:00* Test Item Value Reference Range Interpretation Comments PLEURAL FLD TOTAL PROTEIN (test code = PROTPL) 4.2 gram/dL SPECIMEN COMMENTS: LEFT PLEURAL FLUIDPLEURAL FLD [id number] 08:45:00* Test Item Value Reference Range Interpretation Comments PLEURAL FLD LDH (test code = LDHPL) 182 IUnit/L SPECIMEN COMMENTS: LEFT PLEURAL FLUIDPLEURAL FLD [id number] 08:45:00 * Test Item Value Reference Range Interpretation Comments PLEURAL FLD CHOLESTEROL (test code = CHOLPL) 62 MG/DL SPECIMEN COMMENTS: LEFT PLEURAL FLUIDPLEURAL FLD [id number] 08:45:00 * Test Item Value Reference Range Interpretation Comments PLEURAL FLD TRIGLYCERIDE (test code = TRIGPL) 10 MG/DL SPECIMEN COMMENTS: LEFT PLEURAL FLUIDBASIC METABOLIC [id number] 08:28:00* Test Item Value Reference Range Interpretation Comments SODIUM (test code = NA) 135 mmol/L 136-145 L POTASSIUM (test code = K) 4.9 mmol/L 3.5-5.1 N CHLORIDE (test code = CL) 99.0 mmol/L 98-107 N CARBON DIOXIDE (test code = CO2) 24.0 mmol/L 21-32 N ANION GAP (test code = GAP) 16.9 10-20 N GLUCOSE (test code = GLU) 123 mg/dL 74-106 H BLOOD UREA NITROGEN (test code = BUN) 96 mg/dL 7-18 H GLOMERULAR FILTRATION RATE (test code = GFR) 13 mL/min >=60 Estimated GFR by using Modified MDRD formula.Chronic kidney disease is defined as either kidney damageor GFR <60 mL/min/1.73 m2 for >3 months. CREATININE (test code = CREAT) 4.80 mg/dL 0.7-1.3 H BUN/CREATININE RATIO (test code = BUN/CREA) 20.0 10-20 N CALCIUM (test code = CA) 8.3 mg/dL 8.5-10.1 L [id number] 08:01:00* Test Item Value Reference Range Interpretation Comments GLUBED (test code = GLUBED) 119 mg/dL 74-106 H Performed by certified pearl glue operator at [facility] CBC W/AUTO [id number] 07:52:00* Test Item Value Reference Range Interpretation Comments WHITE BLOOD CELL (test code = WBC) 15.1 K/mm3 4.5-12.5 H RED BLOOD CELL (test code = RBC) 3.26 mill/mm3 4.0-5.8 L HEMOGLOBIN (test code = HGB) 9.4 gram/dL 13.0-17.5 L RESULT VERIFIED BY REPEAT ANALYSIS HEMATOCRIT (test code = HCT) 28.6 % 42.0-52.0 L MEAN CELL VOLUME (test code = MCV) 87.7 fL 80-98 RESULT VERIFIED BY REPEAT ANALYSIS MEAN CELL HGB (test code = MCH) 28.8 picogram 27.0-33.0 N MEAN CELL HGB CONCETRATION (test code = MCHC) 32.9 gram/dL 33.0-36. 0 L RED CELL DISTRIBUTION WIDTH (test code = RDW) 18.2 % 11.6-16. 2 H RED CELL DISTRIBUTION WIDTH SD (test code = RDW-SD) 59.3 fL 37 .0-51.0 H PLATELET COUNT (test code = PLT) 248 K/mm3 150-450 N MEAN PLATELET VOLUME (test code = MPV) 11.4 fL 6.7-11.0 H NEUTROPHIL % (test code = NT%) 82.7 % 39.0-69.0 H IMMATURE GRANULOCYTE % (test code = IG%) 0.3 % 0.0-5.0 N LYMPHOCYTE % (test code = LY%) 5.8 % 25.0-55.0 L MONOCYTE % (test code = MO%) 7.1 % 0.0-10.0 N EOSINOPHIL % (test code = EO%) 3.6 % 0.0-5.0 N BASOPHIL % (test code = BA%) 0.5 % 0.0-1.0 N NUCLEATED RBC % (test code = NRBC%) 0.0 % 0-0 N NEUTROPHIL # (test code = NT#) 12.52 K/mm3 1.8-7.7 H IMMATURE GRANULOCYTE # (test code = IG#) 0.05 x10 3/uL 0-0.03 H LYMPHOCYTE # (test code = LY#) 0.87 K/mm3 1.0-5.0 L MONOCYTE # (test code = MO#) 1.07 K/mm3 0-0.8 H EOSINOPHIL # (test code = EO#) 0.54 K/mm3 0.0-0.5 H BASOPHIL # (test code = BA#) 0.08 K/mm3 0.0-0.2 N NUCLEATED RBC # (test code = NRBC#) 0.00 K/mm3 0.0-0.1 N CPK-MB [id number] 03:37:00* Test Item Value Reference Range Interpretation Comments CREATINE KINASE (CK) (test code = CK) 61 IUnit/L 26-208 N CKMB (test code = CKMBT) 1.7 ng/mL 0-6.0 N RELATIVE % INDEX (test code = REL%) 2.79 % 0.00-2.50 H "If the total CK is elevated, the CKMB Fraction must beinterpreted as a Relative % Index, Normal is less than 2.5%"NOTE: Relative % Index is not valid with a normal total CK. [id number] 03:37:00* Test Item Value Reference Range Interpretation Comments TROPONIN-I (test code = TROPI) 0.029 ng/mL 0-0.045 N - XR CHEST 1 [id number] 02:41:00 FAX: Kiran Matute [phone] [place]: St: ADM FAX: Sung Milan MD [phone] Name: NICKIJOSHUA QUIÑONES [facility] : 1960 Age/S: 58/M [address] [facility] Unit #: [id number] Loc: V.[address] [place] [address] Phys: Sung Vail MD Acct: [id number] Dis Date: Status: ADM IN PHONE #: [phone] Exam Date: 08/27/2019 020 FAX #: [phone] Reason: CHEST PAIN EXAMS: CPT CODE: [id number] XR CHEST 1 V [id number] AFTER HOURS SERVICE ON: 08/27/2019 2:39 AM AP Portable Chest Location Code M12 HISTORY: CHEST PAIN FINDINGS: There is a minimal increase in small less than 5% left upper lobe pneumothorax compared to prior x-ray of 08/26/2019. There is pulmonary vascular congestion. Slightly increasing right pleural effusion and alveolar infiltrate is noted in the right lung base. There is developing atelectasis in the retrocardiac region. Cardiac silhouette is enlarged. IMPRESSION: Minimal increase in small less than 5% left upper lobe pneumothorax. Slightly increasing small right pleural effusion and right basilar alveolar infiltrate. Developing retrocardiac atelectasis. Enlarged cardiac silhouette and mild pulmonary vascular congestion. at 0241 Reported and signed by: Javon Hogan M.D. CC: Kiran Lizama MD; Sung Castañeda MD Technologist: Sharon Abreu Trnscrd Date/Time/By: 08/27/2019 (0241) : By: [email or web address] Orig Print D/T: S: 08/27/2019 (0244) PAGE 1 Signed Report [id number] 20:59:00 * Test Item Value Reference Range Interpretation Comments GLUBED (test code = GLUBED) 144 mg/dL 74-106 H Performed by certified pearl glue operator at [facility] PLEURAL FLD CELL [id number] 20:15:00* Test Item Value Reference Range Interpretation Comments FLUID WBC AUTO (test code = WBCFLA) 301 cells/uL FLUID RBC AUTO (test code = RBCFLA) 1000 cells/uL FLUID TOTAL CELLS (test code = TCFL) 399 cells/uL >0 Fluid WBC RBC PMN% MN%Type cells/uL cells/uL CSF (0-5) n/a (2+/-4) (90+/-20)Peritoneal n/a n/a n/a n/aPleural n/a n/a n/a n/aSynovial <200 n/a <25% <75% CSF (0-30) n/a (4+/-4) (90+/-20) PLEURAL FLD COLOR (test code = COLPL) YELLOW PLEURAL FLD APPEARANCE (test code = APPPL) HAZY PLEURAL FLD POLY (test code = POLYPL) 5.0 % PLEURAL FLD LYMPHOCYTE (test code = LYMPHPL) 33.0 % PLEURAL FLD EOSINOPHIL (test code = EOSPL) 3.0 % PLEURAL FLD BASOPHIL (test code = BASOPL) 2.0 % PLEURAL FLD MACROPHAGE (test code = MACPL) 57.0 % TOTAL CELLS COUNTED ON DIFF (test code = TOTCELLFL) 100 cells REVIEWED BY (test code = REVIEW) PATHOLOGIST SPECIMEN COMMENTS: LEFT PLEURAL FLUIDPLEURAL FLD [id number] 20:15:00* Test Item Value Reference Range Interpretation Comments PLEURAL FLD PH (test code = PHPL) 7.0 SPECIMEN COMMENTS: LEFT PLEURAL FLUIDPLEURAL FLD [id number] 20:15:00* Test Item Value Reference Range Interpretation Comments PLEURAL FLD GLUCOSE (test code = GLUPL) 157 MG/DL SPECIMEN COMMENTS: LEFT PLEURAL FLUIDPLEURAL FLD TOTAL [id number] 20:15:00* Test Item Value Reference Range Interpretation Comments PLEURAL FLD TOTAL PROTEIN (test code = PROTPL) 4.2 gram/dL SPECIMEN COMMENTS: LEFT PLEURAL FLUIDPLEURAL FLD [id number] 20:15:00* Test Item Value Reference Range Interpretation Comments PLEURAL FLD LDH (test code = LDHPL) 182 IUnit/L SPECIMEN COMMENTS: LEFT PLEURAL FLUIDPLEURAL FLD [id number] 20:15:00 * Test Item Value Reference Range Interpretation Comments PLEURAL FLD CHOLESTEROL (test code = CHOLPL) 62 MG/DL SPECIMEN COMMENTS: LEFT PLEURAL FLUIDPLEURAL FLD [id number] 20:15:00 * Test Item Value Reference Range Interpretation Comments PLEURAL FLD TRIGLYCERIDE (test code = TRIGPL) 10 MG/DL SPECIMEN COMMENTS: LEFT PLEURAL FLUIDPLEURAL FLD CELL [id number] 16:36:00 * Test Item Value Reference Range Interpretation Comments FLUID WBC AUTO (test code = WBCFLA) 301 cells/uL FLUID RBC AUTO (test code = RBCFLA) 1000 cells/uL FLUID TOTAL CELLS (test code = TCFL) 399 cells/uL >0 Fluid WBC RBC PMN% MN%Type cells/uL cells/uL CSF (0-5) n/a (2+/-4) (90+/-20)Peritoneal n/a n/a n/a n/aPleural n/a n/a n/a n/aSynovial <200 n/a <25% <75% CSF (0-30) n/a (4+/-4) (90+/-20) PLEURAL FLD COLOR (test code = COLPL) YELLOW PLEURAL FLD APPEARANCE (test code = APPPL) HAZY TOTAL CELLS COUNTED ON DIFF (test code = TOTCELLFL) cells REVIEWED BY (test code = REVIEW) PATHOLOGIST SPECIMEN COMMENTS: LEFT PLEURAL FLUIDPLEURAL FLD [id number] 16:36:00* Test Item Value Reference Range Interpretation Comments PLEURAL FLD PH (test code = PHPL) 7.0 SPECIMEN COMMENTS: LEFT PLEURAL FLUIDPLEURAL FLD [id number] 16:36:00* Test Item Value Reference Range Interpretation Comments PLEURAL FLD GLUCOSE (test code = GLUPL) 157 MG/DL SPECIMEN COMMENTS: LEFT PLEURAL FLUIDPLEURAL FLD TOTAL [id number] 16:36:00* Test Item Value Reference Range Interpretation Comments PLEURAL FLD TOTAL PROTEIN (test code = PROTPL) 4.2 gram/dL SPECIMEN COMMENTS: LEFT PLEURAL FLUIDPLEURAL FLD [id number] 16:36:00* Test Item Value Reference Range Interpretation Comments PLEURAL FLD LDH (test code = LDHPL) 182 IUnit/L SPECIMEN COMMENTS: LEFT PLEURAL FLUIDPLEURAL FLD [id number] 16:36:00 * Test Item Value Reference Range Interpretation Comments PLEURAL FLD CHOLESTEROL (test code = CHOLPL) 62 MG/DL SPECIMEN COMMENTS: LEFT PLEURAL FLUIDPLEURAL FLD [id number] 16:36:00 * Test Item Value Reference Range Interpretation Comments PLEURAL FLD TRIGLYCERIDE (test code = TRIGPL) 10 MG/DL SPECIMEN COMMENTS: LEFT PLEURAL FLUIDPLEURAL FLD CELL [id number] 16:31:00 * Test Item Value Reference Range Interpretation Comments FLUID WBC AUTO (test code = WBCFLA) 301 cells/uL FLUID RBC AUTO (test code = RBCFLA) 1000 cells/uL FLUID TOTAL CELLS (test code = TCFL) 399 cells/uL >0 Fluid WBC RBC PMN% MN%Type cells/uL cells/uL CSF (0-5) n/a (2+/-4) (90+/-20)Peritoneal n/a n/a n/a n/aPleural n/a n/a n/a n/aSynovial <200 n/a <25% <75% CSF (0-30) n/a (4+/-4) (90+/-20) PLEURAL FLD COLOR (test code = COLPL) PLEURAL FLD APPEARANCE (test code = APPPL) PLEURAL FLD WBC (test code = WBCPL) per uL 0-1000 PLEURAL FLD RBC (test code = RBCPL) per uL 0-50 TOTAL CELLS COUNTED ON DIFF (test code = TOTCELLFL) cells REVIEWED BY (test code = REVIEW) PATHOLOGIST SPECIMEN COMMENTS: LEFT PLEURAL FLUIDPLEURAL FLD [id number] 16:31:00* Test Item Value Reference Range Interpretation Comments PLEURAL FLD PH (test code = PHPL) SPECIMEN COMMENTS: LEFT PLEURAL FLUIDPLEURAL FLD [id number] 16:31:00* Test Item Value Reference Range Interpretation Comments PLEURAL FLD GLUCOSE (test code = GLUPL) 157 MG/DL SPECIMEN COMMENTS: LEFT PLEURAL FLUIDPLEURAL FLD TOTAL [id number] 16:31:00* Test Item Value Reference Range Interpretation Comments PLEURAL FLD TOTAL PROTEIN (test code = PROTPL) 4.2 gram/dL SPECIMEN COMMENTS: LEFT PLEURAL FLUIDPLEURAL FLD [id number] 16:31:00* Test Item Value Reference Range Interpretation Comments PLEURAL FLD LDH (test code = LDHPL) 182 IUnit/L SPECIMEN COMMENTS: LEFT PLEURAL FLUIDPLEURAL FLD [id number] 16:31:00 * Test Item Value Reference Range Interpretation Comments PLEURAL FLD CHOLESTEROL (test code = CHOLPL) 62 MG/DL SPECIMEN COMMENTS: LEFT PLEURAL FLUIDPLEURAL FLD [id number] 16:31:00 * Test Item Value Reference Range Interpretation Comments PLEURAL FLD TRIGLYCERIDE (test code = TRIGPL) 10 MG/DL SPECIMEN COMMENTS: LEFT PLEURAL FLUIDPLEURAL FLD CELL [id number] 16:05:00 * Test Item Value Reference Range Interpretation Comments FLUID TOTAL CELLS (test code = TCFL) cells/uL >0 PLEURAL FLD COLOR (test code = COLPL) PLEURAL FLD APPEARANCE (test code = APPPL) PLEURAL FLD WBC (test code = WBCPL) per uL 0-1000 PLEURAL FLD RBC (test code = RBCPL) per uL 0-50 TOTAL CELLS COUNTED ON DIFF (test code = TOTCELLFL) cells REVIEWED BY (test code = REVIEW) PATHOLOGIST SPECIMEN COMMENTS: LEFT PLEURAL FLUIDPLEURAL FLD [id number] 16:05:00* Test Item Value Reference Range Interpretation Comments PLEURAL FLD PH (test code = PHPL) SPECIMEN COMMENTS: LEFT PLEURAL FLUIDPLEURAL FLD [id number] 16:05:00* Test Item Value Reference Range Interpretation Comments PLEURAL FLD GLUCOSE (test code = GLUPL) 157 MG/DL SPECIMEN COMMENTS: LEFT PLEURAL FLUIDPLEURAL FLD TOTAL [id number] 16:05:00* Test Item Value Reference Range Interpretation Comments PLEURAL FLD TOTAL PROTEIN (test code = PROTPL) 4.2 gram/dL SPECIMEN COMMENTS: LEFT PLEURAL FLUIDPLEURAL FLD [id number] 16:05:00* Test Item Value Reference Range Interpretation Comments PLEURAL FLD LDH (test code = LDHPL) 182 IUnit/L SPECIMEN COMMENTS: LEFT PLEURAL FLUIDPLEURAL FLD [id number] 16:05:00 * Test Item Value Reference Range Interpretation Comments PLEURAL FLD CHOLESTEROL (test code = CHOLPL) 62 MG/DL SPECIMEN COMMENTS: LEFT PLEURAL FLUIDPLEURAL FLD [id number] 16:05:00 * Test Item Value Reference Range Interpretation Comments PLEURAL FLD TRIGLYCERIDE (test code = TRIGPL) 10 MG/DL SPECIMEN COMMENTS: LEFT PLEURAL [id number] 15:39:00* Test Item Value Reference Range Interpretation Comments GLUBED (test code = GLUBED) 219 mg/dL 74-106 H Performed by certified pearl glue operator at [facility] - XR CHEST 1 [id number] 15:03:00 FAX: Kiran Matute [phone] [place]: B St: ADM FAX: Sung Milan MD [phone] Name: JOSHUA CACERES [facility] : 1960 Age/S: 58/M [address] Unit #: [id number] Loc: [place] [address] Phys: Vic Rey MD Acct: [id number] Dis Date: Status: ADM IN PHONE #: [phone] Exam Date: 08/26/2019 1438 FAX #: [phone] Reason: ESRD; SOB; pleural effusions; st.p. L thoracent EXAMS: CPT CODE: [id number] XR CHEST 1 V 72828 REASON FOR EXAM: ESRD; SOB; pleural effusions; st.p. L thoracentesis; Exam Order Date: 08/26/2019 2:31 PM Ordering M.D.: Vic Rey MD PROCEDURE: - XR CHEST 1 V COMPARISON: Chest x-ray August 23, 2019 FINDINGS: There is significantly improved aeration of the left lung following thoracentesis. There is mild residual subsegmental atelectasis in the left lung base and there is a tiny left apical pneumothorax. There is also a small right-sided pleural effusion and there is atelectasis and/or consolidation in the right lung base. The upper lungs are clear. C ardiomediastinal silhouette is prominent but stable in size. No acute musc uloskeletal abnormality. IMPRESSION: Improved aeration o f the left lung following thoracentesis. There is a tiny left apical pne umothorax and there is also mild residual subsegmental atelectasis in th e left lung base. Right lung base opacity and right-sided pleural effusi on are unchanged. Location: [facility] Electronic ally Signed by Kyle Mcelroy MD on 08/26/2019 at 1503 Repo rted and signed by: Kyle Mcelroy MD CC: Kiran Lizama MD; Sung Vail MD Technologist: Lulu Edwards(R); Niurka TORRES(R) Trnscrd Date/Time/By: 08/26/2019 (9632) : By: [email or web address] Orig Print D/T: S: 08/26/2019 (4140) PAGE 1 Signed Report [id number] 11:10:00* Test Item Value Reference Range Interpretation Comments GLUBED (test code = GLUBED) 179 mg/dL 74-106 H Performed by certified pearl glue operator at [facility] Coronavirus 2019 nCoV [id number] 09:52:00* Test Item Value Reference Range Interpretation Comments Coronavirus 2019 nCoV Bedside (test code = [id number]) Negative Emergent procedure? YESComments: FOR THORACENTESISPROTHROMBIN [id number] 09:17:00* Test Item Value Reference Range Interpretation Comments PROTHROMBIN TIME PATIENT (test code = PTP) 12.6 seconds 9.0-14.0 N INTERNATIONAL NORMAL RATIO (test code = INR) 1.1 0.8-1.2 N The therapeutic range for oral anticoagulant therapy formost indications is an international normalized ratio (INR)of between 2.0 and 3.0. The recommended therapeutic INRrange for various clinical situations is listed below: Clinical Situation INR range Pulmonary e mbolism treatment (2.0-3.0)Venous thrombosis treatmentVenous thrombosis prophylaxis (high risk surgery)Prevention of systemic embolism from: Acute myocardial infarction Valvular heart disease Atrial fibrillation Mechanical prosthetic heart valves (2.5-3.5) IS PATIENT ON ANTICOAGULANTS? NTHROMBOPLASTIN TIME [id number] 09:17:00* Test Item Value Reference Range Interpretation Comments THROMBOPLASTIN TIME PARTIAL (test code = PTT) 33.8 seconds 23.0-37. 0 N IS PATIENT ON ANTICOAGULANTS? NAB HEPATITIS B [id number] 08:09:00* Test Item Value Reference Range Interpretation Comments AB HEPATITIS B SURFACE (test code = HBSAB) Reactive () Non Reactive: Inconsistent with immunity, less than 10 mIU/mL Reactive: Consistent with immunity, greater than 9.9 mIU/mLPerformed At: [facility] [address] [id number] Chery MD Ph:[phone] HEPATITIS B CORE ANTIBODY,[id number] 08:09:00* Test Item Value Reference Range Interpretation Comments HEPATITIS B CORE ANTIBODY,TOT (test code = HBCAB) Negative Nega tive Performed At: [facility] [address] [id number] Chery MD Ph:[phone] [id number] 08:07:00* Test Item Value Reference Range Interpretation Comments GLUBED (test code = GLUBED) 110 mg/dL 74-106 H Performed by certified pearl glue operator at [facility] [id number] 20:34:00* Test Item Value Reference Range Interpretation Comments GLUBED (test code = GLUBED) 237 mg/dL 74-106 H Performed by certified pearl glue operator at [facility] [id number] 20:34:00* Test Item Value Reference Range Interpretation Comments GLUBED (test code = GLUBED) 177 mg/dL 74-106 H Performed by certified pearl glue operator at [facility] - US CHST W/[id number] 18:25:00 Name: JOSHUA CACERES [facility] : 1960 Age/S: 58 / M [address] [facility] Unit #: [id number] Loc: [place] [address] Phys: Edin Fraire MD Acct: [id number] Dis Date: Status: ADM IN PHONE #: [phone] Exam Date: 08/25/2019 1800 FAX #: [phone] Reason: pleural effusion EXAMS: CPT CODE: [id number] US CHST W/MEDIASTINUM 81437 REASON FOR EXAM: pleural effusion EXAM ORDER DATE: 08/25/2019 5:26 PM Attending Rylie: Edin Fraire MD Location:[facility] PROCEDURE: - US CHST W/MEDIASTINUM FINDINGS: Limited focal ultrasound performed for assessment of pleural effusions IMPRESSION: Large left pleural effusion. Small right pleural effusion. at 1825 Reported and signed by: Cheko Joseph M.D. CC: Kiran Lizama MD; Aramis Gore II, MD; Edin Fraire MD Technologist: Tani Rose Trnscb Date/Time: 08/25/2019 (1824) DavidVTL Orig Print D/T: S: 08/25/2019 (1827) Probe: PAGE 1 Signed Report RENAL FUNCTION [id number] 08:38:00* Test Item Value Reference Range Interpretation Comments SODIUM (test code = NA) 139 mmol/L 136-145 N POTASSIUM (test code = K) 5.6 mmol/L 3.5-5.1 H CHLORIDE (test code = CL) 102.0 mmol/L 98-107 N CARBON DIOXIDE (test code = CO2) 24.0 mmol/L 21-32 N ANION GAP (test code = GAP) 18.6 10-20 N GLUCOSE (test code = GLU) 128 mg/dL 74-106 H BLOOD UREA NITROGEN (test code = BUN) 89 mg/dL 7-18 H CREATININE (test code = CREAT) 6.20 mg/dL 0.7-1.3 H ALBUMIN (test code = ALB) 2.5 g/dL 3.4-5.0 L CALCIUM (test code = CA) 8.6 mg/dL 8.5-10.1 N PHOSPHORUS (test code = PHOS) 8.3 mg/dL 2.5-4.9 H [id number] 08:25:00* Test Item Value Reference Range Interpretation Comments GLUBED (test code = GLUBED) 122 mg/dL 74-106 H Performed by certified pearl glue operator at [facility] RENAL FUNCTION [id number] 08:24:00* Test Item Value Reference Range Interpretation Comments SODIUM (test code = NA) 139 mmol/L 136-145 N POTASSIUM (test code = K) 5.6 mmol/L 3.5-5.1 H CHLORIDE (test code = CL) 102.0 mmol/L 98-107 N CARBON DIOXIDE (test code = CO2) mmol/L 21-32 ANION GAP (test code = GAP) 10-20 GLUCOSE (test code = GLU) mg/dL 74-106 BLOOD UREA NITROGEN (test code = BUN) mg/dL 7-18 CREATININE (test code = CREAT) mg/dL 0.7-1.3 ALBUMIN (test code = ALB) g/dL 3.4-5.0 CALCIUM (test code = CA) mg/dL 8.5-10.1 PHOSPHORUS (test code = PHOS) mg/dL 2.5-4.9 CBC W/O [id number] 08:06:00* Test Item Value Reference Range Interpretation Comments WHITE BLOOD CELL (test code = WBC) 7.2 K/mm3 4.5-12.5 N RED BLOOD CELL (test code = RBC) 2.40 mill/mm3 4.0-5.8 L HEMOGLOBIN (test code = HGB) 7.1 gram/dL 13.0-17.5 L HEMATOCRIT (test code = HCT) 22.6 % 42.0-52.0 L MEAN CELL VOLUME (test code = MCV) 94.2 fL 80-98 N MEAN CELL HGB (test code = MCH) 29.6 picogram 27.0-33.0 N MEAN CELL HGB CONCETRATION (test code = MCHC) 31.4 gram/dL 33.0-36. 0 L RED CELL DISTRIBUTION WIDTH (test code = RDW) 15.0 % 11.6-16. 2 N PLATELET COUNT (test code = PLT) 238 K/mm3 150-450 N MEAN PLATELET VOLUME (test code = MPV) 11.3 fL 6.7-11.0 H [id number] 21:00:00* Test Item Value Reference Range Interpretation Comments GLUBED (test code = GLUBED) 172 mg/dL 74-106 H Performed by certified pearl glue operator at [facility] BASIC METABOLIC [id number] 16:34:00* Test Item Value Reference Range Interpretation Comments SODIUM (test code = NA) 137 mmol/L 136-145 N POTASSIUM (test code = K) 5.3 mmol/L 3.5-5.1 H CHLORIDE (test code = CL) 102.0 mmol/L 98-107 N CARBON DIOXIDE (test code = CO2) 25.0 mmol/L 21-32 N ANION GAP (test code = GAP) 15.3 10-20 N GLUCOSE (test code = GLU) 58 mg/dL 74-106 L BLOOD UREA NITROGEN (test code = BUN) 71 mg/dL 7-18 H RESULT VERIFIED BY REPEAT ANALYSIS GLOMERULAR FILTRATION RATE (test code = GFR) 12 mL/min >=60 Estimated GFR by using Modified MDRD formula.Chronic kidney disease is defined as either kidney damageor GFR <60 mL/min/1.73 m2 for >3 months. CREATININE (test code = CREAT) 5.00 mg/dL 0.7-1.3 H BUN/CREATININE RATIO (test code = BUN/CREA) 14.2 10-20 N CALCIUM (test code = CA) 8.8 mg/dL 8.5-10.1 N [id number] 15:56:00* Test Item Value Reference Range Interpretation Comments GLUBED (test code = GLUBED) 69 mg/dL 74-106 L Performed by certified pearl glue operator at [facility] [id number] 12:44:00* Test Item Value Reference Range Interpretation Comments GLUBED (test code = GLUBED) 284 mg/dL 74-106 H Performed by certified pearl glue operator at [facility] [id number] 12:44:00* Test Item Value Reference Range Interpretation Comments GLUBED (test code = GLUBED) 116 mg/dL 74-106 H Performed by certified pearl glue operator at [facility] BASIC METABOLIC [id number] 06:12:00* Test Item Value Reference Range Interpretation Comments SODIUM (test code = NA) 139 mmol/L 136-145 N POTASSIUM (test code = K) 5.7 mmol/L 3.5-5.1 H CHLORIDE (test code = CL) 104.0 mmol/L 98-107 N CARBON DIOXIDE (test code = CO2) 27.0 mmol/L 21-32 N ANION GAP (test code = GAP) 13.7 10-20 N GLUCOSE (test code = GLU) 109 mg/dL 74-106 H BLOOD UREA NITROGEN (test code = BUN) 57 mg/dL 7-18 H RESULT VERIFIED BY REPEAT ANALYSIS GLOMERULAR FILTRATION RATE (test code = GFR) 15 mL/min >=60 Estimated GFR by using Modified MDRD formula.Chronic kidney disease is defined as either kidney damageor GFR <60 mL/min/1.73 m2 for >3 months. CREATININE (test code = CREAT) 4.00 mg/dL 0.7-1.3 H BUN/CREATININE RATIO (test code = BUN/CREA) 14.3 10-20 N CALCIUM (test code = CA) 8.2 mg/dL 8.5-10.1 L BASIC METABOLIC [id number] 04:57:00* Test Item Value Reference Range Interpretation Comments SODIUM (test code = NA) 139 mmol/L 136-145 N POTASSIUM (test code = K) 5.7 mmol/L 3.5-5.1 H CHLORIDE (test code = CL) 104.0 mmol/L 98-107 N CARBON DIOXIDE (test code = CO2) mmol/L 21-32 ANION GAP (test code = GAP) 10-20 GLUCOSE (test code = GLU) mg/dL 74-106 BLOOD UREA NITROGEN (test code = BUN) mg/dL 7-18 GLOMERULAR FILTRATION RATE (test code = GFR) mL/min >=60 CREATININE (test code = CREAT) mg/dL 0.7-1.3 BUN/CREATININE RATIO (test code = BUN/CREA) 10-20 CALCIUM (test code = CA) mg/dL 8.5-10.1 CBC W/AUTO [id number] 04:20:00* Test Item Value Reference Range Interpretation Comments WHITE BLOOD CELL (test code = WBC) 7.2 K/mm3 4.5-12.5 N RED BLOOD CELL (test code = RBC) 2.49 mill/mm3 4.0-5.8 L HEMOGLOBIN (test code = HGB) 7.4 gram/dL 13.0-17.5 L HEMATOCRIT (test code = HCT) 22.9 % 42.0-52.0 L MEAN CELL VOLUME (test code = MCV) 92.0 fL 80-98 N MEAN CELL HGB (test code = MCH) 29.7 picogram 27.0-33.0 N MEAN CELL HGB CONCETRATION (test code = MCHC) 32.3 gram/dL 33.0-36. 0 L RED CELL DISTRIBUTION WIDTH (test code = RDW) 15.1 % 11.6-16. 2 N RED CELL DISTRIBUTION WIDTH SD (test code = RDW-SD) 50.7 fL 37 .0-51.0 N PLATELET COUNT (test code = PLT) 232 K/mm3 150-450 N MEAN PLATELET VOLUME (test code = MPV) 11.3 fL 6.7-11.0 H NEUTROPHIL % (test code = NT%) 66.6 % 39.0-69.0 N IMMATURE GRANULOCYTE % (test code = IG%) 0.8 % 0.0-5.0 N LYMPHOCYTE % (test code = LY%) 15.6 % 25.0-55.0 L MONOCYTE % (test code = MO%) 10.5 % 0.0-10.0 H EOSINOPHIL % (test code = EO%) 5.5 % 0.0-5.0 H BASOPHIL % (test code = BA%) 1.0 % 0.0-1.0 N NUCLEATED RBC % (test code = NRBC%) 0.0 % 0-0 N NEUTROPHIL # (test code = NT#) 4.82 K/mm3 1.8-7.7 N IMMATURE GRANULOCYTE # (test code = IG#) 0.06 x10 3/uL 0-0.03 H LYMPHOCYTE # (test code = LY#) 1.13 K/mm3 1.0-5.0 N MONOCYTE # (test code = MO#) 0.76 K/mm3 0-0.8 N EOSINOPHIL # (test code = EO#) 0.40 K/mm3 0.0-0.5 N BASOPHIL # (test code = BA#) 0.07 K/mm3 0.0-0.2 N NUCLEATED RBC # (test code = NRBC#) 0.00 K/mm3 0.0-0.1 N MANUAL DIFF REQUIRED (test code = MDIFF) NO [id number] 21:59:00* Test Item Value Reference Range Interpretation Comments GLUBED (test code = GLUBED) 229 mg/dL 74-106 H Performed by certified pearl glue operator at [facility] [id number] 21:00:00* Test Item Value Reference Range Interpretation Comments TROPONIN-I (test code = TROPI) 0.048 ng/mL 0-0.045 HH Results called to [id number] by V.LAB.GA 08/23/192056Critical results verified and read back by Nurse? Y COMMENTS TO PATROL COMMUNITY SERVICE OFFICER: COLLECT 3 HOURS AFTER PREVIOUS [id number] 18:00:00* Test Item Value Reference Range Interpretation Comments TROPONIN-I (test code = TROPI) 0.038 ng/mL 0-0.045 N COMMENTS TO [employer]ROL COMMUNITY SERVICE OFFICER: COLLECT 3 HOURS AFTER PREVIOUS [id number] 17:56:00* Test Item Value Reference Range Interpretation Comments GLUBED (test code = GLUBED) 158 mg/dL 74-106 H Performed by certified pearl glue operator at [facility] AG HEPAT B [id number] 11:52:00* Test Item Value Reference Range Interpretation Comments AG HEPAT B SURF (test code = HBSAG) Nonreactive Index Nonreactive BASIC METABOLIC [id number] 10:39:00* Test Item Value Reference Range Interpretation Comments SODIUM (test code = NA) 138 mmol/L 136-145 N POTASSIUM (test code = K) 5.2 mmol/L 3.5-5.1 H CHLORIDE (test code = CL) 104.0 mmol/L 98-107 N CARBON DIOXIDE (test code = CO2) 21.0 mmol/L 21-32 N ANION GAP (test code = GAP) 18.2 10-20 N GLUCOSE (test code = GLU) 262 mg/dL 74-106 H BLOOD UREA NITROGEN (test code = BUN) 126 mg/dL 7-18 H GLOMERULAR FILTRATION RATE (test code = GFR) 8 mL/min >=60 Estimated GFR by using Modified MDRD formula.Chronic kidney disease is defined as either kidney damageor GFR <60 mL/min/1.73 m2 for >3 months. CREATININE (test code = CREAT) 7.10 mg/dL 0.7-1.3 H BUN/CREATININE RATIO (test code = BUN/CREA) 17.7 10-20 N CALCIUM (test code = CA) 8.9 mg/dL 8.5-10.1 N [id number] 10:39:00* Test Item Value Reference Range Interpretation Comments TROPONIN-I (test code = TROPI) 0.036 ng/mL 0-0.045 N BASIC METABOLIC [id number] 10:30:00* Test Item Value Reference Range Interpretation Comments SODIUM (test code = NA) 138 mmol/L 136-145 N POTASSIUM (test code = K) 5.2 mmol/L 3.5-5.1 H CHLORIDE (test code = CL) 104.0 mmol/L 98-107 N CARBON DIOXIDE (test code = CO2) mmol/L 21-32 ANION GAP (test code = GAP) 10-20 GLUCOSE (test code = GLU) mg/dL 74-106 BLOOD UREA NITROGEN (test code = BUN) mg/dL 7-18 GLOMERULAR FILTRATION RATE (test code = GFR) mL/min >=60 CREATININE (test code = CREAT) mg/dL 0.7-1.3 BUN/CREATININE RATIO (test code = BUN/CREA) 10-20 CALCIUM (test code = CA) mg/dL 8.5-10.1 [id number] 10:30:00* Test Item Value Reference Range Interpretation Comments TROPONIN-I (test code = TROPI) ng/mL 0-0.045 - XR CHEST 1 [id number] 10:23:00 FAX: Kiran Matute [phone] [place]: St: PRE FAX: Vamshi Talbot MD [phone] Name: JOSHUA CACERES [facility] : 1960 Age/S: 58/M [address] [facility] Unit #: [id number] Loc: [place] [address] Phys: Vamshi Talbot MD Acct: [id number] Dis Date: Status: PRE ER PHONE #: [phone] Exam Date: 08/23/2019 1015 FAX #: [phone] Reason: CHEST PAIN EXAMS: CPT CODE: [id number] XR CHEST 1 V [id number] REASON FOR EXAM: CHEST PAIN EXAM ORDER DATE: 08/23/2019 10:07 AM Ordering: Vamshi Talbot MD Attending:Vamshi Talbot MD Location:[facility] PROCEDURE: - XR CHEST 1 V COMPARISON: 01/23/2019 FINDINGS: Portable AP frontal view of the chest obtained at 10:13 AM shows diffuse airspace opacity of the right lung and left base. The heart size is within normal limits. Pulmonary vasculatures are minimally congested. IMPRESSION: Diffuse airspace opacity of the right lung and left base suggestive of consolidation with superimposed pulmonary edema and mild bilateral pleural effusions at 1023 Reported and signed by: Cheko Joseph M.D. CC: Kiran Lizama MD; Vamshi Talbot MD Technologist: OXANA TORRES(R) Trnscrd Date/Time/By: 08/23/2019 ([id number]) : By: DavidVTL Orig Print D/T: S: 08/23/2019 (0318) PAGE 1 Signed Report CBC W/O [id number] 10:19:00* Test Item Value Reference Range Interpretation Comments WHITE BLOOD CELL (test code = WBC) 10.2 K/mm3 4.5-12.5 N RED BLOOD CELL (test code = RBC) 2.63 mill/mm3 4.0-5.8 L HEMOGLOBIN (test code = HGB) 7.8 gram/dL 13.0-17.5 L HEMATOCRIT (test code = HCT) 24.2 % 42.0-52.0 L MEAN CELL VOLUME (test code = MCV) 92.0 fL 80-98 N MEAN CELL HGB (test code = MCH) 29.7 picogram 27.0-33.0 N MEAN CELL HGB CONCETRATION (test code = MCHC) 32.2 gram/dL 33.0-36. 0 L RED CELL DISTRIBUTION WIDTH (test code = RDW) 14.8 % 11.6-16. 2 N PLATELET COUNT (test code = PLT) 259 K/mm3 150-450 N MEAN PLATELET VOLUME (test code = MPV) 11.5 fL 6.7-11.0 H Bedside [id number] 16:54:00* Test Item Value Reference Range Interpretation Comments Bedside Glucose (test code = 33415-7) 192 70-120 Meter ID: [id number] [facility] 2019-[facility] 08:37:00* Test Item Value Reference Range Interpretation Comments Blood Culture (test code = 88128912) NO GROWTH AFTER 72 HOURS [facility] [id number] 05:38:00* Test Item Value Reference Range Interpretation Comments White Blood Count (test code = 6690-2) 6.11 4.8-10.8 [facility] [id number] 05:38:00* Test Item Value Reference Range Interpretation Comments Red Blood Count (test code = 789-8) 3.18 4.3-5.7 [facility] [facility] TexasHemoglobin2020-04-21 05:38:00* Test Item Value Reference Range Interpretation Comments Hemoglobin (test code = 42937-2) 9.2 14.0-18.0 [facility] TexasHematocrit2020-04-21 05:38:00* Test Item Value Reference Range Interpretation Comments Hematocrit (test code = 4544-3) 28.7 38.2-49.6 [facility] TexasMean Corpuscular Vejlzp1823-34-86 05:38:00* Test Item Value Reference Range Interpretation Comments Mean Corpuscular Volume (test code = 787-2) 90.3 81-99 [facility] TexasMean Corpuscular Dugukxdmkh5910-63-00 05:38:00* Test Item Value Reference Range Interpretation Comments Mean Corpuscular Hemoglobin (test code = 785-6) 28.9 28-32 [facility] TexasMean Corpuscular Hemoglobin Concent 2019-08-19 05:38:00* Test Item Value Reference Range Interpretation Comments Mean Corpuscular Hemoglobin Concent (test code = 786-4) 32.1 31-35 [facility] TexasRed Cell Distribution Vaxol6990-70-42 05:38:00* Test Item Value Reference Range Interpretation Comments Red Cell Distribution Width (test code = 48538-3) 14.6 11.7 -14.4 [facility] TexasPlatelet Dfzxm5176-22-48 05:38:00* Test Item Value Reference Range Interpretation Comments Platelet Count (test code = 777-3) 205 140-360 [facility] TexasNeutrophils (%) (Auto)2019-08-19 05:38:00 * Test Item Value Reference Range Interpretation Comments Neutrophils (%) (Auto) (test code = 55921-5) 64.8 38.7-80.0 [facility] TexasLymphocytes (%) (Auto)2019-08-19 05:38:00 * Test Item Value Reference Range Interpretation Comments Lymphocytes (%) (Auto) (test code = 736-9) 16.4 18.0-39.1 [facility] TexasMonocytes (%) (Auto)2019-08-19 05:38:00* Test Item Value Reference Range Interpretation Comments Monocytes (%) (Auto) (test code = 5905-5) 10.6 4.4-11.3 [facility] TexasEosinophils (%) (Auto)2019-08-19 05:38:00 * Test Item Value Reference Range Interpretation Comments Eosinophils (%) (Auto) (test code = 713-8) 7.2 0.0-6.0 [facility] TexasBasophils (%) (Auto)2019-08-19 05:38:00* Test Item Value Reference Range Interpretation Comments Basophils (%) (Auto) (test code = 706-2) 0.7 0.0-1.0 [facility] TexasIM GRANULOCYTES %2019-08-19 05:38:00* Test Item Value Reference Range Interpretation Comments IM GRANULOCYTES % (test code = IM GRANULOCYTES %) 0.3 0.0- 1.0 [facility] TexasNeutrophils # (Auto)2019-08-19 05:38:00* Test Item Value Reference Range Interpretation Comments Neutrophils # (Auto) (test code = 751-8) 4.0 2.1-6.9 [facility] TexasLymphocytes # (Auto)2019-08-19 05:38:00* Test Item Value Reference Range Interpretation Comments Lymphocytes # (Auto) (test code = 31956-4) 1.0 1.0-3.2 [facility] TexasMonocytes # (Auto)2019-08-19 05:38:00* Test Item Value Reference Range Interpretation Comments Monocytes # (Auto) (test code = 742-7) 0.7 0.2-0.8 [facility] TexasEosinophils # (Auto)2019-08-19 05:38:00* Test Item Value Reference Range Interpretation Comments Eosinophils # (Auto) (test code = 711-2) 0.4 0.0-0.4 [facility] TexasBasophils # (Auto)2019-08-19 05:38:00* Test Item Value Reference Range Interpretation Comments Basophils # (Auto) (test code = 704-7) 0.0 0.0-0.1 [facility] TexasAbsolute Immature Granulocyte (auto 2019-08-19 05:38:00* Test Item Value Reference Range Interpretation Comments Absolute Immature Granulocyte (auto (dany t code = Absolute Immature Granulocyte (auto) 0.02 0-0.1 [facility] Hospitalodium Vllgj6929-14-65 05:31:00* Test Item Value Reference Range Interpretation Comments Sodium Level (test code = 2951-2) 137 136-145 [facility] TexasPotassium Rckob9676-00-92 05:31:00* Test Item Value Reference Range Interpretation Comments Potassium Level (test code = 2823-3) 4.5 3.5-5.1 [facility] TexasChloride Oicrc3997-40-35 05:31:00* Test Item Value Reference Range Interpretation Comments Chloride Level (test code = 2075-0) 101 98-107 [facility] TexasCarbon Dioxide Kerzq9568-28-01 05:31:00* Test Item Value Reference Range Interpretation Comments Carbon Dioxide Level (test code = 2028-9) 29 22-29 [facility] TexasAnion Nyy0773-58-15 05:31:00* Test Item Value Reference Range Interpretation Comments Anion Gap (test code = 75479-7) 11.5 8-16 [facility] TexasBlood Urea Xvnterma2091-08-45 05:31:00* Test Item Value Reference Range Interpretation Comments Blood Urea Nitrogen (test code = 3094-0) 54 7-26 [facility] TexasCreatinine2020-04-21 05:31:00* Test Item Value Reference Range Interpretation Comments Creatinine (test code = 2160-0) 3.92 0.72-1.25 [facility] TexasBUN/Creatinine Yknfg6134-95-54 05:31:00* Test Item Value Reference Range Interpretation Comments BUN/Creatinine Ratio (test code = 3097-3) 14 6-25 [facility] TexasEstimat Glomerular Filtration Rate 2019-08-19 05:31:00* Test Item Value Reference Range Interpretation Comments Estimat Glomerular Filtration Rate (test code = 961250046) 16 >60 Ranges were taken from the National Kidney Disease Education Program and the [facility] literature.Reference ranges:60 or greater: Jvgcsb15-20 ( for 3 consecutive months): Chronic kidney disease 15 or less: Kidney failureCHI [facility]lor [facility] – Marble FallsGlucose Udaqo0233-69-92 05:31:00* Test Item Value Reference Range Interpretation Comments Glucose Level (test code = SGD1419) 143 74-118 [facility] TexasCalcium Vcfoq3128-09-37 05:31:00* Test Item Value Reference Range Interpretation Comments Calcium Level (test code = 87670-3) 8.9 8.4-10.2 [facility] TexasPhosphorus Csipe3320-11-10 05:31:00* Test Item Value Reference Range Interpretation Comments Phosphorus Level (test code = CCQ0766) 4.9 2.3-4.7 [facility] TexasMagnesium Byztq0593-29-65 05:31:00* Test Item Value Reference Range Interpretation Comments Magnesium Level (test code = 64800-5) 2.0 1.3-2.1 [facility] TexasTotal Ufjxunpws0070-87-07 05:31:00* Test Item Value Reference Range Interpretation Comments Total Bilirubin (test code = 1975-2) 0.4 0.2-1.2 [facility] TexasAspartate Amino Transf (AST/SGOT) 2019-08-19 05:31:00* Test Item Value Reference Range Interpretation Comments Aspartate Amino Transf (AST/SGOT) (test code = Aspartate Amino Transf (AST/SGOT)) 31 5-34 [facility] TexasAlanine Aminotransferase (ALT/SGPT) 2019-08-19 05:31:00* Test Item Value Reference Range Interpretation Comments Alanine Aminotransferase (ALT/SGPT) (test code = 1742-6) 34 0-55 [facility] TexasTotal Typuqic6733-83-76 05:31:00* Test Item Value Reference Range Interpretation Comments Total Protein (test code = 2885-2) 6.9 6.5-8.1 [facility] TexasAlbumin2020-04-21 05:31:00* Test Item Value Reference Range Interpretation Comments Albumin (test code = 1751-7) 2.4 3.5-5.0 [facility] TexasGlobulin2020-04-21 05:31:00* Test Item Value Reference Range Interpretation Comments Globulin (test code = 51599-3) 4.5 2.3-3.5 [facility] TexasAlbumin/Globulin Tjhnd8766-51-78 05:31:00 * Test Item Value Reference Range Interpretation Comments Albumin/Globulin Ratio (test code = 1759-0) 0.5 0.8-2.0 [facility] TexasAlkaline Glibtsmyibl0334-22-47 05:31:00* Test Item Value Reference Range Interpretation Comments Alkaline Phosphatase (test code = 6768-6) 156 40-150 [facility] TexasCHEST SINGLE (PORTABLE)2019-08-18 08:44:00 [place] [address] Patient Name: JOSHUA WHEELER MR #: [id number] : 1960 Age/Sex: 58/M Req #: [id number] Adm Physician: SUNG VAIL MD Ordered by: GERMAIN ARNETT MD Report #: [id number] Location: ICU Room/Bed: ICU 193 Procedure: [id number] DX/CHEST SINGLE (PORTABLE) Exam Date: 08/18/19 Exam Time: 0435 REPORT STATUS: Signed History: Pneumonia, urinary tract infection, CHF Comparison: 08/17/2019 Findings: There are small bilateral pleural effusions. There is airspace consolidation at the right lung base which may just be compressive atelectasis although underlying pneumonia cannot be excluded. There is mild vascular con gestion. These findings are all similar to the prior study. No pneumothorax is identified. The heart shadow is partially obscured. The thoracic aorta is mildly tortuous. Degenerative changes are present in the spine. Impres viviana: 1. Findings suggestive of congestive heart failure, similar in appear ance. 2. Right lower lobe atelectasis versus pneumonia, unchanged. Sig sergio by: Ken Biswas MD on 08/18/2019 8:45 AM Dictated By: KEN BISWAS MD 4 Transcribed By: YOSEPH RAN on 08/18/19 0845 COPY TO: GERMAIN ARNETT MD B-Type Natriuretic Kfmybid8476-29-39 05:58:00* Test Item Value Reference Range Interpretation Comments B-Type Natriuretic Peptide (test code = 31913-2) > 5000.0 0-100 [facility] SINGLE (PORTABLE)2019-08-17 08:41:00 [facility] [address] [place] [address] Patient Name: JOSHUA WHEELER MR #: [id number] : 1960 Age/Sex: 58/M Req #: [id number] Adm Physician: SUNG VAIL MD Ordered by: GERMAIN ARNETT MD Report #: [id number] Location: ICU Room/Bed: ICU 193 Procedure: [id number] DX/CHEST SINGLE (PORTABLE) Exam Date: 08/17/19 Exam Time: 0635 REPORT STATUS: Signed EXAMINATION: CHEST SINGLE (PORTABLE) INDICATION: CHF. ESRD on dialys is. COMPARISON: Chest radiograph 08/16/2019. FINDINGS: TUB ES and LINES: Interval placement of left arm PICC which terminates at the cav oatrial junction. LUNGS: Bilateral pulmonary venous congestion. There is p atchy density in the bilateral mid and lower lungs, left greater than right; d ecreased on the right suggesting asymmetric edema, however superimposed infect ion cannot be excluded in the proper clinical setting. PLEURA: Moderate bilateral pleural effusions. Loculated component at the right lung apex. No pn eumothorax. HEART AND MEDIASTINUM: Cardiac size is moderately enlarged. BONES AND SOFT TISSUES: No acute osseous lesion. UPPER ABDOMEN: No free air under the diaphragm. IMPRESSION: No significant interval change. Findings consistent with decompensated CHF associated with bilateral moderate pleural effusions. Signed by: Dr. Lui Vidal M.D. on 08/17/2019 8:44 AM Dictated By: ARLEEN VIDAL MD, MD Electronically Naz d By: ARLEEN VIDAL MD, MD on 08/17/19 0844 Transcribed By: LOREE on 08/17/19 0844 COPY TO: GERMAIN ARNETT MD Arterial Blood [id number] 06:30:00* Test Item Value Reference Range Interpretation Comments Arterial Blood pH (test code = 2744-1) 7.42 7.35-7.45 [facility] TexasArterial Blood Partial Pressure CO2 2019-08-17 06:30:00* Test Item Value Reference Range Interpretation Comments Arterial Blood Partial Pressure CO2 (test code = 2019-8) 48 35-45 [facility] TexasArterial Blood XDQ49096-89-00 06:30:00* Test Item Value Reference Range Interpretation Comments Arterial Blood HCO3 (test code = 1960-4) 31 22-26 [facility] TexasArterial Blood Base Kcibus5985-99-67 06:30:00* Test Item Value Reference Range Interpretation Comments Arterial Blood Base Excess (test code = 1925-7) 6.0 -2-3 [facility] TexasFiO22020-04-19 06:30:00* Test Item Value Reference Range Interpretation Comments FiO2 (test code = FiO2) 28 Pt on 2L [facility] CenterTroponin E8978-55-90 17:35:00 * Test Item Value Reference Range Interpretation Comments Troponin I (test code = 60213-1) 0.125 0-0.300 [facility] TexasLactic Acid Iykjj4687-91-90 08:59:00* Test Item Value Reference Range Interpretation Comments Lactic Acid Level (test code = Lactic Acid Level) 2.4 0.5- 2.0 Results repeated and called to ANDREA TREVIÑO RN at 0858 on 08/16/19 by Meron paul. Read back and verified.[facility] TexasCreatine Kinase JI4569-48-47 08:44:00* Test Item Value Reference Range Interpretation Comments Creatine Kinase MB (test code = 82180-7) 3.00 0-5.0 [facility] TexasCreatine Chschr6621-16-22 08:38:00* Test Item Value Reference Range Interpretation Comments Creatine Kinase (test code = 2157-6) 26 30-200 [facility] TexasAmmonia2020-04-18 08:31:00* Test Item Value Reference Range Interpretation Comments Ammonia (test code = 67949-2) 40 31-123 [facility] TexasCT BRAIN DF4064-18-85 07:46:00 [place] [address] Patient Name: JOSHUA WHEELER MR #: [id number] : 1960 Age/Sex: 58/M Req #: [id number] Adm Physician: SUNG VAIL MD Ordered by: GERMAIN ARNETT MD Report #: [id number] Location: MED/SURG Room/Bed: [facility] Procedure: [id number] CT/CT BRAIN WO Exam Date: 08/16/19 Exam Time: 0715 REPORT STATUS: Signed Exam: Head CT without contrast History: Change in mental status. Comparison studies: Head CT 08/13/2017 Technique: Axial images were obtained from the skull b ase to the vertex. Coronal and sagittal images reconstructed from the axial da ta. Dose modulation, iterative reconstruction, and/or weight based adjustment of the mA/kV was utilized to reduce the radiation dose to as low as reasonably achievable. Radiation dose: Total DLP: 1302 mGy*cm. Estimated e ffective dose: DLP x 0.015 Intravenous contrast: None Findings: Exa m is limited by artifacts related to patient motion. Scalp: No abnormalitie s. Bones: No fractures, blastic or lytic lesions. Brain sulci: Mildly pro minent Ventricles: Mild compensatory dilatation. No hydrocephalus. Extra-axi al spaces: No masses, no fluid collection. Parenchyma: A few scattered hypodensities in the supratentorial white matter are nonspecific but are most compatible with chronic microvascular ischemic changes. Chronic lacunar infarc ts present in the bilateral thalami,, centered in the left llanos radiata exte nds to the body of the caudate nucleus and superior margin of the left lentifo rm nucleus and in near the junction of the right llanos radiata and anterior l imb of the right internal capsule. No mass, acute hemorrhage or acute corti yainv insult. Sellar/suprasellar region: No abnormalities. Craniocervical j unction: Patent foramen magnum. No Chiari one malformation. Incidental find ings: Bilateral intraocular lens replacements. Atherosclerotic calcificati ons in the carotid siphons and intradural vertebral arteries. IMPRESSION: Exam limited by artifacts related to patient motion. No gross acute int racranial abnormalities. Chronic findings: 1. Mild generalized parenchym al volume loss. 2. Mild chronic microvascular ischemic changes and chronic la cunar infarcts as described. Signed by: Dr. Ken Garrido M.D. on 020 7:54 AM Dictated By: KNE GARRIDO MD 3 Transcribed By: LOREE on 08/16/19753 COPY TO: GERMAIN ARNETT MD CHEST SINGLE (PORTABLE)2019-08-16 07:37:00 [facility] [address] [place] [address] Patient Name: JOSHUA WHEELER MR #: [id number] : 1960 Age/Sex: 58/M Req #: [id number] Adm Physician: SUNG VAIL MD Ordered by: GERMAIN ARNETT MD Report #: [id number] Location: MED/SURG Room/Bed: [facility] Procedure: [id number] DX/CHEST SINGLE (PORTABLE) Exam Date: 08/16/19 Exam Time: 0715 REPORT STATUS: Signed EXAMINATION: CHEST SINGLE (PORTABLE) INDICATION: Rapid response, alt ered mental status. COMPARISON: Chest radiograph 07/25/2019. FI NDINGS: TUBES and LINES: Interval placement of left arm PICC which termin ates at the cavoatrial junction. LUNGS: Normal lung volumes. There is perihilar fullness and indistinctness of the pulmonary vasculature, decreased from the prior study. There are hazy/patchy opacities in the bilateral mid and lower lungs, left greater than right; decreased on the right. PLEURA: Moderate left and small right pleural effusions. Loculated component at the ri ght lung apex. No pneumothorax. HEART AND MEDIASTINUM: Cardiac size is mod erately enlarged. BONES AND SOFT TISSUES: No acute osseous lesion. So ft tissues are unremarkable. UPPER ABDOMEN: No free air under the diaphra gm. IMPRESSION: Moderate cardiomegaly and decreased pulmonary edema. Moderate left pleural effusion. Small loculated right pleural effusion. Lower lung zone opacities, likely atelectasis. Superimposed infection is possible a ppropriate clinical setting. Signed by: Dr. Liz Orozco MD on 08/16/2019 7 :44 AM Dictated By: LIZ OROZCO MD 3 Transcribed By: LOREE on 08/16/19743 COPY TO: GERMAIN REDMAN MD Hepatitis Be Pvzpugq8171-58-00 11:49:00* Test Item Value Reference Range Interpretation Comments Hepatitis Be Antigen (test code = 26484-7) Positive Negative Results called to FABIOLA HAN RN at 1148 on 08/14/19 by Cayetano El. RB [place].Perfo rmed at: [employer] [id number] Dire ctor: Alec Javier MD, Phone: [phone] [facility] Hepatitis B Surface Antibody, Egdoy7006-69-16 08:37:00* Test Item Value Reference Range Interpretation Comments Hepatitis B Surface Antibody, Quant (test code = 5194-6) 114.9 Immunity>9.9 Status of Immunity Anti-HBs Level Inconsistent with Immunity 0.0 - 9.9Consistent with Immunity >9.9[facility] Core Total Awubuvpg6941-11-51 08:37:00* Test Item Value Reference Range Interpretation Comments Hepatitis B Core Total Antibody (test code = 13889-0) Negative Negative [facility] B Surface Iwutsur6189-35-85 08:37:00* Test Item Value Reference Range Interpretation Comments Hepatitis B Surface Antigen (test code = 5196-1) Negative Negat aye [facility] B Core IgM Zsunagkr0785-15-13 08:37:00* Test Item Value Reference Range Interpretation Comments Hepatitis B Core IgM Antibody (test code = 33910-9) Negative Ne gative Performed at: [employer] [facility] [facility] [id number] Director: Alec Javier MD, Phone: [phone] [facility] Marble FallsCT BRAIN FS8310-07-34 00:47:00 [facility] [address] [place] [address] Patient Name: JOSHUA WHEELER MR #: [id number] : 1960 Age/Sex: 58/M Req #: [id number] Adm Physician: SUNG VAIL MD Ordered by: SHELLY HOOPER MD Report #: [id number] Location: ICU Room/Bed: ICU 194[facility] Procedure: CT/CT BRAIN WO Exam Date: 08/14/19 Exam Time : 0020 REPORT STATUS: Signed CT BRAIN WO HISTORY: Altered mental status COMPARISON: None. Techni que: Noncontrast axial scans were obtained from skull base to the vertex. Co bubba and sagittal reconstructions obtained from the axial data. One or more of the following dose reduction techniques were used: Automated exposure contr ol, adjustment of the mA and/or kV according to patient size, and/or utilizati on of iterative reconstruction technique. Beam hardening artifacts obscure luis angel e details. DISCUSSION: Scalp/Skull: Unremarkable. Brain sulci: Mil dly prominent. Ventricles: Compensatory dilatation. Extra-axial spaces: No m asses or fluid collections. Carotid and vertebral artery calcifications are pr esent. Parenchyma: Mild to moderate bilateral deep white matter hypodens ity is likely chronic microvascular ischemic change. Old lacunar infarcts a re seen in the medial left thalamus and left llanos radiata. Small focal hyp odensities in the right striatocapsular region and medial right thalamus may b e due to age indeterminate lacunar infarcts. Otherwise, no masses, hemorrhage, or large vascular territory acute infarct. Dural sinuses: No abnormal den sities. Sellar/Suprasellar region: Intact. Skull base: Intact. Incidental findings: Trace left mastoid effusion. Bilateral ocular lens replacement. Mini mal bilateral frontonasal recess mucosal thickening. IMPRESSION: 1. Smal l focal hypodensities in the right striatocapsular region and medial right gerardo lamus may be due to age indeterminate lacunar infarcts. 2. Otherwise, no acut e intracranial abnormalities. 3. Mild to moderate supratentorial chronic micr ovascular ischemic change. 4. Old left thalamic and left llanos radiata lacu anaya infarcts. 5. Mild generalized cerebral volume loss. Signed by: Chuck Leblanc M.D. on 08/14/2019 12:55 AM Dictated By: CHELSEA NOGUEIRA MD Transcrib ed By: LOREE on 08/14/1954 COPY TO: SHELLY HOOPER MD CHEST SINGLE (PORTABLE)2019-08-12 23:03:00 [place] [address] Patient Name: JOSHUA WHEELER MR #: [id number] : 1960 Age/Sex: 58/M Req #: [id number] Adm Physician: Ordered by: SHELLY HOOPER MD Report #: [id number] Location: ER Room/Bed: Procedure: [id number] DX/CHEST SINGLE (PORTABLE) Exam Date: 08/12/19 Exam Time: 2220 REPORT STATUS: Sig sergio EXAMINATION: CHEST SINGLE (PORTABLE) INDICATION: Short of breat h COMPARISON: Chest x-ray 07/28/2019 FINDINGS: TUBE S and LINES: None. LUNGS: Normal lung volumes. Mid/lower lung haziness. Prominence of interstitial lung markings. PLEURA: Similar size and estephania earance of the air and fluid containing small right loculated pleural effusion . Small left pleural effusion. HEART AND MEDIASTINUM: Cardiac size is mode rately enlarged. BONES AND SOFT TISSUES: No acute osseous lesion. Sof t tissues are unremarkable. UPPER ABDOMEN: No free air under the diaphrag m. IMPRESSION: Moderate cardiomegaly, pulmonary edema, and small bilateral pleural effusions. Similar size and appearance of the air and flu id containing small right loculated pleural effusion. Signed by: Elvis dietz DO on 08/12/2019 11:05 PM Dictated By: ELVIS RUSH DO Electr onically Signed By: ELVIS RUSH DO on 08/12/192304 Transcribed By: TETE Pérez on 08/12/192304 COPY TO: SHELLY HOOPER MD Body Fluid Fvxjcewvrwb1112-09-56 22:29:00* Test Item Value Reference Range Interpretation Comments Body Fluid Neutrophils (test code = 28825-8) 10 [facility] TexasBody Fluid Dllkrmlzyyv6453-59-92 22:29:00 * Test Item Value Reference Range Interpretation Comments Body Fluid Lymphocytes (test code = 57520035) 72 [facility] TexasBody Fluid Guwazvqzh7448-50-60 22:29:00* Test Item Value Reference Range Interpretation Comments Body Fluid Monocytes (test code = 31761-5) 18 [facility] TexasBody Fluid Total Cells Dllisym1363-91-46 22:29:00* Test Item Value Reference Range Interpretation Comments Body Fluid Total Cells Counted (test code = 80564-6) 50 [facility] TexasBody Fluid HIO5886-57-12 16:58:00* Test Item Value Reference Range Interpretation Comments Body Fluid WBC (test code = 6743-9) 45 [facility] TexasBody Fluid CEA7369-84-75 16:58:00* Test Item Value Reference Range Interpretation Comments Body Fluid RBC (test code = 6741-3) 8 [facility] TexasTHORACENTESIS/IMAGE OATCGP5920-52-16 16:26:00 [facility] [address] [place] [address] Patient Name: JOSHUA WHEELER MR #: [id number] : 1960 Age/Sex: 58/M Req #: [id number] [facility] Physician: SUNG VAIL MD Ordered by: MARILIN ALBA MD Report #: [id number] Location: [facility] Room/Bed: [facility] Procedure: US/THORACENTESIS/IMAGE GUIDED Exam Date: Exam Ti me: REPORT STATUS: Signed PROCE DURE: Ultrasound-guided thoracentesis Procedural Personnel Attending phys ician(s): Kevin Banda MD Fellow physician(s): None Resident physician(s): Winnie ne Advanced practice provider(s): None Pre-procedure diagnosis: Pleural e ffusion Post-procedure diagnosis: Same Indication: Pleural effusion with com promised respiration Additional clinical history: None Complications: No immediate complications. IMPRESSION: Ultrasound-guided thoracentesis w ith drainage of 1200 mL of warren fluid. Plan: Resume care by clinical te am. PROCE DURE SUMMARY: - Limited thoracic ultrasound - Ultrasound-guided thoracentesi s - Additional procedure(s): None PROCEDURE DETAILS: Pre-procedure Consent: Informed consent for the procedure including risks, benefits and alt ernatives was obtained and time-out was performed prior to the procedure. Prep aration: The site was prepared and draped using maximal sterile barrier techni que including cutaneous antisepsis. Anesthesia/sedation Level of anesthes ia/sedation: No sedation Limited thoracic ultrasound Limited thoracic ult rasound was performed using a curved transducer. A safe window for thoracentes is was identified. Left hemithorax findings: Large pleural effusion Right h emithorax findings: Not investigated. Thoracentesis Local anesthesia was administered. The pleural space was accessed under real-time ultrasound guidan ce and fluid return confirmed position. The fluid was drained. The catheter w as removed, and a sterile bandage was applied. Catheter placed: 5F Yueh Post -drainage hemithorax findings: Trace effusion. Additional Details Additio nal description of procedure: None Equipment details: None Specimens removed : Pleural fluid Estimated blood loss (mL): Less than 10 Standardized report: SIR_Thoracentesis_v3 Attestation Signer name: Kevin Banda MD I attest that I was present for the entire procedure. I reviewed the stored images and agree with the report as written. Signed by: Kevin Banda MD on 07/28/2019 4:28 PM Dictated By: KEVIN BANDA MD 27 Transcribed By: LOREE on 07/28/191627 COPY TO: MARILIN ALBA MD, ABI Body Fluid Fkfd9861-39-37 16:10:00* Test Item Value Reference Range Interpretation Comments Body Fluid Type (test code = 39334-6) PLEURAL [facility] Texas[facility] Fluid Jjtvp4605-75-41 16:10:00* Test Item Value Reference Range Interpretation Comments Body Fluid Color (test code = 6824-7) YELLOW [facility] Texas[facility] Fluid Nmbmiktumt2318-84-53 16:10:00 * Test Item Value Reference Range Interpretation Comments Body Fluid Appearance (test code = 9335-1) SL.CLOUDY [facility] TexasCHEST XRAY POST OGRFLQOSP5603-87-39 15:25:00 [facility] [address] [address] Patient Name: JOSHUA WHEELER MR #: [id number] : 1960 Age/Sex: 58/M Req #: [id number] Adm Physician: SUNG VAIL MD Ordered by: KEVIN BANDA MD Report #: [id number] Location: MED/SURG2 Room/Bed: [facility] Procedure: [id number] DX /CHEST XRAY POST PROCEDURE Exam Date: Exam Time: REPORT STATUS: Signed EXAMINATION: CHEST XRAY POST PROCEDURE INDICATION: Post procedure COMPARISON: Chest radiograph 07/06/2019 FINDINGS: LINES/TUBES:None LUNGS :The left lung is well-inflated. The right lung is moderately inflated. Patchy right greater than left bibasilar opacities. PLEURA:Small left pleural eff usion. Moderate circumferential right pleural effusion. No pneumothorax status post left thoracentesis. MEDIASTINUM:The cardiomediastinal silhouette appe ars unchanged in size and shape. BONES/SOFT TISSUES:No acute osseous inju ry. ABDOMEN:No free air under the diaphragm. IMPRESSION: No pneu mothorax status post left thoracentesis. Small residual left pleural effusion. Moderate circumferential right pleural effusion. Right greater than left b ibasilar opacities, most likely subsegmental atelectasis. Signed by: Jerome Banda MD on 07/28/2019 3:27 PM Dictated By: KEVIN BANDA MD Electronicall y Signed By: KEVIN BANDA MD on 07/28/19 1527 Transcribed By: LOREE on 07/28/19 1527 COPY TO: KEVIN BANDA MD CHEST SINGLE (PORTABLE)2019-07-27 08:50:00 [place] [address] [address] Patient Name: JOSHUA WHEELER MR #: [id number] : 1960 Age/Sex: 58/M Req #: [id number] Adm Physician: SUNG VAIL MD Ordered by: GERMAIN ARNETT MD Report #: [id number] Location: MED/SURG2 Room/Bed: 2141 Procedure: [id number] DX/CHEST SINGLE (PORTABLE) Exam Date: 07/27/19 Exam Time: 0550 REPORT STATUS: Signed EXAMINATION: CHEST SINGLE (PORTABLE) INDICATION: Pleural effusion COMPARISON: Numerous prior chest radiographs, most recently 07/24/2019 FINDINGS: LINES/TUBES:EKG leads overlie the chest. LUNGS: Patchy bi basilar opacities right greater than left. Right apical opacity. Bilateral pu lmonary venous congestion. PLEURA: Bilateral pleural effusions.No pneumotho rax. MEDIASTINUM:The cardiomediastinal silhouette appears unchanged in size and shape. BONES/SOFT TISSUES:No acute osseous injury. ABDOMEN:No f ree air under the diaphragm. IMPRESSION: No interval change. Bilateral p ulmonary venous congestion, bibasilar patchy density and bilateral pleural eff usions. Signed by: Dr. Lui Vidal M.D. on 07/27/2019 9:23 AM Dictated By: ARLEEN VIDAL MD, MD 2 Transcribed By: LOREE on 07/27/19922 COPY TO: GERMAIN ARNETT MD Random Vancomycin Wtcqo9137-88-80 20:29:00* Test Item Value Reference Range Interpretation Comments Random Vancomycin Level (test code = 02602-9) 9.2 [facility] TexasCoronavirus (PCR)2019-07-25 15:17:00* Test Item Value Reference Range Interpretation Comments Coronavirus (PCR) (test code = Coronavirus (PCR)) NOT DETECTED NOTD ETECTED SARS-COV-2 (COVID19), HIGHRISK, RT-PCRNegative results do not preclude SARS-CoV- 2 infection and should not be used as the sole basis for patient management deci sions. Negative results must be combined with clinical observations, patient his tory, and epidemiological information. Optimum specimen types and timing for pea k viral levels during infections caused by SARS-CoV-2 have not been determined. Collection of multiple specimens ot types of specimens may be necessary to detec t virus. Improper specimen collection and handling, sequence variability under p rimers/probes, or organism present below the limit of detection may lead to fals e negative results. Positive and negative predictive values of testing are highl y dependent on prevalance. False negative test results are more likely when prev alence is high.The expected result is negative (not detected).The SARS-CoV-2 dany t is intended for the qualitative detection of nucleic acid from SARS-CoV-2 in n asopharyngeal and oropharyngeal swab samples from patients who meet COVID-19 cli nical and or epidemiological criteria. For lower respiratory tract specimens, th e assay is submitted for authoriztion by FDA under an Emergency Use Authorizatio n (EUA). Testing methodology is real time RT-PCR. If received as separate collec tion devices, nasopharygeal and oropharyngeal specimens are combined for analysi s. Additional specimens may be split to a separate accession for analysi and rep orting as this test includes a single unit of service.Test results must be corre lated with clinical presentation and evaluated in the context of other laborator y and epidemiologic data. Test performance can be affected because the epidemiol ogy and clinical spectrum of infection caused by SARS-CoV-2 is not fully known. For example, the optimum types of specimens to collect and when during the cours e of infection these specimens are most likely to contain detectable viral RNA m ay not be known.This test has not been Food and Drug Administration (FDA) cleare d or approved and has been authorized by FDA under an Emergency Use Authorizatio n (EUA). The test is only authorized for the duration of the declaration that ci rcumstances exist justifying the authorization of emergency use of in vitro diag nostic tests for detection and/or diagnosis of SARS-CoV-2 under section 564(b) o f the Act, 21 U.S.C. section 360bbb-3(b)(1), unless the authorization is termina roro or revoked sooner. [facility] are certified under the C linical Laboratory Improvement Amendments of 1988 (CLIA), 42 U.S.C. section 263a , to perform high complexity tests.Specimen sent to [facility] and testing performed by [facility] [address] [place] [address] [phone] Director: Santos Olvera M.D.CLIA # [id number] SINGLE (PORTABLE) 2019-07-25 09:41:00 [facility] [address] [place] [address] Patient Name: JOSHUA WHEELER MR #: [id number] : 1960 Age/Sex: 58/M Req #: [id number] Adm Physician: SUNG VAIL MD Ordered by: PHYLLIS GARCIA MD Report #: [id number] Location: MED/SURG2 Room/Bed: [facility] Procedure: [id number] DX/CHEST SINGLE (PORTABLE) Exam Date: 07/25/19 Exam Time: 0630 REPORT STATUS: Sign ed EXAMINATION: CHEST SINGLE (PORTABLE) INDICATION: Pleural effusio n COMPARISON: Numerous prior chest radiographs, most recently 07/24/2019 FINDINGS: LINES/TUBES:EKG leads overlie the chest. LUNGS:The jasen ngs are moderately inflated. Patchy bibasilar opacities right greater than lef t. PLEURA: Bilateral pleural effusions, waxing and waning compared to most recent prior chest radiographs. No pneumothorax. MEDIASTINUM:The cardiome diastinal silhouette appears unchanged in size and shape. BONES/SOFT TISS UES:No acute osseous injury. ABDOMEN:No free air under the diaphragm. IMPRESSION: Waxing and waning right greater than left pleural effusion, not s ignificant changed compared to multiple prior chest radiographs. Right gr eater than left bibasilar patchy opacities, more likely subsegmental atelectas is than superimposed aspiration or pneumonia. Signed by: Kevin Banda MD on 07/25/2019 9:47 AM Dictated By: KEVIN BANDA MD 6 Transcribed By: LOREE on 07/25/19946 CO PY TO: PHYLLIS GARCIA MD CHEST SINGLE (PORTABLE)2019-07-24 10:32:00 [address] [address] Patient Name: JOSHUA WHEELER MR #: [id number] : 1960 Age/Sex: 58/M Req #: [id number] Adm Physician: Ordered by: PHYLLIS GARCIA MD Report #: [id number] Location: ER Room/Bed: Procedure: 032 08 DX/CHEST SINGLE (PORTABLE) Exam Date: 07/24/19 Ex am Time: 1000 REPORT STATUS: Signed Chest, 1 view, 07/24/2019. History: Cough, fever. Compariso n: 07/08/2019. Findings: The cardiomediastinal silhouette and pulmonary vasc ulature are prominent with hazy bilateral perihilar and bibasilar opacities. T here is blunting of the costophrenic sulci bilaterally with widening of the ri ght pleural margin. There are no acute osseous or soft tissue abnormalities. Impression: Findings suggestive of CHF with bibasilar atelectasis and ef fusions, right greater than left. Superimposed pneumonia cannot be excluded. Signed by: Alex Elaine on 07/24/2019 10:35 AM Dictated By: ALEX BRICEÑO MD 34 Transcribe d By: LOREE on 07/24/191034 COPY TO: PHYLLIS GARCIA MD Urine [id number] 09:48:00* Test Item Value Reference Range Interpretation Comments Urine WBC (test code = 5821-4) 03-19 0-5 [facility] TexasU[facility] PCB0339-51-48 09:48:00* Test Item Value Reference Range Interpretation Comments Urine RBC (test code = 47355-5) 03-19 0-5 [facility] Texas[facility] Lwqlfovj8914-33-22 09:48:00* Test Item Value Reference Range Interpretation Comments Urine Bacteria (test code = 73409-5) MODERATE NONE [facility] TexasUrine Epithelial Zxyvp9815-47-40 09:48:00 * Test Item Value Reference Range Interpretation Comments Urine Epithelial Cells (test code = 14736-8) MODERATE NONE [facility] TexasUrine Calcium Oxalate Dwtzuutd7815-27-38 09:48:00* Test Item Value Reference Range Interpretation Comments Urine Calcium Oxalate Crystals (test code = 5774-5) RARE FE W [facility] TexasGroup A Streptococcus Jvvvhp0767-67-27 09:48:00* Test Item Value Reference Range Interpretation Comments Group A Streptococcus Screen (test code = 66239-0) NEGATIVE NEG ATIVE [facility] TexasInfluenza Virus Types A,B Antigen 2019-07-24 09:39:00* Test Item Value Reference Range Interpretation Comments Influenza Virus Types A,B Antigen (test code = 53257-5) NEGATIVE NEGATIVE [facility] TexasUrine Frgrj9616-62-94 09:37:00* Test Item Value Reference Range Interpretation Comments Urine Color (test code = 5778-6) YELLOW YELLOW [facility] TexasUrine Qynrvwg9213-92-30 09:37:00* Test Item Value Reference Range Interpretation Comments Urine Clarity (test code = 89776-8) CLEAR CLEAR [facility] TexasUrine Specific Erszoxh7212-04-69 09:37:00 * Test Item Value Reference Range Interpretation Comments Urine Specific Jackson (test code = 5811-5) 1.020 1.010-1.02 5 [facility] TexasUrine qR5254-70-20 09:37:00* Test Item Value Reference Range Interpretation Comments Urine pH (test code = 50636-8) 8.5 5-7 [facility] TexasU[facility] Leukocyte Oeaupqkh6218-97-35 09:37:00* Test Item Value Reference Range Interpretation Comments Urine Leukocyte Esterase (test code = 5799-2) NEGATIVE NEGATIVE [facility] TexasU[facility] Yxlbxuo1283-79-10 09:37:00* Test Item Value Reference Range Interpretation Comments Urine Nitrite (test code = 07851-6) NEGATIVE NEGATIVE [facility] TexasU[facility] Ggfjdwj1100-64-26 09:37:00* Test Item Value Reference Range Interpretation Comments Urine Protein (test code = 5804-0) >=300 NEGATIVE [facility] TexasUrine Glucose (UA)2019-07-24 09:37:00* Test Item Value Reference Range Interpretation Comments Urine Glucose (UA) (test code = 2349-9) NEGATIVE NEGATIVE [facility] TexasU[facility] Xwbsrmw9021-26-87 09:37:00* Test Item Value Reference Range Interpretation Comments Urine Ketones (test code = 57399-3) NEGATIVE NEGATIVE [facility] Nnabvxysdxjr4721-37-52 09:37:00* Test Item Value Reference Range Interpretation Comments Urine Urobilinogen (test code = 69754-9) 0.2 0.2-1 [facility] TexasU[facility] Pxcbqrsnb2499-30-57 09:37:00* Test Item Value Reference Range Interpretation Comments Urine Bilirubin (test code = 1978-6) NEGATIVE NEGATIVE [facility] TexasUrine Jdyzo8415-03-50 09:37:00* Test Item Value Reference Range Interpretation Comments Urine Blood (test code = 94268-9) TRACE NEGATIVE [facility] of TexasMethylmalonic Rfap3849-32-71 07:50:00* Test Item Value Reference Range Interpretation Comments Methylmalonic Acid (test code = 66823-1) 330 Reference Range:0 - 378 nmol/LDisclaimer: This test was developed and its perfo rmance characteristics determined by [facility]. It has not been cleared or approve d by the Food and Drug Administration.Testing performed by:[facility] [place] [phone]. Solomon Chris [address] (KUB)2019-07-11 14:06:00 [facility] [address] [address] Patient Name: JOSHUA WHEELER MR #: [id number] : 1960 Age/Sex: 58/M Req #: [id number] Adm Physician: BRETT CAZARES MD Ordered by: BRETT CAZARES MD Report #: [id number] Location: [facility]/SURG3 Room/Bed: [facility] Procedure: 5553-2453 DX/ABDOMEN-1VIEW (KU) Exam Date: 07/11/19 Exam Time : 1333 REPORT STATUS: Signed Exa m: KUB - 2 views Indication: Constipation Comparison: <None.> Findings: Nonobstructive bowel gas pattern. Increased stool burden in the rectum and sigmoid colon, consistent with constipation. No free air. No acute osseous injury. Impression: Increased stool burden in the rectum and sigmoid colon, compatible with constipation. Signed by: Kevin Banda MD on 07/11/2019 2:07 PM Dictated By: KEVIN BANDA MD 9320 Transcribed By: LOREE on 07/11/191 COPY TO: BRETT CAZARES MD Hepatitis A IgM Dyaxehdb8919-54-98 14:26:00 * Test Item Value Reference Range Interpretation Comments Hepatitis A IgM Antibody (test code = 31064-1) Negative Negativ anna JACOBSON [facility] FallsHepatitis C Clzdywjg0354-98-46 14:26:00* Test Item Value Reference Range Interpretation Comments Hepatitis C Antibody (test code = 30916-5) <0.1 0.0-0.9 Negative: < 0.8 Indeterminate: 0.8 - 0.9 Positive: > 0.9 The CDC recommends that a positive HCV antibody result be followed up with a HCV Nucleic Acid Amplification test (320654).Performed at: [facility] [id number] Director: Alec Javier MD, Phone: [phone] [facility] of TexasCHEST SINGLE (PORTABLE) 2019-07-08 07:43:00 [place] [address] Patient Name: JOSHUA WHEELER MR #: [id number] : 1960 Age/Sex: 58/M Req #: [id number] [facility] Physician: BRETT CAZARES MD Ordered by: BRETT CAZARES MD Report #: [id number] Location: [facility] Room/Bed: [address] [address] [address] Procedure: [id number] DX/CHEST SINGLE (PORTABLE) Exam Date: 07/08/19 Exam Time: 0550 REPORT STATUS: Signed EXAMINATION: CHEST SINGLE (PORTABLE) INDICATION: Pleural effusion. COMPARISON: Chest radiograph 07/06/2019. FINDINGS: TUBES and LINES: None. LUNGS/PLEURA: There are moderate bilateral pleural effusions with consolidative opacities in the mid and lower lung zones. Perihilar and interst itial opacities. No large pneumothorax. Ill-defined lucencies at the right carmen g base, unchanged, may represent loculated hydropneumothorax. HEART AND M EDIASTINUM: The cardiomediastinal silhouette is unremarkable. BONES AN D SOFT TISSUES: No acute osseous lesion. Soft tissues are unremarkable. UPPER ABDOMEN: No free air under the diaphragm. IMPRESSION: Findings of pulmonary edema, moderate bilateral pleural effusions and lower lung zone opacities, which may represent atelectasis or pneumonia in the appropriate cl inical setting. Unchanged lucencies at the right lung base may represent l oculated hydropneumothorax. Signed by: Dr. Liz Orozco MD on 07/08/2019 7: 45 AM Dictated By: LIZ OROZCO MD 4 Transcribed By: LOREE on 07/08/19744 COPY TO: BRETT CAZARES MD Iron Cnukp2467-60-14 05:10:00* Test Item Value Reference Range Interpretation Comments Iron Level (test code = 2498-4) 35 65-175 [facility] TexasTotal Iron Binding Jdjakuhz9902-29-25 05:10:00* Test Item Value Reference Range Interpretation Comments Total Iron Binding Capacity (test code = 2500-7) 118 261-4 78 [facility] TexasPercent Iron Iswarwaqge2117-48-70 05:10:00* Test Item Value Reference Range Interpretation Comments Percent Iron Saturation (test code = 2502-3) 30 15-50 [facility] of TexasTransferrin2020-03-09 05:10:00* Test Item Value Reference Range Interpretation Comments Transferrin (test code = 3034-6) 84 174-364 [facility] TexasCHEST SINGLE (PORTABLE)2019-07-06 16:35:00 [facility] [address] [place] [address] Patient Name: JOSHUA WHEELER MR #: [id number] : 1960 Age/Sex: 58/M Req #: [id number] Adm Physician: Ordered by: ALEX DELUCA WARP STARTER Report #: [id number] Location: ER Room/Bed: Procedure: [id number] DX/CHEST SINGLE (PORTABLE) Exam Date: 07/06/19 Exam Time: 1442 REPORT STATUS: Signed EXAMINATION: CHEST SINGLE (PORTABLE) INDICATION: Sick, weak. C OMPARISON: Chest radiograph 06/04/2019. FINDINGS: TUBES and LINES: I nterval removal of right-sided chest tube. LUNGS/PLEURA: There are moderate bilateral pleural effusions with consolidative opacities in the mid and lower lung zones. Perihilar and interstitial opacities. No large pneumothorax. Ill- defined lucencies at the right lung base, unchanged, may represent loculated h ydropneumothorax. HEART AND MEDIASTINUM: The cardiomediastinal silhouette is unremarkable. BONES AND SOFT TISSUES: No acute osseous lesion. Sof t tissues are unremarkable. UPPER ABDOMEN: No free air under the diaphrag m. IMPRESSION: Findings of pulmonary edema, moderate bilateral pleur al effusions and lower lung zone opacities, which may represent atelectasis or pneumonia in the appropriate clinical setting. Interval removal of righ t-sided chest tube. No large pneumothorax. Ill-defined lucencies at the right lung base, unchanged, may represent loculated hydropneumothorax. Signed b y: Dr. Liz Orozco MD on 07/06/2019 4:39 PM Dictated By: LIZ OROZCO MD Savannah ctronically Signed By: LIZ OROZCO MD on 07/06/191638 Transcribed By: LOREE pérez 07/06/191638 COPY TO: ALEX DELUCA WARP STARTER Activated Partial Thromboplast Atdl8345-14-09 15:24:00* Test Item Value Reference Range Interpretation Comments Activated Partial Thromboplast Time (test code = 00039-2) 49.7 23.8-35.5 [facility] TexasProthrombin Zjsu9787-70-44 15:13:00* Test Item Value Reference Range Interpretation Comments Prothrombin Time (test code = 5902-2) 14.4 11.9-14.5 [facility] of TexasProthromb Time International Ratio 2019-07-06 15:13:00* Test Item Value Reference Range Interpretation Comments Prothromb Time International Ratio (test code = 6301-6) 1.05 Oral Anticoagulant Therapy INR Values:1. Low Intensity Therapy 1.5 - 2.02 . Moderate Intensity Therapy 2.0 - 3.03. High Intensity Therapy(1) 2.5 - 3. 54. High Intensity Therapy(2) 3.0 - 4.05. Panic Value INR > 5.0 [facility] TexasRAD, CHEST, 2 OCWIQ7708-19-08 13:56:00 PCP- Dr. Kiran Garduno [address] [place] [phone] for Exam:->removed chest tubeFINAL REPORT INDICATION: removed chest tube COMPARISON: Earlier same day TECHNIQUE: Frontal and lateral views of the chest. FINDINGS: Lungs and pleura: Right greater than left effusion and adjacent compressive atelectasis, not significantly changed Heart and mediastinum: Normal heart size. Unremarkable mediastinal contours.Osseous structures: No acute abnormality.Additional findings: None. Signed: Marley Jay MDReport Verified Date/Time: 07/01/2019 13:56:42 Reading Location: [facility] Radiology Reading Room , CHEST, 2 VIEWS 2019-07-01 12:44:00PCP- Dr. Kiran Garduno [address] [place] [address] Reason for Exam:->Chest tubeFINAL REPORT INDICATION: Chest tube COMPARISON: None TECHNIQUE: Frontal and lateral views of the chest. FINDINGS: Lungs and pleura: Right-sided chest tube. Small/moderate right effusion. No sizable pneumothorax. Adjacent compressive atelectasis. Mild bilateral interstitial edema. Heart and mediastinum: Normal heart size. Unremarkable mediastinal contours.Osseous structures: No acute abnormality.Additional findings: None. IMPRESSION: Right-sided chest tube. Small/moderate right effusion. No sizable pneumothorax. Adjacent compressive atelectasis. Mild bilateral interstitial edema. Signed: Marley Jay MDRep ort Verified Date/Time: 07/01/2019 12:44:23 Reading Location: [facility] Reading Room Electronically signed by: MARLEY JAY MD on 0 07/01/2019 12:44 PM CHEST SINGLE (PORTABLE)2019-06-04 14:23:00 [place] [address] Patient Name: JOSHUA WHEELER MR #: [id number] : 1960 Age/Sex: 58/M Req #: [id number] Adm Physician: BRETT CAZARES MD Ordered by: BRETT CAZARES MD Report #: [id number] Location: [facility] Room/Bed: [place] [address] Procedure: [id number] DX/CHEST SINGLE (PORTABLE) Exam Date: 06/04/19 Exam Time: 1400 REPORT STATUS: Signed Chest, 1 view, 06/04/2019. History: Pleural effusion. Compariso n: 06/01/2019. Findings: The cardiomediastinal silhouette and pulmonary vascu lature are prominent. Right chest tube is unchanged in position. There is no v isible pneumothorax. Bibasilar opacities are unchanged. There are no acute oss eous or soft tissue abnormalities. Impression: Bibasilar opacities wi thout significant change. Signed by: Alex Elaine on 06/04/2019 2:25 PM Dictated By: ALEX ELAINE MD 24 Transcribed By: LOREE on 06/04/191424 COPY TO: LORY CAZARES MD Platelet Morphology [id number] 07:19:00* Test Item Value Reference Range Interpretation Comments Platelet Morphology Comment (test code = 19349-2) NO EDTA PLT CLUMP S [facility]2019-06[facility]01 15:53:00 [facility] [address] [place] [address] Patient Name: JOSHUA WHEELER MR #: [id number] : 1960 Age/Sex: 58/M Req #: [id number] Adm Physician: BRETT CAZARES MD Ordered by: AMBAR CABRAL WARP STARTER Report #: [id number] Location: [facility] Room/Bed: [place] [address] Procedure: [id number] DX/CHEST SINGLE (PORTABLE) Exam Date: 06/01/19 Exam Time: 1530 REPORT STATUS: Signed EXAMINATION: CHEST SINGLE (PORTABLE) COMPARISON: Chest x-ray performed earlier same day INDICATION: sob [id number] DISCUSSION: HEART AND MEDIASTINUM: Stable cardiomegaly LINES: Right apical chest tube is stable in position LUNGS/PLEURA: Right apical hydropneumothorax is stable. Loculated right basilar pneumothorax has improved. Increased right ba silar opacity which could be due to increasing atelectasis. Left basilar opaci ty likely due to combination of effusion and atelectasis is unchanged. SUSAN TANO AND SOFT TISSUES: No focal osseous lesion. The soft tissues are normal. IMPRESSION: 1. No change in right apical hydropneumothorax. 2. I mproved loculated right pneumothorax. 3. Increased right basilar opacity likely due to worsening atelectasis. 4. Stable left basilar opacity has i ncreased likely due to combination of effusion and atelectasis. Signed by : Reza Mooney MD on 06/01/2019 3:58 PM Dictated By: REZA Damon MD 57 Transcrib ed By: LOREE on 06/01/191557 COPY TO: AMBAR CABRAL NP Stool Occult [id number] 15:25:00* Test Item Value Reference Range Interpretation Comments Stool Occult Blood (test code = 2335-8) NEGATIVE NEGATIVE [facility] 2 [id number] 08:00:00 [facility] [address] [place] [address] Patient Name: JOSHUA WHEELER MR #: [id number] : 1960 Age/Sex: 58/M Req #: [id number] Adm Physician: BRETT CAZARES MD Ordered by: KEN SCOTT MD Report #: [id number] Location: [facility] Room/Bed: [place] [address] Procedure: [id number] DX /CHEST 2 VIEWS Exam Date: 06/01/19 Exam Time: 0703 REPORT STATUS: Signed EXAMINATION: CHEST 2 VIEWS COMPARISON: Chest x-rayS 05/30/2019 INDICATION:f/u DISCUSSION: HEART AND MEDIASTINUM: Stable cardiomegaly LINES: Right IJ catheter has been removed. Right apical chest tube is stable in pos ition LUNGS/PLEURA: Right apical hydropneumothorax is stable. Loculated ri ght basilar pneumothorax is increasing in the amount of fluid. Left basilar op acity likely due to combination of effusion and atelectasis has increased. BONES AND SOFT TISSUES: No focal osseous lesion. The soft tissues are normal. IMPRESSION: 1. No change in right apical hydropneumothorax. 2. Increasing amount of fluid in loculated left hydropneumothorax. 3. Left basilar opacity has increased likely due to combination of effusion and ate lectasis. Signed by: Reza Mooney MD on 06/01/2019 8:09 AM Di ctated By: REZA MOONEY MD 8 Transcribed By: LOREE on 06/01/19808 COPY TO: KEN CHANEL MD CHEST SINGLE (PORTABLE)2019-05-30 06:43:00 [place] [address] Patient Name: JOSHUA WHEELER MR #: [id number] : 1960 Age/Sex: 58/M Req #: [id number] Adm Physician: BRETT CAZARES MD Ordered by: MARILIN JUAN MD Report #: [id number] Location: [facility] Room/Bed: [place] [address] Procedure: [id number] DX/CHEST SINGLE (PORTABLE) Exam Date: 05/30/19 Exam Time: 0510 REPORT STATUS: Signed EXAMINATION: CHEST SINGLE (PORTABLE) COMPARISON: Chest x-rayS 05/29/19 INDICATION: Chest tube removal chest tube [id number] DISCUSSION: Frontal view of the chest obtained at 0521 hours. HEART AND MEDIASTINUM: Stable cardiomegaly LINES: Right IJ catheter stable in po sition. Right basilar chest tube has been removed. Right apical chest tube is stable in position LUNGS/PLEURA: Right apical hydropneumothorax is stable. Loculated right basilar pneumothorax is increasing in the amount of fluid. Re trocardiac airspace opacity is similar. BONES AND SOFT TISSUES: No focal osseous lesion. The soft tissues are normal. IMPRESSION: No change in right apical hydropneumothorax. Increasing amount of fluid in loculated left hydropneumothorax. Stable retrocardiac opacity, likely atelectasis and small pleural effusion. Signed by: Dr. Wes Lopez MD on 05/30/2019 6:45 AM Dictated By: WES LOPEZ MD 4 Transcribed By: LOREE on 05/30/19644 COPY TO: MARILIN JUAN MD CHEST SINGLE (PORTABLE)2019-05-29 19:34:00 [place] [address] Patient Name: JOSHUA WHEELER MR #: [id number] : 1960 Age/Sex: 58/M Req #: [id number] Adm Physician: BRETT CAZARES MD Ordered by: MARILIN JUAN MD Report #: [id number] Location: [facility] Room/Bed: [place] [address] Procedure: [id number] DX/CHEST SINGLE (PORTABLE) Exam Date: Exam Time: REPORT STATUS: Signed INDICATI ON: Chest tube replaced COMPARISON: CT on May 26, 2019 and chest x-ra y on 05/29/2019 DISCUSSION: None IMPRESSION: 1. Right chest tube overlying the right upper lung and right IJ catheter with tip overlying the S VC. 2. Improved aeration of the lung. Opacity at the right lung base with l ucency likely related to loculated hydropneumothorax. Signed by: Dr. Faith Vogel M.D. on 05/29/2019 7:38 PM Dictated By: ADAMS VOGEL MD 37 Transcribed By: LOREE on 05/29/191937 COPY TO: MARILIN JUAN MD CHEST SINGLE (PORTABLE)2019-05-29 06:00:00 [place] [address] Patient Name: JOSHUA WHEELER MR #: [id number] : 1960 Age/Sex: 58/M Req #: [id number] Adm Physician: BRETT CAZARES MD Ordered by: MARILIN JUAN MD Report #: [id number] Location: [facility] Room/Bed: [place] [address] Procedure: [id number] DX/CHEST SINGLE (PORTABLE) Exam Date: 05/29/19 Exam Time: 0515 REPORT STATUS: Signed EXAMINATION: CHEST SINGLE (PORTABLE) COMPARISON: CTA chest 05/26/2019, chest x-ray 05/28/2019 INDICATION: Follow up s/p decortication, chest tubes 20190529 Y DISCUSSION: Frontal view of the chest ob tained at 0538 hours. HEART AND MEDIASTINUM: Stable cardiomegaly LI TANO: Right IJ catheter terminates in the SVC. Right apical and basilar chest tubes are stable. LUNGS: Right apical pleural thickening is increasing sug gestive of hydropneumothorax. Loculated hydropneumothorax in the right lung ba se is similar.. Increasing retrocardiac airspace disease. PLEURA: Small left pleural effusion. BONES AND SOFT TISSUES: No focal osseous lesion. Th e soft tissues are normal. IMPRESSION: Increasing fluid in the right carmen g apex is suggestive of hydropneumothorax. Stable right basilar hydropneumotho rax. Increasing retrocardiac airspace disease suggestive of atelectasis. Sm all left pleural effusion. Stable support devices. Signed by: Dr. Chuck Lopez MD on 05/29/2019 6:06 AM Dictated By: WES LOPEZ MD 5 Transcribed By: LOREE on 05/29/19605 COPY TO: MARILIN JUAN MD CHEST SINGLE (PORTABLE)2019-05-28 15:04:00 [place] [address] Patient Name: JOSHUA WHEELER MR #: [id number] : 1960 Age/Sex: 58/M Req #: [id number] Adm Physician: BRETT CAZARES MD Ordered by: MARILIN JUAN MD Report #: [id number] Location: [facility] Room/Bed: [place] [address] Procedure: [id number] DX/CHEST SINGLE (PORTABLE) Exam Date: Exam Time: REPORT STATUS: Signed EXAMINATION: CHEST SINGLE (PORTABLE) COMPARISON: Chest radiograph 05/28/2019 at 9:[address] chest 05/26/2019. INDICATION: Chest tube. DISCUSSION: LINES: Two chest tubes in the right hemithorax are stable in position. Right IJ cat heter terminates in the SVC LUNGS/PLEURA: Right apical pneumothorax measur es 2.4 cm, unchanged. Loculated hydropneumothorax in the right lung base is si milar. Unchanged small left pleural effusion. Mild left basilar opacity, likel y atelectasis. No new consolidation. Central vascular congestion with mild int erstitial opacities. HEART AND MEDIASTINUM: Stable cardiomegaly BONE S AND SOFT TISSUES: Stable. IMPRESSION: Unchanged right apical pneumoth orax and loculated right basilar hydropneumothorax with stable right-sided sridevi st tubes. Small left pleural effusion with associated atelectasis. C entral vascular congestion. Signed by: Dr. Liz Orozco MD on 05/28/2019 3:08 PM Dictated By: LIZ OROZCO MD 07 Transcribed By: LOREE on 05/28/19 150 COPY TO: MARILIN GORDON MD CHEST SINGLE (PORTABLE)2019-05-28 06:04:00 [place] [address] Patient Name: JOSHUA WHEELER MR #: [id number] : 1960 Age/Sex: 58/M Req #: [id number] Adm Physician: BRETT CAZARES MD Ordered by: MARILIN JUAN MD Report #: [id number] Location: [facility] Room/Bed: [place] [address] Procedure: [id number] DX/CHEST SINGLE (PORTABLE) Exam Date: Exam Time: REPORT STATUS: Signed EXAMINATION: CHEST SINGLE (PORTABLE) COMPARISON: Chest x-ray 05/27/2019, chest x-ray 05/26/2019 INDICATION: Follow up s/p decortication, chest tubes Y DISCUSSION: Frontal view of the chest obtained at 0534 hours. HEART AND MEDIASTINUM: Stable cardiomegaly LINES: 2 chest tubes in the right hemithorax are stable in position. Right IJ catheter terminates in the SVC LUNGS/PLEURA: Right apical pneumothorax measures 2.4 cm (previously, 2.5 cm). Loculated hydropneumothorax in the right lung base is similar. Mild left basilar atelectasis. BONES AND SOFT TISSUES: Stable. IMPRESSION: No change in right apical pneumothorax or loculated right basilar hydropneu mothorax. Stable line and tubes. No new findings. Signed by: Dr. Wes Lopez MD on 05/28/2019 6:06 AM Dictated By: WES LOPEZ MD Elect ronically Signed By: WES LOPEZ MD on 05/28/19605 Transcribed By: YOSEPH DAVID on 05/28/19605 COPY TO: MARILIN JUAN MD CHEST SINGLE (PORTABLE)2019-05-27 05:49:00 [place] [address] Patient Name: JOSHUA WHEELER MR #: [id number] : 1960 Age/Sex: 58/M Req #: [id number] Adm Physician: BRETT CAZARES MD Ordered by: MARILIN JUAN MD Report #: [id number] Location: [facility] Room/Bed: [place] [address] Procedure: [id number] DX/CHEST SINGLE (PORTABLE) Exam Date: 05/27/19 Exam Time: 0500 REPORT STATUS: Signed EXAMINATION: CHEST SINGLE (PORTABLE) COMPARISON: Chest x-ray and CT c hest 05/26/2019 INDICATION: Follow up s/p decortication, chest tubes [id number] Y DISCUSSION: Frontal view of the chest obtained at 0522 hours. HEART AND MEDIASTINUM: The heart is top normal in size, sta ble LINES: Right IJ catheter terminates in the SVC. Two right chest tube s are stable in position. Dual lumen central venous catheter has been removed. LUNGS/PLEURA: Right apical pneumothorax measures 2.5 cm (by CT, 2.4 cm). Lateral right pleural thickening is stable. Hydropneumothorax in the base of the right chest is stable. Trace left pleural effusion. BONES AND SOFT TIS SUES: No focal osseous lesion. The soft tissues are normal. IMPRESSION: No change in right apical pneumothorax. Right basilar hydropneumothorax is stable. Trace left pleural effusion. No new findings in the left chest. Si gned by: Dr. Wes Lopez MD on 05/27/2019 5:52 AM Dictated By: ROHIT LOPEZ MD 2 Transcribed By: LOREE on 05/27/1952 COPY TO: MARILIN JUAN MD Percent Reticulocyte [id number] 05:47:00* Test Item Value Reference Range Interpretation Comments Percent Reticulocyte Count (test code = 10666-3) 1.6 0.8-2 .2 [facility] [id number] 09:39:00 [facility] [address] [place] [address] Patient Name: JOSHUA WHEELER MR #: [id number] : 1960 Age/Sex: 58/M Req #: [id number] Adm Physician: BRETT CAZARES MD Ordered by: MARILIN JUAN MD Report #: [id number] Location: [facility] Room/Bed: [place] [address] Procedure: [id number] CT/CT CHEST WO Exam Date: 05/26/19 Exam Time: 0631 REPORT STATUS: Signed EXAM: CT Ch est WITHOUT intravenous contrast 05/26/2019 7:00 AM INDICATION: Pneumothorax COMPARISON: Chest radiograph 05/15/2019 TECHNIQUE: Chest was scanned utilizi ng a multidetector helical scanner from the lung apex through the level of the adrenal glands without administration of IV contrast. Coronal and sagittal re formations were obtained. Routine protocol was performed. IV CONTRAST: No ne RADIATION DOSE: Total DLP: 481.4 mGy*cm. Dose modulation, iterative recon struction, and/or weight based adjustment of the mA/kV was utilized to reduce the radiation dose to as low as reasonably achievable. COMPLICATIONS: None FINDINGS: LINES/ TUBES: Right IJ central venous catheter terminates at t he superior vena cava. Right basilar and right apical chest tubes in place. LUNGS AND AIRWAYS: The central airways are patent. Bilateral dependent lower lobe subsegmental atelectasis right greater than left. No new focal consoli dation. Lower lobe predominant smooth interlobular septal thickening consiste nt with interstitial pulmonary edema. PLEURA: Moderate right hydropneumotho rax with multiple foci of loculated anterior dependent air within the basilar pleural fluid. Small left pleural effusion. HEART AND MEDIASTINUM: The th yroid gland is normal. No supraclavicular lymphadenopathy. Scattered prominen t axillary and mediastinal lymph nodes not meeting size criteria for lymphaden opathy. No definite hilar lymphadenopathy, difficult to assess in the absence of IV contrast. The heart is enlarged. No pericardial effusion. Atheroscleroti c calcifications involve the aorta, coronary arteries, and proximal great vess els. UPPER ABDOMEN: Limited non-contrast views of the upper abdomen show no acute abnormality. BONES: Acute minimally displaced anterolateral righ t third rib fracture, mildly displaced acute lateral right sixth rib fracture, and nondisplaced lateral right seventh rib fracture. SOFT TISSUES: Diffu se subcutaneous soft tissue edema. IMPRESSION: Moderate right hydropneum othorax. Right apical and basilar chest tubes in place. Acute fractures i nvolving the right third, sixth, and seventh ribs. Pulmonary interstitial e dex. No new consolidation. The above findings were discussed with Fabiola Pérez on 05/26/2019 9:39 AM, who responded indicating that the communication was un derstood. Signed by: Kevin Banda MD on 05/26/2019 9:53 AM Dictated By : KEVIN BANDA MD 2 Trans cribed By: LOREE on 05/26/19952 COPY TO: MARILIN JUAN MD CHEST SINGLE (PORTABLE)2019-05-26 09:12:00 [place] [address] Patient Name: JOSHUA WHEELER MR #: [id number] : 1960 Age/Sex: 58/M Req #: [id number] Adm Physician: BRETT CAZARES MD Ordered by: MARILIN JUAN MD Report #: [id number] Location: [facility] Room/Bed: [place] [address] Procedure: [id number] DX/CHEST SINGLE (PORTABLE) Exam Date: 05/26/19 Exam Time: 0656 REPORT STATUS: Signed EXAMINATION: CHEST SINGLE (PORTABLE) INDICATION: Pneumothorax CO MPARISON: Chest radiograph 05/25/2019 FINDINGS: LINES/TUBES:Right chest tubes, right and left IJ central venous catheters appear unchanged. EKG leads overlie the chest. LUNGS:No new focal consolidation or pulmonary laine a. PLEURA:Slight interval decrease in size of right apical pneumothorax, me asuring up to 18 mm maximal thickness. MEDIASTINUM:The cardiomediastinal silhouette appears unchanged in size and shape. BONES/SOFT TISSUES:No acu te osseous injury. ABDOMEN:No free air under the diaphragm. IMPRESS ION: Slight interval decrease of right apical pneumothorax. Support lines and tubes unchanged. No new focal consolidation. Signed by: Kevin Banda MD on 05/26/2019 9:14 AM Dictated By: KEVIN BANDA MD 3 Transcribed By: LOREE on 05/26/19913 COPY TO: MARILIN JUAN MD CHEST SINGLE (PORTABLE)2019-05-25 09:37:00 [place] [address] Patient Name: JOSHUA WHEELER MR #: [id number] : 1960 Age/Sex: 58/M Req #: [id number] Adm Physician: BRETT CAZARES MD Ordered by: MARILIN JUAN MD Report #: [id number] Location: [facility] Room/Bed: [place] [address] Procedure: [id number] DX/CHEST SINGLE (PORTABLE) Exam Date: 05/25/19 Exam Time: 0510 REPORT STATUS: Signed EXAMINATION: CHEST SINGLE (PORTABLE) INDICATION: Follow up s/p decort ication, chest tubes COMPARISON: Chest radiograph 05/24/2019. FIN DINGS: TUBES and LINES: Unchanged right upper and lower chest tubes. Left IJ hemodialysis catheter and right IJ central venous catheter terminate at the cavoatrial junction. LUNGS: Mild interstitial opacities, right greater than left. Patchy opacities in the right lower lung. No new consolidation. PL EURA: Slightly increased moderate right apical pneumothorax, measuring up to 1 .8 cm and unchanged loculated right basilar pneumothorax. HEART AND MEDIAST INUM: The cardiomediastinal silhouette is unremarkable. BONES AND SOFT TISSUES: No acute osseous abnormality. UPPER ABDOMEN: No free air under the diaphragm. IMPRESSION: Right-sided chest tubes with moderate rig ht pneumothorax, unchanged at the base, and slightly increased at the apex. Opacities in the right lower lung, which may represent atelectasis, contusio n, or pneumonia in the appropriate clinical setting. Signed by: Dr. Bronson Orozco MD on 05/25/2019 9:42 AM Dictated By: LIZ OROZCO MD 1 Transcribed By: LOREE on 05/25/19941 COPY TO: MARILIN JUAN MD CHEST SINGLE (PORTABLE)2019-05-24 08:42:00 [place] [address] Patient Name: JOSHUA WHEELER MR #: [id number] : 1960 Age/Sex: 58/M Req #: [id number] Adm Physician: BRETT CAZARES MD Ordered by: MARILIN JUAN MD Report #: [id number] Location: [facility] Room/Bed: [place] [address] Procedure: [id number] DX/CHEST SINGLE (PORTABLE) Exam Date: 05/24/19 Exam Time: 0545 REPORT STATUS: Signed Chest, 1 view, 05/24/2019. History: Follow-up status post decortica tion. Chest tubes. Comparison: 05/22/2019. Findings: The cardiomediast inal silhouette and pulmonary vasculature are within normal limits for a josr ble exam. 2 right-sided chest tubes remain in place with pneumothorax visible at the right lung base, apparently loculated, with pleural line less conspicuo us in the right apex unchanged in appearance. Increased patchy density in the right lower lobe. Bilateral IJ catheters are unchanged in position. There are no acute osseous or soft tissue abnormalities. Impression: Allowing f or technical differences, significant change in a left for technical differenc es, right apical pneumothorax appears decreased but not resolved. No change in loculated right lower hemithorax. Increased density in the right lower lobe may represent developing superimposed infection, or evolving pulmonary contu viviana/atelectasis. Signed by: Dr. Lui Vidal M.D. on 05/24/2019 8: 46 AM Dictated By: ARLEEN VIDAL MD, MD 5 Transcribed By: LOREE on 05/24/19845 COPY TO: MARILIN JUAN MD CHEST SINGLE (PORTABLE)2019-05-23 08:45:00 [place] [address] Patient Name: JOSHUA WHEELER MR #: [id number] : 1960 Age/Sex: 58/M Req #: [id number] Adm Physician: BRETT CAZARES MD Ordered by: MARILIN JUAN MD Report #: [id number] Location: [facility] Room/Bed: [place] [address] Procedure: [id number] DX/CHEST SINGLE (PORTABLE) Exam Date: 05/23/19 Exam Time: 0450 REPORT STATUS: Signed Chest, 1 view, 05/23/2019. History: Chest tube, pneumothorax. Comparison: 05/22/2019. Findings: The cardiomediastinal silhouette and pulmo nary vasculature are within normal limits for a portable exam. 2 right-sided c hest tubes remain in place with pneumothorax visible at the right apex and carmen g base laterally, unchanged in appearance. Bibasilar opacities are noted. Bila teral IJ catheters are unchanged in position. There are no acute osseous or so ft tissue abnormalities. Impression: No significant change in right p neumothorax. Signed by: Alex Elaine on 05/23/2019 8:46 AM Dictated By: ALEX ELAINE MD 084 6 Transcribed By: LOREE on 05/23/19 0846 COPY TO: MARILIN JUAN MD DECLOT VASC IMPLANT/THROMB [id number] 17:02:00 [place] [address] Patient Name: JOSHUA WHEELER MR #: [id number] : 1960 Age/Sex: 58/M Req #: [id number] Adm Physician: BRETT CAZARES MD Ordered by: ANGEL NARAYAN, GERSON NARAYAN Report #: [id number] Location: [facility] Room/Bed: [place] [address] Procedure: [id number] IR/IVAOT VASC IMPLANT/THROMB AG Exam Date: Exam T dorian: REPORT STATUS: Signed A V fistula declot, 05/22/2019. History: ESRD, clotted AV fistula. Com parison: None available. Sterilization Specialist: Dr. Elaine. Medication: 5 cc of 1% l idocaine without epinephrine. Conscious sedation: None. EBL: <5 cc. Fluoro time: 9.2 min. Fluoroscopy dose (DAP): 155.5 cGy-cm2. Specimen: None. Technique: After informed consent and timeout procedure, t he access site was prepped and draped with the standard maximal sterile yasmin r technique. The skin was anesthetized with lidocaine. The left forearm fistu la was accessed using a micropuncture set towards the venous outflow. A 4 Abdullahi nch sheath was placed for multiple contrast runs of the left arm and central v enous system. A 0.035-in. wire was advanced through the micropuncture sheath i nto the vein. A 6 Kosovan sheath was placed. The patient was given 5000 units o f heparin intravenously. A Trerotola device was used for mechanical thrombecto my with simultaneous infusion within the fistula of 2 mg of TPA. Second access was obtained within the fistula towards the arterial venous anastomosis, with a second 6 Kosovan sheath placed. The anastomosis was crossed with a Kumpe c atheter and Glidewire. The anastomosis was then angioplastied using a 6 mm x 4 cm balloon. Follow-up DSA run was performed. Both sheaths were removed and he mostasis was obtained with resorbable pursestring suture. Dressing was applied . The patient tolerated the procedure well without evidence of complication. Findings: 1. Thrombus was present within the fistula from the anastomo sis to the mid forearm. No outflow or central venous stenosis was identified. Left IJ temporary dialysis catheter is noted. Clot was successfully cleared fr om the fistula using combination of mechanical and chemical thrombolysis as de scribed above. 2. Focal 60 % stenosis of the arterial venous anastomosis was identified and treated with angioplasty, with good angiographic result. IMPRESSION: Successful left forearm AV fistula declot using fluoroscopic guid ance guidance. Signed by: Alex Elaine on 05/22/2019 5:13 PM Dictate d By: ALEX ELAINE MD 1 713 Transcribed By: LOREE on 05/22/19 1713 COPY TO: GERSON ORTIZ CHEST 2 [id number] 13:40:00 [place] [address] Patient Name: JOSHUA WHEELER MR #: [id number] : 1960 Age/Sex: 58/M Req #: [id number] Adm Physician: BRETT CAZARES MD Ordered by: MARILIN JUAN MD Report #: [id number] Location: [facility] Room/Bed: [place] [address] Procedure: [id number] DX/CHEST 2 VIEWS Exam Date: 05/22/19 Exam Time: 1100 REPORT STATUS: Signed Chest, 2 views. Clinical history: Evaluate prior to removal of chest tube. [facility] study: May 20, 2019. Findings: The cardiacs foot is unremarkable . 2 right-sided chest tubes are seen in place with some cystic lucency in the right lung base, possibly large blebs versus air within a hydropneumothorax. N o apical pneumothorax is seen. The left lung is clear. The support lines and t ubes remain in place. Degenerative changes are seen. Impression: Cysti c lucency in the right lung base, either blebs within the lung or gas within a hydropneumothorax. The appearance is stable from previous. Signed by: Amy Daugherty MD on 05/22/2019 1:41 PM Dictated By: AMY DAUGHERTY MD [facility] Signed By: AMY DAUGHERTY MD on 05/22/19 1341 Transcribed By: LOREE on 05/22/19 1341 COPY TO: MARILIN JUAN MD CHEST SINGLE (PORTABLE)2019-05-21 14:22:00 [place] [address] Patient Name: JOSHUA WHEELER MR #: [id number] : 1960 Age/Sex: 58/M Req #: [id number] [facility] Physician: BRETT CAZARES MD Ordered by: KEN SCOTT MD Report #: [id number] Location: [facility] Room/Bed: [place] [address] Procedure: [id number] DX /CHEST SINGLE (PORTABLE) Exam Date: 05/21/19 Exam Ti me: 1400 REPORT STATUS: Signed C eloisat, 1 view, 05/21/2019. History: The thorax. Comparison: 05/19. Findings: The cardiomediastinal silhouette and pulmonary vasculature are within normal limits for a portable exam. 2 right-sided chest tubes are p resent. Right pneumothorax visualized at the apex and lung base is unchanged i n appearance. There are opacities are present lung bases. Right IJ central victoria e and left IJ dialysis catheter are present terminating near the cavoatrial ju nction. There are no acute osseous or soft tissue abnormalities. Impress ion: Stable right pneumothorax. Interval placement of left IJ nontunneled bessy lysis catheter. Signed by: Alex Elaine on 05/21/2019 2:25 PM Dict ated By: ALEX ELAINE MD 1425 COPY TO: KEN SCOTT MD CHEST 2 [id number] 18:21:00 [place] [address] Patient Name: JOSHUA WHEELER MR #: [id number] : 1960 Age/Sex: 58/M Req #: [id number] Adm Physician: BRETT CAZARES MD Ordered by: KEN SCOTT MD Report #: [id number] Location: [facility] Room/Bed: [place] [address] Procedure: [id number] DX /CHEST 2 VIEWS Exam Date: 05/20/19 Exam Time: 180 REPORT STATUS: Signed EXAMINATION: CHEST 2 VIEWS INDICATION: Pneumothorax ptx 20190520 COMPARISON: Chest x-ray 05/19/2019 FINDINGS: PA and lateral views TUBES and LINES: Right IJ catheter terminates in the SVC. Dual lumen central venous catheter terminates at the cavoatrial junction. Right chest tube is stable in position in the medial upper chest. Right basilar chest tube is s table in position. LUNGS/PLEURA: Right basilar pneumothorax measures 7 cm in craniocaudal dimension (previously, 3.7 cm). Medial pneumothorax in the upp er right chest is stable. Patchy airspace opacities in the right lung are stab le. The lungs are diffusely hyperinflated at baseline. There are small bilater al pleural effusions. HEART AND MEDIASTINUM: Stable. BONES AND SO FT TISSUES: Stable UPPER ABDOMEN: Unremarkable. IMPRESSION: Stabl e support devices. Enlarging right basilar pneumothorax. Medial pneumothora x in the upper chest is similar. Stable airspace opacities in the right l nuris. Small bilateral pleural effusions are similar. Signed by: Dr. Jose Lopez MD on 05/20/2019 6:26 PM Dictated By: WES LOPEZ MD 25 Transcribed B y: LOREE on 05/20/191825 COPY TO: KEN SCOTT MD IR CONSULT 2019-05-20 18:04:00 [place] [address] Patient Name: JOSHUA WHEELER MR #: [id number] : 1960 Age/Sex: 58/M Req #: [id number] Adm Physician: BRETT CAZARES MD Ordered by: ANGEL NARAYAN, GERSON NARAYAN Report #: [id number] Location: [facility] Room/Bed: [place] [address] Procedure: [id number] DX/IR CONSULT Exam Date: Exam Time: REPORT STATUS: Signed PROCEDURE: Non-tunneled central venous catheter placement Procedural Personnel Attending physici an(s): Kevin Banda MD Fellow physician(s): None Resident physician(s): None Advanced practice provider(s): None Pre-procedure diagnosis: Chronic kidn ey disease Post-procedure diagnosis: Same Indication: Performance of hemodia lysis Additional clinical history: LUE fistula clotted, needs dialysis access Complications: No immediate complications. IMPRESSION: Insertion of left-sided non-tunneled triple-lumen temporary dialysis catheter. Plan: Chest radiograph prior to use. PROCEDURE SUMMARY: - Venous access with ultrasound gu idance - Non-tunneled central venous catheter insertion with fluoroscopic guid ance - Additional procedure(s): None PROCEDURE DETAILS: Pre-procedur e Consent: Informed consent for the procedure including risks, benefits and alternatives was obtained and time-out was performed prior to the procedure. P reparation (MIPS): The site was prepared and draped using all elements of maxi mal sterile barrier technique including sterile gloves, sterile gown, cap, mas k, large sterile sheet, sterile ultrasound probe cover, hand hygiene and cutan eous antisepsis with 2% chlorhexidine. Medical reason for site preparation ex ception (MIPS): Not applicable Anesthesia/sedation Level of anesthesia/se dation: No sedation Access Local anesthesia was administered. The vessel was sonographically evaluated and determined to be patent. Real time ultrasoun d was used to visualize needle entry into the vessel and a permanent image was stored. Vein accessed: Internal jugular vein Access technique: Micropuncture set with 21 gauge needle Catheter placement The access site was dilated and the catheter was placed into the vein over a wire. A sterile dressing was applied. Catheter placed: Bard Trialysis Catheter size (Kosovan): [address] length (cm): 20 Catheter flush: Heparin (1000 units/mL) Catheter securem ent technique: Non-absorbable suture Contrast Contrast agent: None R adiation Dose None. Ultrasound only. Additional Details Additional desc ription of procedure: None Equipment details: None Specimens removed: None Estimated blood loss (mL): Less than 10 Standardized report: SIR_CVA_NonTunne ledCatheter_v3 Attestation Signer name: Kevin Banda MD I attest that I was present for the entire procedure. I reviewed the stored images and agree w ith the report as written. Signed by: Kevin Banda MD on 05/20/2019 6:06 PM Dictated By: KEVIN BANDA MD 07 COPY TO: ERICA ORTIZ NON-TUNNELLED CVC CATH [id number] 18:04:00 [place] [address] Patient Name: JOSHUA WHEELER MR #: [id number] : 1960 Age/Sex: 58/M Req #: [id number] Adm Physician: BRETT CAZARES MD Ordered by: ANGEL NARAYAN, GERSON NARAYAN Report #: [id number] Location: [facility] Room/Bed: [place] [address] Procedure: IR/NON-TUNNELLED CVC CATH PLACMNT Exam Date: 05/20/19 Exam Time: 1645 REPORT STATUS: S igned PROCEDURE: Non-tunneled central venous catheter placement Procedur al Personnel Attending physician(s): Kevin Banda MD Fellow physician(s): Non e Resident physician(s): None Advanced practice provider(s): None Pre-p rocedure diagnosis: Chronic kidney disease Post-procedure diagnosis: Same In dication: Performance of hemodialysis Additional clinical history: LUE fistula clotted, needs dialysis access Complications: No immediate complications. IMPRESSION: Insertion of left-sided non-tunneled triple-lumen temporary dialysis catheter. Plan: Chest radiograph prior to use. PROCEDURE SUMMARY: - Venous access with ultrasound guidance - Non-tunneled central venous catheter insertion with fluoroscopic guidance - Additional procedure(s): None PROC EDURE DETAILS: Pre-procedure Consent: Informed consent for the procedure including risks, benefits and alternatives was obtained and time-out was perfo rmed prior to the procedure. Preparation (MIPS): The site was prepared and sang ped using all elements of maximal sterile barrier technique including sterile gloves, sterile gown, cap, mask, large sterile sheet, sterile ultrasound probe cover, hand hygiene and cutaneous antisepsis with 2% chlorhexidine. Medical reason for site preparation exception (MIPS): Not applicable Anesthesia/s edation Level of anesthesia/sedation: No sedation Access Local anesthes ia was administered. The vessel was sonographically evaluated and determined t o be patent. Real time ultrasound was used to visualize needle entry into the vessel and a permanent image was stored. Vein accessed: Internal jugular vein Access technique: Micropuncture set with 21 gauge needle Catheter placeme nt The access site was dilated and the catheter was placed into the vein over a wire. A sterile dressing was applied. Catheter placed: Bard Trialysis Ca theter size (Kosovan): 13 Catheter length (cm): 20 Catheter flush: Heparin (1 000 units/mL) Catheter securement technique: Non-absorbable suture Contra st Contrast agent: None Radiation Dose None. Ultrasound only. Keanu tional Details Additional description of procedure: None Equipment details: None Specimens removed: None Estimated blood loss (mL): Less than 10 Stand ardized report: [id number]_NonTunneledCatheter_v3 Attestation Signer name: Ginna Banda MD I attest that I was present for the entire procedure. I reviewed the stored images and agree with the report as written. Signed by: Little Banda MD on 05/20/2019 6:06 PM Dictated By: KEVIN BANDA MD 07 Transcribed By: LOREE on 05/27/191207 COPY TO: GERSON ORTIZ GUIDANCE FOR VASCULAR ACCES 2019-05-20 18:04:00 [place] [address] Patient Name: JOSHUA WHEELER MR #: [id number] : 1960 Age/Sex: 58/M Req #: [id number] Adm Physician: BRETT CAZARES MD Ordered by: GERSON ORTIZ MD, MD Report #: [id number] Location: [facility] Room/Bed: [place] [address] Procedure: [id number] / GUIDANCE FOR VASCULAR ACCES Exam Date: 05/20/19 Exam Time: 1714 REPORT STATUS: S igned PROCEDURE: Non-tunneled central venous catheter placement Procedur al Personnel Attending physician(s): Kevin Banda MD Fellow physician(s): Non e Resident physician(s): None Advanced practice provider(s): None Pre-p rocedure diagnosis: Chronic kidney disease Post-procedure diagnosis: Same In dication: Performance of hemodialysis Additional clinical history: LUE fistula clotted, needs dialysis access Complications: No immediate complications. IMPRESSION: Insertion of left-sided non-tunneled triple-lumen temporary dialysis catheter. Plan: Chest radiograph prior to use. PROCEDURE SUMMARY: - Venous access with ultrasound guidance - Non-tunneled central venous catheter insertion with fluoroscopic guidance - Additional procedure(s): None PROC EDURE DETAILS: Pre-procedure Consent: Informed consent for the procedure including risks, benefits and alternatives was obtained and time-out was perfo rmed prior to the procedure. Preparation (MIPS): The site was prepared and sang ped using all elements of maximal sterile barrier technique including sterile gloves, sterile gown, cap, mask, large sterile sheet, sterile ultrasound probe cover, hand hygiene and cutaneous antisepsis with 2% chlorhexidine. Medical reason for site preparation exception (MIPS): Not applicable Anesthesia/s edation Level of anesthesia/sedation: No sedation Access Local anesthes ia was administered. The vessel was sonographically evaluated and determined t o be patent. Real time ultrasound was used to visualize needle entry into the vessel and a permanent image was stored. Vein accessed: Internal jugular vein Access technique: Micropuncture set with 21 gauge needle Catheter placeme nt The access site was dilated and the catheter was placed into the vein over a wire. A sterile dressing was applied. Catheter placed: Bard Trialysis Ca theter size (Kosovan): 13 Catheter length (cm): 20 Catheter flush: Heparin (1 000 units/mL) Catheter securement technique: Non-absorbable suture Contra st Contrast agent: None Radiation Dose None. Ultrasound only. Keanu tional Details Additional description of procedure: None Equipment details: None Specimens removed: None Estimated blood loss (mL): Less than 10 Stand ardized report: [email or web address]_NonTunneledCatheter_v3 Attestation Signer name: Ginna Banda MD I attest that I was present for the entire procedure. I reviewed the stored images and agree with the report as written. Signed by: Little Banda MD on 05/20/2019 6:06 PM Dictated By: KEVIN BANDA MD 1209 Transcribed By: LOREE on 05/27/19 1204 COPY TO: GERSON ORTIZ [facility] OR REM 2019-05-20 18:04:00 [place] [address] Patient Name: JOSHUA WHEELER MR #: [id number] : 1960 Age/Sex: 58/M Req #: [id number] [facility] Physician: BRETT CAZARES MD Ordered by: ANGEL NARAYAN, GERSON NARAYAN Report #: [id number] Location: [facility] Room/Bed: [place] [address] Procedure: [id number] IR/[facility] OR REM Exam Date: 05/20/19 Exam Time: 1645 REPORT STATUS: S igned PROCEDURE: Non-tunneled central venous catheter placement Procedur al Personnel Attending physician(s): Kevin Banda MD Fellow physician(s): Non e Resident physician(s): None Advanced practice provider(s): None Pre-p rocedure diagnosis: Chronic kidney disease Post-procedure diagnosis: Same In dication: Performance of hemodialysis Additional clinical history: LUE fistula clotted, needs dialysis access Complications: No immediate complications. IMPRESSION: Insertion of left-sided non-tunneled triple-lumen temporary dialysis catheter. Plan: Chest radiograph prior to use. PROCEDURE SUMMARY: - Venous access with ultrasound guidance - Non-tunneled central venous catheter insertion with fluoroscopic guidance - Additional procedure(s): None PROC EDURE DETAILS: Pre-procedure Consent: Informed consent for the procedure including risks, benefits and alternatives was obtained and time-out was perfo rmed prior to the procedure. Preparation (MIPS): The site was prepared and sang ped using all elements of maximal sterile barrier technique including sterile gloves, sterile gown, cap, mask, large sterile sheet, sterile ultrasound probe cover, hand hygiene and cutaneous antisepsis with 2% chlorhexidine. Medical reason for site preparation exception (MIPS): Not applicable Anesthesia/s edation Level of anesthesia/sedation: No sedation Access Local anesthes ia was administered. The vessel was sonographically evaluated and determined t o be patent. Real time ultrasound was used to visualize needle entry into the vessel and a permanent image was stored. Vein accessed: Internal jugular vein Access technique: Micropuncture set with 21 gauge needle Catheter placeme nt The access site was dilated and the catheter was placed into the vein over a wire. A sterile dressing was applied. Catheter placed: Bard Trialysis Ca theter size (Kosovan): 13 Catheter length (cm): 20 Catheter flush: Heparin (1 000 units/mL) Catheter securement technique: Non-absorbable suture Contra st Contrast agent: None Radiation Dose None. Ultrasound only. Keanu tional Details Additional description of procedure: None Equipment details: None Specimens removed: None Estimated blood loss (mL): Less than 10 Stand ardized report: [email or web address]_NonTunneledCatheter_v3 Attestation Signer name: Ginna Banda MD I attest that I was present for the entire procedure. I reviewed the stored images and agree with the report as written. Signed by: Little Banda MD on 05/20/2019 6:06 PM Dictated By: KEVIN BANDA MD 120 Transcribed By: LOREE on 05/27/19 1208 COPY TO: GERSON ORTIZ CHEST SINGLE (PORTABLE)2019-05-19 11:54:00 [place] [address] Patient Name: JOSHUA WHEELER MR #: [id number] : 1960 Age/Sex: 58/M Req #: [id number] Adm Physician: BRETT CAZARES MD Ordered by: MARILIN JUAN MD Report #: [id number] Location: [facility] Room/Bed: [place] [address] Procedure: [id number] DX/CHEST SINGLE (PORTABLE) Exam Date: 05/19/19 Exam Time: 1140 REPORT STATUS: Signed EXAMINATION: CHEST SINGLE (PORTABLE) INDICATION: Chest tube placement COMPARISON: Chest radiograph 05/19/2019 FINDINGS: LINES/TUBE S:Right apical and basilar chest tubes unchanged. Right IJ central venous cath eter unchanged. EKG leads overlie the chest. LUNGS/PLEURA:The left lung is well inflated. The right lung volumes are low. Unchanged right basilar opaciti es. Slightly decreased size of right basilar pneumothorax, now measuring up to 3.7 cm compared to 4.6 cm previously. MEDIASTINUM:The cardiomediastinal si lhouette appears unchanged in size and shape. BONES/SOFT TISSUES:No acute osseous injury. ABDOMEN:No free air under the diaphragm. IMPRESSIO N: Slight interval decrease in size of right basilar pneumothorax, now measur ing up to 3.7 cm. Otherwise, no significant interval change. Signed by: Kevin Banda MD on 05/19/2019 11:57 AM Dictated By: KEVIN BANDA MD Savannah ctronically Signed By: KEVIN BANDA MD on 05/19/19 115 Transcribed By: LOREE pérez 05/19/19 115 COPY TO: MARILIN JUAN MD CHEST SINGLE (PORTABLE)2019-05-19 07:55:00 [place] [address] Patient Name: JOSHUA WHEELER MR #: [id number] : 1960 Age/Sex: 58/M Req #: [id number] Adm Physician: BRETT CAZARES MD Ordered by: KEN SCOTT MD Report #: [id number] Location: [facility] Room/Bed: [place] [address] Procedure: [id number] DX /CHEST SINGLE (PORTABLE) Exam Date: 05/19/19 Exam Ti me: 0540 REPORT STATUS: Signed E XAMINATION: CHEST SINGLE (PORTABLE) INDICATION: Intubated. MARCO ANTONIO RISON: 05/17/2019 FINDINGS: AP view TUBES and LINES: Stable right IJ central line and right chest tubes. LUNGS: Lungs are well inflate d. Right middle lobe collapse. PLEURA: Small right-sided pneumothorax has increased, particularly in the lung base. Small bilateral pleural effusions, left greater than right. HEART AND MEDIASTINUM: The cardiomediastinal silh ouette is mildly enlarged. BONES AND SOFT TISSUES: No acute osseous lesion . Soft tissues are unremarkable. UPPER ABDOMEN: No free air under the di aphragm. IMPRESSION: Mild interval increase in volume of right pneum othorax. Signed by: Dr. Lui Vidal M.D. on 05/19/2019 7:57 AM Dictated By: ARLEEN VIDAL MD, MD 6 Transcribed By: LOREE on 05/19/19756 COPY TO: KEN SCOTT MD CHEST SINGLE (PORTABLE)2019-05-17 06:35:00 [place] [address] Patient Name: JOSHUA WHEELER MR #: [id number] : 1960 Age/Sex: 58/M Req #: [id number] Adm Physician: BRETT CAZARES MD Ordered by: MARILIN JUAN MD Report #: [id number] Location: ICU Room/Bed: [place] [address] Procedure: [id number] DX/CHEST SINGLE (PORTABLE) Exam Date: 05/17/19 Exam Time: 519 REPORT STATUS: Signed EXAMINATION: CHEST SINGLE (PORTABLE) INDICATION: two chest t ubes 20190517 COMPARISON: 05/16/2019 FINDINGS: AP vie w TUBES and LINES: Stable right IJ central line and right chest tubes. LUNGS: Lungs are well inflated. Right lung airspace opacities, slightly decreased from prior exam. PLEURA: Right apical pneumothorax. Small bilat eral pleural effusions, left greater than right. HEART AND MEDIASTINUM: The cardiomediastinal silhouette is unremarkable. BONES AND SOFT TISSUE S: No acute osseous lesion. Soft tissues are unremarkable. UPPER ABDOME N: No free air under the diaphragm. IMPRESSION: Unchanged right apic al pneumothorax. Right lung airspace opacities, mildly decreased from prior ex am. Small bilateral pleural effusions, left greater than right. Underlying p neumonia cannot be excluded. Signed by: Dr. Heather Wright MD on 05/17/19 6:38 AM Dictated By: HEATHER WRIGHT MD 7 Transcribed By: LOREE on 05/17/19637 COPY TO: MARILIN JUAN MD Differential Total Cells Avpxqav0772-41-90 09:14:00* Test Item Value Reference Range Interpretation Comments Differential Total Cells Counted (test code = Differen tial Total Cells Counted) 100 [facility] % (Manual)2019-05-16 09:14:00 * Test Item Value Reference Range Interpretation Comments Neutrophils % (Manual) (test code = 26220-3) 88 40-74 [facility] TexasLymphocytes % (Manual)2019-05-16 09:14:00 * Test Item Value Reference Range Interpretation Comments Lymphocytes % (Manual) (test code = 737-7) 4 19-48 [facility]ocytes % (Manual)2019-05-16 09:14:00* Test Item Value Reference Range Interpretation Comments Monocytes % (Manual) (test code = 744-3) 5 3.4-9.0 [facility]osinophils % (Manual)2019-05-16 09:14:00 * Test Item Value Reference Range Interpretation Comments Eosinophils % (Manual) (test code = 714-6) 3 0-7 [facility] TexasPlatelet Fohpisuc3506-12-42 09:14:00* Test Item Value Reference Range Interpretation Comments Platelet Estimate (test code = 98674-1) ADEQUATE [facility] TexasRed Cell Morphology Zbhlxga7901-92-99 09:14:00* Test Item Value Reference Range Interpretation Comments Red Cell Morphology Comment (test code = 6742-1) NORMAL [facility] SING[facility] (PORTABLE)2019-05-16 07:08:00 [place] [address] Patient Name: JOSHUA WHEELER MR #: [id number] : 1960 Age/Sex: 58/M Req #: [id number] Adm Physician: BRETT CAZARES MD Ordered by: MARILIN JUAN MD Report #: [id number] Location: ICU Room/Bed: [place] [address] Procedure: [id number] DX/CHEST SINGLE (PORTABLE) Exam Date: 05/16/19 Exam Time: 0530 REPORT STATUS: Signed Examination: Single AP view of the chest. COMPARISON: AP chest 05/15/2019 INDICATION: Anemia, chest tube IMPRESSION: 1. Lines and Tubes: Stable right chest tube with distal tip projecting over the right medial apex. Stable right IJ central venous line with distal tip projecting in the proximal SVC. 2. Interval worsening of right pneumothorax, with maximal air gap of 19 mm (previously 9 mm). Unable to assess left pleural effusion as the left costophrenic angle is not included in the image. 3. Stable cardiomediastinal silhouette. Pulmonary vasculature is normal. 4. No acute bony abnormaliti es. Signed by: Dr. Tod Butterfield M.D. on 05/16/2019 7:11 AM Dict ated By: TOD BUTTERFIELD MD 0 COPY TO: STEPHANIE JUAN MD Body Fluid Other [id number] 22:05:00* Test Item Value Reference Range Interpretation Comments Body Fluid Other Cells (test code = 165297224) 1 [facility] TexasBody Fluid Ixfbuca6436-99-36 20:42:00* Test Item Value Reference Range Interpretation Comments Body Fluid Glucose (test code = 2344-0) 65 [facility]Body Fl[facility] Total Xbazfmn7002-54-96 20:42:00* Test Item Value Reference Range Interpretation Comments Body Fluid Total Protein (test code = 2881-1) 3.8 [facility] Texas[facility] SINGLE (PORTABLE)2019-05-15 19:45:00 [facility] [address] [place] [address] Patient Name: JOSHUA WHEELER MR #: [id number] : 1960 Age/Sex: 58/M Req #: [id number] Adm Physician: BRETT CAZARES MD Ordered by: TAY TATE MD Report #: [id number] Location: ICU Room/Bed: ICU [facility] Procedure: [id number] D X/CHEST SINGLE (PORTABLE) Exam Date: 05/15/19 Exam T dorian: 1924 REPORT STATUS: Signed EXAMINATION: CHEST SINGLE (PORTABLE) INDICATION: Shortness of breath CHEST TUBE AND CENTRAL LINE PLACEMENT 20190515 Y CO MPARISON: 05/15/2019 at 5:26 AM FINDINGS: TUBES and LINES: Right ch est tube with distal tip over the right upper central thorax. Right-sided inte rnal jugular central venous catheter with distal tip over the right atrial/william a cava junction. LUNGS: Likely scarring/atelectasis at the lung bases. PLEURA: Resolution of the previously seen right pleural effusion. There is a small right pneumothorax. Small left pleural effusion. HEART A ND MEDIASTINUM: The cardiomediastinal silhouette is unremarkable. BONE S AND SOFT TISSUES: No acute osseous lesion. Soft tissues are unremarkable. UPPER ABDOMEN: No free air under the diaphragm. IMPRESSION: Res olution of the previously seen right pleural effusion. There is a small right pneumothorax. Small left pleural effusion. Right chest tube with distal tip over the right upper central thorax. Right-sided internal jugular central william ous catheter with distal tip over the right atrial/vena cava junction. Signed by: Dr. Kitty Silva M.D. on 05/15/2019 7:48 PM Dictated By: KITTY SILVA MD, MD 47 Transcribed By: LOREE on 05/15/191947 COPY TO: TAY TATE MD TB Test (T-Spot)2019-05-15 06:51:00* Test Item Value Reference Range Interpretation Comments TB Test (T-Spot) (test code = TB Test (T-Spot)) 0 A negative test result does not exclude the possibility of exposure to or infect ion with Mycobacterium tuberculosis (M. tuberculosis). Patients with recent expo sure to TB infected individuals exhibiting a negative T-Spot.TB result should be considered for retesting within 6 weeks or if other relevent clinical symptoms indicate. Results from T-Spot.TB testing must be used in conjunction with each i ndividual's epiemiological history, current medical status, and results of other diagnostic evaluations. The T-Spot.TB test is qualitative and results are repor roro as positive, borderline or negative, given that the test controls perform ar e expected. In line with the Centers for Disease Control Control and Prevention' s 2010 recommendation to report quantitative measurements alongside the qualitat aye result, the laboratory provides spot counts for the informational purposes only. The T-Spot.TB test should not be interpreted as a quantitative test.Panel A Spot Count (Corrected for Negative Control) 1 Panel B Spot Count(Correc roro for Negative Control) 4Negative Control P assedPositive Control PassedTesting performed by:[id number] [place], [place] [id number] [phone]: Alex Billy [facility] SINGLE (PORTABLE)2019-05-15 05:48:00 [place] [address] Patient Name: JOSHUA WHEELER MR #: [id number] : 1960 Age/Sex: 58/M Req #: [id number] Adm Physician: BRETT CAZARES MD Ordered by: MARILIN JUAN MD Report #: [id number] Location: MED/SURG2 Room/Bed: [facility] Procedure: [id number] DX/CHEST SINGLE (PORTABLE) Exam Date: Exam Time: REPORT STATUS: Signed Examination: Single AP view of the chest. COMPARISON: CT chest 05/12/2019 INDICATI ON: Pleural effusion IMPRESSION: 1. Lines and Tubes: None 2. Lungs are well-inflated. No significant interval change in right-sided pleural effusion which is partly loculated, as well as right lower lobe consolidation likely representing round atelectasis or pneumonia. Left lung is grossly monika r. 3. Cardiomediastinal silhouette is normal. Pulmonary vasculature is norm al. 4. No acute bony abnormalities. Signed by: Faheem Blanco on 05/15/2019 5:50 AM Dictated By: TOD BUTTERFIELD MD Electronically Si gned By: TOD BUTTERFIELD MD on 05/15/19549 Transcribed By: LOREE on 05/15/19549 COPY TO: MARILIN JUAN MD Ahcp-7-Stwcvcguefpkf6602-01-14 19:11:00* Test Item Value Reference Range Interpretation Comments Cain-3-Oswbswzxuxmjm (test code = 1952-1) 26.8 0.6-2.4 Siemens Immulite 2000 Immunochemiluminometric assay (ICMA)Values obtained with d ifferent assay methods or kits cannotbe used interchangeably. Results cannot be interpreted asabsolute evidence of the presence or absence of malignantdisease.* *Results verified by repeat testingPerformed at: [address] [id number] Director: Johanna Hines MD, Phone: [phone] [facility]PTOBILIARY2020-01-14 14:01:00 [place] [address] Patient Name: JOSHUA WHEELER MR #: [id number] : 1960 Age/Sex: 58/M Req #: [id number] Adm Physician: BRETT CAZARES MD Ordered by: REGGIE VAIL MD Report #: [id number] Location: MED/SURG2 Room/Bed: 208 Procedure: [id number] NM/HEPTOBILIARY Exam Date: 05/12/19 Exam Time: 1400 REPORT STATUS: Signed EXAM: HIDA Scan with Morphine Challenge INDICATION: Abdominal pain Report: Foll owing the administration of 5.4 mCi of Tc-99m mebrofenin, dynamic images of th e abdomen in the anterior projection were obtained through 60 minutes. Morphi ne sulfate 2 mg was administered intravenously and additional images were obta ined through 30 minutes. Perfusion of the liver is normal. Extraction of tracer from the blood pool by the liver parenchyma is normal. Tracer appears promptly with in the biliary tract. Tracer is seen in the small bowel by 18 minutes post injection of the tracer. The gallbladder does not fill during th e initial 60 minutes of imaging but does fill promptly following administratio n of morphine. Impression: 1. Filling of the gallbladder excludes a cute cystic duct obstruction/acute cholecystitis. 2. Delayed filling of the gallbladder beyond 60 minutes post injection of the tracer may indicate chron ic cholecystitis. Signed by: Dr. Ivy Arenas M.D. on 05/13/2019 2:03 PM Dictated By: IVY ARENAS MD 140 COPY TO: BRENTON VAIL MD CT CHEST [id number] 09:09:00 [place] [address] Patient Name: JOSHUA WHEELER MR #: [id number] : 1960 Age/Sex: 58/M Req #: [id number] Adm Physician: BRETT CAZARES MD Ordered by: EDIN FRAIRE MD Report #: [id number] Location: MED/SURG2 Room/Bed: [facility] Procedure: [id number]/CT CHEST WO Exam Date: 05/12/19 Exam Time: 2042 REPORT STATUS: Signed EXAM: CT Chest WITHOUT intravenous contrast 05/12/2019 7:42 PM INDICATION: Common gated pleural effusion COMPARISON: Chest radiograph 05/12/2019, thoracentesis 020 TECHNIQUE: Chest was scanned utilizing a multidetector helical scanner f rom the lung apex through the level of the adrenal glands without administrati on of IV contrast. Coronal and sagittal reformations were obtained. Routine pr otocol was performed. IV CONTRAST: None RADIATION DOSE: Total DLP: 446. 2 mGy*cm. Dose modulation, iterative reconstruction, and/or weight based adjus tment of the mA/kV was utilized to reduce the radiation dose to as low as reas onably achievable. COMPLICATIONS: None FINDINGS: LINES/ TUBES: None . LUNGS AND AIRWAYS: The central airways are patent. Mild biapical pleural parenchymal thickening/scarring. Right middle lobe, right lower lobe, and p osterior left lower lobe subsegmental atelectasis. Ovoid consolidation at the posterior right lower lobe adjacent to the thickened right pleura more likely represents round atelectasis than focal pneumonia. No suspicious pulmonary nod ule. PLEURA: Partially loculated moderate right pleural effusion with assoc iated right pleural thickening. Scattered small foci of air within the pleural cavity may be postprocedural related to recent thoracentesis. However, some of this air is not antidependent, thus suggesting the complex and loculated silvia ure of the pleural effusion. Trace simple appearing left pleural effusion with out significant associated pleural thickening. HEART AND MEDIASTINUM: No supraclavicular, mediastinal, or hilar lymphadenopathy. No axillary, subpector al, or internal mammary lymphadenopathy. Mild multichamber cardiomegaly. No pe ricardial effusion. Scattered atherosclerotic calcifications involve the coron sean arteries, aorta, and proximal great vessels. There is dilation of the ent irety of the esophagus which is filled with ingested material and contains an air-fluid level at the level of the aortic arch. UPPER ABDOMEN: Limited n on-contrast views of the upper abdomen show no abnormality within the partiall y visualized liver, spleen, pancreas, or left adrenal and upper kidney. BONES: No acute osseous injury. No suspicious lytic or blastic lesions. SOF T TISSUES: Unremarkable. IMPRESSION: Partially loculated moderate right pleural effusion with associated right pleural thickening. Small scattered foc i of air may be postprocedural. Trace simple appearing left pleural effusion w ithout significant associated pleural thickening. Consolidation at the po sterior right lower lobe adjacent to the abnormal pleura more likely represent s round atelectasis than focal pneumonia. Dilation of the entire esophagus which is filled with ingested material distally and contains an air-fluid leve l more proximally at the level of the aortic arch. This may predispose the pat ient for aspiration. Signed by: Kevin Banda MD on 05/13/2019 9:23 AM Dictated By: KEVIN BANDA MD 2 COPY TO: SANTIAGO FRAIRE MD CHEST SINGLE (PORTABLE)2019-05-12 18:32:00 [place] [address] Patient Name: JOSHUA WHEELER MR #: [id number] : 1960 Age/Sex: 58/M Req #: [id number] Adm Physician: BRETT CAZARES MD Ordered by: ANGEL NARAYAN, GERSON NARAYAN Report #: [id number] Location: MED/SURG2 Room/Bed: [facility] Procedure: [id number] DX/CHEST SINGLE (PORTABLE) Exam Date: Exam Time: REPORT STATUS: Signed EXAMINATION: CHEST SINGLE (PORTABLE) INDICATION: Anemia. Postthoracentesis s/p thoracentesis COMPARISON: CT scan May 11, 2019 FIN DINGS: TUBES and LINES: None. LUNGS: Moderate size right pleural effusi on with associated atelectasis. Left lung clear. PLEURA: No pneum othorax. HEART AND MEDIASTINUM: The cardiomediastinal silhouette is unrema rkable. BONES AND SOFT TISSUES: No acute osseous lesion. Soft tissues are unremarkable. UPPER ABDOMEN: No free air under the diaphragm. IMPRESSION: Moderate size right pleural effusion with associated atelectas is. Left lung clear Signed by: Dr. Kitty Silva M.D. on 05/12/2019 6:3 3 PM Dictated By: KITTY SILVA MD, MD 32 Transcribed By: LOREE on 05/12/191832 COPY TO: GERSON ORTIZ THORACENTESIS/US [id number] 17:14:00 [place] [address] Patient Name: JOSHUA WHEELER MR #: [id number] : 1960 Age/Sex: 58/M Req #: [id number] Adm Physician: BRETT ACZARES MD Ordered by: ANGEL NARAYAN, GERSON NARAYAN Report #: [id number] Location: [facility]/SURG Room/Bed: [facility] Procedure: [id number] US/THORACENTESIS/US GUIDED Exam Date: 05/12/19 Exam Time: 1640 REPORT STATUS: Signed PROCEDURE: Ultrasound-guided thoracentesis Procedural Personnel Attending physician(s): [place] Banda MD Fellow physician(s): None Resident physician (s): None Advanced practice provider(s): None Pre-procedure diagnosis: Pl eural effusion Post-procedure diagnosis: Same Indication: Pleural effusion w ith pain or pressure symptoms Additional clinical history: None Complicat ions: No immediate complications. IMPRESSION: Ultrasound-guided thorac entesis with drainage of 700 mL of dark warren fluid. Plan: Resume care b y clinical team. __ PROCEDURE SUMMARY: - Limited thoracic ultrasound - Ultrasound-guided thoracentesis - Additional procedure(s): None PROCEDURE DETAILS: Pr e-procedure Consent: Informed consent for the procedure including risks, benef its and alternatives was obtained and time-out was performed prior to the proc edure. Preparation: The site was prepared and draped using maximal sterile bar rier technique including cutaneous antisepsis. Anesthesia/sedation Leve l of anesthesia/sedation: No sedation Limited thoracic ultrasound Limited thoracic ultrasound was performed using a curved transducer. A safe window for thoracentesis was identified. Left hemithorax findings: Trace pleural effus ion, insufficient for safe thoracentesis Right hemithorax findings: Moderate pleural effusion with multiple loculations and pleural thickening. Thora centesis Local anesthesia was administered. The pleural space was accessed und er real-time ultrasound guidance and fluid return confirmed position. The flu id was drained. The catheter was removed, and a sterile bandage was applied. Catheter placed: 5F Kwaku Post-drainage hemithorax findings: No visible pleural effusion, remnant loculations and pleural thickening. Additional Details Additional description of procedure: None Equipment details: None Specimens removed: Pleural fluid Estimated blood loss (mL): Less than 10 Standardized report: SIR_Thoracentesis_v3 Attestation Signer name: [place] Banda MD I attest that I was present for the entire procedure. I reviewed the stored images and agree with the report as written. Signed by: Kevin Banda MD on 5:15 PM Dictated By: KEVIN BANDA MD 14 Transcribed By: LOREE on 05/12/191714 CLINICAL PATHOLOGIST Y TO: GERSON ORTIZ [id number] 17:14:00 [place] [address] Patient Name: JOSHUA WHEELER MR #: [id number] : 1960 Age/Sex: 58/M Req #: [id number] [facility] Physician: BRETT CAZARES MD Ordered by: ANGEL NARAYAN, GERSON NARAYAN Report #: [id number] Location: [facility] Room/Bed: [facility] Procedure: [id number] DX/IR CONSULT Exam Date: Exam Time: REPORT STATUS: Signed PROCEDURE: Ultrasound-g uided thoracentesis Procedural Personnel Attending physician(s): [place] Banda MD Fellow physician(s): None Resident physician(s): None Advanced prac hazel provider(s): None Pre-procedure diagnosis: Pleural effusion Post-pro cedure diagnosis: Same Indication: Pleural effusion with pain or pressure symp toms Additional clinical history: None Complications: No immediate compli cations. IMPRESSION: Ultrasound-guided thoracentesis with drainage of 700 mL of dark warren fluid. Plan: Resume care by clinical team. PROCEDURE SUMMARY : - Limited thoracic ultrasound - Ultrasound-guided thoracentesis - Additi onal procedure(s): None PROCEDURE DETAILS: Pre-procedure Consent: In formed consent for the procedure including risks, benefits and alternatives wa s obtained and time-out was performed prior to the procedure. Preparation: The site was prepared and draped using maximal sterile barrier technique including cutaneous antisepsis. Anesthesia/sedation Level of anesthesia/sedation: No sedation Limited thoracic ultrasound Limited thoracic ultrasound was performed using a curved transducer. A safe window for thoracentesis was ident ified. Left hemithorax findings: Trace pleural effusion, insufficient for saf e thoracentesis Right hemithorax findings: Moderate pleural effusion with mu ltiple loculations and pleural thickening. Thoracentesis Local anesthes ia was administered. The pleural space was accessed under real-time ultrasound guidance and fluid return confirmed position. The fluid was drained. The cat heter was removed, and a sterile bandage was applied. Catheter placed: 5F Yueh Post-drainage hemithorax findings: No visible pleural effusion, remnant loc ulations and pleural thickening. Additional Details Additional descriptio n of procedure: None Equipment details: None Specimens removed: Pleural flui d Estimated blood loss (mL): Less than 10 Standardized report: SIR_Thoracent esis_v3 Attestation Signer name: [place] Banda MD I attest that I was pre sent for the entire procedure. I reviewed the stored images and agree with the report as written. Signed by: Kevin Banda MD on 05/12/2019 5:15 PM D ictated By: KEVIN BANDA MD 1 715 Transcribed By: LOREE on 05/12/19 1714 COPY TO: GERSON ORTIZ CT ABDOMEN/PELVIS [id number] 09:25:00 [place] [address] Patient Name: JOSHUA WHEELER MR #: [id number] : 1960 Age/Sex: 58/M Req #: [id number] Adm Physician: BRETT CAZARES MD Ordered by: REGGIE VAIL MD Report #: [id number] Location: MED/SURG2 Room/Bed: [facility] Procedure: [id number] CT/CT ABDOMEN/PELVIS WO Exam Date: 05/11/19 Exam Ti me: 0855 REPORT STATUS: Signed C T Abdomen And Pelvis Without IV Contrast INDICATION: Weight loss TECHNIQU E: 5 mm collimation axial images obtained from the diaphragm to the level of t he pubic symphysis without nonionic intravenous contrast. Oral contrast was administered. RADIATION DOSE: Total DLP: 201.1 mGy*cm Melina mated effective dose: (DLP x 0.015 x size factor) mSv CTDIvol has been re viewed. It is below the limits set by the Radiation Protocol Committee (RPC). Dose reduction techniques used: Automated exposure control, adjustment of t he mAs and/or kVp according to patient size, standardized low-dose protocol, and/or iterative reconstruction technique. COMPARISON: CT chest 06/18/2018. ABDOMEN FINDINGS: Lung Bases: Loculated right pleural effusion is re demonstrated measuring 5 cm in transverse dimension and extending anteriorly. Rounded atelectasis of the lower lobe and possibly middle lobe are present. Po sterior layering left pleural effusion measures 3.4 cm. The heart is enlarged. The esophagus is collapsed.. Liver: Normal in attenuation without mass. Intrahepatic veins are prominent suggestive of right heart failure. Gallb ladder: Present and mildly contracted. No gallstones. No ductal dilatation. Pancreas: Normal attenuation without mass. Spleen: Normal in attenuation and size without mass . Adrenal Glands: No evidence for mass. Kidn eys: Right Kidney: Diminutive. No cortical mass or hydronephrosis. Le ft Kidney: Diminutive. No cortical mass or hydronephrosis. Lymph Nodes: No enlarged abdominal or periaortic lymph nodes. Aorta: Normal in diameter. D iffuse arterial calcifications. PELVIS FINDINGS: Bowel: Stomach: C ollapsed but otherwise normal. Small Bowel: Enteric contrast throughout. No mu ral thickening or dilatation. Large Bowel: Unopacified. Mild to moderate stool burden. No mural thickening or pericolonic inflammation. A few scattered dive rticula are present. Appendix: Normal. Bladder: Underdistended. Lymp h Nodes: No enlarged mesenteric, pelvic, or internal lymph nodes. Peritoneu m/retroperitoneum: Mild peritoneal edema. No loculated fluid collection. Bones: No focal osseous lesions. Soft tissues: Mild subcutaneous edema. IMPRESSION: 1. Loculated right pleural effusion with round atelectasis of the adjacent lung. Posterior layering left pleural effusion. 2. Findings of end-stage renal disease. Cardiomegaly and right heart failure. 3. No evidence for bowel obstruction or inflammation. 4. No mass or lymphadenopat hy in the abdomen or pelvis to explain weight loss. 5. Mild peritoneal laine a and subcutaneous edema. Signed by: Dr. Wes Lopez MD on 05/11/2019 9:30 AM Dictated By: WES LOPEZ MD 9 Transcribed By: LOREE on 05/11/19929 COPY TO: REGGIE VAIL MD [id number] 11:02:00* Test Item Value Reference Range Interpretation Comments Folate (test code = 2284-8) 16.4 >3.0 A serum folate concentration of less than 3.1 ng/mL isconsidered to represent cl inical deficiency.Performed at: - [facility] [id number] Director: Alec Javier MD, Phone: [phone] [facility] TexasIR [id number] 15:52:00 [place] [address] Patient Name: JOSHUA WHEELER MR #: [id number] : 1960 Age/Sex: 58/M Req #: [id number] Adm Physician: BRETT CAZARES MD Ordered by: NIURKA FRIEND MD Report #: [id number] Location: MED/SURG2 Room/Bed: [facility] Procedure: [id number] DX/IR CONSULT Exam Date: Exam Time: REPORT STATUS: Signed PROCEDURE: Ultrasound-gu ided thoracentesis Procedural Personnel Attending physician(s): Kevin alegre MD Fellow physician(s): None Resident physician(s): None Advanced pract ice provider(s): None Pre-procedure diagnosis: Pleural effusion Post-proc edure diagnosis: Same Indication: Pleural effusion with pain or pressure sympt oms Additional clinical history: None Complications: No immediate complic ations. IMPRESSION: Ultrasound-guided thoracentesis with drainage of 1 200 mL of dark warren fluid. Plan: Resume care by clinical team. PROCEDURE SUMMARY : - Limited thoracic ultrasound - Ultrasound-guided thoracentesis - Additi onal procedure(s): None PROCEDURE DETAILS: Pre-procedure Consent: In formed consent for the procedure including risks, benefits and alternatives wa s obtained and time-out was performed prior to the procedure. Preparation: The site was prepared and draped using maximal sterile barrier technique including cutaneous antisepsis. Anesthesia/sedation Level of anesthesia/sedation: No sedation Limited thoracic ultrasound Limited thoracic ultrasound was performed using a curved transducer. A safe window for thoracentesis was ident ified. Left hemithorax findings: Trace pleural effusion, insufficient for saf e thoracentesis Right hemithorax findings: Moderate pleural effusion Th oracentesis Local anesthesia was administered. The pleural space was accessed under real-time ultrasound guidance and fluid return confirmed position. The fluid was drained. The catheter was removed, and a sterile bandage was applied . Catheter placed: 5F Diamondeh Post-drainage hemithorax findings: Small pleural effusion Additional Details Additional description of procedure: None E quipment details: None Specimens removed: Pleural fluid Estimated blood loss (mL): Less than 10 Standardized report: SIR_Thoracentesis_v3 Attestation Signer name: Kevin Banda MD I attest that I was present for the entire proc edure. I reviewed the stored images and agree with the report as written. Signed by: Kevin Banda MD on 05/09/2019 3:54 PM Dictated By: KEVIN BANDA MD 53 Transcribed By: LOREE on 05/09/191553 COPY TO: NIURKA FRIEND MD THORACENTESIS/US [id number] 15:52:00 [place] [address] Patient Name: JOSHUA WHEELER MR #: [id number] : 1960 Age/Sex: 58/M Req #: [id number] Adm Physician: BRETT CAZARES MD Ordered by: NIURKA FRIEND MD Report #: [id number] Location: [facility] Room/Bed: [facility] Procedure: [id number] US/THORACENTESIS/US GUIDED Exam Date: 05/09/19 Exam Time: 1259 REPORT STATUS: Signed PROCEDURE: Ultrasound-guided thoracentesis Procedural Personnel Attending physician(s): Kevin Banda MD Fellow physician(s): None Resident physician( s): None Advanced practice provider(s): None Pre-procedure diagnosis: Ple ural effusion Post-procedure diagnosis: Same Indication: Pleural effusion wi th pain or pressure symptoms Additional clinical history: None Complicati ons: No immediate complications. IMPRESSION: Ultrasound-guided thorace ntesis with drainage of 1200 mL of dark warren fluid. Plan: Resume care b y clinical team. __ PROCEDURE SUMMARY: - Limited thoracic ultrasound - Ultrasound-guided thoracentesis - Additional procedure(s): None PROCEDURE DETAILS: Pr e-procedure Consent: Informed consent for the procedure including risks, benef its and alternatives was obtained and time-out was performed prior to the proc edure. Preparation: The site was prepared and draped using maximal sterile bar rier technique including cutaneous antisepsis. Anesthesia/sedation Leve l of anesthesia/sedation: No sedation Limited thoracic ultrasound Limited thoracic ultrasound was performed using a curved transducer. A safe window for thoracentesis was identified. Left hemithorax findings: Trace pleural effus ion, insufficient for safe thoracentesis Right hemithorax findings: Moderate pleural effusion Thoracentesis Local anesthesia was administered. The pl eural space was accessed under real-time ultrasound guidance and fluid return confirmed position. The fluid was drained. The catheter was removed, and a st erile bandage was applied. Catheter placed: 5F Diamondeh Post-drainage hemithorax findings: Small pleural effusion Additional Details Additional descripti on of procedure: None Equipment details: None Specimens removed: Pleural flu id Estimated blood loss (mL): Less than 10 Standardized report: SIR_Thoracen tesis_v3 Attestation Signer name: Kevin Banda MD I attest that I was pr esent for the entire procedure. I reviewed the stored images and agree with th e report as written. Signed by: Kevin Banda MD on 05/09/2019 3:54 PM Dictated By: KEVIN BANDA MD 6822 COPY TO: RUPALI FRIEND MD Body Fluid Lactate [id number] 15:04:00* Test Item Value Reference Range Interpretation Comments Body Fluid Lactate Dehydrogenase (test code = 085610024) 234 No reference range has been established for this specimen type.[facility] FallsCHES SINGLE (NOT PORTABLE)2019-05-09 13:27:00 [place] [address] Patient Name: JOSHUA WHEELER MR #: [id number] : 1960 Age/Sex: 58/M Req #: [id number] Adm Physician: BRETT CAZARES MD Ordered by: BRETT CAZARES MD Report #: [id number] Location: MED/SURG2 Room/Bed: [facility] Procedure: [id number] DX/CHEST SINGLE (NOT PORTABLE) Exam Date: Exam Time : REPORT STATUS: Signed EXAMINA TION: CHEST SINGLE (NOT PORTABLE) INDICATION: Postoperative MARCO ANTONIO RISON: Chest radiograph 05/07/2019 FINDINGS: LINES/TUBES:EKG leads overlie the chest. LUNGS:The left lung is well inflated. The right lung is moderately inflated. Patchy opacities at the right lung base silhouetting the right hemidiaphragm. PLEURA:Moderate right pleural effusion. No pneumothora x status post thoracentesis. MEDIASTINUM:The cardiomediastinal silhouette appears unchanged in size and shape. BONES/SOFT TISSUES:No acute osseous injury. ABDOMEN:No free air under the diaphragm. IMPRESSION: No pneumothorax status post right or centesis. Residual moderate right pleural effusion. Patchy opacity at the right lung base, likely associated subsegmen freya atelectasis. Signed by: Kevin Banda MD on 05/09/2019 1:29 PM Dict ated By: KEVIN BANDA MD 1329 Transcribed By: LOREE on 05/09/19 1329 COPY TO: BRETT CAZARES MD Vitamin B12 [id number] 08:15:00* Test Item Value Reference Range Interpretation Comments Vitamin B12 Level (test code = 33494-9) 326 213-816 [facility] TexasFerritin2020-01-09 07:31:00* Test Item Value Reference Range Interpretation Comments Ferritin (test code = 2276-4) > 2000.00 21.81-274.66 [facility] TexasTriglycerides Fkdpm3647-01-64 06:11:00* Test Item Value Reference Range Interpretation Comments Triglycerides Level (test code = 2571-8) 95 0-149 [facility] TexasCholesterol Dtaud3607-98-29 06:11:00* Test Item Value Reference Range Interpretation Comments Cholesterol Level (test code = 2093-3) 127 0-199 Less than 200 mg/dL Low Vuhl169 - 239 mg/dL Borderline Mhhs913 m g/dl and greater High Risk [facility] TexasLDL Gjfihwkzyoy4392-54-97 06:11:00* Test Item Value Reference Range Interpretation Comments LDL Cholesterol (test code = 2089-1) 82 60-130 [facility] TexasHDL Bkmbepmsldd8838-51-87 06:11:00* Test Item Value Reference Range Interpretation Comments HDL Cholesterol (test code = 2085-9) 26 40-60 [facility] TexasCholesterol/HDL Oucib3505-60-73 06:11:00 * Test Item Value Reference Range Interpretation Comments Cholesterol/HDL Ratio (test code = 9830-1) 4.9 3.9-4.7 [facility] 2 [id number] 17:40:00 [facility] [address] [place] [address] Patient Name: JOSHUA WHEELER MR #: [id number] : 1960 Age/Sex: 58/M Req #: [id number] Adm Physician: Ordered by: NIURKA FRIEND MD Report #: [id number] Location: ER Room/Bed: Procedure: [id number] D X/CHEST 2 VIEWS Exam Date: 05/07/19 Exam Time: 1726 REPORT STATUS: Signed Chest, PA and lateral. History: Cough, unresponsive to outpatient antibiotics. C omparison: 05/24/2018, 09/27/2018. Discussion: The heart is unchanged in si ze and configuration. There is a moderate to large right pleural effusion with associated compressive atelectasis of the right lower lung. There is no left pleural effusion. There is no pneumothorax. No acute osseous abnormalities. IMPRESSION: Moderate to large right pleural effusion which has slightly in creased in size from prior examination. Signed by: Ricardo Addison MD o n 05/07/2019 5:42 PM Dictated By: RICARDO ADDISON MD Electronically Naz d By: RICARDO ADDISON MD on 05/07/191741 Transcribed By: LOREE on 05/07/191741 COPY TO: NIURKA FRIEND MD CHEST SINGLE (NOT PORTABLE) 2019-03-24 18:43:00 [place] [address] Patient Name: JOSHUA WHEELER MR #: [id number] : 1960 Age/Sex: 58/M Req #: [id number] Adm Physician: Ordered by: HUNTER HEARD MD Report #: [id number] Location: ER Room/Bed: Procedure: [id number] DX/CHEST SINGLE (NOT PORTABLE) Exam Date: 03/24/19 Exam Time: 1756 REPORT STATUS: Sign ed EXAMINATION: CHEST SINGLE (NOT PORTABLE) INDICATION: E RMD ORDER [id number] Y COMPARISON: Chest radiograph 2018 FINDINGS: AP view TUBES and LINES: Interval removal of the right IJ hemodialysis catheter. LUNGS: Lungs are well inflated. Subse gmental atelectasis in the right lower lobe, increased. Mild bilateral inter stitial edema, decreased. PLEURA: Moderate right-sided pleural effusion, n ew. No left pleural effusion. No pneumothorax. HEART AND MEDIASTINUM: Pr ominent cardiac silhouette but decreased since prior exam. BONES AND SO FT TISSUES: No acute osseous lesion. Soft tissues are unremarkable. UPP ER ABDOMEN: No free air under the diaphragm. IMPRESSION: New moderat e right pleural effusion with increased subsegmental atelectasis in the right lower lobe. Cannot exclude underlying pneumonia. Decreased size of the card iac silhouette with a near resolution of the bilateral pulmonary edema. Signed by: Dr. Erika Dao M.D. on 03/24/2019 6:45 PM Dict ated By: ERIKA DAO MD 44 Transcribed By: LOREE on 03/24/191844 COPY TO: HUNTER HEARD MD U/S, ABDOMINAL, [id number] 13:29:00PCP- Dr. Kiran Garduno [address] [place] [phone] for Exam:->Kidney transplant evaluation; comment on number of renal cysts on each side to meet criteria for Acquired Cystic Kidney DiseaseFINAL REPORT TECHNIQUE: Grayscale ultrasound of the abdomen. INDICATION: 58-year-old man for renal transplant evaluation. COMPARISON: None. FINDINGS: MIDLINE VASCULATURE: The visualized inferior vena cava is patent. Portal vein is patent. The maximum visualized aortic diameter is 1.8 cm. LIVER: The liver is normal in size and echogenicity with smooth contour. No focal lesio ns. BILIARY:Gallbladder: Shadowing stone in the gallbladder. No gallbladder wall thickening, pericholecystic fluid, or distention. Negative sonographic Ventura s ign.Common bile duct measures 0.3 cm, within normal limits. No intrahepatic bili sean ductal dilatation. PANCREAS: Visualized portions of the pancreas are unremar kable. SPLEEN: No splenomegaly. PERITONEUM: No free fluid. KIDNEYS: Both kidneys are mildly echogenic. The right kidney measures 7.9 x 3.8 x 4.3 cm with cortical thickness of 1.1 cm. The left kidney measures 8.7 x 5.1 x 3.9 cm with cortical thickness of 1.4 cm. No hydronephrosis. No sonographically evident renal mass or cyst. OTHER FINDINGS: Right pleural effusion. IMPRESSION:Mildly echogenic kid neys, suggestive of medical renal disease. No renal mass or cyst. Cholelithiasis . Signed: Fausto Eddy MDReport Verified Date/Time: 03/06/2019 13:29:38 Read ing Location: [address] Radiology Reading Room [id number] 09:13:00* Test Item Value Reference Range Interpretation Comments PROSTATE SPECIFIC ANTIGEN (BEAKER) (test code = 844) 0.6 ng/mL 0 .0-4.0 LIPID [id number] 08:19:00* Test Item Value Reference Range Interpretation Comments TRIGLYCERIDES (BEAKER) (test code = 540) 85 mg/dL CHOLESTEROL (BEAKER) (test code = 631) 120 mg/dL HDL CHOLESTEROL (BEAKER) (test code = 976) 39 mg/dL LDL CHOLESTEROL CALCULATED (BEAKER) (test code = 633) 64 mg/dL Triglyceride Reference Range: Low Risk <150 Borderline 150-199 High Risk 200-499 Very High Risk >=500Cholesterol Reference Range: Low Risk <200 Borderline 200-239 High Risk >240HDL Cholesterol Reference Range: Low Risk >=60 High Risk <40LDL Cholesterol Reference Range: Optimal <100 Near Optimal 100-129 Borderline 130-159 High 160-189 Very High >=190 PLEURAL [id number] 15:37:00 RUN DATE: 01/23/19 [employer] PAGE 1 RUN TIME: 1537 Specimen Inqui ry RUN USER: INTERFACE PATIENT: JOSHUA CACERES ACCT #: [id number] LOC: FROILAN #: [id number] AGE/SX: 58/M ROOM: RE01/22/19REG DR: Vic Rey MD : 58 BED: DIS: STATUS: [facility] TLOC: SPEC #: [id number] RECD: 01/22/19 STATUS: SHIRA REQ #: [id number] MARY: 01/22/19 DR: Cheko Joseph MD ENTERED: 01/22/19 SP TYPE: PLEURAL FL OTHR DR: Escobar Menon MD ORDERED: GROSS COPIES TO: Kimani Menon MD [address] [facility] [address] [place] [address] Cheko Joseph MD [address] [place] [address] PROCEDURES: GROSS (01/23/19-144 7) TISSUES: PLEURAL FLUID, NOS - 32 ML YELLOW CLINICAL HISTORY COLLECTION DATE: 01/22/2019 THROCENTESIS COMMENT Two con centrated smears, a cytospin and cell block are prepared from the fluid. FINAL DIAGNOSIS Pleural fluid, thoracentesis: NEGATIVE FOR MALIGNAN CY MACROPHAGES, MIXED INFLAMMATORY CELLS AND FEW MESOTHELIAL CE LLS IN BACKGROUND OF BLOOD RRB/keerthi D 86611, 71849 CONTINUED ON NEXT PAGE RUN DATE: 01/23/19 [facility] PAGE 2 RUN TIME: 153 Specimen Inquiry RUN USER: I NTERFACE S PEC #: [id number] PATIENT: JOSHUA CACERES #[id number] (Continued) MACROSCOPIC The specimen is received fresh and labeled with the patient's name and consists of 32 mL of yellow fluid to be processed for cytologic evaluation. GROSS PERFORMED AT [facility] [address] [facility] [address] [phone] MICROSCOPIC All of the stains, incl uding any controls performed, stain appropriately. MICROSCOPIC PERFORMED A T [facility] [address] [place] [address] [phone] PERFORMING SITE Diagnosis perfo rmed at: [facility], [place] [address] [place] [address] [phone] Signed SIGNATURE ON FILE Jered Muro MD 01/23/19 1537 END OF REPORT - XR CHEST 2 [id number] 12:49:00 FAX: Kiran Matute [phone] [place]: [facility]: [facility] FAX: Cheko Jacobs MD [phone] Name: JOSHUA CACERESE [facility] : 1960 Age/S: 58/M [address] [facility] Unit #: [id number] Loc: [place] [address] Phys: Cheko Joseph MD Acct: [id number] Dis Date: Status: REG CLI PHONE #: [phone] Exam Date: 01/23/2019 1200 FAX #: [phone] Reason: R PTX EXAMS: CPT CODE: [id number] XR CHEST 2 V 77638 REASON FOR EXAM: R PTX Exam Order Date: 11:43 AM Ordering M.D.: Cheko Joseph MD PROCED URE: - XR CHEST 2 V COMPARISON: FINDINGS: PA and l ateral views of the chest show clear lungs without evidence of consolidati on. No evidence of effusion. The heart size is within normal limits. Pulmo nary vasculatures are unremarkable. The osseous structures are grossly int act. IMPRESSION: Persistent large right hydropneumothorax most l ikely due to trapped lung. The patient is asymptomatic. A follow-up ches t x-ray is scheduled for Sunday. at 2392 Reported and signed by : Cheko Joseph M.D. CC: Kiran Lizama MD; Cheko Joseph MD Technologist: ARMEN PORTILLO RT (R) Trnscrd Date/Time/By: 01/23/2019 (8342) : By: Josef.VTL Orig Print D/T: S: 01/23/2019 (3193) PAGE 1 Signed Report BODY FLUID CELL [id number] 18:12:00* Test Item Value Reference Range Interpretation Comments FLUID SOURCE (test code = SOURCEFL) PLEURAL FLD FLUID COLOR (test code = COLFL) YELLOW COLORLESS FLUID APPEARANCE (test code = APPFL) CLEAR FLUID WBC AUTO (test code = WBCFLA) 156 cells/uL FLUID RBC AUTO (test code = RBCFLA) 0 cells/uL FLUID TOTAL CELLS (test code = TCFL) 225 cells/uL >0 Fluid WBC RBC PMN% MN%Type cells/uL cells/uL CSF (0-5) n/a (2+/-4) (90+/-20)Peritoneal n/a n/a n/a n/aPleural n/a n/a n/a n/aSynovial <200 n/a <25% <75% CSF (0-30) n/a (4+/-4) (90+/-20) FLUID POLY (test code = POLYFL) 4.0 % FLUID LYMPHOCYTE (test code = LYMPHFL) 38.0 % FLUID EOSINOPHIL (test code = EOSFL) 19.0 % FLUID BASOPHIL (test code = BASOFL) 1.0 % FLUID MACROPHAGE (test code = MACFL) 38.0 % TOTAL CELLS COUNTED ON DIFF (test code = TOTCELLFL) 100 cells REVIEWED BY (test code = REVIEW) GALDINO PÉREZ PATHOLOGIST FLUID [id number] 18:12:00* Test Item Value Reference Range Interpretation Comments FLUID GLUCOSE (test code = GLUFL) 92 mg/dL FLUID [id number] 18:12:00* Test Item Value Reference Range Interpretation Comments FLUID PROTEIN (test code = PROTFL) 4.9 gram/dL BODY FLUID CELL [id number] 14:22:00* Test Item Value Reference Range Interpretation Comments FLUID SOURCE (test code = SOURCEFL) FLUID COLOR (test code = COLFL) YELLOW COLORLESS FLUID APPEARANCE (test code = APPFL) CLEAR FLUID WBC AUTO (test code = WBCFLA) 156 cells/uL FLUID RBC AUTO (test code = RBCFLA) 0 cells/uL FLUID TOTAL CELLS (test code = TCFL) 225 cells/uL >0 Fluid WBC RBC PMN% MN%Type cells/uL cells/uL CSF (0-5) n/a (2+/-4) (90+/-20)Peritoneal n/a n/a n/a n/aPleural n/a n/a n/a n/aSynovial <200 n/a <25% <75% CSF (0-30) n/a (4+/-4) (90+/-20) FLUID POLY (test code = POLYFL) 4.0 % FLUID LYMPHOCYTE (test code = LYMPHFL) 38.0 % FLUID EOSINOPHIL (test code = EOSFL) 19.0 % FLUID BASOPHIL (test code = BASOFL) 1.0 % FLUID MACROPHAGE (test code = MACFL) 38.0 % TOTAL CELLS COUNTED ON DIFF (test code = TOTCELLFL) 100 cells REVIEWED BY (test code = REVIEW) PATHOLOGIST FLUID [id number] 14:22:00* Test Item Value Reference Range Interpretation Comments FLUID GLUCOSE (test code = GLUFL) 92 mg/dL FLUID [id number] 14:22:00* Test Item Value Reference Range Interpretation Comments FLUID PROTEIN (test code = PROTFL) 4.9 gram/dL BODY FLUID CELL [id number] 14:22:00* Test Item Value Reference Range Interpretation Comments FLUID SOURCE (test code = SOURCEFL) PLEURAL FLD FLUID COLOR (test code = COLFL) YELLOW COLORLESS FLUID APPEARANCE (test code = APPFL) CLEAR FLUID WBC AUTO (test code = WBCFLA) 156 cells/uL FLUID RBC AUTO (test code = RBCFLA) 0 cells/uL FLUID TOTAL CELLS (test code = TCFL) 225 cells/uL >0 Fluid WBC RBC PMN% MN%Type cells/uL cells/uL CSF (0-5) n/a (2+/-4) (90+/-20)Peritoneal n/a n/a n/a n/aPleural n/a n/a n/a n/aSynovial <200 n/a <25% <75% CSF (0-30) n/a (4+/-4) (90+/-20) FLUID POLY (test code = POLYFL) 4.0 % FLUID LYMPHOCYTE (test code = LYMPHFL) 38.0 % FLUID EOSINOPHIL (test code = EOSFL) 19.0 % FLUID BASOPHIL (test code = BASOFL) 1.0 % FLUID MACROPHAGE (test code = MACFL) 38.0 % TOTAL CELLS COUNTED ON DIFF (test code = TOTCELLFL) 100 cells REVIEWED BY (test code = REVIEW) PATHOLOGIST FLUID [id number] 14:22:00* Test Item Value Reference Range Interpretation Comments FLUID GLUCOSE (test code = GLUFL) 92 mg/dL FLUID [id number] 14:22:00* Test Item Value Reference Range Interpretation Comments FLUID PROTEIN (test code = PROTFL) 4.9 gram/dL - SP THORACENTESIS [id number] 14:11:00 Name: NICKIJOSHUA QUIÑONES [facility] : 1960 Age/S: 58 / M [address] [facility] Unit #: [id number] Loc: [place] [address] Phys: Vic Rey MD Acct: [id number] Dis Date: Status: [facility] PHONE #: [phone] Exam Date: 01/22/2019 1030 FAX #: [phone] Reason: PLEURAL EFUSION EXAMS: CPT CODE: [id number] SP THORACENTESIS W/IMAG 87162 Fluoro Time: DAP (Gy m2): Air Kerma (mGy): REASON FOR EXAM: PLEURAL EFUSION Exam order date: 01/22/2019 10:15 AM PROCEDURE: Ultrasound guided right thoracentesis Attending Rylie: Vic Rey MD CPT code: 63845, 21160 FINDINGS: Prior to the procedure, informed consent was obtained after risks and benefits of the procedure were explained to the patient. The patient agreed and wanted to proceed. The patient was brought to special procedures. The back was prepped and draped in the usual fashion. All elements of maximal sterile techniques were followed. Ultrasound was first used for assessment of the effusion. US shows large right effusion. Images of the effusion were submitted to PACS. 2% local lidocaine was given for local anesthetic. Under real time ultrasound guidance, a micropuncture needle was advanced into the right thoracic cavity. A guide wire was inserted and an 8 Fr catheter was inserted in the thoracic cavity. 3.4 L of fluid obtained. The catheter was removed and hemostasis obtained. Samples were submitted for gram stain, cultures, cell count, LDH, glucose, and protein. MEDICATIONS: None COMPLICATIONS: Mild right pneumothorax or incomplete exp ansion due to trapped lung. Blood loss: less than 5cc IMPRESSION: 3.4 L of fluid removed from the right thoracic cavity. Most likely incomplete expansion due to trapped lung. The patient r emains asymptomatic Electronically Signed by Rylie Joseph on 019 at 1411 Reported and signed by: Cheko Joseph M.D. CC : Vic Rey MD Technologist: Sarah Nelson Trnwib Date/Time: 01/22/2019 (141 1) Josef.[email or web address] Orig Print D/T: S: 01/22/2019 (1414) PAG E 1 Signed Report - XR CHEST 1 [id number] 13:45:00 FAX: Vic Langford [phone] [place]: B St: REG Name: [place] CORRYJOSHUA QUIÑONES [facility] : [birth year] 59 Age/S: 58/M [address] Unit #: [id number] Loc: [place] [address] Phys: Cheko Joseph MD Acct: [id number] Dis Date: Status: REG [facility] PHONE #: [phone] Exam Date: 01/22/2019 1206 FAX #: [phone] Reason: POST THORACENTESIS EXAMS: CPT CODE: [id number] XR CHEST 1 V 26837 REASON FOR EXAM: POST THOR ACENTESIS, known right pneumothorax. Patient is asymptomatic. EXAM ORDER DATE: 01/22/2019 12:00 PM Ordering M.DCaleb: Cheko Joseph MD PROCEDURE: - XR CHEST 1 V COMPARISON: 01/22/2019 at 10:43 AM FINDINGS: Portable AP frontal view of the chest obtained at 12:07 PM shows clear lungs without evidence of consolidation. There is no evidence of effusion. The heart size is minimally enlarged. Pulmonary vasculatures are unremarkable. IMPRESSION: Slight interval improvement in the right pneumothorax now measuring approximately 30%. at 4449 Reported and signed by: Cheko Joseph M.D. CC: Vic Rey MD Technologist: Carmen fernando RT(R) Trnscrd Date/Time/By: 01/22/2019 ( 1469) : By: DavidVTL Orig Print D/T: S: 01/22/2019 (6952) PAGE 1 Signed Report BODY FLUID CELL [id number] 11:42:00* Test Item Value Reference Range Interpretation Comments FLUID SOURCE (test code = SOURCEFL) FLUID COLOR (test code = COLFL) COLORLESS FLUID APPEARANCE (test code = APPFL) FLUID WBC (test code = WBCFL) per mm3 0-150 FLUID WBC AUTO (test code = WBCFLA) 156 cells/uL FLUID RBC (test code = RBCFL) per mm3 0-50 FLUID RBC AUTO (test code = RBCFLA) 0 cells/uL FLUID TOTAL CELLS (test code = TCFL) 225 cells/uL >0 Fluid WBC RBC PMN% MN%Type cells/uL cells/uL CSF (0-5) n/a (2+/-4) (90+/-20)Peritoneal n/a n/a n/a n/aPleural n/a n/a n/a n/aSynovial <200 n/a <25% <75% CSF (0-30) n/a (4+/-4) (90+/-20) TOTAL CELLS COUNTED ON DIFF (test code = TOTCELLFL) cells REVIEWED BY (test code = REVIEW) PATHOLOGIST FLUID [id number] 11:42:00* Test Item Value Reference Range Interpretation Comments FLUID GLUCOSE (test code = GLUFL) 92 mg/dL FLUID [id number] 11:42:00* Test Item Value Reference Range Interpretation Comments FLUID PROTEIN (test code = PROTFL) 4.9 gram/dL BODY FLUID CELL [id number] 11:33:00* Test Item Value Reference Range Interpretation Comments FLUID SOURCE (test code = SOURCEFL) FLUID COLOR (test code = COLFL) COLORLESS FLUID APPEARANCE (test code = APPFL) FLUID WBC (test code = WBCFL) per mm3 0-150 FLUID WBC AUTO (test code = WBCFLA) 156 cells/uL FLUID RBC (test code = RBCFL) per mm3 0-50 FLUID RBC AUTO (test code = RBCFLA) 0 cells/uL FLUID TOTAL CELLS (test code = TCFL) 225 cells/uL >0 Fluid WBC RBC PMN% MN%Type cells/uL cells/uL CSF (0-5) n/a (2+/-4) (90+/-20)Peritoneal n/a n/a n/a n/aPleural n/a n/a n/a n/aSynovial <200 n/a <25% <75% CSF (0-30) n/a (4+/-4) (90+/-20) TOTAL CELLS COUNTED ON DIFF (test code = TOTCELLFL) cells REVIEWED BY (test code = REVIEW) PATHOLOGIST FLUID [id number] 11:33:00* Test Item Value Reference Range Interpretation Comments FLUID GLUCOSE (test code = GLUFL) 92 mg/dL FLUID [id number] 11:33:00* Test Item Value Reference Range Interpretation Comments FLUID PROTEIN (test code = PROTFL) gram/dL BODY FLUID CELL [id number] 11:29:00* Test Item Value Reference Range Interpretation Comments FLUID SOURCE (test code = SOURCEFL) FLUID COLOR (test code = COLFL) COLORLESS FLUID APPEARANCE (test code = APPFL) FLUID WBC (test code = WBCFL) per mm3 0-150 FLUID RBC (test code = RBCFL) per mm3 0-50 FLUID TOTAL CELLS (test code = TCFL) cells/uL >0 TOTAL CELLS COUNTED ON DIFF (test code = TOTCELLFL) cells REVIEWED BY (test code = REVIEW) PATHOLOGIST FLUID [id number] 11:29:00* Test Item Value Reference Range Interpretation Comments FLUID GLUCOSE (test code = GLUFL) 92 mg/dL FLUID [id number] 11:29:00* Test Item Value Reference Range Interpretation Comments FLUID PROTEIN (test code = PROTFL) gram/dL - XR CHEST 1 [id number] 11:09:00 FAX: Vic Langford [phone] [place]: St: REG Name: JOSHUA VENEGAS [facility] : [birth year] Age/S: 58/M [address] [facility] Unit #: [id number] Loc: [place] [address] Phys: Cheko Joseph MD Acct: [id number] Dis Date: Status: [facility] PHONE #: [phone] Exam Date: 01/22/2019 1043 FAX #: [phone] Reason: S/P THORACENTESIS EXAMS: CPT CODE: [id number] XR CHEST 1 V 12085 REASON FOR EXAM: S/P THORA CENTESIS Exam Order Date: 01/22/2019 12:00 AM Sheila gallo M.D.: Cheko Joseph MD PROCEDURE: - XR CHEST 1 V COM PARISON: Chest radiograph September 19, 2018 FINDINGS: There is a large right-sided pneumothorax following thoracentesis. No mediastinal s hift is seen. The left lung is clear. Cardiomediastinal silhouette is normal in size for technique. The mediastinal contours are within norm al limits. Musculoskeletal structures are within normal limits. The visualized upper abdomen is within normal limits. IMPRESSION: Large right-sided pneumothorax owing thoracentesis. No mediastinal shift is seen. at 1109 Reported and signed by: Kyle Mcelroy MD CC: Vic Rey MD Technologist: Lulu Edwards(R) Rubi rnscrd Date/Time/By: 01/22/2019 (8072) : By: [email or web address] Orig Print D/T: S: 01/22/2019 (8593) PAGE 1 Sign ed Report - SP FLUORO GUID CTRL ACC [id number] 09:51:00 Name: JOSHUA CACERES [facility] : 1960 Age/S: 58 / M [address] [facility] Unit #: [id number] Loc: [place] [address] Phys: Vic Rey MD Acct: [id number] Dis Date: Status: [facility] PHONE #: [phone] Exam Date: 01/22/2019923 FAX #: [phone] Reason: / EXAMS: CPT CODE: [id number] SP FLUORO GUID CTRL ACC DEV 67341 Fluoro Time: 2 DAP (Gy m2): 0.496 Air Kerma (mGy): 1.24 REASON FOR EXAM: / Exam order date: 01/22/2019 9:15 AM PROCEDURE: Removal Of Tunneled Hemodialysis Catheter CPT code: 90384, 80872 FINDINGS: Prior to the procedure, informed consent was obtained after risks and benefits of the procedure were explained to the patient. The patient agreed and wanted to proceed. The patient was brought to special procedures and placed supine on the table. The right anterior chest wall was prepped and draped in the usual fashion. All maximal sterile barrier techniques were applied. 2% local lidocaine was given. Using blunt dissection, the cuff was freed with a hemostat and the catheter was removed. The tip was sent for culture. MEDICATIONS: None. COMPLICATIONS: None. BLOOD LOSS: Less than 5 cc Fluoroscopic time: 2 sec Fluoroscopic dose: 1.2 mGy IMPRESSION: right IJ TUNNELED HEMODIALYSIS CATHETER WAS REMOVED. at 0951 Reported and signed by: Cheko Joseph M.D. CC: Vic Rey MD Technologist: KEN NICOLAS RRT Trnscb Date/Time: 01/22/2019 (0951) Vanessa Orig Print D/T: S: 01/22/2019 (5039) PAGE 1 Signed Report [id number] 08:25:00* Test Item Value Reference Range Interpretation Comments GLUBED (test code = GLUBED) 81 mg/dL 74-106 N Performed by certified pearl glue operator at [facility] PROTHROMBIN [id number] 08:16:00* Test Item Value Reference Range Interpretation Comments PROTHROMBIN TIME PATIENT (test code = PTP) 11.1 seconds 9.0-14.0 N INTERNATIONAL NORMAL RATIO (test code = INR) 0.9 0.8-1.2 N The therapeutic range for oral anticoagulant therapy formost indications is an international normalized ratio (INR)of between 2.0 and 3.0. The recommended therapeutic INRrange for various clinical situations is listed below: Clinical Situation INR range Pulmonary e mbolism treatment (2.0-3.0)Venous thrombosis treatmentVenous thrombosis prophylaxis (high risk surgery)Prevention of systemic embolism from: Acute myocardial infarction Valvular heart disease Atrial fibrillation Mechanical prosthetic heart valves (2.5-3.5) IS PATIENT ON ANTICOAGULANTS? YLIST ANTICOAGULANTS UNKNOWNSPECIMEN COMMENTS: TO BRING INFORMATIONCOMMENTS TO [employer]ROL COMMUNITY SERVICE OFFICER: IN DSUTHROMBOPLASTIN TIME PARTIAL 2019-01-22 08:16:00* Test Item Value Reference Range Interpretation Comments THROMBOPLASTIN TIME PARTIAL (test code = PTT) 36.0 seconds 25.0-36. 5 N IS PATIENT ON ANTICOAGULANTS? YLIST ANTICOAGULANTS UNKNOWNSPECIMEN COMMENTS: TO BRING INFORMATIONCOMMENTS TO PATROL COMMUNITY SERVICE OFFICER: IN DSUPLATELET [id number] 08:06:00* Test Item Value Reference Range Interpretation Comments PLATELET COUNT (test code = PLT) 133 K/mm3 150-450 L [id number] 08:02:00* Test Item Value Reference Range Interpretation Comments POTASSIUM (test code = K) 4.5 mmol/L 3.5-5.1 N URINE [id number] 09:16:00* Test Item Value Reference Range Interpretation Comments CULTURE (AptitoAKER) (test code = 1095) 40-49,000 col/mL skin marisol [id number] 11:08:00* Test Item Value Reference Range Interpretation Comments RPR SCREEN (AptitoAKER) (test code = 420) Nonreactive Nonreactive CYTOMEGALOVIRUS ANTIBODY, [id number] 10:37:00* Test Item Value Reference Range Interpretation Comments CYTOMEGALOVIRUS, IGG (BEAKER) (test code = 3429) Positive Negat aye, Equivocal A CMV IgG Result Interpretation: </= 0.8 Al Negative 0.9-1.0 Al Equivocal > /=1.1 Al PositiveCYTOMEGALOVIRUS ANTIBODY, [id number] 10:37:00* Test Item Value Reference Range Interpretation Comments CYTOMEGALOVIRUS IGM ANTIBODY (BEAKER) (test code = 3437) Neg ative Negative, Equivocal CMV IgM Result Interpretation: </= 0.8 Al Negative 0.9-1.0 Al Equivocal > /= 1.1 Al PositiveEBV ANTIBODY, [id number] 10:37:00* Test Item Value Reference Range Interpretation Comments MICHEAL SANTANA VIRAL CAPSID ANTIGEN IGG (BEAKER) (test code = 3415) Positive Negative, Equivocal A Micheal Santana Viral Capsid Antigen IgG Result Interpretation: </= 0.8 Al Negative 0.9-1.0 Al Equivocal >/= 1.1 Al PositiveEBV ANTIBODY, [id number] 10:37:00* Test Item Value Reference Range Interpretation Comments MICHEAL SANTANA VIRAL CAPSID ANTIGEN IGM (BEAKER) (test code = 3418) Negative Negative, Equivocal Micheal Santana Viral Capsid Antigen IgM Result Interpretation: </= 0.8 Al Negative 0.9-1.0 Al Equivocal >/= 1.1 Al PositiveVARICELLA ZOSTER ANTIBODY, [id number] 10:37:00* Test Item Value Reference Range Interpretation Comments VARICELLA ZOSTER IGG (AL) (BEAKER) (test code = 3197) 4.9 VARICELLA ZOSTER RESULT INTERPRETATIONS: <=0.8 Al Nonreactive: Presumed non-immune to VZV 0.9-1.0 Al Equivocal >=1.1 Al Reactive: Presumed immune to VZVHEMOGLOBIN [id number] 15:18:00* Test Item Value Reference Range Interpretation Comments HEMOGLOBIN A1C (BEAKER) (test code = 368) 5.3 % 4.3-6.1 HEPATITIS B SURFACE [id number] 13:42:00* Test Item Value Reference Range Interpretation Comments HEPATITIS B SURFACE ANTIBODY (BEAKER) (test code = 647) < mIU/mL <8.0 HEPATITIS B SURFACE [id number] 13:31:00* Test Item Value Reference Range Interpretation Comments HEPATITIS B SURFACE ANTIGEN (2) (BEAKER) (test code = 2585) Nonreactive Nonreactive HEPATITIS B CORE ANTIBODY, [id number] 13:31:00* Test Item Value Reference Range Interpretation Comments HEPATITIS B CORE IGM ANTIBODY (BEAKER) (test code = 645) Non reactive Nonreactive HEPATITIS C [id number] 13:31:00* Test Item Value Reference Range Interpretation Comments HEPATITIS C ANTIBODY (BEAKER) (test code = 367) Nonreactive Nonrea ctive HIV-1 ANTIGEN WITH HIV-1/2 [id number] 13:31:00* Test Item Value Reference Range Interpretation Comments HIV-1 ANTIGEN WITH HIV 1\\T\\2 ANTIBODY (2) (BEAKER) (te st code = 2586) Nonreactive Nonreactive COMPREHENSIVE METABOLIC [id number] 13:26:00* Test Item Value Reference Range Interpretation Comments TOTAL PROTEIN (BEAKER) (test code = 770) 8.3 gm/dL 6.0-8.3 ALBUMIN (BEAKER) (test code = 1145) 4.5 g/dL 3.5-5.0 ALKALINE PHOSPHATASE (BEAKER) (test code = 346) 122 U/L 40-150 BILIRUBIN TOTAL (BEAKER) (test code = 377) 0.7 mg/dL 0.2-1.2 SODIUM (BEAKER) (test code = 381) 139 meq/L 136-145 POTASSIUM (BEAKER) (test code = 379) 4.9 meq/L 3.5-5.1 CHLORIDE (BEAKER) (test code = 382) 102 meq/L 98-107 CO2 (BEAKER) (test code = 355) 25 meq/L 22-29 BLOOD UREA NITROGEN (BEAKER) (test code = 354) 43 mg/dL 7-21 H CREATININE (BEAKER) (test code = 358) 8.15 mg/dL 0.57-1.25 H GLUCOSE RANDOM (BEAKER) (test code = 652) 79 mg/dL 70-105 CALCIUM (BEAKER) (test code = 697) 9.5 mg/dL 8.4-10.2 AST (SGOT) (BEAKER) (test code = 353) 21 U/L 5-34 ALT (SGPT) (BEAKER) (test code = 347) 19 U/L 6-55 EGFR (BEAKER) (test code = 1092) 7 mL/min/1.73 sq m ESTIMATED GFR IS NOT ACCURATE CREATININE CLEARANCE IN PREDICTING GLOMERULAR FILTRATION RATE. ESTIMATED GFR IS NOT APPLICABLE FOR DIALYSIS PATIENTS. URIC [id number] 13:19:00* Test Item Value Reference Range Interpretation Comments URIC ACID (BEAKER) (test code = 773) 4.6 mg/dL 2.6-7.2 [id number] 13:19:00* Test Item Value Reference Range Interpretation Comments PHOSPHORUS (BEAKER) (test code = 604) 4.8 mg/dL 2.3-4.7 H GAMMA GLUTAMYL TRANSFERASE (GGT)2018-12-17 13:19:00* Test Item Value Reference Range Interpretation Comments GAMMA GLUTAMYL TRANSFERASE (BEAKER) (test code = 364) 47 U/L 9-64 LACTATE DEHYDROGENASE (LDH)2018-12-17 13:19:00* Test Item Value Reference Range Interpretation Comments LACTATE DEHYDROGENASE (BEAKER) (test code = 635) 263 U/L 125-2 20 H PTH, [id number] 13:14:00* Test Item Value Reference Range Interpretation Comments PARATHYROID HORMONE INTACT (BEAKER) (test code = 577) 236.2 pg/mL 8.5-72.5 H RAD, CHEST, 2 [id number] 12:50:00PCP- Dr. Kiran Garduno [address] [place] [address] Reason for Exam:->esrd; eval for renal txpFINAL REPORT TECHNIQUE: Frontal and lateral views of the chest. INDICATION: esrd; eval for renal txp. COMPARISON: Radiograph from 10/20/2015. FINDINGS: LINES/TUBES: Right IJ tunneled central venous catheter with tip over the high right atrium. LUNGS: There is a questionable lung which measures 0.6 cm. No consolidation or pulmonary edema. PLEURA: Moderate blunting of the right costophrenic sulcus. Mild blunting of the left costophrenic sulcus. HEART AND MEDIASTINUM: The cardiomediastinal silhouette is partially obscured but likely mildly enlarged. SOFT TISSUES AND BONES: Unremarkable. IMPRESSION: Moderate-sized right and small left pleural effusions with associated atelectasis. Mild cardiomegaly. A questionable pulmonary nodule in the right upper lung measures 0.6 cm. A follow-up radiograph is recommended in six months. Signed: Rosy Thompson MDReport Verified Date/Time: 12/17/2018 12:50:06 Reading Location: [address] Radiology Reading Room W/PLT COUNT & AUTO [id number] 12:41:00* Test Item Value Reference Range Interpretation Comments WHITE BLOOD CELL COUNT (BEAKER) (test code = 775) 5.5 K/ L 3.5- 10.5 RED BLOOD CELL COUNT (BEAKER) (test code = 761) 3.93 M/ L 4.63-6 .08 L HEMOGLOBIN (BEAKER) (test code = 410) 12.0 GM/DL 13.7-17.5 L HEMATOCRIT (BEAKER) (test code = 411) 37.8 % 40.1-51.0 L MEAN CORPUSCULAR VOLUME (BEAKER) (test code = 753) 96.2 fL 79. 0-92.2 H MEAN CORPUSCULAR HEMOGLOBIN (BEAKER) (test code = 751) 30.5 pg 25.7-32.2 MEAN CORPUSCULAR HEMOGLOBIN CONC (BEAKER) (test code = 752) 31.7 GM/DL 32.3-36.5 L RED CELL DISTRIBUTION WIDTH (BEAKER) (test code = 412) 14.7 % 11.6-14.4 H PLATELET COUNT (BEAKER) (test code = 756) 108 K/CU MM 150-450 L MEAN PLATELET VOLUME (BEAKER) (test code = 754) 12.7 fL 9.4-12 .4 H NUCLEATED RED BLOOD CELLS (BEAKER) (test code = 413) 0 /100 WBC 0 -0 NEUTROPHILS RELATIVE PERCENT (BEAKER) (test code = 429) 58 % LYMPHOCYTES RELATIVE PERCENT (BEAKER) (test code = 430) 20 % MONOCYTES RELATIVE PERCENT (BEAKER) (test code = 431) 11 % EOSINOPHILS RELATIVE PERCENT (BEAKER) (test code = 432) 10 % BASOPHILS RELATIVE PERCENT (BEAKER) (test code = 437) 1 % NEUTROPHILS ABSOLUTE COUNT (BEAKER) (test code = 670) 3.18 K/ L 1.78-5.38 LYMPHOCYTES ABSOLUTE COUNT (BEAKER) (test code = 414) 1.12 K/ L 1.32-3.57 L MONOCYTES ABSOLUTE COUNT (BEAKER) (test code = 415) 0.61 K/ L 0. 30-0.82 EOSINOPHILS ABSOLUTE COUNT (BEAKER) (test code = 416) 0.53 K/ L 0.04-0.54 BASOPHILS ABSOLUTE COUNT (BEAKER) (test code = 417) 0.06 K/ L 0. 01-0.08 IMMATURE GRANULOCYTES-RELATIVE PERCENT (BEAKER) (test code = 2801) 0 % 0-1 [id number] 12:41:00* Test Item Value Reference Range Interpretation Comments PROTIME (BEAKER) (test code = 759) 14.0 seconds 11.9-14.2 INR (BEAKER) (test code = 370) 1.1 <=5.9 PARTIAL THROMBOPLASTIN TIME (BEAKER) (test code = 760) 34.9 seconds 22.5-36.0 Effective 09/25/2018: PT Reference Range ChangeNew: 11.9-14.2 Previous: 11.7-14. 7RECOMMENDED COUMADIN/WARFARIN INR THERAPY RANGESSTANDARD DOSE: 2.0-3.0 Include s: PROPHYLAXIS for venous thrombosis, systemic embolization; TREATMENT for venou s thrombosis and/or pulmonary embolus.HIGH RISK: Target INR is 2.5-3.5 for patie nts wiht mechanical heart valves.CBC W Auto Differential panel - [id number] 13:13:00* Test Item Value Reference Range Interpretation Comments WBC (test code = WBC) 4.78 x10*3/?L 4.23-9.07 RBC (test code = RBC) 3.05 10*12/L 4.63-6.08 L hemoglobin (test code = hemoglobin) 9.40 g/dL 13.70-17.50 L hematocrit (test code = hematocrit) 29.8 % 40.1-51.0 L MCV (test code = MCV) 97.7 fL 80.0-100.0 MCH (test code = MCH) 30.8 pg 25.7-32.2 MCHC (test code = MCHC) 31.5 g/dL 32.3-36.5 L RDW-SD (test code = RDW-SD) 50.1 fL 35.1-43.9 H platelet count (test code = platelet count) 126.0 k/uL 163.0-337. 0 L MPV (test code = MPV) 13.4 fL 7.5-11.5 H neut% (test code = neut%) 58.9 % 34.0-67.9 lymph% (test code = lymph%) 21.3 % 21.8-53.1 L mon% (test code = mon%) 11.7 % 5.3-12.2 eos% (test code = eos%) 7.5 % 0.8-7.0 H baso% (test code = baso%) 0.6 % 0.2-1.2 neut# (test code = neut#) 2.8 x10*3/?L 1.8-5.4 lymph# (test code = lymph#) 1.0 x10*3/?L 1.3-3.6 L mon# (test code = mon#) 0.6 x10*3/?L 0.3-0.8 eos# (test code = eos#) 0.36 x10*3/?L 0.04-0.54 baso# (test code = baso#) 0.03 x10*3/?L 0.01-0.08 [facility] W Auto Differential panel - [id number] 13:13:00 * Test Item Value Reference Range Interpretation Comments WBC (test code = WBC) 4.78 x10*3/?L 4.23-9.07 RBC (test code = RBC) 3.05 10*12/L 4.63-6.08 L hemoglobin (test code = hemoglobin) 9.40 g/dL 13.70-17.50 L hematocrit (test code = hematocrit) 29.8 % 40.1-51.0 L MCV (test code = MCV) 97.7 fL 80.0-100.0 MCH (test code = MCH) 30.8 pg 25.7-32.2 MCHC (test code = MCHC) 31.5 g/dL 32.3-36.5 L RDW-SD (test code = RDW-SD) 50.1 fL 35.1-43.9 H platelet count (test code = platelet count) 126.0 k/uL 163.0-337. 0 L MPV (test code = MPV) 13.4 fL 7.5-11.5 H neut% (test code = neut%) 58.9 % 34.0-67.9 lymph% (test code = lymph%) 21.3 % 21.8-53.1 L mon% (test code = mon%) 11.7 % 5.3-12.2 eos% (test code = eos%) 7.5 % 0.8-7.0 H baso% (test code = baso%) 0.6 % 0.2-1.2 neut# (test code = neut#) 2.8 x10*3/?L 1.8-5.4 lymph# (test code = lymph#) 1.0 x10*3/?L 1.3-3.6 L mon# (test code = mon#) 0.6 x10*3/?L 0.3-0.8 eos# (test code = eos#) 0.36 x10*3/?L 0.04-0.54 baso# (test code = baso#) 0.03 x10*3/?L 0.01-0.08 [facility] Serum or [id number] 16:06:00* Test Item Value Reference Range Interpretation Comments TSH (test code = TSH) 2.759 uIU/mL 0.350-4.940 [facility] [Units/volume] in Serum or [id number] 16:06:00* Test Item Value Reference Range Interpretation Comments TSH (test code = TSH) 2.759 uIU/mL 0.350-4.940 [facility]2018-09-28 06:40:00 [place] [address] Patient Name: JOSHUA WHEELER MR #: [id number] : 1960 Age/Sex: 57/M Req #: [id number] Adm Physician: PETRA GRIMALDO MD Ordered by: BRIE KRAMER WARP STARTER Report #: [id number] Location: MED/SURG3 Room/Bed: [facility] Procedure: [id number] D X/CHEST SINGLE (PORTABLE) Exam Date: Exam Time: REPORT STATUS: Signed EXAMINATION: CHEST SINGLE (PORTABLE) COMPARISON: Chest x-ray 09/27/2018 INDICA TION: Weakness WEAKNESS DISCUSSION: Frontal view of the chest [place] ser[place] at 0558 hours. HEART AND MEDIASTINUM: Stable mild cardiomegaly LINES: Dual lumen central venous catheter remains at the cavoatrial junction LUNGS: Increasing right basilar airspace opacities. Left lung is clear. Pu lmonary venous prominence has developed PLEURA: Stable right pleural effus ion. Tiny left pleural effusion. No pneumothorax BONES AND SOFT TISSUES: No focal osseous lesion. The soft tissues are normal. IMPRESSION: Mi ld vascular congestion. Increasing right basilar airspace opacity suggestive o f pneumonia or atelectasis. Stable pleural effusions, right larger than left. Signed by: Dr. Wes Lopez MD on 09/28/2018 6:42 AM Dictated By: WES LOPEZ MD 1 Transcribed By: LOREE on 09/28/18641 COPY TO: BRIE KRAMER CHEST 2 [id number] 16:22:00 [place] [address] Patient Name: JOSHUA WHEELER MR #: [id number] : 1960 Age/Sex: 57/M Req #: [id number] Adm Physician: Ordered by: SOUMYA SEGOVIA MD Report #: [id number] Location: ER Room/Bed: Procedure: [id number] DX/CHEST 2 VIEWS Exam Date: 09/27/18 Exam Time: 151 5 REPORT STATUS: Signed EXAMI NATION: PA and lateral views of the chest. COMPARISON: 07/08/2018 CLINI YANIV HISTORY: Sepsis DISCUSSION: Moderate right pleural effusion with right lower and middle lobe airspace disease likely atelectasis. Left carmen g is clear with a trace pleural effusion. Stable cardiomediastinal contour. Pu lmonary vascular congestion described on the comparison study has resolved. No acute osseous abnormality. Right internal jugular tunneled hemodialys is catheter is stable. IMPRESSION: Moderate right and trace left pleural effusions. Right lower and middle lobe opacities likely passive atelectasis. Pulmonary venous congestion described on the prior has resolved. Signed by: Dr. Ken Aragon M.D. on 09/27/2018 4:26 PM Dictated B y: KEN ARAGON MD 25 Transcribed By: LOREE on 09/27/181625 COPY TO: SOUMYA SEGOVIA MD [id number] 17:44:00* Test Item Value Reference Range Interpretation Comments GLUBED (test code = GLUBED) 164 mg/dL 74-106 H Performed by certified pearl glue operator at [facility] CBC W/AUTO [id number] 14:52:00* Test Item Value Reference Range Interpretation Comments WHITE BLOOD CELL (test code = WBC) 6.9 K/mm3 4.5-12.5 N RED BLOOD CELL (test code = RBC) 4.48 mill/mm3 4.0-5.8 N HEMOGLOBIN (test code = HGB) 13.7 gram/dL 13.0-17.5 N HEMATOCRIT (test code = HCT) 43.8 % 42.0-52.0 N MEAN CELL VOLUME (test code = MCV) 97.8 fL 80-98 N MEAN CELL HGB (test code = MCH) 30.6 picogram 27.0-33.0 N MEAN CELL HGB CONCETRATION (test code = MCHC) 31.3 gram/dL 33.0-36. 0 L RED CELL DISTRIBUTION WIDTH (test code = RDW) 14.1 % 11.6-16. 2 N RED CELL DISTRIBUTION WIDTH SD (test code = RDW-SD) 51.4 fL 37 .0-51.0 H PLATELET COUNT (test code = PLT) 89 K/mm3 150-450 L MEAN PLATELET VOLUME (test code = MPV) 14.0 fL 6.7-11.0 H NEUTROPHIL % (test code = NT%) 73.5 % 39.0-69.0 H IMMATURE GRANULOCYTE % (test code = IG%) 0.6 % 0.0-5.0 N LYMPHOCYTE % (test code = LY%) 17.0 % 25.0-55.0 L MONOCYTE % (test code = MO%) 5.3 % 0.0-10.0 N EOSINOPHIL % (test code = EO%) 2.9 % 0.0-5.0 N BASOPHIL % (test code = BA%) 0.7 % 0.0-1.0 N NUCLEATED RBC % (test code = NRBC%) 0.0 % 0-0 N NEUTROPHIL # (test code = NT#) 5.09 K/mm3 1.8-7.7 N IMMATURE GRANULOCYTE # (test code = IG#) 0.04 x10 3/uL 0-0.03 H LYMPHOCYTE # (test code = LY#) 1.18 K/mm3 1.0-5.0 N MONOCYTE # (test code = MO#) 0.37 K/mm3 0-0.8 N EOSINOPHIL # (test code = EO#) 0.20 K/mm3 0.0-0.5 N BASOPHIL # (test code = BA#) 0.05 K/mm3 0.0-0.2 N NUCLEATED RBC # (test code = NRBC#) 0.00 K/mm3 0.0-0.1 N MANUAL DIFF REQUIRED (test code = MDIFF) NO, ONLY SCAN NEEDED DIFFERENTIAL [id number] 14:52:00* Test Item Value Reference Range Interpretation Comments STAIN ACCEPTABILITY (test code = STN ACCEPTABLE) STAIN ACCEPTABLE PLATELET ESTIMATE (test code = PLTEST) DECREASED PLATELET MORPHOLOGY (test code = PLTMORPH) NORMAL BASIC METABOLIC [id number] 14:21:00* Test Item Value Reference Range Interpretation Comments SODIUM (test code = NA) 137 mmol/L 136-145 N POTASSIUM (test code = K) 4.8 mmol/L 3.5-5.1 N CHLORIDE (test code = CL) 103.0 mmol/L 98-107 N CARBON DIOXIDE (test code = CO2) 26.0 mmol/L 21-32 N ANION GAP (test code = GAP) 12.8 10-20 N GLUCOSE (test code = GLU) 134 mg/dL 74-106 H BLOOD UREA NITROGEN (test code = BUN) 46 mg/dL 7-18 H GLOMERULAR FILTRATION RATE (test code = GFR) 9 mL/min >=60 Estimated GFR by using Modified MDRD formula.Chronic kidney disease is defined as either kidney damageor GFR <60 mL/min/1.73 m2 for >3 months. CREATININE (test code = CREAT) 6.60 mg/dL 0.7-1.3 H BUN/CREATININE RATIO (test code = BUN/CREA) 7.0 10-20 L CALCIUM (test code = CA) 8.7 mg/dL 8.5-10.1 N HEPATIC FUNCTION [id number] 14:21:00* Test Item Value Reference Range Interpretation Comments TOTAL PROTEIN (test code = PROT) 7.4 gram/dL 6.4-8.2 N ALBUMIN (test code = ALB) 3.6 g/dL 3.4-5.0 N GLOBULIN (test code = GLOB) 3.8 gram/dL 2.7-4.2 N ALBUMIN/GLOBULIN RATIO (test code = A/G) 1.0 0.75-1.50 N BILIRUBIN TOTAL (test code = BILT) 0.50 mg/dL 0.0-1.0 N BILIRUBIN DIRECT (test code = BILD) 0.12 mg/dL 0.0-0.20 N SGOT/AST (test code = AST) 40 IUnit/L 15-37 H SGPT/ALT (test code = ALT) 50 IUnit/L 12-78 N ALKALINE PHOSPHATASE TOTAL (test code = ALKP) 133 IUnit/L 45-117 H Note change in reference range due to change in reagent. [id number] 14:21:00* Test Item Value Reference Range Interpretation Comments TROPONIN-I (test code = TROPI) 0.016 ng/mL 0-0.045 N - XR CHEST 1 [id number] 14:21:00 FAX: Usman Hendrickson DO [place]: B St: REG Name: JOSHUA VENEGAS [facility] : [birth year] Age/S: 57/M [address] [facility] Unit #: [id number] Loc: [place] [address] Phys: Usman Hendrickson DO Acct: [id number] Dis Date: Status: REG ER PHONE #: [phone] Exam Date: 09/19/2018 1337 FAX #: [phone] Reason: Altered Mental Status EXAMS: CPT CODE: [id number] XR CHEST 1 V 84592 Location: T 18 Chest x-ray exam, PA frontal projection, 09/19/18 CLINICAL HISTORY: Alt eration in mental status. Emergency room presentation Compar luci exam: None of the chest FINDINGS: Heart size is within normal limits. There is presence of small bilateral pleural effusi ons with small degree of blunting of both CP angles likely due to fluid ov erload. Elevation of small degree of right hemidiaphragm presumably chroni c. No definite findings for pneumonia or abnormal air collection. Mild pul monary venous engorgement is noted. IMPRESSION: Bilateral pleural effusions of small size likely due to fluid ov erload. Follow-up would be helpful to exclude underlying process at 1422 Reported and s igned by: Iona Driscoll M.D. CC: Usman Hendrickson DO Technologist: Carmen Watkins RT(R) Trnscrd Date/Time/By: 09/19/2018 (1415) : By: [email or web address] Orig Print D/T: S: 09/19/2018 (7241) PAGE 1 Signed Report - CT HEAD/BRAIN W/O [id number] 14:10:00 Name: JOSHUA CACERES [facility] : 1960 Age/S: 57 / M [address] [facility] Unit #: [id number] Loc: [place] [address] Phys: Usman Hendrickson DO Acct: [id number] Dis Date: Status: REG ER PHONE #: [phone] Exam Date: 09/19/2018 1404 FAX #: [phone] Reason: Altered Mental Status EXAMS: CPT CODE: [id number] CT HEAD/BRAIN W/O CONT 84275 TECHNIQUE: - CT HEAD/BRAIN W/O CONT . This exam was performed using one or more of the following dose reduction techniques: Automated exposure control, adjustment of the mA and/ or kV according to patient size or use of iterative reconstruction technique. COMPARISON: None provided. HISTORY: 57 years Male Altered Mental Status FINDINGS: Supra tentorial compartment and Posterior fossa: No hemorrhage. No intra-axial mass. No midline shift. Volume loss and small vessel white matter ischemic changes. Old ischemic changes basal ganglia bilaterally. Extra-axial structures: No hematoma, fluid collection, or mass. Ventricles and Basal Cisterns: No hydrocephalus. Basal cisterns are normal. Visualized Orbit s: No abnormalities. Visualized Osseous structures: Within normal limits. Visualized paranasal Sinuses: mucosal thickening paranasa l sinuses. Other: None. IMPRESSION: There is no hemorrhage. Volume loss and small ve ssel white matter ischemic changes. Old ischemic changes basal ganglia bilaterally. PAGE 1 Signed Report (CONTINUED) Name: JOSHUA CACERES : 1960 Age/S: 57 / M [address] [facility] Unit #: [id number] Loc: [place] [address] Phys: Usman Hendrickson DO Acct: [id number] Dis Date: Status: REG ER PHONE #: [phone] Exam Date: 09/19/2018 1404 FAX #: [phone] Reason: Altered Mental Status EXAMS: CPT COD E: [id number] CT HEAD/BRAIN W/O CONT 81500 <Continued> at 1410 Reported and signed by: Dillan Menendez M.D. CC: Usman Hendrickson DO Technologist:Glen Kruse RT(R),(MR),(CT); CTDI: DLP: Trnscb Date/Time: 09/19/2018 (1410) Judi Orig Print D/T: S: 09/19/2018 (5376) PAGE 2 Signed Report BASIC METABOLIC [id number] 14:08:00* Test Item Value Reference Range Interpretation Comments SODIUM (test code = NA) 137 mmol/L 136-145 N POTASSIUM (test code = K) 4.8 mmol/L 3.5-5.1 N CHLORIDE (test code = CL) 103.0 mmol/L 98-107 N CARBON DIOXIDE (test code = CO2) mmol/L 21-32 ANION GAP (test code = GAP) 10-20 GLUCOSE (test code = GLU) mg/dL 74-106 BLOOD UREA NITROGEN (test code = BUN) mg/dL 7-18 GLOMERULAR FILTRATION RATE (test code = GFR) mL/min >=60 CREATININE (test code = CREAT) mg/dL 0.7-1.3 BUN/CREATININE RATIO (test code = BUN/CREA) 10-20 CALCIUM (test code = CA) mg/dL 8.5-10.1 HEPATIC FUNCTION [id number] 14:08:00* Test Item Value Reference Range Interpretation Comments TOTAL PROTEIN (test code = PROT) gram/dL 6.4-8.2 ALBUMIN (test code = ALB) g/dL 3.4-5.0 GLOBULIN (test code = GLOB) gram/dL 2.7-4.2 ALBUMIN/GLOBULIN RATIO (test code = A/G) 0.75-1.50 BILIRUBIN TOTAL (test code = BILT) mg/dL 0.0-1.0 BILIRUBIN DIRECT (test code = BILD) mg/dL 0.0-0.20 SGOT/AST (test code = AST) IUnit/L 15-37 SGPT/ALT (test code = ALT) IUnit/L 12-78 ALKALINE PHOSPHATASE TOTAL (test code = ALKP) IUnit/L 45-117 [id number] 14:08:00* Test Item Value Reference Range Interpretation Comments TROPONIN-I (test code = TROPI) ng/mL 0-0.045 CBC W/AUTO [id number] 14:01:00* Test Item Value Reference Range Interpretation Comments WHITE BLOOD CELL (test code = WBC) 6.9 K/mm3 4.5-12.5 N RED BLOOD CELL (test code = RBC) 4.48 mill/mm3 4.0-5.8 N HEMOGLOBIN (test code = HGB) 13.7 gram/dL 13.0-17.5 N HEMATOCRIT (test code = HCT) 43.8 % 42.0-52.0 N MEAN CELL VOLUME (test code = MCV) 97.8 fL 80-98 N MEAN CELL HGB (test code = MCH) 30.6 picogram 27.0-33.0 N MEAN CELL HGB CONCETRATION (test code = MCHC) 31.3 gram/dL 33.0-36. 0 L RED CELL DISTRIBUTION WIDTH (test code = RDW) 14.1 % 11.6-16. 2 N RED CELL DISTRIBUTION WIDTH SD (test code = RDW-SD) 51.4 fL 37 .0-51.0 H PLATELET COUNT (test code = PLT) 89 K/mm3 150-450 L MEAN PLATELET VOLUME (test code = MPV) 14.0 fL 6.7-11.0 H NEUTROPHIL % (test code = NT%) 73.5 % 39.0-69.0 H IMMATURE GRANULOCYTE % (test code = IG%) 0.6 % 0.0-5.0 N LYMPHOCYTE % (test code = LY%) 17.0 % 25.0-55.0 L MONOCYTE % (test code = MO%) 5.3 % 0.0-10.0 N EOSINOPHIL % (test code = EO%) 2.9 % 0.0-5.0 N BASOPHIL % (test code = BA%) 0.7 % 0.0-1.0 N NUCLEATED RBC % (test code = NRBC%) 0.0 % 0-0 N NEUTROPHIL # (test code = NT#) 5.09 K/mm3 1.8-7.7 N IMMATURE GRANULOCYTE # (test code = IG#) 0.04 x10 3/uL 0-0.03 H LYMPHOCYTE # (test code = LY#) 1.18 K/mm3 1.0-5.0 N MONOCYTE # (test code = MO#) 0.37 K/mm3 0-0.8 N EOSINOPHIL # (test code = EO#) 0.20 K/mm3 0.0-0.5 N BASOPHIL # (test code = BA#) 0.05 K/mm3 0.0-0.2 N NUCLEATED RBC # (test code = NRBC#) 0.00 K/mm3 0.0-0.1 N MANUAL DIFF REQUIRED (test code = MDIFF) NO, ONLY SCAN NEEDED DIFFERENTIAL [id number] 14:01:00* Test Item Value Reference Range Interpretation Comments STAIN ACCEPTABILITY (test code = STN ACCEPTABLE) CABOT RINGS (test code = CAB) MORPHOLOGY COMMENT (test code = MOC) PLATELET ESTIMATE (test code = PLTEST) PLATELET MORPHOLOGY (test code = PLTMORPH) CBC W/AUTO [id number] 14:01:00* Test Item Value Reference Range Interpretation Comments WHITE BLOOD CELL (test code = WBC) 6.9 K/mm3 4.5-12.5 N RED BLOOD CELL (test code = RBC) 4.48 mill/mm3 4.0-5.8 N HEMOGLOBIN (test code = HGB) 13.7 gram/dL 13.0-17.5 N HEMATOCRIT (test code = HCT) 43.8 % 42.0-52.0 N MEAN CELL VOLUME (test code = MCV) 97.8 fL 80-98 N MEAN CELL HGB (test code = MCH) 30.6 picogram 27.0-33.0 N MEAN CELL HGB CONCETRATION (test code = MCHC) 31.3 gram/dL 33.0-36. 0 L RED CELL DISTRIBUTION WIDTH (test code = RDW) 14.1 % 11.6-16. 2 N RED CELL DISTRIBUTION WIDTH SD (test code = RDW-SD) 51.4 fL 37 .0-51.0 H PLATELET COUNT (test code = PLT) 89 K/mm3 150-450 L MEAN PLATELET VOLUME (test code = MPV) 14.0 fL 6.7-11.0 H NEUTROPHIL % (test code = NT%) 73.5 % 39.0-69.0 H IMMATURE GRANULOCYTE % (test code = IG%) 0.6 % 0.0-5.0 N LYMPHOCYTE % (test code = LY%) 17.0 % 25.0-55.0 L MONOCYTE % (test code = MO%) 5.3 % 0.0-10.0 N EOSINOPHIL % (test code = EO%) 2.9 % 0.0-5.0 N BASOPHIL % (test code = BA%) 0.7 % 0.0-1.0 N NUCLEATED RBC % (test code = NRBC%) 0.0 % 0-0 N NEUTROPHIL # (test code = NT#) 5.09 K/mm3 1.8-7.7 N IMMATURE GRANULOCYTE # (test code = IG#) 0.04 x10 3/uL 0-0.03 H LYMPHOCYTE # (test code = LY#) 1.18 K/mm3 1.0-5.0 N MONOCYTE # (test code = MO#) 0.37 K/mm3 0-0.8 N EOSINOPHIL # (test code = EO#) 0.20 K/mm3 0.0-0.5 N BASOPHIL # (test code = BA#) 0.05 K/mm3 0.0-0.2 N NUCLEATED RBC # (test code = NRBC#) 0.00 K/mm3 0.0-0.1 N MANUAL DIFF REQUIRED (test code = MDIFF) NO, ONLY SCAN NEEDED DIFFERENTIAL [id number] 14:01:00* Test Item Value Reference Range Interpretation Comments STAIN ACCEPTABILITY (test code = STN ACCEPTABLE) MORPHOLOGY COMMENT (test code = MOC) PLATELET ESTIMATE (test code = PLTEST) PLATELET MORPHOLOGY (test code = PLTMORPH) CBC W/AUTO [id number] 14:01:00* Test Item Value Reference Range Interpretation Comments WHITE BLOOD CELL (test code = WBC) 6.9 K/mm3 4.5-12.5 N RED BLOOD CELL (test code = RBC) 4.48 mill/mm3 4.0-5.8 N HEMOGLOBIN (test code = HGB) 13.7 gram/dL 13.0-17.5 N HEMATOCRIT (test code = HCT) 43.8 % 42.0-52.0 N MEAN CELL VOLUME (test code = MCV) 97.8 fL 80-98 N MEAN CELL HGB (test code = MCH) 30.6 picogram 27.0-33.0 N MEAN CELL HGB CONCETRATION (test code = MCHC) 31.3 gram/dL 33.0-36. 0 L RED CELL DISTRIBUTION WIDTH (test code = RDW) 14.1 % 11.6-16. 2 N RED CELL DISTRIBUTION WIDTH SD (test code = RDW-SD) 51.4 fL 37 .0-51.0 H PLATELET COUNT (test code = PLT) 89 K/mm3 150-450 L MEAN PLATELET VOLUME (test code = MPV) 14.0 fL 6.7-11.0 H NEUTROPHIL % (test code = NT%) 73.5 % 39.0-69.0 H IMMATURE GRANULOCYTE % (test code = IG%) 0.6 % 0.0-5.0 N LYMPHOCYTE % (test code = LY%) 17.0 % 25.0-55.0 L MONOCYTE % (test code = MO%) 5.3 % 0.0-10.0 N EOSINOPHIL % (test code = EO%) 2.9 % 0.0-5.0 N BASOPHIL % (test code = BA%) 0.7 % 0.0-1.0 N NUCLEATED RBC % (test code = NRBC%) 0.0 % 0-0 N NEUTROPHIL # (test code = NT#) 5.09 K/mm3 1.8-7.7 N IMMATURE GRANULOCYTE # (test code = IG#) 0.04 x10 3/uL 0-0.03 H LYMPHOCYTE # (test code = LY#) 1.18 K/mm3 1.0-5.0 N MONOCYTE # (test code = MO#) 0.37 K/mm3 0-0.8 N EOSINOPHIL # (test code = EO#) 0.20 K/mm3 0.0-0.5 N BASOPHIL # (test code = BA#) 0.05 K/mm3 0.0-0.2 N NUCLEATED RBC # (test code = NRBC#) 0.00 K/mm3 0.0-0.1 N MANUAL DIFF REQUIRED (test code = MDIFF) NO, ONLY SCAN NEEDED DIFFERENTIAL [id number] 14:01:00* Test Item Value Reference Range Interpretation Comments STAIN ACCEPTABILITY (test code = STN ACCEPTABLE) MORPHOLOGY COMMENT (test code = MOC) PLATELET ESTIMATE (test code = PLTEST) PLATELET MORPHOLOGY (test code = PLTMORPH) CBC W/AUTO [id number] 14:00:00* Test Item Value Reference Range Interpretation Comments WHITE BLOOD CELL (test code = WBC) 6.9 K/mm3 4.5-12.5 N RED BLOOD CELL (test code = RBC) 4.48 mill/mm3 4.0-5.8 N HEMOGLOBIN (test code = HGB) 13.7 gram/dL 13.0-17.5 N HEMATOCRIT (test code = HCT) 43.8 % 42.0-52.0 N MEAN CELL VOLUME (test code = MCV) 97.8 fL 80-98 N MEAN CELL HGB (test code = MCH) 30.6 picogram 27.0-33.0 N MEAN CELL HGB CONCETRATION (test code = MCHC) 31.3 gram/dL 33.0-36. 0 L RED CELL DISTRIBUTION WIDTH (test code = RDW) 14.1 % 11.6-16. 2 N RED CELL DISTRIBUTION WIDTH SD (test code = RDW-SD) 51.4 fL 37 .0-51.0 H PLATELET COUNT (test code = PLT) 89 K/mm3 150-450 L MEAN PLATELET VOLUME (test code = MPV) 14.0 fL 6.7-11.0 H NEUTROPHIL % (test code = NT%) 73.5 % 39.0-69.0 H IMMATURE GRANULOCYTE % (test code = IG%) 0.6 % 0.0-5.0 N LYMPHOCYTE % (test code = LY%) 17.0 % 25.0-55.0 L MONOCYTE % (test code = MO%) 5.3 % 0.0-10.0 N EOSINOPHIL % (test code = EO%) 2.9 % 0.0-5.0 N BASOPHIL % (test code = BA%) 0.7 % 0.0-1.0 N NUCLEATED RBC % (test code = NRBC%) 0.0 % 0-0 N NEUTROPHIL # (test code = NT#) 5.09 K/mm3 1.8-7.7 N IMMATURE GRANULOCYTE # (test code = IG#) 0.04 x10 3/uL 0-0.03 H LYMPHOCYTE # (test code = LY#) 1.18 K/mm3 1.0-5.0 N MONOCYTE # (test code = MO#) 0.37 K/mm3 0-0.8 N EOSINOPHIL # (test code = EO#) 0.20 K/mm3 0.0-0.5 N BASOPHIL # (test code = BA#) 0.05 K/mm3 0.0-0.2 N NUCLEATED RBC # (test code = NRBC#) 0.00 K/mm3 0.0-0.1 N MANUAL DIFF REQUIRED (test code = MDIFF) NO, ONLY SCAN NEEDED DIFFERENTIAL [id number] 14:00:00* Test Item Value Reference Range Interpretation Comments STAIN ACCEPTABILITY (test code = STN ACCEPTABLE) CABOT RINGS (test code = CAB) MORPHOLOGY COMMENT (test code = MOC) PLATELET ESTIMATE (test code = PLTEST) PLATELET MORPHOLOGY (test code = PLTMORPH) Triiodothyronine (T3) Free [Mass/volume] in Serum or [id number] 00:00:00* Test Item Value Reference Range Interpretation Comments T3, free (test code = T3, free) 2.8 pg/mL 2.3-4.2 [facility] [Units/volume] (viral load) in Serum or Plasma by Probe and target amplification [id number] 00:00:00* Test Item Value Reference Range Interpretation Comments hepatitis C antibody (test code = hepatitis C antibody) non- reactive non-reactive signal to cut-off (test code = signal to cut-off) 0.04 <1.0 0 [facility]yroperoxidase Ab [Units/volume] in [id number] 00:00:00* Test Item Value Reference Range Interpretation Comments thyroid peroxidase antibodies (test code = thyroid peroxidase an tibodies) <1 <9 [facility]ine (T4) free [Mass/volume] in Serum or Plasma 2018-08-08 00:00:00* Test Item Value Reference Range Interpretation Comments T4, free (test code = T4, free) 1.7 NG/dL 0.8-1.8 [facility] 2000 panel - Serum or Plasma 2018-08-01 00:00:00* Test Item Value Reference Range Interpretation Comments glucose (test code = glucose) 196 mg/dL 65-99 H urea nitrogen (BUN) (test code = urea nitrogen (BUN)) 45 mg/dL 7-25 H creatinine (test code = creatinine) 6.16 mg/dL 0.70-1.33 H eGFR non-afr. macedonian (test code = eGFR non-afr. macedonian) 9 mL/min/1.73m2 > or = 60 L eGFR (test code = eGFR ) 11 mL/min/1.73m2 > or = 60 L BUN/creatinine ratio (test code = BUN/creatinine ratio) 7 (calc) 6-22 sodium (test code = sodium) 141 mmol/L 135-146 potassium (test code = potassium) 4.7 mmol/L 3.5-5.3 chloride (test code = chloride) 98 mmol/L 98-110 carbon dioxide (test code = carbon dioxide) 29 mmol/L 20-32 calcium (test code = calcium) 8.6 mg/dL 8.6-10.3 protein, total (test code = protein, total) 7.0 g/dL 6.1-8.1 albumin (test code = albumin) 4.1 g/dL 3.6-5.1 globulin (test code = globulin) 2.9 g/dL (calc) 1.9-3.7 albumin/globulin ratio (test code = albumin/globulin ratio) 1.4 (calc) 1.0-2.5 bilirubin, total (test code = bilirubin, total) 0.6 mg/dL 0.2-1. 2 alkaline phosphatase (test code = alkaline phosphatase) 131 U/L 40-115 H AST (test code = AST) 23 U/L 10-35 ALT (test code = ALT) 24 U/L 9-46 [facility] 1996 panel - Serum or [id number] 00:00:00* Test Item Value Reference Range Interpretation Comments cholesterol, total (test code = cholesterol, total) 183 mg/dL <2 00 HDL cholesterol (test code = HDL cholesterol) 51 mg/dL >40 triglycerides (test code = triglycerides) 141 mg/dL <150 Cholesterol in LDL [Mass/volume] in Serum or Plasma (t est code = 2089-1) 107 mg/dL (calc) H chol/HDLC ratio (test code = chol/HDLC ratio) 3.6 (calc) <5.0 non HDL cholesterol (test code = non HDL cholesterol) 132 mg/dL (ca lc) <130 H [facility] HospitalHemoglobin A1c/Hemoglobin.total in [id number] 00:00:00* Test Item Value Reference Range Interpretation Comments Hemoglobin A1c/Hemoglobin.total in Blood (test code = 4548-4) 5.7 % of total HGB <5.7 H EAG (mg/dL) (test code = EAG (mg/dL)) 117 (calc) EAG (mmol/L) (test code = EAG (mmol/L)) 6.5 (calc) [facility] Auto Differential panel - [id number] 00:00:00 * Test Item Value Reference Range Interpretation Comments white blood cell count (test code = white blood cell count) 6.8 thousand/uL 3.8-10.8 red blood cell count (test code = red blood cell count) 4.00 million/uL 4.20-5.80 L hemoglobin (test code = hemoglobin) 12.4 g/dL 13.2-17.1 L hematocrit (test code = hematocrit) 37.6 % 38.5-50.0 L MCV (test code = MCV) 94.0 fL 80.0-100.0 MCH (test code = MCH) 31.0 pg 27.0-33.0 MCHC (test code = MCHC) 33.0 g/dL 32.0-36.0 RDW (test code = RDW) 17.5 % 11.0-15.0 H platelet count (test code = platelet count) 88 thousand/uL 140-400 L MPV (test code = MPV) 13.2 fL 7.5-12.5 H absolute neutrophils (test code = absolute neutrophils) 4556 sarah ls/uL 5091-0046 absolute lymphocytes (test code = absolute lymphocytes) 1027 sarah ls/uL 850-3900 absolute monocytes (test code = absolute monocytes) 707 cells/uL 20 0-950 absolute eosinophils (test code = absolute eosinophils) 428 cells/u L 15-500 absolute basophils (test code = absolute basophils) 82 cells/uL 0- 200 neutrophils (test code = neutrophils) 67 % lymphocytes (test code = lymphocytes) 15.1 % monocytes (test code = monocytes) 10.4 % eosinophils (test code = eosinophils) 6.3 % basophils (test code = basophils) 1.2 % [facility] HospitalThyrotropin [Units/volume] in Serum or [id number] 00:00:00* Test Item Value Reference Range Interpretation Comments TSH (test code = TSH) 0.16 mIU/L 0.40-4.50 L [facility] 2000 panel - Serum or Plasma 2018-08-01 00:00:00* Test Item Value Reference Range Interpretation Comments glucose (test code = glucose) 196 mg/dL 65-99 H urea nitrogen (BUN) (test code = urea nitrogen (BUN)) 45 mg/dL 7-25 H creatinine (test code = creatinine) 6.16 mg/dL 0.70-1.33 H eGFR non-afr. macedonian (test code = eGFR non-afr. macedonian) 9 mL/min/1.73m2 > or = 60 L eGFR (test code = eGFR ) 11 mL/min/1.73m2 > or = 60 L BUN/creatinine ratio (test code = BUN/creatinine ratio) 7 (calc) 6-22 sodium (test code = sodium) 141 mmol/L 135-146 potassium (test code = potassium) 4.7 mmol/L 3.5-5.3 chloride (test code = chloride) 98 mmol/L 98-110 carbon dioxide (test code = carbon dioxide) 29 mmol/L 20-32 calcium (test code = calcium) 8.6 mg/dL 8.6-10.3 protein, total (test code = protein, total) 7.0 g/dL 6.1-8.1 albumin (test code = albumin) 4.1 g/dL 3.6-5.1 globulin (test code = globulin) 2.9 g/dL (calc) 1.9-3.7 albumin/globulin ratio (test code = albumin/globulin ratio) 1.4 (calc) 1.0-2.5 bilirubin, total (test code = bilirubin, total) 0.6 mg/dL 0.2-1. 2 alkaline phosphatase (test code = alkaline phosphatase) 131 U/L 40-115 H AST (test code = AST) 23 U/L 10-35 ALT (test code = ALT) 24 U/L 9-46 [facility] 1996 panel - Serum or [id number] 00:00:00* Test Item Value Reference Range Interpretation Comments cholesterol, total (test code = cholesterol, total) 183 mg/dL <2 00 HDL cholesterol (test code = HDL cholesterol) 51 mg/dL >40 triglycerides (test code = triglycerides) 141 mg/dL <150 Cholesterol in LDL [Mass/volume] in Serum or Plasma (t est code = 2089-1) 107 mg/dL (calc) H chol/HDLC ratio (test code = chol/HDLC ratio) 3.6 (calc) <5.0 non HDL cholesterol (test code = non HDL cholesterol) 132 mg/dL (ca lc) <130 H [facility]Hemoglobin A1c/Hemoglobin.total in [id number] 00:00:00* Test Item Value Reference Range Interpretation Comments Hemoglobin A1c/Hemoglobin.total in Blood (test code = 4548-4) 5.7 % of total HGB <5.7 H EAG (mg/dL) (test code = EAG (mg/dL)) 117 (calc) EAG (mmol/L) (test code = EAG (mmol/L)) 6.5 (calc) [facility]CB [facility] Auto Differential panel - [id number] 00:00:00 * Test Item Value Reference Range Interpretation Comments white blood cell count (test code = white blood cell count) 6.8 thousand/uL 3.8-10.8 red blood cell count (test code = red blood cell count) 4.00 million/uL 4.20-5.80 L hemoglobin (test code = hemoglobin) 12.4 g/dL 13.2-17.1 L hematocrit (test code = hematocrit) 37.6 % 38.5-50.0 L MCV (test code = MCV) 94.0 fL 80.0-100.0 MCH (test code = MCH) 31.0 pg 27.0-33.0 MCHC (test code = MCHC) 33.0 g/dL 32.0-36.0 RDW (test code = RDW) 17.5 % 11.0-15.0 H platelet count (test code = platelet count) 88 thousand/uL 140-400 L MPV (test code = MPV) 13.2 fL 7.5-12.5 H absolute neutrophils (test code = absolute neutrophils) 4556 sarah ls/uL 8106-5719 absolute lymphocytes (test code = absolute lymphocytes) 1027 sarah ls/uL 850-3900 absolute monocytes (test code = absolute monocytes) 707 cells/uL 20 0-950 absolute eosinophils (test code = absolute eosinophils) 428 cells/u L 15-500 absolute basophils (test code = absolute basophils) 82 cells/uL 0- 200 neutrophils (test code = neutrophils) 67 % lymphocytes (test code = lymphocytes) 15.1 % monocytes (test code = monocytes) 10.4 % eosinophils (test code = eosinophils) 6.3 % basophils (test code = basophils) 1.2 % [facility] HospitalThyrotropin [Units/volume] in Serum or [id number] 00:00:00* Test Item Value Reference Range Interpretation Comments TSH (test code = TSH) 0.16 mIU/L 0.40-4.50 L [facility]2018-07-08 10:09:00 [place] [address] Patient Name: JOSHUA CACERES MR #: [id number] : 1960 Age/Sex: 57/M Req #: [id number] Adm Physician: Ordered by: AISHA NOVOA MD Report #: [id number] Location: ER Room/Bed: Procedure: [id number] DX/SRIDEVI ST SINGLE (PORTABLE) Exam Date: 07/08/18 Exam Time: 949 REPORT STATUS: Signed EXAM: CHEST SINGLE (PORTABLE), AP Portable DATE: 07/08/2018 Time stamp on exam: 9:40 AM INDICATION: Shortness of breath with dizziness COMPARISON: 06/28/2018 FINDINGS: LINES/TUBES: Tunneled right IJ hemodialysis catheter in appropriate position. LUNGS: Mild pulmonary vascular congestion. PLEURA: Improve ment in the left pleural effusion. Persistent right pleural effusion present. HEART AND MEDIASTINUM: Normal size and contour. BONES AND SOFT TISSUES : No acute findings. IMPRESSION: Mild pulmonary vascular congestion with persistent right pleural effusion and improved left pleural effusion Sign ed by: Dr. Tammi Anderson DO on 07/08/2018 10:11 AM Dictated By: TAMMI SAAB DO 1011 Transcribe d By: LOREE on 07/08/18 1011 COPY TO: AISHA NOVOA MD CHEST 2 [id number] 18:15:00 [place] [address] Patient Name: JOSHUA CACERES MR #: [id number] : 1960 Age/Sex: 57/M Req #: [id number] Adm Physician: DILLAN FAUSTIN MD Ordered by: MESERET MORE MD Report #: [id number] Location: MED/SURG Room/Bed: 112-1 Procedure: [id number] DX/CHEST 2 VIEWS Exam Date: 06/28/18 Exam Time: 1734 REPORT STATUS: Signed EXAMINATION: CHEST 2 VIEWS INDICATION: f/u pleural effusion [id number] COMPARISON: Chest radiograph 06/19/2018 FINDINGS: PA and lat eral views TUBES and LINES: Right IJ central venous catheter with tips ove rlying the right atrium and unchanged. LUNGS: Lungs are well inflated. Subsegmental atelectasis in both lung bases are increased. Mild bilateral ce ntral pulmonary vascular congestion has decreased. PLEURA: Moderate righ t and a small left pleural effusion, increased. No pneumothorax. Small amount of fluid along the minor fissure. HEART AND MEDIASTINUM: The cardiomediast inal silhouette is unremarkable. BONES AND SOFT TISSUES: No acute osseous lesion. Soft tissues are unremarkable. UPPER ABDOMEN: No free air under the diaphragm. IMPRESSION: Worsening bilateral pleural effusions, moder ate on the right and small on the left with increasing bibasilar atelectasis. Signed by: Dr. Erika Dao M.D. on 06/28/2018 6:16 PM Dictated By: ERIKA DAO MD 15 Transcribed By: LOREE on 06/28/181815 C OPY TO: MESERET MORE MD CHEST XRAY POST [id number] 21:08:00 [place] [address] Patient Name: JOSHUA CACERES MR #: [id number] : 1960 Age/Sex: 57/M Req #: [id number] Adm Physician: DILLAN FAUSTIN MD Ordered by: TAMMI ANDERSON eport #: [id number] Location: MED/SURG Room /Bed: [facility] Procedure: [id number] DX/CHEST X RAY POST PROCEDURE Exam Date: Exam Time: REPORT STATUS: Signed EXAMINATION: CHEST XRAY POST PROCEDURE INDICATION: small pneumo apical; follow-u p Y COMPARISON: 06/19/2018 FINDINGS: Stable right internal ju gular dialysis catheter. TUBES and LINES: None. LUNGS: Lungs are well inflated. Central vascular congestion and mild interstitial edema. PLEURA: Small left pleural effusion, decreased from prior exam. No defini te right apical pneumothorax. Mild right apical scarring. HEART AND MEDIA STINUM: The cardiac silhouette is borderline enlarged. BONES AND SOFT TISSUES: No acute osseous lesion. Soft tissues are unremarkable. UPPER ABDOMEN: No free air under the diaphragm. IMPRESSION: Central vascul ar congestion and mild interstitial edema. Small left pleural effusion, decrea sed from prior exam. No definite right apical pneumothorax visualized on curre nt exam. Mild right apical scarring. Signed by: Dr. Heather Wright MD on 06/19/2018 9:13 PM Dictated By: HEATHER WRIGHT MD Electronically Sig sergio By: HEATHER WRIGHT MD on 06/19/182112 Transcribed By: LOREE on 06/19/18 2 113 COPY TO: TAMMI ANDERSON DO IR [id number] 16:40:00 [place] [address] Patient Name: JOSHUA CACERES MR #: [id number] : 1960 Age/Sex: 57/M Req #: [id number] Adm Physician: DILLAN FAUSTIN MD Ordered by: MESERET MORE MD Report #: [id number] Location: MED/SURG Room/Bed: [facility] Procedure: [id number] DX/IR CONS ULT Exam Date: Exam Time: REPORT STATUS: Signed PROCEDURE: ULTRASOUND GUIDED THORA CENTESIS COMPARISON: None. INDICATIONS: Bilateral pleural effusions F INDINGS: After informed consent was obtained, the patient was placed in the sitting position and preliminary ultrasound of the posterior chest identifie d a safe route into the right pleural effusion. The overlying skin was preppe d and draped in usual sterile fashion. Lidocaine 1% was used for local anesth esia. Under ultrasound guidance, a 5 Fr centesis needle was advanced into the pleural fluid and 1750 cc were aspirated. The patient tolerated the pr ocedure well and there were no immediate post-procedural complications. A pos t-thoracentesis chest radiograph will be obtained. CONCLUSION: 1. Ultrasound-guided right thoracentesis with removal of 1750 cc of fluid. 2. Post thoracentesis chest x-ray has been ordered. 3. Specimen was sent to the l aboratory for analysis. Tammi Anderson D.O. Dictated by: Tammi donaldson D.O. on 06/19/2018 at 16:40 Electronically approved by: Tammi saab D.O. on 06/19/2018 at 16:40 Dictated By: TAMMI ANDERSON DO 1640 Transcribed By: Marisol PEREZ on 06/19/18 1640 COPY TO: MESERET MORE MD THORACENTESIS/US [id number] 16:40:00 [place] [address] Patient Name: JOSHUA CACERES MR #: [id number] : 1960 Age/Sex: 57/M Req #: [id number] Adm Physician: DILLAN FAUSTIN MD Ordered by: MESERET MORE MD Report #: [id number] Location: MED/SURG Room/Bed: [facility] Procedure: [id number] US/THORACE NTESIS/US GUIDED Exam Date: Exam Time: REPORT STATUS: Signed PROCEDURE: ULTRASOUND GUIDED THORACENTESIS COMPARISON: None. INDICATIONS: Bilateral pleural effu sions FINDINGS: After informed consent was obtained, the patient was la nena erica in the sitting position and preliminary ultrasound of the posterior chest identified a safe route into the right pleural effusion. The overlying sk in was prepped and draped in usual sterile fashion. Lidocaine 1% was used for local anesthesia. Under ultrasound guidance, a 5 Fr centesis needle was a dvanced into the pleural fluid and 1750 cc were aspirated. The patient tolera roro the procedure well and there were no immediate post-procedural complic ations. A post-thoracentesis chest radiograph will be obtained. CONCLUS ION: 1. Ultrasound-guided right thoracentesis with removal of 1750 cc of fluid. 2. Post thoracentesis chest x-ray has been ordered. 3. Specimen was sent to the laboratory for analysis. Tammi Anderson D.O. Dictated by: Tammi Anderson D.O. on 06/19/2018 at 16:40 Electronically approved b y: Tammi Anderson D.O. on 06/19/2018 at 16:40 Dictated By: DEVEN ANDERSON DO 1640 Faustin scribed By: ANDREW on 06/19/18 1640 COPY TO: MESERET MORE MD US RENAL RETROPERITONEAL [id number] 16:40:00 [place] [address] Patient Name: JOSHUA CACERES MR #: [id number] : 1960 Age/Sex: 57/M Req #: [id number] Adm Physician: DILLAN FAUSTIN MD Ordered by: GERSON ORTIZ MD, MD Report #: [id number] Location: MED/SURG Room/Bed: [facility] Procedure: [id number] US/US ELLIOTT AL RETROPERITONEAL COMP Exam Date: Exam Time: REPORT STATUS: Signed Renal ultrasou nd dated 06/19/2018 at 3:57 PM History: Renal failure Discussion: Trans verse and longitudinal images of the kidneys were obtained. There is no evide nce of hydronephrosis, mass or renal calculus. The right kidney measures 9.2 x 4.1 x 4.2 cm. The right renal cortex measures 1.5 cm. The left kidney measur es 9.4 x 4.9 x 4.2 cm. The left renal cortex measures 1.6 cm. There is normal renal echogenicity. The urinary bladder shows a Echavarria catheter in place. Th ere is no evidence of free fluid. IMPRESSION: Small bilateral kidne ys without evidence of hydronephrosis. Signed by: Dr. Tammi Anderson DO on 06/19/2018 4:42 PM Dictated By: TAMMI ANDERSON DO 41 Transcribed By: LOREE on 06/19/181641 COPY TO: GERSON ORTIZ CHEST XRAY POST [id number] 16:29:00 [place] [address] Patient Name: JOSHUA CACERES MR #: [id number] : 1960 Age/Sex: 57/M Req #: [id number] Adm Physician: DILLAN FAUSTIN MD Ordered by: TAMMI ANDERSON DO R eport #: [id number] Location: MED/SURG Room /Bed: [facility] Procedure: [id number] DX/CHEST X RAY POST PROCEDURE Exam Date: Exam Time: REPORT STATUS: Signed PROCEDURE: CHEST XR AY POST PROCEDURE COMPARISON: [facility], DX, CHEST 2 VIEWS, 06/19, 6:29. INDICATIONS: POST THORACENTESIS FINDINGS: LUNGS: Bibasilar opacities likely secondary to atelectasis. PLEURA: Tiny righ t-sided apical pneumothorax. Significant decrease in the size of the right pl eural effusion. There is a mild-moderate left pleural effusion. HEART MEDIASTINUM: The heart is within normal size-limits. Acceptable position of the tunneled hemodialysis catheter. BONES SOFT TISSUES: No acute f indings. The patient's nurse, Tray Boyd was informed of these findin gs at the time of interpretation. CONCLUSION: 1. Significant d ecrease in size of the right pleural effusion; status post thoracentesis. 2 . Tiny right apical pneumothorax; followup chest x-ray in 4 hours recommended . 3. Bibasilar opacities likely due to atelectasis. Tammi Anderson D.O. Dictated by: Tammi Anderson D.O. on 06/19/2018 at 16:29 Electron ically approved by: Tammi Anderson D.O. on 06/19/2018 at 16:29 Dictated By: TAMMI ANDERSON DO 28 COPY TO: DEVEN ANDERSON DO CHEST 2 [id number] 07:06:00 [facility] [address] [place], [place] [address] Patient Name: JOSHUA CACERES MR #: [id number] : 1960 Age/Sex: 57/M Req #: [id number] Adm Physician: DILLAN FAUSTIN MD Ordered by: MESERET MORE MD Report #: [id number] Location: MED/SURG Room/Bed: [facility] Procedure: [id number] DX/CHEST 2 VIEWS Exam Date: 06/19/18 Exam Time: 0638 REPORT STATUS: Signed EXAMINATION: PA and lateral views of the chest. COMPARISON: CT chest 06/18/2018 CLINICA L HISTORY: Evaluate pleural effusions DISCUSSION: Interval decre ase in now moderate right and small left pleural effusions relative to 06/18/19. Stable position of right IJ tunneled hemodialysis catheter with the tip pr ojecting over the upper right atrium. No new consolidations. No pneumothorax. Cardiomediastinal contour and pulmonary venous congestion are unchanged. No acute osseous abnormalities. IMPRESSION: Decreased pleural effusions relative to CT chest 06/18/2018. Persistent pulmonary venous congestion. Signed by: Dr. Ken Aragon M.D. on 06/19/2018 7:09 AM Dictat ed By: KEN ARAGON MD 8 Transcribed By: LOREE on 06/19/18708 COPY TO: MESERET MORE MD CT CHEST [id number] 18:01:[address] [address] Patient Name: JOSHUA CACERES MR #: [id number] : 1960 Age/Sex: 57/M Req #: [id number] Adm Physician: DILLAN FAUSTIN MD Ordered by: DILLAN FAUSTIN MD Report #: [id number] Location: MED/SURG Room/Bed: [facility] Procedure: [id number] CT/CT CHEST W O Exam Date: Exam Time: REPORT STATUS: Signed EXAM: CT Chest WITHOUT contrast IN DICATION: SOB/PLEURAL EFFUSION COMPARISON: Chest x-ray 06/17/2018. Tunn eled dialysis catheter replacement 06/18/2018. TECHNIQUE: Chest was scan sergio utilizing a multidetector helical scanner from the lung apex through the l evel of the adrenal glands without administration of IV contrast. Absence of i ntravenous contrast decreases sensitivity for detection of lymphadenopathy and vascular pathology. Coronal and sagittal reformations were obtained. Routine protocol was performed. IV CONTRAST: None COMPLICATIONS: None RADIATION DOSE: Total DLP: 644.97 mGy*cm Estimated effective do se: (DLP x 0.014 x size factor) mSv CTDIvol has been reviewed. It is belo w the limits set by the Radiation Protocol Committee (RPC). FI NDINGS: LINES/ TUBES: Right IJ dialysis catheter. LUNGS AND AIRWAYS: Bilateral lower lobe atelectasis. Mild involvement of the lingula and right mi ddle lobe. Airways are normal. PLEURA: A large right and moderate left sim ple pleural effusions. HEART AND MEDIASTINUM: The thyroid gland is normal. No mediastinal, hilar or axillary lymphadenopathy. The heart is normal in si ze. There is no pericardial effusion. There are mild atherosclerotic calcific ations in the aorta and coronary arteries. Mild air in the right atrium. UPPER ABDOMEN: The esophagus and stomach is distended with food products. Ques tionable gallstones. Otherwise, upper abdomen is unremarkable. BONES: The v isualized bony thorax is within normal limits. SOFT TISSUES: Unremarkable. IMPRESSION: 1. Large right and moderate left pleural effusions with asso ciated atelectasis. 2. Esophagus and stomach are distended with food produc ts. 3. Mild air in the right atrium, likely related to recent line placement. Signed by: Dr. Alon Pool M.D. on 06/18/2018 6:25 PM Dictated By: ALON POOL MD 24 Transcribed By: Salina OLIVAREZ on 06/18/181824 COPY TO: DILLAN FAUSTIN MD SPECIAL PROCEDURE IN CATH [id number] 14:38:00 [place] [address] Patient Name: JOSHUA CACERES MR #: [id number] : 1960 Age/Sex: 57/M Req #: [id number] Adm Physician: DILLAN FAUSTIN MD Ordered by: SHELLY HOOPER MD Report #: [id number] Location: MED/SURG Room/Bed: [facility] Procedure: [id number] IR/ SPECIAL PROCEDURE IN CLINICAL PROGRAM CONSULTANT Exam Date: Exam Time: REPORT STATUS: Signed PROCEDUR E: PLACEMENT OF RIGHT IJ TUNNELED HEMODIALYSIS CATHETER WITH ULTRASOUND AND FL UOROSCOPIC GUIDANCE INDICATION: Need for dialysis access. OPERATORS: Liz Orozco MD RADIATION EXPOSURE: Fluoroscopy Time: 0.6 minutes Dos e area product (DAP): 66.5 cGycm2 CONSENT: The patient was informed of the nature of the proposed procedure. The purposes, alternatives, risks, and benefits were explained and discussed. All questions were answered and writte n consent was obtained. ANESTHESIA: Moderate sedation. Continuous hemodynam ic monitoring was performing by interventional nursing MEDICATIONS: 15 cc of 1% subcutaneous lidocaine 50 mcg IV Fentanyl and 1 mg IV Versed per nurs ing administration records. TECHNIQUE: The patient was brought to the a ngiography suite, and the right neck and upper chest were prepped and draped i n standard sterile fashion. All elements of maximal sterile barrier technique were followed including cap and mask, sterile gown, sterile gloves, large ster ile sheet, hand hygiene and 2% chlorhexidine for cutaneous antisepsis. Pre-pr ocedure time-out confirmed the patient identity and the procedure to be perfor med. Ultrasound demonstrated that the right internal jugular was patent an d compressible. Using standard sterile technique, 1 % lidocaine was administer ed subcutaneously for local anesthesia. Under continuous sonographic guidance, the right internal jugular vein was accessed using a 21 G micropuncture needl e. Permanent ultrasound image was stored. The access needle was exchanged for a 5 Fr micropuncture sheath. An 0.035'' Amplatz wire was advanced into the IV C to secure access. The venotomy site was dilated. Appropriate measurements were made using the 7 Fr dilator. Attention was then turned towards the s ubcutaneous tunnel. After administration of 1% lidocaine subcutaneously for l ocal anesthesia, a 16 Fr x 23 cm Hemosplit hemodialysis catheter was tunneled in an antegrade direction from skin exit site to venotomy site. The dilator w as exchanged for the peel-away sheath under direct fluoroscopic visualization. The catheter was then advanced through the peel-away sheath into the superior vena cava. After confirming appropriate position with fluoroscopy the cathet er tip in the proximal right atrium, the peel-away sheath was removed, and bot h lumens aspirated, check flushed, and terminally flushed with 2 cc each of he rena solution (1000 units/cc of heparin). The catheter was secured using 3-0 Ethilon pursestring suture at the catheter exit site and also 3-0 Ethilon s utures at the catheter hub. The venotomy site was closed with subcutaneous Vi cryl suture, Dermabond, and steri-strips. Sterile dressings were applied. The patient tolerated the procedure well. FINDINGS: 1. Patent and co mpressible right IJV accessed with continuous ultrasound guidance. 2. Plac ement of 16 Fr x 23 cm tunneled right IJV hemodialysis catheter. 3. Post-pro cedure intraprocedural chest radiograph showed the catheter tip in the proxima l right atrium, no kinks along course of catheter, and no pneumothorax. Cathet er is ready for use. IMPRESSION: Placement of right IJ tunneled hemodia lysis catheter. Catheter is ready for immediate use. Signed by: Dr. Bronson Orozco MD on 06/18/2018 2:40 PM Dictated By: LIZ OROZCO MD 00 Transcribed By: LOREE on 06/20/181100 COPY TO: SHELLY HOOPER MD IR [id number] 14:38:00 [place] [address] Patient Name: JOSHUA CACERES MR #: [id number] : 1960 Age/Sex: 57/M Req #: [id number] Adm Physician: DILLAN FAUSTIN MD Ordered by: SHELLY HOOPER MD Report #: [id number] Location: MED/SURG Room/Bed: [facility] Procedure: [id number] DX/ IR CONSULT Exam Date: Exam Time: REPORT STATUS: Signed PROCEDURE: PLACEMENT OF RIG HT IJ TUNNELED HEMODIALYSIS CATHETER WITH ULTRASOUND AND FLUOROSCOPIC GUIDANCE INDICATION: Need for dialysis access. OPERATORS: Liz Orozco MD RADIATION EXPOSURE: Fluoroscopy Time: 0.6 minutes Dose area product (DAP ): 66.5 cGycm2 CONSENT: The patient was informed of the nature of the p roposed procedure. The purposes, alternatives, risks, and benefits were expla ined and discussed. All questions were answered and written consent was obtai sergio. ANESTHESIA: Moderate sedation. Continuous hemodynamic monitoring was p erforming by interventional nursing MEDICATIONS: 15 cc of 1% subcutaneo us lidocaine 50 mcg IV Fentanyl and 1 mg IV Versed per nursing administration records. TECHNIQUE: The patient was brought to the angiography suite, a nd the right neck and upper chest were prepped and draped in standard sterile fashion. All elements of maximal sterile barrier technique were followed inclu ding cap and mask, sterile gown, sterile gloves, large sterile sheet, hand hyg iene and 2% chlorhexidine for cutaneous antisepsis. Pre-procedure time-out co nfirmed the patient identity and the procedure to be performed. Ultrasou nd demonstrated that the right internal jugular was patent and compressible. U sing standard sterile technique, 1 % lidocaine was administered subcutaneously for local anesthesia. Under continuous sonographic guidance, the right internal corrosion specialist al jugular vein was accessed using a 21 G micropuncture needle. Permanent ultr asound image was stored. The access needle was exchanged for a 5 Fr micropunct ure sheath. An 0.035'' Amplatz wire was advanced into the IVC to secure acces s. The venotomy site was dilated. Appropriate measurements were made using t he 7 Fr dilator. Attention was then turned towards the subcutaneous tunnel. After administration of 1% lidocaine subcutaneously for local anesthesia, a 16 Fr x 23 cm Hemosplit hemodialysis catheter was tunneled in an antegrade dir ection from skin exit site to venotomy site. The dilator was exchanged for th e peel-away sheath under direct fluoroscopic visualization. The catheter was t hen advanced through the peel-away sheath into the superior vena cava. After confirming appropriate position with fluoroscopy the catheter tip in the pro ximal right atrium, the peel-away sheath was removed, and both lumens aspirate d, check flushed, and terminally flushed with 2 cc each of heparin solution (1 000 units/cc of heparin). The catheter was secured using 3-0 Ethilon pursestr ing suture at the catheter exit site and also 3-0 Ethilon sutures at the swati ter hub. The venotomy site was closed with subcutaneous Vicryl suture, Dermab ond, and steri-strips. Sterile dressings were applied. The patient mars ated the procedure well. FINDINGS: 1. Patent and compressible right IJ V accessed with continuous ultrasound guidance. 2. Placement of 16 Fr x 23 cm tunneled right IJV hemodialysis catheter. 3. Post-procedure intraprocedu ral chest radiograph showed the catheter tip in the proximal right atrium, no kinks along course of catheter, and no pneumothorax. Catheter is ready for use . IMPRESSION: Placement of right IJ tunneled hemodialysis catheter. Cat heter is ready for immediate use. Signed by: Dr. Liz Orozco MD on 019 2:40 PM Dictated By: LIZ OROZCO MD 00 Transcribed By: LOREE on 06/20/181100 COPY TO: SHELLY HOOPER MD CHEST SINGLE (PORTABLE)2018-06-17 20:40:00 [place] [address] Patient Name: JOSHUA CACERES MR #: [id number] : 1960 Age/Sex: 57/M Req #: [id number] Adm Physician: Ordered by: DANYELLE ALVAREZ NP Report #: [id number] Location: ER Room/Bed: Procedure: [id number] DX/[facility] ST SINGLE (PORTABLE) Exam Date: 06/17/18 Exam Time: 2022 REPORT STATUS: Signed EXAMI NATION: CHEST SINGLE (PORTABLE) INDICATION: High blood sugar. COMPARISON: None FINDINGS: AP view TUBES and LINES: None. LUNGS: Lungs are moderately inflated. Bibasilar atelectasis and/or con solidation. There is perihilar interstitial opacities, consistent with interst itial edema. PLEURA: Moderate right and small left pleural effusion. HEART AND MEDIASTINUM: The cardiomediastinal silhouette is unremarkable. BONES AND SOFT TISSUES: No acute osseous lesion. Soft tissues are unremar kable. UPPER ABDOMEN: No free air under the diaphragm. IMPRESSION: Fluid overload with central pulmonary venous congestion and small bilateral pleural effusions, right greater than left. Bibasilar atelectasis and/or con solidation. Signed by: Dr. Alon Pool M.D. on 06/17/2018 8:40 PM Dic tated By: ALON POOL MD 39 Tra nscribed By: LOREE on 06/17/182039 COPY TO: DANYELLE ALVAREZ NP
[2019-09-24] MEDS ORDERED: NALOXONE HCL INJ 0.4 MG/ML AMP ONE (01:10)
[2019-09-24] MEDS ORDERED: NALOXONE HCL INJ 0.4 MG/ML AMP IV ONE (01:15)
[2019-09-24 02:09] LABS: BASOPHILS % 0.3 % (0.0-1.0); EOSINOPHILS # (AUTO) 0.1 (0.0-0.4); EOSINOPHILS % 1.3 % (0.0-6.0); HEMATOCRIT 23.2 % (38.2-49.6); HEMOGLOBIN 7.1 g/dL (14.0-18.0); LYMPHOCYTES # (AUTO) 0.8 (1.0-3.2); LYMPHOCYTES % 7.5 % (18.0-39.1); MEAN CORPUSCULAR HEMOGLOBIN 28.2 pg (28-32); MEAN CORPUSCULAR HGB CONC 30.6 g/dL (31-35); MEAN CORPUSCULAR VOLUME 92.1 fL (81-99); MONOCYTES # (AUTO) 0.6 (0.2-0.8); NEUTROPHILS # (AUTO) 8.8 (2.1-6.9); NEUTROPHILS % 84.4 % (38.7-80.0); PLATELET COUNT 172 x10e3/uL (140-360); RED BLOOD COUNT 2.52 x10e6/uL (4.3-5.7); RED CELL DISTRIBUTION WIDTH 17.8 % (11.7-14.4)
[2019-09-24] MEDS ORDERED: CEFEPIME 2 GM/NS 0.9% 100 ML 100 ML IV ONE (02:15)
[2019-09-24 02:19] LABS: CLARITY,URINE CLOUDY (CLEAR); COLOR,URINE YELLOW (YELLOW)
[2019-09-24 02:20] LABS: BILIRUBIN,URINE NEGATIVE (NEGATIVE); KETONES,URINE NEGATIVE (NEGATIVE); LEUKOCYTE ESTERASE ,URINE 2+ (NEGATIVE); NITRITE,URINE NEGATIVE (NEGATIVE); PROTEIN,URINE DIPSTICK >=300 (NEGATIVE); URINE UROBILINOGEN 0.2 mg/dL (0.2 - 1)
[2019-09-24 02:31] LABS: ALBUMIN 2.4 g/dL (3.5-5.0); ALBUMIN/GLOBULIN RATIO 0.5 (0.8-2.0); ANION GAP 19.8 mmol/L (8-16); CALCIUM 8.1 mg/dL (8.4-10.2); CREATININE, SERUM 5.35 mg/dL (0.72-1.25); POTASSIUM 4.8 mmol/L (3.5-5.1)
[2019-09-24 02:33] LABS: BACTERIA,URINE MANY /HPF; EPITHELIAL CELLS,URINE FEW /LPF; RBC,URINE 21-50 /HPF (0-5); WBC,URINE (MAN) >50 /HPF (0-5)
--- NOTE | 2019-09-24 02:35 | Emergency Department Note ---
History of Present Illnes History of Present Illness Chief Complaint: General Medicine Complaints History of Present Illness This is a 58 year old male WHO PRESENTS VIA EMS FROM [facility] FOR HYPOGLYCEMIA AND AMS, PER EMS MH REPORTS PT WAS HYPOGLYCEMIC AND GIVEN GLUCAGON, WHEN EMS SHOWED UP FSBS WAS 107, AN ARRIVAL TO ER FSBS 149, PT IS STILL ALTERED ON ARRIVAL, PT HAS H/ DM, ESRD ON DIALYSIS . Historian: Cell Operator/EMS Arrival Mode: [place] History limited by: condition of the patient Onset (how long ago): unknown Location: NONE Quality: AMS Severity: unable to specify Onset quality: unable to specify Timing of current episode: constant Progression: unchanged Chronicity: recurrent Context: other (UNKNOWN) Treatments prior to arrival: other (250 CC D5 NS BY EMS) Past Medical/Family History Physician Review I have reviewed the patient's past medical and family history. Any updates have been documented here. Past Medical History Recent Fever: No Clinical Suspicion of Infectio: No New/Unexplained Change in Ment: No Past Medical History: Hypertension, Diabetes, ESRD Other Medical History: PT UNABLE TO GIVE HX Past Surgical History: None Other Surgery: lt arm fistula Social History Smoking Cessation: Never Smoker Counseling Performed: No Alcohol Use: None Any Illegal Drug Use: No TB Exposure/Symptoms: No Physically hurt or threatened: No Family History Family history of heart diseas: No Other Last Tetanus: UNKNOWN Any Pre-Existing Lines (PICC,: No Is patient up to date on immun: Yes Last Flu: up to date Last Pneumovax: up to date Review of Systems ROS Narrative Unable to obtain ROS: Unable to obtain due to, altered mental status Review of Systems Review of other systems All other systems reviewed and negative. Physical Exam Related Data Allergies: Coded Allergies: No Known Allergies (Unverified , 08/18/19) Triage Vital Signs Vital Signs Date Time Temp Pulse Resp B/P (MAP) Pulse Ox O2 Delivery O2 Flow Rate FiO2 09/24/19 01:16 89.9 66 15 106/66 100 Vital signs reviewed: Yes Physical Exam CONSTITUTIONAL Constitutional: other (UNRESPONSIVE, MOAN TO PAINFUL STIMULI) HENT HENT: normocephalic, atraumatic, oropharynx clear/moist, nose normal HENT L/R: left ext ear normal, right ext ear normal EYES Eyes: PERRL, conjunctivae normal NECK Neck: ROM normal PULMONARY Pulmonary: effort normal, breath sounds normal CARDIOVASCULAR Cardiovascular: regular rhythm, heart sounds normal, capillary refill normal, normal rate GASTROINTESTINAL Abdominal: soft, nontender, bowel sounds normal GENITOURINARY Genitourinary: exam deferred SKIN Skin: warm, dry MUSCULOSKELETAL Musculoskeletal: ROM normal NEUROLOGICAL Neurological: other (ONLY MOANS TO PAINFUL STIMULI) PSYCHOLOGICAL Psychological: other (ONLY MOANS TO PAINFUL STIMULI) Results Laboratory Result Diagram: 09/24/19 0111 Laboratory Laboratory Tests Test 09/24/19 01:54 09/24/19 01:11 Bedside Glucose 165 mg/dL (70-120) White Blood Count 10.38 x10e3/uL (4.8-10.8) Red Blood Count 2.52 x10e6/uL (4.3-5.7) Hemoglobin 7.1 g/dL (14.0-18.0) Hematocrit 23.2 % (38.2-49.6) Mean Corpuscular Volume 92.1 fL (81-99) Mean Corpuscular Hemoglobin 28.2 pg (28-32) Mean Corpuscular Hemoglobin Concent 30.6 g/dL (31-35) Red Cell Distribution Width 17.8 % (11.7-14.4) Platelet Count 172 x10e3/uL (140-360) Neutrophils (%) (Auto) 84.4 % (38.7-80.0) Lymphocytes (%) (Auto) 7.5 % (18.0-39.1) Monocytes (%) (Auto) 6.0 % (4.4-11.3) Eosinophils (%) (Auto) 1.3 % (0.0-6.0) Basophils (%) (Auto) 0.3 % (0.0-1.0) Neutrophils # (Auto) 8.8 (2.1-6.9) Lymphocytes # (Auto) 0.8 (1.0-3.2) Monocytes # (Auto) 0.6 (0.2-0.8) Eosinophils # (Auto) 0.1 (0.0-0.4) Basophils # (Auto) 0.0 (0.0-0.1) Absolute Immature Granulocyte (auto 0.05 x10e3/uL (0-0.1) Urine Color Yellow (YELLOW) Urine Clarity Cloudy (CLEAR) Urine pH 7.5 (5 - 7) Urine Specific [place] 1.025 (1.010-1.025) Urine Protein >=300 (NEGATIVE) Urine Glucose (UA) 1+ (NEGATIVE) Urine Ketones Negative (NEGATIVE) Urine Blood 2+ (NEGATIVE) Urine Nitrite Negative (NEGATIVE) Urine Bilirubin Negative (NEGATIVE) Urine Urobilinogen 0.2 mg/dL (0.2 - 1) Urine Leukocyte Esterase 2+ (NEGATIVE) Urine RBC 21-50 /HPF (0-5) Urine WBC >50 /HPF (0-5) Urine Epithelial Cells Few /LPF (NONE) Urine Bacteria Many /HPF (NONE) Sodium Level 138 mmol/L (136-145) Potassium Level 4.8 mmol/L (3.5-5.1) Chloride Level 101 mmol/L (98-107) Carbon Dioxide Level 22 mmol/L (22-29) Anion Gap 19.8 mmol/L (8-16) Blood Urea Nitrogen 56 mg/dL (7-26) Creatinine 5.35 mg/dL (0.72-1.25) Estimat Glomerular Filtration Rate 11 ML/MIN (60-) BUN/Creatinine Ratio 10 (6-25) Glucose Level 143 mg/dL (74-118) Lactic Acid Level 1.4 mmol/L (0.5-2.0) Calcium Level 8.1 mg/dL (8.4-10.2) Total Bilirubin 0.5 mg/dL (0.2-1.2) Aspartate Amino Transf (AST/SGOT) 16 IU/L (5-34) Alanine Aminotransferase (ALT/SGPT) 15 IU/L (0-55) Alkaline Phosphatase 115 IU/L (40-150) Ammonia 33 UG/DL (31-123) Creatine Kinase 69 IU/L (30-200) Creatine Kinase MB 4.30 ng/mL (0-5.0) Troponin I 0.082 ng/mL (0-0.300) Total Protein 6.9 g/dL (6.5-8.1) Albumin 2.4 g/dL (3.5-5.0) Globulin 4.5 g/dL (2.3-3.5) Albumin/Globulin Ratio 0.5 (0.8-2.0) Laboratory Tests Test 09/24/19 01:11 White Blood Count 10.38 x10e3/uL (4.8-10.8) Red Blood Count 2.52 x10e6/uL (4.3-5.7) Hemoglobin 7.1 g/dL (14.0-18.0) Hematocrit 23.2 % (38.2-49.6) Mean Corpuscular Volume 92.1 fL (81-99) Mean Corpuscular Hemoglobin 28.2 pg (28-32) Mean Corpuscular Hemoglobin Concent 30.6 g/dL (31-35) Red Cell Distribution Width 17.8 % (11.7-14.4) Platelet Count 172 x10e3/uL (140-360) Neutrophils (%) (Auto) 84.4 % (38.7-80.0) Lymphocytes (%) (Auto) 7.5 % (18.0-39.1) Monocytes (%) (Auto) 6.0 % (4.4-11.3) Eosinophils (%) (Auto) 1.3 % (0.0-6.0) Basophils (%) (Auto) 0.3 % (0.0-1.0) Neutrophils # (Auto) 8.8 (2.1-6.9) Lymphocytes # (Auto) 0.8 (1.0-3.2) Monocytes # (Auto) 0.6 (0.2-0.8) Eosinophils # (Auto) 0.1 (0.0-0.4) Basophils # (Auto) 0.0 (0.0-0.1) Absolute Immature Granulocyte (auto 0.05 x10e3/uL (0-0.1) Urine Color Yellow (YELLOW) Urine Clarity Cloudy (CLEAR) Urine pH 7.5 (5 - 7) Urine Specific [place] 1.025 (1.010-1.025) Urine Protein >=300 (NEGATIVE) Urine Glucose (UA) 1+ (NEGATIVE) Urine Ketones Negative (NEGATIVE) Urine Blood 2+ (NEGATIVE) Urine Nitrite Negative (NEGATIVE) Urine Bilirubin Negative (NEGATIVE) Urine Urobilinogen 0.2 mg/dL (0.2 - 1) Urine Leukocyte Esterase 2+ (NEGATIVE) Lactic Acid Level 1.4 mmol/L (0.5-2.0) Ammonia 33 UG/DL (31-123) Lab results reviewed: Yes Imaging Imaging results reviewed: Yes Impressions EXAMINATION: Head CT HISTORY: AMS, low blood sugar COMPARISON: Head CT 08/16/2019. TECHNIQUE: Helical axial images of the head were obtained. Reformatted coronal and sagittal images from the axial data. Dose modulation, iterative reconstruction, and/or weight based adjustment of the mA/kV was utilized to reduce the radiation dose to as low as reasonably achievable. Image quality: Motion/streaking artifact limits the evaluation of the skull base and posterior cranial fossa. FINDINGS: Parenchyma: 1. A few scattered hypodensities in the supratentorial white matter are nonspecific but are most compatible with chronic microvascular ischemic changes. Chronic lacunar infarcts present in the bilateral thalami,, centered in the left llanos radiata extends to the body of the caudate nucleus and superior margin of the left lentiform nucleus and in near the junction of the right llanos radiata and anterior limb of the right internal capsule. 2. No mass or hemorrhage. No CT evidence of acute territorial vascular insult. Extra-axial spaces:No abnormal density. No extra-axial fluid collections Brain volume: Mild generalized volume loss. Ventricles: No hydrocephalus or displacement. Arteries: No density suggestive of thrombus. Dural sinuses: No abnormal density. Foramen magnum: No mass, Chiari malformation, or basilar invagination. Sella: No obvious mass. Paranasal/mastoid sinuses: Imaged portions unremarkable. Skull/Scalp: No lytic or blastic lesions. No fractures. Incidental findings: Bilateral intraocular lens replacements. Atherosclerotic calcifications in the carotid siphons and intradural vertebral arteries. IMPRESSION: 1. No acute intracranial abnormalities. 2. Mild generalized parenchymal volume loss. 3. Mild chronic microvascular ischemic changes and chronic lacunar infarcts as described. Signed by: Dr. Bibiana Ward M.D. on 09/24/2019 2:40 AM Imaging Comments I SPOKE WITH DR RUSH ABOUT CXR AND IS STABLE FROM PREVIOUS CXR, NO NEW FINDINGS Procedures 12 Lead ECG Interpretation Management Development Specialist: Interpreted by ED physician Rhythm: sinus bradycardia Rate: bradycardia BPM: 56 QRS axis: normal Conduction: 1st degree ST segments normal: Yes T waves normal: Yes Other findings: prolonged QTc interval Clinical Impression: abnormal ECG Critical Care Time Subsequent provider I assumed direction of critical care for this patient from another provider of my specialty. Assessment & Plan Assessment & Plan Final Impression: (1) ESRF (end stage renal failure) (2) Anemia (3) Hypoglycemia (4) Hypothermia (5) Pleural effusion (6) UTI (urinary tract infection) (7) AMS (altered mental status) Assessment & Plan PT WITH AMS AFTER BEING FOUND WITH [facility]EMIA [facility]. 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 ORDERED CEFEPIME 2 GRAMS IV ORDERED I SPOKE WITH DR VAIL, DR JAIMES, ADMIT TO ICU DR ANGEL VERDUGO FOR ESRD AND DIALYSIS MANAGEMENT Depart Disposition: ADMITTED Last Vital Signs Date Time Temp Pulse Resp B/P (MAP) Pulse Ox O2 Delivery O2 Flow Rate FiO2 09/24/19 02:21 89.9 53 19 109/71 98 Home Meds Reported Medications Tramadol Hcl* (ULTRAM 50MG*) 50 Mg Tab, 50 MG PO Q8H PRN for MODERATE PAIN (4- 6), TAB 08/12/19 Tizanidine Hcl (TIZANIDINE HCL) 4 Mg Tablet, 4 MG PO HS, TAB 08/12/19 Nifedipine (PROCARDIA XL) 30 Mg Tab.er.24, 30 MG PO BID, #30 TAB 08/12/19 Metoprolol Succinate (METOPROLOL SUCCINATE) 50 Mg Tab.er.24h, 50 MG PO DAILY, MG 08/12/19 Megestrol Acetate (MEGESTROL ACETATE) 400 Mg/10 Ml Oral.susp, 400 MG PO DAILY, EA 08/12/19 Losartan Potassium (LOSARTAN POTASSIUM) 100 Mg Tablet, 100 MG PO DAILY, TAB 08/12/19 [Lidocaine Patch] No Conflict Check, 4 % TOP DAILY 08/12/19 Clonidine Hcl (CLONIDINE HCL) 0.1 Mg Tablet, 1 TAB PO TID, #60 TAB 08/12/19 Acetaminophen With Codeine (TYLENOL WITH CODEINE #3 TABLET) 1 Each Tablet, 300 MG PO Q6H PRN for MODERATE PAIN (4-6), TAB 08/12/19 Medications in the ED Naloxone HCl 0.4 mg ONCE ONCE IV ; Start 09/24/19 at 01:15; Stop 09/24/19 at 01:16; Status DC Naloxone HCl 0.4 mg STK-MED ONCE .ROUTE ; Start 09/24/19 at 01:10; Stop 09/24/19 at 01:05; Status DC Cefepime HCl 100 ml @ 200 mls/hr ONCE ONCE IV ; Start 09/24/19 at 02:15; Stop 09/24/19 at 02:44 SHELLY HOOPER MD September 24, 2019 02:35
[2019-09-24 02:38] LABS: CREATINE KINASE MB 4.3 ng/mL (0-5.0)
--- NOTE | 2019-09-24 02:43 | Diagnostic Imaging Report ---
EXAMINATION: Head CT HISTORY: AMS, low blood sugar COMPARISON: Head CT 08/16/2019. TECHNIQUE: Helical axial images of the head were obtained. Reformatted coronal and sagittal images from the axial data. Dose modulation, iterative reconstruction, and/or weight based adjustment of the mA/kV was utilized to reduce the radiation dose to as low as reasonably achievable. Image quality: Motion/streaking artifact limits the evaluation of the skull base and posterior cranial fossa. FINDINGS: Parenchyma: 1. A few scattered hypodensities in the supratentorial white matter are nonspecific but are most compatible with chronic microvascular ischemic changes. Chronic lacunar infarcts present in the bilateral thalami,, centered in the left llanos radiata extends to the body of the caudate nucleus and superior margin of the left lentiform nucleus and in near the junction of the right llanos radiata and anterior limb of the right internal capsule. 2. No mass or hemorrhage. No CT evidence of acute territorial vascular insult. Extra-axial spaces:No abnormal density. No extra-axial fluid collections Brain volume: Mild generalized volume loss. Ventricles: No hydrocephalus or displacement. Arteries: No density suggestive of thrombus. Dural sinuses: No abnormal density. Foramen magnum: No mass, Chiari malformation, or basilar invagination. Sella: No obvious mass. Paranasal/mastoid sinuses: Imaged portions unremarkable. Skull/Scalp: No lytic or blastic lesions. No fractures. Incidental findings: Bilateral intraocular lens replacements. Atherosclerotic calcifications in the carotid siphons and intradural vertebral arteries. IMPRESSION: 1. No acute intracranial abnormalities. 2. Mild generalized parenchymal volume loss. 3. Mild chronic microvascular ischemic changes and chronic lacunar infarcts as described. Signed by: Dr. Bibiana Ward M.D. on 09/24/2019 2:40 AM
--- NOTE | 2019-09-24 03:42 | Diagnostic Imaging Report ---
EXAMINATION: CHEST SINGLE (PORTABLE) INDICATION: Altered mental status COMPARISON: Chest x-ray 08/18/2019 FINDINGS: TUBES and LINES: None. LUNGS/PLEURA: Normal lung volumes. Bibasilar haziness with obscured hemidiaphragms. Right lower lung haziness. Bronchial cuffing. HEART AND MEDIASTINUM: Cardiac size is mildly enlarged. BONES AND SOFT TISSUES: No acute osseous lesion. Soft tissues are unremarkable. Skinfolds project over the left chest. UPPER ABDOMEN: No free air under the diaphragm. IMPRESSION: Mild cardiomegaly and small bilateral pleural effusions, right greater than left, with probable mild interstitial edema. Signed by: Elvis Wood DO on 09/24/2019 3:39 AM
--- OUTSIDE RECORDS SUMMARY | 2019-09-24 03:42 | XMS REPORT ---
Author Author [facility] t Organization [facility] t Address [address] [place] [address] Phone Unavailable Support Name Relationship Address Phone NO, FAMILY Caregiver Unknown Unavailable NO, PCP Caregiver Unknown Unavailable PHUC NARAYAN, Orlando BAH Caregiver [address] [place] [address] Unavailable ROXIE NARAYAN, DILLAN Caregiver [address] [place], [place] [phone] DILLAN FAUSTIN MD Caregiver [address] [place], [place] [address] KAI CAPPS Next Of Kin [address] [place] [address] REFUGIO NARAYAN, TING Caregiver [address] [facility] [address] [place], [place] [phone] SOMMER NARAYAN, Escobar LEONARD Caregiver [address] [place] [address] Unavailable DAISY NARAYAN, Rubi GONZALEZ Caregiver [address] [place] [address] Unavailable DILLAN NARAYAN, WILNER Caregiver [address] [place] [address] Unavailable ORQUIDEA NARAYAN, HUNTER Caregiver [address] [place], [place] [phone] DAISY Youngblood, A RENEA Caregiver [address] [place] [address] SAGE NARAYAN, [place] WEST Caregiver [address] [address] [place], [place] [phone] PHUC NARAYAN, [place] BAH Caregiver [address] [place], [place] [phone] SOUMYA VEGA DO Caregiver [address] [place], [place] [phone] RADHA NARAYAN, Rodney FERGUSON Caregiver [address] [place], [place] [phone] GENNA NARAYAN, SUNG Caregiver [address] [place] [address] RUFUS NARAYAN, Vik BRAVO Caregiver [address] [facility] [address] [place], [place] [phone] Care Team Providers Care Metal Moulder'S Assistant Name Role Phone SUNG VAIL MD PCP Vik HOOPER Attphys Unavailable SUNG VAIL Attphys Unavailable [place] CAZARESCHING Attphys Unavailable KOUSSAYER, TAREK Attphys Unavailable JOSE M GRIMALDOVE Attphys Unavailable MANEEVESE, V AISHA Attphys Unavailable ROXIE DILLAN Attphys Unavailable VAIL, SUNG Admphys Unavailable [place] CAZARES YICHING Admphys Unavailable DILLAN, WILNER Admphys Unavailable FAUSTIN, DILLAN Admphys Unavailable Payers Payer Name Policy Type Policy Number Effective Date Expiration Date S deuce [facility] Star Plus [id number] 2018 00:00:00 [facility] [id number] 2018 00:00:00 [facility] Star Plus [id number] 2018 00:00:00 [facility] Medicare A & B [id number] 2018 00:00:00 [facility] Star Plus [id number] 2018 00:00:00 [facility] Medicare A & B [id number] 2018 00:00:00 [facility] Star Plus [id number] 2018 00:00:00 [facility] Medicare A & B [id number] 2018 00:00:00 [facility] Star Plus [id number] 2018 00:00:00 [facility] Medicare A & B [id number] 2018 00:00:00 [facility] [id number] 2018 00:00: 00 [facility] [id number] 2018 00:00: 00 [facility] [id number] 2018 00:00: 00 [facility] Problems Condition Name Condition Details Condition Category Status Onset Date Resolution Date Last Treatment Date Treating Clinician Comments Source End-stage renal disease ESRF (end stage renal failure) Problem Active [facility] Pulmonary edema Pulmonary edema Problem Active [facility] Anemia Anemia Problem Active [facility] End stage renal failure on dialysis ESRD (end stage renal di sease) on dialysis Problem Active [facility] Pleural effusion Pleural effusion Problem Active [facility] Pneumonia Pneumonia Problem Active [facility] Hypertensive urgency Hypertensive urgency Problem Active [facility] FEVER, UNSPECIFIED Problem Active [facility] Malignant hypertensive urgency Hypertensive urgency, malignant Proble m Active [facility] Hypervolemia Volume overload Problem Active [facility] Allergies, Adverse Reactions, Alerts This patient has no known allergies or adverse reactions. Medications Ordered Medication Name Filled Medication Name Start Date Stop Da te Current Medication? 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 25 As Needed as needed for Bp Support Dur ing Dialysis [facility] Nifedipine (Nifedipine Er) 30 Mg Tab.er.24, 30 Mg Oral Nifedipine (Nifedipine Er) 30 Mg Tab.er.24, 30 Mg Oral 2019-06-04 00:00:00 2019-08-12 00:00:00 No Ambar Cabral [employer]erm[employer] Welder 30 Bedtime [facility] Sucralfate (Carafate) 1 Gm Tablet, 1 Gm Oral Sucralfat e (Carafate) 1 Gm Tablet, 1 Gm Oral 2019-06-04 00:00:2019-08-12 00:00:00 No Ambar Cabral [employer]ilermaker Welder 1 Before Meals And At Bedtime [facility] Ciprofloxacin Hcl (Cipro) 500 Mg Tablet, 250 Mg Oral C iprofloxacin Hcl (Cipro) 500 Mg Tablet, 250 Mg Oral 2018-10-02 00:00:2019-06-04 00:00:00 No Wilner Grimalod Md 250 Every 12 Hours [facility] Doxazosin Mesylate (Cardura) 8 Mg Tablet, 8 Mg Oral Do xazosin Mesylate (Cardura) 8 Mg Tablet, 8 Mg Oral 2018-07-14 00:00:00 2019-06-04 00:00:00 No E rin M Elmo [employer]erm[employer] Welder 8 Twice A Day [facility] Folic Acid 1 Mg Tablet, 1 Mg Oral Folic Acid 1 Mg Tablet, 1 Mg Oral 2018-07-11 00:00:2019-08-12 00:00:00 No Yaneli M Elmo [employer]ilermaker Welder 1 Daily [facility] Hydralazine Hcl 25 Mg Tab, 25 Mg Oral Hydralazine Hcl 25 Mg Tab, 25 Mg Oral 2018-07-11 00:00:00 2019-06-04 00:00:00 No Yaneli M Newport [employer]ilermaker Welder 25 Twice A Day [facility] Losartan Potassium (Cozaar) 100 Mg Tablet, 50 Mg Oral Losartan Potassium (Cozaar) 100 Mg Tablet, 50 Mg Oral 2018-07-11 00:00:00 2019-06-04 00:00:00 No Yaneli M Newport Boilermaker Welder 50 Twice A Day [facility] Metoprolol Tartrate (Lopressor) 25 Mg Tab, 25 Mg Oral Metoprolol Tartrate (Lopressor) 25 Mg Tab, 25 Mg Oral 2018-07-11 00:00:00 2019-06-04 00:00:00 No Yaneli M Elmo [employer]ilerm[employer] Welder 25 Every 12 Hours [facility] Nifedipine (Nifedipine Er) 30 Mg Tab.er.24, 60 Mg Oral Nifedipine (Nifedipine Er) 30 Mg Tab.er.24, 60 Mg Oral 2018-07-11 00:00:00 2019-06-04 00:00:00 No Yaneli Borrego [employer]ilermaker Welder 60 Bedtime [facility] Acetaminophen With Codeine (Tylenol With Codeine #3 Ta blet) 1 Each Tablet Acetaminophen With Codeine (Tylenol With Codeine #3 Tablet) 1 Each Tablet Yes 300 Every 6 Hours as needed for Moderate Rai n (4-6) [facility] Clonidine Hcl 0.1 Mg Tablet Clonidine Hcl 0.1 Mg Tablet Yes 1 Three Times A Day [facility] Lidocaine Patch Lidocaine Patch Yes 4 Daily [facility] Losartan Potassium 100 Mg Tablet Losartan Potassium 100 Mg Tablet Yes 100 Daily [facility] Megestrol Acetate 400 Mg/10 Ml Oral.susp Megestrol Demetrius kline 400 Mg/10 Ml Oral.susp Yes 400 Daily [facility] Metoprolol Succinate 50 Mg Tab.er.24h Metoprolol Succinate 50 Mg Ta b.er.24h Yes 50 Daily [facility] Nifedipine (Procardia Xl) 30 Mg Tab.er.24 Nifedipine ( Procardia Xl) 30 Mg Tab.er.24 Yes 30 Twice A Day [facility] Tizanidine Hcl 4 Mg Tablet Tizanidine Hcl 4 Mg Tablet Yes 4 Bedtime [facility] Tramadol Hcl (Ultram 50MG*) 50 Mg Tab Tramadol Hcl (Ultram 50MG*) 5 0 Mg Tab Yes 50 Every 8 Hours as needed for Moderate Rai n (4-6) [facility] Calcium Acetate 667 Mg Capsule, 667 Mg Oral Calcium Ac etate 667 Mg Capsule, 667 Mg Oral 2019-08-12 00:00:00 No 667 Three Times A Da y [facility] Rosuvastatin Calcium (Crestor) 5 Mg Tablet, 5 Mg Oral Rosuvastatin Calcium (Crestor) 5 Mg Tablet, 5 Mg Oral 2019-08-12 00:00:00 No 5 Twice A Day [facility] Sodium Bicarbonate 650 Mg Tablet, 650 Mg Oral Sodium B icarbonate 650 Mg Tablet, 650 Mg Oral 2019-08-12 00:00:00 No 650 Twice A Day [facility] Furosemide (Lasix) 40 Mg Tablet, 40 Mg Oral Furosemide (Lasix) 40 Mg Tablet, 40 Mg Oral 2019-06-04 00:00:00 No 40 Daily [facility] Minoxidil 10 Mg Tablet, 10 Mg Oral Minoxidil 10 Mg Tablet, 10 Mg Oral 2019-06-04 00:00:00 No 10 Daily [facility] Lisinopril 10 Mg Tablet, 10 Mg Oral Lisinopril 10 Mg Tablet, 10 Mg Oral 2018-07-11 00:00:00 No 10 Daily [facility] Metoprolol Tartrate (Lopressor) 25 Mg Tab, 100 Mg Oral Metoprolol Tartrate (Lopressor) 25 Mg Tab, 100 Mg Oral 2018-07-11 00:00:00 No 100 Twice A Day [facility] Nifedipine (Procardia Xl) 60 Mg Tab.er.24, 60 Mg Oral Nifedipine (Procardia Xl) 60 Mg Tab.er.24, 60 Mg Oral 2018-07-11 00:00:00 No 60 Daily [facility] Procedures Procedure Date / Time Performed Performing Clinician [facility] anna Computed tomography of brain without radiopaque contrast 202 00:00:00 GERMAIN ARNETT [facility] Computed tomography of brain without radiopaque contrast 202 00:00:00 SHELLY HOOPER [facility] Thoracentesis with ultrasound guidance 2019-07-28 00:00:00 MARILIN PELAEZ [facility] DRAINAGE OF LEFT PLEURAL CAVITY, PERCUTANEOUS APPROACH 07-27 00:00:00 KEVIN BANDA [facility] PERFORMANCE OF URINARY FILTRATION, <6 HRS/DAY 2019-07-25 00:00:0 0 KIMANI MENON [facility] TRANSFUSE NONAUT RED BLOOD CELLS IN CENTRAL VEIN, PERC 07-10 00:00:00 VAHID ORTIZ [facility] EXCISION OF STOMACH, PYLORUS, ENDO, DIAGN 2019-07-09 00:00:00 SHAGUFTA MAN REGGIE [facility] EXTRACTION OF ESOPHAGUS, ENDO, DIAGN 2019-07-09 00:00:00 [facility] OF [facility]INARY FILTRATION, <6 HRS/DAY 2019-07-07 00:00:0 0 [facility] PERFORMANCE OF URINARY FILTRATION, <6 HRS/DAY 2019-06-04 00:00:0 0 [facility] PERFORMANCE OF URINARY FILTRATION, <6 HRS/DAY 2019-06-02 00:00:0 0 [facility] X-ray of chest, two views 2019-06-01 00:00:00 KEN SCOTT [facility] PERFORMANCE OF URINARY FILTRATION, <6 HRS/DAY 2019-05-30 00:00:0 0 [facility] PERFORMANCE OF URINARY FILTRATION, <6 HRS/DAY 2019-05-28 00:00:0 0 [facility] Computed tomography of chest without contrast 2019-05-26 00: 00:00 OZZY [facility] PERFORMANCE OF URINARY FILTRATION, <6 HRS/DAY 2019-05-26 00:00:0 0 [facility] PERFORMANCE OF URINARY FILTRATION, <6 HRS/DAY 2019-05-23 00:00:0 0 [facility] X-ray of chest, two views 2019-05-22 00:00:00 MARILIN JUAN [facility] PERFORMANCE OF URINARY FILTRATION, <6 HRS/DAY 2019-05-21 00:00:0 0 [facility] X-ray of chest, two views 2019-05-20 00:00:00 KEN SCOTT CH [facility] Ultrasound guidance for vascular access 2019-05-20 00:00[facility] INSERTION OF INFUSION DEV INTO SUP VENA CAVA, PERC APPROACH 2019-05-20 00:00:00 SOLO [facility] ULTRASONOGRAPHY OF SUPERIOR VENA CAVA, GUIDANCE 2019-05-20 00:00 :00 SOLO [facility] PERFORMANCE OF URINARY FILTRATION, <6 HRS/DAY 2019-05-20 00:00[facility] R [facility]OT SUBCU/FASCIA, OPEN APPROACH 2019-05-18 00:00: 00 MOLINA BRADY [facility] EXCISION OF RIGHT PLEURA, ENDO, DIAGN 2019-05-15 00:00:00 DRAKE [facility] DRAINAGE OF RIGHT PLEURA WITH DRAINAGE DEVICE, ENDO 00:00:00 [facility] RELEASE RIGHT LUNG, OPEN APPROACH 2019-05-15 00:00:00 LETSOSaranya [facility] PERFORMANCE OF URINARY FILTRATION, <6 HRS/DAY 2019-05-14 00:00:0 0 [facility] Thoracentesis with ultrasound guidance 2019-05-12 00:00:00 [facility] Computed tomography of chest without contrast 2019-05-12 00: 00:00 EDIN JAIMES [facility] PERFORMANCE OF URINARY FILTRATION, <6 HRS/DAY 2019-05-12 00:00:0 [address] [facility] CT of abdomen and pelvis without contrast 2019-05-11 00:00:00 REGGIE MAJANO [facility] Thoracentesis with ultrasound guidance 2019-05-09 00:00:00 NIURKA FRIEND [facility] X-ray of chest, single view 2019-05-09 00:00:00 BRETT CAZARES [facility] DRAINAGE OF R PLEURAL CAV WITH DRAIN DEV, PERC APPROACH 2019 00:00[facility]OM[facility], ENDO, DIAGN 2019-05-09 00:00:00 BRENTON VAIL [facility] EXCISION OF STOMACH, PYLORUS, ENDO, DIAGN 2019-05-09 00:00:00 EAGLE REGGIE MAN [facility] PERFORMANCE OF URINARY FILTRATION, <6 HRS/DAY 2019-05-08 00:00:0 0 VAHID ORTIZ [facility] TRANSFUSE NONAUT RED BLOOD CELLS IN PERIPH VEIN, PERC 05-08 00:00:00 NIURKA FRIEND [facility] X-ray of chest, two views 2019-05-07 00:00:00 KOOSHAREMNIURKA I [facility] X-ray of chest, single view 2019-03-24 00:00:00 HUNTER HEARD [facility] Encounters Start Date/Time End Date/Time Encounter Type Admission Type [facility] Care Department Encounter ID Source 2019-08-13 00:11:00 2019-08-20 17:37:00 [facility] [id number] [facility] 2019-07-26 11:58:00 2019-07-29 14:01:00 Discharged Inpatient 1 GENNA [facility] [id number] [facility] 2019-07-06 15:53:00 2019-07-14 19:04:00 Discharged Inpatient 1 [facility] [id number] [facility] 2019-05-07 18:27:00 2019-06-04 20:58:00 Discharged Inpatient 1 [facility] [id number] [facility] 2019-03-24 15:49:00 2019-03-24 19:20:00 Departed Emergency Room 1 HUNTER HEARD [facility] [id number] [facility] 2018-09-28 06:57:00 2018-10-03 09:49:00 Discharged Inpatient 1 WILNER GRIMALDO [facility] [id number] [facility] 2018-07-11 18:26:00 2018-07-14 18:21:00 Discharged Inpatient 1 AISHA NOVOA [facility] [id number] [facility] 2018-06-17 22:58:00 2018-07-01 18:43:00 Discharged Inpatient 1 DILLAN FAUSTIN [facility] [id number] [facility] Results Test Description Test Time Test Comments Results Result Comments Source CT BRAIN WO 2019-09-24 02:36:00 [facility] [address] [place] [address] Patient Name: JOSHUA WHEELER MR #: [id number] : 1960 Age/Sex: 58/M Req #: [id number] Adm Physician: Ordered by: SHELLY HOOPER MD Report #: [id number] Location: ER Room/Bed: Procedure: [id number] CT/CT BRAIN WO Exam Date: 09/24/19 Exam Time: 0200 REPORT STATUS: Signed EXAMINATION: Head CT HISTORY: AMS, low blood sugar COMPARISON: Head CT 08/16/2019. TECHNIQUE: Helical axial images of the head were obtained. Reformatted coronal and sagittal images from the axial data. Dose modulation, iterative reconstruction, and/or weight based adjustment of the mA/kV was utilized to reduce the radiation dose to as low as reasonably achievable. Image quality: Motion/streaking artifact limits the evaluation of the skull base and posterior cranial fossa. FINDINGS: Parenchyma: 1. A few scattered hypodensities in the supratentorial white matter are nonspecific but are most compatible with chronic microva scular ischemic changes. Chronic lacunar infarcts present in the bilateral thalami,, centered in the left llanos radiata extends to the body of the caudate nucleus and superior margin of the left lentiform nucleus and in near the junction of the right llanos radiata and anterior limb of the right internal capsule. 2. No mass or hemorrhage. No CT evidence of acute territorial vascular insult. Extra-axial spaces:No abnormal density. No extra-axial fluid collections Brain volume: Mild generalized volume loss. Ventricles: No hydrocephalus or displacement. Arteries: No density suggestive of thrombus. Dural sinuses: No abnormal density. Foramen magnum: No mass, Chiari malformation, or basilar invagination. Sella: No obvious mass. Paranasal/mastoid sinuses: Imaged portions unremarkable. Skull/Scalp: No lytic or blastic lesions. No fractures. Incidental findings: Bilateral intraocular lens replacements. Atherosclerotic calcifications in the carotid siphons and intradural vertebral arteries. IMPRESSION: 1. No acute intracranial abnormalities. 2. Mild generalized parenchymal volume loss. 3. Mild chronic microvascular ischemic changes and chronic lacunar infarcts as described. Signed by: Dr. Stephon Joshua M.D. on 09/24/2019 2:40 AM Dictated By: STEPHON JOSHUA MD 9 Transcribed By: LOREE on 09/24/19239 COPY TO: SHELLY HOOPER MD Bedside Glucose 2019-08-20 16:54:00 Test Item Bedside Glucose (test code = 55551-7) 192 70-120 Meter ID: [id number] [facility] 2019-08-19 08:37:00* Test Item Value Reference Range Interpretation Comments Blood Culture (test code = 31042116) NO GROWTH AFTER 72 HOURS [facility] [id number] 05:38:00* Test Item Value Reference Range Interpretation Comments White Blood Count (test code = 6690-2) 6.11 4.8-10.8 [facility] Blood [id number] 05:38:00* Test Item Value Reference Range Interpretation Comments Red Blood Count (test code = 789-8) 3.18 4.3-5.7 [facility]emoglobin2020-04-21 05:38:00* Test Item Value Reference Range Interpretation Comments Hemoglobin (test code = 11741-4) 9.2 14.0-18.0 [facility] AustinHematocrit2020-04-21 05:38:00* Test Item Value Reference Range Interpretation Comments Hematocrit (test code = 4544-3) 28.7 38.2-49.6 [facility] AustinMean Corpuscular [id number] 05:38:00* Test Item Value Reference Range Interpretation Comments Mean Corpuscular Volume (test code = 787-2) 90.3 81-99 [facility] AustinMean Corpuscular Hyuupqclcy5798-40-05 05:38:00* Test Item Value Reference Range Interpretation Comments Mean Corpuscular Hemoglobin (test code = 785-6) 28.9 28-32 [facility] Austin[facility] Corpuscular Hemoglobin Concent 2019-08-19 05:38:00* Test Item Value Reference Range Interpretation Comments Mean Corpuscular Hemoglobin Concent (test code = 786-4) 32.1 31-35 [facility] Austin[facility] Cell Distribution [id number] 05:38:00* Test Item Value Reference Range Interpretation Comments Red Cell Distribution Width (test code = 71230-2) 14.6 11.7 -14.4 [facility] AustinPlatelet [id number] 05:38:00* Test Item Value Reference Range Interpretation Comments Platelet Count (test code = 777-3) 205 140-360 [facility] AustinNeutrophils (%) (Auto)2019-08-19 05:38:00 * Test Item Value Reference Range Interpretation Comments Neutrophils (%) (Auto) (test code = 06518-8) 64.8 38.7-80.0 [facility] AustinLymphocytes (%) (Auto)2019-08-19 05:38:00 * Test Item Value Reference Range Interpretation Comments Lymphocytes (%) (Auto) (test code = 736-9) 16.4 18.0-39.1 [facility] Austin[facility]ocytes (%) (Auto)2019-08-19 05:38:00* Test Item Value Reference Range Interpretation Comments Monocytes (%) (Auto) (test code = 5905-5) 10.6 4.4-11.3 [facility] Austin[facility]osinophils (%) (Auto)2019-08-19 05:38:00 * Test Item Value Reference Range Interpretation Comments Eosinophils (%) (Auto) (test code = 713-8) 7.2 0.0-6.0 [facility] Austin[facility]ophils (%) (Auto)2019-08-19 05:38:00* Test Item Value Reference Range Interpretation Comments Basophils (%) (Auto) (test code = 706-2) 0.7 0.0-1.0 [facility] AustinIM GRANULOCYTES %2019-08-19 05:38:00* Test Item Value Reference Range Interpretation Comments IM GRANULOCYTES % (test code = IM GRANULOCYTES %) 0.3 0.0- 1.0 [facility] AustinNeutrophils # (Auto)2019-08-19 05:38:00* Test Item Value Reference Range Interpretation Comments Neutrophils # (Auto) (test code = 751-8) 4.0 2.1-6.9 [facility] AustinLymphocytes # (Auto)2019-08-19 05:38:00* Test Item Value Reference Range Interpretation Comments Lymphocytes # (Auto) (test code = 90575-5) 1.0 1.0-3.2 [facility] AustinMonocytes # (Auto)2019-08-19 05:38:00* Test Item Value Reference Range Interpretation Comments Monocytes # (Auto) (test code = 742-7) 0.7 0.2-0.8 [facility] AustinEosinophils # (Auto)2019-08-19 05:38:00* Test Item Value Reference Range Interpretation Comments Eosinophils # (Auto) (test code = 711-2) 0.4 0.0-0.4 [facility] AustinBasophils # (Auto)2019-08-19 05:38:00* Test Item Value Reference Range Interpretation Comments Basophils # (Auto) (test code = 704-7) 0.0 0.0-0.1 [facility] AustinAbsolute Immature Granulocyte (auto 2019-08-19 05:38:00* Test Item Value Reference Range Interpretation Comments Absolute Immature Granulocyte (auto (dany t code = Absolute Immature Granulocyte (auto) 0.02 0-0.1 [facility] [id number] 05:31:00* Test Item Value Reference Range Interpretation Comments Sodium Level (test code = 2951-2) 137 136-145 [facility] AustinPotassium Deygy4645-05-98 05:31:00* Test Item Value Reference Range Interpretation Comments Potassium Level (test code = 2823-3) 4.5 3.5-5.1 [facility] AustinChloride [id number] 05:31:00* Test Item Value Reference Range Interpretation Comments Chloride Level (test code = 2075-0) 101 98-107 [facility] AustinCarbon Dioxide [id number] 05:31:00* Test Item Value Reference Range Interpretation Comments Carbon Dioxide Level (test code = 2028-9) 29 22-29 [facility] AustinAnion [id number] 05:31:00* Test Item Value Reference Range Interpretation Comments Anion Gap (test code = 20701-4) 11.5 8-16 [facility] AustinBlood Urea [id number] 05:31:00* Test Item Value Reference Range Interpretation Comments Blood Urea Nitrogen (test code = 3094-0) 54 7-26 [facility] AustinCreatinine2020-04-21 05:31:00* Test Item Value Reference Range Interpretation Comments Creatinine (test code = 2160-0) 3.92 0.72-1.25 [facility] AustinBUN/Creatinine Zuuee7571-51-10 05:31:00* Test Item Value Reference Range Interpretation Comments BUN/Creatinine Ratio (test code = 3097-3) 14 6-25 [facility] AustinEstimat Glomerular Filtration Rate 2019-08-19 05:31:00* Test Item Value Reference Range Interpretation Comments Estimat Glomerular Filtration Rate (test code = 460849553) 16 >60 Ranges were taken from the National Kidney Disease Education Program and the [facility] Foundation literature.Reference ranges:60 or greater: Mexzrw65-56 ( for 3 consecutive months): Chronic kidney disease 15 or less: Kidney failureAsc[facility]on [facility] Center AustinGlucose [id number] 05:31:00* Test Item Value Reference Range Interpretation Comments Glucose Level (test code = QPA6904) 143 74-118 [facility] AustinCalcium Uwfpd4348-30-48 05:31:00* Test Item Value Reference Range Interpretation Comments Calcium Level (test code = 60060-8) 8.9 8.4-10.2 [facility] AustinPhosphorus Uxfgl1362-70-15 05:31:00* Test Item Value Reference Range Interpretation Comments Phosphorus Level (test code = TKE3454) 4.9 2.3-4.7 [facility] AustinMagnesium Woune8834-41-96 05:31:00* Test Item Value Reference Range Interpretation Comments Magnesium Level (test code = 55892-5) 2.0 1.3-2.1 [facility] AustinTotal Bwvibexjp2918-02-02 05:31:00* Test Item Value Reference Range Interpretation Comments Total Bilirubin (test code = 1975-2) 0.4 0.2-1.2 [facility] AustinAspartate Amino Transf (AST/SGOT) 2019-08-19 05:31:00* Test Item Value Reference Range Interpretation Comments Aspartate Amino Transf (AST/SGOT) (test code = Aspartate Amino Transf (AST/SGOT)) 31 5-34 [facility] AustinAlanine Aminotransferase (ALT/SGPT) 2019-08-19 05:31:00* Test Item Value Reference Range Interpretation Comments Alanine Aminotransferase (ALT/SGPT) (test code = 1742-6) 34 0-55 [facility] AustinTotal Vcvawoo6857-02-00 05:31:00* Test Item Value Reference Range Interpretation Comments Total Protein (test code = 2885-2) 6.9 6.5-8.1 [facility] AustinAlbumin2020-04-21 05:31:00* Test Item Value Reference Range Interpretation Comments Albumin (test code = 1751-7) 2.4 3.5-5.0 [facility] AustinGlobulin2020-04-21 05:31:00* Test Item Value Reference Range Interpretation Comments Globulin (test code = 44503-3) 4.5 2.3-3.5 [facility] AustinAlbumin/Globulin Nondp5700-66-55 05:31:00 * Test Item Value Reference Range Interpretation Comments Albumin/Globulin Ratio (test code = 1759-0) 0.5 0.8-2.0 [facility] AustinAlkaline Pxcwlyithip4717-18-14 05:31:00* Test Item Value Reference Range Interpretation Comments Alkaline Phosphatase (test code = 6768-6) 156 40-150 [facility] AustinCHEST SINGLE (PORTABLE)2019-08-18 08:44:00 [place] [address] Patient Name: JOSHUA WHEELER MR #: [id number] : 1960 Age/Sex: 58/M Req #: [id number] Adm Physician: SUNG VAIL MD Ordered by: GERMAIN ARNETT MD Report #: [id number] Location: ICU Room/Bed: [place] [address] Procedure: [id number] DX/CHEST SINGLE (PORTABLE) Exam Date: 08/18/19 Exam [...] MD 4 Transcribed By: YOSEPH RAN on 08/18/19844 COPY TO: GERMAIN ARNETT MD B-Type Natriuretic Hfzciqy9287-56-66 05:58:00* Test Item Value Reference Range Interpretation Comments B-Type Natriuretic Peptide (test code = 46393-6) > 5000.0 0-100 [facility] SINGLE (PORTABLE)2019-08-17 08:41:00 [place] [address] Patient Name: JOSHUA WHEELER MR #: [id number] : 1960 Age/Sex: 58/M Req #: [id number] Adm Physician: USNG VAIL MD Ordered by: GERMAIN ARNETT MD Report #: [id number] Location: ICU Room/Bed: ICU [facility] Procedure: [id number] DX/CHEST SINGLE (PORTABLE) Exam Date: 08/17/19 Exam [...] d By: ARLEEN VIDAL MD, MD on 08/17/19843 Transcribed By: LOREE on 08/17/19843 COPY TO: GERMAIN ARNETT MD Arterial Blood aU6301-77-18 06:30:00* Test Item Value Reference Range Interpretation Comments Arterial Blood pH (test code = 2744-1) 7.42 7.35-7.45 [facility] AustinArterial Blood Partial Pressure CO2 2019-08-17 06:30:00* Test Item Value Reference Range Interpretation Comments Arterial Blood Partial Pressure CO2 (test code = 2019-8) 48 35-45 [facility] AustinArterial Blood YRV37263-50-80 06:30:00* Test Item Value Reference Range Interpretation Comments Arterial Blood HCO3 (test code = 1960-4) 31 22-26 [facility] AustinArterial Blood Base Brsyey9788-10-37 06:30:00* Test Item Value Reference Range Interpretation Comments Arterial Blood Base Excess (test code = 1925-7) 6.0 -2-3 [facility] AustinFiO22020-04-19 06:30:00* Test Item Value Reference Range Interpretation Comments FiO2 (test code = FiO2) 28 [facility]L [facility]15 17:35:00 * Test Item Value Reference Range Interpretation Comments Troponin I (test code = 97930-9) 0.125 0-0.300 [facility] AustinLactic Acid Leqxe4080-01-42 08:59:00* Test Item Value Reference Range Interpretation Comments Lactic Acid Level (test code = Lactic Acid Level) 2.4 0.5- 2.0 Results repeated and called to ANDREA TREVIÑO RN at 0858 on 08/16/19 by Meron paul. Read back and verified.[facility] AustinCreatine Kinase IS7756-00-17 08:44:00* Test Item Value Reference Range Interpretation Comments Creatine Kinase MB (test code = 41049-5) 3.00 0-5.0 [facility] AustinCreatine Jjbpdi5168-82-03 08:38:00* Test Item Value Reference Range Interpretation Comments Creatine Kinase (test code = 2157-6) 26 30-200 [facility] AustinAmmonia2020-04-18 08:31:00* Test Item Value Reference Range Interpretation Comments Ammonia (test code = 78151-5) 40 31-123 [facility] AustinCT BRAIN GB8442-61-41 07:46:00 [place] [address] Patient Name: JOSHUA WHEELER MR #: [id number] : 1960 Age/Sex: 58/M Req #: [id number] Adm Physician: SUNG VAIL MD Ordered by: GERMAIN ARNETT MD Report #: [id number] Location: MED/SURG Room/Bed: [facility] Procedure: [id number] CT/CT BRAIN WO Exam Date: 08/16/19 Exam [...] No mass, acute hemorrhage or acute corti yaniv insult. Sellar/suprasellar region: No abnormalities. Craniocervical j [...] M.D. on 020 7:54 AM Dictated By: KEN GARRIDO MD 0755 Transcribed By: LOREE on 08/16/19 4237 COPY TO: GERMAIN ARNETT MD CHEST SINGLE (PORTABLE)2019-08-16 07:37:00 [facility] [place] [address] Patient Name: JOSHUA WHEELER MR #: [id number] : 1960 Age/Sex: 58/M Req #: [id number] Adm Physician: SUNG VAIL MD Ordered by: GERMAIN ARNETT MD Report #: [id number] Location: MED/SURG Room/Bed: [facility] Procedure: [id number] DX/CHEST SINGLE (PORTABLE) Exam Date: 08/16/19 Exam [...] right pleural effusions. Loculated component at the confluence healtht lung apex. No pneumothorax. HEART AND MEDIASTINUM: [...] COPY TO: GERMAIN REDMAN MD Hepatitis Be Rkfutht1507-95-42 11:49:00* Test Item Value Reference Range Interpretation Comments Hepatitis Be Antigen (test code = 68293-9) Positive Negative Results called to FABIOLA HAN RN at 1148 on 08/14/19 by Cayetano El. RB [place].Perfo rmed at: [facility] [address] [id number] Dire ctor: Alec Javier MD, Phone: [phone] Seton Medical Center Austin Hepatitis B Surface Antibody, Wzdql8572-55-27 08:37:00* Test Item Value Reference Range Interpretation Comments Hepatitis B Surface Antibody, Quant (test code = 5194-6) 114.9 Immunity>9.9 Status of Immunity Anti-HBs Level Inconsistent with Immunity 0.0 - 9.9Consistent with Immunity >9.9[facility]oundHepatitis B Core Total Ppmoknhf9865-33-28 08:37:00* Test Item Value Reference Range Interpretation Comments Hepatitis B Core Total Antibody (test code = 99998-3) Negative Negative [facility] B Surface Lnbmjzg0233-53-62 08:37:00* Test Item Value Reference Range Interpretation Comments Hepatitis B Surface Antigen (test code = 5196-1) Negative Negat aye [facility] AustinH[facility] Core IgM Yvckvloi8622-93-09 08:37:00* Test Item Value Reference Range Interpretation Comments Hepatitis B Core IgM Antibody (test code = 70899-0) Negative Ne gative Performed at: - [facility] [address] [id number] Director: Alec Javier MD, Phone: [phone] Seton Medical Center AustinCT BRAIN UC2791-06-96 00:47:00 [place] [address] Patient Name: JOSHUA WHEELER MR #: [id number] : 1960 Age/Sex: 58/M Req #: [id number] Adm Physician: SUNG VAIL MD Ordered by: SHELLY HOOPER MD Report #: [id number] Location: ICU Room/Bed: ICU [facility] Procedure: CT/CT BRAIN WO Exam Date: 08/14/19 [...] SHELLY HOOPER MD CHEST SINGLE (PORTABLE)2019-08-12 23:03:00 [place] [address] Patient Name: JOSHUA WHEELER MR #: [id number] : 1960 Age/Sex: 58/M Req #: [id number] Adm Physician: Ordered by: SHELLY HOOPER MD [...] COPY TO: SHELLY HOOPER MD Body Fluid Verpbmxoohf0574-86-06 22:29:00* Test Item Value Reference Range Interpretation Comments Body Fluid Neutrophils (test code = 13952-5) 10 [facility] AustinBody Fluid Qujznyburwv2005-37-66 22:29:00 * Test Item Value Reference Range Interpretation Comments Body Fluid Lymphocytes (test code = 51256572) 72 [facility] AustinBody Fluid Eearekzkz2112-76-59 22:29:00* Test Item Value Reference Range Interpretation Comments Body Fluid Monocytes (test code = 75828-7) 18 [facility] AustinBody Fluid Total Cells Rqqrhqy5443-30-43 22:29:00* Test Item Value Reference Range Interpretation Comments Body Fluid Total Cells Counted (test code = 94944-7) 50 [facility] AustinBody Fluid POK4720-31-40 16:58:00* Test Item Value Reference Range Interpretation Comments Body Fluid WBC (test code = 6743-9) 45 [facility] AustinBody Fluid XYC0888-57-51 16:58:00* Test Item Value Reference Range Interpretation Comments Body Fluid RBC (test code = 6741-3) 8 [facility] AustinTHORACENTESIS/IMAGE CEZAIS7706-37-30 16:26:00 [place] [address] Patient Name: JOSHUA WHEELER MR #: [id number] : 1960 Age/Sex: 58/M Req #: [id number] Adm Physician: SUNG VAIL MD Ordered by: MARILIN ALBA MD Report #: [id number] [facility] Room/Bed: [facility] Procedure: US/THORACENTESIS/IMAGE GUIDED Exam Date: Exam Ti me: REPORT STATUS: Signed PROCE DURE: Ultrasound-guided thoracentesis Procedural Personnel Attending phys piotr(s): Kevin Banda MD Fellow physician(s): None Resident [...] on 07/28/191627 COPY TO: MARILIN ALBA MD, [facility] Body Fluid Vhtl6384-58-43 16:10:00* Test Item Value Reference Range Interpretation Comments Body Fluid Type (test code = 48813-0) PLEURAL [facility] AustinBody Fluid Wpjtg7787-50-41 16:10:00* Test Item Value Reference Range Interpretation Comments Body Fluid Color (test code = 6824-7) YELLOW [facility] AustinBody Fluid Xzmsyoddub9347-66-59 16:10:00 * Test Item Value Reference Range Interpretation Comments Body Fluid Appearance (test code = 9335-1) SL.CLOUDY [facility] AustinCHEST XRAY POST GGFXEDQDP7223-82-40 15:25:00 [facility] [address] [place] [address] Patient Name: JOSHUA WHEELER MR #: [id number] : 1960 Age/Sex: 58/M Req #: [id number] Adm Physician: SUNG VAIL MD Ordered by: KEVIN BANDA MD Report #: [id number] Location: MED/SURG2 Room/Bed: [facility] Procedure: [id number] DX /CHEST XRAY POST PROCEDURE Exam Date: [...] y Signed By: KEVIN BANDA MD on 07/28/191526 Transcribed By: LOREE on 07/28/19 152 COPY TO: KEVIN BANDA MD CHEST SINGLE (PORTABLE)2019-07-27 08:50:00 [place] [address] Patient Name: JOSHUA WHEELER MR #: [id number] : 1960 Age/Sex: 58/M Req #: [id number] Adm Physician: SUNG VAIL MD Ordered by: GERMAIN RANETT MD Report #: [id number] Location: MED/SURG2 Room/Bed: [facility] Procedure: [id number] DX/CHEST SINGLE (PORTABLE) Exam Date: 07/27/19 Exam [...] COPY TO: GERMAIN ARNETT MD Random Vancomycin Emzcu7042-45-69 20:29:00* Test Item Value Reference Range Interpretation Comments Random Vancomycin Level (test code = 57226-0) 9.2 [facility] AustinCoronavirus (PCR)2019-07-25 15:17:00* Test Item Value Reference Range [...] to perform high complexity tests.Specimen sent [facility] and testing performed by Clinical Pathology [address] [place], [place] [phone] Director: Santos Olvera M.D.[facility] # [id number] [facility] SINGLE (PORTABLE) 2019-07-25 09:41:00 [facility] [address] [place] [address] Patient Name: JOSHUA WHEELER MR #: [id number] : 1960 Age/Sex: 58/M Req #: [id number] Adm Physician: SUNG VAIL MD Ordered by: PHYLLIS GARCIA MD Report #: [id number] Location: MED/SURG2 Room/Bed: [facility] Procedure: [id number] DX/CHEST SINGLE (PORTABLE) Exam [...] 9:47 AM Dictated By: KEVIN BANDA MD Transcribed By: LOREE on 07/25/19946 CO PY TO: PHYLLIS GARCIA MD CHEST SINGLE (PORTABLE)2019-07-24 10:32:00 [place] [address] Patient Name: JOSHUA WHEELER MR #: [id number] : 1960 Age/Sex: 58/M Req #: [id number] Adm Physician: Ordered by: PHYLLIS GARCIA MD Report #: [id number] Location: ER Room/Bed: Procedure: [id number] DX/CHEST SINGLE (PORTABLE) Exam Date: 07/24/19 [...] Superimposed pneumonia cannot be excluded. Signed by: Aelx Elaine on 07/24/2019 10:35 AM Dictated By: ALEX BRICEÑO MD 1035 Transcribe d By: LOREE on 07/24/19 1035 COPY TO: PHYLLIS GARCIA MD Urine AMJ9605-93-08 09:48:00* Test Item Value Reference Range Interpretation Comments Urine WBC (test code = 5821-4) 03-19 0-5 [facility] AustinUrine DYI4597-60-56 09:48:00* Test Item Value Reference Range Interpretation Comments Urine RBC (test code = 93615-7) 03-19 0-5 [facility] AustinUrine Wzgwjasa9654-51-91 09:48:00* Test Item Value Reference Range Interpretation Comments Urine Bacteria (test code = 97787-7) MODERATE NONE [facility] AustinUrine Epithelial Gmdey7447-02-05 09:48:00 * Test Item Value Reference Range Interpretation Comments Urine Epithelial Cells (test code = 85889-7) MODERATE NONE [facility] AustinUrine Calcium Oxalate Prgjkndg1986-27-03 09:48:00* Test Item Value Reference Range Interpretation Comments Urine Calcium Oxalate Crystals (test code = 5774-5) RARE FE W [facility] AustinGroup A Streptococcus Hradcg7821-55-19 09:48:00* Test Item Value Reference Range Interpretation Comments Group A Streptococcus Screen (test code = 45792-8) NEGATIVE NEG ATIVE [facility] AustinInfluenza Virus Types A,B Antigen 2019-07-24 09:39:00* Test Item Value Reference Range Interpretation Comments Influenza Virus Types A,B Antigen (test code = 52076-1) NEGATIVE NEGATIVE [facility] AustinUrine Jspki3477-16-84 09:37:00* Test Item Value Reference Range Interpretation Comments Urine Color (test code = 5778-6) YELLOW YELLOW [facility] AustinUrine Zmqkhfj6898-12-53 09:37:00* Test Item Value Reference Range Interpretation Comments Urine Clarity (test code = 29216-5) CLEAR CLEAR [facility] AustinUrine Specific Gnitzmq6971-57-88 09:37:00 * Test Item Value Reference Range Interpretation Comments Urine Specific [place] (test code = 5811-5) 1.020 1.010-1.02 5 [facility] AustinUrine kG3116-48-78 09:37:00* Test Item Value Reference Range Interpretation Comments Urine pH (test code = 28861-9) 8.5 5-7 [facility] AustinUrine Leukocyte Rvpjltsd9422-36-44 09:37:00* Test Item Value Reference Range Interpretation Comments Urine Leukocyte Esterase (test code = 5799-2) NEGATIVE NEGATIVE [facility] AustinUrine Fnkmyif6816-80-44 09:37:00* Test Item Value Reference Range Interpretation Comments Urine Nitrite (test code = 07702-9) NEGATIVE NEGATIVE [facility] AustinUrine Kougyyh2424-23-19 09:37:00* Test Item Value Reference Range Interpretation Comments Urine Protein (test code = 5804-0) >=300 NEGATIVE [facility] AustinUrine Glucose (UA)2019-07-24 09:37:00* Test Item Value Reference Range Interpretation Comments Urine Glucose (UA) (test code = 2349-9) NEGATIVE NEGATIVE [facility] AustinUrine Xxctkaj8134-61-01 09:37:00* Test Item Value Reference Range Interpretation Comments Urine Ketones (test code = 20044-7) NEGATIVE NEGATIVE [facility] AustinUrine Nrfnuhippkyu1396-03-40 09:37:00* Test Item Value Reference Range Interpretation Comments Urine Urobilinogen (test code = 11105-6) 0.2 0.2-1 [facility] AustinUrine Yohubqjaq7879-66-04 09:37:00* Test Item Value Reference Range Interpretation Comments Urine Bilirubin (test code = 1978-6) NEGATIVE NEGATIVE [facility] AustinUrine Wmnnc3014-72-18 09:37:00* Test Item Value Reference Range Interpretation Comments Urine Blood (test code = 31789-8) TRACE NEGATIVE [facility] AustinMethylmalonic Vyty4361-49-37 07:50:00* Test Item Value Reference Range Interpretation Comments Methylmalonic Acid (test code = 95421-3) 330 Reference Range:0 - 378 nmol/LDisclaimer: This test was developed and its perfo rmance characteristics determined by [employer]. It has not been cleared or approve d by the Food and Drug Administration.Testing performed by:[facility] [address] [place] [id number]. Solomon YumiCaleb Chris [facility]2019-07-11 14:06:00 [facility] [address] [place] [address] Patient Name: JOSHUA WHEELER MR #: [id number] : 1960 Age/Sex: 58/M Req #: [id number] Adm Physician: BRETT CAZARES MD Ordered by: BRETT CAZARES MD Report #: [id number] Location: MED/SURG3 Room/Bed: [facility] Procedure: [id number] DX/ABDOMEN-1VIEW (KU) Exam Date: 07/11/19 Exam Time [...] 2:07 PM Dictated By: KEVIN BANDA MD 06 Transcribed By: LOREE on 07/11/191406 COPY TO: BRETT CAZARES MD Hepatitis A IgM Kscqvamp4720-72-10 14:26:00 * Test Item Value Reference Range Interpretation Comments Hepatitis A IgM Antibody (test code = 93713-3) Negative Negativ e [facility] Ildmofim4892-94-36 14:26:00* Test Item Value Reference Range Interpretation Comments Hepatitis C Antibody (test code = 71323-6) <0.1 0.0-0.9 Negative: < 0.8 Indeterminate: 0.8 - 0.9 Positive: > 0.9 The CDC recommends that a positive HCV antibody result be followed up with a HCV Nucleic Acid Amplification test (266766).Performed at: - [facility] [id number] Director: Alec Javier MD, Phone: [phone] [facility] SINGLE (PORTABLE) 2019-07-08 07:43:00 [facility] [address] [place] [address] Patient Name: JOSHUA WHEELER MR #: [id number] : 1960 Age/Sex: 58/M Req #: [id number] Adm Physician: BRETT CAZARES MD Ordered by: BRETT CAZARES MD Report #: [id number] Location: [facility] Room/Bed: [place] [address] Procedure: [id number] DX/CHEST SINGLE (PORTABLE) Exam Date: 07/08/19 Exam [...] 07/08/19744 COPY TO: BRETT CAZARES MD Iron Gfjci7083-02-87 05:10:00* Test Item Value Reference Range Interpretation Comments Iron Level (test code = 2498-4) 35 65-175 [facility] AustinTotal Iron Binding Rcgxeilo9848-24-06 05:10:00* Test Item Value Reference Range Interpretation Comments Total Iron Binding Capacity (test code = 2500-7) 118 261-4 78 [facility] AustinPercent Iron Bkyxwmuxxg5143-19-07 05:10:00* Test Item Value Reference Range Interpretation Comments Percent Iron Saturation (test code = 2502-3) 30 15-50 [facility] AustinTransferrin2020-03-09 05:10:00* Test Item Value Reference Range Interpretation Comments Transferrin (test code = 3034-6) 84 174-364 [facility] AustinCHEST SINGLE (PORTABLE)2019-07-06 16:35:00 [facility] [address] [place] [address] Patient Name: JOSHUA WHEELER MR #: [id number] : 1960 Age/Sex: 58/M Req #: [id number] Adm Physician: Ordered by: ALEX DELUCA MANAGEMENT AND BUDGET ANALYST Report #: [id number] Location: ER Room/Bed: Procedure: [id number] DX/CHEST SINGLE (PORTABLE) Exam Date: 07/06/19 Exam [...] ctronically Signed By: LIZ OROZCO MD on 07/06/19 1639 Transcribed By: LOREE pérez 07/06/19 1639 COPY TO: ALEX DELUCA NP Activated Partial Thromboplast Wylk8938-59-84 15:24:00* Test Item Value Reference Range Interpretation Comments Activated Partial Thromboplast Time (test code = 88051-0) 49.7 23.8-35.5 [facility] AustinProthrombin Rcmk5701-06-34 15:13:00* Test Item Value Reference Range Interpretation Comments Prothrombin Time (test code = 5902-2) 14.4 11.9-14.5 [facility] AustinProthromb Time International Ratio 2019-07-06 15:13:00* Test Item Value Reference Range Interpretation Comments Prothromb Time International Ratio (test code = 6301-6) 1.05 Oral Anticoagulant Therapy INR Values:1. Low Intensity Therapy 1.5 - 2.02 . Moderate Intensity Therapy 2.0 - 3.03. High Intensity Therapy(1) 2.5 - 3. 54. High Intensity Therapy(2) 3.0 - 4.05. Panic Value INR > 5.0 [facility] AustinCHEST SINGLE (PORTABLE)2019-06-04 14:23:00 [facility] [address] [place] [address] Patient Name: JOSHUA WHEELER MR #: [id number] : 1960 Age/Sex: 58/M Req #: [id number] Adm Physician: BRETT CAZARES MD Ordered by: BRETT CAZARES MD Report #: [id number] Location: [facility] Room/Bed: [place] [address] Procedure: [id number] DX/CHEST SINGLE (PORTABLE) Exam Date: 06/04/19 Exam [...] COPY TO: LORY CAZARES MD Platelet Morphology Lmczxxq3318-03-12 07:19:00* Test Item Value Reference Range Interpretation Comments Platelet Morphology Comment (test code = 48555-7) NO EDTA PLT CLUMP S [facility] SINGLE (PORTABLE)2019-06-01 15:53:00 [facility] [address] [place] [address] Patient Name: JOSHUA WHEELER MR #: [id number] : 1960 Age/Sex: 58/M Req #: [id number] Adm Physician: BRETT CAZARES MD Ordered by: AMBAR CABRAL MANAGEMENT AND BUDGET ANALYST Report #: [id number] Location: [facility] Room/Bed: [place] [address] Procedure: [id number] DX/CHEST SINGLE (PORTABLE) Exam Date: 06/01/19 Exam [...] COPY TO: AMBAR CABRAL NP Stool Occult Jkeaw9537-94-44 15:25:00* Test Item Value Reference Range Interpretation Comments Stool Occult Blood (test code = 2335-8) NEGATIVE NEGATIVE [facility]CHES 2 WGPSU9119-10-27 08:00:00 [facility] [address] [place] [address] Patient Name: JOSHUA WHEELER MR #: [id number] : 1960 Age/Sex: 58/M Req #: [id number] Adm Physician: BRETT CAZARES MD Ordered by: KEN SCOTT MD Report #: [id number] Location: [facility] Room/Bed: [place] [address] Procedure: [id number] DX /CHEST 2 VIEWS Exam Date: 06/01/19 [...] KEN CHANEL MD CHEST SINGLE (PORTABLE)2019-05-30 06:43:00 [place] [address] Patient Name: JOSHUA WHEELER MR #: [id number] : 1960 Age/Sex: 58/M Req #: [id number] Adm Physician: BRETT CAZARES MD Ordered by: MARILIN JUAN MD Report #: [id number] Location: [facility] Room/Bed: [place] [address] Procedure: [id number] DX/CHEST SINGLE (PORTABLE) Exam Date: 05/30/19 Exam [...] MARILIN JUAN MD CHEST SINGLE (PORTABLE)2019-05-29 19:34:00 [place] [address] Patient Name: JOSHUA WHEELER MR #: [id number] : 1960 Age/Sex: 58/M Req #: [id number] Adm Physician: BRETT CAZARES MD Ordered by: MARILIN JUAN MD Report #: [id number] Location: [facility] Room/Bed: [place] [address] Procedure: [id number] DX/CHEST SINGLE (PORTABLE) Exam Date: Exam Time: [...] M.D. on 05/29/2019 7:38 PM Dictated By: AND RIANNA VOGEL MD 37 Transcribed By: LOREE on 05/29/191937 COPY TO: MARILIN JUAN MD CHEST SINGLE (PORTABLE)2019-05-29 06:00:00 [place] [address] Patient Name: JOSHUA WHEELER MR #: [id number] : 1960 Age/Sex: 58/M Req #: [id number] Adm Physician: BRETT CAZARES MD Ordered by: MARILIN JUAN MD Report #: [id number] Location: [facility] Room/Bed: [place] [address] Procedure: [id number] DX/CHEST SINGLE (PORTABLE) Exam Date: 05/29/19 Exam [...] MARILIN JUAN MD CHEST SINGLE (PORTABLE)2019-05-28 15:04:00 [place] [address] Patient Name: JOSHUA WHEELER MR #: [id number] : 1960 Age/Sex: 58/M Req #: [id number] Adm Physician: BRETT CAZARES MD Ordered by: MARILIN JUAN MD Report #: [id number] Location: [facility] Room/Bed: [place] [address] Procedure: [id number] DX/CHEST SINGLE (PORTABLE) Exam Date: Exam Time: [...] 3:08 PM Dictated By: LIZ OROZCO MD 150 Transcribed By: LOREE on 05/28/19 150 COPY TO: MARILIN GORDON MD CHEST SINGLE (PORTABLE)2019-05-28 06:04:00 [place] [address] Patient Name: JOSHUA WHEELER MR #: [id number] : 1960 Age/Sex: 58/M Req #: [id number] Adm Physician: BRETT CAZARES MD Ordered by: MARILIN JUAN MD Report #: [id number] Location: [facility] Room/Bed: [place] [address] Procedure: [id number] DX/CHEST SINGLE (PORTABLE) Exam Date: Exam Time: [...] LOPEZ MD on 05/28/19605 Transcribed By: YOSEPH RAN on 05/28/19605 COPY TO: MARILIN JUAN MD CHEST SINGLE (PORTABLE)2019-05-27 05:49:00 [place] [address] Patient Name: JOSHUA WHEELER MR #: [id number] : 1960 Age/Sex: 58/M Req #: [id number] Adm Physician: BRETT CAZARES MD Ordered by: MARILIN JUAN MD Report #: [id number] Location: [facility] Room/Bed: [place] [address] Procedure: [id number] DX/CHEST SINGLE (PORTABLE) Exam Date: 05/27/19 Exam Time: 0500 REPORT STATUS: Signed EXAMINATION: CHEST SINGLE (PORTABLE) COMPARISON: Chest x-ray and CT c hest 05/26/2019 INDICATION: Follow up s/p decortication, chest tubes 20190527 0500 Y DISCUSSION: Frontal view of the chest [...] COPY TO: MARILIN JUAN MD Percent Reticulocyte Ousmp9597-66-79 05:47:00* Test Item Value Reference Range Interpretation Comments Percent Reticulocyte Count (test code = 29638-0) 1.6 0.8-2 .2 [facility] AE5149-91-59 09:39:00 [facility] [address] [place] [address] Patient Name: JOSHUA WHEELER MR #: [id number] : 1960 Age/Sex: 58/M Req #: [id number] Adm Physician: BRETT CAZARES MD Ordered by: MARILIN JUAN MD Report #: [id number] Location: [facility] Room/Bed: [place] [address] Procedure: [id number] CT/CT CHEST WO Exam Date: 05/26/19 Exam [...] MARILIN JUAN MD CHEST SINGLE (PORTABLE)2019-05-26 09:12:00 [place] [address] Patient Name: JOSHUA WHEELER MR #: [id number] : 1960 Age/Sex: 58/M Req #: [id number] Adm Physician: BRETT CAZARES MD Ordered by: MARILIN JUAN MD Report #: [id number] Location: [facility] Room/Bed: [place] [address] Procedure: [id number] DX/CHEST SINGLE (PORTABLE) Exam Date: 05/26/19 Exam [...] MARILIN JUAN MD CHEST SINGLE (PORTABLE)2019-05-25 09:37:00 [place] [address] Patient Name: JOSHUA WHEELER MR #: [id number] : 1960 Age/Sex: 58/M Req #: [id number] Adm Physician: BRETT CAZARES MD Ordered by: MARILIN JUAN MD Report #: [id number] Location: [facility] Room/Bed: [place] [address] Procedure: [id number] DX/CHEST SINGLE (PORTABLE) Exam Date: 05/25/19 Exam [...] MARILIN JUAN MD CHEST SINGLE (PORTABLE)2019-05-24 08:42:00 [place] [address] Patient Name: JOSHUA WHEELER MR #: [id number] : 1960 Age/Sex: 58/M Req #: [id number] Adm Physician: BRETT CAZARES MD Ordered by: MARILIN JUAN MD Report #: [id number] Location: [facility] Room/Bed: [place] [address] Procedure: [id number] DX/CHEST SINGLE (PORTABLE) Exam Date: 05/24/19 Exam [...] MARILIN JUAN MD CHEST SINGLE (PORTABLE)2019-05-23 08:45:00 [place] [address] Patient Name: JOSHUA WHEELER MR #: [id number] : 1960 Age/Sex: 58/M Req #: [id number] Adm Physician: BRETT CAZARES MD Ordered by: MARILIN JUAN MD Report #: [id number] Location: [facility] Room/Bed: [place] [address] Procedure: [id number] DX/CHEST SINGLE (PORTABLE) Exam Date: 05/23/19 Exam [...] TO: MARILIN JUAN MD DECLOT VASC IMPLANT/THROMB PB2691-22-99 17:02:00 [place] [address] Patient Name: JOSHUA WHEELER MR #: [id number] : 1960 Age/Sex: 58/M Req #: [id number] Adm Physician: BRETT CAZARES MD Ordered by: ANGEL NARAYAN, VAHID NARAYAN Report #: [id number] Location: [facility] Room/Bed: [place] [address] Procedure: [id number] IR/DECLOT VASC IMPLANT/THROMB AG Exam Date: Exam T dorian: REPORT STATUS: Signed A V fistula declot, 05/22/2019. History: ESRD, clotted AV fistula. Com parison: None available. Pumper Gager Apprentice: Dr. Elaine. Medication: 5 cc of 1% [...] sheath i nto the vein. A 6 English sheath was placed. The patient was given 5000 units o f heparin intravenously. A Trerotola device was used for mechanical thrombecto my with simultaneous infusion within the fistula of 2 mg of TPA. Second access was obtained within the fistula towards the arterial venous anastomosis, with a second 6 English sheath placed. The anastomosis was crossed with [...] 1 713 Transcribed By: LOREE on 05/22/19 1717 COPY TO: VAHID ORTIZ CHEST 2 [id number] 13:40:00 [place] [address] Patient Name: JOSHUA WHEELER MR #: [id number] : 1960 Age/Sex: 58/M Req #: [id number] Adm Physician: BRETT CAZARES MD Ordered by: MARILIN JUAN MD Report #: [id number] Location: [facility] Room/Bed: [place] [address] Procedure: [id number] DX/CHEST 2 VIEWS Exam Date: 05/22/19 Exam Time: 1100 REPORT STATUS: Signed Chest, 2 views. Clinical history: Evaluate prior to removal of chest tube. [facility] study: May 20, 2019. Findings: The cardiacs [...] 1:41 PM Dictated By: AMY DAUGHERTY MD Elect ronically Signed By: AMY DAUGHERTY MD on 05/22/19 1341 Transcribed By: LOREE on 05/22/19 1341 COPY TO: MARILIN JUAN MD CHEST SINGLE (PORTABLE)2019-05-21 14:22:00 [place] [address] Patient Name: JOSHUA WHEELER MR #: [id number] : 1960 Age/Sex: 58/M Req #: [id number] Adm Physician: BRETT CAZARES MD Ordered by: KEN SCOTT MD Report #: [id number] Location: [facility] Room/Bed: [place] [address] Procedure: [id number] DX /CHEST SINGLE (PORTABLE) Exam Date: 05/21/19 Exam Ti me: 1400 REPORT STATUS: Signed C hest, 1 view, 05/21/2019. History: The thorax. Comparison: [...] COPY TO: KEN SCOTT MD CHEST 2 JJEBK4823-94-52 18:21:00 [place] [address] Patient Name: JOSHUA WHEELER MR #: [id number] : 1960 Age/Sex: 58/M Req #: [id number] Adm Physician: BRETT CAZARES MD Ordered by: KEN SCOTT MD Report #: [id number] Location: [facility] Room/Bed: [place] [address] Procedure: [id number] DX /CHEST 2 VIEWS Exam Date: 05/20/19 [...] KEN SCOTT MD IR CONSULT 2019-05-20 18:04:00 [place] [address] Patient Name: JOSHUA WHEELER MR #: [id number] : 1960 Age/Sex: 58/M Req #: [id number] Adm Physician: BRETT CAZARES MD Ordered by: ANGEL NARAYAN, VAHID NARAYAN Report #: [id number] Location: [facility] Room/Bed: [place] [address] Procedure: [id number] DX/IR CONSULT Exam Date: Exam Time: REPORT [...] applied. Catheter placed: Bard Trialysis Catheter size (English): [address] length (cm): 20 Catheter [...] COPY TO: ERICA ORTIZ NON-TUNNELLED CVC CATH UYQZHRG1987-67-28 18:04:00 [place] [address] Patient Name: JOSHUA WHEELER MR #: [id number] : 1960 Age/Sex: 58/M Req #: [id number] Adm Physician: BRETT CAZARES MD Ordered by: ANGEL NARAYAN, VAHID NARAYAN Report #: [id number] Location: [facility] Room/Bed: [place] [address] Procedure: [id number] IR/NON-TUNNELLED CVC CATH PLACMNT Exam Date: 05/20/19 [...] Catheter placed: Bard Trialysis Ca theter size (English): 13 Catheter length (cm): 20 Catheter flush: [...] Transcribed By: LOREE on 05/27/191207 COPY TO: VAHID ORTIZ GUIDANCE FOR VASCULAR ACCES 2019-05-20 18:04:00 [place] [address] Patient Name: JOSHUA WHEELER MR #: [id number] : 1960 Age/Sex: 58/M Req #: [id number] Adm Physician: BRETT CAZARES MD Ordered by: ANGEL NARAYAN, VAHID NARAYAN Report #: [id number] Location: [facility] Room/Bed: [place] [address] Procedure: 6969-4433 /US GUIDANCE FOR VASCULAR ACCES Exam Date: 05/20/19 [...] Catheter placed: Bard Trialysis Ca theter size (English): 13 Catheter length (cm): 20 Catheter flush: [...] 6:06 PM Dictated By: KEVIN BANDA MD 1205 Transcribed By: LOREE on 05/27/19 1208 COPY TO: VAHID ORTIZ [facility] 2019-05-20 18:04:00 [place] [address] Patient Name: JOSHUA WHEELER MR #: [id number] : 1960 Age/Sex: 58/M Req #: [id number] [facility] Physician: BRETT CAZARES MD Ordered by: ANGEL NARAYAN, VAHID NARAYAN Report #: [id number] Location: [facility] Room/Bed: [place] [address] Procedure: [id number] IR[facility] REM Exam Date: 05/20/19 Exam Time: 1645 REPORT STATUS: S igned PROCEDURE: Non-tunneled central venous catheter placement Procedur al Personnel Attending physician(s): Kevin Banda MD Fellow physician(s): Alicia e Resident physician(s): None Advanced practice provider(s): [...] A sterile dressing was applied. Catheter placed: [place] Trialysis Ca theter size (English): 13 Catheter length (cm): 20 Catheter flush: [...] 6:06 PM Dictated By: KEVIN BANDA MD 1208 Transcribed By: LOREE on 05/27/19 1208 COPY TO: VAHID ORTIZ CHEST SINGLE (PORTABLE)2019-05-19 11:54:00 [place] [address] Patient Name: JOSHUA WHEELER MR #: [id number] : 1960 Age/Sex: 58/M Req #: [id number] Adm Physician: BRETT CAZARES MD Ordered by: MARILIN JUAN MD Report #: [id number] Location: [facility] Room/Bed: [place] [address] Procedure: [id number] DX/CHEST SINGLE (PORTABLE) Exam Date: 05/19/19 Exam [...] 05/19/19 115 Transcribed By: LOREE pérez 05/19/19 1156 COPY TO: MARILIN JUAN MD CHEST SINGLE (PORTABLE)2019-05-19 07:55:00 [place] [address] Patient Name: JOSHUA WHEELER MR #: [id number] : 1960 Age/Sex: 58/M Req #: [id number] Adm Physician: BRETT CAZARES MD Ordered by: KEN SCOTT MD Report #: [id number] Location: [facility] Room/Bed: [place] [address] Procedure: [id number] DX /CHEST SINGLE (PORTABLE) Exam Date: 05/19/19 [...] KEN SCOTT MD CHEST SINGLE (PORTABLE)2019-05-17 06:35:00 [place] [address] Patient Name: JOSHUA WHEELER MR #: [id number] : 1960 Age/Sex: 58/M Req #: [id number] Adm Physician: BRETT CAZARES MD Ordered by: MARILIN JUAN MD Report #: [id number] Location: ICU Room/Bed: ICU [facility] Procedure: [id number] DX/CHEST SINGLE (PORTABLE) Exam Date: 05/17/19 Exam Time: 05 REPORT STATUS: Signed EXAMINATION: CHEST SINGLE (PORTABLE) [...] TO: MARILIN JUAN MD Differential Total Cells Dsugzdb5486-15-39 09:14:00* Test Item Value Reference Range Interpretation Comments Differential Total Cells Counted (test code = Differen tial Total Cells Counted) 100 [facility]utroph[facility] % (Manual)2019-05-16 09:14:00 * Test Item Value Reference Range Interpretation Comments Neutrophils % (Manual) (test code = 41506-8) 88 40-74 [facility] AustinLymphocytes % (Manual)2019-05-16 09:14:00 * Test Item Value Reference Range Interpretation Comments Lymphocytes % (Manual) (test code = 737-7) 4 19-48 [facility] AustinMonocytes % (Manual)2019-05-16 09:14:00* Test Item Value Reference Range Interpretation Comments Monocytes % (Manual) (test code = 744-3) 5 3.4-9.0 [facility] AustinEosinophils % (Manual)2019-05-16 09:14:00 * Test Item Value Reference Range Interpretation Comments Eosinophils % (Manual) (test code = 714-6) 3 0-7 [facility] AustinPlatelet Ciqpaqzb7513-14-72 09:14:00* Test Item Value Reference Range Interpretation Comments Platelet Estimate (test code = 29672-3) ADEQUATE [facility] AustinRed Cell Morphology Dpzvbib2681-73-40 09:14:00* Test Item Value Reference Range Interpretation Comments Red Cell Morphology Comment (test code = 6742-1) NORMAL [facility] AustinCHEST SINGLE (PORTABLE)2019-05-16 07:08:00 [place] [address] Patient Name: JOSHUA WHEELER MR #: [id number] : 1960 Age/Sex: 58/M Req #: [id number] Adm Physician: BRETT CAZARES MD Ordered by: MARILIN JUAN MD Report #: [id number] Location: ICU Room/Bed: [place] [address] Procedure: 2272-3279 DX/CHEST SINGLE (PORTABLE) Exam Date: 05/16/19 Exam [...] TO: STEPHANIE JUAN MD Body Fluid Other Icabn7937-01-18 22:05:00* Test Item Value Reference Range Interpretation Comments Body Fluid Other Cells (test code = 953636521) 1 [facility] Cjvnsfz9509-43-50 20:42:00* Test Item Value Reference Range Interpretation Comments Body Fluid Glucose (test code = 2344-0) 65 [facility] AustinBody Fluid Total Iixsgjt9049-85-33 20:42:00* Test Item Value Reference Range Interpretation Comments Body Fluid Total Protein (test code = 2881-1) 3.8 [facility] SING[facility] (PORTABLE)2019-05-15 19:45:00 [facility] [address] [address] Patient Name: JOSHUA WHEELER MR #: [id number] : 1960 Age/Sex: 58/M Req #: [id number] Adm Physician: BRETT CAZARES MD Ordered by: TAY TATE MD Report #: [id number] Location: ICU Room/Bed: ICU [facility] Procedure: 1032-4188 D X/CHEST SINGLE (PORTABLE) Exam Date: 05/15/19 [...] 4Negative Control P assedPositive Control PassedTesting performed by:[id number] [place], [place] 860525-927-1 [phone]: Alex [facility] SINGLE (PORTABLE)2019-05-15 05:48:00 [place] [address] Patient Name: JOSHUA WHEELER MR #: [id number] : 1960 Age/Sex: 58/M Req #: [id number] Adm Physician: BRETT CAZARES MD Ordered by: MARILIN JUAN MD Report #: [id number] Location: [facility]URG Room/Bed: [facility] Procedure: 4483-9423 DX/CHEST SINGLE (PORTABLE) Exam Date: Exam Time: [...] Si gned By: TOD BUTTERFIELD MD on 05/15/1981 Transcribed By: LOREE on 05/15/19549 COPY TO: MARILIN JUAN MD Oyaf-9-Mhffrcezxnfef1163-01-14 19:11:00* Test Item Value Reference Range Interpretation Comments Aqdb-3-Ibqnzeeydoaio (test code = 1952-1) 26.8 0.6-2.4 Siemens Immulite 2000 Immunochemiluminometric assay (ICMA)Values obtained with d ifferent assay methods or kits cannotbe used interchangeably. Results cannot be interpreted asabsolute evidence of the presence or absence of malignantdisease.* *Results verified by repeat testingPerformed at: [facility] [id number] Director: Johanna Hines MD, Phone: [phone] [facility]PTOBILIARY2020-01-14 14:01:00 [place] [address] Patient Name: JOSHUA WHEELER MR #: [id number] : 1960 Age/Sex: 58/M Req #: [id number] Adm Physician: BRETT CAZARES MD Ordered by: REGGIE VAIL MD Report #: [id number] Location: MED/SURG2 Room/Bed: [facility] Procedure: 4562-3077 NM/HEPTOBILIARY Exam Date: 05/12/19 Exam Time: 1400 [...] 2:03 PM Dictated By: IVY ARENAS MD 1403 COPY TO: BRENTON VAIL MD CT CHEST QO8110-56-01 09:09:00 [place] [address] Patient Name: JOSHUA WHEELER MR #: [id number] : 1960 Age/Sex: 58/M Req #: [id number] Adm Physician: BRETT CAZARES MD Ordered by: EDIN JAIMES MD Report #: [id number] Location: MED/SURG2 Room/Bed: [facility] Procedure: 0113-[address]/CT CHEST WO Exam [...] antidependent, thus suggesting the complex and loculated eloy ure of the pleural effusion. Trace simple [...] KEVIN BANDA MD 2 COPY TO: SANTIAGO JAIMES MD CHEST SINGLE (PORTABLE)2019-05-12 18:32:00 [place] [address] Patient Name: JOSHUA WHEELER MR #: [id number] : 1960 Age/Sex: 58/M Req #: [id number] Adm Physician: BRETT CAZARES MD Ordered by: ANGEL NARAYAN, VAHID NARAYAN Report #: [id number] Location: MED/SURG2 Room/Bed: [facility] Procedure: 3607-2281 DX/CHEST SINGLE (PORTABLE) Exam Date: Exam Time: [...] Transcribed By: LOREE on 05/12/191832 COPY TO: VAHID ORTIZ THORACENTESIS/US KJLDJK9477-70-74 17:14:00 [place] [address] Patient Name: JOSHUA WHEELER MR #: [id number] : 1960 Age/Sex: 58/M Req #: [id number] Adm Physician: BRETT CAZARES MD Ordered by: ANGEL NARAYAN, VAHID NARAYAN Report #: [id number] Location: MED/SURG2 Room/Bed: [facility] Procedure: 3695-0692 US/THORACENTESIS/US GUIDED Exam Date: 05/12/19 Exam Time: [...] MD 14 Transcribed By: LOREE on 05/12/191714 TSO Y TO: VAHID ORTIZ KIIXCJH7964-94-49 17:14:00 [place] [address] Patient Name: JOSHUA WHEELER MR #: [id number] : 1960 Age/Sex: 58/M Req #: [id number] [facility] Physician: BRETT CAZARES MD Ordered by: ANGEL NARAYAN, VAHID NARAYAN Report #: [id number] Location: [place] [address] Room/Bed: [facility] Procedure: 1081-7876 DX/IR CONSULT Exam Date: Exam Time: REPORT [...] 1 715 Transcribed By: LOREE on 05/12/19 9645 COPY TO: VAHID ORTIZ CT ABDOMEN/PELVIS ZZ7808-76-06 09:25:00 [place] [address] Patient Name: JOSHUA WHEELER MR #: [id number] : 1960 Age/Sex: 58/M Req #: [id number] Adm Physician: BRETT CAZARES MD Ordered by: REGGIE VAIL MD Report #: [id number] Location: MED/SURG2 Room/Bed: [facility] Procedure: 0107-5391 CT/CT ABDOMEN/PELVIS WO Exam Date: 05/11/19 Exam [...] on 05/11/19929 COPY TO: REGGIE VAIL MD Elonet4266-71-89 11:02:00* Test Item Value Reference Range Interpretation Comments Folate (test code = 2284-8) 16.4 >3.0 A serum folate concentration of less than 3.1 ng/mL isconsidered to represent cl inical deficiency.Performed at: - [facility] [address] [id number] Director: Alec Javier MD, Phone: [phone] AustinIR SGFLLLK2463-95-72 15:52:00 [place] [address] Patient Name: JOSHUA WHEELER MR #: [id number] : 1960 Age/Sex: 58/M Req #: [id number] Adm Physician: BRETT CAZARES MD Ordered by: NIURKA FRIEND MD Report #: [id number] Location: MED/SURG2 Room/Bed: [facility] Procedure: 0028-0979 DX/IR CONSULT Exam Date: Exam Time: REPORT [...] bandage was applied . Catheter placed: 5F [facility] Post-drainage hemithorax findings: Small pleural effusion Additional [...] 05/09/191553 COPY TO: NIURKA FRIEND MD THORACENTESIS/US YKWPWF7717-20-46 15:52:00 [place] [address] Patient Name: JOSHUA WHEELER MR #: [id number] : 1960 Age/Sex: 58/M Req #: [id number] Adm Physician: BRETT CAZARES MD Ordered by: NIURKA FRIEND MD Report #: [id number] Location: [facility] Room/Bed: [facility] Procedure: 8622-7894 US/THORACENTESIS/US GUIDED Exam Date: 05/09/19 Exam Time: [...] erile bandage was applied. Catheter placed: 5F [facility] Post-drainage hemithorax findings: Small pleural effusion Additional [...] PM Dictated By: KEVIN BANDA MD 53 COPY TO: RUPALI FRIEND MD Body Fluid Lactate Gbbteubluuwaq1421-77-29 15:04:00* Test Item Value Reference Range Interpretation Comments Body Fluid Lactate Dehydrogenase (test code = 338232802) 234 No reference range has been established for this specimen type.[facility] AustinCHES SINGLE (NOT PORTABLE)2019-05-09 13:27:00 [place] [address] Patient Name: JOSHUA WHEELER MR #: [id number] : 1960 Age/Sex: 58/M Req #: [id number] Adm Physician: BRETT CAZARES MD Ordered by: BRETT CAZARES MD Report #: [id number] Location: MED/SURG2 Room/Bed: [facility] Procedure: 5356-2137 DX/CHEST SINGLE (NOT PORTABLE) Exam Date: Exam [...] COPY TO: BRETT CAZARES MD Vitamin B12 Juucz0243-09-58 08:15:00* Test Item Value Reference Range Interpretation Comments Vitamin B12 Level (test code = 18146-5) 326 213816 [facility] AustinFerritin2020-01-09 07:31:00* Test Item Value Reference Range Interpretation Comments Ferritin (test code = 2276-4) > 2000.00 21.81-274.66 [facility] AustinTriglycerides Ixnqk3505-07-92 06:11:00* Test Item Value Reference Range Interpretation Comments Triglycerides Level (test code = 2571-8) 95 0-149 [facility] AustinCholesterol Ygqnz4789-40-82 06:11:00* Test Item Value Reference Range Interpretation Comments Cholesterol Level (test code = 2093-3) 127 0-199 Less than 200 mg/dL Low Qkxc133 - 239 mg/dL Borderline Hqvr898 m g/dl and greater High Risk [facility] AustinLDL Qlmlsxkjyed0247-95-93 06:11:00* Test Item Value Reference Range Interpretation Comments LDL Cholesterol (test code = 2089-1) 82 60-130 [facility] AustinHDL Jzatsxxnekl5037-79-91 06:11:00* Test Item Value Reference Range Interpretation Comments HDL Cholesterol (test code = 2085-9) 26 40-60 [facility] AustinCholesterol/HDL Vdubi7880-58-86 06:11:00 * Test Item Value Reference Range Interpretation Comments Cholesterol/HDL Ratio (test code = 9830-1) 4.9 3.9-4.7 [facility] AustinCHEST 2 DYMWB6663-83-34 17:40:00 [facility] [address] [place] [address] Patient Name: JOSHUA WHEELER MR #: [id number] : 1960 Age/Sex: 58/M Req #: [id number] Adm Physician: Ordered by: NIURKA FRIEND MD Report #: [id number] Location: ER Room/Bed: Procedure: 0957-1417 D X/CHEST 2 VIEWS Exam Date: 05/07/19 [...] MD CHEST SINGLE (NOT PORTABLE) 2019-03-24 18:43:00 [place] [address] Patient Name: JOSHUA WHEELER MR #: [id number] : 1960 Age/Sex: 58/M Req #: [id number] Adm Physician: Ordered by: HUNTER HEARD MD Report #: [id number] Location: ER Room/Bed: Procedure: 0620-6052 DX/CHEST SINGLE (NOT PORTABLE) Exam Date: 03/24/19 Exam Time: 1756 REPORT STATUS: Sign ed EXAMINATION: CHEST SINGLE (NOT PORTABLE) INDICATION: E RMD ORDER [id number] 1757 Y COMPARISON: Chest radiograph 2018 FINDINGS: [...] on 03/24/191844 COPY TO: HUNTER HEARD MD CHEST SINGLE (PORTABLE)2018-09-28 06:40:00 [place] [address] Patient Name: JOSHUA WHEELER MR #: [id number] : 1960 Age/Sex: 57/M Req #: [id number] Adm Physician: WILNER GRIMALDO MD Ordered by: BRIE KRAMER NP Report #: [id number] Location: [facility] Room/Bed: [facility] Procedure: 5629-8852 D X/CHEST SINGLE (PORTABLE) Exam Date: Exam [...] LOREE on 09/28/18641 COPY TO: BRIE KRAMER MANAGEMENT AND BUDGET ANALYST CHEST 2 EHFZP7984-54-76 16:22:00 [place] [address] Patient Name: JOSHUA WHEELER MR #: [id number] : 1960 Age/Sex: 57/M Req #: [id number] Adm Physician: Ordered by: SOUMYA SEGOVIA MD Report #: [id number] Location: ER Room/Bed: Procedure: 1839-0291 DX/CHEST 2 VIEWS Exam Date: 09/27/18 Exam Time: 1515 REPORT STATUS: Signed EXAMI NATION: [place] and [...] Aragon M.D. on 09/27/2018 4:26 PM Dictated By: KEN ARAGON MD 25 Transcribed By: LOREE on 09/27/181625 COPY TO: SOUMYA SEGOVIA MD CHEST SINGLE (PORTABLE)2018-07-08 10:09:00 [place] [address] Patient Name: JOSHUA CACERES MR #: [id number] : 1960 Age/Sex: 57/M Req #: [id number] Adm Physician: Ordered by: AISHA NOVOA MD Report #: [id number] Location: ER Room/Bed: Procedure: 5654-4023 DX/SRIDEVI ST SINGLE (PORTABLE) Exam Date: 07/08/18 Exam Time: 0950 REPORT STATUS: Signed EXAM: CHEST SINGLE (PORTABLE), AP Portable DATE: 07/08/2018 Time stamp on exam: 9:40 AM INDICATION: Shortness of breath with dizziness COMPARISON: 06/28/2018 FINDINGS: LINES/TUBES: Tunneled right IJ hemodialysis catheter in appropriate position. LUNGS: Mild pulmonary vascular congestion. PLEURA: Improve ment in the left pleural effusion. Persistent right pleural effusion present. HEART AND MEDIASTINUM: Normal size and contour. BONES AND SOFT TISSUES: No acute findings. IMPRESSION: Mild pulmonary vascular congestion with persistent right pleural effusion and improved left pleural effusion Sign ed by: Dr. Tammi Anderson DO on 07/08/2018 10:11 AM Dictated By: TAMMI SAAB DO 1011 Transcribe d By: LOREE on 07/08/18 1011 COPY TO: AISHA NOVOA MD CHEST 2 KBVXE0473-13-66 18:15:00 [place] [address] Patient Name: JOSHUA CACERES MR #: [id number] : 1960 Age/Sex: 57/M Req #: [id number] Adm Physician: DILLAN FAUSTIN MD Ordered by: MESERET MORE MD Report #: [id number] Location: MED/SURG Room/Bed: [facility] Procedure: [id number] DX/CHEST 2 VIEWS Exam Date: 06/28/18 Exam Time: 1734 REPORT STATUS: Signed EXAMINATION: CHEST 2 VIEWS INDICATION: f/u pleural effusion [id number] COMPARISON: Chest radiograph 06/19/2018 FINDINGS: PA and lateral views TUBES and LINES: Right IJ central [...] TO: MESERET MORE MD CHEST XRAY POST [id number] 21:08:00 [place] [address] Patient Name: JOSHUA CACERES MR #: [id number] : 1960 Age/Sex: 57/M Req #: [id number] Adm Physician: DILLAN FAUSTIN MD Ordered by: TAMMI ANDERSON eport #: [id number] Location: MED/SURG Room /Bed: [facility] Procedure: [id number] DX/CHEST X RAY POST PROCEDURE Exam Date: Exam Time: REPORT STATUS: Signed EXAMINATION: CHEST XRAY POST PROCEDURE INDICATION: small pneumo apical; follow-up Y COMPARISON: 06/19/2018 FINDINGS: Stable right internal [...] 113 COPY TO: TAMMI ANDERSON DO IR [id number] 16:40:00 [facility] [address] [place] [address] Patient Name: JOSHUA CACERES MR #: [id number] : 1960 Age/Sex: 57/M Req #: [id number] Adm Physician: DILLAN FAUSTIN MD Ordered by: MESERET MORE MD Report #: [id number] Location: MED/SURG Room/Bed: [facility] Procedure: [id number] DX/IR CONS ULT Exam Date: Exam Time: REPORT STATUS: Signed PROCEDURE: ULTRASOUND GUIDED THORA CENTESIS COMPARISON: None. INDICATIONS: Bilateral pleural effusions F INDINGS: After informed consent was obtained, the patient was placed in the sitting position and preliminary ultrasound of the posterior chest identified a safe route into the right pleural effusion. The overlying skin was prepped and draped in usual sterile [...] ordered. 3. Specimen was sent to the aboratory for analysis. Tammi Anderson D.O. Dictated by: Tammi donaldson D.O. on 06/19/2018 at 16:40 Electronically approved by: Tammi saab D.O. on 06/19/2018 at 16:40 Dictated By: TAMMI ANDERSON DO 1640 Transcribed By: Marisol PEREZ on 06/19/18 1640 COPY TO: MESERET MORE MD THORACENTESIS/US [id number] 16:40:00 [place] [address] Patient Name: JOSHUA CACERES MR #: [id number] : 1960 Age/Sex: 57/M Req #: [id number] Adm Physician: DILLAN FAUSTIN MD Ordered by: MESERET MORE MD Report #: [id number] Location: MED/SURG Room/Bed: [facility] Procedure: [id number] US/THORACE NTESIS/US GUIDED Exam Date: Exam Time: [...] at 16:40 Electronically approved b y: Tammi Andreson D.O. on 06/19/2018 at 16:40 Dictated By: DEVEN ANDERSON DO 1640 Roxie scribed By: ANDREW on 06/19/18 1640 COPY TO: MESERET MORE MD RENAL RETROPERITONEAL [id number] 16:40:00 [place] [address] Patient Name: JOSHUA CACERES MR #: [id number] : 1960 Age/Sex: 57/M Req #: [id number] Adm Physician: DILLAN FAUSTIN MD Ordered by: ANGEL NARAYAN, VAHID NARAYAN Report #: [id number] Location: MED/SURG Room/Bed: [facility] Procedure: [id number] US/US ELLIOTT AL RETROPERITONEAL COMP Exam Date: [...] Transcribed By: LOREE on 06/19/181641 COPY TO: VAHID ORTIZ CHEST XRAY POST [id number] 16:29:00 [place] [address] Patient Name: JOSHUA CACERES MR #: [id number] : 1960 Age/Sex: 57/M Req #: [id number] Adm Physician: DILLAN FAUSTIN MD Ordered by: TAMMI ANDERSON DO Report #: [id number] Location: MED/SURG Room/Bed: [facility] Procedure: [id number] DX/CHEST X RAY POST PROCEDURE Exam Date: Exam Time: REPORT STATUS: Signed PROCEDURE: CHEST XR AY POST PROCEDURE COMPARISON: [facility], , CHEST 2 VIEWS, 06/19, 6:29. INDICATIONS: POST [...] COPY TO: DEVEN ANDERSON DO CHEST 2 [id number] 07:06:00 [place] [address] Patient Name: JOSHUA CACERES MR #: [id number] : 1960 Age/Sex: 57/M Req #: [id number] Adm Physician: DILLAN FAUSTIN MD Ordered by: MESERET MORE MD Report #: [id number] Location: MED/SURG Room/Bed: [facility] Procedure: [id number] DX/CHEST 2 VIEWS Exam Date: 06/19/18 Exam Time: 0638 REPORT STATUS: Signed EXAMINATION: PA and lateral views of the chest. COMPARISON: CT chest 06/18/2018 CLINICA L HISTORY: Evaluate pleural effusions DISCUSSION: Interval decre ase in now moderate right and small left pleural effusions relative to 06/18/19 19. Stable position of right IJ tunneled hemodialysis [...] COPY TO: MESERET MORE MD CT CHEST [id number] 18:01:00 [place] [address] Patient Name: JOSHUA CACERES MR #: [id number] : 1960 Age/Sex: 57/M Req #: [id number] Adm Physician: DILLAN FAUSTIN MD Ordered by: DILLAN FAUSTIN MD Report #: [id number] Location: MED/SURG Room/Bed: [facility] Procedure: [id number] CT/CT CHEST W O Exam Date: Exam [...] DILLAN FAUSTIN MD SPECIAL PROCEDURE IN CATH [id number] 14:38:00 [place] [address] Patient Name: JOSHUA CACERES MR #: [id number] : 1960 Age/Sex: 57/M Req #: [id number] Adm Physician: DILLAN FAUSTIN MD Ordered by: SHELLY HOOPER MD Report #: [id number] Location: MED/SURG Room/Bed: [facility] Procedure: [id number] IR/ SPECIAL PROCEDURE IN IMPROVEMENT MANAGER Exam Date: Exam Time: REPORT STATUS: Signed PROCEDUR E: PLACEMENT OF RIGHT IJ TUNNELED HEMODIALYSIS CATHETER WITH ULTRASOUND AND FL UOROSCOPIC GUIDANCE INDICATION: Need for dialysis access. OPERATORS: Liz Orozco MD RADIATION EXPOSURE: Fluoroscopy Time: 0.6 minutes Dose area product (DAP): 66.5 cGycm2 CONSENT: The [...] 2:40 PM Dictated By: LIZ OROZCO MD 110 Transcribed By: LOREE on 06/20/18 110 COPY TO: SHELLY HOOPER MD IR [id number] 14:38:00 [place] [address] Patient Name: JOSHUA CACERES MR #: [id number] : 1960 Age/Sex: 57/M Req #: [id number] Adm Physician: DILLAN FAUSTIN MD Ordered by: SHELLY HOOPER MD Report #: [id number] Location: MED/SURG Room/Bed: [facility] Procedure: [id number] DX/ IR CONSULT Exam Date: Exam Time: REPORT STATUS: Signed PROCEDURE: PLACEMENT OF RIG HT IJ TUNNELED HEMODIALYSIS CATHETER WITH ULTRASOUND AND FLUOROSCOPIC GUIDANCE INDICATION: Need for dialysis access. OPERATORS: Liz Orozco MD RADIATION EXPOSURE: Fluoroscopy Time: 0.6 minutes Dose area product (DAP): 66.5 cGycm2 CONSENT: The [...] anesthesia. Under continuous sonographic guidance, the right fashion buying internship al jugular vein was accessed using a 21 G micropuncture needle. Permanent ultr asound image was stored. The access needle was exchanged for a 5 Fr micropunct ure sheath. An 0.035'' Amplatz wire was advanced into the IVC to secure acces s. The venotomy site was dilated. Appropriate measurements were made using t 7 Fr dilator. Attention was then turned [...] 2:40 PM Dictated By: LIZ OROZCO MD 110 Transcribed By: LOREE on 06/20/18 110 COPY TO: SHELLY HOOPER MD CHEST SINGLE (PORTABLE)2018-06-17 20:40:00 [place] [address] Patient Name: JOSHUA CACERES MR #: [id number] : 1960 Age/Sex: 57/M Req #: [id number] Adm Physician: Ordered by: DANYELLE ALVAREZ NP Report #: [id number] Location: ER Room/Bed: Procedure: [id number] DX/SRIDEVI ST SINGLE (PORTABLE) Exam Date: 06/17/18 Exam [...]
[2019-09-24] MEDS ORDERED: ONDANSETRON HCL INJ 2MG/ML 2ML 2 MG/ML VIAL IV PRN (03:45)
[2019-09-24] MEDS ORDERED: DEXTROSE 50% SYRINGE 50 ML IV PRN (03:45)
--- NOTE | 2019-09-24 06:10 | NUR ---
REMOVED PATIENT CAPRICE DUARTE, CARDIAC MARKERS EVERY [address] HOOPER
--- NOTE | 2019-09-24 06:48 | NUR ---
REPORT GIVEN TO MARLENI VASQUEZ
[2019-09-24] MEDS: INSULIN REGULAR, HUMAN 100 UNIT/1 ML 3ML VIAL SQ SCH ×4 (08:27→21:00)
[2019-09-24] MEDS ORDERED: CEFEPIME 2 GM/NS 0.9% 100 ML 100 ML IV SCH (10:00)
[2019-09-24 10:20] LABS: % IRON SATURATION 30 % (15-50); IRON 49 ug/dL (65-175); TOTAL IRON BINDING CAPACITY 165 ug/dL (261-478); TRANSFERRIN 118 mg/dL (174-364)
[2019-09-24 11:59] VITALS: BP 163/64
--- NOTE | 2019-09-24 12:04 | NUR ---
MD Rosendo VAIL INTO SEE PT, DISCUSSED POC
--- NOTE | 2019-09-24 12:25 | NUR ---
MD ORTIZ INTO SEE PT, DISCUSSED POC, ORDERS NOTED FOR DIALYSIS, RN SPOKE WITH LJ WITH DIALYSIS, MADE AWARE OF ORDER FOR DIALYSIS
[2019-09-24 12:49] LABS: CREATINE KINASE 71 IU/L (30-200)
[2019-09-24] MEDS ORDERED: SODIUM CHLORIDE 0.9% 250ML 250 ML IV ONE (12:50)
--- NOTE | 2019-09-24 15:29 | NUR ---
PT HAD LARGE BM, BLOOD VISIBLE, SPOKE WITH MD Rosendo VAIL, MADE AWARE OF PT C/O PAIN AND VISIBLE BLOOD IN STOOL, ORDERS NOTED, HOME MEDS CONTINUED
[2019-09-24] MEDS ORDERED: ACETAMINOPHEN/CODEINE 300MG - 30MG TAB PO PRN (15:30)
[2019-09-24 15:45] VITALS: BP 181/74
[2019-09-24] MEDS: TRAMADOL HCL 50 MG TAB PO PRN (15:50)
--- NOTE | 2019-09-24 15:58 | NUR ---
SPOKE WITH DIALYSIS NURSE, STATES WILL BE ANOTHER 3 HOURS BEFORE THEY WILL BE HERE TO DIALYSIS, PT MADE AWARE
[2019-09-24 16:09] VITALS: BP 181/74
--- NOTE | 2019-09-24 16:46 | Consultation ---
DATE OF CONSULTATION: Pulmonary Consultation Patient of Dr. Colt Lockhart, Dr. Rivas, Dr. Fraire HISTORY OF PRESENT ILLNESS: Unfortunate 58-year-old gentleman with a history of end-stage renal disease, pleural scars after decortication for trapped lung, history of hypertension, diabetes, admitted with hypoglycemia. In the [facility], he was given glucagon. EMS reports a blood sugar of 105. He is currently awake and alert, though not able to eat breakfast. ALLERGIES: HE HAS NO KNOWN ALLERGIES. MEDICATIONS: Have included Tylenol 3, clonidine, losartan, Megace, metoprolol, nifedipine, tizanidine, Lidoderm patch, and tramadol. He has a left AV fistula. He had a chronic chest tube which has been removed. SOCIAL HISTORY: Nonsmoker. No alcohol. Born in [facility]. PHYSICAL EXAMINATION: VITAL SIGNS: Temperature 98.8, pulse 75, respirations 18, blood pressure 157/60. GENERAL: Frail white male, in no acute distress. Somewhat lethargic. HEAD: Normocephalic, atraumatic and some temporal wasting. LUNGS: Diminished breath sounds but clear. HEART: Regular rhythm. ABDOMEN: Nontender. EXTREMITIES: Nonedematous. AV fistula left arm. PLAN: Plan is to cautiously resume antihypertensive medications, sliding scale insulin low dose, antibiotics for therapy of urinary tract infection. Check serum iron. His hemoglobin is 7.1. Evidence of pyuria and proteinuria. Suspect some iron deficiency in addition to anemia of chronic disease. Thank you for this kind referral. John White MD DS/MODL /[id number]
[2019-09-24 16:55] LABS: CREATINE KINASE 72 IU/L (30-200)
[2019-09-24] MEDS ORDERED: CLONIDINE HCL 0.1 MG TAB PO SCH ×2 (17:00→21:00)
[2019-09-24] MEDS ORDERED: NIFEDIPINE CR 30 MG TAB PO SCH (17:00)
--- NOTE | 2019-09-24 17:19 | NUR ---
PT TOLERATED DINNER, HS SNACK AT BEDSIDE PER MD ORDER, STATES PAIN HAS IMPROVED TO BOTTOM, CALL LIGHT LIGHT WITHIN REACH
--- NOTE | 2019-09-24 18:52 | Consultation ---
DATE OF CONSULTATION: 09/24/2019 HISTORY OF PRESENT ILLNESS: A 58-year-old gentleman with failing health, multiple comorbidities in and out of hospital, admitted with hypertension and anemia, feeling very tired, weak and short of breath. He was just discharged from [facility], went home, went to the Dialysis Clinic. He is on a Sunday, Sunday, and Sunday dialysis schedule. Has prior history of hypertensive urgency, end-stage renal disease, multiple comorbidities, maintained at home on losartan, Megestrol, nifedipine and clonidine. SOCIAL HISTORY: The patient is . Does not smoke or drink. ALLERGIES: NO APPARENT DRUG ALLERGIES. CURRENT MEDICATIONS: The patient is on cefepime received one time dose, also on 2 g IV q.8h, which I will add it and adjust to q.24. He is on clonidine 0.1 p.o. b.i.d., losartan 100 mg daily, metoprolol 50 mg daily, ondansetron p.r.n., and regular insulin. FAMILY HISTORY: Significant for diabetes. PAST MEDICAL HISTORY: As above plus history of hypertension, diabetes, end-stage renal disease, status post AV fistula, had a tunneled catheter right side, prior history of GI bleed, and multiple comorbidities. He had chronic right-sided effusion with infiltrates, had a video-assisted thoracotomy, had to have chest tube placed, which was then subsequently removed. Followed by Dr. Freeman. REVIEW OF SYSTEMS: Current review of systems is negative for diarrhea, nausea, and vomiting. He denies any hematemesis or melena, but feels very tired, short of breath. Denies cough. Denies headache or fever. PHYSICAL EXAMINATION: GENERAL: Ill-looking gentleman, sitting up, oriented x3 and alert. VITAL SIGNS: Blood pressure 163/64, pulse is 76, afebrile, oxygen saturation 100%. HEAD AND NECK: Cornea clear. Oral mucosa moist. Neck veins distended. LUNGS: Decreased air entry both bases. Scattered rales. HEART: S1, S2 audible, 2 to 3/6 ejection systolic murmur at the left sternal border. ABDOMEN: Otherwise soft, nontender. No apparent visceromegaly. EXTREMITIES: Lower extremity examination shows no edema. LABORATORY TESTS: Noted, has a white count of 10.3, hemoglobin 7.1. Potassium last checked was 4.8. IMPRESSION: 1. Underlying end-stage renal disease. 2. Anemia multifactorial. 3. Fluid overload. 4. Bilateral pleural effusion. 5. End-stage renal disease. 6. Failure to thrive. PLAN: 1. Hemodialysis. 2. Transfuse packed RBCs. 3. Stool guaiacs. 4. Fluid restriction. 5. Renal diet. 6. Phosphorus binders. 7. Blood pressure control. 8. Please see orders. Gerson Rivas MD SAK/MODL /[id number]
[2019-09-24] MEDS ORDERED: SODIUM CHLORIDE 0.9% 1000ML 1,000 ML IV SCH (19:30)
--- NOTE | 2019-09-24 20:00 | NUR ---
Dialysis started. Patient is still weak but responsive.
[2019-09-24 20:47] VITALS: BP 181/74
[2019-09-24 20:49] VITALS: BP 187/90
[2019-09-24] MEDS: TIZANIDINE HCL 4 MG TAB PO SCH (21:00)
[2019-09-24] MEDS: NIFEDIPINE CR 30 MG TAB PO SCH ×2 (21:14→21:24)
--- NOTE | 2019-09-24 21:25 | NUR ---
Bp still High per dialysis nurse. Vital signs rechecked 203/82 mmhg. OK 87 b/min. Antihypertensive medication given per dialysis nurse.
--- NOTE | 2019-09-24 21:50 | NUR ---
Verified first Unit of PRBC with Dialysis Nurse Deanna.
[2019-09-24] MEDS ORDERED: SODIUM CHLORIDE 0.9% 250ML 250 ML ONE (21:53)
--- NOTE | 2019-09-24 22:20 | NUR ---
First Unit of blood completed patient has no reaction at this time.
--- NOTE | 2019-09-24 22:30 | NUR ---
Second Unit of blood verified with Dialysis Nurse Deanna.
--- NOTE | 2019-09-24 23:00 | NUR ---
patient blood pressure is still high. Patient is alert and oriented no complains. Paged Dr. Rosendo Lockhart. Waiting for call back
--- NOTE | 2019-09-24 23:00 | NUR ---
second unit of blood completed. Patient is alert. No complain at this time.
[2019-09-24 23:51] VITALS: BP 225/90
[2019-09-24] MEDS ORDERED: CLONIDINE HCL 0.1 MG TAB PO STA (23:53)
--- NOTE | 2019-09-24 23:58 | NUR ---
New orders received from Dr. Rosendo Lockhart to give Catapres 0.1 mg now then increase Catapres to 0.2 mg TID.
--- NOTE | 2019-09-24 23:59 | NUR ---
No PRN medication for High Blood Pressure per Dr. Rosendo Lockhart.
--- NOTE | 2019-09-25 | NUR ---
HEMODIALYSIS COMPLETED AND TOLERATED BY PATIENT.
--- NOTE | 2019-09-25 00:08 | NUR ---
Patient is taking snacks at this time.
[2019-09-25 04:50] VITALS: BP 195/86
[2019-09-25 05:35] LABS: BASOPHILS % 0.5 % (0.0-1.0); EOSINOPHILS # (AUTO) 0.3 (0.0-0.4); EOSINOPHILS % 3.2 % (0.0-6.0); HEMATOCRIT 29.4 % (38.2-49.6); HEMOGLOBIN 9.2 g/dL (14.0-18.0); LYMPHOCYTES # (AUTO) 0.7 (1.0-3.2); LYMPHOCYTES % 8.8 % (18.0-39.1); MEAN CORPUSCULAR HEMOGLOBIN 28.7 pg (28-32); MEAN CORPUSCULAR HGB CONC 31.3 g/dL (31-35); MEAN CORPUSCULAR VOLUME 91.6 fL (81-99); MONOCYTES # (AUTO) 0.7 (0.2-0.8); MONOCYTES % 8.7 % (4.4-11.3); NEUTROPHILS # (AUTO) 6.1 (2.1-6.9); NEUTROPHILS % 78.4 % (38.7-80.0); PLATELET COUNT 195 x10e3/uL (140-360); RED BLOOD COUNT 3.21 x10e6/uL (4.3-5.7); RED CELL DISTRIBUTION WIDTH 17.9 % (11.7-14.4)
[2019-09-25 05:58] LABS: ALBUMIN 2.5 g/dL (3.5-5.0); ALBUMIN/GLOBULIN RATIO 0.5 (0.8-2.0); ANION GAP 16.3 mmol/L (8-16); CALCIUM 8.4 mg/dL (8.4-10.2); CREATININE, SERUM 3.16 mg/dL (0.72-1.25); POTASSIUM 4.3 mmol/L (3.5-5.1)
[2019-09-25] MEDS: CEFEPIME 2 GM/NS 0.9% 100 ML 100 ML IV SCH (07:55)
[2019-09-25] MEDS: LIDOCAINE 4% PATCH TP SCH (07:56)
[2019-09-25] MEDS: MEGACE 400MG/ 10ML CUP PO SCH (07:56)
[2019-09-25 08:00] VITALS: BP 141/58
[2019-09-25] MEDS: CLONIDINE HCL 0.2 MG TAB PO SCH ×3 (08:01→20:36)
[2019-09-25] MEDS: LOSARTAN POTASSIUM 100 MG TAB PO SCH (08:02)
[2019-09-25] MEDS: NIFEDIPINE CR 30 MG TAB PO SCH ×2 (08:03→20:36)
[2019-09-25] MEDS: METOPROLOL SUCCINATE 50 MG TAB XL PO SCH (08:03)
[2019-09-25] MEDS ORDERED: SODIUM CHLORIDE 0.9% 250ML 250 ML ONE (08:12)
[2019-09-25 08:25] VITALS: BP 141/58
[2019-09-25] MEDS: INSULIN REGULAR, HUMAN 100 UNIT/1 ML 3ML VIAL SQ SCH ×4 (08:56→21:00)
[2019-09-25] MEDS ORDERED: LIDOCAINE 4% TOP SCH (09:00)
[2019-09-25] MEDS ORDERED: ONDANSETRON HCL 4 MG ORAL DISINTEGRATING TAB PO PRN (10:45)
--- NOTE | 2019-09-25 10:56 | Diagnostic Imaging Report ---
EXAMINATION: CHEST SINGLE (PORTABLE) INDICATION: Shortness of breath COMPARISON: Chest radiograph 09/24/2019 FINDINGS: LINES/TUBES:EKG leads overlie the chest. LUNGS:The lungs are moderately inflated. Right basilar patchy opacities appear unchanged. PLEURA:Small bilateral pleural effusions. No pneumothorax. MEDIASTINUM:The cardiomediastinal silhouette appears unchanged in size and shape. BONES/SOFT TISSUES:No acute osseous injury. ABDOMEN:No free air under the diaphragm. IMPRESSION: No significant interval change. Signed by: Chandrakant Leija MD on 09/25/2019 10:53 AM
[2019-09-25 11:46] VITALS: BP 134/54
[2019-09-25] MEDS: PANTOPRAZOLE SOD 40 MG TABEC PO SCH (11:50)
--- NOTE | 2019-09-25 16:02 | NUR ---
SPOKE WITH DR VAIL AND HE STATES PT IS READY TO BE SENT BACK TO [facility], LET HIM KNOW THAT I HAVE TO GET THE COVID 19 RESULTS PRIOR TO DISCHARGE, CALLED LAB AND WAS TOLD IT SHOULD BE IN LATE THIS EVENING OR TOMORROW MORNING. FAXED CLINICALS TO [facility], GOT VERBAL PERMISSION TO FAX AND EDUCATED ABOUT IMM CALLED [facility] AND SHE AGREES. IN MORNING WILL FAX CLINICALS AND LABG RESULTS TO [facility] TO BE ABLE TO COMPLETE TRANSFER IN AM.
[2019-09-25 16:19] VITALS: BP 132/52
--- NOTE | 2019-09-25 19:30 | NUR ---
received report from day nurse. patient is resting comfortably in the bed. bed is in the lowest position and call light is within reach. will continue to monitor patient.
[2019-09-25 20:00] VITALS: BP 131/57
[2019-09-25] MEDS: TIZANIDINE HCL 4 MG TAB PO SCH (20:36)
[2019-09-26] VITALS: BP 145/66
[2019-09-26 00:10] VITALS: BP 131/57
[2019-09-26 04:00] VITALS: BP 140/62
--- NOTE | 2019-09-26 06:41 | NUR ---
patient is resting in the bed, bed is in lowest position and call light is within reach.
--- NOTE | 2019-09-26 07:56 | NUR ---
FAXED TO SNG AND MED RESORT THE COVID RESULTS, LET FACILITY KNOW AND WAITING ON BED ASSIGNMENT.
[2019-09-26 08:00] VITALS: BP 143/68
--- NOTE | 2019-09-26 08:11 | NUR ---
[facility] FACILITY DISCHARGE INFORMATION PATIENT HAS BEEN ACCEPTED TO: NAME: [facility] ADDRESS:[address] [facility] [address] ACCEPTING MD: Rosendo VAIL ROOM: GET WHEN CALL REPORT. NURSE CALL REPORT TO: [phone] IMM SIGNED AND OBTAINED (if applicable): IMM THE FOLLOWING DOCUMENTS MUST ACCOMPANY PATIENT FOR TRANSFER: COPIED CHART: PACKET
[2019-09-26] MEDS: MEGACE 400MG/ 10ML CUP PO SCH (09:00)
[2019-09-26] MEDS: INSULIN REGULAR, HUMAN 100 UNIT/1 ML 3ML VIAL SQ SCH ×3 (09:27→16:12)
[2019-09-26] MEDS ORDERED: SERTRALINE HCL 50 MG TAB PO SCH (09:30)
[2019-09-26] MEDS ORDERED: OXAZEPAM 10 MG CAP PO PRN (09:30)
[2019-09-26 12:00] VITALS: BP 171/79
[2019-09-26] MEDS: CEFEPIME 2 GM/NS 0.9% 100 ML 100 ML IV SCH (12:40)
[2019-09-26] MEDS: CLONIDINE HCL 0.2 MG TAB PO SCH ×2 (12:40→16:14)
[2019-09-26] MEDS: LOSARTAN POTASSIUM 100 MG TAB PO SCH (12:41)
[2019-09-26] MEDS: NIFEDIPINE CR 30 MG TAB PO SCH (12:41)
[2019-09-26] MEDS: METOPROLOL SUCCINATE 50 MG TAB XL PO SCH (12:41)
[2019-09-26] MEDS: PANTOPRAZOLE SOD 40 MG TABEC PO SCH (12:42)
[2019-09-26] MEDS: LIDOCAINE 4% PATCH TP SCH (12:42)
[2019-09-26 16:00] VITALS: BP 186/77
[2019-09-26] MEDS: TRAMADOL HCL 50 MG TAB PO PRN (16:10)
--- NOTE | 2019-09-26 17:15 | NUR ---
Pt discharged to SNF at this time. Pt is aox3 and able to verbalize needs. Denies any pain at this time. Report called to nurse who will be taking care of him.
== END 2019-09-26 17:09 | DRG 640 ==
LOC: ER 00:58 → ERHOLD 03:35 → MED/SURG 11:29
PROC: 30230N1 Transfusion of Nonautologous Red Blood Cells into Peripheral Vein, Open Approach (ICD-10-PCS; principal; 2019-09-24)
PROC: 5A1D70Z Performance of Urinary Filtration, Intermittent, Less than 6 Hours Per Day (ICD-10-PCS; 2019-09-24)
PROC: 5A1D70Z Performance of Urinary Filtration, Intermittent, Less than 6 Hours Per Day (ICD-10-PCS; 2019-09-26)
DX: E87.70 Fluid overload, unspecified (principal); N18.6 End stage renal disease; I12.0 Hypertensive chronic kidney disease with stage 5 chronic kidney disease or end stage renal disease; J90 Pleural effusion, not elsewhere classified; N39.0 Urinary tract infection, site not specified; E11.649 Type 2 diabetes mellitus with hypoglycemia without coma; E11.22 Type 2 diabetes mellitus with diabetic chronic kidney disease; E11.65 Type 2 diabetes mellitus with hyperglycemia; Z99.2 Dependence on renal dialysis; R62.7 Adult failure to thrive; Z68.20 Body mass index [BMI] 20.0-20.9, adult; R41.82 Altered mental status, unspecified; T68.XXXA Hypothermia, initial encounter; D50.9 Iron deficiency anemia, unspecified; Z83.3 Family history of diabetes mellitus; Z11.59 Encounter for screening for other viral diseases
CPT/HCPCS: 36415; 70450; 71045; 80053; 81001; 82140; 82270; 82550; 82553; 82948; 83540; 83605; 84466; 84484; 85025; 86704; 86705; 86706; 86850; 86900; 86920; 87040; 87086; 87635; 90962; 93005; 97139; 99285; J1817; J2310; J7030; J7050; P9016

== ENCOUNTER 2019-09-29 10:46 | Observation (INO) | payer MEDICARE, OTHER ==
[~2019-09-29] VITALS: Ht 160 cm; Wt 53.5 kg
--- OUTSIDE RECORDS SUMMARY | 2019-09-29 10:50 | XMS REPORT | Clinical Summary ---
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 Name Role Phone Eber Bryant MD PCP [...] INFLUENZA VACCINE 11/29/2019 Results Not on fileafter 09/28/2018 Insurance Type Payer Benefit Subscriber ID Effective Phone Address Plan / Dates Group Exchange BCBS EXCHANGE BLUE xxxxxxxxxxxx 2015-P ADVANTAGE resent HMO EXCH [address] [place] (Home) [place] [id number] [employer] Third Self 1960 [address] [place] (Home) [place] [id number] Liability Advance Directives For more information, please contact: [phone] 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
--- OUTSIDE RECORDS SUMMARY | 2019-09-29 10:50 | XMS REPORT | Clinical Summary ---
Author Author INDIRA [facility] Address Unknown Phone Unavailable Care Team Providers Care Doughnut Batter Mixer Name Role Phone PCP Unavailable Allergies No [...] other type with com plication, unspecified whether long chain beamer insulin use; Anemia of renal disease; Hypertensive renal disease; Pre-transplant evaluation for chronic kidney disease 03/06/2019 Hospital Radiology Encounter Mireille Timmons MD Diabetes mellitus of other type with com plication, unspecified whether penitentiary insulin use; Anemia of renal disease; Hypertensive renal disease; Pre-transplant evaluation for chronic kidney disease 03/06/2019 Hospital Cardiology Encounter Mireille Timmons MD Diabetes mellitus of other type with com plication, unspecified whether penitentiary insulin use; Anemia of renal disease; Hypertensive renal disease; Pre-transplant evaluation for chronic kidney disease 03/06/2019 Hospital Cardiology Encounter Mireille Timmons MD Diabetes mellitus of other type with com plication, unspecified whether penitentiary insulin use; Anemia of renal disease; Hypertensive renal disease; Pre-transplant evaluation for chronic kidney disease 03/06/2019 Orders Only Mireille Harris MD 03/06/2019 Outside Orders Patti Huerta RN Anemia of renal disease (Primary Dx); Hypertensive renal disease; Pre-transplant evaluation for chronic kidney disease 03/05/2019 Orders Only Transplant Mireille Timmons MD Diabetes mellitus of other type with com plication, unspecified whether long chain beamer insulin use (HCC); Anemia of renal disease; Hypertensive renal disease; Pre-transplant evaluation for chronic kidney disease 12/17/2018 Hospital Encounter Mireille Timmons MD Diabetes mellitus of other type with com plication, unspecified whether long chain beamer insulin use (HCC); Anemia of renal disease; Hypertensive renal disease; Pre-transplant evaluation for chronic kidney disease 12/17/2018 Orders Only Mireille Harris MD Labrador, Florencia P, RN Diabetes mellitus of other type with com plication, unspecified whether long chain beamer insulin use (HCC) (Primary Dx); Anemia of [...] voicemail message and call back number in Kazakh.) 10/29/2018 Telephone Transplant Linsey Pryor 09/30/2018 Documentation Transplant Linsey Pryor 09/30/2018 Documentation Transplant after 09/28/2018 Social History Date Tobacco Use Types Packs/Day Years Used Never Smoker Sex Assigned at Date Recorded Not on file Industry Job Start Date Occupation Not on file Not on file Not on file Travel End Travel History Travel Start No recent travel history available. Last Filed Vital Signs Time Taken Vital Sign Reading 06/25/2019 4:25 PM [employer]AN[employer] OPERATIONS MANAGER Blood Pressure 178/87 06/25/2019 4:25 PM ETH[employer]OL OPERATIONS MANAGER Pulse 75 03/06/2019 12:43 PM ETH[employer]OL OPERATIONS MANAGER Temperature 36.9 C (98.5 F) 03/06/2019 12:43 PM ETHANOL OPERATIONS MANAGER Respiratory Rate 16 - Oxygen Saturation - - Inhaled Oxygen - Concentration 03/06/2019 12:43 PM ETHANOL OPERATIONS MANAGER Weight 59.2 kg (130 lb 8 oz) 03/06/2019 12:43 PM ETHANOL OPERATIONS MANAGER Height 174 cm (5' 8.5") 03/06/2019 12:43 PM ETHANOL OPERATIONS MANAGER Body Mass Index 19.55 Plan of Treatment Health Maintenance Due Date Last Done Comments COLON CANCER SCREENING 1960 COLONOSCOPY DIABETIC EYE EXAM 12/04/1969 DIABETIC FOOT EXAM 12/04/1969 HEMOGLOBIN A1C 06/19/2019 12/17/2018 MEDICARE ANNUAL WELLNESS 09/30/2019 (YEAR 2 or FIRST YEAR if no IPPE) PNEUMOCOCCAL VACCINE 2-64 Completed 06/28/2018, 10/03/2015 YEARS AT RISK INFLUENZA VACCINE Completed 02/11/2019 Procedures Comments Procedure Name Priority Date/Time Associated Diag nosis XR CHEST 2 VIEWS Routine 07/01/2019 Pleural effus ion 1:23 PM ETHANOL OPERATIONS MANAGER XR CHEST 2 VIEWS STAT 07/01/2019 Surgical foll ow-up care 11:56 AM ETHANOL OPERATIONS MANAGER TRANSFUSION SERVICE 03/07/2019 REPORT - SCAN 5:54 PM ETHANOL OPERATIONS MANAGER PERIPHERAL VASCULAR 03/06/2019 REPORT - SCAN 9:24 PM ETHANOL OPERATIONS MANAGER US ABDOMEN COMPLETE Routine 03/06/2019 Diabetes m ellitus of 11:40 AM ETHANOL OPERATIONS MANAGER other type with complication, unspecified whether long chain beamer insulin use Anemia of renal disease Hypertensive renal disease Pre-transplant evaluation for chronic kidney disease STRESS ECHO WITH CONTRAST Routine 03/06/2019 Diab etes mellitus of & TRACING 8:58 AM ETHANOL OPERATIONS MANAGER other type with complication, unspecified whether penitentiary insulin use Anemia of renal disease Hypertensive renal disease Pre-transplant evaluation for chronic kidney disease ECG 12-LEAD Routine 03/06/2019 Diabetes mellit us of 7:30 AM ETHANOL OPERATIONS MANAGER other type with complication, unspecified whether penitentiary insulin use Anemia of renal disease Hypertensive renal disease Pre-transplant evaluation for chronic kidney disease BLOOD TYPING, AUTOMATED Routine 03/06/2019 Diabet es mellitus of 6:58 AM ETHANOL OPERATIONS MANAGER other type with complication, unspecified whether penitentiary insulin use Anemia of renal disease Hypertensive renal disease Pre-transplant evaluation for chronic kidney disease PSA Routine 03/06/2019 Anemia of renal disease 6:58 AM ETHANOL OPERATIONS MANAGER Hypertensive renal disease Pre-transplant evaluation for chronic kidney disease LIPID PANEL Routine 03/06/2019 Diabetes mellit us of 6:58 AM ETH[employer]OL OPERATIONS MANAGER other type with complication, unspecified whether penitentiary insulin use Anemia of renal disease Hypertensive renal disease Pre-transplant evaluation for chronic kidney disease TRANSFUSION SERVICE 12/18/2018 REPORT - SCAN 6:04 PM CDT XR CHEST 2 VIEWS Routine 12/17/2018 Diabetes paramjit itus of 12:09 PM CDT other type with complication, unspecified whether penitentiary insulin use (HCC) Anemia of renal disease Hypertensive renal disease Pre-transplant evaluation for chronic kidney disease T SPOT TB Routine 12/17/2018 Diabetes mellit us of 11:23 AM CDT other type with complication, unspecified whether penitentiary insulin use (HCC) Anemia of renal disease Hypertensive renal disease Pre-transplant evaluation for chronic kidney disease HLA TYPING CI Routine 12/17/2018 Diabetes mellit us of 11:23 AM CDT other type with complication, unspecified whether penitentiary insulin use (HCC) Anemia of renal disease Hypertensive renal disease Pre-transplant evaluation for chronic kidney disease HLA TYPING CII Routine 12/17/2018 Diabetes mellit us of 11:23 AM CDT other type with complication, unspecified whether penitentiary insulin use (HCC) Anemia of renal disease Hypertensive renal disease Pre-transplant evaluation for chronic kidney disease CBC W/PLT COUNT & AUTO Routine 12/17/2018 Diabete s mellitus of DIFFERENTIAL 11:22 AM CDT other type with complication, unspecified whether long chain beamer insulin use (HCC) Anemia of renal disease Hypertensive renal disease Pre-transplant evaluation for chronic kidney disease DIRECT AHG (BETO)/DIRECT Routine 12/17/2018 Diabet es mellitus of ROBB 11:22 AM CDT other type with complication, unspecified whether penitentiary insulin use (HCC) Anemia of renal disease Hypertensive renal disease Pre-transplant evaluation for chronic kidney disease TYPE AND SCREEN, Routine 12/17/2018 Diabetes paramjit itus of AUTOMATED 11:22 AM CDT other type with complication, unspecified whether long chain beamer insulin use (HCC) Anemia of renal disease Hypertensive renal disease Pre-transplant evaluation for chronic kidney disease AB SPECIFICITY CLASS II Routine 12/17/2018 Diabet es mellitus of 11:22 AM CDT other type with complication, unspecified whether long chain beamer insulin use (HCC) Anemia of renal disease Hypertensive renal disease Pre-transplant evaluation for chronic kidney disease FLOW PRA CLASS II WITH Routine 12/17/2018 Diabete s mellitus of REFLEX TO ANTIBODY 11:22 AM CDT other type with SPECIFICITY complication, unspecified whether penitentiary insulin use (HCC) Anemia of renal disease Hypertensive renal disease Pre-transplant evaluation for chronic kidney disease HEMOGLOBIN A1C Routine 12/17/2018 Diabetes mellit us of 11:22 AM CDT other type with complication, unspecified whether penitentiary insulin use (HCC) Anemia of renal disease Hypertensive renal disease Pre-transplant evaluation for chronic kidney disease VARICELLA ZOSTER Routine 12/17/2018 Diabetes paramjit itus of ANTIBODY, IGG 11:22 AM CDT other type with complication, unspecified whether penitentiary insulin use (HCC) Anemia of renal disease Hypertensive renal disease Pre-transplant evaluation for chronic kidney disease URIC ACID Routine 12/17/2018 Diabetes mellit us of 11:22 AM CDT other type with complication, unspecified whether penitentiary insulin use (HCC) Anemia of renal disease Hypertensive renal disease Pre-transplant evaluation for chronic kidney disease RPR Routine 12/17/2018 Diabetes mellit us of 11:22 AM CDT other type with complication, unspecified whether penitentiary insulin use (HCC) Anemia of renal disease Hypertensive renal disease Pre-transplant evaluation for chronic kidney disease PT/APTT Routine 12/17/2018 Diabetes mellit us of 11:22 AM CDT other type with complication, unspecified whether long chain beamer insulin use (HCC) Anemia of renal disease Hypertensive renal disease Pre-transplant evaluation for chronic kidney disease PTH, INTACT Routine 12/17/2018 Diabetes mellit us of 11:22 AM CDT other type with complication, unspecified whether penitentiary insulin use (HCC) Anemia of renal disease Hypertensive renal disease Pre-transplant evaluation for chronic kidney disease PHOSPHORUS Routine 12/17/2018 Diabetes mellit us of 11:22 AM CDT other type with complication, unspecified whether penitentiary insulin use (HCC) Anemia of renal disease Hypertensive renal disease Pre-transplant evaluation for chronic kidney disease LACTATE DEHYDROGENASE Routine 12/17/2018 Diabetes mellitus of (LDH) 11:22 AM CDT other type with complication, unspecified whether penitentiary insulin use (HCC) Anemia of renal disease Hypertensive renal disease Pre-transplant evaluation for chronic kidney disease HIV-1 ANTIGEN WITH Routine 12/17/2018 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 11:22 AM CDT other type with complication, unspecified whether penitentiary insulin use (HCC) Anemia of renal disease Hypertensive renal disease Pre-transplant evaluation for chronic kidney disease HEPATITIS C ANTIBODY Routine 12/17/2018 Diabetes mellitus of 11:22 AM CDT other type with complication, unspecified whether penitentiary insulin use (HCC) Anemia of renal disease Hypertensive renal disease Pre-transplant evaluation for chronic kidney disease HEPATITIS B CORE Routine 12/17/2018 Diabetes paramjit itus of ANTIBODY, IGM 11:22 AM CDT other type with complication, unspecified whether long chain beamer insulin use (HCC) Anemia of renal disease Hypertensive renal disease Pre-transplant evaluation for chronic kidney disease HEPATITIS B SURFACE Routine 12/17/2018 Diabetes m ellitus of ANTIGEN 11:22 AM CDT other type with complication, unspecified whether long chain beamer insulin use (HCC) Anemia of renal disease Hypertensive renal disease Pre-transplant evaluation for chronic kidney disease HEPATITIS B SURFACE Routine 12/17/2018 Diabetes m ellitus of ANTIBODY 11:22 AM CDT other type with complication, unspecified whether long chain beamer insulin use (HCC) Anemia of renal disease Hypertensive renal disease Pre-transplant evaluation for chronic kidney disease GAMMA GLUTAMYL Routine 12/17/2018 Diabetes mellit us of TRANSFERASE (GGT) 11:22 AM CDT other type with complication, unspecified whether long chain beamer insulin use (HCC) Anemia of renal disease Hypertensive renal disease Pre-transplant evaluation for chronic kidney disease EBV ANTIBODY, IGM Routine 12/17/2018 Diabetes tyler litus of 11:22 AM CDT other type with complication, unspecified whether long chain beamer insulin use (HCC) Anemia of renal disease Hypertensive renal disease Pre-transplant evaluation for chronic kidney disease EBV ANTIBODY, IGG Routine 12/17/2018 Diabetes tyler litus of 11:22 AM CDT other type with complication, unspecified whether long chain beamer insulin use (HCC) Anemia of renal disease Hypertensive renal disease Pre-transplant evaluation for chronic kidney disease COMPREHENSIVE METABOLIC Routine 12/17/2018 Diabet es mellitus of PANEL 11:22 AM CDT other type with complication, unspecified whether long chain beamer insulin use (HCC) Anemia of renal disease Hypertensive renal disease Pre-transplant evaluation for chronic kidney disease CYTOMEGALOVIRUS ANTIBODY, Routine 12/17/2018 Diab etes mellitus of IGM 11:22 AM CDT other type with complication, unspecified whether penitentiary insulin use (HCC) Anemia of renal disease Hypertensive renal disease Pre-transplant evaluation for chronic kidney disease CYTOMEGALOVIRUS ANTIBODY, Routine 12/17/2018 Diab etes mellitus of IGG 11:22 AM CDT other type with complication, unspecified whether long chain beamer insulin use (HCC) Anemia of renal disease Hypertensive renal disease Pre-transplant evaluation for chronic kidney disease CBC W/PLT COUNT & AUTO Routine 12/17/2018 Diabete s mellitus of DIFFERENTIAL 11:22 AM CDT other type with complication, unspecified whether long chain beamer insulin use (HCC) Anemia of renal disease Hypertensive renal disease Pre-transplant evaluation for chronic kidney disease FLOW PRA CLASS I WITH Routine 12/17/2018 Diabetes mellitus of REFLEX TO ANTIBODY 11:22 AM CDT other type with SPECIFICITY complication, unspecified whether long chain beamer insulin use (HCC) Anemia of renal disease Hypertensive renal disease Pre-transplant evaluation for chronic kidney disease URINE CULTURE Routine 12/17/2018 Diabetes mellit us of 11:15 AM CDT other type with complication, unspecified whether long chain beamer insulin use (HCC) Anemia of renal disease Hypertensive renal disease Pre-transplant evaluation for chronic kidney disease after 09/28/2018 Results * XR chest 2 views (07/01/2019 1:23 PM ETHANOL OPERATIONS MANAGER) Only the most recent of 3 results within the time period is included. Specimen Narrative Performed At FINAL REPORT [facility] INDICATION: removed chest tube COMPARISON: Earlier same [...] Report Verified Date/Time: 0 13:56:42 Reading Location: [facility]iol[facility] Reading Room Procedure Note Interface, External Ris In - 07/01/2019 1:58 PM ETHANOL OPERATIONS MANAGER FINAL REPORT INDICATION: removed chest tube COMPARISON: Earlier same day TECHNIQUE: Frontal and lateral views of the chest. FINDINGS: Lungs and pleura: Right greater than left effusion and adjacent compressive atelectasis, not significantly changed Heart and mediastinum: Normal heart size. Unremarkable mediastinal contours. Osseous structures: No acute abnormality. Additional findings: None. Signed: Briana Black MD Report Verified Date/Time: 07/01/2019 13:56:42 Reading Location: [facility] Radiology Reading Room Performing Organization Address City/State/Zipcode Ph one Number [employer] RIS * TRANSFUSION SERVICE REPORT - SCAN (03/07/2019 5:54 PM ETHANOL OPERATIONS MANAGER) Only the most recent of 2 results within the time period is included. Narrative Performed At This result has an attachment that is n ot available. * PERIPHERAL VASCULAR REPORT - SCAN (03/06/2019 9:24 PM ETHANOL OPERATIONS MANAGER) Narrative Performed At This result has an attachment that is n ot available. * US abdomen complete (03/06/2019 11:40 AM ETHANOL OPERATIONS MANAGER) Specimen Narrative Performed At FINAL REPORT [email or web address] TECHNIQUE: Grayscale ultrasound of the abdomen. INDICATION: [...] Report Verified Date/Time: 9 13:29:38 Reading Location: [address] Reading Room Procedure Note Interface, External Ris In - 03/06/2019 1:31 PM ETHANOL OPERATIONS MANAGER FINAL REPORT TECHNIQUE: Grayscale ultrasound of the [...] Report Verified Date/Time: 03/06/2019 13:29:38 Reading Location: [address] Radiology Reading Room Performing Organization Address City/State/Zipcode Ph one Number GE RIS * STRESS ECHO With Contrast & Tracing (03/06/2019 8:58 AM ETHANOL OPERATIONS MANAGER) Ejection Fraction Est EF of >70% [facility] Specimen Narrative Performed At Stress Echocardiography Report [facility] Demographics [facility] Patient Name JOSHUA HULL Date of Study03/06/2019 [id number] Gender Male Visit Number [id number] Race Unknown [id number] Room NumberOP Number Date of Birth1960 Referring [...] Peak HR: 146 bpm HR BP Product: 25245 Peak BP: 210/93 mmHg Predicted HR: 161 [...] External Ris In - 03/06/2019 10:37 AM ETHANOL OPERATIONS MANAGER Stress Echocardiography Report Demographics Patient Name JOSHUA HULL Date of Study 03/06/2019 Gender Male Visit Number [id number] Race Unknown Room Number OP Number Date of 1960 Referring Physician Iain Marcus Age 58 year(s) [employer]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 Andrew Moreira RDCS Interpreting Kirby Prakash MD [...] Peak HR: 146 bpm HR BP Product: 32939 Peak BP: 210/93 mmHg Predicted HR: 161 [...] LVOT CI: 3.68 l/min/m^2 Performing Organization Address City/State[facility] Ph one Number [facility] ECHO HEART[facility] MKCKESSON CPACS * ECG 12 lead (03/06/2019 7:30 AM ETHANOL OPERATIONS MANAGER) Specimen Narrative Performed At Ventricular Rate 88 BPM GE MUSE Atrial Rate 88 BPM P-R Interval 188 ms QRS Duration 90 ms Q-T Interval 400 ms QTC Calculation(Bazett) 484 ms P Joshua 80 degrees R Joshua 81 degrees T Joshua 103 degrees Normal sinus rhythm Nonspecific T wave abnormality Prolonged QT Abnormal ECG No previous ECGs available Confirmed by MD Millan Roberto ([id number]) on 03/06/2019 2:35:16 PM Procedure Note Interface, External Ris In - 03/06/2019 2:35 PM ETHANOL OPERATIONS MANAGER Ventricular Rate 88 BPM Atrial Rate 88 BPM P-R Interval 188 ms QRS Duration 90 ms Q-T Interval 400 ms QTC Calculation(Bazett) 484 ms P Joshua 80 degrees R Joshua 81 degrees T Joshua 103 degrees Normal sinus rhythm Nonspecific T wave abnormality Prolonged QT Abnormal ECG No previous ECGs available Confirmed by MD Millan Roberto ([id number]) on 03/06/2019 2:35:16 PM Performing Organization Address City/[facility]/[place] Ph one Number GE MUSE * Blood typing, automated (03/06/2019 6:58 AM ETHANOL OPERATIONS MANAGER) ABO/RH AUTOMATED (BEAKER) O POSITIVE [facility] Specimen Blood Performing Organization Address City/[facility]/[place] Ph one Number [address] [address] [facility] * PSA (03/06/2019 6:58 AM ETHANOL OPERATIONS MANAGER) PSA 0.6 0.0 - 4.0 ng/mL [facility] Specimen Blood Performing Organization Address [facility] Ph one Number [address] [facility] * Lipid panel (03/06/2019 6:58 AM ETHANOL OPERATIONS MANAGER) Triglycerides 85 mg/dL [facility] Cholesterol 120 mg/dL [facility] HDL 39 mg/dL [facility] LDL Calculated 64 mg/dL [facility] Specimen Blood Narrative Performed At Triglyceride Reference Range: [facility] Low Risk <150 [facility] [id number] High Risk 200-499 Very High Risk>=500 Cholesterol Reference Range: Low Risk <200 [id number] High Risk>240 HDL Cholesterol Reference Range: Low Risk >=60 High Risk <40 LDL Cholesterol Reference Range: Optimal<100 Near [id number] Very High >=190 Performing Organization Address City/[facility] Ph one Number [facility] [address] [place], [place] [address] [facility] * HLA TYPING CII (12/17/2018 11:23 AM CDT) HLA-DR AG1 12 [facility] HLA-DR AG2 8 [facility] HLA-DR AG3-1 52 [facility] HLA-DQA1 AG 1-1 01 [facility] HLA-DQA1 AG 1-2 04 [facility] HLA-DQB1 AG 1-1 5 [facility] HLA-DQB1 AG 1-2 4 [facility] HLA-DPA1 AG 1-1 01 [facility] HLA-DPA1 AG 1-2 03 [facility] HLA-DPB1 AG 1-1 04:02 [facility] HLA-DPB1 AG 1-2 105:01 [facility] Specimen Blood Narrative Performed At Disclaimer: [facility] This test was developed and its perform ance characteristics determined by the [facility]. It has not been cleared or approved by the U.S. Food and Drug Administration. The FDA has determined that such clearance or approval is not necessary. This test is used for clinic al purposes. It should not be regarded as investigational or for research. [facility] is certified under the Clinical Laboratory Improvement Amendments of 19 88 (CLIA-88) as qualified to perform high complexity clinical laboratory testing. Performing Organization Address City/State/[facility] Ph one Number [facility] ONE [facility] [place], [place]: [id number], [place] [address] CLIA#[id number] CAP#[id number] UNOS#[id number] * HLA TYPING CI (12/17/2018 11:23 AM CDT) HLA-A AG1 68 [facility] HLA-A AG2 24 [facility] HLA-B AG1 42 [facility] HLA-B AG2 39 [facility] HLA-C AG1 8 [facility] HLA-C AG2 7 [facility] HLA-B BW1 6 [facility] HLA-B BW2 6 [facility] Specimen Blood Narrative Performed At Disclaimer: [facility] This test was developed and its perform ance characteristics determined by the [facility]. It has not been cleared or [...] complexity clinical laboratory testing. Performing Organization Address [facility] one Number [facility] ONE Sathya Dorman, MS: [id number], [place] [address] CLIA#[id number] CAP#[id number] UNOS#[id number] * T Spot TB (12/17/2018 11:23 [...] is n ot available. Performing Organization Address [facility] one Number [facility] [address] [place] [address] LABORATORIES 100 * FLOW PRA CLASS II WITH REFLEX TO ANTIBODY SPECIFICITY (12/17/2018 11:22 AM CDT) Flow Class II Percent 5 [facility] NG Positive Specimen Blood Narrative Performed At Disclaimer: [facility] This test was developed and its perform ance characteristics determined by the [facility]. It has not been cleared or approved by the U.S. Food and Drug Administration. The FDA has determined that such clearance or approval is not necessary. This test is used for clinic al purposes. It should not be regarded as investigational or for research. This l aboratory is certified under the Clinical Laboratory Improvement Amendments of (CLIA-88) as qualified to perform high complexity clinical laboratory testing. Performing Organization Address City/[facility] one Number [facility] ONE Sathya Dorman, MS: [id number], [place] [id number] CLIA#[id number] CAP#[id number] UNOS#[id number] * FLOW PRA CLASS I WITH REFLEX TO ANTIBODY SPECIFICITY (12/17/2018 11:22 AM CDT) Flow Class I Percent 0 [facility] G Positive Specimen Blood Narrative Performed At Disclaimer: [facility] This test was developed and its perform ance characteristics determined by the [facility]. It has not been cleared or [...] complexity clinical laboratory testing. Performing Organization Address [facility] [facility] one Number [facility] HLA TEST[facility] ONE Sathya Dorman, MS: [id number], [place] [address] CLIA#[id number] CAP#[id number] UNOS#[id number] * AB SPECIFICITY CLASS II (12/17/2018 11:22 AM CDT) AB Specificity Class II NO CLASS II ANTIBODY DETECTED BA YLOR HLA TESTING WITH MFIs > 4000 Specimen Blood Narrative Performed At Disclaimer: [facility] This test was developed and its perform ance characteristics determined by the [facility] Laboratory. It has not been cleared or [...] complexity clinical laboratory testing. Performing Organization Address [facility] one Number [facility] ONE Sathya Dorman, MS: [id number], [place] [address] CLIA#[id number] CAP#[id number] UNOS#[id number] * Type and Screen, Automated (12/17/2018 11:22 AM CDT) ABO/RH AUTOMATED (BEAKER) O POSITIVE [facility] Ab Scrn NEGATIVE [facility] Specimen Blood Performing Organization Address [facility] one Number [address] [address] 1 [phone] [facility] * PT/aPTT (12/17/2018 11:22 AM CDT) Protime 14.0 11.9 - 14.2 seconds [facility] INR 1.1 <=5.9 [facility] PTT 34.9 22.5 - 36.0 seconds [facility] Specimen Blood Narrative Performed At Effective 09/25/2018: PT Reference Range Change [facility] New: 11.9-14.2Previous: 11.7-14.7 [facility] MEDICAL NTER RECOMMENDED COUMADIN/WARFARIN INR THERA PY RANGES STANDARD DOSE: 2.0-3.0Includes: PRO PHYLAXIS for venous thrombosis, systemic embolization; TREATMENT for venous thro mbosis and/or pulmonary embolus. HIGH RISK: Target INR is 2.5-3.5 for pa tients wiht mechanical heart valves. Performing Organization Address [facility] one Number [address] [address] [facility] * HIV-1 Antigen with HIV-1/2 Antibody (12/17/2018 11:22 AM CDT) HIV-1 Antigen with HIV Nonreactive Nonreactive [facility] 1&2 Antibody [facility] Specimen Blood Performing Organization Address [facility] one Number [address] [address] [facility] * CBC with platelet count + automated diff (12/17/2018 11:22 AM CDT) WBC 5.5 3.5 - 10.5 K/L [facility] RBC 3.93 (L) 4.63 - 6.08 M/L [facility] Hemoglobin 12.0 (L) 13.7 - 17.5 GM/DL [facility] Hematocrit 37.8 (L) 40.1 - 51.0 % [facility] MCV 96.2 (H) 79.0 - 92.2 fL [facility] MCH 30.5 25.7 - 32.2 pg [facility] MCHC 31.7 (L) 32.3 - 36.5 GM/DL [facility] RDW 14.7 (H) 11.6 - 14.4 % [facility] Platelets 108 (L) 150 - 450 K/CU MM [facility] MPV 12.7 (H) 9.4 - 12.4 fL [facility] nRBC 0 0 - 0 /100 WBC [facility] % Neutros 58 % [facility] % Lymphs 20 % [facility] % Monos 11 % [facility] % Eos 10 % [facility] % Baso 1 % [facility] # Neutros 3.18 1.78 - 5.38 K/L [facility] # Lymphs 1.12 (L) 1.32 - 3.57 K/L [facility] # Monos 0.61 0.30 - 0.82 K/L [facility] # Eos 0.53 0.04 - 0.54 K/L [facility] # Baso 0.06 0.01 - 0.08 K/L [facility] Immature 0 0 - 1 % [facility] Granulocytes-Relative [facility] Specimen Blood Performing Organization Address City/State/Zipcode Ph one Number [facility] [address] [address] [facility] * Hepatitis C Antibody (12/17/2018 11:22 AM CDT) Hepatitis C Ab Nonreactive Nonreactive [facility] Specimen Blood Performing Organization Address [facility] one Number [address] [facility] * Cytomegalovirus antibody, IgM (12/17/2018 11:22 AM CDT) CMV IGM Negative Negative, Equivocal [facility] Specimen Blood Narrative Performed At CMV IgM Result Interpretation: [facility] </= 0.8 Al Negative [facility] 0.9-1.0 Al Equivocal >/= 1.1 Al Positive Performing Organization Address [facility] one [address] [facility] * Hepatitis B core antibody, IgM (12/17/2018 11:22 AM CDT) Hep B C IgM Nonreactive Nonreactive [facility] Specimen Blood Performing Organization Address [facility] one [address] [facility] * EBV-VCA antibody, IgM (12/17/2018 11:22 AM CDT) MICHEAL PANDYA VIRAL CAPSID Negative Negative, Equivocal [facility] ANTIGEN IGM [facility] Specimen Blood Narrative Performed At Micheal Pandya Viral Capsid Antigen IgM Result Interpre tation: [facility] </= 0.8 Al Negative [facility] 0.9-1.0 Al Equivocal >/= 1.1 Al Positive Performing Organization Address [facility] one [address] [facility] * EBV-VCA antibody, IgG (12/17/2018 11:22 AM CDT) MICHEAL PANDYA VIRAL CAPSID Positive (A) Negative, Equivocal [facility] ANTIGEN IGG [facility] Specimen Blood Narrative Performed At Micheal Pandya Viral Capsid Antigen IgG Result Interpre tation: [facility] </= 0.8 Al Negative [facility] 0.9-1.0 Al Equivocal >/= 1.1 Al Positive Performing Organization Address [facility] one Number [address] [facility] * RPR (12/17/2018 11:22 AM CDT) RPR Nonreactive Nonreactive [facility] Specimen Blood Performing Organization Address [facility] one [address] [facility] * Hepatitis B surface antibody (12/17/2018 11:22 AM CDT) Hep B S Ab <8.0 <8.0 mIU/mL [facility] Specimen Blood Performing Organization Address [facility] one [address] [phone] [place] [address] * Hepatitis B surface antigen (12/17/2018 11:22 AM CDT) HBsAg Screen Nonreactive Nonreactive [facility] Specimen Blood Performing Organization Address [facility] one Number [address] [facility] * Cytomegalovirus antibody, IgG (12/17/2018 11:22 AM CDT) CYTOMEGALOVIRUS, IGG Positive (A) Negative, Equivocal [facility] Specimen Blood Narrative Performed At CMV IgG Result Interpretation: [facility] </= 0.8 Al Negative [facility] 0.9-1.0 Al Equivocal >/=1.1 AlPositive Performing Organization Address [facility] one Number [address] [facility] * Direct AHG (BETO)/Direct Robb (12/17/2018 11:22 AM CDT) Direct AHG-IGG NEGATIVE [facility] Direct AHG-C3B, C3D NEGATVIE [facility] Specimen Blood Performing Organization Address [facility] one Number [address] [address] [phone] [facility] * Varicella Zoster Antibody, IgG (12/17/2018 11:22 AM CDT) Varicella IgG 4.9 [facility] Specimen Blood Narrative Performed At VARICELLA ZOSTER RESULT INTERPRETATIONS: [facility] <=0.8 AlNo nreactive:Presumed non-immune to VZV [facility] 0.9-1.0 AlEqui vocal >=1.1 AlRe active:Presumed immune to VZV Performing Organization Address [facility] one Number [address] [facility] * Uric Acid (12/17/2018 11:22 AM CDT) Uric Acid 4.6 2.6 - 7.2 mg/dL [facility] Specimen Blood Performing Organization Address [facility] one Number [address] [facility] * Phosphorus (12/17/2018 11:22 AM CDT) Phosphorus 4.8 (H) 2.3 - 4.7 mg/dL [facility] Specimen Blood Performing Organization Address [facility] one Number [address] [facility] * PTH, Intact (12/17/2018 11:22 AM CDT) PTH 236.2 (H) 8.5 - 72.5 pg/mL [facility] Specimen Blood Performing Organization Address [facility] Ph one Number [address] [facility] * Lactate Dehydrogenase (LDH) (12/17/2018 11:22 AM CDT) LDH 263 (H) 125 - 220 U/L [facility] Specimen Blood Performing Organization Address [facility] Ph one Number [address] [facility] * Hemoglobin A1c (12/17/2018 11:22 AM CDT) Hemoglobin A1C 5.3 4.3 - 6.1 % [facility] Specimen Blood Performing Organization Address [facility] Ph one Number [address] [facility] * Gamma Glutamyl Transferase (GGT) (12/17/2018 11:22 AM CDT) GGT 47 9 - 64 U/L [facility] Specimen Blood Performing Organization Address [facility] one Number [address] [facility] * Comprehensive metabolic panel (12/17/2018 11:22 AM CDT) Protein, Total 8.3 6.0 - 8.3 gm/dL [facility] Albumin 4.5 3.5 - 5.0 g/dL [facility] Alkaline Phosphatase 122 40 - 150 U/L [facility] Total Bilirubin 0.7 0.2 - 1.2 mg/dL [facility] Sodium 139 136 - 145 meq/L [facility] Potassium 4.9 3.5 - 5.1 meq/L [facility] Chloride 102 98 - 107 meq/L [facility] CO2 25 22 - 29 meq/L [facility] BUN 43 (H) 7 - 21 mg/dL [facility] Creatinine 8.15 (H) 0.57 - 1.25 mg/dL [facility] Glucose 79 70 - 105 mg/dL [facility] Calcium 9.5 8.4 - 10.2 mg/dL [facility] AST 21 5 - 34 U/L [facility] ALT 19 6 - 55 U/L [facility] EGFR 7Comment: ESTIMATED GFR IS NOT mL/min/1.73 sq m [facility] ACCURATE CREATININE [facility] CLEARANCE IN PREDICTING GLOMERULAR FILTRATION RATE. ESTIMATED GFR IS NOT APPLICABLE FOR DIALYSIS PATIENTS. Specimen Blood Performing Organization Address City/[facility] one Number [address] [facility] * Urine Culture (12/17/2018 11:15 AM CDT) Result 40-49,000 col/mL skin marisol [facility] Specimen Urine Performing Organization Address [facility] Ph one Number [address] [facility] after 09/28/2018 Insurance Payer Benefit Subscriber ID Type Phone Address Plan / Group MEDICARE MEDICARE A xxxxxxxxxxx Medicare B [employer]IG[employer] LIFESOURCE CIGNA xxxxxxxxxxx Transplant TRANSPLANT LIFESOURCE s TRANSPLANT MEDICAID [place]ID xxxxxxxxx [place] [id number]
--- OUTSIDE RECORDS SUMMARY | 2019-09-29 10:52 | XMS REPORT ---
Author Author [facility] t Organization [facility] Address [address] [place] [address] Phone Unavailable Care Team Providers Care Tip Printer Name Role Phone MD SUNG VAIL MD PCP SUNG VAIL Attphys Unavailable Orlando CAZARES Attphys Unavailable KOUSSAYER, TAREK Attphys Unavailable TIMMINS SCaleb MARIIA Attphys Unavailable PETRA GRIMALDO Attphys Unavailable Escobar NOVOA Attphys Unavailable DILLAN FAUSTIN Attphys Unavailable SUNG VAIL Admphys Unavailable Orlando CAZARES Admphys Unavailable PETRA GRIMALDO Admphys Unavailable DILLAN FAUSTIN Admphys Unavailable Payers Payer Name Policy Type Policy Number Effective Date Expiration Date S daksha [employer] NA 2018 00:00:00 [facility] [employer] NA [facility] Medicare A & B [id number] 2018 00:00:00 [facility] [id number] 2018 00:00: 00 [facility] Problems Condition Name Condition Details Condition Category Status Onset Date Resolution Date Last Treatment Date Treating Clinician Comments Source Hyperlipidemia Hyperlipidemia Problem Active 2018-12-26 00:00:00 [facility] Chronic kidney disease Chronic Kidney Disease Problem Active 2018-07-31 00:00:00 [facility] Dependence on hemodialysis Dependence on Hemodialysis Problem Active 2018-07-31 00:00:00 [facility] Type II diabetes mellitus uncontrolled Type II Diabetes Val itus Uncontrolled Problem Active 2018-06-17 00:00:00 [facility] Hypertensive disorder Hypertensive Disorder Problem Active 201 12-30-17 00:00:00 [facility] janet Congestive heart failure Congestive Heart Failure Problem Acti 2018-06-17 00:00:00 [facility] History of alcohol abuse History of Alcohol Abuse Problem Acti 2018-06-17 00:00:00 [facility] Diabetic foot ulcer Diabetic foot ulcer Disease Active 2015-09-24 00:00 :00 Keith Arteaga Chronic osteomyelitis of right foot Chronic osteomyelitis of rig ht foot Disease Active 2015-09-24 00:00:00 [facility] Diabetes mellitus type II, controlled Diabetes mellitus type II, controlled Disease Active 2015-09-24 00:00:00 Keith Arteaga Cellulitis of foot without toes, right Cellulitis of foot wi thout toes, right Disease Active 2015-09-24 00:00:00 Keith Arteaga End-stage renal disease ESRF (end stage renal failure) Problem Active [facility] Pulmonary edema Pulmonary edema Problem Active [facility] Anemia Anemia Problem Active [facility] End stage renal failure on dialysis ESRD (end stage renal di sease) on dialysis Problem Active [facility] Pleural effusion Pleural effusion Problem Active [facility] Pneumonia Pneumonia Problem Active [facility] Hypertensive urgency Hypertensive urgency Problem Active [facility] Malignant hypertensive urgency Hypertensive urgency, malignant Proble m Active [facility] Hypervolemia Volume overload Problem Active [facility] Hypoglycemia Problem Active [facility] Urinary tract infection Problem Active [facility] Altered mental status Problem Active [facility] Hypothermia Problem Active [facility] Allergies, Adverse Reactions, Alerts Allergy Name Allergy Type Status Severity Reaction(s) Onset Date Inacti ve Date Treating Clinician Comments Source No Known Allergies DA Active U 2019-08-23 00:00:00 [facility] No Known Allergies DA Active U 2018-09-19 00:00:00 [facility] Family History Family Member Diagnosis Comments Start Date Stop Date Source Natural brother Diabetes type II Jose Eduardo anabella Masseyist Natural brother Hypertension Keith Arteaga Natural mother Diabetes type II [place] [employer] Social History Social Habit Start Date Stop Date Quantity Comments Source Alcohol intake 2015-11-10 00:00:00 2015-11-10 00:00:00 Current drinker of alcohol (finding) Keith Arteaga Sex Assigned At 1960 00:00:00 1960 00:00:00 Male [facility] Smoking Status Start Date Stop Date Source Former Smoker [facility] Never smoker Keith Iverson t Medications Ordered Medication Name Filled Medication Name Start Date Stop Da te Current Medication? Ordering Clinician Indication Dosage Frequency Signature (SIG) Comments Components Source Albumin 25% 12.5GM 50ML Albumin 25% 12.5GM 50ML 2019-06-04 13:25 :00 2019-08-12 00:00:00 No 25 As Needed as needed for Bp Supp ort During Dialysis [facility] Nifedipine (Nifedipine Er) 30 Mg TAB.ER.24 Nifedipine (Nifedipine Er) 30 Mg TAB.ER.24 2019-06-04 13:25:00 2019-08-12 00:00:00 No 30 Bedtime [facility] Sucralfate (Carafate) 1 Gm TABLET Sucralfate (Carafate) 1 Gm TABLET 2019-06-04 13:25:00 2019-08-12 00:00:00 No 1 Before Meals And At Bedtime [facility] Ciprofloxacin Hcl (Cipro) 500 Mg TABLET Ciprofloxacin Hcl (C ipro) 500 Mg TABLET 2018-10-02 22:06:00 2019-06-04 00:00:00 No 250 Every 12 Hours [facility] Doxazosin Mesylate (Cardura) 8 Mg TABLET Doxazosin Mes ylate (Cardura) 8 Mg TABLET 2018-07-14 07:31:00 2019-06-04 00:00:00 No 8 Twi ce A Day [facility] Folic Acid Folic Acid 2018-07-11 09:31:2019-08-12 00:00:00 No 1 Daily [facility] Hydral[facility] Hcl Hydralazine Hcl 2018-07-11 09:31:2019-06-04 00:00:00 No 25 Twice A Day [facility] Losartan Potassium (Cozaar) 100 Mg TABLET Losartan Pot assium (Cozaar) 100 Mg TABLET 2018-07-11 09:31:2019-06-04 00:00:00 No 50 Twi ce A Day [facility] Metoprolol Tartrate (Lopressor) 25 Mg TAB Metoprolol T artrate (Lopressor) 25 Mg TAB 2018-07-11 09:31:00 2019-06-04 00:00:00 No 25 Ever y 12 Hours [facility] Nifedipine (Nifedipine Er) 30 Mg TAB.ER.24 Nifedipine (Nifedipine Er) 30 Mg TAB.ER.24 2018-07-11 09:31:00 2019-06-04 00:00:00 No 60 Bedtime [facility] Basaglar KwikPen U-100 Insulin 100 unit/ mL [...] subcutaneous route as directed for 30 days. [facility] calcium acetate 667 mg capsule Take one capsule by three times a day calcium acetate 667 mg capsule Take one capsule by mouth three times a day No calcium acetate 667 mg capsule Take one capsule by mouth three times a day [facility] folic acid 1 mg tablet Take 1 tablet every day by oral route for 90 days. folic acid 1 mg tablet Take 1 tablet every day by oral route for 90 days. No folic acid 1 mg tablet Take 1 tablet every day by oral route for 90 days. [facility] furosemide 40 mg tablet furosemide 40 mg tablet No furosemide 40 mg tablet [facility] gabapentin 100 mg capsule gabapentin 100 mg capsule No gabapentin 100 mg capsule [facility] ice lancets 33 gauge lancets 33 gauge No lancet s 33 gauge [facility] losartan 50 mg tablet Take 1 tablet ever y day by oral route as directed for 90 days. losartan 50 mg tablet Take 1 tablet ever y day by oral route as directed for 90 days. No losartan 50 mg tablet Take 1 tablet every day by oral route as directed for 90 days. [facility] minoxidil 10 mg tablet Take 1 tablet pascual ry day by oral route as directed for 30 days. minoxidil 10 mg tablet Take 1 tablet pascual ry day by oral route as directed for 30 days. No 1 Q1D minoxidil 1 0 mg tablet Take 1 tablet every day by oral route as directed for 30 days. [facility] moxifloxacin 0.5 % eye drops NOT USING RX YET moxiflox acin 0.5 % eye drops NOT USING RX YET No moxifloxacin 0.5 % eye dr ops NOT USING RX YET [facility] nifedipine ER 60 mg tablet,extended rele ase Take 1 tablet every day by oral route. nifedipine ER 60 mg tablet,extended rele ase Take 1 tablet every day by oral route. No 1 Q1D nifedipine E R 60 mg tablet,extended release Take 1 tablet every day by oral route. [facility] prednisolone acetate 1 % eye drops,suspension NOT USIN G RX YET prednisolone acetate 1 % eye drops,suspension NOT USING RX YET No prednisolone acetate 1 % eye drops,suspension NOT USING RX YET [facility] rosuvastatin 5 mg tablet Take 1 tablet every day by or al route as directed. rosuvastatin 5 mg tablet Take 1 tablet every day by oral route as directed. No 1 Q1D rosuvastatin 5 mg tablet Take 1 tablet every day by oral route as directed. [facility] True Metrix Glucose Test Strip use once daily in the m orning True Metrix Glucose Test Strip use once daily in the morning No True Metrix Glucose Test Strip use once daily in the morning [facility] Acetaminophen With Codeine (Tylenol With Codeine #3 Ta blet) 1 Each TABLET Acetaminophen With Codeine (Tylenol With Codeine #3 Tablet) 1 Each TABLET Yes 300 Every 6 Hours as needed for Moderate Rai n (4-6) [facility] Clonidine Hcl Clonidine Hcl Yes 1 Three Times A Day [facility] Lidocaine Patch Lidocaine Patch Yes 4 Daily [facility] Losartan Potassium Losartan Potassium Yes 100 Da lewis [facility] Megestrol Acetate Megestrol Acetate Yes 400 Carmelina y [facility] Metoprolol Succinate Metoprolol Succinate Yes 50 Daily [facility] Nifedipine (Procardia Xl) 30 Mg TAB.ER.24 Nifedipine ( Procardia Xl) 30 Mg TAB.ER.24 Yes 30 Every 12 Hours [facility] Tizanidine Hcl Tizanidine Hcl Yes 4 Bedtime [facility] Tramadol Hcl (Ultram 50MG*) 50 Mg TAB Tramadol Hcl (Ultram 50MG*) 5 0 Mg TAB Yes 50 Every 8 Hours as needed for Moderate Rai n (4-6) [facility] Calcium Acetate Calcium Acetate 2019-08-12 00:00:00 No 667 Three Times A Day [facility] Rosuvastatin Calcium (Crestor) 5 Mg TABLET Rosuvastati n Calcium (Crestor) 5 Mg TABLET 2019-08-12 00:00:00 No 5 Twice A Day [facility] Sodium Bicarbonate Sodium Bicarbonate 2019-08-12 00:00:00 No 650 Twice A Day [facility] Furosemide (Lasix) 40 Mg TABLET Furosemide (Lasix) 40 Mg TABLET 2019-06-04 00:00:00 No 40 Daily [facility] Minoxidil Minoxidil 2019-06-04 00:00:00 No 10 Daily [facility] Lisinopril Lisinopril 2018-07-11 00:00:00 No 10 Carlie ly [facility] Metoprolol Tartrate (Lopressor) 25 Mg TAB Metoprolol T artrate (Lopressor) 25 Mg TAB 2018-07-11 00:00:00 No 100 Twice A Day [facility] Nifedipine (Procardia Xl) 60 Mg TAB.ER.24 Nifedipine ( Procardia Xl) 60 Mg TAB.ER.24 2018-07-11 00:00:00 No 60 Daily [facility] Immunizations Ordered Immunization Name Filled Immunization Name Date Status Comments Source influenza, injectable, quadrivalent influenza, injectable, q uadrivalent 2019-02-11 00:00:00 Completed [facility] ice pneumococcal polysaccharide PPV23 pneumococcal polysaccharid e PPV23 2018-06-28 00:00:00 Completed [facility] ice Pneumococcal Conjugate 13-Valent 2015-10-03 00:00:00 Compl etjeremy Arteaga Vital Signs Vital Name Observation Time Observation Value Comments Source BP Diastolic 2019-02-25 00:00:00 60 mm[Hg] [facility] Height 2019-02-25 00:00:00 68.3 [in_i] [facility] BMI (Body Mass Index) 2019-02-25 00:00:00 20.5 kg/m2 [facility] BP Systolic 2019-02-25 00:00:00 130 mm[Hg] [facility] Body Weight 2019-02-25 00:00:00 136 [lb_av] [facility] BP Diastolic 2018-12-26 00:00:00 54 mm[Hg] [facility] Height 2018-12-26 00:00:00 68.3 [in_i] [facility] BMI (Body Mass Index) 2018-12-26 00:00:00 22.2 kg/m2 [facility] BP Systolic 2018-12-26 00:00:00 124 mm[Hg] [facility] Body Weight 2018-12-26 00:00:00 147.4 [lb_av] [facility] BP Diastolic 2018-11-21 00:00:00 50 mm[Hg] [facility] Height 2018-11-21 00:00:00 68.3 [in_i] [facility] BMI (Body Mass Index) 2018-11-21 00:00:00 21.8 kg/m2 [facility] BP Systolic 2018-11-21 00:00:00 130 mm[Hg] [facility] Body Weight 2018-11-21 00:00:00 144.6 [lb_av] [facility] BP Diastolic 2018-11-07 00:00:00 48 mm[Hg] [facility] Height 2018-11-07 00:00:00 68.3 [in_i] [facility] BMI (Body Mass Index) 2018-11-07 [...] Family Practice Height 2018-08-07 00:00:00 68.3 [in_i] [facility] BMI (Body Mass Index) 2018-08-07 00:00:00 19.1 kg/m2 [facility] BP Systolic 2018-08-07 00:00:00 110 mm[Hg] [facility] Body Weight 2018-08-07 00:00:00 127 [lb_av] [facility] BP Diastolic 2018-07-31 00:00:00 80 mm[Hg] [facility] Height 2018-07-31 00:00:00 68.3 [in_i] [facility] BMI (Body Mass Index) 2018-07-31 00:00:00 19.4 kg/m2 [facility] BP Systolic 2018-07-31 00:00:00 154 mm[Hg] [facility] Body Weight 2018-07-31 00:00:00 128.4 [lb_av] [facility] BP Diastolic 2018-06-17 00:00:00 94 mm[Hg] [facility] Height 2018-06-17 00:00:00 68.3 [in_i] [facility] BMI (Body Mass Index) 2018-06-17 00:00:00 24.2 kg/m2 [facility] BP Systolic 2018-06-17 00:00:00 170 mm[Hg] [facility] Body Weight 2018-06-17 00:00:00 160.8 [lb_av] [facility] Body Temperature 2019-09-26 16:00:00 98.0 [degF] [facility] BMI (Body Mass Index) 2019-09-24 16:03:00 20.9 kg/m2 [facility] Weight 2019-09-24 01:16:00 118 [lb_av] [facility] Procedures Procedure Date / Time Performed Performing Clinician Sour anna Computed tomography of brain without radiopaque contrast 2019-08 00:00:00 [facility] Computed tomography of brain without radiopaque contrast 00:00:00 GERMAIN ARNETT [facility] Computed tomography of brain without radiopaque contrast 202 00:00:[address] [facility] PERFORMANCE OF URINARY FILTRATION, <6 HRS/DAY 2019-08-13 00:00:0 0 [facility] Thoracentesis with ultrasound guidance 2019-07-28 00:00:00 MARILIN PELAEZ [facility] DRAINAGE OF LEFT PLEURAL CAVITY, PERCUTANEOUS APPROACH 2019-07-01 0 00:00:00 [facility] PERFORMANCE OF URINARY FILTRATION, <6 HRS/DAY 2019-07-25 00:00:0 0 [facility] TRANSFUSE NONAUT RED BLOOD CELLS IN CENTRAL VEIN, PERC 2019-06-29 3 00:00:00 [facility] EXCISION OF STOMACH, PYLORUS, ENDO, DIAGN 2019-07-09 00:00:00 [facility] EXTRACTION OF ESOPHAGUS, ENDO, DIAGN 2019-07-09 00:00:00 [facility] PERFORMANCE OF URINARY FILTRATION, <6 HRS/DAY 2019-07-07 00:00:0 0 [facility] PERFORMANCE OF URINARY FILTRATION, <6 HRS/DAY 2019-06-04 00:00:0 0 [facility] PERFORMANCE OF URINARY FILTRATION, <6 HRS/DAY 2019-06-02 00:00:0 0 [facility] X-ray of chest, two views 2019-06-01 00:00:00 KEN SCOTT [facility] PERFORMANCE OF URINARY FILTRATION, <6 HRS/DAY 2019-05-30 00:00:0 0 [facility] PERFORMANCE OF URINARY FILTRATION, <6 HRS/DAY 2019-05-28 00:00:0 0 [facility] Computed tomography of chest without contrast 2019-05-26 00: 00:00 MARILIN JUAN [facility] PERFORMANCE OF URINARY FILTRATION, <6 HRS/DAY 2019-05-26 00:00:0 0 [facility] PERFORMANCE OF URINARY FILTRATION, <6 HRS/DAY 2019-05-23 00:00:0 0 [facility] X-ray of chest, two views 2019-05-22 00:00:00 LETSOU, MARILIN [facility] PERFORMANCE OF URINARY FILTRATION, <6 HRS/DAY 2019-05-21 00:00:0 0 [facility] X-ray of chest, two views 2019-05-20 00:00:00 KEN SCOTT [facility] Ultrasound guidance for vascular access 2019-05-20 00:00:00 GERSON ORTIZ [facility] INSERTION OF INFUSION DEV INTO SUP VENA CAVA, PERC APPROACH 2019-05-20 00:00:00 [facility] ULTRASONOGRAPHY OF SUPERIOR VENA CAVA, GUIDANCE 2019-05-20 00:00 :00 [facility] PERFORMANCE OF URINARY FILTRATION, <6 HRS/DAY 2019-05-20 00:00:0 0 [facility] EXCISION OF R FOOT SUBCU/FASCIA, OPEN APPROACH 2019-05-18 00:00: 00 [facility] EXCISION OF RIGHT PLEURA, ENDO, DIAGN 2019-05-15 00:00:00 [facility] DRAINAGE OF RIGHT PLEURA WITH DRAINAGE DEVICE, ENDO 2019-05-15 0 0:00:00 [facility] RELEASE RIGHT LUNG, OPEN APPROACH 2019-05-15 00:00:00 [facility] PERFORMANCE OF URINARY FILTRATION, <6 HRS/DAY 2019-05-14 00:00:0 0 [facility] Thoracentesis with ultrasound guidance 2019-05-12 00:00:00 GERSON ORTIZ [facility] Computed tomography of chest without contrast 2019-05-12 00: 00:00 EDIN FRAIRE [facility] PERFORMANCE OF URINARY FILTRATION, <6 HRS/DAY 2019-05-12 00:00:0 0 [facility] CT of abdomen and pelvis without contrast 2019-05-11 00:00:00 [facility] Thoracentesis with ultrasound guidance 2019-05-09 00:00:00 NIURKA FRIEND [facility] X-ray of chest, single view 2019-05-09 00:00:00 BRETT CAZARES [facility] DRAINAGE OF R PLEURAL CAV WITH DRAIN DEV, PERC APPROACH 00:00:00 [facility] EXCISION OF STOMACH, ENDO, DIAGN 2019-05-09 00:00:00 [facility] EXCISION OF STOMACH, PYLORUS, ENDO, DIAGN 2019-05-09 00:00:00 [facility] PERFORMANCE OF URINARY FILTRATION, <6 HRS/DAY 2019-05-08 00:00:0 0 [facility] TRANSFUSE NONAUT RED BLOOD CELLS IN PERIPH VEIN, PERC 2019-05-08 00:00:00 [facility] X-ray of chest, two views 2019-05-07 00:00:00 NIURKA FRIEND I [facility] X-ray of chest, single view 2019-03-24 00:00:00 HUNTER HEARD [facility] electrocardiogram 2018-12-26 00:00:00 [facility] Fistula Cannulation Set, Ea 2018-04-30 00:00:00 [facility] Amputation of Toe [facility] Plan of Care Planned Activity Planned Date Details Comments Source Future Scheduled Test 2019-11-29 00:00:00 INFLUENZA VACCINE [code = INFLUENZA VACCINE] [facility] Future Scheduled Test 2009-12-04 00:00:00 COLONOSCOPY SCREEN ING [code = COLONOSCOPY SCREENING] [facility] Scheduled Test 2009-12-04 00:00:00 SHINGLES VACCINES (#1) [code = SHINGLES VACCINES (#1)] [facility] Future Scheduled Test 1969-12-04 00:00:00 DIABETIC FOOT EXAM [code = DIABETIC FOOT EXAM] [facility] Future Scheduled Test 1960 00:00:00 DIABETIC RETINAL E YE EXAM [code = DIABETIC RETINAL EYE EXAM] [facility] Encounters Start Date/Time End Date/Time Encounter Type Admission Type [facility] Care Department Encounter ID Source 2019-09-24 03:35:00 2019-09-26 17:09:00 Discharged Inpatient 1 GENNABALDOAUGUST [facility] [id number] [facility] 2019-08-13 00:11:00 2019-08-20 17:37:00 Discharged Inpatient [address] [facility] [id number] [facility] 2019-07-26 11:58:00 2019-07-29 14:01:00 Discharged Inpatient [address] [id number] [facility] 2019-07-06 15:53:00 2019-07-14 19:04:00 [facility] [id number] [facility] 2019-05-07 17:27:00 2019-06-04 19:58:00 [facility] [id number] [facility] 2019-03-24 14:49:00 2019-03-24 18:20:00 Departed Emergency Room [address] [facility] [id number] [facility] 2019-02-25 00:00:00 2019-02-25 00:00:00 Kiran milton [facility] [place] [address], Ph. [facility] [id number] [facility] 2018-12-26 00:00:00 2018-12-26 00:00:00 Kiran milton MD: [address] [place] [address], Ph. [facility] [id number] [facility] 2018-11-21 00:00:00 2018-11-21 00:00:00 Kiran milton MD: [address] [place] [address], [facility]. [facility] [id number] [facility] 2018-11-07 00:00:00 2018-11-07 00:00:00 Kiran milton MD: [address] [place] [address], Ph. [facility] [id number] [facility] 2018-10-24 00:00:00 2018-10-24 00:00:00 Kiran milton MD: [address] [place] [address], [facility]. [facility] [id number] [facility] 2018-10-15 00:00:00 2018-10-15 00:00:00 Kiran milton MD: [address] [place] [address], Ph. [facility] [id number] [facility] 2018-09-28 06:57:00 2018-10-03 09:49:00 Discharged Inpatient 1 PETRA GRIMALDO [facility] [id number] [facility] 2018-08-14 00:00:00 2018-08-14 00:00:00 Kiran milton MD: [address] [place] [address], Ph. [facility] [id number] [facility] 2018-08-07 00:00:00 2018-08-07 00:00:00 Kiran milton MD: [address] [place] [address], Ph. [facility] [id number] [facility] 2018-07-31 00:00:00 2018-07-31 00:00:00 Kiran milton MD: [address] [place] [address], Ph. [facility] [id number] [facility] 2018-07-11 18:26:00 2018-07-14 18:21:00 Discharged Inpatient 1 AISHA NOVOA [facility] [id number] [facility] 2018-06-17 22:58:00 2018-07-01 18:43:00 Discharged Inpatient 1 DILLAN FAUSTIN [facility] [id number] [facility] 2018-06-17 00:00:00 2018-06-17 00:00:00 Kiran milton MD: [address] [place] [address], Ph. [facility] [id number] [facility] Results Test Description Test Time Test Comments Results Result Comments Source Capillary blood glucose measurement by glucometer (mas s/volume) 2019-09-26 15:09:00 Test Item Bedside Glucose (test code = 94904-8) 316 70-120 Meter ID: [id number] [facility]2019-09-25 10:51:00 [place] [address] Patient Name: JOSHUA WHEELER MR #: [id number] : 1960 Age/Sex: 58/M Req #: [id number] Adm Physician: SUNG VAIL MD Ordered by: KEN SCOTT MD Report #: [id number] Location: MED/SURG Room/Bed: [facility] Procedure: [id number] DX/CHEST SINGL E (PORTABLE) Exam Date: 09/25/19 Exam Time: 0940 REPORT STATUS: Signed EXAMINATION: CHEST SINGLE (PORTABLE) INDICATION: Shortness of breath COMPARISO N: Chest radiograph 09/24/2019 FINDINGS: LINES/TUBES:EKG leads ove rlie the chest. LUNGS:The lungs are moderately inflated. Right basilar patc hy opacities appear unchanged. PLEURA:Small bilateral pleural effusions. No pneumothorax. MEDIASTINUM:The cardiomediastinal silhouette appears uncha nged in size and shape. BONES/SOFT TISSUES:No acute osseous injury. ABDOMEN:No free air under the diaphragm. IMPRESSION: No significant i nterval change. Signed by: Kevin Banda MD on 09/25/2019 10:53 AM Dict ated By: KEVIN BANDA MD 1053 Transcribed By: LOREE on 09/25/19 1053 COPY TO: KEN SCOTT MD Blood leukocytes automated count (number/volume)2019-09-25 05:15:00* Test Item Value Reference Range Interpretation Comments White Blood Count (test code = 6690-2) 7.81 4.8-10.8 [facility] erythrocytes automated count (number/volume)2019-09-25 05:15:00* Test Item Value Reference Range Interpretation Comments Red Blood Count (test code = 789-8) 3.21 4.3-5.7 [facility] hemoglobin measurement (moles/volume)2019-09-25 05:15:00* Test Item Value Reference Range Interpretation Comments Hemoglobin (test code = 34321-9) 9.2 14.0-18.0 [facility] AntonioAutomated blood hematocrit (volume fraction)2019-09-25 05:15:00* Test Item Value Reference Range Interpretation Comments Hematocrit (test code = 4544-3) 29.4 38.2-49.6 [facility] AntonioAutomated erythrocyte mean corpuscular hvuuow8224-63-15 05:15:00* Test Item Value Reference Range Interpretation Comments Mean Corpuscular Volume (test code = 787-2) 91.6 81-99 [facility] AntonioAutomated erythrocyte mean corpuscular hemoglobin (mass per erythrocyte)2019-09-25 05:15:00* Test Item Value Reference Range Interpretation Comments Mean Corpuscular Hemoglobin (test code = 785-6) 28.7 28-32 [facility] AntonioAutomated erythrocyte mean corpuscular hemoglobin concentration measurement (mass/volume)2019-09-25 05:15:00* Test Item Value Reference Range Interpretation Comments Mean Corpuscular Hemoglobin Concent (test code = 786-4) 31.3 31-35 [facility] AntonioRDW CbaIm-Iqu1780-99-28 05:15:00* Test Item Value Reference Range Interpretation Comments Red Cell Distribution Width (test code = 95277-5) 17.9 11.7 -14.4 [facility] AntonioAutomated blood platelet count (count/volume)2019-09-25 05:15:00* Test Item Value Reference Range Interpretation Comments Platelet Count (test code = 777-3) 195 140-360 [facility] AntonioAutomated blood segmented neutrophil count as percentage of total aqemuivetm0402-26-59 05:15:00* Test Item Value Reference Range Interpretation Comments Neutrophils (%) (Auto) (test code = 20175-7) 78.4 38.7-80.0 [facility] AntonioAutomated blood lymphocyte count as percentage ot total jjkdltvyja9082-27-22 05:15:00* Test Item Value Reference Range Interpretation Comments Lymphocytes (%) (Auto) (test code = 736-9) 8.8 18.0-39.1 [facility] AntonioAutomated blood monocyte count as percentage of total aujbxobxua4311-83-78 05:15:00* Test Item Value Reference Range Interpretation Comments Monocytes (%) (Auto) (test code = 5905-5) 8.7 4.4-11.3 [facility] AntonioAutomated blood eosinophil count as percentage of total ajctvbhomv3158-41-82 05:15:00* Test Item Value Reference Range Interpretation Comments Eosinophils (%) (Auto) (test code = 713-8) 3.2 0.0-6.0 [facility] AntonioAutomated blood basophil count as percentage of total mtuzphaknj1514-20-72 05:15:00* Test Item Value Reference Range Interpretation Comments Basophils (%) (Auto) (test code = 706-2) 0.5 0.0-1.0 [facility] AntonioFluoroscopic procedure less than one hour xbzhznfg8112-26-00 05:15:00* Test Item Value Reference Range Interpretation Comments IM GRANULOCYTES % (test code = IM GRANULOCYTES %) 0.4 0.0- 1.0 [facility] AntonioAutomated blood neutrophil count 2019-09-25 05:15:00* Test Item Value Reference Range Interpretation Comments Neutrophils # (Auto) (test code = 751-8) 6.1 2.1-6.9 [facility] AntonioBlood lymphocytes count (number/volume) 2019-09-25 05:15:00* Test Item Value Reference Range Interpretation Comments Lymphocytes # (Auto) (test code = 27087-5) 0.7 1.0-3.2 [facility] AntonioBlmille [facility] monocytes automated count (number/volume)2019-09-25 05:15:00* Test Item Value Reference Range Interpretation Comments Monocytes # (Auto) (test code = 742-7) 0.7 0.2-0.8 [facility] AntonioAutomated blood eosinophil count 2019-09-25 05:15:00* Test Item Value Reference Range Interpretation Comments Eosinophils # (Auto) (test code = 711-2) 0.3 0.0-0.4 [facility] AntonioAutomated blood basophil count (count/volume)2019-09-25 05:15:00* Test Item Value Reference Range Interpretation Comments Basophils # (Auto) (test code = 704-7) 0.0 0.0-0.1 [facility] AntonioFluoroscopic procedure less than one hour xlllimkr4322-68-52 05:15:00* Test Item Value Reference Range Interpretation Comments Absolute Immature Granulocyte (auto (dany t code = Absolute Immature Granulocyte (auto) 0.03 0-0.1 [facility] plasma sodium measurement (moles/volume)2019-09-25 05:15:00* Test Item Value Reference Range Interpretation Comments Sodium Level (test code = 2951-2) 138 136-145 [facility]ererum or plasma potassium measurement (moles/volume)2019-09-25 05:15:00* Test Item Value Reference Range Interpretation Comments Potassium Level (test code = 2823-3) 4.3 3.5-5.1 [facility]ere[facility] or plasma chloride measurement (moles/volume)2019-09-25 05:15:00* Test Item Value Reference Range Interpretation Comments Chloride Level (test code = 2075-0) 100 98-107 [facility]ererum or plasma carbon dioxide, total measurement (moles/volume)2019-09-25 05:15:00* Test Item Value Reference Range Interpretation Comments Carbon Dioxide Level (test code = 2028-9) 26 22-29 [facility]ererum or plasma anion tfs2920-33-84 05:15:00* Test Item Value Reference Range Interpretation Comments Anion Gap (test code = 80902-3) 16.3 8-16 [facility]ere[facility] or plasma urea nitrogen measurement (mass/volume)2019-09-25 05:15:00* Test Item Value Reference Range Interpretation Comments Blood Urea Nitrogen (test code = 3094-0) 32 7-26 [facility]ere[facility] or plasma creatinine measurement (mass/volume)2019-09-25 05:15:00* Test Item Value Reference Range Interpretation Comments Creatinine (test code = 2160-0) 3.16 0.72-1.25 [facility]ererum or plasma urea nitrogen/creatinine mass bahvv1607-54-98 05:15:00* Test Item Value Reference Range Interpretation Comments BUN/Creatinine Ratio (test code = 3097-3) 10 6-25 [facility] AntonioEstimated glomerular filtration rate (GFR) vjyfkuwlhsnzs1582-03-36 05:15:00* Test Item Value Reference Range Interpretation Comments Estimat Glomerular Filtration Rate (test code = 274089792) 20 >60 Ranges were taken from the National Kidney Disease Education Program and the Pending sale to [facility] literature.Reference ranges:60 or greater: Odqsqd56-80 ( for 3 consecutive months): Chronic kidney disease 15 or less: Kidney failureChildren's Hospital of San AntonioGlucose dpwifqjegti5589-45-93 05:15:00* Test Item Value Reference Range Interpretation Comments Glucose Level (test code = CZW2237) 256 74-118 [facility]ere[facility] or plasma calcium measurement (mass/volume)2019-09-25 05:15:00* Test Item Value Reference Range Interpretation Comments Calcium Level (test code = 92170-6) 8.4 8.4-10.2 [facility]ererum or plasma total bilirubin measurement (mass/volume)2019-09-25 05:15:00* Test Item Value Reference Range Interpretation Comments Total Bilirubin (test code = 1975-2) 0.4 0.2-1.2 [facility] AntonioFluoroscopic procedure less than one hour ljubxnyv1355-32-40 05:15:00* Test Item Value Reference Range Interpretation Comments Aspartate Amino Transf (AST/SGOT) (test code = Aspartate Amino Transf (AST/SGOT)) 16 5-34 [facility]ererum or plasma alanine aminotransferase measurement (enzymatic activity/volume)2019-09-25 05:15:00* Test Item Value Reference Range Interpretation Comments Alanine Aminotransferase (ALT/SGPT) (test code = 1742-6) 16 0-55 [facility]ererum or plasma protein measurement (mass/volume)2019-09-25 05:15:00* Test Item Value Reference Range Interpretation Comments Total Protein (test code = 2885-2) 7.4 6.5-8.1 [facility]ererum or plasma albumin measurement (mass/volume)2019-09-25 05:15:00* Test Item Value Reference Range Interpretation Comments Albumin (test code = 1751-7) 2.5 3.5-5.0 [facility] AntonioPlasma globulin measurement (mass/volume) 2019-09-25 05:15:00* Test Item Value Reference Range Interpretation Comments Globulin (test code = 11086-7) 4.9 2.3-3.5 [facility]ererum or plasma albumin/globulin mass hswqu8992-01-33 05:15:00* Test Item Value Reference Range Interpretation Comments Albumin/Globulin Ratio (test code = 1759-0) 0.5 0.8-2.0 [facility]ererum or plasma alkaline phosphatase measurement (enzymatic activity/volume)2019-09-25 05:15:00* Test Item Value Reference Range Interpretation Comments Alkaline Phosphatase (test code = 6768-6) 168 40-150 [facility] Centertool gastrointestinal hemoglobin lvimwwnyw5171-85-87 03:40:00* Test Item Value Reference Range Interpretation Comments Stool Occult Blood (test code = 2335-8) POSITIVE NEGATIVE [facility]ererum or plasma creatine kinase measurement (enzymatic activity/volume)2019-09-24 16:20:00* Test Item Value Reference Range Interpretation Comments Creatine Kinase (test code = 2157-6) 72 30-200 [facility]ererum or plasma creatine kinase MB measurement (mass/volume)2019-09-24 16:20:00* Test Item Value Reference Range Interpretation Comments Creatine Kinase MB (test code = 93610-5) 6.20 0-5.0 [facility] AntonioTroponin I measurement by highly sensitive enzyme toxiehekzfq2565-91-14 16:20:00* Test Item Value Reference Range Interpretation Comments Troponin I (test code = 46956-7) < 0.001 0-0.300 [facility] hepatitis B virus surface antibody assay by radioimmunoassay (units/volume)2019-09-24 16:20:00* Test Item Value Reference Range Interpretation Comments Hepatitis B Surface Antibody, Quant (test code = 5194-6) 117.3 Immunity>9.9 Status of Immunity Anti-HBs Level Inconsistent with Immunity 0.0 - 9.9Consistent with Immunity >9.9[facility] Brownwooderum or plasma hepatitis B virus core antibody detection by nwwglpnslyi3227-30-81 16:20:00* Test Item Value Reference Range Interpretation Comments Hepatitis B Core Total Antibody (test code = 77335-1) Negative Negative [facility]ererum or plasma hepatitis B virus core IgM antibody detection by nqdducsadex3470-27-86 16:20:00* Test Item Value Reference Range Interpretation Comments Hepatitis B Core IgM Antibody (test code = 17166-3) Negative Ne gative Performed at: [facility] - [facility] [address] [id number] Director: Alec Javier MD, Phone: [phone]'s Hospital of San AntonioFluoroscopic procedure less than one hour ciwgutgu1798-27-52 03:40:00* Test Item Value Reference Range Interpretation Comments [...] section 263a , to perform high complexity tests.Testing performed by [facility] [id number] [place], [place] [phone] Director: Santos Olvera M.D.CLIA # [id number] [facility] SINGLE (PORTABLE)2019-09-24 03:26:00 [place] [address] Patient Name: JOSHUA WHEELER MR #: [id number] : 1960 Age/Sex: 58/M Req #: [id number] Adm Physician: SUNG VAIL MD Ordered by: SHELLY HOOPER MD Report #: [id number] Location: [facility] Room/Bed: [place] [address] Procedure: [id number] DX/CH EST SINGLE (PORTABLE) Exam Date: 09/24/19 Exam Time: 0200 REPORT STATUS: Signed EXAM INATION: CHEST SINGLE (PORTABLE) INDICATION: Altered mental statu s COMPARISON: Chest x-ray 08/18/2019 FINDINGS: TUBES and LINES: None. LUNGS/PLEURA: Normal lung volumes. Bibasilar haziness with obscured hemidiaphragms. Right lower lung haziness. Bronchial cuffing. HE ART AND MEDIASTINUM: Cardiac size is mildly enlarged. BONES AND SOFT T ISSUES: No acute osseous lesion. Soft tissues are unremarkable. Skinfolds pr oject over the left chest. UPPER ABDOMEN: No free air under the diaphragm. IMPRESSION: Mild cardiomegaly and small bilateral pleural effusio ns, right greater than left, with probable mild interstitial edema. Naz d by: Elvis Rush DO on 09/24/2019 3:39 AM Dictated By: ELVIS CLAUDIO ON DO 8 Transcrib ed By: LOREE on 09/24/19338 COPY TO: SHELLY HOOPER MD CT BRAIN AK8932-84-86 02:36:00 [place] [address] Patient Name: JOSHUA WHEELER MR #: [id number] : 1960 Age/Sex: 58/M Req #: [id number] Adm Physician: Ordered by: SHELLY HOOPER MD Report #: [id number] Location: ER Room/Bed: Procedure: [id number] CT/CT BRAIN WO Exam Date: 09/24/19 Exam Time: 0200 REPORT STATUS: Signed EXAMINATION: Head CT HISTORY: AMS, low blood sugar COMPARISON: Head CT 08/16/2019. TECH NIQUE: Helical axial images of the head were obtained. Reformatted coronal an d sagittal images from the axial data. Dose modulation, iterative reconstruct ion, and/or weight based adjustment of the mA/kV was utilized to reduce the ra diation dose to as low as reasonably achievable. Image quality: Motion/streaki ng artifact limits the evaluation of the skull base and posterior cranial nunu a. FINDINGS: Parenchyma: 1. A few scattered hypodensities i n the supratentorial white matter are nonspecific but are most compatible with chronic microvascular ischemic changes. Chronic lacunar infarcts present in t he bilateral thalami,, centered in the left llanos radiata extends to the body of the caudate nucleus and superior margin of the left lentiform nucleus and in near the junction of the right llanos radiata and anterior limb of the righ t internal capsule. 2. No mass or hemorrhage. No CT evidence of acute randa torial vascular insult. Extra-axial spaces:No abnormal density. N o extra-axial fluid collections Brain volume: Mild generalized volume lo ss. Ventricles: No hydrocephalus or displacement. Arteries: No density suggestive of thrombus. Dural sinuses: No abnormal density. Foramen magnum: No mass, Chiari malformation, or basilar invagination. Sella: No obvious mass. Paranasal/mastoid sinuses: Imaged portions u nremarkable. Skull/Scalp: No lytic or blastic lesions. No fractures. Incidental findings: Bilateral intraocular lens replacements. Atherosc lerotic calcifications in the carotid siphons and intradural vertebral arterie s. IMPRESSION: 1. No acute intracranial abnormalities. 2. Mild gener alized parenchymal volume loss. 3. Mild chronic microvascular ischemic changes and chronic lacunar infarcts as described. Signed by: Dr. Stephon Joshua M.D. on 09/24/2019 2:40 AM Dictated By: STEPHON JOSHUA MD Electronically S igned By: STEPHON JOSHUA MD on 09/24/19 0240 Transcribed By: LOREE on 09/24/19 0 240 COPY TO: SHELLY HOOPER MD Urine color determination 2019-09-24 01:11:00* Test Item Value Reference Range Interpretation Comments Urine Color (test code = 5778-6) YELLOW YELLOW [facility] AntonioUrine nhcdqwk4621-27-68 01:11:00* Test Item Value Reference Range Interpretation Comments Urine Clarity (test code = 79576-9) CLOUDY CLEAR [facility] Centerpecific gravity of Urine by Test strip 2019-09-24 01:11:00* Test Item Value Reference Range Interpretation Comments Urine Specific [place] (test code = 5811-5) 1.025 1.010-1.02 5 [facility] AntonioUrine pH measurement by automated test xjmgc5009-97-98 01:11:00* Test Item Value Reference Range Interpretation Comments Urine pH (test code = 52673-0) 7.5 5-7 [facility] AntonioUrine leukocyte esterase detection by robqmmvx1963-96-50 01:11:00* Test Item Value Reference Range Interpretation Comments Urine Leukocyte Esterase (test code = 5799-2) 2+ NEGATIVE [facility] AntonioUrine nitrite rrwngkqrr6571-43-88 01:11:00* Test Item Value Reference Range Interpretation Comments Urine Nitrite (test code = 62183-3) NEGATIVE NEGATIVE [facility] AntonioUrine protein measurement by test strip (mass/volume)2019-09-24 01:11:00* Test Item Value Reference Range Interpretation Comments Urine Protein (test code = 5804-0) >=300 NEGATIVE [facility] AntonioUrine glucose cspkmgqir9473-20-88 01:11:00* Test Item Value Reference Range Interpretation Comments Urine Glucose (UA) (test code = 2349-9) 1+ NEGATIVE [facility] AntonioUrine ketones detection by automated test tmwzj4338-89-21 01:11:00* Test Item Value Reference Range Interpretation Comments Urine Ketones (test code = 87677-5) NEGATIVE NEGATIVE [facility] AntonioUrine urobilinogen measurement by test strip (mass/volume)2019-09-24 01:11:00* Test Item Value Reference Range Interpretation Comments Urine Urobilinogen (test code = 27313-7) 0.2 0.2-1 [facility] AntonioUrine total bilirubin measurement (mass/volume)2019-09-24 01:11:00* Test Item Value Reference Range Interpretation Comments Urine Bilirubin (test code = 1978-6) NEGATIVE NEGATIVE [facility] AntonioUrine erythrocytes chbhdhyds6116-64-86 01:11:00* Test Item Value Reference Range Interpretation Comments Urine Blood (test code = 47621-3) 2+ NEGATIVE [facility] AntonioAutomated urine sediment leukocyte count by microscopy (number/high power field)2019-09-24 01:11:00* Test Item Value Reference Range Interpretation Comments Urine WBC (test code = 5821-4) >50 0-5 [facility] AntonioErythrocytes detection in urine sediment by light tcgjczbyec1488-79-98 01:11:00* Test Item Value Reference Range Interpretation Comments Urine RBC (test code = 18288-4) 21-50 0-5 [facility] AntonioBacteria detection in urine sediment by light qknwyzthzf0856-04-79 01:11:00* Test Item Value Reference Range Interpretation Comments Urine Bacteria (test code = 78474-5) MANY NONE [facility] AntonioEpithelial cells detection in urine sediment by light jltdqbbejl7264-52-41 01:11:00* Test Item Value Reference Range Interpretation Comments Urine Epithelial Cells (test code = 81689-5) FEW NONE [facility] AntonioFluoroscopic procedure less than one hour bavyjlgy8860-28-75 01:11:00* Test Item Value Reference Range Interpretation Comments Lactic Acid Level (test code = Lactic Acid Level) 1.4 0.5- 2.0 [facility] or plasma iron measurement (mass/volume)2019-09-24 01:11:00* Test Item Value Reference Range Interpretation Comments Iron Level (test code = 2498-4) 49 65-175 [facility]ere[facility] or plasma iron binding capacity measurement (mass/volume)2019-09-24 01:11:00* Test Item Value Reference Range Interpretation Comments Total Iron Binding Capacity (test code = 2500-7) 165 261-4 78 [facility]ererum or plasma iron saturation measurement (mass fraction)2019-09-24 01:11:00* Test Item Value Reference Range Interpretation Comments Percent Iron Saturation (test code = 2502-3) 30 15-50 [facility]ere[facility] or plasma transferrin measurement (mass/volume)2019-09-24 01:11:00* Test Item Value Reference Range Interpretation Comments Transferrin (test code = 3034-6) 118 174-364 [facility] AntonioAmmonia Qrx-qOoj1779-89-27 01:11:00* Test Item Value Reference Range Interpretation Comments Ammonia (test code = 25512-4) 33 31-123 [facility] AntonioBlood yoschox2698-16-01 01:11:00* Test Item Value Reference Range Interpretation Comments Blood Culture (test code = 09374466) NO GROWTH AFTER 48 HOURS [facility] AntonioGLUBED2020-05-03 07:56:00* Test Item Value Reference Range Interpretation Comments GLUBED (test code = GLUBED) 219 mg/dL 74-106 H Performed by certified lithograph operator at [facility] FCSISO1062-09-53 20:49:00* Test Item Value Reference Range Interpretation Comments GLUBED (test code = GLUBED) 131 mg/dL 74-106 H [facility] certified lithograph [facility]Not[facility]~ NRNQHL0398-71-83 17:25:00* Test Item Value Reference Range Interpretation Comments GLUBED (test code = GLUBED) 268 mg/dL 74-106 H Performed by certified lithograph operator at [facility] GSCFCL1374-22-13 12:12:00* Test Item Value Reference Range Interpretation Comments GLUBED (test code = GLUBED) 192 mg/dL 74-106 H [facility] certified lithograph [facility]~ HSAFYT9447-37-53 08:05:00* Test Item Value Reference Range Interpretation Comments GLUBED (test code = GLUBED) 136 mg/dL 74-106 H [facility] certified lithograph [facility]~ [id number] 20:46:00* Test Item Value Reference Range Interpretation Comments GLUBED (test code = GLUBED) 290 mg/dL 74-106 H Performed by certified lithograph operator at [facility] LDLRYR0380-39-72 16:35:00* Test Item Value Reference Range Interpretation Comments GLUBED (test code = GLUBED) 176 mg/dL 74-106 H [facility] certified lithograph [facility]~ [id number] 15:48:00* Test Item Value Reference Range Interpretation Comments VANCOMYCIN (test code = VANCO) 14.6 UG/ML 5.0-45.0 N LKAYGD8314-31-48 08:20:00* Test Item Value Reference Range Interpretation Comments GLUBED (test code = GLUBED) 197 mg/dL 74-106 H Per[facility] certified lithograph operator [facility]~ BASIC METABOLIC [id number] 06:12:00* Test Item Value Reference Range Interpretation [...] code = CA) 8.3 mg/dL 8.5-10.1 L OGIRHGOENW4473-79-62 05:55:00* Test Item Value Reference Range Interpretation Comments VANCOMYCIN (test code = VANCO) 24.8 UG/ML 5.0-45.0 N CBC W/AUTO CATT1154-81-89 05:22:00* Test Item Value Reference Range Interpretation [...] DIFF REQUIRED (test code = MDIFF) NO [id number] 21:41:00* Test Item Value Reference Range Interpretation Comments GLURADHA (test code = GLUBED) 319 mg/dL 74-106 H Performed by certified lithograph operator at [facility] PLEURAL [id number] 17:03:00 RUN DATE: 08/28/19 [facility] PAGE 1 RUN TIME: 1703 Specimen Inqui ry RUN USER: INTERFACE PATIENT: JOSHUA CACERES ACCT #: [id number] [facility] U #: [id number] AGE/SX: 58/M ROOM: [facility] RE08/23/19REG DR: Sung Vail MD : 58 BED: A DIS: STATUS: ADM IN TLOC: SPEC #: [id number] RECD: 08/26/19 STATUS: SHIRA REQ #: [id number] MARY: 08/26/19- SUBM DR: Sung Vail MD ENTERED: 08/26/19 SP TYPE: PLEURAL FL OTHR DR: Winn[facility] benjy or Family Physician Kiran Lizama MD, Muhammad MD Khan,Gerson Meier MD, MDORDERED: TONIA COPIES TO: Winnie Primary [place] [address] [place] [address] [email or web address] Edin Fraire MD [address] [place] [address] Sung Vail MD [address] [facility] [address] [place], [place] [id number] Hodan Ortiz MD [address] [facility] [address] [place], [place] [phone] Gerson Ortiz MD [address] [id number] PROCEDURES: TONIA (08/28/19-1342) TISSUES: PLEURAL FLUID, NOS CONTINUED ON NEXT PAGE RUN DATE: 08/28/19 [facility] PAGE 2 RUN TIME: 1703 Specimen Inquiry RUN USER: INTERFACE SPEC #: [id number] PATIENT : NICKIJOSHUA GALLAGHERE #[id number] (Continued) CLINICAL HISTORY COLLECTION DATE: 08/26/19 PLEURAL EFFUSION FIN AL DIAGNOSIS Left pleural fluid, thoracentesis: NEGATIVE FOR MALIGNANC Y INCREASED MACROPHAGES, FEW MIXED INFLAMMATORY CELLS, RED BLOOD CELLS RRB/keerthi D 28070, 79368 MACROSCOPIC The specimen is designated as "left pleural fluid". It consists of 7 cc of yellow fluid for concentration and evaluation. GROSS PERFORMED AT [facility] [address] [facility] [place] [address] [phone])[phone] MICROSCOPIC Two smear slides, a cytospin an d cell block are prepared from the fluid. All of the stains, including any co ntrols performed, stain appropriately. MICROSCOPIC PERFORMED AT [facility] [address] [facility] [place] [address] [phone] PERFORMING SITE Diagnosis performed at: [facility], [place] [address] [facility] [address] CONTINUED ON NEXT PAGE RUN DATE: [place] - Lab PAGE 3 R UN TIME: 1703 Specimen Inquiry RUN USER: INTERFACE ----- -------SPEC #: [id number] PATIENT: JOSHUA CACERES #[id number] (Continued) Signed SIGNATURE ON FILE Galdino Muro MD 08/28/19 1703 END OF REPORT [id number] 16:03:00* Test Item Value Reference Range Interpretation Comments GLUBED (test code = GLUBED) 106 mg/dL 74-106 N [facility] certified [facility] [id number] 12:02:00* Test Item Value Reference Range Interpretation Comments GLUBED (test code = GLUBED) 285 mg/dL 74-106 H Performed by certified lithograph operator [facility] [id number] 08:07:00* Test Item Value Reference Range Interpretation Comments GLUBED (test code = GLUBED) 122 mg/dL 74-106 H Performed by certified lithograph [facility] CBC W/AUTO [id number] 05:43:00* Test Item Value Reference Range Interpretation [...] DIFF REQUIRED (test code = MDIFF) NO [id number] 20:25:00* Test Item Value Reference Range Interpretation Comments GLUBED (test code = GLUBED) 195 mg/dL 74-106 H Performed by certified lithograph [facility] [id number] 15:52:00* Test Item Value Reference Range Interpretation Comments GLUBED (test code = GLUBED) 141 mg/dL 74-106 H Performed by certified lithograph operator at [facility] - SP THORACENTESIS [id number] 12:47:00 Name: JOSHUA CACERES [facility] : 1960 Age/S: 58 / M [address] Unit #: [id number] Loc: [place] [address] Phys: Sung Vail MD Acct: [id number] Dis Date: Status: ADM IN PHONE #: [phone] Exam Date: 08/26/2019 1427 FAX #: [phone] Reason: / EXAMS: CPT CODE: [id number] SP THORACENTESIS W/IMAG 06059 Fluoro Time: DAP (Gy m2): Air Kerma [...] administered and using sonographic guidance an 8 Greek pigtail catheter was inserted into the left pleural cavity. 1.3 L of clear yellowish pleural fluid were drained and samples were sent to the lab. The drainage catheter was then removed. No apparent complications. IMPRESSION: Successful ultrasound-guided large-volume left-sided thorac entesis. Location code: [facility] [place] ctronically Signed by Rylie Rey on 2019 at 1247 Reported and signed by: Vic Rey M.D. CC: Kiran Lizama MD; Sung Vail MD Technologist: KEN NICOLAS ABALONE FISHERMAN Trnscb Date/Time: 08/27/2019 (0941) t.[email or web address].GRW Orig Print D/T: S: 08/27/2019 (1151) PAGE 1 Signed Report LIPID PROFILE (CORONARY [...] measurement.========= SPECIMEN COMMENTS: add to labsTHYROID STIMULATING [id number] 12:21:00* Test Item Value Reference Range Interpretation Comments THYROID STIMULATING HORMONE (test code = TSH) 1.220 uIU/mL 0.36-3.7 4 N TSH REFERENCE RANGES: EUTHYROID: 0.35 - 4.3 mIU/mL HYPO : > 5.5 mIU/mL HYPER : < 0.35 mIU/mL SPECIMEN COMMENTS: add to labsPLEURAL FLD CELL CT/[id number] 08:45:00* Test Item Value Reference Range Interpretation [...] M.D.08/27/19 SPECIMEN COMMENTS: LEFT PLEURAL FLUIDPLEURAL FLD [id number] 08:45:00* Test Item Value Reference Range Interpretation Comments PLEURAL FLD PH (test code = PHPL) 7.0 SPECIMEN COMMENTS: LEFT PLEURAL FLUIDPLEURAL FLD [id number] 08:45:00* Test Item Value Reference Range Interpretation Comments PLEURAL FLD GLUCOSE (test code = GLUPL) 157 MG/DL SPECIMEN COMMENTS: LEFT PLEURAL FLUIDPLEURAL FLD TOTAL [id number] 08:45:00* Test Item Value Reference Range Interpretation Comments PLEURAL FLD TOTAL PROTEIN (test code = PROTPL) 4.2 gram/dL SPECIMEN COMMENTS: LEFT PLEURAL FLUIDPLEURAL FLD [id number] 08:45:00* Test Item Value Reference Range Interpretation Comments PLEURAL FLD LDH (test code = LDHPL) 182 IUnit/L SPECIMEN COMMENTS: LEFT PLEURAL FLUIDPLEURAL FLD [id number] 08:45:00 * Test Item Value Reference Range Interpretation Comments PLEURAL FLD CHOLESTEROL (test code = CHOLPL) 62 MG/DL SPECIMEN COMMENTS: LEFT PLEURAL FLUIDPLEURAL FLD [id number] 08:45:00 * Test Item Value Reference Range Interpretation Comments PLEURAL FLD TRIGLYCERIDE (test code = TRIGPL) 10 MG/DL SPECIMEN COMMENTS: LEFT PLEURAL FLUIDBASIC METABOLIC [id number] 08:28:00* Test Item Value Reference Range Interpretation [...] code = CA) 8.3 mg/dL 8.5-10.1 L [id number] 08:01:00* Test Item Value Reference Range Interpretation Comments GLUBED (test code = GLUBED) 119 mg/dL 74-106 H Performed by certified lithograph operator at [facility] CBC W/AUTO [id number] 07:52:00* Test Item Value Reference Range Interpretation [...] = NRBC#) 0.00 K/mm3 0.0-0.1 N CPK-MB [id number] 03:37:00* Test Item Value Reference Range Interpretation [...] not valid with a normal total CK. PHEBOHIG-[id number] 03:37:00* Test Item Value Reference Range Interpretation Comments TROPONIN-I (test code = TROPI) 0.029 ng/mL 0-0.045 N - XR CHEST 1 [id number] 02:41:00 FAX: Kiran Matute [phone] [place]: B St: ADM FAX: Sung Milan MD [phone] Name: JOSHUA CACERES [facility] : 1960 Age/S: 58/M [address] Unit #: [id number] [facility] [place] [facility] [address] Phys: Sung Vail MD Acct: [id number] Dis Date: Status: ADM IN PHONE #: [phone] Exam Date: 08/27/2019 0205 FAX #: [phone] Reason: CHEST PAIN EXAMS: CPT CODE: [id number] XR CHEST 1 V 99140 AFTER HOURS SERVICE ON: 08/27/2019 2:39 AM [...] MD; Sung Castañeda MD Technologist: Sharon Abreu [facility] Date/Time/By: 08/27/2019 (024) : By: [email or web address] Orig Print D/T: S: 08/27/2019 (0244) PAGE 1 Signed Report [id number] 20:59:00 * Test Item Value Reference Range Interpretation Comments GLUBED (test code = GLUBED) 144 mg/dL 74-106 H Performed by certified lithograph operator at [facility] PLEURAL FLD CELL [id number] 20:15:00* Test Item Value Reference Range Interpretation [...] PATHOLOGIST SPECIMEN COMMENTS: LEFT PLEURAL FLUIDPLEURAL FLD [id number] 20:15:00* Test Item Value Reference Range Interpretation Comments PLEURAL FLD PH (test code = PHPL) 7.0 SPECIMEN COMMENTS: LEFT PLEURAL FLUIDPLEURAL FLD [id number] 20:15:00* Test Item Value Reference Range Interpretation Comments PLEURAL FLD GLUCOSE (test code = GLUPL) 157 MG/DL SPECIMEN COMMENTS: LEFT PLEURAL FLUIDPLEURAL FLD TOTAL [id number] 20:15:00* Test Item Value Reference Range Interpretation Comments PLEURAL FLD TOTAL PROTEIN (test code = PROTPL) 4.2 gram/dL SPECIMEN COMMENTS: LEFT PLEURAL FLUIDPLEURAL FLD [id number] 20:15:00* Test Item Value Reference Range Interpretation Comments PLEURAL FLD LDH (test code = LDHPL) 182 IUnit/L SPECIMEN COMMENTS: LEFT PLEURAL FLUIDPLEURAL FLD [id number] 20:15:00 * Test Item Value Reference Range Interpretation Comments PLEURAL FLD CHOLESTEROL (test code = CHOLPL) 62 MG/DL SPECIMEN COMMENTS: LEFT PLEURAL FLUIDPLEURAL FLD [id number] 20:15:00 * Test Item Value Reference Range Interpretation Comments PLEURAL FLD TRIGLYCERIDE (test code = TRIGPL) 10 MG/DL SPECIMEN COMMENTS: LEFT PLEURAL FLUIDPLEURAL FLD CELL CT/[id number] 16:36:00 * Test Item Value Reference Range [...] PATHOLOGIST SPECIMEN COMMENTS: LEFT PLEURAL FLUIDPLEURAL FLD [id number] 16:36:00* Test Item Value Reference Range Interpretation Comments PLEURAL FLD PH (test code = PHPL) 7.0 SPECIMEN COMMENTS: LEFT PLEURAL FLUIDPLEURAL FLD [id number] 16:36:00* Test Item Value Reference Range Interpretation Comments PLEURAL FLD GLUCOSE (test code = GLUPL) 157 MG/DL SPECIMEN COMMENTS: LEFT PLEURAL FLUIDPLEURAL FLD TOTAL [id number] 16:36:00* Test Item Value Reference Range Interpretation Comments PLEURAL FLD TOTAL PROTEIN (test code = PROTPL) 4.2 gram/dL SPECIMEN COMMENTS: LEFT PLEURAL FLUIDPLEURAL FLD [id number] 16:36:00* Test Item Value Reference Range Interpretation Comments PLEURAL FLD LDH (test code = LDHPL) 182 IUnit/L SPECIMEN COMMENTS: LEFT PLEURAL FLUIDPLEURAL FLD [id number] 16:36:00 * Test Item Value Reference Range Interpretation Comments PLEURAL FLD CHOLESTEROL (test code = CHOLPL) 62 MG/DL SPECIMEN COMMENTS: LEFT PLEURAL FLUIDPLEURAL FLD [id number] 16:36:00 * Test Item Value Reference Range Interpretation Comments PLEURAL FLD TRIGLYCERIDE (test code = TRIGPL) 10 MG/DL SPECIMEN COMMENTS: LEFT PLEURAL FLUIDPLEURAL FLD CELL CT/[id number] 16:31:00 * Test Item Value Reference Range [...] PATHOLOGIST SPECIMEN COMMENTS: LEFT PLEURAL FLUIDPLEURAL FLD [id number] 16:31:00* Test Item Value Reference Range Interpretation Comments PLEURAL FLD PH (test code = PHPL) SPECIMEN COMMENTS: LEFT PLEURAL FLUIDPLEURAL FLD [id number] 16:31:00* Test Item Value Reference Range Interpretation Comments PLEURAL FLD GLUCOSE (test code = GLUPL) 157 MG/DL SPECIMEN COMMENTS: LEFT PLEURAL FLUIDPLEURAL FLD TOTAL [id number] 16:31:00* Test Item Value Reference Range Interpretation Comments PLEURAL FLD TOTAL PROTEIN (test code = PROTPL) 4.2 gram/dL SPECIMEN COMMENTS: LEFT PLEURAL FLUIDPLEURAL FLD [id number] 16:31:00* Test Item Value Reference Range Interpretation Comments PLEURAL FLD LDH (test code = LDHPL) 182 IUnit/L SPECIMEN COMMENTS: LEFT PLEURAL FLUIDPLEURAL FLD [id number] 16:31:00 * Test Item Value Reference Range Interpretation Comments PLEURAL FLD CHOLESTEROL (test code = CHOLPL) 62 MG/DL SPECIMEN COMMENTS: LEFT PLEURAL FLUIDPLEURAL FLD [id number] 16:31:00 * Test Item Value Reference Range Interpretation Comments PLEURAL FLD TRIGLYCERIDE (test code = TRIGPL) 10 MG/DL SPECIMEN COMMENTS: LEFT PLEURAL FLUIDPLEURAL FLD CELL CT/[id number] 16:05:00 * Test Item Value Reference Range [...] PATHOLOGIST SPECIMEN COMMENTS: LEFT PLEURAL FLUIDPLEURAL FLD [id number] 16:05:00* Test Item Value Reference Range Interpretation Comments PLEURAL FLD PH (test code = PHPL) SPECIMEN COMMENTS: LEFT PLEURAL FLUIDPLEURAL FLD [id number] 16:05:00* Test Item Value Reference Range Interpretation Comments PLEURAL FLD GLUCOSE (test code = GLUPL) 157 MG/DL SPECIMEN COMMENTS: LEFT PLEURAL FLUIDPLEURAL FLD TOTAL [id number] 16:05:00* Test Item Value Reference Range Interpretation Comments PLEURAL FLD TOTAL PROTEIN (test code = PROTPL) 4.2 gram/dL SPECIMEN COMMENTS: LEFT PLEURAL FLUIDPLEURAL FLD [id number] 16:05:00* Test Item Value Reference Range Interpretation Comments PLEURAL FLD LDH (test code = LDHPL) 182 IUnit/L SPECIMEN COMMENTS: LEFT PLEURAL FLUIDPLEURAL FLD [id number] 16:05:00 * Test Item Value Reference Range Interpretation Comments PLEURAL FLD CHOLESTEROL (test code = CHOLPL) 62 MG/DL SPECIMEN COMMENTS: LEFT PLEURAL FLUIDPLEURAL FLD [id number] 16:05:00 * Test Item Value Reference Range Interpretation Comments PLEURAL FLD TRIGLYCERIDE (test code = TRIGPL) 10 MG/DL SPECIMEN COMMENTS: LEFT PLEURAL [id number] 15:39:00* Test Item Value Reference Range Interpretation Comments GLUBED (test code = GLUBED) 219 mg/dL 74-106 H Performed by certified lithograph operator at [facility] - XR CHEST 1 [id number] 15:03:00 FAX: Kiran Matute [phone] [place]: B St: ADM FAX: Sung Milan MD [phone] Name: JOSHUA CACERES [facility] : 1960 Age/S: 58/M [address] [facility] Unit #: [id number] Loc: [address] [place] [address] Phys: Vic Rey MD Acct: [id number] Dis Date: Status: ADM IN PHONE #: [phone] Exam Date: 08/26/2019 8245 FAX #: [phone] Reason: ESRD; SOB; pleural effusions; st.p. L thoracent EXAMS: CPT CODE: [id number] XR CHEST 1 V 66815 REASON FOR EXAM: ESRD; SOB; pleural effusions; [...] right-sided pleural effusi on are unchanged. Location: [facility] Electronic ally Signed by Kyle Mcelroy MD on 08/26/2019 at 1503 Repo rted and signed by: Kyle Mcelroy MD CC: Kiran Lizama MD; Sung Vail MD Technologist: Lulu Edwards(R); Niurka TORRES(R) Trnscrd Date/Time/By: 08/26/2019 (1503) : By: [email or web address] Orig Print D/T: S: 08/26/2019 (1503) PAGE 1 Signed Report [id number] 11:10:00* Test Item Value Reference Range Interpretation Comments GLUBED (test code = GLUBED) 179 mg/dL 74-106 H Performed by certified lithograph operator at [facility] Coronavirus 2019 nCoV Wsbqtxl5632-15-22 09:52:00* Test Item Value Reference Range Interpretation Comments Coronavirus 2019 nCoV Bedside (test code = [id number]) Negative Emergent procedure? YESComments: FOR THORACENTESISPROTHROMBIN [id number] 09:17:00* Test Item Value Reference Range Interpretation [...] (2.5-3.5) IS PATIENT ON ANTICOAGULANTS? NTHROMBOPLASTIN TIME [id number] 09:17:00* Test Item Value Reference Range Interpretation Comments THROMBOPLASTIN TIME PARTIAL (test code = PTT) 33.8 seconds 23.0-37. 0 N IS PATIENT ON ANTICOAGULANTS? NAB HEPATITIS B [id number] 08:09:00* Test Item Value Reference Range Interpretation Comments AB HEPATITIS B SURFACE (test code = HBSAB) Reactive () Non Reactive: Inconsistent with immunity, less than 10 mIU/mL Reactive: Consistent with immunity, greater than 9.9 mIU/mLPerformed At: [facility] [id number] Chery MD Ph:[phone] HEPATITIS B CORE ANTIBODY,[id number] 08:09:00* Test Item Value Reference Range Interpretation Comments HEPATITIS B CORE ANTIBODY,TOT (test code = HBCAB) Negative Nega tive Performed At: [facility] [address] [id number] Chery MD Ph:[phone] [id number] 08:07:00* Test Item Value Reference Range Interpretation Comments GLUBED (test code = GLUBED) 110 mg/dL 74-106 H Performed by certified lithograph operator at [facility] [id number] 20:34:00* Test Item Value Reference Range Interpretation Comments GLUBED (test code = GLUBED) 237 mg/dL 74-106 H Performed by certified lithograph operator at [facility] [id number] 20:34:00* Test Item Value Reference Range Interpretation Comments GLUBED (test code = GLUBED) 177 mg/dL 74-106 H Performed by certified lithograph operator at [facility] - CHST W/[id number] 18:25:00 Name: JOSHUA CACERES [facility] : 1960 Age/S: 58 / M [address] [facility] Unit #: [id number] Loc: [place] [address] Phys: Edin Fraire MD Acct: [id number] Dis Date: Status: ADM IN PHONE #: [phone] Exam Date: 08/25/2019 1800 FAX #: [phone] Reason: pleural effusion EXAMS: CPT CODE: [id number] CHST W/MEDIASTINUM 70938 REASON FOR EXAM: pleural effusion EXAM ORDER DATE: 08/25/2019 5:26 PM Attending Rylie: Edin Fraire MD Location:[facility] PROCEDURE: - US CHST W/MEDIASTINUM FINDINGS: Limited focal ultrasound performed for assessment of pleural effusions IMPRESSION: Large left pleural effusion. Small right pleural effusion. at 1825 Reported and signed by: Cheko Joseph M.D. CC: Kiran Lizama MD; Aramis Gore II, MD; Edin Fraire MD Technologist: Tani Rose Trnscb Date/Time: 08/25/2019 (1824) t.MARILEER.VTL Orig Print D/T: S: 08/25/2019 (1827) Probe: PAGE 1 Signed Report RENAL FUNCTION [id number] 08:38:00* Test Item Value Reference Range Interpretation [...] code = PHOS) 8.3 mg/dL 2.5-4.9 H [id number] 08:25:00* Test Item Value Reference Range Interpretation Comments GLUBED (test code = GLUBED) 122 mg/dL 74-106 H Performed by certified lithograph operator at [facility] RENAL FUNCTION [id number] 08:24:00* Test Item Value Reference Range Interpretation [...] code = PHOS) mg/dL 2.5-4.9 CBC W/O [id number] 08:06:00* Test Item Value Reference Range Interpretation [...] code = MPV) 11.3 fL 6.7-11.0 H [id number] 21:00:00* Test Item Value Reference Range Interpretation Comments GLUBED (test code = GLUBED) 172 mg/dL 74-106 H Performed by certified lithograph operator at [facility] BASIC METABOLIC [id number] 16:34:00* Test Item Value Reference Range Interpretation [...] code = CA) 8.8 mg/dL 8.5-10.1 N [id number] 15:56:00* Test Item Value Reference Range Interpretation Comments GLUBED (test code = GLUBED) 69 mg/dL 74-106 L Performed by certified lithograph operator at [facility] [id number] 12:44:00* Test Item Value Reference Range Interpretation Comments GLUBED (test code = GLUBED) 284 mg/dL 74-106 H Performed by certified lithograph operator at [facility] [id number] 12:44:00* Test Item Value Reference Range Interpretation Comments GLUBED (test code = GLUBED) 116 mg/dL 74-106 H Performed by certified lithograph operator at [facility] BASIC METABOLIC [id number] 06:12:00* Test Item Value Reference Range Interpretation [...] CA) 8.2 mg/dL 8.5-10.1 L BASIC METABOLIC [id number] 04:57:00* Test Item Value Reference Range Interpretation [...] code = CA) mg/dL 8.5-10.1 CBC W/AUTO [id number] 04:20:00* Test Item Value Reference Range Interpretation [...] DIFF REQUIRED (test code = MDIFF) NO [id number] 21:59:00* Test Item Value Reference Range Interpretation Comments GLUBED (test code = GLUBED) 229 mg/dL 74-106 H Performed by certified lithograph operator at [facility] [id number]-[id number] 21:00:00* Test Item Value Reference Range Interpretation Comments TROPONIN-I (test code = TROPI) 0.048 ng/mL 0-0.045 HH Results called to [id number] by AnjanaLABROMANA 08/23/192056Critical results verified and read back by Nurse? Y COMMENTS TO SPOT FACER: COLLECT 3 HOURS AFTER PREVIOUS [id number] 18:00:00* Test Item Value Reference Range Interpretation Comments TROPONIN-I (test code = TROPI) 0.038 ng/mL 0-0.045 N COMMENTS TO SPOT FACER: COLLECT 3 HOURS AFTER PREVIOUS [id number] 17:56:00* Test Item Value Reference Range Interpretation Comments GLUBED (test code = GLUBED) 158 mg/dL 74-106 H Performed by certified lithograph operator at [facility] AG HEPAT B [id number] 11:52:00* Test Item Value Reference Range Interpretation Comments AG HEPAT B SURF (test code = HBSAG) Nonreactive Index Nonreactive BASIC METABOLIC [id number] 10:39:00* Test Item Value Reference Range Interpretation [...] code = CA) 8.9 mg/dL 8.5-10.1 N [id number]-[id number] 10:39:00* Test Item Value Reference Range Interpretation Comments TROPONIN-I (test code = TROPI) 0.036 ng/mL 0-0.045 N BASIC METABOLIC [id number] 10:30:00* Test Item Value Reference Range Interpretation [...] CALCIUM (test code = CA) mg/dL 8.5-10.1 [id number] 10:30:00* Test Item Value Reference Range Interpretation Comments TROPONIN-I (test code = TROPI) ng/mL 0-0.045 - XR CHEST 1 [id number] 10:23:00 FAX: Kiran Matute [phone] [place]: St: PRE FAX: Vamshi Talbot MD [phone] Name: JOSHUA CACERES [facility] : 1960 Age/S: 58/M [address] [facility] Unit #: [id number] Loc: [place] [address] Phys: Vamshi Talbot MD Acct: [id number] Dis Date: Status: PRE ER PHONE #: [phone] Exam Date: 08/23/2019 1015 FAX #: [phone] Reason: CHEST PAIN EXAMS: CPT CODE: [id number] XR CHEST 1 V 93855 REASON FOR EXAM: CHEST PAIN EXAM ORDER DATE: 08/23/2019 10:07 AM Ordering: Vamshi Talbot MD Attending:Vamshi Talbot MD Location:[facility] PROCEDURE: - XR CHEST 1 V COMPARISON: [...] MD Technologist: OXANA TORRES(R) Trnscrd Date/Time/By: 08/23/2019 (4170) : By: DavidVTL Orig Print D/T: S: 08/23/2019 (2551) PAGE 1 Signed Report CBC W/O [id number] 10:19:00* Test Item Value Reference Range Interpretation [...] = MPV) 11.5 fL 6.7-11.0 H Bedside Vghehzd0793-31-45 16:54:00* Test Item Value Reference Range Interpretation Comments Bedside Glucose (test code = 43553-7) 192 70-120 H Meter ID: [id number] [facility] 2019-08-[facility] 08:37:00* Test Item Value Reference Range Interpretation Comments Blood Culture (test code = 86775676) NO GROWTH AFTER 72 HOURS [facility] Grlur5909-41-13 05:38:00* Test Item Value Reference Range Interpretation Comments White Blood Count (test code = 6690-2) 6.11 4.8-10.8 [facility] Blood [id number] 05:38:00* Test Item Value Reference Range Interpretation Comments Red Blood Count (test code = 789-8) 3.18 4.3-5.7 L [facility] AntonioHemoglobin2020-04-21 05:38:00* Test Item Value Reference Range Interpretation Comments Hemoglobin (test code = 97565-7) 9.2 14.0-18.0 L [facility] AntonioHematocrit2020-04-21 05:38:00* Test Item Value Reference Range Interpretation Comments Hematocrit (test code = 4544-3) 28.7 38.2-49.6 L [facility] AntonioMean Corpuscular Nvttku7215-33-88 05:38:00* Test Item Value Reference Range Interpretation Comments Mean Corpuscular Volume (test code = 787-2) 90.3 81-99 [facility] Antonio[facility] Corpuscular Mizeemaoob7427-19-88 05:38:00* Test Item Value Reference Range Interpretation Comments Mean Corpuscular Hemoglobin (test code = 785-6) 28.9 28-32 [facility] AntonioMean Corpuscular Hemoglobin Concent 2019-08-19 05:38:00* Test Item Value Reference Range Interpretation Comments Mean Corpuscular Hemoglobin Concent (test code = 786-4) 32.1 31-35 [facility] Cell Distribution Wdqgs5072-68-05 05:38:00* Test Item Value Reference Range Interpretation Comments Red Cell Distribution Width (test code = 09776-7) 14.6 11.7 -14.4 H [facility] AntonioPlatelet Quvkh6030-49-49 05:38:00* Test Item Value Reference Range Interpretation Comments Platelet Count (test code = 777-3) 205 140-360 [facility] AntonioNeutrophils (%) (Auto)2019-08-19 05:38:00 * Test Item Value Reference Range Interpretation Comments Neutrophils (%) (Auto) (test code = 36316-6) 64.8 38.7-80.0 [facility] AntonioLymphocytes (%) (Auto)2019-08-19 05:38:00 * Test Item Value Reference Range Interpretation Comments Lymphocytes (%) (Auto) (test code = 736-9) 16.4 18.0-39.1 L [facility] AntonioMonocytes (%) (Auto)2019-08-19 05:38:00* Test Item Value Reference Range Interpretation Comments Monocytes (%) (Auto) (test code = 5905-5) 10.6 4.4-11.3 [facility] AntonioEosinophils (%) (Auto)2019-08-19 05:38:00 * Test Item Value Reference Range Interpretation Comments Eosinophils (%) (Auto) (test code = 713-8) 7.2 0.0-6.0 H [facility] Antonio[facility]ophils (%) (Auto)2019-08-19 05:38:00* Test Item Value Reference Range Interpretation Comments Basophils (%) (Auto) (test code = 706-2) 0.7 0.0-1.0 [facility] AntonioIM GRANULOCYTES %2019-08-19 05:38:00* Test Item Value Reference Range Interpretation Comments IM GRANULOCYTES % (test code = IM GRANULOCYTES %) 0.3 0.0- 1.0 [facility] AntonioNeutrophils # (Auto)2019-08-19 05:38:00* Test Item Value Reference Range Interpretation Comments Neutrophils # (Auto) (test code = 751-8) 4.0 2.1-6.9 [facility] AntonioLymphocytes # (Auto)2019-08-19 05:38:00* Test Item Value Reference Range Interpretation Comments Lymphocytes # (Auto) (test code = 64219-4) 1.0 1.0-3.2 [facility] AntonioMonocytes # (Auto)2019-08-19 05:38:00* Test Item Value Reference Range Interpretation Comments Monocytes # (Auto) (test code = 742-7) 0.7 0.2-0.8 [facility] AntonioEosinophils # (Auto)2019-08-19 05:38:00* Test Item Value Reference Range Interpretation Comments Eosinophils # (Auto) (test code = 711-2) 0.4 0.0-0.4 [facility] [facility]2019-08-19 05:38:00* Test Item Value Reference Range Interpretation Comments Basophils # (Auto) (test code = 704-7) 0.0 0.0-0.1 [facility] AntonioAbsolute Immature Granulocyte (auto 2019-08-19 05:38:00* Test Item Value Reference Range Interpretation Comments Absolute Immature Granulocyte (auto (dany t code = Absolute Immature Granulocyte (auto) 0.02 0-0.1 [facility]odium Lwcen9059-24-43 05:31:00* Test Item Value Reference Range Interpretation Comments Sodium Level (test code = 2951-2) 137 136-145 [facility] AntonioPotassium Umgnd5299-66-02 05:31:00* Test Item Value Reference Range Interpretation Comments Potassium Level (test code = 2823-3) 4.5 3.5-5.1 [facility] AntonioChloride Fzblv6705-66-74 05:31:00* Test Item Value Reference Range Interpretation Comments Chloride Level (test code = 2075-0) 101 98-107 [facility] AntonioCarbon Dioxide Xshaz3702-65-04 05:31:00* Test Item Value Reference Range Interpretation Comments Carbon Dioxide Level (test code = 2028-9) 29 22-29 [facility] AntonioAnion Mmr0194-09-31 05:31:00* Test Item Value Reference Range Interpretation Comments Anion Gap (test code = 95373-1) 11.5 8-16 [facility] AntonioBlood Urea Mixolbsb8343-65-35 05:31:00* Test Item Value Reference Range Interpretation Comments Blood Urea Nitrogen (test code = 3094-0) 54 7-26 H [facility] AntonioCreatinine2020-04-21 05:31:00* Test Item Value Reference Range Interpretation Comments Creatinine (test code = 2160-0) 3.92 0.72-1.25 H [facility] AntonioBUN/Creatinine Lxlsd8701-84-12 05:31:00* Test Item Value Reference Range Interpretation Comments BUN/Creatinine Ratio (test code = 3097-3) 14 6-25 [facility] AntonioEstimat Glomerular Filtration Rate 2019-08-19 05:31:00* Test Item Value Reference Range Interpretation Comments Estimat Glomerular Filtration Rate (test code = 006467787) 16 >60 L Ranges were taken from the National Kidney Disease Education Program and the Pending sale to [facility]ney Foundation literature.Reference ranges:60 or greater: Yvgshw42-08 ( for 3 consecutive months): Chronic kidney disease 15 or less: Kidney failureChildren's Hospital of San AntonioGlucose Tbdme3790-08-16 05:31:00* Test Item Value Reference Range Interpretation Comments Glucose Level (test code = GPC7958) 143 74-118 H [facility] AntonioCalcium Aahbn8769-72-00 05:31:00* Test Item Value Reference Range Interpretation Comments Calcium Level (test code = 48545-0) 8.9 8.4-10.2 [facility] AntonioPhosphorus Qvzfu3165-18-22 05:31:00* Test Item Value Reference Range Interpretation Comments Phosphorus Level (test code = ZJS6135) 4.9 2.3-4.7 H [facility] AntonioMagnesium Xybob6404-61-46 05:31:00* Test Item Value Reference Range Interpretation Comments Magnesium Level (test code = 70581-2) 2.0 1.3-2.1 [facility] AntonioTotal Drfmbxjke1692-06-00 05:31:00* Test Item Value Reference Range Interpretation Comments Total Bilirubin (test code = 1975-2) 0.4 0.2-1.2 [facility] AntonioAspartate Amino Transf (AST/SGOT) 2019-08-19 05:31:00* Test Item Value Reference Range Interpretation Comments Aspartate Amino Transf (AST/SGOT) (test code = Aspartate Amino Transf (AST/SGOT)) 31 5-34 [facility] AntonioAlanine Aminotransferase (ALT/SGPT) 2019-08-19 05:31:00* Test Item Value Reference Range Interpretation Comments Alanine Aminotransferase (ALT/SGPT) (test code = 1742-6) 34 0-55 [facility] AntonioTotal Xpawmwj3257-57-17 05:31:00* Test Item Value Reference Range Interpretation Comments Total Protein (test code = 2885-2) 6.9 6.5-8.1 [facility] AntonioAlbumin2020-04-21 05:31:00* Test Item Value Reference Range Interpretation Comments Albumin (test code = 1751-7) 2.4 3.5-5.0 L [facility] AntonioGlobulin2020-04-21 05:31:00* Test Item Value Reference Range Interpretation Comments Globulin (test code = 38381-9) 4.5 2.3-3.5 H [facility] AntonioAlbumin/Globulin Dbrck4982-99-92 05:31:00 * Test Item Value Reference Range Interpretation Comments Albumin/Globulin Ratio (test code = 1759-0) 0.5 0.8-2.0 L [facility] AntonioAlkaline Pbmazuhfaik0494-76-00 05:31:00* Test Item Value Reference Range Interpretation Comments Alkaline Phosphatase (test code = 6768-6) 156 40-150 H [facility] AntonioPhosphorus vlclwzqteav2259-70-54 04:50:00 * Test Item Value Reference Range Interpretation Comments Phosphorus Level (test code = WIC7085) 4.9 2.3-4.7 [facility] Centererum or plasma magnesium measurement (mass/volume)2019-08-19 04:50:00* Test Item Value Reference Range Interpretation Comments Magnesium Level (test code = 70320-2) 2.0 1.3-2.1 [facility] AntonioCHEST SINGLE (PORTABLE)2019-08-18 08:44:00 [facility] [address] [place] [address] Patient Name: JOSHUA WHEELER MR #: [id number] : 1960 Age/Sex: 58/M Req #: [id number] Adm Physician: SUNG VAIL MD Ordered by: GERMAIN ARNETT MD Report #: [id number] Location: ICU Room/Bed: ICU [facility] Procedure: [id number] DX/CHEST SINGLE (PORTABLE) Exam Date: 08/18/19 Exam [...] By: KEN BISWAS MD 4 Transcribed By: [facility] RAN on 08/18/19844 COPY TO: GERMAIN ARNETT MD B-Type Natriuretic Qrohfoq4765-83-42 05:58:00* Test Item Value Reference Range Interpretation Comments B-Type Natriuretic Peptide (test code = 73469-1) > 5000.0 0-[address] [facility] Eoh-sSee3427-72-20 04:40:00* Test Item Value Reference Range Interpretation Comments B-Type Natriuretic Peptide (test code = 93025-3) > 5000.0 0-[address] [facility] HospitalCHES SINGLE (PORTABLE)2019-08-17 08:41:00 [facility] [address] [address] Patient Name: JOSHUA WHEELER MR #: [id number] : 1960 Age/Sex: 58/M Req #: [id number] Adm Physician: SUNG VAIL MD Ordered by: GERMAIN ARNETT MD Report #: [id number] Location: ICU Room/Bed: ICU [facility] Procedure: [id number] DX/CHEST SINGLE (PORTABLE) Exam Date: 08/17/19 Exam [...] COPY TO: GERMAIN ARNETT MD Arterial Blood qV6070-24-67 06:30:00* Test Item Value Reference Range Interpretation Comments Arterial Blood pH (test code = 2744-1) 7.42 7.35-7.45 [facility] AntonioArterial Blood Partial Pressure CO2 2019-08-17 06:30:00* Test Item Value Reference Range Interpretation Comments Arterial Blood Partial Pressure CO2 (test code = 2019-8) 48 35-45 H [facility] AntonioArterial Blood NRB76862-59-21 06:30:00* Test Item Value Reference Range Interpretation Comments Arterial Blood HCO3 (test code = 1960-4) 31 22-26 H [facility] AntonioArterial Blood Base Vmpply3944-30-38 06:30:00* Test Item Value Reference Range Interpretation Comments Arterial Blood Base Excess (test code = 1925-7) 6.0 -2-3 H [facility] AntonioFiO22020-04-19 06:30:00* Test Item Value Reference Range Interpretation Comments FiO2 (test code = FiO2) 28 [facility] 2L [facility] HospitalTroponin C5241-81-65 17:35:00 * Test Item Value Reference Range Interpretation Comments Troponin I (test code = 21327-6) 0.125 0-0.300 [facility] AntonioLactic Acid Xvwgo3183-25-62 08:59:00* Test Item Value Reference Range Interpretation Comments Lactic Acid Level (test code = Lactic Acid Level) 2.4 0.5- 2.0 Results repeated and called to ANDREA TREVIÑO RN at 0858 on 08/16/19 by Meron paul. Read back and verified.[facility] AntonioCreatine Kinase NY6437-54-88 08:44:00* Test Item Value Reference Range Interpretation Comments Creatine Kinase MB (test code = 76737-8) 3.00 0-5.0 [facility] AntonioCreatine Dbvsfh3683-24-50 08:38:00* Test Item Value Reference Range Interpretation Comments Creatine Kinase (test code = 2157-6) 26 30-200 L [facility] AntonioArterial blood pH ufwzzptcuhx1643-74-58 08:33:00* Test Item Value Reference Range Interpretation Comments Arterial Blood pH (test code = 2744-1) 7.42 7.35-7.45 [facility] AntoniopCO2 MweE0479-32-31 08:33:00* Test Item Value Reference Range Interpretation Comments Arterial Blood Partial Pressure CO2 (test code = 2019-8) 48 35-45 [facility] AntonioArterial blood bicarbonate measurement (moles/volume)2019-08-16 08:33:00* Test Item Value Reference Range Interpretation Comments Arterial Blood HCO3 (test code = 1960-4) 31 22-26 [facility] AntonioArterial blood base excess by calculation 2019-08-16 08:33:00* Test Item Value Reference Range Interpretation Comments Arterial Blood Base Excess (test code = 1925-7) 6.0 -2-3 [facility] AntonioFluoroscopic procedure less than one hour ftqjydae6145-75-32 08:33:00* Test Item Value Reference Range Interpretation Comments FiO2 (test code = FiO2) 28 Pt on 2L [facility]ieAmmonia2020-04-18 08:31:00* Test Item Value Reference Range Interpretation Comments Ammonia (test code = 12317-1) 40 31-123 [facility] AntonioCT BRAIN CU0334-88-25 07:46:00 [place] [address] Patient Name: JOSHUA WHEELER MR #: [id number] : 1960 Age/Sex: 58/M Req #: [id number] Adm Physician: SUNG VAIL MD Ordered by: GERMAIN ARNETT MD Report #: [id number] Location: MED/SURG Room/Bed: [facility] Procedure: [id number] CT/CT BRAIN WO Exam Date: 08/16/19 Exam [...] 7:54 AM Dictated By: KEN GARRIDO MD 3 Transcribed By: LOREE on 08/16/19753 COPY TO: GERMAIN ARNETT MD CHEST SINGLE (PORTABLE)2019-08-16 07:37:00 [address] [place] [address] Patient Name: JOSHUA WHEELER MR #: [id number] : 1960 Age/Sex: 58/M Req #: [id number] Adm Physician: SUNG VAIL MD Ordered by: GERMAIN ARNETT MD Report #: [id number] Location: MED/SURG Room/Bed: [facility] Procedure: [id number] DX/CHEST SINGLE (PORTABLE) Exam Date: 08/16/19 Exam [...] right pleural effusions. [facility] No pneumothorax. HEART AND MEDIASTINUM: [...] COPY TO: GERMAIN REDMAN MD Hepatitis Be Unqvcjn9649-21-85 11:49:00* Test Item Value Reference Range Interpretation Comments Hepatitis Be Antigen (test code = 02386-0) Positive Negative H Results called to FABIOLA HAN RN at 1148 on 08/14/19 by Cayetano El. RADHA DUBOIS.Perfo rmed at: - [facility] [address] [id number] Dire ctor: Alec Javier MD, Phone: [phone]'s Hospital of [facility] Hepatitis B Surface Antibody, Jvaym0079-14-52 08:37:00* Test Item Value Reference Range Interpretation Comments Hepatitis B Surface Antibody, Quant (test code = 5194-6) 114.9 Immunity>9.9 Status of Immunity Anti-HBs Level Inconsistent with Immunity 0.0 - 9.9Consistent with Immunity >9.9[facility] B Core Total Wevzgqpc9652-23-79 08:37:00* Test Item Value Reference Range Interpretation Comments Hepatitis B Core Total Antibody (test code = 26081-2) Negative Negative [facility] B Surface Qtcxgnj1177-82-15 08:37:00* Test Item Value Reference Range Interpretation Comments Hepatitis B Surface Antigen (test code = 5196-1) Negative Negat aye [facility] B Core IgM Vsmzfdau2971-02-11 08:37:00* Test Item Value Reference Range Interpretation Comments Hepatitis B Core IgM Antibody (test code = 98527-7) Negative Ne gative Performed at: HD - [facility] [address] [place], [place] [id number] Director: Alec Javier MD, Phone: [phone] [facility] HospitalCT BRAIN VB5801-78-35 00:47:00 [facility] [address] [place], [place] [address] Patient Name: JOSHUA WHEELER MR #: [id number] : 1960 Age/Sex: 58/M Req #: [id number] Adm Physician: SUNG VAIL MD Ordered by: SHELLY HOOPER MD Report #: [id number] Location: ICU Room/Bed: ICU [facility] Procedure: CT/CT BRAIN WO Exam Date: 08/14/19 [...] on 08/14/1955 COPY TO: SHELLY HOOPER MD Serum hepatitis B virus e antigen detection by enzyme ogrfestrbdv1251-64-08 05:00:00* Test Item Value Reference Range Interpretation Comments Hepatitis Be Antigen (test code = 00855-1) Positive Negative Results called to FABIOLA HAN RN at 1148 on 08/14/19 by Cayetano El. RADHA DUBOIS.Perfo rmed at: HD - [facility] [address] [place], [place] [id number] Dire ctor: Alec Javier MD, Phone: [phone] [facility] Serum or plasma hepatitis B virus surface antigen detection by immunoassay 2019-08-13 05:00:00* Test Item Value Reference Range Interpretation Comments Hepatitis B Surface Antigen (test code = 5196-1) Negative Negat aye [facility] HospitalCHEST SINGLE (PORTABLE)2019-08-12 23:03:00 [place] [address] Patient Name: JOSHUA WHEELER MR #: [id number] : 1960 Age/Sex: 58/M Req #: [id number] Adm Physician: Ordered by: SHELLY HOOPER MD Report #: [id number] Location: ER Room/Bed: Procedure: [id number] DX/CHEST SINGLE (PORTABLE) Exam Date: 08/12/19 Exam Time: 2219 REPORT STATUS: Sig sergio EXAMINATION: CHEST SINGLE [...] on 08/12/192304 COPY TO: SHELLY HOOPER MD Bedside Ftlzpyq0157-33-79 13:44:00* Test Item Value Reference Range Interpretation Comments Bedside Glucose (test code = 88977-7) 191 70-120 H Meter ID: [id number] [facility] HospitalBlood Culture 2019-07-29 08:59:00* Test Item Value Reference Range Interpretation Comments Blood Culture (test code = 19908405) NO GROWTH AFTER 5 DAYS, FINAL REPORT [facility] AntonioBody Fluid Ovktsrraxjx4296-91-20 22:29:00 * Test Item Value Reference Range Interpretation Comments Body Fluid Neutrophils (test code = 87220-6) 10 [facility] Fluid Tvhnljzeoda2487-19-95 22:29:00 * Test Item Value Reference Range Interpretation Comments Body Fluid Lymphocytes (test code = 07653325) 72 [facility] Fluid Clcraqies8545-39-76 22:29:00* Test Item Value Reference Range Interpretation Comments Body Fluid Monocytes (test code = 40417-5) 18 [facility] Fluid Total Cells Asobals1960-39-47 22:29:00* Test Item Value Reference Range Interpretation Comments Body Fluid Total Cells Counted (test code = 96016-6) 50 [facility] Mwwzppfgopi1971-58-01 22:29:00 * Test Item Value Reference Range Interpretation Comments Body Fluid Neutrophils (test code = 64090-7) 10 [facility] Fluid Hnihdqkfetf9360-57-37 22:29:00 * Test Item Value Reference Range Interpretation Comments Body Fluid Lymphocytes (test code = 14752168) 72 [facility] Fluid Gobgilyuo4569-17-02 22:29:00* Test Item Value Reference Range Interpretation Comments Body Fluid Monocytes (test code = 25819-3) 18 [facility] Total Cells Gxpexkk9940-53-64 22:29:00* Test Item Value Reference Range Interpretation Comments Body Fluid Total Cells Counted (test code = 48229-3) 50 [facility] Fluid HYD3693-33-35 16:58:00* Test Item Value Reference Range Interpretation Comments Body Fluid WBC (test code = 6743-9) 45 [facility] Fluid BUR4817-67-24 16:58:00* Test Item Value Reference Range Interpretation Comments Body Fluid RBC (test code = 6741-3) 8 [facility] Fluid GAK3060-60-07 16:58:00* Test Item Value Reference Range Interpretation Comments Body Fluid WBC (test code = 6743-9) 45 [facility] AntonioBody Fluid UUD1795-64-17 16:58:00* Test Item Value Reference Range Interpretation Comments Body Fluid RBC (test code = 6741-3) [address] [facility] HospitalTHORACENTESIS/IMAGE ZHEQWW2277-12-06 16:26:00 [facility] [address] [address] Patient Name: JOSHUA WHEELER MR #: [id number] : 1960 Age/Sex: 58/M Req #: [id number] Adm Physician: SUNG VAIL MD Ordered by: MARILIN ALBA MD Report #: [id number] Location: [facility] Room/Bed: 214 Procedure: 10 US/THORACENTESIS/IMAGE GUIDED Exam Date: Exam Ti me: REPORT STATUS: Signed PROCE DURE: Ultrasound-guided thoracentesis Procedural Personnel Attending phys jianan(s): Kevin Banda MD Fellow physician(s): None Resident physician(s): No ne Advanced practice provider(s): None Pre-procedure diagnosis: [...] sterile bandage was applied. Catheter placed: 5F Diamondeh Post -drainage hemithorax findings: Trace effusion. Additional [...] TO: MARILIN ALBA MD, ABI Body Fluid Usqa2918-51-10 16:10:00* Test Item Value Reference Range Interpretation Comments Body Fluid Type (test code = 69229-3) PLEURAL [facility] AntonioBody Fluid Shvrk4352-45-41 16:10:00* Test Item Value Reference Range Interpretation Comments Body Fluid Color (test code = 6824-7) YELLOW [facility] AntonioBody Fluid Jhvcfjowgt8733-87-43 16:10:00 * Test Item Value Reference Range Interpretation Comments Body Fluid Appearance (test code = 9335-1) SL.CLOUDY [facility] AntonioBody Fluid Ftqb5348-23-41 16:10:00* Test Item Value Reference Range Interpretation Comments Body Fluid Type (test code = 17752-8) PLEURAL [facility] AntonioBody Fluid Jonnr8614-19-85 16:10:00* Test Item Value Reference Range Interpretation Comments Body Fluid Color (test code = 6824-7) YELLOW [facility] AntonioBody Fluid Hoimrdafyw5680-36-61 16:10:00 * Test Item Value Reference Range Interpretation Comments Body Fluid Appearance (test code = 9335-1) SL.CLOUDY [facility] AntonioCHEST XRAY POST EZHLZFMWD6987-86-52 15:25:00 [facility] [address] [address] Patient Name: JOSHUA WHEELER MR #: [id number] : 1960 Age/Sex: 58/M Req #: [id number] Adm Physician: SUNG VAIL MD Ordered by: KEVIN BANDA MD Report #: [id number] Location: MED/SURG2 Room/Bed: [facility] Procedure: DX /CHEST XRAY POST PROCEDURE Exam Date: [...] MD on 07/28/191526 Transcribed By: LOREE on 07/28/197 COPY TO: KEIVN BANDA MD Specimen source identification of body dahmq6301-78-48 14:51:00* Test Item Value Reference Range Interpretation Comments Body Fluid Type (test code = 30611-8) PLEURAL [facility] AntonioEvaluation of color of body fluid 2019-07-28 14:51:00* Test Item Value Reference Range Interpretation Comments Body Fluid Color (test code = 6824-7) YELLOW [facility] AntonioDetermination of appearance of body fluid 2019-07-28 14:51:00* Test Item Value Reference Range Interpretation Comments Body Fluid Appearance (test code = 9335-1) SL.CLOUDY [facility] body fluid leukocytes count (number/volume)2019-07-28 14:51:00* Test Item Value Reference Range Interpretation Comments Body Fluid WBC (test code = 6743-9) 45 [facility] body fluid erythrocytes count (number/volume)2019-07-28 14:51:00* Test Item Value Reference Range Interpretation Comments Body Fluid RBC (test code = 6741-3) 8 [facility] body fluid neutrophils/100 zpanauqmwv4621-20-09 14:51:00* Test Item Value Reference Range Interpretation Comments Body Fluid Neutrophils (test code = 74392-2) 10 [facility] AntonioBody fluid lymphocyte njqso5317-78-66 14:51:00* Test Item Value Reference Range Interpretation Comments Body Fluid Lymphocytes (test code = 13876183) 72 [facility] AntonioBody fluid monocyte kwygp2607-65-94 14:51:00* Test Item Value Reference Range Interpretation Comments Body Fluid Monocytes (test code = 31304-1) 18 [facility] AntonioTotal cell jqmzk8960-83-32 14:51:00* Test Item Value Reference Range Interpretation Comments Body Fluid Total Cells Counted (test code = 06421-2) 50 [facility] Rmpuk9182-56-69 06:06:00* Test Item Value Reference Range Interpretation Comments Sodium Level (test code = 2951-2) 138 136-145 [facility] AntonioPotassium Fuqmj6102-44-88 06:06:00* Test Item Value Reference Range Interpretation Comments Potassium Level (test code = 2823-3) 4.1 3.5-5.1 [facility] AntonioChloride Reebp6129-67-73 06:06:00* Test Item Value Reference Range Interpretation Comments Chloride Level (test code = 2075-0) 103 98-107 [facility] AntonioCarbon Dioxide Qiqzg2939-95-18 06:06:00* Test Item Value Reference Range Interpretation Comments Carbon Dioxide Level (test code = 2028-9) 27 22-29 [facility] AntonioAnion Hxe6644-15-82 06:06:00* Test Item Value Reference Range Interpretation Comments Anion Gap (test code = 96446-5) 12.1 8-16 [facility] AntonioBlood Urea Jaawsitz6460-51-54 06:06:00* Test Item Value Reference Range Interpretation Comments Blood Urea Nitrogen (test code = 3094-0) 44 7-26 H [facility] AntonioCreatinine2020-03-30 06:06:00* Test Item Value Reference Range Interpretation Comments Creatinine (test code = 2160-0) 4.87 0.72-1.25 H [facility] AntonioBUN/Creatinine Sckhc0510-67-63 06:06:00* Test Item Value Reference Range Interpretation Comments BUN/Creatinine Ratio (test code = 3097-3) 9 6-25 [facility] San AntonioEstimat Glomerular Filtration Rate 2019-07-28 06:06:00* Test Item Value Reference Range Interpretation Comments Estimat Glomerular Filtration Rate (test code = 100688497) 12 >60 L Ranges were taken from the National Kidney Disease Education Program and the [facility] Kidney Foundation literature.Reference ranges:60 or greater: Cdcmkl18-21 ( for 3 consecutive months): Chronic kidney disease 15 or less: Kidney failureChildren's Hospital of San AntonioGlucose Jrdbn1755-72-37 06:06:00* Test Item Value Reference Range Interpretation Comments Glucose Level (test code = RNO0111) 111 74-118 [facility] AntonioCalcium Crbfj2682-62-42 06:06:00* Test Item Value Reference Range Interpretation Comments Calcium Level (test code = 65027-5) 8.4 8.4-10.2 [facility] AntonioWhite Blood Boaxj1697-65-61 05:43:00* Test Item Value Reference Range Interpretation Comments White Blood Count (test code = 6690-2) 3.72 4.8-10.8 L [facility] AntonioRed Blood Talrn0230-53-74 05:43:00* Test Item Value Reference Range Interpretation Comments Red Blood Count (test code = 789-8) 3.56 4.3-5.7 L [facility] AntonioHemoglobin2020-03-30 05:43:00* Test Item Value Reference Range Interpretation Comments Hemoglobin (test code = 50042-0) 10.1 14.0-18.0 L [facility] AntonioHematocrit2020-03-30 05:43:00* Test Item Value Reference Range Interpretation Comments Hematocrit (test code = 4544-3) 31.7 38.2-49.6 L [facility] AntonioMean Corpuscular Lsdspl6377-96-17 05:43:00* Test Item Value Reference Range Interpretation Comments Mean Corpuscular Volume (test code = 787-2) 89.0 81-99 [facility] AntonioMean Corpuscular Gqshpqniih8190-51-50 05:43:00* Test Item Value Reference Range Interpretation Comments Mean Corpuscular Hemoglobin (test code = 785-6) 28.4 28-32 [facility] AntonioMean Corpuscular Hemoglobin Concent 2019-07-28 05:43:00* Test Item Value Reference Range Interpretation Comments Mean Corpuscular Hemoglobin Concent (test code = 786-4) 31.9 31-35 [facility] AntonioRed Cell Distribution Eaidq1538-08-62 05:43:00* Test Item Value Reference Range Interpretation Comments Red Cell Distribution Width (test code = 89354-7) 16.2 11.7 -14.4 H [facility] AntonioPlatelet Orxji0139-95-56 05:43:00* Test Item Value Reference Range Interpretation Comments Platelet Count (test code = 777-3) 208 140-360 [facility] AntonioNeutrophils (%) (Auto)2019-07-28 05:43:00 * Test Item Value Reference Range Interpretation Comments Neutrophils (%) (Auto) (test code = 47051-1) 52.2 38.7-80.0 [facility] AntonioLymphocytes (%) (Auto)2019-07-28 05:43:00 * Test Item Value Reference Range Interpretation Comments Lymphocytes (%) (Auto) (test code = 736-9) 27.7 18.0-39.1 [facility] AntonioMonocytes (%) (Auto)2019-07-28 05:43:00* Test Item Value Reference Range Interpretation Comments Monocytes (%) (Auto) (test code = 5905-5) 12.6 4.4-11.3 H [facility] AntonioEosinophils (%) (Auto)2019-07-28 05:43:00 * Test Item Value Reference Range Interpretation Comments Eosinophils (%) (Auto) (test code = 713-8) 5.9 0.0-6.0 [facility] AntonioBasophils (%) (Auto)2019-07-28 05:43:00* Test Item Value Reference Range Interpretation Comments Basophils (%) (Auto) (test code = 706-2) 1.1 0.0-1.0 H [facility] AntonioIM GRANULOCYTES %2019-07-28 05:43:00* Test Item Value Reference Range Interpretation Comments IM GRANULOCYTES % (test code = IM GRANULOCYTES %) 0.5 0.0- 1.0 [facility] AntonioNeutrophils # (Auto)2019-07-28 05:43:00* Test Item Value Reference Range Interpretation Comments Neutrophils # (Auto) (test code = 751-8) 1.9 2.1-6.9 L [facility] AntonioLymphocytes # (Auto)2019-07-28 05:43:00* Test Item Value Reference Range Interpretation Comments Lymphocytes # (Auto) (test code = 95985-6) 1.0 1.0-3.2 [facility] AntonioMonocytes # (Auto)2019-07-28 05:43:00* Test Item Value Reference Range Interpretation Comments Monocytes # (Auto) (test code = 742-7) 0.5 0.2-0.8 [facility] AntonioEosinophils # (Auto)2019-07-28 05:43:00* Test Item Value Reference Range Interpretation Comments Eosinophils # (Auto) (test code = 711-2) 0.2 0.0-0.4 [facility] AntonioBasophils # (Auto)2019-07-28 05:43:00* Test Item Value Reference Range Interpretation Comments Basophils # (Auto) (test code = 704-7) 0.0 0.0-0.1 [facility] AntonioAbsolute Immature Granulocyte (auto 2019-07-28 05:43:00* Test Item Value Reference Range Interpretation Comments Absolute Immature Granulocyte (auto (dany t code = Absolute Immature Granulocyte (auto) 0.02 0-0.1 [facility] AntonioCHEST SINGLE (PORTABLE)2019-07-27 08:50:00 [place] [address] Patient Name: JOSHUA WHEELER MR #: [id number] : 1960 Age/Sex: 58/M Req #: [id number] Adm Physician: SUNG VAIL MD Ordered by: GERMAIN ARNETT MD Report #: [id number] Location: MED/SURG2 Room/Bed: [facility] Procedure: [id number] DX/CHEST SINGLE (PORTABLE) Exam Date: 07/27/19 Exam [...] on 07/27/19922 COPY TO: GERMAIN ARNETT MD B-Type Natriuretic Xtpdyrd7437-39-66 08:37:00* Test Item Value Reference Range Interpretation Comments B-Type Natriuretic Peptide (test code = 96828-7) 9563.2 0-100 H [facility] AntonioTotal Dyoghxlli2274-97-49 06:21:00* Test Item Value Reference Range Interpretation Comments Total Bilirubin (test code = 1975-2) 0.7 0.2-1.2 [facility] AntonioAspartate Amino Transf (AST/SGOT) 2019-07-27 06:21:00* Test Item Value Reference Range Interpretation Comments Aspartate Amino Transf (AST/SGOT) (test code = Aspartate Amino Transf (AST/SGOT)) 12 5-34 [facility] AntonioAlanine Aminotransferase (ALT/SGPT) 2019-07-27 06:21:00* Test Item Value Reference Range Interpretation Comments Alanine Aminotransferase (ALT/SGPT) (test code = 1742-6) 10 0-55 [facility] AntonioTotal Dzjeqxb8275-15-59 06:21:00* Test Item Value Reference Range Interpretation Comments Total Protein (test code = 2885-2) 6.2 6.5-8.1 L [facility] AntonioAlbumin2020-03-29 06:21:00* Test Item Value Reference Range Interpretation Comments Albumin (test code = 1751-7) 2.1 3.5-5.0 L [facility] AntonioGlobulin2020-03-29 06:21:00* Test Item Value Reference Range Interpretation Comments Globulin (test code = 41477-7) 4.1 2.3-3.5 H [facility] AntonioAlbumin/Globulin Uzxwb9750-70-78 06:21:00 * Test Item Value Reference Range Interpretation Comments Albumin/Globulin Ratio (test code = 1759-0) 0.5 0.8-2.0 L [facility] AntonioAlkaline Xteeidwgytp9835-35-49 06:21:00* Test Item Value Reference Range Interpretation Comments Alkaline Phosphatase (test code = 6768-6) 105 40-150 [facility] AntonioRandom Vancomycin Jpjey7911-58-52 20:29:00* Test Item Value Reference Range Interpretation Comments Random Vancomycin Level (test code = 52010-8) 9.2 [facility] AntonioRandom Vancomycin Wxmuk3439-62-39 20:29:00* Test Item Value Reference Range Interpretation Comments Random Vancomycin Level (test code = 27764-7) 9.2 [facility] AntonioRandom serum or plasma vancomycin measurement (mass/volume)2019-07-25 18:45:00* Test Item Value Reference Range Interpretation Comments Random Vancomycin Level (test code = 17305-7) 9.2 [facility] AntonioCoronavirus (PCR)2019-07-25 15:17:00* Test Item Value Reference Range [...] complexity tests.Specimen sent to [facility] and testing performed by [facility] [address] [place] [address] [phone] Director: Santos Olvera M.D.CLIA # [id number] [facility] HospitalCoronavirus (PCR)2019-07-25 15:17:00* Test Item Value Reference Range [...] complexity tests.Specimen sent to [facility] and testing performed by [facility] Pathology [address] [place] [address] [phone] Director: Santos Olvera M.D.CLIA # 4 [id number] [facility] SINGLE (PORTABLE) 2019-07-25 09:41:00 [place] [address] Patient Name: JOSUHA WHEELER MR #: [id number] : 1960 Age/Sex: 58/M Req #: [id number] Adm Physician: SUNG VAIL MD Ordered by: PHYLLIS GARCIA MD Report #: [id number] Location: MED/SURG2 Room/Bed: 214 Procedure: [id number] DX/CHEST SINGLE (PORTABLE) Exam [...] 07/25/19946 CO PY TO: PHYLLIS GARCIA MD Phosphorus Irocy4575-59-26 05:57:00* Test Item Value Reference Range Interpretation Comments Phosphorus Level (test code = DYO9252) 1.9 2.3-4.7 L [facility] AntonioMagnesium Ighbz9890-21-48 05:57:00* Test Item Value Reference Range Interpretation Comments Magnesium Level (test code = 46481-6) 1.8 1.3-2.1 [facility] AntonioCHEST SINGLE (PORTABLE)2019-07-24 10:32:00 [facility] [address] [place] [address] Patient Name: JOSHUA WHEELER MR #: [id number] : 1960 Age/Sex: 58/M Req #: [id number] Adm Physician: Ordered by: PHYLLIS GARCIA MD Report #: [id number] Location: ER Room/Bed: Procedure: 032 DX/CHEST SINGLE (PORTABLE) Exam Date: 07/24/19 Ex [...] 1035 COPY TO: PHYLLIS GARCIA MD Urine YIQ5260-80-87 09:48:00* Test Item Value Reference Range Interpretation Comments Urine WBC (test code = 5821-4) 11-20 0-5 H [facility] AntonioUrine CWO1126-46-13 09:48:00* Test Item Value Reference Range Interpretation Comments Urine RBC (test code = 85795-6) 11-20 0-5 H [facility] AntonioUrine Lfqfnexq6840-59-41 09:48:00* Test Item Value Reference Range Interpretation Comments Urine Bacteria (test code = 29272-6) MODERATE NONE H [facility] AntonioUrine Epithelial Ovppv3945-21-00 09:48:00 * Test Item Value Reference Range Interpretation Comments Urine Epithelial Cells (test code = 41324-4) MODERATE NONE [facility] AntonioUrine Calcium Oxalate Tvtpippl9415-29-25 09:48:00* Test Item Value Reference Range Interpretation Comments Urine Calcium Oxalate Crystals (test code = 5774-5) RARE FE W [facility] AntonioGroup A Streptococcus Eavfnk6342-51-06 09:48:00* Test Item Value Reference Range Interpretation Comments Group A Streptococcus Screen (test code = 01388-9) NEGATIVE NEG ATIVE [facility] AntonioUrine GPC2822-81-11 09:48:00* Test Item Value Reference Range Interpretation Comments Urine WBC (test code = 5821-4) 11-20 0-5 H [facility] AntonioUrine STR6271-23-84 09:48:00* Test Item Value Reference Range Interpretation Comments Urine RBC (test code = 30626-4) 11-20 0-5 H [facility] AntonioUrine Bzlvubnz5550-25-16 09:48:00* Test Item Value Reference Range Interpretation Comments Urine Bacteria (test code = 12855-9) MODERATE NONE H [facility] AntonioUrine Epithelial Bcxrl1871-71-44 09:48:00 * Test Item Value Reference Range Interpretation Comments Urine Epithelial Cells (test code = 28331-5) MODERATE NONE [facility] AntonioUrine Calcium Oxalate Gtpqwmsg7478-35-26 09:48:00* Test Item Value Reference Range Interpretation Comments Urine Calcium Oxalate Crystals (test code = 5774-5) RARE FE W [facility] AntonioGroup A Streptococcus Yektdc3147-05-65 09:48:00* Test Item Value Reference Range Interpretation Comments Group A Streptococcus Screen (test code = 83315-4) NEGATIVE NEG ATIVE [facility] AntonioInfluenza Virus Types A,B Antigen 2019-07-24 09:39:00* Test Item Value Reference Range Interpretation Comments Influenza Virus Types A,B Antigen (test code = 53942-6) NEGATIVE NEGATIVE [facility] AntonioInfluenza Virus Types A,B Antigen 2019-07-24 09:39:00* Test Item Value Reference Range Interpretation Comments Influenza Virus Types A,B Antigen (test code = 53055-2) NEGATIVE NEGATIVE [facility] AntonioUrine Irkwa7244-84-98 09:37:00* Test Item Value Reference Range Interpretation Comments Urine Color (test code = 5778-6) YELLOW YELLOW [facility] AntonioUrine Mqdzavt2989-00-37 09:37:00* Test Item Value Reference Range Interpretation Comments Urine Clarity (test code = 72164-2) CLEAR CLEAR [facility] AntonioUrine Specific Aeiiwgn5868-28-55 09:37:00 * Test Item Value Reference Range Interpretation Comments Urine Specific [place] (test code = 5811-5) 1.020 1.010-1.02 5 [facility] AntonioUrine pK2066-37-99 09:37:00* Test Item Value Reference Range Interpretation Comments Urine pH (test code = 60998-7) 8.5 5-7 [facility] AntonioU[facility] Leukocyte Hqkuqpkt3459-53-63 09:37:00* Test Item Value Reference Range Interpretation Comments Urine Leukocyte Esterase (test code = 5799-2) NEGATIVE NEGATIVE [facility] AntonioU[facility] Myrfevm1319-41-99 09:37:00* Test Item Value Reference Range Interpretation Comments Urine Nitrite (test code = 97076-1) NEGATIVE NEGATIVE [facility] AntonioUrine Tfwecvf0930-32-65 09:37:00* Test Item Value Reference Range Interpretation Comments Urine Protein (test code = 5804-0) >=300 NEGATIVE [facility] AntonioUrine Glucose (UA)2019-07-24 09:37:00* Test Item Value Reference Range Interpretation Comments Urine Glucose (UA) (test code = 2349-9) NEGATIVE NEGATIVE [facility] AntonioUrine Vjrqbvj4303-04-47 09:37:00* Test Item Value Reference Range Interpretation Comments Urine Ketones (test code = 16587-4) NEGATIVE NEGATIVE [facility] AntonioUrine Zamqtwjezicw6592-28-93 09:37:00* Test Item Value Reference Range Interpretation Comments Urine Urobilinogen (test code = 33260-7) 0.2 0.2-1 [facility] AntonioUrine Tfelqgoct7181-33-75 09:37:00* Test Item Value Reference Range Interpretation Comments Urine Bilirubin (test code = 1978-6) NEGATIVE NEGATIVE [facility] AntonioU[facility] Mfnfd0195-40-55 09:37:00* Test Item Value Reference Range Interpretation Comments Urine Blood (test code = 97134-4) TRACE NEGATIVE [facility] AntonioU[facility] Ravbb0929-86-59 09:37:00* Test Item Value Reference Range Interpretation Comments Urine Color (test code = 5778-6) YELLOW YELLOW [facility] AntonioU[facility] Iyvgysx3621-46-10 09:37:00* Test Item Value Reference Range Interpretation Comments Urine Clarity (test code = 91149-7) CLEAR CLEAR [facility] AntonioUrine Specific Zevqmjs9884-18-58 09:37:00 * Test Item Value Reference Range Interpretation Comments Urine Specific [place] (test code = 5811-5) 1.020 1.010-1.02 5 [facility] AntonioUrine cO1043-22-89 09:37:00* Test Item Value Reference Range Interpretation Comments Urine pH (test code = 37013-4) 8.5 5-7 [facility] AntonioU[facility] Leukocyte Gbswrbcd1754-37-12 09:37:00* Test Item Value Reference Range Interpretation Comments Urine Leukocyte Esterase (test code = 5799-2) NEGATIVE NEGATIVE [facility] AntonioUrine Grhyomr6545-93-40 09:37:00* Test Item Value Reference Range Interpretation Comments Urine Nitrite (test code = 51424-8) NEGATIVE NEGATIVE [facility] AntonioUrine Suqpxfp4743-21-07 09:37:00* Test Item Value Reference Range Interpretation Comments Urine Protein (test code = 5804-0) >=300 NEGATIVE [facility] AntonioUrine Glucose (UA)2019-07-24 09:37:00* Test Item Value Reference Range Interpretation Comments Urine Glucose (UA) (test code = 2349-9) NEGATIVE NEGATIVE [facility] AntonioUrine Opzplgi8436-22-47 09:37:00* Test Item Value Reference Range Interpretation Comments Urine Ketones (test code = 97578-9) NEGATIVE NEGATIVE [facility] AntonioUrine Uupftldxinom0959-59-86 09:37:00* Test Item Value Reference Range Interpretation Comments Urine Urobilinogen (test code = 19626-9) 0.2 0.2-1 [facility] AntonioU[facility] Zcrqylyuh0827-89-94 09:37:00* Test Item Value Reference Range Interpretation Comments Urine Bilirubin (test code = 1978-6) NEGATIVE NEGATIVE [facility] AntonioU[facility] Nimxa7097-31-19 09:37:00* Test Item Value Reference Range Interpretation Comments Urine Blood (test code = 94862-5) TRACE NEGATIVE [facility] AntonioCalcium oxalate crystals detection in urine sediment by light yaewpzbgki7852-46-09 09:14:00* Test Item Value Reference Range Interpretation Comments Urine Calcium Oxalate Crystals (test code = 5774-5) RARE FE W [facility] AntonioInfluenza virus A and B antigen identification by zskmalnfinowyejrte0386-49-16 08:40:00* Test Item Value Reference Range Interpretation Comments Influenza Virus Types A,B Antigen (test code = 25926-5) NEGATIVE NEGATIVE [facility]reptococcus pyogenes antigen detection in ujjmcu1347-26-03 08:40:00* Test Item Value Reference Range Interpretation Comments Group A Streptococcus Screen (test code = 88848-2) NEGATIVE NEG ATIVE [facility] AntonioMethylmalonic Icyz2314-78-56 07:50:00* Test Item Value Reference Range Interpretation Comments Methylmalonic Acid (test code = 46178-9) 330 Reference Range:0 - 378 nmol/LDisclaimer: This test was developed and its perfo rmance characteristics determined by [employer]. It has not been cleared or approve d by the Food and Drug Administration.Testing performed by:[facility] [phone]. Solomon Chris [facility] CenterMethylmalonic Xkwo9628-52-52 07:50:00* Test Item Value Reference Range Interpretation Comments Methylmalonic Acid (test code = 81448-9) 330 Reference Range:0 - 378 nmol/LDisclaimer: This test was developed and its perfo rmance characteristics determined by [employer] It has not been cleared or approve d by the Food and Drug Administration.Testing performed by:[employer] [address] [place] [phone]. Solomon Chris [facility] CenterFungal Ajljl8033-44-62 14:56:00* Test Item Value Reference Range Interpretation Comments Fungal Smear (test code = 84368-1) No Result Data Provided [facility] AntonioFuwakemed [facility] hospital Eukyg2756-49-75 14:56:00* Test Item Value Reference Range Interpretation Comments Fungal Smear (test code = 80554-1) No Result Data Provided [facility] AntonioFuwakemed north hospital Xggfq7567-62-11 14:56:00* Test Item Value Reference Range Interpretation Comments Fungal Smear (test code = 22785-0) No Result Data Provided [facility] AntonioCreatine Avduvo0215-68-46 11:31:00* Test Item Value Reference Range Interpretation Comments Creatine Kinase (test code = 2157-6) 23 30-200 L [facility] AntonioCreatine Nektsp6243-58-75 11:31:00* Test Item Value Reference Range Interpretation Comments Creatine Kinase (test code = 2157-6) 23 30-200 L [facility] Centererum or plasma methylmalonate measurement (moles/volume)2019-07-12 10:52:00* Test Item Value Reference Range Interpretation Comments Methylmalonic Acid (test code = 67625-6) 330 Reference Range:0 - 378 nmol/LDisclaimer: This test was developed and its perfo rmance characteristics determined by [employer]. It has not been cleared or approve d by the Food and Drug Administration.Testing performed by:[employer] [place] [address] [address] [place] [phone]. Solomon Chris [facility] Centerodium Lkryy3127-42-30 07:17:00* Test Item Value Reference Range Interpretation Comments Sodium Level (test code = 2951-2) 139 136-145 [facility] AntonioPotassium Odirx3171-73-44 07:17:00* Test Item Value Reference Range Interpretation Comments Potassium Level (test code = 2823-3) 3.9 3.5-5.1 [facility] AntonioChloride Sjdsp6955-55-76 07:17:00* Test Item Value Reference Range Interpretation Comments Chloride Level (test code = 2075-0) 103 98-107 [facility] AntonioCarbon Dioxide Msfse1102-86-70 07:17:00* Test Item Value Reference Range Interpretation Comments Carbon Dioxide Level (test code = 2028-9) 31 22-29 H [facility] AntonioAnion Wis3832-18-68 07:17:00* Test Item Value Reference Range Interpretation Comments Anion Gap (test code = 32879-8) 8.9 8-16 [facility] AntonioBlood Urea Tlwrvbiq9074-06-40 07:17:00* Test Item Value Reference Range Interpretation Comments Blood Urea Nitrogen (test code = 3094-0) 16 7-26 [facility] AntonioCreatinine2020-03-14 07:17:00* Test Item Value Reference Range Interpretation Comments Creatinine (test code = 2160-0) 2.49 0.72-1.25 H [facility] AntonioBUN/Creatinine Btooh7083-38-68 07:17:00* Test Item Value Reference Range Interpretation Comments BUN/Creatinine Ratio (test code = 3097-3) 6 6-25 [facility] AntonioEstimat Glomerular Filtration Rate 2019-07-12 07:17:00* Test Item Value Reference Range Interpretation Comments Estimat Glomerular Filtration Rate (test code = 807920193) 27 >60 L Ranges were taken from the National Kidney Disease Education Program and the [facility] Kidney Foundation literature.Reference ranges:60 or greater: Onytux56-81 ( for 3 consecutive months): Chronic kidney disease 15 or less: Kidney failureChildren's Hospital of San AntonioGlucose Cvgzn2325-61-51 07:17:00* Test Item Value Reference Range Interpretation Comments Glucose Level (test code = DET7802) 102 74-118 [facility] AntonioCalcium Txlrx2564-63-23 07:17:00* Test Item Value Reference Range Interpretation Comments Calcium Level (test code = 02682-6) 8.8 8.4-10.2 [facility] AntonioWhite Blood Dwxyh5128-43-97 06:56:00* Test Item Value Reference Range Interpretation Comments White Blood Count (test code = 6690-2) 5.93 4.8-10.8 [facility] AntonioRed Blood Jempv9819-84-85 06:56:00* Test Item Value Reference Range Interpretation Comments Red Blood Count (test code = 789-8) 3.52 4.3-5.7 L [facility] AntonioHemoglobin2020-03-14 06:56:00* Test Item Value Reference Range Interpretation Comments Hemoglobin (test code = 37906-6) 10.0 14.0-18.0 L [facility] AntonioHematocrit2020-03-14 06:56:00* Test Item Value Reference Range Interpretation Comments Hematocrit (test code = 4544-3) 31.0 38.2-49.6 L [facility] AntonioMean Corpuscular Hcbklq3466-45-25 06:56:00* Test Item Value Reference Range Interpretation Comments Mean Corpuscular Volume (test code = 787-2) 88.1 81-99 [facility] AntonioMean Corpuscular Kppcdfktmn3771-46-41 06:56:00* Test Item Value Reference Range Interpretation Comments Mean Corpuscular Hemoglobin (test code = 785-6) 28.4 28-32 [facility] AntonioMean Corpuscular Hemoglobin Concent 2019-07-12 06:56:00* Test Item Value Reference Range Interpretation Comments Mean Corpuscular Hemoglobin Concent (test code = 786-4) 32.3 31-35 [facility] AntonioRed Cell Distribution Hugwk8422-08-45 06:56:00* Test Item Value Reference Range Interpretation Comments Red Cell Distribution Width (test code = 73836-1) 18.6 11.7 -14.4 H [facility] AntonioPlatelet Bpikg5622-49-40 06:56:00* Test Item Value Reference Range Interpretation Comments Platelet Count (test code = 777-3) 237 140-360 [facility] AntonioNeutrophils (%) (Auto)2019-07-12 06:56:00 * Test Item Value Reference Range Interpretation Comments Neutrophils (%) (Auto) (test code = 46526-4) 61.1 38.7-80.0 [facility] AntonioLymphocytes (%) (Auto)2019-07-12 06:56:00 * Test Item Value Reference Range Interpretation Comments Lymphocytes (%) (Auto) (test code = 736-9) 23.6 18.0-39.1 [facility] AntonioMonocytes (%) (Auto)2019-07-12 06:56:00* Test Item Value Reference Range Interpretation Comments Monocytes (%) (Auto) (test code = 5905-5) 9.1 4.4-11.3 [facility] AntonioEosinophils (%) (Auto)2019-07-12 06:56:00 * Test Item Value Reference Range Interpretation Comments Eosinophils (%) (Auto) (test code = 713-8) 4.7 0.0-6.0 [facility] AntonioBasophils (%) (Auto)2019-07-12 06:56:00* Test Item Value Reference Range Interpretation Comments Basophils (%) (Auto) (test code = 706-2) 1.3 0.0-1.0 H [facility] AntonioIM GRANULOCYTES %2019-07-12 06:56:00* Test Item Value Reference Range Interpretation Comments IM GRANULOCYTES % (test code = IM GRANULOCYTES %) 0.2 0.0- 1.0 [facility] AntonioNeutrophils # (Auto)2019-07-12 06:56:00* Test Item Value Reference Range Interpretation Comments Neutrophils # (Auto) (test code = 751-8) 3.6 2.1-6.9 [facility] AntonioLymphocytes # (Auto)2019-07-12 06:56:00* Test Item Value Reference Range Interpretation Comments Lymphocytes # (Auto) (test code = 56813-8) 1.4 1.0-3.2 [facility] AntonioMonocytes # (Auto)2019-07-12 06:56:00* Test Item Value Reference Range Interpretation Comments Monocytes # (Auto) (test code = 742-7) 0.5 0.2-0.8 [facility] AntonioEosinophils # (Auto)2019-07-12 06:56:00* Test Item Value Reference Range Interpretation Comments Eosinophils # (Auto) (test code = 711-2) 0.3 0.0-0.4 [facility] AntonioBasophils # (Auto)2019-07-12 06:56:00* Test Item Value Reference Range Interpretation Comments Basophils # (Auto) (test code = 704-7) 0.1 0.0-0.1 [facility] AntonioAbsolute Immature Granulocyte (auto 2019-07-12 06:56:00* Test Item Value Reference Range Interpretation Comments Absolute Immature Granulocyte (auto (dany t code = Absolute Immature Granulocyte (auto) 0.01 0-0.1 [facility] AntonioABDOMEN-1VIEW (KUB)2019-07-11 14:06:00 [place] [address] Patient Name: JOSHUA WHEELER MR #: [id number] : 1960 Age/Sex: 58/M Req #: [id number] [facility] Physician: BRETT CAZARES MD Ordered by: BRETT CAZARES MD Report #: [id number] Location: MED/SURG3 Room/Bed: [facility] Procedure: [id number] DX/ABDOMEN-1VIEW (KUB) Exam Date: 07/11/19 Exam Time : 1333 [...] on 07/11/191406 COPY TO: BRETT CAZARES MD Bedside Bffwlor2612-23-57 20:45:00* Test Item Value Reference Range Interpretation Comments Bedside Glucose (test code = 83980-4) 108 70-120 Meter ID: [id number]'s Hospital of San AntonioYeast identification 2019-07-09 11:00:00* Test Item Value Reference Range Interpretation Comments Fungal Smear (test code = 31177029) HAIDER SPECIES-NOT ALBICANS [facility] A IgM Exrwsmqx3527-66-29 14:26:00* Test Item Value Reference Range Interpretation Comments Hepatitis A IgM Antibody (test code = 62441-3) Negative Negativ e [facility] B Surface Raleadz8947-00-84 14:26:00* Test Item Value Reference Range Interpretation Comments Hepatitis B Surface Antigen (test code = 5196-1) Negative Negat aye [facility] B Core IgM Ujqnkayd9474-63-23 14:26:00* Test Item Value Reference Range Interpretation Comments Hepatitis B Core IgM Antibody (test code = 74022-0) Negative Ne gative [facility] C Zonbytqg5535-75-52 14:26:00* Test Item Value Reference Range Interpretation Comments Hepatitis C Antibody (test code = 00164-5) <0.1 0.0-0.9 Negative: < 0.8 Indeterminate: 0.8 - 0.9 Positive: > 0.9 The CDC recommends that a positive HCV antibody result be followed up with a HCV Nucleic Acid Amplification test (563960).Performed at: [address] [id number] Director: Alec Javier MD, Phone: [phone] [facility] A IgM Antibody 2019-07-08 14:26:00* Test Item Value Reference Range Interpretation Comments Hepatitis A IgM Antibody (test code = 51827-5) Negative Negativ e [facility] B Surface Yuwolbd6963-65-09 14:26:00* Test Item Value Reference Range Interpretation Comments Hepatitis B Surface Antigen (test code = 5196-1) Negative Negat aye [facility] B Core IgM Uvzohhed4636-48-95 14:26:00* Test Item Value Reference Range Interpretation Comments Hepatitis B Core IgM Antibody (test code = 88906-7) Negative Ne gative [facility] C Mgbmggik4834-63-19 14:26:00* Test Item Value Reference Range Interpretation Comments Hepatitis C Antibody (test code = 49166-8) <0.1 0.0-0.9 Negative: < 0.8 Indeterminate: 0.8 - 0.9 Positive: > 0.9 The CDC recommends that a positive HCV antibody result be followed up with a HCV Nucleic Acid Amplification test (452690).Performed at: [address] [id number] Director: Alec Javier MD, Phone: [phone] Memorial Medical Center A IgM Antibody 2019-07-08 14:26:00* Test Item Value Reference Range Interpretation Comments Hepatitis A IgM Antibody (test code = 11578-2) Negative Negativ e [facility] C Wjuqzrbb5468-80-02 14:26:00* Test Item Value Reference Range Interpretation Comments Hepatitis C Antibody (test code = 64800-3) <0.1 0.0-0.9 Negative: < 0.8 Indeterminate: 0.8 - 0.9 Positive: > 0.9 The CDC recommends that a positive HCV antibody result be followed up with a HCV Nucleic Acid Amplification test (353440).Performed at: [facility] [address] [place], [place] [id number] Director: Alec Javier MD, Phone: [phone] [facility] SINGLE (PORTABLE) 2019-07-08 07:43:00 [facility] [address] [place], [place] [address] Patient Name: JOSHUA WHEELER MR #: [id number] : 1960 Age/Sex: 58/M Req #: [id number] Adm Physician: BRETT CAZARES MD Ordered by: BRETT CAZARES MD Report #: [id number] Location: [facility] Room/Bed: [place] [address] Procedure: [id number] DX/CHEST SINGLE (PORTABLE) Exam Date: 07/08/19 Exam [...] on 07/08/19744 COPY TO: BRETT CAZARES MD Creatine Kinase OH2732-22-57 20:20:00* Test Item Value Reference Range Interpretation Comments Creatine Kinase MB (test code = 73381-0) 2.30 0-5.0 [facility] AntonioTroponin F1889-60-56 20:20:00* Test Item Value Reference Range Interpretation Comments Troponin I (test code = KWC0381) 0.080 0-0.300 [facility] AntonioCreatine Kinase NW2787-73-25 20:20:00* Test Item Value Reference Range Interpretation Comments Creatine Kinase MB (test code = 94952-3) 2.30 0-5.0 [facility] AntonioTroponin M0280-62-19 20:20:00* Test Item Value Reference Range Interpretation Comments Troponin I (test code = VMP6320) 0.080 0-0.300 [facility] hepatitis A virus IgM antibody detection by iensljjfsgw8624-73-97 08:30:00* Test Item Value Reference Range Interpretation Comments Hepatitis A IgM Antibody (test code = 75453-9) Negative Negativ e [facility] hepatitis C virus antibody zgjcvsfba6181-69-37 08:30:00* Test Item Value Reference Range Interpretation Comments Hepatitis C Antibody (test code = 64091-2) <0.1 0.0-0.9 Negative: < 0.8 Indeterminate: 0.8 - 0.9 Positive: > 0.9 The CDC recommends that a positive HCV antibody result be followed up with a HCV Nucleic Acid Amplification test (352843).Performed at: [facility] [address] [id number] Director: Alec Javier MD, Phone: [phone]'s Hospital of San AntonioMagnesium Rdjuv1973-79-91 05:10:00* Test Item Value Reference Range Interpretation Comments Magnesium Level (test code = 05944-5) 1.9 1.3-2.1 [facility]2020-03-09 05:10:00* Test Item Value Reference Range Interpretation Comments Iron Level (test code = 2498-4) 35 65-175 L [facility] Binding Cekjviwa8244-10-19 05:10:00* Test Item Value Reference Range Interpretation Comments Total Iron Binding Capacity (test code = 2500-7) 118 261-4 78 L [facility] Lszlyxbvff1590-45-98 05:10:00* Test Item Value Reference Range Interpretation Comments Percent Iron Saturation (test code = 2502-3) 30 15-50 [facility] AntonioTransferrin2020-03-09 05:10:00* Test Item Value Reference Range Interpretation Comments Transferrin (test code = 3034-6) 84 174-364 L [facility]2020-03-09 05:10:00* Test Item Value Reference Range Interpretation Comments Iron Level (test code = 2498-4) 35 65-175 L [facility] Iron Binding Arownobg9384-67-49 05:10:00* Test Item Value Reference Range Interpretation Comments Total Iron Binding Capacity (test code = 2500-7) 118 261-4 78 L [facility] Iron Hfqlbcmaeg5227-96-67 05:10:00* Test Item Value Reference Range Interpretation Comments Percent Iron Saturation (test code = 2502-3) 30 15-50 [facility] AntonioTransferrin2020-03-09 05:10:00* Test Item Value Reference Range Interpretation Comments Transferrin (test code = 3034-6) 84 174-364 L [facility]2020-03-09 05:10:00* Test Item Value Reference Range Interpretation Comments Iron Level (test code = 2498-4) 35 65-175 L [facility] Iron Binding Cuqjzckl2659-56-80 05:10:00* Test Item Value Reference Range Interpretation Comments Total Iron Binding Capacity (test code = 2500-7) 118 261-4 78 L [facility] AntonioPercent Iron Usvavpchmb0660-52-28 05:10:00* Test Item Value Reference Range Interpretation Comments Percent Iron Saturation (test code = 2502-3) 30 15-50 [facility] AntonioTransferrin2020-03-09 05:10:00* Test Item Value Reference Range Interpretation Comments Transferrin (test code = 3034-6) 84 174-364 L [facility] AntonioCHEST SINGLE (PORTABLE)2019-07-06 16:35:00 [facility] [address] [place] [address] Patient Name: JOSHUA WHEELER MR #: [id number] : 1960 Age/Sex: 58/M Req #: [id number] Adm Physician: Ordered by: ALEX DELUCA MANAGER SKILLED Report #: [id number] Location: ER Room/Bed: Procedure: [id number] DX/CHEST SINGLE (PORTABLE) Exam Date: 07/06/19 Exam [...] TO: ALEX DELUCA NP Activated Partial Thromboplast Jedi8658-41-33 15:24:00* Test Item Value Reference Range Interpretation Comments Activated Partial Thromboplast Time (test code = 06049-8) 49.7 23.8-35.5 H [facility] AntonioActivated Partial Thromboplast Time 2019-07-06 15:24:00* Test Item Value Reference Range Interpretation Comments Activated Partial Thromboplast Time (test code = 16823-4) 49.7 23.8-35.5 H [facility] AntonioActivated Partial Thromboplast Time 2019-07-06 15:24:00* Test Item Value Reference Range Interpretation Comments Activated Partial Thromboplast Time (test code = 10483-2) 49.7 23.8-35.5 H [facility] AntonioTotal Yrdxaoqzv9610-11-45 15:17:00* Test Item Value Reference Range Interpretation Comments Total Bilirubin (test code = 1975-2) 0.6 0.2-1.2 [facility] AntonioAspartate Amino Transf (AST/SGOT) 2019-07-06 15:17:00* Test Item Value Reference Range Interpretation Comments Aspartate Amino Transf (AST/SGOT) (test code = Aspartate Amino Transf (AST/SGOT)) 20 5-34 [facility] AntonioAlanine Aminotransferase (ALT/SGPT) 2019-07-06 15:17:00* Test Item Value Reference Range Interpretation Comments Alanine Aminotransferase (ALT/SGPT) (test code = 1742-6) 11 0-55 [facility] AntonioTotal Riuuyhr6232-09-40 15:17:00* Test Item Value Reference Range Interpretation Comments Total Protein (test code = 2885-2) 6.1 6.5-8.1 L [facility] AntonioAlbumin2020-03-08 15:17:00* Test Item Value Reference Range Interpretation Comments Albumin (test code = 1751-7) 1.9 3.5-5.0 L [facility] AntonioGlobulin2020-03-08 15:17:00* Test Item Value Reference Range Interpretation Comments Globulin (test code = 53832-5) 4.2 2.3-3.5 H [facility] AntonioAlbumin/Globulin Bajfu2953-50-99 15:17:00 * Test Item Value Reference Range Interpretation Comments Albumin/Globulin Ratio (test code = 1759-0) 0.5 0.8-2.0 L [facility] AntonioAlkaline Qchpuwltgkj3605-31-08 15:17:00* Test Item Value Reference Range Interpretation Comments Alkaline Phosphatase (test code = 6768-6) 117 40-150 [facility] AntonioProthrombin Gywf1343-04-54 15:13:00* Test Item Value Reference Range Interpretation Comments Prothrombin Time (test code = 5902-2) 14.4 11.9-14.5 [facility] AntonioProthromb Time International Ratio 2019-07-06 15:13:00* Test Item Value Reference Range Interpretation Comments Prothromb Time International Ratio (test code = 6301-6) 1.05 Oral Anticoagulant Therapy INR Values:1. Low Intensity Therapy 1.5 - 2.02 . Moderate Intensity Therapy 2.0 - 3.03. High Intensity Therapy(1) 2.5 - 3. 54. High Intensity Therapy(2) 3.0 - 4.05. Panic Value INR > 5.0 [facility] AntonioProthrombin Lkzc8612-18-99 15:13:00* Test Item Value Reference Range Interpretation Comments Prothrombin Time (test code = 5902-2) 14.4 11.9-14.5 [facility] AntonioProthromb Time International Ratio 2019-07-06 15:13:00* Test Item Value Reference Range Interpretation Comments Prothromb Time International Ratio (test code = 6301-6) 1.05 Oral Anticoagulant Therapy INR Values:1. Low Intensity Therapy 1.5 - 2.02 . Moderate Intensity Therapy 2.0 - 3.03. High Intensity Therapy(1) 2.5 - 3. 54. High Intensity Therapy(2) 3.0 - 4.05. Panic Value INR > 5.0 [facility] AntonioProthrombin Zmtl5360-80-12 15:13:00* Test Item Value Reference Range Interpretation Comments Prothrombin Time (test code = 5902-2) 14.4 11.9-14.5 [facility] AntonioProthromb Time International Ratio 2019-07-06 15:13:00* Test Item Value Reference Range Interpretation Comments Prothromb Time International Ratio (test code = 6301-6) 1.05 Oral Anticoagulant Therapy INR Values:1. Low Intensity Therapy 1.5 - 2.02 . Moderate Intensity Therapy 2.0 - 3.03. High Intensity Therapy(1) 2.5 - 3. 54. High Intensity Therapy(2) 3.0 - 4.05. Panic Value INR > 5.0 [facility] AntonioProthrombin time (PT) in platelet poor plasma by coagulation qdyms2205-23-82 14:10:00* Test Item Value Reference Range Interpretation Comments Prothrombin Time (test code = 5902-2) 14.4 11.9-14.5 [facility] AntonioINR in Platelet poor plasma by Coagulation vdxwi3336-73-54 14:10:00* Test Item Value Reference Range Interpretation Comments Prothromb Time International Ratio (test code = 6301-6) 1.05 Oral Anticoagulant Therapy INR Values:1. Low Intensity Therapy 1.5 - 2.02 . Moderate Intensity Therapy 2.0 - 3.03. High Intensity Therapy(1) 2.5 - 3. 54. High Intensity Therapy(2) 3.0 - 4.05. Panic Value INR > 5.0 [facility] AntonioActivated partial thromboplastin time (aPTT) in platelet poor plasma by coagulation oigbc7083-36-00 14:10:00* Test Item Value Reference Range Interpretation Comments Activated Partial Thromboplast Time (test code = 19590-8) 49.7 23.8-35.[address] [facility], 2 IKBXB2860-41-09 13:56:00 PCP- Dr. Kiran Garduno [address] [place] [phone] for Exam:->removed chest tubeFINAL REPORT INDICATION: removed chest tube COMPARISON: Earlier same day TECHNIQUE: Frontal and lateral views of the chest. FINDINGS: Lungs and pleura: Right greater than left effusion and adjacent compressive atelectasis, not significantly changed Heart and mediastinum: Normal heart size. Unremarkable mediastinal contours.Osseous structures: No acute abnormality.Additional findings: None. Signed: Marley Jayort Verified Date/Time: 07/01/2019 13:56:42 Reading Location: [facility] Reading Room , CHEST, 2 VIEWS 2019-07-01 12:44:00PCP- Dr. Kiran Garduno [address] [place] [address] Reason for Exam:->Chest tubeFINAL REPORT [...] Mild bilateral interstitial edema. Signed: Marley Jay ort Verified Date/Time: 07/01/2019 12:44:23 Reading Location: [facility] iology Reading Room Electronically signed by: MARLEY JAY MD on 0 07/01/2019 12:44 PM Bedside Jnlrete8704-68-43 14:39:00* Test Item Value Reference Range Interpretation Comments Bedside Glucose (test code = 10244-1) 126 70-120 H Meter ID: [id number] [facility] HospitalCHES SINGLE (PORTABLE)2019-06-04 14:23:00 [facility] [address] [place] [address] Patient Name: JOSHUA WHEELER MR #: [id number] : 1960 Age/Sex: 58/M Req #: [id number] Adm Physician: BRETT CAZARES MD Ordered by: BRETT CAZARES MD Report #: [id number] Location: [facility] Room/Bed: [place] [address] Procedure: [id number] DX/CHEST SINGLE (PORTABLE) Exam Date: 06/04/19 Exam [...] Elaine on 06/04/2019 2:25 PM Dictated By: AELX ELAINE MD 24 Transcribed By: LOREE on 06/04/191424 COPY TO: LORY CAZARES MD Platelet Morphology Whpagfg2796-33-64 07:19:00* Test Item Value Reference Range Interpretation Comments Platelet Morphology Comment (test code = 77288-3) NO EDTA PLT CLUMP S [facility] AntonioPlatelet Morphology Xvmvzbx7376-58-41 07:19:00* Test Item Value Reference Range Interpretation Comments Platelet Morphology Comment (test code = 54165-2) NO EDTA PLT CLUMP S [facility] AntonioPlatelet Morphology Mmswrgm0102-74-87 07:19:00* Test Item Value Reference Range Interpretation Comments Platelet Morphology Comment (test code = 15060-4) NO EDTA PLT CLUMP [facility] AmericaPlatelet Morphology Yshqrcf4674-73-59 07:19:00* Test Item Value Reference Range Interpretation Comments Platelet Morphology Comment (test code = 68551-5) NO EDTA PLT CLUMP S [facility] Centerodium Dphfe2509-11-35 05:54:00* Test Item Value Reference Range Interpretation Comments Sodium Level (test code = 2951-2) 131 136-145 L [facility] AntonioPotassium Nkuqs0554-81-51 05:54:00* Test Item Value Reference Range Interpretation Comments Potassium Level (test code = 2823-3) 3.9 3.5-5.1 [facility] AntonioChloride Ywklw1831-88-56 05:54:00* Test Item Value Reference Range Interpretation Comments Chloride Level (test code = 2075-0) 94 98-107 L [facility] AntonioCarbon Dioxide Nmdkt3071-01-68 05:54:00* Test Item Value Reference Range Interpretation Comments Carbon Dioxide Level (test code = 2028-9) 24 22-29 [facility] AntonioAnion Tie2420-67-52 05:54:00* Test Item Value Reference Range Interpretation Comments Anion Gap (test code = 84394-2) 16.9 8-16 H [facility] AntonioBlood Urea Hxzoywew5949-02-23 05:54:00* Test Item Value Reference Range Interpretation Comments Blood Urea Nitrogen (test code = 3094-0) 36 7-26 H [facility] AntonioCreatinine2020-02-05 05:54:00* Test Item Value Reference Range Interpretation Comments Creatinine (test code = 2160-0) 5.83 0.72-1.25 H [facility] AntonioBUN/Creatinine Mqevs1255-26-74 05:54:00* Test Item Value Reference Range Interpretation Comments BUN/Creatinine Ratio (test code = 3097-3) 6 6-25 [facility] AntonioEstimat Glomerular Filtration Rate 2019-06-04 05:54:00* Test Item Value Reference Range Interpretation Comments Estimat Glomerular Filtration Rate (test code = 874299601) 10 >60 L Ranges were taken from the National Kidney Disease Education Program and the Pending sale to [facility] literature.Reference ranges:60 or greater: Lgxqmq57-80 ( for 3 consecutive months): Chronic kidney disease 15 or less: Kidney failureChildren's Hospital of San AntonioGlucose Dkyol9276-11-76 05:54:00* Test Item Value Reference Range Interpretation Comments Glucose Level (test code = JWL7804) 81 74-118 [facility] AntonioCalcium Llngh2379-84-50 05:54:00* Test Item Value Reference Range Interpretation Comments Calcium Level (test code = 18216-9) 7.8 8.4-10.2 L [facility] AntonioWhite Blood Iifwy5128-52-50 05:34:00* Test Item Value Reference Range Interpretation Comments White Blood Count (test code = 6690-2) 7.40 4.8-10.8 [facility] AntonioRed Blood Btkdy2666-21-08 05:34:00* Test Item Value Reference Range Interpretation Comments Red Blood Count (test code = 789-8) 3.29 4.3-5.7 L [facility] AntonioHemoglobin2020-02-05 05:34:00* Test Item Value Reference Range Interpretation Comments Hemoglobin (test code = 81718-3) 9.7 14.0-18.0 L [facility] AntonioHematocrit2020-02-05 05:34:00* Test Item Value Reference Range Interpretation Comments Hematocrit (test code = 4544-3) 27.8 38.2-49.6 L [facility] AntonioMean Corpuscular Mjnrnm9562-16-68 05:34:00* Test Item Value Reference Range Interpretation Comments Mean Corpuscular Volume (test code = 787-2) 84.5 81-99 [facility] AntonioMean Corpuscular Yyhoexxuze0841-05-41 05:34:00* Test Item Value Reference Range Interpretation Comments Mean Corpuscular Hemoglobin (test code = 785-6) 29.5 28-32 [facility] San AntonioMean Corpuscular Hemoglobin Concent 2019-06-04 05:34:00* Test Item Value Reference Range Interpretation Comments Mean Corpuscular Hemoglobin Concent (test code = 786-4) 34.9 31-35 [facility] AntonioRed Cell Distribution Kenzw8563-40-17 05:34:00* Test Item Value Reference Range Interpretation Comments Red Cell Distribution Width (test code = 83784-5) 13.7 11.7 -14.4 [facility] AntonioPlatelet Gwihi1416-74-42 05:34:00* Test Item Value Reference Range Interpretation Comments Platelet Count (test code = 777-3) 136 140-360 L [facility] AntonioNeutrophils (%) (Auto)2019-06-04 05:34:00 * Test Item Value Reference Range Interpretation Comments Neutrophils (%) (Auto) (test code = 73009-7) 68.2 38.7-80.0 [facility] AntonioLymphocytes (%) (Auto)2019-06-04 05:34:00 * Test Item Value Reference Range Interpretation Comments Lymphocytes (%) (Auto) (test code = 736-9) 12.6 18.0-39.1 L [facility] AntonioMonocytes (%) (Auto)2019-06-04 05:34:00* Test Item Value Reference Range Interpretation Comments Monocytes (%) (Auto) (test code = 5905-5) 14.2 4.4-11.3 H [facility] AntonioEosinophils (%) (Auto)2019-06-04 05:34:00 * Test Item Value Reference Range Interpretation Comments Eosinophils (%) (Auto) (test code = 713-8) 3.6 0.0-6.0 [facility] AntonioBasophils (%) (Auto)2019-06-04 05:34:00* Test Item Value Reference Range Interpretation Comments Basophils (%) (Auto) (test code = 706-2) 1.1 0.0-1.0 H [facility] AntonioIM GRANULOCYTES %2019-06-04 05:34:00* Test Item Value Reference Range Interpretation Comments IM GRANULOCYTES % (test code = IM GRANULOCYTES %) 0.3 0.0- 1.0 [facility] AntonioNeutrophils # (Auto)2019-06-04 05:34:00* Test Item Value Reference Range Interpretation Comments Neutrophils # (Auto) (test code = 751-8) 5.1 2.1-6.9 [facility] AntonioLymphocytes # (Auto)2019-06-04 05:34:00* Test Item Value Reference Range Interpretation Comments Lymphocytes # (Auto) (test code = 33719-0) 0.9 1.0-3.2 L [facility] AntonioMonocytes # (Auto)2019-06-04 05:34:00* Test Item Value Reference Range Interpretation Comments Monocytes # (Auto) (test code = 742-7) 1.1 0.2-0.8 H [facility] AntonioEosinophils # (Auto)2019-06-04 05:34:00* Test Item Value Reference Range Interpretation Comments Eosinophils # (Auto) (test code = 711-2) 0.3 0.0-0.4 [facility] AntonioBasophils # (Auto)2019-06-04 05:34:00* Test Item Value Reference Range Interpretation Comments Basophils # (Auto) (test code = 704-7) 0.1 0.0-0.1 [facility] AntonioAbsolute Immature Granulocyte (auto 2019-06-04 05:34:00* Test Item Value Reference Range Interpretation Comments Absolute Immature Granulocyte (auto (dany t code = Absolute Immature Granulocyte (auto) 0.02 0-0.1 [facility] AntonioPlatelet zaiblrffhi6671-01-84 04:10:00* Test Item Value Reference Range Interpretation Comments Platelet Morphology Comment (test code = 21804-7) See Comment NO EDTA PLT CLUMPSChildren's Hospital of San AntonioIron Yvhzt0122-39-72 06:38:00* Test Item Value Reference Range Interpretation Comments Iron Level (test code = 2498-4) 104 65-175 [facility] AntonioTotal Iron Binding Mzvobclm4906-53-74 06:38:00* Test Item Value Reference Range Interpretation Comments Total Iron Binding Capacity (test code = 2500-7) 139 261-4 78 L [facility] San AntonioPercent Iron Dahgpzeihw5178-12-34 06:38:00* Test Item Value Reference Range Interpretation Comments Percent Iron Saturation (test code = 2502-3) 75 15-50 H [facility] San AntonioTransferrin2020-02-03 06:38:00* Test Item Value Reference Range Interpretation Comments Transferrin (test code = 3034-6) 99 174-364 L [facility] AntonioCHEST SINGLE (PORTABLE)2019-06-01 15:53:00 [place] [address] Patient Name: JOSHUA WHEELER MR #: [id number] : 1960 Age/Sex: 58/M Req #: [id number] Adm Physician: BRETT CAZARES MD Ordered by: ADRIEN CABRAL MANAGER SKILLED Report #: [id number] Location: [facility] Room/Bed: [place] [address] Procedure: [id number] DX/CHEST SINGLE (PORTABLE) Exam Date: 06/01/19 Exam Time: 1530 REPORT STATUS: Signed EXAMINATION: CHEST SINGLE (PORTABLE) COMPARISON: Chest x-ray performed earlier same day INDICATION: [id number] DISCUSSION: HEART AND MEDIASTINUM: Stable cardiomegaly LINES: [...] MD 57 Transcrib ed By: LOREE on 06/01/19 159 COPY TO: ADRIEN CABRAL NP Stool Occult Sqoln7610-13-98 15:25:00* Test Item Value Reference Range Interpretation Comments Stool Occult Blood (test code = 2335-8) NEGATIVE NEGATIVE [facility] Occult Enukc1343-60-44 15:25:00* Test Item Value Reference Range Interpretation Comments Stool Occult Blood (test code = 2335-8) NEGATIVE NEGATIVE [facility] Occult Mwstz7272-80-43 15:25:00* Test Item Value Reference Range Interpretation Comments Stool Occult Blood (test code = 2335-8) NEGATIVE NEGATIVE [facility] Occult Pmbmb1627-09-07 15:25:00* Test Item Value Reference Range Interpretation Comments Stool Occult Blood (test code = 2335-8) NEGATIVE NEGATIVE [facility] AntonioCHES 2 MKUZR4799-57-65 08:00:00 [place] [address] Patient Name: JOSHUA WHEELER MR #: [id number] : 1960 Age/Sex: 58/M Req #: [id number] Adm Physician: BRETT CAZARES MD Ordered by: KEN SCOTT MD Report #: [id number] Location: [facility] Room/Bed: [place] [address] Procedure: [id number] DX /CHEST 2 VIEWS Exam Date: 06/01/19 Exam Time: 07 REPORT STATUS: Signed EXAMINATION: CHEST 2 VIEWS [...] on 06/01/19808 COPY TO: KEN CHANEL MD Total Xegccpxlt3798-23-98 06:02:00* Test Item Value Reference Range Interpretation Comments Total Bilirubin (test code = 1975-2) 0.8 0.2-1.2 [facility] AntonioAspartate Amino Transf (AST/SGOT) 2019-05-31 06:02:00* Test Item Value Reference Range Interpretation Comments Aspartate Amino Transf (AST/SGOT) (test code = Aspartate Amino Transf (AST/SGOT)) 25 5-34 [facility] AntonioAlanine Aminotransferase (ALT/SGPT) 2019-05-31 06:02:00* Test Item Value Reference Range Interpretation Comments Alanine Aminotransferase (ALT/SGPT) (test code = 1742-6) 20 0-55 [facility] [place] Htasrdr7401-49-08 06:02:00* Test Item Value Reference Range Interpretation Comments Total Protein (test code = 2885-2) 6.3 6.5-8.1 L [facility] AntonioAlbumin2020-02-01 06:02:00* Test Item Value Reference Range Interpretation Comments Albumin (test code = 1751-7) 2.3 3.5-5.0 L [facility] AntonioGlobulin2020-02-01 06:02:00* Test Item Value Reference Range Interpretation Comments Globulin (test code = 37835-5) 4.0 2.3-3.5 H [facility] AntonioAlbumin/Globulin Sakky4830-99-72 06:02:00 * Test Item Value Reference Range Interpretation Comments Albumin/Globulin Ratio (test code = 1759-0) 0.6 0.8-2.0 L [facility] AntonioAlkaline Yrvlgltwqic4269-50-26 06:02:00* Test Item Value Reference Range Interpretation Comments Alkaline Phosphatase (test code = 6768-6) 128 40-150 [facility] AntonioCHEST SINGLE (PORTABLE)2019-05-30 06:43:00 [facility] [address] [address] Patient Name: JOSHUA WHEELER MR #: [id number] : 1960 Age/Sex: 58/M Req #: [id number] Adm Physician: BRETT CAZARES MD Ordered by: MARILIN JUAN MD Report #: [id number] Location: [facility] Room/Bed: [place] [address] Procedure: [id number] DX/CHEST SINGLE (PORTABLE) Exam Date: 05/30/19 Exam [...] on 05/30/19644 COPY TO: MARILIN JUAN MD Phosphorus Pnmox4276-18-39 06:27:00* Test Item Value Reference Range Interpretation Comments Phosphorus Level (test code = UQH9743) 1.0 2.3-4.7 L [facility] AntonioMagnesium Bitjb1995-94-42 06:27:00* Test Item Value Reference Range Interpretation Comments Magnesium Level (test code = 29209-3) 2.0 1.3-2.1 [facility] AntonioPhosphorus Hqbxu6138-55-12 06:27:00* Test Item Value Reference Range Interpretation Comments Phosphorus Level (test code = UEM2944) 1.0 2.3-4.[address]2019-05-29 19:34:00 [place] [address] Patient Name: JOSHUA WHEELER MR #: [id number] : 1960 Age/Sex: 58/M Req #: [id number] Adm Physician: BRETT CAZARES MD Ordered by: MARILIN JUAN MD Report #: [id number] Location: [facility] Room/Bed: [place] [address] Procedure: [id number] DX/CHEST SINGLE (PORTABLE) Exam Date: Exam Time: [...] MARILIN JUAN MD CHEST SINGLE (PORTABLE)2019-05-29 06:00:00 [place] [address] Patient Name: JOSHUA WHEELER MR #: [id number] : 1960 Age/Sex: 58/M Req #: [id number] Adm Physician: BRETT CAZARES MD Ordered by: MARILIN JUAN MD Report #: [id number] Location: [facility] Room/Bed: [place] [address] Procedure: [id number] DX/CHEST SINGLE (PORTABLE) Exam Date: 05/29/19 Exam Time: 514 REPORT STATUS: Signed EXAMINATION: CHEST SINGLE (PORTABLE) [...] MARILIN JUAN MD CHEST SINGLE (PORTABLE)2019-05-28 15:04:00 [address] [place] [address] Patient Name: JOSHUA WHEELER MR #: [id number] : 1960 Age/Sex: 58/M Req #: [id number] Adm Physician: BRETT CAZARES MD Ordered by: MARILIN JUAN MD Report #: [id number] Location: [facility] Room/Bed: [place] [address] Procedure: [id number] DX/CHEST SINGLE (PORTABLE) Exam Date: Exam Time: [...] 3:08 PM Dictated By: LIZ OROZCO MD 0438 Transcribed By: LOREE on 05/28/19 9462 COPY TO: MARILIN GORDON MD CHEST SINGLE (PORTABLE)2019-05-28 06:04:00 [place] [address] Patient Name: JOSHUA WHEELER MR #: [id number] : 1960 Age/Sex: 58/M Req #: [id number] Adm Physician: BRETT CAZARES MD Ordered by: MARILIN JUAN MD Report #: [id number] Location: [facility] Room/Bed: [place] [address] Procedure: [id number] DX/CHEST SINGLE (PORTABLE) Exam Date: Exam Time: [...] MARILIN JUAN MD CHEST SINGLE (PORTABLE)2019-05-27 05:49:00 [place] [address] Patient Name: JOSHUA WHEELER MR #: [id number] : 1960 Age/Sex: 58/M Req #: [id number] Adm Physician: BRETT CAZARES MD Ordered by: MARILIN JUAN MD Report #: [id number] Location: [facility] Room/Bed: [place] [address] Procedure: [id number] DX/CHEST SINGLE (PORTABLE) Exam Date: 05/27/19 Exam Time: 0500 REPORT STATUS: Signed EXAMINATION: CHEST SINGLE (PORTABLE) COMPARISON: Chest x-ray and CT c hest 05/26/2019 INDICATION: Follow up s/p decortication, chest tubes [id number] Y DISCUSSION: Frontal view of the chest [...] COPY TO: MARILIN JUAN MD Percent Reticulocyte Odwqu4824-17-71 05:47:00* Test Item Value Reference Range Interpretation Comments Percent Reticulocyte Count (test code = 54686-3) 1.6 0.8-2 .2 [facility] AntonioPercent Reticulocyte Uzzaa4421-82-04 05:47:00* Test Item Value Reference Range Interpretation Comments Percent Reticulocyte Count (test code = 81616-5) 1.6 0.8-2 .2 [facility] AntonioPercent Reticulocyte Fmxuw9460-25-65 05:47:00* Test Item Value Reference Range Interpretation Comments Percent Reticulocyte Count (test code = 90637-1) 1.6 0.8-2 .2 [facility] AntonioPercent Reticulocyte Rgobk4900-22-21 05:47:00* Test Item Value Reference Range Interpretation Comments Percent Reticulocyte Count (test code = 05732-0) 1.6 0.8-2 .2 [facility] AntonioAutomated reticulocyte count as percentage of total qwdbciztgpux9759-79-53 04:28:00* Test Item Value Reference Range Interpretation Comments Percent Reticulocyte Count (test code = 67890-3) 1.6 0.8-2 .2 [facility] AntonioCT CHEST HP9470-08-35 09:39:00 [place] [address] Patient Name: JOSHUA WHEELER MR #: [id number] : 1960 Age/Sex: 58/M Req #: [id number] Adm Physician: BRETT CAZARES MD Ordered by: MARILIN JUAN MD Report #: [id number] Location: [facility] Room/Bed: [place] [address] Procedure: [id number] CT/CT CHEST WO Exam Date: 05/26/19 Exam Time: 0631 REPORT STATUS: Signed EXAM: CT Ch est WITHOUT intravenous contrast 05/26/2019 7:00 AM INDICATION: Pneumothorax COMPARISON: Chest radiograph 05/15/2019 TECHNIQUE: Chest was scanned utilWasatch Vapor[employer]ix ng a multidetector helical scanner from the [...] MARILIN JUAN MD CHEST SINGLE (PORTABLE)2019-05-26 09:12:00 [place] [address] Patient Name: JOSHUA WHEELER MR #: [id number] : 1960 Age/Sex: 58/M Req #: [id number] Adm Physician: BRETT CAZARES MD Ordered by: MARILIN JUAN MD Report #: [id number] Location: [facility] Room/Bed: [place] [address] Procedure: [id number] DX/CHEST SINGLE (PORTABLE) Exam Date: 05/26/19 Exam [...] MARILIN JUAN MD CHEST SINGLE (PORTABLE)2019-05-25 09:37:00 [place] [address] Patient Name: JOSHUA WHEELER MR #: [id number] : 1960 Age/Sex: 58/M Req #: [id number] Adm Physician: BRETT CAZARES MD Ordered by: MARILIN JUAN MD Report #: [id number] Location: [facility] Room/Bed: [place] [address] Procedure: [id number] DX/CHEST SINGLE (PORTABLE) Exam Date: 05/25/19 Exam [...] MARILIN JUAN MD CHEST SINGLE (PORTABLE)2019-05-24 08:42:00 [place] [address] Patient Name: JOSHUA WHEELER MR #: [id number] : 1960 Age/Sex: 58/M Req #: [id number] Adm Physician: BRETT CAZARES MD Ordered by: MARILIN JUAN MD Report #: [id number] Location: [facility] Room/Bed: [place] [address] Procedure: [id number] DX/CHEST SINGLE (PORTABLE) Exam Date: 05/24/19 Exam [...] MARILIN JUAN MD CHEST SINGLE (PORTABLE)2019-05-23 08:45:00 [place] [address] Patient Name: JOSHUA WHEELER MR #: [id number] : 1960 Age/Sex: 58/M Req #: [id number] Adm Physician: BRETT CAZARES MD Ordered by: MARILIN JUAN MD Report #: [id number] Location: [facility] Room/Bed: [place] [address] Procedure: [id number] DX/CHEST SINGLE (PORTABLE) Exam Date: 05/23/19 Exam [...] 05/23/19 0846 COPY TO: MARILIN JUAN MD Hepatitis B Surface Antibody, Ochnv4412-57-37 22:43:00* Test Item Value Reference Range Interpretation Comments Hepatitis B Surface Antibody, Quant (test code = 5194-6) >1000.0 Immunity>9.9 Status of Immunity Anti-HBs Level Inconsistent with Immunity 0.0 - 9.9Consistent with Immunity >9.9[facility] B Core Total Akjqqoqm9027-32-87 22:43:00* Test Item Value Reference Range Interpretation Comments Hepatitis B Core Total Antibody (test code = 17660-0) Negative Negative Performed at: - Lab[address] [id number] Director: Alec Javier MD, Phone: [phone] B Surface Khxpkds1560-93-71 22:43:00* Test Item Value Reference Range Interpretation Comments Hepatitis B Surface Antigen (test code = 5196-1) Negative Negat aye [facility] B Surface Antibody, Quant 2019-05-22 22:43:00* Test Item Value Reference Range Interpretation Comments Hepatitis B Surface Antibody, Quant (test code = 5194-6) >1000.0 Immunity>9.9 Status of Immunity Anti-HBs Level Inconsistent with Immunity 0.0 - 9.9Consistent with Immunity >9.9[facility] B Core Total Mwmolsjq9473-46-65 22:43:00* Test Item Value Reference Range Interpretation Comments Hepatitis B Core Total Antibody (test code = 56542-9) Negative Negative Performed at: [address] [id number] Director: Alec Javier MD, Phone: [phone]'s Hospital of San AntonioHepatitis B Surface Antibody, Odxoy7798-14-12 22:43:00* Test Item Value Reference Range Interpretation Comments Hepatitis B Surface Antibody, Quant (test code = 5194-6) >1000.0 Immunity>9.9 Status of Immunity Anti-HBs Level Inconsistent with Immunity 0.0 - 9.9Consistent with Immunity >9.9[facility] Core Total Lagskdjo5493-10-54 22:43:00* Test Item Value Reference Range Interpretation Comments Hepatitis B Core Total Antibody (test code = 64087-8) Negative Negative Performed at: [address] [id number] Director: Alec Javier MD, Phone: [phone]'s Hospital of San AntonioDECLOT VASC IMPLANT/THROMB DR0068-09-73 17:02:00 [place] [address] Patient Name: JOSHUA WHEELER MR #: [id number] : 1960 Age/Sex: 58/M Req #: [id number] Adm Physician: BRETT CAZARES MD Ordered by: ANGEL NARAYAN, GERSON NARAYAN Report #: [id number] Location: [facility] Room/Bed: [place] [address] Procedure: [id number] IR/DECLOT VASC IMPLANT/THROMB AG Exam Date: Exam T dorian: REPORT STATUS: Signed A V fistula declot, 05/22/2019. History: ESRD, clotted AV fistula. Com parison: None available. 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 Elaine. Medication: 5 cc of 1% [...] sheath i nto the vein. A 6 Greek sheath was placed. The patient was given 5000 units o f heparin intravenously. A Trerotola device was used for mechanical thrombecto my with simultaneous infusion within the fistula of 2 mg of TPA. Second access was obtained within the fistula towards the arterial venous anastomosis, with a second 6 Greek sheath placed. The anastomosis was crossed with [...] 1713 COPY TO: GERSON ORTIZ CHEST 2 VDDEC9088-14-79 13:40:00 [facility] [address] [address] Patient Name: JOSHUA WHEELER MR #: [id number] : 1960 Age/Sex: 58/M Req #: [id number] Adm Physician: BRETT CAZARES MD Ordered by: MARILIN JUAN MD Report #: [id number] Location: [facility] Room/Bed: [place] [address] Procedure: [id number] DX/CHEST 2 VIEWS Exam Date: 05/22/19 Exam Time: 1100 REPORT STATUS: Signed Chest, 2 views. Clinical history: Evaluate prior to removal of chest tube. [facility] study: May 20, 2019. Findings: The cardiacs [...] MARILIN JUAN MD CHEST SINGLE (PORTABLE)2019-05-21 14:22:00 [place] [address] Patient Name: JOSHUA WHEELER MR #: [id number] : 1960 Age/Sex: 58/M Req #: [id number] Adm Physician: BRETT CAZARES MD Ordered by: KEN SCOTT MD Report #: [id number] Location: [facility] Room/Bed: [place] [address] Procedure: [id number] DX /CHEST SINGLE (PORTABLE) Exam Date: 05/21/19 [...] COPY TO: KEN SCOTT MD CHEST 2 APUHI3669-00-22 18:21:00 [place] [address] Patient Name: JOSHUA WHEELER MR #: [id number] : 1960 Age/Sex: 58/M Req #: [id number] Adm Physician: BRETT CAZARES MD Ordered by: KEN SCOTT MD Report #: [id number] Location: [facility] Room/Bed: [place] [address] Procedure: [id number] DX /CHEST 2 VIEWS Exam Date: 05/20/19 Exam Time: 1800 REPORT STATUS: Signed EXAMINATION: CHEST 2 VIEWS [...] KEN SCOTT MD IR CONSULT 2019-05-20 18:04:00 [place] [address] Patient Name: JOSHUA WHEELER MR #: [id number] : 1960 Age/Sex: 58/M Req #: [id number] Adm Physician: BRETT CAZARES MD Ordered by: ANGEL NARAYAN, GERSON NARAYAN Report #: [id number] Location: [facility] Room/Bed: [place] [address] Procedure: [id number] DX/IR CONSULT Exam Date: Exam Time: REPORT [...] A sterile dressing was applied. Catheter placed: Usermind Trialysis Catheter size (Greek): [address] length (cm): 20 Catheter [...] PM Dictated By: KEVIN BANDA MD 1208 COPY TO: ERICA ORTIZ NON-TUNNELLED CVC CATH YQIWSLS6442-55-47 18:04:00 [place] [address] Patient Name: JOSHUA WHEELER MR #: [id number] : 1960 Age/Sex: 58/M Req #: [id number] Adm Physician: BRETT CAZARES MD Ordered by: ANGEL NARAYAN, GERSON NARAYAN Report #: [id number] Location: [facility] Room/Bed: [facility] 1991 Procedure: [id number] IR/NON-TUNNELLED CVC CATH PLACMNT Exam Date: 05/20/19 Exam Time: 1645 REPORT STATUS: S igned PROCEDURE: Non-tunneled central venous catheter placement Binta baez Personnel Attending physician(s): Kevin Banda MD Fellow [...] Catheter placed: Bard Trialysis Ca theter size (Greek): 13 Catheter length (cm): 20 Catheter flush: [...] on 05/27/19 1208 COPY TO: GERSON ORTIZ GUIDANCE FOR VASCULAR ACCES 2019-05-20 18:04:00 [place] [address] Patient Name: JOSHUA WHEELER MR #: [id number] : 1960 Age/Sex: 58/M Req #: [id number] Adm Physician: BRETT CAZARES MD Ordered by: ANGEL NRAAYAN, GERSON NARAYAN Report #: [id number] Location: [facility] Room/Bed: [place] [address] Procedure: [id number] US/US GUIDANCE FOR VASCULAR ACCES Exam Date: 05/20/19 [...] Catheter placed: Bard Trialysis Ca theter size (Greek): 13 Catheter length (cm): 20 Catheter flush: [...] LOREE on 05/27/191207 COPY TO: GERSON ORTIZ PLSC OR REM 2019-05-20 18:04:00 [place] [address] Patient Name: JOSHUA WHEELER MR #: [id number] : 1960 Age/Sex: 58/M Req #: [id number] Adm Physician: BRETT CAZARES MD Ordered by: ANGEL NARAYAN, GERSON NARAYAN Report #: [id number] Location: [facility] Room/Bed: [place] [address] Procedure: [id number] IR/[facility] PL[facility] OR REM Exam Date: [...] Catheter placed: Bard Trialysis Ca theter size (Greek): 13 Catheter length (cm): 20 Catheter flush: [...] LOREE on 05/27/191207 COPY TO: GERSON ORTIZ CHEST SINGLE (PORTABLE)2019-05-19 11:54:00 [place] [address] Patient Name: JOSHUA WHEELER MR #: [id number] : 1960 Age/Sex: 58/M Req #: [id number] Adm Physician: BRETT CAZARES MD Ordered by: MARILIN JUAN MD Report #: [id number] Location: [facility] Room/Bed: [place] [address] Procedure: [id number] DX/CHEST SINGLE (PORTABLE) Exam Date: 05/19/19 Exam [...] ctronically Signed By: KEVIN BANDA MD on 05/19/191156 Transcribed By: LOREE pérez 05/19/191156 COPY TO: MARILIN JUAN MD CHEST SINGLE (PORTABLE)2019-05-19 07:55:00 [place] [address] Patient Name: JOSHUA WHEELER MR #: [id number] : 1960 Age/Sex: 58/M Req #: [id number] Adm Physician: BRETT CAZARES MD Ordered by: KEN SCOTT MD Report #: [id number] Location: [facility] Room/Bed: [place] [address] Procedure: [id number] DX /CHEST SINGLE (PORTABLE) Exam Date: 05/19/19 [...] on 05/19/19756 COPY TO: KEN SCOTT MD Prothrombin Aina2032-19-76 05:53:00* Test Item Value Reference Range Interpretation Comments Prothrombin Time (test code = 5902-2) 13.6 11.9-14.5 [facility] AntonioProthromb Time International Ratio 2019-05-19 05:53:00* Test Item Value Reference Range Interpretation Comments Prothromb Time International Ratio (test code = 6301-6) 0.99 Oral Anticoagulant Therapy INR Values:1. Low Intensity Therapy 1.5 - 2.02 . Moderate Intensity Therapy 2.0 - 3.03. High Intensity Therapy(1) 2.5 - 3. 54. High Intensity Therapy(2) 3.0 - 4.05. Panic Value INR > 5.0 [facility] SINGLE (PORTABLE)2019-05-17 06:35:00 [facility] [address] [place] [address] Patient Name: JOSHUA WHEELER MR #: [id number] : 1960 Age/Sex: 58/M Req #: [id number] Adm Physician: BRETT CAZARES MD Ordered by: MARILIN JUAN MD Report #: [id number] Location: ICU Room/Bed: [place] [address] Procedure: [id number] DX/CHEST SINGLE (PORTABLE) Exam Date: 05/17/19 Exam [...] TO: MARILIN JUAN MD Differential Total Cells Ytlawao1468-40-67 09:14:00* Test Item Value Reference Range Interpretation Comments Differential Total Cells Counted (test code = Differbi tial Total Cells Counted) 100 [facility] AntonioNeutrophils % (Manual)2019-05-16 09:14:00 * Test Item Value Reference Range Interpretation Comments Neutrophils % (Manual) (test code = 76776-3) 88 40-74 H [facility] AntonioLymphocytes % (Manual)2019-05-16 09:14:00 * Test Item Value Reference Range Interpretation Comments Lymphocytes % (Manual) (test code = 737-7) 4 19-48 L [facility] AntonioMonocytes % (Manual)2019-05-16 09:14:00* Test Item Value Reference Range Interpretation Comments Monocytes % (Manual) (test code = 744-3) 5 3.4-9.0 [facility] AntonioEosinophils % (Manual)2019-05-16 09:14:00 * Test Item Value Reference Range Interpretation Comments Eosinophils % (Manual) (test code = 714-6) 3 0-7 [facility] AntonioPlatelet Kdvdawbu2838-37-75 09:14:00* Test Item Value Reference Range Interpretation Comments Platelet Estimate (test code = 93227-5) ADEQUATE [facility] AntonioRed Cell Morphology Ivohuof9314-07-32 09:14:00* Test Item Value Reference Range Interpretation Comments Red Cell Morphology Comment (test code = 6742-1) NORMAL [facility] AntonioDifferential Total Cells Counted 2019-05-16 09:14:00* Test Item Value Reference Range Interpretation Comments Differential Total Cells Counted (test code = Differen tial Total Cells Counted) 100 [facility] AntonioNeutrophils % (Manual)2019-05-16 09:14:00 * Test Item Value Reference Range Interpretation Comments Neutrophils % (Manual) (test code = 66623-5) 88 40-74 H [facility] AntonioLymphocytes % (Manual)2019-05-16 09:14:00 * Test Item Value Reference Range Interpretation Comments Lymphocytes % (Manual) (test code = 737-7) 4 19-48 L [facility] AntonioMonocytes % (Manual)2019-05-16 09:14:00* Test Item Value Reference Range Interpretation Comments Monocytes % (Manual) (test code = 744-3) 5 3.4-9.0 [facility] AntonioEosinophils % (Manual)2019-05-16 09:14:00 * Test Item Value Reference Range Interpretation Comments Eosinophils % (Manual) (test code = 714-6) 3 0-7 [facility] AntonioPlatelet Nqiihyxe4784-66-24 09:14:00* Test Item Value Reference Range Interpretation Comments Platelet Estimate (test code = 16670-4) ADEQUATE [facility] AntonioRed Cell Morphology Aicybjg6138-08-29 09:14:00* Test Item Value Reference Range Interpretation Comments Red Cell Morphology Comment (test code = 6742-1) NORMAL [facility] AntonioDifferential Total Cells Counted 2019-05-16 09:14:00* Test Item Value Reference Range Interpretation Comments Differential Total Cells Counted (test code = Differen tial Total Cells Counted) 100 [facility] AntonioNeutrophils % (Manual)2019-05-16 09:14:00 * Test Item Value Reference Range Interpretation Comments Neutrophils % (Manual) (test code = 75767-8) 88 40-74 H [facility] AntonioLymphocytes % (Manual)2019-05-16 09:14:00 * Test Item Value Reference Range Interpretation Comments Lymphocytes % (Manual) (test code = 737-7) 4 19-48 L [facility] AntonioMonocytes % (Manual)2019-05-16 09:14:00* Test Item Value Reference Range Interpretation Comments Monocytes % (Manual) (test code = 744-3) 5 3.4-9.0 [facility] AntonioEosinophils % (Manual)2019-05-16 09:14:00 * Test Item Value Reference Range Interpretation Comments Eosinophils % (Manual) (test code = 714-6) 3 0-7 [facility] AntonioPlatelet Nbyihimq4322-42-88 09:14:00* Test Item Value Reference Range Interpretation Comments Platelet Estimate (test code = 21343-3) ADEQUATE [facility] AntonioRed Cell Morphology Pzgbtir9345-77-58 09:14:00* Test Item Value Reference Range Interpretation Comments Red Cell Morphology Comment (test code = 6742-1) NORMAL [facility] AntonioDifferential Total Cells Counted 2019-05-16 09:14:00* Test Item Value Reference Range Interpretation Comments Differential Total Cells Counted (test code = Differen tial Total Cells Counted) 100 [facility] AntonioNeutrophils % (Manual)2019-05-16 09:14:00 * Test Item Value Reference Range Interpretation Comments Neutrophils % (Manual) (test code = 34446-4) 88 40-74 H [facility] AntonioLymphocytes % (Manual)2019-05-16 09:14:00 * Test Item Value Reference Range Interpretation Comments Lymphocytes % (Manual) (test code = 737-7) 4 19-48 L [facility] AntonioMonocytes % (Manual)2019-05-16 09:14:00* Test Item Value Reference Range Interpretation Comments Monocytes % (Manual) (test code = 744-3) 5 3.4-9.0 [facility] AntonioEosinophils % (Manual)2019-05-16 09:14:00 * Test Item Value Reference Range Interpretation Comments Eosinophils % (Manual) (test code = 714-6) 3 0-7 [facility] AntonioPlatelet Bfxpkcpr4183-16-97 09:14:00* Test Item Value Reference Range Interpretation Comments Platelet Estimate (test code = 13275-2) ADEQUATE [facility] AntonioRed Cell Morphology Ifasyzv3274-00-85 09:14:00* Test Item Value Reference Range Interpretation Comments Red Cell Morphology Comment (test code = 6742-1) NORMAL [facility] AntonioCHEST SINGLE (PORTABLE)2019-05-16 07:08:00 [facility] [address] [place] [address] Patient Name: JOSHUA WHEELER MR #: [id number] : 1960 Age/Sex: 58/M Req #: [id number] Adm Physician: BRETT CAZARES MD Ordered by: MARILIN JUAN MD Report #: [id number] Location: ICU Room/Bed: [place] [address] Procedure: [id number] DX/CHEST SINGLE (PORTABLE) Exam Date: 05/16/19 Exam [...] MD 0 COPY TO: STEPHANIE JUAN MD Fluoroscopic procedure less than one hour yvhxnsvc1060-21-82 03:40:00* Test Item Value Reference Range Interpretation Comments Differential Total Cells Counted (test code = Differbi tial Total Cells Counted) 100 [facility] blood neutrophils/100 leukocytes 2019-05-16 03:40:00* Test Item Value Reference Range Interpretation Comments Neutrophils % (Manual) (test code = 69179-9) 88 40-74 [facility] blood lymphocytes/100 leukocytes 2019-05-16 03:40:00* Test Item Value Reference Range Interpretation Comments Lymphocytes % (Manual) (test code = 737-7) 4 19-48 [facility] blood monocytes/100 leukocytes 2019-05-16 03:40:00* Test Item Value Reference Range Interpretation Comments Monocytes % (Manual) (test code = 744-3) 5 3.4-9.0 [facility] blood eosinophil count as percentage of total dikkfangvf3704-87-47 03:40:00* Test Item Value Reference Range Interpretation Comments Eosinophils % (Manual) (test code = 714-6) 3 0-7 [facility] AntonioBlood platelets count by estimate (number/volume)2019-05-16 03:40:00* Test Item Value Reference Range Interpretation Comments Platelet Estimate (test code = 65947-0) ADEQUATE [facility] AntonioRBC lotxrguvvx4198-44-24 03:40:00* Test Item Value Reference Range Interpretation Comments Red Cell Morphology Comment (test code = 6742-1) NORMAL [facility] AntonioBody Fluid Sxmucecmquy2597-44-99 22:05:00 * Test Item Value Reference Range Interpretation Comments Body Fluid Neutrophils (test code = 04267-8) 1 [facility] AntonioBody Fluid Mukowkhurdh7111-15-24 22:05:00 * Test Item Value Reference Range Interpretation Comments Body Fluid Lymphocytes (test code = 37182143) 63 [facility] Fluid Cysvqwycy9415-89-95 22:05:00* Test Item Value Reference Range Interpretation Comments Body Fluid Monocytes (test code = 26308-3) 35 [facility] Fluid Other Udkzg8634-41-48 22:05:00 * Test Item Value Reference Range Interpretation Comments Body Fluid Other Cells (test code = 757699118) 1 [facility] [facility] Fluid Total Cells Counted 2019-05-15 22:05:00* Test Item Value Reference Range Interpretation Comments Body Fluid Total Cells Counted (test code = 54703-6) 100 [facility] Fluid Vnxeulehsvy7492-22-13 22:05:00 * Test Item Value Reference Range Interpretation Comments Body Fluid Neutrophils (test code = 97823-1) 1 [facility] Fluid Hndkfmndchy7800-09-15 22:05:00 * Test Item Value Reference Range Interpretation Comments Body Fluid Lymphocytes (test code = 48759609) 63 [facility] Fluid Dpzxealno8250-95-54 22:05:00* Test Item Value Reference Range Interpretation Comments Body Fluid Monocytes (test code = 25247-6) 35 [facility] Fluid Other Kawpg1761-37-45 22:05:00 * Test Item Value Reference Range Interpretation Comments Body Fluid Other Cells (test code = 886089990) 1 [facility] Fluid Total Cells Counted 2019-05-15 22:05:00* Test Item Value Reference Range Interpretation Comments Body Fluid Total Cells Counted (test code = 12341-4) 100 [facility] Fluid Other Eyyko7407-51-09 22:05:00 * Test Item Value Reference Range Interpretation Comments Body Fluid Other Cells (test code = 237452822) 1 [facility] 2019-05-15 22:05:00* Test Item Value Reference Range Interpretation Comments Body Fluid Other Cells (test code = 389186463) 1 [facility]Body Fluid VYN0335-80-20 21:56:00* Test Item Value Reference Range Interpretation Comments Body Fluid WBC (test code = 6743-9) 385 [facility] Fluid EYD8245-13-88 21:56:00* Test Item Value Reference Range Interpretation Comments Body Fluid RBC (test code = 6741-3) 01998 [facility] Fluid QJZ7065-81-26 21:56:00* Test Item Value Reference Range Interpretation Comments Body Fluid WBC (test code = 6743-9) 385 [facility] Fluid VDI0227-20-53 21:56:00* Test Item Value Reference Range Interpretation Comments Body Fluid RBC (test code = 6741-3) 93253 [facility] Fluid Zmze2018-25-02 21:19:00* Test Item Value Reference Range Interpretation Comments Body Fluid Type (test code = 69786-1) PLEURAL [facility] Antonio[facility] Fluid Tzfih8867-66-76 21:19:00* Test Item Value Reference Range Interpretation Comments Body Fluid Color (test code = 6824-7) RED [facility] Fluid Qdohxgivvf5419-12-61 21:19:00 * Test Item Value Reference Range Interpretation Comments Body Fluid Appearance (test code = 9335-1) CLOUDY [facility] Fluid Obyb9615-22-46 21:19:00* Test Item Value Reference Range Interpretation Comments Body Fluid Type (test code = 00671-9) PLEURAL [facility] Fluid Nyxwa0039-84-86 21:19:00* Test Item Value Reference Range Interpretation Comments Body Fluid Color (test code = 6824-7) RED [facility] Fluid Ajqedejfsx9551-86-66 21:19:00 * Test Item Value Reference Range Interpretation Comments Body Fluid Appearance (test code = 9335-1) CLOUDY [facility] Fluid Ffvuvou7565-37-17 20:42:00* Test Item Value Reference Range Interpretation Comments Body Fluid Glucose (test code = 2344-0) 65 [facility] Total Dkfifor7819-26-12 20:42:00* Test Item Value Reference Range Interpretation Comments Body Fluid Total Protein (test code = 2881-1) 3.8 [facility] Fluid Wqtzfud2633-74-37 20:42:00* Test Item Value Reference Range Interpretation Comments Body Fluid Glucose (test code = 2344-0) 65 [facility] Total Ufcvvdf4898-46-52 20:42:00* Test Item Value Reference Range Interpretation Comments Body Fluid Total Protein (test code = 2881-1) 3.8 [facility] Fluid Hkjwsfc9045-08-16 20:42:00* Test Item Value Reference Range Interpretation Comments Body Fluid Glucose (test code = 2344-0) 65 [facility] Fluid Total Zjakcga3293-52-74 20:42:00* Test Item Value Reference Range Interpretation Comments Body Fluid Total Protein (test code = 2881-1) 3.8 [facility] Fluid Sybtdgu3281-41-96 20:42:00* Test Item Value Reference Range Interpretation Comments Body Fluid Glucose (test code = 2344-0) 65 [facility] Antonio[facility] Fl[facility] Total Bfuzmtd8370-32-27 20:42:00* Test Item Value Reference Range Interpretation Comments Body Fluid Total Protein (test code = 2881-1) 3.8 [facility] Antonio[facility]ST SINGLE (PORTABLE)2019-05-15 19:45:00 [place] [address] Patient Name: JOSHUA WHEELER MR #: [id number] : 1960 Age/Sex: 58/M Req #: [id number] Adm Physician: BRETT CAZARES MD Ordered by: TAY TATE MD Report #: [id number] Location: ICU Room/Bed: [place] [address] Procedure: [id number] D X/CHEST SINGLE (PORTABLE) Exam Date: 05/15/19 Exam T dorian: 1925 REPORT STATUS: Signed EXAMINATION: CHEST SINGLE (PORTABLE) [...] on 05/15/191947 COPY TO: TAY TATE MD Body fluid other cells manual qitdn6351-01-78 15:55:00* Test Item Value Reference Range Interpretation Comments Body Fluid Other Cells (test code = 391152478) 1 [facility] glucose measurement (mass/volume)2019-05-15 15:55:00* Test Item Value Reference Range Interpretation Comments Body Fluid Glucose (test code = 2344-0) 65 [facility] AntonioBody fluid protein measurement (mass/volume)2019-05-15 15:55:00* Test Item Value Reference Range Interpretation Comments Body Fluid Total Protein (test code = 2881-1) 3.[address] [facility] (T-Spot)2019-05-15 06:51:00* Test Item Value Reference [...] 4Negative Control P assedPositive Control PassedTesting performed by:[id number] [place], [place] [phone]: Alex Billy [facility] CenterTB [facility] (T-Spot)2019-05-15 06:51:00* Test Item Value Reference [...] 4Negative Control P assedPositive Control PassedTesting performed by:[facility] [place] [address] [phone]: [facility] (T-Spot)2019-05-15 06:51:00* Test Item Value Reference [...] 4Negative Control P assedPositive Control PassedTesting performed by:[id number] [place], [place] [phone]: [facility]TB Test (T-Spot)2019-05-15 06:51:00* Test Item Value Reference [...] 4Negative Control P assedPositive Control PassedTesting performed by:[id number] [place], [place] [phone]: Alex [facility] CenterActivated Partial Thromboplast Zjix1984-01-03 06:10:00* Test Item Value Reference Range Interpretation Comments Activated Partial Thromboplast Time (test code = 66775-4) 41.9 23.8-35.[address] [facility] Hospital[facility]INGLE (PORTABLE)2019-05-15 05:48:00 [facility] [address] [place] [address] Patient Name: JOSHUA WHEELER MR #: [id number] : 1960 Age/Sex: 58/M Req #: [id number] Adm Physician: BRETT CAZARES MD Ordered by: MARILIN JUAN MD Report #: [id number] Location: MED/SURG2 Room/Bed: [facility] Procedure: [id number] DX/CHEST SINGLE (PORTABLE) Exam Date: Exam Time: [...] MD on 05/15/19549 Transcribed By: LOREE on 05/15/1950 COPY TO: MARILIN JUAN MD Cqki-7-Wzctfdhbqhvro4373-01-14 19:11:00* Test Item Value Reference Range Interpretation Comments Euxd-5-Thuvobimyydhe (test code = 195-1) 26.8 0.6-2.4 H Siemens Immulite 2000 Immunochemiluminometric assay (ICMA)Values obtained with d ifferent assay methods or kits cannotbe used interchangeably. Results cannot be interpreted asabsolute evidence of the presence or absence of malignantdisease.* *Results verified by repeat testingPerformed at: [address] [id number] Director: Johanna Hines MD, Phone: [phone]'s Hospital of San AntonioBeta-2-Motcqzbebpcwo8280-38-20 19:11:00* Test Item Value Reference Range Interpretation Comments Smhb-3-Cpyqefxtxmzmp (test code = 1951-1) 26.8 0.6-2.4 H Siemens Immulite 2000 Immunochemiluminometric assay (ICMA)Values obtained with d ifferent assay methods or kits cannotbe used interchangeably. Results cannot be interpreted asabsolute evidence of the presence or absence of malignantdisease.* *Results verified by repeat testingPerformed at: [address] [id number] Director: Johanna Hines MD, Phone: [phone]'s Hospital of San AntonioBeta-2-Cwidmqyxdtgdj8227-37-33 19:11:00* Test Item Value Reference Range Interpretation Comments Vjqq-1-Jteaziwtuoxwo (test code = 1951-) 26.8 0.6-2.4 H Siemens Immulite 2000 Immunochemiluminometric assay (ICMA)Values obtained with d ifferent assay methods or kits cannotbe used interchangeably. Results cannot be interpreted asabsolute evidence of the presence or absence of malignantdisease.* *Results verified by repeat testingPerformed at: [address] [id number] Director: Johanna Hines MD, Phone: [phone]'s Hospital of San AntonioBeta-2-Kmasysolwsjnu9888-27-79 19:11:00* Test Item Value Reference Range Interpretation Comments Iaxj-7-Ifzxxdrbqjfhb (test code = 1951-) 26.8 0.6-2.4 H Siemens Immulite 2000 Immunochemiluminometric assay (ICMA)Values obtained with d ifferent assay methods or kits cannotbe used interchangeably. Results cannot be interpreted asabsolute evidence of the presence or absence of malignantdisease.* *Results verified by repeat testingPerformed at: [address] [id number] Director: Johanna Hines MD, Phone: [phone]'s Hospital of San AntonioHEPTOBILIARY2020-01-14 14:01:00 [place] [address] Patient Name: JOSHUA WHEELER MR #: [id number] : 1960 Age/Sex: 58/M Req #: [id number] Adm Physician: BRETT CAZARES MD Ordered by: REGGIE VAIL MD Report #: [id number] Location: MED/SURG2 Room/Bed: [facility] Procedure: [id number] NM/HEPTOBILIARY Exam Date: 05/12/19 Exam Time: 1400 [...] 2:03 PM Dictated By: IVY ARENAS MD 02 COPY TO: BRENTON VAIL MD CT CHEST WE9206-84-03 09:09:00 [place] [address] Patient Name: JOSHUA WHEELER MR #: [id number] : 1960 Age/Sex: 58/M Req #: [id number] Adm Physician: BRETT CAZARES MD Ordered by: EDIN FRAIRE MD Report #: [id number] Location: MED/SURG2 Room/Bed: [facility] Procedure: [id number]/CT CHEST WO Exam [...] SANTIAGO FRAIRE MD CHEST SINGLE (PORTABLE)2019-05-12 18:32:00 [place] [address] Patient Name: JOSHUA WHEELER MR #: [id number] : 1960 Age/Sex: 58/M Req #: [id number] Adm Physician: BRETT CAZARES MD Ordered by: ANGEL NARAYAN, GERSON NARAYAN Report #: [id number] Location: MED/SURG2 Room/Bed: [facility] Procedure: [id number] DX/CHEST SINGLE (PORTABLE) Exam Date: Exam Time: [...] LOREE on 05/12/191832 COPY TO: GERSON ORTIZ THORACENTESIS/ NEGVMB7443-95-29 17:14:00 [place] [address] Patient Name: JOSHUA WHEELER MR #: [id number] : 1960 Age/Sex: 58/M Req #: [id number] Adm Physician: BRETT CAZARES MD Ordered by: GERSON ORTIZ MD, MD Report #: [id number] Location: MED/SURG2 Room/Bed: [facility] Procedure: [id number] US/THORACENTESIS/US GUIDED Exam Date: 05/12/19 Exam Time: [...] MD 14 Transcribed By: LOREE on 05/12/191714 [employer] Y TO: GERSON ORTIZ IR XYKSKKU9202-54-09 17:14:00 [place] [address] Patient Name: JOSHUA WHEELER MR #: [id number] : 1960 Age/Sex: 58/M Req #: [id number] Adm Physician: BRETT CAZARES MD Ordered by: ANGEL NARAYAN, GERSON NARAYAN Report #: [id number] Location: MED/SURG2 Room/Bed: [facility] Procedure: [id number] DX/IR CONSULT Exam Date: Exam Time: REPORT [...] D ictated By: KEVIN BANDA MD 1 473 Transcribed By: LOREE on 05/12/19 9610 COPY TO: GERSON ORTIZ Blood Tgkntmo4817-02-54 16:30:00* Test Item Value Reference Range Interpretation Comments Blood Culture (test code = 90821399) NO GROWTH AFTER 5 DAYS, FINAL REPORT [facility] AntonioBlood Nmycivs7264-93-02 16:30:00* Test Item Value Reference Range Interpretation Comments Blood Culture (test code = 15247267) NO GROWTH AFTER 5 DAYS, FINAL REPORT [facility] AntonioFluoroscopic procedure less than one hour amzyoiyv1493-54-48 03:00:00* Test Item Value Reference Range Interpretation Comments [...] 4Negative Control P assedPositive Control PassedTesting performed by:[id number] [place], [place] [phone]: Alex Billy [facility] CenterCT ABDOMEN/PELVIS VL5118-33-27 09:25:00 [place] [address] Patient Name: JOSHUA WHEELER MR #: [id number] : 1960 Age/Sex: 58/M Req #: [id number] Adm Physician: BRETT CAZARES MD Ordered by: REGGIE VAIL MD Report #: [id number] Location: MED/SURG2 Room/Bed: [facility] Procedure: [id number] CT/CT ABDOMEN/PELVIS WO Exam Date: 05/11/19 Exam [...] on 05/11/19929 COPY TO: REGGIE VAIL MD Serum acvv-1-kdiqaqekjbnju measurement (mass/volume)2019-05-10 11:15:00* Test Item Value Reference Range Interpretation Comments Qrrj-8-Jqkjuxkfukvfc (test code = 1952-1) 26.8 0.6-2.4 Siemens Immulite 2000 Immunochemiluminometric assay (ICMA)Values obtained with d ifferent assay methods or kits cannotbe used interchangeably. Results cannot be interpreted asabsolute evidence of the presence or absence of malignantdisease.* *Results verified by repeat testingPerformed at: - [facility] [id number] Director: Johanna Hines MD, Phone: [phone]'s Hospital of San AntonioFolate2020-01-11 11:02:00* Test Item Value Reference Range Interpretation Comments Folate (test code = 2284-8) 16.4 >3.0 A serum folate concentration of less than 3.1 ng/mL isconsidered to represent cl inical deficiency.Performed at: - [facility] [id number] Director: Alec aJvier MD, Phone: [phone]'s Hospital of San AntonioFolate2020-01-11 11:02:00* Test Item Value Reference Range Interpretation Comments Folate (test code = 2284-8) 16.4 >3.0 A serum folate concentration of less than 3.1 ng/mL isconsidered to represent cl inical deficiency.Performed at: [address] [id number] Director: Alec Javier MD, Phone: [phone]'s Hospital of San AntonioFolate2020-01-11 11:02:00* Test Item Value Reference Range Interpretation Comments Folate (test code = 2284-8) 16.4 >3.0 A serum folate concentration of less than 3.1 ng/mL isconsidered to represent cl inical deficiency.Performed at: [address] [id number] Director: Alec Javier MD, Phone: [phone]'s Hospital of San AntonioFolate2020-01-11 11:02:00* Test Item Value Reference Range Interpretation Comments Folate (test code = 2284-8) 16.4 >3.0 A serum folate concentration of less than 3.1 ng/mL isconsidered to represent cl inical deficiency.Performed at: [address] [id number] Director: Alec Javier MD, Phone: [phone]'s Hospital of San AntonioIR FQZQLZE8517-67-86 15:52:00 [place] [address] Patient Name: JOSHUA WHEELER MR #: [id number] : 1960 Age/Sex: 58/M Req #: [id number] Adm Physician: BRETT CAZARES MD Ordered by: NIURKA FRIEND MD Report #: [id number] Location: MED/SURG2 Room/Bed: [facility] Procedure: [id number] DX/IR CONSULT Exam Date: Exam Time: REPORT [...] 05/09/191553 COPY TO: NIURKA FRIEND MD THORACENTESIS/US LBCRNO2181-83-55 15:52:00 [place] [address] Patient Name: JOSHUA WHEELER MR #: [id number] : 1960 Age/Sex: 58/M Req #: [id number] Adm Physician: BRETT CAZARES MD Ordered by: NIURKA FRIEND MD Report #: [id number] Location: [facility] Room/Bed: [facility] Procedure: [id number] US/THORACENTESIS/US GUIDED Exam Date: 05/09/19 Exam Time: [...] loss (mL): Less than 10 Standardized report: SIR_Thoracbi tesaisha_v3 Attestation Signer name: Kevin Banda MD I attest that I was pr esent for the entire procedure. I reviewed the stored images and agree with e report as written. Signed by: Kevin Banda MD on 05/09/2019 3:54 PM Dictated By: KEVIN BANDA MD 9726 COPY TO: RUPALI FRIEND MD Body Fluid Lactate Mbsznpgvstpyj9309-54-01 15:04:00* Test Item Value Reference Range Interpretation Comments Body Fluid Lactate Dehydrogenase (test code = 030393306) 234 No reference range has been established for this specimen type.[facility] AntonioBody Fluid Lactate Kmbhkhkplzsdg6490-24-27 15:04:00* Test Item Value Reference Range Interpretation Comments Body Fluid Lactate Dehydrogenase (test code = 221430300) 234 No reference range has been established for this specimen type.[facility] AntonioBody Fluid Lactate Prjakrjuthums9539-42-76 15:04:00* Test Item Value Reference Range Interpretation Comments Body Fluid Lactate Dehydrogenase (test code = 849750494) 234 No reference range has been established for this specimen type.[facility] AntonioBody Fluid Lactate Jcvmqgzisqbrw3948-33-05 15:04:00* Test Item Value Reference Range Interpretation Comments Body Fluid Lactate Dehydrogenase (test code = 850816616) 234 No reference range has been established for this specimen type.[facility] AntonioCHEST SINGLE (NOT PORTABLE)2019-05-09 13:27:00 [facility] [address] [place] [address] Patient Name: JOSHUA WHEELER MR #: [id number] : 1960 Age/Sex: 58/M Req #: [id number] Adm Physician: BRETT CAZARES MD Ordered by: BRETT CAZARES MD Report #: [id number] Location: MED/SURG2 Room/Bed: [facility] Procedure: [id number] DX/CHEST SINGLE (NOT PORTABLE) Exam Date: Exam [...] PM Dict ated By: KEVIN BANDA MD 28 Transcribed By: LOREE on 05/09/191328 COPY TO: BRETT CAZARES MD Body fluid lactate dehydrogenase measurement (enzymatic activity/volume) 2019-05-09 12:14:00* Test Item Value Reference Range Interpretation Comments Body Fluid Lactate Dehydrogenase (test code = 574936403) 234 No reference range has been established for this specimen type.[facility] San AntonioCreatine Kinase PE3225-91-85 16:36:00* Test Item Value Reference Range Interpretation Comments Creatine Kinase MB (test code = 51050-9) 0.30 0-5.0 [facility] AntonioTroponin K0591-64-64 16:36:00* Test Item Value Reference Range Interpretation Comments Troponin I (test code = KMM4347) 0.025 0-0.300 [facility] AntonioCreatine Shuypv6880-21-65 16:25:00* Test Item Value Reference Range Interpretation Comments Creatine Kinase (test code = 2157-6) 39 30-200 [facility] AntonioVitamin B12 Rrqrm1510-64-74 08:15:00* Test Item Value Reference Range Interpretation Comments Vitamin B12 Level (test code = 23286-4) 326 213-816 [facility] AntonioVitamin B12 Trrdf9931-52-51 08:15:00* Test Item Value Reference Range Interpretation Comments Vitamin B12 Level (test code = 75330-9) 326 213-816 [facility] AntonioVitamin B12 Hkpcu4107-99-68 08:15:00* Test Item Value Reference Range Interpretation Comments Vitamin B12 Level (test code = 33739-9) 326 213-816 [facility] AntonioVitamin B12 Dwmzh1694-35-65 08:15:00* Test Item Value Reference Range Interpretation Comments Vitamin B12 Level (test code = 21193-2) 326 213-816 [facility] AntonioFerritin2020-01-09 07:31:00* Test Item Value Reference Range Interpretation Comments Ferritin (test code = 2276-4) > 2000.00 21.81-274.66 H [facility] AntonioFerritin2020-01-09 07:31:00* Test Item Value Reference Range Interpretation Comments Ferritin (test code = 2276-4) > 2000.00 21.81-274.66 H [facility] AntonioFerritin2020-01-09 07:31:00* Test Item Value Reference Range Interpretation Comments Ferritin (test code = 2276-4) > 2000.00 21.81-274.66 H [facility] AntonioFerritin2020-01-09 07:31:00* Test Item Value Reference Range Interpretation Comments Ferritin (test code = 2276-4) > 2000.00 21.81-274.66 H [facility] AntonioTriglycerides Gzfhb2193-20-69 06:11:00* Test Item Value Reference Range Interpretation Comments Triglycerides Level (test code = 2571-8) 95 0-149 [facility] AntonioCholesterol Szqny2366-72-16 06:11:00* Test Item Value Reference Range Interpretation Comments Cholesterol Level (test code = 2093-3) 127 0-199 Less than 200 mg/dL Low Ahcw028 - 239 mg/dL Borderline Crtw174 m g/dl and greater High Risk [facility] AntonioLDL Alrgjjlddap1391-35-75 06:11:00* Test Item Value Reference Range Interpretation Comments LDL Cholesterol (test code = 2089-1) 82 60-130 [facility] AntonioHDL Tsyngtqmmoj6983-30-22 06:11:00* Test Item Value Reference Range Interpretation Comments HDL Cholesterol (test code = 2085-9) 26 40-60 L [facility] AntonioCholesterol/HDL Iwbsn1515-62-37 06:11:00 * Test Item Value Reference Range Interpretation Comments Cholesterol/HDL Ratio (test code = 9830-1) 4.9 3.9-4.7 H [facility] AntonioTriglycerides Rhsff2917-31-10 06:11:00* Test Item Value Reference Range Interpretation Comments Triglycerides Level (test code = 2571-8) 95 0-149 [facility] AntonioCholesterol Dcltp5249-86-41 06:11:00* Test Item Value Reference Range Interpretation Comments Cholesterol Level (test code = 2093-3) 127 0-199 Less than 200 mg/dL Low Uaty987 - 239 mg/dL Borderline Ggkz659 m g/dl and greater High Risk [facility] San AntonioLDL Dsridcgcpok2363-59-44 06:11:00* Test Item Value Reference Range Interpretation Comments LDL Cholesterol (test code = 2089-1) 82 60-130 [facility] Fcwswvasbei8642-40-93 06:11:00* Test Item Value Reference Range Interpretation Comments HDL Cholesterol (test code = 2085-9) 26 40-60 L [facility] AntonioCholesterol/HDL Fthag6796-24-82 06:11:00 * Test Item Value Reference Range Interpretation Comments Cholesterol/HDL Ratio (test code = 9830-1) 4.9 3.9-4.7 H [facility] AntonioTriglycerides Sicvi3210-60-01 06:11:00* Test Item Value Reference Range Interpretation Comments Triglycerides Level (test code = 2571-8) 95 0-149 [facility] AntonioCholesterol Pzogv0873-65-46 06:11:00* Test Item Value Reference Range Interpretation Comments Cholesterol Level (test code = 2093-3) 127 0-199 Less than 200 mg/dL Low Pymj214 - 239 mg/dL Borderline Ymxo253 m g/dl and greater High Risk [facility] AntonioLDL Ipbncgdqmna2490-89-83 06:11:00* Test Item Value Reference Range Interpretation Comments LDL Cholesterol (test code = 2089-1) 82 60-130 [facility] Jogrebalryn1093-47-58 06:11:00* Test Item Value Reference Range Interpretation Comments HDL Cholesterol (test code = 2085-9) 26 40-60 L [facility] AntonioCholesterol/HDL Avake6147-34-31 06:11:00 * Test Item Value Reference Range Interpretation Comments Cholesterol/HDL Ratio (test code = 9830-1) 4.9 3.9-4.7 H [facility] AntonioTriglycerides Tflkp5206-51-67 06:11:00* Test Item Value Reference Range Interpretation Comments Triglycerides Level (test code = 2571-8) 95 0-149 [facility] AntonioCholesterol Majas2606-72-55 06:11:00* Test Item Value Reference Range Interpretation Comments Cholesterol Level (test code = 2093-3) 127 0-199 Less than 200 mg/dL Low Xrwx022 - 239 mg/dL Borderline Vxap552 m g/dl and greater High Risk [facility] San AntonioLDL Huhgnrnxclr3909-75-22 06:11:00* Test Item Value Reference Range Interpretation Comments LDL Cholesterol (test code = 2089-1) 82 60-130 [facility] AntonioHDL Kyzflpdijlb4407-71-00 06:11:00* Test Item Value Reference Range Interpretation Comments HDL Cholesterol (test code = 2085-9) 26 40-60 L [facility] AntonioCholesterol/HDL Pelrk8938-24-88 06:11:00 * Test Item Value Reference Range Interpretation Comments Cholesterol/HDL Ratio (test code = 9830-1) 4.9 3.9-4.7 [facility]ererum or plasma ferritin measurement (mass/volume)2019-05-08 04:05:00* Test Item Value Reference Range Interpretation Comments Ferritin (test code = 2276-4) > 2000.00 21.81-274.66 [facility] triglyceride measurement (mass/volume)2019-05-08 04:05:00* Test Item Value Reference Range Interpretation Comments Triglycerides Level (test code = 2571-8) 95 0-149 [facility] cholesterol measurement (mass/volume)2019-05-08 04:05:00* Test Item Value Reference Range Interpretation Comments Cholesterol Level (test code = 2093-3) 127 0-199 Less than 200 mg/dL Low Bvyk553 - 239 mg/dL Borderline Akec018 m g/dl and greater High Risk [facility] cholesterol in LDL measurement (mass/volume) 2019-05-08 04:05:00* Test Item Value Reference Range Interpretation Comments LDL Cholesterol (test code = 2089-1) 82 60-130 [facility] cholesterol in HDL measurement (mass/volume)2019-05-08 04:05:00* Test Item Value Reference Range Interpretation Comments HDL Cholesterol (test code = 2085-9) 26 40-60 [facility] plasma total cholesterol/cholesterol in HDL mass ekzez6789-59-88 04:05:00* Test Item Value Reference Range Interpretation Comments Cholesterol/HDL Ratio (test code = 9830-1) 4.9 3.9-4.7 [facility] Antonio[facility] cobalamin (vitamin B12) measurement (mass/volume)2019-05-08 04:05:00* Test Item Value Reference Range Interpretation Comments Vitamin B12 Level (test code = 03323-2) 326 213817 [facility] folate measurement (mass/volume)2019-05-08 04:05:00* Test Item Value Reference Range Interpretation Comments Folate (test code = 2284-8) 16.4 >3.0 A serum folate concentration of less than 3.1 ng/mL isconsidered to represent cl inical deficiency.Performed at: [facility] Lab[address] [id number] Director: Alec Javier MD, Phone: [phone]'s Hospital of San AntonioCHES 2 IXKTB5806-22-79 17:40:00 [place] [address] Patient Name: JOSHUA WHEELER MR #: [id number] : 1960 Age/Sex: 58/M Req #: [id number] Adm Physician: Ordered by: NIURKA FRIEND MD Report #: [id number] Location: Room/Bed: Procedure: [id number] D X/CHEST 2 VIEWS Exam Date: 05/07/19 [...] on 05/07/191741 COPY TO: NIURKA FRIEND MD Influenza Virus Types A,B Antigen 2019-05-07 17:14:00* Test Item Value Reference Range Interpretation Comments Influenza Virus Types A,B Antigen (test code = 50144-9) NEGATIVE NEGATIVE [facility] Types A,B Antigen 2019-05-07 17:14:00* Test Item Value Reference Range Interpretation Comments Influenza Virus Types A,B Antigen (test code = 22252-6) NEGATIVE NEGATIVE [facility] HospitalCHEST SINGLE (NOT PORTABLE)2019-03-24 18:43:00 [place] [address] Patient Name: JOSHUA WHEELER MR #: [id number] : 1960 Age/Sex: 58/M Req #: [id number] Adm Physician: Ordered by: HUNTER HEARD MD Report #: [id number] Location: ER Room/Bed: Procedure: [id number] DX/CHEST SINGLE (NOT PORTABLE) Exam Date: 03/24/19 Exam Time: 1756 REPORT STATUS: Sign ed EXAMINATION: CHEST SINGLE (NOT PORTABLE) INDICATION: E RMD ORDER [id number] 1757 Y COMPARISON: Chest radiograph 2018 FINDINGS: [...] on 03/24/191844 COPY TO: HUNTER HEARD MD Prothrombin Sanx6585-09-25 18:20:00* Test Item Value Reference Range Interpretation Comments Prothrombin Time (test code = 5902-2) 12.9 11.9-14.5 [facility] AntonioProthromb Time International Ratio 2019-03-24 18:20:00* Test Item Value Reference Range Interpretation Comments Prothromb Time International Ratio (test code = 6301-6) 0.92 Oral Anticoagulant Therapy INR Values:1. Low Intensity Therapy 1.5 - 2.02 . Moderate Intensity Therapy 2.0 - 3.03. High Intensity Therapy(1) 2.5 - 3. 54. High Intensity Therapy(2) 3.0 - 4.05. Panic Value INR > 5.0 [facility] Centerodium Qlpev4346-40-17 18:19:00* Test Item Value Reference Range Interpretation Comments Sodium Level (test code = 2951-2) 138 136-145 [facility] AntonioPotassium Qtrow3480-69-22 18:19:00* Test Item Value Reference Range Interpretation Comments Potassium Level (test code = 2823-3) 3.3 3.5-5.1 L [facility] AntonioChloride Nmxks8017-20-13 18:19:00* Test Item Value Reference Range Interpretation Comments Chloride Level (test code = 2075-0) 97 98-107 L [facility] AntonioCarbon Dioxide Prhuk2937-72-18 18:19:00* Test Item Value Reference Range Interpretation Comments Carbon Dioxide Level (test code = 2028-9) 30 22-29 H [facility] AntonioAnion Hxp5530-11-11 18:19:00* Test Item Value Reference Range Interpretation Comments Anion Gap (test code = 59212-2) 14.3 8-16 [facility] AntonioBlood Urea Yqdcrotz5643-74-96 18:19:00* Test Item Value Reference Range Interpretation Comments Blood Urea Nitrogen (test code = 3094-0) 14 7-26 [facility] AntonioCreatinine2019-11-25 18:19:00* Test Item Value Reference Range Interpretation Comments Creatinine (test code = 2160-0) 3.34 0.72-1.25 H [facility] AntonioBUN/Creatinine Otfpz7610-13-91 18:19:00* Test Item Value Reference Range Interpretation Comments BUN/Creatinine Ratio (test code = 3097-3) 4 6-25 L [facility] San AntonioEstimat Glomerular Filtration Rate 2019-03-24 18:19:00* Test Item Value Reference Range Interpretation Comments Estimat Glomerular Filtration Rate (test code = 283680992) 19 >60 L Ranges were taken from the National Kidney Disease Education Program and the Pending sale to [facility] literature.Reference ranges:60 or greater: Eyewlr39-91 ( for 3 consecutive months): Chronic kidney disease 15 or less: Kidney failureChildren's Hospital of San AntonioGlucose Ggosc0174-22-19 18:19:00* Test Item Value Reference Range Interpretation Comments Glucose Level (test code = IUI5881) 107 74-118 [facility] AntonioCalcium Pbius0420-52-51 18:19:00* Test Item Value Reference Range Interpretation Comments Calcium Level (test code = 52744-5) 9.1 8.4-10.2 [facility] AntonioTotal Suqetbytu0402-30-66 18:19:00* Test Item Value Reference Range Interpretation Comments Total Bilirubin (test code = 1975-2) 0.8 0.2-1.2 [facility] AntonioAspartate Amino Transf (AST/SGOT) 2019-03-24 18:19:00* Test Item Value Reference Range Interpretation Comments Aspartate Amino Transf (AST/SGOT) (test code = Aspartate Amino Transf (AST/SGOT)) 14 5-34 [facility] AntonioAlanine Aminotransferase (ALT/SGPT) 2019-03-24 18:19:00* Test Item Value Reference Range Interpretation Comments Alanine Aminotransferase (ALT/SGPT) (test code = 1742-6) 10 0-55 [facility] AntonioTotal Nffwgoi5550-38-36 18:19:00* Test Item Value Reference Range Interpretation Comments Total Protein (test code = 2885-2) 7.9 6.5-8.1 [facility] AntonioAlbumin2019-11-25 18:19:00* Test Item Value Reference Range Interpretation Comments Albumin (test code = 1751-7) 3.0 3.5-5.0 L [facility] AntonioGlobulin2019-11-25 18:19:00* Test Item Value Reference Range Interpretation Comments Globulin (test code = 53067-2) 4.9 2.3-3.5 H [facility] AntonioAlbumin/Globulin Ynmyz4104-99-57 18:19:00 * Test Item Value Reference Range Interpretation Comments Albumin/Globulin Ratio (test code = 1759-0) 0.6 0.8-2.0 L [facility] AntonioAlkaline Gvnktiieqqs1818-44-22 18:19:00* Test Item Value Reference Range Interpretation Comments Alkaline Phosphatase (test code = 6768-6) 84 40-150 [facility] AntonioB-Type Natriuretic Vbgdzaj0119-04-11 18:19:00* Test Item Value Reference Range Interpretation Comments B-Type Natriuretic Peptide (test code = 58148-8) 2894.2 0-100 H [facility] AntonioCreatine Gryrbh7295-07-09 18:19:00* Test Item Value Reference Range Interpretation Comments Creatine Kinase (test code = 2157-6) 53 30-200 [facility] AntonioCreatine Kinase BM4941-32-02 18:19:00* Test Item Value Reference Range Interpretation Comments Creatine Kinase MB (test code = 77618-1) 1.10 0-5.0 [facility] AntonioTroponin R3674-46-38 18:19:00* Test Item Value Reference Range Interpretation Comments Troponin I (test code = YHM3307) 0.077 0-0.300 [facility] AntonioB-Type Natriuretic Qaiyppk4421-90-07 18:19:00* Test Item Value Reference Range Interpretation Comments B-Type Natriuretic Peptide (test code = 70362-6) 2894.2 0-100 H [facility] AntonioB-Type Natriuretic Nuoqdhm3291-82-70 18:19:00* Test Item Value Reference Range Interpretation Comments B-Type Natriuretic Peptide (test code = 50350-5) 2894.2 0-100 H [facility] AntonioWhite Blood Ajhfm3353-46-49 17:54:00* Test Item Value Reference Range Interpretation Comments White Blood Count (test code = 6690-2) 5.05 4.8-10.8 [facility] AntonioRed Blood Nbdsj8627-51-07 17:54:00* Test Item Value Reference Range Interpretation Comments Red Blood Count (test code = 789-8) 3.30 4.3-5.7 L [facility] AntonioHemoglobin2019-11-25 17:54:00* Test Item Value Reference Range Interpretation Comments Hemoglobin (test code = 68181-6) 9.7 14.0-18.0 L [facility] AntonioHematocrit2019-11-25 17:54:00* Test Item Value Reference Range Interpretation Comments Hematocrit (test code = 4544-3) 29.4 38.2-49.6 L [facility] AntonioMean Corpuscular Bcyfax9985-51-27 17:54:00* Test Item Value Reference Range Interpretation Comments Mean Corpuscular Volume (test code = 787-2) 89.1 81-99 [facility] AntonioMean Corpuscular Nwzduffwem9387-28-19 17:54:00* Test Item Value Reference Range Interpretation Comments Mean Corpuscular Hemoglobin (test code = 785-6) 29.4 28-32 [facility] AntonioMean Corpuscular Hemoglobin Concent 2019-03-24 17:54:00* Test Item Value Reference Range Interpretation Comments Mean Corpuscular Hemoglobin Concent (test code = 786-4) 33.0 31-35 [facility] AntonioRed Cell Distribution Efixd5523-54-03 17:54:00* Test Item Value Reference Range Interpretation Comments Red Cell Distribution Width (test code = 95865-8) 13.4 11.7 -14.4 [facility] AntonioPlatelet Xkkcr9977-78-13 17:54:00* Test Item Value Reference Range Interpretation Comments Platelet Count (test code = 777-3) 241 140-360 [facility] AntonioNeutrophils (%) (Auto)2019-03-24 17:54:00 * Test Item Value Reference Range Interpretation Comments Neutrophils (%) (Auto) (test code = 27816-0) 61.1 38.7-80.0 [facility] AntonioLymphocytes (%) (Auto)2019-03-24 17:54:00 * Test Item Value Reference Range Interpretation Comments Lymphocytes (%) (Auto) (test code = 736-9) 20.4 18.0-39.1 [facility] AntonioMonocytes (%) (Auto)2019-03-24 17:54:00* Test Item Value Reference Range Interpretation Comments Monocytes (%) (Auto) (test code = 5905-5) 13.3 4.4-11.3 H [facility] AntonioEosinophils (%) (Auto)2019-03-24 17:54:00 * Test Item Value Reference Range Interpretation Comments Eosinophils (%) (Auto) (test code = 713-8) 4.0 0.0-6.0 [facility] AntonioBasophils (%) (Auto)2019-03-24 17:54:00* Test Item Value Reference Range Interpretation Comments Basophils (%) (Auto) (test code = 706-2) 1.0 0.0-1.0 [facility] AntonioIM GRANULOCYTES %2019-03-24 17:54:00* Test Item Value Reference Range Interpretation Comments IM GRANULOCYTES % (test code = IM GRANULOCYTES %) 0.2 0.0- 1.0 [facility] AntonioNeutrophils # (Auto)2019-03-24 17:54:00* Test Item Value Reference Range Interpretation Comments Neutrophils # (Auto) (test code = 751-8) 3.1 2.1-6.9 [facility] AntonioLymphocytes # (Auto)2019-03-24 17:54:00* Test Item Value Reference Range Interpretation Comments Lymphocytes # (Auto) (test code = 88236-7) 1.0 1.0-3.2 [facility] AntonioMonocytes # (Auto)2019-03-24 17:54:00* Test Item Value Reference Range Interpretation Comments Monocytes # (Auto) (test code = 742-7) 0.7 0.2-0.8 [facility] AntonioEosinophils # (Auto)2019-03-24 17:54:00* Test Item Value Reference Range Interpretation Comments Eosinophils # (Auto) (test code = 711-2) 0.2 0.0-0.4 [facility] AntonioBasophils # (Auto)2019-03-24 17:54:00* Test Item Value Reference Range Interpretation Comments Basophils # (Auto) (test code = 704-7) 0.1 0.0-0.1 [facility] AntonioAbsolute Immature Granulocyte (auto 2019-03-24 17:54:00* Test Item Value Reference Range Interpretation Comments Absolute Immature Granulocyte (auto (dany t code = Absolute Immature Granulocyte (auto) 0.01 0-0.1 [facility] AntonioU/S, ABDOMINAL, OGFOHCFJ9554-04-98 13:29:00PCP- Dr. Kiran Garduno [address] [place] [address] Reason for Exam:->Kidney transplant evaluation; comment on number [...] echogenicity with smooth contour. No focal lesions. BILIARY:Gallbladder: Shadowing stone in the gallbladder. No gallbladder wall thickening, pericholecystic fluid, or distention. Negative sonographic Ventura sign.Common bile duct measures 0.3 cm, within normal [...] OTHER FINDINGS: Right pleural effusion. IMPRESSION:Mildly echogenic kidneys, suggestive of medical renal disease. No renal mass or cyst. Cholelithiasis. Signed: Fausto Eddy MDReport Verified Date/Time: 03/06/2019 13:29:38 Reading Location: [address] Radiology Reading Room 0777-80-73 09:13:00* Test Item Value Reference Range Interpretation Comments PROSTATE SPECIFIC ANTIGEN (BEAKER) (test code = 844) 0.6 ng/mL 0 .0-4.0 LIPID LHNOQ1094-22-55 08:19:00* Test Item Value Reference Range Interpretation [...] 130-159 High 160-189 Very High >=190 PLEURAL FDHKO6242-78-10 15:37:00 RUN DATE: 01/23/19 [facility] PAGE 1 RUN TIME: 1537 Specimen Inqui ry RUN USER: INTERFACE PATIENT: JOSHUA CACERES ACCT #: [id number] LOC: [place] Alegre #: [id number] AGE/SX: 58/M ROOM: RE01/22/19REG DR: Vic Rey MD : 58 BED: DIS: [place] [facility] [place]: SPEC #: [id number] RECD: 01/22/19 STATUS: SHIRA RE #: [id number] MARY: 01/22/19 DR: Cheko Joseph MD ENTERED: 01/22/19 SP TYPE: PLEURAL FL OTHR DR: Escobar Mitchell MD ORDERED: GROSS COPIES TO: Chapito Mitchell MD [address] [facility] [address] [place], [place] [id number] Cheko Joseph MD [address] [place] [address] PROCEDURES: GROSS (01/23/19-144 7) TISSUES: PLEURAL FLUID, NOS - 32 ML YELLOW CLINICAL HISTORY COLLECTION DATE: 01/22/2019 THROCENTESIS COMMENT Two con centrated smears, a cytospin and cell block are prepared from the fluid. FINAL DIAGNOSIS Pleural fluid, thoracentesis: NEGATIVE FOR MALIGNAN CY MACROPHAGES, MIXED INFLAMMATORY CELLS AND FEW MESOTHELIAL CE LLS IN BACKGROUND OF BLOOD RRB/keerthi D 17381, 08037 CONTINUED ON NEXT PAGE RUN DATE: 01/23/19 [facility] PAGE 2 RUN TIME: 1537 Specimen Inquiry RUN USER: I NTERFACE S PEC #: [id number] PATIENT: JOSHUA CACERES #[id number] (Continued) MACROSCOPIC The specimen is received fresh and labeled with the patient's name and consists of 32 mL of yellow fluid to be processed for cytologic evaluation. GROSS PERFORMED AT [facility] [address] [facility] [place] [address] [phone] MICROSCOPIC All of the stains, incl uding any controls performed, stain appropriately. MICROSCOPIC PERFORMED A [facility] [address] [place] [address] [phone] PERFORMING SITE Diagnosis perfo rmed at: [facility] [place], [place] [place] [address] [phone] Signed SIGNATURE ON FILE Jered Muro MD 01/23/19 1537 END OF REPORT - XR CHEST 2 [id number] 12:49:00 FAX: Kiran Matute [phone] [place]: St: REG FAX: Cheko Jacobs MD [phone] Name: JOSHUA CACERES [facility] : 1960 Age/S: 58/M [address] [facility] Unit #: [id number] Loc: [place] [address] Phys: Cheko Jospeh MD Acct: [id number] Dis Date: Status: REG CLI PHONE #: [phone] Exam Date: 01/23/2019 1200 FAX #: [phone] Reason: R PTX EXAMS: CPT CODE: [id number] XR CHEST 2 V 91029 REASON FOR EXAM: R PTX Exam Order Date: 11:43 AM Ordering MCassei: Cheko Joseph MD PROCED URE: - XR [...] lung. The patient is asymptomatic. A follow-up [facility] t x-ray is scheduled for Sunday. at 1249 Reported and signed by : Cheko Joseph M.D. CC: Kiran Lizama MD; Cheko Joseph MD Technologist: ARMEN PORTILLO RT (R) Trnscrd Date/Time/By: 01/23/2019 (9936) : By: FlakitaL Orig Print D/T: S: 01/23/2019 (6822) PAGE 1 Signed Report BODY FLUID CELL CT/VVHI8625-77-11 18:12:00* Test Item Value Reference Range Interpretation [...] code = REVIEW) GALDINO PÉREZ PATHOLOGIST FLUID BHFAVIH5773-47-24 18:12:00* Test Item Value Reference Range Interpretation Comments FLUID GLUCOSE (test code = GLUFL) 92 mg/dL FLUID JYBHUVD2742-64-01 18:12:00* Test Item Value Reference Range Interpretation Comments FLUID PROTEIN (test code = PROTFL) 4.9 gram/dL BODY FLUID CELL CT/[id number] 14:22:00* Test Item Value Reference Range Interpretation [...] BY (test code = REVIEW) PATHOLOGIST FLUID WBYICIC5615-69-06 14:22:00* Test Item Value Reference Range Interpretation Comments FLUID GLUCOSE (test code = GLUFL) 92 mg/dL FLUID KQQYJQG3281-26-63 14:22:00* Test Item Value Reference Range Interpretation Comments FLUID PROTEIN (test code = PROTFL) 4.9 gram/dL BODY FLUID CELL CT/[id number] 14:22:00* Test Item Value Reference Range Interpretation [...] BY (test code = REVIEW) PATHOLOGIST FLUID CBNBWES5948-16-63 14:22:00* Test Item Value Reference Range Interpretation Comments FLUID GLUCOSE (test code = GLUFL) 92 mg/dL FLUID XWKPWGF1166-69-78 14:22:00* Test Item Value Reference Range Interpretation Comments FLUID PROTEIN (test code = PROTFL) 4.9 gram/dL - SP THORACENTESIS W/LIRJ9683-94-48 14:11:00 Name: NICKIJOSHUA [facility] : 1960 Age/S: 58 / M [address] [facility] Unit #: [id number] Loc: [place] [address] Phys: Vic Rey MD Acct: [id number] Dis Date: Status: [facility] PHONE #: [phone] Exam Date: 01/22/2019 1030 FAX #: [phone] Reason: PLEURAL EFUSION EXAMS: CPT CODE: [id number] SP THORACENTESIS W/IMAG 68936 Fluoro Time: DAP (Gy m2): Air Kerma (mGy): REASON FOR EXAM: PLEURAL EFUSION Exam order date: 01/22/2019 10:15 AM PROCEDURE: Ultrasound guided right thoracentesis Attending M.D.: Vic Rey MD CPT code: 53213, 84705 FINDINGS: Prior to the procedure, informed consent [...] : Vic Rey MD Technologist: Sarah Nelson [facility] Date/Time: 01/22/2019 (141 1) [email or web address] Orig Print D/T: S: 01/22/2019 (8182) PAG E 1 Signed Report - XR CHEST 1 [id number] 13:45:00 FAX: Vic Langford [phone] [place]: St: REG Name: JOSHUA VENEGAS [facility] : [birth year] Age/S: 58/M [address] [facility] Unit #: [id number] Loc: [place] [address] Phys: Cheko Joseph MD Acct: [id number] Dis Date: Status: [place] [facility] [place]ONE #: [phone] Exam Date: 01/22/2019 1206 FAX #: [phone] Reason: POST THORACENTESIS EXAMS: CPT CODE: [id number] XR CHEST 1 V 62161 REASON FOR EXAM: POST THOR ACENTESIS, known right pneumothorax. Patient is asymptomatic. EXAM ORDER DATE: 01/22/2019 12:00 PM Ordering Rylie: Cheko Joseph MD PROCEDURE: - XR CHEST 1 V COMPARISON: 01/22/2019 at 10:43 AM FINDINGS: Portable AP frontal view of the chest obtained at 12:07 PM shows clear lungs without evidence of consolidation. There is no evidence of effusion. The heart size is minimally enlarged. Pulmonary vasculatures are unremarkable. IMPRESSION: Slight interval improvement in the right pneumothorax now measuring approximately 30%. at 3552 Reported and signed by: Cheko Joseph M.D. CC: Vic Rey MD Technologist: Carmen fernando RT(R) Trnscrd Date/Time/By: 01/22/2019 ( 5472) : By: DavidVTL Orig Print D/T: S: 01/22/2019 (6834) PAGE 1 Signed Report BODY FLUID CELL CT/[id number] 11:42:00* Test Item Value Reference Range Interpretation [...] BY (test code = REVIEW) PATHOLOGIST FLUID [id number] 11:42:00* Test Item Value Reference Range Interpretation Comments FLUID GLUCOSE (test code = GLUFL) 92 mg/dL FLUID [id number] 11:42:00* Test Item Value Reference Range Interpretation Comments FLUID PROTEIN (test code = PROTFL) 4.9 gram/dL BODY FLUID CELL CT/[id number] 11:33:00* Test Item Value Reference Range Interpretation [...] BY (test code = REVIEW) PATHOLOGIST FLUID [id number] 11:33:00* Test Item Value Reference Range Interpretation Comments FLUID GLUCOSE (test code = GLUFL) 92 mg/dL FLUID [id number] 11:33:00* Test Item Value Reference Range Interpretation Comments FLUID PROTEIN (test code = PROTFL) gram/dL BODY FLUID CELL CT/[id number] 11:29:00* Test Item Value Reference Range Interpretation [...] BY (test code = REVIEW) PATHOLOGIST FLUID [id number] 11:29:00* Test Item Value Reference Range Interpretation Comments FLUID GLUCOSE (test code = GLUFL) 92 mg/dL FLUID [id number] 11:29:00* Test Item Value Reference Range Interpretation Comments FLUID PROTEIN (test code = PROTFL) gram/dL - XR CHEST 1 [id number] 11:09:00 FAX: Vic Langford [phone] [place]: St: REG Name: JOSHUA VENEGAS [facility] : [birth year] Age/S: 58/M [address] [facility] Unit #: [id number] Loc: [place] [address] Phys: Cheko Joseph MD Acct: [id number] Dis Date: Status: [place] [facility] [place]ONE #: [phone] Exam Date: 01/22/2019 1043 FAX #: [phone] Reason: S/P THORACENTESIS EXAMS: CPT CODE: [id number] XR CHEST 1 V 12084 REASON FOR EXAM: S/P THORA CENTESIS Exam [...] MD CC: Vic Rey MD Technologist: Lulu Edwards(Terrell) Anamaria rnscrd Date/Time/By: 01/22/2019 (1109) : By: [email or web address] Orig Print D/T: S: 01/22/2019 (1118) PAGE 1 Sign ed Report - SP FLUORO GUID CTRL ACC [id number] 09:51:00 Name: JOSHUA CACERES [facility] SP : 1960 Age[facility]S: 58 / M [address] [facility] [id number] Loc: [place] [address] Phys: Vic Rey MD Acct: [id number] Dis Date: Status: REG SDC PHONE #: [phone] Exam Date: 01/22/2019923 FAX #: [phone] Reason: / EXAMS: CPT CODE: [id number] SP FLUORO GUID CTRL ACC DEV 69329 Fluoro Time: 2 DAP (Gy m2): 0.496 Air Kerma (mGy): 1.24 REASON FOR EXAM: / Exam order date: 01/22/2019 9:15 AM PROCEDURE: Removal Of Tunneled Hemodialysis Catheter CPT code: 43034, 48624 FINDINGS: Prior to the procedure, informed consent [...] CC: Vic Rey MD Technologist: KEN NICOLAS ABALONE FISHERMAN Trnscb Date/Time: 01/22/2019 (0951) DavidVTL Orig Print D/T: S: 01/22/2019 (3084) PAGE 1 Signed Report [id number] 08:25:00* Test Item Value Reference Range Interpretation Comments GLUBED (test code = GLUBED) 81 mg/dL 74-106 N Performed by certified lithograph operator at [facility] PROTHROMBIN [id number] 08:16:00* Test Item Value Reference Range Interpretation [...] ANTICOAGULANTS UNKNOWNSPECIMEN COMMENTS: TO BRING INFORMATIONCOMMENTS TO SPOT FACER: IN DSUTHROMBOPLASTIN TIME PARTIAL 2019-01-22 08:16:00* Test Item Value Reference Range Interpretation Comments THROMBOPLASTIN TIME PARTIAL (test code = PTT) 36.0 seconds 25.0-36. 5 N IS PATIENT ON ANTICOAGULANTS? YLIST ANTICOAGULANTS UNKNOWNSPECIMEN COMMENTS: TO BRING INFORMATIONCOMMENTS TO SPOT FACER: IN DSUPLATELET [id number] 08:06:00* Test Item Value Reference Range Interpretation Comments PLATELET COUNT (test code = PLT) 133 K/mm3 150-450 L [id number] 08:02:00* Test Item Value Reference Range Interpretation Comments POTASSIUM (test code = K) 4.5 mmol/L 3.5-5.1 N URINE [id number] 09:16:00* Test Item Value Reference Range Interpretation Comments CULTURE ([employer]) (test code = 1095) 40-49,000 col/mL skin marisol [id number] 11:08:00* Test Item Value Reference Range Interpretation Comments RPR SCREEN ([employer]) (test code = 420) Nonreactive Nonreactive CYTOMEGALOVIRUS ANTIBODY, [id number] 10:37:00* Test Item Value Reference Range Interpretation Comments CYTOMEGALOVIRUS, IGG ([employer]) (test code = 3429) Positive Negat aye, Equivocal A CMV IgG Result Interpretation: </= 0.8 Al Negative 0.9-1.0 Al Equivocal > /=1.1 Al PositiveCYTOMEGALOVIRUS ANTIBODY, [id number] 10:37:00* Test Item Value Reference Range Interpretation Comments CYTOMEGALOVIRUS IGM ANTIBODY ([employer]) (test code = 3437) Neg ative Negative, Equivocal CMV IgM Result Interpretation: </= 0.8 Al Negative 0.9-1.0 Al Equivocal > /= 1.1 Al PositiveEBV ANTIBODY, [id number] 10:37:00* Test Item Value Reference Range Interpretation Comments MICHEAL SANTANA VIRAL CAPSID ANTIGEN IGG ([employer]) (test code = 3415) Positive Negative, Equivocal A Micheal Santana Viral Capsid Antigen IgG Result Interpretation: </= 0.8 Al Negative 0.9-1.0 Al Equivocal >/= 1.1 Al PositiveEBV ANTIBODY, [id number] 10:37:00* Test Item Value Reference Range Interpretation Comments MICHEAL SANTANA VIRAL CAPSID ANTIGEN IGM ([employer]) (test code = 3418) Negative Negative, Equivocal Micheal Santana Viral Capsid Antigen IgM Result Interpretation: </= 0.8 Al Negative 0.9-1.0 Al Equivocal >/= 1.1 Al PositiveVARICELLA ZOSTER ANTIBODY, [id number] 10:37:00* Test Item Value Reference Range Interpretation Comments VARICELLA ZOSTER IGG (AL) ([employer]) (test code = 3197) 4.9 VARICELLA ZOSTER RESULT INTERPRETATIONS: <=0.8 Al Nonreactive: Presumed non-immune to VZV 0.9-1.0 Al Equivocal >=1.1 Al Reactive: Presumed immune to VZVHEMOGLOBIN [id number] 15:18:00* Test Item Value Reference Range Interpretation Comments HEMOGLOBIN A1C (BEAKER) (test code = 368) 5.3 % 4.3-6.1 HEPATITIS B SURFACE [id number] 13:42:00* Test Item Value Reference Range Interpretation Comments HEPATITIS B SURFACE ANTIBODY (BEAKER) (test code = 647) < mIU/mL <8.0 HEPATITIS B SURFACE [id number] 13:31:00* Test Item Value Reference Range Interpretation Comments HEPATITIS B SURFACE ANTIGEN (2) (BEAKER) (test code = 2585) Nonreactive Nonreactive HEPATITIS B CORE ANTIBODY, [id number] 13:31:00* Test Item Value Reference Range Interpretation Comments HEPATITIS B CORE IGM ANTIBODY (BEAKER) (test code = 645) Non reactive Nonreactive HEPATITIS C [id number] 13:31:00* Test Item Value Reference Range Interpretation Comments HEPATITIS C ANTIBODY (BEAKER) (test code = 367) Nonreactive Nonrea ctive HIV-1 ANTIGEN WITH HIV-1/2 DCRCBJZC3702-12-23 13:31:00* Test Item Value Reference Range Interpretation Comments HIV-1 ANTIGEN WITH HIV 1\\T\\2 ANTIBODY (2) (BEAKER) (te st code = 2586) Nonreactive Nonreactive COMPREHENSIVE METABOLIC [id number] 13:26:00* Test Item Value Reference Range Interpretation [...] IS NOT APPLICABLE FOR DIALYSIS PATIENTS. URIC [id number] 13:19:00* Test Item Value Reference Range Interpretation Comments URIC ACID (BEAKER) (test code = 773) 4.6 mg/dL 2.6-7.2 [id number] 13:19:00* Test Item Value Reference Range Interpretation [...] 635) 263 U/L 125-2 20 H PTH, [id number] 13:14:00* Test Item Value Reference Range Interpretation Comments PARATHYROID HORMONE INTACT (BEAKER) (test code = 577) 236.2 pg/mL 8.5-72.5 H RAD, CHEST, 2 [id number] 12:50:00PCP- Dr. Kiran Garduno [address] [place] [address] Reason for Exam:->esrd; eval for [...] MDReport Verified Date/Time: 12/17/2018 12:50:06 Reading Location: [address] Radiology Reading Room W/PLT COUNT & AUTO [id number] 12:41:00* Test Item Value Reference Range Interpretation [...] (test code = 2801) 0 % 0-1 PT/[id number] 12:41:00* Test Item Value Reference Range Interpretation [...] heart valves.CBC W Auto Differential panel - Mvafy7797-94-88 13:13:00* Test Item Value Reference Range Interpretation [...] (test code = baso#) 0.03 x10*3/?L 0.01-0.08 [facility] W Auto Differential panel - Lzypv6778-60-91 13:13:00 * Test Item Value Reference Range [...] (test code = baso#) 0.03 x10*3/?L 0.01-0.08 [place] PracticeThyrotropin [Units/volume] in Serum or Xwnzpm8159-95-03 16:06:00* Test Item Value Reference Range Interpretation Comments TSH (test code = TSH) 2.759 uIU/mL 0.350-4.940 [place] PracticeThyrotropin [Units/volume] in Serum or Fjxwgd7328-48-31 16:06:00* Test Item Value Reference Range Interpretation Comments TSH (test code = TSH) 2.759 uIU/mL 0.350-4.940 [facility] Ftuwdux1269-06-97 07:46:00* Test Item Value Reference Range Interpretation Comments Bedside Glucose (test code = 20891-2) 105 70-120 Meter ID: [id number] [facility] Glucose 2018-10-03 07:46:00* Test Item Value Reference Range Interpretation Comments Bedside Glucose (test code = 74602-0) 105 70-120 Meter ID: [id number] [facility] 2018-10-02 15:58:00* Test Item Value Reference Range Interpretation Comments Blood Culture (test code = 79927887) NO GROWTH AFTER 5 DAYS, FINAL REPORT [facility] Tmpnxgx5779-21-97 15:58:00* Test Item Value Reference Range Interpretation Comments Blood Culture (test code = 69785225) NO GROWTH AFTER 5 DAYS, [facility] N[facility]r1775[facility]52 09:30:00* Test Item Value Reference Range Interpretation Comments Sodium Level (test code = 2951-2) 134 136-145 L [facility] Thggz6520-31-56 09:30:00* Test Item Value Reference Range Interpretation Comments Potassium Level (test code = 2823-3) 4.3 3.5-5.1 [facility] AntonioChloride Shbew0095-87-40 09:30:00* Test Item Value Reference Range Interpretation Comments Chloride Level (test code = 2075-0) 95 98-107 L [facility] AntonioCarbon Dioxide Wijza6178-25-35 09:30:00* Test Item Value Reference Range Interpretation Comments Carbon Dioxide Level (test code = 2028-9) 25 22-29 [facility] AntonioAnion Cjd3157-94-82 09:30:00* Test Item Value Reference Range Interpretation Comments Anion Gap (test code = 98449-8) 18.3 8-16 H [facility] AntonioBlood Urea Dapfcsew8564-38-80 09:30:00* Test Item Value Reference Range Interpretation Comments Blood Urea Nitrogen (test code = 3094-0) 71 7-26 H [facility] AntonioCreatinine2019-06-05 09:30:00* Test Item Value Reference Range Interpretation Comments Creatinine (test code = 2160-0) 9.22 0.72-1.25 H [facility] AntonioBUN/Creatinine Ennno6396-96-17 09:30:00* Test Item Value Reference Range Interpretation Comments BUN/Creatinine Ratio (test code = 3097-3) 8 6-25 [facility] AntonioEstimat Glomerular Filtration Rate 2018-10-02 09:30:00* Test Item Value Reference Range Interpretation Comments Estimat Glomerular Filtration Rate (test code = 522426873) 6 >60 L Ranges were taken from the National Kidney Disease Education Program and the Pending sale to [facility] literature.Reference ranges:60 or greater: Tqaipv43-69 ( for 3 consecutive months): Chronic kidney disease 15 or less: Kidney failureChildren's Hospital of San AntonioGlucose Risoz9697-05-71 09:30:00* Test Item Value Reference Range Interpretation Comments Glucose Level (test code = PDJ9096) 140 74-118 H [facility] AntonioCalcium Ahctx6075-44-45 09:30:00* Test Item Value Reference Range Interpretation Comments Calcium Level (test code = 96714-6) 7.9 8.4-10.2 L [facility] AntonioWhite Blood Caphj9205-34-66 08:57:00* Test Item Value Reference Range Interpretation Comments White Blood Count (test code = 6690-2) 9.03 4.8-10.8 [facility] AntonioRed Blood Camow3661-53-22 08:57:00* Test Item Value Reference Range Interpretation Comments Red Blood Count (test code = 789-8) 3.74 4.3-5.7 L [facility] AntonioHemoglobin2019-06-05 08:57:00* Test Item Value Reference Range Interpretation Comments Hemoglobin (test code = 46293-0) 11.5 14.0-18.0 L [facility] AntonioHematocrit2019-06-05 08:57:00* Test Item Value Reference Range Interpretation Comments Hematocrit (test code = 4544-3) 35.1 38.2-49.6 L [facility] AntonioMean Corpuscular Mmvbko4438-17-86 08:57:00* Test Item Value Reference Range Interpretation Comments Mean Corpuscular Volume (test code = 787-2) 93.9 81-99 [facility] AntonioMean Corpuscular Mjlirrxxzq5544-57-62 08:57:00* Test Item Value Reference Range Interpretation Comments Mean Corpuscular Hemoglobin (test code = 785-6) 30.7 28-32 [facility] AntonioMean Corpuscular Hemoglobin Concent 2018-10-02 08:57:00* Test Item Value Reference Range Interpretation Comments Mean Corpuscular Hemoglobin Concent (test code = 786-4) 32.8 31-35 [facility] AntonioRed Cell Distribution Rarxp9247-73-67 08:57:00* Test Item Value Reference Range Interpretation Comments Red Cell Distribution Width (test code = 51572-4) 14.2 11.7 -14.4 [facility] AntonioPlatelet Yccdw0495-68-75 08:57:00* Test Item Value Reference Range Interpretation Comments Platelet Count (test code = 777-3) 159 140-360 [facility] AntonioNeutrophils (%) (Auto)2018-10-02 08:57:00 * Test Item Value Reference Range Interpretation Comments Neutrophils (%) (Auto) (test code = 64878-1) 67.6 38.7-80.0 [facility] AntonioLymphocytes (%) (Auto)2018-10-02 08:57:00 * Test Item Value Reference Range Interpretation Comments Lymphocytes (%) (Auto) (test code = 736-9) 19.4 18.0-39.1 [facility] AntonioMonocytes (%) (Auto)2018-10-02 08:57:00* Test Item Value Reference Range Interpretation Comments Monocytes (%) (Auto) (test code = 5905-5) 8.9 4.4-11.3 [facility] AntonioEosinophils (%) (Auto)2018-10-02 08:57:00 * Test Item Value Reference Range Interpretation Comments Eosinophils (%) (Auto) (test code = 713-8) 2.9 0.0-6.0 [facility] AntonioBasophils (%) (Auto)2018-10-02 08:57:00* Test Item Value Reference Range Interpretation Comments Basophils (%) (Auto) (test code = 706-2) 0.6 0.0-1.0 [facility] AntonioIM GRANULOCYTES %2018-10-02 08:57:00* Test Item Value Reference Range Interpretation Comments IM GRANULOCYTES % (test code = IM GRANULOCYTES %) 0.6 0.0- 1.0 [facility] AntonioNeutrophils # (Auto)2018-10-02 08:57:00* Test Item Value Reference Range Interpretation Comments Neutrophils # (Auto) (test code = 751-8) 6.1 2.1-6.9 [facility] AntonioLymphocytes # (Auto)2018-10-02 08:57:00* Test Item Value Reference Range Interpretation Comments Lymphocytes # (Auto) (test code = 64582-6) 1.8 1.0-3.2 [facility] AntonioMonocytes # (Auto)2018-10-02 08:57:00* Test Item Value Reference Range Interpretation Comments Monocytes # (Auto) (test code = 742-7) 0.8 0.2-0.8 [facility] AntonioEosinophils # (Auto)2018-10-02 08:57:00* Test Item Value Reference Range Interpretation Comments Eosinophils # (Auto) (test code = 711-2) 0.3 0.0-0.4 [facility] AntonioBasophils # (Auto)2018-10-02 08:57:00* Test Item Value Reference Range Interpretation Comments Basophils # (Auto) (test code = 704-7) 0.1 0.0-0.1 [facility] AntonioAbsolute Immature Granulocyte (auto 2018-10-02 08:57:00* Test Item Value Reference Range Interpretation Comments Absolute Immature Granulocyte (auto (dany t code = Absolute Immature Granulocyte (auto) 0.05 0-0.1 [facility] AntonioTotal Fdshcacij8604-85-50 08:19:00* Test Item Value Reference Range Interpretation Comments Total Bilirubin (test code = 1975-2) 0.6 0.2-1.2 [facility] AntonioAspartate Amino Transf (AST/SGOT) 2018-10-01 08:19:00* Test Item Value Reference Range Interpretation Comments Aspartate Amino Transf (AST/SGOT) (test code = Aspartate Amino Transf (AST/SGOT)) 24 5-34 [facility] AntonioAlanine Aminotransferase (ALT/SGPT) 2018-10-01 08:19:00* Test Item Value Reference Range Interpretation Comments Alanine Aminotransferase (ALT/SGPT) (test code = 1742-6) 29 0-55 [facility] AntonioTotal Olvompw5813-78-78 08:19:00* Test Item Value Reference Range Interpretation Comments Total Protein (test code = 2885-2) 6.9 6.5-8.1 [facility] AntonioAlbumin2019-06-04 08:19:00* Test Item Value Reference Range Interpretation Comments Albumin (test code = 1751-7) 3.0 3.5-5.0 L [facility] AntonioGlobulin2019-06-04 08:19:00* Test Item Value Reference Range Interpretation Comments Globulin (test code = 20307-6) 3.9 2.3-3.5 H [facility] AntonioAlbumin/Globulin Hromz4055-36-71 08:19:00 * Test Item Value Reference Range Interpretation Comments Albumin/Globulin Ratio (test code = 1759-0) 0.8 0.8-2.0 [facility] AntonioAlkaline Ptvewbzktyy6369-28-56 08:19:00* Test Item Value Reference Range Interpretation Comments Alkaline Phosphatase (test code = 6768-6) 133 40-150 [facility] AntonioHepatitis B Surface Antibody, Quant 2018-10-01 06:22:00* Test Item Value Reference Range Interpretation Comments Hepatitis B Surface Antibody, Quant (test code = 5194-6) <3.1 Immunity>9.9 L Status of Immunity Anti-HBs Level Inconsistent with Immunity 0.0 - 9.9Consistent with Immunity >9.9[facility] B Core Total Vpuvvkib5032-76-14 06:22:00* Test Item Value Reference Range Interpretation Comments Hepatitis B Core Total Antibody (test code = 29079-4) Negative Negative Performed at: [address] [id number] Director: Alec Javier MD, Phone: [phone]'s Hospital of San AntonioHetustin [facility] B Surface Ebkjrue3787-89-52 06:22:00* Test Item Value Reference Range Interpretation Comments Hepatitis B Surface Antigen (test code = 5196-1) Negative Negat aye [facility] B Surface Antibody, Quant 2018-10-01 06:22:00* Test Item Value Reference Range Interpretation Comments Hepatitis B Surface Antibody, Quant (test code = 5194-6) <3.1 Immunity>9.9 L Status of Immunity Anti-HBs Level Inconsistent with Immunity 0.0 - 9.9Consistent with Immunity >9.9[facility] B Core Total Xvcwlzuf5094-77-46 06:22:00* Test Item Value Reference Range Interpretation Comments Hepatitis B Core Total Antibody (test code = 42358-3) Negative Negative Performed at: [address] [id number] Director: Alec Javier MD, Phone: [phone]'s Hospital of San AntonioHetustin rehabilitation hospital B Surface Vwlwusm1411-89-71 06:22:00* Test Item Value Reference Range Interpretation Comments Hepatitis B Surface Antigen (test code = 5196-1) Negative Negat ayeCorp[facility] RegionalHemoglobin A1c Sxpnnnw3844-23-20 17:11:00 * Test Item Value Reference Range Interpretation Comments Hemoglobin A1c Percent (test code = Hemoglobin A1c Percent) 6.0 4.0-7.0 [facility] AntonioTriglycerides Obviu6434-50-38 17:11:00* Test Item Value Reference Range Interpretation Comments Triglycerides Level (test code = 2571-8) 151 0-149 H [facility] AntonioCholesterol Kcsso8454-77-73 17:11:00* Test Item Value Reference Range Interpretation Comments Cholesterol Level (test code = 2093-3) 116 0-199 Less than 200 mg/dL Low Kose889 - 239 mg/dL Borderline Bnap032 m g/dl and greater High Risk [facility] AntonioLDL Kqjxdgerstx8099-79-47 17:11:00* Test Item Value Reference Range Interpretation Comments LDL Cholesterol (test code = 2089-1) 52 60-130 L [facility] Qnauhzfovhn7113-60-89 17:11:00* Test Item Value Reference Range Interpretation Comments HDL Cholesterol (test code = 2085-9) 34 40-60 L [facility] AntonioCholesterol/HDL Tpgwz3548-71-78 17:11:00 * Test Item Value Reference Range Interpretation Comments Cholesterol/HDL Ratio (test code = 9830-1) 3.4 3.9-4.7 L [facility] AntonioHemoglobin A1c Hyoxtjb6533-11-76 17:11:00 * Test Item Value Reference Range Interpretation Comments Hemoglobin A1c Percent (test code = Hemoglobin A1c Percent) 6.0 4.0-7.0 [facility] AntonioTriglycerides Jmycb3113-63-24 17:11:00* Test Item Value Reference Range Interpretation Comments Triglycerides Level (test code = 2571-8) 151 0-149 H [facility] AntonioCholesterol Chunc4142-98-15 17:11:00* Test Item Value Reference Range Interpretation Comments Cholesterol Level (test code = 2093-3) 116 0-199 Less than 200 mg/dL Low Digy360 - 239 mg/dL Borderline Svjk546 m g/dl and greater High Risk [facility] AntonioLDL Ltubzqkyjjl2401-13-32 17:11:00* Test Item Value Reference Range Interpretation Comments LDL Cholesterol (test code = 2089-1) 52 60-130 L [facility] Dyonygvfvmp7528-01-55 17:11:00* Test Item Value Reference Range Interpretation Comments HDL Cholesterol (test code = 2085-9) 34 40-60 L [facility] AntonioCholesterol/HDL Tduot7346-09-39 17:11:00 * Test Item Value Reference Range Interpretation Comments Cholesterol/HDL Ratio (test code = 9830-1) 3.4 3.9-4.7 L [facility] AntonioHemoglobin A1c Hjumqat5142-68-72 17:11:00 * Test Item Value Reference Range Interpretation Comments Hemoglobin A1c Percent (test code = Hemoglobin A1c Percent) 6.0 4.0-7.0 [facility] AntonioHemoglobin A1c Mpwsxxn0250-85-76 17:11:00 * Test Item Value Reference Range Interpretation Comments Hemoglobin A1c Percent (test code = Hemoglobin A1c Percent) 6.0 4.0-7.0 [facility] AntonioHemoglobin A1c Aebfpqa0230-65-04 17:11:00 * Test Item Value Reference Range Interpretation Comments Hemoglobin A1c Percent (test code = Hemoglobin A1c Percent) 6.0 4.0-7.0 [facility] AntonioCreatine Goqeom7739-16-80 08:37:00* Test Item Value Reference Range Interpretation Comments Creatine Kinase (test code = 2157-6) 51 30-200 [facility] AntonioCreatine Kinase TE3036-25-19 08:37:00* Test Item Value Reference Range Interpretation Comments Creatine Kinase MB (test code = 83220-3) 1.70 0-5.0 [facility] AntonioTroponin [id number] 08:37:00* Test Item Value Reference Range Interpretation Comments Troponin I (test code = XKL5881) 0.114 0-0.300 [facility] AntonioCHEST SINGLE (PORTABLE)2018-09-28 06:40:00 [place] [address] Patient Name: JOSHUA WHEELER MR #: [id number] : 1960 Age/Sex: 57/M Req #: [id number] Adm Physician: PETRA GRIMALDO MD Ordered by: BRIE KRAMER MANAGER SKILLED Report #: [id number] Location: MED/SURG3 Room/Bed: [facility] Procedure: [id number] D X/CHEST SINGLE (PORTABLE) Exam Date: Exam [...] LOREE on 09/28/18641 COPY TO: BRIE KRAMER N P Urine [id number] 21:04:00* Test Item Value Reference Range Interpretation Comments Urine WBC (test code = 5821-4) NONE 0-5 [facility] AntonioUrine RIS0351-17-09 21:04:00* Test Item Value Reference Range Interpretation Comments Urine RBC (test code = 03115-4) NONE 0-5 [facility] AntonioUrine Yvhnhqrf7678-64-58 21:04:00* Test Item Value Reference Range Interpretation Comments Urine Bacteria (test code = 41289-2) NONE NONE [facility] AntonioUrine Epithelial Gtyvj6518-28-01 21:04:00 * Test Item Value Reference Range Interpretation Comments Urine Epithelial Cells (test code = 10086-4) NONE NONE [facility] PNE5394-52-13 21:04:00* Test Item Value Reference Range Interpretation Comments Urine WBC (test code = 5821-4) NONE 0-5 [facility] RIO2595-80-17 21:04:00* Test Item Value Reference Range Interpretation Comments Urine RBC (test code = 31943-5) NONE 0-5 [facility] Moeklbfp4600-66-66 21:04:00* Test Item Value Reference Range Interpretation Comments Urine Bacteria (test code = 84744-9) NONE NONE [facility] Epithelial Cchlt9574-72-37 21:04:00 * Test Item Value Reference Range Interpretation Comments Urine Epithelial Cells (test code = 85651-3) NONE NONE [facility] HIG6880-19-23 21:04:00* Test Item Value Reference Range Interpretation Comments Urine WBC (test code = 5821-4) NONE 0-5 [facility] VTL1823-67-25 21:04:00* Test Item Value Reference Range Interpretation Comments Urine RBC (test code = 68534-4) NONE 0-5 [facility] Xuzascft0496-56-42 21:04:00* Test Item Value Reference Range Interpretation Comments Urine Bacteria (test code = 54451-0) NONE NONE [facility] Epithelial Ionee7769-49-23 21:04:00 * Test Item Value Reference Range Interpretation Comments Urine Epithelial Cells (test code = 94581-2) NONE NONE [facility] NYO7822-00-54 21:04:00* Test Item Value Reference Range Interpretation Comments Urine WBC (test code = 5821-4) NONE 0-5 [facility] SKQ3670-54-86 21:04:00* Test Item Value Reference Range Interpretation Comments Urine RBC (test code = 28130-6) NONE 0-5 [facility] AntonioUrine Pwcbkalx3041-38-45 21:04:00* Test Item Value Reference Range Interpretation Comments Urine Bacteria (test code = 75873-8) NONE NONE [facility] AntonioUrine Epithelial Mnwjr8177-78-79 21:04:00 * Test Item Value Reference Range Interpretation Comments Urine Epithelial Cells (test code = 59742-5) NONE NONE [facility] AntonioUrine Wxvzf1677-89-79 20:49:00* Test Item Value Reference Range Interpretation Comments Urine Color (test code = 5778-6) YELLOW YELLOW [facility] AntonioUrine Fuqkxve2447-59-26 20:49:00* Test Item Value Reference Range Interpretation Comments Urine Clarity (test code = 42904-2) CLEAR CLEAR [facility] AntonioUrine Specific Abgqsys9372-39-29 20:49:00 * Test Item Value Reference Range Interpretation Comments Urine Specific [place] (test code = 5811-5) 1.010 1.010-1.02 5 [facility] AntonioUrine tE2046-28-04 20:49:00* Test Item Value Reference Range Interpretation Comments Urine pH (test code = 06889-0) 7.5 5-7 [facility] AntonioU[facility] Leukocyte Epskzovx9964-91-51 20:49:00* Test Item Value Reference Range Interpretation Comments Urine Leukocyte Esterase (test code = 38533-2) NEGATIVE NEGATIV E [facility] AntonioUrine Eoivyoj1421-31-23 20:49:00* Test Item Value Reference Range Interpretation Comments Urine Nitrite (test code = 13314-9) NEGATIVE NEGATIVE [facility] AntonioU[facility] Zwwsbkk8245-23-20 20:49:00* Test Item Value Reference Range Interpretation Comments Urine Protein (test code = 43574-6) NEGATIVE NEGATIVE [facility] AntonioUrine Glucose (UA)2018-09-27 20:49:00* Test Item Value Reference Range Interpretation Comments Urine Glucose (UA) (test code = 73571-0) NEGATIVE NEGATIVE [facility] AntonioUrine Mptbnxa4480-00-46 20:49:00* Test Item Value Reference Range Interpretation Comments Urine Ketones (test code = 86064-1) NEGATIVE NEGATIVE [facility] AntonioU[facility] Jmdhwlnigdrz0888-49-39 20:49:00* Test Item Value Reference Range Interpretation Comments Urine Urobilinogen (test code = 30226-0) 0.2 0.2-1 [facility] AntonioU[facility] Ydgicsfet0426-98-92 20:49:00* Test Item Value Reference Range Interpretation Comments Urine Bilirubin (test code = 1977-8) NEGATIVE NEGATIVE [facility] Pocpo8918-48-13 20:49:00* Test Item Value Reference Range Interpretation Comments Urine Blood (test code = 82899-4) NEGATIVE NEGATIVE [facility] AntonioU[facility] Vnspp9002-21-86 20:49:00* Test Item Value Reference Range Interpretation Comments Urine Color (test code = 5778-6) YELLOW YELLOW [facility] AntonioU[facility] Ztvlcsu3271-13-83 20:49:00* Test Item Value Reference Range Interpretation Comments Urine Clarity (test code = 91690-6) CLEAR CLEAR [facility] AntonioUrine Specific Vzjedfe4951-57-54 20:49:00 * Test Item Value Reference Range Interpretation Comments Urine Specific [place] (test code = 5811-5) 1.010 1.010-1.02 5 [facility] AntonioU[facility] jG4614-79-43 20:49:00* Test Item Value Reference Range Interpretation Comments Urine pH (test code = 80502-7) 7.5 5-7 [facility] AntonioU[facility] Leukocyte Ffrzrexk2137-33-38 20:49:00* Test Item Value Reference Range Interpretation Comments Urine Leukocyte Esterase (test code = 54803-4) NEGATIVE NEGATIV E [facility] Muwjhcu9452-82-12 20:49:00* Test Item Value Reference Range Interpretation Comments Urine Nitrite (test code = 15496-6) NEGATIVE NEGATIVE [facility] Ztwpwog2513-15-08 20:49:00* Test Item Value Reference Range Interpretation Comments Urine Protein (test code = 98520-2) NEGATIVE NEGATIVE [facility] Antonio[facility] Glucose (UA)2018-09-27 20:49:00* Test Item Value Reference Range Interpretation Comments Urine Glucose (UA) (test code = 80458-9) NEGATIVE NEGATIVE [facility] Antonio[facility] Brapfem0292-04-78 20:49:00* Test Item Value Reference Range Interpretation Comments Urine Ketones (test code = 02922-4) NEGATIVE NEGATIVE [facility] Kzoqndgngnil4202-87-32 20:49:00* Test Item Value Reference Range Interpretation Comments Urine Urobilinogen (test code = 00591-4) 0.2 0.2-1 [facility] Zwzwvubbk9207-05-88 20:49:00* Test Item Value Reference Range Interpretation Comments Urine Bilirubin (test code = 1977-8) NEGATIVE NEGATIVE [facility] Smked2205-50-64 20:49:00* Test Item Value Reference Range Interpretation Comments Urine Blood (test code = 20498-0) NEGATIVE NEGATIVE [facility] Mwsgg9907-29-39 20:49:00* Test Item Value Reference Range Interpretation Comments Urine Color (test code = 5778-6) YELLOW YELLOW [facility] Wmmrkvg7194-94-52 20:49:00* Test Item Value Reference Range Interpretation Comments Urine Clarity (test code = 56209-8) CLEAR CLEAR [facility] Antonio[facility] Specific Hvaejms8235-96-77 20:49:00 * Test Item Value Reference Range Interpretation Comments Urine Specific [place] (test code = 5811-5) 1.010 1.010-1.02 5 [facility] Antonio[facility] dM2108-29-06 20:49:00* Test Item Value Reference Range Interpretation Comments Urine pH (test code = 24258-3) 7.5 5-7 [facility] Leukocyte Wmvgsjxe4992-01-37 20:49:00* Test Item Value Reference Range Interpretation Comments Urine Leukocyte Esterase (test code = 33974-7) NEGATIVE NEGATIV E [facility] Qpmbsmn9522-96-59 20:49:00* Test Item Value Reference Range Interpretation Comments Urine Nitrite (test code = 05486-8) NEGATIVE NEGATIVE [facility] Lbtyulo5230-52-88 20:49:00* Test Item Value Reference Range Interpretation Comments Urine Protein (test code = 85175-4) NEGATIVE NEGATIVE [facility] Glucose (UA)2018-09-27 20:49:00* Test Item Value Reference Range Interpretation Comments Urine Glucose (UA) (test code = 50849-7) NEGATIVE NEGATIVE [facility] Dyjinyq0614-55-36 20:49:00* Test Item Value Reference Range Interpretation Comments Urine Ketones (test code = 29907-2) NEGATIVE NEGATIVE [facility] Rggmqbdvldur0399-07-93 20:49:00* Test Item Value Reference Range Interpretation Comments Urine Urobilinogen (test code = 24324-5) 0.2 0.2-1 [facility] Ehtmyjkck1093-81-62 20:49:00* Test Item Value Reference Range Interpretation Comments Urine Bilirubin (test code = 1977-8) NEGATIVE NEGATIVE [facility] Uahve7632-82-23 20:49:00* Test Item Value Reference Range Interpretation Comments Urine Blood (test code = 39032-0) NEGATIVE NEGATIVE [facility] Avfxn3107-07-06 20:49:00* Test Item Value Reference Range Interpretation Comments Urine Color (test code = 5778-6) YELLOW YELLOW [facility] Antonio[facility] Ssubilc3050-11-08 20:49:00* Test Item Value Reference Range Interpretation Comments Urine Clarity (test code = 94392-4) CLEAR CLEAR [facility] Antonio[facility] Specific Ozuizah3690-75-60 20:49:00 * Test Item Value Reference Range Interpretation Comments Urine Specific [place] (test code = 5811-5) 1.010 1.010-1.02 5 [facility] wW2430-59-44 20:49:00* Test Item Value Reference Range Interpretation Comments Urine pH (test code = 03825-6) 7.5 5-7 [facility] Leukocyte Fiouqchy6413-07-59 20:49:00* Test Item Value Reference Range Interpretation Comments Urine Leukocyte Esterase (test code = 39458-2) NEGATIVE NEGATIV E [facility] Rqzipul7405-00-75 20:49:00* Test Item Value Reference Range Interpretation Comments Urine Nitrite (test code = 66635-4) NEGATIVE NEGATIVE [facility] Kwvexnq2637-98-79 20:49:00* Test Item Value Reference Range Interpretation Comments Urine Protein (test code = 09308-5) NEGATIVE NEGATIVE [facility] Glucose (UA)2018-09-27 20:49:00* Test Item Value Reference Range Interpretation Comments Urine Glucose (UA) (test code = 97748-9) NEGATIVE NEGATIVE [facility] Wpbjrog4049-44-39 20:49:00* Test Item Value Reference Range Interpretation Comments Urine Ketones (test code = 97459-1) NEGATIVE NEGATIVE [facility] Yeknbwyjlkfk6991-62-30 20:49:00* Test Item Value Reference Range Interpretation Comments Urine Urobilinogen (test code = 89060-9) 0.2 0.2-1 [facility] Petigmivt3273-74-61 20:49:00* Test Item Value Reference Range Interpretation Comments Urine Bilirubin (test code = 1977-8) NEGATIVE NEGATIVE [facility] Eenhq9267-04-47 20:49:00* Test Item Value Reference Range Interpretation Comments Urine Blood (test code = 37929-8) NEGATIVE NEGATIVE [facility] AntonioCHEST 2 TLJRI9474-18-84 16:22:00 [place] [address] Patient Name: JOSHUA WHEELER MR #: [id number] : 1960 Age/Sex: 57/M Req #: [id number] Adm Physician: Ordered by: SOUMYA SEGOVIA MD Report #: [id number] Location: ER Room/Bed: Procedure: [id number] DX/CHEST 2 VIEWS Exam Date: 09/27/18 Exam [...] on 09/27/181625 COPY TO: SOUMYA SEGOVIA MD MKUAOD1621-14-43 17:44:00* Test Item Value Reference Range Interpretation Comments GLUBED (test code = GLUBED) 164 mg/dL 74-106 H Performed by certified lithograph operator at [facility] CBC W/AUTO UUCV3445-91-19 14:52:00* Test Item Value Reference Range Interpretation [...] = MDIFF) NO, ONLY SCAN NEEDED DIFFERENTIAL AQGJ2120-84-76 14:52:00* Test Item Value Reference Range Interpretation Comments STAIN ACCEPTABILITY (test code = STN ACCEPTABLE) STAIN ACCEPTABLE PLATELET ESTIMATE (test code = PLTEST) DECREASED PLATELET MORPHOLOGY (test code = PLTMORPH) NORMAL BASIC METABOLIC TFITN5672-31-58 14:21:00* Test Item Value Reference Range Interpretation [...] CA) 8.7 mg/dL 8.5-10.1 N HEPATIC FUNCTION BQOQX2278-66-28 14:21:00* Test Item Value Reference Range Interpretation [...] reference range due to change in reagent. MNACZYKD-M2735-71-23 14:21:00* Test Item Value Reference Range Interpretation Comments TROPONIN-I (test code = TROPI) 0.016 ng/mL 0-0.045 N - XR CHEST 1 [id number] 14:21:00 FAX: Usman Hendrickson DO [place]: St: REG Name: JOSHUA VENEGAS [facility] : [birth year] Age[facility]S: 57/M [address] [facility]: [id number] Loc: [place] [address] Phys: Usman Hendrickson DO Acct: [id number] Dis Date: Status: REG ER PHONE #: [phone] Exam Date: 09/19/2018 1337 FAX #: [phone] Reason: Altered Mental Status EXAMS: CPT CODE: [id number] XR CHEST 1 V 75302 Location: T 18 Chest x-ray exam, PA [...] be helpful to exclude underlying process at 1427 Reported and s igned by: Iona Driscoll M.D. CC: Usman Hendrickson DO Technologist: Carmen Watkins RT(R) Trnscrd Date/Time/By: 09/19/2018 (6277) : By: [email or web address] Orig Print D/T: S: 09/19/2018 (6064) PAGE 1 Signed Report - CT HEAD/BRAIN W/O IVHE6853-21-03 14:10:00 Name: JOSHUA CACERES [facility] : 1960 Age/S: 57 / M [address] Unit #: [id number] Loc: [place] [address] Phys: Usman Hendrickson DO Acct: [id number] Dis Date: Status: REG ER PHONE #: [phone] Exam Date: 09/19/2018 1404 FAX #: [phone] Reason: Altered Mental Status EXAMS: CPT CODE: [id number] CT HEAD/BRAIN W/O CONT 02597 TECHNIQUE: - CT HEAD/BRAIN W/O CONT . [...] 1 Signed Report (CONTINUED) Name: JOSHUA CACERES [facility] : 1960 Age/S: 57 / M [address] Unit #: [id number] Loc: [place] [address] Phys: Usman Hendrickson DO Acct: [id number] Dis Date: Status: REG ER PHONE #: [phone] Exam Date: 09/19/2018 1404 FAX #: [phone] Reason: Altered Mental Status EXAMS: CPT COD E: [id number] CT HEAD/BRAIN W/O CONT 75294 <Continued> at 1410 Reported and signed by: Dillan Menendez M.D. CC: Usman Hendrickson DO Technologist:Glen Kruse RT(R),(MR),(CT); CTDI: DLP: Trnscb Date/Time: 09/19/2018 (1410) Judi Orig Print D/T: S: 09/19/2018 (7140) PAGE 2 Signed Report BASIC METABOLIC [id number] 14:08:00* Test Item Value Reference Range Interpretation [...] code = CA) mg/dL 8.5-10.1 HEPATIC FUNCTION NUBOO2434-28-26 14:08:00* Test Item Value Reference Range Interpretation [...] TOTAL (test code = ALKP) IUnit/L 45-117 VFJSFVAD-[id number] 14:08:00* Test Item Value Reference Range Interpretation Comments TROPONIN-I (test code = TROPI) ng/mL 0-0.045 CBC W/AUTO [id number] 14:01:00* Test Item Value Reference Range Interpretation [...] = MDIFF) NO, ONLY SCAN NEEDED DIFFERENTIAL [id number] 14:01:00* Test Item Value Reference Range Interpretation Comments STAIN ACCEPTABILITY (test code = STN ACCEPTABLE) CABOT RINGS (test code = CAB) MORPHOLOGY COMMENT (test code = MOC) PLATELET ESTIMATE (test code = PLTEST) PLATELET MORPHOLOGY (test code = PLTMORPH) CBC W/AUTO [id number] 14:01:00* Test Item Value Reference Range Interpretation [...] = MDIFF) NO, ONLY SCAN NEEDED DIFFERENTIAL [id number] 14:01:00* Test Item Value Reference Range Interpretation Comments STAIN ACCEPTABILITY (test code = STN ACCEPTABLE) MORPHOLOGY COMMENT (test code = MOC) PLATELET ESTIMATE (test code = PLTEST) PLATELET MORPHOLOGY (test code = PLTMORPH) CBC W/AUTO [id number] 14:01:00* Test Item Value Reference Range Interpretation [...] = MDIFF) NO, ONLY SCAN NEEDED DIFFERENTIAL [id number] 14:01:00* Test Item Value Reference Range Interpretation Comments STAIN ACCEPTABILITY (test code = STN ACCEPTABLE) MORPHOLOGY COMMENT (test code = MOC) PLATELET ESTIMATE (test code = PLTEST) PLATELET MORPHOLOGY (test code = PLTMORPH) CBC W/AUTO [id number] 14:00:00* Test Item Value Reference Range Interpretation [...] = MDIFF) NO, ONLY SCAN NEEDED DIFFERENTIAL [id number] 14:00:00* Test Item Value Reference Range Interpretation Comments STAIN ACCEPTABILITY (test code = STN ACCEPTABLE) [place] (test code = CAB) MORPHOLOGY COMMENT (test code = MOC) PLATELET ESTIMATE (test code = PLTEST) PLATELET MORPHOLOGY (test code = PLTMORPH) Triiodothyronine (T3) Free [Mass/volume] in Serum or Yjbfes9787-36-43 00:00:00* Test Item Value Reference Range Interpretation Comments T3, free (test code = T3, free) 2.8 pg/mL 2.3-4.2 [facility]Hepatitis [facility] virus RNA [Units/volume] (viral load) in Serum or Plasma by Probe and target amplification wzzqqr6196-14-90 00:00:00* Test Item Value Reference Range Interpretation Comments hepatitis C antibody (test code = hepatitis C antibody) non- reactive non-reactive signal to cut-off (test code = signal to cut-off) 0.04 <1.0 0 [facility] CenterThyroperoxidase Ab [Units/volume] in Muvig4194-26-60 00:00:00* Test Item Value Reference Range Interpretation Comments thyroid peroxidase antibodies (test code = thyroid peroxidase an tibodies) <1 <9 [facility] CenterThyroxine (T4) free [Mass/volume] in Serum or Plasma 2018-08-08 00:00:00* Test Item Value Reference Range Interpretation Comments T4, free (test code = T4, free) 1.7 NG/dL 0.8-1.8 [facility] CenterComprehensive metabolic 2000 panel - Serum or Plasma 2018-08-01 00:00:00* Test Item Value Reference Range Interpretation Comments glucose (test code = glucose) 196 mg/dL 65-99 H urea nitrogen (BUN) (test code = urea nitrogen (BUN)) 45 mg/dL 7-25 H creatinine (test code = creatinine) 6.16 mg/dL 0.70-1.33 H eGFR non-afr. azerbaijani (test code = eGFR non-afr. azerbaijani) 9 mL/min/1.73m2 > or = 60 L [...] (test code = ALT) 24 U/L 9-46 [facility] CenterLipid 1996 panel - Serum or Rfbopp1588-94-49 00:00:00* Test Item Value Reference Range Interpretation [...] cholesterol) 132 mg/dL (ca lc) <130 H [facility] CenterHemoglobin A1c/Hemoglobin.total in Cmywe9132-77-69 00:00:00* Test Item Value Reference Range Interpretation Comments Hemoglobin A1c/Hemoglobin.total in Blood (test code = 4548-4) 5.7 % of total HGB <5.7 H EAG (mg/dL) (test code = EAG (mg/dL)) 117 (calc) EAG (mmol/L) (test code = EAG (mmol/L)) 6.5 (calc) [facility] CenterCBC W Auto Differential panel - Jrope2419-80-05 00:00:00 * Test Item Value Reference Range [...] code = absolute neutrophils) 4556 sarah ls/uL 7274-5457 absolute lymphocytes (test code = absolute lymphocytes) [...] basophils (test code = basophils) 1.2 % [facility] CenterThyrotropin [Units/volume] in Serum or Tmmuee2982-40-15 00:00:00* Test Item Value Reference Range Interpretation Comments TSH (test code = TSH) 0.16 mIU/L 0.40-4.50 L [facility] CenterComprehensive [facility] 2000 panel - Serum or Plasma 2018-08-01 00:00:00* Test Item Value Reference Range Interpretation Comments glucose (test code = glucose) 196 mg/dL 65-99 H urea nitrogen (BUN) (test code = urea nitrogen (BUN)) 45 mg/dL 7-25 H creatinine (test code = creatinine) 6.16 mg/dL 0.70-1.33 H eGFR non-afr. azerbaijani (test code = eGFR non-afr. azerbaijani) 9 mL/min/1.73m2 > or = 60 L [...] (test code = ALT) 24 U/L 9-46 [facility] CenterLipid 1995 panel - Serum or Mdvwyk6974-52-35 00:00:00* Test Item Value Reference Range Interpretation [...] cholesterol) 132 mg/dL (ca lc) <130 H [facility] CenterHemoglobin A1c/Hemoglobin.total in Qvept5081-65-96 00:00:00* Test Item Value Reference Range Interpretation Comments Hemoglobin A1c/Hemoglobin.total in Blood (test code = 4548-4) 5.7 % of total HGB <5.7 H EAG (mg/dL) (test code = EAG (mg/dL)) 117 (calc) EAG (mmol/L) (test code = EAG (mmol/L)) 6.5 (calc) [facility] CenterCBC W Auto Differential panel - Tnuvr5011-23-42 00:00:00 * Test Item Value Reference Range [...] code = absolute neutrophils) 4556 sarah ls/uL 8345-8643 absolute lymphocytes (test code = absolute lymphocytes) [...] basophils (test code = basophils) 1.2 % [facility] CenterThyrotropin [Units/volume] in Serum or Hgwawp4481-91-30 00:00:00* Test Item Value Reference Range Interpretation Comments TSH (test code = TSH) 0.16 mIU/L 0.40-4.50 L [facility] CenterHepatitis Be Iskwgjo3536-31-39 12:47:00* Test Item Value Reference Range Interpretation Comments Hepatitis Be Antigen (test code = 57121-3) Negative Negative [facility] B Core IgM Qkyxwair5234-75-54 12:47:00* Test Item Value Reference Range Interpretation Comments Hepatitis B Core IgM Antibody (test code = 95257-3) Negative Ne gative Performed at: - Lab[address] [id number] Director: Alec Javier MD, Phone: [phone] Memorial Medical Center Be Qfjevaj8462-43-39 12:47:00* Test Item Value Reference Range Interpretation Comments Hepatitis Be Antigen (test code = 90733-0) Negative Negative [facility] B Core IgM Uflvucfw2469-79-69 12:47:00* Test Item Value Reference Range Interpretation Comments Hepatitis B Core IgM Antibody (test code = 15827-6) Negative Ne gative Performed at: - [address] [id number] Director: Alec Javier MD, Phone: [phone]'s Hospital of San AntonioBedside Klupcyl8237-29-13 16:25:00* Test Item Value Reference Range Interpretation Comments Bedside Glucose (test code = 26378-6) 182 70-120 H Meter ID: [id number] Medical Centerodium Level 2018-07-13 06:39:00* Test Item Value Reference Range Interpretation Comments Sodium Level (test code = 2951-2) 138 136-145 [facility] AntonioPotassium Fffmc0726-48-29 06:39:00* Test Item Value Reference Range Interpretation Comments Potassium Level (test code = 2823-3) 4.8 3.5-5.1 [facility] AntonioChloride Rhplw0989-67-46 06:39:00* Test Item Value Reference Range Interpretation Comments Chloride Level (test code = 2075-0) 100 98-107 [facility] AntonioCarbon Dioxide Kcvat8684-21-76 06:39:00* Test Item Value Reference Range Interpretation Comments Carbon Dioxide Level (test code = 2028-9) 28 22-29 [facility] AntonioAnion Qhj9670-85-09 06:39:00* Test Item Value Reference Range Interpretation Comments Anion Gap (test code = 17490-5) 14.8 8-16 [facility] AntonioBlood Urea Ufsmfbut6178-38-13 06:39:00* Test Item Value Reference Range Interpretation Comments Blood Urea Nitrogen (test code = 3094-0) 43 7-26 H [facility] AntonioCreatinine2019-03-16 06:39:00* Test Item Value Reference Range Interpretation Comments Creatinine (test code = 2160-0) 6.00 0.72-1.25 H [facility] AntonioBUN/Creatinine Vvosl5834-58-41 06:39:00* Test Item Value Reference Range Interpretation Comments BUN/Creatinine Ratio (test code = 3097-3) 7 6-25 [facility] AntonioEstimat Glomerular Filtration Rate 2018-07-13 06:39:00* Test Item Value Reference Range Interpretation Comments Estimat Glomerular Filtration Rate (test code = 578641090) 10 >60 L Ranges were taken from the National Kidney Disease Education Program and the [facility] Kidney Foundation literature.Reference ranges:60 or greater: Silohl19-63 ( for 3 consecutive months): Chronic kidney disease 15 or less: Kidney failureChildren's Hospital of San AntonioGlucose Eusks1633-10-10 06:39:00* Test Item Value Reference Range Interpretation Comments Glucose Level (test code = ADE5299) 104 74-118 [facility] AntonioCalcium Woqbt6359-20-64 06:39:00* Test Item Value Reference Range Interpretation Comments Calcium Level (test code = 78588-0) 7.7 8.4-10.2 L [facility] AntonioHemoglobin A1c Qtkxfif7688-49-12 09:58:00 * Test Item Value Reference Range Interpretation Comments Hemoglobin A1c Percent (test code = Hemoglobin A1c Percent) 5.6 4.0-7.0 [facility]erg[facility] Xteqf6509-63-67 01:27:00* Test Item Value Reference Range Interpretation Comments Magnesium Level (test code = 92634-4) 2.0 1.3-2.1 [facility]eresium Jivxw8317-44-75 01:27:00* Test Item Value Reference Range Interpretation Comments Magnesium Level (test code = 82953-8) 2.0 1.3-2.1 [facility] Centeresium Agfht2423-90-01 01:27:00* Test Item Value Reference Range Interpretation Comments Magnesium Level (test code = 48959-6) 2.0 1.3-2.1 [facility] AntonioWhite Blood Zyoga3012-47-12 01:08:00* Test Item Value Reference Range Interpretation Comments White Blood Count (test code = 6690-2) 5.76 4.8-10.8 [facility] AntonioRed Blood Twucq8605-51-67 01:08:00* Test Item Value Reference Range Interpretation Comments Red Blood Count (test code = 789-8) 3.21 4.3-5.7 L [facility] AntonioHemoglobin2019-03-14 01:08:00* Test Item Value Reference Range Interpretation Comments Hemoglobin (test code = 77974-8) 9.6 14.0-18.0 L [facility] AntonioHematocrit2019-03-14 01:08:00* Test Item Value Reference Range Interpretation Comments Hematocrit (test code = 4544-3) 30.1 38.2-49.6 L [facility] AntonioMean Corpuscular Pygoth8787-52-93 01:08:00* Test Item Value Reference Range Interpretation Comments Mean Corpuscular Volume (test code = 787-2) 93.8 81-99 [facility] AntonioMean Corpuscular Ilvfobovwa0202-35-39 01:08:00* Test Item Value Reference Range Interpretation Comments Mean Corpuscular Hemoglobin (test code = 785-6) 29.9 28-32 [facility] AntonioMean Corpuscular Hemoglobin Concent 2018-07-11 01:08:00* Test Item Value Reference Range Interpretation Comments Mean Corpuscular Hemoglobin Concent (test code = 786-4) 31.9 31-35 [facility] AntonioRed Cell Distribution Cigyb1617-73-54 01:08:00* Test Item Value Reference Range Interpretation Comments Red Cell Distribution Width (test code = 11938-5) 16.5 11.7 -14.4 H [facility] AntonioPlatelet Iqsjo5029-49-21 01:08:00* Test Item Value Reference Range Interpretation Comments Platelet Count (test code = 777-3) 134 140-360 L [facility] AntonioNeutrophils (%) (Auto)2018-07-11 01:08:00 * Test Item Value Reference Range Interpretation Comments Neutrophils (%) (Auto) (test code = 76623-3) 63.6 38.7-80.0 [facility] AntonioLymphocytes (%) (Auto)2018-07-11 01:08:00 * Test Item Value Reference Range Interpretation Comments Lymphocytes (%) (Auto) (test code = 736-9) 19.6 18.0-39.1 [facility] AntonioMonocytes (%) (Auto)2018-07-11 01:08:00* Test Item Value Reference Range Interpretation Comments Monocytes (%) (Auto) (test code = 5905-5) 11.6 4.4-11.3 H [facility] AntonioEosinophils (%) (Auto)2018-07-11 01:08:00 * Test Item Value Reference Range Interpretation Comments Eosinophils (%) (Auto) (test code = 713-8) 3.3 0.0-6.0 [facility] AntonioBasophils (%) (Auto)2018-07-11 01:08:00* Test Item Value Reference Range Interpretation Comments Basophils (%) (Auto) (test code = 706-2) 1.7 0.0-1.0 H [facility] AntonioIM GRANULOCYTES %2018-07-11 01:08:00* Test Item Value Reference Range Interpretation Comments IM GRANULOCYTES % (test code = IM GRANULOCYTES %) 0.2 0.0- 1.0 [facility] AntonioNeutrophils # (Auto)2018-07-11 01:08:00* Test Item Value Reference Range Interpretation Comments Neutrophils # (Auto) (test code = 751-8) 3.7 2.1-6.9 [facility] AntonioLymphocytes # (Auto)2018-07-11 01:08:00* Test Item Value Reference Range Interpretation Comments Lymphocytes # (Auto) (test code = 71601-9) 1.1 1.0-3.2 [facility] AntonioMonocytes # (Auto)2018-07-11 01:08:00* Test Item Value Reference Range Interpretation Comments Monocytes # (Auto) (test code = 742-7) 0.7 0.2-0.8 [facility] AntonioEosinophils # (Auto)2018-07-11 01:08:00* Test Item Value Reference Range Interpretation Comments Eosinophils # (Auto) (test code = 711-2) 0.2 0.0-0.4 [facility] AntonioBasophils # (Auto)2018-07-11 01:08:00* Test Item Value Reference Range Interpretation Comments Basophils # (Auto) (test code = 704-7) 0.1 0.0-0.1 [facility] AntonioAbsolute Immature Granulocyte (auto 2018-07-11 01:08:00* Test Item Value Reference Range Interpretation Comments Absolute Immature Granulocyte (auto (dany t code = Absolute Immature Granulocyte (auto) 0.01 0-0.1 [facility] AntonioB-Type Natriuretic Cyesxte4753-10-78 06:15:00* Test Item Value Reference Range Interpretation Comments B-Type Natriuretic Peptide (test code = 82971-7) > 5000.0 0-100 H [facility] AntonioB-Type Natriuretic Iddvxdz4722-80-93 06:15:00* Test Item Value Reference Range Interpretation Comments B-Type Natriuretic Peptide (test code = 52388-5) > 5000.0 0-100 H [facility] AntonioThyroid Stimulating Hormone (TSH) 2018-07-09 06:59:00* Test Item Value Reference Range Interpretation Comments Thyroid Stimulating Hormone (TSH) (test code = 03626-6) 1.555 0.350-4.940 [facility] AntonioThyroid Stimulating Hormone (TSH) 2018-07-09 06:59:00* Test Item Value Reference Range Interpretation Comments Thyroid Stimulating Hormone (TSH) (test code = 63224-1) 1.555 0.350-4.940 [facility] AntonioThyroid Stimulating Hormone (TSH) 2018-07-09 06:59:00* Test Item Value Reference Range Interpretation Comments Thyroid Stimulating Hormone (TSH) (test code = 18606-8) 1.555 0.350-4.940 [facility] AntonioPhosphorus Njugp2401-76-35 06:45:00* Test Item Value Reference Range Interpretation Comments Phosphorus Level (test code = HKN4462) 5.3 2.3-4.7 [facility] of [place] AntonioIron Balgu1317-61-25 06:45:00* Test Item Value Reference Range Interpretation Comments Iron Level (test code = 2498-4) 38 65-175 L [facility] AntonioTotal Iron Binding Iamcirzk1813-13-74 06:45:00* Test Item Value Reference Range Interpretation Comments Total Iron Binding Capacity (test code = 2500-7) 287 261-4 78 [facility] AntonioPercent Iron Pcscfsgxux0485-76-38 06:45:00* Test Item Value Reference Range Interpretation Comments Percent Iron Saturation (test code = 2502-3) 13 15-50 L [facility] AntonioTransferrin2019-03-12 06:45:00* Test Item Value Reference Range Interpretation Comments Transferrin (test code = 3034-6) 205 174-364 [facility] AntonioPhosphorus Wfkoq6459-28-41 06:45:00* Test Item Value Reference Range Interpretation Comments Phosphorus Level (test code = JFD9823) 5.3 2.3-4.7 H [facility] AntonioIron Kdgpt8375-62-82 06:45:00* Test Item Value Reference Range Interpretation Comments Iron Level (test code = 2498-4) 38 65-175 L [facility] AntonioTotal Iron Binding Bcposhof2781-98-24 06:45:00* Test Item Value Reference Range Interpretation Comments Total Iron Binding Capacity (test code = 2500-7) 287 261-4 78 [facility] AntonioPercent Iron Vhrckjrebp2042-87-87 06:45:00* Test Item Value Reference Range Interpretation Comments Percent Iron Saturation (test code = 2502-3) 13 15-50 L [facility] AntonioTransferrin2019-03-12 06:45:00* Test Item Value Reference Range Interpretation Comments Transferrin (test code = 3034-6) 205 174-364 [facility] AntonioPhosphorus Dwjrw4825-32-34 06:45:00* Test Item Value Reference Range Interpretation Comments Phosphorus Level (test code = BSH9070) 5.3 2.3-4.7 H [facility] AntonioIron Nqine8315-46-82 06:45:00* Test Item Value Reference Range Interpretation Comments Iron Level (test code = 2498-4) 38 65-175 L [facility] [place] AntonioTotal Iron Binding Mrskterd4688-50-83 06:45:00* Test Item Value Reference Range Interpretation Comments Total Iron Binding Capacity (test code = 2500-7) 287 261-4 78 [facility] AntonioPercent Iron Hspmqsoldo5885-15-37 06:45:00* Test Item Value Reference Range Interpretation Comments Percent Iron Saturation (test code = 2502-3) 13 15-50 L [facility] AntonioTransferrin2019-03-12 06:45:00* Test Item Value Reference Range Interpretation Comments Transferrin (test code = 3034-6) 205 174-364 [facility] AntonioVitamin B12 Zrhpm1136-75-75 06:16:00* Test Item Value Reference Range Interpretation Comments Vitamin B12 Level (test code = 20979-1) 369 213-816 [facility] AntonioFolate2019-03-12 06:16:00* Test Item Value Reference Range Interpretation Comments Folate (test code = 2284-8) 6.9 7.0-15.4 L [facility] AntonioVitamin B12 Ssvsn1717-22-52 06:16:00* Test Item Value Reference Range Interpretation Comments Vitamin B12 Level (test code = 92489-0) 369 213-816 [facility] AntonioFolate2019-03-12 06:16:00* Test Item Value Reference Range Interpretation Comments Folate (test code = 2284-8) 6.9 7.0-15.4 L [facility] AntonioVitamin B12 Wbiaw4374-43-11 06:16:00* Test Item Value Reference Range Interpretation Comments Vitamin B12 Level (test code = 40134-9) 369 213-816 [facility] AntonioFolate2019-03-12 06:16:00* Test Item Value Reference Range Interpretation Comments Folate (test code = 2284-8) 6.9 7.0-15.4 L [facility] AntonioCreatine Kinase BF4539-10-23 05:50:00* Test Item Value Reference Range Interpretation Comments Creatine Kinase MB (test code = 87540-4) 0.90 0-5.0 [facility] AntonioTroponin Y5962-77-59 05:50:00* Test Item Value Reference Range Interpretation Comments Troponin I (test code = IAB7945) 0.077 0-0.300 [facility] AntonioCreatine Gxavwo2122-42-36 05:43:00* Test Item Value Reference Range Interpretation Comments Creatine Kinase (test code = 2157-6) 71 30-200 [facility] AntonioTotal Xtljiiybe8486-02-01 10:36:00* Test Item Value Reference Range Interpretation Comments Total Bilirubin (test code = 1975-2) 0.5 0.2-1.2 [facility] AntonioAspartate Amino Transf (AST/SGOT) 2018-07-08 10:36:00* Test Item Value Reference Range Interpretation Comments Aspartate Amino Transf (AST/SGOT) (test code = Aspartate Amino Transf (AST/SGOT)) 21 5-34 [facility] AntonioAlanine Aminotransferase (ALT/SGPT) 2018-07-08 10:36:00* Test Item Value Reference Range Interpretation Comments Alanine Aminotransferase (ALT/SGPT) (test code = 1742-6) 20 0-55 [facility] AntonioTotal Lmrrccr4519-89-69 10:36:00* Test Item Value Reference Range Interpretation Comments Total Protein (test code = 2885-2) 6.4 6.5-8.1 L [facility] AntonioAlbumin2019-03-11 10:36:00* Test Item Value Reference Range Interpretation Comments Albumin (test code = 1751-7) 2.9 3.5-5.0 L [facility] AntonioGlobulin2019-03-11 10:36:00* Test Item Value Reference Range Interpretation Comments Globulin (test code = 94237-5) 3.5 2.3-3.5 [facility] AntonioAlbumin/Globulin Lvmso6672-90-96 10:36:00 * Test Item Value Reference Range Interpretation Comments Albumin/Globulin Ratio (test code = 1759-0) 0.8 0.8-2.0 [facility] AntonioAlkaline Aiqwezxanct6860-17-94 10:36:00* Test Item Value Reference Range Interpretation Comments Alkaline Phosphatase (test code = 6768-6) 149 40-150 [facility] AntonioCHEST SINGLE (PORTABLE)2018-07-08 10:09:00 [facility] [address] [place] [address] Patient Name: JOSHUA CACERES MR #: [id number] : 1960 Age/Sex: 57/M Req #: [id number] Adm Physician: Ordered by: AISHA NOVOA MD Report #: [id number] Location: ER Room/Bed: Procedure: [id number] DX/SRIDEVI ST SINGLE (PORTABLE) Exam Date: 07/08/18 [...] 07/08/18 1011 COPY TO: AISHA NOVOA MD Bedside Qhfmemy4027-14-58 15:59:00* Test Item Value Reference Range Interpretation Comments Bedside Glucose (test code = 44189-2) 170 70-120 H Meter ID: [id number] [facility] 2018-06-28 18:15:00 [place] [address] Patient Name: JOSHUA CACERES MR #: [id number] : 1960 Age/Sex: 57/M Req #: [id number] Adm Physician: DILLAN FAUSTIN MD Ordered by: MESERET MORE MD Report #: [id number] Location: MED/SURG Room/Bed: [facility] Procedure: [id number] DX/CHEST 2 VIEWS Exam Date: 06/28/18 Exam [...] 06/28/181815 C OPY TO: MESERET MORE MD Phosphorus Jrrxc4865-93-51 17:00:00* Test Item Value Reference Range Interpretation Comments Phosphorus Level (test code = CED0652) 2.9 2.3-4.7 [facility] AntonioHepatitis C Ybdikysy6072-65-12 07:45:00* Test Item Value Reference Range Interpretation Comments Hepatitis C Antibody (test code = 66235-7) <0.1 0.0-0.9 Negative: < 0.8 Indeterminate: 0.8 - 0.9 Positive: > 0.9 The CDC recommends that a positive HCV antibody result be followed up with a HCV Nucleic Acid Amplification test (792146).Performed at: [facility] [address] [place] [address] [id number] Director: Alec Javier MD, Phone: [phone]'s Hospital of [facility] AntonioHetustin [facility] C Tpaypfak3997-47-81 07:45:00* Test Item Value Reference Range Interpretation Comments Hepatitis C Antibody (test code = 71625-2) <0.1 0.0-0.9 Negative: < 0.8 Indeterminate: 0.8 - 0.9 Positive: > 0.9 The CDC recommends that a positive HCV antibody result be followed up with a HCV Nucleic Acid Amplification test (925153).Performed at: [facility] [employer] [id number] Director: Alec Javier MD, Phone: [phone]'s Hospital of San AntonioHetustin rehabilitation hospital C Bicusvvj1091-19-73 07:45:00* Test Item Value Reference Range Interpretation Comments Hepatitis C Antibody (test code = 96832-8) <0.1 0.0-0.9 Negative: < 0.8 Indeterminate: 0.8 - 0.9 Positive: > 0.9 The CDC recommends that a positive HCV antibody result be followed up with a HCV Nucleic Acid Amplification test (945357).Performed at: [employer] [id number] Director: Alec Javier MD, Phone: [phone]'s Hospital of San AntonioHemcdowell [facility] hospitaltis C Szqrguhk1687-35-85 07:45:00* Test Item Value Reference Range Interpretation Comments Hepatitis C Antibody (test code = 37027-5) <0.1 0.0-0.9 Negative: < 0.8 Indeterminate: 0.8 - 0.9 Positive: > 0.9 The CDC recommends that a positive HCV antibody result be followed up with a HCV Nucleic Acid Amplification test (018990).Performed at: [facility] [address] [place] [address] [id number] Director: Alec Javier MD, Phone: [phone]'s Hospital of San AntonioHemoglobin2019-02-27 22:55:00 * Test Item Value Reference Range Interpretation Comments Hemoglobin (test code = 13110-6) 8.8 14.0-18.0 L [facility] AntonioHematocrit2019-02-27 22:55:00* Test Item Value Reference Range Interpretation Comments Hematocrit (test code = 4544-3) 27.5 38.2-49.6 [facility]odium Ozmao5723-36-63 09:09:00* Test Item Value Reference Range Interpretation Comments Sodium Level (test code = 2951-2) 138 136-145 [facility] AntonioPotassium Wabmz3253-02-74 09:09:00* Test Item Value Reference Range Interpretation Comments Potassium Level (test code = 2823-3) 4.5 3.5-5.1 [facility] AntonioChloride Siike7354-90-05 09:09:00* Test Item Value Reference Range Interpretation Comments Chloride Level (test code = 2075-0) 100 98-107 [facility] AntonioCarbon Dioxide Hbuej5008-51-46 09:09:00* Test Item Value Reference Range Interpretation Comments Carbon Dioxide Level (test code = 2028-9) 27 22-29 [facility] AntonioAnion Yys6488-63-09 09:09:00* Test Item Value Reference Range Interpretation Comments Anion Gap (test code = 01824-6) 15.5 8-16 [facility] AntonioBlood Urea Iwhigngg0583-50-59 09:09:00* Test Item Value Reference Range Interpretation Comments Blood Urea Nitrogen (test code = 3094-0) 40 7-26 H [facility] AntonioCreatinine2019-02-27 09:09:00* Test Item Value Reference Range Interpretation Comments Creatinine (test code = 2160-0) 5.24 0.72-1.25 H [facility] AntonioBUN/Creatinine Cnmwz9653-87-08 09:09:00* Test Item Value Reference Range Interpretation Comments BUN/Creatinine Ratio (test code = 3097-3) 8 6-25 [facility] AntonioEstimat Glomerular Filtration Rate 2018-06-26 09:09:00* Test Item Value Reference Range Interpretation Comments Estimat Glomerular Filtration Rate (test code = 789937036) 11 >60 L Ranges were taken from the National Kidney Disease Education Program and the [facility] Foundation literature.Reference ranges:60 or greater: Hwneee53-32 ( for 3 consecutive months): Chronic kidney disease 15 or less: Kidney failureChildren's Hospital of San AntonioGlucose Avbgz4360-62-83 09:09:00* Test Item Value Reference Range Interpretation Comments Glucose Level (test code = ZFC8809) 105 74-118 [facility] AntonioCalcium Kkjuo0508-78-43 09:09:00* Test Item Value Reference Range Interpretation Comments Calcium Level (test code = 93354-7) 7.3 8.4-10.2 L [facility] AntonioTotal Ufzrbszfg9882-58-39 09:09:00* Test Item Value Reference Range Interpretation Comments Total Bilirubin (test code = 1975-2) 0.4 0.2-1.2 [facility] AntonioAspartate Amino Transf (AST/SGOT) 2018-06-26 09:09:00* Test Item Value Reference Range Interpretation Comments Aspartate Amino Transf (AST/SGOT) (test code = Aspartate Amino Transf (AST/SGOT)) 16 5-34 [facility] AntonioAlanine Aminotransferase (ALT/SGPT) 2018-06-26 09:09:00* Test Item Value Reference Range Interpretation Comments Alanine Aminotransferase (ALT/SGPT) (test code = 1742-6) 9 0-55 [facility] AntonioTotal Enudxyk5041-74-89 09:09:00* Test Item Value Reference Range Interpretation Comments Total Protein (test code = 2885-2) 5.6 6.5-8.1 L [facility] AntonioAlbumin2019-02-27 09:09:00* Test Item Value Reference Range Interpretation Comments Albumin (test code = 1751-7) 2.5 3.5-5.0 L [facility] AntonioGlobulin2019-02-27 09:09:00* Test Item Value Reference Range Interpretation Comments Globulin (test code = 90222-8) 3.1 2.3-3.5 [facility] AntonioAlbumin/Globulin Gifqq5367-61-48 09:09:00 * Test Item Value Reference Range Interpretation Comments Albumin/Globulin Ratio (test code = 1759-0) 0.8 0.8-2.0 [facility] AntonioAlkaline Gfqfvneicuf0515-06-37 09:09:00* Test Item Value Reference Range Interpretation Comments Alkaline Phosphatase (test code = 6768-6) 103 40-150 [facility] AntonioWhite Blood Gpnqt5791-52-13 08:29:00* Test Item Value Reference Range Interpretation Comments White Blood Count (test code = 6690-2) 2.86 4.8-10.8 L [facility] AntonioRed Blood Oyixu7406-83-79 08:29:00* Test Item Value Reference Range Interpretation Comments Red Blood Count (test code = 789-8) 2.58 4.3-5.7 L [facility] AntonioMean Corpuscular Alrnqu2044-77-09 08:29:00* Test Item Value Reference Range Interpretation Comments Mean Corpuscular Volume (test code = 787-2) 93.0 81-99 [facility] AntonioMean Corpuscular Kcyfnwcbig8650-45-98 08:29:00* Test Item Value Reference Range Interpretation Comments Mean Corpuscular Hemoglobin (test code = 785-6) 29.1 28-32 [facility] AntonioMean Corpuscular Hemoglobin Concent 2018-06-26 08:29:00* Test Item Value Reference Range Interpretation Comments Mean Corpuscular Hemoglobin Concent (test code = 786-4) 31.3 31-35 [facility] AntonioRed Cell Distribution Wlxma6153-00-18 08:29:00* Test Item Value Reference Range Interpretation Comments Red Cell Distribution Width (test code = 65994-0) 14.8 11.7 -14.4 H [facility] AntonioPlatelet Qqjfv9859-50-72 08:29:00* Test Item Value Reference Range Interpretation Comments Platelet Count (test code = 777-3) 132 140-360 L [facility] AntonioNeutrophils (%) (Auto)2018-06-26 08:29:00 * Test Item Value Reference Range Interpretation Comments Neutrophils (%) (Auto) (test code = 09196-1) 60.3 38.7-80.0 [facility] AntonioLymphocytes (%) (Auto)2018-06-26 08:29:00 * Test Item Value Reference Range Interpretation Comments Lymphocytes (%) (Auto) (test code = 736-9) 26.2 18.0-39.1 [facility] AntonioMonocytes (%) (Auto)2018-06-26 08:29:00* Test Item Value Reference Range Interpretation Comments Monocytes (%) (Auto) (test code = 5905-5) 6.6 4.4-11.3 [facility] AntonioEosinophils (%) (Auto)2018-06-26 08:29:00 * Test Item Value Reference Range Interpretation Comments Eosinophils (%) (Auto) (test code = 713-8) 5.9 0.0-6.0 [facility] AntonioBasophils (%) (Auto)2018-06-26 08:29:00* Test Item Value Reference Range Interpretation Comments Basophils (%) (Auto) (test code = 706-2) 0.7 0.0-1.0 [facility] AntonioIM GRANULOCYTES %2018-06-26 08:29:00* Test Item Value Reference Range Interpretation Comments IM GRANULOCYTES % (test code = IM GRANULOCYTES %) 0.3 0.0- 1.0 [facility] AntonioNeutrophils # (Auto)2018-06-26 08:29:00* Test Item Value Reference Range Interpretation Comments Neutrophils # (Auto) (test code = 751-8) 1.7 2.1-6.9 L [facility] AntonioLymphocytes # (Auto)2018-06-26 08:29:00* Test Item Value Reference Range Interpretation Comments Lymphocytes # (Auto) (test code = 24104-0) 0.8 1.0-3.2 L [facility] AntonioMonocytes # (Auto)2018-06-26 08:29:00* Test Item Value Reference Range Interpretation Comments Monocytes # (Auto) (test code = 742-7) 0.2 0.2-0.8 [facility] AntonioEosinophils # (Auto)2018-06-26 08:29:00* Test Item Value Reference Range Interpretation Comments Eosinophils # (Auto) (test code = 711-2) 0.2 0.0-0.4 [facility] AntonioBasophils # (Auto)2018-06-26 08:29:00* Test Item Value Reference Range Interpretation Comments Basophils # (Auto) (test code = 704-7) 0.0 0.0-0.1 [facility] AntonioAbsolute Immature Granulocyte (auto 2018-06-26 08:29:00* Test Item Value Reference Range Interpretation Comments Absolute Immature Granulocyte (auto (dany t code = Absolute Immature Granulocyte (auto) 0.01 0-0.1 [facility] AntonioProthrombin Ejgm9848-97-54 07:27:00* Test Item Value Reference Range Interpretation Comments Prothrombin Time (test code = 5902-2) 13.6 11.9-14.5 [facility] AntonioProthromb Time International Ratio 2018-06-24 07:27:00* Test Item Value Reference Range Interpretation Comments Prothromb Time International Ratio (test code = 6301-6) 0.95 Oral Anticoagulant Therapy INR Values:1. Low Intensity Therapy 1.5 - 2.02 . Moderate Intensity Therapy 2.0 - 3.03. High Intensity Therapy(1) 2.5 - 3. 54. High Intensity Therapy(2) 3.0 - 4.05. Panic Value INR > 5.0 [facility] San AntonioActivated Partial Thromboplast Time 2018-06-24 07:27:00* Test Item Value Reference Range Interpretation Comments Activated Partial Thromboplast Time (test code = 24308-8) 39.4 23.8-35.5 H [facility] San AntonioProthrombin Cced0494-13-66 07:27:00* Test Item Value Reference Range Interpretation Comments Prothrombin Time (test code = 5902-2) 13.6 11.9-14.5 [facility] AntonioProthromb Time International Ratio 2018-06-24 07:27:00* Test Item Value Reference Range Interpretation Comments Prothromb Time International Ratio (test code = 6301-6) 0.95 Oral Anticoagulant Therapy INR Values:1. Low Intensity Therapy 1.5 - 2.02 . Moderate Intensity Therapy 2.0 - 3.03. High Intensity Therapy(1) 2.5 - 3. 54. High Intensity Therapy(2) 3.0 - 4.05. Panic Value INR > 5.0 [facility] AntonioActivated Partial Thromboplast Time 2018-06-24 07:27:00* Test Item Value Reference Range Interpretation Comments Activated Partial Thromboplast Time (test code = 30165-7) 39.4 23.8-35.5 H [facility] AntonioProthrombin Jkiz4924-07-70 07:27:00* Test Item Value Reference Range Interpretation Comments Prothrombin Time (test code = 5902-2) 13.6 11.9-14.5 [facility] AntonioProthromb Time International Ratio 2018-06-24 07:27:00* Test Item Value Reference Range Interpretation Comments Prothromb Time International Ratio (test code = 6301-6) 0.95 Oral Anticoagulant Therapy INR Values:1. Low Intensity Therapy 1.5 - 2.02 . Moderate Intensity Therapy 2.0 - 3.03. High Intensity Therapy(1) 2.5 - 3. 54. High Intensity Therapy(2) 3.0 - 4.05. Panic Value INR > 5.0 [facility] AntonioActivated Partial Thromboplast Time 2018-06-24 07:27:00* Test Item Value Reference Range Interpretation Comments Activated Partial Thromboplast Time (test code = 78056-6) 39.4 23.8-35.5 H [facility] AntonioActivated Partial Thromboplast Time 2018-06-24 07:27:00* Test Item Value Reference Range Interpretation Comments Activated Partial Thromboplast Time (test code = 28578-7) 39.4 23.8-35.5 H [facility] AntonioBody Fluid nD4669-49-02 12:36:00* Test Item Value Reference Range Interpretation Comments Body Fluid pH (test code = 23123-5) 7.6 Not Estab. This test was developed and its performance characteristicsdetermined by [employer] . It has not been cleared orapproved by the Food and Drug Administration.Perform ed at: [address] [id number] Dir sebastien: Johanna Hines MD, Phone: [phone]'s Hospital of San AntonioBody Fluid rZ2867-26-97 12:36:00* Test Item Value Reference Range Interpretation Comments Body Fluid pH (test code = 91292-4) 7.6 Not Estab. This test was developed and its performance characteristicsdetermined by [employer] . It has not been cleared orapproved by the Food and Drug Administration.Perform ed at: [address] [id number] Dir sebastien: Johanna Hines MD, Phone: [phone][facility] Hospital of San AntonioBody Fluid oO4944-76-52 12:36:00* Test Item Value Reference Range Interpretation Comments Body Fluid pH (test code = 03415-8) 7.6 Not Estab. This test was developed and its performance characteristicsdetermined by [employer] . It has not been cleared orapproved by the Food and Drug Administration.Perform ed at: [address] [id number] Dir sebastien: Johanna Hines MD, Phone: [phone]'s Hospital of San AntonioBody Fluid fT9829-12-02 12:36:00* Test Item Value Reference Range Interpretation Comments Body Fluid pH (test code = 63142-9) 7.6 Not Estab. This test was developed and its performance characteristicsdetermined by [employer] . It has not been cleared orapproved by the Food and Drug Administration.Perform ed at: [address] [id number] Dir sebastien: Johanna Hines MD, Phone: [phone]'s Hospital of San AntonioCHEST XRAY POST LAHLCJXPY2192-35-06 21:08:00 [place] [address] Patient Name: JOSHUA CACERES MR #: [id number] : 1960 Age/Sex: 57/M Req #: [id number] Adm Physician: DILLAN FAUSTIN MD Ordered by: TAMMI ANDERSON DO Report #: [id number] Location: MED/SURG Room/Bed: [facility] Procedure: [id number] DX/CHEST X RAY POST PROCEDURE Exam Date: [...] 113 COPY TO: TAMMI ANDERSON DO IR RJBMYKW5993-42-71 16:40:00 [place] [address] Patient Name: JOSHUA CACERES MR #: [id number] : 1960 Age/Sex: 57/M Req #: [id number] [facility] Physician: DILLAN FAUSTIN MD Ordered by: MESERET MORE MD Report #: [id number] Location: MED/SURG Room/Bed: [facility] Procedure: [id number] DX/IR CONS ULT Exam Date: Exam Time: [...] 1640 COPY TO: MESERET MORE MD THORACENTESIS/US TFGLIZ5380-63-50 16:40:00 [place] [address] Patient Name: ACU,JOSHUA MR #: [id number] : 1960 Age/Sex: 57/M Req #: [id number] [facility] Physician: DILLAN FAUSTIN MD Ordered by: MESERET MORE MD Report #: [id number] Location: MED/SURG Room/Bed: [facility] Procedure: [id number] US/THORACE NTESIS/US GUIDED Exam Date: Exam Time: [...] 16:40 Dictated By: DEVEN ANDERSON DO 1640 Francy scribed By: ANDREW on 06/19/18 1640 COPY TO: MESERET MORE MD RENAL RETROPERITONEAL MIPH7526-56-94 16:40:00 [place] [address] Patient Name: JOSHUA CACERES MR #: [id number] : 1960 Age/Sex: 57/M Req #: [id number] Adm Physician: DILLAN FAUSTIN MD Ordered by: GERSON ORTIZ MD, MD Report #: [id number] Location: MED/SURG Room/Bed: [facility] Procedure: [id number] US/US ELLIOTT AL RETROPERITONEAL COMP Exam Date: [...] LOREE on 06/19/181641 COPY TO: GERSON ORTIZ Body Fluid Total Hznbjtr2140-84-02 16:37:00* Test Item Value Reference Range Interpretation Comments Body Fluid Total Protein (test code = 2881-1) 1.7 [facility] AntonioBody Fluid Total Eplqxzz8340-96-94 16:37:00* Test Item Value Reference Range Interpretation Comments Body Fluid Total Protein (test code = 2881-1) 1.7 [facility] AntonioBody Fluid Total Svjaiqk3966-76-43 16:37:00* Test Item Value Reference Range Interpretation Comments Body Fluid Total Protein (test code = 2881-1) 1.7 [facility] AntonioBody Fluid Total Cywbltc3045-21-03 16:37:00* Test Item Value Reference Range Interpretation Comments Body Fluid Total Protein (test code = 2881-1) 1.7 [facility] AntonioBody Fluid Lactate Dehydrogenase 2018-06-19 16:30:00* Test Item Value Reference Range Interpretation Comments Body Fluid Lactate Dehydrogenase (test code = 998325175) 100 No reference range has been established for this specimen type.[facility] AntonioBody Fluid Lactate Wthapxwmtjieo0706-40-00 16:30:00* Test Item Value Reference Range Interpretation Comments Body Fluid Lactate Dehydrogenase (test code = 060978415) 100 No reference range has been established for this specimen type.[facility] AntonioBody Fluid Lactate Nvuyhkmnowtno6798-90-87 16:30:00* Test Item Value Reference Range Interpretation Comments Body Fluid Lactate Dehydrogenase (test code = 590823727) 100 No reference range has been established for this specimen type.[facility] AntonioBody Fluid Lactate Hocpurlmzwqky3005-29-52 16:30:00* Test Item Value Reference Range Interpretation Comments Body Fluid Lactate Dehydrogenase (test code = 659031814) 100 No reference range has been established for this specimen type.[facility] AntonioCHEST XRAY POST GSAZPXSCY2633-12-28 16:29:00 [place] [address] Patient Name: JOSHUA CACERES MR #: [id number] : 1960 Age/Sex: 57/M Req #: [id number] Adm Physician: DILLAN FAUSTIN MD Ordered by: TAMMI ANDERSON DO Report #: [id number] Location: MED/SURG Room/Bed: 112 Procedure: [id number] DX/CHEST X RAY POST PROCEDURE Exam Date: Exam Time: REPORT STATUS: Signed PROCEDURE: CHEST XR AY POST PROCEDURE COMPARISON: [facility], DX, CHEST 2 VIEWS, 06/19, 6:29. INDICATIONS: [...] DO 28 COPY TO: DEVEN ANDERSON DO Body Fluid Ltockql3449-48-59 16:26:00* Test Item Value Reference Range Interpretation Comments Body Fluid Glucose (test code = 2344-0) 120 [facility] AntonioBody Fluid Pentxrw3345-82-34 16:26:00* Test Item Value Reference Range Interpretation Comments Body Fluid Glucose (test code = 2344-0) 120 [facility] AntonioBody Fluid Iaaqekx2684-66-54 16:26:00* Test Item Value Reference Range Interpretation Comments Body Fluid Glucose (test code = 2344-0) 120 [facility] AntonioBody Fluid Dnwnvko7591-72-38 16:26:00* Test Item Value Reference Range Interpretation Comments Body Fluid Glucose (test code = 2344-0) 120 [facility] AntonioCHEST 2 PLQHU8850-59-92 07:06:00 [place] [address] Patient Name: JOSHUA CACERES MR #: [id number] : 1960 Age/Sex: 57/M Req #: [id number] Adm Physician: DILLAN FAUSTIN MD Ordered by: MESERET MORE MD Report #: [id number] Location: MED/SURG Room/Bed: [facility] Procedure: [id number] DX/CHEST 2 VIEWS Exam Date: 06/19/18 Exam [...] pulmonary venous congestion. Signed by: Dr. Ken rAagon M.D. on 06/19/2018 7:09 AM Dictat ed By: KEN ARAGON MD 8 Transcribed By: LOREE on 06/19/18708 COPY TO: MESERET MORE MD Lactate Lfjfmrzgiokys8428-27-01 06:44:00* Test Item Value Reference Range Interpretation Comments Lactate Dehydrogenase (test code = 536737744) 226 125-220 H [facility] AntonioLawiate Pdxvbvyimyyip9888-79-57 06:44:00 * Test Item Value Reference Range Interpretation Comments Lactate Dehydrogenase (test code = 020281089) 226 125-220 H [facility] Pcjkbggebanyp8522-57-50 06:44:00 * Test Item Value Reference Range Interpretation Comments Lactate Dehydrogenase (test code = 179680566) 226 125-220 H [facility] AntonioLawiate Oewhfykfhhhix8826-26-29 06:44:00 * Test Item Value Reference Range Interpretation Comments Lactate Dehydrogenase (test code = 269913226) 226 125-220 H [facility] B Surface Antibody, Quant 2018-06-19 06:23:00* Test Item Value Reference Range Interpretation Comments Hepatitis B Surface Antibody, Quant (test code = 5194-6) <3.1 Immunity>9.9 L Status of Immunity Anti-HBs Level Inconsistent with Immunity 0.0 - 9.9Consistent with Immunity >9.9[facility] B Core Total Ljocnzng2632-66-32 06:23:00* Test Item Value Reference Range Interpretation Comments Hepatitis B Core Total Antibody (test code = 51166-6) Negative Negative [facility] B Surface Lqznwqw1529-32-94 06:23:00* Test Item Value Reference Range Interpretation Comments Hepatitis B Surface Antigen (test code = 5196-1) Negative Negat aye [facility] B Core IgM Wzlslucm6775-78-42 06:23:00* Test Item Value Reference Range Interpretation Comments Hepatitis B Core IgM Antibody (test code = 65795-0) Negative Ne gative Performed at: [address] [id number] Director: Alec Javier MD, Phone: [phone]'s Hospital of San AntonioHepatitis B Surface Antibody, Agnqk6665-19-27 06:23:00* Test Item Value Reference Range Interpretation Comments Hepatitis B Surface Antibody, Quant (test code = 5194-6) <3.1 Immunity>9.9 L Status of Immunity Anti-HBs Level Inconsistent with Immunity 0.0 - 9.9Consistent with Immunity >9.9[facility]at[facility] B Core Total Ckipyhrz2975-94-20 06:23:00* Test Item Value Reference Range Interpretation Comments Hepatitis B Core Total Antibody (test code = 23451-6) Negative Negative [facility] B Surface Swrasdy7931-84-96 06:23:00* Test Item Value Reference Range Interpretation Comments Hepatitis B Surface Antigen (test code = 5196-1) Negative Negat aye [facility] B Core IgM Suvxvite9102-24-21 06:23:00* Test Item Value Reference Range Interpretation Comments Hepatitis B Core IgM Antibody (test code = 14316-9) Negative Ne gative Performed at: [address] [id number] Director: Alec Javier MD, Phone: [phone]'s Hospital of San AntonioCT CHEST XJ9380-52-25 18:01:00 [place] [address] Patient Name: JOSHUA CACERES MR #: [id number] : 1960 Age/Sex: 57/M Req #: [id number] Adm Physician: DILLAN FAUSTIN MD Ordered by: DILLAN FAUSTIN MD Report #: [id number] Location: MED/SURG Room/Bed: 112 Procedure: [id number] CT/CT CHEST W O Exam Date: Exam [...] on 06/18/181824 COPY TO: DILLAN FAUSTIN MD Ferritin 2018-06-18 17:05:00* Test Item Value Reference Range Interpretation Comments Ferritin (test code = 2276-4) 38.90 21.81-274.66 [facility] AntonioFerritin2019-02-19 17:05:00* Test Item Value Reference Range Interpretation Comments Ferritin (test code = 2276-4) 38.90 21.81-274.66 [facility] AntonioFerritin2019-02-19 17:05:00* Test Item Value Reference Range Interpretation Comments Ferritin (test code = 2276-4) 38.90 21.81-274.66 [facility] AntonioFerritin2019-02-19 17:05:00* Test Item Value Reference Range Interpretation Comments Ferritin (test code = 2276-4) 38.90 21.81-274.66 [facility] AntonioIron Rdnit7472-45-62 16:52:00* Test Item Value Reference Range Interpretation Comments Iron Level (test code = 2498-4) 17 65-175 L [facility] AntonioTotal Iron Binding Jezvdhky4646-45-69 16:52:00* Test Item Value Reference Range Interpretation Comments Total Iron Binding Capacity (test code = 2500-7) 309 261-4 78 [facility] AntonioPercent Iron Urfqtkixok9836-92-53 16:52:00* Test Item Value Reference Range Interpretation Comments Percent Iron Saturation (test code = 2502-3) 6 15-50 L [facility] AntonioTransferrin2019-02-19 16:52:00* Test Item Value Reference Range Interpretation Comments Transferrin (test code = 3034-6) 221 174-364 [facility] LXE0545-84-30 14:38:00 [place] [address] [place] [address] Patient Name: JOSHUA CACERES MR #: [id number] : 1960 Age/Sex: 57/M Req #: [id number] Adm Physician: DILLAN FAUSTIN MD Ordered by: SHELLY HOOPER MD Report #: [id number] Location: MED/SURG Room/Bed: [facility] Procedure: [id number] IR/ SPECIAL PROCEDURE IN [employer] SPREADER Exam Date: Exam Time: REPORT STATUS: Signed [...] OROZCO MD 110 Transcribed By: LOREE on 06/20/181100 COPY TO: SHELLY HOOPER MD IR TWKLWZM8064-59-22 14:38:00 [facility] [place] [address] Patient Name: JOSHUA CACERES MR #: [id number] : 1960 Age/Sex: 57/M Req #: [id number] [facility] Physician: DILLAN FAUSTIN MD Ordered by: SHELLY HOOPER MD Report #: [id number] Location: MED/SURG Room/Bed: [facility] Procedure: [id number] DX/ IR CONSULT Exam Date: Exam Time: [...] Under continuous sonographic guidance, the right internal medicine veterinary technician al jugular vein was accessed using a [...] on 06/20/181100 COPY TO: SHELLY HOOPER MD Ionized Higwlwf9036-23-27 05:29:00* Test Item Value Reference Range Interpretation Comments Ionized Calcium (test code = 06914-5) 0.9 1.09-1.30 L [facility] AntonioIonjfk medical center Dpvwpsm8774-44-88 05:29:00* Test Item Value Reference Range Interpretation Comments Ionized Calcium (test code = 79875-6) 0.9 1.09-1.30 L [facility] Stzjunn5426-69-72 05:29:00* Test Item Value Reference Range Interpretation Comments Ionized Calcium (test code = 11935-4) 0.9 1.09-1.30 L [facility] Rzferod2146-32-86 05:29:00* Test Item Value Reference Range Interpretation Comments Ionized Calcium (test code = 61274-0) 0.9 1.09-1.30 L [facility] AntonioB-Type Natriuretic Byfwktn2903-34-89 22:55:00* Test Item Value Reference Range Interpretation Comments B-Type Natriuretic Peptide (test code = 84158-2) > 5000.0 0-100 H [facility] AntonioCreatine Kinase CT3582-37-32 22:37:00* Test Item Value Reference Range Interpretation Comments Creatine Kinase MB (test code = 67334-7) 7.30 0-5.0 H [facility] AntonioTroponin M5165-09-93 22:37:00* Test Item Value Reference Range Interpretation Comments Troponin I (test code = RJO4326) 0.065 0-0.300 [facility] AntonioCreatine Iiivcr0616-09-37 22:28:00* Test Item Value Reference Range Interpretation Comments Creatine Kinase (test code = 2157-6) 156 30-200 [facility] AntonioCHEST SINGLE (PORTABLE)2018-06-17 20:40:00 [place] [address] Patient Name: JOSHUA CACERES MR #: [id number] : 1960 Age/Sex: 57/M Req #: [id number] Adm Physician: Ordered by: DANYELLE ALVAREZ MANAGER SKILLED Report #: [id number] Location: ER Room/Bed: Procedure: [id number] DX/SRIDEVI ST SINGLE (PORTABLE) Exam Date: 06/17/18 [...] LOREE on 06/17/182039 COPY TO: DANYELLE ALVAREZ MANAGER SKILLED Urine UBS8750-54-38 19:30:00* Test Item Value Reference Range Interpretation Comments Urine WBC (test code = 5821-4) NONE 0-5 [facility] AntonioUrine GMP1801-70-60 19:30:00* Test Item Value Reference Range Interpretation Comments Urine RBC (test code = 13570-5) 11-20 0-5 H [facility] AntonioUrine Cjrjzzlh9794-92-32 19:30:00* Test Item Value Reference Range Interpretation Comments Urine Bacteria (test code = 20412-3) MODERATE NONE H [facility] AntonioUrine Epithelial Cbljh7495-59-93 19:30:00 * Test Item Value Reference Range Interpretation Comments Urine Epithelial Cells (test code = 79888-9) MODERATE NONE [facility] Amorphous Qyqufjiu8539-98-89 19:30:00* Test Item Value Reference Range Interpretation Comments Urine Amorphous Sediment (test code = 8246-1) MANY FEW H [facility] AntonioUrine SOR8566-31-46 19:30:00* Test Item Value Reference Range Interpretation Comments Urine WBC (test code = 5821-4) NONE 0-5 [facility] AntonioUrine WOC2099-04-21 19:30:00* Test Item Value Reference Range Interpretation Comments Urine RBC (test code = 44765-1) 11-20 0-5 H [facility] Soutgdvg1246-00-16 19:30:00* Test Item Value Reference Range Interpretation Comments Urine Bacteria (test code = 40058-8) MODERATE NONE H [facility] Epithelial Tceqd2933-63-37 19:30:00 * Test Item Value Reference Range Interpretation Comments Urine Epithelial Cells (test code = 32426-2) MODERATE NONE [facility] Amorphous Jkowlcuz4469-35-37 19:30:00* Test Item Value Reference Range Interpretation Comments Urine Amorphous Sediment (test code = 8246-1) MANY FEW H [facility] Amorphous Kqdlaudm8171-16-20 19:30:00* Test Item Value Reference Range Interpretation Comments Urine Amorphous Sediment (test code = 8246-1) MANY FEW H [facility] Amorphous Bwxvhyrc8925-14-27 19:30:00* Test Item Value Reference Range Interpretation Comments Urine Amorphous Sediment (test code = 8246-1) MANY FEW H [facility] Xzdfn7578-73-69 19:12:00* Test Item Value Reference Range Interpretation Comments Urine Color (test code = 5778-6) YELLOW YELLOW [facility] Tlgduzv4311-52-39 19:12:00* Test Item Value Reference Range Interpretation Comments Urine Clarity (test code = 68368-0) SL CLOUDY CLEAR H [facility] Specific Gelumsx8034-57-84 19:12:00 * Test Item Value Reference Range Interpretation Comments Urine Specific [place] (test code = 5811-5) 1.025 1.010-1.02 5 [facility] AntonioUrine rV1975-81-99 19:12:00* Test Item Value Reference Range Interpretation Comments Urine pH (test code = 99211-3) 5 5-7 [facility] Leukocyte Kydrbikw7921-46-56 19:12:00* Test Item Value Reference Range Interpretation Comments Urine Leukocyte Esterase (test code = 5799-2) NEGATIVE NEGATIVE [facility] Olnonmr4497-73-39 19:12:00* Test Item Value Reference Range Interpretation Comments Urine Nitrite (test code = 56555-7) NEGATIVE NEGATIVE [facility] Yusywzm8652-77-21 19:12:00* Test Item Value Reference Range Interpretation Comments Urine Protein (test code = 5804-0) 2+ NEGATIVE H [facility] Glucose (UA)2018-06-17 19:12:00* Test Item Value Reference Range Interpretation Comments Urine Glucose (UA) (test code = 2349-9) NEGATIVE NEGATIVE [facility] Sbnbaju5340-76-84 19:12:00* Test Item Value Reference Range Interpretation Comments Urine Ketones (test code = 48634-0) NEGATIVE NEGATIVE [facility] Hgaatqdzsmkv4469-09-76 19:12:00* Test Item Value Reference Range Interpretation Comments Urine Urobilinogen (test code = 36507-8) 0.2 0.2-1 [facility] Vsmmyybwm4108-60-16 19:12:00* Test Item Value Reference Range Interpretation Comments Urine Bilirubin (test code = 1978-6) NEGATIVE NEGATIVE [facility] Anhop7961-25-45 19:12:00* Test Item Value Reference Range Interpretation Comments Urine Blood (test code = 26444-5) 1+ NEGATIVE H [facility] Jppqw7987-82-29 19:12:00* Test Item Value Reference Range Interpretation Comments Urine Color (test code = 5778-6) YELLOW YELLOW [facility] AntonioU[facility] Nobabgd3086-80-87 19:12:00* Test Item Value Reference Range Interpretation Comments Urine Clarity (test code = 04865-5) SL CLOUDY CLEAR H [facility] AntonioUrine Specific Xpyuuiy3683-86-82 19:12:00 * Test Item Value Reference Range Interpretation Comments Urine Specific [place] (test code = 5811-5) 1.025 1.010-1.02 5 [facility] AntonioUrine pI2256-79-08 19:12:00* Test Item Value Reference Range Interpretation Comments Urine pH (test code = 86703-1) 5 5-7 [facility] Antonio[facility] Leukocyte Kagdcsnp2657-65-09 19:12:00* Test Item Value Reference Range Interpretation Comments Urine Leukocyte Esterase (test code = 5799-2) NEGATIVE NEGATIVE [facility] Antonio[facility] Kqwmlvc4281-53-07 19:12:00* Test Item Value Reference Range Interpretation Comments Urine Nitrite (test code = 36570-9) NEGATIVE NEGATIVE [facility] AntonioU[facility] Wgcgcra4421-40-85 19:12:00* Test Item Value Reference Range Interpretation Comments Urine Protein (test code = 5804-0) 2+ NEGATIVE H [facility] AntonioUrine Glucose (UA)2018-06-17 19:12:00* Test Item Value Reference Range Interpretation Comments Urine Glucose (UA) (test code = 2349-9) NEGATIVE NEGATIVE [facility] Crvasoi5676-52-25 19:12:00* Test Item Value Reference Range Interpretation Comments Urine Ketones (test code = 07816-4) NEGATIVE NEGATIVE [facility] Rgqpohwmffqk0344-26-04 19:12:00* Test Item Value Reference Range Interpretation Comments Urine Urobilinogen (test code = 93332-6) 0.2 0.2-1 [facility] Antonio[facility] Ebpjqjoit1744-61-35 19:12:00* Test Item Value Reference Range Interpretation Comments Urine Bilirubin (test code = 1978-6) NEGATIVE NEGATIVE [facility] AntonioU[facility] Lxzun1105-02-89 19:12:00* Test Item Value Reference Range Interpretation Comments Urine Blood (test code = 84700-2) 1+ NEGATIVE H [facility]
[2019-09-29 11:32] LABS: BASOPHILS # (AUTO) 0.1 (0.0-0.1); BASOPHILS % 0.6 % (0.0-1.0); EOSINOPHILS # (AUTO) 0.4 (0.0-0.4); EOSINOPHILS % 4.1 % (0.0-6.0); HEMATOCRIT 31.5 % (38.2-49.6); HEMOGLOBIN 10.1 g/dL (14.0-18.0); LYMPHOCYTES # (AUTO) 1.2 (1.0-3.2); LYMPHOCYTES % 12.1 % (18.0-39.1); MEAN CORPUSCULAR HEMOGLOBIN 28.3 pg (28-32); MEAN CORPUSCULAR HGB CONC 32.1 g/dL (31-35); MEAN CORPUSCULAR VOLUME 88.2 fL (81-99); MONOCYTES # (AUTO) 0.8 (0.2-0.8); MONOCYTES % 7.9 % (4.4-11.3); NEUTROPHILS # (AUTO) 7.4 (2.1-6.9); NEUTROPHILS % 74.9 % (38.7-80.0); PLATELET COUNT 213 x10e3/uL (140-360); RED BLOOD COUNT 3.57 x10e6/uL (4.3-5.7); RED CELL DISTRIBUTION WIDTH 17.2 % (11.7-14.4)
[2019-09-29 12:00] LABS: CREATINE KINASE MB 6.4 ng/mL (0-5.0)
[2019-09-29 12:01] LABS: ALBUMIN 2.9 g/dL (3.5-5.0); ALBUMIN/GLOBULIN RATIO 0.5 (0.8-2.0); ANION GAP 23.4 mmol/L (8-16); CALCIUM 9.3 mg/dL (8.4-10.2); CREATININE, SERUM 7.95 mg/dL (0.72-1.25)
[2019-09-29 12:10] LABS: POTASSIUM 6.4 mmol/L (3.5-5.1)
--- NOTE | 2019-09-29 12:15 | Diagnostic Imaging Report ---
EXAM: CHEST SINGLE (PORTABLE) DATE: 09/29/2019 11:31 AM INDICATION: Shortness of breath COMPARISON: 09/25/2019 FINDINGS: The trachea is midline. There are stable appearing right basilar opacities, unchanged from prior examinations. There is no evidence for new large focal consolidation or pneumothorax. Stable small right greater than left-sided pleural effusions again noted. The cardiomediastinal silhouette is stable in appearance. No acute osseous abnormalities identified. IMPRESSION: No significant interval change from 09/25/2019. Unchanged right basilar opacities which may reflect atelectasis. An underlying airspace process cannot be entirely excluded. Small right greater than left-sided pleural effusions. Signed by: Dr. Idris Gore MD on 09/29/2019 12:12 PM
[2019-09-29] MEDS ORDERED: SOD POLYSTYRENE SULFONATE SUSP 15 GM/60 ML BTL PO ONE (12:45)
[2019-09-29] MEDS ORDERED: CALCIUM GLUCONATE 10% INJ 4.65 MEQ in SODIUM CHLORIDE 0.9% 50ML 50 ML IV ONE (13:10)
--- NOTE | 2019-09-29 14:38 | Emergency Department Note ---
History of Present Illnes History of Present Illness Chief Complaint: Respiratory History of Present Illness This is a 58 year old male brought to the ED by EMS secondary shortness of breath. Patient was scheduled to get dialysis, however, EMS stated he just didn't look like they didn't feel comfortable transferring him to his dialysis session. Chief Complaint Comment Patient in from [facility] via EMS with shortness of breath. Patient was reportedly picked up from [facility] by EMS to go to his scheduled dialysis today. Per EMS the dialysis charge nurse saw the patient on arrival and instructed EMS to bring the patient here for evaluation. Patient was recently admitted to [facility] on September 23 and discharged September 25. Patient states that he started feeling bad on Sunday but got worse this morning. Historian: Associate Director Of Biostatistics/EMS Arrival Mode: [facility] Attendant Required: No Onset (how long ago): unknown Timing of current episode: constant Progression: worsening Past Medical/Family History Physician Review I have reviewed the patient's past medical and family history. Any updates have been documented here. Past Medical History Recent Fever: No Clinical Suspicion of Infectio: No New/Unexplained Change in Ment: No Past Medical History: Hypertension, Diabetes, ESRD Other Medical History: PLEURAL EFFUSION ANEMIA ESRD SOB Past Surgical History: None Other Surgery: lt arm fistula DECORTICATION Social History Smoking Cessation: Former smoker Alcohol Use: Occasional Any Illegal Drug Use: No TB Exposure/Symptoms: No Physically hurt or threatened: No Other Last Tetanus: UNKNOWN Any Pre-Existing Lines (PICC,: Yes (AV fistula to left forear) Is patient up to date on immun: Yes Last Flu: UTD Last Pneumovax: UTD Review of Systems Review of Systems Constitutional: no symptoms EENTM: no symptoms Cardiovascular: no symptoms Respiratory: as per HPI, dyspnea, dyspnea on exertion Gastrointestinal: no symptoms Genitourinary: no symptoms Musculoskeletal: no symptoms Neurological: no symptoms Psychological: no symptoms Endocrine: no symptoms Hematological/Lymphatic: no symptoms Review of other systems All other systems reviewed and negative. Physical Exam Related Data Allergies: Coded Allergies: No Known Allergies (Unverified , 08/18/19) Triage Vital Signs Vital Signs Date Time Temp Pulse Resp B/P (MAP) Pulse Ox O2 Delivery O2 Flow Rate FiO2 09/29/19 11:08 97.9 80 27 188/71 100 Vital signs reviewed: Yes Physical Exam CONSTITUTIONAL Constitutional: cachectic, ill appearing HENT HENT: normocephalic, atraumatic, oropharynx clear/moist, nose normal HENT L/R: left ext ear normal, right ext ear normal EYES Eyes: PERRL, conjunctivae normal NECK Neck: ROM normal PULMONARY Pulmonary: effort normal, respiratory distress, rales, rhonchi, other CARDIOVASCULAR Cardiovascular: regular rhythm, heart sounds normal, capillary refill normal, normal rate GASTROINTESTINAL Abdominal: soft, nontender, bowel sounds normal GENITOURINARY Genitourinary: exam deferred SKIN Skin: warm, dry MUSCULOSKELETAL Musculoskeletal: ROM normal NEUROLOGICAL Neurological: alert, oriented x 3, no gross motor or sensory deficits PSYCHOLOGICAL Psychological: mood/affect normal, judgement normal Results Laboratory Result Diagram: 09/29/19 1054 09/29/19 1115 Laboratory Laboratory Tests Test 09/29/19 11:15 09/29/19 10:54 Sodium Level 136 mmol/L (136-145) Potassium Level 6.4 mmol/L (3.5-5.1) Chloride Level 98 mmol/L (98-107) Carbon Dioxide Level 21 mmol/L (22-29) Anion Gap 23.4 mmol/L (8-16) Blood Urea Nitrogen 116 mg/dL (7-26) Creatinine 7.95 mg/dL (0.72-1.25) Estimat Glomerular Filtration Rate 7 ML/MIN (60-) BUN/Creatinine Ratio 15 (6-25) Glucose Level 201 mg/dL (74-118) Calcium Level 9.3 mg/dL (8.4-10.2) Total Bilirubin 0.6 mg/dL (0.2-1.2) Aspartate Amino Transf (AST/SGOT) 26 IU/L (5-34) Alanine Aminotransferase (ALT/SGPT) 34 IU/L (0-55) Alkaline Phosphatase 257 IU/L (40-150) Creatine Kinase 56 IU/L (30-200) Creatine Kinase MB 6.40 ng/mL (0-5.0) Troponin I 0.076 ng/mL (0-0.300) B-Type Natriuretic Peptide > 5000.0 pg/mL (0-100) Total Protein 8.5 g/dL (6.5-8.1) Albumin 2.9 g/dL (3.5-5.0) Globulin 5.6 g/dL (2.3-3.5) Albumin/Globulin Ratio 0.5 (0.8-2.0) White Blood Count 9.84 x10e3/uL (4.8-10.8) Red Blood Count 3.57 x10e6/uL (4.3-5.7) Hemoglobin 10.1 g/dL (14.0-18.0) Hematocrit 31.5 % (38.2-49.6) Mean Corpuscular Volume 88.2 fL (81-99) Mean Corpuscular Hemoglobin 28.3 pg (28-32) Mean Corpuscular Hemoglobin Concent 32.1 g/dL (31-35) Red Cell Distribution Width 17.2 % (11.7-14.4) Platelet Count 213 x10e3/uL (140-360) Neutrophils (%) (Auto) 74.9 % (38.7-80.0) Lymphocytes (%) (Auto) 12.1 % (18.0-39.1) Monocytes (%) (Auto) 7.9 % (4.4-11.3) Eosinophils (%) (Auto) 4.1 % (0.0-6.0) Basophils (%) (Auto) 0.6 % (0.0-1.0) Neutrophils # (Auto) 7.4 (2.1-6.9) Lymphocytes # (Auto) 1.2 (1.0-3.2) Monocytes # (Auto) 0.8 (0.2-0.8) Eosinophils # (Auto) 0.4 (0.0-0.4) Basophils # (Auto) 0.1 (0.0-0.1) Absolute Immature Granulocyte (auto 0.04 x10e3/uL (0-0.1) Lab results reviewed: Yes Laboratory comments Elevated potassium treated with Kayexalate Imaging Imaging results reviewed: Yes Impressions IMPRESSION: No significant interval change from 09/25/2019. Unchanged right basilar opacities which may reflect atelectasis. An underlying airspace process cannot be entirely excluded. Small right greater than left-sided pleural effusions. Diagnostics Tests Diagnostic test(s) reviewed: Yes Critical Care Time Subsequent provider I assumed direction of critical care for this patient from another provider of my specialty. Assessment & Plan Reassessment Reassessment 58-year-old male brought to the ED with complaints of dyspnea secondary to fluid overload due to missing dialysis There is no focal source of infection at time of admission, patient's vital signs are attributed his fluid overload status. Emergent dialysis arranged in the ED and patient admitted for further workup per primary medicine team. Assessment & Plan Final Impression: (1) Pulmonary edema Assessment & Plan Emergency dialysis CBC, CMP Depart Disposition: ADMITTED Last Vital Signs Date Time Temp Pulse Resp B/P (MAP) Pulse Ox O2 Delivery O2 Flow Rate FiO2 09/29/19 13:35 77 19 193/77 100 09/29/19 11:08 97.9 Home Meds Reported Medications Tramadol Hcl* (ULTRAM 50MG*) 50 Mg Tab, 50 MG PO Q8H PRN for MODERATE PAIN (4- 6), TAB 08/12/19 Tizanidine Hcl (TIZANIDINE HCL) 4 Mg Tablet, 4 MG PO HS, TAB 08/12/19 Nifedipine (PROCARDIA XL) 30 Mg Tab.er.24, 30 MG PO Q12H, #30 TAB 08/12/19 Metoprolol Succinate (METOPROLOL SUCCINATE) 50 Mg Tab.er.24h, 50 MG PO DAILY, MG 08/12/19 Megestrol Acetate (MEGESTROL ACETATE) 400 Mg/10 Ml Oral.susp, 400 MG PO DAILY, EA 08/12/19 Losartan Potassium (LOSARTAN POTASSIUM) 100 Mg Tablet, 100 MG PO DAILY, TAB 08/12/19 [Lidocaine Patch] No Conflict Check, 4 % TOP DAILY 08/12/19 Clonidine Hcl (CLONIDINE HCL) 0.1 Mg Tablet, 1 TAB PO TID, #60 TAB 08/12/19 Acetaminophen With Codeine (TYLENOL WITH CODEINE #3 TABLET) 1 Each Tablet, 300 MG PO Q6H PRN for MODERATE PAIN (4-6), TAB 08/12/19 Medications in the ED Sodium Polystyrene Sulfonate 30 gm ONCE ONCE PO ; Start 09/29/19 at 12:45; Stop 09/29/19 at 12:46 Calcium Gluconate 4.65 meq/Sodium Chloride 60 ml @ 60 mls/hr ONCE ONCE IV ; Start 09/29/19 at 13:10; Stop 09/29/19 at 14:09 SOUMYA VEGA DO Sep 29, 2019 14:38
--- OUTSIDE RECORDS SUMMARY | 2019-09-29 14:42 | XMS REPORT | Clinical Summary ---
Author Author [facility] Organization [facility] Address Unknown Phone Unavailable Care Team Providers Care Boom Tender Name Role Phone Eber Bryant MD PCP [...] [address] [place] (Home) [place] [address] [address] Third Self 1960 [address] [employer] (Home) [place] [address] Liability Advance Directives For more information, please contact: [phone] Patient Log Hauler Explanation Type Date Recorded Advance Directives, Living Will and Medical Power of Python Consultant Date Inactivated Comments Code Status Date Activated 10/03/2015 5:05 PM Full Code 09/24/2015 11:04 PM Code Status decision reached by: Patient
--- OUTSIDE RECORDS SUMMARY | 2019-09-29 14:42 | XMS REPORT | Clinical Summary ---
Author Author [facility] Address Unknown Phone Unavailable Care Team Providers Care Senior Web Analyst Name Role Phone PCP Unavailable Allergies No [...] other type with com plication, unspecified whether heel buffer insulin use; Anemia of renal disease; Hypertensive renal disease; Pre-transplant evaluation for chronic kidney disease 03/06/2019 Hospital Radiology Encounter Mireille Timmons MD Diabetes mellitus of other type with com plication, unspecified whether senior living insulin use; Anemia of renal disease; Hypertensive renal disease; Pre-transplant evaluation for chronic kidney disease 03/06/2019 Hospital Cardiology Encounter Mireille Timmons MD Diabetes mellitus of other type with com plication, unspecified whether senior living insulin use; Anemia of renal disease; Hypertensive renal disease; Pre-transplant evaluation for chronic kidney disease 03/06/2019 Hospital Cardiology Encounter Mireille Timmons MD Diabetes mellitus of other type with com plication, unspecified whether senior living insulin use; Anemia of renal disease; Hypertensive renal disease; Pre-transplant evaluation for chronic kidney disease 03/06/2019 Orders Only Mireille Harris MD 03/06/2019 Outside Orders Patti Huerta RN Anemia of renal disease (Primary Dx); Hypertensive renal disease; Pre-transplant evaluation for chronic kidney disease 03/05/2019 Orders Only Transplant Mireille Timmons MD Diabetes mellitus of other type with com plication, unspecified whether heel buffer insulin use (HCC); Anemia of renal disease; Hypertensive renal disease; Pre-transplant evaluation for chronic kidney disease 12/17/2018 Hospital Encounter Mireille Timmons MD Diabetes mellitus of other type with com plication, unspecified whether heel buffer insulin use (HCC); Anemia of renal disease; Hypertensive renal disease; Pre-transplant evaluation for chronic kidney disease 12/17/2018 Orders Only Mireille Harris MD Labrador, Florencia P, RN Diabetes mellitus of other type with com plication, unspecified whether heel buffer insulin use (HCC) (Primary Dx); Anemia of renal disease; Hypertensive renal disease; Pre-transplant evaluation for chronic kidney disease 12/17/2018 Office Visit Transplant Mireille Timmons MD 12/17/2018 Outside Orders Linsey Pryor 10/29/2018 Documentation Transplant Lisney Pryor Appointment (Called patient's to sc hedule [...] voicemail message and call back number in Vietnamese.) 10/29/2018 Telephone Transplant Linsey Pryor 09/30/2018 Documentation [...] Taken Vital Sign Reading 06/25/2019 4:25 PM RUBBER GOODS REPAIRER Blood Pressure 178/87 06/25/2019 4:25 PM RU[employer]ER GOODS REPAIRER Pulse 75 03/06/2019 12:43 PM [employer]ER GOODS REPAIRER Temperature 36.9 C (98.5 F) 03/06/2019 12:43 PM RUBBER GOODS REPAIRER Respiratory Rate 16 - Oxygen Saturation - - Inhaled Oxygen - Concentration 03/06/2019 12:43 PM RUBBER GOODS REPAIRER Weight 59.2 kg (130 lb 8 oz) 03/06/2019 12:43 PM RUBBER GOODS REPAIRER Height 174 cm (5' 8.5") 03/06/2019 12:43 PM RU[employer]ER GOODS REPAIRER Body Mass Index 19.55 Plan of Treatment [...] Routine 07/01/2019 Pleural effus ion 1:23 PM RUBBER GOODS REPAIRER XR CHEST 2 VIEWS STAT 07/01/2019 Surgical foll ow-up care 11:56 AM RU[employer]ER GOODS REPAIRER TRANSFUSION SERVICE 03/07/2019 REPORT - SCAN 5:54 PM RU[employer]ER GOODS REPAIRER PERIPHERAL VASCULAR 03/06/2019 REPORT - SCAN 9:24 PM RU[employer]ER GOODS REPAIRER US ABDOMEN COMPLETE Routine 03/06/2019 Diabetes m ellitus of 11:40 AM RU[employer]ER GOODS REPAIRER other type with complication, unspecified whether heel buffer insulin use Anemia of renal disease Hypertensive renal disease Pre-transplant evaluation for chronic kidney disease STRESS ECHO WITH CONTRAST Routine 03/06/2019 Diab etes mellitus of & TRACING 8:58 AM [employer]ER GOODS REPAIRER other type with complication, unspecified whether senior living insulin use Anemia of renal disease Hypertensive renal disease Pre-transplant evaluation for chronic kidney disease ECG 12-LEAD Routine 03/06/2019 Diabetes mellit us of 7:30 AM RU[employer]ER GOODS REPAIRER other type with complication, unspecified whether senior living insulin use Anemia of renal disease Hypertensive renal disease Pre-transplant evaluation for chronic kidney disease BLOOD TYPING, AUTOMATED Routine 03/06/2019 Diabet es mellitus of 6:58 AM RU[employer]ER GOODS REPAIRER other type with complication, unspecified whether senior living insulin use Anemia of renal disease Hypertensive renal disease Pre-transplant evaluation for chronic kidney disease PSA Routine 03/06/2019 Anemia of renal disease 6:58 AM RU[employer]ER [employer] REPAIRER Hypertensive renal disease Pre-transplant evaluation for chronic kidney disease LIPID PANEL Routine 03/06/2019 Diabetes mellit us of 6:58 AM RU[employer]ER GOODS REPAIRER other type with complication, unspecified whether senior living insulin use Anemia of renal disease Hypertensive renal disease Pre-transplant evaluation for chronic kidney disease TRANSFUSION SERVICE 12/18/2018 REPORT - SCAN 6:04 PM CDT XR CHEST 2 VIEWS Routine 12/17/2018 Diabetes paramjit itus of 12:09 PM CDT other type with complication, unspecified whether senior living insulin use (HCC) Anemia of renal disease Hypertensive renal disease Pre-transplant evaluation for chronic kidney disease T SPOT TB Routine 12/17/2018 Diabetes mellit us of 11:23 AM CDT other type with complication, unspecified whether senior living insulin use (HCC) Anemia of renal disease Hypertensive renal disease Pre-transplant evaluation for chronic kidney disease HLA TYPING CI Routine 12/17/2018 Diabetes mellit us of 11:23 AM CDT other type with complication, unspecified whether senior living insulin use (HCC) Anemia of renal disease Hypertensive renal disease Pre-transplant evaluation for chronic kidney disease HLA TYPING CII Routine 12/17/2018 Diabetes mellit us of 11:23 AM CDT other type with complication, unspecified whether senior living insulin use (HCC) Anemia of renal disease Hypertensive renal disease Pre-transplant evaluation for chronic kidney disease CBC W/PLT COUNT & AUTO Routine 12/17/2018 Diabete s mellitus of DIFFERENTIAL 11:22 AM CDT other type with complication, unspecified whether heel buffer insulin use (HCC) Anemia of renal disease Hypertensive renal disease Pre-transplant evaluation for chronic kidney disease DIRECT AHG (BETO)/DIRECT Routine 12/17/2018 Diabet es mellitus of ROBB 11:22 AM CDT other type with complication, unspecified whether senior living insulin use (HCC) Anemia of renal disease Hypertensive renal disease Pre-transplant evaluation for chronic kidney disease TYPE AND SCREEN, Routine 12/17/2018 Diabetes paramjit itus of AUTOMATED 11:22 AM CDT other type with complication, unspecified whether heel buffer insulin use (HCC) Anemia of renal disease Hypertensive renal disease Pre-transplant evaluation for chronic kidney disease AB SPECIFICITY CLASS II Routine 12/17/2018 Diabet es mellitus of 11:22 AM CDT other type with complication, unspecified whether heel buffer insulin use (HCC) Anemia of renal disease Hypertensive renal disease Pre-transplant evaluation for chronic kidney disease FLOW PRA CLASS II WITH Routine 12/17/2018 Diabete s mellitus of REFLEX TO ANTIBODY 11:22 AM CDT other type with SPECIFICITY complication, unspecified whether senior living insulin use (HCC) Anemia of renal disease Hypertensive renal disease Pre-transplant evaluation for chronic kidney disease HEMOGLOBIN A1C Routine 12/17/2018 Diabetes mellit us of 11:22 AM CDT other type with complication, unspecified whether senior living insulin use (HCC) Anemia of renal disease Hypertensive renal disease Pre-transplant evaluation for chronic kidney disease VARICELLA ZOSTER Routine 12/17/2018 Diabetes paramjit itus of ANTIBODY, IGG 11:22 AM CDT other type with complication, unspecified whether senior living insulin use (HCC) Anemia of renal disease Hypertensive renal disease Pre-transplant evaluation for chronic kidney disease URIC ACID Routine 12/17/2018 Diabetes mellit us of 11:22 AM CDT other type with complication, unspecified whether senior living insulin use (HCC) Anemia of renal disease Hypertensive renal disease Pre-transplant evaluation for chronic kidney disease RPR Routine 12/17/2018 Diabetes mellit us of 11:22 AM CDT other type with complication, unspecified whether senior living insulin use (HCC) Anemia of renal disease Hypertensive renal disease Pre-transplant evaluation for chronic kidney disease PT/APTT Routine 12/17/2018 Diabetes mellit us of 11:22 AM CDT other type with complication, unspecified whether heel buffer insulin use (HCC) Anemia of renal disease Hypertensive renal disease Pre-transplant evaluation for chronic kidney disease PTH, INTACT Routine 12/17/2018 Diabetes mellit us of 11:22 AM CDT other type with complication, unspecified whether senior living insulin use (HCC) Anemia of renal disease Hypertensive renal disease Pre-transplant evaluation for chronic kidney disease PHOSPHORUS Routine 12/17/2018 Diabetes mellit us of 11:22 AM CDT other type with complication, unspecified whether senior living insulin use (HCC) Anemia of renal disease Hypertensive renal disease Pre-transplant evaluation for chronic kidney disease LACTATE DEHYDROGENASE Routine 12/17/2018 Diabetes mellitus of (LDH) 11:22 AM CDT other type with complication, unspecified whether senior living insulin use (HCC) Anemia of renal disease Hypertensive renal disease Pre-transplant evaluation for chronic kidney disease HIV-1 ANTIGEN WITH Routine 12/17/2018 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 11:22 AM CDT other type with complication, unspecified whether senior living insulin use (HCC) Anemia of renal disease Hypertensive renal disease Pre-transplant evaluation for chronic kidney disease HEPATITIS C ANTIBODY Routine 12/17/2018 Diabetes mellitus of 11:22 AM CDT other type with complication, unspecified whether senior living insulin use (HCC) Anemia of renal disease Hypertensive renal disease Pre-transplant evaluation for chronic kidney disease HEPATITIS B CORE Routine 12/17/2018 Diabetes paramjit itus of ANTIBODY, IGM 11:22 AM CDT other type with complication, unspecified whether heel buffer insulin use (HCC) Anemia of renal disease Hypertensive renal disease Pre-transplant evaluation for chronic kidney disease HEPATITIS B SURFACE Routine 12/17/2018 Diabetes m ellitus of ANTIGEN 11:22 AM CDT other type with complication, unspecified whether heel buffer insulin use (HCC) Anemia of renal disease Hypertensive renal disease Pre-transplant evaluation for chronic kidney disease HEPATITIS B SURFACE Routine 12/17/2018 Diabetes m ellitus of ANTIBODY 11:22 AM CDT other type with complication, unspecified whether heel buffer insulin use (HCC) Anemia of renal disease Hypertensive renal disease Pre-transplant evaluation for chronic kidney disease GAMMA GLUTAMYL Routine 12/17/2018 Diabetes mellit us of TRANSFERASE (GGT) 11:22 AM CDT other type with complication, unspecified whether heel buffer insulin use (HCC) Anemia of renal disease Hypertensive renal disease Pre-transplant evaluation for chronic kidney disease EBV ANTIBODY, IGM Routine 12/17/2018 Diabetes tyler litus of 11:22 AM CDT other type with complication, unspecified whether heel buffer insulin use (HCC) Anemia of renal disease Hypertensive renal disease Pre-transplant evaluation for chronic kidney disease EBV ANTIBODY, IGG Routine 12/17/2018 Diabetes tyler litus of 11:22 AM CDT other type with complication, unspecified whether heel buffer insulin use (HCC) Anemia of renal disease Hypertensive renal disease Pre-transplant evaluation for chronic kidney disease COMPREHENSIVE METABOLIC Routine 12/17/2018 Diabet es mellitus of PANEL 11:22 AM CDT other type with complication, unspecified whether heel buffer insulin use (HCC) Anemia of renal disease Hypertensive renal disease Pre-transplant evaluation for chronic kidney disease CYTOMEGALOVIRUS ANTIBODY, Routine 12/17/2018 Diab etes mellitus of IGM 11:22 AM CDT other type with complication, unspecified whether senior living insulin use (HCC) Anemia of renal disease Hypertensive renal disease Pre-transplant evaluation for chronic kidney disease CYTOMEGALOVIRUS ANTIBODY, Routine 12/17/2018 Diab etes mellitus of IGG 11:22 AM CDT other type with complication, unspecified whether heel buffer insulin use (HCC) Anemia of renal disease Hypertensive renal disease Pre-transplant evaluation for chronic kidney disease CBC W/PLT COUNT & AUTO Routine 12/17/2018 Diabete s mellitus of DIFFERENTIAL 11:22 AM CDT other type with complication, unspecified whether heel buffer insulin use (HCC) Anemia of renal disease Hypertensive renal disease Pre-transplant evaluation for chronic kidney disease FLOW PRA CLASS I WITH Routine 12/17/2018 Diabetes mellitus of REFLEX TO ANTIBODY 11:22 AM CDT other type with SPECIFICITY complication, unspecified whether heel buffer insulin use (HCC) Anemia of renal disease Hypertensive renal disease Pre-transplant evaluation for chronic kidney disease URINE CULTURE Routine 12/17/2018 Diabetes mellit us of 11:15 AM CDT other type with complication, unspecified whether heel buffer insulin use (HCC) Anemia of renal disease Hypertensive renal disease Pre-transplant evaluation for chronic kidney disease after 09/28/2018 Results * XR chest 2 views (07/01/2019 1:23 PM RU[employer]ER GOODS REPAIRER) Only the most recent of 3 results within the time period is included. Specimen Narrative Performed At FINAL REPORT [facility] INDICATION: removed chest tube COMPARISON: Earlier [...] Report Verified Date/Time: 0 13:56:42 Reading Location: [facility] Reading Room Procedure Note Interface, External Ris In - 07/01/2019 1:58 PM RUBBER GOODS REPAIRER FINAL REPORT INDICATION: removed chest tube COMPARISON: Earlier same day TECHNIQUE: Frontal and lateral views of the chest. FINDINGS: Lungs and pleura: Right greater than left effusion and adjacent compressive atelectasis, not significantly changed Heart and mediastinum: Normal heart size. Unremarkable mediastinal contours. Osseous structures: No acute abnormality. Additional findings: None. Signed: Briana Black MD Report Verified Date/Time: 07/01/2019 13:56:42 Reading Location: [facility] Rad[facility] Reading Room Performing Organization Address City/State/Zipcode Ph one Number [employer] RIS * TRANSFUSION SERVICE REPORT - SCAN (03/07/2019 5:54 PM RUBBER GOODS REPAIRER) Only the most recent of 2 results within the time period is included. Narrative Performed At This result has an attachment that is n ot available. * PERIPHERAL VASCULAR REPORT - SCAN (03/06/2019 9:24 PM RUBBER GOODS REPAIRER) Narrative Performed At This result has an attachment that is n ot available. * US abdomen complete (03/06/2019 11:40 AM RUBBER GOODS REPAIRER) Specimen Narrative Performed At FINAL REPORT [employer] TECHNIQUE: Grayscale ultrasound of the abdomen. INDICATION: [...] Report Verified Date/Time: 9 13:29:38 Reading Location: [address] Reading Room Procedure Note Interface, External Ris In - 03/06/2019 1:31 PM RUBBER GOODS REPAIRER FINAL REPORT TECHNIQUE: Grayscale ultrasound of the [...] Report Verified Date/Time: 03/06/2019 13:29:38 Reading Location: [address] Radiology Reading Room Performing Organization Address City/State/Zipcode Ph one Number GE RIS * STRESS ECHO With Contrast & Tracing (03/06/2019 8:58 AM RUBBER GOODS REPAIRER) Ejection Fraction Est EF of >70% [facility] Specimen Narrative Performed At Stress Echocardiography Report [facility] ECHO HEARTLAB Demographics [facility] Patient Name JOSHUA HULL Date of Study03/06/2019 [id number] Gender Male Visit Number [id number] Race Unknown [id number] Room NumberOP Number Date of Birth1960 Referring PhysicianTimbutch Marcus Age58 year(s) SonographConstantino Moreiar RDCS Interpreting Kirby olson MD Physician Fellow [...] Peak HR: 146 bpm HR BP Product: 19226 Peak BP: 210/93 mmHg Predicted HR: 161 [...] External Ris In - 03/06/2019 10:37 AM RUBBER GOODS REPAIRER Stress Echocardiography Report Demographics Patient Name JOSHUA HULL Date of Study 03/06/2019 Gender Male Visit Number [id number] Race Unknown Room Number OP Number Date of 1960 Referring Physician Iain Marcus Age 58 year(s) Alligator Shear Operator Andrew Moreira RDCS Interpreting Kirby Prakash MD [...] Peak HR: 146 bpm HR BP Product: 06519 Peak BP: 210/93 mmHg Predicted HR: 161 [...] LVOT CI: 3.68 l/min/m^2 Performing Organization Address City/State[facility] Ph one Number SLE ECHO HEARTLAB MKCKESSON CPACS * ECG 12 lead (03/06/2019 7:30 AM RU[employer]ER GOODS REPAIRER) Specimen Narrative Performed At Ventricular Rate 88 BPM GE MUSE Atrial Rate 88 BPM P-R Interval 188 ms QRS Duration 90 ms Q-T Interval 400 ms QTC Calculation(Bazett) 484 ms P [place] 80 degrees R [place] 81 degrees T [place] 103 degrees Normal sinus rhythm Nonspecific T wave abnormality Prolonged QT Abnormal ECG No previous ECGs available Confirmed by MD Millan Roberto ([id number]) on 03/06/2019 2:35:16 PM Procedure Note Interface, External Ris In - 03/06/2019 2:35 PM RU[employer]ER GOODS REPAIRER Ventricular Rate 88 BPM Atrial Rate 88 BPM P-R Interval 188 ms QRS Duration 90 ms Q-T Interval 400 ms QTC Calculation(Bazett) 484 ms P [place] 80 degrees R [place] 81 degrees T [place] 103 degrees Normal sinus rhythm Nonspecific T wave abnormality Prolonged QT Abnormal ECG No previous ECGs available Confirmed by MD Millan Roberto ([id number]) on 03/06/2019 2:35:16 PM Performing Organization Address City/[facility] Ph one Number GE MUSE * Blood typing, automated (03/06/2019 6:58 AM RUBBER GOODS REPAIRER) ABO/RH AUTOMATED (BEAKER) O POSITIVE [facility] Specimen Blood Performing Organization Address City/[facility] Ph one Number [address] [facility] * PSA (03/06/2019 6:58 AM RUBBER GOODS REPAIRER) PSA 0.6 0.0 - 4.0 ng/mL [facility] Specimen Blood Performing Organization Address [facility] Ph one Number [address] [facility] * Lipid panel (03/06/2019 6:58 AM RUBBER GOODS REPAIRER) Triglycerides 85 mg/dL [facility] Cholesterol 120 mg/dL [facility] HDL 39 mg/dL [facility] LDL Calculated 64 mg/dL [facility] Specimen Blood Narrative Performed At Triglyceride Reference Range: Low Risk <150 [facility] [id number] High Risk 200-499 Very High Risk>=500 Cholesterol Reference Range: Low Risk <200 [id number] High Risk>240 HDL Cholesterol Reference Range: Low Risk >=60 High Risk <40 LDL Cholesterol Reference Range: Optimal<100 Near [id number] Very High >=190 Performing Organization Address City/[facility] Ph one Number [facility] [address] [place], [place] [address] [facility] * HLA TYPING CII (12/17/2018 11:23 AM CDT) HLA-DR AG1 12 [facility] HLA-DR AG2 8 [facility] HLA-DR AG3-1 52 [facility] HLA-DQA1 AG 1-1 01 [facility] HLA-DQA1 AG 1-2 04 [facility] HLA-DQB1 AG 1-1 5 [facility] HLA-DQB1 AG 1-2 4 [facility] HLA-DPA1 AG 1-1 01 [facility] HLA-DPA1 AG 1-2 03 [facility] HLA-DPB1 AG 1-1 04:02 [facility] HLA-DPB1 AG 1-2 105:01 [facility] Specimen Blood Narrative Performed At Disclaimer: [facility] This test was developed and its perform ance characteristics determined by the [facility]. It has not been cleared or approved by the U.S. Food and Drug Administration. The FDA has determined that such clearance or approval is not necessary. This test is used for clinic al purposes. It should not be regarded as investigational or for research. This [facility] is certified under the Clinical Laboratory Improvement Amendments of 19 88 (CLIA-88) as qualified to perform high complexity clinical laboratory testing. Performing Organization Address City/State/[facility] Ph one Number [facility] ONE [facility] [place], [place]: [id number], [place] [address] CLIA#[id number] CAP#[id number] UNOS#[id number] * HLA TYPING CI (12/17/2018 11:23 AM CDT) HLA-A AG1 68 [facility] HLA-A AG2 24 [facility] HLA-B AG1 42 [facility] HLA-B AG2 39 [facility] HLA-C AG1 8 [facility] HLA-C AG2 7 [facility] HLA-B BW1 6 [facility] HLA-B BW2 6 [facility] Specimen Blood Narrative Performed At Disclaimer: [facility] This test was developed and its perform ance characteristics determined by the [facility]. It has not been cleared or [...] complexity clinical laboratory testing. Performing Organization Address [facility] one Number [facility] ONE Sathya Dorman, MS: [id number], [place] [address] CLIA#[id number] CAP#[id number] UNOS#[id number] * T Spot TB (12/17/2018 11:23 [...] is n ot available. Performing Organization Address [facility] one Number [facility] [address] [place] [address] LABORATORIES 100 * FLOW PRA CLASS II WITH REFLEX TO ANTIBODY SPECIFICITY (12/17/2018 11:22 AM CDT) Flow Class II Percent 5 [facility] NG Positive Specimen Blood Narrative Performed At Disclaimer: [facility] This test was developed and its perform ance characteristics determined by the [facility]. It has not been cleared or [...] complexity clinical laboratory testing. Performing Organization Address City/[facility] one Number [facility] ONE Sathya Dorman, MS: [id number], [place] [id number] CLIA#[id number] CAP#[id number] UNOS#[id number] * FLOW PRA CLASS I WITH REFLEX TO ANTIBODY SPECIFICITY (12/17/2018 11:22 AM CDT) Flow Class I Percent 0 [facility] G Positive Specimen Blood Narrative Performed At Disclaimer: [facility] This test was developed and its perform ance characteristics determined by the [facility]. It has not been cleared or [...] complexity clinical laboratory testing. Performing Organization Address [facility] one Number [facility] ONE Sathya Dorman, MS: [id number], [place] [address] CLIA#[id number] CAP#[id number] UNOS#[id number] * AB SPECIFICITY CLASS II (12/17/2018 11:22 AM CDT) AB Specificity Class II NO CLASS II ANTIBODY DETECTED BA YLOR HLA TESTING WITH MFIs > 4000 Specimen Blood Narrative Performed At Disclaimer: [facility] HLA TESTING This test was developed and its perform ance characteristics determined by the [facility]. It has not been cleared or [...] complexity clinical laboratory testing. Performing Organization Address [facility] one Number [facility] HLA TESTING ONE Sathya Dorman, MS: [id number], [place] [address] CLIA#[id number] CAP#[id number] UNOS#[id number] * Type and Screen, Automated (12/17/2018 11:22 AM CDT) ABO/RH AUTOMATED (BEAKER) O POSITIVE [facility] Ab Scrn NEGATIVE [facility] Specimen Blood Performing Organization Address [facility] one Number [address] [id number] [phone] [facility] * PT/aPTT (12/17/2018 11:22 AM CDT) Protime 14.0 11.9 - 14.2 seconds [facility] INR 1.1 <=5.9 [facility] PTT 34.9 22.5 - 36.0 seconds [facility] Specimen Blood Narrative Performed At Effective 09/25/2018: PT Reference Range Change [facility] New: 11.9-14.2Previous: 11.7-14.7 [facility] MEDICAL NTER RECOMMENDED COUMADIN/WARFARIN INR THERA PY RANGES STANDARD DOSE: 2.0-3.0Includes: PRO PHYLAXIS for venous thrombosis, systemic embolization; TREATMENT for venous thro mbosis and/or pulmonary embolus. HIGH RISK: Target INR is 2.5-3.5 for pa tients wiht mechanical heart valves. Performing Organization Address [facility] one Number [address] [facility] * HIV-1 Antigen with HIV-1/2 Antibody (12/17/2018 11:22 AM CDT) HIV-1 Antigen with HIV Nonreactive Nonreactive 1&2 Antibody [facility] Specimen Blood Performing Organization Address [facility] one Number [address] [facility] * CBC with platelet count + automated diff (12/17/2018 11:22 AM CDT) WBC 5.5 3.5 - 10.5 K/L [facility] RBC 3.93 (L) 4.63 - 6.08 M/L [facility] Hemoglobin 12.0 (L) 13.7 - 17.5 GM/DL [facility] Hematocrit 37.8 (L) 40.1 - 51.0 % [facility] MCV 96.2 (H) 79.0 - 92.2 fL [facility] MCH 30.5 25.7 - 32.2 pg [facility] MCHC 31.7 (L) 32.3 - 36.5 GM/DL [facility] RDW 14.7 (H) 11.6 - 14.4 % [facility] Platelets 108 (L) 150 - 450 K/CU MM [facility] MPV 12.7 (H) 9.4 - 12.4 fL [facility] nRBC 0 0 - 0 /100 WBC [facility] % Neutros 58 % [facility] % Lymphs 20 % [facility] % Monos 11 % [facility] % Eos 10 % [facility] % Baso 1 % [facility] # Neutros 3.18 1.78 - 5.38 K/L [facility] # Lymphs 1.12 (L) 1.32 - 3.57 K/L [facility] # Monos 0.61 0.30 - 0.82 K/L [facility] # Eos 0.53 0.04 - 0.54 K/L [facility] # Baso 0.06 0.01 - 0.08 K/L [facility] Immature 0 0 - 1 % [facility] Granulocytes-Relative [facility] Specimen Blood Performing Organization Address City/State/Zipcode Ph one Number [facility] [address] [facility] * Hepatitis C Antibody (12/17/2018 11:22 AM CDT) Hepatitis C Ab Nonreactive Nonreactive [facility] Specimen Blood Performing Organization Address [facility] one Number [address] [facility] * Cytomegalovirus antibody, IgM (12/17/2018 11:22 AM CDT) CMV IGM Negative Negative, Equivocal [facility] Specimen Blood Narrative Performed At CMV IgM Result Interpretation[facility] </= 0.8 Al Negative [facility] 0.9-1.0 Al Equivocal >/= 1.1 Al Positive Performing Organization Address [facility] one [address] [facility] * Hepatitis B core antibody, IgM (12/17/2018 11:22 AM CDT) Hep B C IgM Nonreactive Nonreactive [facility] Specimen Blood Performing Organization Address [facility] one [address] [facility] * EBV-VCA antibody, IgM (12/17/2018 11:22 AM CDT) MICHEAL PANDYA VIRAL CAPSID Negative Negative, Equivocal ANTIGEN IGM [facility] Specimen Blood Narrative Performed At Micheal Pandya Viral Capsid Antigen IgM Result Interpre tation: </= 0.8 Al Negative [facility] 0.9-1.0 Al Equivocal >/= 1.1 Al Positive Performing Organization Address [facility] one [address] [facility] * EBV-VCA antibody, IgG (12/17/2018 11:22 AM CDT) MICHEAL PANDYA VIRAL CAPSID Positive (A) Negative, Equivocal ANTIGEN IGG [facility] Specimen Blood Narrative Performed At Micheal Pandya Viral Capsid Antigen IgG Result Interpre tation: [facility] </= 0.8 Al Negative [facility] 0.9-1.0 Al Equivocal >/= 1.1 Al Positive Performing Organization Address [facility] one Number [address] [facility] * RPR (12/17/2018 11:22 AM CDT) RPR Nonreactive Nonreactive [facility] Specimen Blood Performing Organization Address [facility] one [address] [facility] * Hepatitis B surface antibody (12/17/2018 11:22 AM CDT) Hep B S Ab <8.0 <8.0 mIU/mL [facility] Specimen Blood Performing Organization Address [facility] one [address] 0 [phone] [place] [address] * Hepatitis B surface antigen (12/17/2018 11:22 AM CDT) HBsAg Screen Nonreactive Nonreactive [facility] Specimen Blood Performing Organization Address [facility] one Number [address] [facility] * Cytomegalovirus antibody, IgG (12/17/2018 11:22 AM CDT) CYTOMEGALOVIRUS, IGG Positive (A) Negative, Equivocal [facility] Specimen Blood Narrative Performed At CMV IgG Result Interpretation: [facility] </= 0.8 Al Negative [facility] 0.9-1.0 Al Equivocal >/=1.1 AlPositive Performing Organization Address [facility] one Number [address] [facility] * Direct AHG (BETO)/Direct Robb (12/17/2018 11:22 AM CDT) Direct AHG-IGG NEGATIVE [facility] Direct AHG-C3B, C3D NEGATVIE [facility] Specimen Blood Performing Organization Address [facility] one Number [address] [facility] * Varicella Zoster Antibody, IgG (12/17/2018 11:22 AM CDT) Varicella IgG 4.9 [facility] Specimen Blood Narrative Performed At VARICELLA ZOSTER RESULT INTERPRETATIONS: [facility] <=0.8 AlNo nreactive:Presumed non-immune to VZV [facility] 0.9-1.0 AlEqui vocal >=1.1 AlRe active:Presumed immune to VZV Performing Organization Address [facility] one Number [address] [facility] * Uric Acid (12/17/2018 11:22 AM CDT) Uric Acid 4.6 2.6 - 7.2 mg/dL [facility] Specimen Blood Performing Organization Address [facility] one Number [address] [facility] * Phosphorus (12/17/2018 11:22 AM CDT) Phosphorus 4.8 (H) 2.3 - 4.7 mg/dL [facility] Specimen Blood Performing Organization Address [facility] one Number [address] [facility] * PTH, Intact (12/17/2018 11:22 AM CDT) PTH 236.2 (H) 8.5 - 72.5 pg/mL [facility] Specimen Blood Performing Organization Address [facility] Ph one Number [address] [facility] * Lactate Dehydrogenase (LDH) (12/17/2018 11:22 AM CDT) LDH 263 (H) 125 - 220 U/L [facility] Specimen Blood Performing Organization Address [facility] Ph one Number [address] [facility] * Hemoglobin A1c (12/17/2018 11:22 AM CDT) Hemoglobin A1C 5.3 4.3 - 6.1 % [facility] Specimen Blood Performing Organization Address [facility] one Number [address] [facility] * Gamma Glutamyl Transferase (GGT) (12/17/2018 11:22 AM CDT) GGT 47 9 - 64 U/L [facility] Specimen Blood Performing Organization Address [facility] one Number [address] [facility] * Comprehensive metabolic panel (12/17/2018 11:22 AM CDT) Protein, Total 8.3 6.0 - 8.3 gm/dL [facility] Albumin 4.5 3.5 - 5.0 g/dL [facility] Alkaline Phosphatase 122 40 - 150 U/L [facility] Total Bilirubin 0.7 0.2 - 1.2 mg/dL [facility] Sodium 139 136 - 145 meq/L [facility] Potassium 4.9 3.5 - 5.1 meq/L [facility] Chloride 102 98 - 107 meq/L [facility] CO2 25 22 - 29 meq/L [facility] BUN 43 (H) 7 - 21 mg/dL [facility] Creatinine 8.15 (H) 0.57 - 1.25 mg/dL [facility] Glucose 79 70 - 105 mg/dL [facility] Calcium 9.5 8.4 - 10.2 mg/dL [facility] AST 21 5 - 34 U/L [facility] ALT 19 6 - 55 U/L [facility] EGFR 7Comment: ESTIMATED GFR IS NOT mL/min/1.73 sq m ACCURATE CREATININE [facility] CLEARANCE IN PREDICTING GLOMERULAR FILTRATION RATE. ESTIMATED GFR IS NOT APPLICABLE FOR DIALYSIS PATIENTS. Specimen Blood Performing Organization Address City/[facility] Ph one Number [address] [facility]ENTER * Urine Culture (12/17/2018 11:15 AM CDT) Result 40-49,000 col/mL skin marisol [facility] Specimen Urine Performing Organization Address [facility] one Number [address] [facility] after 09/28/2018 Insurance Payer Benefit Subscriber ID Type Phone Address Plan / Group MEDICARE MEDICARE A xxxxxxxxxxx Medicare B [employer]IG[employer] LIFESOURCE CIGNA xxxxxxxxxxx Transplant TRANSPLANT LIFESOURCE s TRANSPLANT MEDICAID MED[place]ID xxxxxxxxx [place] [id number]
--- OUTSIDE RECORDS SUMMARY | 2019-09-29 14:44 | XMS REPORT ---
Author Author [facility] t Organization [facility] Address [address] [place] [address] Phone Unavailable Care Team Providers Care Market Research Assistant Name Role Phone GENNA NARAYAN, MD ALMARAZ PCP Rosendo VEGA Attphys Unavailable VAIL, SOUHEIL Attphys Unavailable Orlando CAZARES YICHING Attphys Unavailable KOUSSHUNTER LACEY Attphys Unavailable TIMMINS, SCaleb MARIIA Attphys Unavailable PETRA GRIMALDO Attphys Unavailable Escobar NOVOA Attphys Unavailable DILLAN FAUSTIN Attphys Unavailable VAIL, SOUHEIL Admphys Unavailable Orlando CAZARES YICHING Admphys Unavailable PETRA GRIMALDO Admphys Unavailable DILLAN FAUSTIN Admphys Unavailable Payers Payer Name Policy Type Policy Number Effective Date Expiration Date S deuce [employer] NA 2018 00:00:00 [facility] [employer] NA [facility] Medicare A & B [id number] 2018 00:00:00 [facility] [id number] 2018 00:00: 00 [facility] Problems Condition Name Condition Details Condition Category Status Onset Date Resolution Date Last Treatment Date Treating Clinician Comments Source Hyperlipidemia Hyperlipidemia Problem Active 2018-12-26 00:00:00 [facility] Chronic kidney disease Chronic Kidney Disease Problem Active 2018-07-31 00:00:00 [facility] Dependence on hemodialysis Dependence on Hemodialysis Problem Active 2018-07-31 00:00:00 [facility] Type II diabetes mellitus uncontrolled Type II Diabetes Val itus Uncontrolled Problem Active 2018-06-17 00:00:00 [facility] Hypertensive disorder Hypertensive Disorder Problem Active 201 12-30-17 00:00:00 [facility] ractice Congestive heart failure Congestive Heart Failure Problem Acti 2018-06-17 00:00:00 [facility] History of alcohol abuse History of Alcohol Abuse Problem Acti 2018-06-17 00:00:00 [facility] Diabetic foot ulcer Diabetic foot ulcer Disease Active 2015-09-24 00:00 :00 Keith Arteaga Chronic osteomyelitis of right foot Chronic osteomyelitis of rig ht foot Disease Active 2015-09-24 00:00:00 Ambika Arteaga Diabetes mellitus type II, controlled Diabetes mellitus type II, controlled Disease Active 2015-09-24 00:00:00 Keith Arteaga Cellulitis of foot without toes, right Cellulitis of foot wi thout toes, right Disease Active 2015-09-24 00:00:00 Keith Arteaga End-stage renal disease ESRF (end stage renal failure) Problem Active [facility] Pulmonary edema Pulmonary edema Problem Active [facility] Anemia Anemia Problem Active [facility] End stage renal failure on dialysis ESRD (end stage renal di sease) on dialysis Problem Active [facility] Pleural effusion Pleural effusion Problem Active [facility] Pneumonia Pneumonia Problem Active [facility] Hypertensive urgency Hypertensive urgency Problem Active [facility] Malignant hypertensive urgency Hypertensive urgency, malignant Proble m Active [facility] Hypervolemia Volume overload Problem Active [facility] Hypoglycemia Problem Active [facility] Urinary tract infection Problem Active [facility] Altered mental status Problem Active [facility] Hypothermia Problem Active [facility] Allergies, Adverse Reactions, Alerts Allergy Name Allergy Type Status Severity Reaction(s) Onset Date Inacti ve Date Treating Clinician Comments Source No Known Allergies DA Active U 2019-08-23 00:00:00 [facility] No Known Allergies DA Active U 2018-09-19 00:00:00 [facility] Family History Family Member Diagnosis Comments Start Date Stop Date Source Natural brother Diabetes type II Jose Eduardo Arteaga Natural brother Hypertension Keith Arteaga Natural mother Diabetes type II Hous matteo Arteaga Social History Social Habit Start Date Stop [...] needed for Bp Supp ort During Dialysis [facility] Nifedipine (Nifedipine Er) 30 Mg TAB.ER.24 Nifedipine (Nifedipine Er) 30 Mg TAB.ER.24 2019-06-04 13:25:00 2019-08-12 00:00:00 No 30 Bedtime [facility] Sucralfate (Carafate) 1 Gm TABLET Sucralfate (Carafate) 1 Gm TABLET 2019-06-04 13:25:00 2019-08-12 00:00:00 No 1 Before Meals And At Bedtime [facility] Ciprofloxacin Hcl (Cipro) 500 Mg TABLET Ciprofloxacin Hcl (C ipro) 500 Mg TABLET 2018-10-02 22:06:00 2019-06-04 00:00:00 No 250 Every 12 Hours [facility] Doxazosin Mesylate (Cardura) 8 Mg TABLET Doxazosin Mes ylate (Cardura) 8 Mg TABLET 2018-07-14 07:31:2019-06-04 00:00:00 No 8 Twi ce A Day [facility] Folic Acid Folic Acid 2018-07-11 09:31:2019-08-12 00:00:00 No 1 Daily [facility] Hydralazine Hcl Hydralazine Hcl 2018-07-11 09:31:2019-06-04 00:00:00 No 25 Twice A Day [facility] Losartan Potassium (Cozaar) 100 Mg TABLET Losartan Pot assium (Cozaar) 100 Mg TABLET 2018-07-11 09:31:2019-06-04 00:00:00 No 50 Twi ce A Day [facility] Metoprolol Tartrate (Lopressor) 25 Mg TAB Metoprolol T artrate (Lopressor) 25 Mg TAB 2018-07-11 09:31:00 2019-06-04 00:00:00 No 25 Ever y 12 Hours [facility] Nifedipine (Nifedipine Er) 30 Mg TAB.ER.24 Nifedipine (Nifedipine Er) 30 Mg TAB.ER.24 2018-07-11 09:31:00 2019-06-04 00:00:00 No 60 Bedtime [facility] Basaglar KwikPen U-100 Insulin 100 unit/ mL [...] capsule by mouth three times a day [facility] ice folic acid 1 mg tablet Take 1 tablet every day by oral route for 90 days. folic acid 1 mg tablet Take 1 tablet every day by oral route for 90 days. No folic acid 1 mg tablet Take 1 tablet every day by oral route for 90 days. [facility] furosemide 40 mg tablet furosemide 40 mg tablet No furosemide 40 mg tablet [facility] gabapentin 100 mg capsule gabapentin 100 mg capsule No gabapentin 100 mg capsule [facility] ice lancets 33 gauge lancets 33 gauge No lancet s 33 gauge [facility] losartan 50 mg tablet Take 1 tablet ever y day by oral route as directed for 90 days. losartan 50 mg tablet Take 1 tablet ever y day by oral route as directed for 90 days. No losartan 50 mg tablet Take 1 tablet every day by oral route as directed for 90 days. [facility] minoxidil 10 mg tablet Take 1 tablet pascual ry day by oral route as directed for 30 days. minoxidil 10 mg tablet Take 1 tablet pascual ry day by oral route as directed for 30 days. No 1 Q1D minoxidil 1 0 mg tablet Take 1 tablet every day by oral route as directed for 30 days. [facility] moxifloxacin 0.5 % eye drops NOT USING RX YET moxiflox acin 0.5 % eye drops NOT USING RX YET No moxifloxacin 0.5 % eye dr ops NOT USING RX YET [facility] nifedipine ER 60 mg tablet,extended rele ase Take 1 tablet every day by oral route. nifedipine ER 60 mg tablet,extended rele ase Take 1 tablet every day by oral route. No 1 Q1D nifedipine E R 60 mg tablet,extended release Take 1 tablet every day by oral route. [facility] prednisolone acetate 1 % eye drops,suspension NOT USIN G RX YET prednisolone acetate 1 % eye drops,suspension NOT USING RX YET No prednisolone acetate 1 % eye drops,suspension NOT USING RX YET [facility] rosuvastatin 5 mg tablet Take 1 tablet every day by or al route as directed. rosuvastatin 5 mg tablet Take 1 tablet every day by oral route as directed. No 1 Q1D rosuvastatin 5 mg tablet Take 1 tablet every day by oral route as directed. [facility] True Metrix Glucose Test Strip use once [...] as needed for Moderate Rai n (4-6) [facility] Clonidine Hcl Clonidine Hcl Yes 1 Three Times A Day [facility] Lidocaine Patch Lidocaine Patch Yes 4 Daily [facility] Losartan Potassium Losartan Potassium Yes 100 Da lewis [facility] Megestrol Acetate Megestrol Acetate Yes 400 Carmelina y [facility] Metoprolol Succinate Metoprolol Succinate Yes 50 Daily [facility] Nifedipine (Procardia Xl) 30 Mg TAB.ER.24 Nifedipine ( Procardia Xl) 30 Mg TAB.ER.24 Yes 30 Every [address] [facility] Tizanidine Hcl Tizanidine Hcl Yes 4 Bedtime [facility] Tramadol Hcl (Ultram 50MG*) 50 Mg TAB Tramadol Hcl (Ultram 50MG*) 5 0 Mg TAB Yes 50 Every 8 Hours as needed for Moderate Rai n (4-6) [facility] Calcium Acetate Calcium Acetate 2019-08-12 00:00:00 No 667 Three Times A Day [facility] [place] Rosuvastatin Calcium (Crestor) 5 Mg TABLET Rosuvastati n Calcium (Crestor) 5 Mg TABLET 2019-08-12 00:00:00 No 5 Twice A Day [facility] Sodium Bicarbonate Sodium Bicarbonate 2019-08-12 00:00:00 No 650 Twice A Day [facility] [place] Furosemide (Lasix) 40 Mg TABLET Furosemide (Lasix) 40 Mg TABLET 2019-06-04 00:00:00 No 40 Daily [facility] Minoxidil Minoxidil 2019-06-04 00:00:00 No 10 Daily [facility] Lisinopril Lisinopril 2018-07-11 00:00:00 No 10 Carlie ly [facility] Metoprolol Tartrate (Lopressor) 25 Mg TAB Metoprolol T artrate (Lopressor) 25 Mg TAB 2018-07-11 00:00:00 No 100 Twice A Day [facility] Nifedipine (Procardia Xl) 60 Mg TAB.ER.24 Nifedipine ( Procardia Xl) 60 Mg TAB.ER.24 2018-07-11 00:00:00 No 60 Daily [facility] Immunizations Ordered Immunization Name Filled Immunization Name Date Status Comments Source influenza, injectable, quadrivalent influenza, injectable, q uadrivalent 2019-02-11 00:00:00 Completed [facility] ice pneumococcal polysaccharide PPV23 pneumococcal polysaccharid e PPV23 2018-06-28 00:00:00 Completed [facility] ice Pneumococcal Conjugate 13-Valent 2015-10-03 00:00:00 Rebecca etjeremy Arteaga Vital Signs Vital Name Observation Time Observation Value Comments Source BP Diastolic 2019-02-25 00:00:00 60 mm[Hg] [facility] Height 2019-02-25 00:00:00 68.3 [in_i] [facility] BMI (Body Mass Index) 2019-02-25 00:00:00 20.5 kg/m2 [facility] BP Systolic 2019-02-25 00:00:00 130 mm[Hg] [facility] Body Weight 2019-02-25 00:00:00 136 [lb_av] [facility] BP Diastolic 2018-12-26 00:00:00 54 mm[Hg] [facility] Height 2018-12-26 00:00:00 68.3 [in_i] [facility] BMI (Body Mass Index) 2018-12-26 00:00:00 22.2 kg/m2 [facility] BP Systolic 2018-12-26 00:00:00 124 mm[Hg] [facility] Body Weight 2018-12-26 00:00:00 147.4 [lb_av] [facility] BP Diastolic 2018-11-21 00:00:00 50 mm[Hg] [facility] Height 2018-11-21 00:00:00 68.3 [in_i] [facility] BMI (Body Mass Index) 2018-11-21 00:00:00 21.8 kg/m2 [facility] BP Systolic 2018-11-21 00:00:00 130 [...] (Body Mass Index) 2018-08-07 00:00:00 19.1 kg/m2 [facility] BP Systolic 2018-08-07 00:00:00 110 mm[Hg] [facility] Body Weight 2018-08-07 00:00:00 127 [lb_av] [facility] BP Diastolic 2018-07-31 00:00:00 80 mm[Hg] [facility] Height 2018-07-31 00:00:00 68.3 [in_i] [facility] BMI (Body Mass Index) 2018-07-31 00:00:00 19.4 kg/m2 [facility] BP Systolic 2018-07-31 00:00:00 154 mm[Hg] [facility] Body Weight 2018-07-31 00:00:00 128.4 [lb_av] [facility] BP Diastolic 2018-06-17 00:00:00 94 mm[Hg] [facility] Height 2018-06-17 00:00:00 68.3 [in_i] [facility] BMI (Body Mass Index) 2018-06-17 00:00:00 24.2 kg/m2 [facility] BP Systolic 2018-06-17 00:00:00 170 mm[Hg] [facility] Body Weight 2018-06-17 00:00:00 160.8 [lb_av] [facility] Body Temperature 2019-09-26 16:00:00 98.0 [degF] [facility] BMI (Body Mass Index) 2019-09-24 16:03:00 20.9 kg/m2 [facility] Weight 2019-09-24 01:16:00 118 [lb_av] [facility] Procedures Procedure Date / Time Performed Performing Clinician Zion anna Computed tomography of brain without radiopaque contrast 2019-08 00:00:00 [facility] Computed tomography of brain without radiopaque contrast 202 00:00:00 GERMAIN ARNETT [facility] Computed tomography of brain without radiopaque contrast 202 00:00:00 SHELLY HOOPER [facility] PERFORMANCE OF URINARY FILTRATION, <6 HRS/DAY 2019-08-13 00:00:0 0 [facility] Thoracentesis with ultrasound guidance 2019-07-28 00:00:00 MARILIN PELAEZ [facility] DRAINAGE OF LEFT PLEURAL CAVITY, PERCUTANEOUS APPROACH 2019-07-01 0 00:00:00 [facility] PERFORMANCE OF URINARY FILTRATION, <6 HRS/DAY 2019-07-25 00:00:0 0 [facility] TRANSFUSE NONAUT RED BLOOD CELLS IN CENTRAL VEIN, PERC 2019-06-29 3 00:00:00 [facility] EXCISION OF STOMACH, PYLORUS, ENDO, DIAGN 2019-07-09 00:00:00 [facility] EXTRACTION OF ESOPHAGUS, ENDO, DIAGN 2019-07-09 00:00:00 [facility] PERFORMANCE OF URINARY FILTRATION, <6 HRS/DAY 2019-07-07 00:00:0 0 [facility] PERFORMANCE OF URINARY FILTRATION, <6 HRS/DAY 2019-06-04 00:00:0 0 [facility] PERFORMANCE OF URINARY FILTRATION, <6 HRS/DAY 2019-06-02 00:00:0 0 [facility] X-ray of chest, two views 2019-06-01 00:00:00 KEN SCOTT [facility] PERFORMANCE OF URINARY FILTRATION, <6 HRS/DAY 2019-05-30 00:00:0 0 [facility] PERFORMANCE OF URINARY FILTRATION, <6 HRS/DAY 2019-05-28 00:00:0 0 [facility] Computed tomography of chest without contrast 2019-05-26 00: 00:00 MARILIN JUAN [facility] PERFORMANCE OF URINARY FILTRATION, <6 HRS/DAY 2019-05-26 00:00:0 0 [facility] PERFORMANCE OF URINARY FILTRATION, <6 HRS/DAY 2019-05-23 00:00:0 0 [facility] X-ray of chest, two views 2019-05-22 00:00:00 MARILIN JUAN CH [facility] PERFORMANCE OF URINARY FILTRATION, <6 HRS/DAY 2019-05-21 00:00:0 0 [facility] X-ray of chest, two views 2019-05-20 00:00:00 KEN SCOTT CH, I [facility] Ultrasound guidance for vascular access 2019-05-20 00:00:00 GERSON ORTIZ [facility] INSERTION OF INFUSION DEV INTO SUP VENA CAVA, PERC APPROACH 2019-05-20 00:00:00 [facility] ULTRASONOGRAPHY OF SUPERIOR VENA CAVA, GUIDANCE 2019-05-20 00:00 :00 [facility] PERFORMANCE OF URINARY FILTRATION, <6 HRS/DAY 2019-05-20 00:00:0 0 [facility] EXCISION OF R FOOT SUBCU/FASCIA, OPEN APPROACH 2019-05-18 00:00: 00 [facility] EXCISION OF RIGHT PLEURA, ENDO, DIAGN 2019-05-15 00:00:00 [facility] DRAINAGE OF RIGHT PLEURA WITH DRAINAGE DEVICE, ENDO 2019-05-15 0 0:00:00 [facility] RELEASE RIGHT LUNG, OPEN APPROACH 2019-05-15 00:00:00 [facility] PERFORMANCE OF URINARY FILTRATION, <6 HRS/DAY 2019-05-14 00:00:0 0 [facility] Thoracentesis with ultrasound guidance 2019-05-12 00:00:00 GERSON ORTIZ [facility] Computed tomography of chest without contrast 2019-05-12 00: 00:00 EDIN FRAIRE [facility] PERFORMANCE OF URINARY FILTRATION, <6 HRS/DAY 2019-05-12 00:00:0 [address] [facility] [address] of abdomen and pelvis without contrast 2019-05-11 00:00:00 [facility] Thoracentesis with ultrasound guidance 2019-05-09 00:00:00 NIURKA FRIEND [facility] X-ray of chest, single view 2019-05-09 00:00:00 BRETT CAZARES [facility] DRAINAGE OF R PLEURAL CAV WITH DRAIN DEV, PERC APPROACH 00:00:00 [facility] EXCISION OF STOMACH, ENDO, DIAGN 2019-05-09 00:00:00 [facility] EXCISION OF STOMACH, PYLORUS, ENDO, DIAGN 2019-05-09 00:00:00 [facility] PERFORMANCE OF URINARY FILTRATION, <6 HRS/DAY 2019-05-08 00:00:0 0 [facility] TRANSFUSE NONAUT RED BLOOD CELLS IN PERIPH VEIN, PERC 2019-05-08 00:00:00 [facility] X-ray of chest, two views 2019-05-07 00:00:00 NIURKA FRIEND CH I [facility] X-ray of chest, single view 2019-03-24 00:00:00 HUNTER HEARD [facility] electrocardiogram 2018-12-26 00:00:00 [facility] Fistula Cannulation Set, Ea 2018-04-30 00:00:00 [facility] Amputation of Toe [facility] Plan of Care Planned Activity Planned Date Details Comments Source Future Scheduled Test 2019-11-29 00:00:00 INFLUENZA VACCINE [code = INFLUENZA VACCINE] [facility] Scheduled Test 2009-12-04 00:00:00 COLONOSCOPY SCREEN ING [code = COLONOSCOPY SCREENING] [facility] Scheduled Test 2009-12-04 00:00:00 SHINGLES VACCINES (#1) [code = SHINGLES VACCINES (#1)] [facility] Future Scheduled Test 1969-12-04 00:00:00 DIABETIC FOOT EXAM [code = DIABETIC FOOT EXAM] [facility] Future Scheduled Test 1960 00:00:00 DIABETIC RETINAL E YE EXAM [code = DIABETIC RETINAL EYE EXAM] [facility] Encounters Start Date/Time End Date/Time Encounter Type Admission Type Att[facility] Facility Care Department Encounter ID Source 2019-09-24 03:35:00 2019-09-26 17:09:00 Discharged Inpatient 1 SUNG VAIL [facility] [id number] [facility] 2019-08-13 00:11:00 2019-08-20 17:37:00 Discharged Inpatient 1 [facility] [id number] [facility]. Jasen kes - Patients [facility] 2019-07-26 11:58:00 2019-07-29 14:01:00 Discharged Inpatient 1 SUNG [facility]IL [facility] [id number] [facility]. Jasen kes - Patients [facility] 2019-07-06 15:53:00 2019-07-14 19:04:00 [facility] Center [id number] [facility]. Jasen kes - Patients [facility] 2019-05-07 17:27:00 2019-06-04 19:58:00 [facility] [id number] [facility]. Jasen kes - Patients [facility] 2019-03-24 14:49:00 2019-03-24 18:20:00 Departed Emergency Room 1 HUNTER HEARD [facility] Patients [facility] Center [id number] [facility] 2019-02-25 00:00:00 2019-02-25 00:00:00 Kiran milton [facility] [place] [address], Ph. [facility] [id number] [facility] 2018-12-26 00:00:00 2018-12-26 00:00:00 Kiran milton MD: [place] [address], Ph. [facility] [id number] [facility] 2018-11-21 00:00:00 2018-11-21 00:00:00 Kiran milton MD: [place] [address], Ph. [facility] [id number] [facility] 2018-11-07 00:00:00 2018-11-07 00:00:00 Kiran milton MD: [address] [place] [address], Ph. [facility] [id number] [facility] 2018-10-24 00:00:00 2018-10-24 00:00:00 Krian milton MD: [place] [address], Ph. [facility] [id number] [facility] 2018-10-15 00:00:00 2018-10-15 00:00:00 Kiran milton MD: [place] [address], Ph. [facility] [id number] [facility] 2018-09-28 06:57:00 2018-10-03 09:49:00 Discharged Inpatient 1 JOSE M GRIMALDOVE [facility] [id number] [facility] [place] 2018-08-14 00:00:00 2018-08-14 00:00:00 Kiran milton MD: [place] [address], Ph. [facility] [id number] [facility] 2018-08-07 00:00:00 2018-08-07 00:00:00 Kiran milton MD: [place] [address], Ph. [facility] [id number] [facility] 2018-07-31 00:00:00 2018-07-31 00:00:00 Kiran milton MD: [place] [address], Ph. [facility] [id number] [facility] 2018-07-11 18:26:00 2018-07-14 18:21:00 Discharged Inpatient 1 AISHA NOVOA [facility] [id number] [facility] [place] 2018-06-17 22:58:00 2018-07-01 18:43:00 Discharged Inpatient 1 DILLAN FAUSTIN [facility] [id number] [facility] [place] 2018-06-17 00:00:00 2018-06-17 00:00:00 Kiran milton MD: [id number] [place] [address], Ph. [facility] [id number] [facility] Results Test Description Test Time Test Comments Results Result Comments Source CHEST SINGLE (PORTABLE) 2019-09-29 12:10:00 [place] [address] Patient Name: JOSHUA WHEELER MR #: [id number] : 1960 Age/Sex: 58/M Req #: [id number] Adm Physician: Ordered by: SOUMYA VEGA DO Report #: [id number] Location: ER Room/Bed: Procedure: [id number] DX/CHEST SINGLE (PORTABLE) Exam Date: Exam Time: REPORT STATUS: Signed EXAM: CHEST SINGLE (PORTABLE) DATE: 09/29/2019 11:31 AM INDICATION: Shortness of breath COMPARISON: 09/25/2019 FINDINGS: The trachea is midline. There are stable appearing right basilar opacities, unchanged from prior examinations. There is no evidence for new large focal consolidation or pneumothorax. Stable small right greater than left-sided pleural effusions again noted. The cardiomediastinal silhouette is stable in appearance. No acute osseous abnormalities identified. IMPRESSION: No significant interval change from 09/25/2019. Unchanged right basilar opacities which may reflect atelectasis. An underlying airspace process cannot be entirely excluded. Small right greater than left-sided pleural effusions. Signed by: Dr. Idris Gore MD on 09/29/2019 12:12 PM Dictated By: IDRIS GORE MD 121 Transcribed By: LOREE on 09/29/19 121 COPY TO: SOUMYA VEGA DO Capillary blood glucose measurement by glucometer (mas s/volume) 2019-09-26 15:09:00 Test Item Bedside Glucose (test code = 10339-7) 316 70-120 Meter ID: [id number] [facility] SINGLE (PORTABLE)2019-09-25 10:51:00 [place] [address] Patient Name: JOSHUA WHEELER MR #: [id number] : 1960 Age/Sex: 58/M Req #: [id number] Adm Physician: SUNG VAIL MD Ordered by: KEN SCOTT MD Report #: [id number] Location: MED/SURG Room/Bed: [facility] Procedure: [id number] DX/CHEST SINGL E (PORTABLE) Exam Date: 09/25/19 [...] Count (test code = 6690-2) 7.81 4.8-10.8 [facility]Allen[facility] erythrocytes automated count (number/volume)2019-09-25 05:15:00* Test Item Value Reference Range Interpretation Comments Red Blood Count (test code = 789-8) 3.21 4.3-5.7 [facility] hemoglobin measurement (moles/volume)2019-09-25 05:15:00* Test Item Value Reference Range Interpretation Comments Hemoglobin (test code = 55451-0) 9.2 14.0-18.0 [facility] McAllenAutomated blood hematocrit (volume fraction)2019-09-25 05:15:00* Test Item Value Reference Range Interpretation Comments Hematocrit (test code = 4544-3) 29.4 38.2-49.6 [facility] McAllenAutomated erythrocyte mean corpuscular xhyghw4410-06-69 05:15:00* Test Item Value Reference Range Interpretation Comments Mean Corpuscular Volume (test code = 787-2) 91.6 81-99 [facility]AllenAutomated erythrocyte mean corpuscular hemoglobin (mass per erythrocyte)2019-09-25 05:15:00* Test Item Value Reference Range Interpretation Comments Mean Corpuscular Hemoglobin (test code = 785-6) 28.7 28-32 [facility]AllenAutomated erythrocyte mean corpuscular hemoglobin concentration measurement (mass/volume)2019-09-25 05:15:00* Test Item Value Reference Range Interpretation Comments Mean Corpuscular Hemoglobin Concent (test code = 786-4) 31.3 31-35 [facility] McAllenRDW YphBk-Ohj3346-08-28 05:15:00* Test Item Value Reference Range Interpretation Comments Red Cell Distribution Width (test code = 20792-0) 17.9 11.7 -14.4 [facility]AllenAutomated blood platelet count (count/volume)2019-09-25 05:15:00* Test Item Value Reference Range Interpretation Comments Platelet Count (test code = 777-3) 195 140-360 [facility]AllenAutomated blood segmented neutrophil count as percentage of total cldvbhtgte3944-58-58 05:15:00* Test Item Value Reference Range Interpretation Comments Neutrophils (%) (Auto) (test code = 90575-8) 78.4 38.7-80.0 [facility]AllenAutunc [facility] blood lymphocyte count as percentage ot total akqxsjpcuc9151-66-06 05:15:00* Test Item Value Reference Range Interpretation Comments Lymphocytes (%) (Auto) (test code = 736-9) 8.8 18.0-39.1 [facility] McAllenAutomated blood monocyte count as percentage of total eogclooudj7241-43-47 05:15:00* Test Item Value Reference Range Interpretation Comments Monocytes (%) (Auto) (test code = 5905-5) 8.7 4.4-11.3 [facility]AllenAutomated blood eosinophil count as percentage of total utldwekjnv7571-60-99 05:15:00* Test Item Value Reference Range Interpretation Comments Eosinophils (%) (Auto) (test code = 713-8) 3.2 0.0-6.0 [facility]AllenAutomated blood basophil count as percentage of total ybmpptejvu6994-16-34 05:15:00* Test Item Value Reference Range Interpretation Comments Basophils (%) (Auto) (test code = 706-2) 0.5 0.0-1.0 [facility] McAllenFluoroscopic procedure less than one hour gwmlkrrx0484-83-16 05:15:00* Test Item Value Reference Range Interpretation Comments IM GRANULOCYTES % (test code = IM GRANULOCYTES %) 0.4 0.0- 1.0 [facility]AllenAutomated blood neutrophil count 2019-09-25 05:15:00* Test Item Value Reference Range Interpretation Comments Neutrophils # (Auto) (test code = 751-8) 6.1 2.1-6.9 [facility]Allen[facility] lymphocytes count (number/volume) 2019-09-25 05:15:00* Test Item Value Reference Range Interpretation Comments Lymphocytes # (Auto) (test code = 87080-6) 0.7 1.0-3.2 [facility]AllenBlood monocytes automated count (number/volume)2019-09-25 05:15:00* Test Item Value Reference Range Interpretation Comments Monocytes # (Auto) (test code = 742-7) 0.7 0.2-0.8 [facility] McAllenAutomated blood eosinophil count 2019-09-25 05:15:00* Test Item Value Reference Range Interpretation Comments Eosinophils # (Auto) (test code = 711-2) 0.3 0.0-0.4 [facility]AllenAutomated blood basophil count (count/volume)2019-09-25 05:15:00* Test Item Value Reference Range Interpretation Comments Basophils # (Auto) (test code = 704-7) 0.0 0.0-0.1 [facility] McAllenFluoroscopic procedure less than one hour tkhofmkx5127-50-20 05:15:00* Test Item Value Reference Range Interpretation Comments Absolute Immature Granulocyte (auto (dany t code = Absolute Immature Granulocyte (auto) 0.03 0-0.1 [facility] Campuserum or plasma sodium measurement (moles/volume)2019-09-25 05:15:00* Test Item Value Reference Range Interpretation Comments Sodium Level (test code = 2951-2) 138 136-145 [facility] Campuserum or plasma potassium measurement (moles/volume)2019-09-25 05:15:00* Test Item Value Reference Range Interpretation Comments Potassium Level (test code = 2823-3) 4.3 3.5-5.1 [facility] Campuserum or plasma chloride measurement (moles/volume)2019-09-25 05:15:00* Test Item Value Reference Range Interpretation Comments Chloride Level (test code = 2075-0) 100 98-107 [facility] Campuserum or plasma carbon dioxide, total measurement (moles/volume)2019-09-25 05:15:00* Test Item Value Reference Range Interpretation Comments Carbon Dioxide Level (test code = 2028-9) 26 22-29 [facility] Campuserum or plasma anion bnv6092-96-87 05:15:00* Test Item Value Reference Range Interpretation Comments Anion Gap (test code = 32212-1) 16.3 8-16 [facility] Campuserum or plasma urea nitrogen measurement (mass/volume)2019-09-25 05:15:00* Test Item Value Reference Range Interpretation Comments Blood Urea Nitrogen (test code = 3094-0) 32 7-26 [facility] Campuserum or plasma creatinine measurement (mass/volume)2019-09-25 05:15:00* Test Item Value Reference Range Interpretation Comments Creatinine (test code = 2160-0) 3.16 0.72-1.25 [facility] Campuserum or plasma urea nitrogen/creatinine mass qkcuc1614-03-69 05:15:00* Test Item Value Reference Range Interpretation Comments BUN/Creatinine Ratio (test code = 3097-3) 10 6-25 [facility] McAllenEstimated glomerular filtration rate (GFR) ikflcwewazjba8402-99-53 05:15:00* Test Item Value Reference Range Interpretation Comments Estimat Glomerular Filtration Rate (test code = 419487096) 20 >60 Ranges were taken from the National Kidney Disease Education Program and the [facility] [employer] [employer] literature.Reference ranges:60 or greater: Likuhj14-28 ( for 3 consecutive months): Chronic kidney disease 15 or less: Kidney failureSouth [facility] Health System McAllenGlucose xmcecycafaw1860-61-27 05:15:00* Test Item Value Reference Range Interpretation Comments Glucose Level (test code = BTY0222) 256 74-118 [facility] Campuserum or plasma calcium measurement (mass/volume)2019-09-25 05:15:00* Test Item Value Reference Range Interpretation Comments Calcium Level (test code = 23013-8) 8.4 8.4-10.2 [facility] Campuserum or plasma total bilirubin measurement (mass/volume)2019-09-25 05:15:00* Test Item Value Reference Range Interpretation Comments Total Bilirubin (test code = 1975-2) 0.4 0.2-1.2 [facility] McAllenFluoroscopic procedure less than one hour wgcbjdrw1636-61-95 05:15:00* Test Item Value Reference Range Interpretation Comments Aspartate Amino Transf (AST/SGOT) (test code = Aspartate Amino Transf (AST/SGOT)) 16 5-34 [facility] Campuserum or plasma alanine aminotransferase measurement (enzymatic activity/volume)2019-09-25 05:15:00* Test Item Value Reference Range Interpretation Comments Alanine Aminotransferase (ALT/SGPT) (test code = 1742-6) 16 0-55 [facility] Campuserum or plasma protein measurement (mass/volume)2019-09-25 05:15:00* Test Item Value Reference Range Interpretation Comments Total Protein (test code = 2885-2) 7.4 6.5-8.1 [facility] Campuserum or plasma albumin measurement (mass/volume)2019-09-25 05:15:00* Test Item Value Reference Range Interpretation Comments Albumin (test code = 1751-7) 2.5 3.5-5.0 [facility] McAllenPlasma globulin measurement (mass/volume) 2019-09-25 05:15:00* Test Item Value Reference Range Interpretation Comments Globulin (test code = 89743-5) 4.9 2.3-3.5 [facility] Campuserum or plasma albumin/globulin mass kauev2604-06-15 05:15:00* Test Item Value Reference Range Interpretation Comments Albumin/Globulin Ratio (test code = 1759-0) 0.5 0.8-2.0 [facility] Campuserum or plasma alkaline phosphatase measurement (enzymatic activity/volume)2019-09-25 05:15:00* Test Item Value Reference Range Interpretation Comments Alkaline Phosphatase (test code = 6768-6) 168 40-150 [facility] Campustool gastrointestinal hemoglobin wkpluudtr1815-59-75 03:40:00* Test Item Value Reference Range Interpretation Comments Stool Occult Blood (test code = 2335-8) POSITIVE NEGATIVE [facility] Campuserum or plasma creatine kinase measurement (enzymatic activity/volume)2019-09-24 16:20:00* Test Item Value Reference Range Interpretation Comments Creatine Kinase (test code = 2157-6) 72 30-200 [facility] Campuserum or plasma creatine kinase MB measurement (mass/volume)2019-09-24 16:20:00* Test Item Value Reference Range Interpretation Comments Creatine Kinase MB (test code = 81156-0) 6.20 0-5.0 [facility]AllenTroponin I measurement by highly sensitive enzyme zpqldidjiyo6290-14-60 16:20:00* Test Item Value Reference Range Interpretation Comments Troponin I (test code = 84439-1) < 0.001 0-0.300 [facility] hepatitis B virus surface antibody assay by radioimmunoassay (units/volume)2019-09-24 16:20:00* Test Item Value Reference Range Interpretation Comments Hepatitis B Surface Antibody, Quant (test code = 5194-6) 117.3 Immunity>9.9 Status of Immunity Anti-HBs Level Inconsistent with Immunity 0.0 - 9.9Consistent with Immunity >9.9[facility] [place] Campuserum or plasma hepatitis B virus core antibody detection by ipwvkqfqjna1683-05-73 16:20:00* Test Item Value Reference Range Interpretation Comments Hepatitis B Core Total Antibody (test code = 35214-9) Negative Negative [facility] Campuserum or plasma hepatitis B virus core IgM antibody detection by unrrvhwpjlp1818-91-08 16:20:00* Test Item Value Reference Range Interpretation Comments Hepatitis B Core IgM Antibody (test code = 53682-2) Negative Ne gative Performed at: - [facility] [address] [place], [place] [id number] Director: Alec Javier MD, Phone: [phone] [facility] SoutheastFluoroscopic procedure less than one hour fnwyseny4161-36-52 03:40:00* Test Item Value Reference Range Interpretation [...] complexity tests.Testing performed by [facility] [address] [id number] Director: Santos Olvera M.D.CLIA # [id number] [facility] SINGLE (PORTABLE)2019-09-24 03:26:00 [place] [address] Patient Name: JOSHUA WHEELER MR #: [id number] : 1960 Age/Sex: 58/M Req #: [id number] Adm Physician: SUNG VAIL MD Ordered by: SHELLY HOOPER MD Report #: [id number] Location: [facility] Room/Bed: [place] [address] Procedure: [id number] DX/ EST SINGLE (PORTABLE) Exam Date: 09/24/19 Exam [...] COPY TO: SHELLY HOOPER MD CT BRAIN LE7182-66-11 02:36:00 [place] [address] Patient Name: JOSHUA WHEELER MR #: [id number] : 1960 Age/Sex: 58/M Req #: [id number] Adm Physician: Ordered by: SHELLY HOOPER MD Report #: [id number] Location: ER Room/Bed: Procedure: [id number] CT/CT BRAIN WO Exam Date: 09/24/19 Exam [...] Color (test code = 5778-6) YELLOW YELLOW [facility] SoutheastUrine fizrgap6357-05-43 01:11:00* Test Item Value Reference Range Interpretation Comments Urine Clarity (test code = 98690-8) CLOUDY CLEAR [facility] Campuspecific gravity of Urine by Test strip 2019-09-24 01:11:00* Test Item Value Reference Range Interpretation Comments Urine Specific Mora (test code = 5811-5) 1.025 1.010-1.02 5 [facility]AllenUrine pH measurement by automated test frwry5042-99-37 01:11:00* Test Item Value Reference Range Interpretation Comments Urine pH (test code = 49209-8) 7.5 5-7 [facility]AllenUrine leukocyte esterase detection by hgsgznhi5491-59-94 01:11:00* Test Item Value Reference Range Interpretation Comments Urine Leukocyte Esterase (test code = 5799-2) 2+ NEGATIVE [facility]AllenUrine nitrite ucemxrmom8080-73-87 01:11:00* Test Item Value Reference Range Interpretation Comments Urine Nitrite (test code = 29552-3) NEGATIVE NEGATIVE [facility]AllenUrine protein measurement by test strip (mass/volume)2019-09-24 01:11:00* Test Item Value Reference Range Interpretation Comments Urine Protein (test code = 5804-0) >=300 NEGATIVE [facility]AllenUrine glucose flsyxugoh7889-67-84 01:11:00* Test Item Value Reference Range Interpretation Comments Urine Glucose (UA) (test code = 2349-9) 1+ NEGATIVE [facility]AllenUrine ketones detection by automated test gcbkv4015-39-08 01:11:00* Test Item Value Reference Range Interpretation Comments Urine Ketones (test code = 47175-8) NEGATIVE NEGATIVE [facility]AllenUrine urobilinogen measurement by test strip (mass/volume)2019-09-24 01:11:00* Test Item Value Reference Range Interpretation Comments Urine Urobilinogen (test code = 18570-6) 0.2 0.2-1 [facility]AllenU[facility] total bilirubin measurement (mass/volume)2019-09-24 01:11:00* Test Item Value Reference Range Interpretation Comments Urine Bilirubin (test code = 1978-6) NEGATIVE NEGATIVE [facility]AllenUrine erythrocytes jdftyjwfr7634-02-51 01:11:00* Test Item Value Reference Range Interpretation Comments Urine Blood (test code = 99326-8) 2+ NEGATIVE [facility]AllenAutomated urine sediment leukocyte count by microscopy (number/high power field)2019-09-24 01:11:00* Test Item Value Reference Range Interpretation Comments Urine WBC (test code = 5821-4) >50 0-5 [facility]AllenErythrocytes detection in urine sediment by light ysdygcktfr3231-70-16 01:11:00* Test Item Value Reference Range Interpretation Comments Urine RBC (test code = 99300-9) 21-50 0-5 [facility]AllenBacteria detection in urine sediment by light qsmxhenxnn3020-70-96 01:11:00* Test Item Value Reference Range Interpretation Comments Urine Bacteria (test code = 97050-2) MANY NONE [facility] McAllenEpithelial cells detection in urine sediment by light hztzstnulp2640-85-94 01:11:00* Test Item Value Reference Range Interpretation Comments Urine Epithelial Cells (test code = 98367-9) FEW NONE [facility] McAllenFluoroscopic procedure less than one hour dvtbdodp3485-79-61 01:11:00* Test Item Value Reference Range Interpretation Comments Lactic Acid Level (test code = Lactic Acid Level) 1.4 0.5- 2.0 [facility] Campuserum or plasma iron measurement (mass/volume)2019-09-24 01:11:00* Test Item Value Reference Range Interpretation Comments Iron Level (test code = 2498-4) 49 65-175 [facility] Campuserum or plasma iron binding capacity measurement (mass/volume)2019-09-24 01:11:00* Test Item Value Reference Range Interpretation Comments Total Iron Binding Capacity (test code = 2500-7) 165 261-4 78 [facility] Campuserum or plasma iron saturation measurement (mass fraction)2019-09-24 01:11:00* Test Item Value Reference Range Interpretation Comments Percent Iron Saturation (test code = 2502-3) 30 15-50 [facility] Campuserum or plasma transferrin measurement (mass/volume)2019-09-24 01:11:00* Test Item Value Reference Range Interpretation Comments Transferrin (test code = 3034-6) 118 174-364 [facility] McAllenAmmonia Ckl-lQom0272-80-27 01:11:00* Test Item Value Reference Range Interpretation Comments Ammonia (test code = 06274-2) 33 31-123 [facility]AllenBlood vwulkhg8797-84-72 01:11:00* Test Item Value Reference Range Interpretation Comments Blood Culture (test code = 12032977) NO GROWTH AFTER 48 HOURS [facility] McAllenGLUBED2020-05-03 07:56:00* Test Item Value Reference Range Interpretation Comments GLUBED (test code = GLUBED) 219 mg/dL 74-106 H Performed by certified traveling crane operator at [facility] CUVPUN5459-70-60 20:49:00* Test Item Value Reference Range Interpretation Comments GLUBED (test code = GLUBED) 131 mg/dL 74-106 H [facility] certified traveling crane [facility]~ POOACM6768-48-21 17:25:00* Test Item Value Reference Range Interpretation Comments GLUBED (test code = GLUBED) 268 mg/dL 74-106 H Performed by certified traveling crane operator at [facility] ARCMQT4866-98-70 12:12:00* Test Item Value Reference Range Interpretation Comments GLUBED (test code = GLUBED) 192 mg/dL 74-106 H [facility] certified traveling crane [facility]~ UBOJFC3570-75-03 08:05:00* Test Item Value Reference Range Interpretation Comments GLUBED (test code = GLUBED) 136 mg/dL 74-106 H Per[facility] by certified traveling crane operator [facility] NGAXFD6672-22-40 20:46:00* Test Item Value Reference Range Interpretation Comments GLUBED (test code = GLUBED) 290 mg/dL 74-106 H Performed by certified traveling crane operator at [facility] CJXCJN7599-86-47 16:35:00* Test Item Value Reference Range Interpretation Comments GLUBED (test code = GLUBED) 176 mg/dL 74-106 H Per[facility] by certified traveling crane operator [facility] LHXRWDXZHX6915-69-99 15:48:00* Test Item Value Reference Range Interpretation Comments VANCOMYCIN (test code = VANCO) 14.6 UG/ML 5.0-45.0 N QGIYFV5373-58-82 08:20:00* Test Item Value Reference Range Interpretation Comments GLUBED (test code = GLUBED) 197 mg/dL 74-106 H Per[facility] by certified traveling crane operator [facility]~ BASIC METABOLIC MFTJE4645-56-05 06:12:00* Test Item Value Reference Range Interpretation [...] code = CA) 8.3 mg/dL 8.5-10.1 L FNZSBSTPSF4386-38-59 05:55:00* Test Item Value Reference Range Interpretation Comments VANCOMYCIN (test code = VANCO) 24.8 UG/ML 5.0-45.0 N CBC W/AUTO BNQO4520-17-59 05:22:00* Test Item Value Reference Range Interpretation [...] DIFF REQUIRED (test code = MDIFF) NO LJOMNX4287-02-59 21:41:00* Test Item Value Reference Range Interpretation Comments GLUBED (test code = GLUBED) 319 mg/dL 74-106 H Performed by certified traveling crane operator at [facility] PLEURAL OXGOT7707-47-84 17:03:00 RUN DATE: 08/28/19 [facility] PAGE 1 RUN TIME: 1703 Specimen Inqui ry RUN USER: INTERFACE PATIENT: JOSHUA CACERES ACCT #: [id number] LOC: AnjanaIDSaranya U #: [id number] AGE/SX: 58/M ROOM: [facility] RE08/23/19REG DR: Sung Vail MD : 58 BED: A DIS: STATUS: ADM IN TLOC: SPEC #: [id number] RECD: 08/26/19 STATUS: SHIRA REQ #: [id number] MARY: 08/26/19- SUBM DR: Sung Vail MD ENTERED: 08/26/19 SP TYPE: PLEURAL FL OTHR DR: Winnie burleson or Family Physician Kiran Lizama MD, Muhammad MD Khan,Gerson Meier MD, MDORDERED: GROSS COPIES TO: No Primary [place] [address] [address] [place], [place] [id number] [email or web address] Edin Fraire MD [address] [place] [address] Sung Vail MD [address] [facility] [address] [place], [place] [id number] Hodan Ortiz MD [address] [facility] [address] [place] [address] Gerson Ortiz MD [address] [place] [address] PROCEDURES: TONAI (08/28/19-1343) TISSUES: PLEURAL FLUID, NOS CONTINUED ON NEXT PAGE RUN DATE: 08/28/19 [facility] PAGE 2 RUN TIME: 1703 Specimen Inquiry RUN USER: INTERFACE SPEC #: [id number] PATIENT : NICKIJOSHUA NURIA #[id number] (Continued) CLINICAL HISTORY COLLECTION DATE: 08/26/19 PLEURAL EFFUSION FIN AL DIAGNOSIS Left pleural fluid, thoracentesis: NEGATIVE FOR MALIGNANC Y INCREASED MACROPHAGES, FEW MIXED INFLAMMATORY CELLS, RED BLOOD CELLS RRB/keerthi D 665[address], [address] MACROSCOPIC The specimen is designated as "left pleural fluid". It consists of 7 cc of yellow fluid for concentration and evaluation. GROSS PERFORMED AT [facility] [address] [facility] [address] (p)[phone] MICROSCOPIC Two smear slides, a cytospin an d cell block are prepared from the fluid. All of the stains, including any co ntrols performed, stain appropriately. MICROSCOPIC PERFORMED AT [facility] [address] [facility] [address] (p)[phone] PERFORMING SITE Diagnosis performed at: [facility] [address] [place] [address] CONTINUED ON NEXT PAGE RUN DATE: [facility] PAGE 3 R UN TIME: 1703 Specimen Inquiry RUN USER: INTERFACE ----- -------SPEC #: [id number] PATIENT: JOSHUA CACERES #[id number] (Continued) Signed SIGNATURE ON FILE Galdino Muro MD 08/28/19 1703 END OF REPORT [id number] 16:03:00* Test Item Value Reference Range Interpretation Comments GLUBED (test code = GLUBED) 106 mg/dL 74-106 N Per[facility] by certified traveling crane [facility] NVGZSW3854-34-25 12:02:00* Test Item Value Reference Range Interpretation Comments GLUBED (test code = GLUBED) 285 mg/dL 74-106 H Per[facility] by certified traveling crane operator [facility] XQUCYX2904-63-54 08:07:00* Test Item Value Reference Range Interpretation Comments GLUBED (test code = GLUBED) 122 mg/dL 74-106 H Per[facility] by certified traveling crane operator [facility] CBC W/AUTO LKON1553-84-05 05:43:00* Test Item Value Reference Range Interpretation [...] DIFF REQUIRED (test code = MDIFF) NO [id number] 20:25:00* Test Item Value Reference Range Interpretation Comments GLUBED (test code = GLUBED) 195 mg/dL 74-106 H Per[facility] certified traveling crane operator [facility] DTRRRN5351-99-11 15:52:00* Test Item Value Reference Range Interpretation Comments GLUBED (test code = GLUBED) 141 mg/dL 74-106 H Performed by certified traveling crane operator at [facility] - SP THORACENTESIS W/[id number] 12:47:00 Name: JOSHUA CACERES [facility] : 1960 Age/S: 58 / M [address] Unit #: [id number] Loc: [place] [address] Phys: Sung Vail MD Acct: [id number] Dis Date: Status: ADM IN PHONE #: [phone] Exam Date: 08/26/2019 1427 FAX #: [phone] Reason: / EXAMS: CPT CODE: [id number] SP THORACENTESIS W/IMAG 54094 Fluoro Time: DAP (Gy m2): Air Kerma [...] administered and using sonographic guidance an 8 Kyr[place]z pigtail catheter was inserted into the left pleural cavity. 1.3 L of clear yellowish pleural fluid were drained and samples were sent to the lab. The drainage catheter was then removed. No apparent complications. IMPRESSION: Successful ultrasound-guided large-volume left-sided thorac entesis. Location code: [facility] [place] ctronically Signed by Rylie Rey on 2019 at 1247 Reported and signed by: Vic Rey M.D. CC: Kiran Lizama MD; Sung Vail MD Technologist: KEN NICOLAS PLASTIC MOLDING OPERATOR Trnscb Date/Time: 08/27/2019 (0111) [place] Orig Print D/T: S: 08/27/2019 (2031) PAGE 1 Signed Report LIPID PROFILE (CORONARY [...] measurement.========= SPECIMEN COMMENTS: add to labsTHYROID STIMULATING [id number] 12:21:00* Test Item Value Reference Range Interpretation Comments THYROID STIMULATING HORMONE (test code = TSH) 1.220 uIU/mL 0.36-3.7 4 N TSH REFERENCE RANGES: EUTHYROID: 0.35 - 4.3 mIU/mL HYPO : > 5.5 mIU/mL HYPER : < 0.35 mIU/mL SPECIMEN COMMENTS: add to labsPLEURAL FLD CELL CT/[id number] 08:45:00* Test Item Value Reference Range Interpretation [...] = REVIEW) GALDINO PÉREZ PATHOLOGIST REVIEWED BY GALIDNO HEDRICK M.D.08/27/19 SPECIMEN COMMENTS: LEFT PLEURAL FLUIDPLEURAL FLD [id number] 08:45:00* Test Item Value Reference Range Interpretation Comments PLEURAL FLD PH (test code = PHPL) 7.0 SPECIMEN COMMENTS: LEFT PLEURAL FLUIDPLEURAL FLD [id number] 08:45:00* Test Item Value Reference Range Interpretation Comments PLEURAL FLD GLUCOSE (test code = GLUPL) 157 MG/DL SPECIMEN COMMENTS: LEFT PLEURAL FLUIDPLEURAL FLD TOTAL [id number] 08:45:00* Test Item Value Reference Range Interpretation Comments PLEURAL FLD TOTAL PROTEIN (test code = PROTPL) 4.2 gram/dL SPECIMEN COMMENTS: LEFT PLEURAL FLUIDPLEURAL FLD [id number] 08:45:00* Test Item Value Reference Range Interpretation Comments PLEURAL FLD LDH (test code = LDHPL) 182 IUnit/L SPECIMEN COMMENTS: LEFT PLEURAL FLUIDPLEURAL FLD [id number] 08:45:00 * Test Item Value Reference Range Interpretation Comments PLEURAL FLD CHOLESTEROL (test code = CHOLPL) 62 MG/DL SPECIMEN COMMENTS: LEFT PLEURAL FLUIDPLEURAL FLD [id number] 08:45:00 * Test Item Value Reference Range Interpretation Comments PLEURAL FLD TRIGLYCERIDE (test code = TRIGPL) 10 MG/DL SPECIMEN COMMENTS: LEFT PLEURAL FLUIDBASIC METABOLIC [id number] 08:28:00* Test Item Value Reference Range Interpretation [...] code = CA) 8.3 mg/dL 8.5-10.1 L [id number] 08:01:00* Test Item Value Reference Range Interpretation Comments GLUBED (test code = GLUBED) 119 mg/dL 74-106 H Performed by certified traveling crane operator at [facility] CBC W/AUTO [id number] 07:52:00* Test Item Value Reference Range Interpretation [...] = NRBC#) 0.00 K/mm3 0.0-0.1 N CPK-MB [id number] 03:37:00* Test Item Value Reference Range Interpretation [...] not valid with a normal total CK. BOCDGRFW-[id number] 03:37:00* Test Item Value Reference Range Interpretation Comments TROPONIN-I (test code = TROPI) 0.029 ng/mL 0-0.045 N - XR CHEST 1 [id number] 02:41:00 FAX: Kiran Matute [phone] [place]: St: ADM FAX: Sung Milan MD [phone] Name: NICKIJOSHUA [facility] : 1960 Age/S: 58/M [address] [facility] Unit #: [id number] Loc: [place] [address] Phys: Sung Vail MD Acct: [id number] Dis Date: Status: ADM IN PHONE #: [phone] Exam Date: 08/27/2019 0205 FAX #: [phone] Reason: CHEST PAIN EXAMS: CPT CODE: [id number] XR CHEST 1 V 18090 AFTER HOURS SERVICE ON: 08/27/2019 2:39 AM [...] MD; Sung Castañeda MD Technologist: [facility] Date/Time/By: 08/27/2019 (0241) : By: [email or web address] Orig Print D/T: S: 08/27/2019 (0244) PAGE 1 Signed Report [id number] 20:59:00 * Test Item Value Reference Range Interpretation Comments GLUBED (test code = GLUBED) 144 mg/dL 74-106 H Performed by certified traveling crane operator at [facility] PLEURAL FLD CELL CT/[id number] 20:15:00* Test Item Value Reference Range Interpretation [...] PATHOLOGIST SPECIMEN COMMENTS: LEFT PLEURAL FLUIDPLEURAL FLD [id number] 20:15:00* Test Item Value Reference Range Interpretation Comments PLEURAL FLD PH (test code = PHPL) 7.0 SPECIMEN COMMENTS: LEFT PLEURAL FLUIDPLEURAL FLD [id number] 20:15:00* Test Item Value Reference Range Interpretation Comments PLEURAL FLD GLUCOSE (test code = GLUPL) 157 MG/DL SPECIMEN COMMENTS: LEFT PLEURAL FLUIDPLEURAL FLD TOTAL [id number] 20:15:00* Test Item Value Reference Range Interpretation Comments PLEURAL FLD TOTAL PROTEIN (test code = PROTPL) 4.2 gram/dL SPECIMEN COMMENTS: LEFT PLEURAL FLUIDPLEURAL FLD [id number] 20:15:00* Test Item Value Reference Range Interpretation Comments PLEURAL FLD LDH (test code = LDHPL) 182 IUnit/L SPECIMEN COMMENTS: LEFT PLEURAL FLUIDPLEURAL FLD [id number] 20:15:00 * Test Item Value Reference Range Interpretation Comments PLEURAL FLD CHOLESTEROL (test code = CHOLPL) 62 MG/DL SPECIMEN COMMENTS: LEFT PLEURAL FLUIDPLEURAL FLD [id number] 20:15:00 * Test Item Value Reference Range Interpretation Comments PLEURAL FLD TRIGLYCERIDE (test code = TRIGPL) 10 MG/DL SPECIMEN COMMENTS: LEFT PLEURAL FLUIDPLEURAL FLD CELL CT/[id number] 16:36:00 * Test Item Value Reference Range [...] PATHOLOGIST SPECIMEN COMMENTS: LEFT PLEURAL FLUIDPLEURAL FLD [id number] 16:36:00* Test Item Value Reference Range Interpretation Comments PLEURAL FLD PH (test code = PHPL) 7.0 SPECIMEN COMMENTS: LEFT PLEURAL FLUIDPLEURAL FLD [id number] 16:36:00* Test Item Value Reference Range Interpretation Comments PLEURAL FLD GLUCOSE (test code = GLUPL) 157 MG/DL SPECIMEN COMMENTS: LEFT PLEURAL FLUIDPLEURAL FLD TOTAL [id number] 16:36:00* Test Item Value Reference Range Interpretation Comments PLEURAL FLD TOTAL PROTEIN (test code = PROTPL) 4.2 gram/dL SPECIMEN COMMENTS: LEFT PLEURAL FLUIDPLEURAL FLD [id number] 16:36:00* Test Item Value Reference Range Interpretation Comments PLEURAL FLD LDH (test code = LDHPL) 182 IUnit/L SPECIMEN COMMENTS: LEFT PLEURAL FLUIDPLEURAL FLD [id number] 16:36:00 * Test Item Value Reference Range Interpretation Comments PLEURAL FLD CHOLESTEROL (test code = CHOLPL) 62 MG/DL SPECIMEN COMMENTS: LEFT PLEURAL FLUIDPLEURAL FLD [id number] 16:36:00 * Test Item Value Reference Range Interpretation Comments PLEURAL FLD TRIGLYCERIDE (test code = TRIGPL) 10 MG/DL SPECIMEN COMMENTS: LEFT PLEURAL FLUIDPLEURAL FLD CELL CT/[id number] 16:31:00 * Test Item Value Reference Range [...] PATHOLOGIST SPECIMEN COMMENTS: LEFT PLEURAL FLUIDPLEURAL FLD [id number] 16:31:00* Test Item Value Reference Range Interpretation Comments PLEURAL FLD PH (test code = PHPL) SPECIMEN COMMENTS: LEFT PLEURAL FLUIDPLEURAL FLD [id number] 16:31:00* Test Item Value Reference Range Interpretation Comments PLEURAL FLD GLUCOSE (test code = GLUPL) 157 MG/DL SPECIMEN COMMENTS: LEFT PLEURAL FLUIDPLEURAL FLD TOTAL [id number] 16:31:00* Test Item Value Reference Range Interpretation Comments PLEURAL FLD TOTAL PROTEIN (test code = PROTPL) 4.2 gram/dL SPECIMEN COMMENTS: LEFT PLEURAL FLUIDPLEURAL FLD [id number] 16:31:00* Test Item Value Reference Range Interpretation Comments PLEURAL FLD LDH (test code = LDHPL) 182 IUnit/L SPECIMEN COMMENTS: LEFT PLEURAL FLUIDPLEURAL FLD [id number] 16:31:00 * Test Item Value Reference Range Interpretation Comments PLEURAL FLD CHOLESTEROL (test code = CHOLPL) 62 MG/DL SPECIMEN COMMENTS: LEFT PLEURAL FLUIDPLEURAL FLD [id number] 16:31:00 * Test Item Value Reference Range Interpretation Comments PLEURAL FLD TRIGLYCERIDE (test code = TRIGPL) 10 MG/DL SPECIMEN COMMENTS: LEFT PLEURAL FLUIDPLEURAL FLD CELL CT/[id number] 16:05:00 * Test Item Value Reference Range [...] PATHOLOGIST SPECIMEN COMMENTS: LEFT PLEURAL FLUIDPLEURAL FLD [id number] 16:05:00* Test Item Value Reference Range Interpretation Comments PLEURAL FLD PH (test code = PHPL) SPECIMEN COMMENTS: LEFT PLEURAL FLUIDPLEURAL FLD [id number] 16:05:00* Test Item Value Reference Range Interpretation Comments PLEURAL FLD GLUCOSE (test code = GLUPL) 157 MG/DL SPECIMEN COMMENTS: LEFT PLEURAL FLUIDPLEURAL FLD TOTAL [id number] 16:05:00* Test Item Value Reference Range Interpretation Comments PLEURAL FLD TOTAL PROTEIN (test code = PROTPL) 4.2 gram/dL SPECIMEN COMMENTS: LEFT PLEURAL FLUIDPLEURAL FLD [id number] 16:05:00* Test Item Value Reference Range Interpretation Comments PLEURAL FLD LDH (test code = LDHPL) 182 IUnit/L SPECIMEN COMMENTS: LEFT PLEURAL FLUIDPLEURAL FLD [id number] 16:05:00 * Test Item Value Reference Range Interpretation Comments PLEURAL FLD CHOLESTEROL (test code = CHOLPL) 62 MG/DL SPECIMEN COMMENTS: LEFT PLEURAL FLUIDPLEURAL FLD [id number] 16:05:00 * Test Item Value Reference Range Interpretation Comments PLEURAL FLD TRIGLYCERIDE (test code = TRIGPL) 10 MG/DL SPECIMEN COMMENTS: LEFT PLEURAL [id number] 15:39:00* Test Item Value Reference Range Interpretation Comments GLUBED (test code = GLUBED) 219 mg/dL 74-106 H Performed by certified traveling crane operator at [facility] - XR CHEST 1 [id number] 15:03:00 FAX: Kiran Matute [phone] [place]: B St: ADM FAX: Sung Milan MD [phone] [facility] 1960 Age/S: 58/M [address] Unit #: [id number] Loc: [place] [place] [address] Phys: Vic Rey MD Acct: [id number] Dis Date: Status: ADM IN PHONE #: [phone] Exam Date: 08/26/2019 9679 FAX #: [phone] Reason: ESRD; SOB; pleural effusions; st.p. L thoracent EXAMS: CPT CODE: [id number] XR CHEST 1 V 57614 REASON FOR EXAM: ESRD; SOB; pleural effusions; [...] right-sided pleural effusi on are unchanged. Location: [facility] Electronic ally Signed by Kyle Mcelroy MD on 08/26/2019 at 1503 Repo rted and signed by: Kyle Mcelroy MD CC: Kiran Lizama MD; Sung Vail MD Technologist: Lulu Edwards(R); Niurka Olivares RT(R) Trnscrd Date/Time/By: 08/26/2019 (1503) : By: [email or web address] Orig Print D/T: S: 08/26/2019 (0443) PAGE 1 Signed Report [id number] 11:10:00* Test Item Value Reference Range Interpretation Comments GLUBED (test code = GLUBED) 179 mg/dL 74-106 H Performed by certified traveling crane operator at [facility] Coronavirus 2019 nCoV [id number] 09:52:00* Test Item Value Reference Range Interpretation Comments Coronavirus 2019 nCoV Bedside (test code = [id number]) Negative Emergent procedure? YESComments: FOR THORACENTESISPROTHROMBIN [id number] 09:17:00* Test Item Value Reference Range Interpretation [...] (2.5-3.5) IS PATIENT ON ANTICOAGULANTS? NTHROMBOPLASTIN TIME [id number] 09:17:00* Test Item Value Reference Range Interpretation Comments THROMBOPLASTIN TIME PARTIAL (test code = PTT) 33.8 seconds 23.0-37. 0 N IS PATIENT ON ANTICOAGULANTS? NAB HEPATITIS B [id number] 08:09:00* Test Item Value Reference Range Interpretation Comments AB HEPATITIS B SURFACE (test code = HBSAB) Reactive () Non Reactive: Inconsistent with immunity, less than 10 mIU/mL Reactive: Consistent with immunity, greater than 9.9 mIU/mLPerformed At: [facility] [address] [id number] Chery MD Ph:[phone] HEPATITIS B CORE ANTIBODY,[id number] 08:09:00* Test Item Value Reference Range Interpretation Comments HEPATITIS B CORE ANTIBODY,TOT (test code = HBCAB) Negative Nega tive Performed At: [facility] [address] [id number] Chery MD Ph:[phone] [id number] 08:07:00* Test Item Value Reference Range Interpretation Comments GLUBED (test code = GLUBED) 110 mg/dL 74-106 H Performed by certified traveling crane operator at [facility] [id number] 20:34:00* Test Item Value Reference Range Interpretation Comments GLUBED (test code = GLUBED) 237 mg/dL 74-106 H Performed by certified traveling crane operator at [facility] [id number] 20:34:00* Test Item Value Reference Range Interpretation Comments GLUBED (test code = GLUBED) 177 mg/dL 74-106 H Performed by certified traveling crane operator at [facility] - US CHST W/[id number] 18:25:00 Name: JOSHUA CACERES [facility] : 1960 Age/S: 58 / M [address] [facility] Unit #: [id number] Loc: [place] [address] Phys: Edin Fraire MD Acct: [id number] Dis Date: Status: ADM IN PHONE #: [phone] Exam Date: 08/25/2019 1800 FAX #: [phone] Reason: pleural effusion EXAMS: CPT CODE: [id number] US CHST W/MEDIASTINUM 81502 REASON FOR EXAM: pleural effusion EXAM ORDER DATE: 08/25/2019 5:26 PM Attending Rylie: Edin Fraire MD Location:[facility] PROCEDURE: - US CHST W/MEDIASTINUM FINDINGS: Limited focal ultrasound performed for assessment of pleural effusions IMPRESSION: Large left pleural effusion. Small right pleural effusion. at 1825 Reported and signed by: Cheko Joseph M.D. CC: Kiran Lizama MD; Aramis Gore II, MD; Edin Fraire MD Technologist: Tani Rose Trnscb Date/Time: 08/25/2019 (1824) tMARIANAVTL Orig Print D/T: S: 08/25/2019 (1827) Probe: PAGE 1 Signed Report RENAL FUNCTION [id number] 08:38:00* Test Item Value Reference Range Interpretation [...] code = PHOS) 8.3 mg/dL 2.5-4.9 H [id number] 08:25:00* Test Item Value Reference Range Interpretation Comments GLUBED (test code = GLUBED) 122 mg/dL 74-106 H Performed by certified traveling crane operator at [facility] RENAL FUNCTION [id number] 08:24:00* Test Item Value Reference Range Interpretation [...] code = PHOS) mg/dL 2.5-4.9 CBC W/O [id number] 08:06:00* Test Item Value Reference Range Interpretation [...] code = MPV) 11.3 fL 6.7-11.0 H [id number] 21:00:00* Test Item Value Reference Range Interpretation Comments GLUBED (test code = GLUBED) 172 mg/dL 74-106 H Performed by certified traveling crane operator at [facility] BASIC METABOLIC [id number] 16:34:00* Test Item Value Reference Range Interpretation [...] code = CA) 8.8 mg/dL 8.5-10.1 N [id number] 15:56:00* Test Item Value Reference Range Interpretation Comments GLUBED (test code = GLUBED) 69 mg/dL 74-106 L Performed by certified traveling crane operator at [facility] [id number] 12:44:00* Test Item Value Reference Range Interpretation Comments GLUBED (test code = GLUBED) 284 mg/dL 74-106 H Performed by certified traveling crane operator at [facility] [id number] 12:44:00* Test Item Value Reference Range Interpretation Comments GLUBED (test code = GLUBED) 116 mg/dL 74-106 H Performed by certified traveling crane operator at [facility] BASIC METABOLIC [id number] 06:12:00* Test Item Value Reference Range Interpretation [...] CA) 8.2 mg/dL 8.5-10.1 L BASIC METABOLIC [id number] 04:57:00* Test Item Value Reference Range Interpretation [...] code = CA) mg/dL 8.5-10.1 CBC W/AUTO [id number] 04:20:00* Test Item Value Reference Range Interpretation [...] DIFF REQUIRED (test code = MDIFF) NO [id number] 21:59:00* Test Item Value Reference Range Interpretation Comments GLUBED (test code = GLUBED) 229 mg/dL 74-106 H Performed by certified traveling crane operator at [facility] [id number] 21:00:00* Test Item Value Reference Range Interpretation Comments TROPONIN-I (test code = TROPI) 0.048 ng/mL 0-0.045 HH Results called to [id number] by [email or web address] 08/23/192056Critical results verified and read back by Nurse? Y COMMENTS TO LITHOGRAPHER HELPER: COLLECT 3 HOURS AFTER PREVIOUS [id number] 18:00:00* Test Item Value Reference Range Interpretation Comments TROPONIN-I (test code = TROPI) 0.038 ng/mL 0-0.045 N COMMENTS TO LITHOGRAPHER HELPER: COLLECT 3 HOURS AFTER PREVIOUS [id number] 17:56:00* Test Item Value Reference Range Interpretation Comments GLUBED (test code = GLUBED) 158 mg/dL 74-106 H Performed by certified traveling crane operator at [facility] AG HEPAT B [id number] 11:52:00* Test Item Value Reference Range Interpretation Comments AG HEPAT B SURF (test code = HBSAG) Nonreactive Index Nonreactive BASIC METABOLIC [id number] 10:39:00* Test Item Value Reference Range Interpretation [...] code = CA) 8.9 mg/dL 8.5-10.1 N [id number] 10:39:00* Test Item Value Reference Range Interpretation Comments TROPONIN-I (test code = TROPI) 0.036 ng/mL 0-0.045 N BASIC METABOLIC [id number] 10:30:00* Test Item Value Reference Range Interpretation [...] CALCIUM (test code = CA) mg/dL 8.5-10.1 [id number] 10:30:00* Test Item Value Reference Range Interpretation Comments TROPONIN-I (test code = TROPI) ng/mL 0-0.045 - XR CHEST 1 [id number] 10:23:00 FAX: Kiran Matute [phone] [place]: St: PRE FAX: Vamshi Talbot MD [phone] Name: JOSHUA CACERES [facility] : 1960 Age/S: 58/M [address] [facility] Unit #: [id number] Loc: [place] [address] Phys: Vamshi Talbot MD Acct: [id number] Dis Date: Status: PRE ER PHONE #: [phone] Exam Date: 08/23/2019 1015 FAX #: [phone] Reason: CHEST PAIN EXAMS: CPT CODE: [id number] XR CHEST 1 V 78917 REASON FOR EXAM: CHEST PAIN EXAM ORDER DATE: 08/23/2019 10:07 AM Ordering: Vamshi Talbot MD Attending:Vamshi Talbot MD Location:[facility] PROCEDURE: - XR CHEST 1 V COMPARISON: [...] Lizama MD; Vamshi Talbot MD Technologist: OXANA GUNTER RT(R) Trnscrd Date/Time/By: 08/23/2019 (3603) : By: FlakitaL Orig Print D/T: S: 08/23/2019 (6316) PAGE 1 Signed Report CBC W/O [id number] 10:19:00* Test Item Value Reference Range Interpretation [...] = MPV) 11.5 fL 6.7-11.0 H Bedside Sasrpsm9382-41-57 16:54:00* Test Item Value Reference Range Interpretation Comments Bedside Glucose (test code = 32024-1) 192 70-120 H Meter ID: [id number] [facility] 2019-[facility] 08:37:00* Test Item Value Reference Range Interpretation Comments Blood Culture (test code = 43820766) NO GROWTH AFTER 72 HOURS [facility]White Blood Ystqz1024-78-80 05:38:00* Test Item Value Reference Range Interpretation Comments White Blood Count (test code = 6690-2) 6.11 4.8-10.8 [facility] Blood Dlteg8374-86-47 05:38:00* Test Item Value Reference Range Interpretation Comments Red Blood Count (test code = 789-8) 3.18 4.3-5.7 L [facility]AllenHemoglobin2020-04-21 05:38:00* Test Item Value Reference Range Interpretation Comments Hemoglobin (test code = 81613-1) 9.2 14.0-18.0 L [facility]AllenHematocrit2020-04-21 05:38:00* Test Item Value Reference Range Interpretation Comments Hematocrit (test code = 4544-3) 28.7 38.2-49.6 L [facility]AllenMean Corpuscular Efiufj9463-84-82 05:38:00* Test Item Value Reference Range Interpretation Comments Mean Corpuscular Volume (test code = 787-2) 90.3 81-99 [facility]Mean Corpuscular Pgzgogaeth9031-16-29 05:38:00* Test Item Value Reference Range Interpretation Comments Mean Corpuscular Hemoglobin (test code = 785-6) 28.9 28-32 [facility]Mean Corpuscular Hemoglobin Concent 2019-08-19 05:38:00* Test Item Value Reference Range Interpretation Comments Mean Corpuscular Hemoglobin Concent (test code = 786-4) 32.1 31-35 [facility]AllenRed Cell Distribution Vqdci5718-96-11 05:38:00* Test Item Value Reference Range Interpretation Comments Red Cell Distribution Width (test code = 03040-3) 14.6 11.7 -14.4 H [facility] McAllenPlatelet Uhjof6663-53-76 05:38:00* Test Item Value Reference Range Interpretation Comments Platelet Count (test code = 777-3) 205 140-360 [facility]AllenNeutrophils (%) (Auto)2019-08-19 05:38:00 * Test Item Value Reference Range Interpretation Comments Neutrophils (%) (Auto) (test code = 96181-0) 64.8 38.7-80.0 [facility]AllenLymphocytes (%) (Auto)2019-08-19 05:38:00 * Test Item Value Reference Range Interpretation Comments Lymphocytes (%) (Auto) (test code = 736-9) 16.4 18.0-39.1 L [facility] McAllenMonocytes (%) (Auto)2019-08-19 05:38:00* Test Item Value Reference Range Interpretation Comments Monocytes (%) (Auto) (test code = 5905-5) 10.6 4.4-11.3 [facility]AllenEosinophils (%) (Auto)2019-08-19 05:38:00 * Test Item Value Reference Range Interpretation Comments Eosinophils (%) (Auto) (test code = 713-8) 7.2 0.0-6.0 H [facility]AllenBasophils (%) (Auto)2019-08-19 05:38:00* Test Item Value Reference Range Interpretation Comments Basophils (%) (Auto) (test code = 706-2) 0.7 0.0-1.0 [facility] McAllenIM GRANULOCYTES %2019-08-19 05:38:00* Test Item Value Reference Range Interpretation Comments IM GRANULOCYTES % (test code = IM GRANULOCYTES %) 0.3 0.0- 1.0 [facility]AllenNeutrophils # (Auto)2019-08-19 05:38:00* Test Item Value Reference Range Interpretation Comments Neutrophils # (Auto) (test code = 751-8) 4.0 2.1-6.9 [facility]AllenLymphocytes # (Auto)2019-08-19 05:38:00* Test Item Value Reference Range Interpretation Comments Lymphocytes # (Auto) (test code = 21682-5) 1.0 1.0-3.2 [facility]AllenMonocytes # (Auto)2019-08-19 05:38:00* Test Item Value Reference Range Interpretation Comments Monocytes # (Auto) (test code = 742-7) 0.7 0.2-0.8 [facility]AllenEosinophils # (Auto)2019-08-19 05:38:00* Test Item Value Reference Range Interpretation Comments Eosinophils # (Auto) (test code = 711-2) 0.4 0.0-0.4 [facility]AllenBasophils # (Auto)2019-08-19 05:38:00* Test Item Value Reference Range Interpretation Comments Basophils # (Auto) (test code = 704-7) 0.0 0.0-0.1 [facility] McAllenAbsolute Immature Granulocyte (auto 2019-08-19 05:38:00* Test Item Value Reference Range Interpretation Comments Absolute Immature Granulocyte (auto (dany t code = Absolute Immature Granulocyte (auto) 0.02 0-0.1 [facility] Campusodium Rwrtx3174-34-08 05:31:00* Test Item Value Reference Range Interpretation Comments Sodium Level (test code = 2951-2) 137 136-145 [facility] McAllenPotassium Qxhrj9985-50-52 05:31:00* Test Item Value Reference Range Interpretation Comments Potassium Level (test code = 2823-3) 4.5 3.5-5.1 [facility] McAllenChloride Gtpee9830-45-39 05:31:00* Test Item Value Reference Range Interpretation Comments Chloride Level (test code = 2075-0) 101 98-107 [facility] McAllenCarbon Dioxide Ptfpj8151-44-95 05:31:00* Test Item Value Reference Range Interpretation Comments Carbon Dioxide Level (test code = 2028-9) 29 22-29 [facility] McAllenAnion Hmx7929-92-22 05:31:00* Test Item Value Reference Range Interpretation Comments Anion Gap (test code = 04062-7) 11.5 8-16 [facility] McAllenBlood Urea Uxieagfs0614-51-78 05:31:00* Test Item Value Reference Range Interpretation Comments Blood Urea Nitrogen (test code = 3094-0) 54 7-26 H [facility] McAllenCreatinine2020-04-21 05:31:00* Test Item Value Reference Range Interpretation Comments Creatinine (test code = 2160-0) 3.92 0.72-1.25 H [facility] McAllenBUN/Creatinine Wwqzo8680-61-55 05:31:00* Test Item Value Reference Range Interpretation Comments BUN/Creatinine Ratio (test code = 3097-3) 14 6-25 [facility] McAllenEstimat Glomerular Filtration Rate 2019-08-19 05:31:00* Test Item Value Reference Range Interpretation Comments Estimat Glomerular Filtration Rate (test code = 964169994) 16 >60 L Ranges were taken from the [employer] Education Program and the [facility]ney Foundation literature.Reference ranges:60 or greater: Vwczjp04-70 ( for 3 consecutive months): Chronic kidney disease 15 or less: Kidney failureCHI Hca Houston Healthcare SoutheastGlucose Hkvrt6198-44-41 05:31:00* Test Item Value Reference Range Interpretation Comments Glucose Level (test code = COA5636) 143 74-118 H [facility]AllenCalcium Pbsuv0308-91-51 05:31:00* Test Item Value Reference Range Interpretation Comments Calcium Level (test code = 30004-1) 8.9 8.4-10.2 [facility] McAllenPhosphorus Cilsu7015-21-06 05:31:00* Test Item Value Reference Range Interpretation Comments Phosphorus Level (test code = AKD7214) 4.9 2.3-4.7 H [facility] McAllenMagnesium Egctg4680-82-25 05:31:00* Test Item Value Reference Range Interpretation Comments Magnesium Level (test code = 23458-8) 2.0 1.3-2.1 [facility] McAllenTotal Xglfvgrhn6937-66-00 05:31:00* Test Item Value Reference Range Interpretation Comments Total Bilirubin (test code = 1975-2) 0.4 0.2-1.2 [facility] McAllenAspartate Amino Transf (AST/SGOT) 2019-08-19 05:31:00* Test Item Value Reference Range Interpretation Comments Aspartate Amino Transf (AST/SGOT) (test code = Aspartate Amino Transf (AST/SGOT)) 31 5-34 [facility] McAllenAlanine Aminotransferase (ALT/SGPT) 2019-08-19 05:31:00* Test Item Value Reference Range Interpretation Comments Alanine Aminotransferase (ALT/SGPT) (test code = 1742-6) 34 0-55 [facility] McAllenTotal Jrsisdo9522-99-77 05:31:00* Test Item Value Reference Range Interpretation Comments Total Protein (test code = 2885-2) 6.9 6.5-8.1 [facility] McAllenAlbumin2020-04-21 05:31:00* Test Item Value Reference Range Interpretation Comments Albumin (test code = 1751-7) 2.4 3.5-5.0 L [facility] McAllenGlobulin2020-04-21 05:31:00* Test Item Value Reference Range Interpretation Comments Globulin (test code = 85615-3) 4.5 2.3-3.5 H [facility] McAllenAlbumin/Globulin Yrqtm4918-06-07 05:31:00 * Test Item Value Reference Range Interpretation Comments Albumin/Globulin Ratio (test code = 1759-0) 0.5 0.8-2.0 L [facility] McAllenAlkaline Locjbbqtrjc1972-45-62 05:31:00* Test Item Value Reference Range Interpretation Comments Alkaline Phosphatase (test code = 6768-6) 156 40-150 H [facility] McAllenPhosphorus uumkfvkelfn5095-33-12 04:50:00 * Test Item Value Reference Range Interpretation Comments Phosphorus Level (test code = TKN0235) 4.9 2.3-4.7 [facility] Campuserum or plasma magnesium measurement (mass/volume)2019-08-19 04:50:00* Test Item Value Reference Range Interpretation Comments Magnesium Level (test code = 33799-6) 2.0 1.3-2.1 [facility] McAllenCHEST SINGLE (PORTABLE)2019-08-18 08:44:00 [facility] [address] [place] [address] Patient Name: JOSHUA WHEELER MR #: [id number] : 1960 Age/Sex: 58/M Req #: [id number] Adm Physician: SUNG VAIL MD Ordered by: GERMAIN ARNETT MD Report #: [id number] Location: ICU Room/Bed: ICU 1931 Procedure: [id number] DX/CHEST SINGLE (PORTABLE) Exam Date: 08/18/19 Exam Time: 434 REPORT STATUS: Signed History: Pneumonia, urinary tract [...] KEN BISWAS MD 4 Transcribed By: YOSEPH DAVID on 08/18/19 0845 COPY TO: GERMAIN ARNETT MD B-Type Natriuretic Gkpwxmy0918-38-10 05:58:00* Test Item Value Reference Range Interpretation Comments B-Type Natriuretic Peptide (test code = 09882-7) > 5000.0 0-[address] [facility] Nac-mHxv4056-92-20 04:40:00* Test Item Value Reference Range Interpretation Comments B-Type Natriuretic Peptide (test code = 72332-2) > 5000.0 0-100 [facility] SoutheastCHES SINGLE (PORTABLE)2019-08-17 08:41:00 [facility] [address] [address] Patient Name: JOSHUA WHEELER MR #: [id number] : 1960 Age/Sex: 58/M Req #: [id number] Adm Physician: SUNG VAIL MD Ordered by: GERMAIN ARNETT MD Report #: [id number] Location: ICU Room/Bed: ICU 193 Procedure: [id number] DX/CHEST SINGLE (PORTABLE) Exam Date: 08/17/19 Exam [...] COPY TO: GERMAIN ARNETT MD Arterial Blood rM9555-76-02 06:30:00* Test Item Value Reference Range Interpretation Comments Arterial Blood pH (test code = 2744-1) 7.42 7.35-7.45 [facility] McAllenArterial Blood Partial Pressure CO2 2019-08-17 06:30:00* Test Item Value Reference Range Interpretation Comments Arterial Blood Partial Pressure CO2 (test code = 2019-8) 48 35-45 H [facility] McAllenArterial Blood QMI87079-79-10 06:30:00* Test Item Value Reference Range Interpretation Comments Arterial Blood HCO3 (test code = 1960-4) 31 22-26 H [facility] McAllenArterial Blood Base Zxzjol4059-85-31 06:30:00* Test Item Value Reference Range Interpretation Comments Arterial Blood Base Excess (test code = 1925-7) 6.0 -2-3 H [facility] McAllenFiO22020-04-19 06:30:00* Test Item Value Reference Range Interpretation Comments FiO2 (test code = FiO2) 28 Pt on 2L [facility]CCSt[facility] CenterTroponin M1996-12-11 17:35:00 * Test Item Value Reference Range Interpretation Comments Troponin I (test code = 66511-4) 0.125 0-0.300 [facility] McAllenLactic Acid Pjvfs3789-63-59 08:59:00* Test Item Value Reference Range Interpretation Comments Lactic Acid Level (test code = Lactic Acid Level) 2.4 0.5- 2.0 Results repeated and called to ANDREA TREVIÑO RN at 0858 on 08/16/19 by Meron paul. Read back and verified.[facility] McAllenCreatine Kinase EC6501-01-84 08:44:00* Test Item Value Reference Range Interpretation Comments Creatine Kinase MB (test code = 53891-5) 3.00 0-5.0 [facility] McAllenCreatine Jtzkmo9550-00-15 08:38:00* Test Item Value Reference Range Interpretation Comments Creatine Kinase (test code = 2157-6) 26 30-200 L [facility] McAllenArterial blood pH rxouaveoson3528-29-04 08:33:00* Test Item Value Reference Range Interpretation Comments Arterial Blood pH (test code = 2744-1) 7.42 7.35-7.45 [facility] McAllenpCO2 VdtP6184-98-13 08:33:00* Test Item Value Reference Range Interpretation Comments Arterial Blood Partial Pressure CO2 (test code = 2019-8) 48 35-45 [facility] McAllenArterial blood bicarbonate measurement (moles/volume)2019-08-16 08:33:00* Test Item Value Reference Range Interpretation Comments Arterial Blood HCO3 (test code = 1960-4) 31 22-26 [facility] McAllenArterial blood base excess by calculation 2019-08-16 08:33:00* Test Item Value Reference Range Interpretation Comments Arterial Blood Base Excess (test code = 1925-7) 6.0 -2-3 [facility] McAllenFluoroscopic procedure less than one hour gukstzwk9626-93-66 08:33:00* Test Item Value Reference Range Interpretation Comments FiO2 (test code = FiO2) 28 Pt on 2L NCCHI [facility] SoutheastAmmonia2020-04-18 08:31:00* Test Item Value Reference Range Interpretation Comments Ammonia (test code = 21660-3) 40 31-123 [facility] McAllenCT BRAIN GV5847-03-81 07:46:00 [facility] [address] [address] Patient Name: JOSHUA WHEELER MR #: [id number] : 1960 Age/Sex: 58/M Req #: [id number] Adm Physician: SUNG VAIL MD Ordered by: GERMAIN ARNETT MD Report #: [id number] Location: MED/SURG Room/Bed: [facility] Procedure: [id number] CT/CT BRAIN WO Exam Date: 08/16/19 Exam [...] M.D. on 020 7:54 AM Dictated By: EKN GARRIDO MD [id number] Transcribed By: LOREE on 08/16/19 3483 COPY TO: GERMAIN ARNETT MD CHEST SINGLE (PORTABLE)2019-08-16 07:37:00 [place] [address] Patient Name: JOSHUA WHEELER MR #: [id number] : 1960 Age/Sex: 58/M Req #: [id number] Adm Physician: SUNG VAIL MD Ordered by: GERMAIN ARNETT MD Report #: [id number] Location: MED/SURG Room/Bed: [facility] Procedure: [id number] DX/CHEST SINGLE (PORTABLE) Exam Date: 08/16/19 Exam [...] right pleural effusions. [facility] No pneumothorax. HEART AND [...] COPY TO: GERMAIN REDMAN MD Hepatitis Be Tktujaj8213-38-03 11:49:00* Test Item Value Reference Range Interpretation Comments Hepatitis Be Antigen (test code = 04224-3) Positive Negative H Results called to FABIOLA HAN RN at 1148 on 08/14/19 by Cayetano El. RB [place].Perfo rmed at: - [facility] [address] [id number] Dire ctor: Alec Javier MD, Phone: [phone] [facility] Health System McAllen Hepatitis B Surface Antibody, Miuve1770-94-68 08:37:00* Test Item Value Reference Range Interpretation Comments Hepatitis B Surface Antibody, Quant (test code = 5194-6) 114.9 Immunity>9.9 Status of Immunity Anti-HBs Level Inconsistent with Immunity 0.0 - 9.9Consistent with Immunity >9.9[facility] SoutheastHepatibristol regional medical center B Core Total Hqvxfmuo9631-03-06 08:37:00* Test Item Value Reference Range Interpretation Comments Hepatitis B Core Total Antibody (test code = 12349-3) Negative Negative [facility]AllenHem[facility] B Surface Fpcekuw7872-20-93 08:37:00* Test Item Value Reference Range Interpretation Comments Hepatitis B Surface Antigen (test code = 5196-1) Negative Negat aye [facility] McAllenHecrittenden county hospitaltis B Core IgM Emhcyhwk7087-74-68 08:37:00* Test Item Value Reference Range Interpretation Comments Hepatitis B Core IgM Antibody (test code = 17632-4) Negative Ne gative Performed at: HD - [facility] [address] [id number] Director: Alec Javier MD, Phone: [phone] Texas Health System McAllenCT BRAIN MY2663-88-36 00:47:00 [facility] [address] [address] Patient Name: JOSHUA WHEELER MR #: [id number] : 1960 Age/Sex: 58/M Req #: [id number] Adm Physician: SUNG VAIL MD Ordered by: SHELLY HOOPER MD Report #: [id number] Location: ICU Room/Bed: ICU [facility] Procedure: CT/CT BRAIN WO Exam Date: [...] B virus e antigen detection by enzyme hzgmxaijpew2998-46-31 05:00:00* Test Item Value Reference Range Interpretation Comments Hepatitis Be Antigen (test code = 92403-4) Positive Negative Results called to FABIOLA HAN RN at 1148 on 08/14/19 by Cayetano El. RB [place].Perfo rmed at: HD - [facility] [address] [id number] Dire ctor: Alec Javier MD, Phone: [phone] [facility] Health System McAllen Serum or plasma hepatitis B virus surface antigen detection by immunoassay 2019-08-13 05:00:00* Test Item Value Reference Range Interpretation Comments Hepatitis B Surface Antigen (test code = 5196-1) Negative Negat aye [facility] SoutheastCHEST SINGLE (PORTABLE)2019-08-12 23:03:[address] [place] [address] Patient Name: JOSHUA WHEELER MR #: [id number] : 1960 Age/Sex: 58/M Req #: [id number] Adm Physician: Ordered by: SHELLY HOOPER MD Report #: [id number] Location: ER Room/Bed: Procedure: [id number] DX/CHEST [...] 08/12/192304 COPY TO: SHELLY HOOPER MD Bedside Phdcgvg8476-37-57 13:44:00* Test Item Value Reference Range Interpretation Comments Bedside Glucose (test code = 43940-0) 191 70-120 H Meter ID: [id number] [facility] SoutheastBlood Culture 2019-07-29 08:59:00* Test Item Value Reference Range Interpretation Comments Blood Culture (test code = 91483189) NO GROWTH AFTER 5 DAYS, FINAL REPORT [facility] McAllenBody Fluid Xrofdnvolvu9693-13-02 22:29:00 * Test Item Value Reference Range Interpretation Comments Body Fluid Neutrophils (test code = 77746-9) 10 [facility] McAllenBody Fluid Oxwgadujvep0664-56-38 22:29:00 * Test Item Value Reference Range Interpretation Comments Body Fluid Lymphocytes (test code = 30272986) 72 [facility] McAllenBody Fluid Zjprcfqyy3361-66-47 22:29:00* Test Item Value Reference Range Interpretation Comments Body Fluid Monocytes (test code = 94186-1) 18 [facility] Fluid Total Cells Bjwvopr5844-51-19 22:29:00* Test Item Value Reference Range Interpretation Comments Body Fluid Total Cells Counted (test code = 32835-0) 50 [facility] McAllenBody Fluid Xgzvdmfhdkz9566-91-26 22:29:00 * Test Item Value Reference Range Interpretation Comments Body Fluid Neutrophils (test code = 09826-3) 10 [facility] McAllenBody Fluid Kzqpxxiithx2062-77-83 22:29:00 * Test Item Value Reference Range Interpretation Comments Body Fluid Lymphocytes (test code = 40189880) 72 [facility] McAllenBody Fluid Echxlbyjx5915-06-99 22:29:00* Test Item Value Reference Range Interpretation Comments Body Fluid Monocytes (test code = 64049-2) 18 [facility] Fluid Total Cells Wjkxych3039-89-05 22:29:00* Test Item Value Reference Range Interpretation Comments Body Fluid Total Cells Counted (test code = 49793-6) 50 [facility] McAllenBody Fluid CJI4352-21-15 16:58:00* Test Item Value Reference Range Interpretation Comments Body Fluid WBC (test code = 6743-9) 45 [facility] McAllenBody Fluid TOR3408-73-18 16:58:00* Test Item Value Reference Range Interpretation Comments Body Fluid RBC (test code = 6741-3) 8 [facility] Fluid ICE9643-63-30 16:58:00* Test Item Value Reference Range Interpretation Comments Body Fluid WBC (test code = 6743-9) 45 [facility] Fluid EOM5542-46-54 16:58:00* Test Item Value Reference Range Interpretation Comments Body Fluid RBC (test code = 6741-3) 8 [facility] McAllenTHORACENTESIS/IMAGE ABJMRC2759-33-51 16:26:00 [place] [address] Patient Name: JOSHUA WHEELER MR #: [id number] : 1960 Age/Sex: 58/M Req #: [id number] Adm Physician: SUNG VAIL MD Ordered by: MARILIN ALBA MD Report #: [id number] Location: MED/SURG2 Room/Bed: 214 Procedure: US/THORACENTESIS/IMAGE GUIDED Exam Date: Exam Ti [...] on 07/28/191627 COPY TO: MARILIN ALBA MD, [facility] Body Fluid Suwo3721-84-86 16:10:00* Test Item Value Reference Range Interpretation Comments Body Fluid Type (test code = 60019-8) PLEURAL [facility] McAllenBody Fluid Oxbqt4738-23-02 16:10:00* Test Item Value Reference Range Interpretation Comments Body Fluid Color (test code = 6824-7) YELLOW [facility]AllenBody Fluid Leuifnhqhy9508-72-92 16:10:00 * Test Item Value Reference Range Interpretation Comments Body Fluid Appearance (test code = 9335-1) SL.CLOUDY [facility] McAllenBody Fluid Yazv3248-89-01 16:10:00* Test Item Value Reference Range Interpretation Comments Body Fluid Type (test code = 72635-5) PLEURAL [facility]AllenBody Fluid Nwauq9190-59-83 16:10:00* Test Item Value Reference Range Interpretation Comments Body Fluid Color (test code = 6824-7) YELLOW [facility]AllenBody Fluid Zerboitish6736-93-15 16:10:00 * Test Item Value Reference Range Interpretation Comments Body Fluid Appearance (test code = 9335-1) SL.CLOUDY [facility] McAllenCHEST XRAY POST HTDBWYMHE2246-95-59 15:25:00 [facility] [address] [address] Patient Name: JOSHUA WHEELER MR #: [id number] : 1960 Age/Sex: 58/M Req #: [id number] Adm Physician: SUNG VAIL MD Ordered by: KEVIN BANDA MD Report #: [id number] Location: [facility]/SURG2 Room/Bed: [facility] [place] Procedure: [id number] DX /CHEST XRAY POST PROCEDURE Exam Date: [...] Transcribed By: LOREE on 07/28/197 COPY TO: KEVIN BANDA MD Specimen source identification of body gplxc7223-73-61 14:51:00* Test Item Value Reference Range Interpretation Comments Body Fluid Type (test code = 80714-7) PLEURAL [facility] McAllenEvaluation of color of body fluid 2019-07-28 14:51:00* Test Item Value Reference Range Interpretation Comments Body Fluid Color (test code = 6824-7) YELLOW [facility] McAllenDetermination of appearance of body fluid 2019-07-28 14:51:00* Test Item Value Reference Range Interpretation Comments Body Fluid Appearance (test code = 9335-1) SL.CLOUDY [facility] body fluid leukocytes count (number/volume)2019-07-28 14:51:00* Test Item Value Reference Range Interpretation Comments Body Fluid WBC (test code = 6743-9) 45 [facility] body fluid erythrocytes count (number/volume)2019-07-28 14:51:00* Test Item Value Reference Range Interpretation Comments Body Fluid RBC (test code = 6741-3) 8 [facility] body fluid neutrophils/100 gwgmwcktio5068-13-10 14:51:00* Test Item Value Reference Range Interpretation Comments Body Fluid Neutrophils (test code = 33317-0) 10 [facility]AllenBody fluid lymphocyte pflai0373-03-38 14:51:00* Test Item Value Reference Range Interpretation Comments Body Fluid Lymphocytes (test code = 46655970) 72 [facility]AllenBody fluid monocyte sstlk7863-87-99 14:51:00* Test Item Value Reference Range Interpretation Comments Body Fluid Monocytes (test code = 38867-0) 18 [facility] McAllenTotal cell ilgdv3806-20-20 14:51:00* Test Item Value Reference Range Interpretation Comments Body Fluid Total Cells Counted (test code = 94454-0) 50 [facility] Campusodium Necfs5722-98-37 06:06:00* Test Item Value Reference Range Interpretation Comments Sodium Level (test code = 2951-2) 138 136-145 [facility] McAllenPotassium Ezaym8177-21-91 06:06:00* Test Item Value Reference Range Interpretation Comments Potassium Level (test code = 2823-3) 4.1 3.5-5.1 [facility] McAllenChloride Ontng4824-32-22 06:06:00* Test Item Value Reference Range Interpretation Comments Chloride Level (test code = 2075-0) 103 98-107 [facility] McAllenCarbon Dioxide Tlyur8210-35-65 06:06:00* Test Item Value Reference Range Interpretation Comments Carbon Dioxide Level (test code = 2028-9) 27 22-29 [facility] McAllenAnion Twg6542-71-59 06:06:00* Test Item Value Reference Range Interpretation Comments Anion Gap (test code = 10150-9) 12.1 8-16 [facility] McAllenBlood Urea Ephvcetc6277-96-04 06:06:00* Test Item Value Reference Range Interpretation Comments Blood Urea Nitrogen (test code = 3094-0) 44 7-26 H [facility] McAllenCreatinine2020-03-30 06:06:00* Test Item Value Reference Range Interpretation Comments Creatinine (test code = 2160-0) 4.87 0.72-1.25 H [facility] McAllenBUN/Creatinine Dsamg0859-43-41 06:06:00* Test Item Value Reference Range Interpretation Comments BUN/Creatinine Ratio (test code = 3097-3) 9 6-25 [facility] McAllenEstimat Glomerular Filtration Rate 2019-07-28 06:06:00* Test Item Value Reference Range Interpretation Comments Estimat Glomerular Filtration Rate (test code = 559527241) 12 >60 L Ranges were taken from the National Kidney Disease Education Program and the [facility] Foundation literature.Reference ranges:60 or greater: Fkiktk84-14 ( for 3 consecutive months): Chronic kidney disease 15 or less: Kidney failureCHI [facility]ca Houston Healthcare SoutheastGlucose Llbwu6974-02-46 06:06:00* Test Item Value Reference Range Interpretation Comments Glucose Level (test code = NVW7241) 111 74-118 [facility] McAllenCalcium Yuyqf4102-65-66 06:06:00* Test Item Value Reference Range Interpretation Comments Calcium Level (test code = 72684-0) 8.4 8.4-10.2 [facility] McAllenWhite Blood Zdohz1178-16-97 05:43:00* Test Item Value Reference Range Interpretation Comments White Blood Count (test code = 6690-2) 3.72 4.8-10.8 L [facility] McAllenRed Blood Lkkpj9989-64-15 05:43:00* Test Item Value Reference Range Interpretation Comments Red Blood Count (test code = 789-8) 3.56 4.3-5.7 L [facility] McAllenHemoglobin2020-03-30 05:43:00* Test Item Value Reference Range Interpretation Comments Hemoglobin (test code = 89196-0) 10.1 14.0-18.0 L [facility] McAllenHematocrit2020-03-30 05:43:00* Test Item Value Reference Range Interpretation Comments Hematocrit (test code = 4544-3) 31.7 38.2-49.6 L [facility] McAllenMean Corpuscular Oijyqs3261-34-56 05:43:00* Test Item Value Reference Range Interpretation Comments Mean Corpuscular Volume (test code = 787-2) 89.0 81-99 [facility] McAllenMean Corpuscular Noyaqtjhoz0230-73-69 05:43:00* Test Item Value Reference Range Interpretation Comments Mean Corpuscular Hemoglobin (test code = 785-6) 28.4 28-32 [facility] McAllenMean Corpuscular Hemoglobin Concent 2019-07-28 05:43:00* Test Item Value Reference Range Interpretation Comments Mean Corpuscular Hemoglobin Concent (test code = 786-4) 31.9 31-35 [facility] McAllenRed Cell Distribution Qjlyk1898-88-14 05:43:00* Test Item Value Reference Range Interpretation Comments Red Cell Distribution Width (test code = 70588-5) 16.2 11.7 -14.4 H [facility] McAllenPlatelet Rixhr2671-89-15 05:43:00* Test Item Value Reference Range Interpretation Comments Platelet Count (test code = 777-3) 208 140-360 [facility] McAllenNeutrophils (%) (Auto)2019-07-28 05:43:00 * Test Item Value Reference Range Interpretation Comments Neutrophils (%) (Auto) (test code = 55207-3) 52.2 38.7-80.0 [facility] McAllenLymphocytes (%) (Auto)2019-07-28 05:43:00 * Test Item Value Reference Range Interpretation Comments Lymphocytes (%) (Auto) (test code = 736-9) 27.7 18.0-39.1 [facility] McAllenMonocytes (%) (Auto)2019-07-28 05:43:00* Test Item Value Reference Range Interpretation Comments Monocytes (%) (Auto) (test code = 5905-5) 12.6 4.4-11.3 H [facility] McAllenEosinophils (%) (Auto)2019-07-28 05:43:00 * Test Item Value Reference Range Interpretation Comments Eosinophils (%) (Auto) (test code = 713-8) 5.9 0.0-6.0 [facility] McAllenBasophils (%) (Auto)2019-07-28 05:43:00* Test Item Value Reference Range Interpretation Comments Basophils (%) (Auto) (test code = 706-2) 1.1 0.0-1.0 H [facility] McAllenIM GRANULOCYTES %2019-07-28 05:43:00* Test Item Value Reference Range Interpretation Comments IM GRANULOCYTES % (test code = IM GRANULOCYTES %) 0.5 0.0- 1.0 [facility] McAllenNeutrophils # (Auto)2019-07-28 05:43:00* Test Item Value Reference Range Interpretation Comments Neutrophils # (Auto) (test code = 751-8) 1.9 2.1-6.9 L [facility] McAllenLymphocytes # (Auto)2019-07-28 05:43:00* Test Item Value Reference Range Interpretation Comments Lymphocytes # (Auto) (test code = 83514-0) 1.0 1.0-3.2 [facility] McAllenMonocytes # (Auto)2019-07-28 05:43:00* Test Item Value Reference Range Interpretation Comments Monocytes # (Auto) (test code = 742-7) 0.5 0.2-0.8 [facility]AllenEosinophils # (Auto)2019-07-28 05:43:00* Test Item Value Reference Range Interpretation Comments Eosinophils # (Auto) (test code = 711-2) 0.2 0.0-0.4 [facility] McAllenBasophils # (Auto)2019-07-28 05:43:00* Test Item Value Reference Range Interpretation Comments Basophils # (Auto) (test code = 704-7) 0.0 0.0-0.1 [facility] McAllenAbsolute Immature Granulocyte (auto 2019-07-28 05:43:00* Test Item Value Reference Range Interpretation Comments Absolute Immature Granulocyte (auto (dany t code = Absolute Immature Granulocyte (auto) 0.02 0-0.1 [facility] McAllenCHEST SINGLE (PORTABLE)2019-07-27 08:50:00 [place] [address] Patient Name: JOSHUA WHEELER MR #: [id number] : 1960 Age/Sex: 58/M Req #: [id number] Adm Physician: SUNG VAIL MD Ordered by: GERMAIN ARNETT MD Report #: [id number] Location: MED/SURG2 Room/Bed: [facility] [place] Procedure: [id number] DX/CHEST SINGLE (PORTABLE) Exam Date: 07/27/19 Exam [...] COPY TO: GERMAIN ARNETT MD B-Type Natriuretic Pxjjpzr0447-25-00 08:37:00* Test Item Value Reference Range Interpretation Comments B-Type Natriuretic Peptide (test code = 22028-6) 9563.2 0-100 H [facility] McAllenTotal Kcukaqffl6243-36-51 06:21:00* Test Item Value Reference Range Interpretation Comments Total Bilirubin (test code = 1975-2) 0.7 0.2-1.2 [facility] McAllenAspartate Amino Transf (AST/SGOT) 2019-07-27 06:21:00* Test Item Value Reference Range Interpretation Comments Aspartate Amino Transf (AST/SGOT) (test code = Aspartate Amino Transf (AST/SGOT)) 12 5-34 [facility] McAllenAlanine Aminotransferase (ALT/SGPT) 2019-07-27 06:21:00* Test Item Value Reference Range Interpretation Comments Alanine Aminotransferase (ALT/SGPT) (test code = 1742-6) 10 0-55 [facility] McAllenTotal Lkvseza7830-73-65 06:21:00* Test Item Value Reference Range Interpretation Comments Total Protein (test code = 2885-2) 6.2 6.5-8.1 L [facility] McAllenAlbumin2020-03-29 06:21:00* Test Item Value Reference Range Interpretation Comments Albumin (test code = 1751-7) 2.1 3.5-5.0 L [facility]AllenGlobulin2020-03-29 06:21:00* Test Item Value Reference Range Interpretation Comments Globulin (test code = 28829-2) 4.1 2.3-3.5 H [facility] McAllenAlbumin/Globulin Icogu1501-57-58 06:21:00 * Test Item Value Reference Range Interpretation Comments Albumin/Globulin Ratio (test code = 1759-0) 0.5 0.8-2.0 L [facility] McAllenAlkaline Igyhsxjjqqs6582-11-65 06:21:00* Test Item Value Reference Range Interpretation Comments Alkaline Phosphatase (test code = 6768-6) 105 40-150 [facility] McAllenRandom Vancomycin Xltcu3625-03-76 20:29:00* Test Item Value Reference Range Interpretation Comments Random Vancomycin Level (test code = 75298-8) 9.2 [facility] Vancomycin Ygdwl2048-36-55 20:29:00* Test Item Value Reference Range Interpretation Comments Random Vancomycin Level (test code = 20420-8) 9.2 [facility]AllenRansaint [facility] serum or plasma vancomycin measurement (mass/volume)2019-07-25 18:45:00* Test Item Value Reference Range Interpretation Comments Random Vancomycin Level (test code = 17133-1) 9.2 [facility]AllenCoronavirus (PCR)2019-07-25 15:17:00* Test Item Value Reference Range [...] to perform high complexity tests.Specimen sent to [facility] and testing performed by Clinical Pathology [address] [place] [address] [phone] Director: Santos Olvera M.D.[facility] # [id number] [facility] SoutheastCoronavirus (PCR)2019-07-25 15:17:00* Test Item Value Reference Range [...] to perform high complexity tests.Specimen sent to [facility] and testing performed by Clinical Pathology [address] [place] [address] [phone] Director: Santos Olvera M.D.CLIA # [id number] [facility] SINGLE (PORTABLE) 2019-07-25 09:41:00 [place] [address] Patient Name: JOSHUA WHEELER MR #: [id number] : 1960 Age/Sex: 58/M Req #: [id number] Adm Physician: SUNG VAIL MD Ordered by: PHYLLIS GARCIA MD Report #: [id number] Location: MED/SURG2 Room/Bed: 2141 Procedure: [id number] DX/CHEST SINGLE (PORTABLE) Exam [...] CO PY TO: PHYLLIS GARCIA MD Phosphorus Cqokh8167-51-09 05:57:00* Test Item Value Reference Range Interpretation Comments Phosphorus Level (test code = SGQ7202) 1.9 2.3-4.7 L [facility] McAllenMagnesium Tjvmo4925-62-52 05:57:00* Test Item Value Reference Range Interpretation Comments Magnesium Level (test code = 80838-3) 1.8 1.3-2.1 [facility]AllenCHEST SINGLE ([facility]ABLE)2019-07-24 10:32:00 [place] [address] Patient Name: JOSHUA WHEELER MR #: [id number] : 1960 Age/Sex: 58/M Req #: [id number] Adm Physician: Ordered by: PHYLLIS GARCIA MD Report #: [id number] Location: ER Room/Bed: Procedure: 08 DX/CHEST SINGLE (PORTABLE) Exam Date: 07/24/19 [...] 1035 COPY TO: PHYLLIS GARCIA MD Urine AXI1353-60-28 09:48:00* Test Item Value Reference Range Interpretation Comments Urine WBC (test code = 5821-4) 11-20 0-5 H [facility] McAllenUrine FLS9887-33-80 09:48:00* Test Item Value Reference Range Interpretation Comments Urine RBC (test code = 36732-9) 11-20 0-5 H [facility]AllenUrine Qeoutctk8445-05-38 09:48:00* Test Item Value Reference Range Interpretation Comments Urine Bacteria (test code = 21785-3) MODERATE NONE H [facility] McAllenUrine Epithelial Kgbdb6537-82-07 09:48:00 * Test Item Value Reference Range Interpretation Comments Urine Epithelial Cells (test code = 29785-5) MODERATE NONE [facility]AllenUrine Calcium Oxalate Mjuauhol8786-24-40 09:48:00* Test Item Value Reference Range Interpretation Comments Urine Calcium Oxalate Crystals (test code = 5774-5) RARE FE W [facility] McAllenGroup A Streptococcus Bmxkzb0959-65-60 09:48:00* Test Item Value Reference Range Interpretation Comments Group A Streptococcus Screen (test code = 81420-1) NEGATIVE NEG ATIVE [facility] McAllenUrine LJQ3168-65-72 09:48:00* Test Item Value Reference Range Interpretation Comments Urine WBC (test code = 5821-4) 11-20 0-5 H [facility] McAllenUrine QYA9800-68-30 09:48:00* Test Item Value Reference Range Interpretation Comments Urine RBC (test code = 92605-9) 11-20 0-5 H [facility]AllenUrine Qekbwwbr7606-20-82 09:48:00* Test Item Value Reference Range Interpretation Comments Urine Bacteria (test code = 36453-3) MODERATE NONE [facility] Ep[facility]helial Ygryx3110-61-21 09:48:00 * Test Item Value Reference Range Interpretation Comments Urine Epithelial Cells (test code = 68461-8) MODERATE NONE [facility]AllenUrine Calcium Oxalate Ddnkyblk7489-15-89 09:48:00* Test Item Value Reference Range Interpretation Comments Urine Calcium Oxalate Crystals (test code = 5774-5) RARE FE W [facility]AllenGroup A Streptococcus Rylsgu0500-80-25 09:48:00* Test Item Value Reference Range Interpretation Comments Group A Streptococcus Screen (test code = 44617-9) NEGATIVE NEG ATIVE [facility] McAllenInfluenza Virus Types A,B Antigen 2019-07-24 09:39:00* Test Item Value Reference Range Interpretation Comments Influenza Virus Types A,B Antigen (test code = 03295-0) NEGATIVE NEGATIVE [facility] McAllenInfluenza Virus Types A,B Antigen 2019-07-24 09:39:00* Test Item Value Reference Range Interpretation Comments Influenza Virus Types A,B Antigen (test code = 37652-6) NEGATIVE NEGATIVE [facility] McAllenUrine Rvovf7618-97-98 09:37:00* Test Item Value Reference Range Interpretation Comments Urine Color (test code = 5778-6) YELLOW YELLOW [facility]AllenUrine Lvxrqyz9857-54-54 09:37:00* Test Item Value Reference Range Interpretation Comments Urine Clarity (test code = 27826-0) CLEAR CLEAR [facility]AllenUrine Specific Rdlantn4976-68-17 09:37:00 * Test Item Value Reference Range Interpretation Comments Urine Specific Mora (test code = 5811-5) 1.020 1.010-1.02 5 [facility]AllenUrine iX4903-61-78 09:37:00* Test Item Value Reference Range Interpretation Comments Urine pH (test code = 29834-0) 8.5 5-7 [facility]AllenUrine Leukocyte Pnweeanh9859-10-24 09:37:00* Test Item Value Reference Range Interpretation Comments Urine Leukocyte Esterase (test code = 5799-2) NEGATIVE NEGATIVE [facility]AllenUrine Koezyrv8633-24-14 09:37:00* Test Item Value Reference Range Interpretation Comments Urine Nitrite (test code = 58933-0) NEGATIVE NEGATIVE [facility]AllenUrine Mwtzggx7159-64-19 09:37:00* Test Item Value Reference Range Interpretation Comments Urine Protein (test code = 5804-0) >=300 NEGATIVE [facility]AllenUrine Glucose (UA)2019-07-24 09:37:00* Test Item Value Reference Range Interpretation Comments Urine Glucose (UA) (test code = 2349-9) NEGATIVE NEGATIVE [facility]AllenUrine Nrolndu8172-56-93 09:37:00* Test Item Value Reference Range Interpretation Comments Urine Ketones (test code = 16186-0) NEGATIVE NEGATIVE [facility]AllenUrine Njyfgtjivzck3384-37-03 09:37:00* Test Item Value Reference Range Interpretation Comments Urine Urobilinogen (test code = 13510-1) 0.2 0.2-1 [facility]AllenUrine Yslwcmzex2805-36-42 09:37:00* Test Item Value Reference Range Interpretation Comments Urine Bilirubin (test code = 1978-6) NEGATIVE NEGATIVE [facility]AllenUrine Tmlhx9221-30-48 09:37:00* Test Item Value Reference Range Interpretation Comments Urine Blood (test code = 63477-6) TRACE NEGATIVE [facility]AllenUrine Tvsmr0909-31-80 09:37:00* Test Item Value Reference Range Interpretation Comments Urine Color (test code = 5778-6) YELLOW YELLOW [facility]AllenUrine Fhpkjhu2741-52-66 09:37:00* Test Item Value Reference Range Interpretation Comments Urine Clarity (test code = 33453-9) CLEAR CLEAR [facility]AllenUrine Specific Nozlrud1323-54-01 09:37:00 * Test Item Value Reference Range Interpretation Comments Urine Specific Mora (test code = 5811-5) 1.020 1.010-1.02 5 [facility]AllenUrine lW6162-69-90 09:37:00* Test Item Value Reference Range Interpretation Comments Urine pH (test code = 61003-6) 8.5 5-7 [facility]AllenU[facility] Leukocyte Zuqbcyxz9862-18-24 09:37:00* Test Item Value Reference Range Interpretation Comments Urine Leukocyte Esterase (test code = 5799-2) NEGATIVE NEGATIVE [facility]AllenUrine Hgmeaoz5697-53-28 09:37:00* Test Item Value Reference Range Interpretation Comments Urine Nitrite (test code = 37678-4) NEGATIVE NEGATIVE [facility]AllenUrine Xzlajhi3458-60-01 09:37:00* Test Item Value Reference Range Interpretation Comments Urine Protein (test code = 5804-0) >=300 NEGATIVE [facility]AllenUrine Glucose (UA)2019-07-24 09:37:00* Test Item Value Reference Range Interpretation Comments Urine Glucose (UA) (test code = 2349-9) NEGATIVE NEGATIVE [facility]AllenUrine Vdmbpsx9100-42-22 09:37:00* Test Item Value Reference Range Interpretation Comments Urine Ketones (test code = 98475-0) NEGATIVE NEGATIVE [facility]AllenUrine Pusvecojvddz3743-98-32 09:37:00* Test Item Value Reference Range Interpretation Comments Urine Urobilinogen (test code = 26130-4) 0.2 0.2-1 [facility]AllenUrine Jnihuclxi8299-13-97 09:37:00* Test Item Value Reference Range Interpretation Comments Urine Bilirubin (test code = 1978-6) NEGATIVE NEGATIVE [facility]AllenUrine Lbmbr1335-83-83 09:37:00* Test Item Value Reference Range Interpretation Comments Urine Blood (test code = 87474-5) TRACE NEGATIVE [facility] McAllenCalcium oxalate crystals detection in urine sediment by light uxeddxeved7591-89-13 09:14:00* Test Item Value Reference Range Interpretation Comments Urine Calcium Oxalate Crystals (test code = 5774-5) RARE FE W [facility] McAllenInfluenza virus A and B antigen identification by ldqvcgrugxhpxxsyft7335-32-78 08:40:00* Test Item Value Reference Range Interpretation Comments Influenza Virus Types A,B Antigen (test code = 58754-7) NEGATIVE NEGATIVE [facility] Campustreptococcus pyogenes antigen detection in ctesap6216-49-15 08:40:00* Test Item Value Reference Range Interpretation Comments Group A Streptococcus Screen (test code = 63780-1) NEGATIVE NEG ATIVE [facility] McAllenMethylmalonic Uxll8756-23-94 07:50:00* Test Item Value Reference Range Interpretation Comments Methylmalonic Acid (test code = 55299-2) 330 Reference Range:0 - 378 nmol/LDisclaimer: This test was developed and its perfo rmance characteristics determined by [employer]. It has not been cleared or approve d by the Food and Drug Administration.Testing performed by:[employer] [address] [phone]. Solomon Chris [facility] Medical CenterMethylmalonic Zvpc6764-72-96 07:50:00* Test Item Value Reference Range Interpretation Comments Methylmalonic Acid (test code = 56627-6) 330 Reference Range:0 - 378 nmol/LDisclaimer: This test was developed and its perfo rmance characteristics determined by [employer]. It has not been cleared or approve d by the Food and Drug Administration.Testing performed by:[facility] [place] [phone]. Solomon Chris [facility] CenterFungal Kckzm6308-21-59 14:56:00* Test Item Value Reference Range Interpretation Comments Fungal Smear (test code = 69983-1) No Result Data Provided [facility] McAllenFungtn Atgjm2721-20-27 14:56:00* Test Item Value Reference Range Interpretation Comments Fungal Smear (test code = 33796-9) No Result Data Provided [facility]AllenFuformerly [facility] Ejlew1750-30-58 14:56:00* Test Item Value Reference Range Interpretation Comments Fungal Smear (test code = 68119-5) No Result Data Provided [facility] McAllenCreatine Uvkgkf3488-46-50 11:31:00* Test Item Value Reference Range Interpretation Comments Creatine Kinase (test code = 2157-6) 23 30-200 L [facility] McAllenCreatine Rvizvt6115-86-35 11:31:00* Test Item Value Reference Range Interpretation Comments Creatine Kinase (test code = 2157-6) 23 30-200 L [facility] Campuserum or plasma methylmalonate measurement (moles/volume)2019-07-12 10:52:00* Test Item Value Reference Range Interpretation Comments Methylmalonic Acid (test code = 57474-3) 330 Reference Range:0 - 378 nmol/LDisclaimer: This test was developed and its perfo rmance characteristics determined by [employer]. It has not been cleared or approve d by the Food and Drug Administration.Testing performed by:[employer] [address] [place] [phone]. Solomon Chris [facility] Hospitalodium Ptnrg3472-41-24 07:17:00* Test Item Value Reference Range Interpretation Comments Sodium Level (test code = 2951-2) 139 136-145 [facility] McAllenPotassium Kvvce7000-72-85 07:17:00* Test Item Value Reference Range Interpretation Comments Potassium Level (test code = 2823-3) 3.9 3.5-5.1 [facility] McAllenChloride Mfmuo4936-13-65 07:17:00* Test Item Value Reference Range Interpretation Comments Chloride Level (test code = 2075-0) 103 98-107 [facility] McAllenCarbon Dioxide Vefqv6571-50-42 07:17:00* Test Item Value Reference Range Interpretation Comments Carbon Dioxide Level (test code = 2028-9) 31 22-29 H [facility] McAllenAnion Tfe6136-00-98 07:17:00* Test Item Value Reference Range Interpretation Comments Anion Gap (test code = 24367-7) 8.9 8-16 [facility] McAllenBlood Urea Xwadzlvu3381-87-32 07:17:00* Test Item Value Reference Range Interpretation Comments Blood Urea Nitrogen (test code = 3094-0) 16 7-26 [facility] McAllenCreatinine2020-03-14 07:17:00* Test Item Value Reference Range Interpretation Comments Creatinine (test code = 2160-0) 2.49 0.72-1.25 H [facility] McAllenBUN/Creatinine Ewoyb6054-13-62 07:17:00* Test Item Value Reference Range Interpretation Comments BUN/Creatinine Ratio (test code = 3097-3) 6 6-25 [facility] McAllenEstimat Glomerular Filtration Rate 2019-07-12 07:17:00* Test Item Value Reference Range Interpretation Comments Estimat Glomerular Filtration Rate (test code = 080917117) 27 >60 L Ranges were taken from the National Kidney Disease Education Program and the [facility] Kidney Foundation literature.Reference ranges:60 or greater: Nnypfj64-97 ( for 3 consecutive months): Chronic kidney disease 15 or less: Kidney failureSouth Texas Health System McAllenGlucose Gxkjo3042-85-99 07:17:00* Test Item Value Reference Range Interpretation Comments Glucose Level (test code = PTW1104) 102 74-118 [facility] McAllenCalcium Efgxo1321-29-65 07:17:00* Test Item Value Reference Range Interpretation Comments Calcium Level (test code = 80791-8) 8.8 8.4-10.2 [facility] McAllenWhite Blood Tdnvl1808-91-11 06:56:00* Test Item Value Reference Range Interpretation Comments White Blood Count (test code = 6690-2) 5.93 4.8-10.8 [facility] McAllenRed Blood Eoqpw6590-83-67 06:56:00* Test Item Value Reference Range Interpretation Comments Red Blood Count (test code = 789-8) 3.52 4.3-5.7 L [facility] McAllenHemoglobin2020-03-14 06:56:00* Test Item Value Reference Range Interpretation Comments Hemoglobin (test code = 05132-1) 10.0 14.0-18.0 L [facility] McAllenHematocrit2020-03-14 06:56:00* Test Item Value Reference Range Interpretation Comments Hematocrit (test code = 4544-3) 31.0 38.2-49.6 L [facility] McAllenMean Corpuscular Dbykdy3899-36-44 06:56:00* Test Item Value Reference Range Interpretation Comments Mean Corpuscular Volume (test code = 787-2) 88.1 81-99 [facility] McAllenMean Corpuscular Hjkgluqjjp6150-12-98 06:56:00* Test Item Value Reference Range Interpretation Comments Mean Corpuscular Hemoglobin (test code = 785-6) 28.4 28-32 [facility] McAllenMean Corpuscular Hemoglobin Concent 2019-07-12 06:56:00* Test Item Value Reference Range Interpretation Comments Mean Corpuscular Hemoglobin Concent (test code = 786-4) 32.3 31-35 [facility] McAllenRed Cell Distribution Xzbaf1627-96-60 06:56:00* Test Item Value Reference Range Interpretation Comments Red Cell Distribution Width (test code = 46448-9) 18.6 11.7 -14.4 H [facility] McAllenPlatelet Wexyi3502-92-80 06:56:00* Test Item Value Reference Range Interpretation Comments Platelet Count (test code = 777-3) 237 140-360 [facility] McAllenNeutrophils (%) (Auto)2019-07-12 06:56:00 * Test Item Value Reference Range Interpretation Comments Neutrophils (%) (Auto) (test code = 25669-1) 61.1 38.7-80.0 [facility]AllenLymphocytes (%) (Auto)2019-07-12 06:56:00 * Test Item Value Reference Range Interpretation Comments Lymphocytes (%) (Auto) (test code = 736-9) 23.6 18.0-39.1 [facility]AllenMonocytes (%) (Auto)2019-07-12 06:56:00* Test Item Value Reference Range Interpretation Comments Monocytes (%) (Auto) (test code = 5905-5) 9.1 4.4-11.3 [facility]AllenEosinophils (%) (Auto)2019-07-12 06:56:00 * Test Item Value Reference Range Interpretation Comments Eosinophils (%) (Auto) (test code = 713-8) 4.7 0.0-6.0 [facility]AllenBasophils (%) (Auto)2019-07-12 06:56:00* Test Item Value Reference Range Interpretation Comments Basophils (%) (Auto) (test code = 706-2) 1.3 0.0-1.0 H [facility] McAllenIM GRANULOCYTES %2019-07-12 06:56:00* Test Item Value Reference Range Interpretation Comments IM GRANULOCYTES % (test code = IM GRANULOCYTES %) 0.2 0.0- 1.0 [facility] McAllenNeutrophils # (Auto)2019-07-12 06:56:00* Test Item Value Reference Range Interpretation Comments Neutrophils # (Auto) (test code = 751-8) 3.6 2.1-6.9 [facility]AllenLymphocytes # (Auto)2019-07-12 06:56:00* Test Item Value Reference Range Interpretation Comments Lymphocytes # (Auto) (test code = 13147-3) 1.4 1.0-3.2 [facility]AllenMonocytes # (Auto)2019-07-12 06:56:00* Test Item Value Reference Range Interpretation Comments Monocytes # (Auto) (test code = 742-7) 0.5 0.2-0.8 [facility]AllenEosinophils # (Auto)2019-07-12 06:56:00* Test Item Value Reference Range Interpretation Comments Eosinophils # (Auto) (test code = 711-2) 0.3 0.0-0.4 [facility]AllenBasophils # (Auto)2019-07-12 06:56:00* Test Item Value Reference Range Interpretation Comments Basophils # (Auto) (test code = 704-7) 0.1 0.0-0.1 [facility] McAllenAbsolute Immature Granulocyte (auto 2019-07-12 06:56:00* Test Item Value Reference Range Interpretation Comments Absolute Immature Granulocyte (auto (dany t code = Absolute Immature Granulocyte (auto) 0.01 0-0.1 [facility] McAllenABDOMEN-1VIEW (KUB)2019-07-11 14:06:00 [facility] [address] [place] [address] Patient Name: JOSHUA WHEELER MR #: [id number] : 1960 Age/Sex: 58/M Req #: [id number] Adm Physician: BRETT CAZARES MD Ordered by: BRETT CAZARES MD Report #: [id number] Location: [place] [address] Room/Bed: [facility] Procedure: [id number] DX/ABDOMEN-1VIEW (KUB) Exam Date: 07/11/19 Exam Time : 1333 REPORT STATUS: Signed Exa m: DEAN - 2 views Indication: Constipation Comparison: <None.> [...] 07/11/191406 COPY TO: BRETT CAZARES MD Bedside Splkjjz4663-77-08 20:45:00* Test Item Value Reference Range Interpretation Comments Bedside Glucose (test code = 86835-8) 108 70-120 Meter ID: [id number] Texas Health System McAllenYeast identification 2019-07-09 11:00:00* Test Item Value Reference Range Interpretation Comments Fungal Smear (test code = 20731281) HAIDER SPECIES-NOT ALBICANS [facility] A IgM Isgodsdr8734-42-69 14:26:00* Test Item Value Reference Range Interpretation Comments Hepatitis A IgM Antibody (test code = 94984-8) Negative Negativ e [facility] B Surface Fzqjits8846-44-88 14:26:00* Test Item Value Reference Range Interpretation Comments Hepatitis B Surface Antigen (test code = 5196-1) Negative Negat aye [facility] B Core IgM Cijlnnqr6390-99-25 14:26:00* Test Item Value Reference Range Interpretation Comments Hepatitis B Core IgM Antibody (test code = 57332-9) Negative Ne gative [facility] C Tsnvwlgz4026-21-13 14:26:00* Test Item Value Reference Range Interpretation Comments Hepatitis C Antibody (test code = 11077-3) <0.1 0.0-0.9 Negative: < 0.8 Indeterminate: 0.8 - 0.9 Positive: > 0.9 The CDC recommends that a positive HCV antibody result be followed up with a HCV Nucleic Acid Amplification test (366457).Performed at: [address] [id number] Director: Alec Javier MD, Phone: [phone] [facility] Health System [facility]Allen A IgM Antibody 2019-07-08 14:26:00* Test Item Value Reference Range Interpretation Comments Hepatitis A IgM Antibody (test code = 29212-4) Negative Negativ e [facility] B Surface Rykumii4138-11-90 14:26:00* Test Item Value Reference Range Interpretation Comments Hepatitis B Surface Antigen (test code = 5196-1) Negative Negat aye [facility] B Core IgM Sjjrfjtr1343-60-41 14:26:00* Test Item Value Reference Range Interpretation Comments Hepatitis B Core IgM Antibody (test code = 65537-2) Negative Ne gative [facility] C Nrmcfzuc6335-18-51 14:26:00* Test Item Value Reference Range Interpretation Comments Hepatitis C Antibody (test code = 53392-8) <0.1 0.0-0.9 Negative: < 0.8 Indeterminate: 0.8 - 0.9 Positive: > 0.9 The CDC recommends that a positive HCV antibody result be followed up with a HCV Nucleic Acid Amplification test (654670).Performed at: [facility] [id number] Director: Alec Javier MD, Phone: [phone] [facility] Health System [facility] A IgM Antibody 2019-07-08 14:26:00* Test Item Value Reference Range Interpretation Comments Hepatitis A IgM Antibody (test code = 34816-3) Negative Negativ e [facility] C Cbcvhkif9823-99-34 14:26:00* Test Item Value Reference Range Interpretation Comments Hepatitis C Antibody (test code = 98092-6) <0.1 0.0-0.9 Negative: < 0.8 Indeterminate: 0.8 - 0.9 Positive: > 0.9 The CDC recommends that a positive HCV antibody result be followed up with a HCV Nucleic Acid Amplification test (288806).Performed at: [place] [id number] Director: Alec Javier MD, Phone: [phone] [facility] SoutheastCHE[facility] SINGLE ([facility]ABLE) 2019-07-08 07:43:00 [facility] [address] [place] [address] Patient Name: JOSHUA WHEELER MR #: [id number] : 1960 Age/Sex: 58/M Req #: [id number] Adm Physician: BRETT CAZARES MD Ordered by: BRETT CAZARES MD Report #: [id number] Location: [facility] Room/Bed: [place] [address] Procedure: [id number] DX/CHEST SINGLE (PORTABLE) Exam Date: 07/08/19 Exam [...] COPY TO: BRETT CAZARES MD Creatine Kinase [id number] 20:20:00* Test Item Value Reference Range Interpretation Comments Creatine Kinase MB (test code = 76659-4) 2.30 0-5.0 [facility] L1931-01-79 20:20:00* Test Item Value Reference Range Interpretation Comments Troponin I (test code = ZPQ2014) 0.080 0-0.300 [facility] McAllenCreatine Kinase OC0088-79-49 20:20:00* Test Item Value Reference Range Interpretation Comments Creatine Kinase MB (test code = 67431-2) 2.30 0-5.0 [facility] [id number] 20:20:00* Test Item Value Reference Range Interpretation Comments Troponin I (test code = LUX0064) 0.080 0-0.300 [facility] Camp[facility]um or plasma hepatitis A virus IgM antibody detection by ymfvgchsoko3629-48-05 08:30:00* Test Item Value Reference Range Interpretation Comments Hepatitis A IgM Antibody (test code = 05530-5) Negative Negativ e [facility] Campuserum hepatitis C virus antibody zrusfnirb0136-63-05 08:30:00* Test Item Value Reference Range Interpretation Comments Hepatitis C Antibody (test code = 43645-2) <0.1 0.0-0.9 Negative: < 0.8 Indeterminate: 0.8 - 0.9 Positive: > 0.9 The CDC recommends that a positive HCV antibody result be followed up with a HCV Nucleic Acid Amplification test (496624).Performed at: - [address] [id number] Director: Alec Javier MD, Phone: [phone] [facility] Health [facility] McAllenMagnesium Yrzdb2118-08-06 05:10:00* Test Item Value Reference Range Interpretation Comments Magnesium Level (test code = 65465-1) 1.9 1.3-2.1 [facility] HospitalPrfat9274-01-58 05:10:00* Test Item Value Reference Range Interpretation Comments Iron Level (test code = 2498-4) 35 65-175 L [facility] Iron Binding Nvtnpswd9591-79-56 05:10:00* Test Item Value Reference Range Interpretation Comments Total Iron Binding Capacity (test code = 2500-7) 118 261-4 78 L [facility] Iron Vrcjgdxwrr0381-00-25 05:10:00* Test Item Value Reference Range Interpretation Comments Percent Iron Saturation (test code = 2502-3) 30 15-50 [facility]AllenTransferrin2020-03-09 05:10:00* Test Item Value Reference Range Interpretation Comments Transferrin (test code = 3034-6) 84 174-364 L [facility]2020-03-09 05:10:00* Test Item Value Reference Range Interpretation Comments Iron Level (test code = 2498-4) 35 65-175 L [facility] Iron Binding Zkwymxjb6519-18-45 05:10:00* Test Item Value Reference Range Interpretation Comments Total Iron Binding Capacity (test code = 2500-7) 118 261-4 78 L [facility] Iron Inqfzslcpr5048-57-11 05:10:00* Test Item Value Reference Range Interpretation Comments Percent Iron Saturation (test code = 2502-3) 30 15-50 [facility]2020-03-09 05:10:00* Test Item Value Reference Range Interpretation Comments Transferrin (test code = 3034-6) 84 174-364 L [facility]2020-03-09 05:10:00* Test Item Value Reference Range Interpretation Comments Iron Level (test code = 2498-4) 35 65-175 L [facility] Iron Binding Ebpngbhe1182-57-02 05:10:00* Test Item Value Reference Range Interpretation Comments Total Iron Binding Capacity (test code = 2500-7) 118 261-4 78 L [facility] Iron Kozhldknli2841-82-15 05:10:00* Test Item Value Reference Range Interpretation Comments Percent Iron Saturation (test code = 2502-3) 30 15-50 [facility]AllenTransferrin2020-03-09 05:10:00* Test Item Value Reference Range Interpretation Comments Transferrin (test code = 3034-6) 84 174-364 L [facility]AllenCHEST SINGLE (PORTABLE)2019-07-06 16:35:00 [facility] [address] [address] Patient Name: JOSHUA WHEELER MR #: [id number] : 1960 Age/Sex: 58/M Req #: [id number] Adm Physician: Ordered by: ALEX DELUCA NP Report #: [id number] Location: ER Room/Bed: Procedure: [id number] DX/CHEST SINGLE (PORTABLE) Exam Date: 07/06/19 Exam [...] 07/06/19 1639 Transcribed By: LOREE pérez 07/06/19 1189 COPY TO: ALEX DELUCA NP Activated Partial Thromboplast Setn1359-50-53 15:24:00* Test Item Value Reference Range Interpretation Comments Activated Partial Thromboplast Time (test code = 24498-1) 49.7 23.8-35.5 H [facility]AllenActivated Partial Thromboplast Time 2019-07-06 15:24:00* Test Item Value Reference Range Interpretation Comments Activated Partial Thromboplast Time (test code = 32772-5) 49.7 23.8-35.5 H [facility]AllenActivated Partial Thromboplast Time 2019-07-06 15:24:00* Test Item Value Reference Range Interpretation Comments Activated Partial Thromboplast Time (test code = 99993-7) 49.7 23.8-35.5 H [facility]AllenTotal Enamohzxe8297-64-32 15:17:00* Test Item Value Reference Range Interpretation Comments Total Bilirubin (test code = 1975-2) 0.6 0.2-1.2 [facility] McAllenAspartate Amino Transf (AST/SGOT) 2019-07-06 15:17:00* Test Item Value Reference Range Interpretation Comments Aspartate Amino Transf (AST/SGOT) (test code = Aspartate Amino Transf (AST/SGOT)) 20 5-34 [facility]AllenAlanine Aminotransferase (ALT/SGPT) 2019-07-06 15:17:00* Test Item Value Reference Range Interpretation Comments Alanine Aminotransferase (ALT/SGPT) (test code = 1742-6) 11 0-55 [facility]AllenTotal Evtfiwb6458-66-77 15:17:00* Test Item Value Reference Range Interpretation Comments Total Protein (test code = 2885-2) 6.1 6.5-8.1 L [facility] McAllenAlbumin2020-03-08 15:17:00* Test Item Value Reference Range Interpretation Comments Albumin (test code = 1751-7) 1.9 3.5-5.0 L [facility] McAllenGlobulin2020-03-08 15:17:00* Test Item Value Reference Range Interpretation Comments Globulin (test code = 86648-3) 4.2 2.3-3.5 H [facility] McAllenAlbumin/Globulin Elxec4779-97-12 15:17:00 * Test Item Value Reference Range Interpretation Comments Albumin/Globulin Ratio (test code = 1759-0) 0.5 0.8-2.0 L [facility] McAllenAlkaline Xcbevmvkvvw7238-47-38 15:17:00* Test Item Value Reference Range Interpretation Comments Alkaline Phosphatase (test code = 6768-6) 117 40-150 [facility] McAllenProthrombin Pobw2969-79-19 15:13:00* Test Item Value Reference Range Interpretation Comments Prothrombin Time (test code = 5902-2) 14.4 11.9-14.5 [facility] McAllenProthromb Time International Ratio 2019-07-06 15:13:00* Test Item Value Reference Range Interpretation Comments Prothromb Time International Ratio (test code = 6301-6) 1.05 Oral Anticoagulant Therapy INR Values:1. Low Intensity Therapy 1.5 - 2.02 . Moderate Intensity Therapy 2.0 - 3.03. High Intensity Therapy(1) 2.5 - 3. 54. High Intensity Therapy(2) 3.0 - 4.05. Panic Value INR > 5.0 [facility] McAllenProthrombin Gsnj9136-51-21 15:13:00* Test Item Value Reference Range Interpretation Comments Prothrombin Time (test code = 5902-2) 14.4 11.9-14.5 [facility] McAllenProthromb Time International Ratio 2019-07-06 15:13:00* Test Item Value Reference Range Interpretation Comments Prothromb Time International Ratio (test code = 6301-6) 1.05 Oral Anticoagulant Therapy INR Values:1. Low Intensity Therapy 1.5 - 2.02 . Moderate Intensity Therapy 2.0 - 3.03. High Intensity Therapy(1) 2.5 - 3. 54. High Intensity Therapy(2) 3.0 - 4.05. Panic Value INR > 5.0 [facility] McAllenProthrombin Zubr4938-49-57 15:13:00* Test Item Value Reference Range Interpretation Comments Prothrombin Time (test code = 5902-2) 14.4 11.9-14.5 [facility] McAllenProthromb Time International Ratio 2019-07-06 15:13:00* Test Item Value Reference Range Interpretation Comments Prothromb Time International Ratio (test code = 6301-6) 1.05 Oral Anticoagulant Therapy INR Values:1. Low Intensity Therapy 1.5 - 2.02 . Moderate Intensity Therapy 2.0 - 3.03. High Intensity Therapy(1) 2.5 - 3. 54. High Intensity Therapy(2) 3.0 - 4.05. Panic Value INR > 5.0 [facility] McAllenProthrombin time (PT) in platelet poor plasma by coagulation teseb4945-82-87 14:10:00* Test Item Value Reference Range Interpretation Comments Prothrombin Time (test code = 5902-2) 14.4 11.9-14.5 [facility] McAllenINR in Platelet poor plasma by Coagulation rxmem9694-72-93 14:10:00* Test Item Value Reference Range Interpretation Comments Prothromb Time International Ratio (test code = 6301-6) 1.05 Oral Anticoagulant Therapy INR Values:1. Low Intensity Therapy 1.5 - 2.02 . Moderate Intensity Therapy 2.0 - 3.03. High Intensity Therapy(1) 2.5 - 3. 54. High Intensity Therapy(2) 3.0 - 4.05. Panic Value INR > 5.0 [facility]AllenActivated partial thromboplastin time (aPTT) in platelet poor plasma by coagulation sjvff1309-62-69 14:10:00* Test Item Value Reference Range Interpretation Comments Activated Partial Thromboplast Time (test code = 67696-6) 49.7 23.8-35.5 [facility]AllenRAD, CHEST, 2 ZMZSN8810-95-62 13:56:00 PCP- Dr. Kiran Garduno [address] [place] [phone] for Exam:->removed chest tubeFINAL REPORT INDICATION: removed chest tube COMPARISON: Earlier same day TECHNIQUE: Frontal and lateral views of the chest. FINDINGS: Lungs and pleura: Right greater than left effusion and adjacent compressive atelectasis, not significantly changed Heart and mediastinum: Normal heart size. Unremarkable mediastinal contours.Osseous structures: No acute abnormality.Additional findings: None. Signed: Marley Jayort Verified Date/Time: 07/01/2019 13:56:42 Reading Location: [facility] Reading Room , CHEST, 2 VIEWS 2019-07-01 12:44:00PCP- Dr. Kiran Garduno [address] [place] [phone] Reason for Exam:->Chest tubeFINAL REPORT INDICATION: Chest [...] ort Verified Date/Time: 07/01/2019 12:44:23 Reading Location: [facility] iology Reading Room Electronically signed by: MARLEY JAY MD on 0 07/01/2019 12:44 PM Bedside Sckipbh6842-22-23 14:39:00* Test Item Value Reference Range Interpretation Comments Bedside Glucose (test code = 10009-4) 126 70-120 H Meter ID: [id number] [facility] SINGLE (PORTABLE)2019-06-04 14:23:00 [facility] [address] [address] Patient Name: JOSHUA WHEELER MR #: [id number] : 1960 Age/Sex: 58/M Req #: [id number] Adm Physician: BRETT CAZARES MD Ordered by: BRETT CAZARES MD Report #: [id number] Location: [facility] Room/Bed: [address] [address] Procedure: [id number] DX/CHEST SINGLE (PORTABLE) Exam Date: 06/04/19 Exam [...] ELAINE MD 24 Transcribed By: LOREE on 06/04/19 142 COPY TO: LORY CAZARES MD Platelet Morphology Rltfcwd4091-75-17 07:19:00* Test Item Value Reference Range Interpretation Comments Platelet Morphology Comment (test code = 55049-4) NO EDTA PLT CLUMP S [facility] McAllenPlatelet Morphology Nvysmwt0183-66-80 07:19:00* Test Item Value Reference Range Interpretation Comments Platelet Morphology Comment (test code = 95533-8) NO EDTA PLT CLUMP S [facility] McAllenPlatelet Morphology Lddvegs2908-38-47 07:19:00* Test Item Value Reference Range Interpretation Comments Platelet Morphology Comment (test code = 39582-9) NO EDTA PLT CLUMP [facility]Pl[facility]ology Nvuxyje3141-99-05 07:19:00* Test Item Value Reference Range Interpretation Comments Platelet Morphology Comment (test code = 56406-9) NO EDTA PLT CLUMP S [facility] Campusodium Tzadh4947-67-51 05:54:00* Test Item Value Reference Range Interpretation Comments Sodium Level (test code = 2951-2) 131 136-145 L [facility] McAllenPotassium Aafsy9105-21-51 05:54:00* Test Item Value Reference Range Interpretation Comments Potassium Level (test code = 2823-3) 3.9 3.5-5.1 [facility] McAllenChloride Cgkxr3012-82-47 05:54:00* Test Item Value Reference Range Interpretation Comments Chloride Level (test code = 2075-0) 94 98-107 L [facility] McAllenCarbon Dioxide Hfsjp0998-81-92 05:54:00* Test Item Value Reference Range Interpretation Comments Carbon Dioxide Level (test code = 2028-9) 24 22-29 [facility] McAllenAnion Zvw2399-12-84 05:54:00* Test Item Value Reference Range Interpretation Comments Anion Gap (test code = 74607-0) 16.9 8-16 H [facility] McAllenBlood Urea Ubmqxbym4670-13-65 05:54:00* Test Item Value Reference Range Interpretation Comments Blood Urea Nitrogen (test code = 3094-0) 36 7-26 H [facility] McAllenCreatinine2020-02-05 05:54:00* Test Item Value Reference Range Interpretation Comments Creatinine (test code = 2160-0) 5.83 0.72-1.25 H [facility] McAllenBUN/Creatinine Vdbae1321-59-15 05:54:00* Test Item Value Reference Range Interpretation Comments BUN/Creatinine Ratio (test code = 3097-3) 6 6-25 [facility] McAllenEstimat Glomerular Filtration Rate 2019-06-04 05:54:00* Test Item Value Reference Range Interpretation Comments Estimat Glomerular Filtration Rate (test code = 139526073) 10 >60 L Ranges were taken from the National Kidney Disease Education Program and the [facility] Kidney Foundation literature.Reference ranges:60 or greater: Pqpalh61-81 ( for 3 consecutive months): Chronic kidney disease 15 or less: Kidney failureSouth Texas Health System McAllenGlucose Rmxoo3207-48-90 05:54:00* Test Item Value Reference Range Interpretation Comments Glucose Level (test code = IJO0421) 81 74-118 [facility] McAllenCalcium Ypbki4730-64-45 05:54:00* Test Item Value Reference Range Interpretation Comments Calcium Level (test code = 79987-4) 7.8 8.4-10.2 L [facility] McAllenWhite Blood Hybrx4101-78-93 05:34:00* Test Item Value Reference Range Interpretation Comments White Blood Count (test code = 6690-2) 7.40 4.8-10.8 [facility] McAllenRed Blood Ehoql6375-01-63 05:34:00* Test Item Value Reference Range Interpretation Comments Red Blood Count (test code = 789-8) 3.29 4.3-5.7 L [facility] McAllenHemoglobin2020-02-05 05:34:00* Test Item Value Reference Range Interpretation Comments Hemoglobin (test code = 40765-4) 9.7 14.0-18.0 L [facility] McAllenHematocrit2020-02-05 05:34:00* Test Item Value Reference Range Interpretation Comments Hematocrit (test code = 4544-3) 27.8 38.2-49.6 L [facility] McAllenMean Corpuscular Hzlebe0344-46-00 05:34:00* Test Item Value Reference Range Interpretation Comments Mean Corpuscular Volume (test code = 787-2) 84.5 81-99 [facility] McAllenMean Corpuscular Ozpxmrwfbi4131-20-43 05:34:00* Test Item Value Reference Range Interpretation Comments Mean Corpuscular Hemoglobin (test code = 785-6) 29.5 28-32 [facility] McAllenMean Corpuscular Hemoglobin Concent 2019-06-04 05:34:00* Test Item Value Reference Range Interpretation Comments Mean Corpuscular Hemoglobin Concent (test code = 786-4) 34.9 31-35 [facility] McAllenRed Cell Distribution Xxuko4827-28-60 05:34:00* Test Item Value Reference Range Interpretation Comments Red Cell Distribution Width (test code = 50166-7) 13.7 11.7 -14.4 [facility] McAllenPlatelet Omggj3664-86-57 05:34:00* Test Item Value Reference Range Interpretation Comments Platelet Count (test code = 777-3) 136 140-360 L [facility] McAllenNeutrophils (%) (Auto)2019-06-04 05:34:00 * Test Item Value Reference Range Interpretation Comments Neutrophils (%) (Auto) (test code = 51411-1) 68.2 38.7-80.0 [facility] McAllenLymphocytes (%) (Auto)2019-06-04 05:34:00 * Test Item Value Reference Range Interpretation Comments Lymphocytes (%) (Auto) (test code = 736-9) 12.6 18.0-39.1 L [facility] McAllenMonocytes (%) (Auto)2019-06-04 05:34:00* Test Item Value Reference Range Interpretation Comments Monocytes (%) (Auto) (test code = 5905-5) 14.2 4.4-11.3 H [facility] McAllenEosinophils (%) (Auto)2019-06-04 05:34:00 * Test Item Value Reference Range Interpretation Comments Eosinophils (%) (Auto) (test code = 713-8) 3.6 0.0-6.0 [facility] McAllenBasophils (%) (Auto)2019-06-04 05:34:00* Test Item Value Reference Range Interpretation Comments Basophils (%) (Auto) (test code = 706-2) 1.1 0.0-1.0 H [facility] McAllenIM GRANULOCYTES %2019-06-04 05:34:00* Test Item Value Reference Range Interpretation Comments IM GRANULOCYTES % (test code = IM GRANULOCYTES %) 0.3 0.0- 1.0 [facility] McAllenNeutrophils # (Auto)2019-06-04 05:34:00* Test Item Value Reference Range Interpretation Comments Neutrophils # (Auto) (test code = 751-8) 5.1 2.1-6.9 [facility] McAllenLymphocytes # (Auto)2019-06-04 05:34:00* Test Item Value Reference Range Interpretation Comments Lymphocytes # (Auto) (test code = 56873-9) 0.9 1.0-3.2 L [facility] McAllenMonocytes # (Auto)2019-06-04 05:34:00* Test Item Value Reference Range Interpretation Comments Monocytes # (Auto) (test code = 742-7) 1.1 0.2-0.8 H [facility] McAllenEosinophils # (Auto)2019-06-04 05:34:00* Test Item Value Reference Range Interpretation Comments Eosinophils # (Auto) (test code = 711-2) 0.3 0.0-0.4 [facility] McAllenBasophils # (Auto)2019-06-04 05:34:00* Test Item Value Reference Range Interpretation Comments Basophils # (Auto) (test code = 704-7) 0.1 0.0-0.1 [facility] McAllenAbsolute Immature Granulocyte (auto 2019-06-04 05:34:00* Test Item Value Reference Range Interpretation Comments Absolute Immature Granulocyte (auto (dany t code = Absolute Immature Granulocyte (auto) 0.02 0-0.1 [facility] McAllenPlatelet gwvxjlxsbz4620-15-76 04:10:00* Test Item Value Reference Range Interpretation Comments Platelet Morphology Comment (test code = 83392-5) See Comment NO EDTA PLT CLUMPSSouth Texas Health System McAllenIron Gxfpj5208-56-36 06:38:00* Test Item Value Reference Range Interpretation Comments Iron Level (test code = 2498-4) 104 65-175 [facility] McAllenTotal Iron Binding Wospnuvs0213-32-80 06:38:00* Test Item Value Reference Range Interpretation Comments Total Iron Binding Capacity (test code = 2500-7) 139 261-4 78 L [facility] McAllenPercent Iron Ssicctcnrb2949-90-58 06:38:00* Test Item Value Reference Range Interpretation Comments Percent Iron Saturation (test code = 2502-3) 75 15-50 H [facility] McAllenTransferrin2020-02-03 06:38:00* Test Item Value Reference Range Interpretation Comments Transferrin (test code = 3034-6) 99 174-364 L [facility] McAllenCHEST SINGLE (PORTABLE)2019-06-01 15:53:00 [facility] [address] [address] Patient Name: JOSHUA WHEELER MR #: [id number] : 1960 Age/Sex: 58/M Req #: [id number] Adm Physician: BRETT CAZARES MD Ordered by: ADRIEN CABRAL DIRECTOR OF FIELD SERVICE Report #: [id number] Location: [facility] Room/Bed: [place] [address] Procedure: [id number] DX/CHEST SINGLE (PORTABLE) Exam Date: 06/01/19 Exam Time: 1530 REPORT STATUS: Signed EXAMINATION: CHEST SINGLE (PORTABLE) COMPARISON: Chest x-ray performed earlier same day INDICATION: [id number] DISCUSSION: HEART AND MEDIASTINUM: Stable cardiomegaly LINES: [...] ed By: LOREE on 06/01/191557 COPY TO: ADRIEN CABRAL NP Stool Occult Isbtj2275-11-92 15:25:00* Test Item Value Reference Range Interpretation Comments Stool Occult Blood (test code = 2335-8) NEGATIVE NEGATIVE [facility] Occult Miigd1093-20-56 15:25:00* Test Item Value Reference Range Interpretation Comments Stool Occult Blood (test code = 2335-8) NEGATIVE NEGATIVE [facility] Occult Jhwfw5067-43-05 15:25:00* Test Item Value Reference Range Interpretation Comments Stool Occult Blood (test code = 2335-8) NEGATIVE NEGATIVE [facility] Occult Gkwrn5272-70-37 15:25:00* Test Item Value Reference Range Interpretation Comments Stool Occult Blood (test code = 2335-8) NEGATIVE NEGATIVE [facility] McAllenCHES 2 BDDMV0930-19-41 08:00:00 [facility] [address] [address] Patient Name: JOSHUA WHEELER MR #: [id number] : 1960 Age/Sex: 58/M Req #: [id number] Adm Physician: BRETT CAZARES MD Ordered by: KEN SCOTT MD Report #: [id number] Location: [facility] Room/Bed: [place] [address] Procedure: [id number] DX /CHEST 2 VIEWS Exam Date: 06/01/19 [...] AM Di ctated By: REZA MOONEY MD 0809 Transcribed By: LOREE on 06/01/19 0809 COPY TO: KEN CHANEL MD Total Gmupdbplx1804-29-04 06:02:00* Test Item Value Reference Range Interpretation Comments Total Bilirubin (test code = 1975-2) 0.8 0.2-1.2 [facility] McAllenAspartate Amino Transf (AST/SGOT) 2019-05-31 06:02:00* Test Item Value Reference Range Interpretation Comments Aspartate Amino Transf (AST/SGOT) (test code = Aspartate Amino Transf (AST/SGOT)) 25 5-34 [facility] McAllenAlanine Aminotransferase (ALT/SGPT) 2019-05-31 06:02:00* Test Item Value Reference Range Interpretation Comments Alanine Aminotransferase (ALT/SGPT) (test code = 1742-6) 20 0-55 [facility] McAllenTotal Vpaocqa7033-14-82 06:02:00* Test Item Value Reference Range Interpretation Comments Total Protein (test code = 2885-2) 6.3 6.5-8.1 L [facility] McAllenAlbumin2020-02-01 06:02:00* Test Item Value Reference Range Interpretation Comments Albumin (test code = 1751-7) 2.3 3.5-5.0 L [facility] McAllenGlobulin2020-02-01 06:02:00* Test Item Value Reference Range Interpretation Comments Globulin (test code = 70160-0) 4.0 2.3-3.5 H [facility] McAllenAlbumin/Globulin Bbkhd5746-66-55 06:02:00 * Test Item Value Reference Range Interpretation Comments Albumin/Globulin Ratio (test code = 1759-0) 0.6 0.8-2.0 L [facility] McAllenAlkaline Bvteotddgoj0809-15-37 06:02:00* Test Item Value Reference Range Interpretation Comments Alkaline Phosphatase (test code = 6768-6) 128 40-150 [facility] McAllenCHEST SINGLE (PORTABLE)2019-05-30 06:43:00 [facility] [address] [address] Patient Name: JOSHUA WHEELER MR #: [id number] : 1960 Age/Sex: 58/M Req #: [id number] Adm Physician: BRETT CAZARES MD Ordered by: MARILIN JUAN MD Report #: [id number] Location: [facility] Room/Bed: [place] [address] Procedure: [id number] DX/CHEST SINGLE (PORTABLE) Exam Date: 05/30/19 Exam [...] 05/30/19644 COPY TO: MARILIN JUAN MD Phosphorus Rzrdk2233-97-73 06:27:00* Test Item Value Reference Range Interpretation Comments Phosphorus Level (test code = NYS3535) 1.0 2.3-4.7 L [facility] McAllenMagnesium Gnzzg1416-70-65 06:27:00* Test Item Value Reference Range Interpretation Comments Magnesium Level (test code = 37728-5) 2.0 1.3-2.1 [facility] McAllenPhosphorus Bbcfo9030-69-77 06:27:00* Test Item Value Reference Range Interpretation Comments Phosphorus Level (test code = MQQ6405) 1.0 2.3-4.7 L [facility] McAllenCHEST SINGLE (PORTABLE)2019-05-29 19:34:00 [facility] [address] [id number] Patient Name: JOSHUA WHEELER MR #: [id number] : 1960 Age/Sex: 58/M Req #: [id number] Adm Physician: BRETT CAZARES MD Ordered by: MARILIN JUAN MD Report #: [id number] Location: [facility] Room/Bed: [place] [address] Procedure: [id number] DX/CHEST SINGLE (PORTABLE) Exam Date: Exam Time: [...] MARILIN JUAN MD CHEST SINGLE (PORTABLE)2019-05-29 06:00:00 [facility] [address] [address] Patient Name: JOSHUA WHEELER MR #: [id number] : 1960 Age/Sex: 58/M Req #: [id number] Adm Physician: BRETT CAZARES MD Ordered by: MARILIN JUAN MD Report #: [id number] Location: [facility] Room/Bed: [facility] 1991 Procedure: [id number] DX/CHEST SINGLE (PORTABLE) Exam Date: 05/29/19 Exam [...] MARILIN JUAN MD CHEST SINGLE (PORTABLE)2019-05-28 15:04:00 [place] [address] Patient Name: JOSHUA WHEELER MR #: [id number] : 1960 Age/Sex: 58/M Req #: [id number] Adm Physician: BRETT CAZARES MD Ordered by: MARILIN JUAN MD Report #: [id number] Location: [facility] Room/Bed: [place] [address] Procedure: [id number] DX/CHEST SINGLE (PORTABLE) Exam Date: Exam Time: [...] 3:08 PM Dictated By: LIZ OROZCO MD 3808 Transcribed By: LOREE on 05/28/19 2557 COPY TO: MARILIN GORDON MD CHEST SINGLE (PORTABLE)2019-05-28 06:04:00 [place] [address] Patient Name: JOSHUA WHEELER MR #: [id number] : 1960 Age/Sex: 58/M Req #: [id number] [facility] Physician: BRETT CAZARES MD Ordered by: MARILIN JUAN MD Report #: [id number] Location: [facility] Room/Bed: [place] [address] Procedure: [id number] DX/CHEST SINGLE (PORTABLE) Exam Date: Exam Time: [...] LOPEZ MD Elect ronically Signed By: WES LOPZE MD on 05/28/19605 Transcribed By: YOSEPH DAVID on 05/28/19605 COPY TO: MARILIN JUAN MD CHEST SINGLE (PORTABLE)2019-05-27 05:49:00 [place] [address] Patient Name: JOSHUA WHEELER MR #: [id number] : 1960 Age/Sex: 58/M Req #: [id number] [facility] Physician: BRETT CAZARES MD Ordered by: MARILIN JUAN MD Report #: [id number] Location: [facility] Room/Bed: [place] [address] Procedure: [id number] DX/CHEST SINGLE (PORTABLE) Exam Date: 05/27/19 Exam [...] 5:52 AM Dictated By: ROHIT LOPEZ MD 055 2 Transcribed By: LOREE on 05/27/1952 COPY TO: MARILIN JUAN MD Percent Reticulocyte Vnrqx6353-92-91 05:47:00* Test Item Value Reference Range Interpretation Comments Percent Reticulocyte Count (test code = 63331-0) 1.6 0.8-2 .2 [facility] Reticulocyte Btfid1002-17-61 05:47:00* Test Item Value Reference Range Interpretation Comments Percent Reticulocyte Count (test code = 26503-4) 1.6 0.8-2 .2 [facility]Percent Reticulocyte Btblz5513-66-81 05:47:00* Test Item Value Reference Range Interpretation Comments Percent Reticulocyte Count (test code = 02058-6) 1.6 0.8-2 .2 [facility]AllenPercent Reticulocyte Qajbt7650-06-27 05:47:00* Test Item Value Reference Range Interpretation Comments Percent Reticulocyte Count (test code = 16111-4) 1.6 0.8-2 .2 [facility] McAllenAutomated reticulocyte count as percentage of total ascykcwlqscn9535-89-40 04:28:00* Test Item Value Reference Range Interpretation Comments Percent Reticulocyte Count (test code = 34923-4) 1.6 0.8-2 .2 [facility] McAllenCT CHEST DK8153-06-90 09:39:00 [facility] [address] [place] [address] Patient Name: JOSHUA WHEELER MR #: [id number] : 1960 Age/Sex: 58/M Req #: [id number] Adm Physician: BRETT CAZARES MD Ordered by: MARILIN JUAN MD Report #: [id number] Location: [facility] Room/Bed: [place] [address] Procedure: [id number] CT/CT CHEST WO Exam Date: 05/26/19 Exam [...] MARILIN JUAN MD CHEST SINGLE (PORTABLE)2019-05-26 09:12:00 [place] [address] Patient Name: JOSHUA WHEELER MR #: [id number] : 1960 Age/Sex: 58/M Req #: [id number] Adm Physician: BRETT CAZARES MD Ordered by: MARILIN JUAN MD Report #: [id number] Location: [facility] Room/Bed: [place] [address] Procedure: [id number] DX/CHEST SINGLE (PORTABLE) Exam Date: 05/26/19 Exam [...] MARILIN JUAN MD CHEST SINGLE (PORTABLE)2019-05-25 09:37:00 [place] [address] Patient Name: JOSHUA WHEELER MR #: [id number] : 1960 Age/Sex: 58/M Req #: [id number] Adm Physician: BRETT CAZARES MD Ordered by: MARILIN JUAN MD Report #: [id number] Location: [facility] Room/Bed: [place] [address] Procedure: [id number] DX/CHEST SINGLE (PORTABLE) Exam Date: 05/25/19 Exam [...] MARILIN JUAN MD CHEST SINGLE (PORTABLE)2019-05-24 08:42:00 [place] [address] Patient Name: JOSHUA WHEELER MR #: [id number] : 1960 Age/Sex: 58/M Req #: [id number] Adm Physician: BRETT CAZARES MD Ordered by: MARILIN JUAN MD Report #: [id number] Location: [facility] Room/Bed: [place] [address] Procedure: [id number] DX/CHEST SINGLE (PORTABLE) Exam Date: 05/24/19 Exam [...] MARILIN JUAN MD CHEST SINGLE (PORTABLE)2019-05-23 08:45:00 [place] [address] Patient Name: JOSHUA WHEELER MR #: [id number] : 1960 Age/Sex: 58/M Req #: [id number] Adm Physician: BRETT CAZARES MD Ordered by: MARILIN JUAN MD Report #: [id number] Location: [facility] Room/Bed: [place] [address] Procedure: [id number] DX/CHEST SINGLE (PORTABLE) Exam Date: 05/23/19 Exam [...] MD 084 6 Transcribed By: LOREE on 05/23/1946 COPY TO: MARILIN JUAN MD Hepatitis B Surface Antibody, Sfova4746-94-02 22:43:00* Test Item Value Reference Range Interpretation Comments Hepatitis B Surface Antibody, Quant (test code = 5194-6) >1000.0 Immunity>9.9 Status of Immunity Anti-HBs Level Inconsistent with Immunity 0.0 - 9.9Consistent with Immunity >9.9[facility] B Core Total Cqnpvaop8107-32-46 22:43:00* Test Item Value Reference Range Interpretation Comments Hepatitis B Core Total Antibody (test code = 15902-3) Negative Negative Performed at: [facility] [address] [id number] Director: Alec Javier MD, Phone: [phone] [facility] McAllenHemayers [facility] B Surface Lqfccie5017-12-55 22:43:00* Test Item Value Reference Range Interpretation Comments Hepatitis B Surface Antigen (test code = 5196-1) Negative Negat aye [facility] B Surface Antibody, Quant 2019-05-22 22:43:00* Test Item Value Reference Range Interpretation Comments Hepatitis B Surface Antibody, Quant (test code = 5194-6) >1000.0 Immunity>9.9 Status of Immunity Anti-HBs Level Inconsistent with Immunity 0.0 - 9.9Consistent with Immunity >9.9[facility] B Core Total Sweimaur6493-52-31 22:43:00* Test Item Value Reference Range Interpretation Comments Hepatitis B Core Total Antibody (test code = 30974-9) Negative Negative Performed at: [facility] [address] [id number] Director: Alec Javier MD, Phone: [phone] Texas Health System McAllenHepatitis B Surface Antibody, Mehti0873-46-10 22:43:00* Test Item Value Reference Range Interpretation Comments Hepatitis B Surface Antibody, Quant (test code = 5194-6) >1000.0 Immunity>9.9 Status of Immunity Anti-HBs Level Inconsistent with Immunity 0.0 - 9.9Consistent with Immunity >9.9[facility] B Core Total Heysjrst6026-17-84 22:43:00* Test Item Value Reference Range Interpretation Comments Hepatitis B Core Total Antibody (test code = 99377-1) Negative Negative Performed at: - [facility] [id number] Director: Alec Javier MD, Phone: [phone] Texas Health System McAllenDECLOT VASC IMPLANT/THROMB YN4962-00-65 17:02:00 [place] [address] Patient Name: JOSHUA WHEELER MR #: [id number] : 1960 Age/Sex: 58/M Req #: [id number] Adm Physician: BRETT CAZARES MD Ordered by: ANGEL NARAYAN, GERSON NARAYAN Report #: [id number] Location: [facility] Room/Bed: [place] [address] Procedure: [id number] IR/DECLOT VASC IMPLANT/THROMB AG Exam Date: Exam T dorian: REPORT STATUS: Signed A V fistula declot, 05/22/2019. History: ESRD, clotted AV fistula. Com parison: None available. Mental Health Counselor: Dr. Elaine. Medication: 5 cc of 1% [...] sheath i nto the vein. A 6 Kyrgyz sheath was placed. The patient was given 5000 units o f heparin intravenously. A Trerotola device was used for mechanical thrombecto my with simultaneous infusion within the fistula of 2 mg of TPA. Second access was obtained within the fistula towards the arterial venous anastomosis, with a second 6 Kyrgyz sheath placed. The anastomosis was crossed with [...] 1 713 Transcribed By: LOREE on 05/22/19 9251 COPY TO: GERSON ORTIZ CHEST 2 QXTUA4748-15-08 13:40:00 [facility] [address] [place] [address] Patient Name: JOSHUA WHEELER MR #: [id number] : 1960 Age/Sex: 58/M Req #: [id number] Adm Physician: BRETT CAZARES MD Ordered by: MARILIN JUAN MD Report #: [id number] Location: [facility] Room/Bed: [place] [address] Procedure: [id number] DX/CHEST 2 VIEWS Exam Date: 05/22/19 Exam Time: 1100 REPORT STATUS: Signed Chest, 2 views. Clinical history: Evaluate prior to removal of chest tube. [facility]. Findings: The cardiacs [...] MARILIN JUAN MD CHEST SINGLE (PORTABLE)2019-05-21 14:22:00 [facility] [address] [place] [address] Patient Name: JOSHUA WHEELER MR #: [id number] : 1960 Age/Sex: 58/M Req #: [id number] Adm Physician: BRETT CAZARES MD Ordered by: KEN SCOTT MD Report #: [id number] Location: [facility] Room/Bed: [place] [address] Procedure: [id number] DX /CHEST SINGLE (PORTABLE) Exam Date: 05/21/19 [...] COPY TO: KEN SCOTT MD CHEST 2 NLLAF8747-29-89 18:21:00 [place] [address] Patient Name: JOSHUA WHEELER MR #: [id number] : 1960 Age/Sex: 58/M Req #: [id number] Adm Physician: BRETT CAZARES MD Ordered by: KEN SCOTT MD Report #: [id number] Location: [facility] Room/Bed: [facility] 1991 Procedure: [id number] DX /CHEST 2 VIEWS Exam Date: 05/20/19 [...] KEN SCOTT MD IR CONSULT 2019-05-20 18:04:00 [place] [address] Patient Name: JOSHUA WHEELER MR #: [id number] : 1960 Age/Sex: 58/M Req #: [id number] [facility] Physician: BRETT CAZARES MD Ordered by: ANGEL NARAYAN, GERSON NARAYAN Report #: [id number] Location: [facility] Room/Bed: [place] [address] Procedure: DX/IR CONSULT Exam Date: Exam Time: REPORT [...] A sterile dressing was applied. Catheter placed: Pogoapp Trialysis Catheter size (Kyrgyz): [address] length (cm): 20 Catheter [...] COPY TO: ERICA ORTIZ NON-TUNNELLED CVC CATH XPZLCES3755-24-94 18:04:00 [place] [address] Patient Name: JOSHUA WHEELER MR #: [id number] : 1960 Age/Sex: 58/M Req #: [id number] Adm Physician: BRETT CAZARES MD Ordered by: ANGEL NARAYAN, GERSON NARAYAN Report #: [id number] Location: [facility] Room/Bed: [place] [address] Procedure: [id number] IR/NON-TUNNELLED CVC CATH PLACMNT Exam Date: 05/20/19 Exam Time: 1645 REPORT STATUS: S igned PROCEDURE: Non-tunneled central venous catheter placement Procedur al Personnel Attending physician(s): Kevin Banda MD Fellow physician(s): Alicia castillo Resident physician(s): None Advanced practice provider(s): None [...] Catheter placed: Bard Trialysis Ca theter size (Kyrgyz): 13 Catheter length (cm): 20 Catheter flush: [...] on 05/27/19 1208 COPY TO: GERSON ORTIZ US GUIDANCE FOR VASCULAR ACCES 2019-05-20 18:04:00 [place] [address] Patient Name: JOSHUA WHEELER MR #: [id number] : 1960 Age/Sex: 58/M Req #: [id number] Adm Physician: BRETT CAZARES MD Ordered by: GERSON ORTIZ MD, MD Report #: [id number] Location: [facility] Room/Bed: [place] [address] Procedure: [id number] US/US GUIDANCE FOR VASCULAR ACCES Exam Date: [...] Catheter placed: Bard Trialysis Ca theter size (Kyrgyz): 13 Catheter length (cm): 20 Catheter flush: [...] LOREE on 05/27/191207 COPY TO: GERSON ORTIZ [facility] OR REM 2019-05-20 18:04:00 [place] [address] Patient Name: JOSHUA WHEELER MR #: [id number] : 1960 Age/Sex: 58/M Req #: [id number] Adm Physician: BRETT CAZARES MD Ordered by: ANGEL NARAYAN, GERSON NARAYAN Report #: [id number] Location: [facility] Room/Bed: [place] [address] Procedure: [id number] IR/[facility] OR REM Exam [...] Catheter placed: Bard Trialysis Ca theter size (Kyrgyz): 13 Catheter length (cm): 20 Catheter flush: [...] TO: GERSON ORTIZ CHEST SINGLE (PORTABLE)2019-05-19 11:54:00 [place] [address] Patient Name: JOSHUA WHEELER MR #: [id number] : 1960 Age/Sex: 58/M Req #: [id number] Adm Physician: BRETT CAZARES MD Ordered by: MARILIN JUAN MD Report #: [id number] Location: [facility] Room/Bed: [place] [address] Procedure: [id number] DX/CHEST SINGLE (PORTABLE) Exam Date: 05/19/19 Exam [...] ctronically Signed By: KEVIN BANDA MD on 01/20/20 1157 Transcribed By: LOREE pérez 05/19/19 1157 COPY TO: MARILIN JUAN MD CHEST SINGLE (PORTABLE)2019-05-19 07:55:00 [place] [address] Patient Name: JOSHUA WHEELER MR #: [id number] : 1960 Age/Sex: 58/M Req #: [id number] Adm Physician: BRETT CAZARES MD Ordered by: KEN SCOTT MD Report #: [id number] Location: [facility] Room/Bed: [place] [address] Procedure: [id number] DX /CHEST SINGLE (PORTABLE) Exam Date: 05/19/19 [...] AM Dictated By: ARLEEN VIDAL MD, MD 075 Transcribed By: LOREE on 05/19/19756 COPY TO: KEN SCOTT MD Prothrombin Pddg2202-88-08 05:53:00* Test Item Value Reference Range Interpretation Comments Prothrombin Time (test code = 5902-2) 13.6 11.9-14.5 [facility]AllenProthromb Time International Ratio 2019-05-19 05:53:00* Test Item Value Reference Range Interpretation Comments Prothromb Time International Ratio (test code = 6301-6) 0.99 Oral Anticoagulant Therapy INR Values:1. Low Intensity Therapy 1.5 - 2.02 . Moderate Intensity Therapy 2.0 - 3.03. High Intensity Therapy(1) 2.5 - 3. 54. High Intensity Therapy(2) 3.0 - 4.05. Panic Value INR > 5.0 [facility]Allen[facility]ST SINGLE (PORTABLE)2019-05-17 06:35:00 [facility] [address] [place] [address] Patient Name: JOSHUA WHEELER MR #: [id number] : 1960 Age/Sex: 58/M Req #: [id number] Adm Physician: BRETT CAZARES MD Ordered by: MARILIN JUAN MD Report #: [id number] Location: ICU Room/Bed: ICU [facility] Procedure: [id number] DX/CHEST SINGLE (PORTABLE) Exam Date: 05/17/19 Exam [...] TO: MARILIN JUAN MD Differential Total Cells Jnpeuky6032-87-93 09:14:00* Test Item Value Reference Range Interpretation Comments Differential Total Cells Counted (test code = Differen tial Total Cells Counted) 100 [facility]AllenNeutrophils % (Manual)2019-05-16 09:14:00 * Test Item Value Reference Range Interpretation Comments Neutrophils % (Manual) (test code = 64300-1) 88 40-74 H [facility]AllenLymphocytes % (Manual)2019-05-16 09:14:00 * Test Item Value Reference Range Interpretation Comments Lymphocytes % (Manual) (test code = 737-7) 4 19-48 L [facility]AllenMonocytes % (Manual)2019-05-16 09:14:00* Test Item Value Reference Range Interpretation Comments Monocytes % (Manual) (test code = 744-3) 5 3.4-9.0 [facility]AllenEosinophils % (Manual)2019-05-16 09:14:00 * Test Item Value Reference Range Interpretation Comments Eosinophils % (Manual) (test code = 714-6) 3 0-7 [facility] McAllenPlatelet Ztqosjpt7683-67-21 09:14:00* Test Item Value Reference Range Interpretation Comments Platelet Estimate (test code = 94060-9) ADEQUATE [facility]AllenRed Cell Morphology Zuiwenf5627-51-78 09:14:00* Test Item Value Reference Range Interpretation Comments Red Cell Morphology Comment (test code = 6742-1) NORMAL [facility] McAllenDifferential Total Cells Counted 2019-05-16 09:14:00* Test Item Value Reference Range Interpretation Comments Differential Total Cells Counted (test code = Differen tial Total Cells Counted) 100 [facility]AllenNeutrophils % (Manual)2019-05-16 09:14:00 * Test Item Value Reference Range Interpretation Comments Neutrophils % (Manual) (test code = 09806-9) 88 40-74 H [facility]AllenLymphocytes % (Manual)2019-05-16 09:14:00 * Test Item Value Reference Range Interpretation Comments Lymphocytes % (Manual) (test code = 737-7) 4 19-48 L [facility]AllenMonocytes % (Manual)2019-05-16 09:14:00* Test Item Value Reference Range Interpretation Comments Monocytes % (Manual) (test code = 744-3) 5 3.4-9.0 [facility]AllenEosinophils % (Manual)2019-05-16 09:14:00 * Test Item Value Reference Range Interpretation Comments Eosinophils % (Manual) (test code = 714-6) 3 0-7 [facility] McAllenPlatelet Myopwkim8040-03-36 09:14:00* Test Item Value Reference Range Interpretation Comments Platelet Estimate (test code = 89917-9) ADEQUATE [facility] McAllenRed Cell Morphology Dzwqprv4196-17-27 09:14:00* Test Item Value Reference Range Interpretation Comments Red Cell Morphology Comment (test code = 6742-1) NORMAL [facility] McAllenDifferential Total Cells Counted 2019-05-16 09:14:00* Test Item Value Reference Range Interpretation Comments Differential Total Cells Counted (test code = Differen tial Total Cells Counted) 100 [facility]AllenNeutrophils % (Manual)2019-05-16 09:14:00 * Test Item Value Reference Range Interpretation Comments Neutrophils % (Manual) (test code = 41386-7) 88 40-74 H [facility]AllenLymphocytes % (Manual)2019-05-16 09:14:00 * Test Item Value Reference Range Interpretation Comments Lymphocytes % (Manual) (test code = 737-7) 4 19-48 L [facility]AllenMonocytes % (Manual)2019-05-16 09:14:00* Test Item Value Reference Range Interpretation Comments Monocytes % (Manual) (test code = 744-3) 5 3.4-9.0 [facility]AllenEosinophils % (Manual)2019-05-16 09:14:00 * Test Item Value Reference Range Interpretation Comments Eosinophils % (Manual) (test code = 714-6) 3 0-7 [facility]AllenPlatelet Xnelvfpe4981-54-79 09:14:00* Test Item Value Reference Range Interpretation Comments Platelet Estimate (test code = 53260-9) ADEQUATE [facility]AllenRed Cell Morphology Oelkqti5851-92-07 09:14:00* Test Item Value Reference Range Interpretation Comments Red Cell Morphology Comment (test code = 6742-1) NORMAL [facility] McAllenDifferential Total Cells Counted 2019-05-16 09:14:00* Test Item Value Reference Range Interpretation Comments Differential Total Cells Counted (test code = Berta tial Total Cells Counted) 100 [facility]AllenNeutrophils % (Manual)2019-05-16 09:14:00 * Test Item Value Reference Range Interpretation Comments Neutrophils % (Manual) (test code = 42449-1) 88 40-74 H [facility] McAllenLymphocytes % (Manual)2019-05-16 09:14:00 * Test Item Value Reference Range Interpretation Comments Lymphocytes % (Manual) (test code = 737-7) 4 19-48 L [facility]AllenMonocytes % (Manual)2019-05-16 09:14:00* Test Item Value Reference Range Interpretation Comments Monocytes % (Manual) (test code = 744-3) 5 3.4-9.0 [facility]AllenEosinophils % (Manual)2019-05-16 09:14:00 * Test Item Value Reference Range Interpretation Comments Eosinophils % (Manual) (test code = 714-6) 3 0-7 [facility] McAllenPlatelet Gyqaagtj9837-86-63 09:14:00* Test Item Value Reference Range Interpretation Comments Platelet Estimate (test code = 20700-4) ADEQUATE [facility] McAllenRed Cell Morphology Fdpqokl0732-16-14 09:14:00* Test Item Value Reference Range Interpretation Comments Red Cell Morphology Comment (test code = 6742-1) NORMAL [facility]AllenCHEST SINGLE (PORTABLE)2019-05-16 07:08:00 [facility] [address] [place] [address] Patient Name: JOSHUA WHEELER MR #: [id number] : 1960 Age/Sex: 58/M Req #: [id number] Adm Physician: BRETT CAZARES MD Ordered by: MARILIN JUAN MD Report #: [id number] Location: ICU Room/Bed: [place] [address] Procedure: 9433-5930 DX/CHEST SINGLE (PORTABLE) Exam Date: 05/16/19 Exam [...] MD Fluoroscopic procedure less than one hour vhklutir7365-56-89 03:40:00* Test Item Value Reference Range Interpretation Comments Differential Total Cells Counted (test code = Differen tial Total Cells Counted) 100 [facility] blood neutrophils/100 leukocytes 2019-05-16 03:40:00* Test Item Value Reference Range Interpretation Comments Neutrophils % (Manual) (test code = 70215-4) 88 40-74 [facility] blood lymphocytes/100 leukocytes 2019-05-16 03:40:00* Test Item Value Reference Range Interpretation Comments Lymphocytes % (Manual) (test code = 737-7) 4 19-48 [facility] blood monocytes/100 leukocytes 2019-05-16 03:40:00* Test Item Value Reference Range Interpretation Comments Monocytes % (Manual) (test code = 744-3) 5 3.4-9.0 [facility] blood eosinophil count as percentage of total ssxbnzyfdq3214-19-40 03:40:00* Test Item Value Reference Range Interpretation Comments Eosinophils % (Manual) (test code = 714-6) 3 0-7 [facility]AllenBlood platelets count by estimate (number/volume)2019-05-16 03:40:00* Test Item Value Reference Range Interpretation Comments Platelet Estimate (test code = 85101-8) ADEQUATE [facility] McAllenRBC tonjgdtrlb2595-90-80 03:40:00* Test Item Value Reference Range Interpretation Comments Red Cell Morphology Comment (test code = 6742-1) NORMAL [facility]AllenBody Fluid Osewzlcfzms7931-60-41 22:05:00 * Test Item Value Reference Range Interpretation Comments Body Fluid Neutrophils (test code = 56069-2) 1 [facility]AllenBody Fluid Hazyzggvdok9570-78-49 22:05:00 * Test Item Value Reference Range Interpretation Comments Body Fluid Lymphocytes (test code = 63245495) 63 [facility]AllenBody Fluid Psjqxklbo2709-27-12 22:05:00* Test Item Value Reference Range Interpretation Comments Body Fluid Monocytes (test code = 42540-8) 35 [facility]AllenBody Fluid Other Rhwxg3036-94-37 22:05:00 * Test Item Value Reference Range Interpretation Comments Body Fluid Other Cells (test code = 560973592) 1 [facility] Fluid Total Cells Counted 2019-05-15 22:05:00* Test Item Value Reference Range Interpretation Comments Body Fluid Total Cells Counted (test code = 38481-7) 100 [facility] Fluid Hxcjtmokejj0949-67-06 22:05:00 * Test Item Value Reference Range Interpretation Comments Body Fluid Neutrophils (test code = 56567-6) 1 [facility] Fluid Icheaojgyen8197-38-14 22:05:00 * Test Item Value Reference Range Interpretation Comments Body Fluid Lymphocytes (test code = 24609591) 63 [facility]AllenBody Fluid Nowmmayux3531-66-81 22:05:00* Test Item Value Reference Range Interpretation Comments Body Fluid Monocytes (test code = 96420-0) 35 [facility] Fluid Other Hfpmz2418-74-53 22:05:00 * Test Item Value Reference Range Interpretation Comments Body Fluid Other Cells (test code = 184835963) 1 [facility] Fluid Total Cells Counted 2019-05-15 22:05:00* Test Item Value Reference Range Interpretation Comments Body Fluid Total Cells Counted (test code = 35440-7) 100 [facility] Fluid Other Yowkv2891-94-48 22:05:00 * Test Item Value Reference Range Interpretation Comments Body Fluid Other Cells (test code = 035928541) 1 [facility] Fluid Other Cells 2019-05-15 22:05:00* Test Item Value Reference Range Interpretation Comments Body Fluid Other Cells (test code = 660129042) 1 [facility] Fluid DVE3933-36-61 21:56:00* Test Item Value Reference Range Interpretation Comments Body Fluid WBC (test code = 6743-9) 385 [facility] Fluid JPM7398-00-92 21:56:00* Test Item Value Reference Range Interpretation Comments Body Fluid RBC (test code = 6741-3) 45548 [facility] Fluid GSY8931-10-41 21:56:00* Test Item Value Reference Range Interpretation Comments Body Fluid WBC (test code = 6743-9) 385 [facility] Fluid YDJ4808-32-56 21:56:00* Test Item Value Reference Range Interpretation Comments Body Fluid RBC (test code = 6741-3) 31783 [facility]Allen[facility] Fluid Jbml8281-74-10 21:19:00* Test Item Value Reference Range Interpretation Comments Body Fluid Type (test code = 76337-4) PLEURAL [facility] Fluid Grafp2033-24-47 21:19:00* Test Item Value Reference Range Interpretation Comments Body Fluid Color (test code = 6824-7) RED [facility] Fluid Hifbhvzysp6399-81-02 21:19:00 * Test Item Value Reference Range Interpretation Comments Body Fluid Appearance (test code = 9335-1) CLOUDY [facility]AllenBody Fluid Efsv7812-66-34 21:19:00* Test Item Value Reference Range Interpretation Comments Body Fluid Type (test code = 99250-5) PLEURAL [facility] Fluid Nbavv7218-58-99 21:19:00* Test Item Value Reference Range Interpretation Comments Body Fluid Color (test code = 6824-7) RED [facility] Wsxkiatfwu2927-24-47 21:19:00 * Test Item Value Reference Range Interpretation Comments Body Fluid Appearance (test code = 9335-1) CLOUDY [facility] Fl[facility] Xtdtwmy8734-00-25 20:42:00* Test Item Value Reference Range Interpretation Comments Body Fluid Glucose (test code = 2344-0) 65 [facility] Fluid Total Rsodomc4828-86-16 20:42:00* Test Item Value Reference Range Interpretation Comments Body Fluid Total Protein (test code = 2881-1) 3.8 [facility] Ckuyevd6573-07-69 20:42:00* Test Item Value Reference Range Interpretation Comments Body Fluid Glucose (test code = 2344-0) 65 [facility] Total Qutfcef8422-20-30 20:42:00* Test Item Value Reference Range Interpretation Comments Body Fluid Total Protein (test code = 2881-1) 3.8 [facility] Fl[facility] Mdiznhq5820-56-19 20:42:00* Test Item Value Reference Range Interpretation Comments Body Fluid Glucose (test code = 2344-0) 65 [facility] Total Bhvfxav9269-78-02 20:42:00* Test Item Value Reference Range Interpretation Comments Body Fluid Total Protein (test code = 2881-1) 3.8 [facility] Fluid Xiqmvxt2755-68-86 20:42:00* Test Item Value Reference Range Interpretation Comments Body Fluid Glucose (test code = 2344-0) 65 [facility] Total Iyeupqy4318-55-13 20:42:00* Test Item Value Reference Range Interpretation Comments Body Fluid Total Protein (test code = 2881-1) 3.8 [facility] SINGLE (PORT[facility])2019-05-15 19:45:00 [facility] [address] [address] Patient Name: JOSHUA WHEELER MR #: [id number] : 1960 Age/Sex: 58/M Req #: [id number] Adm Physician: BRETT CAZARES MD Ordered by: TAY TATE MD Report #: [id number] Location: ICU Room/Bed: [place] [address] Procedure: [id number] D X/CHEST SINGLE (PORTABLE) Exam Date: 05/15/19 [...] TATE MD Body fluid other cells manual xnfjx1395-62-13 15:55:00* Test Item Value Reference Range Interpretation Comments Body Fluid Other Cells (test code = 981510095) 1 [facility] (mass/volume)2019-05-15 15:55:00* Test Item Value Reference Range Interpretation Comments Body Fluid Glucose (test code = 2344-0) 65 [facility] protein measurement (mass/volume)2019-05-15 15:55:00* Test Item Value Reference Range Interpretation Comments Body Fluid Total Protein (test code = 2881-1) 3.8 [facility] Test (T-Spot)2019-05-15 06:51:00* Test Item Value Reference [...] 4Negative Control P assedPositive Control PassedTesting performed by:[facility] [place], [place] 326175-820-0 [phone]: [facility] CenterTB Test (T-Spot)2019-05-15 06:51:00* Test [...] 4Negative Control P assedPositive Control PassedTesting performed by:[facility] [place], [place] 367303-285-6 [phone]: [facility] (T-Spot)2019-05-15 06:51:00* Test Item Value [...] 4Negative Control P assedPositive Control PassedTesting performed by:[facility] [place], [place] 659128-089-0 [phone]: [facility]TB Test (T-Spot)2019-05-15 06:51:00* Test Item Value [...] 4Negative Control P assedPositive Control PassedTesting performed by:[facility] [employer] [place], [place] 402891-029-3 [phone]: [facility] CenterActivated Partial Thromboplast Lstt4889-96-27 06:10:00* Test Item Value Reference Range Interpretation Comments Activated Partial Thromboplast Time (test code = 19551-4) 41.9 23.8-35.5 H [facility] SINGLE (PORTABLE)2019-05-15 05:48:00 [facility] [address] [place] [address] Patient Name: JOSHUA WHEELER MR #: [id number] : 1960 Age/Sex: 58/M Req #: [id number] Adm Physician: BRETT CAZARES MD Ordered by: MARILIN JUAN MD Report #: [id number] Location: MED/SURG2 Room/Bed: 208 Procedure: [id number] DX/CHEST SINGLE (PORTABLE) Exam Date: Exam Time: [...] MD on 05/15/19549 Transcribed By: LOREE on 05/15/1912 COPY TO: MARILIN JUAN MD Bowd-8-Jlrhpxkrdajrn7094-01-14 19:11:00* Test Item Value Reference Range Interpretation Comments Vtii-2-Pisfbcjuinxwp (test code = 1952-1) 26.8 0.6-2.4 H Siemens Immulite 2000 Immunochemiluminometric assay (ICMA)Values obtained with d ifferent assay methods or kits cannotbe used interchangeably. Results cannot be interpreted asabsolute evidence of the presence or absence of malignantdisease.* *Results verified by repeat testingPerformed at: [facility] [id number] Director: Johanna Hines MD, Phone: [phone] [facility] McAllenBeta-2-Bhvejqsbqdxqa9254-75-81 19:11:00* Test Item Value Reference Range Interpretation Comments Augq-0-Vvcrfhtgmmrwk (test code = 1952-1) 26.8 0.6-2.4 H Siemens Immulite 2000 Immunochemiluminometric assay (ICMA)Values obtained with d ifferent assay methods or kits cannotbe used interchangeably. Results cannot be interpreted asabsolute evidence of the presence or absence of malignantdisease.* *Results verified by repeat testingPerformed at: [address] [id number] Director: Johanna Hines MD, Phone: [phone] Texas Health System McAllenBeta-2-Yizzfouvzcjqk0791-22-08 19:11:00* Test Item Value Reference Range Interpretation Comments Zujn-7-Ijzrklpxxvfnb (test code = 1952-1) 26.8 0.6-2.4 H Siemens Immulite 2000 Immunochemiluminometric assay (ICMA)Values obtained with d ifferent assay methods or kits cannotbe used interchangeably. Results cannot be interpreted asabsolute evidence of the presence or absence of malignantdisease.* *Results verified by repeat testingPerformed at: [address] [id number] Director: Johanna Hines MD, Phone: [phone] [facility] Health System McAllenBeta-2-Cptgwvcggdiko3656-45-11 19:11:00* Test Item Value Reference Range Interpretation Comments Rvbe-7-Jameudvokrlho (test code = 1952-1) 26.8 0.6-2.4 H Siemens Immulite 2000 Immunochemiluminometric assay (ICMA)Values obtained with d ifferent assay methods or kits cannotbe used interchangeably. Results cannot be interpreted asabsolute evidence of the presence or absence of malignantdisease.* *Results verified by repeat testingPerformed at: [address] [id number] Director: Johanna Hines MD, Phone: [phone] [facility] Health System McAllenHEPTOBILIARY2020-01-14 14:01:00 [place] [address] Patient Name: JOSHUA WHEELER MR #: [id number] : 1960 Age/Sex: 58/M Req #: [id number] Adm Physician: BRETT CAZARES MD Ordered by: REGGIE VAIL MD Report #: [id number] Location: MED/SURG2 Room/Bed: [facility] Procedure: [id number] NM/HEPTOBILIARY Exam Date: 05/12/19 Exam Time: 1400 [...] COPY TO: BRENTON VAIL MD CT CHEST HW5354-87-49 09:09:00 [place] [address] Patient Name: JOSHUA WHEELER MR #: [id number] : 1960 Age/Sex: 58/M Req #: [id number] [facility] Physician: BRETT CAZARES MD Ordered by: EDIN FRAIRE MD Report #: [id number] Location: MED/SURG2 Room/Bed: 208 Procedure: [id number]/CT CHEST WO Exam [...] SANTIAGO FRAIRE MD CHEST SINGLE (PORTABLE)2019-05-12 18:32:00 [place] [address] Patient Name: JOSHUA WHEELER MR #: [id number] : 1960 Age/Sex: 58/M Req #: [id number] Adm Physician: BRETT CAZARES MD Ordered by: ANGEL NARAYAN, GERSON NARAYAN Report #: [id number] Location: MED/SURG2 Room/Bed: [facility] Procedure: [id number] DX/CHEST SINGLE (PORTABLE) Exam Date: Exam Time: [...] on 05/12/191832 COPY TO: GERSON ORTIZ THORACENTESIS/ IZMDGI6574-60-94 17:14:00 [place] [address] Patient Name: JOSHUA WHEELER MR #: [id number] : 1960 Age/Sex: 58/M Req #: [id number] Adm Physician: BRETT CAZARES MD Ordered by: GERSON ORTIZ MD, MD Report #: [id number] Location: MED/SURG2 Room/Bed: [facility] Procedure: [id number] US/THORACENTESIS/US GUIDED Exam Date: 05/12/19 Exam Time: [...] Catheter placed: 5F Diamondeh Post-drainage hemithorax findings: No visible pleural effusion, [...] MD 14 Transcribed By: LOREE on 05/12/191714 [employer] Y TO: GERSON ORTIZ XNTWBOC4621-39-47 17:14:00 [place] [address] Patient Name: JOSHUA WHEELER MR #: [id number] : 1960 Age/Sex: 58/M Req #: [id number] Adm Physician: BRETT CAZARES MD Ordered by: ANGEL NARAYAN, GERSON NARAYAN Report #: [id number] Location: [facility] Room/Bed: [facility] Procedure: [id number] DX/IR CONSULT Exam Date: Exam Time: REPORT [...] 1 715 Transcribed By: LOREE on 05/12/19 5765 COPY TO: GERSON ORTIZ Blood Yahqtbf2409-28-29 16:30:00* Test Item Value Reference Range Interpretation Comments Blood Culture (test code = 95692840) NO GROWTH AFTER 5 DAYS, FINAL REPORT [facility]AllenBlood Zbgrsfc2970-91-75 16:30:00* Test Item Value Reference Range Interpretation Comments Blood Culture (test code = 06215202) NO GROWTH AFTER 5 DAYS, FINAL REPORT [facility] McAllenFluoroscopic procedure less than one hour hjdksqsn2517-06-94 03:00:00* Test Item Value Reference Range Interpretation [...] 4Negative Control P assedPositive Control PassedTesting performed by:[facility] [place], [place] 101097-638-2 [phone]: [facility] CenterCT ABDOMEN/PELVIS CM4021-48-99 09:25:00 [place] [address] Patient Name: JOSHUA WHEELER MR #: [id number] : 1960 Age/Sex: 58/M Req #: [id number] Adm Physician: BRETT CAZARES MD Ordered by: REGGIE VAIL MD Report #: [id number] Location: MED/SURG2 Room/Bed: [facility] Procedure: [id number] CT/CT ABDOMEN/PELVIS WO Exam Date: 05/11/19 Exam [...] 05/11/19929 COPY TO: REGGIE VAIL MD Serum hwua-4-tejpsgnmaapdk measurement (mass/volume)2019-05-10 11:15:00* Test Item Value Reference Range Interpretation Comments Rwzv-4-Obctpruxwfuzb (test code = 1952-1) 26.8 0.6-2.4 Siemens Immulite 2000 Immunochemiluminometric assay (ICMA)Values obtained with d ifferent assay methods or kits cannotbe used interchangeably. Results cannot be interpreted asabsolute evidence of the presence or absence of malignantdisease.* *Results verified by repeat testingPerformed at: [facility] [id number] Director: Johanna Hines MD, Phone: [phone] Texas Health System McAllenFolate2020-01-11 11:02:00* Test Item Value Reference Range Interpretation Comments Folate (test code = 2284-8) 16.4 >3.0 A serum folate concentration of less than 3.1 ng/mL isconsidered to represent cl inical deficiency.Performed at: [facility] [address] [address] [place], [place] [id number] Director: Alec Javier MD, Phone: [phone] [facility] Health System McAllenFolate2020-01-11 11:02:00* Test Item Value Reference Range Interpretation Comments Folate (test code = 2284-8) 16.4 >3.0 A serum folate concentration of less than 3.1 ng/mL isconsidered to represent cl inical deficiency.Performed at: [address] [id number] Director: Alec Javier MD, Phone: [phone] Texas Health System McAllenFolate2020-01-11 11:02:00* Test Item Value Reference Range Interpretation Comments Folate (test code = 2284-8) 16.4 >3.0 A serum folate concentration of less than 3.1 ng/mL isconsidered to represent cl inical deficiency.Performed at: [address] [id number] Director: Alec Javier MD, Phone: [phone] [facility] Health System McAllenFolate2020-01-11 11:02:00* Test Item Value Reference Range Interpretation Comments Folate (test code = 2284-8) 16.4 >3.0 A serum folate concentration of less than 3.1 ng/mL isconsidered to represent cl inical deficiency.Performed at: [address] [id number] Director: Alec Javier MD, Phone: [phone] Texas Health System McAllenIR OXSLTDB9177-26-96 15:52:00 [place] [address] Patient Name: JOSHUA WHEELER MR #: [id number] : 1960 Age/Sex: 58/M Req #: [id number] Adm Physician: BRETT CAZARES MD Ordered by: NIURKA FRIEND MD Report #: [id number] Location: MED/SURG2 Room/Bed: [facility] Procedure: [id number] DX/IR CONSULT Exam Date: Exam Time: REPORT [...] 05/09/191553 COPY TO: NIURKA FRIEND MD THORACENTESIS/US BEKCTB0319-72-82 15:52:00 [place] [address] Patient Name: JOSHUA WHEELER MR #: [id number] : 1960 Age/Sex: 58/M Req #: [id number] Adm Physician: BRETT CAZARES MD Ordered by: NIURKA FRIEND MD Report #: [id number] Location: [facility] Room/Bed: [facility] Procedure: [id number] US/THORACENTESIS/US GUIDED Exam Date: 05/09/19 Exam Time: [...] 3:54 PM Dictated By: KEVIN BANDA MD 6704 COPY TO: RUPALI FRIEND MD Body Fluid Lactate Pitvttujikdfr3372-16-27 15:04:00* Test Item Value Reference Range Interpretation Comments Body Fluid Lactate Dehydrogenase (test code = 208320654) 234 No reference range has been established for this specimen type.[facility]Allen[facility] Fluid Lactate Wtenxmmhdqiyr2668-22-03 15:04:00* Test Item Value Reference Range Interpretation Comments Body Fluid Lactate Dehydrogenase (test code = 371568974) 234 No reference range has been established for this specimen type.[facility] Fluid Lactate Zylafhopgfnxp6031-10-67 15:04:00* Test Item Value Reference Range Interpretation Comments Body Fluid Lactate Dehydrogenase (test code = 291698123) 234 No reference range has been established for this specimen type.[facility] Fluid Lactate Xqjbmsfkkilmr6242-16-42 15:04:00* Test Item Value Reference Range Interpretation Comments Body Fluid Lactate Dehydrogenase (test code = 883236207) 234 No reference range has been established for this specimen type.[facility] McAllenCHEST SINGLE (NOT PORTABLE)2019-05-09 13:27:00 [facility] [address] [address] Patient Name: JOSHUA WHEELER MR #: [id number] : 1960 Age/Sex: 58/M Req #: [id number] Adm Physician: BRETT CAZARES MD Ordered by: BRETT CAZARES MD Report #: [id number] Location: MED/SURG2 Room/Bed: [facility] Procedure: [id number] DX/CHEST SINGLE (NOT PORTABLE) Exam Date: Exam [...] Body Fluid Lactate Dehydrogenase (test code = 798681409) 234 No reference range has been established for this specimen type.[facility] McAllenCreatine Kinase JP3810-04-52 16:36:00* Test Item Value Reference Range Interpretation Comments Creatine Kinase MB (test code = 07568-3) 0.30 0-5.0 [facility] McAllenTroponin W1466-36-30 16:36:00* Test Item Value Reference Range Interpretation Comments Troponin I (test code = GDM5611) 0.025 0-0.300 [facility] McAllenCreatine Myvuar9037-88-54 16:25:00* Test Item Value Reference Range Interpretation Comments Creatine Kinase (test code = 2157-6) 39 30-200 [facility] McAllenVitamin B12 Tskdg2693-87-08 08:15:00* Test Item Value Reference Range Interpretation Comments Vitamin B12 Level (test code = 72071-9) 326 213-816 [facility] McAllenVitamin B12 Ufqnq1564-09-41 08:15:00* Test Item Value Reference Range Interpretation Comments Vitamin B12 Level (test code = 36883-9) 326 213-816 [facility] McAllenVitamin B12 Amvsd2131-76-76 08:15:00* Test Item Value Reference Range Interpretation Comments Vitamin B12 Level (test code = 44775-9) 326 213-816 [facility] McAllenVitamin B12 Ialoj3770-78-48 08:15:00* Test Item Value Reference Range Interpretation Comments Vitamin B12 Level (test code = 45264-9) 326 213-816 [facility] McAllenFerritin2020-01-09 07:31:00* Test Item Value Reference Range Interpretation Comments Ferritin (test code = 2276-4) > 2000.00 21.81-274.66 H [facility] McAllenFerritin2020-01-09 07:31:00* Test Item Value Reference Range Interpretation Comments Ferritin (test code = 2276-4) > 2000.00 21.81-274.66 H [facility] McAllenFerritin2020-01-09 07:31:00* Test Item Value Reference Range Interpretation Comments Ferritin (test code = 2276-4) > 1999.00 21.81-274.66 H [facility] McAllenFerritin2020-01-09 07:31:00* Test Item Value Reference Range Interpretation Comments Ferritin (test code = 2276-4) > 2000.00 21.81-274.66 H [facility] McAllenTriglycerides Vmjdu8139-78-90 06:11:00* Test Item Value Reference Range Interpretation Comments Triglycerides Level (test code = 2571-8) 95 0-149 [facility]AllenCholesterol Rdrjs9166-79-74 06:11:00* Test Item Value Reference Range Interpretation Comments Cholesterol Level (test code = 2093-3) 127 0-199 Less than 200 mg/dL Low Ghsa543 - 239 mg/dL Borderline Bfqh910 m g/dl and greater High Risk [facility] McAllenLDL Fwlkcegecks6739-52-61 06:11:00* Test Item Value Reference Range Interpretation Comments LDL Cholesterol (test code = 2089-1) 82 60-130 [facility]AllenHDL Rdhfnhiduzd0536-49-70 06:11:00* Test Item Value Reference Range Interpretation Comments HDL Cholesterol (test code = 2085-9) 26 40-60 L [facility]AllenCholesterol/HDL Zacyn3620-69-80 06:11:00 * Test Item Value Reference Range Interpretation Comments Cholesterol/HDL Ratio (test code = 9830-1) 4.9 3.9-4.7 H [facility] McAllenTriglycerides Cjgfk5071-10-37 06:11:00* Test Item Value Reference Range Interpretation Comments Triglycerides Level (test code = 2571-8) 95 0-149 [facility]AllenCholesterol Rfdkd8696-73-89 06:11:00* Test Item Value Reference Range Interpretation Comments Cholesterol Level (test code = 2093-3) 127 0-199 Less than 200 mg/dL Low Dyts644 - 239 mg/dL Borderline Zsbb386 m g/dl and greater High Risk [facility] McAllenLDL Zjxjkenksqv1938-97-65 06:11:00* Test Item Value Reference Range Interpretation Comments LDL Cholesterol (test code = 2089-1) 82 60-130 [facility] Noqrouausty9196-50-30 06:11:00* Test Item Value Reference Range Interpretation Comments HDL Cholesterol (test code = 2085-9) 26 40-60 L [facility]AllenCholesterol/HDL Jlkbi9879-59-13 06:11:00 * Test Item Value Reference Range Interpretation Comments Cholesterol/HDL Ratio (test code = 9830-1) 4.9 3.9-4.7 H [facility] McAllenTriglycerides Losgn5954-22-43 06:11:00* Test Item Value Reference Range Interpretation Comments Triglycerides Level (test code = 2571-8) 95 0-149 [facility]AllenCholesterol Seufb6056-93-79 06:11:00* Test Item Value Reference Range Interpretation Comments Cholesterol Level (test code = 2093-3) 127 0-199 Less than 200 mg/dL Low Awhd745 - 239 mg/dL Borderline Vopf316 m g/dl and greater High Risk [facility] Gmjuslrclhk6162-45-41 06:11:00* Test Item Value Reference Range Interpretation Comments LDL Cholesterol (test code = 2089-1) 82 60-130 [facility] Nnkvnikktng1099-14-52 06:11:00* Test Item Value Reference Range Interpretation Comments HDL Cholesterol (test code = 2085-9) 26 40-60 L [facility]AllenCholesterol/HDL Jtinr6889-05-50 06:11:00 * Test Item Value Reference Range Interpretation Comments Cholesterol/HDL Ratio (test code = 9830-1) 4.9 3.9-4.7 H [facility] McAllenTriglycerides Osodd1210-45-66 06:11:00* Test Item Value Reference Range Interpretation Comments Triglycerides Level (test code = 2571-8) 95 0-149 [facility]AllenCholesterol Bhfdh8777-33-87 06:11:00* Test Item Value Reference Range Interpretation Comments Cholesterol Level (test code = 2093-3) 127 0-199 Less than 200 mg/dL Low Gkzh214 - 239 mg/dL Borderline Jnhy313 m g/dl and greater High Risk [facility] McAllenLDL Kauigwzlnqc8316-88-87 06:11:00* Test Item Value Reference Range Interpretation Comments LDL Cholesterol (test code = 2089-1) 82 60-130 [facility]AllenHDL Fwzyolavphi4802-86-80 06:11:00* Test Item Value Reference Range Interpretation Comments HDL Cholesterol (test code = 2085-9) 26 40-60 L [facility]AllenCholesterol/HDL Agtcp4735-00-07 06:11:00 * Test Item Value Reference Range Interpretation Comments Cholesterol/HDL Ratio (test code = 9830-1) 4.9 3.9-4.7 H [facility] Campuserum or plasma ferritin measurement (mass/volume)2019-05-08 04:05:00* Test Item Value Reference Range Interpretation Comments Ferritin (test code = 2276-4) > 2000.00 21.81-274.66 [facility] Campuserum or plasma triglyceride measurement (mass/volume)2019-05-08 04:05:00* Test Item Value Reference Range Interpretation Comments Triglycerides Level (test code = 2571-8) 95 0-149 [facility] Campuserum or plasma cholesterol measurement (mass/volume)2019-05-08 04:05:00* Test Item Value Reference Range Interpretation Comments Cholesterol Level (test code = 2093-3) 127 0-199 Less than 200 mg/dL Low Rguy627 - 239 mg/dL Borderline Rhqg483 m g/dl and greater High Risk [facility] Campuserum or plasma cholesterol in LDL measurement (mass/volume) 2019-05-08 04:05:00* Test Item Value Reference Range Interpretation Comments LDL Cholesterol (test code = 2089-1) 82 60-130 [facility] Campuserum or plasma cholesterol in HDL measurement (mass/volume)2019-05-08 04:05:00* Test Item Value Reference Range Interpretation Comments HDL Cholesterol (test code = 2085-9) 26 40-60 [facility] Campuserum or plasma total cholesterol/cholesterol in HDL mass aiqhh5105-73-75 04:05:00* Test Item Value Reference Range Interpretation Comments Cholesterol/HDL Ratio (test code = 9830-1) 4.9 3.9-4.7 [facility]AllenBlood cobalamin (vitamin B12) measurement (mass/volume)2019-05-08 04:05:00* Test Item Value Reference Range Interpretation Comments Vitamin B12 Level (test code = 89808-3) 326 043-354 [facility] Campuserum or plasma folate measurement (mass/volume)2019-05-08 04:05:00* Test Item Value Reference Range Interpretation Comments Folate (test code = 2284-8) 16.4 >3.0 A serum folate concentration of less than 3.1 ng/mL isconsidered to represent cl inical deficiency.Performed at: [facility] [address] [id number] Director: Alec Javier MD, Phone: [phone] Texas Health System McAllenCHES 2 NOCIG8551-38-70 17:40:00 [facility] [address] [place] [address] Patient Name: JOSHUA WHEELER MR #: [id number] : 1960 Age/Sex: 58/M Req #: [id number] Adm Physician: Ordered by: NIURKA FRIEND MD Report #: [id number] Location: ER Room/Bed: Procedure: [id number] D X/CHEST 2 VIEWS Exam Date: 05/07/19 [...] Virus Types A,B Antigen (test code = 72561-3) NEGATIVE NEGATIVE [facility] SoutheastInfluenza Virus Types A,B Antigen 2019-05-07 17:14:00* Test Item Value Reference Range Interpretation Comments Influenza Virus Types A,B Antigen (test code = 69703-2) NEGATIVE NEGATIVE [facility] SoutheastCHEST SINGLE (NOT PORTABLE)2019-03-24 18:43:00 [place] [address] Patient Name: JOSHUA WHEELER MR #: [id number] : 1960 Age/Sex: 58/M Req #: [id number] Adm Physician: Ordered by: HUNTER HEARD MD Report #: [id number] Location: ER Room/Bed: Procedure: [id number] DX/CHEST SINGLE (NOT PORTABLE) Exam Date: 03/24/19 Exam Time: 1756 REPORT STATUS: Sign ed EXAMINATION: CHEST SINGLE (NOT PORTABLE) INDICATION: E RMD ORDER [id number] 1757 Y COMPARISON: Chest radiograph 2018 FINDINGS: [...] 03/24/191844 COPY TO: HUNTER HEARD MD Prothrombin Htog3604-80-05 18:20:00* Test Item Value Reference Range Interpretation Comments Prothrombin Time (test code = 5902-2) 12.9 11.9-14.5 [facility] McAllenProthromb Time International Ratio 2019-03-24 18:20:00* Test Item Value Reference Range Interpretation Comments Prothromb Time International Ratio (test code = 6301-6) 0.92 Oral Anticoagulant Therapy INR Values:1. Low Intensity Therapy 1.5 - 2.02 . Moderate Intensity Therapy 2.0 - 3.03. High Intensity Therapy(1) 2.5 - 3. 54. High Intensity Therapy(2) 3.0 - 4.05. Panic Value INR > 5.0 [facility] Qeygn4939-05-09 18:19:00* Test Item Value Reference Range Interpretation Comments Sodium Level (test code = 2951-2) 138 136-145 [facility]AllenPotassium Sodny4762-74-18 18:19:00* Test Item Value Reference Range Interpretation Comments Potassium Level (test code = 2823-3) 3.3 3.5-5.1 L [facility] McAllenChloride Zbebi1297-62-89 18:19:00* Test Item Value Reference Range Interpretation Comments Chloride Level (test code = 2075-0) 97 98-107 L [facility]AllenCarbon Dioxide Xivmo3868-31-36 18:19:00* Test Item Value Reference Range Interpretation Comments Carbon Dioxide Level (test code = 2028-9) 30 22-29 H [facility] McAllenAnion Mks4555-22-51 18:19:00* Test Item Value Reference Range Interpretation Comments Anion Gap (test code = 49793-8) 14.3 8-16 [facility]AllenBlood Urea Vzkxbvpx8577-02-52 18:19:00* Test Item Value Reference Range Interpretation Comments Blood Urea Nitrogen (test code = 3094-0) 14 7-26 [facility] McAllenCreatinine2019-11-25 18:19:00* Test Item Value Reference Range Interpretation Comments Creatinine (test code = 2160-0) 3.34 0.72-1.25 H [facility]AllenBUN/Creatinine Thnfb1152-46-01 18:19:00* Test Item Value Reference Range Interpretation Comments BUN/Creatinine Ratio (test code = 3097-3) 4 6-25 L [facility] McAllenEstimat Glomerular Filtration Rate 2019-03-24 18:19:00* Test Item Value Reference Range Interpretation Comments Estimat Glomerular Filtration Rate (test code = 403880464) 19 >60 L Ranges were taken from the National Kidney Disease Education Program and the [facility] Kid[facility] Foundation literature.Reference ranges:60 or greater: Yphhjs70-64 ( for 3 consecutive months): Chronic kidney disease 15 or less: Kidney failureSouth Texas Health System McAllenGlucose Xslcg9156-89-35 18:19:00* Test Item Value Reference Range Interpretation Comments Glucose Level (test code = LTA7965) 107 74-118 [facility]AllenCalcium Rsvqs1807-33-57 18:19:00* Test Item Value Reference Range Interpretation Comments Calcium Level (test code = 35898-0) 9.1 8.4-10.2 [facility] McAllenTotal Xmxhvulso7756-41-66 18:19:00* Test Item Value Reference Range Interpretation Comments Total Bilirubin (test code = 1975-2) 0.8 0.2-1.2 [facility] McAllenAspartate Amino Transf (AST/SGOT) 2019-03-24 18:19:00* Test Item Value Reference Range Interpretation Comments Aspartate Amino Transf (AST/SGOT) (test code = Aspartate Amino Transf (AST/SGOT)) 14 5-34 [facility] McAllenAlanine Aminotransferase (ALT/SGPT) 2019-03-24 18:19:00* Test Item Value Reference Range Interpretation Comments Alanine Aminotransferase (ALT/SGPT) (test code = 1742-6) 10 0-55 [facility] McAllenTotal Mqpdgqp7238-34-85 18:19:00* Test Item Value Reference Range Interpretation Comments Total Protein (test code = 2885-2) 7.9 6.5-8.1 [facility] McAllenAlbumin2019-11-25 18:19:00* Test Item Value Reference Range Interpretation Comments Albumin (test code = 1751-7) 3.0 3.5-5.0 L [facility] McAllenGlobulin2019-11-25 18:19:00* Test Item Value Reference Range Interpretation Comments Globulin (test code = 31409-2) 4.9 2.3-3.5 H [facility] McAllenAlbumin/Globulin Iiqhc7060-59-73 18:19:00 * Test Item Value Reference Range Interpretation Comments Albumin/Globulin Ratio (test code = 1759-0) 0.6 0.8-2.0 L [facility] McAllenAlkaline Dpgavicmixj0991-67-95 18:19:00* Test Item Value Reference Range Interpretation Comments Alkaline Phosphatase (test code = 6768-6) 84 40-150 [facility] McAllenB-Type Natriuretic Vhihgpm9415-86-82 18:19:00* Test Item Value Reference Range Interpretation Comments B-Type Natriuretic Peptide (test code = 37127-4) 2894.2 0-100 H [facility] McAllenCreatine Mcypos3859-31-26 18:19:00* Test Item Value Reference Range Interpretation Comments Creatine Kinase (test code = 2157-6) 53 30-200 [facility]AllenCreatine Kinase KF5316-47-83 18:19:00* Test Item Value Reference Range Interpretation Comments Creatine Kinase MB (test code = 23037-1) 1.10 0-5.0 [facility] McAllenTroponin I5879-35-24 18:19:00* Test Item Value Reference Range Interpretation Comments Troponin I (test code = ITM7950) 0.077 0-0.300 [facility] McAllenB-Type Natriuretic Rkbzkws0677-22-16 18:19:00* Test Item Value Reference Range Interpretation Comments B-Type Natriuretic Peptide (test code = 12971-3) 2894.2 0-100 H [facility] McAllenB-Type Natriuretic Kymrqrp2077-02-75 18:19:00* Test Item Value Reference Range Interpretation Comments B-Type Natriuretic Peptide (test code = 56489-0) 2894.2 0-100 H [facility] McAllenWhite Blood Rrpyj8977-56-13 17:54:00* Test Item Value Reference Range Interpretation Comments White Blood Count (test code = 6690-2) 5.05 4.8-10.8 [facility] McAllenRed Blood Idnqi4754-14-09 17:54:00* Test Item Value Reference Range Interpretation Comments Red Blood Count (test code = 789-8) 3.30 4.3-5.7 L [facility] McAllenHemoglobin2019-11-25 17:54:00* Test Item Value Reference Range Interpretation Comments Hemoglobin (test code = 88308-0) 9.7 14.0-18.0 L [facility] McAllenHematocrit2019-11-25 17:54:00* Test Item Value Reference Range Interpretation Comments Hematocrit (test code = 4544-3) 29.4 38.2-49.6 L [facility] McAllenMean Corpuscular Qcmqka5230-00-57 17:54:00* Test Item Value Reference Range Interpretation Comments Mean Corpuscular Volume (test code = 787-2) 89.1 81-99 [facility] McAllenMean Corpuscular Pwfiqfqutn3693-78-25 17:54:00* Test Item Value Reference Range Interpretation Comments Mean Corpuscular Hemoglobin (test code = 785-6) 29.4 28-32 [facility] McAllenMean Corpuscular Hemoglobin Concent 2019-03-24 17:54:00* Test Item Value Reference Range Interpretation Comments Mean Corpuscular Hemoglobin Concent (test code = 786-4) 33.0 31-35 [facility] McAllenRed Cell Distribution Fljvi5191-77-81 17:54:00* Test Item Value Reference Range Interpretation Comments Red Cell Distribution Width (test code = 16430-4) 13.4 11.7 -14.4 [facility] McAllenPlatelet Ajtpq5401-37-40 17:54:00* Test Item Value Reference Range Interpretation Comments Platelet Count (test code = 777-3) 241 140-360 [facility] McAllenNeutrophils (%) (Auto)2019-03-24 17:54:00 * Test Item Value Reference Range Interpretation Comments Neutrophils (%) (Auto) (test code = 28334-5) 61.1 38.7-80.0 [facility] McAllenLymphocytes (%) (Auto)2019-03-24 17:54:00 * Test Item Value Reference Range Interpretation Comments Lymphocytes (%) (Auto) (test code = 736-9) 20.4 18.0-39.1 [facility] McAllenMonocytes (%) (Auto)2019-03-24 17:54:00* Test Item Value Reference Range Interpretation Comments Monocytes (%) (Auto) (test code = 5905-5) 13.3 4.4-11.3 H [facility]AllenEosinophils (%) (Auto)2019-03-24 17:54:00 * Test Item Value Reference Range Interpretation Comments Eosinophils (%) (Auto) (test code = 713-8) 4.0 0.0-6.0 [facility] McAllenBasophils (%) (Auto)2019-03-24 17:54:00* Test Item Value Reference Range Interpretation Comments Basophils (%) (Auto) (test code = 706-2) 1.0 0.0-1.0 [facility] McAllenIM GRANULOCYTES %2019-03-24 17:54:00* Test Item Value Reference Range Interpretation Comments IM GRANULOCYTES % (test code = IM GRANULOCYTES %) 0.2 0.0- 1.0 [facility] McAllenNeutrophils # (Auto)2019-03-24 17:54:00* Test Item Value Reference Range Interpretation Comments Neutrophils # (Auto) (test code = 751-8) 3.1 2.1-6.9 [facility] McAllenLymphocytes # (Auto)2019-03-24 17:54:00* Test Item Value Reference Range Interpretation Comments Lymphocytes # (Auto) (test code = 23782-5) 1.0 1.0-3.2 [facility] McAllenMonocytes # (Auto)2019-03-24 17:54:00* Test Item Value Reference Range Interpretation Comments Monocytes # (Auto) (test code = 742-7) 0.7 0.2-0.8 [facility]AllenEosinophils # (Auto)2019-03-24 17:54:00* Test Item Value Reference Range Interpretation Comments Eosinophils # (Auto) (test code = 711-2) 0.2 0.0-0.4 [facility]AllenBasophils # (Auto)2019-03-24 17:54:00* Test Item Value Reference Range Interpretation Comments Basophils # (Auto) (test code = 704-7) 0.1 0.0-0.1 [facility] McAllenAbsolute Immature Granulocyte (auto 2019-03-24 17:54:00* Test Item Value Reference Range Interpretation Comments Absolute Immature Granulocyte (auto (dany t code = Absolute Immature Granulocyte (auto) 0.01 0-0.1 [facility], [facility]BDOMINAL, SZVBRYHM2208-60-53 13:29:00PCP- Dr. Kiran Garduno [address] [place] [address] Reason for Exam:->Kidney transplant [...] mass or cyst. Cholelithiasis. Signed: Fausto Eddy Verified Date/Time: 03/06/2019 13:29:38 Reading Location: [address] Radiology Reading Room 2465-17-24 09:13:00* Test Item Value Reference Range Interpretation Comments PROSTATE SPECIFIC ANTIGEN (BEAKER) (test code = 844) 0.6 ng/mL 0 .0-4.0 LIPID [id number] 08:19:00* Test Item Value Reference Range Interpretation [...] 130-159 High 160-189 Very High >=190 PLEURAL [id number] 15:37:00 RUN DATE: 01/23/19 [facility] PAGE 1 RUN TIME: 1537 Specimen Inqui ry RUN USER: INTERFACE PATIENT: JOHSUA CACERES ACCT #: [id number] LOC: [place] Alegre #: [id number] AGE/SX: 58/M ROOM: RE01/22/19REG DR: Vic Rey MD : 58 BED: DIS: STATUS: DEP SDC TLOC: SPEC #: [id number] RECD: 01/22/19 STATUS: SHIRA BOLTON #: [id number] MARY: 01/22/19- SUBM DR: Cheko Joseph MD ENTERED: 01/22/19 SP TYPE: PLEURAL FL OTHR DR: Escobar Mitchell MD ORDERED: GROSS COPIES TO: Chapito Mitchell MD [address] [facility] [address] [place] [address] Cheko Joseph MD [address] [place] [address] PROCEDURES: GROSS (01/23/19-144 7) TISSUES: PLEURAL FLUID, NOS - 32 ML YELLOW CLINICAL HISTORY COLLECTION DATE: 01/22/2019 THROCENTESIS COMMENT Two con centrated smears, a cytospin and cell block are prepared from the fluid. FINAL DIAGNOSIS Pleural fluid, thoracentesis: NEGATIVE FOR MALIGNAN CY MACROPHAGES, MIXED INFLAMMATORY CELLS AND FEW MESOTHELIAL CE LLS IN BACKGROUND OF BLOOD RRVladimir/keerthi Woods [address], [address] CONTINUED ON NEXT PAGE RUN DATE: 01/23/19 [facility] PAGE 2 RUN TIME: 1537 Specimen Inquiry RUN USER: I KYLAH S PEC #: [id number] PATIENT: JOSHUA CACERES #[id number] (Continued) MACROSCOPIC The specimen is received fresh and labeled with the patient's name and consists of 32 mL of yellow fluid to be processed for cytologic evaluation. GROSS PERFORMED AT [facility] [address] [place] [address] ([phone] MICROSCOPIC All of the stains, incl uding any controls performed, stain appropriately. MICROSCOPIC PERFORMED A T [facility] [address] [place] [address] (p)[phone] PERFORMING SITE Diagnosis perfo rmed at: [facility], [place] [address] [place] [address] [phone] Signed SIGNATURE ON FILE Jered Muro MD 01/23/19 1537 END OF REPORT - XR CHEST 2 [id number] 12:49:00 FAX: Kiran Matute [phone] [place]: St: REG FAX: Cheko Jacobs MD [phone] Name: JOSHUA CACERES [facility] : 1960 Age/S: 58/M [address] Unit #: [id number] Loc: [place] [address] Phys: Cheko Joseph MD Acct: [id number] Dis Date: Status: REG CLI PHONE #: [phone] Exam Date: 01/23/2019 1200 FAX #: [phone] Reason: R PTX EXAMS: CPT CODE: [id number] XR CHEST 2 V 51667 REASON FOR EXAM: R PTX Exam Order Date: 11:43 AM Ordering Rylie: Cheko Joseph MD PROCED URE: - XR [...] lung. The patient is asymptomatic. A follow-up [facility] t x-ray is scheduled for Sunday. at 1249 Reported and signed by : Cheko Joseph M.D. CC: Kiran Lizama MD; Cheko Joseph MD Technologist: ARMEN PORTILLO RT (R) Trnidrd Date/Time/By: 01/23/2019 (9830) : By: Josef.VTL Orig Print D/T: S: 01/23/2019 (2594) PAGE 1 Signed Report BODY FLUID CELL CT/[id number] 18:12:00* Test Item Value Reference Range Interpretation [...] code = REVIEW) GALDINO PÉREZ PATHOLOGIST FLUID [id number] 18:12:00* Test Item Value Reference Range Interpretation Comments FLUID GLUCOSE (test code = GLUFL) 92 mg/dL FLUID [id number] 18:12:00* Test Item Value Reference Range Interpretation Comments FLUID PROTEIN (test code = PROTFL) 4.9 gram/dL BODY FLUID CELL CT/[id number] 14:22:00* Test Item Value Reference Range Interpretation [...] BY (test code = REVIEW) PATHOLOGIST FLUID [id number] 14:22:00* Test Item Value Reference Range Interpretation Comments FLUID GLUCOSE (test code = GLUFL) 92 mg/dL FLUID [id number] 14:22:00* Test Item Value Reference Range Interpretation Comments FLUID PROTEIN (test code = PROTFL) 4.9 gram/dL BODY FLUID CELL CT/[id number] 14:22:00* Test Item Value Reference Range Interpretation [...] BY (test code = REVIEW) PATHOLOGIST FLUID QVUAQME8651-01-27 14:22:00* Test Item Value Reference Range Interpretation Comments FLUID GLUCOSE (test code = GLUFL) 92 mg/dL FLUID [id number] 14:22:00* Test Item Value Reference Range Interpretation Comments FLUID PROTEIN (test code = PROTFL) 4.9 gram/dL - SP THORACENTESIS W/[id number] 14:11:00 Name: JOSHUA CACERES [facility] : 1960 Age/S: 58 / M [address] [facility] Unit #: [id number] Loc: [place] [address] Phys: Vic Rey MD Acct: [id number] Dis Date: Status: REG [facility] PHONE #: [phone] Exam Date: 01/22/2019 1030 FAX #: [phone] Reason: PLEURAL EFUSION EXAMS: CPT CODE: [id number] SP THORACENTESIS W/IMAG 63134 Fluoro Time: DAP (Gy m2): Air Kerma (mGy): REASON FOR EXAM: PLEURAL EFUSION Exam order date: 01/22/2019 10:15 AM PROCEDURE: Ultrasound guided right thoracentesis Attending MCalebD.: Vic Rey MD CPT code: 22212, 60639 FINDINGS: Prior to the procedure, informed consent [...] : Vic Rey MD Technologist: Sarah Nelson [facility] Date/Time: 01/22/2019 (141 1) Josef.VTL Orig Print D/T: S: 01/22/2019 (7836) PAG E 1 Signed Report - XR CHEST 1 [id number] 13:45:00 FAX: Vic Langford [phone] [place]: St: REG Name: JOSHUA VENEGAS [facility] : [birth year] 59 Age/S: 58/M [address] [facility] Unit #: [id number] Loc: [place] [address] Phys: Cheko Joseph MD Acct: [id number] Dis Date: Status: REG [facility] [place] [facility] PHONE #: [phone] Exam Date: 01/22/2019 1206 FAX #: [phone] Reason: POST THORACENTESIS EXAMS: CPT CODE: [id number] XR CHEST 1 V 18229 REASON FOR EXAM: POST THOR ACENTESIS, known [...] right pneumothorax now measuring approximately 30%. at 7867 Reported and signed by: Cheko Joseph M.D. CC: Vic Rey MD Technologist: Carmen fernando RT(R) Trnscrd Date/Time/By: 01/22/2019 ( 6874) : By: DavidVTL Orig Print D/T: S: 01/22/2019 (2680) PAGE 1 Signed Report BODY FLUID CELL [id number] 11:42:00* Test Item Value Reference Range Interpretation [...] BY (test code = REVIEW) PATHOLOGIST FLUID [id number] 11:42:00* Test Item Value Reference Range Interpretation Comments FLUID GLUCOSE (test code = GLUFL) 92 mg/dL FLUID [id number] 11:42:00* Test Item Value Reference Range Interpretation Comments FLUID PROTEIN (test code = PROTFL) 4.9 gram/dL BODY FLUID CELL CT/[id number] 11:33:00* Test Item Value Reference Range Interpretation [...] BY (test code = REVIEW) PATHOLOGIST FLUID [id number] 11:33:00* Test Item Value Reference Range Interpretation Comments FLUID GLUCOSE (test code = GLUFL) 92 mg/dL FLUID [id number] 11:33:00* Test Item Value Reference Range Interpretation Comments FLUID PROTEIN (test code = PROTFL) gram/dL BODY FLUID CELL CT/[id number] 11:29:00* Test Item Value Reference Range Interpretation [...] BY (test code = REVIEW) PATHOLOGIST FLUID [id number] 11:29:00* Test Item Value Reference Range Interpretation Comments FLUID GLUCOSE (test code = GLUFL) 92 mg/dL FLUID [id number] 11:29:00* Test Item Value Reference Range Interpretation Comments FLUID PROTEIN (test code = PROTFL) gram/dL - XR CHEST 1 [id number] 11:09:00 FAX: Vic Langford [phone] [place]: St: REG Name: JOSHUA VENEGAS [facility] : [birth year] Age/S: 58/M [address] [facility] Unit #: [id number] Loc: [place] [address] Phys: Cheko Joseph MD Acct: [id number] Dis Date: Status: REG [facility] [place] PHONE #: [phone] Exam Date: 01/22/2019 1043 FAX #: [phone] Reason: S/P THORACENTESIS EXAMS: CPT CODE: [id number] XR CHEST 1 V 74842 REASON FOR EXAM: S/P THORA CENTESIS Exam [...] CC: Vic Rey MD Technologist: Lulu Edwards(Terrell) Rubi rnscrd Date/Time/By: 01/22/2019 (8663) : By: [email or web address] Orig Print D/T: S: 01/22/2019 (0944) PAGE 1 Sign ed Report - SP FLUORO GUID CTRL ACC [id number] 09:51:00 Name: JOSHUA CACERES [facility] : 1960 Age/S: 58 / M [address] Unit #: [id number] Loc: [place] [address] Phys: Vic Rey MD Acct: [id number] Dis Date: Status: REG SDC PHONE #: [phone] Exam Date: 01/22/2019923 FAX #: [phone] Reason: / EXAMS: CPT CODE: [id number] SP FLUORO GUID CTRL ACC DEV 03315 Fluoro Time: 2 DAP (Gy m2): 0.496 Air Kerma (mGy): 1.24 REASON FOR EXAM: / Exam order date: 01/22/2019 9:15 AM PROCEDURE: Removal Of Tunneled Hemodialysis Catheter CPT code: 37838, 58964 FINDINGS: Prior to the procedure, informed consent [...] CC: Vic Rey MD Technologist: KEN NICOLAS PLASTIC MOLDING OPERATOR Trnscb Date/Time: 01/22/2019 (950) Vanessa Orig Print D/T: S: 01/22/2019 (6154) PAGE 1 Signed Report [id number] 08:25:00* Test Item Value Reference Range Interpretation Comments GLUBED (test code = GLUBED) 81 mg/dL 74-106 N Performed by certified traveling crane operator at [facility] PROTHROMBIN [id number] 08:16:00* Test Item Value Reference Range Interpretation [...] ANTICOAGULANTS UNKNOWNSPECIMEN COMMENTS: TO BRING INFORMATIONCOMMENTS TO LITHOGRAPHER HELPER: IN DSUTHROMBOPLASTIN TIME PARTIAL 2019-01-22 08:16:00* Test Item Value Reference Range Interpretation Comments THROMBOPLASTIN TIME PARTIAL (test code = PTT) 36.0 seconds 25.0-36. 5 N IS PATIENT ON ANTICOAGULANTS? YLIST ANTICOAGULANTS UNKNOWNSPECIMEN COMMENTS: TO BRING INFORMATIONCOMMENTS TO LITHOGRAPHER HELPER: IN DSUPLATELET [id number] 08:06:00* Test Item Value Reference Range Interpretation Comments PLATELET COUNT (test code = PLT) 133 K/mm3 150-450 L [id number] 08:02:00* Test Item Value Reference Range Interpretation Comments POTASSIUM (test code = K) 4.5 mmol/L 3.5-5.1 N URINE [id number] 09:16:00* Test Item Value Reference Range Interpretation Comments CULTURE (BEAKER) (test code = 1095) 40-49,000 col/mL skin marisol [id number] 11:08:00* Test Item Value Reference Range Interpretation Comments RPR SCREEN (NetSparkKRYSTA) (test code = 420) Nonreactive Nonreactive CYTOMEGALOVIRUS ANTIBODY, [id number] 10:37:00* Test Item Value Reference Range Interpretation Comments CYTOMEGALOVIRUS, IGG (ADOLFOAKER) (test code = 3429) Positive Negat aye, Equivocal A CMV IgG Result Interpretation: </= 0.8 Al Negative 0.9-1.0 Al Equivocal > /=1.1 Al PositiveCYTOMEGALOVIRUS ANTIBODY, [id number] 10:37:00* Test Item Value Reference Range Interpretation Comments CYTOMEGALOVIRUS IGM ANTIBODY (NetSparkAKER) (test code = 3437) Neg ative Negative, Equivocal CMV IgM Result Interpretation: </= 0.8 Al Negative 0.9-1.0 Al Equivocal > /= 1.1 Al PositiveEBV ANTIBODY, [id number] 10:37:00* Test Item Value Reference Range Interpretation Comments MICHEAL SANTANA VIRAL CAPSID ANTIGEN IGG (NetSparkAKER) (test code = 3415) Positive Negative, Equivocal A Micheal Santana Viral Capsid Antigen IgG Result Interpretation: </= 0.8 Al Negative 0.9-1.0 Al Equivocal >/= 1.1 Al PositiveEBV ANTIBODY, [id number] 10:37:00* Test Item Value Reference Range Interpretation Comments MICHEAL SANTANA VIRAL CAPSID ANTIGEN IGM (NetSparkAKER) (test code = 3418) Negative Negative, Equivocal Micheal Santana Viral Capsid Antigen IgM Result Interpretation: </= 0.8 Al Negative 0.9-1.0 Al Equivocal >/= 1.1 Al PositiveVARICELLA ZOSTER ANTIBODY, [id number] 10:37:00* Test Item Value Reference Range Interpretation Comments VARICELLA ZOSTER IGG (AL) (BEAKER) (test code = 3197) 4.9 VARICELLA ZOSTER RESULT INTERPRETATIONS: <=0.8 Al Nonreactive: Presumed non-immune to VZV 0.9-1.0 Al Equivocal >=1.1 Al Reactive: Presumed immune to VZVHEMOGLOBIN [id number] 15:18:00* Test Item Value Reference Range Interpretation Comments HEMOGLOBIN A1C (BEAKER) (test code = 368) 5.3 % 4.3-6.1 HEPATITIS B SURFACE [id number] 13:42:00* Test Item Value Reference Range Interpretation Comments HEPATITIS B SURFACE ANTIBODY (BEAKER) (test code = 647) < mIU/mL <8.0 HEPATITIS B SURFACE [id number] 13:31:00* Test Item Value Reference Range Interpretation Comments HEPATITIS B SURFACE ANTIGEN (2) (BEAKER) (test code = 2585) Nonreactive Nonreactive HEPATITIS B CORE ANTIBODY, [id number] 13:31:00* Test Item Value Reference Range Interpretation Comments HEPATITIS B CORE IGM ANTIBODY (BEAKER) (test code = 645) Non reactive Nonreactive HEPATITIS C [id number] 13:31:00* Test Item Value Reference Range Interpretation Comments HEPATITIS C ANTIBODY (BEAKER) (test code = 367) Nonreactive Nonrea ctive HIV-1 ANTIGEN WITH HIV-1/2 [id number] 13:31:00* Test Item Value Reference Range Interpretation Comments HIV-1 ANTIGEN WITH HIV 1\\T\\2 ANTIBODY (2) (BEAKER) (te st code = 2586) Nonreactive Nonreactive COMPREHENSIVE METABOLIC [id number] 13:26:00* Test Item Value Reference Range Interpretation [...] IS NOT APPLICABLE FOR DIALYSIS PATIENTS. URIC [id number] 13:19:00* Test Item Value Reference Range Interpretation Comments URIC ACID (BEAKER) (test code = 773) 4.6 mg/dL 2.6-7.2 [id number] 13:19:00* Test Item Value Reference Range Interpretation [...] 635) 263 U/L 125-2 20 H PTH, [id number] 13:14:00* Test Item Value Reference Range Interpretation Comments PARATHYROID HORMONE INTACT (BEAKER) (test code = 577) 236.2 pg/mL 8.5-72.5 H RAD, CHEST, 2 [id number] 12:50:00P- Dr. Kiran Garduno [address] [place] [address] Reason for Exam:->esrd; eval for [...] MDReport Verified Date/Time: 12/17/2018 12:50:06 Reading Location: [address] Radiology Reading Room W/PLT COUNT & AUTO [id number] 12:41:00* Test Item Value Reference Range Interpretation [...] (test code = 2801) 0 % 0-1 PT/[id number] 12:41:00* Test Item Value Reference Range Interpretation [...] heart valves.CBC W Auto Differential panel - [id number] 13:13:00* Test Item Value Reference Range Interpretation [...] (test code = baso#) 0.03 x10*3/?L 0.01-0.08 [facility] W Auto Differential panel - [id number] 13:13:00 * Test Item Value Reference Range [...] (test code = baso#) 0.03 x10*3/?L 0.01-0.08 [facility]its/volume] in Serum or [id number] 16:06:00* Test Item Value Reference Range Interpretation Comments TSH (test code = TSH) 2.759 uIU/mL 0.350-4.940 [facility] [Units/volume] in Serum or [id number] 16:06:00* Test Item Value Reference Range Interpretation Comments TSH (test code = TSH) 2.759 uIU/mL 0.350-4.940 [facility] [id number] 07:46:00* Test Item Value Reference Range Interpretation Comments Bedside Glucose (test code = 21718-0) 105 70-120 Meter ID: [id number] [facility] 2018-10-[facility] 07:46:00* Test Item Value Reference Range Interpretation Comments Bedside Glucose (test code = 80498-6) 105 70-120 Meter ID: [id number] [facility]Blood Culture 2018-10-02 15:58:00* Test Item Value Reference Range Interpretation Comments Blood Culture (test code = 38135779) NO GROWTH AFTER 5 DAYS, FINAL REPORT [facility] Wobyxct6270-25-27 15:58:00* Test Item Value Reference Range Interpretation Comments Blood Culture (test code = 74006322) NO GROWTH AFTER 5 DAYS, FINAL REPORT [facility] Twopw2146-20-67 09:30:00* Test Item Value Reference Range Interpretation Comments Sodium Level (test code = 2951-2) 134 136-145 L [facility]AllenPotassium Errfy9178-96-22 09:30:00* Test Item Value Reference Range Interpretation Comments Potassium Level (test code = 2823-3) 4.3 3.5-5.1 [facility]AllenChloride Uwzuq0064-70-21 09:30:00* Test Item Value Reference Range Interpretation Comments Chloride Level (test code = 2075-0) 95 98-107 L [facility] McAllenCarbon Dioxide Kxsfi3680-77-28 09:30:00* Test Item Value Reference Range Interpretation Comments Carbon Dioxide Level (test code = 2028-9) 25 22-29 [facility] McAllenAnion Zuu6050-51-67 09:30:00* Test Item Value Reference Range Interpretation Comments Anion Gap (test code = 95578-5) 18.3 8-16 H [facility] McAllenBlood Urea Armbobni0229-36-48 09:30:00* Test Item Value Reference Range Interpretation Comments Blood Urea Nitrogen (test code = 3094-0) 71 7-26 H [facility] McAllenCreatinine2019-06-05 09:30:00* Test Item Value Reference Range Interpretation Comments Creatinine (test code = 2160-0) 9.22 0.72-1.25 H [facility]AllenBUN/Creatinine Coqjk6973-54-22 09:30:00* Test Item Value Reference Range Interpretation Comments BUN/Creatinine Ratio (test code = 3097-3) 8 6-25 [facility] McAllenEstimat Glomerular Filtration Rate 2018-10-02 09:30:00* Test Item Value Reference Range Interpretation Comments Estimat Glomerular Filtration Rate (test code = 530912751) 6 >60 L Ranges were taken from the National Kidney Disease Education Program and the [facility] Kidney Foundation literature.Reference ranges:60 or greater: Lchsgd06-04 ( for 3 consecutive months): Chronic kidney disease 15 or less: Kidney failureCHI [facility] SoutheastGlucose Eyyaf8164-59-25 09:30:00* Test Item Value Reference Range Interpretation Comments Glucose Level (test code = XIE9306) 140 74-118 H [facility] McAllenCalcium Nvquc8743-74-78 09:30:00* Test Item Value Reference Range Interpretation Comments Calcium Level (test code = 78253-7) 7.9 8.4-10.2 L [facility] McAllenWhite Blood Khctg7919-25-16 08:57:00* Test Item Value Reference Range Interpretation Comments White Blood Count (test code = 6690-2) 9.03 4.8-10.8 [facility] McAllenRed Blood Kener3606-93-80 08:57:00* Test Item Value Reference Range Interpretation Comments Red Blood Count (test code = 789-8) 3.74 4.3-5.7 L [facility] McAllenHemoglobin2019-06-05 08:57:00* Test Item Value Reference Range Interpretation Comments Hemoglobin (test code = 58116-6) 11.5 14.0-18.0 L [facility]AllenHematocrit2019-06-05 08:57:00* Test Item Value Reference Range Interpretation Comments Hematocrit (test code = 4544-3) 35.1 38.2-49.6 L [facility] McAllenMean Corpuscular Idmkic1748-26-79 08:57:00* Test Item Value Reference Range Interpretation Comments Mean Corpuscular Volume (test code = 787-2) 93.9 81-99 [facility] McAllenMean Corpuscular Jsotzkfhmc9711-65-72 08:57:00* Test Item Value Reference Range Interpretation Comments Mean Corpuscular Hemoglobin (test code = 785-6) 30.7 28-32 [facility] McAllenMean Corpuscular Hemoglobin Concent 2018-10-02 08:57:00* Test Item Value Reference Range Interpretation Comments Mean Corpuscular Hemoglobin Concent (test code = 786-4) 32.8 31-35 [facility] McAllenRed Cell Distribution Kxbjy3039-30-54 08:57:00* Test Item Value Reference Range Interpretation Comments Red Cell Distribution Width (test code = 14741-2) 14.2 11.7 -14.4 [facility] McAllenPlatelet Fjngv7174-62-97 08:57:00* Test Item Value Reference Range Interpretation Comments Platelet Count (test code = 777-3) 159 140-360 [facility] McAllenNeutrophils (%) (Auto)2018-10-02 08:57:00 * Test Item Value Reference Range Interpretation Comments Neutrophils (%) (Auto) (test code = 07169-5) 67.6 38.7-80.0 [facility] McAllenLymphocytes (%) (Auto)2018-10-02 08:57:00 * Test Item Value Reference Range Interpretation Comments Lymphocytes (%) (Auto) (test code = 736-9) 19.4 18.0-39.1 [facility] McAllenMonocytes (%) (Auto)2018-10-02 08:57:00* Test Item Value Reference Range Interpretation Comments Monocytes (%) (Auto) (test code = 5905-5) 8.9 4.4-11.3 [facility]AllenEosinophils (%) (Auto)2018-10-02 08:57:00 * Test Item Value Reference Range Interpretation Comments Eosinophils (%) (Auto) (test code = 713-8) 2.9 0.0-6.0 [facility]AllenBasophils (%) (Auto)2018-10-02 08:57:00* Test Item Value Reference Range Interpretation Comments Basophils (%) (Auto) (test code = 706-2) 0.6 0.0-1.0 [facility] McAllenIM GRANULOCYTES %2018-10-02 08:57:00* Test Item Value Reference Range Interpretation Comments IM GRANULOCYTES % (test code = IM GRANULOCYTES %) 0.6 0.0- 1.0 [facility]AllenNeutrophils # (Auto)2018-10-02 08:57:00* Test Item Value Reference Range Interpretation Comments Neutrophils # (Auto) (test code = 751-8) 6.1 2.1-6.9 [facility] McAllenLymphocytes # (Auto)2018-10-02 08:57:00* Test Item Value Reference Range Interpretation Comments Lymphocytes # (Auto) (test code = 98766-5) 1.8 1.0-3.2 [facility] McAllenMonocytes # (Auto)2018-10-02 08:57:00* Test Item Value Reference Range Interpretation Comments Monocytes # (Auto) (test code = 742-7) 0.8 0.2-0.8 [facility]AllenEosinophils # (Auto)2018-10-02 08:57:00* Test Item Value Reference Range Interpretation Comments Eosinophils # (Auto) (test code = 711-2) 0.3 0.0-0.4 [facility]AllenBasophils # (Auto)2018-10-02 08:57:00* Test Item Value Reference Range Interpretation Comments Basophils # (Auto) (test code = 704-7) 0.1 0.0-0.1 [facility] McAllenAbsolute Immature Granulocyte (auto 2018-10-02 08:57:00* Test Item Value Reference Range Interpretation Comments Absolute Immature Granulocyte (auto (dany t code = Absolute Immature Granulocyte (auto) 0.05 0-0.1 [facility] McAllenTotal Azlawlqjc7760-89-49 08:19:00* Test Item Value Reference Range Interpretation Comments Total Bilirubin (test code = 1975-2) 0.6 0.2-1.2 [facility] McAllenAspartate Amino Transf (AST/SGOT) 2018-10-01 08:19:00* Test Item Value Reference Range Interpretation Comments Aspartate Amino Transf (AST/SGOT) (test code = Aspartate Amino Transf (AST/SGOT)) 24 5-34 [facility] McAllenAlanine Aminotransferase (ALT/SGPT) 2018-10-01 08:19:00* Test Item Value Reference Range Interpretation Comments Alanine Aminotransferase (ALT/SGPT) (test code = 1742-6) 29 0-55 [facility] McAllenTotal Kjdueki5487-11-33 08:19:00* Test Item Value Reference Range Interpretation Comments Total Protein (test code = 2885-2) 6.9 6.5-8.1 [facility] McAllenAlbumin2019-06-04 08:19:00* Test Item Value Reference Range Interpretation Comments Albumin (test code = 1751-7) 3.0 3.5-5.0 L [facility] McAllenGlobulin2019-06-04 08:19:00* Test Item Value Reference Range Interpretation Comments Globulin (test code = 35766-7) 3.9 2.3-3.5 H [facility] McAllenAlbumin/Globulin Abvsh0394-26-33 08:19:00 * Test Item Value Reference Range Interpretation Comments Albumin/Globulin Ratio (test code = 1759-0) 0.8 0.8-2.0 [facility] McAllenAlkaline Wwltumwmlbo1983-46-78 08:19:00* Test Item Value Reference Range Interpretation Comments Alkaline Phosphatase (test code = 6768-6) 133 40-150 [facility]AllenHepatibristol [facility] B Surface Antibody, Quant 2018-10-01 06:22:00* Test Item Value Reference Range Interpretation Comments Hepatitis B Surface Antibody, Quant (test code = 5194-6) <3.1 Immunity>9.9 L Status of Immunity Anti-HBs Level Inconsistent with Immunity 0.0 - 9.9Consistent with Immunity >9.9[facility] Core Total Reemgqap2947-27-23 06:22:00* Test Item Value Reference Range Interpretation Comments Hepatitis B Core Total Antibody (test code = 48884-9) Negative Negative Performed at: [address] [id number] Director: Alec Javier MD, Phone: [phone] Texas Health System McAllenHepatitis B Surface Lnfxwpu4443-83-43 06:22:00* Test Item Value Reference Range Interpretation Comments Hepatitis B Surface Antigen (test code = 5196-1) Negative Negat aye [facility]AllenH[facility] B Surface Antibody, Quant 2018-10-01 06:22:00* Test Item Value Reference Range Interpretation Comments Hepatitis B Surface Antibody, Quant (test code = 5194-6) <3.1 Immunity>9.9 L Status of Immunity Anti-HBs Level Inconsistent with Immunity 0.0 - 9.9Consistent with Immunity >9.9[facility] B Core Total Xngcstux7254-98-84 06:22:00* Test Item Value Reference Range Interpretation Comments Hepatitis B Core Total Antibody (test code = 31799-2) Negative Negative Performed at: [address] [id number] Director: Alec Javier MD, Phone: [phone] [facility] Health System McAllenHepatitis B Surface Terwxtd8961-86-76 06:22:00* Test Item Value Reference Range Interpretation Comments Hepatitis B Surface Antigen (test code = 5196-1) Negative Negat aye [facility] McAllenHemoglobin A1c Gcgykrw2628-87-49 17:11:00 * Test Item Value Reference Range Interpretation Comments Hemoglobin A1c Percent (test code = Hemoglobin A1c Percent) 6.0 4.0-7.0 [facility] McAllenTriglycerides Fxesn4487-62-37 17:11:00* Test Item Value Reference Range Interpretation Comments Triglycerides Level (test code = 2571-8) 151 0-149 H [facility] McAllenCholesterol Mmszm9089-02-75 17:11:00* Test Item Value Reference Range Interpretation Comments Cholesterol Level (test code = 2093-3) 116 0-199 Less than 200 mg/dL Low Nuff384 - 239 mg/dL Borderline Lfcg394 m g/dl and greater High Risk [facility] McAllenLDL Zixjxhrrfrr0380-49-25 17:11:00* Test Item Value Reference Range Interpretation Comments LDL Cholesterol (test code = 2089-1) 52 60-130 L [facility] Abplqndcgjk4588-31-05 17:11:00* Test Item Value Reference Range Interpretation Comments HDL Cholesterol (test code = 2085-9) 34 40-60 L [facility] McAllenCholesterol/HDL Ucapj8311-63-70 17:11:00 * Test Item Value Reference Range Interpretation Comments Cholesterol/HDL Ratio (test code = 9830-1) 3.4 3.9-4.7 L [facility] McAllenHemoglobin A1c Qmyofpi8479-70-46 17:11:00 * Test Item Value Reference Range Interpretation Comments Hemoglobin A1c Percent (test code = Hemoglobin A1c Percent) 6.0 4.0-7.0 [facility] McAllenTriglycerides Zztaj6217-17-24 17:11:00* Test Item Value Reference Range Interpretation Comments Triglycerides Level (test code = 2571-8) 151 0-149 H [facility] McAllenCholesterol Gelwh2528-31-50 17:11:00* Test Item Value Reference Range Interpretation Comments Cholesterol Level (test code = 2093-3) 116 0-199 Less than 200 mg/dL Low Yakc877 - 239 mg/dL Borderline Xnje441 m g/dl and greater High Risk [facility] McAllenLDL Seffcyiempm1954-87-10 17:11:00* Test Item Value Reference Range Interpretation Comments LDL Cholesterol (test code = 2089-1) 52 60-130 L [facility] Ymdzxrbhgmi2293-33-76 17:11:00* Test Item Value Reference Range Interpretation Comments HDL Cholesterol (test code = 2085-9) 34 40-60 L [facility] McAllenCholesterol/HDL Jbldb5237-63-66 17:11:00 * Test Item Value Reference Range Interpretation Comments Cholesterol/HDL Ratio (test code = 9830-1) 3.4 3.9-4.7 L [facility] McAllenHemoglobin A1c Vmvsjot4577-77-00 17:11:00 * Test Item Value Reference Range Interpretation Comments Hemoglobin A1c Percent (test code = Hemoglobin A1c Percent) 6.0 4.0-7.0 [facility]AllenHemoglobin A1c Jxlujnw9775-92-20 17:11:00 * Test Item Value Reference Range Interpretation Comments Hemoglobin A1c Percent (test code = Hemoglobin A1c Percent) 6.0 4.0-7.0 [facility]AllenHemoglobin A1c Xtrlrbt5714-59-52 17:11:00 * Test Item Value Reference Range Interpretation Comments Hemoglobin A1c Percent (test code = Hemoglobin A1c Percent) 6.0 4.0-7.0 [facility] McAllenCreatine Vcewed2544-73-02 08:37:00* Test Item Value Reference Range Interpretation Comments Creatine Kinase (test code = 2157-6) 51 30-200 [facility] McAllenCreatine Kinase PB3852-78-71 08:37:00* Test Item Value Reference Range Interpretation Comments Creatine Kinase MB (test code = 15590-3) 1.70 0-5.0 [facility] McAllenTroponin I3812-87-69 08:37:00* Test Item Value Reference Range Interpretation Comments Troponin I (test code = EDU3951) 0.114 0-0.300 [facility] McAllenCHEST SINGLE (PORTABLE)2018-09-28 06:40:00 [facility] [address] [place] [address] Patient Name: JOSHUA WHEELER MR #: [id number] : 1960 Age/Sex: 57/M Req #: [id number] Adm Physician: PETRA GRIMALDO MD Ordered by: BRIE KRAMER DIRECTOR OF FIELD SERVICE Report #: [id number] Location: MED/SURG3 Room/Bed: [facility] Procedure: [id number] D X/CHEST SINGLE (PORTABLE) Exam Date: Exam [...] [place] on 09/28/18641 COPY TO: BRIE KRAMER Urine CQM2656-91-49 21:04:00* Test Item Value Reference Range Interpretation Comments Urine WBC (test code = 5821-4) NONE 0-5 [facility] McAllenUrine PQF5447-11-56 21:04:00* Test Item Value Reference Range Interpretation Comments Urine RBC (test code = 14872-1) NONE 0-5 [facility] McAllenUrine Yalsurnv2775-51-62 21:04:00* Test Item Value Reference Range Interpretation Comments Urine Bacteria (test code = 96668-9) NONE NONE [facility]AllenUrine Epithelial Aljyg0135-65-44 21:04:00 * Test Item Value Reference Range Interpretation Comments Urine Epithelial Cells (test code = 79345-9) NONE NONE [facility] QOQ9623-04-24 21:04:00* Test Item Value Reference Range Interpretation Comments Urine WBC (test code = 5821-4) NONE 0-5 [facility] OGG8940-99-31 21:04:00* Test Item Value Reference Range Interpretation Comments Urine RBC (test code = 70373-1) NONE 0-5 [facility]AllenUrine Dxfjleug2975-72-94 21:04:00* Test Item Value Reference Range Interpretation Comments Urine Bacteria (test code = 07792-8) NONE NONE [facility]AllenUrine Epithelial Yezkg4890-46-19 21:04:00 * Test Item Value Reference Range Interpretation Comments Urine Epithelial Cells (test code = 51685-9) NONE NONE [facility] HMA6857-17-34 21:04:00* Test Item Value Reference Range Interpretation Comments Urine WBC (test code = 5821-4) NONE 0-5 [facility] MIF2735-90-93 21:04:00* Test Item Value Reference Range Interpretation Comments Urine RBC (test code = 39540-2) NONE 0-5 [facility] Ogcqqfee9593-58-06 21:04:00* Test Item Value Reference Range Interpretation Comments Urine Bacteria (test code = 74693-5) NONE NONE [facility]AllenUrine Epithelial Belzt0032-56-13 21:04:00 * Test Item Value Reference Range Interpretation Comments Urine Epithelial Cells (test code = 32434-2) NONE NONE [facility] VSE3924-15-24 21:04:00* Test Item Value Reference Range Interpretation Comments Urine WBC (test code = 5821-4) NONE 0-5 [facility] TEB9556-07-28 21:04:00* Test Item Value Reference Range Interpretation Comments Urine RBC (test code = 89108-4) NONE 0-5 [facility] Eyscnsly5637-05-29 21:04:00* Test Item Value Reference Range Interpretation Comments Urine Bacteria (test code = 30818-1) NONE NONE [facility]AllenUrine Epithelial Hibcm7243-82-07 21:04:00 * Test Item Value Reference Range Interpretation Comments Urine Epithelial Cells (test code = 42153-3) NONE NONE [facility]AllenUrine Oxrhi0461-21-47 20:49:00* Test Item Value Reference Range Interpretation Comments Urine Color (test code = 5778-6) YELLOW YELLOW [facility]AllenUrine Smkvvlc4395-07-06 20:49:00* Test Item Value Reference Range Interpretation Comments Urine Clarity (test code = 03293-6) CLEAR CLEAR [facility]AllenUrine Specific Gsbxapv7650-90-09 20:49:00 * Test Item Value Reference Range Interpretation Comments Urine Specific Mora (test code = 5811-5) 1.010 1.010-1.02 5 [facility]AllenUrine iK9508-06-55 20:49:00* Test Item Value Reference Range Interpretation Comments Urine pH (test code = 11879-6) 7.5 5-7 [facility]AllenUrine Leukocyte Rzcyjuwv2182-93-88 20:49:00* Test Item Value Reference Range Interpretation Comments Urine Leukocyte Esterase (test code = 99597-3) NEGATIVE NEGATIV E [facility]AllenUrine Llzweek9497-47-23 20:49:00* Test Item Value Reference Range Interpretation Comments Urine Nitrite (test code = 16194-4) NEGATIVE NEGATIVE [facility]AllenUrine Lmaxsux4756-45-25 20:49:00* Test Item Value Reference Range Interpretation Comments Urine Protein (test code = 96044-6) NEGATIVE NEGATIVE [facility]AllenUrine Glucose (UA)2018-09-27 20:49:00* Test Item Value Reference Range Interpretation Comments Urine Glucose (UA) (test code = 50746-9) NEGATIVE NEGATIVE [facility]AllenUrine Ybcvnec8130-46-52 20:49:00* Test Item Value Reference Range Interpretation Comments Urine Ketones (test code = 98459-0) NEGATIVE NEGATIVE [facility]AllenUrine Fkcnfwcaohra1713-36-90 20:49:00* Test Item Value Reference Range Interpretation Comments Urine Urobilinogen (test code = 96517-8) 0.2 0.2-1 [facility]AllenUrine Doahoikxh8446-03-34 20:49:00* Test Item Value Reference Range Interpretation Comments Urine Bilirubin (test code = 1977-8) NEGATIVE NEGATIVE [facility]AllenUrine Uklag0628-46-92 20:49:00* Test Item Value Reference Range Interpretation Comments Urine Blood (test code = 77051-7) NEGATIVE NEGATIVE [facility]AllenUrine Zgjam1970-48-48 20:49:00* Test Item Value Reference Range Interpretation Comments Urine Color (test code = 5778-6) YELLOW YELLOW [facility]AllenUrine Trmctav8326-89-62 20:49:00* Test Item Value Reference Range Interpretation Comments Urine Clarity (test code = 08532-3) CLEAR CLEAR [facility] Specific Lfzdyfu9582-15-87 20:49:00 * Test Item Value Reference Range Interpretation Comments Urine Specific Mora (test code = 5811-5) 1.010 1.010-1.02 5 [facility]AllenUrine aL5423-30-58 20:49:00* Test Item Value Reference Range Interpretation Comments Urine pH (test code = 56621-3) 7.5 5-7 [facility]AllenUrine Leukocyte Jhrdykfn4484-06-75 20:49:00* Test Item Value Reference Range Interpretation Comments Urine Leukocyte Esterase (test code = 12602-7) NEGATIVE NEGATIV E [facility]AllenUrine Efoozog4071-05-92 20:49:00* Test Item Value Reference Range Interpretation Comments Urine Nitrite (test code = 15398-9) NEGATIVE NEGATIVE [facility]AllenUrine Uttyzpm5019-36-20 20:49:00* Test Item Value Reference Range Interpretation Comments Urine Protein (test code = 34623-9) NEGATIVE NEGATIVE [facility]AllenUrine Glucose (UA)2018-09-27 20:49:00* Test Item Value Reference Range Interpretation Comments Urine Glucose (UA) (test code = 29365-0) NEGATIVE NEGATIVE [facility]AllenUrine Ljlfbkg8033-98-52 20:49:00* Test Item Value Reference Range Interpretation Comments Urine Ketones (test code = 10669-1) NEGATIVE NEGATIVE [facility] Brtzmehcrqpp9499-97-71 20:49:00* Test Item Value Reference Range Interpretation Comments Urine Urobilinogen (test code = 75720-4) 0.2 0.2-1 [facility]AllenU[facility] Jjpctwqeh8677-00-84 20:49:00* Test Item Value Reference Range Interpretation Comments Urine Bilirubin (test code = 1977-8) NEGATIVE NEGATIVE [facility]AllenU[facility] Npzch1105-97-34 20:49:00* Test Item Value Reference Range Interpretation Comments Urine Blood (test code = 04503-7) NEGATIVE NEGATIVE [facility]AllenUrine Zjzyu2082-11-07 20:49:00* Test Item Value Reference Range Interpretation Comments Urine Color (test code = 5778-6) YELLOW YELLOW [facility]AllenUrine Jdmwavg8090-85-22 20:49:00* Test Item Value Reference Range Interpretation Comments Urine Clarity (test code = 74060-3) CLEAR CLEAR [facility]AllenUrine Specific Wcjujvu4809-48-88 20:49:00 * Test Item Value Reference Range Interpretation Comments Urine Specific Mora (test code = 5811-5) 1.010 1.010-1.02 5 [facility]AllenUrine xI6602-34-19 20:49:00* Test Item Value Reference Range Interpretation Comments Urine pH (test code = 13293-2) 7.5 5-7 [facility]AllenU[facility] Leukocyte Zuxhcafn0593-70-03 20:49:00* Test Item Value Reference Range Interpretation Comments Urine Leukocyte Esterase (test code = 22856-2) NEGATIVE NEGATIV E [facility]AllenUrine Hhqvfhv3932-50-89 20:49:00* Test Item Value Reference Range Interpretation Comments Urine Nitrite (test code = 37495-5) NEGATIVE NEGATIVE [facility]AllenUrine Thgzyrj7667-14-91 20:49:00* Test Item Value Reference Range Interpretation Comments Urine Protein (test code = 22472-0) NEGATIVE NEGATIVE [facility]AllenUrine Glucose (UA)2018-09-27 20:49:00* Test Item Value Reference Range Interpretation Comments Urine Glucose (UA) (test code = 50940-3) NEGATIVE NEGATIVE [facility]AllenUrine Lujrlvd6899-28-10 20:49:00* Test Item Value Reference Range Interpretation Comments Urine Ketones (test code = 61919-4) NEGATIVE NEGATIVE [facility]AllenUrine Rcesmjdqzzkl8034-61-05 20:49:00* Test Item Value Reference Range Interpretation Comments Urine Urobilinogen (test code = 41837-5) 0.2 0.2-1 [facility]AllenU[facility] Stogbxmjd4160-03-87 20:49:00* Test Item Value Reference Range Interpretation Comments Urine Bilirubin (test code = 1977-8) NEGATIVE NEGATIVE [facility]AllenUrine Zozjg7645-70-29 20:49:00* Test Item Value Reference Range Interpretation Comments Urine Blood (test code = 96670-5) NEGATIVE NEGATIVE [facility]AllenUrine Zvdsq5441-46-00 20:49:00* Test Item Value Reference Range Interpretation Comments Urine Color (test code = 5778-6) YELLOW YELLOW [facility]AllenUrine Wwmkavb8697-41-34 20:49:00* Test Item Value Reference Range Interpretation Comments Urine Clarity (test code = 14801-9) CLEAR CLEAR [facility]AllenU[facility] Specific Uoxkjgc4104-24-14 20:49:00 * Test Item Value Reference Range Interpretation Comments Urine Specific Mora (test code = 5811-5) 1.010 1.010-1.02 5 [facility]AllenUrine hY2190-90-34 20:49:00* Test Item Value Reference Range Interpretation Comments Urine pH (test code = 78899-2) 7.5 5-7 [facility]AllenUrine Leukocyte Obllqrap2917-52-49 20:49:00* Test Item Value Reference Range Interpretation Comments Urine Leukocyte Esterase (test code = 97852-7) NEGATIVE NEGATIV E [facility] Liiypyh2027-83-25 20:49:00* Test Item Value Reference Range Interpretation Comments Urine Nitrite (test code = 11177-8) NEGATIVE NEGATIVE [facility] Azimcss0641-26-83 20:49:00* Test Item Value Reference Range Interpretation Comments Urine Protein (test code = 74984-2) NEGATIVE NEGATIVE [facility]Allen[facility] Glucose (UA)2018-09-27 20:49:00* Test Item Value Reference Range Interpretation Comments Urine Glucose (UA) (test code = 19026-8) NEGATIVE NEGATIVE [facility] Oofverq0842-76-16 20:49:00* Test Item Value Reference Range Interpretation Comments Urine Ketones (test code = 36619-8) NEGATIVE NEGATIVE [facility] Yeodyfwgmyhp9454-41-78 20:49:00* Test Item Value Reference Range Interpretation Comments Urine Urobilinogen (test code = 03218-4) 0.2 0.2-1 [facility] Qycxydspy0113-62-47 20:49:00* Test Item Value Reference Range Interpretation Comments Urine Bilirubin (test code = 1977-8) NEGATIVE NEGATIVE [facility] Hyrdn5358-41-91 20:49:00* Test Item Value Reference Range Interpretation Comments Urine Blood (test code = 17199-1) NEGATIVE NEGATIVE [facility]Allen[facility]ST 2 KOUBE6747-72-14 16:22:00 [place] [address] Patient Name: JOSHUA WHEELER MR #: [id number] : 1960 Age/Sex: 57/M Req #: [id number] Adm Physician: Ordered by: SOUMYA SEGOVIA MD Report #: [id number] Location: ER Room/Bed: Procedure: [id number] DX/CHEST 2 VIEWS Exam Date: 09/27/18 Exam [...] on 09/27/181625 COPY TO: SOUMYA SEGOVIA MD SAGCMR6459-53-00 17:44:00* Test Item Value Reference Range Interpretation Comments GLUBED (test code = GLUBED) 164 mg/dL 74-106 H Performed by certified traveling crane operator at [facility] CBC W/AUTO JFQR3838-06-73 14:52:00* Test Item Value Reference Range Interpretation [...] = MDIFF) NO, ONLY SCAN NEEDED DIFFERENTIAL [id number] 14:52:00* Test Item Value Reference Range Interpretation Comments STAIN ACCEPTABILITY (test code = STN ACCEPTABLE) STAIN ACCEPTABLE PLATELET ESTIMATE (test code = PLTEST) DECREASED PLATELET MORPHOLOGY (test code = PLTMORPH) NORMAL BASIC METABOLIC GTPFK5510-50-02 14:21:00* Test Item Value Reference Range Interpretation [...] CA) 8.7 mg/dL 8.5-10.1 N HEPATIC FUNCTION OKICS6014-00-72 14:21:00* Test Item Value Reference Range Interpretation [...] reference range due to change in reagent. [id number]-[id number] 14:21:00* Test Item Value Reference Range Interpretation Comments TROPONIN-I (test code = TROPI) 0.016 ng/mL 0-0.045 N - XR CHEST 1 [id number] 14:21:00 FAX: Usman Hendrickson DO [place]: B St: REG Name: JOSHUA VENEGAS [facility] : [birth year] Age/S: 57/M [address] Unit #: [id number] Loc: [place] [address] Phys: Usman Hendrickson DO Acct: [id number] Dis Date: Status: REG ER PHONE #: [phone] Exam Date: 09/19/2018 5224 FAX #: [phone] Reason: Altered Mental Status EXAMS: CPT CODE: [id number] XR CHEST 1 V 31491 Location: T 18 Chest x-ray exam, PA [...] be helpful to exclude underlying process at 1421 Reported and s igned by: Iona Driscoll M.D. CC: Usman Hendrickson DO Technologist: Carmen Watkins RT(R) Trnscrd Date/Time/By: 09/19/2018 (1421) : By: [email or web address] Orig Print D/T: S: 09/19/2018 (6336) PAGE 1 Signed Report - CT HEAD/BRAIN W/O [id number] 14:10:00 Name: JOSHUA CACERES [facility] : 1960 Age/S: 57 / M [address] Unit #: [id number] Loc: [place] [address] Phys: Usman Hendrickson Rubi Acct: [id number] Dis Date: Status: REG ER PHONE #: [phone] Exam Date: 09/19/2018 1404 FAX #: [phone] Reason: Altered Mental Status EXAMS: CPT CODE: [id number] CT HEAD/BRAIN W/O CONT 92726 TECHNIQUE: - CT HEAD/BRAIN W/O CONT . [...] CACERES : 1960 Age/S: 57 / M Silvina Brewer damon Unit #: [id number] Loc: [place] [address] Phys: MadhaviUsman Rubi DOUGLAS Acct: [id number] Dis Date: Status: REG ER PHONE #: [phone] Exam Date: 09/19/2018 1404 FAX #: [phone] Reason: Altered Mental Status EXAMS: CPT COD E: [id number] CT HEAD/BRAIN W/O CONT 56349 <Continued> at 1410 Reported and signed by: Dillan Menendez M.D. CC: Usman Hendrickson DO Technologist:Glen Kruse RT(R),(MR),(CT); CTDI: DLP: Trnscb Date/Time: 09/19/2018 (0130) [email or web address] Orig Print D/T: S: 09/19/2018 (1071) PAGE 2 Signed Report BASIC METABOLIC [id number] 14:08:00* Test Item Value Reference Range Interpretation [...] code = CA) mg/dL 8.5-10.1 HEPATIC FUNCTION [id number] 14:08:00* Test Item Value Reference Range Interpretation [...] TOTAL (test code = ALKP) IUnit/L 45-117 OGZRKEHP-[id number] 14:08:00* Test Item Value Reference Range Interpretation Comments TROPONIN-I (test code = TROPI) ng/mL 0-0.045 CBC W/AUTO [id number] 14:01:00* Test Item Value Reference Range Interpretation [...] = MDIFF) NO, ONLY SCAN NEEDED DIFFERENTIAL [id number] 14:01:00* Test Item Value Reference Range Interpretation Comments STAIN ACCEPTABILITY (test code = STN ACCEPTABLE) CABOT RINGS (test code = CAB) MORPHOLOGY COMMENT (test code = MOC) PLATELET ESTIMATE (test code = PLTEST) PLATELET MORPHOLOGY (test code = PLTMORPH) CBC W/AUTO [id number] 14:01:00* Test Item Value Reference Range Interpretation [...] = MDIFF) NO, ONLY SCAN NEEDED DIFFERENTIAL [id number] 14:01:00* Test Item Value Reference Range Interpretation Comments STAIN ACCEPTABILITY (test code = STN ACCEPTABLE) MORPHOLOGY COMMENT (test code = MOC) PLATELET ESTIMATE (test code = PLTEST) PLATELET MORPHOLOGY (test code = PLTMORPH) CBC W/AUTO [id number] 14:01:00* Test Item Value Reference Range Interpretation [...] = MDIFF) NO, ONLY SCAN NEEDED DIFFERENTIAL [id number] 14:01:00* Test Item Value Reference Range Interpretation Comments STAIN ACCEPTABILITY (test code = STN ACCEPTABLE) MORPHOLOGY COMMENT (test code = MOC) PLATELET ESTIMATE (test code = PLTEST) PLATELET MORPHOLOGY (test code = PLTMORPH) CBC W/AUTO [id number] 14:00:00* Test Item Value Reference Range Interpretation [...] = MDIFF) NO, ONLY SCAN NEEDED DIFFERENTIAL [id number] 14:00:00* Test Item Value Reference Range Interpretation Comments STAIN ACCEPTABILITY (test code = STN ACCEPTABLE) CABOT RINGS (test code = CAB) MORPHOLOGY COMMENT (test code = MOC) PLATELET ESTIMATE (test code = PLTEST) PLATELET MORPHOLOGY (test code = PLTMORPH) Triiodothyronine (T3) Free [Mass/volume] in Serum or Yydqzd2186-52-38 00:00:00* Test Item Value Reference Range Interpretation Comments T3, free (test code = T3, free) 2.8 pg/mL 2.3-4.2 [facility] RNA [Units/volume] (viral load) in Serum or Plasma by Probe and target amplification nmxihh7919-16-05 00:00:00* Test Item Value Reference Range Interpretation Comments hepatitis C antibody (test code = hepatitis C antibody) non- reactive non-reactive signal to cut-off (test code = signal to cut-off) 0.04 <1.0 0 [facility] HospitalThyroperoxidase Ab [Units/volume] in Kihtc9668-27-25 00:00:00* Test Item Value Reference Range Interpretation Comments thyroid peroxidase antibodies (test code = thyroid peroxidase an tibodies) <1 <9 [facility]yroxine (T4) free [Mass/volume] in Serum or Plasma 2018-08-08 00:00:00* Test Item Value Reference Range Interpretation Comments T4, free (test code = T4, free) 1.7 NG/dL 0.8-1.8 [facility]Com[facility] 2000 panel - Serum or Plasma 2018-08-01 00:00:00* Test Item Value Reference Range Interpretation Comments glucose (test code = glucose) 196 mg/dL 65-99 H urea nitrogen (BUN) (test code = urea nitrogen (BUN)) 45 mg/dL 7-25 H creatinine (test code = creatinine) 6.16 mg/dL 0.70-1.33 H eGFR non-afr. turkish (test code = eGFR non-afr. turkish) 9 mL/min/1.73m2 > or = 60 L [...] (test code = ALT) 24 U/L 9-46 [facility] 1996 panel - Serum or Cuusoe6923-71-85 00:00:00* Test Item Value Reference Range Interpretation [...] cholesterol) 132 mg/dL (ca lc) <130 H [facility] HospitalHemoglobin A1c/Hemoglobin.total in Kmrty2584-46-57 00:00:00* Test Item Value Reference Range Interpretation Comments Hemoglobin A1c/Hemoglobin.total in Blood (test code = 4548-4) 5.7 % of total HGB <5.7 H EAG (mg/dL) (test code = EAG (mg/dL)) 117 (calc) EAG (mmol/L) (test code = EAG (mmol/L)) 6.5 (calc) [facility]CBC W Auto Differential panel - Fsdxo5472-28-92 00:00:00 * Test Item Value Reference Range [...] code = absolute neutrophils) 4556 sarah ls/uL 1505-4868 absolute lymphocytes (test code = absolute lymphocytes) [...] basophils (test code = basophils) 1.2 % [facility] HospitalThyrotropin [Units/volume] in Serum or Htcevf1717-91-10 00:00:00* Test Item Value Reference Range Interpretation Comments TSH (test code = TSH) 0.16 mIU/L 0.40-4.50 L [facility]Com[facility] 2000 panel - Serum or Plasma 2018-08-01 00:00:00* Test Item Value Reference Range Interpretation Comments glucose (test code = glucose) 196 mg/dL 65-99 H urea nitrogen (BUN) (test code = urea nitrogen (BUN)) 45 mg/dL 7-25 H creatinine (test code = creatinine) 6.16 mg/dL 0.70-1.33 H eGFR non-afr. turkish (test code = eGFR non-afr. turkish) 9 mL/min/1.73m2 > or = 60 L [...] (test code = ALT) 24 U/L 9-46 [facility]Lip[facility] 1996 panel - Serum or Ssuciw0604-62-48 00:00:00* Test Item Value Reference Range Interpretation [...] cholesterol) 132 mg/dL (ca lc) <130 H [facility] HospitalHemoglobin A1c/Hemoglobin.total in Dpbsg9328-80-07 00:00:00* Test Item Value Reference Range Interpretation Comments Hemoglobin A1c/Hemoglobin.total in Blood (test code = 4548-4) 5.7 % of total HGB <5.7 H EAG (mg/dL) (test code = EAG (mg/dL)) 117 (calc) EAG (mmol/L) (test code = EAG (mmol/L)) 6.5 (calc) [facility] HospitalCBC W Auto Differential panel - Betdp6805-97-89 00:00:00 * Test Item Value Reference Range [...] code = absolute neutrophils) 4556 sarah ls/uL 3022-7118 absolute lymphocytes (test code = absolute lymphocytes) [...] basophils (test code = basophils) 1.2 % [facility] HospitalThyrotropin [Units/volume] in Serum or Qtdkrk6904-43-17 00:00:00* Test Item Value Reference Range Interpretation Comments TSH (test code = TSH) 0.16 mIU/L 0.40-4.50 L [facility] Be Usddxlj7091-73-46 12:47:00* Test Item Value Reference Range Interpretation Comments Hepatitis Be Antigen (test code = 56629-8) Negative Negative [facility] B Core IgM Psgyhuef7664-61-07 12:47:00* Test Item Value Reference Range Interpretation Comments Hepatitis B Core IgM Antibody (test code = 91395-1) Negative Ne gative Performed at: [facility] [id number] Director: Alec Javier MD, Phone: [phone] [facility] Health [facility] Be Iwipkro1183-73-43 12:47:00* Test Item Value Reference Range Interpretation Comments Hepatitis Be Antigen (test code = 79569-5) Negative Negative [facility] B Core IgM Tqpckltb9256-34-20 12:47:00* Test Item Value Reference Range Interpretation Comments Hepatitis B Core IgM Antibody (test code = 76762-5) Negative Ne gative Performed at: [facility] [id number] Director: Alec Javier MD, Phone: [phone] Texas Health System McAllenBedside Tvzuagp3168-73-61 16:25:00* Test Item Value Reference Range Interpretation Comments Bedside Glucose (test code = 35169-1) 182 70-120 H Meter ID: [id number] [facility] Campusodium Level 2018-07-13 06:39:00* Test Item Value Reference Range Interpretation Comments Sodium Level (test code = 2951-2) 138 136-145 [facility]AllenPotassium Dqgqi0310-91-73 06:39:00* Test Item Value Reference Range Interpretation Comments Potassium Level (test code = 2823-3) 4.8 3.5-5.1 [facility] McAllenChloride Lstic7032-56-60 06:39:00* Test Item Value Reference Range Interpretation Comments Chloride Level (test code = 2075-0) 100 98-107 [facility] McAllenCarbon Dioxide Bvfkc2215-06-29 06:39:00* Test Item Value Reference Range Interpretation Comments Carbon Dioxide Level (test code = 2028-9) 28 22-29 [facility] McAllenAnion Txe4472-72-92 06:39:00* Test Item Value Reference Range Interpretation Comments Anion Gap (test code = 13685-5) 14.8 8-16 [facility] McAllenBlood Urea Surhziwo9564-42-25 06:39:00* Test Item Value Reference Range Interpretation Comments Blood Urea Nitrogen (test code = 3094-0) 43 7-26 H [facility] McAllenCreatinine2019-03-16 06:39:00* Test Item Value Reference Range Interpretation Comments Creatinine (test code = 2160-0) 6.00 0.72-1.25 H [facility]AllenBUN/Creatinine Mprgp0574-51-13 06:39:00* Test Item Value Reference Range Interpretation Comments BUN/Creatinine Ratio (test code = 3097-3) 7 6-25 [facility] McAllenEstimat Glomerular Filtration Rate 2018-07-13 06:39:00* Test Item Value Reference Range Interpretation Comments Estimat Glomerular Filtration Rate (test code = 410281013) 10 >60 L Ranges were taken from the National Kidney Disease Education Program and the [facility] Kidney Foundation literature.Reference ranges:60 or greater: Nhbhay36-29 ( for 3 consecutive months): Chronic kidney disease 15 or less: Kidney failureSouth Texas Health System McAllenGlucose Elgqd7274-24-83 06:39:00* Test Item Value Reference Range Interpretation Comments Glucose Level (test code = GRJ1503) 104 74-118 [facility] McAllenCalcium Jzwfc3909-06-54 06:39:00* Test Item Value Reference Range Interpretation Comments Calcium Level (test code = 87708-3) 7.7 8.4-10.2 L [facility] McAllenHemoglobin A1c Ynzenog6591-44-48 09:58:00 * Test Item Value Reference Range Interpretation Comments Hemoglobin A1c Percent (test code = Hemoglobin A1c Percent) 5.6 4.0-7.0 [facility]gn[facility] Gdlsh9851-33-10 01:27:00* Test Item Value Reference Range Interpretation Comments Magnesium Level (test code = 94115-0) 2.0 1.3-2.1 [facility] Uxahq5752-62-14 01:27:00* Test Item Value Reference Range Interpretation Comments Magnesium Level (test code = 52131-9) 2.0 1.3-2.1 [facility] Pvwcn3451-80-55 01:27:00* Test Item Value Reference Range Interpretation Comments Magnesium Level (test code = 69659-9) 2.0 1.3-2.1 [facility] McAllenWhite Blood Jjleq9724-07-54 01:08:00* Test Item Value Reference Range Interpretation Comments White Blood Count (test code = 6690-2) 5.76 4.8-10.8 [facility] McAllenRed Blood Iofls0464-01-44 01:08:00* Test Item Value Reference Range Interpretation Comments Red Blood Count (test code = 789-8) 3.21 4.3-5.7 L [facility] McAllenHemoglobin2019-03-14 01:08:00* Test Item Value Reference Range Interpretation Comments Hemoglobin (test code = 59383-1) 9.6 14.0-18.0 L [facility] McAllenHematocrit2019-03-14 01:08:00* Test Item Value Reference Range Interpretation Comments Hematocrit (test code = 4544-3) 30.1 38.2-49.6 L [facility] McAllenMean Corpuscular Zowdld1485-00-85 01:08:00* Test Item Value Reference Range Interpretation Comments Mean Corpuscular Volume (test code = 787-2) 93.8 81-99 [facility] McAllenMean Corpuscular Fdayowdptl9279-15-39 01:08:00* Test Item Value Reference Range Interpretation Comments Mean Corpuscular Hemoglobin (test code = 785-6) 29.9 28-32 [facility] McAllenMean Corpuscular Hemoglobin Concent 2018-07-11 01:08:00* Test Item Value Reference Range Interpretation Comments Mean Corpuscular Hemoglobin Concent (test code = 786-4) 31.9 31-35 [facility] McAllenRed Cell Distribution Jgzsx6623-24-35 01:08:00* Test Item Value Reference Range Interpretation Comments Red Cell Distribution Width (test code = 40125-8) 16.5 11.7 -14.4 H [facility] McAllenPlatelet Xmigk6538-42-72 01:08:00* Test Item Value Reference Range Interpretation Comments Platelet Count (test code = 777-3) 134 140-360 L [facility] McAllenNeutrophils (%) (Auto)2018-07-11 01:08:00 * Test Item Value Reference Range Interpretation Comments Neutrophils (%) (Auto) (test code = 26600-2) 63.6 38.7-80.0 [facility]AllenLymphocytes (%) (Auto)2018-07-11 01:08:00 * Test Item Value Reference Range Interpretation Comments Lymphocytes (%) (Auto) (test code = 736-9) 19.6 18.0-39.1 [facility]AllenMonocytes (%) (Auto)2018-07-11 01:08:00* Test Item Value Reference Range Interpretation Comments Monocytes (%) (Auto) (test code = 5905-5) 11.6 4.4-11.3 H [facility]AllenEosinophils (%) (Auto)2018-07-11 01:08:00 * Test Item Value Reference Range Interpretation Comments Eosinophils (%) (Auto) (test code = 713-8) 3.3 0.0-6.0 [facility]AllenBasophils (%) (Auto)2018-07-11 01:08:00* Test Item Value Reference Range Interpretation Comments Basophils (%) (Auto) (test code = 706-2) 1.7 0.0-1.0 H [facility] McAllenIM GRANULOCYTES %2018-07-11 01:08:00* Test Item Value Reference Range Interpretation Comments IM GRANULOCYTES % (test code = IM GRANULOCYTES %) 0.2 0.0- 1.0 [facility]AllenNeutrophils # (Auto)2018-07-11 01:08:00* Test Item Value Reference Range Interpretation Comments Neutrophils # (Auto) (test code = 751-8) 3.7 2.1-6.9 [facility]AllenLymphocytes # (Auto)2018-07-11 01:08:00* Test Item Value Reference Range Interpretation Comments Lymphocytes # (Auto) (test code = 69255-5) 1.1 1.0-3.2 [facility] McAllenMonocytes # (Auto)2018-07-11 01:08:00* Test Item Value Reference Range Interpretation Comments Monocytes # (Auto) (test code = 742-7) 0.7 0.2-0.8 [facility]AllenEosinophils # (Auto)2018-07-11 01:08:00* Test Item Value Reference Range Interpretation Comments Eosinophils # (Auto) (test code = 711-2) 0.2 0.0-0.4 [facility]AllenBasophils # (Auto)2018-07-11 01:08:00* Test Item Value Reference Range Interpretation Comments Basophils # (Auto) (test code = 704-7) 0.1 0.0-0.1 [facility] McAllenAbsolute Immature Granulocyte (auto 2018-07-11 01:08:00* Test Item Value Reference Range Interpretation Comments Absolute Immature Granulocyte (auto (dany t code = Absolute Immature Granulocyte (auto) 0.01 0-0.1 [facility] McAllenB-Type Natriuretic Btqayqt1450-22-84 06:15:00* Test Item Value Reference Range Interpretation Comments B-Type Natriuretic Peptide (test code = 11162-9) > 5000.0 0-100 H [facility] McAllenB-Type Natriuretic Tzlgfpi5297-62-47 06:15:00* Test Item Value Reference Range Interpretation Comments B-Type Natriuretic Peptide (test code = 30509-1) > 5000.0 0-100 H [facility] McAllenThyroid Stimulating Hormone (TSH) 2018-07-09 06:59:00* Test Item Value Reference Range Interpretation Comments Thyroid Stimulating Hormone (TSH) (test code = 28533-2) 1.555 0.350-4.940 [facility] McAllenThyroid Stimulating Hormone (TSH) 2018-07-09 06:59:00* Test Item Value Reference Range Interpretation Comments Thyroid Stimulating Hormone (TSH) (test code = 72419-2) 1.555 0.350-4.940 [facility] McAllenThyroid Stimulating Hormone (TSH) 2018-07-09 06:59:00* Test Item Value Reference Range Interpretation Comments Thyroid Stimulating Hormone (TSH) (test code = 15858-9) 1.555 0.350-4.940 [facility]AllenPhosphorus Bxegv3643-64-99 06:45:00* Test Item Value Reference Range Interpretation Comments Phosphorus Level (test code = USN2030) 5.3 2.3-4.7 H [facility] McAllenIro Goubd3194-00-74 06:45:00* Test Item Value Reference Range Interpretation Comments Iron Level (test code = 2498-4) 38 65-175 L [facility] McAllenTotal Iron Binding Evrkxufw0486-35-92 06:45:00* Test Item Value Reference Range Interpretation Comments Total Iron Binding Capacity (test code = 2500-7) 287 261-4 78 [facility] McAllenPercent Iron Yyocphlcpq9246-47-48 06:45:00* Test Item Value Reference Range Interpretation Comments Percent Iron Saturation (test code = 2502-3) 13 15-50 L [facility] McAllenTransferrin2019-03-12 06:45:00* Test Item Value Reference Range Interpretation Comments Transferrin (test code = 3034-6) 205 174-364 [facility] McAllenPhosphorus Rnaiz5723-80-71 06:45:00* Test Item Value Reference Range Interpretation Comments Phosphorus Level (test code = WWG8573) 5.3 2.3-4.7 H [facility] McAllenIron Neazm2729-39-24 06:45:00* Test Item Value Reference Range Interpretation Comments Iron Level (test code = 2498-4) 38 65-175 L [facility] McAllenTotal Iron Binding Qfkfzprv4326-01-62 06:45:00* Test Item Value Reference Range Interpretation Comments Total Iron Binding Capacity (test code = 2500-7) 287 261-4 78 [facility] McAllenPercent Iron Dyzjicizfz0277-33-74 06:45:00* Test Item Value Reference Range Interpretation Comments Percent Iron Saturation (test code = 2502-3) 13 15-50 L [facility] McAllenTransferrin2019-03-12 06:45:00* Test Item Value Reference Range Interpretation Comments Transferrin (test code = 3034-6) 205 174-364 [facility] McAllenPhosphorus Kxuwb6378-36-45 06:45:00* Test Item Value Reference Range Interpretation Comments Phosphorus Level (test code = OLL2763) 5.3 2.3-4.7 H [facility] McAllenIron Stvqz0561-94-57 06:45:00* Test Item Value Reference Range Interpretation Comments Iron Level (test code = 2498-4) 38 65-175 L [facility] McAllenTotal Iron Binding Qqslkkve1957-48-83 06:45:00* Test Item Value Reference Range Interpretation Comments Total Iron Binding Capacity (test code = 2500-7) 287 261-4 78 [facility] McAllenPercent Iron Uyxxypgukx6503-20-13 06:45:00* Test Item Value Reference Range Interpretation Comments Percent Iron Saturation (test code = 2502-3) 13 15-50 L [facility] McAllenTransferrin2019-03-12 06:45:00* Test Item Value Reference Range Interpretation Comments Transferrin (test code = 3034-6) 205 174-364 [facility] McAllenVitamin B12 Hchbw9036-04-37 06:16:00* Test Item Value Reference Range Interpretation Comments Vitamin B12 Level (test code = 92825-4) 369 213-816 [facility] McAllenFolate2019-03-12 06:16:00* Test Item Value Reference Range Interpretation Comments Folate (test code = 2284-8) 6.9 7.0-15.4 L [facility] McAllenVitamin B12 Ngwod7399-87-15 06:16:00* Test Item Value Reference Range Interpretation Comments Vitamin B12 Level (test code = 51704-5) 369 213-816 [facility] McAllenFolate2019-03-12 06:16:00* Test Item Value Reference Range Interpretation Comments Folate (test code = 2284-8) 6.9 7.0-15.4 L [facility] McAllenVitamin B12 Tnysj9406-18-86 06:16:00* Test Item Value Reference Range Interpretation Comments Vitamin B12 Level (test code = 06638-0) 369 213-816 [facility] McAllenFolate2019-03-12 06:16:00* Test Item Value Reference Range Interpretation Comments Folate (test code = 2284-8) 6.9 7.0-15.4 L [facility] McAllenCreatine Kinase AK0074-49-63 05:50:00* Test Item Value Reference Range Interpretation Comments Creatine Kinase MB (test code = 47275-1) 0.90 0-5.0 [facility] McAllenTroponin F4756-04-99 05:50:00* Test Item Value Reference Range Interpretation Comments Troponin I (test code = ZKU7540) 0.077 0-0.300 [facility] McAllenCreatine Jlkgft8160-32-24 05:43:00* Test Item Value Reference Range Interpretation Comments Creatine Kinase (test code = 2157-6) 71 30-200 [facility] McAllenTotal Txccxrkhp0218-09-11 10:36:00* Test Item Value Reference Range Interpretation Comments Total Bilirubin (test code = 1975-2) 0.5 0.2-1.2 [facility] McAllenAspartate Amino Transf (AST/SGOT) 2018-07-08 10:36:00* Test Item Value Reference Range Interpretation Comments Aspartate Amino Transf (AST/SGOT) (test code = Aspartate Amino Transf (AST/SGOT)) 21 5-34 [facility] McAllenAlanine Aminotransferase (ALT/SGPT) 2018-07-08 10:36:00* Test Item Value Reference Range Interpretation Comments Alanine Aminotransferase (ALT/SGPT) (test code = 1742-6) 20 0-55 [facility]AllenTotal Hgivldb3691-22-33 10:36:00* Test Item Value Reference Range Interpretation Comments Total Protein (test code = 2885-2) 6.4 6.5-8.1 L [facility] McAllenAlbumin2019-03-11 10:36:00* Test Item Value Reference Range Interpretation Comments Albumin (test code = 1751-7) 2.9 3.5-5.0 L [facility]AllenGlobulin2019-03-11 10:36:00* Test Item Value Reference Range Interpretation Comments Globulin (test code = 35973-9) 3.5 2.3-3.5 [facility]AllenAlbumin/Globulin Xivqp9288-04-16 10:36:00 * Test Item Value Reference Range Interpretation Comments Albumin/Globulin Ratio (test code = 1759-0) 0.8 0.8-2.0 [facility] McAllenAlkaline Dcepvtzvnuv8040-02-18 10:36:00* Test Item Value Reference Range Interpretation Comments Alkaline Phosphatase (test code = 6768-6) 149 40-150 [facility]AllenCHEST SINGLE (PORTABLE)2018-07-08 10:09:00 [facility] [address] [place] [address] Patient Name: JOSHUA CACERES MR #: [id number] : 1960 Age/Sex: 57/M Req #: [id number] Adm Physician: Ordered by: AISHA NOVOA MD Report #: [id number] Location: ER Room/Bed: Procedure: [id number] DX/SRIDEVI ST SINGLE (PORTABLE) Exam Date: 07/08/18 [...] 1011 COPY TO: AISHA NOVOA MD Bedside Thzmujk6403-72-72 15:59:00* Test Item Value Reference Range Interpretation Comments Bedside Glucose (test code = 68458-3) 170 70-120 H Meter ID: [id number] [facility]IEWS 2018-06-28 18:15:00 [place] [address] Patient Name: JOSHUA CACERES MR #: [id number] : 1960 Age/Sex: 57/M Req #: [id number] Adm Physician: DILLAN FAUSTIN MD Ordered by: MESERET MORE MD Report #: [id number] Location: MED/SURG Room/Bed: [facility] Procedure: [id number] DX/CHEST 2 VIEWS Exam Date: 06/28/18 Exam [...] C OPY TO: MESERET MORE MD Phosphorus Ufqep3803-04-26 17:00:00* Test Item Value Reference Range Interpretation Comments Phosphorus Level (test code = NHI8527) 2.9 2.3-4.7 [facility] C Pzoyqvdg0910-37-62 07:45:00* Test Item Value Reference Range Interpretation Comments Hepatitis C Antibody (test code = 20487-8) <0.1 0.0-0.9 Negative: < 0.8 Indeterminate: 0.8 - 0.9 Positive: > 0.9 The CDC recommends that a positive HCV antibody result be followed up with a HCV Nucleic Acid Amplification test (217450).Performed at: [facility] [address] [place] [place], [place] [id number] Director: Alec Javier MD, Phone: [phone] [facility] Health [facility] McAllen C Qajbwnmv5965-45-15 07:45:00* Test Item Value Reference Range Interpretation Comments Hepatitis C Antibody (test code = 39283-2) <0.1 0.0-0.9 Negative: < 0.8 Indeterminate: 0.8 - 0.9 Positive: > 0.9 The CDC recommends that a positive HCV antibody result be followed up with a HCV Nucleic Acid Amplification test (466397).Performed at: [facility] [employer] [id number] [place] [id number] Director: Alec Javier MD, Phone: [phone] Texas Health System McAllenHepatitis C Rypkadoy7754-49-60 07:45:00* Test Item Value Reference Range Interpretation Comments Hepatitis C Antibody (test code = 29834-8) <0.1 0.0-0.9 Negative: < 0.8 Indeterminate: 0.8 - 0.9 Positive: > 0.9 The CDC recommends that a positive HCV antibody result be followed up with a HCV Nucleic Acid Amplification test (133210).Performed at: [facility] [employer] [id number] [place] [id number] Director: Alec Javier MD, Phone: [phone] [facility] Health System McAllenHepatibristol regional medical center C Pljbvqyx7694-18-89 07:45:00* Test Item Value Reference Range Interpretation Comments Hepatitis C Antibody (test code = 66601-5) <0.1 0.0-0.9 Negative: < 0.8 Indeterminate: 0.8 - 0.9 Positive: > 0.9 The CDC recommends that a positive HCV antibody result be followed up with a HCV Nucleic Acid Amplification test (703383).Performed at: [facility] [facility] [address] [place] [id number] Director: Alec Javier MD, Phone: [phone] Texas Health System McAllenHemoglobin2019-02-27 22:55:00 * Test Item Value Reference Range Interpretation Comments Hemoglobin (test code = 94816-2) 8.8 14.0-18.0 L [facility] SoutheastHematocrit2019-02-27 22:55:00* Test Item Value Reference Range Interpretation Comments Hematocrit (test code = 4544-3) 27.5 38.2-49.6 L [facility] Hnoxe0128-81-04 09:09:00* Test Item Value Reference Range Interpretation Comments Sodium Level (test code = 2951-2) 138 136-145 [facility] McAllenPotassium Xyqbo8833-11-80 09:09:00* Test Item Value Reference Range Interpretation Comments Potassium Level (test code = 2823-3) 4.5 3.5-5.1 [facility] McAllenChloride Bospk9279-56-08 09:09:00* Test Item Value Reference Range Interpretation Comments Chloride Level (test code = 2075-0) 100 98-107 [facility] McAllenCarbon Dioxide Smigs1761-49-57 09:09:00* Test Item Value Reference Range Interpretation Comments Carbon Dioxide Level (test code = 2028-9) 27 22-29 [facility] McAllenAnion Dxp7268-40-70 09:09:00* Test Item Value Reference Range Interpretation Comments Anion Gap (test code = 07052-9) 15.5 8-16 [facility] McAllenBlood Urea Obzotfba9585-93-60 09:09:00* Test Item Value Reference Range Interpretation Comments Blood Urea Nitrogen (test code = 3094-0) 40 7-26 H [facility] McAllenCreatinine2019-02-27 09:09:00* Test Item Value Reference Range Interpretation Comments Creatinine (test code = 2160-0) 5.24 0.72-1.25 H [facility] McAllenBUN/Creatinine Dfzmq6189-15-27 09:09:00* Test Item Value Reference Range Interpretation Comments BUN/Creatinine Ratio (test code = 3097-3) 8 6-25 [facility] McAllenEstimat Glomerular Filtration Rate 2018-06-26 09:09:00* Test Item Value Reference Range Interpretation Comments Estimat Glomerular Filtration Rate (test code = 894667416) 11 >60 L Ranges were taken from the National Kidney Disease Education Program and the [facility] Kidney Foundation literature.Reference ranges:60 or greater: Hbdebp43-80 ( for 3 consecutive months): Chronic kidney disease 15 or less: Kidney failureSouth Texas Health System McAllenGlucose Rggiy4387-06-05 09:09:00* Test Item Value Reference Range Interpretation Comments Glucose Level (test code = TJC0645) 105 74-118 [facility] McAllenCalcium Biiuu4505-47-31 09:09:00* Test Item Value Reference Range Interpretation Comments Calcium Level (test code = 51802-2) 7.3 8.4-10.2 L [facility] McAllenTotal Bjzwzyuju2864-63-20 09:09:00* Test Item Value Reference Range Interpretation Comments Total Bilirubin (test code = 1975-2) 0.4 0.2-1.2 [facility] McAllenAspartate Amino Transf (AST/SGOT) 2018-06-26 09:09:00* Test Item Value Reference Range Interpretation Comments Aspartate Amino Transf (AST/SGOT) (test code = Aspartate Amino Transf (AST/SGOT)) 16 5-34 [facility] McAllenAlanine Aminotransferase (ALT/SGPT) 2018-06-26 09:09:00* Test Item Value Reference Range Interpretation Comments Alanine Aminotransferase (ALT/SGPT) (test code = 1742-6) 9 0-55 [facility] McAllenTotal Nurvoop0843-21-58 09:09:00* Test Item Value Reference Range Interpretation Comments Total Protein (test code = 2885-2) 5.6 6.5-8.1 L [facility] McAllenAlbumin2019-02-27 09:09:00* Test Item Value Reference Range Interpretation Comments Albumin (test code = 1751-7) 2.5 3.5-5.0 L [facility] McAllenGlobulin2019-02-27 09:09:00* Test Item Value Reference Range Interpretation Comments Globulin (test code = 73006-3) 3.1 2.3-3.5 [facility] McAllenAlbumin/Globulin Vyvbk7937-18-86 09:09:00 * Test Item Value Reference Range Interpretation Comments Albumin/Globulin Ratio (test code = 1759-0) 0.8 0.8-2.0 [facility] McAllenAlkaline Sjjealjpppk5826-26-38 09:09:00* Test Item Value Reference Range Interpretation Comments Alkaline Phosphatase (test code = 6768-6) 103 40-150 [facility] McAllenWhite Blood Suhmh8877-01-54 08:29:00* Test Item Value Reference Range Interpretation Comments White Blood Count (test code = 6690-2) 2.86 4.8-10.8 L [facility] McAllenRed Blood Zedgp8400-91-97 08:29:00* Test Item Value Reference Range Interpretation Comments Red Blood Count (test code = 789-8) 2.58 4.3-5.7 L [facility] McAllenMean Corpuscular Usbuyg7021-08-41 08:29:00* Test Item Value Reference Range Interpretation Comments Mean Corpuscular Volume (test code = 787-2) 93.0 81-99 [facility]AllenMean Corpuscular Gelhcotdyc3073-24-55 08:29:00* Test Item Value Reference Range Interpretation Comments Mean Corpuscular Hemoglobin (test code = 785-6) 29.1 28-32 [facility] McAllenMean Corpuscular Hemoglobin Concent 2018-06-26 08:29:00* Test Item Value Reference Range Interpretation Comments Mean Corpuscular Hemoglobin Concent (test code = 786-4) 31.3 31-35 [facility] McAllenRed Cell Distribution Pmsgt1133-02-83 08:29:00* Test Item Value Reference Range Interpretation Comments Red Cell Distribution Width (test code = 50907-3) 14.8 11.7 -14.4 H [facility] McAllenPlatelet Dtvxb1320-84-01 08:29:00* Test Item Value Reference Range Interpretation Comments Platelet Count (test code = 777-3) 132 140-360 L [facility] McAllenNeutrophils (%) (Auto)2018-06-26 08:29:00 * Test Item Value Reference Range Interpretation Comments Neutrophils (%) (Auto) (test code = 12840-8) 60.3 38.7-80.0 [facility] McAllenLymphocytes (%) (Auto)2018-06-26 08:29:00 * Test Item Value Reference Range Interpretation Comments Lymphocytes (%) (Auto) (test code = 736-9) 26.2 18.0-39.1 [facility] McAllenMonocytes (%) (Auto)2018-06-26 08:29:00* Test Item Value Reference Range Interpretation Comments Monocytes (%) (Auto) (test code = 5905-5) 6.6 4.4-11.3 [facility]AllenEosinophils (%) (Auto)2018-06-26 08:29:00 * Test Item Value Reference Range Interpretation Comments Eosinophils (%) (Auto) (test code = 713-8) 5.9 0.0-6.0 [facility]AllenBasophils (%) (Auto)2018-06-26 08:29:00* Test Item Value Reference Range Interpretation Comments Basophils (%) (Auto) (test code = 706-2) 0.7 0.0-1.0 [facility] McAllenIM GRANULOCYTES %2018-06-26 08:29:00* Test Item Value Reference Range Interpretation Comments IM GRANULOCYTES % (test code = IM GRANULOCYTES %) 0.3 0.0- 1.0 [facility] McAllenNeutrophils # (Auto)2018-06-26 08:29:00* Test Item Value Reference Range Interpretation Comments Neutrophils # (Auto) (test code = 751-8) 1.7 2.1-6.9 L [facility] McAllenLymphocytes # (Auto)2018-06-26 08:29:00* Test Item Value Reference Range Interpretation Comments Lymphocytes # (Auto) (test code = 62382-2) 0.8 1.0-3.2 L [facility] McAllenMonocytes # (Auto)2018-06-26 08:29:00* Test Item Value Reference Range Interpretation Comments Monocytes # (Auto) (test code = 742-7) 0.2 0.2-0.8 [facility]AllenEosinophils # (Auto)2018-06-26 08:29:00* Test Item Value Reference Range Interpretation Comments Eosinophils # (Auto) (test code = 711-2) 0.2 0.0-0.4 [facility]AllenBasophils # (Auto)2018-06-26 08:29:00* Test Item Value Reference Range Interpretation Comments Basophils # (Auto) (test code = 704-7) 0.0 0.0-0.1 [facility] McAllenAbsolute Immature Granulocyte (auto 2018-06-26 08:29:00* Test Item Value Reference Range Interpretation Comments Absolute Immature Granulocyte (auto (dany t code = Absolute Immature Granulocyte (auto) 0.01 0-0.1 [facility] McAllenProthrombin Ioth6924-28-54 07:27:00* Test Item Value Reference Range Interpretation Comments Prothrombin Time (test code = 5902-2) 13.6 11.9-14.5 [facility] McAllenProthromb Time International Ratio 2018-06-24 07:27:00* Test Item Value Reference Range Interpretation Comments Prothromb Time International Ratio (test code = 6301-6) 0.95 Oral Anticoagulant Therapy INR Values:1. Low Intensity Therapy 1.5 - 2.02 . Moderate Intensity Therapy 2.0 - 3.03. High Intensity Therapy(1) 2.5 - 3. 54. High Intensity Therapy(2) 3.0 - 4.05. Panic Value INR > 5.0 [facility] McAllenActivated Partial Thromboplast Time 2018-06-24 07:27:00* Test Item Value Reference Range Interpretation Comments Activated Partial Thromboplast Time (test code = 62876-6) 39.4 23.8-35.5 H [facility] McAllenProthrombin Cuhk3274-93-01 07:27:00* Test Item Value Reference Range Interpretation Comments Prothrombin Time (test code = 5902-2) 13.6 11.9-14.5 [facility] McAllenProthromb Time International Ratio 2018-06-24 07:27:00* Test Item Value Reference Range Interpretation Comments Prothromb Time International Ratio (test code = 6301-6) 0.95 Oral Anticoagulant Therapy INR Values:1. Low Intensity Therapy 1.5 - 2.02 . Moderate Intensity Therapy 2.0 - 3.03. High Intensity Therapy(1) 2.5 - 3. 54. High Intensity Therapy(2) 3.0 - 4.05. Panic Value INR > 5.0 [facility] McAllenActivated Partial Thromboplast Time 2018-06-24 07:27:00* Test Item Value Reference Range Interpretation Comments Activated Partial Thromboplast Time (test code = 75824-5) 39.4 23.8-35.5 H [facility] McAllenProthrombin Aylx5840-68-90 07:27:00* Test Item Value Reference Range Interpretation Comments Prothrombin Time (test code = 5902-2) 13.6 11.9-14.5 [facility] McAllenProthromb Time International Ratio 2018-06-24 07:27:00* Test Item Value Reference Range Interpretation Comments Prothromb Time International Ratio (test code = 6301-6) 0.95 Oral Anticoagulant Therapy INR Values:1. Low Intensity Therapy 1.5 - 2.02 . Moderate Intensity Therapy 2.0 - 3.03. High Intensity Therapy(1) 2.5 - 3. 54. High Intensity Therapy(2) 3.0 - 4.05. Panic Value INR > 5.0 [facility] McAllenActivated Partial Thromboplast Time 2018-06-24 07:27:00* Test Item Value Reference Range Interpretation Comments Activated Partial Thromboplast Time (test code = 89444-0) 39.4 23.8-35.5 H [facility] McAllenActivated Partial Thromboplast Time 2018-06-24 07:27:00* Test Item Value Reference Range Interpretation Comments Activated Partial Thromboplast Time (test code = 74084-5) 39.4 23.8-35.5 H [facility] McAllenBody Fluid bF0991-36-15 12:36:00* Test Item Value Reference Range Interpretation Comments Body Fluid pH (test code = 36842-0) 7.6 Not Estab. This test was developed and its performance characteristicsdetermined by [facility] . It has not been cleared orapproved by the Food and Drug Administration.Perform ed at: [address] [id number] Dir sebastien: Johanna Hines MD, Phone: [phone] [facility] SoutheastBody Fluid jZ5697-53-10 12:36:00* Test Item Value Reference Range Interpretation Comments Body Fluid pH (test code = 34420-4) 7.6 Not Estab. This test was developed and its performance characteristicsdetermined by [employer] . It has not been cleared orapproved by the Food and Drug Administration.Perform ed at: [address] [id number] Dir sebastien: Johanna Hines MD, Phone: [phone] [facility] SoutheastBody Fluid wY3725-81-24 12:36:00* Test Item Value Reference Range Interpretation Comments Body Fluid pH (test code = 11756-7) 7.6 Not Estab. This test was developed and its performance characteristicsdetermined by [employer] . It has not been cleared orapproved by the Food and Drug Administration.Perform ed at: [address] [id number] Dir sebastien: Johanna Hines MD, Phone: [phone] [facility] Health System McAllenBody Fluid vR0534-00-37 12:36:00* Test Item Value Reference Range Interpretation Comments Body Fluid pH (test code = 73497-3) 7.6 Not Estab. This test was developed and its performance characteristicsdetermined by [employer] . It has not been cleared orapproved by the Food and Drug Administration.Perform ed at: [address] [id number] Dir sebastien: Johanna Hines MD, Phone: [phone] Texas Health System McAllenCHEST XRAY POST QYJQPJNYN3190-09-42 21:08:00 [place] [address] Patient Name: JOSHUA CACERES MR #: [id number] : 1960 Age/Sex: 57/M Req #: [id number] Adm Physician: DILLAN FAUSTIN MD Ordered by: TAMMI ANDERSON DO Report #: [id number] Location: MED/SURG Room/Bed: 112-1 Procedure: [id number] DX/CHEST X RAY POST PROCEDURE Exam Date: [...] 113 COPY TO: TAMMI ANDERSON DO IR CVJGWZB9507-03-78 16:40:00 [place] [address] Patient Name: JOSHUA CACERES MR #: [id number] : 1960 Age/Sex: 57/M Req #: [id number] Adm Physician: DILLAN FAUSTIN MD Ordered by: MESERET MORE MD Report #: [id number] Location: MED/SURG Room/Bed: 112-1 Procedure: [id number] DX/IR CONS ULT Exam Date: Exam Time: [...] 1640 COPY TO: MESERET MORE MD THORACENTESIS/US JXSWPR1731-29-14 16:40:00 [place] [address] Patient Name: JOSHUA CACERES MR #: [id number] : 1960 Age/Sex: 57/M Req #: [id number] Adm Physician: DILLAN FAUSTIN MD Ordered by: MESERET MORE MD Report #: [id number] Location: MED/SURG Room/Bed: [facility] Procedure: [id number] US/THORACE NTESIS/US GUIDED Exam Date: Exam Time: [...] TO: MESERET MORE MD US RENAL RETROPERITONEAL LKDP0535-59-69 16:40:00 [place] [address] Patient Name: JOSHUA CACERES MR #: [id number] : 1960 Age/Sex: 57/M Req #: [id number] [facility] Physician: DILLAN FAUSTIN MD Ordered by: GERSON ORTIZ MD, MD Report #: [id number] Location: MED/SURG Room/Bed: [facility] Procedure: [id number] US/US ELLIOTT AL RETROPERITONEAL COMP Exam Date: [...] COPY TO: GERSON ORTIZ Body Fluid Total Qmkmjpg9544-51-99 16:37:00* Test Item Value Reference Range Interpretation Comments Body Fluid Total Protein (test code = 2881-1) 1.7 [facility] McAllenBody Fluid Total Mcraapy8133-49-28 16:37:00* Test Item Value Reference Range Interpretation Comments Body Fluid Total Protein (test code = 2881-1) 1.7 [facility] McAllenBody Fluid Total Touqscr3766-26-12 16:37:00* Test Item Value Reference Range Interpretation Comments Body Fluid Total Protein (test code = 2881-1) 1.7 [facility] McAllenBody Fluid Total Iszvzbw5052-61-48 16:37:00* Test Item Value Reference Range Interpretation Comments Body Fluid Total Protein (test code = 2881-1) 1.7 [facility] McAllenBody Fluid Lactate Dehydrogenase 2018-06-19 16:30:00* Test Item Value Reference Range Interpretation Comments Body Fluid Lactate Dehydrogenase (test code = 267480964) 100 No reference range has been established for this specimen type.[facility]AllenBody Fluid Lactate Yqryevjddqaxi4174-84-67 16:30:00* Test Item Value Reference Range Interpretation Comments Body Fluid Lactate Dehydrogenase (test code = 272943898) 100 No reference range has been established for this specimen type.[facility] McAllenBody Fluid Lactate Xsodfznmcnsjb2968-77-53 16:30:00* Test Item Value Reference Range Interpretation Comments Body Fluid Lactate Dehydrogenase (test code = 208707279) 100 No reference range has been established for this specimen type.[facility]AllenBody Fluid Lactate Hgtqrqvegbggd9190-75-22 16:30:00* Test Item Value Reference Range Interpretation Comments Body Fluid Lactate Dehydrogenase (test code = 323076737) 100 No reference range has been established for this specimen type.[facility] McAllenCHEST XRAY POST QHERMMZWI7652-45-25 16:29:00 [place] [address] Patient Name: JOSHUA CACERES MR #: [id number] : 1960 Age/Sex: 57/M Req #: [id number] Adm Physician: DILLAN FAUSTIN MD Ordered by: TAMMI ANDERSON DO Report #: [id number] Location: MED/SURG Room/Bed: [facility] Procedure: [id number] DX/CHEST X RAY POST PROCEDURE Exam Date: Exam Time: REPORT STATUS: Signed PROCEDURE: CHEST XR AY POST PROCEDURE COMPARISON: [facility], DX, CHEST 2 VIEWS, 06/19, 6:29. INDICATIONS: [...] at 16:29 Dictated By: TAMMI ANDERSON DO 1629 COPY TO: DEVEN ANDERSON DO Body Fluid Oiihusb6070-71-10 16:26:00* Test Item Value Reference Range Interpretation Comments Body Fluid Glucose (test code = 2344-0) 120 [facility]AllenBody Fluid Cuhktuf1191-73-49 16:26:00* Test Item Value Reference Range Interpretation Comments Body Fluid Glucose (test code = 2344-0) 120 [facility]AllenBody Fluid Oipnwul8169-21-11 16:26:00* Test Item Value Reference Range Interpretation Comments Body Fluid Glucose (test code = 2344-0) 120 [facility] McAllenBody Fluid Nodgklr3866-43-72 16:26:00* Test Item Value Reference Range Interpretation Comments Body Fluid Glucose (test code = 2344-0) 120 [facility] McAllenCHEST 2 WCUFS0286-85-67 07:06:00 [facility] [address] [place] [address] Patient Name: JOSHUA CACERES MR #: [id number] : 1960 Age/Sex: 57/M Req #: [id number] Adm Physician: DILLAN FAUSTIN MD Ordered by: MESERET MORE MD Report #: [id number] Location: MED/SURG Room/Bed: [facility] Procedure: [id number] DX/CHEST 2 VIEWS Exam Date: 06/19/18 Exam [...] 06/19/18708 COPY TO: MESERET MORE MD Lactate Bnrarbphxexse2924-63-86 06:44:00* Test Item Value Reference Range Interpretation Comments Lactate Dehydrogenase (test code = 786993062) 226 125-220 H [facility] McAllenLapaate Uqvtqrfizpqvv4263-99-29 06:44:00 * Test Item Value Reference Range Interpretation Comments Lactate Dehydrogenase (test code = 448610576) 226 125-220 H [facility] McAllenLapaate Gzwuyladeljyb0951-86-66 06:44:00 * Test Item Value Reference Range Interpretation Comments Lactate Dehydrogenase (test code = 562963298) 226 125-220 H [facility] McAllenLabeaumont hospital Afjdxikvenmhc9281-56-31 06:44:00 * Test Item Value Reference Range Interpretation Comments Lactate Dehydrogenase (test code = 894081536) 226 125-220 H [facility] B Surface Antibody, Quant 2018-06-19 06:23:00* Test Item Value Reference Range Interpretation Comments Hepatitis B Surface Antibody, Quant (test code = 5194-6) <3.1 Immunity>9.9 L Status of Immunity Anti-HBs Level Inconsistent with Immunity 0.0 - 9.9Consistent with Immunity >9.9[facility] B Core Total Qcxuoevc7279-83-91 06:23:00* Test Item Value Reference Range Interpretation Comments Hepatitis B Core Total Antibody (test code = 74935-0) Negative Negative [facility] B Surface Ypxtplv0336-19-21 06:23:00* Test Item Value Reference Range Interpretation Comments Hepatitis B Surface Antigen (test code = 5196-1) Negative Negat aye [facility] B Core IgM Pdaeozmc0861-48-30 06:23:00* Test Item Value Reference Range Interpretation Comments Hepatitis B Core IgM Antibody (test code = 93157-6) Negative Ne gative Performed at: [address], [place] [id number] Director: Alec Javier MD, Phone: [phone] Texas Health System McAllenHepatibristol regional medical center B Surface Antibody, Efkpd1493-52-50 06:23:00* Test Item Value Reference Range Interpretation Comments Hepatitis B Surface Antibody, Quant (test code = 5194-6) <3.1 Immunity>9.9 L Status of Immunity Anti-HBs Level Inconsistent with Immunity 0.0 - 9.9Consistent with Immunity >9.9[facility] B Core Total Zkytmgqj1438-68-47 06:23:00* Test Item Value Reference Range Interpretation Comments Hepatitis B Core Total Antibody (test code = 43639-0) Negative Negative [facility] B Surface Suquprn4240-00-95 06:23:00* Test Item Value Reference Range Interpretation Comments Hepatitis B Surface Antigen (test code = 5196-1) Negative Negat aye [facility] B Core IgM Iyybnsfr9801-42-35 06:23:00* Test Item Value Reference Range Interpretation Comments Hepatitis B Core IgM Antibody (test code = 80068-6) Negative Ne gative Performed at: - [facility] [id number] Director: Alce Javier MD, Phone: [phone] [facility] Health [facility] McAllenCT CHEST [id number] 18:01:00 [place] [address] Patient Name: JOSHUA CACERES MR #: [id number] : 1960 Age/Sex: 57/M Req #: [id number] Adm Physician: DILLAN FAUSTIN MD Ordered by: DILLAN FAUSTIN MD Report #: [id number] Location: MED/SURG Room/Bed: [facility] Procedure: [id number] CT/CT CHEST W O Exam Date: Exam [...] Ferritin (test code = 2276-4) 38.90 21.81-274.66 [facility] 17:05:00* Test Item Value Reference Range Interpretation Comments Ferritin (test code = 2276-4) 38.90 21.81-274.66 [facility]-19 17:05:00* Test Item Value Reference Range Interpretation Comments Ferritin (test code = 2276-4) 38.90 21.81-274.66 [facility]-02-19 17:05:00* Test Item Value Reference Range Interpretation Comments Ferritin (test code = 2276-4) 38.90 21.81-274.66 [facility] Iquxq4713-07-91 16:52:00* Test Item Value Reference Range Interpretation Comments Iron Level (test code = 2498-4) 17 65-175 L [facility] Iron Binding Hjxllbye9063-21-35 16:52:00* Test Item Value Reference Range Interpretation Comments Total Iron Binding Capacity (test code = 2500-7) 309 261-4 78 [facility] Iron Yeyjoxyeqe9900-64-85 16:52:00* Test Item Value Reference Range Interpretation Comments Percent Iron Saturation (test code = 2502-3) 6 15-50 L [facility]AllenTransferrin2019-02-19 16:52:00* Test Item Value Reference Range Interpretation Comments Transferrin (test code = 3034-6) 221 174-364 [facility] ALE6535-17-04 14:38:00 [facility] [address] [place] [address] Patient Name: JOSHUA CACERES MR #: [id number] : 1960 Age/Sex: 57/M Req #: [id number] [facility] Physician: DILLAN FAUSTIN MD Ordered by: SHELLY HOOPER MD Report #: [id number] Location: MED/SURG Room/Bed: [facility] Procedure: [id number] IR/ SPECIAL PROCEDURE IN MONKEY TRAINER Exam Date: Exam Time: REPORT STATUS: Signed [...] MD 110 Transcribed By: LOREE on 06/20/18 1101 COPY TO: SHELLY HOOPER MD IR [id number] 14:38:00 [place] [address] Patient Name: JOSHUA CACERES MR #: [id number] : 1960 Age/Sex: 57/M Req #: [id number] Adm Physician: DILLAN FAUSTIN MD Ordered by: SHELLY HOOPER MD Report #: [id number] Location: MED/SURG Room/Bed: [facility] Procedure: [id number] DX/ IR CONSULT Exam Date: Exam Time: [...] anesthesia. Under continuous sonographic guidance, the right hospitality internship al jugular vein was accessed using [...] 2:40 PM Dictated By: LIZ OROZCO MD 1101 Transcribed By: LOREE on 06/20/181 COPY TO: SHELLY HOOPER MD Ionized Ncovttk9039-70-60 05:29:00* Test Item Value Reference Range Interpretation Comments Ionized Calcium (test code = 48943-8) 0.9 1.09-1.30 L [facility] Ozrusmj0789-37-36 05:29:00* Test Item Value Reference Range Interpretation Comments Ionized Calcium (test code = 25220-7) 0.9 1.09-1.30 L [facility]AllenIonized Vrarjdv2664-67-10 05:29:00* Test Item Value Reference Range Interpretation Comments Ionized Calcium (test code = 98781-9) 0.9 1.09-1.30 L [facility]AllenIonized Hlniytu8798-02-25 05:29:00* Test Item Value Reference Range Interpretation Comments Ionized Calcium (test code = 32459-2) 0.9 1.09-1.30 L [facility]-Type Natriuretic Pzubdxn0890-73-31 22:55:00* Test Item Value Reference Range Interpretation Comments B-Type Natriuretic Peptide (test code = 12062-9) > 5000.0 0-100 H [facility]AllenCreatine Kinase ZN0544-40-98 22:37:00* Test Item Value Reference Range Interpretation Comments Creatine Kinase MB (test code = 85704-1) 7.30 0-5.0 H [facility]AllenTroponin B9727-92-89 22:37:00* Test Item Value Reference Range Interpretation Comments Troponin I (test code = DLZ0438) 0.065 0-0.300 [facility]ine Tpbbyl2530-91-41 22:28:00* Test Item Value Reference Range Interpretation Comments Creatine Kinase (test code = 2157-6) 156 30-200 [facility]Allen[facility]ST SINGLE (PORTABLE)2018-06-17 20:40:00 [place] [address] Patient Name: JOSHUA CACERES MR #: [id number] : 1960 Age/Sex: 57/M Req #: [id number] Adm Physician: Ordered by: DANYELLE ALVAREZ DIRECTOR OF FIELD SERVICE Report #: [id number] Location: ER Room/Bed: Procedure: [id number] DX/SRIDEVI ST SINGLE (PORTABLE) Exam Date: 06/17/18 [...] LOREE on 06/17/182039 COPY TO: DANYELLE ALVAREZ DIRECTOR OF FIELD SERVICE Urine WFR5316-57-27 19:30:00* Test Item Value Reference Range Interpretation Comments Urine WBC (test code = 5821-4) NONE 0-5 [facility] ZRL8574-24-13 19:30:00* Test Item Value Reference Range Interpretation Comments Urine RBC (test code = 84775-3) 11-20 0-5 H [facility] Setzodkw4335-13-43 19:30:00* Test Item Value Reference Range Interpretation Comments Urine Bacteria (test code = 27625-1) MODERATE NONE H [facility] Epithelial Xhrnd3417-47-55 19:30:00 * Test Item Value Reference Range Interpretation Comments Urine Epithelial Cells (test code = 23722-3) MODERATE NONE [facility] Amorphous Khzsufpm5675-60-68 19:30:00* Test Item Value Reference Range Interpretation Comments Urine Amorphous Sediment (test code = 8246-1) MANY FEW H [facility] XUA4542-04-92 19:30:00* Test Item Value Reference Range Interpretation Comments Urine WBC (test code = 5821-4) NONE 0-5 [facility] HVM8154-34-37 19:30:00* Test Item Value Reference Range Interpretation Comments Urine RBC (test code = 22595-4) 11-20 0-5 H [facility] Lzazzxri0811-52-08 19:30:00* Test Item Value Reference Range Interpretation Comments Urine Bacteria (test code = 16135-1) MODERATE NONE [facility]helial Aneiv4679-24-77 19:30:00 * Test Item Value Reference Range Interpretation Comments Urine Epithelial Cells (test code = 92978-8) MODERATE NONE [facility] Amorphous Dcyserme2432-88-08 19:30:00* Test Item Value Reference Range Interpretation Comments Urine Amorphous Sediment (test code = 8246-1) MANY FEW [facility] Amorphous Ezaavape1176-89-77 19:30:00* Test Item Value Reference Range Interpretation Comments Urine Amorphous Sediment (test code = 8246-1) MANY FEW H [facility] Amorphous Fvvsjmbe2821-66-83 19:30:00* Test Item Value Reference Range Interpretation Comments Urine Amorphous Sediment (test code = 8246-1) MANY FEW [facility] Jzdob2068-04-78 19:12:00* Test Item Value Reference Range Interpretation Comments Urine Color (test code = 5778-6) YELLOW YELLOW [facility] Lepflgs1935-18-27 19:12:00* Test Item Value Reference Range Interpretation Comments Urine Clarity (test code = 28018-5) SL CLOUDY CLEAR [facility] Specific Qssjptn0391-82-08 19:12:00 * Test Item Value Reference Range Interpretation Comments Urine Specific Mora (test code = 5811-5) 1.025 1.010-1.02 5 [facility] yA9665-85-38 19:12:00* Test Item Value Reference Range Interpretation Comments Urine pH (test code = 15384-4) 5 5-7 [facility] Leukocyte Cgbtyomp1172-64-08 19:12:00* Test Item Value Reference Range Interpretation Comments Urine Leukocyte Esterase (test code = 5799-2) NEGATIVE NEGATIVE [facility] Tzjcnac3943-13-75 19:12:00* Test Item Value Reference Range Interpretation Comments Urine Nitrite (test code = 12892-5) NEGATIVE NEGATIVE [facility] Pylwxru1444-86-45 19:12:00* Test Item Value Reference Range Interpretation Comments Urine Protein (test code = 5804-0) 2+ NEGATIVE H [facility] Glucose (UA)2018-06-17 19:12:00* Test Item Value Reference Range Interpretation Comments Urine Glucose (UA) (test code = 2349-9) NEGATIVE NEGATIVE [facility] Kqcaomg4765-85-25 19:12:00* Test Item Value Reference Range Interpretation Comments Urine Ketones (test code = 95092-6) NEGATIVE NEGATIVE [facility] Ayqwrcxcumre0044-50-35 19:12:00* Test Item Value Reference Range Interpretation Comments Urine Urobilinogen (test code = 59635-3) 0.2 0.2-1 [facility] Mpgmevqpc4605-95-85 19:12:00* Test Item Value Reference Range Interpretation Comments Urine Bilirubin (test code = 1978-6) NEGATIVE NEGATIVE [facility] Pudmb1311-05-33 19:12:00* Test Item Value Reference Range Interpretation Comments Urine Blood (test code = 12325-7) 1+ NEGATIVE H [facility] Rjibs2813-13-91 19:12:00* Test Item Value Reference Range Interpretation Comments Urine Color (test code = 5778-6) YELLOW YELLOW [facility] Qbzosht4794-74-39 19:12:00* Test Item Value Reference Range Interpretation Comments Urine Clarity (test code = 93446-8) SL CLOUDY CLEAR H [facility] Specific Jyfcagn9566-41-93 19:12:00 * Test Item Value Reference Range Interpretation Comments Urine Specific Mora (test code = 5811-5) 1.025 1.010-1.02 5 [facility] gG1109-46-87 19:12:00* Test Item Value Reference Range Interpretation Comments Urine pH (test code = 47924-8) 5 5-7 [facility] Leukocyte Lnkbbutq8500-68-31 19:12:00* Test Item Value Reference Range Interpretation Comments Urine Leukocyte Esterase (test code = 5799-2) NEGATIVE NEGATIVE [facility] Jkxkvmq7544-91-96 19:12:00* Test Item Value Reference Range Interpretation Comments Urine Nitrite (test code = 51556-9) NEGATIVE NEGATIVE [facility] Pndgnuz3963-78-62 19:12:00* Test Item Value Reference Range Interpretation Comments Urine Protein (test code = 5804-0) 2+ NEGATIVE H [facility] Glucose (UA)2018-06-17 19:12:00* Test Item Value Reference Range Interpretation Comments Urine Glucose (UA) (test code = 2349-9) NEGATIVE NEGATIVE [facility] Fmcmrmb5641-79-36 19:12:00* Test Item Value Reference Range Interpretation Comments Urine Ketones (test code = 29146-7) NEGATIVE NEGATIVE [facility] Jsyqjjqjkyuc8651-44-17 19:12:00* Test Item Value Reference Range Interpretation Comments Urine Urobilinogen (test code = 08706-5) 0.2 0.2-1 [facility] Rziyfsuaf8833-28-08 19:12:00* Test Item Value Reference Range Interpretation Comments Urine Bilirubin (test code = 1978-6) NEGATIVE NEGATIVE [facility] Qluoc8704-20-66 19:12:00* Test Item Value Reference Range Interpretation Comments Urine Blood (test code = 96760-7) 1+ NEGATIVE H [facility]
[2019-09-29] MEDS ORDERED: SODIUM CHLORIDE 0.9% 1000ML 2,000 ML ONE (16:44)
--- NOTE | 2019-09-29 18:30 | Consultation ---
DATE OF CONSULTATION: 09/29/2019 HISTORY OF PRESENT ILLNESS: The patient is seen in the emergency room. A 58-year-old gentleman, who was recently discharged from [facility]. Apparently, he is being taken from [facility] to dialysis facility. He looked weak and did not look right to the EMS. They subsequently brought him here. He is quite weak, currently on oxygen, complaining of shortness of breath. No obvious dyspnea noted. He is oriented x3. States he is hungry, but denies shortness of breath or nausea. Denies any fever and chills. He looks quite ill. LABORATORY DATA: Show white count 9.8 and hemoglobin 10.1. Chemistry show hyperkalemia, potassium 6.4, bicarbonate 21, creatinine approximately 8, BNP of more than 5000. Chest x-ray, please see official report, shows small right greater than left-sided pleural effusion, unchanged right basilar opacities. Please see official report. ALLERGIES: THE PATIENT HAS NO DRUG ALLERGIES. HOME MEDICATIONS: Have not been reconciled yet. He has been given some calcium gluconate and immediate treatment for hyperkalemia has been ordered by ER physician. SOCIAL HISTORY: The patient is . Does not smoke or drink. PAST MEDICAL HISTORY: Diabetes, history of pleural effusion, pneumonia, status post video-assisted thoracostomy, had a chest tube placed for a protracted period of time, underlying anemia, sepsis, failure to thrive, fluid overload during his most recent admission at [place]. He was just discharged last week. We challenged his dry weight quite aggressively and was successful in that. Underlying history of hypertension, anemia. PHYSICAL EXAMINATION: GENERAL: Awake, alert, oriented, sitting up in no apparent distress. Currently on oxygen, appears short of breath though, but tachypneic. No dyspnea though. VITAL SIGNS: Blood pressure is 188/71, pulse rate 80, afebrile, respiratory rate 27, and oxygen saturation 100%. HEAD AND NECK: Cornea clear. Oral mucosa moist. Neck veins are distended. LUNGS: Harsh vesicular breath sounds with scattered rales at the bases. Decreased air entry right base. HEART: S1 and S2 audible. ABDOMEN: Otherwise soft and nontender. No apparent visceromegaly. EXTREMITIES: Lower extremity examination shows no edema. IMPRESSION AND PLAN: 1. Hyperkalemia, end-stage renal disease, fluid overload. 2. Failure to thrive, failing health, multiple comorbidities, extremely poor prognosis. Agree with DrCaleb for immediate treatment for hyperkalemia plan on stat urgent dialysis, placement on a renal diet, fluid restriction. Please see orders. MD MICAH Graff/MODL /[id number]
--- NOTE | 2019-09-29 23:12 | NUR ---
T/O FROM DR. Amrit VAIL. HYDRALAZINE 5MG IVP NOW X1 AND CONTINUE USP MEDICATIONS. NOTED IN PT CHART
[2019-09-29] MEDS ORDERED: HYDRALAZINE HCL 20 MG/ML VIAL IV ONE (23:15)
[2019-09-30] VITALS (9 sets, daily range): BP systolic 140–189; BP diastolic 65–86
[2019-09-30] MEDS ORDERED: TRAMADOL HCL 50 MG TAB PO PRN (02:15)
[2019-09-30] MEDS: CLONIDINE HCL 0.1 MG TAB PO SCH ×4 (03:41→21:44)
--- NOTE | 2019-09-30 05:00 | NUR ---
Patient received via stretcher from ER. AAO x 3. Patient had no complaints of pain. Respirations even and non-labored on 2L NC. Admission history obtained from patient and medical record. Initial physical assessment performed. Patient oriented to room, call light and plan of care. Safety measures implemented. Patient instructed to call for assistance when needed. Call light within reach.
[2019-09-30] MEDS: NIFEDIPINE CR 30 MG TAB PO SCH ×2 (05:54→17:37)
--- NOTE | 2019-09-30 07:00 | NUR ---
Patient resting comfortably. Walking rounds done. Bed-side report given to oncoming nurse.
[2019-09-30] MEDS: LIDOCAINE 4% TOP SCH (09:00)
[2019-09-30] MEDS: METOPROLOL SUCCINATE 50 MG TAB XL PO SCH (09:02)
[2019-09-30] MEDS: LOSARTAN POTASSIUM 100 MG TAB PO SCH (09:02)
--- NOTE | 2019-09-30 12:02 | NUR ---
GOT PERMISSION TO RETURN PT TO [facility] FAXED CLINICALS
--- NOTE | 2019-09-30 12:25 | NUR ---
WAS TOLD THAT DR LAMAS WANTS TO KEEP THE PT TO DO DIALYSIS INSTEAD OF LETTING HIM GO BACK TO HIS REGULAR APPOINT THAT IS SCHEDULED FOR TOMORROW, LET DR VAIL AND CM KNOW AND ESCALATED TO MED DIRECTOR.
--- NOTE | 2019-09-30 12:28 | NUR ---
I ADVISED NURSE TO GET ANOTHER POTASSIUM LEVEL ORDERED FOR TODAY SO WE CAN KNOW THE CURRENT VALUE.
--- NOTE | 2019-09-30 13:04 | NUR ---
SNF FACILITY DISCHARGE INFORMATION PATIENT HAS BEEN ACCEPTED TO: NAME: [facility] ADDRESS: [id number] [facility] ACCEPTING [employer] MANAGER:LUCAS MYERS MD: GENNA ROOM: 114 NURSE CALL REPORT TO: [phone] IMM SIGNED AND OBTAINED (if applicable): SAMUEL THE FOLLOWING DOCUMENTS MUST ACCOMPANY PATIENT FOR TRANSFER: COPIED CHART: PACKET AT NURSES STATION
--- NOTE | 2019-09-30 13:04 | NUR ---
PER DR VAIL, PT WILL DISCHARGE AFTER DIALYSIS IN MORNING BACK TO [facility]
[2019-09-30] MEDS: MEGACE 400MG/ 10ML CUP PO SCH ×2 (13:28→14:03)
--- NOTE | 2019-09-30 14:20 | NUR ---
Called Kari linares about patient's scheduled HD today. Addendum: 09/30/19 at 1626 by Jannette Perry RN HD scheduled tomorrow 10/01/19, not today.
[2019-09-30 15:38] LABS: ANION GAP 17.8 mmol/L (8-16); CALCIUM 9.5 mg/dL (8.4-10.2)
[2019-09-30 15:48] LABS: POTASSIUM 5.8 mmol/L (3.5-5.1)
--- NOTE | 2019-09-30 18:01 | NUR ---
Nutrition Screen Note RD Recommendation for Physician: - Consider Renal diet restrictions Plan of Care: RD following, monitoring for tolerance and adequacy Nutrition reason for involvement: Nutrition Risk Trigger, DX Primary Diagnose(s): ESrD, pulmonary edema, volume overload PMH: DM, failure to thrive, anemia Ht: 63 in Wt: 118 lb BMI: 20.9 kg/m2 IBW: [address] Assessment: (09/29) 58 YOM admitted for ESRD, pulmonary edema, and volume overload. Pt evaluated today per MST screen, known from prior admits. Pt with good po intake, noted 75% of meals per chart. No wt loss noted. Pt pending discharge to SNF. Chart reviewed. Labs and meds reviewed. Will continue to monitor. Current Diet: Cardiac Malnutrition Evaluation (09/30/19) The patient does not meet criteria for a specified degree of malnutrition at this time. Will re-evaluate at follow-up as appropriate. Diet Education Needs Assessment: Diet education not indicated. Diet tolerance: tolerating po Nutrition Care Level: low Signed: Nancy Tellez RD, LD, [facility]
--- NOTE | 2019-09-30 19:13 | NUR ---
Report given to shift engineer. Respiration even and unlabored. Awake and alert. Call light in reach.
--- NOTE | 2019-09-30 19:16 | NUR ---
Patient received lying in bed. AAO x 3. No acute distress noted. Patient assisted to a more comfortable position. Safety measures in place. Call light within reach.
--- NOTE | 2019-09-30 20:00 | NUR ---
Dr. Amrit Lockhart called to obtain sliding scale (Blood glucose) for patient and notify him of potassium level of 5.8. Per MD, patient 's BS drops rapidly, so no BS sliding scale at this time. Also, MD is aware of potassium level and stated patient is having dialysis tomorrow.
[2019-09-30] MEDS ORDERED: TIZANIDINE HCL 4 MG TAB PO SCH (21:00)
[2019-10-01] MEDS: NIFEDIPINE CR 30 MG TAB PO SCH ×2 (02:15→14:24)
[2019-10-01 04:53] VITALS: BP 152/71
[2019-10-01 05:46] LABS: ALBUMIN 2.9 g/dL (3.5-5.0); ALBUMIN/GLOBULIN RATIO 0.5 (0.8-2.0); ANION GAP 24.2 mmol/L (8-16); CALCIUM 9.4 mg/dL (8.4-10.2); CREATININE, SERUM 6.57 mg/dL (0.72-1.25)
[2019-10-01 05:50] LABS: POTASSIUM 6.2 mmol/L (3.5-5.1)
--- NOTE | 2019-10-01 06:05 | NUR ---
flight readiness technician called regarding critical potassium results--6.2. Dr. Amrit Lockhart paged. Awaiting call back.
[2019-10-01] MEDS ORDERED: SODIUM CHLORIDE 0.9% 1000ML 2,000 ML ONE (07:30)
--- NOTE | 2019-10-01 08:02 | NUR ---
ASSUMED CARE. AAOX3. ACYANOTIC. NO DISTRESS NOTED. RESTING IN HIGH TSE'S POSITION. DIALYSIS NURSE AT BEDSIDE TO INITIATE DIALYSIS TREATMENT.
[2019-10-01 08:05] VITALS: BP 157/60
[2019-10-01 08:56] VITALS: BP 157/60
[2019-10-01] MEDS: METOPROLOL SUCCINATE 50 MG TAB XL PO SCH (09:00)
[2019-10-01] MEDS: LIDOCAINE 4% TOP SCH (09:00)
[2019-10-01] MEDS: LOSARTAN POTASSIUM 100 MG TAB PO SCH (09:00)
[2019-10-01] MEDS: CLONIDINE HCL 0.1 MG TAB PO SCH ×2 (09:00→14:24)
[2019-10-01] MEDS: MEGACE 400MG/ 10ML CUP PO SCH (09:08)
--- NOTE | 2019-10-01 09:11 | NUR ---
BLOOD PRESSURE MEDICATIONS HELD DUE TO CURRENT ONGOING DIALYSIS [place].
[2019-10-01 11:47] VITALS: BP 120/75
--- NOTE | 2019-10-01 12:13 | NUR ---
FAXED [address] NOTE TO UPDATE CLINICALS TO FACILITY
--- NOTE | 2019-10-01 14:19 | NUR ---
REPORT CALLED TO SANDRA DEUTSCH LPN AT [facility] AT APPROXIMATELY 0204
[2019-10-01 15:37] VITALS: BP 176/76
== END 2019-10-01 17:13 ==
LOC: ER 10:46 → ERHOLD 13:06 → INTOOBSV 13:06 → MED/SURG2 09-30 04:41
DX: E87.70 Fluid overload, unspecified (principal); I12.0 Hypertensive chronic kidney disease with stage 5 chronic kidney disease or end stage renal disease; N18.6 End stage renal disease; Z99.2 Dependence on renal dialysis; D63.1 Anemia in chronic kidney disease; E11.22 Type 2 diabetes mellitus with diabetic chronic kidney disease; R64 Cachexia; Z68.20 Body mass index [BMI] 20.0-20.9, adult; I25.10 Atherosclerotic heart disease of native coronary artery without angina pectoris; R62.7 Adult failure to thrive
CPT/HCPCS: 36415 ×3; 71045; 80048; 80053 ×2; 82550; 82553; 82948 ×2; 83880; 84484; 85025; 87635; 90935; 99251; 99284; G0378 ×3; J0360; J0610; J7030 ×2

== ENCOUNTER 2020-01-23 11:09 | Inpatient (IN) | payer MEDICARE, OTHER ==
[~2020-01-23] VITALS: Ht 160 cm; Wt 53.5 kg
[2020-01-23] MEDS ORDERED: HYDRALAZINE HCL 20 MG/ML VIAL IV STA ×2 (11:32→16:48)
--- NOTE | 2020-01-23 12:41 | Diagnostic Imaging Report ---
TECHNIQUE: Frontal view of the chest. INDICATION: ^SOB COMPARISON: 09/29/2019 DISCUSSION: Limited evaluation due to portable technique. Lines and hardware: Overlying EKG leads are noted Heart and mediastinum: Cardiomediastinal silhouette is enlarged. Stable central vascular congestion. Lungs and pleura: Similar to prior exam there are bilateral basilar patchy airspace opacities, somewhat increased at the left lung base. There is blunting of the right costophrenic angle. Negative for large pneumothorax. Negative for mediastinal shift. Soft tissues and bones: No acute abnormality. IMPRESSION: New patchy airspace opacities at the left lung base a concerning for developing pneumonia. Stable chronic patchy opacities and blunting of the right costophrenic angle at the right lung base probably relates to scarring. Signed by: Edward Diggs MD on 01/23/2020 12:38 PM
[2020-01-23 13:18] LABS: BASOPHILS # (AUTO) 0.1 (0.0-0.1); BASOPHILS % 0.8 % (0.0-1.0); EOSINOPHILS # (AUTO) 0.6 (0.0-0.4); EOSINOPHILS % 4.7 % (0.0-6.0); HEMATOCRIT 28.1 % (38.2-49.6); HEMOGLOBIN 8.4 g/dL (14.0-18.0); LYMPHOCYTES # (AUTO) 1.1 (1.0-3.2); LYMPHOCYTES % 9.2 % (18.0-39.1); MEAN CORPUSCULAR HGB CONC 29.9 g/dL (31-35); MEAN CORPUSCULAR VOLUME 100.4 fL (81-99); MONOCYTES # (AUTO) 0.9 (0.2-0.8); MONOCYTES % 7.6 % (4.4-11.3); NEUTROPHILS % 76.8 % (38.7-80.0); PLATELET COUNT 192 x10e3/uL (140-360); RED CELL DISTRIBUTION WIDTH 15.4 % (11.7-14.4)
[2020-01-23 13:26] LABS: INR 1.03
[2020-01-23 13:27] LABS: PARTIAL THROMBOPLASTIN TIME 32.9 seconds (23.8-35.5)
[2020-01-23 13:35] LABS: ALBUMIN 3.6 g/dL (3.5-5.0); ALBUMIN/GLOBULIN RATIO 0.9 (0.8-2.0); CREATININE, SERUM 5.54 mg/dL (0.72-1.25)
[2020-01-23 13:42] LABS: CREATINE KINASE MB 3.5 ng/mL (0-5.0)
[2020-01-23] MEDS ORDERED: CEFTRIAXONE SOD 1 GM/NS 50 ML 50 ML IV SCH (14:00)
[2020-01-23] MEDS ORDERED: SODIUM CHLORIDE 0.9% 1000ML 2,000 ML ONE (14:11)
[2020-01-23] MEDS ORDERED: AZITHROMYCIN 500MG/NS 250 ML 250 ML IV SCH (15:00)
--- NOTE | 2020-01-23 15:40 | Emergency Department Note ---
History of Present Illnes History of Present Illness Chief Complaint: General Medicine Complaints History of Present Illness This is a 59 year old male 59 y/o male presents to ED via EMS for c/o for HTN and SOB, pt tachypneic and hypertensive upon arrival, pt was on the way to dialysis then pt requested to go to ER so EMS did not take pt to dialysis but came to ED per pt request. Pt has diminished BS, pt hypertensive. Reports he was taken off clonidine patch a few weeks ago. 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 Any updates have been documented here. Past Medical History Recent Fever: No Clinical Suspicion of Infectio: No New/Unexplained Change in Ment: No Past Medical History: Hypertension, Diabetes, ESRD Other Medical History: PLEURAL EFFUSION ANEMIA ESRD SOB Past Surgical History: None Other Surgery: Left arm fistula DECORTICATION Social History Smoking Cessation: Former smoker Counseling Performed: No Alcohol Use: None Any Illegal Drug Use: No TB Exposure/Symptoms: No Physically hurt or threatened: No Family History Family history of heart diseas: No Other Last Tetanus: UNKNOWN Any Pre-Existing Lines (PICC,: No Review of Systems Review of Systems Constitutional: Reports no symptoms EENTM: Reports no symptoms Cardiovascular: Reports no symptoms Respiratory: Reports as per HPI, Reports dyspnea, Reports dyspnea on exertion Gastrointestinal: Reports no symptoms Genitourinary: Reports no symptoms Musculoskeletal: Reports no symptoms Integumentary: Reports no symptoms Neurological: Reports no symptoms Psychological: Reports no symptoms Endocrine: Reports no symptoms Hematological/Lymphatic: Reports no symptoms Physical Exam Related Data Allergies: Coded Allergies: No Known Allergies (Unverified , 08/18/19) Triage Vital Signs Vital Signs Date Time Temp Pulse Resp B/P (MAP) Pulse Ox O2 Delivery O2 Flow Rate FiO2 01/23/20 11:18 98.4 72 34 207/75 100 Nasal Cannula 01/23/20 13:53 3.0 Vital signs reviewed: Yes Physical Exam CONSTITUTIONAL Constitutional: Present well-developed, Present well-nourished HENT HENT: Present normocephalic, Present atraumatic, Present oropharynx clear/moist, Present nose normal HENT L/R: Present left ext ear normal, Present right ext ear normal EYES Eyes: Reports PERRL, Reports conjunctivae normal NECK Neck: Present ROM normal PULMONARY Pulmonary: Present respiratory distress (MILD TACHYPNEA), Present rales (BIB ASILAR ), Present rhonchi (LEFT BASE) CARDIOVASCULAR Cardiovascular: Present regular rhythm, Present heart sounds normal, Present capillary refill normal, Present normal rate, Present murmur (2/6 SYS) GASTROINTESTINAL Abdominal: Present soft, Present nontender, Present bowel sounds normal GENITOURINARY Genitourinary: Present exam deferred SKIN Skin: Present warm, Present dry MUSCULOSKELETAL Musculoskeletal: Present ROM normal NEUROLOGICAL Neurological: Present alert, Present oriented x 3, Present no gross motor or sensory deficits PSYCHOLOGICAL Psychological: Present mood/affect normal, Present judgement normal Results Laboratory Result Diagram: 01/23/20 1230 01/23/20 1230 Laboratory Laboratory Tests Test 01/23/20 14:40 01/23/20 12:42 01/23/20 12:30 White Blood Count 11.71 x10e3/uL (4.8-10.8) Red Blood Count 2.80 x10e6/uL (4.3-5.7) Hemoglobin 8.4 g/dL (14.0-18.0) Hematocrit 28.1 % (38.2-49.6) Mean Corpuscular Volume 100.4 fL (81-99) Mean Corpuscular Hemoglobin 30.0 pg (28-32) Mean Corpuscular Hemoglobin Concent 29.9 g/dL (31-35) Red Cell Distribution Width 15.4 % (11.7-14.4) Platelet Count 192 x10e3/uL (140-360) Neutrophils (%) (Auto) 76.8 % (38.7-80.0) Lymphocytes (%) (Auto) 9.2 % (18.0-39.1) Monocytes (%) (Auto) 7.6 % (4.4-11.3) Eosinophils (%) (Auto) 4.7 % (0.0-6.0) Basophils (%) (Auto) 0.8 % (0.0-1.0) Neutrophils # (Auto) 9.0 (2.1-6.9) Lymphocytes # (Auto) 1.1 (1.0-3.2) Monocytes # (Auto) 0.9 (0.2-0.8) Eosinophils # (Auto) 0.6 (0.0-0.4) Basophils # (Auto) 0.1 (0.0-0.1) Absolute Immature Granulocyte (auto 0.11 x10e3/uL (0-0.1) Prothrombin Time 14.0 seconds (11.9-14.5) Prothromb Time International Ratio 1.03 Activated Partial Thromboplast Time 32.9 seconds (23.8-35.5) Sodium Level 140 mmol/L (136-145) Potassium Level 5.0 mmol/L (3.5-5.1) Chloride Level 100 mmol/L (98-107) Carbon Dioxide Level 23 mmol/L (22-29) Anion Gap 22.0 mmol/L (8-16) Blood Urea Nitrogen 54 mg/dL (7-26) Creatinine 5.54 mg/dL (0.72-1.25) Estimat Glomerular Filtration Rate 11 ML/MIN (60-) BUN/Creatinine Ratio 10 (6-25) Glucose Level 181 mg/dL (74-118) Calcium Level 9.0 mg/dL (8.4-10.2) Total Bilirubin 0.5 mg/dL (0.2-1.2) Aspartate Amino Transf (AST/SGOT) 15 IU/L (5-34) Alanine Aminotransferase (ALT/SGPT) 9 IU/L (0-55) Alkaline Phosphatase 132 IU/L (40-150) Creatine Kinase 40 IU/L (30-200) Creatine Kinase MB 3.50 ng/mL (0-5.0) Troponin I 0.088 ng/mL (0-0.300) B-Type Natriuretic Peptide 17860.9 pg/mL (0-100) Total Protein 7.6 g/dL (6.5-8.1) Albumin 3.6 g/dL (3.5-5.0) Globulin 4.0 g/dL (2.3-3.5) Albumin/Globulin Ratio 0.9 (0.8-2.0) Lab results reviewed: Yes Imaging Imaging results reviewed: Yes Impressions TECHNIQUE: Frontal view of the chest. INDICATION: ^SOB COMPARISON: 09/29/2019 DISCUSSION: Limited evaluation due to portable technique. Lines and hardware: Overlying EKG leads are noted Heart and mediastinum: Cardiomediastinal silhouette is enlarged. Stable central vascular congestion. Lungs and pleura: Similar to prior exam there are bilateral basilar patchy airspace opacities, somewhat increased at the left lung base. There is blunting of the right costophrenic angle. Negative for large pneumothorax. Negative for mediastinal shift. Soft tissues and bones: No acute abnormality. IMPRESSION: New patchy airspace opacities at the left lung base a concerning for developing pneumonia. Stable chronic patchy opacities and blunting of the right costophrenic angle at the right lung base probably relates to scarring. Signed by: Edward Diggs MD on 01/23/2020 12:38 PM Procedures 12 Lead ECG Interpretation ECG Interpretation : ECG: ECG 1 Aids Counselor: Interpreted by ED physician Date: Jan 23, 2020 Time: 11:04 Rhythm: sinus rhythm (OCCAS PVC'S) Rate: normal (69) QRS axis: normal ST segments normal: Yes T wave inversion: I, II, III, aVL, aVF Clinical Impression: abnormal ECG Assessment & Plan Medical Decision Making MDM ESRD ON THE WAY TO HD AND HAD AMBULANCE DIVERT HERE DUE TO SOB, BP ELEVATED - CHECK CBC, CHEM, CARDIACS, ECG, CXR, COVID SWAB - R/O PNEUMONIA, COVID19, CHF, VOLUME OVERLOAD, HYPERKALEMIA, STEMI/NSTEMI Reassessment Reassessment ADMIT TO [facility], CONSULT TO [facility] FOR HD Assessment & Plan Final Impression: (1) ESRD (end stage renal disease) on dialysis (2) Volume overload (3) Pneumonia Depart Disposition: ADMITTED Last Vital Signs Date Time Temp Pulse Resp B/P (MAP) Pulse Ox O2 Delivery O2 Flow Rate FiO2 01/23/20 13:53 74 18 193/84 100 Nasal Cannula 3.0 01/23/20 11:18 98.4 Home Meds Reported Medications Tramadol Hcl* (ULTRAM 50MG*) 50 Mg Tab, 50 MG PO Q8H PRN for MODERATE PAIN (4- 6), TAB 08/12/19 Tizanidine Hcl (TIZANIDINE HCL) 4 Mg Tablet, 4 MG PO HS, TAB 08/12/19 Nifedipine (PROCARDIA XL) 30 Mg Tab.er.24, 30 MG PO Q12H, #30 TAB 08/12/19 Metoprolol Succinate (METOPROLOL SUCCINATE) 50 Mg Tab.er.24h, 50 MG PO DAILY, MG 08/12/19 Megestrol Acetate (MEGESTROL ACETATE) 400 Mg/10 Ml Oral.susp, 400 MG PO DAILY, EA 08/12/19 Losartan Potassium (LOSARTAN POTASSIUM) 100 Mg Tablet, 100 MG PO DAILY, TAB 08/12/19 [Lidocaine Patch] No Conflict Check, 4 % TOP DAILY 08/12/19 Clonidine Hcl (CLONIDINE HCL) 0.1 Mg Tablet, 1 TAB PO TID, #60 TAB 08/12/19 Acetaminophen With Codeine (TYLENOL WITH CODEINE #3 TABLET) 1 Each Tablet, 300 MG PO Q6H PRN for MODERATE PAIN (4-6), TAB 08/12/19 Medications in the ED Hydralazine HCl 10 mg NOW STAT IV Last administered on 01/23/20at 12:23; Admin Dose 10 MG; Start 01/23/20 at 11:32; Stop 01/23/20 at 11:41; Status DC Ceftriaxone Sodium 50 ml @ 100 mls/hr Q24H IV ; Start 01/23/20 at 14:00; Stop 01/30/20 at 13:59 NIURKA FRIEND MD Jan 23, 2020 15:39
[2020-01-23] MEDS: HYDRALAZINE HCL 25 MG TAB PO SCH ×4 (16:33→21:00)
[2020-01-23] MEDS: HYDRALAZINE HCL 20 MG/ML VIAL IV PRN ×2 (16:33→16:42)
--- NOTE | 2020-01-23 16:49 | NUR ---
Telephone order per Dr. Gerson Rivas, given 20 mg Hydralazine IV stat now x1 dose for hypertension. Order placed, and med given.
--- NOTE | 2020-01-23 18:29 | NUR ---
Attempted to call report to floor, unable to give report at this time.
[2020-01-23] MEDS ORDERED: NALOXONE HCL 2MG/2 ML SYRINGE ONE (18:33)
--- NOTE | 2020-01-23 19:01 | NUR ---
Dialysis completed, 4.5 liters removed by security operations engineer.
[2020-01-23] MEDS: ALBUTEROL SULF 0.083% NEB SOLN 3 ML NEB NEB SCH ×3 (19:05→23:50)
[2020-01-23] MEDS ORDERED: LORAZEPAM 1 MG TAB PO PRN (20:45)
[2020-01-23] MEDS: NIFEDIPINE CR 30 MG TAB PO SCH (21:00)
[2020-01-23 21:06] LABS: CREATINE KINASE MB 3.9 ng/mL (0-5.0)
--- NOTE | 2020-01-23 21:09 | Diagnostic Imaging Report ---
EXAMINATION: CHEST SINGLE (PORTABLE) INDICATION: Shortness of breath. COMPARISON: Multiple chest x-rays including most recent same day. FINDINGS: TUBES and LINES: None. LUNGS: Normal lung volumes. Prominent interstitial lung markings and bibasilar haziness. PLEURA: Small right pleural effusion and/or scarring. No pneumothorax. HEART AND MEDIASTINUM: The cardiomediastinal silhouette is enlarged. BONES AND SOFT TISSUES: No acute osseous lesion. Soft tissues are unremarkable. UPPER ABDOMEN: No free air under the diaphragm. IMPRESSION: 1. Cardiomegaly with interstitial pulmonary edema. 2. No interval change in bibasilar haziness which may represent superimposed atelectasis and/or developing multifocal pneumonia. 3. Small right pleural effusion and/or scarring Signed by: Charis Rice MD on 01/23/2020 9:06 PM
--- NOTE | 2020-01-23 21:26 | Consultation ---
DATE OF CONSULTATION: 01/23/2020 HISTORY OF PRESENT ILLNESS: A 59-year-old gentleman known to our Nephrology Service, underlying history of diabetes, chronic lung issues, congestive heart failure, noncompliance to fluid and salt restriction, and history of difficult to control hypertension, who has been having progressive failure to thrive, failing health, in a very precarious state, he presents to the emergency room, read out it from the dialysis unit with shortness of breath, worse since the last two days. He is awake and alert, though, states he feels bad. Denies any chest pain. Admits to cough. Denies phlegm. Denies fever. However, his white count is 11.7 with a hemoglobin 8.5. Potassium was 5, bicarb 23, and creatinine 5.5, calcium 9. His chest x-ray, please see official report, shows new patchy airspace opacities in left lung base, concern for developing pneumonia, chronic stable patchy opacities, blunting of right costophrenic angle. The patient has had numerous hospital admissions both here and at [facility], has had prior video-assisted thoracotomy, pleural effusion, pneumonia and thoracentesis. SOCIAL HISTORY: The patient is . Does not smoke or drink. FAMILY HISTORY: Significant for hypertension. ALLERGIES: NO APPARENT DRUG ALLERGIES. CURRENT MEDICATIONS: The patient is started on azithromycin, ceftriaxone, was given one time dose of hydralazine. PHYSICAL EXAMINATION: GENERAL: On exam, he is awake, alert, and oriented x3, lying supine, appears ill, [id number] respiratory distress. VITAL SIGNS: With a blood pressure 190/75, pulse rate 80, afebrile. HEAD AND NECK: Cornea clear. Neck veins distended. LUNGS: Bibasilar rales. HEART: S1, S2 audible. ABDOMEN: Otherwise soft, nontender. EXTREMITIES: Lower extremity examination . IMPRESSION: Accelerated hypertension, hypertensive heart failure, and possible pneumonia. PLAN: To titrate his blood pressure medications. Resume hydralazine. Resume Procardia. Resume lisinopril. We will place on hydralazine p.r.n. arrange for stat dialysis. Overall prognosis extremely poor. Underlying hyperkalemia. Place on a renal diet, potassium restriction. MD MICAH Graff/BRIT /[id number]
--- NOTE | 2020-01-23 21:42 | Consultation ---
DATE OF CONSULTATION: 01/23/2020 Dialysis Note SUBJECTIVE: The patient is seen in dialysis emergency room. OBJECTIVE: VITAL SIGNS: Blood pressure 175/95, pulse rate 80, afebrile, and respiratory rate 20. HEAD AND NECK: Cornea clear. Oral mucosa moist. Neck veins distended. LUNGS: Bibasilar rales. HEART: S1 and S2 audible. ABDOMEN: Soft and nontender. EXTREMITIES: Lower extremity, no edema. IMPRESSION AND PLAN: Accelerated hypertension, hypertensive heart failure, end-stage renal disease, borderline hyperkalemia, hemodialysis. Sodium 140, potassium 2, bicarb 35, and calcium 2.5. Blood flow 400, dialysate 800. UF 4-5 L or more as tolerated. Systolic blood pressure limit 100 or more. MD MICAH Graff/BRIT /[id number]
[2020-01-24] VITALS (7 sets, daily range): BP systolic 109–189; BP diastolic 71–85
--- NOTE | 2020-01-24 00:10 | NUR ---
Received pt from ER via stretcher. Pt alert, awake, and oriented x 3. Denies any pain or discomfort. Vitals stable. Oxygen saturation 98% on 3L via NC. Pt refuses ordered blood pressure medications. Pt states his BP will drop too low if he takes them after dialysis. No needs at this time. Call light within reach. Will continue to monitor.
[2020-01-24] MEDS: CEFTRIAXONE SOD 1 GM/NS 50 ML 50 ML IV SCH ×2 (01:08→22:12)
[2020-01-24] MEDS: AZITHROMYCIN 500MG/NS 250 ML 250 ML IV SCH ×2 (01:40→22:33)
[2020-01-24] MEDS ORDERED: COLACE100 MG PO (02:38)
[2020-01-24] MEDS ORDERED: MIRALAX17 GM PO (02:38)
[2020-01-24] MEDS ORDERED: GABAPENTIN100 MG PO (02:38)
[2020-01-24] MEDS ORDERED: HYDRALAZINE HCL25 MG PO (02:38)
[2020-01-24] MEDS ORDERED: NIFEDIPINE ER30 M1 PO (02:38)
[2020-01-24] MEDS ORDERED: BASAGLAR K100 UNIT/1 SQ (02:38)
[2020-01-24] MEDS ORDERED: RENAGEL800 MG PO (02:38)
[2020-01-24] MEDS ORDERED: ZOFRAN4 MG PO (02:38)
[2020-01-24] MEDS ORDERED: LACTULOSE20 GM/30 M PO (02:38)
[2020-01-24] MEDS ORDERED: NOVOLIN R100 UNIT/1 (02:39)
[2020-01-24] MEDS ORDERED: ALBUTEROL SULF 0.083% NEB SOLN 3 ML NEB NEB ONE (03:45)
[2020-01-24] MEDS: ALBUTEROL SULF 0.083% NEB SOLN 3 ML NEB NEB SCH ×6 (03:55→22:50)
[2020-01-24 06:54] LABS: BASOPHILS # (AUTO) 0.1 (0.0-0.1); BASOPHILS % 0.8 % (0.0-1.0); EOSINOPHILS # (AUTO) 0.2 (0.0-0.4); EOSINOPHILS % 2.6 % (0.0-6.0); HEMATOCRIT 29.1 % (38.2-49.6); HEMOGLOBIN 8.9 g/dL (14.0-18.0); LYMPHOCYTES # (AUTO) 0.9 (1.0-3.2); LYMPHOCYTES % 9.4 % (18.0-39.1); MEAN CORPUSCULAR HGB CONC 30.6 g/dL (31-35); MEAN CORPUSCULAR VOLUME 101.4 fL (81-99); MONOCYTES # (AUTO) 0.8 (0.2-0.8); MONOCYTES % 8.8 % (4.4-11.3); NEUTROPHILS # (AUTO) 7.2 (2.1-6.9); NEUTROPHILS % 77.9 % (38.7-80.0); PLATELET COUNT 161 x10e3/uL (140-360); RED BLOOD COUNT 2.87 x10e6/uL (4.3-5.7); RED CELL DISTRIBUTION WIDTH 15.6 % (11.7-14.4)
[2020-01-24 07:21] LABS: CREATINE KINASE MB 2.3 ng/mL (0-5.0)
[2020-01-24 07:28] LABS: ALBUMIN 3.6 g/dL (3.5-5.0); ANION GAP 17.8 mmol/L (8-16); CALCIUM 9.1 mg/dL (8.4-10.2); CREATININE, SERUM 3.81 mg/dL (0.72-1.25); POTASSIUM 4.8 mmol/L (3.5-5.1)
[2020-01-24] MEDS: HYDRALAZINE HCL 25 MG TAB PO SCH ×3 (08:59→22:13)
[2020-01-24] MEDS: LISINOPRIL 20 MG TAB PO SCH (08:59)
[2020-01-24] MEDS: NIFEDIPINE CR 30 MG TAB PO SCH ×2 (09:00→22:13)
[2020-01-24] MEDS ORDERED: ACETAMINOPHEN/CODEINE 300MG - 30MG TAB PO PRN (09:30)
[2020-01-24] MEDS ORDERED: LACTULOSE SYRUP 20 GM/30 ML UDC PO PRN (09:30)
[2020-01-24] MEDS ORDERED: ONDANSETRON HCL INJ 2MG/ML 2ML 2 MG/ML VIAL IV PRN (09:30)
[2020-01-24 09:38] LABS: PLATELET ESTIMATE MODERATELY DECREASED; PLATELET MORPHOLOGY COMMENT NORMAL
[2020-01-24] MEDS ORDERED: EPOETIN ALFA-EPBX 10,000 UNIT/ML VIAL SC ONE (13:00)
--- NOTE | 2020-01-24 13:09 | Progress Note ---
DATE: 01/24/2020 SUBJECTIVE: Remains dyspneic. Feels better sitting up. Blood pressure is high. OBJECTIVE: VITAL SIGNS: Temperature 98, pulse 88, respiratory rate 32, CHEST: with crackles. Neck veins appear to be distended. EXTREMITIES: No edema. ASSESSMENT: 1. End-stage renal disease, fluid overload, hypertension with poor control, history of increased fluid intake in spite of being advised to keep fluid restricted and intermittent pulmonary edema. 2. Frequent pneumonias. 3. Failure to thrive. PLAN: 1. Extra ultrafiltration session. Try to remove 3-4 L. 2. 3-hour run. 3. F160 filter. 4. Blood flow rate of 200 mL/minute, dialysate flow rate not applicable. Also, I have asked to keep on strict fluid restriction. MD CRICKET Meza/BRIT /[id number]
[2020-01-24] MEDS: SEVELAMER CARBONATE 800 MG TAB PO SCH ×2 (13:12→16:56)
[2020-01-24] MEDS: INSULIN REGULAR, HUMAN 100 UNIT/1 ML 3ML VIAL SQ SCH ×3 (13:13→21:00)
[2020-01-24] MEDS: CLONIDINE HCL 0.1 MG TAB PO SCH ×2 (16:56→22:13)
[2020-01-24] MEDS: METOPROLOL SUCCINATE 50 MG TAB XL PO SCH (16:57)
[2020-01-24] MEDS: DOCUSATE SODIUM 100 MG CAP PO SCH (16:57)
[2020-01-24] MEDS ORDERED: SODIUM CHLORIDE 0.9% 1000ML 2,000 ML ONE (17:41)
[2020-01-24] MEDS: INSULIN GLARGINE 100 UNITS/ML VIAL SQ SCH (21:00)
--- NOTE | 2020-01-24 21:05 | NUR ---
Nutrition Intervention Note RD Recommendation(s) for Physician: -Continue renal diabetic diet as ordered -Consult TOWN ADMINISTRATOR for swallow evaluation (nectar thick liquid?) -Rec Nepro BID to promote protein-calorie intake Plan of Care: RD following, monitoring for tolerance and adequacy, ONS rec Nutrition reason for involvement: Diagnosis ESRD RD Assessment 01/23 - 59yo M, who was admitted from [facility] for SOB with diagnosis of poorly controlled HTN and fluids overload. Pt requires extra ultra filtration session to remove 3-4L fluids. Currently on 1.2 L fluids restriction. Visited pt in the room. Pt appears frail with some muscle and fat loss noted. Pt reports fair appetite. No complains of nausea or vomiting. Per RN, pt ate 40% for breakfast and lunch today; pt will benefits from ONS. Pt is tolerating current diet texture; well fitting denture. Unknown UBW. Discussed nutrition rec with RN. Principal Problems/Diagnoses: 1. End-stage renal disease, fluid overload, hypertension with poor control, history of increased fluid intake in spite of being advised to keep fluid restricted and intermittent pulmonary edema. 2. Frequent pneumonias. 3. Failure to thrive. PMH: diabetes, chronic lung issues, congestive heart failure, noncompliance to fluid and salt restriction, and history of difficult to control hypertension I/O: reviewed GI: abdomen soft, non-tender Skin: intact Labs: (01/23) BUN 27 H, Creatinine 3.81 H, Glucose 200 300 Meds: insulin, colace, renvela, lisinopril, azithromycin Ht: 63in Wt: 118lb BMI: 20.9kg/m2 IBW: 124lb +/- 10% Malnutrition Evaluation (01/24/20) The patient meets criteria for MODERATE protein-calorie malnutrition. Energy intake: <50% of estimated energy requirements for >5 days Weight loss: Unknown Fat loss: Moderate hollow around orbital area Muscle loss: Moderate temporal depression, clavicle protrusion Supporting Evidence: Fluid accumulation: No edema Functional Status: measurably reduced Nutrition Prescription (Diet Order): Renal diabetic / nectar thick Estimated Nutritional Needs: Calories: 1350 1620kcal (25-30kcal/kg CBW) Protein: 65 81g(1.2-1.5g/kg CBW) Diet Adequacy: Not meeting calorie needs, Not meeting protein needs Tolerance: Tolerating PO Diet Education Needs Assessment: Diet education indicated, but patient not appropriate for education at this time. Nutrition Care Level: moderate Nutrition Diagnosis: Malnutrition related to chronic illness as evidenced inadequate PO intake, loss of muscle/ fat. Goal: Patient will meet 75-100% of estimated needs by follow up Progress: Progressing Interventions: Mineral/ carbohydrate modified diet, Commercial beverage Monitoring/Evaluation: Total energy intake, Total protein intake, Modified diet, Liquid supplement, Weight change Signed: Melba Liz MS, RD, LD
[2020-01-24] MEDS ORDERED: SODIUM CHLORIDE 0.9% 250ML 250 ML ONE (21:54)
[2020-01-24] MEDS: TIZANIDINE HCL 4 MG TAB PO SCH (22:13)
[2020-01-24] MEDS: GABAPENTIN 100 MG CAP PO SCH (22:13)
[2020-01-25] VITALS (8 sets, daily range): BP systolic 118–144; BP diastolic 58–67
[2020-01-25] MEDS: ALBUTEROL SULF 0.083% NEB SOLN 3 ML NEB NEB SCH ×4 (07:24→19:20)
[2020-01-25] MEDS: INSULIN REGULAR, HUMAN 100 UNIT/1 ML 3ML VIAL SQ SCH ×4 (07:30→20:54)
[2020-01-25] MEDS: SEVELAMER CARBONATE 800 MG TAB PO SCH ×3 (08:54→17:42)
[2020-01-25] MEDS: HYDRALAZINE HCL 25 MG TAB PO SCH ×3 (08:55→20:53)
[2020-01-25] MEDS: DOCUSATE SODIUM 100 MG CAP PO SCH ×2 (08:55→17:42)
[2020-01-25] MEDS: METOPROLOL SUCCINATE 50 MG TAB XL PO SCH ×2 (08:56→17:42)
[2020-01-25] MEDS: NIFEDIPINE CR 30 MG TAB PO SCH ×2 (08:56→20:54)
[2020-01-25] MEDS: LISINOPRIL 20 MG TAB PO SCH (08:56)
[2020-01-25] MEDS: CLONIDINE HCL 0.1 MG TAB PO SCH ×3 (08:57→20:53)
[2020-01-25] MEDS: POLYETHYLENE GLYCOL 3350 17 GM PACK PO SCH (08:57)
[2020-01-25] MEDS: MEGACE 400MG/ 10ML CUP PO SCH (08:57)
[2020-01-25] MEDS: LOSARTAN POTASSIUM 100 MG TAB PO SCH (08:58)
[2020-01-25] MEDS: GABAPENTIN 100 MG CAP PO SCH (20:53)
[2020-01-25] MEDS: CEFTRIAXONE SOD 1 GM/NS 50 ML 50 ML IV SCH (20:53)
[2020-01-25] MEDS: INSULIN GLARGINE 100 UNITS/ML VIAL SQ SCH (20:55)
[2020-01-25] MEDS: TIZANIDINE HCL 4 MG TAB PO SCH (21:45)
[2020-01-25] MEDS: AZITHROMYCIN 500MG/NS 250 ML 250 ML IV SCH (21:45)
[2020-01-26] VITALS (8 sets, daily range): BP systolic 120–150; BP diastolic 59–73
[2020-01-26] MEDS: ALBUTEROL SULF 0.083% NEB SOLN 3 ML NEB NEB SCH ×5 (02:30→19:30)
--- NOTE | 2020-01-26 06:44 | NUR ---
RECEIVED BEDSIDE SHIFT REPORT FROM OFF GOING NURSE. PATIENT IS RESTING IN BED. NO ACUTE DISTRESS NOTED. CALL LIGHT WITHIN REACH. BED IN THE LOWEST POSITION.
[2020-01-26] MEDS: INSULIN REGULAR, HUMAN 100 UNIT/1 ML 3ML VIAL SQ SCH ×5 (07:30→20:50)
[2020-01-26] MEDS: HYDRALAZINE HCL 25 MG TAB PO SCH ×3 (08:52→20:50)
[2020-01-26] MEDS: LOSARTAN POTASSIUM 100 MG TAB PO SCH (08:52)
[2020-01-26] MEDS: CLONIDINE HCL 0.1 MG TAB PO SCH ×3 (08:52→20:50)
[2020-01-26] MEDS: LISINOPRIL 20 MG TAB PO SCH (08:52)
[2020-01-26] MEDS: METOPROLOL SUCCINATE 50 MG TAB XL PO SCH ×2 (08:53→16:29)
[2020-01-26] MEDS: NIFEDIPINE CR 30 MG TAB PO SCH ×2 (08:53→20:50)
[2020-01-26] MEDS: SEVELAMER CARBONATE 800 MG TAB PO SCH ×3 (09:02→17:04)
[2020-01-26] MEDS: POLYETHYLENE GLYCOL 3350 17 GM PACK PO SCH (09:02)
[2020-01-26] MEDS: DOCUSATE SODIUM 100 MG CAP PO SCH ×2 (09:02→17:04)
[2020-01-26] MEDS: MEGACE 400MG/ 10ML CUP PO SCH (09:02)
--- NOTE | 2020-01-26 09:02 | NUR ---
HD NURSE AT BEDSIDE AT THIS TIME TO START DIALYSIS.
[2020-01-26] MEDS ORDERED: SODIUM CHLORIDE 0.9% 1000ML 2,000 ML ONE (09:03)
[2020-01-26 09:35] LABS: BASOPHILS # (AUTO) 0.1 (0.0-0.1); BASOPHILS % 0.9 % (0.0-1.0); EOSINOPHILS # (AUTO) 0.3 (0.0-0.4); EOSINOPHILS % 3.3 % (0.0-6.0); HEMATOCRIT 27.8 % (38.2-49.6); HEMOGLOBIN 8.3 g/dL (14.0-18.0); LYMPHOCYTES # (AUTO) 1.1 (1.0-3.2); LYMPHOCYTES % 10.7 % (18.0-39.1); MEAN CORPUSCULAR HEMOGLOBIN 30.2 pg (28-32); MEAN CORPUSCULAR HGB CONC 29.9 g/dL (31-35); MEAN CORPUSCULAR VOLUME 101.1 fL (81-99); MONOCYTES % 9.9 % (4.4-11.3); NEUTROPHILS # (AUTO) 7.4 (2.1-6.9); NEUTROPHILS % 74.7 % (38.7-80.0); PLATELET COUNT 232 x10e3/uL (140-360); RED BLOOD COUNT 2.75 x10e6/uL (4.3-5.7); RED CELL DISTRIBUTION WIDTH 16.4 % (11.7-14.4)
[2020-01-26] MEDS ORDERED: ALBUMIN 25% 12.5GM 0.25 GM/ML BTL IV PRN (09:45)
[2020-01-26] MEDS ORDERED: SODIUM CHLORIDE 0.9% 1000ML 2,000 ML IV PRN (09:45)
[2020-01-26 10:07] LABS: CALCIUM 9.2 mg/dL (8.4-10.2); CREATININE, SERUM 7.73 mg/dL (0.72-1.25)
--- NOTE | 2020-01-26 10:37 | NUR ---
PER DIALYSIS NURSE. HD NOT STARTED YET, WAS WAITING ON LABS. WILL COME BACK LATER TO DIALYZE PATIENT.
[2020-01-26] MEDS ORDERED: DEXTROSE 50% SYRINGE 50 ML IV PRN (12:15)
[2020-01-26] MEDS ORDERED: INSULIN REGULAR, HUMAN 100 UNIT/1 ML 3ML VIAL SQ SCH (12:30)
--- NOTE | 2020-01-26 13:18 | NUR ---
SPOKE WITH PT ABOUT SNF ORDER, SIGNED CHOICE TO RETURN TO [facility], FILED CHOICE IN CHART AND FAXED CLINICALS TO FACILITY
--- NOTE | 2020-01-26 13:40 | NUR ---
DIALYSIS NURSE IN TO DIALYZE PATIENT AT THIS TIME.
--- NOTE | 2020-01-26 15:10 | NUR ---
PAGED DR. Rosendo VAIL TO OBTAIN A DC ORDER. PATIENT HAS A ROOM AT [facility].
--- NOTE | 2020-01-26 15:17 | NUR ---
SHELTER FACILITY DISCHARGE INFORMATION PATIENT HAS BEEN ACCEPTED TO: NAME: [facility] ADDRESS:[id number] ACCEPTING [employer] SALES AND MANAGEMENT: GREGORIO MYERS MD: GENNA ROOM:[id number] NURSE CALL REPORT TO: [phone] IMM SIGNED AND OBTAINED (if applicable): IMM THE FOLLOWING DOCUMENTS MUST ACCOMPANY PATIENT FOR TRANSFER: COPIED CHART: PACKET
--- NOTE | 2020-01-26 17:20 | NUR ---
HD FINISHED AT THIS TIME. PATIENT IS IN STABLE CONDITION. 4L REMOVED DURING TREATMENT.
--- NOTE | 2020-01-26 17:25 | NUR ---
CALLED REPORT TO GINNY WISEMAN @ [facility] AT THIS TIME.
--- NOTE | 2020-01-26 19:00 | NUR ---
Patient visited during nursing rounds. Patient in stable condition. Pt aware he is leaving tonight going to [facility] via EMT. Pt is a dialysis patient with dialysis access to left arm AV fistula. Pt on bedrest and bed bound. Call lundberg within reach. Will monitor closely.
--- NOTE | 2020-01-26 19:04 | NUR ---
BEDSIDE SHIFT REPORT GIVEN TO ONCOMING NURSE. PATIENT IS IN STABLE CONDITION. CALL LIGHT WITHIN REACH. BED IN THE LOWEST POSITION. NIGHT NURSE NOTIFIED OF PATIENT TRANSFERRING TO [facility] TONIGHT ONCE AMBULANCE ARRIVES.
[2020-01-26] MEDS ORDERED: ONDANSETRON HCL 4 MG ORAL DISINTEGRATING TAB PO PRN (19:45)
[2020-01-26] MEDS: INSULIN GLARGINE 100 UNITS/ML VIAL SQ SCH (20:50)
[2020-01-26] MEDS: GABAPENTIN 100 MG CAP PO SCH (20:50)
[2020-01-26] MEDS: CEFTRIAXONE SOD 1 GM/NS 50 ML 50 ML IV SCH (20:57)
[2020-01-26] MEDS: TIZANIDINE HCL 4 MG TAB PO SCH (21:00)
--- NOTE | 2020-01-26 21:00 | NUR ---
Patient was discharged to [facility] via stretcher and accompanied by EMT. Patient in stable condition. Pt was given BP meds and Insulin for BS of 232.
[2020-01-26] MEDS: AZITHROMYCIN 500MG/NS 250 ML 250 ML IV SCH (21:01)
[2020-01-27] MEDS ORDERED: BALSAM PERU/CASTOR OIL 60 GM OINT...G. TP SCH (09:00)
== END 2020-01-26 21:00 | DRG 193 ==
LOC: ER 11:45 → ERHOLD 14:10 → MED/SURG3 01-24 00:08
PROC: 5A1D70Z Performance of Urinary Filtration, Intermittent, Less than 6 Hours Per Day (ICD-10-PCS; principal; 2020-01-23)
DX: J18.9 Pneumonia, unspecified organism (principal); N18.6 End stage renal disease; I50.23 Acute on chronic systolic (congestive) heart failure; I13.2 Hypertensive heart and chronic kidney disease with heart failure and with stage 5 chronic kidney disease, or end stage renal disease; J69.0 Pneumonitis due to inhalation of food and vomit; E11.22 Type 2 diabetes mellitus with diabetic chronic kidney disease; Z91.11 Patient's noncompliance with dietary regimen; R62.7 Adult failure to thrive; Z68.20 Body mass index [BMI] 20.0-20.9, adult; E87.5 Hyperkalemia; Z11.59 Encounter for screening for other viral diseases
CPT/HCPCS: 36415; 71045; 80048; 80053; 82550; 82553; 82948; 83880; 84484; 85025; 85610; 85730; 86704; 86706; 87040; 87340; 90962; 93005; 94640; 97139; 99251; 99284; J0360; J0456; J0696; J1815; J1817; J2310; J2405; J7030; J7050

== ENCOUNTER 2020-04-01 10:19 | Emergency (ER) | payer MEDICARE, OTHER ==
[~2020-04-01] VITALS: Ht 160 cm; Wt 53.5 kg
[~2020-04-01 10:19] MED LIST changes: +BASAGLAR K100 UNIT/1 SQ; +COLACE100 MG PO; +GABAPENTIN100 MG PO; +LACTULOSE20 GM/30 M PO; +MIRALAX17 GM PO; +NOVOLIN R100 UNIT/1; +RENAGEL800 MG PO; +ZOFRAN4 MG PO
[2020-04-01] MEDS ORDERED: DEXTROSE 50% SYRINGE 50 ML IV STA (10:25)
--- NOTE | 2020-04-01 10:25 | Emergency Department Note ---
History of Present Illnes History of Present Illness History of Present Illness This is a 59 year old male [facility] initial BS of 350 and was given 8 Units of insulin at NM. Patient noted to be lethargic per nurse and noted BS of 38. Meloe patient given oral glucose and glucagon. . Past Medical/Family History Physician Review I have reviewed the patient's past medical and family history. Any updates have been documented here. Past Medical History Past Medical History: Hypertension, Diabetes, ESRD Other Medical History: PLEURAL EFFUSION ANEMIA ESRD SOB Past Surgical History: None Other Surgery: Left arm fistula DECORTICATION Other Last Tetanus: UNKNOWN Physical Exam Related Data Allergies: Coded Allergies: No Known Allergies (Unverified , 08/18/19) Physical Exam CONSTITUTIONAL Constitutional: Present cachectic, Present distressed, Present ill appearing HENT HENT: Present normocephalic, Present atraumatic, Present oropharynx clear/moist, Present nose normal HENT L/R: Present left ext ear normal, Present right ext ear normal EYES Eyes: Reports PERRL, Reports conjunctivae normal NECK Neck: Present ROM normal PULMONARY Pulmonary: Present effort normal, Present breath sounds normal CARDIOVASCULAR Cardiovascular: Present regular rhythm, Present heart sounds normal, Present capillary refill normal, Present normal rate GASTROINTESTINAL Abdominal: Present soft, Present nontender, Present bowel sounds normal GENITOURINARY Genitourinary: Present exam deferred SKIN Skin: Present warm, Present dry MUSCULOSKELETAL Musculoskeletal: Present ROM normal NEUROLOGICAL Neurological: Present alert, Present oriented x 3, Present no gross motor or sensory deficits PSYCHOLOGICAL Psychological: Present mood/affect normal, Present judgement normal Procedures 12 Lead ECG Interpretation ECG Interpretation : 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: 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: Interpreted by ED physician Date: Apr 01, 2020 Time: 11:21 Prior ECG tracings: reviewed Rhythm: sinus bradycardia Rate: bradycardia BPM: 55 QRS axis: normal ST segments normal: Yes T waves normal: No T wave elevation: V1, V2, V3 Clinical Impression: abnormal ECG Assessment & Plan Medical Decision Making MDM Diff Dx : hypoglycemia, drug reaction Assessment & Plan Final Impression: (1) Hypoglycemia Home Meds Reported Medications Insulin Regular, Human (NOVOLIN R) 100 Unit/1 Ml Vial IF 0-200= 0 UNITS; 201-250= 2 UNITS; 251-300= 4 UNITS; 301-350= 6 UNITS; 351- 400= 8 UNITS OVER 400 UNITS CALL , SUBCUTANEOUSLY BEFORE MEALS AND AT BEDTIME FOR DM 01/24/20 Gabapentin (GABAPENTIN) 100 Mg Capsule, 100 MG PO HS 01/24/20 Sevelamer Hcl (RENAGEL) 800 Mg Tablet, 800 MG PO TID, TAB BEFORE MEALS 01/24/20 Hydralazine Hcl (HYDRALAZINE HCL) 25 Mg Tab, 25 MG PO BID, TAB HOLD SBP <110, DBP <60, HR <60 01/24/20 Nifedipine (NIFEDIPINE ER) 30 Mg Tab.er.24, 1 TAB PO BID HOLD FOR SBP <110, DBP <60, HR < 60 01/24/20 Ondansetron Hcl* (ZOFRAN*) 4 Mg Tablet, 4 MG PO Q6H PRN for NAUSEA 01/24/20 Insulin Glargine,Hum.rec.anlog (Basaglar Kwikpen U-100) 100 Unit/1 Ml Insuln.pen, 8 UNITS SQ HS 01/24/20 Polyethylene Glycol 3350 (MIRALAX) 17 Gm Powd.pack, 17 GM PO DAILY, GM 01/24/20 Docusate Sodium (COLACE) 100 Mg Cap, 100 MG PO BID, #30 CAP 01/24/20 Lactulose (LACTULOSE) 20 Gm/30 Ml Solution, 30 ML PO DAILY PRN for CONSTIPATION, EACH 01/24/20 Tizanidine Hcl (TIZANIDINE HCL) 4 Mg Tablet, 4 MG PO HS, TAB 08/12/19 Metoprolol Succinate (METOPROLOL SUCCINATE) 50 Mg Tab.er.24h, 100 MG PO BID, MG HOLD SBP <110, DBP <60. HR <60 08/12/19 Megestrol Acetate (MEGESTROL ACETATE) 400 Mg/10 Ml Oral.susp, 10 ML PO DAILY, EA 08/12/19 Losartan Potassium (LOSARTAN POTASSIUM) 100 Mg Tablet, 100 MG PO DAILY, TAB HOLD SBP <110, DBP <60, HR <60 08/12/19 Clonidine Hcl (CLONIDINE HCL) 0.1 Mg Tablet, 1 TAB PO TID, #60 TAB HOLD FOR SBP <160 08/12/19 Acetaminophen With Codeine (TYLENOL WITH CODEINE #3 TABLET) 1 Each Tablet, 300 MG PO Q6H PRN for MODERATE PAIN (4-6), TAB 08/12/19 ROGERS FAUSTIN DO Apr 01, 2020 10:25
[2020-04-01] MEDS ORDERED: ASPIRIN 81 MG CHEW TAB PO ONE (10:30)
--- NOTE | 2020-04-01 11:09 | Diagnostic Imaging Report ---
CT BRAIN WO HISTORY: Altered mental status COMPARISON: Head CT 09/24/2019 Technique: Noncontrast axial scans were obtained from skull base to the vertex. Coronal and sagittal reconstructions obtained from the axial data. One or more of the following dose reduction techniques were used: Automated exposure control, adjustment of the mA and/or kV according to patient size, and/or utilization of iterative reconstruction technique. DISCUSSION: Scalp/Skull: Unremarkable. Brain sulci: Mildly prominent. Ventricles: Compensatory dilatation. Extra-axial spaces: No masses or fluid collections. Carotid and vertebral artery calcifications are present. Parenchyma: Mild to moderate bilateral deep white matter hypodensity is likely chronic microvascular ischemic change. Old lacunar infarcts are seen in the left llanos radiata, bilateral thalami (left greater than right), and right striatocapsular region. Otherwise, no masses, hemorrhage, or large vascular territory acute infarct. Dural sinuses: No abnormal densities. Sellar/Suprasellar region: Intact. Skull base: Intact. Incidental findings: Bilateral ocular lens replacement. Nonspecific left mastoid effusion. Mild bilateral frontonasal recess mucosal thickening. IMPRESSION: 1. No acute intracranial abnormalities. 2. Mild to moderate supratentorial chronic microvascular ischemic change with old lacunar infarcts as described above. 3. Mild generalized cerebral volume loss. Signed by: Dr. Robert Leblanc M.D. on 04/01/2020 11:06 AM
[2020-04-01 11:15] LABS: BASOPHILS # (AUTO) 0.1 (0.0-0.1); BASOPHILS % 0.8 % (0.0-1.0); EOSINOPHILS # (AUTO) 1.2 (0.0-0.4); EOSINOPHILS % 11.1 % (0.0-6.0); HEMATOCRIT 44.9 % (38.2-49.6); HEMOGLOBIN 13.4 g/dL (14.0-18.0); LYMPHOCYTES # (AUTO) 1.5 (1.0-3.2); LYMPHOCYTES % 13.7 % (18.0-39.1); MEAN CORPUSCULAR HGB CONC 29.8 g/dL (31-35); MEAN CORPUSCULAR VOLUME 103.9 fL (81-99); MONOCYTES % 8.5 % (4.4-11.3); NEUTROPHILS # (AUTO) 7.3 (2.1-6.9); NEUTROPHILS % 65.6 % (38.7-80.0); PLATELET COUNT 190 x10e3/uL (140-360); RED BLOOD COUNT 4.32 x10e6/uL (4.3-5.7); RED CELL DISTRIBUTION WIDTH 16.7 % (11.7-14.4)
[2020-04-01 12:24] LABS: ALBUMIN 3.3 g/dL (3.5-5.0); ALBUMIN/GLOBULIN RATIO 0.7 (0.8-2.0); ANION GAP 19.8 mmol/L (8-16); CALCIUM 9.5 mg/dL (8.4-10.2); CREATININE, SERUM 3.58 mg/dL (0.72-1.25); POTASSIUM 4.8 mmol/L (3.5-5.1)
[2020-04-01 12:30] LABS: CREATINE KINASE MB 3.2 ng/mL (0-5.0)
== END 2020-04-01 14:15 ==
LOC: ER 10:22
DX: E11.649 Type 2 diabetes mellitus with hypoglycemia without coma (principal); I12.0 Hypertensive chronic kidney disease with stage 5 chronic kidney disease or end stage renal disease; E11.22 Type 2 diabetes mellitus with diabetic chronic kidney disease; N18.6 End stage renal disease; R06.02 Shortness of breath; D64.9 Anemia, unspecified; R94.31 Abnormal electrocardiogram [ECG] [EKG]
CPT/HCPCS: 36415; 70450; 80053; 82550; 82553; 82948; 84484; 85025; 93005; 99284; U0002

== ENCOUNTER 2020-04-24 11:00 | Inpatient (IN) | payer MEDICARE, OTHER ==
[~2020-04-24] VITALS: Ht 172.7 cm; Wt 51.8 kg
[2020-04-24 11:55] LABS: BASOPHILS # (AUTO) 0.1 (0.0-0.1); BASOPHILS % 0.4 % (0.0-1.0); EOSINOPHILS # (AUTO) 0.2 (0.0-0.4); EOSINOPHILS % 1.3 % (0.0-6.0); HEMATOCRIT 41.4 % (38.2-49.6); LYMPHOCYTES # (AUTO) 1.5 (1.0-3.2); LYMPHOCYTES % 13.2 % (18.0-39.1); MEAN CORPUSCULAR HEMOGLOBIN 30.3 pg (28-32); MEAN CORPUSCULAR VOLUME 104.5 fL (81-99); MONOCYTES # (AUTO) 0.9 (0.2-0.8); MONOCYTES % 7.9 % (4.4-11.3); NEUTROPHILS # (AUTO) 8.6 (2.1-6.9); NEUTROPHILS % 76.7 % (38.7-80.0); PLATELET COUNT 264 x10e3/uL (140-360); RED BLOOD COUNT 3.96 x10e6/uL (4.3-5.7); RED CELL DISTRIBUTION WIDTH 15.6 % (11.7-14.4)
[2020-04-24 12:06] LABS: INR 0.9; PROTHROMBIN TIME 12.6 seconds (11.9-14.5)
[2020-04-24 12:07] LABS: PARTIAL THROMBOPLASTIN TIME 30.9 seconds (23.8-35.5)
[2020-04-24 12:14] LABS: ALBUMIN 2.6 g/dL (3.5-5.0); ALBUMIN/GLOBULIN RATIO 0.5 (0.8-2.0); ANION GAP 25.7 mmol/L (8-16); CALCIUM 9.1 mg/dL (8.4-10.2); CREATININE, SERUM 9.03 mg/dL (0.72-1.25); MAGNESIUM 2.4 MG/DL (1.3-2.1)
[2020-04-24 12:17] LABS: POTASSIUM 6.7 mmol/L (3.5-5.1)
[2020-04-24 12:23] LABS: CREATINE KINASE MB 2.5 ng/mL (0-5.0)
[2020-04-24] MEDS ORDERED: DEXTROSE 50% SYRINGE 50 ML IV STA (12:51)
[2020-04-24] MEDS ORDERED: SODIUM BICARBONATE 8.4% INJ 50 ML SYR IV STA (12:51)
[2020-04-24] MEDS ORDERED: ETOMIDATE 2 MG/ML 10 ML INJ IV ONE (12:55)
[2020-04-24] MEDS ORDERED: VECURONIUM BROMIDE FOR INJ 20 MG VIAL ONE (12:55)
[2020-04-24] MEDS ORDERED: INSULIN REGULAR, HUMAN 100 UNIT/1 ML 3ML VIAL IV NR (13:00)
[2020-04-24] MEDS ORDERED: CALCIUM GLUCONATE 10% INJ 4.65 MEQ in SODIUM CHLORIDE 0.9% 50ML 50 ML IV ONE (13:00)
[2020-04-24] MEDS ORDERED: CEFTRIAXONE SOD 1 GM/NS 50 ML 50 ML IV ONE (13:30)
[2020-04-24] MEDS ORDERED: VANCOMYCIN 1GM/NS 250 ML 250 ML IV ONE (13:45)
[2020-04-24] MEDS ORDERED: MEROPENEM 500MG 500 MG in SODIUM CHLORIDE 0.9% 50ML 50 ML IV SCH (13:45)
[2020-04-24] MEDS ORDERED: ONDANSETRON HCL INJ 2MG/ML 2ML 2 MG/ML VIAL IV PRN (13:45)
[2020-04-24] MEDS ORDERED: VECURONIUM BROMIDE FOR INJ 20 MG VIAL IV STA (14:31)
[2020-04-24] MEDS ORDERED: ETOMIDATE 2 MG/ML 10 ML INJ IV STA (14:31)
[2020-04-24 14:35] LABS: ABG PH 7.16 (7.35-7.45)
[2020-04-24 14:36] LABS: ABG HCO3 29 mmol/L (22-26); ABG PCO2 81 mmHg (35-45); ABG PO2 333 mmHg (80-105); ABG TCO2 31
[2020-04-24 14:37] LABS: ABG HCO3 29 mmol/L (22-26); ABG PCO2 80 mmHg (35-45); ABG PH 7.17 (7.35-7.45); ABG PO2 218 mmHg (80-105)
[2020-04-24 14:38] LABS: ABG TCO2 32
[2020-04-24] MEDS ORDERED: FENTANYL CITRATE INJ 2,000 MCG in SODIUM CHLORIDE 0.9% 250ML 210 ML IV PRN (14:45)
[2020-04-24] MEDS ORDERED: LORAZEPAM INJ 2 MG/ML VIAL IV ONE (17:15)
[2020-04-24 17:18] LABS: ABG HCO3 28 mmol/L (22-26); ABG PCO2 33 mmHg (35-45); ABG PH 7.53 (7.35-7.45); ABG PO2 196 mmHg (80-105); ABG TCO2 29
[2020-04-24] MEDS ORDERED: LORAZEPAM INJ 2 MG/ML VIAL ONE (17:19)
[2020-04-24] MEDS ORDERED: MIDAZOLAM HCL 50 MG in SODIUM CHLORIDE 0.9% 100 ML 90 ML IV PRN ×2 (18:30→19:15)
[2020-04-24] MEDS ORDERED: MEROPENEM 500MG/ NS 50ML 50 ML ONE (19:33)
[2020-04-24] MEDS ORDERED: VANCOMYCIN 1GM/NS 250 ML 250 ML ONE (19:33)
[2020-04-24] MEDS: MEROPENEM 500MG 500 MG in SODIUM CHLORIDE 0.9% 50ML 50 ML IV SCH (19:40)
[2020-04-24] MEDS: HEPARIN SOD (PORCINE) 5,000 UNIT/ML VIAL SC SCH (21:37)
[2020-04-24 22:15] VITALS: BP 161/81
[2020-04-24] MEDS: MIDAZOLAM HCL 5MG/ML 10ML VIAL 100 ML BAG IV PRN (22:26)
[2020-04-24 22:30] VITALS: BP 133/57
[2020-04-24 23:58] VITALS: BP 175/61
[2020-04-25] VITALS (25 sets, daily range): BP systolic 108–182; BP diastolic 40–94
[2020-04-25 01:59] LABS: CREATINE KINASE MB 2.5 ng/mL (0-5.0)
[2020-04-25] MEDS: ACETAMINOPHEN 650 MG SUPP PR PRN (05:48)
[2020-04-25 06:12] LABS: BASOPHILS # (AUTO) 0.1 (0.0-0.1); BASOPHILS % 0.5 % (0.0-1.0); EOSINOPHILS # (AUTO) 0.2 (0.0-0.4); EOSINOPHILS % 1.5 % (0.0-6.0); HEMATOCRIT 39.4 % (38.2-49.6); HEMOGLOBIN 11.8 g/dL (14.0-18.0); LYMPHOCYTES # (AUTO) 0.9 (1.0-3.2); LYMPHOCYTES % 6.6 % (18.0-39.1); MEAN CORPUSCULAR HGB CONC 29.9 g/dL (31-35); MEAN CORPUSCULAR VOLUME 100.3 fL (81-99); MONOCYTES # (AUTO) 0.9 (0.2-0.8); NEUTROPHILS # (AUTO) 10.8 (2.1-6.9); NEUTROPHILS % 83.6 % (38.7-80.0); PLATELET COUNT 244 x10e3/uL (140-360); RED BLOOD COUNT 3.93 x10e6/uL (4.3-5.7); RED CELL DISTRIBUTION WIDTH 15.9 % (11.7-14.4)
[2020-04-25] MEDS ORDERED: FENTANYL CITRATE INJ 2,000 MCG in SODIUM CHLORIDE 0.9% 250ML 210 ML IV PRN (06:45)
[2020-04-25 06:50] LABS: CREATINE KINASE MB 1.9 ng/mL (0-5.0)
[2020-04-25 07:10] LABS: ALBUMIN 2.6 g/dL (3.5-5.0); ALBUMIN/GLOBULIN RATIO 0.5 (0.8-2.0); ANION GAP 21.8 mmol/L (8-16); CALCIUM 9.2 mg/dL (8.4-10.2); CREATININE, SERUM 5.28 mg/dL (0.72-1.25); POTASSIUM 4.8 mmol/L (3.5-5.1)
[2020-04-25 07:20] LABS: MAGNESIUM 1.9 MG/DL (1.3-2.1); PHOSPHORUS 4.4 MG/DL (2.3-4.7)
[2020-04-25] MEDS: MEROPENEM 500MG 500 MG in SODIUM CHLORIDE 0.9% 50ML 50 ML IV SCH (08:15)
[2020-04-25] MEDS: HEPARIN SOD (PORCINE) 5,000 UNIT/ML VIAL SC SCH ×2 (08:16→21:43)
[2020-04-25] MEDS ORDERED: MEROPENEM 500MG/ NS 50ML 50 ML ONE (08:22)
[2020-04-25] MEDS: FAMOTIDINE 20 MG/2 ML VIAL IV SCH (09:55)
[2020-04-25] MEDS ORDERED: VANCOMYCIN 1GM/NS 250 ML 250 ML IV ONE (10:15)
[2020-04-25] MEDS: MIDAZOLAM HCL 5MG/ML 10ML VIAL 100 ML BAG IV PRN (11:17)
[2020-04-25] MEDS ORDERED: FENTANYL 2000MCG/NS 250 250 ML IV PRN (11:30)
[2020-04-25] MEDS ORDERED: DEXMEDETOMIDINE 200MCG/NS 50ML 50 ML IV PRN (15:15)
[2020-04-25] MEDS: NICARDIPINE 20MG/200ML PREMIX 200 ML IV PRN ×2 (16:05→21:41)
[2020-04-25] MEDS: MEROPENEM 500MG/ NS 50ML 50 ML IV SCH (21:39)
[2020-04-26] VITALS (23 sets, daily range): BP systolic 90–171; BP diastolic 58–96
[2020-04-26] MEDS: NICARDIPINE 20MG/200ML PREMIX 200 ML IV PRN ×3 (02:11→15:51)
[2020-04-26] MEDS ORDERED: SODIUM CHLORIDE 0.9% 250ML 250 ML ONE (02:17)
[2020-04-26 05:51] LABS: BASOPHILS # (AUTO) 0.1 (0.0-0.1); BASOPHILS % 0.5 % (0.0-1.0); EOSINOPHILS # (AUTO) 0.2 (0.0-0.4); EOSINOPHILS % 1.2 % (0.0-6.0); HEMATOCRIT 34.8 % (38.2-49.6); HEMOGLOBIN 10.6 g/dL (14.0-18.0); LYMPHOCYTES % 7.7 % (18.0-39.1); MEAN CORPUSCULAR HGB CONC 30.5 g/dL (31-35); MEAN CORPUSCULAR VOLUME 98.6 fL (81-99); MONOCYTES # (AUTO) 0.8 (0.2-0.8); MONOCYTES % 6.4 % (4.4-11.3); NEUTROPHILS # (AUTO) 10.8 (2.1-6.9); NEUTROPHILS % 83.6 % (38.7-80.0); PLATELET COUNT 201 x10e3/uL (140-360); RED BLOOD COUNT 3.53 x10e6/uL (4.3-5.7); RED CELL DISTRIBUTION WIDTH 16.1 % (11.7-14.4)
[2020-04-26 06:10] LABS: CALCIUM 9.2 mg/dL (8.4-10.2); CREATININE, SERUM 6.98 mg/dL (0.72-1.25)
[2020-04-26] MEDS: FAMOTIDINE 20 MG/2 ML VIAL IV SCH (08:45)
[2020-04-26] MEDS: MEROPENEM 500MG/ NS 50ML 50 ML IV SCH ×2 (08:46→22:21)
[2020-04-26] MEDS: HEPARIN SOD (PORCINE) 5,000 UNIT/ML VIAL SC SCH ×2 (08:47→22:54)
[2020-04-26 12:30] LABS: ABG HCO3 25 mmol/L (22-26); ABG PCO2 38 mmHg (35-45); ABG PH 7.42 (7.35-7.45); ABG PO2 108 mmHg (80-105); ABG TCO2 26
[2020-04-26] MEDS ORDERED: SODIUM CHLORIDE 0.9% 1000ML 2,000 ML ONE (15:33)
[2020-04-26] MEDS ORDERED: DEXTROSE 50% SYRINGE 50 ML IV PRN (20:45)
[2020-04-26] MEDS: INSULIN LISPRO 100 UNIT/1 ML 3ML VIAL SQ SCH (22:50)
[2020-04-27] VITALS (24 sets, daily range): BP systolic 115–178; BP diastolic 66–87
[2020-04-27 04:50] LABS: CALCIUM IONIZED 1.1 mmol/L (1.09-1.30)
[2020-04-27 04:53] LABS: BASOPHILS # (AUTO) 0.1 (0.0-0.1); BASOPHILS % 0.4 % (0.0-1.0); EOSINOPHILS # (AUTO) 0.4 (0.0-0.4); EOSINOPHILS % 2.8 % (0.0-6.0); HEMATOCRIT 40.6 % (38.2-49.6); HEMOGLOBIN 12.2 g/dL (14.0-18.0); LYMPHOCYTES # (AUTO) 1.2 (1.0-3.2); LYMPHOCYTES % 8.2 % (18.0-39.1); MEAN CORPUSCULAR HEMOGLOBIN 29.9 pg (28-32); MEAN CORPUSCULAR VOLUME 99.5 fL (81-99); MONOCYTES # (AUTO) 1.1 (0.2-0.8); MONOCYTES % 7.3 % (4.4-11.3); NEUTROPHILS % 80.6 % (38.7-80.0); PLATELET COUNT 230 x10e3/uL (140-360); RED BLOOD COUNT 4.08 x10e6/uL (4.3-5.7); RED CELL DISTRIBUTION WIDTH 15.9 % (11.7-14.4)
[2020-04-27 05:14] LABS: ALBUMIN 2.8 g/dL (3.5-5.0); ALBUMIN/GLOBULIN RATIO 0.5 (0.8-2.0); ANION GAP 26.1 mmol/L (8-16); CALCIUM 10.1 mg/dL (8.4-10.2); CREATININE, SERUM 4.54 mg/dL (0.72-1.25); MAGNESIUM 2.2 MG/DL (1.3-2.1); PHOSPHORUS 4.9 MG/DL (2.3-4.7); POTASSIUM 4.1 mmol/L (3.5-5.1)
[2020-04-27] MEDS: BALSAM PERU/CASTOR OIL 60 GM OINT...G. TP SCH (08:32)
[2020-04-27] MEDS: FAMOTIDINE 20 MG/2 ML VIAL IV SCH (08:32)
[2020-04-27] MEDS: MEROPENEM 500MG/ NS 50ML 50 ML IV SCH ×2 (08:32→22:03)
[2020-04-27] MEDS: INSULIN LISPRO 100 UNIT/1 ML 3ML VIAL SQ SCH ×4 (08:32→22:09)
[2020-04-27] MEDS: HEPARIN SOD (PORCINE) 5,000 UNIT/ML VIAL SC SCH ×2 (08:33→22:06)
[2020-04-27] MEDS ORDERED: NIFEDIPINE CR 30 MG TAB PO SCH (09:00)
[2020-04-27] MEDS ORDERED: VANCOMYCIN 750MG/NS 150ML IVPB 150 ML IV SCH (13:30)
[2020-04-27] MEDS: HYDRALAZINE HCL 20 MG/ML VIAL IV PRN (14:08)
[2020-04-27] MEDS ORDERED: NIFEDIPINE 10 MG CAP PO SCH (15:00)
[2020-04-28] VITALS (27 sets, daily range): BP systolic 87–189; BP diastolic 58–95
[2020-04-28 04:50] LABS: BASOPHILS # (AUTO) 0.1 (0.0-0.1); BASOPHILS % 0.6 % (0.0-1.0); EOSINOPHILS # (AUTO) 0.6 (0.0-0.4); EOSINOPHILS % 4.6 % (0.0-6.0); HEMATOCRIT 41.5 % (38.2-49.6); HEMOGLOBIN 12.4 g/dL (14.0-18.0); LYMPHOCYTES # (AUTO) 1.3 (1.0-3.2); LYMPHOCYTES % 10.4 % (18.0-39.1); MEAN CORPUSCULAR HGB CONC 29.9 g/dL (31-35); MEAN CORPUSCULAR VOLUME 100.2 fL (81-99); MONOCYTES # (AUTO) 1.2 (0.2-0.8); MONOCYTES % 10.1 % (4.4-11.3); NEUTROPHILS % 73.8 % (38.7-80.0); PLATELET COUNT 194 x10e3/uL (140-360); RED BLOOD COUNT 4.14 x10e6/uL (4.3-5.7); RED CELL DISTRIBUTION WIDTH 16.1 % (11.7-14.4)
[2020-04-28 05:09] LABS: ANION GAP 26.2 mmol/L (8-16); CALCIUM 10.1 mg/dL (8.4-10.2); CREATININE, SERUM 6.64 mg/dL (0.72-1.25); MAGNESIUM 2.6 MG/DL (1.3-2.1); PHOSPHORUS 6.2 MG/DL (2.3-4.7); POTASSIUM 4.2 mmol/L (3.5-5.1)
[2020-04-28] MEDS ORDERED: SODIUM CHLORIDE 0.9% 1000ML 2,000 ML ONE (07:44)
[2020-04-28] MEDS: INSULIN LISPRO 100 UNIT/1 ML 3ML VIAL SQ SCH ×3 (07:48→16:30)
[2020-04-28] MEDS: HEPARIN SOD (PORCINE) 5,000 UNIT/ML VIAL SC SCH ×2 (07:49→21:06)
[2020-04-28] MEDS: FAMOTIDINE 20 MG/2 ML VIAL IV SCH (07:49)
[2020-04-28] MEDS: BALSAM PERU/CASTOR OIL 60 GM OINT...G. TP SCH (07:50)
[2020-04-28 10:37] LABS: ABG HCO3 30 mmol/L (22-26); ABG PCO2 40 mmHg (35-45); ABG PH 7.48 (7.35-7.45); ABG PO2 171 mmHg (80-105); ABG TCO2 31
[2020-04-28] MEDS: MEROPENEM 500MG/ NS 50ML 50 ML IV SCH ×2 (10:38→21:41)
[2020-04-28 12:10] LABS: ABG PH 7.38 (7.35-7.45)
[2020-04-28] MEDS ORDERED: MANNITOL 25% 12.5GM/50ML 100 ML ONE (12:10)
[2020-04-28 12:11] LABS: ABG HCO3 30 mmol/L (22-26); ABG PCO2 50 mmHg (35-45); ABG PO2 92 mmHg (80-105); ABG TCO2 31
[2020-04-28] MEDS ORDERED: SODIUM CHLORIDE 0.9% 1000ML 2,000 ML IV PRN (12:15)
[2020-04-28] MEDS ORDERED: MANNITOL 25% 12.5GM/50 ML VIAL IV PRN (12:15)
[2020-04-28] MEDS ORDERED: ALBUMIN 25% 12.5GM 0.25 GM/ML BTL IV PRN (12:15)
[2020-04-28] MEDS: VANCOMYCIN 750MG/NS 150ML IVPB 150 ML IV SCH (12:20)
[2020-04-29] VITALS (26 sets, daily range): BP systolic 89–135; BP diastolic 57–78
[2020-04-29] MEDS: ALBUTEROL/IPRATROPIUM 3 ML NEB NEB SCH ×4 (00:45→20:05)
[2020-04-29] MEDS ORDERED: DEXMEDETOMIDINE HCL 200 MCG in SODIUM CHLORIDE 0.9% 50ML 48 ML IV PRN (01:30)
[2020-04-29] MEDS ORDERED: DEXMEDETOMIDINE 200MCG/NS 50ML 50 ML IV ONE (01:32)
[2020-04-29 02:22] LABS: ABG HCO3 26 mmol/L (22-26); ABG PCO2 41 mmHg (35-45); ABG PO2 110 mmHg (80-105); ABG TCO2 27
[2020-04-29] MEDS: ACETAMINOPHEN 650 MG SUPP PR PRN (02:47)
[2020-04-29 04:48] LABS: BASOPHILS # (AUTO) 0.1 (0.0-0.1); BASOPHILS % 0.5 % (0.0-1.0); EOSINOPHILS # (AUTO) 0.6 (0.0-0.4); EOSINOPHILS % 4.9 % (0.0-6.0); HEMATOCRIT 46.7 % (38.2-49.6); HEMOGLOBIN 13.5 g/dL (14.0-18.0); LYMPHOCYTES # (AUTO) 1.2 (1.0-3.2); LYMPHOCYTES % 10.1 % (18.0-39.1); MEAN CORPUSCULAR HEMOGLOBIN 30.5 pg (28-32); MEAN CORPUSCULAR HGB CONC 28.9 g/dL (31-35); MEAN CORPUSCULAR VOLUME 105.4 fL (81-99); MONOCYTES # (AUTO) 1.1 (0.2-0.8); MONOCYTES % 10.1 % (4.4-11.3); NEUTROPHILS # (AUTO) 8.3 (2.1-6.9); NEUTROPHILS % 73.5 % (38.7-80.0); PLATELET COUNT 155 x10e3/uL (140-360); RED BLOOD COUNT 4.43 x10e6/uL (4.3-5.7)
[2020-04-29 05:11] LABS: ANION GAP 27.1 mmol/L (8-16); CREATININE, SERUM 4.64 mg/dL (0.72-1.25); POTASSIUM 5.1 mmol/L (3.5-5.1)
[2020-04-29 05:12] LABS: CALCIUM 10.5 mg/dL (8.4-10.2)
[2020-04-29] MEDS: INSULIN LISPRO 100 UNIT/1 ML 3ML VIAL SQ SCH ×4 (05:28→17:15)
[2020-04-29 07:22] LABS: HYPOCHROMASIA SLIGHT; PLATELET ESTIMATE ADEQUATE; RBC MORPHOLOGY COMMENT NORMAL
[2020-04-29 07:23] LABS: PLATELET MORPHOLOGY COMMENT FEW EDTA CLUMPING
[2020-04-29] MEDS: MEROPENEM 500MG/ NS 50ML 50 ML IV SCH ×2 (08:23→20:47)
[2020-04-29] MEDS: HEPARIN SOD (PORCINE) 5,000 UNIT/ML VIAL SC SCH ×2 (08:23→20:48)
[2020-04-29] MEDS: FAMOTIDINE 20 MG/2 ML VIAL IV SCH (08:23)
[2020-04-29] MEDS: BALSAM PERU/CASTOR OIL 60 GM OINT...G. TP SCH (08:24)
[2020-04-29] MEDS: DEXMEDETOMIDINE 200MCG/NS 50ML 50 ML IV PRN ×2 (11:01→19:41)
[2020-04-29] MEDS: PANTOPRAZOLE 40 MG 10ML VIAL IV SCH (11:23)
[2020-04-29] MEDS: ACETYLCYSTEINE 200 MG/ML 4ML VIAL INH SCH ×2 (12:00→20:05)
[2020-04-30] VITALS (9 sets, daily range): BP systolic 120–145; BP diastolic 68–85
[2020-04-30] MEDS: INSULIN LISPRO 100 UNIT/1 ML 3ML VIAL SQ SCH ×4 (00:39→18:00)
[2020-04-30] MEDS: ACETYLCYSTEINE 200 MG/ML 4ML VIAL INH SCH ×2 (07:00→20:00)
[2020-04-30] MEDS: ALBUTEROL/IPRATROPIUM 3 ML NEB NEB SCH ×3 (07:00→20:00)
[2020-04-30] MEDS: DEXMEDETOMIDINE 200MCG/NS 50ML 50 ML IV PRN ×3 (08:15→21:41)
[2020-04-30] MEDS: PANTOPRAZOLE 40 MG 10ML VIAL IV SCH (09:07)
[2020-04-30] MEDS: MEROPENEM 500MG/ NS 50ML 50 ML IV SCH (09:07)
[2020-04-30] MEDS: BALSAM PERU/CASTOR OIL 60 GM OINT...G. TP SCH (09:08)
[2020-04-30] MEDS: HEPARIN SOD (PORCINE) 5,000 UNIT/ML VIAL SC SCH ×2 (09:14→20:58)
[2020-04-30] MEDS: VANCOMYCIN 750MG/NS 150ML IVPB 150 ML IV SCH (10:00)
[2020-05-01] VITALS (8 sets, daily range): BP systolic 79–152; BP diastolic 60–86
[2020-05-01] MEDS: INSULIN LISPRO 100 UNIT/1 ML 3ML VIAL SQ SCH ×4 (00:17→17:22)
[2020-05-01] MEDS: ALBUTEROL/IPRATROPIUM 3 ML NEB NEB SCH ×4 (01:25→19:00)
[2020-05-01 06:19] LABS: BASOPHILS # (AUTO) 0.1 (0.0-0.1); BASOPHILS % 0.7 % (0.0-1.0); EOSINOPHILS # (AUTO) 0.9 (0.0-0.4); EOSINOPHILS % 5.5 % (0.0-6.0); HEMATOCRIT 44.8 % (38.2-49.6); HEMOGLOBIN 12.9 g/dL (14.0-18.0); LYMPHOCYTES # (AUTO) 1.1 (1.0-3.2); LYMPHOCYTES % 6.7 % (18.0-39.1); MEAN CORPUSCULAR HGB CONC 28.8 g/dL (31-35); MEAN CORPUSCULAR VOLUME 104.2 fL (81-99); MONOCYTES # (AUTO) 1.5 (0.2-0.8); MONOCYTES % 8.7 % (4.4-11.3); NEUTROPHILS # (AUTO) 12.9 (2.1-6.9); PLATELET COUNT 178 x10e3/uL (140-360); RED CELL DISTRIBUTION WIDTH 16.4 % (11.7-14.4)
[2020-05-01 06:46] LABS: ALBUMIN 2.9 g/dL (3.5-5.0); ALBUMIN/GLOBULIN RATIO 0.5 (0.8-2.0); ANION GAP 26.6 mmol/L (8-16); CALCIUM 10.3 mg/dL (8.4-10.2); CREATININE, SERUM 8.47 mg/dL (0.72-1.25); POTASSIUM 4.6 mmol/L (3.5-5.1)
[2020-05-01] MEDS: ACETYLCYSTEINE 200 MG/ML 4ML VIAL INH SCH ×2 (07:15→19:00)
[2020-05-01] MEDS: BALSAM PERU/CASTOR OIL 60 GM OINT...G. TP SCH (10:53)
[2020-05-01 13:10] LABS: ABG HCO3 27 mmol/L (22-26); ABG PCO2 40 mmHg (35-45); ABG PH 7.43 (7.35-7.45); ABG PO2 86 mmHg (80-105); ABG TCO2 28
[2020-05-01] MEDS: HEPARIN SOD (PORCINE) 5,000 UNIT/ML VIAL SC SCH (13:36)
[2020-05-01] MEDS: PANTOPRAZOLE 40 MG 10ML VIAL IV SCH (13:45)
[2020-05-01 14:53] LABS: BASOPHILS # (AUTO) 0.2 (0.0-0.1); BASOPHILS % 0.9 % (0.0-1.0); EOSINOPHILS # (AUTO) 0.7 (0.0-0.4); EOSINOPHILS % 3.4 % (0.0-6.0); HEMATOCRIT 44.2 % (38.2-49.6); HEMOGLOBIN 12.7 g/dL (14.0-18.0); LYMPHOCYTES # (AUTO) 0.9 (1.0-3.2); LYMPHOCYTES % 4.2 % (18.0-39.1); MEAN CORPUSCULAR HEMOGLOBIN 30.2 pg (28-32); MEAN CORPUSCULAR HGB CONC 28.7 g/dL (31-35); MONOCYTES # (AUTO) 1.6 (0.2-0.8); MONOCYTES % 7.6 % (4.4-11.3); NEUTROPHILS # (AUTO) 16.5 (2.1-6.9); NEUTROPHILS % 81.3 % (38.7-80.0); PLATELET COUNT 160 x10e3/uL (140-360); RED BLOOD COUNT 4.21 x10e6/uL (4.3-5.7); RED CELL DISTRIBUTION WIDTH 16.5 % (11.7-14.4)
[2020-05-01 15:08] LABS: INR 1.04; PROTHROMBIN TIME 14.2 seconds (11.9-14.5)
[2020-05-01 15:17] LABS: ALBUMIN 2.8 g/dL (3.5-5.0); ALBUMIN/GLOBULIN RATIO 0.5 (0.8-2.0); ANION GAP 23.5 mmol/L (8-16); CALCIUM 9.4 mg/dL (8.4-10.2); CREATININE, SERUM 5.06 mg/dL (0.72-1.25); POTASSIUM 4.5 mmol/L (3.5-5.1)
[2020-05-01 15:20] LABS: ANISOCYTOSIS SLIGHT; BAND NEUTROPHILS % (MANUAL) 6 %; EOSINOPHILS % (MANUAL) 3 % (0-7); LYMPHOCYTES % (MANUAL) 10 % (19-48); MONOCYTES % (MANUAL) 6 % (3.4-9.0); NEUTROPHILS % (MANUAL) 75 % (40-74); PLATELET ESTIMATE ADEQUATE; PLATELET MORPHOLOGY COMMENT NORMAL
[2020-05-01] MEDS ORDERED: VANCOMYCIN 750MG/NS 150ML IVPB 150 ML IV SCH (18:00)
[2020-05-02] VITALS (9 sets, daily range): BP systolic 134–189; BP diastolic 71–90
[2020-05-02] MEDS ORDERED: SODIUM CHLORIDE 0.9% 50ML 0 ML ONE (00:27)
[2020-05-02] MEDS ORDERED: IOPAMIDOL 370 MG/ML 200 ML INFUS..BTL INJ ONE (00:27)
[2020-05-02] MEDS: ALBUTEROL/IPRATROPIUM 3 ML NEB NEB SCH ×4 (01:00→19:30)
[2020-05-02] MEDS: INSULIN LISPRO 100 UNIT/1 ML 3ML VIAL SQ SCH ×4 (02:01→18:00)
[2020-05-02 05:44] LABS: BASOPHILS # (AUTO) 0.2 (0.0-0.1); EOSINOPHILS % 5.2 % (0.0-6.0); HEMATOCRIT 42.2 % (38.2-49.6); LYMPHOCYTES # (AUTO) 1.4 (1.0-3.2); LYMPHOCYTES % 7.7 % (18.0-39.1); MEAN CORPUSCULAR HEMOGLOBIN 29.4 pg (28-32); MEAN CORPUSCULAR HGB CONC 28.4 g/dL (31-35); MEAN CORPUSCULAR VOLUME 103.4 fL (81-99); MONOCYTES # (AUTO) 1.8 (0.2-0.8); MONOCYTES % 9.7 % (4.4-11.3); NEUTROPHILS # (AUTO) 13.5 (2.1-6.9); NEUTROPHILS % 74.2 % (38.7-80.0); PLATELET COUNT 164 x10e3/uL (140-360); RED BLOOD COUNT 4.08 x10e6/uL (4.3-5.7); RED CELL DISTRIBUTION WIDTH 16.6 % (11.7-14.4)
[2020-05-02] MEDS: PANTOPRAZOLE 40 MG 10ML VIAL IV SCH (09:00)
[2020-05-02 11:25] LABS: ANISOCYTOSIS SLIGHT; HYPOCHROMASIA SLIGHT; STOMATOCYTES SLIGHT
[2020-05-02 11:26] LABS: PLATELET ESTIMATE ADEQUATE; PLATELET MORPHOLOGY COMMENT NORMAL; RBC MORPHOLOGY COMMENT ABNORMAL
[2020-05-02] MEDS: HYDRALAZINE HCL 20 MG/ML VIAL IV PRN (13:49)
[2020-05-02] MEDS: PIPERACILLIN/TAZO 2.25 GM 50 ML IV SCH ×3 (14:00→20:23)
[2020-05-02] MEDS: BALSAM PERU/CASTOR OIL 60 GM OINT...G. TP SCH (18:20)
[2020-05-03] VITALS (8 sets, daily range): BP systolic 137–178; BP diastolic 73–87
[2020-05-03] MEDS: INSULIN LISPRO 100 UNIT/1 ML 3ML VIAL SQ SCH ×4 (00:29→17:25)
[2020-05-03] MEDS: PIPERACILLIN/TAZO 2.25 GM 50 ML IV SCH ×3 (06:18→22:31)
[2020-05-03 06:26] LABS: BASOPHILS # (AUTO) 0.2 (0.0-0.1); BASOPHILS % 1.2 % (0.0-1.0); EOSINOPHILS # (AUTO) 1.6 (0.0-0.4); EOSINOPHILS % 10.1 % (0.0-6.0); HEMATOCRIT 41.8 % (38.2-49.6); HEMOGLOBIN 12.1 g/dL (14.0-18.0); LYMPHOCYTES # (AUTO) 1.4 (1.0-3.2); MEAN CORPUSCULAR HEMOGLOBIN 29.9 pg (28-32); MEAN CORPUSCULAR HGB CONC 28.9 g/dL (31-35); MEAN CORPUSCULAR VOLUME 103.2 fL (81-99); MONOCYTES # (AUTO) 1.4 (0.2-0.8); MONOCYTES % 9.2 % (4.4-11.3); NEUTROPHILS # (AUTO) 10.6 (2.1-6.9); NEUTROPHILS % 68.4 % (38.7-80.0); PLATELET COUNT 186 x10e3/uL (140-360); RED BLOOD COUNT 4.05 x10e6/uL (4.3-5.7); RED CELL DISTRIBUTION WIDTH 16.3 % (11.7-14.4)
[2020-05-03] MEDS: ALBUTEROL/IPRATROPIUM 3 ML NEB NEB SCH ×2 (07:23→20:25)
[2020-05-03] MEDS: PANTOPRAZOLE 40 MG 10ML VIAL IV SCH ×2 (09:00→09:21)
[2020-05-03] MEDS: FLUCONAZOLE 100 MG TAB PO SCH (09:21)
[2020-05-03] MEDS: BALSAM PERU/CASTOR OIL 60 GM OINT...G. TP SCH (09:22)
[2020-05-03 10:00] LABS: CALCIUM 10.1 mg/dL (8.4-10.2); CREATININE, SERUM 8.34 mg/dL (0.72-1.25)
[2020-05-03 13:30] LABS: ABG HCO3 28 mmol/L (22-26); ABG PCO2 50 mmHg (35-45); ABG PH 7.36 (7.35-7.45); ABG PO2 104 mmHg (80-105); ABG TCO2 30
[2020-05-03] MEDS ORDERED: CLONIDINE HCL 0.1 MG/24 HR 1 EA PATCH TOP SCH (13:45)
[2020-05-03] MEDS ORDERED: SODIUM CHLORIDE 0.9% 250ML 250 ML ONE (21:13)
[2020-05-04] VITALS (7 sets, daily range): BP systolic 155–179; BP diastolic 71–94
[2020-05-04] MEDS: ALBUTEROL/IPRATROPIUM 3 ML NEB NEB SCH ×3 (01:00→13:00)
[2020-05-04] MEDS: PIPERACILLIN/TAZO 2.25 GM 50 ML IV SCH ×2 (05:37→13:27)
[2020-05-04] MEDS: INSULIN LISPRO 100 UNIT/1 ML 3ML VIAL SQ SCH ×3 (05:38→13:31)
[2020-05-04 06:33] LABS: BASOPHILS # (AUTO) 0.2 (0.0-0.1); BASOPHILS % 1.1 % (0.0-1.0); EOSINOPHILS # (AUTO) 1.9 (0.0-0.4); EOSINOPHILS % 12.4 % (0.0-6.0); HEMATOCRIT 39.4 % (38.2-49.6); HEMOGLOBIN 11.6 g/dL (14.0-18.0); LYMPHOCYTES # (AUTO) 1.2 (1.0-3.2); LYMPHOCYTES % 7.9 % (18.0-39.1); MEAN CORPUSCULAR HEMOGLOBIN 30.4 pg (28-32); MEAN CORPUSCULAR HGB CONC 29.4 g/dL (31-35); MEAN CORPUSCULAR VOLUME 103.1 fL (81-99); MONOCYTES # (AUTO) 0.8 (0.2-0.8); MONOCYTES % 5.4 % (4.4-11.3); NEUTROPHILS # (AUTO) 11.2 (2.1-6.9); NEUTROPHILS % 71.9 % (38.7-80.0); PLATELET COUNT 179 x10e3/uL (140-360); RED BLOOD COUNT 3.82 x10e6/uL (4.3-5.7); RED CELL DISTRIBUTION WIDTH 16.4 % (11.7-14.4)
[2020-05-04 07:08] LABS: ALBUMIN 2.5 g/dL (3.5-5.0); ALBUMIN/GLOBULIN RATIO 0.4 (0.8-2.0); ALKALINE PHOSPHATASE 176 IU/L (40-150); ANION GAP 23.8 mmol/L (8-16); BLOOD UREA NITROGEN 110 mg/dL (7-26); BUN/CREATININE RATIO 13 (6-25); CALCIUM 9.6 mg/dL (8.4-10.2); CARBON DIOXIDE 25 mmol/L (22-29); CHLORIDE 100 mmol/L (98-107); CREATININE, SERUM 8.33 mg/dL (0.72-1.25); EST GLOMERULAR FILTRATION RATE 7 ML/MIN (60-); GLUCOSE 230 mg/dL (74-118); POTASSIUM 4.8 mmol/L (3.5-5.1); SODIUM 144 mmol/L (136-145)
[2020-05-04 07:35] LABS: ALANINE AMINOTRANSFERASE < 6 IU/L (0-55)
[2020-05-04] MEDS: PANTOPRAZOLE 40 MG 10ML VIAL IV SCH (09:18)
[2020-05-04] MEDS: FLUCONAZOLE 100 MG TAB PO SCH (09:18)
[2020-05-04] MEDS: BALSAM PERU/CASTOR OIL 60 GM OINT...G. TP SCH (14:44)
== END 2020-05-04 21:01 | disposition hospice, inpatient (51) | DRG 871 ==
LOC: ER 11:34 → ERHOLD 11:40 → ICU 22:15 → IMCU 04-30 02:44
PROC: 5A1945Z Respiratory Ventilation, 24-96 Consecutive Hours (ICD-10-PCS; principal; 2020-04-24)
PROC: 0BH17EZ Insertion of Endotracheal Airway into Trachea, Via Natural or Artificial Opening (ICD-10-PCS; 2020-04-24)
PROC: 5A1D70Z Performance of Urinary Filtration, Intermittent, Less than 6 Hours Per Day (ICD-10-PCS; 2020-04-24)
PROC: 5A1D70Z Performance of Urinary Filtration, Intermittent, Less than 6 Hours Per Day (ICD-10-PCS; 2020-04-26)
PROC: 5A1D70Z Performance of Urinary Filtration, Intermittent, Less than 6 Hours Per Day (ICD-10-PCS; 2020-04-28)
PROC: 5A1D70Z Performance of Urinary Filtration, Intermittent, Less than 6 Hours Per Day (ICD-10-PCS; 2020-05-01)
PROC: 5A1D70Z Performance of Urinary Filtration, Intermittent, Less than 6 Hours Per Day (ICD-10-PCS; 2020-05-03)
DX: A41.9 Sepsis, unspecified organism (principal); J96.02 Acute respiratory failure with hypercapnia; I50.43 Acute on chronic combined systolic (congestive) and diastolic (congestive) heart failure; E43 Unspecified severe protein-calorie malnutrition; N18.6 End stage renal disease; J69.0 Pneumonitis due to inhalation of food and vomit; G92 Toxic encephalopathy; B37.1 Pulmonary candidiasis; J15.212 Pneumonia due to Methicillin resistant Staphylococcus aureus; N39.0 Urinary tract infection, site not specified; I13.2 Hypertensive heart and chronic kidney disease with heart failure and with stage 5 chronic kidney disease, or end stage renal disease; Z68.1 Body mass index [BMI] 19.9 or less, adult; J98.19 Other pulmonary collapse; R65.20 Severe sepsis without septic shock; E11.22 Type 2 diabetes mellitus with diabetic chronic kidney disease; E87.5 Hyperkalemia; Z83.3 Family history of diabetes mellitus; D63.1 Anemia in chronic kidney disease; Z89.421 Acquired absence of other right toe(s); E83.41 Hypermagnesemia; R13.10 Dysphagia, unspecified; E11.21 Type 2 diabetes mellitus with diabetic nephropathy; Z66 Do not resuscitate; Z79.4 Long term (current) use of insulin
CPT/HCPCS: 31500; 36415; 36600; 51700; 70450; 71045; 74018; 80048; 80053; 80202; 82550; 82553; 82805; 82947; 82948; 83605; 83735; 83880; 84100; 84484; 85025; 85610; 85730; 86706; 87040; 87070; 87086; 87186; 87205; 87340; 90962; 93005; 94002; 94003; 94640; 94660; 94668; 96372; 97139; 99251; 99285; J0360; J0610; J1644; J2060; J2150; J2250; J2543; J3370; J7030; J7050; Q9967; U0002